=== PATIENT | female | born 1940 | race Caucasian/White ===

== ENCOUNTER 2018-05-21 22:21 | Inpatient (IN) | payer MEDICARE, SELFPAY ==
[2018-05-21 22:23] VITALS: BP 121/101; PULSE 150; RESP 17; TEMP 36.8; O2SAT 96; BMI 28.7
--- NOTE | 2018-05-21 22:44 | EKG12_ITS ---
Test Reason : A-FIB Blood Pressure : / mmHG Vent. Rate : 164 BPM Atrial Rate : 192 BPM P-R Int : 000 ms QRS Dur : 086 ms QT Int : 296 ms P-R-T Axes : 000 088 215 degrees QTc Int : 488 ms Atrial fibrillation with rapid ventricular response ST & T wave abnormality, consider inferior ischemia Abnormal ECG Confirmed by ANTHONY WARD, LAMONT ([id number]), subeditor BETTY JORDAN ([id number]) on 05/24/2018 9:06:59 AM Referred By: LOBO Confirmed By:LAMONT CRUZ MD
--- NOTE | 2018-05-21 22:50 | RAD_ITS ---
STUDY: X-RAY CHEST REASON FOR EXAM: Female, 77 years old. Open heart surgery on April 16, tachycardia, A. fib TECHNIQUE: PA and lateral views of the chest. COMPARISON: None. FINDINGS: orchid grower leads are seen. There is a right perihilar infiltrate. There is a small left-sided effusion. The heart size is borderline. Status post sternotomy changes are seen. An atrial appendage clip is noted. Normal mediastinum and elana. Normal visualized pulmonary arteries. Normal visualized aortic arch and descending thoracic aorta. Normal visualized thoracic spine. Normal visualized ribs, clavicles, and shoulders. There is no demonstrated abnormality of the visualized soft tissue structures of the upper abdomen. RAD/Chest PA and Lateral IMPRESSION: Small left-sided effusion. Borderline heart size. Status post sternotomy. An atrial appendage clip is seen. Right perihilar infiltrate. Electronically Signed: Corky Harper MD at 23:01 EST , Service support ,
[2018-05-21] MEDS: dilTIAZem 25 MG/5 ML Vial 20 MG IV BOLUS (22:56)
--- NOTE | 2018-05-21 23:00 | ED.RN ---
no old EKG on record
[2018-05-21 23:15] LABS: Absolute Lymphocyte Count 0.97 X10^3/ul (0.83-4.51); Basophil# 0.12 X10^3/uL; Eosinophil# 0.25 X10^3/uL; Eosinophils% 4.2 % (0-5); Hematocrit 32.3 % (37-47); Lymphocyte # 0.97 X10^3/ul (4.0); Lymphocyte % 16.2 % (19-41); Mean Corpuscular Hgb 27.9 pg (27.0-32.0); Mean Corpuscular Volume 90.2 fL (81-99); Mean Platelet Vol. 9.5 fl (6.2-12.0); Monocyte# 0.64 X10^3/uL; Monocyte% 10.7 % (0-10); Neutrophil # 4.01 X10^3/uL (2.7-7.7); Neutrophil % 66.7 % (47-70); Platelet Count 265 K/mm3 (150-450); RBC Distribution Width CV 14.7 % (11.6-14.6); RBC Distribution Width SD 47.4 fl (35.1-43.9); Red Blood Count 3.58 M/mm3 (4.2-5.4)
[2018-05-21 23:16] LABS: POSITIVE COUNT NO; POSITIVE DIFFERENTIAL NO; POSITIVE MORPHOLOGY NO
[2018-05-21 23:21] LABS: Anion Gap 12 (5-15); BUN 13 mg/dL (7-18); BUN/Creat Ratio 15.9 RATIO (10-20); Calcium,Total 8.5 mg/dL (8.5-10.1); Chloride 109 mmol/L (98-107); Creatinine, Serum 0.82 mg/dL (0.55-1.02); EST Glomerular Filtration Rate 72 mL/min (>60); Est Glom Filt Rate - Afr Amer 88 mL/min (>60); Estimated Creatinine Clearance 46.88 ml/min; Glucose 129 mg/dL (74-106); Potassium 3.8 mmol/L (3.5-5.1); Sodium Level 144 mmol/L (136-145)
--- NOTE | 2018-05-21 23:47 | ED.RN ---
Dr. Perez paged for cardiology
--- NOTE | 2018-05-21 23:57 | HP.PCM_ITS ---
Problem List (1) Atrial fibrillation with RVR Status: Acute (2) History of mitral valve replacement Status: Chronic (3) History of maze procedure Status: Chronic (4) Pneumonia Status: Acute Qualifiers: Laterality: right Lung location: middle lobe of lung History of Present Illness Date of Admission: 05/21/18 Chief Complaint: rapid heart rate The patient is a 77 year old female patient with a recent history for mitral valve replacement and maze procedure with atrial appendage ligation presents to the ER with a rapid heart rate. Despite recent increase in amiodarone to 200mg TID she has a rate of 160 at presentation. With IV Cardizem she has responded and rate is now 100. She denies chest pain. She is a little short of breath, chest x ray reveal a right hilar infiltrate. ER physician has requested admission for observation for rate control. Her merchant mill utility worker in [place] request staring po Cardizem in addition to her amiodarone. Initial Troponin is slightly elevate but recent heart cath was negative for CAD. Past Medical History Past Medical History (Chronic Problems): Chronic Problems History of mitral valve replacement (Chronic) History of maze procedure (Chronic) Allergies No Known Allergies Allergy (Verified 05/21/18 22:23) Home Medications: Ambulatory Orders Medication Instructions Recorded Acetaminophen 650 mg PO Q4H PRN 05/21/18 Albuterol IH (ProAir) [Proair Hfa 2 puff INHALATION Q6H PRN PRN 05/21/18 (SP)Vent Pts] Alendronate Sodium [Fosamax] 70 mg PO QWEEK 05/21/18 Amiodarone HCl 200 mg PO TID 05/21/18 Ascorbic Acid [Vitamin C] 500 mg PO BID 05/21/18 Aspirin [Aspirin, Baby] 81 mg PO DAILY@0800 05/21/18 Atorvastatin Calcium 10 mg PO DAILY 05/21/18 Biotin/Silicon Diox/l-Cysteine 1 each PO DAILY 05/21/18 [[place] Matrix 5000 ER Tablet] Ishaan/D3/Mag11/Zinc/Filler Mixer/Papito/Bor 1 each PO DAILY 05/21/18 [Caltrate 600+D Plus Tablet] Cholecalciferol (VIT D3) [Vitamin 1,000 unit PO DAILY 05/21/18 D] Cholestyramine (with Sugar) 4 gm PO DAILY 05/21/18 [Questran Packet] Cyanocobalamin (Vitamin B-12) 1,000 mcg SL DAILY 05/21/18 [Vitamin B-12] Ferrous Sulfate 325 mg PO BIDCM 05/21/18 Gabapentin [Neurontin] 200 mg PO QHS 05/21/18 Melatonin 3 mg PO QHS PRN PRN 05/21/18 Metoprolol Tartrate 25 mg PO Q8H 05/21/18 Multivitamin [Multivitamins] 1 each PO DAILY 05/21/18 Pramipexole Di-HCl [Pramipexole 0.25 mg PO QHS 05/21/18 Dihydrochloride] Warfarin [Coumadin (PBKC)] 0.5 mg PO MOWEFR 05/21/18 Surgical History: - - mitral valve Smoking Status: Never smoker - *Family History Maternal History Items: No pertinent history Review of Systems Constitutional: Reports: Fatigue. Denies: Chills, Fever, Weight Change HEENT: Denies: Head Aches, Sinus Congestion, Sinus Drainage Cardiovascular: Reports: Palpitations. Denies: Chest Pain Respiratory: Reports: Cough, Shortness of Breath. Denies: Shortness of breath at rest, Sputum production Gastrointestinal: Denies: Abdominal Pain, Nausea, Vomiting Genitourinary: Denies: Dysuria Musculoskeletal: Denies: Joint Pain, Joint Tenderness Skin: Denies: Rash, Wounds Neurological: Denies: Numbness, Tingling, Focal weakness Psychiatric: Denies: Anxiety, Depression, Homicidal Ideations, Suicidal Ideations Hematologic/ Lymphatic: Denies: Easy Bruising, Easy Bleeding VTE Information - Inpt Only VTE Present on Admission: No VTE Mechan Device Prophylaxis: None VTE Pharm Prophylaxis ordered?: Yes Patient Problems: Active and Suspected Problems Atrial fibrillation with RVR (Acute) Pneumonia (Acute) - Physical Exam General: Alert, Oriented x3, Cooperative HEENT: Atraumatic, Normocephalic Neck: Supple Lungs: Clear to auscultation, Normal air movement, No rhonchi, No wheeze, No rales Cardiovascular: Normal S1, Normal S2, Irregular Rate, Tachycardic Abdomen: Bowel Sounds Present, Soft Extremities: No edema, Capillary Refill Less than 3 Seconds Skin: No rashes Musculoskeletal: No Tenderness to Palpation of Joints or Extremities Neurological: Neuro grossly intact Psych/Mental Status: Normal Affect, Appropriate Vital Signs Temp Pulse Resp BP Pulse Ox 98.3 F 150 H 17 121/101 H 96 05/21/18 22:23 05/21/18 22:23 05/21/18 22:23 05/21/18 22:23 05/21/18 22:23 Oxygen Delivery Method Room Air Weight: 156 lb 15.506 oz Body Mass Index (BMI) 28.7 Laboratory Tests Past 24 Hrs 05/21/18 05/21/18 22:40 22:40 WBC 6.0 RBC 3.58 L Hgb 10.0 L Hct 32.3 L MCV 90.2 MCH 27.9 MCHC 31.0 L RDW 14.7 H RDW Differential 47.4 H Plt Count 265 MPV 9.5 Immature Gran % (Auto) 0.200 Neut % (Auto) 66.7 Lymph % (Auto) 16.2 L [place] % (Auto) 10.7 H Eos % (Auto) 4.2 Baso % (Auto) 2.0 H Absolute Neuts (auto) 4.0 Absolute Lymphs (auto) 0.97 Total Counted Not Reportable Sodium 144 Potassium 3.8 Chloride 109 H Carbon Dioxide 23.0 Anion Gap 12 BUN 13 Creatinine 0.82 Estim Creat Clear Calc 46.88 Est GFR (MDRD) Af Amer 88 Est GFR (MDRD) Non-Af 72 BUN/Creatinine Ratio 15.9 Glucose 129 H Calcium 8.5 Troponin I 0.091 H Assessment/Plan All Active Problems Atrial fibrillation with RVR (Acute) Pneumonia (Acute) Plan 1. Pneumonia-- IV Rocephin and Azithromycin, DuoNeb inh q 4hrs prn 2. Atrial fibrillation with RVR-- monitor for rate control, continue po Cardizem at DC, cycle cardiac enzymes, cbc,bmp in am- continue anticoagulation 3. TIRSH --use home CPAP 4. DVT prohylaxis -- cont antcoagulation DC home tomorrow on PO antibiotics and po Cardizem if rate controlled Code Visit OBSV E&M: 92318 Initial observation care L2
[2018-05-22] VITALS (16 sets, daily range): BP systolic 101–110; BP diastolic 52–70; PULSE 94–130; RESP 17–18; TEMP 36.8–37.4; O2SAT 95–99; BMI 27.0; BMI 27.1
--- NOTE | 2018-05-22 00:04 | ED.DCSUM_ITS ---
- ER Visit Summary Date of Service: 05/22/18 Chief Complaint: A. fib History of Present Illness: The patient is a 77 F who presents with atrial fibrillation. This is a relatively new diagnosis from March. On April 16 she had a mitral valve replacement, Maze procedure, atrial appendage ligation. Her sister is an RN and has been monitoring her heart rate at home. Over the last 9-10 days she has been having some tachycardia with heart rates of 110-120s occasionally as high as 130. Tonight she was as high as 140s and 150s. She spoke to the nurse practitioner for her surgeon who also contacted Dr. Perez her tying in machine operator who increased her amiodarone from 200 mg a day to 200 mg 3 times a day. Patient denies any chest pain or shortness of breath. She has had some mild rhinorrhea and nonproductive cough no fevers chest pain shortness of breath vomiting. Physical Examination: Heart rate 150 vitals otherwise unremarkable Moist mucous membranes Heart irregularly irregular and tachycardic without murmur Lungs are clear and I do not appreciate rales rhonchi wheezes Abdomen soft Extremities nontender without edema Alert Test Results: EKG shows atrial fibrillation at a rate of 164, no old to compare to. Labs notable for troponin of 0.09. Chest x-ray shows a small left-sided effusion atrial appendage clip and right perihilar infiltrate. Emergency Department Course and Treatment: Patient was given 20 mg of IV Cardizem and on reevaluation is rate controlled in the 80s and 90s. Her troponin is likely just rate related. She has no known coronary disease. Given focal infiltrate I do suspect this is pneumonia although she does not have fever or leukocytosis. She does have some cough. She was given IV Zosyn and vancomycin for healthcare associated pneumonia. I spoke to Dr. Perez, her tying in machine operator. He recommended starting low-dose Cardizem at 30 mg twice a day. I spoke to the hospitalist as given she also possibly has pneumonia and slight elevation of her troponin I felt that she she will at least have serial enzymes and be monitored. Treatment Plan: [] Disposition: Admit Impression: A. fib with RVR HCAP Indeterminate troponin This note was generated with [employer] dictation software. It may contain incorrect words, spelling, and punctuation that were not noted in review of the chart prior to signing ED Disposition - Plan for ED Patient: Chief Complaint: Palpitations Referrals: Town Doctor,Out of [Primary Care Provider] -
[2018-05-22 00:22] LABS: Prothrombin Time (Protime)PT. 22.6 SECONDS (11.7-14.9)
[2018-05-22] MEDS: dilTIAZem 30 MG Tablet PO ×3 (00:32→22:15)
[2018-05-22] MEDS: Vancomycin IV 1,000 MG/200 ML BAG 200 MG IV (00:34)
[2018-05-22 04:49] LABS: International Normalized Ratio 2.2; Prothrombin Time (Protime)PT. 24.4 SECONDS (11.7-14.9)
[2018-05-22 05:10] LABS: ALB/GLOB Ratio 0.8 RATIO (0.9-2.4); AST(SGOT) 7 U/L (15-37); Alanine Aminotransfer ALT/SGPT 17 U/L (13-56); Albumin, Serum 2.5 g/dL (3.2-5.0); Alkaline Phosphatase 99 U/L (45-117); Anion Gap 9 (5-15); BUN 11 mg/dL (7-18); BUN/Creat Ratio 14.4 RATIO (10-20); Calcium,Total 8.1 mg/dL (8.5-10.1); Chloride 110 mmol/L (98-107); Cholesterol 60 mg/dL (200); Creatinine, Serum 0.76 mg/dL (0.55-1.02); EST Glomerular Filtration Rate 78 mL/min (>60); Est Glom Filt Rate - Afr Amer 95 mL/min (>60); Estimated Creatinine Clearance 38.44 ml/min; Globulin 3.3 g/dL (2.2-4.2); Glucose 90 mg/dL (74-106); High Density Lipoprotein 28 mg/dL; Potassium 3.3 mmol/L (3.5-5.1); Protein, Total 5.8 g/dL (6.4-8.2); Sodium Level 143 mmol/L (136-145); Triglycerides 57 mg/dL; Very Low Density Lipoprotein 11 mg/dL (5-40)
[2018-05-22] MEDS: 0.9% NaCl Peripheral Flush Adult/Peds IV ×4 (06:17→21:20)
[2018-05-22] MEDS: Amiodarone 200 MG Tablet PO ×3 (06:17→22:15)
[2018-05-22] MEDS: Metoprolol Tartrate 25 MG Tablet PO ×3 (06:17→22:15)
[2018-05-22] MEDS: Aspirin 81 MG TAB.CHEW PO (09:09)
[2018-05-22] MEDS: Cyanocobalamin 500 MCG Tablet 1000 MCG PO (09:10)
[2018-05-22] MEDS: Ferrous Sulfate 325 MG Tablet PO ×2 (09:10→16:39)
[2018-05-22] MEDS: Multivitamins,Therapeutic Tablet 1 TABLET PO (09:10)
[2018-05-22] MEDS: Calcium Carb/Vitamin D 1 TABLET Tablet PO (09:10)
--- NOTE | 2018-05-22 10:45 | NURSING ---
Patient reports that IV site is painful with antibiotic infusing. Attempted to restart x1 without success. Patient is a difficult IV start. CHIEF PRIVACY OFFICER to attempt IV start. Per CHIEF PRIVACY OFFICER, attempted to start IV x2 without success. Another RN to attempt IV start. Second CHIEF PRIVACY OFFICER attempted IV start without success.
--- NOTE | 2018-05-22 11:15 | NURSING ---
supervisor testing in PCU. Attempted IV start. See IV round for documentation
[2018-05-22] MEDS: Ascorbic Acid 500 MG Tablet PO ×2 (11:36→21:20)
[2018-05-22 11:40] LABS: Magnesium 1.9 mg/dL (1.6-2.6)
--- NOTE | 2018-05-22 12:13 | CM.UR ---
Met face to face with patient. Introduced myself and explained my role. Verbally consented to assessment. DENIES any needs anticipated. Then mentioned that she needs new cpap mask because she switched insurance at beginning of year. States that the old company is not in-network with new insurance. Printed list of companies for her. States that she has been thinking about advance directives but haven't done anything as of yet. DECLINES any information or forms at this time. Instructed that case management will remain available should anything arise. verb understanding. Lelia Jang RN, CCM.
[2018-05-22] MEDS: Ceftriaxone 1 GM/50 ML BAG IV (12:41)
[2018-05-22] MEDS: Cholestyramine/Sucrose 4 GM/PACKET PO (12:45)
--- NOTE | 2018-05-22 18:06 | PCM.PN.HOSP ---
Patient Problems: Active and Suspected Problems Atrial fibrillation with RVR (Acute) Pneumonia (Acute) Subjective: Patient was seen and examined. Remains still in A. fib with RVR. Off Cardizem drip. BP remains relatively low. Denies chest pain, SOB, palpitations. Vitals/I&O's: Vital Signs Temp Pulse Resp BP Pulse Ox 98.2 F 106 H 17 108/60 95 05/22/18 13:59 05/22/18 15:09 05/22/18 13:59 05/22/18 13:59 05/22/18 13:59 Oxygen Flow Rate (L/min) 2 Oxygen Delivery Method Room Air Weight: 67.1 kg Body Mass Index (BMI) 27.0 Intake and Output for Last 24 Hours 05/20/18 05/21/18 05/22/18 23:59 23:59 23:59 Intake Total 1644 / 1644 Balance 1644 / 1644 General: Alert, Oriented x3, Cooperative, No apparent distress HEENT: Atraumatic, PERRLA, EOMI, Normocephalic Oral: Moist Mucosa Neck: Supple, No JVD, Negative Carotid Bruits Lungs: Clear to auscultation, Normal air movement Cardiovascular: Regular Rhythm, Normal S1, Normal S2, Irregular Rate, Murmur - 3/6 holosystolic murmur, - - midsternal scar, healing, scabbing, no erythema Abdomen: Bowel Sounds Present, Soft, Non Tender, Non-Distended, No Hepato-splenomegaly Extremities: No edema Skin: No rashes, No breakdown Musculoskeletal: No Tenderness to Palpation of Joints or Extremities Lymphatic: No Cervical, Supraclavicular, or Inguinal Adenopathy Neurological: Cranial nerves II-XII grossly intact, Neuro grossly intact Psych/Mental Status: Normal Affect, Appropriate Laboratory Results 05/21/18 22:40: WBC 6.0, RBC 3.58 L, Hgb 10.0 L, Hct 32.3 L, MCV 90.2, MCH 27.9, MCHC 31.0 L, RDW 14.7 H, RDW Differential 47.4 H, Plt Count 265, MPV 9.5, Immature Gran % (Auto) 0.200, Neut % (Auto) 66.7, Lymph % (Auto) 16.2 L, [place] % (Auto) 10.7 H, Eos % (Auto) 4.2, Baso % (Auto) 2.0 H, Absolute Neuts (auto) 4.0, Absolute Lymphs (auto) 0.97, Total Counted Not Reportable 05/21/18 22:40: Sodium 144, Potassium 3.8, Chloride 109 H, Carbon Dioxide 23.0, Anion Gap 12, BUN 13, Creatinine 0.82, Estim Creat Clear Calc 46.88, Est GFR (MDRD) Af Amer 88, Est GFR (MDRD) Non-Af 72, BUN/Creatinine Ratio 15.9, Glucose 129 H, Calcium 8.5, Troponin I 0.091 H 05/21/18 22:40: PT 22.6 H, INR 2.0 05/22/18 02:00: Troponin I 0.106 H 05/22/18 04:30: PT 24.4 H, INR 2.2 05/22/18 04:30: Sodium 143, Potassium 3.3 L, Chloride 110 H, Carbon Dioxide 24.0, Anion Gap 9, BUN 11, Creatinine 0.76, Estim Creat Clear Calc 38.44, Est GFR (MDRD) Af Amer 95, Est GFR (MDRD) Non-Af 78, BUN/Creatinine Ratio 14.4, Glucose 90, Calcium 8.1 L, Total Bilirubin 0.60, AST 7 L, ALT 17, Alkaline Phosphatase 99, Total Protein 5.8 L, Albumin 2.5 L, Globulin 3.3, Albumin/Globulin Ratio 0.8 L, Triglycerides 57, Cholesterol 60, LDL Cholesterol 21, VLDL Cholesterol 11, HDL Cholesterol 28 L 05/22/18 04:30: Troponin I 0.094 H 05/22/18 04:30: Magnesium 1.9 Current Medications Acetaminophen (Tylenol) 650 mg PO Q4H PRN PRN PRN Reason: PAIN Albuterol Sulfate (Ventolin Aerosols) 2.5 mg INHALATION Q4H PRN PRN Amiodarone HCl (Cordarone) 200 mg PO TID [facility] Last Admin: 05/22/18 14:09 Dose: 200 mg Ascorbic Acid (Vitamin C) 500 mg PO BID [facility] Last Admin: 05/22/18 11:36 Dose: 500 mg Aspirin (Aspirin, Baby) 81 mg PO DAILY@0800 [facility] Last Admin: 05/22/18 09:09 Dose: 81 mg Atorvastatin Calcium (Lipitor) 10 mg PO QHS [facility] Calcium/Vitamin D (Os-Ishaan 500mg + D) [facility] Last Admin: 05/22/18 09:10 Dose: 1 tablet Cholecalciferol (Vitamin D) 1,000 unit PO DAILY [facility] Last Admin: 05/22/18 09:10 Dose: 1,000 unit Cholestyramine Resin (Questran 4gm Packet) 4 gm PO DAILY [facility] Last Admin: 05/22/18 12:45 Dose: 4 gm Cyanocobalamin (Vitamin B12) 1,000 mcg PO DAILY [facility] Last Admin: 05/22/18 09:10 Dose: 1,000 mcg Diltiazem HCl (Cardizem) 30 mg PO BID [facility] Last Admin: 05/22/18 09:10 Dose: 30 mg Ferrous Sulfate (Ferrous Sulfate) [facility] Last Admin: 05/22/18 16:39 Dose: 325 mg Gabapentin (Neurontin) 200 mg PO QHS [facility] Vancomycin HCl (Vancomycin) 1,000 mg in 200 mls @ 200 mls/hr IV X1 [facility] Last Admin: 05/22/18 00:34 Dose: 200 mls/hr Azithromycin 500 mg/ Dextrose 255 mls @ 250 mls/hr IV Q24 [facility] Last Admin: 05/22/18 09:18 Dose: 250 mls/hr Ceftriaxone Sodium (Rocephin) 1 gm in 50 mls @ 100 mls/hr IV Q24 [facility] Last Admin: 05/22/18 12:41 Dose: 100 mls/hr Magnesium Hydroxide (Milk Of Magnesia) 30 ml PO DAILY PRN PRN Reason: Constipation Melatonin (Melatonin) 3 mg PO QHS PRN PRN Metoprolol Tartrate (Lopressor (Beta Bobby)) 25 mg PO Q8 [facility] Last Admin: 05/22/18 14:09 Dose: 25 mg Multivitamins (Multivitamin) 1 tablet PO DAILY@0800 [facility] Last Admin: 05/22/18 09:10 Dose: 1 tablet Nutritional Formula (Lactose Free) (Ensure Enlive) 120 ml PO 4X/DAY [facility] Last Admin: 05/22/18 16:39 Dose: 120 ml Pramipexole Dihydrochloride (Mirapex) 0.25 mg PO QHS [facility] Sodium Chloride () 5 - 15 ml IV UD PRN PRN Reason: SALINE FLUSH Last Admin: 05/22/18 09:17 Dose: 10 ml Warfarin Sodium (Coumadin (Pbkc)) 0.5 mg PO MoWeFr@1700 [facility] Medical Necessity - Tobacco Use Smoking Status: Never smoker Assessment/Plan All Active Problems Atrial fibrillation with RVR (Acute) Pneumonia (Acute) 77 year old female patient with a recent history for mitral valve replacement and maze procedure with atrial appendage ligation presents to the ER with a rapid heart rate. 1. A. fib with RVR, HR not well controlled, INR is therapeutic, recently started on cardizem, will continue on amiodarone, metoprolol, if HR is still uncontrolled, will consult cardiology 2. CAP without sepsis, POA, on ceftriaxone and azithromycin, will continue same 3. s/p recent mitral valve replacement as well as maze procedure and atrial appendage ligation 4. TRISH on CPAP 5. Hypertension, controlled, will continue to monitor. 6. DVT ppx - INR is therapeutic on warfarin Code Visit Inpatient E&M: 01799 Subs Hosp L2
--- NOTE | 2018-05-22 18:15 | PN_ITS ---
Patient Problems: Active and Suspected Problems Atrial fibrillation with RVR (Acute) Pneumonia (Acute) Subjective: Patient was seen and examined. Remains still in A. fib with RVR. Off Cardizem drip. BP remains relatively low. Denies chest pain, SOB, palpitations. Vitals/I&O's: Vital Signs Temp Pulse Resp BP Pulse Ox 98.2 F 106 H 17 108/60 95 05/22/18 13:59 05/22/18 15:09 05/22/18 13:59 05/22/18 13:59 05/22/18 13:59 Oxygen Flow Rate (L/min) 2 Oxygen Delivery Method Room Air Weight: 67.1 kg Body Mass Index (BMI) 27.0 Intake and Output for Last 24 Hours 05/20/18 05/21/18 05/22/18 23:59 23:59 23:59 Intake Total 1644 / 1644 Balance 1644 / 1644 General: Alert, Oriented x3, Cooperative, No apparent distress HEENT: Atraumatic, PERRLA, EOMI, Normocephalic Oral: Moist Mucosa Neck: Supple, No JVD, Negative Carotid Bruits Lungs: Clear to auscultation, Normal air movement Cardiovascular: Regular Rhythm, Normal S1, Normal S2, Irregular Rate, Murmur - 3/6 holosystolic murmur, - - midsternal scar, healing, scabbing, no erythema Abdomen: Bowel Sounds Present, Soft, Non Tender, Non-Distended, No Hepato- splenomegaly Extremities: No edema Skin: No rashes, No breakdown Musculoskeletal: No Tenderness to Palpation of Joints or Extremities Lymphatic: No Cervical, Supraclavicular, or Inguinal Adenopathy Neurological: Cranial nerves II-XII grossly intact, Neuro grossly intact Psych/Mental Status: Normal Affect, Appropriate Laboratory Results 05/21/18 22:40: WBC 6.0, RBC 3.58 L, Hgb 10.0 L, Hct 32.3 L, MCV 90.2, MCH 27.9, MCHC 31.0 L, RDW 14.7 H, RDW Differential 47.4 H, Plt Count 265, MPV 9.5, Immature Gran % (Auto) 0.200, Neut % (Auto) 66.7, Lymph % (Auto) 16.2 L, [place] % (Auto) 10.7 H, Eos % (Auto) 4.2, Baso % (Auto) 2.0 H, Absolute Neuts (auto) 4.0, Absolute Lymphs (auto) 0.97, Total Counted Not Reportable 05/21/18 22:40: Sodium 144, Potassium 3.8, Chloride 109 H, Carbon Dioxide 23.0, Anion Gap 12, BUN 13, Creatinine 0.82, Estim Creat Clear Calc 46.88, Est GFR (MDRD) Af Amer 88, Est GFR (MDRD) Non-Af 72, BUN/Creatinine Ratio 15.9, Glucose 129 H, Calcium 8.5, Troponin I 0.091 H 05/21/18 22:40: PT 22.6 H, INR 2.0 05/22/18 02:00: Troponin I 0.106 H 05/22/18 04:30: PT 24.4 H, INR 2.2 05/22/18 04:30: Sodium 143, Potassium 3.3 L, Chloride 110 H, Carbon Dioxide 24.0, Anion Gap 9, BUN 11, Creatinine 0.76, Estim Creat Clear Calc 38.44, Est GFR (MDRD) Af Amer 95, Est GFR (MDRD) Non-Af 78, BUN/Creatinine Ratio 14.4, Glucose 90, Calcium 8.1 L, Total Bilirubin 0.60, AST 7 L, ALT 17, Alkaline Phosphatase 99, Total Protein 5.8 L, Albumin 2.5 L, Globulin 3.3, Albumin/Globulin Ratio 0.8 L, Triglycerides 57, Cholesterol 60, LDL Cholesterol 21, VLDL Cholesterol 11, HDL Cholesterol 28 L 05/22/18 04:30: Troponin I 0.094 H 05/22/18 04:30: Magnesium 1.9 Current Medications Acetaminophen (Tylenol) 650 mg PO Q4H PRN PRN PRN Reason: PAIN Albuterol Sulfate (Ventolin Aerosols) 2.5 mg INHALATION Q4H PRN PRN Amiodarone HCl (Cordarone) 200 mg PO TID [facility] Last Admin: 05/22/18 14:09 Dose: 200 mg Ascorbic Acid (Vitamin C) 500 mg PO BID [facility] Last Admin: 05/22/18 11:36 Dose: 500 mg Aspirin (Aspirin, Baby) 81 mg PO DAILY@0800 [facility] Last Admin: 05/22/18 09:09 Dose: 81 mg Atorvastatin Calcium (Lipitor) 10 mg PO QHS [facility] Calcium/Vitamin D (Os-Ishaan 500mg + D) [facility] Last Admin: 05/22/18 09:10 Dose: 1 tablet Cholecalciferol (Vitamin D) 1,000 unit PO DAILY [facility] Last Admin: 05/22/18 09:10 Dose: 1,000 unit Cholestyramine Resin (Questran 4gm Packet) 4 gm PO DAILY [facility] Last Admin: 05/22/18 12:45 Dose: 4 gm Cyanocobalamin (Vitamin B12) 1,000 mcg PO DAILY [facility] Last Admin: 05/22/18 09:10 Dose: 1,000 mcg Diltiazem HCl (Cardizem) 30 mg PO BID [facility] Last Admin: 05/22/18 09:10 Dose: 30 mg Ferrous Sulfate (Ferrous Sulfate) [facility] Last Admin: 05/22/18 16:39 Dose: 325 mg Gabapentin (Neurontin) 200 mg PO QHS [facility] Vancomycin HCl (Vancomycin) 1,000 mg in 200 mls @ 200 mls/hr IV X1 [facility] Last Admin: 05/22/18 00:34 Dose: 200 mls/hr Azithromycin 500 mg/ Dextrose 255 mls @ 250 mls/hr IV Q24 [facility] Last Admin: 05/22/18 09:18 Dose: 250 mls/hr Ceftriaxone Sodium (Rocephin) 1 gm in 50 mls @ 100 mls/hr IV Q24 [facility] Last Admin: 05/22/18 12:41 Dose: 100 mls/hr Magnesium Hydroxide (Milk Of Magnesia) 30 ml PO DAILY PRN PRN Reason: Constipation Melatonin (Melatonin) 3 mg PO QHS PRN PRN Metoprolol Tartrate (Lopressor (Beta Bobby)) 25 mg PO Q8 [facility] Last Admin: 05/22/18 14:09 Dose: 25 mg Multivitamins (Multivitamin) 1 tablet PO DAILY@0800 [facility] Last Admin: 05/22/18 09:10 Dose: 1 tablet Nutritional Formula (Lactose Free) (Ensure Enlive) 120 ml PO 4X/DAY [facility] Last Admin: 05/22/18 16:39 Dose: 120 ml Pramipexole Dihydrochloride (Mirapex) 0.25 mg PO QHS [facility] Sodium Chloride () 5 - 15 ml IV UD PRN PRN Reason: SALINE FLUSH Last Admin: 05/22/18 09:17 Dose: 10 ml Warfarin Sodium (Coumadin (Pbkc)) 0.5 mg PO MoWeFr@1700 [facility] Medical Necessity - Tobacco Use Smoking Status: Never smoker Assessment/Plan All Active Problems Atrial fibrillation with RVR (Acute) Pneumonia (Acute) 77 year old female patient with a recent history for mitral valve replacement and maze procedure with atrial appendage ligation presents to the ER with a rapid heart rate. 1. A. fib with RVR, HR not well controlled, INR is therapeutic, recently started on cardizem, will continue on amiodarone, metoprolol, if HR is still uncontrolled, will consult cardiology 2. CAP without sepsis, POA, on ceftriaxone and azithromycin, will continue same 3. s/p recent mitral valve replacement as well as maze procedure and atrial appendage ligation 4. TRISH on CPAP 5. Hypertension, controlled, will continue to monitor. 6. DVT ppx - INR is therapeutic on warfarin Code Visit Inpatient E&M: 13169 Subs Hosp L2
[2018-05-22] MEDS: Atorvastatin Calcium 10 MG Tablet PO (21:20)
[2018-05-22] MEDS: Pramipexole Di-HCl 0.25 MG Tablet PO (21:20)
[2018-05-22] MEDS: Gabapentin 100 MG Capsule 200 MG PO (21:20)
[2018-05-22] MEDS: MELATONIN 3 MG TABLET PO (21:29)
[2018-05-23] VITALS (31 sets, daily range): BP systolic 86–109; BP diastolic 49–73; PULSE 72–132; RESP 15–26; TEMP 36.6–37.4; O2SAT 92–99
[2018-05-23] MEDS: Amiodarone 200 MG Tablet PO ×3 (06:47→21:14)
[2018-05-23] MEDS: Metoprolol Tartrate 25 MG Tablet PO (06:47)
[2018-05-23 08:52] LABS: Anion Gap 8 (5-15); BUN 9 mg/dL (7-18); Calcium,Total 8.3 mg/dL (8.5-10.1); Chloride 111 mmol/L (98-107); Creatinine, Serum 0.69 mg/dL (0.55-1.02); EST Glomerular Filtration Rate 88 mL/min (>60); Est Glom Filt Rate - Afr Amer 107 mL/min (>60); Estimated Creatinine Clearance 38.44 ml/min; Glucose 98 mg/dL (74-106); Potassium 3.9 mmol/L (3.5-5.1); Sodium Level 141 mmol/L (136-145)
[2018-05-23 08:59] LABS: Prothrombin Time (Protime)PT. 31.6 SECONDS (11.7-14.9)
[2018-05-23] MEDS: Aspirin 81 MG TAB.CHEW PO (09:21)
[2018-05-23] MEDS: Ferrous Sulfate 325 MG Tablet PO ×2 (09:22→17:48)
[2018-05-23] MEDS: Multivitamins,Therapeutic Tablet 1 TABLET PO (09:22)
[2018-05-23] MEDS: Ceftriaxone 1 GM/50 ML BAG IV (09:22)
[2018-05-23] MEDS: dilTIAZem 30 MG Tablet PO (09:22)
[2018-05-23] MEDS: Calcium Carb/Vitamin D 1 TABLET Tablet PO (09:22)
[2018-05-23] MEDS: Ascorbic Acid 500 MG Tablet PO ×2 (09:23→21:14)
[2018-05-23] MEDS: Cyanocobalamin 500 MCG Tablet 1000 MCG PO (09:23)
[2018-05-23] MEDS: 0.9% NaCl Peripheral Flush Adult/Peds IV ×2 (09:31→11:56)
--- NOTE | 2018-05-23 10:41 | PCM.CONS.C ---
Reason for Consult Date of Consultation: 05/23/18 Reason for Consultation: Shortness of breath and palpitations History of Present Illness: The patient is a 77 year old F who presented to the emergency room with shortness of breath as well as palpitations. She had been in his stable state of health until late last year where she underwent a cardiac catheterization which demonstrated no obstructive coronary disease, mitral valve replacement, Maze procedure for atrial fibrillation, left atrial appendage ligation. She had been monitored at home and over the last 9-10 days she has been having some tachycardia with elevated heart rates. They spoke to the nurse practitioner for the surgeon as well as a burner tender who suggested increasing her amiodarone as well as adding diltiazem to her regimen. She denies any fever or paroxysmal nocturnal dyspnea or pedal edema or leg swelling. She has not had any neck arm or jaw discomfort suggest angina. She was seen in the emergency room and was noted to be in atrial fibrillation with a rapid ventricular response rate she was already on Coumadin therapeutically anticoagulated and she was admitted and diltiazem added to her regimen. This morning however she still noted to be fairly tachycardic. Past Medical History Allergies/Adverse Reactions: Allergies No Known Allergies Allergy (Verified 05/21/18 22:23) Home Medications: Ambulatory Orders Medication Instructions Recorded Acetaminophen 650 mg PO Q4H PRN 05/21/18 Albuterol IH (ProAir) [Proair Hfa 2 puff INHALATION Q6H PRN PRN 05/21/18 (SP)Vent Pts] Alendronate Sodium [Fosamax] 70 mg PO QWEEK 05/21/18 Amiodarone HCl 200 mg PO TID 05/21/18 Ascorbic Acid [Vitamin C] 500 mg PO BID 05/21/18 Aspirin [Aspirin, Baby] 81 mg PO DAILY@0800 05/21/18 Atorvastatin Calcium 10 mg PO DAILY 05/21/18 Biotin/Silicon Diox/l-Cysteine 1 each PO DAILY 05/21/18 [Crestline Matrix 5000 ER Tablet] Ishaan/D3/Mag11/Zinc/Consolidator/Papito/Bor 1 each PO DAILY 05/21/18 [Caltrate 600+D Plus Tablet] Cholecalciferol (VIT D3) [Vitamin 1,000 unit PO DAILY 05/21/18 D] Cholestyramine (with Sugar) 4 gm PO DAILY 05/21/18 [Questran Packet] Cyanocobalamin (Vitamin B-12) 1,000 mcg SL DAILY 05/21/18 [Vitamin B-12] Ferrous Sulfate 325 mg PO BIDCM 05/21/18 Gabapentin [Neurontin] 200 mg PO QHS 05/21/18 Melatonin 3 mg PO QHS PRN PRN 05/21/18 Metoprolol Tartrate 25 mg PO Q8H 05/21/18 Multivitamin [Multivitamins] 1 each PO DAILY 05/21/18 Pramipexole Di-HCl [Pramipexole 0.25 mg PO QHS 05/21/18 Dihydrochloride] Warfarin [Coumadin ([facility])] 0.5 mg PO MOWEFR 05/21/18 Past Medical History (Chronic Problems): Chronic Problems History of mitral valve replacement (Chronic) History of maze procedure (Chronic) Surgical History: - - mitral valve replacement with left atrial appendage ligation and maze procedure - *Family History Maternal History Items: No pertinent history Smoking Status: Never smoker Alcohol: None Drugs: None Review of Systems - Review of Systems General: Reports: Fatigue. Denies: Fever, Night Sweats HEENT: Denies: Vision Change Cardiovascular: Reports: Shortness of Breath, Palpitations. Denies: Chest Discomfort, Orthopnea, PND, Peripheral Edema, Lightheadedness, Dizziness, Near Syncope, Syncope Respiratory: Denies: Cough, Sputum Production, Hemoptysis Gastrointestinal: Denies: Hematemesis, Hematochezia, Melena Genitourinary: Denies: Dysuria, Hematuria Muscoloskeletal: Denies: Myalgias Skin: Denies: Rash Neurological: Denies: Dizziness Psychiatric: Denies: Anxiety Endocrine: Denies: Unexplained Weight Loss Hematologic/ Lymphatic: Denies: Anemia Subjectve: Pleasant lady in no apparent distress Objective: Vital Signs Temp Pulse Resp BP Pulse Ox 98.1 F 114 H 16 107/51 L 97 05/23/18 09:08 05/23/18 09:08 05/23/18 09:08 05/23/18 09:08 05/23/18 09:08 Oxygen Flow Rate (L/min) 2 Oxygen Delivery Method Room Air Weight: 147 lb 14.883 oz Body Mass Index (BMI) 27.0 Intake and Output for Last 24 Hours 05/21/18 05/22/18 05/23/18 23:59 23:59 23:59 Intake Total 1866 Balance 1866 General: Awake, Alert, Oriented x 3 HEENT: PERRL, EOMI, Sclera Non Icteric Neck: Supple, Good ROM, No Lymph Node Enlargement Lungs: Clear to auscultation Cardiovascular: Irregular Rhythm, Normal S1, Normal S2, No Rubs, No Gallops, [place] Prosthetic S1 Vascular: No Carotid Bruits, Normal Femoral Pulses, Normal Radial Pulses, Normal Dorsalis Pedal Pulse, Normal Posterior Tibial Pulses Abdomen: Bowel Sounds Present, Soft, Non Tender, No HSM, No Organomegaly Extremities: No Cyanosis, No Clubbing, No edema Lymphatic: No Lymph Node Enlargement Neurological: No Focal Motor or Sensory Deficit Psych/Mental Status: Appropriate 05/22/18 04:30: Magnesium 1.9 05/23/18 08:20: Sodium 141, Potassium 3.9, Chloride 111 H, Carbon Dioxide 22.0, Anion Gap 8, BUN 9, Creatinine 0.69, Est GFR (MDRD) Af Amer 107, Est GFR (MDRD) Non-Af 88, BUN/Creatinine Ratio 13.0, Glucose 98, Calcium 8.3 L 05/23/18 08:20: PT 31.6 H, INR 3.0 Rhythm: EKG: Atrial fibrillation with a rapid ventricular response rate Assessment/Plan 1. Atrial fibrillation with a rapid ventricular response rate The rapid ventricular response rate appears to be fairly new onset. She is on amiodarone which will be continued Anticoagulation will also be continued She will remain on the beta-edson at 50 mg twice a day I would recommend long-acting diltiazem 120 mg twice a day Hopefully will be able to slow down her heart rate for her to be discharged and followed up as an outpatient with her primary burner tender. 2. Mitral valve replacement She appears to be fairly stable with respect to her mitral valve replacement. She will continue with antibiotic prophylaxis. 3. Mild shortness of breath I suspect the above is secondary to mild heart failure due to the atrial fibrillation. Would recommend low-dose Lasix x1 Thank you for allowing me to participate in the care of your patient. Please don't hesitate to call if any issues arise
--- NOTE | 2018-05-23 10:46 | CON.PCM_ITS ---
Reason for Consult Date of Consultation: 05/23/18 Reason for Consultation: Shortness of breath and palpitations History of Present Illness: The patient is a 77 year old F who presented to the emergency room with shortness of breath as well as palpitations. She had been in his stable state of health until late last year where she underwent a cardiac catheterization which demonstrated no obstructive coronary disease, mitral valve replacement, Maze procedure for atrial fibrillation, left atrial appendage ligation. She had been monitored at home and over the last 9-10 days she has been having some tachycardia with elevated heart rates. They spoke to the nurse practitioner for the surgeon as well as a bag bailer who suggested increasing her amiodarone as well as adding diltiazem to her regimen. She denies any fever or paroxysmal nocturnal dyspnea or pedal edema or leg swelling. She has not had any neck arm or jaw discomfort suggest angina. She was seen in the emergency room and was noted to be in atrial fibrillation with a rapid ventricular response rate she was already on Coumadin therapeutically anticoagulated and she was admitted and diltiazem added to her regimen. This morning however she still noted to be fairly tachycardic. Past Medical History Allergies/Adverse Reactions: Allergies No Known Allergies Allergy (Verified 05/21/18 22:23) Home Medications: Ambulatory Orders Medication Instructions Recorded Acetaminophen 650 mg PO Q4H PRN 05/21/18 Albuterol IH (ProAir) [Proair Hfa 2 puff INHALATION Q6H PRN PRN 05/21/18 (SP)Vent Pts] Alendronate Sodium [Fosamax] 70 mg PO QWEEK 05/21/18 Amiodarone HCl 200 mg PO TID 05/21/18 Ascorbic Acid [Vitamin C] 500 mg PO BID 05/21/18 Aspirin [Aspirin, Baby] 81 mg PO DAILY@0800 05/21/18 Atorvastatin Calcium 10 mg PO DAILY 05/21/18 Biotin/Silicon Diox/l-Cysteine 1 each PO DAILY 05/21/18 [Lynn Matrix 5000 ER Tablet] Ishaan/D3/Mag11/Zinc/Accounts Payable Administrator/Papito/Bor 1 each PO DAILY 05/21/18 [Caltrate 600+D Plus Tablet] Cholecalciferol (VIT D3) [Vitamin 1,000 unit PO DAILY 05/21/18 D] Cholestyramine (with Sugar) 4 gm PO DAILY 05/21/18 [Questran Packet] Cyanocobalamin (Vitamin B-12) 1,000 mcg SL DAILY 05/21/18 [Vitamin B-12] Ferrous Sulfate 325 mg PO BIDCM 05/21/18 Gabapentin [Neurontin] 200 mg PO QHS 05/21/18 Melatonin 3 mg PO QHS PRN PRN 05/21/18 Metoprolol Tartrate 25 mg PO Q8H 05/21/18 Multivitamin [Multivitamins] 1 each PO DAILY 05/21/18 Pramipexole Di-HCl [Pramipexole 0.25 mg PO QHS 05/21/18 Dihydrochloride] Warfarin [Coumadin ([facility])] 0.5 mg PO MOWEFR 05/21/18 Past Medical History (Chronic Problems): Chronic Problems History of mitral valve replacement (Chronic) History of maze procedure (Chronic) Surgical History: - - mitral valve replacement with left atrial appendage ligation and maze procedure - *Family History Maternal History Items: No pertinent history Smoking Status: Never smoker Alcohol: None Drugs: None Review of Systems - Review of Systems General: Reports: Fatigue. Denies: Fever, Night Sweats HEENT: Denies: Vision Change Cardiovascular: Reports: Shortness of Breath, Palpitations. Denies: Chest Discomfort, Orthopnea, PND, Peripheral Edema, Lightheadedness, Dizziness, Near Syncope, Syncope Respiratory: Denies: Cough, Sputum Production, Hemoptysis Gastrointestinal: Denies: Hematemesis, Hematochezia, Melena Genitourinary: Denies: Dysuria, Hematuria Muscoloskeletal: Denies: Myalgias Skin: Denies: Rash Neurological: Denies: Dizziness Psychiatric: Denies: Anxiety Endocrine: Denies: Unexplained Weight Loss Hematologic/ Lymphatic: Denies: Anemia Subjectve: Pleasant lady in no apparent distress Objective: Vital Signs Temp Pulse Resp BP Pulse Ox 98.1 F 114 H 16 107/51 L 97 05/23/18 09:08 05/23/18 09:08 05/23/18 09:08 05/23/18 09:08 05/23/18 09:08 Oxygen Flow Rate (L/min) 2 Oxygen Delivery Method Room Air Weight: 147 lb 14.883 oz Body Mass Index (BMI) 27.0 Intake and Output for Last 24 Hours 05/21/18 05/22/18 05/23/18 23:59 23:59 23:59 Intake Total 1866 Balance 1866 General: Awake, Alert, Oriented x 3 HEENT: PERRL, EOMI, Sclera Non Icteric Neck: Supple, Good ROM, No Lymph Node Enlargement Lungs: Clear to auscultation Cardiovascular: Irregular Rhythm, Normal S1, Normal S2, No Rubs, No Gallops, [place]itus Prosthetic S1 Vascular: No Carotid Bruits, Normal Femoral Pulses, Normal Radial Pulses, Normal Dorsalis Pedal Pulse, Normal Posterior Tibial Pulses Abdomen: Bowel Sounds Present, Soft, Non Tender, No HSM, No Organomegaly Extremities: No Cyanosis, No Clubbing, No edema Lymphatic: No Lymph Node Enlargement Neurological: No Focal Motor or Sensory Deficit Psych/Mental Status: Appropriate 05/22/18 04:30: Magnesium 1.9 05/23/18 08:20: Sodium 141, Potassium 3.9, Chloride 111 H, Carbon Dioxide 22.0, Anion Gap 8, BUN 9, Creatinine 0.69, Est GFR (MDRD) Af Amer 107, Est GFR (MDRD) Non-Af 88, BUN/Creatinine Ratio 13.0, Glucose 98, Calcium 8.3 L 05/23/18 08:20: PT 31.6 H, INR 3.0 Rhythm: EKG: Atrial fibrillation with a rapid ventricular response rate Assessment/Plan 1. Atrial fibrillation with a rapid ventricular response rate * The rapid ventricular response rate appears to be fairly new onset. She is on amiodarone which will be continued * Anticoagulation will also be continued * She will remain on the beta-edson at 50 mg twice a day * I would recommend long-acting diltiazem 120 mg twice a day * Hopefully will be able to slow down her heart rate for her to be discharged and followed up as an outpatient with her primary bag bailer. * 2. Mitral valve replacement * She appears to be fairly stable with respect to her mitral valve replacement. * She will continue with antibiotic prophylaxis. * 3. Mild shortness of breath * I suspect the above is secondary to mild heart failure due to the atrial fibrillation. * Would recommend low-dose Lasix x1 * * Thank you for allowing me to participate in the care of your patient. Please don't hesitate to call if any issues arise
--- NOTE | 2018-05-23 10:48 | PCM.PROGNOTE ---
<Carey Andrade - Last Filed: 05/23/18 11:03> Patient Problems: Active and Suspected Problems Atrial fibrillation with RVR (Acute) Pneumonia (Acute) Subjective: Patient seen and examined. Denies current complaints. Denies chest pain, palpitations. - Physical Exam General: Alert, Oriented x3, Cooperative HEENT: Atraumatic, PERRLA, EOMI, Normocephalic Neck: Supple, No JVD, Negative Carotid Bruits Lungs: Clear to auscultation, Normal air movement Cardiovascular: Murmur, Tachycardic, - - Atrial fibrillation Abdomen: Bowel Sounds Present, Soft, Non Tender, Non-Distended Extremities: No clubbing, No cyanosis, No edema, Capillary Refill Less than 3 Seconds Skin: No rashes, No breakdown, - - Midsternal scar with scabbing Musculoskeletal: No Tenderness to Palpation of Joints or Extremities Neurological: Cranial nerves II-XII grossly intact, Neuro grossly intact Psych/Mental Status: Normal Affect, Appropriate Vital Signs Temp Pulse Resp BP Pulse Ox 98.1 F 114 H 16 107/51 L 97 05/23/18 09:08 05/23/18 09:08 05/23/18 09:08 05/23/18 09:08 05/23/18 09:08 Oxygen Flow Rate (L/min) 2 Oxygen Delivery Method Room Air Weight: 147 lb 14.883 oz Body Mass Index (BMI) 27.0 Intake and Output for Last 24 Hours 05/21/18 05/22/18 05/23/18 23:59 23:59 23:59 Intake Total 1867 / 1867 Balance 1867 / 186 Laboratory Tests Past 24 Hrs 05/22/18 05/23/18 05/23/18 04:30 08:20 08:20 PT 31.6 H INR 3.0 Sodium 141 Potassium 3.9 Chloride 111 H Carbon Dioxide 22.0 Anion Gap 8 BUN 9 Creatinine 0.69 Estim Creat Clear Calc 38.44 Est GFR (MDRD) Af Amer 107 Est GFR (MDRD) Non-Af 88 BUN/Creatinine Ratio 13.0 Glucose 98 Calcium 8.3 L Magnesium 1.9 Medical Necessity - Tobacco Use Smoking Status: Never smoker Assessment/Plan All Active Problems Atrial fibrillation with RVR (Acute) Pneumonia (Acute) 1. Atrial fibrillation with RVR-heart rate remains poorly controlled. Cardiology consulted. Continue amiodarone, metoprolol, Cardizem with further adjustments per cardiology. Patient was on amiodarone and metoprolol prior to admission. Oral Cardizem is new. Continue Coumadin, INR therapeutic. Check TSH. Patient's primary desk interviewer is in [place], Dr. Perez. She recently re-located to [place]. 2. Community-acquired pneumonia-continue IV Rocephin and azithromycin. Send sputum for culture. Patient is fairly asymptomatic. Chest x-ray admission with small left-sided effusion. Avoid aerosols given tachycardia. 3. Recent mitral valve replacement/maze procedure/atrial appendage ligation 4. Indeterminate troponin- suspect demand ischemia 2/ #1. Patient denies chest pain. 5. TRISH on CPAP 6. Hypertension-stable, continue current regimen. DVT prophylaxis- coumadin This patient was seen by Carey Andrade NP-C under the supervision of Dr. Saucedo. <Romina Saucedo - Last Filed: 05/23/18 12:02> - Physical Exam Vital Signs Temp Pulse Resp BP Pulse Ox 98.1 F 110 H 16 107/51 L 97 05/23/18 09:08 05/23/18 11:04 05/23/18 09:08 05/23/18 09:08 05/23/18 09:08 Oxygen Flow Rate (L/min) 2 Oxygen Delivery Method Room Air Weight: 67.1 kg Body Mass Index (BMI) 27.0 Intake and Output for Last 24 Hours 05/21/18 05/22/18 05/23/18 23:59 23:59 23:59 Intake Total 1866 Balance 1866 Laboratory Tests Past 24 Hrs 05/23/18 05/23/18 05/23/18 08:20 08:20 08:20 PT 31.6 H INR 3.0 Sodium 141 Potassium 3.9 Chloride 111 H Carbon Dioxide 22.0 Anion Gap 8 BUN 9 Creatinine 0.69 Estim Creat Clear Calc 38.44 Est GFR (MDRD) Af Amer 107 Est GFR (MDRD) Non-Af 88 BUN/Creatinine Ratio 13.0 Glucose 98 Calcium 8.3 L TSH 0.63 Assessment/Plan This patient was seen in conjunction with Carey Andrade NP. I have independently interviewed and examined the patient and reviewed pertinent historical, laboratory, and other data. Please refer to her note for patient's presentation, findings, and recommendations. Patient was seen and examined. She denied any chest pain or dizziness or shortness of breath. No acute events overnight. Remains in atrial fibrillation, heart rate ranging between 105 -110 Vitals were reviewed -stable Labs reviewed-Hypokalemia is resolved, INR 3.0 Physical Exam: Gen: Comfortable, not pale, not jaundiced, alert oriented x3 CVS:HS I +II, regular, no murmurs RESP: CTA, midsternal incisional wound healing, scabbing seen GI: BS present and normal, soft, nontender, no ballotable organs EXT:Trace bilateral leg edema Meds reviewed ASSESSMENT: 1. A. fib with RVR, 2. recent maze procedure, status post recent atrial appendage ligation, status post recent mitral valve replacement 3. CAP 4. Hypokalemia, resolved 5. TRISH on CPap 6. Hypertension, relatively hypotensive Plan: Cardiology consult appreciated Continue antibiotics(day 3) Labs in am Code Visit Inpatient E&M: 73673 Subs Hosp L2
[2018-05-23 11:32] LABS: Thyroid Stim Hormone (TSH) 0.63 uIU/mL (0.358-3.74)
[2018-05-23] MEDS: Furosemide 40 MG/4 ML Vial IV (11:53)
[2018-05-23] MEDS: dilTIAZem CD 120 MG Capsule PO (11:53)
[2018-05-23] MEDS: dilTIAZem 25 MG/5 ML Vial 20 MG IV BOLUS ×2 (11:53→19:03)
[2018-05-23] MEDS: Cholestyramine/Sucrose 4 GM/PACKET PO (14:49)
--- NOTE | 2018-05-23 17:51 | NURSING ---
Prayer blanket provided to patient.
[2018-05-23] MEDS: Gabapentin 100 MG Capsule 200 MG PO (21:14)
[2018-05-23] MEDS: Atorvastatin Calcium 10 MG Tablet PO (21:14)
[2018-05-23] MEDS: Pramipexole Di-HCl 0.25 MG Tablet PO (21:14)
[2018-05-23] MEDS: MELATONIN 3 MG TABLET PO (21:15)
[2018-05-23] MEDS: Metoprolol Tartrate 50 MG Tablet PO (22:31)
[2018-05-24] VITALS (23 sets, daily range): BP systolic 93–105; BP diastolic 51–78; PULSE 62–84; RESP 15–22; TEMP 36.4–36.9; O2SAT 91–96
[2018-05-24] MEDS: Amiodarone 200 MG Tablet PO ×2 (06:07→14:30)
[2018-05-24 06:34] LABS: Prothrombin Time (Protime)PT. 31.4 SECONDS (11.7-14.9)
[2018-05-24 06:38] LABS: Anion Gap 8 (5-15); BUN 10 mg/dL (7-18); BUN/Creat Ratio 13.8 RATIO (10-20); Calcium,Total 7.9 mg/dL (8.5-10.1); Chloride 111 mmol/L (98-107); Creatinine, Serum 0.72 mg/dL (0.55-1.02); EST Glomerular Filtration Rate 83 mL/min (>60); Est Glom Filt Rate - Afr Amer 101 mL/min (>60); Estimated Creatinine Clearance 38.44 ml/min; Glucose 82 mg/dL (74-106); Potassium 3.6 mmol/L (3.5-5.1); Sodium Level 142 mmol/L (136-145)
--- NOTE | 2018-05-24 07:23 | PCM.PN.CARD ---
Subjectve: Patient seen and evaluated. He says that feels better this morning but is afraid to move around because she thinks her heart rate will go up Objective: Vital Signs Temp Pulse Resp BP Pulse Ox 98.4 F 76 17 98/54 L 93 05/24/18 07:00 05/24/18 07:00 05/24/18 07:00 05/24/18 07:00 05/24/18 07:00 Oxygen Flow Rate (L/min) 2 Oxygen Delivery Method Room Air Weight: 147 lb 14.883 oz Body Mass Index (BMI) 27.0 Intake and Output for Last 24 Hours 05/22/18 05/23/18 05/24/18 23:59 23:59 23:59 Intake Total 1866 918.4 / 918.4 32.6 / 32.6 Balance 1866 918.4 / 918.4 32.6 / 32.6 General: Awake, Alert, Oriented x 3 HEENT: PERRL, EOMI, Sclera Non Icteric Neck: Supple, Good ROM, No Lymph Node Enlargement Lungs: Clear to auscultation Cardiovascular: Irregular Rhythm, Normal S1, Normal S2, No Murmurs, No Rubs, No Gallops Vascular: No Carotid Bruits, Normal Femoral Pulses, Normal Radial Pulses, Normal Dorsalis Pedal Pulse, Normal Posterior Tibial Pulses Abdomen: Bowel Sounds Present, Soft, Non Tender, No HSM, No Organomegaly Extremities: No Cyanosis, No Clubbing, No edema Neurological: No Focal Motor or Sensory Deficit Psych/Mental Status: Appropriate 05/23/18 08:20: Sodium 141, Potassium 3.9, Chloride 111 H, Carbon Dioxide 22.0, Anion Gap 8, BUN 9, Creatinine 0.69, Est GFR (MDRD) Af Amer 107, Est GFR (MDRD) Non-Af 88, BUN/Creatinine Ratio 13.0, Glucose 98, Calcium 8.3 L 05/23/18 08:20: PT 31.6 H, INR 3.0 05/24/18 05:54: PT 31.4 H, INR 3.0 05/24/18 05:54: Sodium 142, Potassium 3.6, Chloride 111 H, Carbon Dioxide 23.0, Anion Gap 8, BUN 10, Creatinine 0.72, Est GFR (MDRD) Af Amer 101, Est GFR (MDRD) Non-Af 83, BUN/Creatinine Ratio 13.8, Glucose 82, Calcium 7.9 L Rhythm: EKG: ECHO: Stress Test: Cardiac Cath: PCI: CT Surgery: Holter monitor: EPS: PPM: CXR: Chest CT Scan: Medical Necessity - Tobacco Use Smoking Status: Never smoker Assessment/Plan 1. Atrial fibrillation with a rapid ventricular response rate The rapid ventricular response rate appears to be fairly new onset. She is on amiodarone which will be continued Anticoagulation will also be continued She will remain on the beta-edson increasing to 75 mg twice a day I would recommend long-acting diltiazem 120 mg twice a day Hopefully will be able to slow down her heart rate for her to be discharged and followed up as an outpatient with her primary pathology laboratory technologist. 2. Mitral valve replacement She appears to be fairly stable with respect to her mitral valve replacement. She will continue with antibiotic prophylaxis. 3. Mild shortness of breath I suspect the above is secondary to mild heart failure due to the atrial fibrillation. Would recommend low-dose Lasix x1 Will reevaluate in the afternoon. If patient is doing much better may be able to be discharged to follow-up with her primary pathology laboratory technologist and surgeon tomorrow Thank you for allowing me to participate in the care of your patient. Please don't hesitate to call if any issues arise
[2018-05-24] MEDS: Metoprolol Tartrate 50 MG Tablet 75 MG PO (08:14)
[2018-05-24] MEDS: Aspirin 81 MG TAB.CHEW PO (08:15)
[2018-05-24] MEDS: Ferrous Sulfate 325 MG Tablet PO (08:15)
[2018-05-24] MEDS: Calcium Carb/Vitamin D 1 TABLET Tablet PO (08:16)
[2018-05-24] MEDS: Multivitamins,Therapeutic Tablet 1 TABLET PO (08:16)
[2018-05-24] MEDS: dilTIAZem CD 120 MG Capsule PO (09:45)
[2018-05-24] MEDS: Ascorbic Acid 500 MG Tablet PO (09:46)
[2018-05-24] MEDS: Cyanocobalamin 500 MCG Tablet 1000 MCG PO (09:46)
[2018-05-24] MEDS: Cholestyramine/Sucrose 4 GM/PACKET PO (11:02)
[2018-05-24] MEDS: 0.9% NaCl Peripheral Flush Adult/Peds IV (11:03)
--- NOTE | 2018-05-24 11:15 | CASEMGMT ---
Addendum entered by Melly Alberto 05/31/18 09:22: Late entry below was actually from 05/24/18 Florian NARANJO CM Original Note: Addendum entered by Melly Alberto 05/31/18 09:20: Late entry [id number]-This MARCELLA LIZAMA received call from [facility] stating that pt was not currently with [facility] and they would need order transferred for cpap to be able to get a mask for pt. Pt is updated at this time and aware that she needs to transfer cpap order to [facility] at this time, voices understanding. Pt provided with contact information. Pt voice no further questions/concerns/needs at this time. Florian NARANJO CM Original Note: Per weekend MARCELLA LIZAMA, Maribel Jang, pt needs new mask for her cpap and order signed and faxed to [facility] at this time per green sheet. Florian NARANJO CM
--- NOTE | 2018-05-24 11:19 | PCM.DC ---
- Discharge Diagnoses Current Active Problems: Current Active and Chronic Problems Atrial fibrillation with RVR (Acute) History of mitral valve replacement (Chronic) History of maze procedure (Chronic) Pneumonia (Acute) You will use the following diet at home:: Cardiac Discharge Activity: Return to Normal Activity Call your doctor if you observe: Shortness of breath, Dizziness, Fainting spells, Increased palpitations (irregular heartbeat) Allergies/Adverse Reactions: Allergies No Known Allergies Allergy (Verified 05/21/18 22:23) Medications to take at Discharge Acetaminophen 650 mg PO Q4H PRN 05/21/18 Albuterol IH (ProAir) [Proair Hfa] 2 puff INHALATION Q6H PRN PRN 05/21/18 Alendronate Sodium [Fosamax] 70 mg PO QWEEK 05/21/18 Amiodarone HCl 200 mg PO TID 05/21/18 Ascorbic Acid [Vitamin C] 500 mg PO BID 05/21/18 Aspirin [Aspirin, Baby] 81 mg PO DAILY@0800 05/21/18 Atorvastatin Calcium 10 mg PO DAILY 05/21/18 Biotin/Silicon Diox/l-Cysteine [Paco Matrix 5000 ER Tablet] 1 each PO DAILY 05/21/18 Ishaan/D3/Mag11/Zinc/Senior Construction Manager/Papito/Bor [Caltrate 600+D Plus Tablet] 1 each PO DAILY 05/21/18 Cholecalciferol (VIT D3) [Vitamin D3] 1,000 unit PO DAILY 05/21/18 Cholestyramine (with Sugar) [Questran Packet] 4 gm PO DAILY 05/21/18 Cyanocobalamin (Vitamin B-12) [Vitamin B-12] 1,000 mcg SL DAILY 05/21/18 Ferrous Sulfate 325 mg PO BIDCM 05/21/18 Gabapentin [Neurontin] 200 mg PO QHS 05/21/18 Melatonin 3 mg PO QHS PRN PRN 05/21/18 Multivitamin [Multivitamins] 1 each PO DAILY 05/21/18 Pramipexole Di-HCl [Pramipexole Dihydrochloride] 0.25 mg PO QHS 05/21/18 Warfarin [Coumadin] 0.5 mg PO MOWEFR 05/21/18 Amox/Clavulanate Tablet [Augmentin Tablet] 875 mg PO Q12H #8 tablet 05/24/18 Diltiazem CD [Cardizem CD] 120 mg PO Q12 #60 capsule 05/24/18 Metoprolol Tartrate [Lopressor (beta edson)] 75 mg PO BID #120 tablet 05/24/18 The following prescriptions were given: Amox/Clavulanate Tablet [Augmentin Tablet] 875 mg PO Q12H #8 tablet Diltiazem CD [Cardizem CD] 120 mg PO Q12 #60 capsule Metoprolol Tartrate [Lopressor (beta edson)] 75 mg PO BID #120 tablet Primary Care Physician: [facility] Doctor,Out of [Primary Care Provider] - Please follow up with your Primary Care Physician in: 1 Week Test Results: Test results from this visit will be discussed in further detail at your follow-up appointment, if applicable. Please Follow Up With: Dr. Perez - Primary Diver Tender When: 1 Week Proposed Discharge Date: 05/24/18
--- NOTE | 2018-05-24 11:22 | DCINST_ITS ---
- Discharge Diagnoses Current Active Problems: Current Active and Chronic Problems Atrial fibrillation with RVR (Acute) History of mitral valve replacement (Chronic) History of maze procedure (Chronic) Pneumonia (Acute) You will use the following diet at home:: Cardiac Discharge Activity: Return to Normal Activity Call your doctor if you observe: Shortness of breath, Dizziness, Fainting spells, Increased palpitations (irregular heartbeat) Allergies/Adverse Reactions: Allergies No Known Allergies Allergy (Verified 05/21/18 22:23) Medications to take at Discharge Acetaminophen 650 mg PO Q4H PRN 05/21/18 Albuterol IH (ProAir) [Proair Hfa] 2 puff INHALATION Q6H PRN PRN 05/21/18 Alendronate Sodium [Fosamax] 70 mg PO QWEEK 05/21/18 Amiodarone HCl 200 mg PO TID 05/21/18 Ascorbic Acid [Vitamin C] 500 mg PO BID 05/21/18 Aspirin [Aspirin, Baby] 81 mg PO DAILY@0800 05/21/18 Atorvastatin Calcium 10 mg PO DAILY 05/21/18 Biotin/Silicon Diox/l-Cysteine [Paco Matrix 5000 ER Tablet] 1 each PO DAILY 05/21/18 Ishaan/D3/Mag11/Zinc/Research Greenhouse Supervisor/Papito/Bor [Caltrate 600+D Plus Tablet] 1 each PO DAILY 05/21/18 Cholecalciferol (VIT D3) [Vitamin D3] 1,000 unit PO DAILY 05/21/18 Cholestyramine (with Sugar) [Questran Packet] 4 gm PO DAILY 05/21/18 Cyanocobalamin (Vitamin B-12) [Vitamin B-12] 1,000 mcg SL DAILY 05/21/18 Ferrous Sulfate 325 mg PO BIDCM 05/21/18 Gabapentin [Neurontin] 200 mg PO QHS 05/21/18 Melatonin 3 mg PO QHS PRN PRN 05/21/18 Multivitamin [Multivitamins] 1 each PO DAILY 05/21/18 Pramipexole Di-HCl [Pramipexole Dihydrochloride] 0.25 mg PO QHS 05/21/18 Warfarin [Coumadin] 0.5 mg PO MOWEFR 05/21/18 Amox/Clavulanate Tablet [Augmentin Tablet] 875 mg PO Q12H #8 tablet 05/24/18 Diltiazem CD [Cardizem CD] 120 mg PO Q12 #60 capsule 05/24/18 Metoprolol Tartrate [Lopressor (beta edson)] 75 mg PO BID #120 tablet 05/24/18 The following prescriptions were given: Amox/Clavulanate Tablet [Augmentin Tablet] 875 mg PO Q12H #8 tablet Diltiazem CD [Cardizem CD] 120 mg PO Q12 #60 capsule Metoprolol Tartrate [Lopressor (beta edson)] 75 mg PO BID #120 tablet Primary Care Physician: [facility] Doctor,Out of [Primary Care Provider] - Please follow up with your Primary Care Physician in: 1 Week Test Results: Test results from this visit will be discussed in further detail at your follow- up appointment, if applicable. Please Follow Up With: Dr. Perez - Primary Lock Installer When: 1 Week Proposed Discharge Date: 05/24/18
--- NOTE | 2018-05-24 12:14 | PCM.DC.SUM ---
<Carey Andrade - Last Filed: 05/24/18 12:27> Discharge Date and Diagnosis Date of Admission: 05/21/18 Date of Discharge: 05/24/18 - Primary Discharge Diagnosis Active and Suspected Problems 1. Atrial fibrillation with RVR 2. Community-acquired pneumonia, without sepsis 3. Recent mitral valve replacement/maze procedure/atrial appendage ligation 4. Indeterminate troponin, suspected demand ischemia secondary to #1 5. TRISH on CPAP 6. Hypertension - Secondary Discharge Diagnosis Chronic Problems History of mitral valve replacement (Chronic) History of maze procedure (Chronic) Hospital Course and Treatment Imaging Results: Diagnostic Data Chest X-Ray 05/21/18 22:50 IMPRESSION: Small left-sided effusion. Borderline heart size. Status post sternotomy. An atrial appendage clip is seen. Right perihilar infiltrate. Electronically Signed: Corky Harper MD at 23:01 EST , Service support , Dr. Gibson- Cardiology Operations: None Procedures: None Summary of Care Provided: The patient is a 77 year old F admitted 05/21/2018 due to rapid heart rate. Noted to be atrial fibrillation with RVR. 1. Atrial fibrillation with RVR-Cardiology consulted. Continue Coumadin, INR therapeutic. Patient's primary risk consulting treasury director is in Dr. Ana Hair. She recently re-located to [place]. Patient was placed on IV Cardizem drip with improvement in heart rate. Per cardiology recommendations, patient will be discharged on previous amiodarone regimen of 200 mg p.o. 3 times daily. Home metoprolol regimen increased to 75 mg twice daily. Patient placed on long-acting Cardizem CD 120 mg p.o. twice daily. Heart rate well controlled. Patient will follow up with primary risk consulting treasury director in 1 week. Follow-up with primary care physician in 1 week as well. 2. Community-acquired pneumonia-received IV Rocephin and azithromycin X3 days. Patient is fairly asymptomatic. Chest x-ray admission with small left-sided effusion. Discharged on Augmentin 875 mg p.o. twice daily to complete 7 days of antibiotic therapy. 3. Recent mitral valve replacement/maze procedure/atrial appendage ligation 4. Indeterminate troponin- suspect demand ischemia 2/2 #1. Patient denies chest pain. 5. TRISH on CPAP 6. Hypertension-stable, continue current regimen. General: Alert, Oriented x3, Cooperative HEENT: Atraumatic, PERRLA, EOMI, Normocephalic Neck: Supple, No JVD, Negative Carotid Bruits Lungs: Clear to auscultation, Normal air movement Cardiovascular: Murmur, Atrial fibrillation- rate controlled Abdomen: Bowel Sounds Present, Soft, Non Tender, Non-Distended Extremities: No clubbing, No cyanosis, No edema, Capillary Refill Less than 3 Seconds Skin: No rashes, No breakdown, - - Midsternal scar with scabbing Musculoskeletal: No Tenderness to Palpation of Joints or Extremities Neurological: Cranial nerves II-XII grossly intact, Neuro grossly intact Psych/Mental Status: Normal Affect, Appropriate Patient seen and examined prior to discharge. Physical assessment as noted above. Patient is stable for discharge with follow up recommendations as noted above. This patient was seen by TAN Mcnally under the supervision of Dr. Saucedo. - Physical Exam Vital Signs Temp Pulse Resp BP Pulse Ox 98.1 F 62 18 96/56 L 96 05/24/18 11:00 05/24/18 11:03 05/24/18 11:00 05/24/18 11:00 05/24/18 11:00 Oxygen Flow Rate (L/min) 2 Oxygen Delivery Method Room Air Weight: 147 lb 14.883 oz Body Mass Index (BMI) 27.0 Intake and Output for Last 24 Hours 05/22/18 05/23/18 05/24/18 23:59 23:59 23:59 Intake Total 1866 918.4 / 918.4 32.6 / 32.6 Balance 1866 / 1866 918.4 / 918.4 32.6 / 32.6 Laboratory Tests Past 24 Hrs 05/24/18 05/24/18 05:54 05:54 PT 31.4 H INR 3.0 Sodium 142 Potassium 3.6 Chloride 111 H Carbon Dioxide 23.0 Anion Gap 8 BUN 10 Creatinine 0.72 Estim Creat Clear Calc 38.44 Est GFR (MDRD) Af Amer 101 Est GFR (MDRD) Non-Af 83 BUN/Creatinine Ratio 13.8 Glucose 82 Calcium 7.9 L Discharge Diet: Low fat/ Low Cholesterol Discharge Activity: Return to Normal Activity Call your doctor if you observe: Shortness of breath, Dizziness, Fainting spells, Increased palpitations (irregular heartbeat) Home Medications: Medications to take at Discharge Acetaminophen 650 mg PO Q4H PRN 05/21/18 Albuterol IH (ProAir) [Proair Hfa] 2 puff INHALATION Q6H PRN PRN 05/21/18 Alendronate Sodium [Fosamax] 70 mg PO QWEEK 05/21/18 Amiodarone HCl 200 mg PO TID 05/21/18 Ascorbic Acid [Vitamin C] 500 mg PO BID 05/21/18 Aspirin [Aspirin, Baby] 81 mg PO DAILY@0800 05/21/18 Atorvastatin Calcium 10 mg PO DAILY 05/21/18 Biotin/Silicon Diox/l-Cysteine [Paco Matrix 5000 ER Tablet] 1 each PO DAILY 05/21/18 Ishaan/D3/Mag11/Zinc/Code Clerk/Papito/Bor [Caltrate 600+D Plus Tablet] 1 each PO DAILY 05/21/18 Cholecalciferol (VIT D3) [Vitamin D3] 1,000 unit PO DAILY 05/21/18 Cholestyramine (with Sugar) [Questran Packet] 4 gm PO DAILY 05/21/18 Cyanocobalamin (Vitamin B-12) [Vitamin B-12] 1,000 mcg SL DAILY 05/21/18 Ferrous Sulfate 325 mg PO BIDCM 05/21/18 Gabapentin [Neurontin] 200 mg PO QHS 05/21/18 Melatonin 3 mg PO QHS PRN PRN 05/21/18 Multivitamin [Multivitamins] 1 each PO DAILY 05/21/18 Pramipexole Di-HCl [Pramipexole Dihydrochloride] 0.25 mg PO QHS 05/21/18 Warfarin [Coumadin] 0.5 mg PO MOWEFR 05/21/18 Amox/Clavulanate Tablet [Augmentin Tablet] 875 mg PO Q12H #8 tablet 05/24/18 Diltiazem CD [Cardizem CD] 120 mg PO Q12 #60 capsule 05/24/18 Metoprolol Tartrate [Lopressor (beta edson)] 75 mg PO BID #120 tablet 05/24/18 Following Prescrptions Were Given to Patient: Amox/Clavulanate Tablet [Augmentin Tablet] 875 mg PO Q12H #8 tablet Diltiazem CD [Cardizem CD] 120 mg PO Q12 #60 capsule Metoprolol Tartrate [Lopressor (beta edson)] 75 mg PO BID #120 tablet Primary Care Physician: Maximo Doctor,Out of [Primary Care Provider] - Please follow up with your Primary Care Physician in: 1 Week Please Follow Up With: Dr. Perez - Primary Ceramic Saw Tender When: 1 Week Disposition: Home Minutes spent on discharge:: 35 Patient Condition:: Stable Medical Necessity - Tobacco Use Smoking Status: Never smoker Meaningful Use Info Meaningful Use Diagnoses (Choose all that apply): None applicable <Paintsricardo,[place] - Last Filed: 05/24/18 14:38> Discharge Date and Diagnosis - Secondary Discharge Diagnosis Chronic Problems History of mitral valve replacement (Chronic) History of maze procedure (Chronic) Hospital Course and Treatment Summary of Care Provided: This patient was seen in conjunction with Carey Andrade NP. I have independently interviewed and examined the patient and reviewed pertinent historical, laboratory, and other data. Please refer to her note for patient's presentation, findings, and recommendations. 77 year old female patient with a recent history for mitral valve replacement and maze procedure with atrial appendage ligation admitted to the hospital with Devin. emi with RVR. Patient's HR initially improved with cardiuzem drip, she was transitioned to cardizem po. HR remained still uncontrolled. Cardiology was consulted, changes were made to her medications. She continued to be in RVR and was managed subsequently with cardizem drip. She was discharged on adjusted rate control medications. Subjective: Patient was seen and examined. Denies any fever or chills or SOB. Objective: General: Alert, Oriented x3, Cooperative, No apparent distress HEENT: Atraumatic, PERRLA, EOMI, Normocephalic Oral: Moist Mucosa Neck: Supple, No JVD, Negative Carotid Bruits Lungs: Clear to auscultation, Normal air movement Cardiovascular: Regular Rhythm, Normal S1, Normal S2, Irregular Rate, Murmur - 3/6 holosystolic murmur, - - midsternal scar, healing, scabbing, no erythema Abdomen: Bowel Sounds Present, Soft, Non Tender, Non-Distended, No Hepato-splenomegaly Extremities: No edema Skin: No rashes, No breakdown Musculoskeletal: No Tenderness to Palpation of Joints or Extremities Lymphatic: No Cervical, Supraclavicular, or Inguinal Adenopathy Neurological: Cranial nerves II-XII grossly intact, Neuro grossly intact Psych/Mental Status: Normal Affect, Appropriate - Physical Exam Vital Signs Temp Pulse Resp BP Pulse Ox 98.1 F 69 16 95/53 L 95 05/24/18 11:00 05/24/18 14:15 05/24/18 14:15 05/24/18 14:15 05/24/18 14:15 Oxygen Flow Rate (L/min) 2 Oxygen Delivery Method Room Air Weight: 67.1 kg Body Mass Index (BMI) 27.0 Intake and Output for Last 24 Hours 05/22/18 05/23/18 05/24/18 23:59 23:59 23:59 Intake Total 1866 918.4 / 918.4 355.6 / 355.6 Balance 1866 918.4 / 918.4 355.6 / 355.6 Laboratory Tests Past 24 Hrs 05/24/18 05/24/18 05:54 05:54 PT 31.4 H INR 3.0 Sodium 142 Potassium 3.6 Chloride 111 H Carbon Dioxide 23.0 Anion Gap 8 BUN 10 Creatinine 0.72 Estim Creat Clear Calc 38.44 Est GFR (MDRD) Af Amer 101 Est GFR (MDRD) Non-Af 83 BUN/Creatinine Ratio 13.8 Glucose 82 Calcium 7.9 L Medical Necessity - Tobacco Use Tobacco Use: Non-smoker Code Visit Inpatient E&M: 46484 Subs Hosp L2
--- NOTE | 2018-05-24 12:19 | DS.PCM_ITS ---
<Carey Andrade - Last Filed: 05/24/18 12:27> Discharge Date and Diagnosis Date of Admission: 05/21/18 Date of Discharge: 05/24/18 - Primary Discharge Diagnosis Active and Suspected Problems 1. Atrial fibrillation with RVR 2. Community-acquired pneumonia, without sepsis 3. Recent mitral valve replacement/maze procedure/atrial appendage ligation 4. Indeterminate troponin, suspected demand ischemia secondary to #1 5. TRISH on CPAP 6. Hypertension - Secondary Discharge Diagnosis Chronic Problems History of mitral valve replacement (Chronic) History of maze procedure (Chronic) Hospital Course and Treatment Imaging Results: Diagnostic Data Chest X-Ray 05/21/18 22:50 IMPRESSION: Small left-sided effusion. Borderline heart size. Status post sternotomy. An atrial appendage clip is seen. Right perihilar infiltrate. Electronically Signed: Corky Harper MD at 23:01 EST , Service support , Dr. Gibson- Cardiology Operations: None Procedures: None Summary of Care Provided: The patient is a 77 year old F admitted 05/21/2018 due to rapid heart rate. Noted to be atrial fibrillation with RVR. 1. Atrial fibrillation with RVR-Cardiology consulted. Continue Coumadin, INR therapeutic. Patient's primary hhas is in Dr. Ana Hair. She recently re-located to [place]. Patient was placed on IV Cardizem drip with improvement in heart rate. Per cardiology recommendations, patient will be discharged on previous amiodarone regimen of 200 mg p.o. 3 times daily. Home metoprolol regimen increased to 75 mg twice daily. Patient placed on long- acting Cardizem CD 120 mg p.o. twice daily. Heart rate well controlled. Patient will follow up with primary hhas in 1 week. Follow-up with primary care physician in 1 week as well. 2. Community-acquired pneumonia-received IV Rocephin and azithromycin X3 days. Patient is fairly asymptomatic. Chest x-ray admission with small left-sided effusion. Discharged on Augmentin 875 mg p.o. twice daily to complete 7 days of antibiotic therapy. 3. Recent mitral valve replacement/maze procedure/atrial appendage ligation 4. Indeterminate troponin- suspect demand ischemia 2/2 #1. Patient denies chest pain. 5. TRISH on CPAP 6. Hypertension-stable, continue current regimen. General: Alert, Oriented x3, Cooperative HEENT: Atraumatic, PERRLA, EOMI, Normocephalic Neck: Supple, No JVD, Negative Carotid Bruits Lungs: Clear to auscultation, Normal air movement Cardiovascular: Murmur, Atrial fibrillation- rate controlled Abdomen: Bowel Sounds Present, Soft, Non Tender, Non-Distended Extremities: No clubbing, No cyanosis, No edema, Capillary Refill Less than 3 Seconds Skin: No rashes, No breakdown, - - Midsternal scar with scabbing Musculoskeletal: No Tenderness to Palpation of Joints or Extremities Neurological: Cranial nerves II-XII grossly intact, Neuro grossly intact Psych/Mental Status: Normal Affect, Appropriate Patient seen and examined prior to discharge. Physical assessment as noted above. Patient is stable for discharge with follow up recommendations as noted above. This patient was seen by TAN Mcnally under the supervision of Dr. Saucedo. - Physical Exam Vital Signs Temp Pulse Resp BP Pulse Ox 98.1 F 62 18 96/56 L 96 05/24/18 11:00 05/24/18 11:03 05/24/18 11:00 05/24/18 11:00 05/24/18 11:00 Oxygen Flow Rate (L/min) 2 Oxygen Delivery Method Room Air Weight: 147 lb 14.883 oz Body Mass Index (BMI) 27.0 Intake and Output for Last 24 Hours 05/22/18 05/23/18 05/24/18 23:59 23:59 23:59 Intake Total 1866 918.4 / 918.4 32.6 / 32.6 Balance 1866 / 1866 918.4 / 918.4 32.6 / 32.6 Laboratory Tests Past 24 Hrs 05/24/18 05/24/18 05:54 05:54 PT 31.4 H INR 3.0 Sodium 142 Potassium 3.6 Chloride 111 H Carbon Dioxide 23.0 Anion Gap 8 BUN 10 Creatinine 0.72 Estim Creat Clear Calc 38.44 Est GFR (MDRD) Af Amer 101 Est GFR (MDRD) Non-Af 83 BUN/Creatinine Ratio 13.8 Glucose 82 Calcium 7.9 L Discharge Diet: Low fat/ Low Cholesterol Discharge Activity: Return to Normal Activity Call your doctor if you observe: Shortness of breath, Dizziness, Fainting spells, Increased palpitations (irregular heartbeat) Home Medications: Medications to take at Discharge Acetaminophen 650 mg PO Q4H PRN 05/21/18 Albuterol IH (ProAir) [Proair Hfa] 2 puff INHALATION Q6H PRN PRN 05/21/18 Alendronate Sodium [Fosamax] 70 mg PO QWEEK 05/21/18 Amiodarone HCl 200 mg PO TID 05/21/18 Ascorbic Acid [Vitamin C] 500 mg PO BID 05/21/18 Aspirin [Aspirin, Baby] 81 mg PO DAILY@0800 05/21/18 Atorvastatin Calcium 10 mg PO DAILY 05/21/18 Biotin/Silicon Diox/l-Cysteine [Rainelle Matrix 5000 ER Tablet] 1 each PO DAILY 05/21/18 Ishaan/D3/Mag11/Zinc/Veneer Trimmer/Papito/Bor [Caltrate 600+D Plus Tablet] 1 each PO DAILY 05/21/18 Cholecalciferol (VIT D3) [Vitamin D3] 1,000 unit PO DAILY 05/21/18 Cholestyramine (with Sugar) [Questran Packet] 4 gm PO DAILY 05/21/18 Cyanocobalamin (Vitamin B-12) [Vitamin B-12] 1,000 mcg SL DAILY 05/21/18 Ferrous Sulfate 325 mg PO BIDCM 05/21/18 Gabapentin [Neurontin] 200 mg PO QHS 05/21/18 Melatonin 3 mg PO QHS PRN PRN 05/21/18 Multivitamin [Multivitamins] 1 each PO DAILY 05/21/18 Pramipexole Di-HCl [Pramipexole Dihydrochloride] 0.25 mg PO QHS 05/21/18 Warfarin [Coumadin] 0.5 mg PO MOWEFR 05/21/18 Amox/Clavulanate Tablet [Augmentin Tablet] 875 mg PO Q12H #8 tablet 05/24/18 Diltiazem CD [Cardizem CD] 120 mg PO Q12 #60 capsule 05/24/18 Metoprolol Tartrate [Lopressor (beta edson)] 75 mg PO BID #120 tablet 05/24/18 Following Prescrptions Were Given to Patient: Amox/Clavulanate Tablet [Augmentin Tablet] 875 mg PO Q12H #8 tablet Diltiazem CD [Cardizem CD] 120 mg PO Q12 #60 capsule Metoprolol Tartrate [Lopressor (beta edson)] 75 mg PO BID #120 tablet Primary Care Physician: [facility] Doctor,Out of [Primary Care Provider] - Please follow up with your Primary Care Physician in: 1 Week Please Follow Up With: Dr. Perez - Primary Cut Off Machine Helper When: 1 Week Disposition: Home Minutes spent on discharge:: 35 Patient Condition:: Stable Medical Necessity - Tobacco Use Smoking Status: Never smoker Meaningful Use Info Meaningful Use Diagnoses (Choose all that apply): None applicable <Paintsricardo,[place] - Last Filed: 05/24/18 14:38> Discharge Date and Diagnosis - Secondary Discharge Diagnosis Chronic Problems History of mitral valve replacement (Chronic) History of maze procedure (Chronic) Hospital Course and Treatment Summary of Care Provided: This patient was seen in conjunction with Carey Andrade NP. I have independently interviewed and examined the patient and reviewed pertinent historical, laboratory, and other data. Please refer to her note for patient's presentation, findings, and recommendations. 77 year old female patient with a recent history for mitral valve replacement and maze procedure with atrial appendage ligation admitted to the hospital with Devin. emi with RVR. Patient's HR initially improved with cardiuzem drip, she was transitioned to cardizem po. HR remained still uncontrolled. Cardiology was consulted, changes were made to her medications. She continued to be in RVR and was managed subsequently with cardizem drip. She was discharged on adjusted rate control medications. Subjective: Patient was seen and examined. Denies any fever or chills or SOB. Objective: General: Alert, Oriented x3, Cooperative, No apparent distress HEENT: Atraumatic, PERRLA, EOMI, Normocephalic Oral: Moist Mucosa Neck: Supple, No JVD, Negative Carotid Bruits Lungs: Clear to auscultation, Normal air movement Cardiovascular: Regular Rhythm, Normal S1, Normal S2, Irregular Rate, Murmur - 3/6 holosystolic murmur, - - midsternal scar, healing, scabbing, no erythema Abdomen: Bowel Sounds Present, Soft, Non Tender, Non-Distended, No Hepato- splenomegaly Extremities: No edema Skin: No rashes, No breakdown Musculoskeletal: No Tenderness to Palpation of Joints or Extremities Lymphatic: No Cervical, Supraclavicular, or Inguinal Adenopathy Neurological: Cranial nerves II-XII grossly intact, Neuro grossly intact Psych/Mental Status: Normal Affect, Appropriate - Physical Exam Vital Signs Temp Pulse Resp BP Pulse Ox 98.1 F 69 16 95/53 L 95 05/24/18 11:00 05/24/18 14:15 05/24/18 14:15 05/24/18 14:15 05/24/18 14:15 Oxygen Flow Rate (L/min) 2 Oxygen Delivery Method Room Air Weight: 67.1 kg Body Mass Index (BMI) 27.0 Intake and Output for Last 24 Hours 05/22/18 05/23/18 05/24/18 23:59 23:59 23:59 Intake Total 1866 918.4 / 918.4 355.6 / 355.6 Balance 1866 918.4 / 918.4 355.6 / 355.6 Laboratory Tests Past 24 Hrs 05/24/18 05/24/18 05:54 05:54 PT 31.4 H INR 3.0 Sodium 142 Potassium 3.6 Chloride 111 H Carbon Dioxide 23.0 Anion Gap 8 BUN 10 Creatinine 0.72 Estim Creat Clear Calc 38.44 Est GFR (MDRD) Af Amer 101 Est GFR (MDRD) Non-Af 83 BUN/Creatinine Ratio 13.8 Glucose 82 Calcium 7.9 L Medical Necessity - Tobacco Use Tobacco Use: Non-smoker Code Visit Inpatient E&M: 74582 Subs Hosp L2
--- NOTE | 2018-05-24 14:28 | PHA.DC.COU ---
Pharmacy Services has performed discharge medication counseling for this patient. The patient was counseled on the following discharge medications and changes in medications for homegoing review. LOPRESSOR 50MMG PO DAILY DILTIAZEM: 120MG PO BID AUGMENTING 875/125: 1 TAB PO Q12H X8 DOSES The Reason for Use, instructions for use, and potential side effects were reviewed for all new medications. The patient's questions regarding all of their medications were answered. The patient demonstrated some understanding but would benefit from further education and reinforcement. The patient's sister was also in the room at the time of counseling who manages her medications. Per pt, her sister is a retired nurse/bundle helper who manages her medications. The sister understood all medications/ reasons for use. All questions answered. Home Medications Acetaminophen 650 mg PO Q4H PRN 05/21/18 Albuterol IH (ProAir) [Proair Hfa] 2 puff INHALATION Q6H PRN PRN 05/21/18 Alendronate Sodium [Fosamax] 70 mg PO QWEEK 05/21/18 Amiodarone HCl 200 mg PO TID 05/21/18 Ascorbic Acid [Vitamin C] 500 mg PO BID 05/21/18 Aspirin [Aspirin, Baby] 81 mg PO DAILY@0800 05/21/18 Atorvastatin Calcium 10 mg PO DAILY 05/21/18 Biotin/Silicon Diox/l-Cysteine [G[place]ard Matrix 5000 ER Tablet] 1 each PO DAILY 05/21/18 Ishaan/D3/Mag11/Zinc/Regulatory Internship/Papito/Bor [Caltrate 600+D Plus Tablet] 1 each PO DAILY 05/21/18 Cholecalciferol (VIT D3) [Vitamin D3] 1,000 unit PO DAILY 05/21/18 Cholestyramine (with Sugar) [Questran Packet] 4 gm PO DAILY 05/21/18 Cyanocobalamin (Vitamin B-12) [Vitamin B-12] 1,000 mcg SL DAILY 05/21/18 Ferrous Sulfate 325 mg PO BIDCM 05/21/18 Gabapentin [Neurontin] 200 mg PO QHS 05/21/18 Melatonin 3 mg PO QHS PRN PRN 05/21/18 Multivitamin [Multivitamins] 1 each PO DAILY 05/21/18 Pramipexole Di-HCl [Pramipexole Dihydrochloride] 0.25 mg PO QHS 05/21/18 Warfarin [Coumadin] 0.5 mg PO MOWEFR 05/21/18 Amox/Clavulanate Tablet [Augmentin Tablet] 875 mg PO Q12H #8 tablet 05/24/18 Diltiazem CD [Cardizem CD] 120 mg PO Q12 #60 capsule 05/24/18 Metoprolol Tartrate [Lopressor (beta edson)] 75 mg PO BID #120 tablet 05/24/18
--- NOTE | 2018-05-26 13:57 | CASEMGMT ---
Received call from Liss at [facility] visiting nurse service. Liss questioning if patient was observation status or inpatient for resumption of care. Notified Liss that patient has inpatient order from stay. Liss is requesting DC summary be faxed to her so the doctor can reconcile meds, faxed to [phone]. Carey Osullivan LPN Clinical Support
--- OUTSIDE RECORDS SUMMARY | 2018-07-26 08:48 | XMS RPT_ITS ---
:1940 Author Organization OHIP Support Name Relationship Address Phone NAINA HARRISON Unavailable [address] + [place] [address] R Unavailable Unavailable Unavailable QUINCY ISABEL Unavailable [address] + [place] [address] HARRISON, OLIVE Unavailable [address] + [place] [address] R Unavailable Unavailable Unavailable QUINCY ISABEL Unavailable [address] + [place] [address] HARRISON, OLIVE Unavailable [address] + [place] [address] R Unavailable Unavailable Unavailable QUINCY ISABEL Unavailable [address] + [place] [address] HARRISON, OLIVE Unavailable [address] + [place] [address] R Unavailable Unavailable Unavailable QUINCY ISABEL Unavailable [address] + [place] [address] HARRISON, OLIVE Unavailable [address] + [place] [address] R Unavailable Unavailable Unavailable QUINCY ISABEL Unavailable [address] + [place] [address] HARRISON, OLIVE Unavailable [address] + [place] [address] R Unavailable Unavailable Unavailable QUINCY ISABEL Unavailable [address] + [place] [address] HARRISON, OLIVE Unavailable [address] + [place] [address] R Unavailable Unavailable Unavailable QUINCY ISABEL Unavailable [address] + [place] [address] Quincy Isabel Unavailable Unavailable + Care Team Providers Name Role Phone Paintsil, Sandy Attending Unavailable Paintsil, Sandy Admitting Unavailable ANIYA MCLEAN Primary Care Unavailable Paige, Winkelman Consulting Unavailable Katerina, Polo Admitting Unavailable Polo Borges Attending Unavailable Borges, Polo Consulting Unavailable Paintsil, Sandy Admitting Unavailable Paintsil, Sandy Attending Unavailable ANIYA MCLEAN Primary Care Unavailable Paintsil, Sandy Consulting Unavailable Paintsil, Sandy Admitting Unavailable Carey Andrade NP-C Attending Unavailable NAIYA MCLEAN Primary Care Unavailable Paige, Real Consulting Unavailable Paintsil, Sandy Consulting Unavailable Paintsil, Sandy Admitting Unavailable Carey Andrade NP-C Attending Unavailable ANIYA MCLEAN Primary Care Unavailable Paige, Winkelman Consulting Unavailable Paintsil, Sandy Consulting Unavailable ANIYA MCLEAN Primary Care Unavailable Josh, Logan Admitting Unavailable Felipe Rodriguez Attending Unavailable Jase Mclain Unavailable Josh, Logan Admitting Unavailable Josh, Logan Attending Unavailable ANIYA MCLEAN Primary Care Unavailable Josh, Logan Consulting Unavailable DI SHEYLA, SAROJ SHABBIR Referring Unavailable REG SANTA Attending Unavailable JEAN-PIERRE PEREZ Attending Unavailable DI SHEYLA, SAROJ SHABBIR Referring Unavailable DI SHEYLA, SAROJ SHABBIR Referring Unavailable DI SHEYLA, SAROJ SHABBIR Referring Unavailable DI SHEYLA, SAROJ SHABBIR Referring Unavailable NIK IGNACIO ([facility]) Referring Unavailable DI SHEYLA, SAROJ SHABBIR Referring Unavailable KARLA KRISHNA ([facility]) Attending Unavailable JEAN-PIERRE PEREZ Referring Unavailable JEAN-PIERRE PEREZ Referring Unavailable JEAN-PIERRE PEREZ Referring Unavailable YUE BYRD Attending Unavailable RUPESH SETH Admitting Unavailable BENEDICTO MCFADDEN Attending Unavailable GUI DE LOS SANTOS Consulting Unavailable ROSALINE LAUREN ([facility]) Referring Unavailable ROSALINE LAUREN ([facility]) Attending Unavailable JEAN-PIERRE PEREZ Referring Unavailable ROSALINE LAUREN ([facility]) Referring Unavailable GUI DE LOS SANTOS Admitting Unavailable GUI DE LOS SANTOS Attending Unavailable GUI DE LOS SANTOS Referring Unavailable ADIEL VILLAGRAN MARIE Consulting Unavailable MARGEI KHAN ([facility]) Attending Unavailable DI SHEYLA, SAROJ SHABBIR Referring Unavailable MARGIE KHAN ([facility]) Referring Unavailable MARGIE KHAN ([facility]) Attending Unavailable SAROJ AVELAR Referring Unavailable JEAN-PIERRE PEREZ Attending Unavailable JEAN-PIERRE PEREZ Admitting Unavailable JEAN-PIERRE PEREZ Attending Unavailable PROVIDER, UNKNOWN Attending Unavailable DILAURO, LOREE Referring Unavailable DILAURO, LOREE Primary Care Unavailable Dilauro, Loree M. Referring Unavailable Dilauro, Loree M. Primary Care Unavailable Dilauro, Loree M. Referring Unavailable Dilauro, Loree M. Primary Care Unavailable CUTJEAN-PIERRE LE Attending Unavailable Dilauro, Loree M. Referring Unavailable Dilauro, Loree M. Primary Care Unavailable Dilauro, Loree M. Primary Care Unavailable REG SANTA Attending Unavailable Dilauro, Loree M. Referring Unavailable Dilauro, Loree M. Primary Care Unavailable Dilauro, Loree M. Referring Unavailable Dilauro, Loree M. Primary Care Unavailable Dilauro, Loree M. Referring Unavailable Dilauro, Loree M. Primary Care Unavailable Dilauro, Loree M. Referring Unavailable Dilauro, Loree M. Primary Care Unavailable IMCA Referring Unavailable Dilauro, Loree M. Primary Care Unavailable Dilauro, Loree M. Referring Unavailable Dilauro, Loree M. Primary Care Unavailable KARLA KRISHNA Attending Unavailable IMCA Referring Unavailable Dilauro, Loree M. Primary Care Unavailable JEAN-PIERRE PEREZ Referring Unavailable Dilauro, Loree M. Primary Care Unavailable JEAN-PIERRE PEREZ Admitting Unavailable CUTJEAN-PIERRE LE Attending Unavailable Dilauro, Loree M. Primary Care Unavailable CUTJEAN-PIERRE LE Referring Unavailable Dilauro, Loree M. Primary Care Unavailable CUTJEAN-PIERRE LE Referring Unavailable Dilauro, Loree M. Primary Care Unavailable CUTJEAN-PIERRE LE Referring Unavailable Dilauro, Loree M. Primary Care Unavailable SETHRUPESH Attending Unavailable Dilauro, Loree M. Primary Care Unavailable YUE BYRD Attending Unavailable SETH RUPESH X Admitting Unavailable Dilauro, Loree M. Primary Care Unavailable Adry BAIRES Consulting Unavailable BENEDICTO MCFADDEN Attending Unavailable GUI DE LOS SANTOS Consulting Unavailable CUTLER, DHRUV Referring Unavailable DilmartitaroKaylae M. Primary Care Unavailable TOM LAUREN Attending Unavailable JEAN-PIERRE PEREZ Referring Unavailable LisaroLoree M. Primary Care Unavailable GUI DE LOS SANTOS Admitting Unavailable GUI DE LOS SANTOS Attending Unavailable LisaroKaylae M. Primary Care Unavailable GUI DE LOS SANTOS Referring Unavailable LOREEOADIEL M Consulting Unavailable TOM LAUREN WEINA Referring Unavailable DilauroKaylae M. Primary Care Unavailable TOM LAUREN Referring Unavailable Dilauro, Loree M. Primary Care Unavailable MARGIE KHAN Attending Unavailable DilauroKaylae M. Referring Unavailable Dilauro, Loree M. Primary Care Unavailable IMCA Referring Unavailable LisaroKaylae M. Primary Care Unavailable MARGIE KHAN Attending Unavailable ElizabethauroKaylae M. Referring Unavailable Dilauro, Loree M. Primary Care Unavailable MARGIE KHAN Attending Unavailable LisaroKaylae M. Referring Unavailable ElizabethauroKaylae M. Primary Care Unavailable JEAN-PIERRE PEREZ Attending Unavailable IMCA Referring Unavailable ElizabethauroKaylae M. Primary Care Unavailable MARGIE KHAN Referring Unavailable Dilauro, Loree M. Primary Care Unavailable JEAN-PIERRE PEREZ Admitting Unavailable JEAN-PIERRE PEREZ Attending Unavailable Kayla Smalle M. Primary Care Unavailable PROBLEMS PROBLEMS DATE TYPE CONDITION / CODE ATTENDING STATUS SOURCE Active Persistent atrial MARGIE KHAN Active [facility] 8 fibrillation / ([facility]) Clinic Other I48.1(ICD-10) [place] Repository Active Personal history of MARGIE KHAN Active [place] 8 other diseases of ([facility]) Clinic Other the circulatory [place] system / Repository Z86.79(ICD-10) Active Paroxysmal atrial NA [place] [address] fibrillation / Clinic Other I48.0(ICD-10) [place] Repository Active Acute GUI DE LOS SANTOS [facility] 8 posthemorrhagic A Clinic Other anemia / D62(ICD-10) [place] Repository Active Other specified GUI DE LOS SANTOS [facility] 8 postprocedural A Clinic Other states / [place] Z98.890(ICD-10) Repository Active 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 / [place] Z95.3(ICD-10) Repository Active 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 / A Clinic Other I05.0(ICD-10) [place] Repository Active Other postprocedural LAHORRDevin GUI [facility] 8 complications and A Clinic Other disorders of [place] respiratory system, Repository not elsewhere classified / J95.89(ICD-10) Active Atelectasis / LAHORRAGUI [facility] 8 J98.11(ICD-10) A Clinic Other [place] Repository Admitting Unknown / GUI DE LOS SANTOS [place] [address] diagnosis UNK(Unknown) A [facility] System Repository Active Encounter for other [place] [address] preprocedural Clinic Other examination / [place] Z01.818(ICD-10) Repository Active Acute on chronic MCFADDEN BENEDICTO [facility] 8 diastolic Clinic Other (congestive) heart [place] failure / Repository I50.33(ICD-10) Active Essential (primary) MCFADDEN [facility] 8 hypertension / Clinic Other I10(ICD-10) [place] Repository Active Unspecified atrial YUE BYRD [facility] 8 fibrillation / U Clinic Other I48.91(ICD-10) [place] Repository Active Abnormal coagulation YUE BYRD [facility] 8 profile / U Clinic Other R79.1(ICD-10) [place] Repository Active 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, YUE BYRD [facility] 8 not elsewhere U Clinic Other classified / [place] J90(ICD-10) Repository Active Hypotension, YUE BYRD [facility] 8 unspecified / U Clinic Other I95.9(ICD-10) [place] Repository Active FPC (current) NA [facility] 8 use of Clinic Other 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s / [place] Z79.01(ICD-10) Repository Active Rheumatic mitral KARLA KRISHNA [facility] 8 insufficiency / ([employer]) Clinic Other I05.1(ICD-10) [place] Repository Active Palpitations / COLPOKARLA [place] [address] R00.2(ICD-10) ([employer]) Clinic Other [place] Repository Active Other chest pain / COLPO, KARLA [place] [address] R07.89(ICD-10) ([employer]) Clinic Other [place] Repository Active 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, bilateral legs / I70.213(ICD-10) Admitting Abnormal response to Unknown Active [place] [address] Diagnosis nerve stimulation, System unspecified / Repository R94.130(ICD-10) Active Polyneuropathy, NA [place] [address] unspecified / Clinic Other G62.9(ICD-10) [place] Repository Active Unknown / [place] [address] UNK(Unknown) Clinic Other [place] Repository Active Encounter for [place] [address] screening mammogram Clinic Other for malignant [place] neoplasm of breast / Repository Z12.31(ICD-10) Active Nonrheumatic mitral CUTJEAN-PIERRE LE [place] [address] (valve) Clinic Other insufficiency / [place] I34.0(ICD-10) Repository Active Diverticulitis of [facility], [place] [address] intestine, part CHRISTOPHER Clinic Other unspecified, without GUI [place] perforation or Repository abscess without bleeding / K57.92(ICD-10) PROCEDURES PROCEDURES No Procedure Records FoundRESULTS RESULTS PROTHROMBIN TIME W/INR Collected: 05/30/2018 Status: F Source: [place] 5:17 AM [facility] REPOSITORY TYPE CODE TESTS RESULT OUT OF RANGE REFERENCE UNITS LAB L300.4150 11.7-14.9 SECONDS High PROTIME 17.4 LAB L300.4200 Normal INR 1.4 Performed By: #### L300.3900 #### [facility] [place], [address] CBC W/DIFF, AUTOMATED Collected: 05/30/2018 Status: F Source: [place] 5:17 AM [facility] REPOSITORY TYPE CODE TESTS RESULT OUT OF RANGE REFERENCE UNITS LAB L100.1000 4.4-11.0 K/mm3 Normal WBC 4.7 LAB L100.1200 4.2-5.4 M/mm3 Low RBC 3.58 LAB L100.1300 12.0-15.0 g/dl Low HGB 9.7 LAB L100.1400 37-47 % Low HCT 31.4 LAB L100.1500 81-99 fL Normal MCV 87.7 LAB L100.1600 27.0-32.0 pg Normal MCH 27.1 LAB L100.1700 32-36 g/gl Low MCHC 30.9 LAB L100.1810 11.6-14.6 % Normal RDW CV 14.6 LAB L100.1820 35.1-43.9 fl High RDW SD 45.2 LAB L100.1900 150-450 K/mm3 Normal PLT 289 LAB L100.2000 6.2-12.0 fl Normal MPV 8.8 LAB L100.2100 47-70 % Normal NEUT% 61.0 LAB L100.2200 19-41 % Normal LY% 20.8 LAB L100.2300 0-10 % High MONO% 10.2 LAB L100.2400 0-5 % High EO% 5.9 LAB L100.2500 0-1 % High BASO% 1.9 LAB L100.2550 0.0-0.9 % Normal IM GRAN % 0.200 Result Comment: IG% - Immature Granulocytes (promyelocytes, myelocytes and metamyelocytes) > 1% indicates that a LEFT SHIFT is Present. LAB L100.2620 2.0-7.7 X10 3/uL Normal Absolute Neut 2.9 LAB L100.2720 0.83-4.51 X10 3/ul Normal Absolute Lymph 0.98 Performed By: #### L100.0100 #### [facility] [place], [address] BASIC METABOLIC Collected: 05/30/2018 Status: F Source: [place] PROFILE (BMP) 5:17 AM [facility] REPOSITORY TYPE CODE TESTS RESULT OUT OF RANGE REFERENCE UNITS LAB L501.0100 74-106 mg/dL Normal GLU 81 Result Comment: Please note revised GLUCOSE reference range effective 2017. LAB L501.1000 7-18 mg/dL Normal BUN 12 LAB L501.1100 0.55-1.02 mg/dL Normal CREAT,SERUM 0.78 Result Comment: The validity of the calculated GFR AND GFRAA in patients over 70 years has not been determined. Clinical correlation is essential. LAB L501.1110 >60 mL/min Normal EST GFR 77 Result Comment: Non- GFR Calc LAB L501.1115 >60 mL/min Normal EST GFR - AA 93 Result Comment: GFR Calc LAB L501.1255 ml/min Normal Estimated CRCL 36.68 LAB L501.1300 10-20 RATIO Normal BUN/CRE 15.5 LAB L501.2200 8.5-10 mg/dL Normal .1 CA 8.5 LAB L501.5300 136-14 mmol/L Normal 5 NA 144 LAB L501.5600 3.5-5. mmol/L Low 1 K 3.3 LAB L501.5900 98-107 mmol/L Normal CL 107 LAB L501.6100 21.0-3 mmol/L Normal 2.0 CO2 27.0 LAB L501.6200 5-15 Normal GAP 10 Performed By: #### L500.2500 #### [facility] [address] [place], [place], [address] TROPONIN-I Collected: 05/30/2018 Status: F Source: Super Vitamin D 3:10 AM [facility] REPOSITORY Order Comment: 'TROP' Serial specimen #1, #2 or #3: 2 TYPE CODE TESTS RESULT OUT OF RANGE REFERENCE UNITS LAB L501.4010 <0.045 ng/mL High 0.095 TROPONIN-I Result Comment: TROPONIN-I EXPECTED VALUES <0.045 Negative 0.045 - 0.590 Consistent with Cardiac Damage > OR = 0.600 Critical Value Not every elevated troponin is indicative of [place]. These values should be used with clinical judgement in examining the patient's clinical picture for diagnosis. To establish a diagnosis of [place] versus myocardial injury, there must be a demonstrated rise and/or fall in the troponin values, in addition to ischemic symptoms, EKG changes, new regional wall motion abnormality, and/or angiographical evidence. PLEASE NOTE: REFERENCE RANGES EDITED 17 Performed By: #### L501.4010 #### [facility] [address] [place], [address] TROPONIN-I Collected: 05/30/2018 Status: F Source: [place] 12:20 AM [facility] REPOSITORY Order Comment: 'TROP' Serial specimen #1, #2 or #3: 1 TYPE CODE TESTS RESULT OUT OF RANGE REFERENCE UNITS LAB L501.4010 <0.045 ng/mL High 0.094 TROPONIN-I Result Comment: TROPONIN-I EXPECTED VALUES <0.045 Negative 0.045 - 0.590 Consistent with Cardiac Damage > OR = 0.600 Critical Value Not every elevated troponin is indicative of [place]. These values should be used with clinical judgement in examining the patient's clinical picture for diagnosis. To establish a diagnosis of [place] versus myocardial injury, there must be a demonstrated rise and/or fall in the troponin values, in addition to ischemic symptoms, EKG changes, new regional wall motion abnormality, and/or angiographical evidence. PLEASE NOTE: REFERENCE RANGES EDITED 17 Performed By: #### L501.4010 #### [facility] [address] [place], [address] EMERGENCY DEPARTMENT Observed: 05/29/2018 Status: F Source: [place] SUMMARY 11:47 PM [facility] REPOSITORY [facility] Medical Records Department [address] [place] [address] Emergency Department Summary 05/29/182007 MR#: [id number] Acct: [id number] Name: GLORIA MATHEW Rep #: [id number] : 1940 77 From: Candido Mayes MD PCP: OUT OF TOWN DOCTOR Status: ADM IN - ER Visit Summary Date of Service: 05/29/18 Chief Complaint: [] Shortness of breath recent mitral valve replacement surgery, Maze procedure for A. fib, cardioversion at [facility] related to the above History of Present Illness: The patient is a 77 F [] recently found to have worsening A. fib mitral valve disease March, she underwent mitral valve replacement surgery at [facility] and a Maze procedure the Maze procedure did not cause termination of the A. fib, she recently had a cardioversion, 1 week he was admitted to [facility] related to pneumonia she been doing well at home complete a prescription of Augmentin for the last day or so she has had nonspecific chest sense of shortness of breath, her sister is a nurse and listen to the left side of her lung and noticed some crackles and diminished sounds to this area and she was brought to the hospital for evaluation, there is no fever no cough no abdominal pain, she is on Coumadin INR is been 4.5 she takes her Coumadin Thursday and Thursday no significant edema except at one time she thought her hands were swollen but that seems to have been improved This time resting comfortably in the bed no distress with no specific complaints her pulse ox is 99% on room air she speaking in full sentences Physical Examination: [] 120/66, pulse ox 94% room air, afebrile General, no distress resting comfortably she is in no distress speaking full sentences HEENT is generally unremarkable The neck is supple no adenopathy Cardiovascular, regular rate and rhythm Lungs, clear bilateral, there do appear to be crackles and slight diminished breath sounds at the left base Abdomen, soft nontender Extremities, no clubbing cyanosis or edema Neurologic, awake alert answering questions appropriately moving all 4 extremities Test Results: [] Emergency Department Course and Treatment: [] EKG shows appears to be a sinus rhythm or possibly even a junctional rhythm rate is about 60 her blood pressure is within normal range as above as are the rest of her vital signs chest x-ray shows a left pleural effusion were tried compared to old 1 screening labs Radiology left pleural effusion is more prominent than prior, the screening labs are generally unremarkable, the patient is indicating as is her family that again she is more short of breath, does not feel she can be managed as an outpatient given that she is followed all the outpatient regimen prescribed for her and she is not improving she is comfortable staying at [facility] does not wish to be transferred to [facility] I have asked the hospitalist see her for admission and further management Treatment Plan: [] Disposition: [] Admit stable Impression: [] Dyspnea related to left pleural effusion, recent mitral valve replacement, history of A. fib with recent cardioversion This note was generated with Loco2 dictation software. It may contain incorrect words, spelling, and punctuation that were not noted in review of the chart prior to signing ED Disposition - Plan for ED Patient: Chief Complaint: Shortness of Breath Referrals: [facility] Doctor,Out of [Primary Care Provider] - What to do if you have Problems For any increased pain, shortness of breath, bleeding, nausea or vomiting, chest pain, or any unexpected problems, contact your Primary Care Provider. Call [facility] ([phone]) or report to the closest Emergency Room. Call 911 if necessary. 05/29/18 2557 <Electronically signed by Candido Mayes MD> Date Candido Mayes MD Cosigner Signature (If Indicated): Date CC: OUT OF TOWN DOCTOR HISTORY AND PHYSICAL Observed: 05/29/2018 Status: F Source: [place] EXAM 11:11 PM [facility] REPOSITORY [facility] Medical Records Department [address] [place] [address] History and Physical 05/29/180 MR#: [id number] Acct: [id number] Name: QUINCYGLORIA Merly Rep #: [id number] : 1940 77 From: Logan Moreno MD PCP: OUT OF TOWN DOCTOR Status: ADM IN Location: [place] [id number] Problem List (1) Left moderate pleural effusion Status: Acute (2) Atrial fibrillation with RVR Status: Resolved (3) History of mitral valve replacement Status: Chronic (4) History of maze procedure Status: Chronic (5) Pneumonia Status: Chronic Qualifiers: Laterality: right Lung location: middle lobe of lung History of Present Illness Date of Admission: 05/29/18 Chief Complaint: Shortness of breath started today The patient is a 77 year old F with multiple comorbidities as mentioned below came to ED with shortness of breath that is started today. Patient was discharged on 05/24/2018 after management for A. fib with RVR, community-acquired pneumonia. She has recent mitral valve replacement, maze procedure and atrial appendage ligation done in [facility]. Patient's primary associate data scientist is Dr. Perez in [place]. After discharge she was cardioverted and currently patient is in sinus rhythm. She denies chest pain/pressure/tightness, palpitation or flutter waves, syncope. She has positive orthopnea and dyspnea on exertion and even at rest. In ED, heart rate 50-60, respiratory rate 24-29 pulse ox 94% on room air. EKG shows junctional rhythm at 62 bpm with QTC 570 ms. There is a small P waves present therefore sinus rhythm. [] Past Medical History Past Medical History (Chronic Problems): Chronic Problems History of mitral valve replacement (Chronic) History of maze procedure (Chronic) Pneumonia (Chronic) Allergies No Known Allergies Allergy (Verified 05/29/18 19:49) Home Medications: Ambulatory Orders Medication Instructions Recorded Acetaminophen 650 mg PO Q4H PRN 05/21/18 Albuterol IH (ProAir) [Proair Hfa] 2 puff INHALATION Q6H PRN PRN 05/21/18 Surgical History: - - mitral valve replacement with left atrial appendage ligation and maze procedure Smoking Status: Never smoker - *Family History Maternal History Items: No pertinent history Review of Systems Constitutional: Reports: Weakness. Denies: Chills, Fever HEENT: Denies: Head Aches, Sinus Congestion, Sinus Drainage Cardiovascular: Reports: Claudication, Edema. Denies: Chest Pain, Chest Pressure, Chest Tightness, Palpitations Respiratory: Reports: Shortness of breath at rest, Shortness of breath upon exertion. Denies: Cough, Pleuritic Pain, Sputum production Gastrointestinal: Denies: Abdominal Pain, Nausea, Vomiting Genitourinary: Denies: Dysuria Musculoskeletal: Denies: Joint Pain, Joint Tenderness Skin: Denies: Rash, Wounds Neurological: Denies: Numbness, Tingling, Focal weakness Psychiatric: Denies: Anxiety, Depression, Homicidal Ideations, Suicidal Ideations Hematologic/ Lymphatic: Denies: Easy Bruising, Easy Bleeding VTE Information - Inpt Only VTE Present on Admission: No VTE Mechan Device Prophylaxis: None VTE Pharm Prophylaxis ordered?: Yes Patient Problems: Active and Suspected Problems Left moderate pleural effusion (Acute) - Physical Exam General: Alert, Oriented x3, Cooperative HEENT: Atraumatic, PERRLA, EOMI, Normocephalic Oral: Dry Mucosa Neck: Supple, No JVD, Negative Carotid Bruits Lungs: Clear to auscultation, Diminished - Air entry diminished in posterior half of left lung, left moderate pleural effusion, Short of Breath, - - Stony dullness present below fifth intercostal costal space posterior scapular line on left side Cardiovascular: Regular rate, No murmurs Abdomen: Bowel Sounds Present, Soft, Non Tender Extremities: No edema, Capillary Refill Less than 3 Seconds Skin: No rashes, No breakdown Musculoskeletal: No Tenderness to Palpation of Joints or Extremities, Arthritic Changes Neurological: Cranial nerves II-XII grossly intact, Deep Tendon Reflexes 2+/4 and Symmetrical, Neuro grossly intact Psych/Mental Status: Normal Affect, Appropriate Vital Signs Temp Pulse Resp BP Pulse Ox 99.0 F 60 29 H 128/60 H 94 05/29/18 22:08 05/29/18 22:29 05/29/18 22:29 05/29/18 22:29 05/29/18 22:29 Oxygen Delivery Method Room Air Weight: 138 lb Body Mass Index (BMI) 25.2 Laboratory Tests Past 24 Hrs WBC 4.8 WBC RBC Hgb Hct MCV MCH MCHC RDW RDW Differential Plt Count MPV Immature Gran % (Auto) Neut % (Auto) Lymph % (Auto) Assessment/Plan All Active Problems Left moderate pleural effusion (Acute) Atrial fibrillation with RVR (Resolved) The patient is a 77 year old F with multiple comorbidities as mentioned below came to ED with shortness of breath that is started today. Patient was discharged on 05/24/2018 after management for A. fib with RVR, community-acquired pneumonia. She has recent mitral valve replacement, maze procedure and atrial appendage ligation done in [facility]. Patient's primary associate data scientist is Dr. Perez in [place]. After discharge she was cardioverted and currently patient is in sinus rhythm. She denies chest pain/pressure/tightness, palpitation or flutter waves, syncope. She has positive orthopnea and dyspnea on exertion and even at rest. In ED, heart rate 50-60, respiratory rate 24-29 pulse ox 94% on room air. EKG shows junctional rhythm at 62 bpm with QTC 570 ms. There is a small P waves present therefore sinus rhythm. 1. Left moderate pleural effusion possible postpneumonic/cardiac: Patient completed treatment of Augmentin at the time of discharge. No leukocytosis or fever. Lasix 40 mg IV now and then daily. Monitor intake and output. Pulmonary consult for left-sided thoracocentesis and further pleural fluid analysis. Supplement potassium as patient is on Lasix. 2. Paroxysmal A. fib status post maze procedure/atrial appendage ligation and recent post discharge cardioversion: Continue cardiac medication. QTC is prolonged, most probably from amiodarone; avoid QT prolonging medication. Since she is on amiodarone 200 mg 3 times daily we will decrease to once or twice daily to keep heart rate in 60s 70s. Currently in normal sinus rhythm. Keep electrolytes at optimal level. On Coumadin. INR is 1.3 3. Recent mitral valve replacement, patient has bioprosthetic valve. 4. Obstructive sleep apnea on CPAP 5. Hypertension: Blood pressure is controlled DVT prophylaxis: On Coumadin INR is subtherapeutic. Coumadin 5 mg 1 dose given. PT/INR tomorrow a.m. Laboratory Results 05/29/18 20:00: WBC 4.8, RBC 4.03 L, Hgb 10.8 L, Hct 35.7 L, MCV 88.6, MCH 26.8 L, MCHC 30.3 L, RDW 14.9 H, RDW Differential 48.3 H, Plt Count 296, MPV 8.6, Immature Gran % (Auto) 0.200, Neut % (Auto) 59.0, Lymph % (Auto) 22.7, Morrill % (Auto) 10.7 H, Eos % (Auto) 5.7 H, Baso % (Auto) 1.7 H, Absolute Neuts (auto) 2.8, Absolute Lymphs (auto) 1.08, Total Counted Not Reportable 05/29/18 20:00: Sodium 142, Potassium 3.7, Chloride 108 H, Carbon Dioxide 26.0, Anion Gap 8, BUN 13, Creatinine 0.93, Estim Creat Clear Calc 41.34, Est GFR (MDRD) Af Amer 75, Est GFR (MDRD) Non-Af 62, BUN/Creatinine Ratio 14.0, Glucose 105, Calcium 8.7, Troponin I 0.084 H 05/29/18 20:00: B-Natriuretic Peptide 793.6 H 05/29/18 20:00: PT 16.3 H, INR 1.3 Clinical Impression(s) from Imaging Studies Chest X-Ray 05/29/18 19:55 IMPRESSION: Increased left pleural effusion and left lower lobe atelectasis/infiltrate. Code Visit Inpatient E AND M: 98341 Init Hosp L3 05/29/18 2317 <Electronically signed by Logan Moreno MD> Date Logan Moreno MD Cosigner Signature: Date (if applicable) CC: OUT OF TOWN DOCTOR; Logan Moreno MD Signed CBC W/DIFF, AUTOMATED Collected: 05/29/2018 Status: F Source: [place] 8:00 PM [facility] REPOSITORY TYPE CODE TESTS RESULT OUT OF RANGE REFERENCE UNITS LAB L100.1000 4.4-11.0 K/mm3 Normal WBC 4.8 LAB L100.1200 4.2-5.4 M/mm3 Low RBC 4.03 LAB L100.1300 12.0-15.0 g/dl Low HGB 10.8 LAB L100.1400 37-47 % Low HCT 35.7 LAB L100.1500 81-99 fL Normal MCV 88.6 LAB L100.1600 27.0-32.0 pg Low MCH 26.8 LAB L100.1700 32-36 g/gl Low MCHC 30.3 LAB L100.1810 11.6-14.6 % High RDW CV 14.9 LAB L100.1820 35.1-43.9 fl High RDW SD 48.3 LAB L100.1900 150-450 K/mm3 Normal PLT 296 LAB L100.2000 6.2-12.0 fl Normal MPV 8.6 LAB L100.2100 47-70 % Normal NEUT% 59.0 LAB L100.2200 19-41 % Normal LY% 22.7 LAB L100.2300 0-10 % High MONO% 10.7 LAB L100.2400 0-5 % High EO% 5.7 LAB L100.2500 0-1 % High BASO% 1.7 LAB L100.2550 0.0-0.9 % Normal IM GRAN % 0.200 Result Comment: IG% - Immature Granulocytes (promyelocytes, myelocytes and metamyelocytes) > 1% indicates that a LEFT SHIFT is Present. LAB L100.2620 2.0-7.7 X10 3/uL Normal Absolute Neut 2.8 LAB L100.2720 0.83-4.51 X10 3/ul Normal Absolute Lymph 1.08 Performed By: #### L100.0100 #### [facility] [address] [place], [address] PROTHROMBIN TIME W/INR Collected: 05/29/2018 Status: F Source: [place] 8:00 PM [facility] REPOSITORY TYPE CODE TESTS RESULT OUT OF RANGE REFERENCE UNITS LAB L300.4150 11.7-14.9 SECONDS High PROTIME 16.3 LAB L300.4200 Normal INR 1.3 Performed By: #### L300.3900 #### [facility] [address] [place], [address] BASIC METABOLIC Collected: 05/29/2018 Status: F Source: [place] PROFILE (BMP) 8:00 PM [facility] REPOSITORY TYPE CODE TESTS RESULT OUT OF RANGE REFERENCE UNITS LAB L501.0100 74-106 mg/dL Normal GLU 105 Result Comment: Fasting Glucose result from 100 to 125 mg/dL suggests IMPAIRED HOMEOSTASIS per A.D.A. criteria. Please note revised GLUCOSE reference range effective 2017. LAB L501.1000 7-18 mg/dL Normal BUN 13 LAB L501.1100 0.55-1.02 mg/dL Normal CREAT,SERUM 0.93 Result Comment: The validity of the calculated GFR AND GFRAA in patients over 70 years has not been determined. Clinical correlation is essential. LAB L501.1110 >60 mL/min Normal EST GFR 62 Result Comment: Non- GFR Calc LAB L501.1115 >60 mL/min Normal EST GFR - AA 75 Result Comment: GFR Calc LAB L501.1255 ml/min Normal Estimated CRCL 41.34 LAB L501.1300 10-20 RATIO Normal BUN/CRE 14.0 LAB L501.2200 8.5-10 mg/dL Normal .1 CA 8.7 LAB L501.5300 136-14 mmol/L Normal 5 NA 142 LAB L501.5600 3.5-5. mmol/L Normal 1 K 3.7 LAB L501.5900 98-107 mmol/L High CL 108 LAB L501.6100 21.0-3 mmol/L Normal 2.0 CO2 26.0 LAB L501.6200 5-15 Normal GAP 8 Performed By: #### L500.2500, L501.4010 #### [facility] [address] [place], [address] TROPONIN-I Collected: 05/29/2018 Status: F Source: [place] 8:00 PM [facility] REPOSITORY TYPE CODE TESTS RESULT OUT OF RANGE REFERENCE UNITS LAB L501.4010 <0.045 ng/mL High 0.084 TROPONIN-I Result Comment: TROPONIN-I EXPECTED VALUES <0.045 Negative 0.045 - 0.590 Consistent with Cardiac Damage > OR = 0.600 Critical Value Not every elevated troponin is indicative of [place]. These values should be used with clinical judgement in examining the patient's clinical picture for diagnosis. To establish a diagnosis of [place] versus myocardial injury, there must be a demonstrated rise and/or fall in the troponin values, in addition to ischemic symptoms, EKG changes, new regional wall motion abnormality, and/or angiographical evidence. PLEASE NOTE: REFERENCE RANGES EDITED 17 Performed By: #### L500.2500, L501.4010 #### [facility] [address] [place], [address] BNP,B-TYPE NATRIURETIC Collected: 05/29/2018 Status: F Source: [place] PEPTIDE 8:00 PM [facility] REPOSITORY TYPE CODE TESTS RESULT OUT OF RANGE REFERENCE UNITS LAB L503.6620 0-100 pg/mL High B-TYPE 793.6 SHANEL PEP Performed By: #### L503.6620 #### [facility] [address] [place], [address] CHEST 1 VIEW Observed: 05/29/2018 Status: F Source: [place] (PORTABLE) 7:55 PM [facility] REPOSITORY [facility] Imaging Services [address] [place] [id number] Chest 1 View (Portable) MR#: [id number] Acct: [id number] Name: GLORIA MATHEW Rep #: [id number] : 1940 F 77 From: Memo Hurd MD PCP: OUT OF TOWN DOCTOR Status: REG ER Study: Chest 1 View (Portable) Date of Exam: 05/29/18 Exam# [id number] Ordering Dr: Candido Mayes MD STUDY: X-RAY CHEST REASON FOR EXAM: Female, 77 years old. Abnormal left chest auscultation exam, shortness of breath, cardioversion 2 days ago TECHNIQUE: AP COMPARISON: 05/21/2018 FINDINGS: Increased opacity of the left lung base compatible with enlarging pleural effusion and/or underlying infiltrate/atelectasis. No pneumothorax. There is mild cardiac enlargement. Sternotomy wires noted. A troponins clip present. Normal visualized pulmonary arteries. Normal visualized aortic arch and descending thoracic aorta. No acute bony process. There is no demonstrated abnormality of the visualized soft tissue structures of the upper abdomen. RAD/Chest 1 View (Portable) IMPRESSION: Increased left pleural effusion and left lower lobe atelectasis/infiltrate. Electronically Signed: Memo Hurd MD at 20:42 EST , Service support , CC: MD Lucía Mayes; OUT OF TOWN DOCTOR Lining Folder: Signed PROGRESS Observed: 05/27/2018 Status: COMPLETED Source: [place] 10:49 AM [facility] OTHER [place] REPOSITORY HNO ID: [id number] Author: Jean-Pierre Perez Service: Cardiovascular Medicine Author Type: Physician Type: Progress Notes Filed: 05/27/2018 12:37 PM Note Text: Result Noted. Patient is currently hospitalized and managed by the in-patient team. Jean-Pierre Perez MD ANES POST Observed: 05/27/2018 Status: COMPLETED Source: [place] 10:49 AM [facility] OTHER [place] REPOSITORY HNO ID: [id number] Author: Nomi Nolan Service: Anesthesiology Author Type: Physician Type: Anesthesia PostOp Filed: 05/27/2018 2:16 PM Note Text: POST ANESTHESIA EVALUATION NOTE SERVICE DATE: 05/27/2018 SERVICE TIME: 2:16 PM : 1940 Vitals: 05/27/18 0722 05/27/18 0915 05/27/18 0945 Temp: 37.3 ?C (99.1 ?F) 36.2 ?C (97.2 ?F) 36.2 ?C (97.2 ?F) 05/27/18 0930 05/27/18 0945 05/27/18 1000 05/27/18 1015 BP: 99/50 106/61 107/55 105/62 05/27/18 0938 05/27/18 0945 05/27/18 1000 05/27/18 1015 Pulse: 66 68 68 68 05/27/18 0938 05/27/18 0945 05/27/18 1000 05/27/18 1015 Resp: 05/27/18 0938 05/27/18 0945 05/27/18 1000 05/27/18 1015 SpO2: 97% 96% 99% 98% Validated Vital Signs: Yes POST ANES STATUS: No apparent anesthetic complications. The patient is appropriately hydrated with stable respiratory and cardiovascular status. Patient has safe and adequate airway control. The patient has appropriate pain relief and no significant post operative nausea or vomiting. The patient has achieved baseline mental status. Intra-Operative Events: No Significant Anesthesia Events Further assessment by Anesthesia Service: None Other Remarks: SIGNATURE: Nomi Nolan MD PATIENT NAME: Gloria Mathew DATE: May 27, 2018 TIME: 2:16 PM PAGER/CONTACT #: [phone] NURSING PROG Observed: 05/27/2018 Status: COMPLETED Source: [place] 10:00 AM [facility] OTHER CAMPUS REPOSITORY HNO ID: [id number] Author: Katie (Rn) MARCELLA Wyman Service: Nursing Author Type: Registered Nurse Type: Nursing Progress Note Filed: 05/27/2018 10:11 AM Note Text: Nursing Progress Note Patient Name: Gloria Mathew Patient Location: [facility] LAB/EP POOL 1000 - Patient returned from PACU via cart. Patient tolerating PO intake of drink and crackers. Family at bedside. This note was completed by: Katie Wyman RN NURSING PROG Observed: 05/27/2018 Status: COMPLETED Source: [place] 9:46 AM [facility] REPOSITORY HNO ID: [id number] Author: Lincoln (Rn) MARCELLA Lee Service: (none) Author Type: Registered Nurse Type: Nursing Progress Note Filed: 05/27/2018 9:46 AM Note Text: Dr Nolan in to eval pt, ok to transfer pt out of PACU by his standpoint ANES PREOP Observed: 05/27/2018 Status: COMPLETED Source: [place] 8:34 AM [facility] REPOSITORY HNO ID: [id number] Author: Nomi Nolan Service: Anesthesiology Author Type: Physician Type: Anesthesia PreOp Filed: 05/27/2018 8:37 AM Note Text: ANESTHESIOLOGY DAY OF SURGERY NOTE SERVICE DATE: 05/27/2018 SERVICE TIME: 8:34 AM : 1940 Procedure(s) (LRB): ECHOCARDIOGRAM TRANSESOPHOGEAL, REAL TIME W/IMAGE DOCUMENT (2D) (N/A) CARDIOVERSION EXTERNAL ELECTIVE (N/A) Surgeon(s): Jean-Pierre Perez Estimated body mass index is 27.03 kg/m? as calculated from the following: Height as of this encounter: 157.5 cm (5' 2). Weight as of this encounter: 67 kg (147 lb 12.8 oz). 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 Epic bioprosthesis - IBS (irritable bowel syndrome) - Mitral valve regurgitation - Mitral valve stenosis - Pulmonary HTN (HCC) - S/P left atrial appendage ligation 04/16/2018 exclusion of left atrial appendage with a 45 mm atrial clip. - Tricuspid regurgitation PAST SURGICAL HISTORY Procedure Laterality Date - ATRIAL APPENDAGE LIGATION 04/16/2018 exclusion of left atrial appendage with a 45 mm atrial clip. - BREAST BIOPSY - CHOLECYSTECTOMY HX 10/02/2011 - HYSTERECTOMY HX MARYELLEN/BLO - LEG SURGERY HX - MAZE PROCEDURE 04/16/2018 maze procedure with left and right atrial lesion sets (radiofrequency clamp and cryo) - PICC LINE INSERTION (PICC TEAM) (AK) 04/21/2018 - REPLACEMENT OF MITRAL VALVE 04/16/2018 29-mm [facility] [facility] Epic bioprosthesis FAMILY HISTORY Problem Relation Age of Onset - Breast Cancer Mother stage III - Coronary Artery Disease Mother mother, uncle - Cancer Paternal Grandfather - Colon Cancer Maternal Grandmother - Diabetes Other uncle - Stroke Maternal Grandfather Social History: Social History Substance Use Topics - Smoking status: Never Smoker - Smokeless tobacco: Never Used - Alcohol use No No current facility-administered medications on file prior to encounter. Current Outpatient Prescriptions on File Prior to Encounter: amiodarone (PACERONE) 200 mg tablet Take 200 mg three times daily. metoprolol tartrate, short acting, (LOPRESSOR) 25 mg tablet Take 1 tablet by mouth every 8 hours. furosemide (LASIX) 40 mg tablet Take 0.5 tablets by mouth once daily as needed. For weight gain or leg swelling. atorvastatin (LIPITOR) 10 mg tablet TAKE 1 TABLET BY MOUTH EVERY NIGHT AT BEDTIME ferrous sulfate 325 mg (65 mg iron) tablet Take 1 tablet by mouth twice daily with meals. melatonin 3 mg tablet Take 1 tablet by mouth at bedtime as needed (insomnia). ascorbic acid, vitamin C, (VITAMIN C) 500 mg tablet Take 1 tablet by mouth twice daily. pramipexole (MIRAPEX) 0.25 mg tablet Take 1 tablet by mouth daily at bedtime. cholestyramine (QUESTRAN) 4 gram packet Take 1 Packet by mouth once daily. aspirin, enteric coated (ASPIRIN, ENTERIC COATED) 81 mg EC tablet Take 1 tablet by mouth once daily. Cyanocobalamin (VITAMIN B-12) 1,000 mcg subl Dissolve 1 tablet under the tongue once daily. calcium carbonate (CALTRATE) 600 mg calcium (1,500 mg) tab Take 600 mg by mouth once daily. gabapentin (NEURONTIN) 100 mg capsule Take 200 mg by mouth daily at bedtime. Biotin-Silicon Hrgl-K-Khospurd 5,000 mcg-100 mg- 50 mg tab Take 1 tablet by mouth once daily. multivitamin tablet Take 1 tablet by mouth once daily. Cholecalciferol, Vitamin D3, 1,000 unit cap Take 1,000 Units by mouth once daily. warfarin (COUMADIN) 1 mg tablet Take 0.5mg (1/2 tablet) on Thursday and Thursday and no warfarin on other days. potassium chloride ER (K-DUR, KLOR-CON) 20 mEq tablet Take 1 tablet by mouth once daily. Take daily as needed when takes furosemide (water pill) acetaminophen (TYLENOL) 325 mg tablet Take 2 tablets by mouth every 4 hours as needed. PROAIR HFA 90 mcg/actuation inhaler Inhale 2 Puffs as instructed every 6 hours as needed for Wheezing/Shortness of Breath. alendronate (FOSAMAX) 70 mg tablet Take 1 tablet by mouth once each week. cyclobenzaprine (FLEXERIL) 10 mg tablet Take 0.5 tablets by mouth twice daily as needed for Pain. No current facility-administered medications for this encounter. Allergies: ALLERGIES No Known Allergies DOS EXAM: Adequate NPO status: Yes Anesthetic risks, benefits, alternatives, personnel and consent discussed: Yes Patient agrees to proceed: Yes Previous Anesthesia: No history of adverse event. Airway Assessment: MP 2; Neck ROM: Full ROM without neurologic symptoms; Airway Evaluation: No significant abnormalities Symptoms of Sleep Apnea: Hypertension and Age over 50 (77 year old) Dentition: Poor dentition Chipped, loose and/or missing Additional Physical Exam: Lungs: Patient health status unchanged since recent history and physical. See history and physical for exam findings. Cardiac: Patient health status unchanged since recent history and physical. See history and physical for exam findings. Additional Pertinent Findings: N/A Blood Products: Not anticipated for this procedure. Anesthetic Plan: MAC with Sedation and Standard ASA Monitors Pain Management Plan: Parenteral or Oral ASA Class: 3 Other Medical Problems: recent MVR with recurrent afib Chronic Beta Edson medication administered within 24 hours: Yes I have interviewed and examined the patient. I have reviewed the medical record and/or the pre-anesthesia evaluation, pertinent labs, and test results. Significant changes in the patient's condition since the History and Physical, not otherwise documented in primary service progress notes: No This contains updated information obtained within 48 hours of Surgery/Procedure. SIGNATURE: Nomi Nolan MD PATIENT NAME: Gloria Mathew DATE: May 27, 2018 TIME: 8:34 AM CSN: [id number] OPERATIVE NO Observed: 05/27/2018 Status: COMPLETED Source: [place] 8:07 AM [facility] REPOSITORY HNO ID: [id number] Author: Jean-Pierre Perez Service: Cardiovascular Medicine Author Type: Physician Type: Operative Report Filed: 05/27/2018 8:47 AM Note Text: MEERA DCCV Note-Indication: Afib After informed consent, with 70 mg IV Diprivan sedation provided by anesthesia service, and one spray topical oral hurricaine spray, patient underwent MEERA Full MEERA report in syngo Briefly: LA moderately to severely enlarged, LA Appendage s/p ligation, no clots seen in LA, mod to large amount LA contrast Normal Tissue MVR; LVEF 45% Patient then underwent DCCV with 200 Joules synch with evangelical NSR at 60 bpm. Tolerated procedure well. 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 She's had issues with rapid A. fib that occurred before and after surgery. She has a known rheumatic mitral valve and was being followed expectantly until she developed rapid A. fib that was refractory and some degree of heart failure due to the A. fib and the mitral valve disease. Her catheter did not show significant CAD and her MEERA showed severe mitral stenosis and mild to moderate mitral regurgitation with normal LV function. Dr. Arroyo performed mitral valve replacement with a tissue #29 valve along with Maze procedure and left atrial appendage ligation. She was treated with amiodarone postoperatively and was started on warfarin. Over the last 3-4 weeks her excellent advanced practice nurse, Margie Khan, has been trying to manage her A. fib and has been in touch with me. However even with more aggressive rate control and increase in amiodarone her rate remains high. She was in the [place] ER this weekend and I did add a little Cardizem and was increased by the [place] associate data scientist Dr. Gibson. She is now here for follow-up and says she simply is wiped out. She's had no actual syncope stroke or TIA. She's had no major bleeding on the Coumadin. Her sternotomy is healing well. She has mild edema. She's had no chest discomfort. She's had no GI bleeding. PAST MEDICAL HISTORY Diagnosis Date - Atrial fibrillation (HCC) - Breast mass, right - H/O maze procedure 04/16/2018 maze procedure with left and right atrial lesion sets (radiofrequency clamp and cryo) - H/O mitral valve replacement 04/16/2018 29-mm [facility] [facility] Epic bioprosthesis - IBS (irritable bowel syndrome) - Mitral valve regurgitation - Mitral valve stenosis - Pulmonary HTN (HCC) - S/P left atrial appendage ligation 04/16/2018 exclusion of left atrial appendage with a 45 mm atrial clip. - Tricuspid regurgitation PAST SURGICAL HISTORY Procedure Laterality Date - ATRIAL APPENDAGE LIGATION 04/16/2018 exclusion of left atrial appendage with a 45 mm atrial clip. - BREAST BIOPSY - CHOLECYSTECTOMY HX 10/02/2011 - HYSTERECTOMY HX M[place]ELLEN/BLO - LEG SURGERY HX - MAZE PROCEDURE 04/16/2018 maze procedure with left and right atrial lesion sets (radiofrequency clamp and cryo) - PICC LINE INSERTION (PICC TEAM) (AK) 04/21/2018 - REPLACEMENT OF MITRAL VALVE 04/16/2018 29-mm [facility] [facility] Epic bioprosthesis FAMILY HISTORY Problem Relation Age of Onset - Breast Cancer Mother stage III - Coronary Artery Disease Mother mother, uncle - Cancer Paternal Grandfather - Colon Cancer Maternal Grandmother - Diabetes Other uncle - Stroke Maternal Grandfather Social History Substance Use Topics - Smoking status: Never Smoker - Smokeless tobacco: Never Used - Alcohol use No ALLERGIES No Known Allergies Medications: Current Outpatient Prescriptions: amiodarone (PACERONE) 200 mg tablet Take 200 mg three times daily. Disp: 90 tablet Rfl: 3 warfarin (COUMADIN) 1 mg tablet Take 0.5mg (1/2 tablet) on Thursday, Thursday, and Thursday and no warfarin on other days. Disp: Rfl: metoprolol tartrate, short acting, (LOPRESSOR) 25 mg tablet Take 1 tablet by mouth every 8 hours. Disp: 30 tablet Rfl: 2 furosemide (LASIX) 40 mg tablet Take 0.5 tablets by mouth once daily as needed. For weight gain or leg swelling. (Patient not taking: Reported on 05/25/2018 ) Disp: Rfl: potassium chloride ER (K-DUR, KLOR-CON) 20 mEq tablet Take 1 tablet by mouth once daily. Take daily as needed when takes furosemide (water pill) (Patient not taking: Reported on 05/25/2018 ) Disp: 30 tablet Rfl: 3 atorvastatin (LIPITOR) 10 mg tablet TAKE 1 TABLET BY MOUTH EVERY NIGHT AT BEDTIME Disp: 90 tablet Rfl: 1 acetaminophen (TYLENOL) 325 mg tablet Take 2 tablets by mouth every 4 hours as needed. Disp: Rfl: ferrous sulfate 325 mg (65 mg iron) tablet Take 1 tablet by mouth twice daily with meals. Disp: 60 tablet Rfl: 1 melatonin 3 mg tablet Take 1 tablet by mouth at bedtime as needed (insomnia). Disp: Rfl: ascorbic acid, vitamin C, (VITAMIN C) 500 mg tablet Take 1 tablet by mouth twice daily. Disp: Rfl: pramipexole (MIRAPEX) 0.25 mg tablet Take 1 tablet by mouth daily at bedtime. Disp: 30 tablet Rfl: 1 PROAIR HFA 90 mcg/actuation inhaler Inhale 2 Puffs as instructed every 6 hours as needed for Wheezing/Shortness of Breath. Disp: 1 Inhaler Rfl: 0 cholestyramine (QUESTRAN) 4 gram packet Take 1 Packet by mouth once daily. Disp: 30 Packet Rfl: 0 alendronate (FOSAMAX) 70 mg tablet Take 1 tablet by mouth once each week. Disp: 4 tablet Rfl: 0 aspirin, enteric coated (ASPIRIN, ENTERIC COATED) 81 mg EC tablet Take 1 tablet by mouth once daily. Disp: 30 tablet Rfl: 1 cyclobenzaprine (FLEXERIL) 10 mg tablet Take 0.5 tablets by mouth twice daily as needed for Pain. Disp: 10 tablet Rfl: 0 Cyanocobalamin (VITAMIN B-12) 1,000 mcg subl Dissolve 1 tablet under the tongue once daily. Disp: Rfl: calcium carbonate (CALTRATE) 600 mg calcium (1,500 mg) tab Take 600 mg by mouth once daily. Disp: Rfl: gabapentin (NEURONTIN) 100 mg capsule Take 200 mg by mouth daily at bedtime. Disp: Rfl: Biotin-Silicon Cera-D-Srxdrfav 5,000 mcg-100 mg- 50 mg tab Take 1 tablet by mouth once daily. Disp: Rfl: multivitamin tablet Take 1 tablet by mouth once daily. Disp: Rfl: Cholecalciferol, Vitamin D3, 1,000 unit cap Take 1,000 Units by mouth once daily. Disp: Rfl: No current facility-administered medications for this visit. Review of Systems Constitutional: Positive for malaise/fatigue. Respiratory: Positive for shortness of breath. Negative for wheezing. Denies Chest Tightness Cardiovascular: Positive for palpitations and leg swelling. Gastrointestinal: Negative for abdominal pain, blood in stool and nausea. Genitourinary: Negative for hematuria. Skin: Negative for rash. Neurological: Positive for weakness. Negative for dizziness, speech change and loss of consciousness. Denies syncope Physical Examination: Vitals:104/66 p 115 149 LB Last 2 Encounter Wt Readings: Date: Wt: 05/25/2018 150 lb (68 kg) 04/30/2018 144 lb (65.3 kg) Physical Exam Constitutional: She is oriented to person, place, and time and well-developed, well-nourished, and in no distress. No distress. Appears in good health HENT: Head: Normocephalic. Eyes: Pupils equal, eyelids appear normal Neck: Normal range of motion.. No thyromegaly present. no carotid bruit heard, cannot assess for JVD well. Cardiovascular: Rapid and irregular, no S3, no definite murmur, apex nonpalpable, no RV lift Pulses: Carotid pulses are 2+ on the right side, and 2+ on the left side. Radial pulses are 2+ on the right side, and 2+ on the left side. Pulmonary/Chest: Healed sternotomy, diminished breath sounds, no accessory muscle use or wheeze Abdominal: Soft. No obvious hepatomegaly Musculoskeletal: 1+ bilateral ankle to calf edema, no calf tenderness Neurological: She is alert and oriented to person, place, and time. Normal mentation Skin: Skin is warm and dry. No rash noted. She is not diaphoretic. Psychiatric: Slightly depressed affect, normal speech Pertinent Labs: CBC: HGB (g/dL) Date Value 04/22/2018 7.9 Hematocrit (%) Date Value 04/22/2018 24.5 WBC (thou/cmm) Date Value 04/22/2018 6.51 Platelet Count (thou/cmm) Date Value 04/22/2018 195 BMP: Glucose (mg/dL) Date Value 04/22/2018 90 Potassium (mEq/L) Date Value 04/22/2018 4.2 Sodium (mEq/L) Date Value 04/22/2018 139 Chloride (mEq/L) Date Value 04/22/2018 108 CO2 (mEq/L) Date Value 04/22/2018 23 Creatinine (mg/dL) Date Value 04/22/2018 0.89 BUN (mg/dL) Date Value 04/22/2018 28 Anion Gap (no units) Date Value 04/22/2018 12 Calcium (mg/dL) Date Value 04/22/2018 7.8 INR: Recent Labs 05/25/18 1300 INR 4.11* TSH: TSH Date Value Ref Range Status 10/01/2017 1.000 0.358 - 3.740 uIU/mL Final Lipid Profile: Cholesterol, Total Date Value Ref Range Status 03/26/2018 94 0 - 199 mg/dL Final Comment: <200 Desirable 200-240 Borderline >240 High HDL Cholesterol Date Value Ref Range Status 03/26/2018 25 >40 mg/dL Final LDL Calculated Date Value Ref Range Status 03/26/2018 48 mg/dL Final Comment: No CAD and with fewer than 2 CAD risk factors <160 mg/dL No CAD but with 2 or more CAD risk factors <130 mg/dL Definite CAD or other atherosclerotic disease <100 mg/dL Triglyceride Date Value Ref Range Status 03/26/2018 103 0 - 149 mg/dL Final Comment: < 200 Desirable Result invalid if not a fasting specimen. Hemoglobin A1C: No results found for: HGBA1C Most Recent Cardiac Testing Assessment and Plan: 1. Rheumatic heart disease: She is now status post tissue #29 bioprosthesis about a month ago, along with bilateral maze procedure and left atrial appendage ligation. Her initial postoperative echo showed EF 60% and a normal tissue [facility]. Zenon mitral valve. She requires SBE prophylaxis. She did not have any significant CAD. Preoperatively she had severe mitral stenosis and mild to moderate mitral regurgitation along with moderate pulmonary hypertension. She had minimal aortic stenosis that did not require valve replacement. 2. A. fib: This is been very difficult: Preoperatively was hard to manage her heart rate and postoperatively she has had recurrence which is not that surprising despite he maze procedure. She has been placed on Cardizem and metoprolol and amiodarone for rate control and to try to get her back in sinus rhythm. She is on warfarin because of the mid rheumatic disease and she cannot use a NOAC. She clearly needs to be cardioverted and I will do this on with MEERA guidance since she has not been therapeutic on Coumadin for 3-4 weeks. She is already on amiodarone and is well loaded. I will have her stop the Cardizem after tonight's dose to avoid bradycardia after the cardioversion. If I am unable to restore maintain sinus rhythm, I will have her seen by the EP service because she may need pacer and AV node ablation to allow acceptable heart rate control. She and her family are in agreement with this plan. I did review risk benefits and alternatives and they wish to proceed on . I will keep you apprised of the results. 3. Anemia: Hemoglobin has been low after surgery but was up to 7.9 on April 22. 4. Lipids: She is on statin therapy. Please send any lab work Electronically signed by Jean-Pierre Perez MD on May 25, 2018, 2:38 PM CNOV Observed: 05/25/2018 Status: COMPLETED Source: [place] 2:30 PM [facility] OTHER CAMPUS REPOSITORY Office Visit (AGCARDPOB) QUINCYGLORIA J ([id number]) 1940 F Date Time Provider Department 05/25/18 2:30 PM JEAN-PIERRE PEREZARDCEZAR During your visit today, we recorded the following information about you: Pulse Respiration Blood pressure Weight 113/minute 18/minute 104/66 67.9 kg Height 1.575 m Jean-Pierre Perez MD 05/25/2018 3:12 PM Signed Chief Complaint Patient presents with: Cardiology Follow Up History of Present Illness: Gloria Mathew is a 77 year old female here for somewhat urgent follow-up after recent open heart surgery for rheumatic mitral valve disease. She's had issues with rapid A. fib that occurred before and after surgery. She has a known rheumatic mitral valve and was being followed expectantly until she developed rapid A. fib that was refractory and some degree of heart failure due to the A. fib and the mitral valve disease. Her catheter did not show significant CAD and her MEERA showed severe mitral stenosis and mild to moderate mitral regurgitation with normal LV function. Dr. Arroyo performed mitral valve replacement with a tissue #29 valve along with Maze procedure and left atrial appendage ligation. She was treated with amiodarone postoperatively and was started on warfarin. Over the last 3-4 weeks her excellent advanced practice nurse, Margie Kahn, has been trying to manage her A. fib and has been in touch with me. However even with more aggressive rate control and increase in amiodarone her rate remains high. She was in the [place] [facility] this weekend and I did add a little Cardizem and was increased by the [place] associate data scientist Dr. Gibson. She is now here for follow-up and says she simply is wiped out. She's had no actual syncope stroke or TIA. She's had no major bleeding on the Coumadin. Her sternotomy is healing well. She has mild edema. She's had no chest discomfort. She's had no GI bleeding. PAST MEDICAL HISTORY Diagnosis Date - Atrial fibrillation (HCC) - Breast mass, right - H/O maze procedure 04/16/2018 maze procedure with left and right atrial lesion sets (radiofrequency clamp and cryo) - H/O mitral valve replacement 04/16/2018 29-mm [facility]. Zenon Epic bioprosthesis - IBS (irritable bowel syndrome) - Mitral valve regurgitation - Mitral valve stenosis - Pulmonary HTN (HCC) - S/P left atrial appendage ligation 04/16/2018 exclusion of left atrial appendage with a 45 mm atrial clip. - Tricuspid regurgitation PAST SURGICAL HISTORY Procedure Laterality Date - ATRIAL APPENDAGE LIGATION 04/16/2018 exclusion of left atrial appendage with a 45 mm atrial clip. - BREAST BIOPSY - CHOLECYSTECTOMY HX 10/02/2011 - HYSTERECTOMY HX MARYELLEN/BLO - LEG SURGERY HX - MAZE PROCEDURE 04/16/2018 maze procedure with left and right atrial lesion sets (radiofrequency clamp and cryo) - PICC LINE INSERTION (PICC TEAM) ([place]) 04/21/2018 - REPLACEMENT OF MITRAL VALVE 04/16/2018 29-mm [facility] Zenon Epic bioprosthesis FAMILY HISTORY Problem Relation Age of Onset - Breast Cancer Mother stage III - Coronary Artery Disease Mother mother, uncle - Cancer Paternal Grandfather - Colon Cancer Maternal Grandmother - Diabetes Other uncle - Stroke Maternal Grandfather Social History Substance Use Topics - Smoking status: Never Smoker - Smokeless tobacco: Never Used - Alcohol use No ALLERGIES No Known Allergies Medications: Current Outpatient Prescriptions: amiodarone (PACERONE) 200 mg tablet Take 200 mg three times daily. Disp: 90 tablet Rfl: 3 warfarin (COUMADIN) 1 mg tablet Take 0.5mg (1/2 tablet) on Thursday, Thursday, and Thursday and no warfarin on other days. Disp: Rfl: metoprolol tartrate, short acting, (LOPRESSOR) 25 mg tablet Take 1 tablet by mouth every 8 hours. Disp: 30 tablet Rfl: 2 furosemide (LASIX) 40 mg tablet Take 0.5 tablets by mouth once daily as needed. For weight gain or leg swelling. (Patient not taking: Reported on 05/25/2018 ) Disp: Rfl: potassium chloride ER (K-DUR, KLOR-CON) 20 mEq tablet Take 1 tablet by mouth once daily. Take daily as needed when takes furosemide (water pill) (Patient not taking: Reported on 05/25/2018 ) Disp: 30 tablet Rfl: 3 atorvastatin (LIPITOR) 10 mg tablet TAKE 1 TABLET BY MOUTH EVERY NIGHT AT BEDTIME Disp: 90 tablet Rfl: 1 acetaminophen (TYLENOL) 325 mg tablet Take 2 tablets by mouth every 4 hours as needed. Disp: Rfl: ferrous sulfate 325 mg (65 mg iron) tablet Take 1 tablet by mouth twice daily with meals. Disp: 60 tablet Rfl: 1 melatonin 3 mg tablet Take 1 tablet by mouth at bedtime as needed (insomnia). Disp: Rfl: ascorbic acid, vitamin C, (VITAMIN C) 500 mg tablet Take 1 tablet by mouth twice daily. Disp: Rfl: pramipexole (MIRAPEX) 0.25 mg tablet Take 1 tablet by mouth daily at bedtime. Disp: 30 tablet Rfl: 1 PROAIR HFA 90 mcg/actuation inhaler Inhale 2 Puffs as instructed every 6 hours as needed for Wheezing/Shortness of Breath. Disp: 1 Inhaler Rfl: 0 cholestyramine (QUESTRAN) 4 gram packet Take 1 Packet by mouth once daily. Disp: 30 Packet Rfl: 0 alendronate (FOSAMAX) 70 mg tablet Take 1 tablet by mouth once each week. Disp: 4 tablet Rfl: 0 aspirin, enteric coated (ASPIRIN, ENTERIC COATED) 81 mg EC tablet Take 1 tablet by mouth once daily. Disp: 30 tablet Rfl: 1 cyclobenzaprine (FLEXERIL) 10 mg tablet Take 0.5 tablets by mouth twice daily as needed for Pain. Disp: 10 tablet Rfl: 0 Cyanocobalamin (VITAMIN B-12) 1,000 mcg subl Dissolve 1 tablet under the tongue once daily. Disp: Rfl: calcium carbonate (CALTRATE) 600 mg calcium (1,500 mg) tab Take 600 mg by mouth once daily. Disp: Rfl: gabapentin (NEURONTIN) 100 mg capsule Take 200 mg by mouth daily at bedtime. Disp: Rfl: Biotin-Silicon Tkui-W-Fundgqmj 5,000 mcg-100 mg- 50 mg tab Take 1 tablet by mouth once daily. Disp: Rfl: multivitamin tablet Take 1 tablet by mouth once daily. Disp: Rfl: Cholecalciferol, Vitamin D3, 1,000 unit cap Take 1,000 Units by mouth once daily. Disp: Rfl: No current facility-administered medications for this visit. Review of Systems Constitutional: Positive for malaise/fatigue. Respiratory: Positive for shortness of breath. Negative for wheezing. Denies Chest Tightness Cardiovascular: Positive for palpitations and leg swelling. Gastrointestinal: Negative for abdominal pain, blood in stool and nausea. Genitourinary: Negative for hematuria. Skin: Negative for rash. Neurological: Positive for weakness. Negative for dizziness, speech change and loss of consciousness. Denies syncope Physical Examination: Vitals:104/66 p 115 149 LB Last 2 Encounter Wt Readings: Date: Wt: 05/25/2018 150 lb (68 kg) 04/30/2018 144 lb (65.3 kg) Physical Exam Constitutional: She is oriented to person, place, and time and well-developed, well-nourished, and in no distress. No distress. Appears in good health HENT: Head: Normocephalic. Eyes: Pupils equal, eyelids appear normal Neck: Normal range of motion.. No thyromegaly present. no carotid bruit heard, cannot assess for JVD well. Cardiovascular: Rapid and irregular, no S3, no definite murmur, apex nonpalpable, no RV lift Pulses: Carotid pulses are 2+ on the right side, and 2+ on the left side. Radial pulses are 2+ on the right side, and 2+ on the left side. Pulmonary/Chest: Healed sternotomy, diminished breath sounds, no accessory muscle use or wheeze Abdominal: Soft. No obvious hepatomegaly Musculoskeletal: 1+ bilateral ankle to calf edema, no calf tenderness Neurological: She is alert and oriented to person, place, and time. Normal mentation Skin: Skin is warm and dry. No rash noted. She is not diaphoretic. Psychiatric: Slightly depressed affect, normal speech Pertinent Labs: CBC: HGB (g/dL) Date Value 04/22/2018 7.9 Hematocrit (%) Date Value 04/22/2018 24.5 WBC (thou/cmm) Date Value 04/22/2018 6.51 Platelet Count (thou/cmm) Date Value 04/22/2018 195 BMP: Glucose (mg/dL) Date Value 04/22/2018 90 Potassium (mEq/L) Date Value 04/22/2018 4.2 Sodium (mEq/L) Date Value 04/22/2018 139 Chloride (mEq/L) Date Value 04/22/2018 108 CO2 (mEq/L) Date Value 04/22/2018 23 Creatinine (mg/dL) Date Value 04/22/2018 0.89 BUN (mg/dL) Date Value 04/22/2018 28 Anion Gap (no units) Date Value 04/22/2018 12 Calcium (mg/dL) Date Value 04/22/2018 7.8 INR: Recent Labs 05/25/18 1300 INR 4.11* TSH: TSH Date Value Ref Range Status 10/01/2017 1.000 0.358 - 3.740 uIU/mL Final Lipid Profile: Cholesterol, Total Date Value Ref Range Status 03/26/2018 94 0 - 199 mg/dL Final Comment: <200 Desirable 200-240 Borderline >240 High HDL Cholesterol Date Value Ref Range Status 03/26/2018 25 >40 mg/dL Final LDL Calculated Date Value Ref Range Status 03/26/2018 48 mg/dL Final Comment: No CAD and with fewer than 2 CAD risk factors <160 mg/dL No CAD but with 2 or more CAD risk factors <130 mg/dL Definite CAD or other atherosclerotic disease <100 mg/dL Triglyceride Date Value Ref Range Status 03/26/2018 103 0 - 149 mg/dL Final Comment: < 200 Desirable Result invalid if not a fasting specimen. Hemoglobin A1C: No results found for: HGBA1C Most Recent Cardiac Testing Assessment and Plan: 1. Rheumatic heart disease: She is now status post tissue #29 bioprosthesis about a month ago, along with bilateral maze procedure and left atrial appendage ligation. Her initial postoperative echo showed EF 60% and a normal tissue [facility]. Zenon mitral valve. She requires SBE prophylaxis. She did not have any significant CAD. Preoperatively she had severe mitral stenosis and mild to moderate mitral regurgitation along with moderate pulmonary hypertension. She had minimal aortic stenosis that did not require valve replacement. 2. A. fib: This is been very difficult: Preoperatively was hard to manage her heart rate and postoperatively she has had recurrence which is not that surprising despite he maze procedure. She has been placed on Cardizem and metoprolol and amiodarone for rate control and to try to get her back in sinus rhythm. She is on warfarin because of the mid rheumatic disease and she cannot use a NOAC. She clearly needs to be cardioverted and I will do this on with MEERA guidance since she has not been therapeutic on Coumadin for 3-4 weeks. She is already on amiodarone and is well loaded. I will have her stop the Cardizem after tonight's dose to avoid bradycardia after the cardioversion. If I am unable to restore maintain sinus rhythm, I will have her seen by the EP service because she may need pacer and AV node ablation to allow acceptable heart rate control. She and her family are in agreement with this plan. I did review risk benefits and alternatives and they wish to proceed on . I will keep you apprised of the results. 3. Anemia: Hemoglobin has been low after surgery but was up to 7.9 on April 22. 4. Lipids: She is on statin therapy. Please send any lab work Electronically signed by Jean-Pierre Perez MD on May 25, 2018, 2:38 PM Carey Franco LPN 05/25/2018 2:47 PM Signed is here for a follow up S/P hospital. Patient c/o occasional palpitations. Jean-Pierre Perez MD 05/25/2018 3:04 PM Signed Stop Diltiazem(cardizem) after tonight's dose Referring Provider: SELF [200] Allergies As of Date: 05/25/2018 (No Known Allergies) Date Reviewed: 05/25/2018 Reviewed by: Carey Franco - Fully Assessed Reason for Visit: Cardiology Follow Up [1732] Primary Visit Diagnosis:Paroxysmal atrial fibrillation (HCC) [I48.0] Order(s):EKG WITH INTERPRETATION [97410MJS] Order #: [id number]: 1 CARDIOVERSION, ELECTIVE, ELECTRICAL [[id number]] Order #: [id number]: 1 ECHO TRANSESOPHAGEAL [[id number]] Order #: [id number]: 1 FUTURE Prescriptions as of 05/25/2018 Sig: AMIODARONE 200 MG TABLET Take 200 mg three times daily. WARFARIN 1 MG TABLET Take 0.5mg (1/2 tablet) on Mo* METOPROLOL TARTRATE 25 MG TAB* Take 1 tablet by mouth every * FUROSEMIDE 40 MG TABLET Take 0.5 tablets by mouth onc* ATORVASTATIN 10 MG TABLET TAKE 1 TABLET BY MOUTH EVERY * ACETAMINOPHEN 325 MG TABLET Take 2 tablets by mouth every* FERROUS SULFATE 325 MG (65 MG* Take 1 tablet by mouth twice * MELATONIN 3 MG TABLET Take 1 tablet by mouth at bed* ASCORBIC ACID (VITAMIN C) 500* Take 1 tablet by mouth twice * PRAMIPEXOLE 0.25 MG TABLET Take 1 tablet by mouth daily * PROAIR HFA 90 MCG/ACTUATION A* Inhale 2 Puffs as instructed * CHOLESTYRAMINE (WITH SUGAR) 4* Take 1 Packet by mouth once d* ALENDRONATE 70 MG TABLET Take 1 tablet by mouth once e* ASPIRIN 81 MG TABLET,DELAYED * Take 1 tablet by mouth once d* CYCLOBENZAPRINE 10 MG TABLET Take 0.5 tablets by mouth twi* CYANOCOBALAMIN (VIT B-12) 1,0* Dissolve 1 tablet under the t* CALCIUM CARBONATE 600 MG CALC* Take 600 mg by mouth once mirta* GABAPENTIN 100 MG CAPSULE Take 200 mg by mouth daily at* BIOTIN 5,000 MCG-SILICON DIOX* Take 1 tablet by mouth once d* MULTIVITAMIN TABLET Take 1 tablet by mouth once d* CHOLECALCIFEROL (VITAMIN D3) * Take 1,000 Units by mouth onc* POTASSIUM CHLORIDE ER 20 MEQ * Take 1 tablet by mouth once d* Medication notes this encounter METOPROLOL TARTRATE 25 MG TABLET >> Carey Franco LPN 05/25/2018 2:46 PM >> CAREY FRANCO May 25, 2018 2:46 PM Patient states taking 75 mg three times daily POTASSIUM CHLORIDE ER 20 MEQ TABLET,EXTENDED RELEASE(PART/CRYST) >> Carey Franco LPN 05/25/2018 2:46 PM >> CAREY FRANCO May 25, 2018 2:46 PM Patient states no longer taking Problem List As Of Date 05/25/2018 Noted Resolved Fibrocystic breast changes [N60.19] INVALID FOR*07/11/2015 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 Mitral regurgitation [I34.0] INVALID FOR*04/18/2018 More... S/P mitral valve replacement with bioprosthetic*INVALID FOR* S/P Maze operation for atrial fibrillation [Z98*INVALID FOR* Hypotension [I95.9] INVALID FOR* S/P left atrial appendage ligation [Z98.890] INVALID FOR* Stress hyperglycemia [R73.9] INVALID FOR* Anemia associated with acute blood loss [D62] INVALID FOR* Leukocytosis [D72.829] INVALID FOR* Malnutrition of mild degree (HCC) [E44.1] INVALID FOR* Other instructions from your clinician: Stop Diltiazem(cardizem) after tonight's dose Visit Notes: >> Carey Tee May 25, 2018 2:46 PM Status: Signed is here for a follow up S/P hospital. Patient c/o occasional palpitations. Follow-up and Disposition History Recorded Letter Text Encounter Status:Closed by JEAN-PIERRE PEREZ MD on 05/25/18 [place] Observed: 05/25/2018 Status: COMPLETED Source: [place] 1:30 PM [facility] OTHER [facility] REPOSITORY Office Visit (AGVASACC) QUINCYGLORIA Moreland ([id number]) 1940 F Date Time Provider Department 05/25/18 1:30 PM MARGIE KHAN During your visit today, we recorded the following information about you: Pulse Respiration Blood pressure Weight 96/minute 18/minute 122/70 68 kg Height 1.575 m Margie Khan APRN.DITTO MACHINE OPERATOR 05/25/2018 2:30 PM Signed HPI: Gloria Mathew is a 77 year old female that returns to the office today for 1 month post-discharge follow up for mitral valve regurgitation and atrial fibrillation s/p Mitral valve replacement with 29-mm [facility] Zenon Epic bioprosthesis, Bilateral MAZE procedure with exclusion of the left atrial appendage with # 45mm AtriCure Clip performed on 04/16/2018. Her post-operative course was complicated by anemia status post PRBC ?1 unit, amnio was initiated for atrial fibrillation prior prophylaxis taper. She was discharged on 04/23/2018. Since her last visit in this office, there were several phone calls regarding elevated heart rate and low BP. The metoprolol was increased and subsequently the amiodarone was increased. She reports that the elevated heart rate persisted and she was admitted to [facility] with Afib and RVR. There she saw Dr Gibson who increased her metoprolol to 75 mg BID and started her on Diltiazem 120 mg BID. She was also treated for pneumonia with Augmentin. Her BP is better today 120/70. She sees Dr Perez later today. Today, Gloria Mathew, reports She has ongoing weakness and fatigue with the atrial fibrillation. Her coumadin has been down to 1.7, she is managed by the coumadin clinic. Pain: Denies CV: (Dizzy, palpitations, BP, Edema) weakness and fatigue when in atrial fibrillation SOB/SENA: Denies Fever: Denies (even with concern for pna.) Diet: Improving Bowel: regular Activity: ongoing weakness prevents her from increasing activity C/O: ongoing weakness Cardiology F/U: Today Cardiac Rehab: Deferred Subjective: Current Outpatient Prescriptions: amiodarone (PACERONE) 200 mg tablet Take 200 mg three times daily. warfarin (COUMADIN) 1 mg tablet Take 0.5mg (1/2 tablet) on Thursday, Thursday, and Thursday and no warfarin on other days. metoprolol tartrate, short acting, (LOPRESSOR) 25 mg tablet Take 1 tablet by mouth every 8 hours. furosemide (LASIX) 40 mg tablet Take 0.5 tablets by mouth once daily as needed. For weight gain or leg swelling. potassium chloride ER (K-DUR, KLOR-CON) 20 mEq tablet Take 1 tablet by mouth once daily. Take daily as needed when takes furosemide (water pill) atorvastatin (LIPITOR) 10 mg tablet TAKE 1 TABLET BY MOUTH EVERY NIGHT AT BEDTIME acetaminophen (TYLENOL) 325 mg tablet Take 2 tablets by mouth every 4 hours as needed. ferrous sulfate 325 mg (65 mg iron) tablet Take 1 tablet by mouth twice daily with meals. melatonin 3 mg tablet Take 1 tablet by mouth at bedtime as needed (insomnia). ascorbic acid, vitamin C, (VITAMIN C) 500 mg tablet Take 1 tablet by mouth twice daily. pramipexole (MIRAPEX) 0.25 mg tablet Take 1 tablet by mouth daily at bedtime. PROAIR HFA 90 mcg/actuation inhaler Inhale 2 Puffs as instructed every 6 hours as needed for Wheezing/Shortness of Breath. cholestyramine (QUESTRAN) 4 gram packet Take 1 Packet by mouth once daily. alendronate (FOSAMAX) 70 mg tablet Take 1 tablet by mouth once each week. aspirin, enteric coated (ASPIRIN, ENTERIC COATED) 81 mg EC tablet Take 1 tablet by mouth once daily. cyclobenzaprine (FLEXERIL) 10 mg tablet Take 0.5 tablets by mouth twice daily as needed for Pain. Cyanocobalamin (VITAMIN B-12) 1,000 mcg subl Dissolve 1 tablet under the tongue once daily. calcium carbonate (CALTRATE) 600 mg calcium (1,500 mg) tab Take 600 mg by mouth once daily. gabapentin (NEURONTIN) 100 mg capsule Take 200 mg by mouth daily at bedtime. Biotin-Silicon Sgop-B-Sxhqoawc 5,000 mcg-100 mg- 50 mg tab Take 1 tablet by mouth once daily. multivitamin tablet Take 1 tablet by mouth once daily. Cholecalciferol, Vitamin D3, 1,000 unit cap Take 1,000 Units by mouth once daily. No current facility-administered medications for this visit. Patient has no known allergies. PAST MEDICAL HISTORY Diagnosis Date - Atrial fibrillation (HCC) - Breast mass, right - H/O maze procedure 04/16/2018 maze procedure with left and right atrial lesion sets (radiofrequency clamp and cryo) - H/O mitral valve replacement 04/16/2018 29-mm [facility] Zenon Epic bioprosthesis - IBS (irritable bowel syndrome) - Mitral valve regurgitation - Mitral valve stenosis - Pulmonary HTN (HCC) - S/P left atrial appendage ligation 04/16/2018 exclusion of left atrial appendage with a 45 mm atrial clip. - Tricuspid regurgitation PAST SURGICAL HISTORY Procedure Laterality Date - ATRIAL APPENDAGE LIGATION 04/16/2018 exclusion of left atrial appendage with a 45 mm atrial clip. - BREAST BIOPSY - CHOLECYSTECTOMY HX 10/02/2011 - HYSTERECTOMY HX MARYELLEN/BLO - LEG SURGERY HX - MAZE PROCEDURE 04/16/2018 maze procedure with left and right atrial lesion sets (radiofrequency clamp and cryo) - PICC LINE INSERTION (PICC TEAM) (AK) 04/21/2018 - REPLACEMENT OF MITRAL VALVE 04/16/2018 29-mm [facility] Zenon Epic bioprosthesis FAMILY HISTORY Problem Relation Age of Onset - Breast Cancer Mother stage III - Coronary Artery Disease Mother mother, uncle - Cancer Paternal Grandfather - Colon Cancer Maternal Grandmother - Diabetes Other uncle - Stroke Maternal Grandfather Social History Substance Use Topics - Smoking status: Never Smoker - Smokeless tobacco: Never Used - Alcohol use No Review of Systems Constitutional: Negative for chills, fever and malaise/fatigue. Weight loss: 140 lbs is good dry weight. HENT: Negative for sore throat. Respiratory: Negative for cough, sputum production, shortness of breath and wheezing. Cardiovascular: Positive for leg swelling (when on her feet for long periods of time). Negative for chest pain, palpitations, orthopnea, claudication and PND. Gastrointestinal: Negative for abdominal pain, blood in stool, constipation, diarrhea, melena, nausea and vomiting. Genitourinary: Negative for dysuria. Musculoskeletal: Negative for falls and joint pain. Skin: No new lesions Neurological: Negative for dizziness, tingling, sensory change, focal weakness, weakness and headaches. Endo/Heme/Allergies: Does not bruise/bleed easily. Psychiatric/Behavioral: Negative for depression. Objective: One month post- op Chest X-ray is done and reviewed today. Pending Physical Examination: Vitals:BP 122/70 Pulse 96 Resp 18 Ht 5' 2 (1.58m) Wt 150 lb (68.0kg) SpO2 98% BMI 27.43 kg/(m2). Last 2 Encounter Wt Readings: Date: Wt: 05/25/2018 150 (home weight has been stable at 139-140) 04/30/2018 144 lb (65.3 kg) 04/09/2018 142 lb (64.4 kg) Physical Exam Constitutional: She is oriented to person, place, and time and well-developed, well-nourished, and in no distress. HENT: Head: Normocephalic. Eyes: Pupils are equal, round, and reactive to light. Cardiovascular: Normal rate, S1 normal, S2 normal and intact distal pulses. No murmur heard. Irregularly irregular. Elevated rate 110-120 per auscultation Pulmonary/Chest: Effort normal and breath sounds normal. Abdominal: Soft. Normal appearance and bowel sounds are normal. Musculoskeletal: She exhibits edema (2-3+ pitting). Neurological: She is alert and oriented to person, place, and time. Gait normal. Skin: Skin is warm and intact. Midsternal incision clean dry, well approximated, no redness or drainage Sternum is stable Ct Sites healing Psychiatric: Mood and affect normal. Assessment and Plan: ASSESSMENT/PLAN: 1. S/P mitral valve replacement with bioprosthetic valve - ICD9: V42.2, ICD10: Z95.3 (primary diagnosis) -With full maze and LAAC -Use lasix daily as needed if weight is greater than 145 lbs, add potassium with lasix -Defer cardiac rehab until after next visit -Return 3-4 weeks with CXR 2. Persistent atrial fibrillation (HCC) - ICD9: 427.31, ICD10: I48.1 - Follow-up with Dr Perez with the following medication changes: Diltiazem, Increased metoprolol, increased amiodarone Margie Khan APRN.CNP In summary, Patient is doing fair overall after her MVR/MAZE/LAAC surgery, with no major complaints. Patient is released to drive, work. She should return in 3-*4 weeks with CXR. Thanks. Electronically signed by Margie Khan APRN.CNP on May 25, 2018, 12:45 PM Margie Khan APRN.CNP 05/25/2018 12:49 PM Signed - You may drive! - Please begin cardiac rehab. If they have not contacted you, please call them: [phone] ([facility]) or [phone] ([facility]) - Weight bearing restriction remains: No lifting more than 10 lbs. You may begin to gradually increase the amount of weight bearing. Cardiac rehab will help with this. - Please see your associate data scientist regularly. They will take over medication management. - Please feel free to call us if you have any post-operative concerns. Thank you for coming to see me today!! Margie Khan APRN.CNP Referring Provider: SAROJ AVELAR [[id number]] Allergies As of Date: 05/25/2018 (No Known Allergies) Date Reviewed: 05/25/2018 Reviewed by: Donald Jo LPN - Fully Assessed Reason for Visit: Valvular Heart Disease [169] Cmt: Gloria is post op 04/16/18 MVR Primary Visit Diagnosis:S/P mitral valve replacement with bioprosthetic valve [Z95.3] Other Visit Diagnosis:Persistent atrial fibrillation (HCC) [I48.1] Prescriptions as of 05/25/2018 Sig: AMIODARONE 200 MG TABLET Take 200 mg three times daily. WARFARIN 1 MG TABLET Take 0.5mg (1/2 tablet) on Mo* METOPROLOL TARTRATE 25 MG TAB* Take 1 tablet by mouth every * ATORVASTATIN 10 MG TABLET TAKE 1 TABLET BY MOUTH EVERY * ACETAMINOPHEN 325 MG TABLET Take 2 tablets by mouth every* FERROUS SULFATE 325 MG (65 MG* Take 1 tablet by mouth twice * MELATONIN 3 MG TABLET Take 1 tablet by mouth at bed* ASCORBIC ACID (VITAMIN C) 500* Take 1 tablet by mouth twice * PRAMIPEXOLE 0.25 MG TABLET Take 1 tablet by mouth daily * PROAIR HFA 90 MCG/ACTUATION A* Inhale 2 Puffs as instructed * CHOLESTYRAMINE (WITH SUGAR) 4* Take 1 Packet by mouth once d* ALENDRONATE 70 MG TABLET Take 1 tablet by mouth once e* ASPIRIN 81 MG TABLET,DELAYED * Take 1 tablet by mouth once d* CYCLOBENZAPRINE 10 MG TABLET Take 0.5 tablets by mouth twi* CYANOCOBALAMIN (VIT B-12) 1,0* Dissolve 1 tablet under the t* GABAPENTIN 100 MG CAPSULE Take 200 mg by mouth daily at* BIOTIN 5,000 MCG-SILICON DIOX* Take 1 tablet by mouth once d* MULTIVITAMIN TABLET Take 1 tablet by mouth once d* CHOLECALCIFEROL (VITAMIN D3) * Take 1,000 Units by mouth onc* FUROSEMIDE 40 MG TABLET Take 0.5 tablets by mouth onc* Patient not taking: Reported on 05/25/2018 POTASSIUM CHLORIDE ER 20 MEQ * Take 1 tablet by mouth once d* Patient not taking: Reported on 05/25/2018 CALCIUM CARBONATE 600 MG CALC* Take 600 mg by mouth once mirta* Problem List As Of Date 05/25/2018 Noted Resolved Fibrocystic breast changes [N60.19] INVALID FOR*07/11/2015 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 Mitral regurgitation [I34.0] INVALID FOR*04/18/2018 More... S/P mitral valve replacement with bioprosthetic*INVALID FOR* S/P Maze operation for atrial fibrillation [Z98*INVALID FOR* Hypotension [I95.9] INVALID FOR* S/P left atrial appendage ligation [Z98.890] INVALID FOR* Stress hyperglycemia [R73.9] INVALID FOR* Anemia associated with acute blood loss [D62] INVALID FOR* Leukocytosis [D72.829] INVALID FOR* Malnutrition of mild degree (HCC) [E44.1] INVALID FOR* Other instructions from your clinician: - You may drive! - Please begin cardiac rehab. If they have not contacted you, please call them: [phone] ([facility]) or [phone] ([facility]) - Weight bearing restriction remains: No lifting more than 10 lbs. You may begin to gradually increase the amount of weight bearing. Cardiac rehab will help with this. - Please see your associate data scientist regularly. They will take over medication management. - Please feel free to call us if you have any post-operative concerns. Thank you for coming to see me today!! Margie Khan APRN.TOM Disposition: Return in about 3 weeks (around 06/15/2018) for Post op. Follow-up and Disposition History Recorded Encounter Status:Closed by MARGIE KHAN CNP on 05/25/18 PROTIME Collected: 05/25/2018 Status: F Source: [facility] 1:00 HEALTH SYSTEM REPOSITORY TYPE CODE TESTS RESULT OUT OF REFERENCE UNITS RANGE LAB PTI(LOINC) 9.7-13.0 sec Prothrombin High Time 38.5 LAB INR(LOINC) 0.90-1.30 INR High 4.11 Result Comment: Note: Reference Range Change Vitamin K Antagonist (VKA) Therapeutic Range: INR 2 to 3 (Target INR of 2.5) Note: For patients treated with VKA drugs, such as warfarin, the [employer] 2012 Guideline recommends a therapeutic INR range of 2 to 3 (target INR of 2.5). This recommendation includes high-risk patients with antiphospholipid syndrome with previous arterial or venous thromboembolism, current-generation mechanical or bioprosthetic aortic heart valve replacement. VKA Therapeutic Range for some Mechanical Valve Replacement: INR 2.5 to 3.5 (Target INR of 3) Note: Patients with mechanical aortic valve replacement and additional risk factors for thromboembolic events (atrial fibrillation, previous thromboembolism, LV dysfunction, hypercoagulable conditions) or an older generation mechanical AVR (i.e., ball in-Cage) or any mechanical MVR should have a INR therapeutic range of 2.5 to 3.5 target INR of 3). Guyatt GH, et al. Chest 2012; 141:7S-47S [place] LAURA, et al. JACC 2017; 70: 252-289 Performed By: #### PT #### [facility] [address] [place], [place] [address] PROGRESS Observed: 05/25/2018 Status: COMPLETED Source: [place] 12:45 PM CLINIC OTHER CAMPUS REPOSITORY HNO ID: [id number] Author: Margie Khan Service: (none) Author Type: Nurse Practitioner Type: Progress Notes Filed: 05/25/2018 2:30 PM Note Text: HPI: Gloria Mathew is a 77 year old female that returns to the office today for 1 month post-discharge follow up for mitral valve regurgitation and atrial fibrillation s/p Mitral valve replacement with 29-mm St Zenon Epic bioprosthesis, Bilateral MAZE procedure with exclusion of the left atrial appendage with # 45mm AtriCure Clip performed on 04/16/2018. Her post-operative course was complicated by anemia status post PRBC ?1 unit, amnio was initiated for atrial fibrillation prior prophylaxis taper. She was discharged on 04/23/2018. Since her last visit in this office, there were several phone calls regarding elevated heart rate and low BP. The metoprolol was increased and subsequently the amiodarone was increased. She reports that the elevated heart rate persisted and she was admitted to [facility] with Afib and RVR. There she saw Dr Gibson who increased her metoprolol to 75 mg BID and started her on Diltiazem 120 mg BID. She was also treated for pneumonia with Augmentin. Her BP is better today 120/70. She sees Dr Perez later today. Today, Gloria Mathew, reports She has ongoing weakness and fatigue with the atrial fibrillation. Her coumadin has been down to 1.7, she is managed by the coumadin clinic. Pain: Denies CV: (Dizzy, palpitations, BP, Edema) weakness and fatigue when in atrial fibrillation SOB/SENA: Denies Fever: Denies (even with concern for pna.) Diet: Improving Bowel: regular Activity: ongoing weakness prevents her from increasing activity C/O: ongoing weakness Cardiology F/U: Today Cardiac Rehab: Deferred Subjective: Current Outpatient Prescriptions: amiodarone (PACERONE) 200 mg tablet Take 200 mg three times daily. warfarin (COUMADIN) 1 mg tablet Take 0.5mg (1/2 tablet) on Thursday, Thursday, and Thursday and no warfarin on other days. metoprolol tartrate, short acting, (LOPRESSOR) 25 mg tablet Take 1 tablet by mouth every 8 hours. furosemide (LASIX) 40 mg tablet Take 0.5 tablets by mouth once daily as needed. For weight gain or leg swelling. potassium chloride ER (K-DUR, KLOR-CON) 20 mEq tablet Take 1 tablet by mouth once daily. Take daily as needed when takes furosemide (water pill) atorvastatin (LIPITOR) 10 mg tablet TAKE 1 TABLET BY MOUTH EVERY NIGHT AT BEDTIME acetaminophen (TYLENOL) 325 mg tablet Take 2 tablets by mouth every 4 hours as needed. ferrous sulfate 325 mg (65 mg iron) tablet Take 1 tablet by mouth twice daily with meals. melatonin 3 mg tablet Take 1 tablet by mouth at bedtime as needed (insomnia). ascorbic acid, vitamin C, (VITAMIN C) 500 mg tablet Take 1 tablet by mouth twice daily. pramipexole (MIRAPEX) 0.25 mg tablet Take 1 tablet by mouth daily at bedtime. PROAIR HFA 90 mcg/actuation inhaler Inhale 2 Puffs as instructed every 6 hours as needed for Wheezing/Shortness of Breath. cholestyramine (QUESTRAN) 4 gram packet Take 1 Packet by mouth once daily. alendronate (FOSAMAX) 70 mg tablet Take 1 tablet by mouth once each week. aspirin, enteric coated (ASPIRIN, ENTERIC COATED) 81 mg EC tablet Take 1 tablet by mouth once daily. cyclobenzaprine (FLEXERIL) 10 mg tablet Take 0.5 tablets by mouth twice daily as needed for Pain. Cyanocobalamin (VITAMIN B-12) 1,000 mcg subl Dissolve 1 tablet under the tongue once daily. calcium carbonate (CALTRATE) 600 mg calcium (1,500 mg) tab Take 600 mg by mouth once daily. gabapentin (NEURONTIN) 100 mg capsule Take 200 mg by mouth daily at bedtime. Biotin-Silicon Beky-P-Kridvpbm 5,000 mcg-100 mg- 50 mg tab Take 1 tablet by mouth once daily. multivitamin tablet Take 1 tablet by mouth once daily. Cholecalciferol, Vitamin D3, 1,000 unit cap Take 1,000 Units by mouth once daily. No current facility-administered medications for this visit. Patient has no known allergies. PAST MEDICAL HISTORY Diagnosis Date - Atrial fibrillation (HCC) - Breast mass, right - H/O maze procedure 04/16/2018 maze procedure with left and right atrial lesion sets (radiofrequency clamp and cryo) - H/O mitral valve replacement 04/16/2018 29-mm [facility] Zenon Epic bioprosthesis - IBS (irritable bowel syndrome) - Mitral valve regurgitation - Mitral valve stenosis - Pulmonary HTN (HCC) - S/P left atrial appendage ligation 04/16/2018 exclusion of left atrial appendage with a 45 mm atrial clip. - Tricuspid regurgitation PAST SURGICAL HISTORY Procedure Laterality Date - ATRIAL APPENDAGE LIGATION 04/16/2018 exclusion of left atrial appendage with a 45 mm atrial clip. - BREAST BIOPSY - CHOLECYSTECTOMY HX 10/02/2011 - HYSTERECTOMY HX MARYELLEN/BLO - LEG SURGERY HX - MAZE PROCEDURE 04/16/2018 maze procedure with left and right atrial lesion sets (radiofrequency clamp and cryo) - PICC LINE INSERTION (PICC TEAM) (AK) 04/21/2018 - REPLACEMENT OF MITRAL VALVE 04/16/2018 29-mm [facility] Zenon Epic bioprosthesis FAMILY HISTORY Problem Relation Age of Onset - Breast Cancer Mother stage III - Coronary Artery Disease Mother mother, uncle - Cancer Paternal Grandfather - Colon Cancer Maternal Grandmother - Diabetes Other uncle - Stroke Maternal Grandfather Social History Substance Use Topics - Smoking status: Never Smoker - Smokeless tobacco: Never Used - Alcohol use No Review of Systems Constitutional: Negative for chills, fever and malaise/fatigue. Weight loss: 140 lbs is good dry weight. HENT: Negative for sore throat. Respiratory: Negative for cough, sputum production, shortness of breath and wheezing. Cardiovascular: Positive for leg swelling (when on her feet for long periods of time). Negative for chest pain, palpitations, orthopnea, claudication and PND. Gastrointestinal: Negative for abdominal pain, blood in stool, constipation, diarrhea, melena, nausea and vomiting. Genitourinary: Negative for dysuria. Musculoskeletal: Negative for falls and joint pain. Skin: No new lesions Neurological: Negative for dizziness, tingling, sensory change, focal weakness, weakness and headaches. Endo/Heme/Allergies: Does not bruise/bleed easily. Psychiatric/Behavioral: Negative for depression. Objective: One month post- op Chest X-ray is done and reviewed today. Pending Physical Examination: Vitals:BP 122/70 Pulse 96 Resp 18 Ht 5' 2 (1.58m) Wt 150 lb (68.0kg) SpO2 98% BMI 27.43 kg/(m2). Last 2 Encounter Wt Readings: Date: Wt: 05/25/2018 150 (home weight has been stable at 139-140) 04/30/2018 144 lb (65.3 kg) 04/09/2018 142 lb (64.4 kg) Physical Exam Constitutional: She is oriented to person, place, and time and well-developed, well-nourished, and in no distress. HENT: Head: Normocephalic. Eyes: Pupils are equal, round, and reactive to light. Cardiovascular: Normal rate, S1 normal, S2 normal and intact distal pulses. No murmur heard. Irregularly irregular. Elevated rate 110-120 per auscultation Pulmonary/Chest: Effort normal and breath sounds normal. Abdominal: Soft. Normal appearance and bowel sounds are normal. Musculoskeletal: She exhibits edema (2-3+ pitting). Neurological: She is alert and oriented to person, place, and time. Gait normal. Skin: Skin is warm and intact. Midsternal incision clean dry, well approximated, no redness or drainage Sternum is stable Ct Sites healing Psychiatric: Mood and affect normal. Assessment and Plan: ASSESSMENT/PLAN: 1. S/P mitral valve replacement with bioprosthetic valve - ICD9: V42.2, ICD10: Z95.3 (primary diagnosis) -With full maze and LAAC -Use lasix daily as needed if weight is greater than 145 lbs, add potassium with lasix -Defer cardiac rehab until after next visit -Return 3-4 weeks with CXR 2. Persistent atrial fibrillation (HCC) - ICD9: 427.31, ICD10: I48.1 - Follow-up with Dr Perez with the following medication changes: Diltiazem, Increased metoprolol, increased amiodarone Margie Khan APRN.TOM In summary, Patient is doing fair overall after her MVR/MAZE/LAAC surgery, with no major complaints. Patient is released to drive, work. She should return in 3-*4 weeks with CXR. Thanks. Electronically signed by Margie Khan APRN.CNP on May 25, 2018, 12:45 PM REBEKA Observed: 05/25/2018 Status: COMPLETED Source: [place] 12:00 AM CLINIC OTHER CAMPUS REPOSITORY Telephone (AGCARDPOB) QUINCYGLORIA Merly ([id number]) 1940 F Date Time Provider Department 05/25/18 JEAN-PIERRE PEREZ During your visit today, we recorded the following information about you: Jean-Pierre Perez MD 05/25/2018 3:05 PM Signed Juany-pt needs MEERA DCCV for 05/27; please call pt tomorrow to confirm. Thank you William Cyr 05/25/2018 3:45 PM Signed Abbey spoke with Vicky (EP LAB) and procedure date of 05/27/18 is okay. Orders send to EP lab. Aniya Lala 05/25/2018 4:23 PM Signed Per Wendy at [employer] no prior auth is required. (ref# [id number]) Aniya Lala Thermoplastic Technician Sanam Cyr 05/26/2018 1:00 PM Signed Spoke with patient's sister, Naina, she is aware and agreeable to procedure date. Naina verbalized understanding that the hospital will call between 2p -5p, today (05/26/18), she will need a starting gate driver and she is to medications, unless instructed otherwise. Sanam Cyr Allergies As of Date: 05/25/2018 (No Known Allergies) Date Reviewed: 05/25/2018 Reviewed by: Carey Franco - Fully Assessed Reason for Visit: Preparations For Procedures [899] Cmt: MEERA/DCCV Reason For Visit History Recorded Prescriptions as of 05/25/2018 Sig: WARFARIN 1 MG TABLET Take 0.5mg (1/2 tablet) on Mo* AMIODARONE 200 MG TABLET Take 200 mg three times daily. METOPROLOL TARTRATE 25 MG TAB* Take 1 tablet by mouth every * FUROSEMIDE 40 MG TABLET Take 0.5 tablets by mouth onc* POTASSIUM CHLORIDE ER 20 MEQ * Take 1 tablet by mouth once d* ATORVASTATIN 10 MG TABLET TAKE 1 TABLET BY MOUTH EVERY * ACETAMINOPHEN 325 MG TABLET Take 2 tablets by mouth every* FERROUS SULFATE 325 MG (65 MG* Take 1 tablet by mouth twice * MELATONIN 3 MG TABLET Take 1 tablet by mouth at bed* ASCORBIC ACID (VITAMIN C) 500* Take 1 tablet by mouth twice * PRAMIPEXOLE 0.25 MG TABLET Take 1 tablet by mouth daily * PROAIR HFA 90 MCG/ACTUATION A* Inhale 2 Puffs as instructed * CHOLESTYRAMINE (WITH SUGAR) 4* Take 1 Packet by mouth once d* ALENDRONATE 70 MG TABLET Take 1 tablet by mouth once e* ASPIRIN 81 MG TABLET,DELAYED * Take 1 tablet by mouth once d* CYCLOBENZAPRINE 10 MG TABLET Take 0.5 tablets by mouth twi* CYANOCOBALAMIN (VIT B-12) 1,0* Dissolve 1 tablet under the t* CALCIUM CARBONATE 600 MG CALC* Take 600 mg by mouth once mirta* GABAPENTIN 100 MG CAPSULE Take 200 mg by mouth daily at* BIOTIN 5,000 MCG-SILICON DIOX* Take 1 tablet by mouth once d* MULTIVITAMIN TABLET Take 1 tablet by mouth once d* CHOLECALCIFEROL (VITAMIN D3) * Take 1,000 Units by mouth onc* Problem List As Of Date 05/25/2018 Noted Resolved Fibrocystic breast changes [N60.19] INVALID FOR*07/11/2015 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 Mitral regurgitation [I34.0] INVALID FOR*04/18/2018 More... S/P mitral valve replacement with bioprosthetic*INVALID FOR* S/P Maze operation for atrial fibrillation [Z98*INVALID FOR* Hypotension [I95.9] INVALID FOR* S/P left atrial appendage ligation [Z98.890] INVALID FOR* Stress hyperglycemia [R73.9] INVALID FOR* Anemia associated with acute blood loss [D62] INVALID FOR* Leukocytosis [D72.829] INVALID FOR* Malnutrition of mild degree (HCC) [E44.1] INVALID FOR* Encounter Status:Closed by ANIYA LALA on 05/25/18 HOSP Observed: 05/25/2018 Status: COMPLETED Source: [place] 12:00 AM CLINIC OTHER CAMPUS REPOSITORY Patient:Gloria Mathew MRN: <[id number]> Height:5' 2(1.575 m) Weight:147 lb 12.8 oz (67.042 kg) Outpatient Medications as of 05/27/18: warfarin (COUMADIN) 1 mg tablet amiodarone (PACERONE) 200 mg tablet metoprolol tartrate, short acting, (LOPRESSOR) 25 mg tablet furosemide (LASIX) 40 mg tablet potassium chloride ER (K-DUR, KLOR-CON) 20 mEq tablet atorvastatin (LIPITOR) 10 mg tablet acetaminophen (TYLENOL) 325 mg tablet ferrous sulfate 325 mg (65 mg iron) tablet melatonin 3 mg tablet ascorbic acid, vitamin C, (VITAMIN C) 500 mg tablet pramipexole (MIRAPEX) 0.25 mg tablet PROAIR HFA 90 mcg/actuation inhaler cholestyramine (QUESTRAN) 4 gram packet alendronate (FOSAMAX) 70 mg tablet aspirin, enteric coated (ASPIRIN, ENTERIC COATED) 81 mg EC tablet cyclobenzaprine (FLEXERIL) 10 mg tablet Cyanocobalamin (VITAMIN B-12) 1,000 mcg subl calcium carbonate (CALTRATE) 600 mg calcium (1,500 mg) tab gabapentin (NEURONTIN) 100 mg capsule Biotin-Silicon Svzo-E-Oytvotvk 5,000 mcg-100 mg- 50 mg tab multivitamin tablet Cholecalciferol, Vitamin D3, 1,000 unit cap Admission/Clinic Administered Medications as of 05/27/18: Patient has no admission medications. 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] Mitral valve stenosis [I05.0] Mitral valve regurgitation [I34.0] Paroxysmal atrial fibrillation (HCC) [I48.0] intermediate accountant (current) use of 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s [Z79.01] intermediate accountant current use of 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 [Z79.01] [Z79.01] A-fib (HCC) [I48.91] S/P mitral valve replacement with bioprosthetic valve [Z95.3] S/P Maze operation for atrial fibrillation [Z98.890, Z86.79] Hypotension [I95.9] S/P left atrial appendage ligation [Z98.890] Stress hyperglycemia [R73.9] Anemia associated with acute blood loss [D62] Leukocytosis [D72.829] Malnutrition of mild degree (HCC) [E44.1] Allergies: No Known Allergies Date Verified:05/27/18 Lab Values No results within the last 30 days for the following basenames: K,HCT [place] HOSPITAL): Jean-Pierre Perez MD 05/25/2018 3:05 PM Signed Juany-pt needs MEERA DCCV for 05/27; please call pt tomorrow to confirm. Thank you William Cyr 05/25/2018 3:45 PM Signed Abbey spoke with Vicky (EP LAB) and procedure date of 05/27/18 is okay. Orders send to EP lab. Aniya Lala 05/25/2018 4:23 PM Signed Per Wendy at [employer] no prior auth is required. (ref# [id number]) Aniya Margarita Thermoplastic Technician Sanam Cyr 05/26/2018 1:00 PM Signed Spoke with patient's sister, Naina, she is aware and agreeable to procedure date. Naina verbalized understanding that the hospital will call between 2p -5p, today (05/26/18), she will need a starting gate driver and she is to medications, unless instructed otherwise. Sanam Cyr Progress Notes (INTM AG ACC): Mellisa Dutta, Reta 05/25/2018 3:30 PM Addendum Referred by: Dr. Perez Indication: New onset valvular AFib, Rheumatic mitral regurgitation, Rheumatic mitral stenosis INR goal: 2.0-3.0 Duration: Indefinite Bridging assessment and details: Low risk of therapy interruption. CHADS-VASC = 3 (age, female) Consult agreement signed by physician. Patient has been notified verbally and/or in writing of the terms of the pharmacist-physician consult agreement for the anticoagulation clinic. Date: 03/19/2018 PT INR Date Value Ref Range Status 05/18/2018 1.7 Final INR Date Value Ref Range Status 05/25/2018 4.11 (H) 0.90 - 1.30 Final Comment: Note: Reference Range Change Vitamin K Antagonist (VKA) Therapeutic Range: INR 2 to 3 (Target INR of 2.5) Note: For patients treated with VKA drugs, such as warfarin, the [employer] 2012 Guideline recommends a therapeutic INR range of 2 to 3 (target INR of 2.5). This recommendation includes high-risk patients with antiphospholipid syndrome with previous arterial or venous thromboembolism, current-generation mechanical or bioprosthetic aortic heart valve replacement. VKA Therapeutic Range for some Mechanical Valve Replacement: INR 2.5 to 3.5 (Target INR of 3) Note: Patients with mechanical aortic valve replacement and additional risk factors for thromboembolic events (atrial fibrillation, previous thromboembolism, LV dysfunction, hypercoagulable conditions) or an older generation mechanical AVR (i.e., ball in-Cage) or any mechanical MVR should have a INR therapeutic range of 2.5 to 3.5 target INR of 3). Nathanael GH, et al. Chest 2012; 141:7S-47S Marbella RA, et al. JAC 2017; 70: 252-289 Current warfarin dose: 0.5mg every Thursday, Thursday, and Thursday Description INCREASE 0.5mg on Thursday, Thursday, and Thursday and no warfarin on any other days. Recheck in 1 week. Patient is a recent start to warfarin and has been very sensitive to warfarin doses. INR on 04/30 was 2.5. She was started on above dose at that time. INR remained 2.5 on 05/05 and current dose was continued. INR was then 1.8 on 05/11. Patient had reported some specks of blood in emesis and a bruise on her leg. No change was made to warfarin dose. INR was low again at 1.7 on 05/18. Warfarin dose was increased at that time. INR is now elevated. Per 05/21 encounter, amiodarone dose was increased. This can account for elevation in INR. Will decrease warfarin dose at this time. Patient is currently staying with her sister and can be reached at [phone]. Discussed with patient's sister on the phone who read back instructions and verbalized understanding. Spoke with Dari at [facility] and ordered INR for 06/01/18. Mellisa Dutta, Reta Previous Version CONSULTATION Observed: 05/24/2018 Status: F Source: [place] 4:27 PM [facility] REPOSITORY [facility] Medical Records Department [address] [place] [address] Consultation 05/23/18 1041 MR#: [id number] Acct: [id number] Name: GLORIA MATHEW Rep #: [id number] : 1940 77 From: Real Gibson MD PCP: OUT OF TOWN DOCTOR Status: DIS IN Y Location: [facility] [id number] Reason for Consult Date of Consultation: 05/23/18 Reason for Consultation: Shortness of breath and palpitations History of Present Illness: The patient is a 77 year old F who presented to the emergency room with shortness of breath as well as palpitations. She had been in his stable state of health until late last year where she underwent a cardiac catheterization which demonstrated no obstructive coronary disease, mitral valve replacement, Maze procedure for atrial fibrillation, left atrial appendage ligation. She had been monitored at home and over the last 9-10 days she has been having some tachycardia with elevated heart rates. They spoke to the nurse practitioner for the surgeon as well as a associate data scientist who suggested increasing her amiodarone as well as adding diltiazem to her regimen. She denies any fever or paroxysmal nocturnal dyspnea or pedal edema or leg swelling. She has not had any neck arm or jaw discomfort suggest angina. She was seen in the emergency room and was noted to be in atrial fibrillation with a rapid ventricular response rate she was already on Coumadin therapeutically anticoagulated and she was admitted and diltiazem added to her regimen. This morning however she still noted to be fairly tachycardic. Past Medical History Allergies/Adverse Reactions: Allergies No Known Allergies Allergy (Verified 05/21/18 22:23) Home Medications: Ambulatory Orders Medication Instructions Recorded Acetaminophen 650 mg PO Q4H PRN 05/21/18 Albuterol IH (ProAir) [Proair Hfa 2 puff INHALATION Q6H PRN PRN 05/21/18 (SP)Vent Pts] Alendronate Sodium [Fosamax] 70 mg PO QWEEK 05/21/18 Past Medical History (Chronic Problems): Chronic Problems History of mitral valve replacement (Chronic) History of maze procedure (Chronic) Surgical History: - - mitral valve replacement with left atrial appendage ligation and maze procedure - *Family History Maternal History Items: No pertinent history Smoking Status: Never smoker Alcohol: None Drugs: None Review of Systems - Review of Systems General: Reports: Fatigue. Denies: Fever, Night Sweats HEENT: Denies: Vision Change Cardiovascular: Reports: Shortness of Breath, Palpitations. Denies: Chest Discomfort, Orthopnea, PND, Peripheral Edema, Lightheadedness, Dizziness, Near Syncope, Syncope Respiratory: Denies: Cough, Sputum Production, Hemoptysis Gastrointestinal: Denies: Hematemesis, Hematochezia, Melena Genitourinary: Denies: Dysuria, Hematuria Muscoloskeletal: Denies: Myalgias Skin: Denies: Rash Neurological: Denies: Dizziness Psychiatric: Denies: Anxiety Endocrine: Denies: Unexplained Weight Loss Hematologic/ Lymphatic: Denies: Anemia Subjectve: Pleasant lady in no apparent distress Objective: Vital Signs Temp Pulse Resp BP Pulse Ox 98.1 F 114 H 16 107/51 L 97 05/23/18 09:08 05/23/18 09:08 05/23/18 09:08 05/23/18 09:08 05/23/18 09:08 Oxygen Flow Rate (L/min) 2 Oxygen Delivery Method Room Air Weight: 147 lb 14.883 oz Body Mass Index (BMI) 27.0 Intake and Output for Last 24 Hours Intake Total 1866 Balance 1866 General: Awake, Alert, Oriented x 3 HEENT: PERRL, EOMI, Sclera Non Icteric Neck: Supple, Good ROM, No Lymph Node Enlargement Lungs: Clear to auscultation Cardiovascular: Irregular Rhythm, Normal S1, Normal S2, No Rubs, No Gallops, Dillon Prosthetic S1 Vascular: No Carotid Bruits, Normal Femoral Pulses, Normal Radial Pulses, Normal Dorsalis Pedal Pulse, Normal Posterior Tibial Pulses Abdomen: Bowel Sounds Present, Soft, Non Tender, No HSM, No Organomegaly Extremities: No Cyanosis, No Clubbing, No edema Lymphatic: No Lymph Node Enlargement Neurological: No Focal Motor or Sensory Deficit Psych/Mental Status: Appropriate 05/22/18 04:30: Magnesium 1.9 05/23/18 08:20: Sodium 141, Potassium 3.9, Chloride 111 H, Carbon Dioxide 22.0, Anion Gap 8, BUN 9, Creatinine 0.69, Est GFR (MDRD) Af Amer 107, Est GFR (MDRD) Non-Af 88, BUN/Creatinine Ratio 13.0, Glucose 98, Calcium 8.3 L 05/23/18 08:20: PT 31.6 H, INR 3.0 Rhythm: EKG: Atrial fibrillation with a rapid ventricular response rate Assessment/Plan 1. Atrial fibrillation with a rapid ventricular response rate * The rapid ventricular response rate appears to be fairly new onset. She is on amiodarone which will be continued * Anticoagulation will also be continued * She will remain on the beta-edson at 50 mg twice a day * I would recommend long-acting diltiazem 120 mg twice a day * Hopefully will be able to slow down her heart rate for her to be discharged and followed up as an outpatient with her primary associate data scientist. * 2. Mitral valve replacement * She appears to be fairly stable with respect to her mitral valve replacement. * She will continue with antibiotic prophylaxis. * 3. Mild shortness of breath * I suspect the above is secondary to mild heart failure due to the atrial fibrillation. * Would recommend low-dose Lasix x1 * * Thank you for allowing me to participate in the care of your patient. Please don't hesitate to call if any issues arise 05/24/18 9368 <Electronically signed by Real Gibson MD> Date Real Gibson MD Cosigner Signature (if applicable): Date CC: Real Gibson MD; OUT OF TOWN DOCTOR Signed DISCHARGE SUMMARY Observed: 05/24/2018 Status: F Source: [place] 2:39 PM [facility] REPOSITORY [facility] Medical Records Department [address] [place] [id number] Discharge Summary 05/24/18 1214 MR#: [id number] Acct: [id number] Name: GLORIA MATHEW Rep #: [id number] : 1940 77 From: Carey MADDOX PCP: OUT OF TOWN DOCTOR Status: ADM IN Y Location: [place] [address] ADDENDUM by Romina Saucedo MD on 05/24/18 at 1439 Code Visit Inpatient E AND M: [id number] Disch Hosp 05/24/18 1439 <Electronically signed by Romina Saucedo MD> Date Romina Saucedo MD cc: TAN Andrade; jean-pierre perez; Romina Saucedo MD; OUT OF TOWN DOCTOR * Signed <Carey Andrade - Last Filed: 05/24/18 12:27> Discharge Date and Diagnosis Date of Admission: 05/21/18 Date of Discharge: 05/24/18 - Primary Discharge Diagnosis Active and Suspected Problems 1. Atrial fibrillation with RVR 2. Community-acquired pneumonia, without sepsis 3. Recent mitral valve replacement/maze procedure/atrial appendage ligation 4. Indeterminate troponin, suspected demand ischemia secondary to #1 5. TRISH on CPAP 6. Hypertension - Secondary Discharge Diagnosis Chronic Problems History of mitral valve replacement (Chronic) History of maze procedure (Chronic) Hospital Course and Treatment Imaging Results: Diagnostic Data Chest X-Ray 05/21/18 22:50 IMPRESSION: Small left-sided effusion. Borderline heart size. Status post sternotomy. An atrial appendage clip is seen. Right perihilar infiltrate. Electronically Signed: Corky Harper MD at 23:01 EST , Service support , Dr. Gibson- Cardiology Operations: None Procedures: None Summary of Care Provided: The patient is a 77 year old F admitted 05/21/2018 due to rapid heart rate. Noted to be atrial fibrillation with RVR. 1. Atrial fibrillation with RVR-Cardiology consulted. Continue Coumadin, INR therapeutic. Patient's primary associate data scientist is in [place], Dr. Perez. She recently re-located to [place]. Patient was placed on IV Cardizem drip with improvement in heart rate. Per cardiology recommendations, patient will be discharged on previous amiodarone regimen of 200 mg p.o. 3 times daily. Home metoprolol regimen increased to 75 mg twice daily. Patient placed on long-acting Cardizem CD 120 mg p.o. twice daily. Heart rate well controlled. Patient will follow up with primary associate data scientist in 1 week. Follow-up with primary care physician in 1 week as well. 2. Community-acquired pneumonia-received IV Rocephin and azithromycin X3 days. Patient is fairly asymptomatic. Chest x-ray admission with small left- sided effusion. Discharged on Augmentin 875 mg p.o. twice daily to complete 7 days of antibiotic therapy. 3. Recent mitral valve replacement/maze procedure/atrial appendage ligation 4. Indeterminate troponin- suspect demand ischemia 2/2 #1. Patient denies chest pain. 5. TRISH on CPAP 6. Hypertension-stable, continue current regimen. General: Alert, Oriented x3, Cooperative HEENT: Atraumatic, PERRLA, EOMI, Normocephalic Neck: Supple, No JVD, Negative Carotid Bruits Lungs: Clear to auscultation, Normal air movement Cardiovascular: Murmur, Atrial fibrillation- rate controlled Abdomen: Bowel Sounds Present, Soft, Non Tender, Non-Distended Extremities: No clubbing, No cyanosis, No edema, Capillary Refill Less than 3 Seconds Skin: No rashes, No breakdown, - - Midsternal scar with scabbing Musculoskeletal: No Tenderness to Palpation of Joints or Extremities Neurological: Cranial nerves II-XII grossly intact, Neuro grossly intact Psych/Mental Status: Normal Affect, Appropriate Patient seen and examined prior to discharge. Physical assessment as noted above. Patient is stable for discharge with follow up recommendations as noted above. This patient was seen by TAN Mcnally under the supervision of Dr. Saucedo. - Physical Exam Vital Signs Temp Pulse Resp BP Pulse Ox 98.1 F 62 18 96/56 L 96 05/24/18 11:00 05/24/18 11:03 05/24/18 11:00 05/24/18 11:00 05/24/18 11:00 Oxygen Flow Rate (L/min) 2 Oxygen Delivery Method Room Air Weight: 147 lb 14.883 oz Body Mass Index (BMI) 27.0 Intake and Output for Last 24 Hours Intake Total 1866 918.4 / 918.4 32.6 / 32.6 Balance 1866 918.4 / 918.4 32.6 / 32.6 Laboratory Tests Past 24 Hrs PT 31.4 H INR 3.0 Sodium 142 Potassium 3.6 Chloride 111 H Carbon Dioxide 23.0 Anion Gap 8 Discharge Diet: Low fat/ Low Cholesterol Discharge Activity: Return to Normal Activity Call your doctor if you observe: Shortness of breath, Dizziness, Fainting spells, Increased palpitations (irregular heartbeat) Home Medications: Medications to take at Discharge Acetaminophen 650 mg PO Q4H PRN 05/21/18 Albuterol IH (ProAir) [Proair Hfa] 2 puff INHALATION Q6H PRN PRN 05/21/18 Alendronate Sodium [Fosamax] 70 mg PO QWEEK 05/21/18 Amiodarone HCl 200 mg PO TID 05/21/18 Ascorbic Acid [Vitamin C] 500 mg PO BID 05/21/18 Aspirin [Aspirin, Baby] 81 mg PO DAILY@0800 05/21/18 Atorvastatin Calcium 10 mg PO DAILY 05/21/18 Biotin/Silicon Diox/l-Cysteine [Cos Cob Matrix 5000 ER Tablet] 1 each PO DAILY 05/21/18 Ishaan/D3/Mag11/Zinc/Toy Stuffer/Papito/Bor [Caltrate 600+D Plus Tablet] 1 each PO DAILY 05/21/18 Cholecalciferol (VIT D3) [Vitamin D3] 1,000 unit PO DAILY 05/21/18 Cholestyramine (with Sugar) [Questran Packet] 4 gm PO DAILY 05/21/18 Cyanocobalamin (Vitamin B-12) [Vitamin B-12] 1,000 mcg SL DAILY 05/21/18 Ferrous Sulfate 325 mg PO BIDCM 05/21/18 Gabapentin [Neurontin] 200 mg PO QHS 05/21/18 Melatonin 3 mg PO QHS PRN PRN 05/21/18 Multivitamin [Multivitamins] 1 each PO DAILY 05/21/18 Pramipexole Di-HCl [Pramipexole Dihydrochloride] 0.25 mg PO QHS 05/21/18 Warfarin [Coumadin] 0.5 mg PO MOWEFR 05/21/18 Amox/Clavulanate Tablet [Augmentin Tablet] 875 mg PO Q12H #8 tablet 05/24/18 Diltiazem CD [Cardizem CD] 120 mg PO Q12 #60 capsule 05/24/18 Metoprolol Tartrate [Lopressor (beta edson)] 75 mg PO BID #120 tablet 05/24/18 Following Prescrptions Were Given to Patient: Amox/Clavulanate Tablet [Augmentin Tablet] 875 mg PO Q12H #8 tablet Diltiazem CD [Cardizem CD] 120 mg PO Q12 #60 capsule Metoprolol Tartrate [Lopressor (beta edson)] 75 mg PO BID #120 tablet Primary Care Physician: Maximo Bloom,Out of [Primary Care Provider] - Please follow up with your Primary Care Physician in: 1 Week Please Follow Up With: Dr. Perez - Primary Supervisor Gas Meter Repair When: 1 Week Disposition: Home Minutes spent on discharge:: 35 Patient Condition:: Stable Medical Necessity - Tobacco Use Smoking Status: Never smoker Meaningful Use Info Meaningful Use Diagnoses (Choose all that apply): None applicable <Romina Saucedo - Last Filed: 05/24/18 14:38> Discharge Date and Diagnosis - Secondary Discharge Diagnosis Chronic Problems History of mitral valve replacement (Chronic) History of maze procedure (Chronic) Hospital Course and Treatment Summary of Care Provided: This patient was seen in conjunction with Carey Andrade NP. I have independently interviewed and examined the patient and reviewed pertinent historical, laboratory, and other data. Please refer to her note for patient's presentation, findings, and recommendations. 77 year old female patient with a recent history for mitral valve replacement and maze procedure with atrial appendage ligation admitted to the hospital with A. fib with RVR. Patient's HR initially improved with cardiuzem drip, she was transitioned to cardizem po. HR remained still uncontrolled. Cardiology was consulted, changes were made to her medications. She continued to be in RVR and was managed subsequently with cardizem drip. She was discharged on adjusted rate control medications. Subjective: Patient was seen and examined. Denies any fever or chills or SOB. Objective: General: Alert, Oriented x3, Cooperative, No apparent distress HEENT: Atraumatic, PERRLA, EOMI, Normocephalic Oral: Moist Mucosa Neck: Supple, No JVD, Negative Carotid Bruits Lungs: Clear to auscultation, Normal air movement Cardiovascular: Regular Rhythm, Normal S1, Normal S2, Irregular Rate, Murmur - 3/6 holosystolic murmur, - - midsternal scar, healing, scabbing, no erythema Abdomen: Bowel Sounds Present, Soft, Non Tender, Non-Distended, No Hepato-splenomegaly Extremities: No edema Skin: No rashes, No breakdown Musculoskeletal: No Tenderness to Palpation of Joints or Extremities Lymphatic: No Cervical, Supraclavicular, or Inguinal Adenopathy Neurological: Cranial nerves II-XII grossly intact, Neuro grossly intact Psych/Mental Status: Normal Affect, Appropriate - Physical Exam Vital Signs Temp Pulse Resp BP Pulse Ox 98.1 F 69 16 95/53 L 95 05/24/18 11:00 05/24/18 14:15 05/24/18 14:15 05/24/18 14:15 05/24/18 14:15 Oxygen Flow Rate (L/min) 2 Oxygen Delivery Method Room Air Weight: 67.1 kg Body Mass Index (BMI) 27.0 Intake and Output for Last 24 Hours Intake Total 1866 918.4 / 918.4 355.6 / 355.6 Balance 1866 918.4 / 918.4 355.6 / 355.6 Laboratory Tests Past 24 Hrs PT 31.4 H INR 3.0 Sodium 142 Potassium 3.6 Chloride 111 H Carbon Dioxide 23.0 Anion Gap 8 Medical Necessity - Tobacco Use Tobacco Use: Non-smoker Code Visit Inpatient E AND M: [id number] Subs Hosp L2 05/24/18 1229 <Electronically signed by Carey GÓMEZC> Date Carey GÓMEZC 05/24/18 1438<Electronically signed by Romina Saucedo MD> Cosigner Signature (if applicable): Date Romina Saucedo MD CC: TAN Andrade; jean-pierre perez; Romina Saucedo MD; OUT OF TOWN DOCTOR Signed DISCHARGE INSTRUCTION Observed: 05/24/2018 Status: F Source: [place] 11:25 AM [facility] REPOSITORY [facility] Medical Records Department [address] [place] [address] Instructions for Home/Discharge Instructions 05/24/18 1119 MR#: [id number] Acct: [id number] Name: GLORIA MATHEW Rep #: [id number] : 1940 77 From: Carey MADDOX PCP: OUT OF TOWN DOCTOR Status: ADM IN - Discharge Diagnoses Current Active Problems: Current Active and Chronic Problems Atrial fibrillation with RVR (Acute) History of mitral valve replacement (Chronic) History of maze procedure (Chronic) Pneumonia (Acute) You will use the following diet at home:: Cardiac Discharge Activity: Return to Normal Activity Call your doctor if you observe: Shortness of breath, Dizziness, Fainting spells, Increased palpitations (irregular heartbeat) Allergies/Adverse Reactions: Allergies No Known Allergies Allergy (Verified 05/21/18 22:23) Medications to take at Discharge Acetaminophen 650 mg PO Q4H PRN 05/21/18 Albuterol IH (ProAir) [Proair Hfa] 2 puff INHALATION Q6H PRN PRN 05/21/18 Alendronate Sodium [Fosamax] 70 mg PO QWEEK 05/21/18 Amiodarone HCl 200 mg PO TID 05/21/18 Ascorbic Acid [Vitamin C] 500 mg PO BID 05/21/18 Aspirin [Aspirin, Baby] 81 mg PO DAILY@0800 05/21/18 Atorvastatin Calcium 10 mg PO DAILY 05/21/18 Biotin/Silicon Diox/l-Cysteine [Paco Matrix 5000 ER Tablet] 1 each PO DAILY 05/21/18 Ishaan/D3/Mag11/Zinc/Toy Stuffer/Papito/Bor [Caltrate 600+D Plus Tablet] 1 each PO DAILY 05/21/18 Cholecalciferol (VIT D3) [Vitamin D3] 1,000 unit PO DAILY 05/21/18 Cholestyramine (with Sugar) [Questran Packet] 4 gm PO DAILY 05/21/18 Cyanocobalamin (Vitamin B-12) [Vitamin B-12] 1,000 mcg SL DAILY 05/21/18 Ferrous Sulfate 325 mg PO BIDCM 05/21/18 Gabapentin [Neurontin] 200 mg PO QHS 05/21/18 Melatonin 3 mg PO QHS PRN PRN 05/21/18 Multivitamin [Multivitamins] 1 each PO DAILY 05/21/18 Pramipexole Di-HCl [Pramipexole Dihydrochloride] 0.25 mg PO QHS 05/21/18 Warfarin [Coumadin] 0.5 mg PO MOWEFR 05/21/18 Amox/Clavulanate Tablet [Augmentin Tablet] 875 mg PO Q12H #8 tablet 05/24/18 Diltiazem CD [Cardizem CD] 120 mg PO Q12 #60 capsule 05/24/18 Metoprolol Tartrate [Lopressor (beta edson)] 75 mg PO BID #120 tablet 05/24/18 The following prescriptions were given: Amox/Clavulanate Tablet [Augmentin Tablet] 875 mg PO Q12H #8 tablet Diltiazem CD [Cardizem CD] 120 mg PO Q12 #60 capsule Metoprolol Tartrate [Lopressor (beta edson)] 75 mg PO BID #120 tablet Primary Care Physician: [facility] Doctor,Out of [Primary Care Provider] - Please follow up with your Primary Care Physician in: 1 Week Test Results: Test results from this visit will be discussed in further detail at your follow-up appointment, if applicable. Please Follow Up With: Dr. Perez - Primary Supervisor Gas Meter Repair When: 1 Week Proposed Discharge Date: 05/24/18 05/24/18 1125 <Electronically signed by Carey MADDOX> Date Carey MADDOX CC: Real Gibson MD; OUT OF [facility] DOCTOR Signed 12 LEAD ELECTROCARDIOGRAM Observed: 05/24/2018 Status: F Source: [place] 9:07 AM [facility] REPOSITORY [facility] Cardiovascular Services [address] [place] [address] 12 Lead EKG 05/21/186 MR#: [id number] Acct: [id number] Name: GLORIA MATHEW Rep #: [id number] : 1940 77 From: Real Gibson MD Attending Dr: Romina Saucedo MD Status: ADM IN Ordering Dr: Juan Angel MD Date: 05/21/18 Location: [facility] Sex: F C Admitted: 05/22/18 Test Reason : A-FIB Blood Pressure : / mmHG Vent. Rate : 164 BPM Atrial Rate : 192 BPM P-R Int : 000 ms QRS Dur : 086 ms QT Int : 296 ms P-R-T Axes : 000 088 215 degrees QTc Int : 488 ms Atrial fibrillation with rapid ventricular response ST AND T wave abnormality, consider inferior ischemia Abnormal ECG Confirmed by PAIGE WARD, REAL ([id number]), editor continuity and script BETTY JORDAN ([id number]) on 05/24/2018 9:06:59 AM Referred By: LOBO Confirmed By:REAL GIBSON MD 05/24/18 0907 Date Real Gibson MD CC: Romina Saucedo MD; Juan Angel MD; OUT OF TOWN DOCTOR Signed BASIC METABOLIC Collected: 05/24/2018 Status: F Source: [place] PROFILE ([facility]) 5:54 AM [facility] REPOSITORY TYPE CODE TESTS RESULT OUT OF RANGE REFERENCE UNITS LAB L501.0100 74-106 mg/dL Normal GLU 82 Result Comment: Please note revised GLUCOSE reference range effective 2017. LAB L501.1000 7-18 mg/dL Normal BUN 10 LAB L501.1100 0.55-1.02 mg/dL Normal CREAT,SERUM 0.72 Result Comment: The validity of the calculated GFR AND GFRAA in patients over 70 years has not been determined. Clinical correlation is essential. LAB L501.1110 >60 mL/min Normal EST GFR 83 Result Comment: Non- GFR Calc LAB L501.1115 >60 mL/min Normal EST GFR - AA 101 Result Comment: GFR Calc LAB L501.1255 ml/min Normal Estimated CRCL 38.44 LAB L501.1300 10-20 RATIO Normal BUN/CRE 13.8 LAB L501.2200 8.5-10 mg/dL Low .1 CA 7.9 LAB L501.5300 136-14 mmol/L Normal 5 NA 142 LAB L501.5600 3.5-5. mmol/L Normal 1 K 3.6 LAB L501.5900 98-107 mmol/L High CL 111 LAB L501.6100 21.0-3 mmol/L Normal 2.0 CO2 23.0 LAB L501.6200 5-15 Normal GAP 8 Performed By: #### L500.2500 #### [facility] [address] [place], [address] PROTHROMBIN TIME W/INR Collected: 05/24/2018 Status: F Source: [place] 5:54 AM [facility] REPOSITORY TYPE CODE TESTS RESULT OUT OF RANGE REFERENCE UNITS LAB L300.4150 11.7-14.9 SECONDS High PROTIME 31.4 LAB L300.4200 Normal INR 3.0 Performed By: #### L300.3900 #### [facility] [address] [place], [address] BASIC METABOLIC Collected: 05/23/2018 Status: F Source: [place] PROFILE ([facility]) 8:20 AM [facility] REPOSITORY TYPE CODE TESTS RESULT OUT OF RANGE REFERENCE UNITS LAB L501.0100 74-106 mg/dL Normal GLU 98 Result Comment: Please note revised GLUCOSE reference range effective 2017. LAB L501.1000 7-18 mg/dL Normal BUN 9 LAB L501.1100 0.55-1.02 mg/dL Normal CREAT,SERUM 0.69 Result Comment: The validity of the calculated GFR AND GFRAA in patients over 70 years has not been determined. Clinical correlation is essential. LAB L501.1110 >60 mL/min Normal EST GFR 88 Result Comment: Non- GFR Calc LAB L501.1115 >60 mL/min Normal EST GFR - AA 107 Result Comment: GFR Calc LAB L501.1255 ml/min Normal Estimated CRCL 38.44 LAB L501.1300 10-20 RATIO Normal BUN/CRE 13.0 LAB L501.2200 8.5-10 mg/dL Low .1 CA 8.3 LAB L501.5300 136-14 mmol/L Normal 5 NA 141 LAB L501.5600 3.5-5. mmol/L Normal 1 K 3.9 LAB L501.5900 98-107 mmol/L High CL 111 LAB L501.6100 21.0-3 mmol/L Normal 2.0 CO2 22.0 LAB L501.6200 5-15 Normal GAP 8 Performed By: #### L500.2500 #### [facility] [address] [place], [address] PROTHROMBIN TIME W/INR Collected: 05/23/2018 Status: F Source: [place] 8:20 AM [facility] REPOSITORY TYPE CODE TESTS RESULT OUT OF RANGE REFERENCE UNITS LAB L300.4150 11.7-14.9 SECONDS High PROTIME 31.6 LAB L300.4200 Normal INR 3.0 Performed By: #### L300.3900 #### [facility] [facility] [place], [address] THYROID STIM HORMONE Collected: 05/23/2018 Status: F Source: [place] (TSH) 8:20 AM [facility] REPOSITORY Order Comment: Comments: add on to this morning labs TYPE CODE TESTS RESULT OUT OF RANGE REFERENCE UNITS LAB L501.9520 0.358-3.74 uIU/mL Normal TSH 0.63 Performed By: #### L501.9520 #### [facility] [address] [place], [address] PROTHROMBIN TIME W/INR Collected: 05/22/2018 Status: F Source: [place] 4:30 AM [facility] REPOSITORY TYPE CODE TESTS RESULT OUT OF RANGE REFERENCE UNITS LAB L300.4150 11.7-14.9 SECONDS High PROTIME 24.4 LAB L300.4200 Normal INR 2.2 Performed By: #### L300.3900 #### [facility] [address] [place], [address] COMPREHENSIVE METABOLIC Collected: 05/22/2018 Status: F Source: [place] PROFIL 4:30 AM [facility] REPOSITORY Order Comment: Comments: Fasting Lipid Profile TYPE CODE TESTS RESULT OUT OF RANGE REFERENCE UNITS LAB L501.0100 74-106 mg/dL Normal GLU 90 Result Comment: Please note revised GLUCOSE reference range effective 2017. LAB L501.1000 7-18 mg/dL Normal BUN 11 LAB L501.1100 0.55-1.02 mg/dL Normal CREAT,SERUM 0.76 Result Comment: The validity of the calculated GFR AND GFRAA in patients over 70 years has not been determined. Clinical correlation is essential. LAB L501.1110 >60 mL/min Normal EST GFR 78 Result Comment: Non- GFR Calc LAB L501.1115 >60 mL/min Normal EST GFR - AA 95 Result Comment: GFR Calc LAB L501.1255 ml/min Normal Estimated CRCL 38.44 LAB L501.1300 10-20 RATIO Normal BUN/CRE 14.4 LAB L501.1500 6.4-8. g/dL Low 2 T PROT 5.8 LAB L501.1800 3.2-5. g/dL Low 0 ALB 2.5 LAB L501.1950 2.2-4. g/dL Normal 2 GLOB 3.3 LAB L501.2000 0.9-2. RATIO Low 4 A/G 0.8 LAB L501.2200 8.5-10 mg/dL Low .1 CA 8.1 LAB L501.4100 15-37 U/L Low AST 7 LAB L501.4305 45-117 U/L Normal ALK P 99 LAB L501.4405 13-56 U/L Normal ALT 17 LAB L501.4600 0.20-1 mg/dL Normal .00 T BILI 0.60 LAB L501.5300 136-14 mmol/L Normal 5 NA 143 LAB L501.5600 3.5-5. mmol/L Low 1 K 3.3 LAB L501.5900 98-107 mmol/L High CL 110 LAB L501.6100 21.0-3 mmol/L Normal 2.0 CO2 24.0 LAB L501.6200 5-15 Normal GAP 9 Performed By: #### L500.4050, L500.4100 #### [facility] [address] [place], [address] LIPID PROFILE Collected: 05/22/2018 Status: F Source: [place] 4:30 AM [facility] REPOSITORY Order Comment: Comments: Fasting Lipid Profile TYPE CODE TESTS RESULT OUT OF RANGE REFERENCE UNITS LAB L501.4900 200 mg/dL Normal CHOL 60 Result Comment: <200 mg/dL Desirable 200-240 mg/dL Borderline >240 mg/dL High Risk LAB L501.5000 mg/dL Normal TRIG 57 Result Comment: The drugs N-Acetylcysteine and Metamizole may falsely depress this assay. Serum Triglycerides Reference Interval Normal <150 mg/dL Borderline high 150 - 199 mg/dL High 200 - 499 mg/dL Very High > or = 500 mg/dL LAB L501.6400 mg/dL Low HDL 28 Result Comment: The drugs N-Acetylcysteine and Metamizole may falsely depress this assay. Reference Range HDL <40 mg/dL Low HDL Cholesterol HDL >or= 60 mg/dL High HDL Cholesterol LAB L501.6500 0-130 mg/dL Normal LDL 21 LAB L501.6600 5-40 mg/dL Normal VLDL 11 Performed By: #### L500.4050, L500.4100 #### [facility] [address] [place], [address] TROPONIN-I Collected: 05/22/2018 Status: F Source: [place] 4:30 AM [facility] REPOSITORY Order Comment: 'TROP' Serial specimen #1, #2 or #3: 3 TYPE CODE TESTS RESULT OUT OF RANGE REFERENCE UNITS LAB L501.4010 <0.045 ng/mL High 0.094 TROPONIN-I Result Comment: TROPONIN-I EXPECTED VALUES <0.045 Negative 0.045 - 0.590 Consistent with Cardiac Damage > OR = 0.600 Critical Value Not every elevated troponin is indicative of [place]. These values should be used with clinical judgement in examining the patient's clinical picture for diagnosis. To establish a diagnosis of [place] versus myocardial injury, there must be a demonstrated rise and/or fall in the troponin values, in addition to ischemic symptoms, EKG changes, new regional wall motion abnormality, and/or angiographical evidence. PLEASE NOTE: REFERENCE RANGES EDITED 17 Performed By: #### L501.4010 #### [facility] [address] [place], [address] MAGNESIUM Collected: 05/22/2018 Status: F Source: [place] 4:30 AM [facility] REPOSITORY Order Comment: Comments: as add on test OKAY TO ADD TO AM DRAW PER ABBEY. TYPE CODE TESTS RESULT OUT OF RANGE REFERENCE UNITS LAB L501.5200 1.6-2.6 mg/dL Normal MG 1.9 Performed By: #### L501.5200 #### [facility] [address] [place], [address] TROPONIN-I Collected: 05/22/2018 Status: F Source: [place] 2:00 AM [facility] REPOSITORY Order Comment: 'TROP' Serial specimen #1, #2 or #3: 2 TYPE CODE TESTS RESULT OUT OF RANGE REFERENCE UNITS LAB L501.4010 <0.045 ng/mL High 0.106 TROPONIN-I Result Comment: TROPONIN-I EXPECTED VALUES <0.045 Negative 0.045 - 0.590 Consistent with Cardiac Damage > OR = 0.600 Critical Value Not every elevated troponin is indicative of [place]. These values should be used with clinical judgement in examining the patient's clinical picture for diagnosis. To establish a diagnosis of [place] versus myocardial injury, there must be a demonstrated rise and/or fall in the troponin values, in addition to ischemic symptoms, EKG changes, new regional wall motion abnormality, and/or angiographical evidence. PLEASE NOTE: REFERENCE RANGES EDITED 17 Performed By: #### L501.4010 #### [facility] [address] [place], [address] HISTORY AND PHYSICAL Observed: 05/22/2018 Status: F Source: [place] EXAM 12:27 AM [facility] REPOSITORY [facility] Medical Records Department [address] [place] [address] History and Physical 05/21/18 2357 MR#: [id number] Acct: [id number] Name: GLORIA MATHEW Merly Rep #: [id number] : 1940 77 From: Polo Borges MD PCP: OUT OF TOWN DOCTOR Status: ADM IN Location: [facility] [id number] Problem List (1) Atrial fibrillation with RVR Status: Acute (2) History of mitral valve replacement Status: Chronic (3) History of maze procedure Status: Chronic (4) Pneumonia Status: Acute Qualifiers: Laterality: right Lung location: middle lobe of lung History of Present Illness Date of Admission: 05/21/18 Chief Complaint: rapid heart rate The patient is a 77 year old female patient with a recent history for mitral valve replacement and maze procedure with atrial appendage ligation presents to the ER with a rapid heart rate. Despite recent increase in amiodarone to 200mg TID she has a rate of 160 at presentation. With IV Cardizem she has responded and rate is now 100. She denies chest pain. She is a little short of breath, chest x ray reveal a right hilar infiltrate. ER physician has requested admission for observation for rate control. Her associate data scientist in [place] request staring po Cardizem in addition to her amiodarone. Initial Troponin is slightly elevate but recent heart cath was negative for CAD. Past Medical History Past Medical History (Chronic Problems): Chronic Problems History of mitral valve replacement (Chronic) History of maze procedure (Chronic) Allergies No Known Allergies Allergy (Verified 05/21/18 22:23) Home Medications: Ambulatory Orders Medication Instructions Recorded Acetaminophen 650 mg PO Q4H PRN 05/21/18 Albuterol IH (ProAir) [Proair Hfa 2 puff INHALATION Q6H PRN PRN 05/21/18 (SP)Vent Pts] Alendronate Sodium [Fosamax] 70 mg PO QWEEK 05/21/18 Surgical History: - - mitral valve Smoking Status: Never smoker - *Family History Maternal History Items: No pertinent history Review of Systems Constitutional: Reports: Fatigue. Denies: Chills, Fever, Weight Change HEENT: Denies: Head Aches, Sinus Congestion, Sinus Drainage Cardiovascular: Reports: Palpitations. Denies: Chest Pain Respiratory: Reports: Cough, Shortness of Breath. Denies: Shortness of breath at rest, Sputum production Gastrointestinal: Denies: Abdominal Pain, Nausea, Vomiting Genitourinary: Denies: Dysuria Musculoskeletal: Denies: Joint Pain, Joint Tenderness Skin: Denies: Rash, Wounds Neurological: Denies: Numbness, Tingling, Focal weakness Psychiatric: Denies: Anxiety, Depression, Homicidal Ideations, Suicidal Ideations Hematologic/ Lymphatic: Denies: Easy Bruising, Easy Bleeding VTE Information - Inpt Only VTE Present on Admission: No VTE Mechan Device Prophylaxis: None VTE Pharm Prophylaxis ordered?: Yes Patient Problems: Active and Suspected Problems Atrial fibrillation with RVR (Acute) Pneumonia (Acute) - Physical Exam General: Alert, Oriented x3, Cooperative HEENT: Atraumatic, Normocephalic Neck: Supple Lungs: Clear to auscultation, Normal air movement, No rhonchi, No wheeze, No rales Cardiovascular: Normal S1, Normal S2, Irregular Rate, Tachycardic Abdomen: Bowel Sounds Present, Soft Extremities: No edema, Capillary Refill Less than 3 Seconds Skin: No rashes Musculoskeletal: No Tenderness to Palpation of Joints or Extremities Neurological: Neuro grossly intact Psych/Mental Status: Normal Affect, Appropriate Vital Signs Temp Pulse Resp BP Pulse Ox 98.3 F 150 H 17 121/101 H 96 05/21/18 22:23 05/21/18 22:23 05/21/18 22:23 05/21/18 22:23 05/21/18 22:23 Oxygen Delivery Method Room Air Weight: 156 lb 15.506 oz Body Mass Index (BMI) 28.7 Laboratory Tests Past 24 Hrs WBC 6.0 RBC 3.58 L Hgb 10.0 L Hct 32.3 L MCV 90.2 MCH 27.9 MCHC 31.0 L RDW 14.7 H RDW Differential 47.4 H Assessment/Plan All Active Problems Atrial fibrillation with RVR (Acute) Pneumonia (Acute) Plan 1. Pneumonia-- IV Rocephin and Azithromycin, DuoNeb inh q 4hrs prn 2. Atrial fibrillation with RVR-- monitor for rate control, continue po Cardizem at DC, cycle cardiac enzymes, cbc,bmp in am- continue anticoagulation 3. TRISH --use home CPAP 4. DVT prohylaxis -- cont antcoagulation DC home tomorrow on PO antibiotics and po Cardizem if rate controlled Code Visit OBSV E AND M: [id number] Initial observation care L2 05/22/18 0027 <Electronically signed by Polo Borges MD> Date Polo Borges MD Cosigner Signature: Date (if applicable) CC: OUT OF TOWN DOCTOR; Polo Borges MD Signed EMERGENCY DEPARTMENT Observed: 05/22/2018 Status: F Source: [place] SUMMARY 12:08 AM [facility] REPOSITORY [facility] Medical Records Department [address] [place] [address] Emergency Department Summary 05/22/18 0002 MR#: [id number] Acct: [id number] Name: GLORIA MATHEW Rep #: [id number] : 1940 77 From: Juan Angel MD PCP: OUT OF TOWN DOCTOR Status: REG ER - ER Visit Summary Date of Service: 05/22/18 Chief Complaint: A. fib History of Present Illness: The patient is a 77 F who presents with atrial fibrillation. This is a relatively new diagnosis from March. On April 16 she had a mitral valve replacement, Maze procedure, atrial appendage ligation. Her sister is an RN and has been monitoring her heart rate at home. Over the last 9-10 days she has been having some tachycardia with heart rates of 110-120s occasionally as high as 130. Tonight she was as high as 140s and 150s. She spoke to the nurse practitioner for her surgeon who also contacted Dr. Perez her associate data scientist who increased her amiodarone from 200 mg a day to 200 mg 3 times a day. Patient denies any chest pain or shortness of breath. She has had some mild rhinorrhea and nonproductive cough no fevers chest pain shortness of breath vomiting. Physical Examination: Heart rate 150 vitals otherwise unremarkable Moist mucous membranes Heart irregularly irregular and tachycardic without murmur Lungs are clear and I do not appreciate rales rhonchi wheezes Abdomen soft Extremities nontender without edema Alert Test Results: EKG shows atrial fibrillation at a rate of 164, no old to compare to. Labs notable for troponin of 0.09. Chest x-ray shows a small left- sided effusion atrial appendage clip and right perihilar infiltrate. Emergency Department Course and Treatment: Patient was given 20 mg of IV Cardizem and on reevaluation is rate controlled in the 80s and 90s. Her troponin is likely just rate related. She has no known coronary disease. Given focal infiltrate I do suspect this is pneumonia although she does not have fever or leukocytosis. She does have some cough. She was given IV Zosyn and vancomycin for healthcare associated pneumonia. I spoke to Dr. Perez, her associate data scientist. He recommended starting low-dose Cardizem at 30 mg twice a day. I spoke to the hospitalist as given she also possibly has pneumonia and slight elevation of her troponin I felt that she she will at least have serial enzymes and be monitored. Treatment Plan: [] Disposition: Admit Impression: A. fib with RVR HCAP Indeterminate troponin This note was generated with Loco2 dictation software. It may contain incorrect words, spelling, and punctuation that were not noted in review of the chart prior to signing ED Disposition - Plan for ED Patient: Chief Complaint: Palpitations Referrals: [facility] Doctor,Out of [Primary Care Provider] - What to do if you have Problems For any increased pain, shortness of breath, bleeding, nausea or vomiting, chest pain, or any unexpected problems, contact your Primary Care Provider. Call [facility] ([phone]) or report to the closest Emergency Room. Call 911 if necessary. 05/22/18 0008 <Electronically signed by Juan Angel MD> Date Juan Angel MD Cosigner Signature (If Indicated): Date CC: OUT OF TOWN DOCTOR CHEST PA AND LATERAL Observed: 05/21/2018 Status: F Source: [place] 10:45 PM [facility] REPOSITORY [facility] Imaging Services [address] [place] [address] Chest PA and Lateral MR#: [id number] Acct: [id number] Name: GLORIA MATHEW Rep #: [id number] : 1940 F 77 From: Corky Harper MD PCP: OUT OF TOWN DOCTOR Status: PRE ER Study: Chest PA and Lateral Date of Exam: 05/21/18 Exam# [id number] Ordering Dr: Juan Angel MD STUDY: X-RAY CHEST REASON FOR EXAM: Female, 77 years old. Open heart surgery on April 16, tachycardia, A. fib TECHNIQUE: PA and lateral views of the chest. COMPARISON: None. FINDINGS: monitoring specialist leads are seen. There is a right perihilar infiltrate. There is a small left-sided effusion. The heart size is borderline. Status post sternotomy changes are seen. An atrial appendage clip is noted. Normal mediastinum and elana. Normal visualized pulmonary arteries. Normal visualized aortic arch and descending thoracic aorta. Normal visualized thoracic spine. Normal visualized ribs, clavicles, and shoulders. There is no demonstrated abnormality of the visualized soft tissue structures of the upper abdomen. RAD/Chest PA and Lateral IMPRESSION: Small left-sided effusion. Borderline heart size. Status post sternotomy. An atrial appendage clip is seen. Right perihilar infiltrate. Electronically Signed: Corky Harper MD at 23:01 EST , Service support , CC: Juan Angel MD; OUT OF TOWN DOCTOR Lining Folder: Signed CBC W/DIFF, AUTOMATED Collected: 05/21/2018 Status: F Source: [place] 10:40 PM [facility] REPOSITORY TYPE CODE TESTS RESULT OUT OF RANGE REFERENCE UNITS LAB L100.1000 4.4-11.0 K/mm3 Normal WBC 6.0 LAB L100.1200 4.2-5.4 M/mm3 Low RBC 3.58 LAB L100.1300 12.0-15.0 g/dl Low HGB 10.0 LAB L100.1400 37-47 % Low HCT 32.3 LAB L100.1500 81-99 fL Normal MCV 90.2 LAB L100.1600 27.0-32.0 pg Normal MCH 27.9 LAB L100.1700 32-36 g/gl Low MCHC 31.0 LAB L100.1810 11.6-14.6 % High RDW CV 14.7 LAB L100.1820 35.1-43.9 fl High RDW SD 47.4 LAB L100.1900 150-450 K/mm3 Normal PLT 265 LAB L100.2000 6.2-12.0 fl Normal MPV 9.5 LAB L100.2100 47-70 % Normal NEUT% 66.7 LAB L100.2200 19-41 % Low LY% 16.2 LAB L100.2300 0-10 % High MONO% 10.7 LAB L100.2400 0-5 % Normal EO% 4.2 LAB L100.2500 0-1 % High BASO% 2.0 LAB L100.2550 0.0-0.9 % Normal IM GRAN % 0.200 Result Comment: IG% - Immature Granulocytes (promyelocytes, myelocytes and metamyelocytes) > 1% indicates that a LEFT SHIFT is Present. LAB L100.2620 2.0-7.7 X10 3/uL Normal Absolute Neut 4.0 LAB L100.2720 0.83-4.51 X10 3/ul Normal Absolute Lymph 0.97 Performed By: #### L100.0100 #### [facility] [address] [place], [address] BASIC METABOLIC Collected: 05/21/2018 Status: F Source: [place] PROFILE ([facility]) 10:40 PM [facility] REPOSITORY TYPE CODE TESTS RESULT OUT OF RANGE REFERENCE UNITS LAB L501.0100 74-106 mg/dL High GLU 129 Result Comment: Fasting Glucose result greater than or equal to 126 mg/dL suggests DIABETES MELLITUS per A.D.A. criteria. Please note revised GLUCOSE reference range effective 2017. LAB L501.1000 7-18 mg/dL Normal BUN 13 LAB L501.1100 0.55-1.02 mg/dL Normal CREAT,SERUM 0.82 Result Comment: The validity of the calculated GFR AND GFRAA in patients over 70 years has not been determined. Clinical correlation is essential. LAB L501.1110 >60 mL/min Normal EST GFR 72 Result Comment: Non- GFR Calc LAB L501.1115 >60 mL/min Normal EST GFR - AA 88 Result Comment: GFR Calc LAB L501.1255 ml/min Normal Estimated CRCL 46.88 LAB L501.1300 10-20 RATIO Normal BUN/CRE 15.9 LAB L501.2200 8.5-10 mg/dL Normal .1 CA 8.5 LAB L501.5300 136-14 mmol/L Normal 5 NA 144 LAB L501.5600 3.5-5. mmol/L Normal 1 K 3.8 LAB L501.5900 98-107 mmol/L High CL 109 LAB L501.6100 21.0-3 mmol/L Normal 2.0 CO2 23.0 LAB L501.6200 5-15 Normal GAP 12 Performed By: #### L500.2500, L501.4010 #### [facility] [address] [place], [place], [address] TROPONIN-I Collected: 05/21/2018 Status: F Source: [place] 10:40 PM [facility] REPOSITORY TYPE CODE TESTS RESULT OUT OF RANGE REFERENCE UNITS LAB L501.4010 <0.045 ng/mL High 0.091 TROPONIN-I Result Comment: TROPONIN-I EXPECTED VALUES <0.045 Negative 0.045 - 0.590 Consistent with Cardiac Damage > OR = 0.600 Critical Value Not every elevated troponin is indicative of [place]. These values should be used with clinical judgement in examining the patient's clinical picture for diagnosis. To establish a diagnosis of [place] versus myocardial injury, there must be a demonstrated rise and/or fall in the troponin values, in addition to ischemic symptoms, EKG changes, new regional wall motion abnormality, and/or angiographical evidence. PLEASE NOTE: REFERENCE RANGES EDITED 17 Performed By: #### L500.2500, L501.4010 #### [facility] [address] [place], [place], [address] PROTHROMBIN TIME W/INR Collected: 05/21/2018 Status: F Source: [place] 10:40 PM [facility] REPOSITORY TYPE CODE TESTS RESULT OUT OF RANGE REFERENCE UNITS LAB L300.4150 11.7-14.9 SECONDS High PROTIME 22.6 LAB L300.4200 Normal INR 2.0 Performed By: #### L300.3900 #### [facility] [place], [address] REBEKA Observed: 05/21/2018 Status: COMPLETED Source: [place] 12:00 AM [facility]INIC OTHER CAMPUS REPOSITORY Telephone ([facility]) QUINCYGLORIA Merly ([id number]) 1940 F Date Time Provider Department 05/21/18 JEAN-PIERRE PEREZ During your visit today, we recorded the following information about you: Jean-Pierre Perez MD 05/21/2018 11:49 AM Signed Pt having more afib after heart surgery Please have her come in next at 2:30pm for appt with me. I told CT surg to increase her amio to 20mg tid thx dac Margie Khan APRN.TOM 05/21/2018 12:06 PM Signed I called and spoke to Gloria Chew's sister, advising her to increase the amiodarone to 200 mg TID. A refill request was sent to her pharmacy in [place]. She is to com see me same day 05/25 at 1:30 pm. She also needs a PT/INR same day which can be done at the [facility] that day as well. She verbalized understanding. Margie Khan APRN.TOM Cyr 05/21/2018 12:50 PM Signed Attempted to call patient to confirm appt with Dr. Perez on 05/25/18 @ 2:30pm. Patient does not have a VM set up. Sanam Cyr 05/21/2018 2:44 PM Signed Spoke with Naina, abdulkadir's sister, she is aware and agreeable to appointment scheduled with Dr. Perez. Sanam Cyr Allergies As of Date: 05/21/2018 (No Known Allergies) Date Reviewed: 04/30/2018 Reviewed by: Nadia (Callie) Jaren - Fully Assessed Reason for Visit: Appointment [[id number]] Reason For Visit History Recorded Order(s):amiodarone (PACERONE) 200 mg tabletTake 200 mg three times daily.Disp: 90 tabletRfl: 3 Prescriptions as of 05/21/2018 Sig: AMIODARONE 200 MG TABLET Take 200 mg three times daily. WARFARIN 1 MG TABLET Take 0.5mg (1/2 tablet) on Mo* METOPROLOL TARTRATE 25 MG TAB* Take 1 tablet by mouth every * FUROSEMIDE 40 MG TABLET Take 0.5 tablets by mouth onc* POTASSIUM CHLORIDE ER 20 MEQ * Take 1 tablet by mouth once d* ATORVASTATIN 10 MG TABLET TAKE 1 TABLET BY MOUTH EVERY * ACETAMINOPHEN 325 MG TABLET Take 2 tablets by mouth every* FERROUS SULFATE 325 MG (65 MG* Take 1 tablet by mouth twice * MELATONIN 3 MG TABLET Take 1 tablet by mouth at bed* ASCORBIC ACID (VITAMIN C) 500* Take 1 tablet by mouth twice * PRAMIPEXOLE 0.25 MG TABLET Take 1 tablet by mouth daily * PROAIR HFA 90 MCG/ACTUATION A* Inhale 2 Puffs as instructed * CHOLESTYRAMINE (WITH SUGAR) 4* Take 1 Packet by mouth once d* ALENDRONATE 70 MG TABLET Take 1 tablet by mouth once e* ASPIRIN 81 MG TABLET,DELAYED * Take 1 tablet by mouth once d* CYCLOBENZAPRINE 10 MG TABLET Take 0.5 tablets by mouth twi* CYANOCOBALAMIN (VIT B-12) 1,0* Dissolve 1 tablet under the t* CALCIUM CARBONATE 600 MG CALC* Take 600 mg by mouth once mirta* GABAPENTIN 100 MG CAPSULE Take 200 mg by mouth daily at* BIOTIN 5,000 MCG-SILICON DIOX* Take 1 tablet by mouth once d* MULTIVITAMIN TABLET Take 1 tablet by mouth once d* CHOLECALCIFEROL (VITAMIN D3) * Take 1,000 Units by mouth onc* Problem List As Of Date 05/21/2018 Noted Resolved Fibrocystic breast changes [N60.19] INVALID FOR*07/11/2015 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 Mitral regurgitation [I34.0] INVALID FOR*04/18/2018 More... S/P mitral valve replacement with bioprosthetic*INVALID FOR* S/P Maze operation for atrial fibrillation [Z98*INVALID FOR* Hypotension [I95.9] INVALID FOR* S/P left atrial appendage ligation [Z98.890] INVALID FOR* Stress hyperglycemia [R73.9] INVALID FOR* Anemia associated with acute blood loss [D62] INVALID FOR* Leukocytosis [D72.829] INVALID FOR* Malnutrition of mild degree (HCC) [E44.1] INVALID FOR* Prescriptions ordered this encounter Disp Refills Start End AMIODARONE 200 MG TABLET 90 t* 3 05/21/2018 Sig: Take 200 mg three times daily. Medications Discontinued During This Encounter amiodarone (PACERONE) 200 mg tablet 97 t* 0 04/23/2018 05/21/2018 Sig: Take 200 mg twice daily through 04/26, then take 1 tablet daily through 07/25/2018 Disc: Reason for discontinue is not on file. Encounter Status:Closed by MARGIE KHAN CNP on 05/21/18 OBSOLETE Observed: 05/03/2018 Status: COMPLETED Source: [place] 12:00 AM [facility] REPOSITORY Refill (AGVASACC) GLORIA MATHEW ([id number]) 1940 F Date Time Provider Department 05/03/18 MARGIE KHAN During your visit today, we recorded the following information about you: Allergies As of Date: 05/03/2018 (No Known Allergies) Date Reviewed: 04/30/2018 Reviewed by: Nadia (Callie) Jaren - Fully Assessed Reason for Visit: Refill Request [94] Order(s):atorvastatin (LIPITOR) 10 mg tabletTAKE 1 TABLET BY MOUTH EVERY NIGHT AT BEDTIMEDisp: 90 tabletRfl: 1 Prescriptions as of 05/03/2018 Sig: ATORVASTATIN 10 MG TABLET TAKE 1 TABLET BY MOUTH EVERY * ACETAMINOPHEN 325 MG TABLET Take 2 tablets by mouth every* ALENDRONATE 70 MG TABLET Take 1 tablet by mouth once e* AMIODARONE 200 MG TABLET Take 200 mg twice daily throu* ASCORBIC ACID (VITAMIN C) 500* Take 1 tablet by mouth twice * ASPIRIN 81 MG TABLET,DELAYED * Take 1 tablet by mouth once d* BIOTIN 5,000 MCG-SILICON DIOX* Take 1 tablet by mouth once d* CALCIUM CARBONATE 600 MG CALC* Take 600 mg by mouth once mirta* CHOLECALCIFEROL (VITAMIN D3) * Take 1,000 Units by mouth onc* CHOLESTYRAMINE (WITH SUGAR) 4* Take 1 Packet by mouth once d* CYANOCOBALAMIN (VIT B-12) 1,0* Dissolve 1 tablet under the t* CYCLOBENZAPRINE 10 MG TABLET Take 0.5 tablets by mouth twi* FERROUS SULFATE 325 MG (65 MG* Take 1 tablet by mouth twice * FUROSEMIDE 40 MG TABLET Take 0.5 tablets by mouth onc* GABAPENTIN 100 MG CAPSULE Take 200 mg by mouth daily at* MELATONIN 3 MG TABLET Take 1 tablet by mouth at bed* METOPROLOL TARTRATE 25 MG TAB* Take 0.5 tablets by mouth misha* MULTIVITAMIN TABLET Take 1 tablet by mouth once d* POTASSIUM CHLORIDE ER 20 MEQ * Take 1 tablet by mouth once d* PRAMIPEXOLE 0.25 MG TABLET Take 1 tablet by mouth daily * PROAIR HFA 90 MCG/ACTUATION A* Inhale 2 Puffs as instructed * WARFARIN 1 MG TABLET Take 0.5mg (1/2 tablet) on Mo* Problem List As Of Date 05/03/2018 Noted Resolved Fibrocystic breast changes [N60.19] INVALID FOR*07/11/2015 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 Mitral regurgitation [I34.0] INVALID FOR*04/18/2018 More... S/P mitral valve replacement with bioprosthetic*INVALID FOR* S/P Maze operation for atrial fibrillation [Z98*INVALID FOR* Hypotension [I95.9] INVALID FOR* S/P left atrial appendage ligation [Z98.890] INVALID FOR* Stress hyperglycemia [R73.9] INVALID FOR* Anemia associated with acute blood loss [D62] INVALID FOR* Leukocytosis [D72.829] INVALID FOR* Malnutrition of mild degree (HCC) [E44.1] INVALID FOR* Prescriptions ordered this encounter Disp Refills Start End ATORVASTATIN 10 MG TABLET 90 t* 1 05/03/2018 Cmt: Patient requests 90 days supply Sig: TAKE 1 TABLET BY MOUTH EVERY NIGHT AT BEDTIME Medications Discontinued During This Encounter atorvastatin (LIPITOR) 10 mg tablet 30 t* 1 04/23/2018 05/03/2018 Route: ORAL Sig: Take 1 tablet by mouth daily at bedtime. Disc: Reason for discontinue is not on file. Encounter Status:Closed by ROSALINE LAUREN CNP on 05/03/18 PROGRESS Observed: 04/30/2018 Status: COMPLETED Source: [place] 3:12 PM CLINIC OTHER CAMPUS REPOSITORY [facility] ID: [id number] Author: Margie Khan Service: (none) Author Type: Nurse Practitioner Type: Progress Notes Filed: 04/30/2018 4:58 PM Note Text: HPI:Gloria Mathew is a 77 year old female that returns to the office today for 1 week post-discharge follow up for mitral valve regurgitation and atrial fibrillation s/p Mitral valve replacement with 29-mm [employer] Epic bioprosthesis, Bilateral MAZE procedure with excision of the left atrial appendage and exclusion of the left atrial appendage with # 45mm AtriCure Clip performed on 04/16/2018. Her post-operative course was complicated by anemia status post PRBC ?1 unit, amnio was initiated for atrial fibrillation prior prophylaxis taper. She was discharged on 04/23/2018. Today, Gloria Mathew, reports 20 pound weight loss, low blood pressure, elevated heart rate, and a single episode of dizziness following a shower. Pain Some, well controlled with tylenol CV (Dizzy, palpitations, BP, edema)single episode of dizziness following a shower heart rate was noted to be 100 and blood pressure was noted to be 90/50 SOB/SENA Denies Fever: Denies Diet poor Bowel Normal Activity gradually increasing C/O low blood pressure Subjective: Current Outpatient Prescriptions: acetaminophen (TYLENOL) 325 mg tablet Take 2 tablets by mouth every 4 hours as needed. alendronate (FOSAMAX) 70 mg tablet Take 1 tablet by mouth once each week. amiodarone (PACERONE) 200 mg tablet Take 200 mg twice daily through 04/26, then take 1 tablet daily through 07/25/2018 ascorbic acid, vitamin C, (VITAMIN C) 500 mg tablet Take 1 tablet by mouth twice daily. aspirin, enteric coated (ASPIRIN, ENTERIC COATED) 81 mg EC tablet Take 1 tablet by mouth once daily. atorvastatin (LIPITOR) 10 mg tablet Take 1 tablet by mouth daily at bedtime. Biotin-Silicon Evnp-R-Lurcisps 5,000 mcg-100 mg- 50 mg tab Take 1 tablet by mouth once daily. calcium carbonate (CALTRATE) 600 mg calcium (1,500 mg) tab Take 600 mg by mouth once daily. Cholecalciferol, Vitamin D3, 1,000 unit cap Take 1,000 Units by mouth once daily. cholestyramine (QUESTRAN) 4 gram packet Take 1 Packet by mouth once daily. Cyanocobalamin (VITAMIN B-12) 1,000 mcg subl Dissolve 1 tablet under the tongue once daily. cyclobenzaprine (FLEXERIL) 10 mg tablet Take 0.5 tablets by mouth twice daily as needed for Pain. ferrous sulfate 325 mg (65 mg iron) tablet Take 1 tablet by mouth twice daily with meals. furosemide (LASIX) 40 mg tablet Take 1 tablet by mouth once daily. gabapentin (NEURONTIN) 100 mg capsule Take 200 mg by mouth daily at bedtime. melatonin 3 mg tablet Take 1 tablet by mouth at bedtime as needed (insomnia). metoprolol tartrate, short acting, (LOPRESSOR) 25 mg tablet Take 0.5 tablets by mouth every 8 hours. multivitamin tablet Take 1 tablet by mouth once daily. potassium chloride ER (K-DUR, KLOR-CON) 20 mEq tablet Take 1 tablet by mouth once daily. Take daily with furosemide (water pill) pramipexole (MIRAPEX) 0.25 mg tablet Take 1 tablet by mouth daily at bedtime. PROAIR HFA 90 mcg/actuation inhaler Inhale 2 Puffs as instructed every 6 hours as needed for Wheezing/Shortness of Breath. warfarin (COUMADIN) 1 mg tablet Take 0.5mg (1/2 tablet) on Thursday and Thursday and no warfarin on other days. No current facility-administered medications for this visit. Patient has no known allergies. PAST MEDICAL HISTORY Diagnosis Date - Breast mass, right - H/O maze procedure 04/16/2018 maze procedure with left and right atrial lesion sets (radiofrequency clamp and cryo) - H/O mitral valve replacement 04/16/2018 29-mm [employer] Zenon Epic bioprosthesis - IBS (irritable bowel syndrome) - Mitral valve regurgitation - Mitral valve stenosis - Pulmonary HTN (HCC) - S/P left atrial appendage ligation 04/16/2018 exclusion of left atrial appendage with a 45 mm atrial clip. - Tricuspid regurgitation PAST SURGICAL HISTORY Procedure Laterality Date - ATRIAL APPENDAGE LIGATION 04/16/2018 exclusion of left atrial appendage with a 45 mm atrial clip. - BREAST BIOPSY - CHOLECYSTECTOMY HX 10/02/2011 - HYSTERECTOMY HX MARYELLEN/BLO - LEG SURGERY HX - MAZE PROCEDURE 04/16/2018 maze procedure with left and right atrial lesion sets (radiofrequency clamp and cryo) - PICC LINE INSERTION (PICC TEAM) (AK) 04/21/2018 - REPLACEMENT OF MITRAL VALVE 04/16/2018 29-mm [facility] Zenon Epic bioprosthesis FAMILY HISTORY Problem Relation Age of Onset - Breast Cancer Mother stage III - Coronary Artery Disease Mother mother, uncle - Cancer Paternal Grandfather - Colon Cancer Maternal Grandmother - Diabetes Other uncle - Stroke Maternal Grandfather Social History Substance Use Topics - Smoking status: Never Smoker - Smokeless tobacco: Never Used - Alcohol use No Review of Systems Constitutional: Positive for weight loss (Expected Post op loss 20 lbs.). Negative for chills, fever and malaise/fatigue. HENT: Negative for sore throat. Respiratory: Negative for cough, sputum production, shortness of breath and wheezing. Cardiovascular: Negative for chest pain, palpitations, orthopnea, claudication, leg swelling and PND. Gastrointestinal: Negative for abdominal pain, blood in stool, constipation, diarrhea, melena, nausea and vomiting. Genitourinary: Negative for dysuria. Musculoskeletal: Negative for falls and joint pain. Skin: No new lesions Neurological: Positive for dizziness. Negative for tingling, sensory change, focal weakness, weakness and headaches. Endo/Heme/Allergies: Does not bruise/bleed easily. Psychiatric/Behavioral: Negative for depression. The patient has insomnia. Objective: Physical Examination: Vitals:BP 90/56 Pulse 100[irregular[ Resp 20 Ht 5' 2 (1.58m) Wt 144 lb (65.3kg) SpO2 94% BMI 26.33 kg/(m2). BP w/Orthostatic Vitals Date and Time Orthostatic BP Orthostatic Pulse BP Pulse BP Position BP Site BP Cuff Size 04/30/18 1435 -- -- 90/56 100 -- Left Arm -- Peak Flow Date and Time PF Resp 04/30/18 1435 -- 20 Last 2 Encounter Wt Readings: Date: Wt: 04/30/2018 144 lb (65.3 kg) 04/09/2018 142 lb (64.4 kg) Physical Exam Constitutional: She is oriented to person, place, and time and well-developed, well-nourished, and in no distress. HENT: Head: Normocephalic. Eyes: Pupils are equal, round, and reactive to light. Cardiovascular: Normal rate, S1 normal, S2 normal and intact distal pulses. No murmur heard. irregularly irregular Pulmonary/Chest: Effort normal and breath sounds normal. Abdominal: Soft. Normal appearance and bowel sounds are normal. Musculoskeletal: She exhibits no edema. Neurological: She is alert and oriented to person, place, and time. Gait normal. Skin: Skin is warm and intact. Midsternal incision clean dry, well approximated, no redness or drainage Sternum is stable Ct Sites scabbed and healing Psychiatric: Mood and affect normal. Assessment and Plan: ASSESSMENT/PLAN: 1. S/P Maze operation for atrial fibrillation - ICD9: V45.89, ICD10: Z98.890, Z86.79 (primary diagnosis) - Irregularly irregular rhythm noted today, with HR documented in low 100 at home - XR CHEST 2V FRONTAL/LAT - Continue Amiodarone 200 mg daily - Continue Metoprolol 12.5 mg TID 2. S/P mitral valve replacement with bioprosthetic valve - ICD9: V42.2, ICD10: Z95.3 - FUROSEMIDE 20 MG TABLET - Continue to monitor HR and BP - May change to as needed if weight continues to decline and BP remains low - Call to follow-up in 1 week with HR and BP - XR CHEST 2V FRONTAL/LAT- For next visit - We Will discuss cardiac rehab in 3-4 weeks when you return and know where you will be Margie Khan APRN.CNP In summary, Gloria Mathew is doing Fair overall after her MVR/MAZE/LAAC surgery, with no major complaints. I spent 30 minutes in consultation with greater than 50% in [id number] communication. She should follow-up in this office in 4 weeks with Chest X-ray. Thanks. Electronically signed by Margie Khan APRN.CNP on April 30, 2018, 3:12 PM CNOV Observed: 04/30/2018 Status: COMPLETED Source: [place] 2:30 PM CLINIC OTHER CAMPUS REPOSITORY Office Visit (AGVASACC) GLORIA MATHEW ([id number]) 1940 F Date Time Provider Department 04/30/18 2:30 PM MARGIE KHAN During your visit today, we recorded the following information about you: Pulse Respiration Blood pressure Weight 100/minute 20/minute 90/56 65.3 kg Height 1.575 m Margie Khan APRN.CNP 04/30/2018 4:58 PM Signed HPI:Gloria Mathew is a 77 year old female that returns to the office today for 1 week post-discharge follow up for mitral valve regurgitation and atrial fibrillation s/p Mitral valve replacement with 29-mm [employer] Zenon Epic bioprosthesis, Bilateral MAZE procedure with excision of the left atrial appendage and exclusion of the left atrial appendage with # 45mm AtriCure Clip performed on 04/16/2018. Her post-operative course was complicated by anemia status post PRBC ?1 unit, amnio was initiated for atrial fibrillation prior prophylaxis taper. She was discharged on 04/23/2018. Today, Gloria Mathew, reports 20 pound weight loss, low blood pressure, elevated heart rate, and a single episode of dizziness following a shower. Pain Some, well controlled with tylenol CV (Dizzy, palpitations, BP, edema)single episode of dizziness following a shower heart rate was noted to be 100 and blood pressure was noted to be 90/50 SOB/SENA Denies Fever: Denies Diet poor Bowel Normal Activity gradually increasing C/O low blood pressure Subjective: Current Outpatient Prescriptions: acetaminophen (TYLENOL) 325 mg tablet Take 2 tablets by mouth every 4 hours as needed. alendronate (FOSAMAX) 70 mg tablet Take 1 tablet by mouth once each week. amiodarone (PACERONE) 200 mg tablet Take 200 mg twice daily through 04/26, then take 1 tablet daily through 07/25/2018 ascorbic acid, vitamin C, (VITAMIN C) 500 mg tablet Take 1 tablet by mouth twice daily. aspirin, enteric coated (ASPIRIN, ENTERIC COATED) 81 mg EC tablet Take 1 tablet by mouth once daily. atorvastatin (LIPITOR) 10 mg tablet Take 1 tablet by mouth daily at bedtime. Biotin-Silicon Gjva-J-Mcgodgdh 5,000 mcg-100 mg- 50 mg tab Take 1 tablet by mouth once daily. calcium carbonate (CALTRATE) 600 mg calcium (1,500 mg) tab Take 600 mg by mouth once daily. Cholecalciferol, Vitamin D3, 1,000 unit cap Take 1,000 Units by mouth once daily. cholestyramine (QUESTRAN) 4 gram packet Take 1 Packet by mouth once daily. Cyanocobalamin (VITAMIN B-12) 1,000 mcg subl Dissolve 1 tablet under the tongue once daily. cyclobenzaprine (FLEXERIL) 10 mg tablet Take 0.5 tablets by mouth twice daily as needed for Pain. ferrous sulfate 325 mg (65 mg iron) tablet Take 1 tablet by mouth twice daily with meals. furosemide (LASIX) 40 mg tablet Take 1 tablet by mouth once daily. gabapentin (NEURONTIN) 100 mg capsule Take 200 mg by mouth daily at bedtime. melatonin 3 mg tablet Take 1 tablet by mouth at bedtime as needed (insomnia). metoprolol tartrate, short acting, (LOPRESSOR) 25 mg tablet Take 0.5 tablets by mouth every 8 hours. multivitamin tablet Take 1 tablet by mouth once daily. potassium chloride ER (K-DUR, KLOR-CON) 20 mEq tablet Take 1 tablet by mouth once daily. Take daily with furosemide (water pill) pramipexole (MIRAPEX) 0.25 mg tablet Take 1 tablet by mouth daily at bedtime. PROAIR HFA 90 mcg/actuation inhaler Inhale 2 Puffs as instructed every 6 hours as needed for Wheezing/Shortness of Breath. warfarin (COUMADIN) 1 mg tablet Take 0.5mg (1/2 tablet) on Thursday and Thursday and no warfarin on other days. No current facility-administered medications for this visit. Patient has no known allergies. PAST MEDICAL HISTORY Diagnosis Date - Breast mass, right - H/O maze procedure 04/16/2018 maze procedure with left and right atrial lesion sets (radiofrequency clamp and cryo) - H/O mitral valve replacement 04/16/2018 29-mm [facility] Zen[employer] Epic bioprosthesis - IBS (irritable bowel syndrome) - Mitral valve regurgitation - Mitral valve stenosis - Pulmonary HTN (HCC) - S/P left atrial appendage ligation 04/16/2018 exclusion of left atrial appendage with a 45 mm atrial clip. - Tricuspid regurgitation PAST SURGICAL HISTORY Procedure Laterality Date - ATRIAL APPENDAGE LIGATION 04/16/2018 exclusion of left atrial appendage with a 45 mm atrial clip. - BREAST BIOPSY - CHOLECYSTECTOMY HX 10/02/2011 - HYSTERECTOMY HX MARYELLEN/BLO - LEG SURGERY HX - MAZE PROCEDURE 04/16/2018 maze procedure with left and right atrial lesion sets (radiofrequency clamp and cryo) - PICC LINE INSERTION (PICC TEAM) (AK) 04/21/2018 - REPLACEMENT OF MITRAL VALVE 04/16/2018 29-mm [facility] Zenon Epic bioprosthesis FAMILY HISTORY Problem Relation Age of Onset - Breast Cancer Mother stage III - Coronary Artery Disease Mother mother, uncle - Cancer Paternal Grandfather - Colon Cancer Maternal Grandmother - Diabetes Other uncle - Stroke Maternal Grandfather Social History Substance Use Topics - Smoking status: Never Smoker - Smokeless tobacco: Never Used - Alcohol use No Review of Systems Constitutional: Positive for weight loss (Expected Post op loss 20 lbs.). Negative for chills, fever and malaise/fatigue. HENT: Negative for sore throat. Respiratory: Negative for cough, sputum production, shortness of breath and wheezing. Cardiovascular: Negative for chest pain, palpitations, orthopnea, claudication, leg swelling and PND. Gastrointestinal: Negative for abdominal pain, blood in stool, constipation, diarrhea, melena, nausea and vomiting. Genitourinary: Negative for dysuria. Musculoskeletal: Negative for falls and joint pain. Skin: No new lesions Neurological: Positive for dizziness. Negative for tingling, sensory change, focal weakness, weakness and headaches. Endo/Heme/Allergies: Does not bruise/bleed easily. Psychiatric/Behavioral: Negative for depression. The patient has insomnia. Objective: Physical Examination: Vitals:BP 90/56 Pulse 100[irregular[ Resp 20 Ht 5' 2 (1.58m) Wt 144 lb (65.3kg) SpO2 94% BMI 26.33 kg/(m2). BP w/Orthostatic Vitals Date and Time Orthostatic BP Orthostatic Pulse BP Pulse BP Position BP Site BP Cuff Size 04/30/18 1435 -- -- 90/56 100 -- Left Arm -- Peak Flow Date and Time PF Resp 04/30/18 1435 -- 20 Last 2 Encounter Wt Readings: Date: Wt: 04/30/2018 144 lb (65.3 kg) 04/09/2018 142 lb (64.4 kg) Physical Exam Constitutional: She is oriented to person, place, and time and well-developed, well-nourished, and in no distress. HENT: Head: Normocephalic. Eyes: Pupils are equal, round, and reactive to light. Cardiovascular: Normal rate, S1 normal, S2 normal and intact distal pulses. No murmur heard. irregularly irregular Pulmonary/Chest: Effort normal and breath sounds normal. Abdominal: Soft. Normal appearance and bowel sounds are normal. Musculoskeletal: She exhibits no edema. Neurological: She is alert and oriented to person, place, and time. Gait normal. Skin: Skin is warm and intact. Midsternal incision clean dry, well approximated, no redness or drainage Sternum is stable Ct Sites scabbed and healing Psychiatric: Mood and affect normal. Assessment and Plan: ASSESSMENT/PLAN: 1. S/P Maze operation for atrial fibrillation - ICD9: V45.89, ICD10: Z98.890, Z86.79 (primary diagnosis) - Irregularly irregular rhythm noted today, with HR documented in low 100 at home - XR CHEST 2V FRONTAL/LAT - Continue Amiodarone 200 mg daily - Continue Metoprolol 12.5 mg TID 2. S/P mitral valve replacement with bioprosthetic valve - ICD9: V42.2, ICD10: Z95.3 - FUROSEMIDE 20 MG TABLET - Continue to monitor HR and BP - May change to as needed if weight continues to decline and BP remains low - Call to follow-up in 1 week with HR and BP - XR CHEST 2V FRONTAL/LAT- For next visit - We Will discuss cardiac rehab in 3-4 weeks when you return and know where you will be Margie Khan APRN.CNP In summary, Gloria Mathew is doing Fair overall after her MVR/MAZE/LAAC surgery, with no major complaints. I spent 30 minutes in consultation with greater than 50% in [id number] communication. She should follow-up in this office in 4 weeks with Chest X-ray. Thanks. Electronically signed by Margie Khan APRN.CNP on April 30, 2018, 3:12 PM Margie Khan APRN.CNP 04/30/2018 3:42 PM Signed -Please follow-up with your primary care physician and your associate data scientist in 3-4 weeks -Please return to cardiac surgery in 3-4 weeks with a chest x-ray done before the appointment -Restriction remain: No lifting more than 10 lbs and No driving. -Cardiac rehab has been consulted. You will be able to begin cardiac rehab after your next visit with us. [phone] ([facility]) or [phone] ([facility]) -Feel free to call us if you have questions or concerns -Cut lasix in half (20 mg) daily. Continue to monitor hear rate, BP, leg swelling, and weight. Continue potassium daily with lasix -Call me in 1 week 05/10/2017) with how you are doing Thank you for coming to see me today! Margie Khan APRN.CNP Referring Provider: SAROJ AVELAR [[id number]] Allergies As of Date: 04/30/2018 (No Known Allergies) Date Reviewed: 04/30/2018 Reviewed by: Nadia (Callie) Jaren - Fully Assessed Reason for Visit: Post Op [174] Cmt: 04/16/18 MVR, Maze procedure Primary Visit Diagnosis:S/P Maze operation for atrial fibrillation [Z98.890, Z86.79] Other Visit Diagnosis:S/P mitral valve replacement with bioprosthetic valve [Z95.3] Order(s):furosemide (LASIX) 40 mg tabletTake 0.5 tablets by mouth once daily.Disp: 30 tabletRfl: 1 XR CHEST 2V FRONTAL/LAT [[id number]] Order #: [id number] FUTURE Prescriptions as of 04/30/2018 Sig: ACETAMINOPHEN 325 MG TABLET Take 2 tablets by mouth every* ALENDRONATE 70 MG TABLET Take 1 tablet by mouth once e* AMIODARONE 200 MG TABLET Take 200 mg twice daily throu* ASCORBIC ACID (VITAMIN C) 500* Take 1 tablet by mouth twice * ASPIRIN 81 MG TABLET,DELAYED * Take 1 tablet by mouth once d* ATORVASTATIN 10 MG TABLET Take 1 tablet by mouth daily * BIOTIN 5,000 MCG-SILICON DIOX* Take 1 tablet by mouth once d* CALCIUM CARBONATE 600 MG CALC* Take 600 mg by mouth once mirta* CHOLECALCIFEROL (VITAMIN D3) * Take 1,000 Units by mouth onc* CHOLESTYRAMINE (WITH SUGAR) 4* Take 1 Packet by mouth once d* CYANOCOBALAMIN (VIT B-12) 1,0* Dissolve 1 tablet under the t* CYCLOBENZAPRINE 10 MG TABLET Take 0.5 tablets by mouth twi* FERROUS SULFATE 325 MG (65 MG* Take 1 tablet by mouth twice * FUROSEMIDE 40 MG TABLET Take 0.5 tablets by mouth onc* GABAPENTIN 100 MG CAPSULE Take 200 mg by mouth daily at* MELATONIN 3 MG TABLET Take 1 tablet by mouth at bed* METOPROLOL TARTRATE 25 MG TAB* Take 0.5 tablets by mouth misha* MULTIVITAMIN TABLET Take 1 tablet by mouth once d* POTASSIUM CHLORIDE ER 20 MEQ * Take 1 tablet by mouth once d* PRAMIPEXOLE 0.25 MG TABLET Take 1 tablet by mouth daily * PROAIR HFA 90 MCG/ACTUATION A* Inhale 2 Puffs as instructed * WARFARIN 1 MG TABLET Take 0.5mg (1/2 tablet) on Mo* Problem List As Of Date 04/30/2018 Noted Resolved Fibrocystic breast changes [N60.19] INVALID FOR*07/11/2015 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 Mitral regurgitation [I34.0] INVALID FOR*04/18/2018 More... S/P mitral valve replacement with bioprosthetic*INVALID FOR* S/P Maze operation for atrial fibrillation [Z98*INVALID FOR* Hypotension [I95.9] INVALID FOR* S/P left atrial appendage ligation [Z98.890] INVALID FOR* Stress hyperglycemia [R73.9] INVALID FOR* Anemia associated with acute blood loss [D62] INVALID FOR* Leukocytosis [D72.829] INVALID FOR* Malnutrition of mild degree (HCC) [E44.1] INVALID FOR* Other instructions from your clinician: -Please follow-up with your primary care physician and your associate data scientist in 3-4 weeks -Please return to cardiac surgery in 3-4 weeks with a chest x-ray done before the appointment -Restriction remain: No lifting more than 10 lbs and No driving. -Cardiac rehab has been consulted. You will be able to begin cardiac rehab after your next visit with us. [phone] ([facility]) or [phone] ([facility]) -Feel free to call us if you have questions or concerns -Cut lasix in half (20 mg) daily. Continue to monitor hear rate, BP, leg swelling, and weight. Continue potassium daily with lasix -Call me in 1 week 05/10/2017) with how you are doing Thank you for coming to see me today! Margie Khan APRN.DITTO MACHINE OPERATOR Prescriptions ordered this encounter Disp Refills Start End FUROSEMIDE 40 MG TABLET 30 t* 1 04/30/2018 Class: Med Update Route: ORAL Sig: Take 0.5 tablets by mouth once daily. Medications Discontinued During This Encounter furosemide (LASIX) 40 mg tablet 30 t* 1 04/23/2018 04/30/2018 Route: ORAL Sig: Take 1 tablet by mouth once daily. Disc: Reason for discontinue is not on file. Encounter Status:Closed by MARGIE KHAN CNP on 04/30/18 PROGRESS Observed: 04/30/2018 Status: COMPLETED Source: [place] 1:42 PM CLINIC OTHER CAMPUS REPOSITORY O ID: [id number] Author: Mellisa Dutta (Pharmacist) Service: (none) Author Type: Pharmacist Type: Progress Notes Filed: 04/30/2018 1:48 PM Note Text: Referred by: Dr. Perez Indication: New onset valvular AFib, Rheumatic mitral regurgitation, Rheumatic mitral stenosis INR goal: 2.0-3.0 Duration: Indefinite Bridging assessment and details: Low risk of therapy interruption. CHADS-VASC = 3 (age, female) Consult agreement signed by physician. Patient has been notified verbally and/or in writing of the terms of the pharmacist-physician consult agreement for the anticoagulation clinic. Date: 03/19/2018 PT INR Date Value Ref Range Status 04/28/2018 3.9 Final INR Date Value Ref Range Status 04/30/2018 2.5 (A) 0.81 - 1.21 Final Current warfarin dose: 0.5mg every other day (started 04/24/18) Anticoagulation Warfarin Dose Instructions as of 04/30/2018 Sun Thu New Dose 0 mg 0.5 mg 0 mg 0 mg 0 mg 0.5 mg 0 mg Description START 0.5mg on Thursday and Thursday and no warfarin on any other days. INR to be rechecked by home nurse on ThursdayMay 05. Patient is a recent start to warfarin and has been very sensitive to warfarin doses. Patient was then admitted to [facility] 04/16-04/23/18. ?On 04/16 she had?elective MVR with MAZE and LAAC. Post op ICU recovery complicated by anemia S/P PRBC x 1 unit. She was started on coumadin POD 1 per protocol. Amiodarone was continued (start end of March) as atrial fibrillation prophylaxis taper and plan to continue for 90 days. INR at discharge was 3.13 and she was sent home on 0.5mg every other days as she is very sensitive to warfarin and is on amiodarone. INR on 04/25 was elevated at 3.4. INR was then 3.9 on 04/28. She had received warfarin on 04/24 and 04/26. She was instructed to hold warfarin 04/28 and 04/29. INR is now 2.5. Appears that patient may only require 0.5mg 2-3 times per week. Will start above regimen and follow closely. Spoke with Lizet at [facility] and ordered INR for 05/05/18. Patient is currently staying with her sister and can be reached at [phone]. Mellisa Dutta PharmD CNOV Observed: 04/30/2018 Status: COMPLETED Source: [place] 1:30 PM CLINIC OTHER CAMPUS REPOSITORY Office Visit (AG[facility]) GLORIA MATHEW ([id number]) 1940 F Date Time Provider Department 04/30/18 1:30 PM COUMADIN CLINIC [facility] During your visit today, we recorded the following information about you: Pulse Blood pressure 117/minute 93/56 Mellisa Dutta PharmD 04/30/2018 1:48 PM Signed Referred by: Dr. Perez Indication: New onset valvular AFib, Rheumatic mitral regurgitation, Rheumatic mitral stenosis INR goal: 2.0-3.0 Duration: Indefinite Bridging assessment and details: Low risk of therapy interruption. CHADS-VASC = 3 (age, female) Consult agreement signed by physician. Patient has been notified verbally and/or in writing of the terms of the pharmacist-physician consult agreement for the anticoagulation clinic. Date: 03/19/2018 PT INR Date Value Ref Range Status 04/28/2018 3.9 Final INR Date Value Ref Range Status 04/30/2018 2.5 (A) 0.81 - 1.21 Final Current warfarin dose: 0.5mg every other day (started 04/24/18) Anticoagulation Warfarin Dose Instructions as of 04/30/2018Thu New Dose 0 mg 0.5 mg 0 mg 0 mg 0 mg 0.5 mg 0 mg Description START 0.5mg on Thursday and Thursday and no warfarin on any other days. INR to be rechecked by home nurse on ThursdayMay 05. Patient is a recent start to warfarin and has been very sensitive to warfarin doses. Patient was then admitted to [facility] 04/16-04/23/18. ?On 04/16 she had?elective MVR with MAZE and LAAC. Post op ICU recovery complicated by anemia S/P PRBC x 1 unit. She was started on coumadin POD 1 per protocol. Amiodarone was continued (start end of March) as atrial fibrillation prophylaxis taper and plan to continue for 90 days. INR at discharge was 3.13 and she was sent home on 0.5mg every other days as she is very sensitive to warfarin and is on amiodarone. INR on 04/25 was elevated at 3.4. INR was then 3.9 on 04/28. She had received warfarin on 04/24 and 04/26. She was instructed to hold warfarin 04/28 and 04/29. INR is now 2.5. Appears that patient may only require 0.5mg 2-3 times per week. Will start above regimen and follow closely. Spoke with Lizet at [facility] and ordered INR for 05/05/18. Patient is currently staying with her sister and can be reached at [phone]. Mellisa Dutta, TangelaD Referring Provider: SELF [200] Allergies As of Date: 04/30/2018 (No Known Allergies) Date Reviewed: 04/30/2018 Reviewed by: Aparna Segovia) CALLIE Vaughan - Fully Assessed Reason for Visit: Anticoagulation [8] Visit Diagnoses:FPC current use of 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 [Z79.01] Paroxysmal atrial fibrillation (HCC) [I48.0] Order(s):INR FINGERSTICK B/O [[id number]] Order #: [id number] warfarin (COUMADIN) 1 mg tabletTake 0.5mg (1/2 tablet) on Thursday and Thursday and no warfarin on other days.Disp: Rfl: Prescriptions as of 04/30/2018 Sig: ACETAMINOPHEN 325 MG TABLET Take 2 tablets by mouth every* ALENDRONATE 70 MG TABLET Take 1 tablet by mouth once e* AMIODARONE 200 MG TABLET Take 200 mg twice daily throu* ASCORBIC ACID (VITAMIN C) 500* Take 1 tablet by mouth twice * ASPIRIN 81 MG TABLET,DELAYED * Take 1 tablet by mouth once d* ATORVASTATIN 10 MG TABLET Take 1 tablet by mouth daily * BIOTIN 5,000 MCG-SILICON DIOX* Take 1 tablet by mouth once d* CALCIUM CARBONATE 600 MG CALC* Take 600 mg by mouth once mirta* CHOLECALCIFEROL (VITAMIN D3) * Take 1,000 Units by mouth onc* CHOLESTYRAMINE (WITH SUGAR) 4* Take 1 Packet by mouth once d* CYANOCOBALAMIN (VIT B-12) 1,0* Dissolve 1 tablet under the t* CYCLOBENZAPRINE 10 MG TABLET Take 0.5 tablets by mouth twi* FERROUS SULFATE 325 MG (65 MG* Take 1 tablet by mouth twice * FUROSEMIDE 40 MG TABLET Take 1 tablet by mouth once d* GABAPENTIN 100 MG CAPSULE Take 200 mg by mouth daily at* MELATONIN 3 MG TABLET Take 1 tablet by mouth at bed* METOPROLOL TARTRATE 25 MG TAB* Take 0.5 tablets by mouth misha* MULTIVITAMIN TABLET Take 1 tablet by mouth once d* POTASSIUM CHLORIDE ER 20 MEQ * Take 1 tablet by mouth once d* PRAMIPEXOLE 0.25 MG TABLET Take 1 tablet by mouth daily * PROAIR HFA 90 MCG/ACTUATION A* Inhale 2 Puffs as instructed * WARFARIN 1 MG TABLET Take 0.5mg (1/2 tablet) on Mo* Problem List As Of Date 04/30/2018 Noted Resolved Fibrocystic breast changes [N60.19] INVALID FOR*07/11/2015 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 Mitral regurgitation [I34.0] INVALID FOR*04/18/2018 More... S/P mitral valve replacement with bioprosthetic*INVALID FOR* S/P Maze operation for atrial fibrillation [Z98*INVALID FOR* Hypotension [I95.9] INVALID FOR* S/P left atrial appendage ligation [Z98.890] INVALID FOR* Stress hyperglycemia [R73.9] INVALID FOR* Anemia associated with acute blood loss [D62] INVALID FOR* Leukocytosis [D72.829] INVALID FOR* Malnutrition of mild degree (HCC) [E44.1] INVALID FOR* Prescriptions ordered this encounter Disp Refills Start End WARFARIN 1 MG TABLET 04/30/2018 Class: Med Update Sig: Take 0.5mg (1/2 tablet) on Thursday and Thursday and no warfarin on other days. Medications Discontinued During This Encounter warfarin (COUMADIN) 1 mg tablet 30 t* 3 04/24/2018 04/30/2018 Sig: Take 0.5mg (1/2 tablet) every other day. Next dose is 04/24/2018. Disc: Adjust Sig - Block E-Cancel Follow-up and Disposition History Recorded Encounter Status:Closed by SINDHU (PHARMACIST)MELLISA on 04/30/18 Chart Close Cosign Required by: Yusuf Cast[] PLAN OF CARE Observed: 04/23/2018 Status: COMPLETED Source: [place] 2:21 PM CLINIC OTHER CAMPUS REPOSITORY O ID: [id number] Author: Candis Rogers (Cutter Tender) Service: (none) Author Type: (none) Type: Plan of Care Filed: 04/23/2018 3:08 PM Note Text: PHARMACY BEDSIDE DELIVERY SERVICE Patient Name: Gloria Mathew The marked outpatient medications were Filled at: [place] and delivered to the patient's bedside to PATIENT, ,RN WAS IN THE ROOM. Medication List START taking these medications acetaminophen 325 mg tablet Commonly known as: TYLENOL Take 2 tablets by mouth every 4 hours as needed. ascorbic acid (vitamin C) 500 mg tablet Commonly known as: VITAMIN C Take 1 tablet by mouth twice daily. cyclobenzaprine 10 mg tablet Commonly known as: FLEXERIL Take 0.5 tablets by mouth twice daily as needed for Pain. ferrous sulfate 325 mg (65 mg iron) tablet Take 1 tablet by mouth twice daily with meals. melatonin 3 mg tablet Take 1 tablet by mouth at bedtime as needed (insomnia). potassium chloride ER 20 mEq tablet Commonly known as: K-DUR, KLOR-CON Take 1 tablet by mouth once daily. Take daily with furosemide (water pill) CHANGE how you take these medications alendronate 70 mg tablet Commonly known as: FOSAMAX Take 1 tablet by mouth once each week. What changed: when to take this amiodarone 200 mg tablet Commonly known as: PACERONE Take 200 mg twice daily through 04/26, then take 1 tablet daily through 07/25/2018 What changed: ? medication strength ? how much to take ? how to take this ? when to take this ? additional instructions metoprolol tartrate (short acting) 25 mg tablet Commonly known as: LOPRESSOR Take 0.5 tablets by mouth every 8 hours. What changed: how much to take PROAIR HFA 90 mcg/actuation inhaler Generic drug: albuterol HFA Inhale 2 Puffs as instructed every 6 hours as needed for Wheezing/Shortness of Breath. What changed: how to take this warfarin 1 mg tablet Commonly known as: COUMADIN Take 0.5mg (1/2 tablet) every other day. Next dose is 04/24/2018. Start taking on: 04/24/2018 What changed: additional instructions CONTINUE taking these medications aspirin, enteric coated 81 mg EC tablet Commonly known as: ASPIRIN, ENTERIC COATED Take 1 tablet by mouth once daily. atorvastatin 10 mg tablet Commonly known as: LIPITOR Take 1 tablet by mouth daily at bedtime. Biotin-Silicon Qgqq-R-Seozwkib 5,000 mcg -100 mg-50 mg Tab calcium carbonate 600 mg calcium (1,500 mg) Tab Commonly known as: CALTRATE Cholecalciferol (Vitamin D3) 1,000 unit Cap cholestyramine 4 gram packet Commonly known as: QUESTRAN Take 1 Packet by mouth once daily. furosemide 40 mg tablet Commonly known as: LASIX Take 1 tablet by mouth once daily. gabapentin 100 mg capsule Commonly known as: NEURONTIN multivitamin tablet pramipexole 0.25 mg tablet Commonly known as: MIRAPEX Take 1 tablet by mouth daily at bedtime. VITAMIN B-12 1,000 mcg Subl Generic drug: Cyanocobalamin You might also be taking other medications not listed above. If you have questions about any of your other medications, talk to the person who prescribed them or your Primary Care Provider. STOP taking these medications amoxicillin 500 mg capsule Commonly known as: POLYMOX, AMOXIL digoxin 125 mcg tablet Commonly known as: LANOXIN enoxaparin 60 mg/0.6 mL Syrg Commonly known as: LOVENOX Candis Rogers (Cutter Tender) PHONE:[email or web address] [phone] or [phone] April 23, 2018 3:06 PM PT ED Observed: 04/23/2018 Status: COMPLETED Source: [place] 12:19 PM CLINIC OTHER CAMPUS REPOSITORY HNO ID: [id number] Author: Julieta Jade (Pharmacist) Service: Pharmacy Author Type: Pharmacist Type: Patient Education Filed: 04/23/2018 12:21 PM Note Text: DISCHARGE MEDICATION REVIEW AND COUNSELING BY PHARMACY Patient Name: Gloria Mathew Account #: Data Unavailable Admission Date: 04/16/2018 Date of Contact: April 23, 2018 Time of Contact: 12:20 PM LEARNERS Persons Present: Patient and Family: sister Primary Learner: Patient and Family: sister Medication list was reviewed by a Pharmacist for drug interactions or drug related problems:Yes The patient was counseled on the medication(s) listed below and was given the opportunity to ask questions regarding indication, dosage, side effects and drug interactions READINESS TO LEARN COGNITIVE ABILITY:Alert and oriented MOTIVATION TO LEARN:Interested FAMILY SUPPORT:High - Very involved in pt care INSTRUCTION PROVIDED TO:Patient and family member PATIENT LEARNS BEST BY:Individual Instruction Written Instruction - Hand-outs Verbal Instruction FACTORS AFFECTING LEARNING:None PHYSICAL LIMITATIONS AFFECTING LEARNING:None LEARNING RESPONSE PATIENT / FAMILY RESPONSE:Verbalizes understanding of: Accurate knowledge of prescribed medication prior to discharge. The correct action to take if medication dose is missed. The side effects associated with the medication that warrant a call to the physician. JULIETA JADE, PHARMACIST April 23, 2018 12:20 PM Medication List START taking these medications acetaminophen 325 mg tablet Commonly known as: TYLENOL Take 2 tablets by mouth every 4 hours as needed. ascorbic acid (vitamin C) 500 mg tablet Commonly known as: VITAMIN C Take 1 tablet by mouth twice daily. cyclobenzaprine 10 mg tablet Commonly known as: FLEXERIL Take 0.5 tablets by mouth twice daily as needed for Pain. ferrous sulfate 325 mg (65 mg iron) tablet Take 1 tablet by mouth twice daily with meals. melatonin 3 mg tablet Take 1 tablet by mouth at bedtime as needed (insomnia). potassium chloride ER 20 mEq tablet Commonly known as: K-DUR, KLOR-CON Take 1 tablet by mouth once daily. Take daily with furosemide (water pill) CHANGE how you take these medications alendronate 70 mg tablet Commonly known as: FOSAMAX Take 1 tablet by mouth once each week. What changed: when to take this amiodarone 200 mg tablet Commonly known as: PACERONE Take 200 mg twice daily through 04/26, then take 1 tablet daily through 07/25/2018 What changed: ? medication strength ? how much to take ? how to take this ? when to take this ? additional instructions metoprolol tartrate (short acting) 25 mg tablet Commonly known as: LOPRESSOR Take 0.5 tablets by mouth every 8 hours. What changed: how much to take PROAIR HFA 90 mcg/actuation inhaler Generic drug: albuterol HFA Inhale 2 Puffs as instructed every 6 hours as needed for Wheezing/Shortness of Breath. What changed: how to take this warfarin 1 mg tablet Commonly known as: COUMADIN Take 0.5mg (1/2 tablet) every other day. Next dose is 04/24/2018. Start taking on: 04/24/2018 What changed: additional instructions CONTINUE taking these medications aspirin, enteric coated 81 mg EC tablet Commonly known as: ASPIRIN, ENTERIC COATED Take 1 tablet by mouth once daily. atorvastatin 10 mg tablet Commonly known as: LIPITOR Take 1 tablet by mouth daily at bedtime. Biotin-Silicon Stpp-C-Nrkbyuvj 5,000 mcg -100 mg-50 mg Tab calcium carbonate 600 mg calcium (1,500 mg) Tab Commonly known as: CALTRATE Cholecalciferol (Vitamin D3) 1,000 unit Cap cholestyramine 4 gram packet Commonly known as: QUESTRAN Take 1 Packet by mouth once daily. furosemide 40 mg tablet Commonly known as: LASIX Take 1 tablet by mouth once daily. gabapentin 100 mg capsule Commonly known as: NEURONTIN multivitamin tablet pramipexole 0.25 mg tablet Commonly known as: MIRAPEX Take 1 tablet by mouth daily at bedtime. VITAMIN B-12 1,000 mcg Subl Generic drug: Cyanocobalamin STOP taking these medications amoxicillin 500 mg capsule Commonly known as: POLYMOX, AMOXIL digoxin 125 mcg tablet Commonly known as: LANOXIN enoxaparin 60 mg/0.6 mL Syrg Commonly known as: LOVENOX Where to Get Your Medications These medications were sent to e- [facility] [place] [place] [address] - [address] [facility] - [phone] [id number] [address] [facility] [id number] ? alendronate 70 mg tablet ? amiodarone 200 mg tablet ? aspirin, enteric coated 81 mg EC tablet ? atorvastatin 10 mg tablet ? cholestyramine 4 gram packet ? cyclobenzaprine 10 mg tablet ? ferrous sulfate 325 mg (65 mg iron) tablet ? furosemide 40 mg tablet ? metoprolol tartrate (short acting) 25 mg tablet ? potassium chloride ER 20 mEq tablet ? pramipexole 0.25 mg tablet ? PROAIR HFA 90 mcg/actuation inhaler ? warfarin 1 mg tablet Information about where to get these medications is not yet available Ask your nurse or doctor about these medications ? acetaminophen 325 mg tablet ? ascorbic acid (vitamin C) 500 mg tablet ? melatonin 3 mg tablet GLUCOSE METER Collected: 04/23/2018 Status: F Source: [facility] 11:36 AM HEALTH SYSTEM REPOSITORY TYPE CODE TESTS RESULT OUT OF REFERENCE UNITS RANGE LAB GLUBL(LOINC 70-99 mg/dL ) High Glucose Meter 141 Result Comment: RN NOTIFIED Performed By: #### GLMET #### [address] [address] CNDS Observed: 04/23/2018 Status: COMPLETED Source: [place] 9:23 AM CLINIC OTHER CAMPUS REPOSITORY HNO ID: [id number] Author: Margie Khan Service: Cardiac Surgery Author Type: Nurse Practitioner Type: Discharge Summaries Filed: 04/23/2018 9:28 AM Note Text: DISCHARGE SUMMARY PATIENT NAME: Gloria Mathew Code Status: Not on file Highest Readmission Risk Score: 34 The 30 day readmissions risk score is derived from an internally validated risk model which evaluates patient level characteristics, utilization history, medication orders and lab results up until the day of discharge. Patients with a score of 40 or above are considered highest risk for readmission. Specific patient level drivers will be listed at the bottom of the summary. Admission Information Admission Information ADMIT DATE: 04/16/2018 DISCHARGE DATE: 04/23/2018 MY DOCTORS AND MEDICAL TEAM: My Main Hospital Doctor: Gui De Los Santos Primary Care Provider: Loree Small MD My Medical Team Members: Treatment Team: Attending Provider: Gui De Los Santos MY CONDITION AT DISCHARGE: Stable REASON I WAS IN THE HOSPITAL: Planned mitral valve replacement surgery SUMMARY OF WHAT HAPPENED WHILE I WAS IN THE HOSPITAL: HPI: This is a 77 year old female with PMH of moderately severe MR with moderate MS, rheumatic fever, Afib with RVR (new), TRISH (on Cpap) and IBS, who presented to ED with elevated INR (13), SOB and some chest discomfort/palpitation. Patient was?recently diagnosed with?A fib and was started on metoprolol and Coumadin by Dr. Perez's TUNNELLER on 03/16. Her HR was still high which her metoprolol dose was increased to 25 mg BID subsequently. Patient has been following Dr. Perez for her MR, MS with series of Echo studies and was scheduled to have L/R HC and MEERA done on 03/31 electively. She was advised to ED from coumadin clinic with elevated INR on Thursday. In ED, she was found to have HR of 140s- 150s, therefore, she received IV metoprolol and digoxin in addition to Vit K for the supra therapeutic INR. ?CXR found her to have bilateral pleural effusion with clinical symptom of SOB, so she was admitted for acute respiratory management with diuresis. During the interim, patient was found to have renal calculi on the left kidney, which subsequently resolved spontaneously without intervention. Consult to CTS is placed for Mitral valve evaluation. Patient denied chest pain, she does report some chest palpitation, mild shortness of breath with exertions and worsening of weakness, especially in her leg which was very debilitaing . Denied orthopnea or PND, no LH/DZ, syncope/presyncope or leg edema. ? Interval Events: 04/16/2018 Elective MVR with MAZE and LAAC. Post op ICU recovery complicated by anemia S/P PRBC x 1 unit. She was started on coumadin POD 1 per protocol. Amio as atrial fibrillation prophylaxis taper and continue 90 days as ordered. ? OTHER PROBLEMS/DIAGNOSIS: Symptomatic severe mitral stenosis -s/p MVR with a 29-mm St. Zenon bioprosthetic valve; POD#6 -EF 55% preop -Medical management with ASA 81 mg, Metoprolol 12.5 BID, -INR 3.36 - hold Coumadin today -Post op limited ECHO: EF 60%, Valve well seated without MR, P/M gradients valve 24 and 5 mmHg respectively ?? Paroxysmal atrial fibrillation -s/p maze?procedure AND?exclusion of OLGA with atrial clip; POD#6 -Remains in NSR -c/w?Amiodarone PO with taper schedule for 90 days see orders; hold Amio if HR <65 -Continue coumadin , see above -Keep K>4 and Mag >2 ? Therapeutic INR -INR 3.36 today -Pharmacy Warfarin Education -[facility] referral placed -Patient reports she had a supratherapeutic INR 13 during her last admission -Will require careful monitoring ? Anticipated acute pulmonary insufficiency s/p CTS -Room Air -IS and CANDDB, ambulation ? Volume overload -Weight +20 lbs 73/64 kg -Lasix 40mg BID - Watch BMP -K+ ? Hyperglycemia -HgbA1C 5.2 -c/w SSI -Not requiring coverage, will D/C in AM if not required today. ? Leukocytosis -Likely reactive -Trended down ? Anticipated acute blood loss anemia -Hgb 7.9 today s/p 1 unit PRBC -FeSO4?AND?ascorbic acid ? ? ? DIspo: Home with home health care likely 24-48 hour. She reports going to [place] to be near her sister for care the first 1-2 weeks. [facility] should follow her there. Will need PT/INR ordered for [facility] to perform on intake and [facility] referral at discharge. I will initiate prior to discharge. OPERATIONS PERFORMED WHILE IN THE HOSPITAL: MVR 29-mm St. Zenon Epic bioprosthesis; maze procedure with left and right atrial lesion sets (radiofrequency clamp and cryo); LAAC with a 45 mm atrial clip. IMPORTANT TEST/PROCEDURES: Echocardiogram ? CONCLUSIONS: - Technically difficult exam due to post op and suboptimal positioning. - Exam indication: Initial postoperative evaluation of prosthetic valve (baseline) - Left ventricular systolic function is normal. EF = 60 ? 5% (visual est.) Postoperative septal wall motion seen. - Post mitral valve replacement. ST. ZENON EPIC prosthetic mitral valve (size #29). ?There is no mitral valve regurgitation. The peak and mean gradients across the valve are 24 and 5 mmHg respectively, at a heart rate of 59 bpm. the valve appears ?to be well-seated without perivalvular regurgitation. - There is no pericardial effusion. - Exam was compared with the prior echocardiographic exam performed on 04/16/2018 TEST RESULTS NOT AVAILABLE AT THIS TIME: No pending results Discharge Disposition Discharge Disposition: Home With Home Care Activity When You Leave the Hospital Lifting is restricted to: Less than 10 pounds. May use stairs May walk with a cane May walk with a walker No driving until cleared by surgeon. No walking restrictions Shower and wash incisions daily. No tub bath. Diet Instructions Heart Healthy Fluid restriction 2 liters per day. For Pain When You Leave the Hospital You should use an [id number]-mlz-epfuqyn stool softener (Docusate sodium) and/or a fiber supplement (Metamucil, Fiber Con) every day while taking prescribed pain medication Wound/Surgical Site Care Wash your hands frequently, especially before touching your incision, after using restroom and before eating Your incision has skin glue. It will peel off on its own. It can get wet Call Your Doctor If Other: Shortness of breath, chest pain, weight gain, swelling of legs There is an unusual odor from the wound area There is severe pain at the operative site You have lightheadedness, fainting, or confusion You have redness, swelling, pus or drainage from the wound Your temperature is greater than 101F Follow Up Appointments Follow-Up Appointment With: Cardiology When: In 6 weeks Patient/Parents to call for appointment?: Yes Call [phone] to schedule. Follow-Up Appointment [address] [facility]. [address], [place], [place] [id number] Enter thru [facility] and take the silver elevator to the 3rd floor. The office is immediately on the right. When: In 1 week Patient/Parents to call for appointment?: Scheduled Margie Khan [phone] 1 [facility] [id number] PCP Requested Referral Additional Provider to Provider Information: Comadin managed by [facility] clinc. acieved supratherapeutic level at 13. Current dosing is 0.5mg QOD Transitions of Care Critical Issues: LAB MONITORING NEEDED: INR to be called to [facility] [phone] LABS AND PROCEDURES PENDING AT DISCHARGE: No pending results. FOLLOW-UP APPOINTMENTS ALREADY SCHEDULED WITH A [facility] PROVIDER: Future Appointments Date Time Provider Department Center 06/14/2018 11:00 AM RICHAR JONES AKCRLG [facility] 07/12/2018 2:00 PM Jean-Pierre Perez AGCARDHWW [facility] ALLERGIES No Known Allergies DISCHARGE MEDICATION: Current Discharge Medication List START taking these medications acetaminophen (TYLENOL) 650 mg Take 650 mg by mouth every 4 hours as needed. ascorbic acid (vitamin C) (VITAMIN C) 500 mg Take 500 mg by mouth twice daily. cyclobenzaprine (FLEXERIL) 5 mg Take 5 mg by mouth twice daily as needed for Pain. Qty: 10 tablet Refills: 0 ferrous sulfate 325 mg Take 325 mg by mouth twice daily with meals. Qty: 60 tablet Refills: 1 melatonin 3 mg Take 3 mg by mouth at bedtime as needed (insomnia). potassium chloride ER (K-DUR, KLOR-CON) 20 mEq Take 20 mEq by mouth once daily. Take daily with furosemide (water pill) Qty: 30 tablet Refills: 3 CONTINUE these medications which have CHANGED alendronate (FOSAMAX) 70 mg Take 70 mg by mouth once each week. Qty: 4 tablet Refills: 0 amiodarone (PACERONE) 200 mg tablet Take 200 mg twice daily through 04/26, then take 1 tablet daily through 07/25/2018 Qty: 97 tablet Refills: 0 aspirin, enteric coated (ASPIRIN, ENTERIC COATED) 81 mg Take 81 mg by mouth once daily. Qty: 30 tablet Refills: 1 atorvastatin (LIPITOR) 10 mg Take 10 mg by mouth daily at bedtime. Qty: 30 tablet Refills: 1 cholestyramine (QUESTRAN) 4 g Take 4 g by mouth once daily. Qty: 30 Packet Refills: 0 furosemide (LASIX) 40 mg Take 40 mg by mouth once daily. Qty: 30 tablet Refills: 1 metoprolol tartrate (short acting) (LOPRESSOR) 12.5 mg Take 12.5 mg by mouth every 8 hours. Qty: 30 tablet Refills: 2 pramipexole (MIRAPEX) 0.25 mg Take 0.25 mg by mouth daily at bedtime. Qty: 30 tablet Refills: 1 PROAIR HFA 2 Puffs Inhale 2 Puffs as instructed every 6 hours as needed for Wheezing/Shortness of Breath. Qty: 1 Inhaler Refills: 0 warfarin (COUMADIN) 1 mg tablet Take 0.5mg (1/2 tablet) every other day. Next dose is 04/24/2018. Qty: 30 tablet Refills: 3 CONTINUE these medications which have NOT CHANGED calcium carbonate (CALTRATE) 600 mg Take 600 mg by mouth once daily. Cyanocobalamin 1 tablet Dissolve 1 tablet under the tongue once daily. gabapentin (NEURONTIN) 200 mg Take 200 mg by mouth daily at bedtime. multivitamin 1 tablet Take 1 tablet by mouth once daily. Biotin-Silicon Rqes-R-Hxhqxutt 1 tablet Take 1 tablet by mouth once daily. Cholecalciferol (Vitamin D3) 1,000 Units Take 1,000 Units by mouth once daily. STOP taking these medications amoxicillin (POLYMOX, AMOXIL) 500 mg capsule Comments: Reason for Stopping: digoxin (LANOXIN) 0.125 mg Comments: Reason for Stopping: enoxaparin (LOVENOX) 60 mg Comments: Reason for Stopping: Discharge Physical Exam: VITAL SIGNS: BP (!) 102/40 Pulse 73 Temp 37 ?C (98.6 ?F) (Oral) Resp 18 Ht 157.5 cm (5' 2.01) Wt 71.8 kg (158 lb 3.2 oz) SpO2 98% BMI 28.93 kg/m? GENERAL: Alert, no distress, cooperative SKIN: Skin color, texture, turgor normal. No rashes or lesions. LUNGS: Lungs clear to auscultation, Good diaphragmatic excursion CARDIAC: Normal S1 and S2; no rubs, murmurs, or gallops ABDOMEN: Abdomen soft, non-tender, BS normal, No masses or organomegaly EXTREMITIES: Extremities normal, no deformities, clubbing or skin discoloration. Good capillary refill., No ulcers 2+ edema at thighs. Weight is +15 lbs. NEURO: Grossly normal cognition, motor function, and cranial nerves III-XII, Gait normal. Reflexes normal and symmetric. Sensation grossly intact PULSES: 2+ radial, 2+ dorsalis pedis WOUND: Clean, dry and intact, Well approximated incision, Non-reddened, Wound edges not approximated The patient's risk for 30-day readmission is determined using the following contributing factors: Pt variables contributing to increased readmission risk: 28 Most Recent BUN Result 28 Active Medication Orders 7.2 First Resulted Calcium During Admission 1 Previous ED Visit (6 mos.)? 1 Number of Previous ED Visits (6 mos.) 1 Insurance - Medicare 1 Discharge Disposition - Home 1 History of Anemia 1 Active Anticoagulant 1 Number of Hospitalizations (12 mos.) TIME OF CARE: Discharge Management: I personally spent greater than 30 minutes involved in the discharge management of this patient. SIGNATURE: Margie Khan APRN.CNP PAGER/CONTACT #: [phone] DATE: April 23, 2018 TIME: 9:23 AM CHEST 2 VIEWS Observed: 04/23/2018 Status: F Source: [facility] 7:55 AM HEALTH SYSTEM REPOSITORY Performed at [facility] APPROVED BY: Parish Ritchie MD EXAMINATION: CHEST RADIOGRAPH (2 VIEW FRONTAL & LATERAL) CLINICAL HISTORY: Recent mitral valve replacement. MQ: XC2_5 Comparison: Prior studies with the most recent performed 2 days ago. RESULT: Lines, tubes, and devices: Interval removal of a right IJ sheath and placement of a new right PICC line which terminates at the expected location of the cavoatrial junction. Lungs and pleura: Small bilateral pleural effusion, slightly larger on the left with adjacent compressive atelectasis. No obvious large pneumonia or pneumothorax. No congestion. Cardiomediastinal silhouette: Stable cardiac size. Other: There is an atrial clip. Intact sternotomy wires. No acute bony abnormality. IMPRESSION: Small bilateral pleural effusion with basilar atelectasis on the left. PROTIME Collected: 04/23/2018 Status: F Source: [facility] 6:59 AM HEALTH SYSTEM REPOSITORY TYPE CODE TESTS RESULT OUT OF REFERENCE UNITS RANGE LAB PTI(LOINC) 9.7-13.0 sec Prothrombin High Time 29.9 LAB INR(LOINC) 0.90-1.30 INR High 3.13 Result Comment: Note: Reference Range Change Vitamin K Antagonist (VKA) Therapeutic Range: INR 2 to 3 (Target INR of 2.5) Note: For patients treated with VKA drugs, such as warfarin, the [place] [employer] 2012 Guideline recommends a therapeutic INR range of 2 to 3 (target INR of 2.5). This recommendation includes high-risk patients with antiphospholipid syndrome with previous arterial or venous thromboembolism, current-generation mechanical or bioprosthetic aortic heart valve replacement. VKA Therapeutic Range for some Mechanical Valve Replacement: INR 2.5 to 3.5 (Target INR of 3) Note: Patients with mechanical aortic valve replacement and additional risk factors for thromboembolic events (atrial fibrillation, previous thromboembolism, LV dysfunction, hypercoagulable conditions) or an older generation mechanical AVR (i.e., ball in-Cage) or any mechanical MVR should have a INR therapeutic range of 2.5 to 3.5 target INR of 3). Nathanael PITTS, et al. Chest 2012; 141:7S-47S Marbella LAURA et al. [facility] 2017; 70: 252-289 Performed By: #### PT #### [facility] [address] [place] [id number] PROGRESS Observed: 04/22/2018 Status: COMPLETED Source: [place] 11:51 AM CLINIC OTHER CAMPUS REPOSITORY O ID: [id number] Author: Margie Khan Service: Cardiac Surgery Author Type: Nurse Practitioner Type: Progress Notes Filed: 04/22/2018 12:16 PM Note Text: CARDIOTHORACIC SURGERY POSTOP PROGRESS NOTE SERVICE DATE: 04/22/2018 SERVICE TIME: 11:51 AM Subjective S/P SURGERY: Procedure(s) (LRB): MVR 29-mm St. Zenon Epic bioprosthesis; maze procedure with left and right atrial lesion sets (radiofrequency clamp and cryo); LAAC with a 45 mm atrial clip. DATE OF SURGERY: 04/16/2018 POSTOP DAY #6 LOS: 6 HPI: This is a 77 year old female with PMH of moderately severe MR with moderate MS, rheumatic fever, Afib with RVR (new), TRISH (on Cpap) and IBS, who presented to ED with elevated INR (13), SOB and some chest discomfort/palpitation. Patient was?recently diagnosed with?A fib and was started on metoprolol and Coumadin by Dr. Perez's TUNNELLER on 03/16. Her HR was still high which her metoprolol dose was increased to 25 mg BID subsequently. Patient has been following Dr. Perez for her MR, MS with series of Echo studies and was scheduled to have L/R HC and MEERA done on 03/31 electively. She was advised to ED from coumadin clinic with elevated INR on Thursday. In ED, she was found to have HR of 140s- 150s, therefore, she received IV metoprolol and digoxin in addition to Vit K for the supra therapeutic INR. ?CXR found her to have bilateral pleural effusion with clinical symptom of SOB, so she was admitted for acute respiratory management with diuresis. During the interim, patient was found to have renal calculi on the left kidney, which subsequently resolved spontaneously without intervention. Consult to CTS is placed for Mitral valve evaluation. Patient denied chest pain, she does report some chest palpitation, mild shortness of breath with exertions and worsening of weakness, especially in her leg which was very debilitaing . Denied orthopnea or PND, no LH/DZ, syncope/presyncope or leg edema. Interval Events: 04/16/2018 Elective MVR with MAZE and LAAC. Post op ICU recovery complicated by anemia S/P PRBC x 1 unit. She was started on coumadin POD 1 per protocol. Amio as atrial fibrillation prophylaxis taper and continue 90 days as ordered. Objective Admission Weight: 64.4 kg (141 lb 15.6 oz) BP (!) 115/42 Pulse 74 Temp 36.6 ?C (97.9 ?F) (Oral) Resp 19 Ht 157.5 cm (5' 2.01) Wt 73.1 kg (161 lb 3.2 oz) SpO2 98% BMI 29.48 kg/m? Body surface area is 1.79 meters squared. Min/Max/Average Temperature AND Blood Pressure: Temp (24hrs), Av.8 ?C (98.3 ?F), Min:36.6 ?C (97.9 ?F), Max:37.1 ?C (98.8 ?F) Systolic (24hrs), Av , Min:100 , Max:159 Diastolic (24hrs), Av, Min:42, Max:114 Intake/Output Summary (Last 24 hours) at 04/22/18 1151 Last data filed at 04/21/18 1530 Gross per 24 hour Intake 0 ml Output 550 ml Net -550 ml TELEMETRY: normal sinus rhythm PHYSICAL EXAM: General Appearance: well developed and no distress Skin: Midsternal incision dry AND intact., warm, dry and ecchymosis noted MSI and CT Sites Lungs: clear and respiratory effort: normal Heart: S1, S2 normal, slight murmur noted Peripheral Vascular/Arteries: pulses intact Abdomen: soft, round, non-tender and bowel sounds present Neurologic/Psychiatric: oriented to time, place and person Extremities: normal exam of the extremities and edema: non-pitting Lines, Drains, and Airways Line Central Line Double Lumen 04/21/18 1400 Peripherally Inserted (PICC) Right Arm Through Introducer 5.0 Tanzanian less than 1 day DATA: Diagnostic tests reviewed for today's visit: Significant Lab Results: Below and added CBC and PT/INR Chest X-RAY: . ECHO: . Recent Labs 04/22/18 1117 04/22/18 0323 04/21/18 0545 04/20/18 0635 RBC 2.58* -- 1.95* -- WBC 6.51 -- 6.40 -- HB 7.9* -- 5.9* 6.3* HCT 24.5* -- 18.5* 19.2* PLT 195 -- 140* -- INR 3.36* -- 2.87* 4.17* NA -- 139 136 134* K -- 4.2 4.2 4.8 CHLOR -- 108* 107 107 CO2 -- 23 23 21 BUN -- 28* 38* 41* CREAT -- 0.89 1.03* 1.33* GLUC -- 90 93 98 CA -- 7.8* 8.1* 7.8* ANION -- 12 10 11 Assessment/Plan Symptomatic severe mitral stenosis -s/p MVR with a 29-mm St. Zenon bioprosthetic valve; POD#6 -EF 55% preop -Medical management with ASA 81 mg, Metoprolol 12.5 BID, -INR 3.36 - hold Coumadin today -Post op limited ECHO: EF 60%, Valve well seated without MR, P/M gradients valve 24 and 5 mmHg respectively ?? Paroxysmal atrial fibrillation -s/p maze procedure AND exclusion of OLGA with atrial clip; POD#6 -Remains in NSR -c/w?Amiodarone PO with taper schedule for 90 days see orders; hold Amio if HR <65 -Continue coumadin , see above -Keep K>4 and Mag >2 ? Therapeutic INR -INR 3.36 today -Pharmacy Warfarin Education -[facility] referral placed -Patient reports she had a supratherapeutic INR 13 during her last admission -Will require careful monitoring ? Anticipated acute pulmonary insufficiency s/p CTS -Room Air -IS and CANDDB, ambulation Volume overload -Weight +20 lbs 73/64 kg -Lasix 40mg BID - Watch BMP -K+ ? Hyperglycemia -HgbA1C 5.2 -c/w SSI -Not requiring coverage, will D/C in AM if not required today. ? Leukocytosis -Likely reactive -Trended down ? Anticipated acute blood loss anemia -Hgb 7.9 today s/p 1 unit PRBC -FeSO4 AND?ascorbic acid ? DIspo: Home with home health care likely 24-48 hour. She reports going to [place] to be near her sister for care the first 1-2 weeks. [facility] should follow her there. Will need PT/INR ordered for [facility] to perform on intake and [facility] referral at discharge. I will initiate prior to discharge. Tests/Labs Ordered: 1. Chest X-ray 2. CBC 3. PT/INR SIGNATURE: Margie Khan APRN.CNP PATIENT NAME: Gloria Mathew DATE: April 22, 2018 TIME: 11:51 AM PAGER/CONTACT #: [id number] ETX [id number] HEMOGRAM Collected: 04/22/2018 Status: F Source: [facility] 11:17 AM HEALTH SYSTEM REPOSITORY TYPE CODE TESTS RESULT OUT OF REFERENCE UNITS RANGE LAB WBC(LOINC) 3.98-10.04 thou/cmm WBC 6.51 LAB RBC(LOINC) 3.93-5.22 mil/cmm Low RBC 2.58 LAB HGB(LOINC) 11.2-15.7 g/dL Low Hgb 7.9 LAB HCT(LOINC) 34.1-44.9 % Low Hct 24.5 LAB MCV(LOINC) 79.4-94.8 fl MCV High 95.0 LAB MCH(LOINC) 25.6-32.2 pg MCH 30.6 LAB MCHC(LOINC 31.6-34.8 % ) MCHC 32.2 LAB RDW(LOINC) 11.7-14.4 % RDW High 15.4 LAB RDWSD(LOIN 36.4-46.3 fl C) RDW High SD 51.8 LAB PLT(LOINC) 182-369 thou/cmm Platelet 195 LAB MPV(LOINC) 9.4-12.3 fl MPV 9.6 LAB NRBCR(LOIN 0.0-0.2 % C) High Nucleated RBC % 2.2 LAB NRBCA(LOIN 0.00-0.01 thou/cmm C) High Nucleated RBC 0.14 Absolute Performed By: #### CBC1 #### [place] [id number] PROTIME Collected: 04/22/2018 Status: F Source: [facility] 11:17 AM HEALTH SYSTEM REPOSITORY TYPE CODE TESTS RESULT OUT OF REFERENCE UNITS RANGE LAB PTI(LOINC) 9.7-13.0 sec Prothrombin High Time 31.9 LAB INR(LOINC) 0.90-1.30 INR High 3.36 Result Comment: Note: Reference Range Change Vitamin K Antagonist (VKA) Therapeutic Range: INR 2 to 3 (Target INR of 2.5) Note: For patients treated with VKA drugs, such as warfarin, the [place] [employer] 2012 Guideline recommends a therapeutic INR range of 2 to 3 (target INR of 2.5). This recommendation includes high-risk patients with antiphospholipid syndrome with previous arterial or venous thromboembolism, current-generation mechanical or bioprosthetic aortic heart valve replacement. VKA Therapeutic Range for some Mechanical Valve Replacement: INR 2.5 to 3.5 (Target INR of 3) Note: Patients with mechanical aortic valve replacement and additional risk factors for thromboembolic events (atrial fibrillation, previous thromboembolism, LV dysfunction, hypercoagulable conditions) or an older generation mechanical AVR (i.e., ball in-Cage) or any mechanical MVR should have a INR therapeutic range of 2.5 to 3.5 target INR of 3). Nathanael GH, et al. Chest 2012; 141:7S-47S Marbella RA, et al. JACC 2017; 70: 252-289 Performed By: #### PT #### [place] [id number] PROGRESS Observed: 04/22/2018 Status: COMPLETED Source: [place] 11:01 AM CLINIC OTHER CAMPUS REPOSITORY HNO ID: [id number] Author: Della Mendieta Service: Pulmonary Disease Author Type: Nurse Practitioner Type: Progress Notes Filed: 04/22/2018 11:16 AM Note Text: Attestation signed by Ciro Tanner at 04/22/2018 11:22 AM [facility] STAFF PHYSICIAN NOTE OF PERSONAL INVOLVEMENT IN CARE I have reviewed the progress note obtained and documented by the nurse practitioner and I personally participated in the rg components. I have personally examined the patient, reviewed all pertinent labs and imaging, as well as discussed the case and management of the patient's care with the nurse practitioner . The following comments revise or confirm relevant rg components of the note. ? Patient feeling ok today ? ? ? PHYSICAL EXAM PERFORMED: BP (!) 115/42 Pulse 74 Temp 36.6 ?C (97.9 ?F) (Oral) Resp 19 Ht 157.5 cm (5' 2.01) Wt 73.1 kg (161 lb 3.2 oz) SpO2 98% BMI 29.48 kg/m? ? General: AAOx3, no distress Resp: clear breath sounds bilaterally, no wheezing, rhonchi, or crackles noted CV: RRR, no MGR noted Abd: soft, NT, ND, +BS, no guarding noted Ext: no pedal edema noted, warm to touch, no cyanosis, non- tender, appropriate cap ? ? Recent imaging reviewed independently Recent removal of support lines. ?Improving left basilar effusion and atelectasis ? IMPRESSION: Acute anticipated post op respiratory insufficiency Left lower lobe atelectasis Left pleual effusion likely post op S/p MVR/Maze procedure and LA appendage ligation pod 6 Afib Acute blood loss anemia post op ? PLAN: IS q 1hr while awake Encouraged mobilization Gentle diueresis Follow up CXR Follow up Hb/ht, transfuse to a goal >7 AC per CTS ? [facility] SIGNATURE: Ciro Tanner MD PATIENT NAME: Gloria Mathew DATE: April 22, 2018 TIME: 10:31 AM ? PULMONARY/CCM PROGRESS NOTE [facility]AG SERVICE DATE: April 22, 2018 SERVICE TIME: 11:01 AM Subjective Objective CURRENT MEDICATIONS Current Facility-Administered Medications: acetaminophen 650 mg tab(s) (TYLENOL) 650 mg ORAL q 6 H PRN Yue Ramachandran) Ruhlin 650 mg at 04/17/18 0040 albuterol 2.5 mg /3 mL (0.083 %) 2.5 mg (PROVENTIL) 2.5 mg INHALATION q 2 H PRN Yue Ramachandran) Ruhlin 2.5 mg at 04/18/18 1304 amiodarone 200 mg tab(s) (PACERONE) 200 mg ORAL BID Josefina Lamb) Hardy 200 mg at 04/22/18 0839 [START ON 04/27/2018] amiodarone 200 mg tab(s) (PACERONE) 200 mg ORAL DAILY Gui Devin De Los Santos ascorbic acid (vitamin C) 500 mg tab(s) (VITAMIN C) 500 mg ORAL DAILY Gui Mccallrra 500 mg at 04/22/18 0838 aspirin 162 mg chewable tab(s) 162 mg ORAL DAILY Yue Murillo (Pa)in 162 mg at 04/22/18 0839 atorvastatin 10 mg tab(s) (LIPITOR) 10 mg ORAL AT BEDTIME Josefina Lamb) Hardy 10 mg at 04/21/182105 bisacodyl 10 mg suppository (DULCOLAX) 10 mg RECTAL DAILY PRN Nova (Pa) Rumiguelinain dextrose 40 % 15 g 15 g ORAL PRN Josefina (Tmo) Hardy Or glucagon 1 mg injection (GLUCAGEN) 1 mg INTRAMUSCULAR PRN Josefina (Tom) Hardy Or dextrose 50% in water 25 mL syringe 12.5 g INTRAVENOUS PRN Josefina (Tom) Hardy ferrous sulfate 325 mg tab(s) 325 mg ORAL BID w MEALS Gui Beltran [place] 325 mg at 04/22/18 0839 gabapentin 200 mg cap(s) (NEURONTIN) 200 mg ORAL AT BEDTIME Josefina Lamb) Hardy 200 mg at 04/21/182105 insulin lispro pen (rapid acting) (HumaLOG KWIKPEN) SUBCUTANEOUS w MEALS AND HS Josefina Lamb) Hardy 1 Units at 12/19/18 2115 melatonin 3 mg tab(s) 3 mg ORAL HS PRN Yue Ramachandran) Rumiguelinain metoprolol tartrate (short acting) 12.5 mg tab(s) (LOPRESSOR) 12.5 mg ORAL q 12 H Josefina Santos Hardy 12.5 mg at 04/22/18 0839 morphine 2 mg injection 2 mg INTRAVENOUS q 4 H PRN Yue Ramachandran) Ruhlin NaCl 0.9% 10 mL 10 mL INTRAVENOUS q 12 H Josefina Lamb) Hardy 10 mL at 04/22/18 0839 NaCl 0.9% 2-10 mL 2-10 mL INTRAVENOUS q 12 H Yue Ramachandran) Ruhlin 10 mL at 04/22/18 0900 NaCl 0.9% 20 mL 20 mL INTRAVENOUS PRN Josefina Lamb) Hardy ondansetron (PF) 4 mg injection (ZOFRAN) 4 mg INTRAVENOUS q 6 H PRN Yue Ramachnadran) Rumiguelinain 4 mg at 04/18/18 0646 oxyCODONE-acetaminophen 5-325 mg 1-2 tablet (PERCOCET) 1-2 tablet ORAL q 4 H PRN Yue Ramachandran) Ruhlin 1 tablet at 04/22/[address] 40 mg tab(s) (PROTONIX) 40 mg ORAL DAILY (6 AM) Josefina Lamb) Hardy 40 mg at 04/22/18 0312 perflutren lipid microspheres 1.1 mg/mL 1.3 mL injection (DEFINITY) 1.3 mL INTRAVENOUS DIRECTED PRN Josefina Goodman pill splitter (patient-specific) 1 Each Miscell. (Med.Supl.;Non- Drugs) PRN Josefina Lamb) Hardy polyethylene glycol 3350 17 g packet (MIRALAX, GLYCOLAX) 17 g ORAL DAILY Yue Ramachandran) Ruhlin 17 g at 04/18/18 0855 pramipexole 0.25 mg tab(s) (MIRAPEX) 0.25 mg ORAL AT BEDTIME Josefina Goodman 0.25 mg at 04/21/18 211 senna-docusate 8.6-50 mg 1 tablet (SENNA-S) 1 tablet ORAL BID Yue Ramachandran) Rumiguelinain 1 tablet at 04/21/18 210 warfarin dose per INR - Call physician daily for dose ORAL DAILY - WARFARIN Josefina Lamb) Hardy Intake/Output Summary (Last 24 hours) at 04/22/18 1101 Last data filed at 04/21/18 1530 Gross per 24 hour Intake 0 ml Output 800 ml Net -800 ml NEW LABS/MICRO DATA/RADIOLOGY FILMS BMP: Glucose (mg/dL) Date Value 04/22/2018 90 Potassium (mEq/L) Date Value 04/22/2018 4.2 Sodium (mEq/L) Date Value 04/22/2018 139 Chloride (mEq/L) Date Value 04/22/2018 108 CO2 (mEq/L) Date Value 04/22/2018 23 Creatinine (mg/dL) Date Value 04/22/2018 0.89 BUN (mg/dL) Date Value 04/22/2018 28 Anion Gap (no units) Date Value 04/22/2018 12 Calcium (mg/dL) Date Value 04/22/2018 7.8 CBC: HGB (g/dL) Date Value 04/21/2018 5.9 04/20/2018 6.3 04/19/2018 6.6 Hematocrit (%) Date Value 04/21/2018 18.5 04/20/2018 19.2 04/19/2018 20.2 WBC (thou/cmm) Date Value 04/21/2018 6.40 04/19/2018 13.87 04/18/2018 16.29 CXR 04/16/18 Small left pleural effusion. ?Advancement of the esophagogastric tube tip by a few ?centimeters is recommended. CXR 04/17/18 Developing lower lung zone atelectasis after removal of ETT and NGT. CXR 04/18/18 Bibasilar atelectasis. ?Small left pleural effusion.. CXR 04/21/18 Recent removal of support lines. ?Improving left basilar effusion and atelectasis. ECHOCARDIOGRAM 04/19/18 CONCLUSIONS: - Technically difficult exam due to post op and suboptimal positioning. - Exam indication: Initial postoperative evaluation of prosthetic valve (baseline) - Left ventricular systolic function is normal. EF = 60 ? 5% (visual est.) Postoperative septal wall motion seen. - Post mitral valve replacement. ST. ZENON EPIC prosthetic mitral valve (size #29). ?There is no mitral valve regurgitation. The peak and mean gradients across the valve are 24 and 5 mmHg respectively, at a heart rate of 59 bpm. the valve appears ?to be well-seated without perivalvular regurgitation. - There is no pericardial effusion. - Exam was compared with the prior echocardiographic exam performed on 04/16/2018 04/21/18 2335 04/22/18 0313 04/22/18 0600 04/22/18 0833 BP: (!) 132/42 100/58 (!) 115/42 Pulse: 63 65 74 Resp: Temp: 36.9 ?C (98.4 ?F) 36.7 ?C (98.1 ?F) 36.6 ?C (97.9 ?F) TempSrc: Oral Oral Oral SpO2: 94% 97% 98% Weight: 73.1 kg (161 lb 3.2 oz) Height: PHYSICAL EXAM: VITALS: as above, reviewed. On room air GENERAL: AAOx3, pale, pleasant, resting in bed, NAD RESPIRATORY: CTA with minimal bibasilar crackles, even/unlabored respirations at rest. No accessory muscle use, no pursed lip breathing, no wheezing, no conversational dyspnea. On RA CARDIOVASCULAR: Normal S1S2, RRR. No edema. Midsternal incision healing, c/d/I. GI: Abdomen soft, nondistended, nontender, bowel sounds present x4 EXTREMITIES: No clubbing or cyanosis. MAEx4. RUE PICC c/d/i ASSESSMENT AND PLAN: 1) Anticipated Postoperative Respiratory Insufficiency - improved/resolved, stable on room air. Ok to keep sats >90%. Increase activity as tolerated. Continue with Albuterol PRN. Encourage IS Q1H. Diurese PRN. Check ambulatory pulse oximetry. 2) Severe Mitral Valve Stenosis - s/p MVR with 29-mm St. Zenon Bioprosthetic Valve- POD #6 - management per CTS. Continue with ASA. Continue with Warfarin with goal INR 2.5-3.5, INR today 2.87. Continue with pain control. 3) Paroxysmal Atrial Fibrillation - s/p MAZE and Ligation of LA Appendage, POD #6 - management per CTS. Remains in NSR. Continue with Amiodarone. Monitor electrolytes. Warfarin as above. 4) Anticipated Acute Blood Loss Anemia - s/p 1 unit PRBCs 04/21/ - repeat H/H this am. May need another transfusion if Hgb continues to drop. Defer management to primary team. Continue with Iron. 5) Full Code 6) No new pulmonary/critical care recommendations. Stable out of CVICU. Will sign off. Please call with questions or if patient's condition deteriorates. SIGNATURE: Della Mendieta APRN.TOM PATIENT NAME: Gloria Mathew DATE: April 22, 2018 TIME: 11:01 AM PAGER/CONTACT #: [phone] MDRD GFR Collected: 04/22/2018 Status: F Source: [facility] 3:23 AM HEALTH SYSTEM REPOSITORY TYPE CODE TESTS RESULT OUT OF RANGE REFERENCE UNITS LAB GFRFN(LOINC >60mL/min/1.73m ) 2 eGFR >60 Result Comment: If the patient is , multiply the result by 1.210. Performed By: #### GFR #### [facility] [address] [address] BASIC PANEL Collected: 04/22/2018 Status: F Source: [facility] 3:23 AM HEALTH SYSTEM REPOSITORY TYPE CODE TESTS RESULT OUT OF REFERENCE UNITS RANGE LAB NA(LOINC) 136-145 mEq/L Sodium Blood 139 LAB K(LOINC) 3.5-5.1 mEq/L Potassium Blood 4.2 LAB CL(LOINC) 98-107 mEq/L Chloride High Blood 108 LAB CO2(LOINC) 21-32 mEq/L CO2 Blood 23 LAB GLU(LOINC) 70-99 mg/dL Glucose Blood 90 LAB BUN(LOINC) 7-18 mg/dL BUN High Blood 28 LAB CREA(LOINC 0.51-0.95 mg/dL ) Creatinine Blood 0.89 LAB CA(LOINC) 8.5-10.1 mg/dL Low Calcium Blood 7.8 LAB ANGAP(LOIN 8-16 C) Anion Gap 12 Performed By: #### P8 #### [facility] [address] [address] ALLIED HEALTH Observed: 04/21/2018 Status: COMPLETED Source: [place] 6:06 PM [facility] OTHER [place] REPOSITORY HNO ID: [id number] Author: Collin Mendez (Ex Phys) Service: Cardiovascular Testing Author Type: Marketing Operations Coordinator Type: Allied Health Filed: 04/21/2018 6:08 PM Note Text: CARDIAC REHABILITATION PATIENT EDUCATION PROGRESS NOTE Name: Gloria Mathew Date of Service: 04/21/18 Time of Service: 6:06 PM ASSESSMENT: Risk Factors Identified: Age Family History RECOMMENDATIONS: Patient interested in Phase II Outpatient Cardiac Rehab: Yes. Facility Preferred: [place] DIAGNOSIS: Open Heart Surgery: VALVE Open Heart Surgery Teaching Points: -Basic Anatomy and Disease Process -Personal Modifiable Risk Factor Identification -Activity/Physical Exercise Recommendations -Angina/Heart Attack warning signs and symptoms -When patient should call provider -Emergency planning: Symptom recognition, Stop activity, Rest, Nitroglycerine use, Pulse check, Call 911 -Outpatient Cardiac Rehabilitation -Personal risk factors: Age and Family History READINESS TO LEARN: Cognitive Ability: Alert and Oriented Motivation to Learn: Eager Family Support: None - Unavailable/disinterested Instruction Provided To: Patient Patient Learns Best By: Individual Instruction, Written Instruction - Hand-outs and Verbal Instruction Factors Affecting Learning: None Physical Limitations Affecting Learning: None LEARNING RESPONSE: Method Of Instruction: Individual instruction Written instruction - handouts Verbal instruction Patient/Family Response: Verbalizes understanding of: cad risk factors, surgical binder, cardiac rehab Follow-up Plan: No further educational needs identified at this time. Instructional Aids Used: Anatomical Model/Drawing Cardiac Rehabilitation Brochure Signature: Tina Campoverde Pager: [phone] Date: April 21, 2018 Time: 6:06 PM PROCEDURE Observed: 04/21/2018 Status: COMPLETED Source: [place] 4:35 PM [facility] OTHER [place] REPOSITORY HNO ID: [id number] Author: Yue Byrd (Pa) Service: Cardiac Surgery Author Type: Physician Information Tech Type: Procedures Filed: 04/21/2018 4:39 PM Note Text: BEDSIDE PROCEDURE NOTE Removal of Epicardial Pacing Wires Date/Start Time: 04/21/2018 4:35 PM Performed by: YUE BYRD) Authorized by: YUE BYRD (DIANE) Pre-procedure Details: Personnel directly involved with the procedure wore the appropriate PPE. The area was prepped with chlorhexidine (Chloroprep) and allowed to dry. Medications: N/A Procedure Details: Atrial wires cut, and ventricular wires were removed with tips intact without resistance. New dry, sterile dressing applied over chest tube incisions. Assisting Clinician(s): Carolyn Goodman CNP Post-procedure Details: Patient tolerated the procedure well with no immediate complications Estimated Blood Loss: None Specimens Sent: None SIGNATURE: Yue Byrd PA-C PATIENT NAME: Gloria Mathew DATE: April 21, 2018 TIME: 4:35 PM PAGER/CONTACT #: [phone] CASE MANAGEM Observed: 04/21/2018 Status: COMPLETED Source: [place] 4:10 PM [facility] REPOSITORY HNO ID: [id number] Author: Fiona Adams RN Service: Care Management Author Type: Registered Nurse Type: Care Mgt Progress Note Filed: 04/21/2018 4:14 PM Note Text: CARE MANAGEMENT PROGRESS NOTE SERVICE DATE: 04/21/2018 SERVICE TIME: 4:11 PM LOS: 5 days Needs Prior to Discharge: Home Care Order S/p valve POD3. Plan is home with family and VNS. SIGNATURE: Fiona Adams RN PATIENT NAME: Gloria Mathew DATE: April 21, 2018 TIME: 4:11 PM PAGER/CONTACT #: [phone] NUTRITION Observed: 04/21/2018 Status: COMPLETED Source: [place] 2:54 PM [facility] REPOSITORY HNO ID: [id number] Author: Arlene Giron RD Service: Nutrition Therapy Author Type: Registered Dietitian Type: Nutrition Filed: 04/21/2018 3:32 PM Note Text: NUTRITION THERAPY INITIAL ASSESSMENT SERVICE DATE: 04/21/2018 SERVICE TIME: 2:55 PM RECOMMENDED MALNUTRITION DIAGNOSIS: MILD PROTEIN-CALORIE MALNUTRITION In the context of Acute Illness or Injury based on: Insufficient Energy Intake: Less than or equal to 50% for greater than or equal to 5 days NUTRITION CARE PLAN: Problem, Etiology and Signs/Symptoms: Increased nutrient needs kcal/protein related to increased metabolic demand from surgery as evidenced by surgery 04/16/18 Intervention: Continue on Heart Healthy Diet Added Ensure Enlive daily to provide 350 kcal and 20 gm protein Coordination of Care: Nursing Monitor and Evaluation: Goal: Meet >75% of estimated needs Monitor fluid/electrolyte balance Monitor labs, I/Os, vital signs, weight Discharge Nutrition Recommendations: Diet: Heart Healthy Supplements: Ensure enlive daily Chart reviewed for length of stay Per HPI: 77 yo female /p full maze and MVR on 04/16/18. PICC line placed on 04/21/18. Blood transfusion on 04/21/18 for acute post- op blood loss anemia. ACTIVE PROBLEM LIST Apocrine Metaplasia of Breast Mitral Valve Stenosis Mitral Valve Regurgitation Paroxysmal Atrial Fibrillation (Hcc) Retirement (Current) Use of Anticoagulants FPC current use of 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 [Z79.01] A-Fib (Hcc) S/P Mitral Valve Replacement With Bioprosthetic Valve S/P Maze Operation for Atrial Fibrillation Hypotension S/P Left Atrial Appendage Ligation Stress Hyperglycemia Anemia Associated With Acute Blood Loss Leukocytosis PAST MEDICAL HISTORY Diagnosis Date - Breast mass, right - IBS (irritable bowel syndrome) - Mitral valve regurgitation - Mitral valve stenosis - Pulmonary HTN (HCC) - Tricuspid regurgitation PAST SURGICAL HISTORY Procedure Laterality Date - BREAST BIOPSY - CHOLECYSTECTOMY HX 10/02/2011 - HYSTERECTOMY HX MARYELLEN/BLO - LEG SURGERY HX - PICC LINE INSERTION (PICC TEAM) (AK) 04/21/2018 Social History Marital status: Spouse name: Years of education: Number of children: Social History Main Topics Smoking status: Never Smoker Smokeless tobacco: Never Used Alcohol use: No Drug use: No Other Topics Concern Caffeine Concern No Special Diet No Comment:average Exercise No Comment:sedentary Nutritional Intake During Admission: <75% estimated energy needs over the past 5 day(s) with decreased po intake during admission Sleeping during RD visit first RD visit. RN reports fair po post-op and loose BM from IBS. Current Diet Order DIET HEART HEALTHY Order Specific Question: Heart Healthy Answer: 2 GM SODIUM (<200 MG CHOL / LOW SAT FAT) Lines and Drains: Central Line Double Lumen 04/21/18 1400 Peripherally Inserted (PICC) Right Arm Through Introducer 5.0 Tanzanian (Active) Central Line Quadruple Lumen 04/16/18 0838 Non-tunneled Right Neck (Active) Indwelling Urinary Catheter 04/19/18 0700 Straight Cath (Active) GI symptoms: diarrhea, chronic IBS Nutrition Abdominal Exam:, abdomen is soft and nondistended and bowel sounds are hyperactive ANTHROPOMETRICS Height: 157.5 cm (5' 2.01) Admission Weight: 64.4 kg (141 lb 15.6 oz) Current Weight: 74.2 kg (163 lb 9.3 oz) Body mass index is 29.91 kg/m?. overweight Weight has not changed significantly over the past 9 months Noted weight gain with surgery and generalized edema present Last Wt 04/20/18 : 74.2 kg (163 lb 9.3 oz) 04/16/18 : 67.7 kg (149 lb 4 oz, bed scale 04/09/18 : 64.4 kg (142 lb), office visit 04/02/18 : 64.9 kg (143 lb 1.3 oz) 04/01/18 : 63.6 kg (140 lb 3.4 oz), standing weight 03/30/18 : 64 kg (141 lb), standing 03/24/18 : 68 kg (150 lb), stated weight 03/16/18 : 68.2 kg (150 lb 6.4 oz), office visit 07/13/17 : 67.6 kg (149 lb), office visit - 9 months 07/05/17 : 68 kg (150 lb) 07/11/15 : 70.3 kg (155 lb) 07/06/15 : 70.3 kg (155 lb) [place] Body Weight: 50.1kg Dosing Weight: 74.2 kg Resting Metabolic Rate: 1195 Estimated kilocalorie needs: 3255-8450 kilocalories determined by 25-30 kcal/kg Estimated protein needs: 75-100 grams determined by 1.5-2.0 g/kg [place] weight Estimated fluid needs: 8631-9025 milliliters based on 1 mL per kcal NUTRITION FOCUSED PHYSICAL EXAM: Unable to perform exam due to patient/family declined, will re-attempt during reassessment. Temperature Max in 24 hours: Temp (24hrs), Av.6 ?C (97.8 ?F), Min:36.3 ?C (97.3 ?F), Max:36.7 ?C (98.1 ?F) BP 132/51 Pulse (!) 57 Temp 36.7 ?C (98.1 ?F) Resp 23 Ht 157.5 cm (5' 2.01) Wt 74.2 kg (163 lb 9.3 oz) SpO2 95% BMI 29.91 kg/m? Recent Labs 04/21/18 0545 GLUC 93 BUN 38* CREAT 1.03* NA 136 K 4.2 CHLOR 107 CO2 23 HB 5.9* HCT 18.5* WBC 6.40 Potential Signs of Inflammation: acute post-operative and chronic condition ALLERGIES No Known Allergies Current Facility-Administered Medications: acetaminophen 650 mg tab(s) (TYLENOL) 650 mg ORAL q 6 H PRN albuterol 2.5 mg /3 mL (0.083 %) 2.5 mg (PROVENTIL) 2.5 mg INHALATION q 2 H PRN amiodarone 200 mg tab(s) (PACERONE) 200 mg ORAL TID ascorbic acid (vitamin C) 500 mg tab(s) (VITAMIN C) 500 mg ORAL DAILY aspirin 162 mg chewable tab(s) 162 mg ORAL DAILY atorvastatin 10 mg tab(s) (LIPITOR) 10 mg ORAL AT BEDTIME bisacodyl 10 mg suppository (DULCOLAX) 10 mg RECTAL DAILY PRN dextrose 40 % 15 g 15 g ORAL PRN Or glucagon 1 mg injection (GLUCAGEN) 1 mg INTRAMUSCULAR PRN Or dextrose 50% in water 25 mL syringe 12.5 g INTRAVENOUS PRN ferrous sulfate 325 mg tab(s) 325 mg ORAL BID w MEALS furosemide 20 mg injection (LASIX) 20 mg INTRAVENOUS ONCE gabapentin 200 mg cap(s) (NEURONTIN) 200 mg ORAL AT BEDTIME insulin lispro pen (rapid acting) (HumaLOG KWIKPEN) SUBCUTANEOUS w MEALS AND HS lidocaine 10 mg/mL (1 %) 10-20 mg injection (XYLOCAINE) 1- 2 mL INTRADERMAL ONCE magnesium sulfate in water 2 g in sterile water 50 ml 2 g INTRAVENOUS PRN(NO DISPENSE) metoprolol tartrate (short acting) 12.5 mg tab(s) (LOPRESSOR) 12.5 mg ORAL q 12 H morphine 2-4 mg injection 2-4 mg INTRAVENOUS q 3 H PRN NaCl 0.9% 10 mL 10 mL INTRAVENOUS q 12 H NaCl 0.9% 20 mL 20 mL INTRAVENOUS PRN ondansetron (PF) 4 mg injection (ZOFRAN) 4 mg INTRAVENOUS q 6 H PRN oxyCODONE-acetaminophen 5-325 mg 1-2 tablet (PERCOCET) 1-2 tablet ORAL q [address] 40 mg tab(s) (PROTONIX) 40 mg ORAL DAILY (6 AM) perflutren lipid microspheres 1.1 mg/mL 1.3 mL injection (DEFINITY) 1.3 mL INTRAVENOUS DIRECTED PRN pill splitter (patient-specific) 1 Each Miscell. (Med.Supl.;Non- Drugs) PRN polyethylene glycol 3350 17 g packet (MIRALAX, GLYCOLAX) 17 g ORAL DAILY potassium chloride iv piggyback 20 mEq/100 mL 20 mEq INTRAVENOUS PRN pramipexole 0.25 mg tab(s) (MIRAPEX) 0.25 mg ORAL AT BEDTIME senna-docusate 8.6-50 mg 1 tablet (SENNA-S) 1 tablet ORAL BID warfarin 0.5 mg tab(s) (COUMADIN) 0.5 mg ORAL ONCE - WARFARIN warfarin dose per INR - Call physician daily for dose ORAL DAILY - WARFARIN Date 04/20/18 1500 - 04/21/18 0659 04/21/18 0700 - 04/22/18 0659 Shift 2952-2381 6465-2237 24 Hour Total 7700-6296 5124-3663 1799-0898 24 Hour Total I N T A K E PO 120 480 180 180 PO 120 480 180 180 Shift Total 120 480 180 180 O U T P U T Urine 390 187 4589 175 175 Void (ml) 360 834 6301 175 175 # of BMs Number of BMs 2 x 2 x 5 x 1 x 1 x Shift Total 763 754 9366 175 175 Weight (kg) 74.2 74.2 74.2 74.2 74.2 74.2 74.2 Surgical Incision 04/16/18 Chest - Midsternal (Active) Dressing Status None: Open to Air 04/21/2018 8:00 AM Incision Closures Topical Skin Adhesive 04/21/2018 8:00 AM Drainage Description None 04/21/2018 8:00 AM Drainage Amount None 04/21/2018 8:00 AM Edges Intact 04/21/2018 8:00 AM Hematoma No 04/21/2018 8:00 AM Number of days: 5 Vitamin and Mineral Labs in the past year: Recent Labs 10/01/17 1516 B12 404 TIBC 381 FE 72 JOHNIE 125.80 MNT Billing Type: Initial Assess/15 min 3 units SIGNATURE: Arlene Giron RD, JORDI PATIENT NAME: Gloria Mathew DATE: April 21, 2018 TIME: 3:27 PM PAGER: [phone] PROCEDURE Observed: 04/21/2018 Status: COMPLETED Source: [place] 2:39 PM CLINIC OTHER CAMPUS REPOSITORY HNO ID: [id number] Author: Yanet QuinterosRn) MARCELLA Sánchez Service: PICC Team Author Type: Registered Nurse Type: Procedures Filed: 04/21/2018 2:47 PM Note Text: PICC NURSE INSERTION NOTE DATE OF PROCEDURE: April 21, 2018 TIME OF PROCEDURE: 134 ORDERING PHYSICIAN: hardy INFORMED CONSENT: Obtained per hospital policy. NDICATION FOR LINE PLACEMENT: Incompatible drugs/need more lines available IV therapy over six days Poor veins/circulatory system CONDITION OF LINE PLACEMENT: Sterile PRIMARY PROCEDURALIST: Yanet Sánchez RN,CR,[facility] BOARDMARKER: Dhruv NARANJO PRE-PROCEDURE REVIEW ALLERGIES No Known Allergies Known History of Venous Thrombosis: No Known History of Permanent Pacemaker or Automated Implanted Cardiac Device: No Previous Breast Surgery of Lymph Node Dissection: No History of Renal Disease with Arterio-Venous Fistula in Place or Planned: No Ultrasound Assessment Complete: Yes PROCEDURE NARRATIVE SAFE PRACTICE Hand Hygiene per Hospital Policy: Yes Skin Preparation Unit Dose Applicator Used: Chloraprep (CHG + alcohol), allowed to dry. Procedure Surface Cleansed with Antimicrobial Wipes: Yes Barriers Used by Proceduralist and all Assisting Personnel: Yes UNIVERSAL PROTOCOL / SAFETY CHECKLIST Procedure to be performed: picc Sign in Communication: Completed Time Out: Team Confirms the Correct Patient, Correct Procedure, Correct Site and Site Marking, Correct Position (if applicable), Prep and Dry Time (if applicable). Time: 1345 Affirmation of Time Out: N/A Sign Out Discussion: Completed Yanet Sánchez RN CATHETER PLACEMENT Brand: bard Lot: [id number] Number of Lumens: 2 Type of PICC: Power Injectable PICC Lumen Size: 5 Tanzanian PLACEMENT TECHNIQUE Lidocaine: Yes. Strength: 1% Volume 0.5cc Modified Seldinger Technique Used to Place Line via the Right Basilic Ultrasound Guidance: Yes Number of Attempts at Insertion: 1 Ensured control of guidewire during all aspects of the procedure: Yes Accounted for entire guidewire upon removal: Yes Internal Length: 40 cm External Length: 1 cm Trim Length: 41 cm Mid-Arm Circumference Above Insertion Site: 28 centimeters Post Insertion Pain Level Related to Procedure: 0 Action Taken to Address Pain: None needed Verified Placement: Blood return, Ultrasound and Tip location system or device indicates the tip is located in the SVC/CAJ. Line was Flushed with 20 cc normal saline Line Secured with: Securement device,statlock Sterile Dressing Applied and Dated: Yes Sterile Caps on all Ports Prior to Leaving Procedure Area: Yes SPECIMENS: None COMPLICATIONS: None Patient Education Materials: Placed in chart All aspects of CDC bundle observed for PICC insertion. QUESTIONS or PROBLEMS: Call [phone] SIGNATURE: Yanet Sánchez RN PATIENT NAME: Gloria Mathew DATE: April 21, 2018 TIME: 2:40 PM PAGER/CONTACT PHONE: PT ED Observed: 04/21/2018 Status: COMPLETED Source: [place] 2:39 PM [facility] REPOSITORY HNO ID: [id number] Author: Gloria QuinterosRn) MARCELLA Henley Service: PICC Team Author Type: Registered Nurse Type: Patient Education Filed: 04/21/2018 2:42 PM Note Text: AMBULATORY PATIENT EDUCATION VASCULAR ACCESS TEAM TOPIC: Peripherally Inserted Central Catheter READINESS TO LEARN COGNITIVE ABILITY: Alert and oriented MOTIVATION TO LEARN: Eager FAMILY SUPPORT: Unable to assess - Family not present INSTRUCTION PROVIDED TO: Patient PATIENT LEARNS BEST BY: Individual Instruction FACTORS AFFECTING LEARNING:None PHYSICAL LIMITATIONS AFFECTING LEARNING: None LEARNING RESPONSE METHOD OF INSTRUCTION: Individual instruction PATIENT / FAMILY RESPONSE: Verbalizes understanding of pre-procedure instructions Verbalizes understanding of post-procedure instructions FOLLOW-UP PLAN: Follow-up with Primary Care SUPPLEMENTAL MATERIAL: PICC Line brochure and [facility] General catheter-Associated Bloodstream Infection fact sheet PROGRESS Observed: 04/21/2018 Status: COMPLETED Source: [place] 1:36 PM CLINIC OTHER CAMPUS REPOSITORY [facility] ID: [id number] Author: Yue Byrd (Pa) Service: Cardiac Surgery Author Type: Physician Information Tech Type: Progress Notes Filed: 04/21/2018 5:12 PM Note Text: CARDIOTHORACIC SURGERY POSTOP PROGRESS NOTE SERVICE DATE: 04/21/2018 SERVICE TIME: 4:43 PM Subjective S/P SURGERY: Procedure(s) (LRB): REPLACEMENT MITRAL VALVE W/ CARDIOPULMONARY BYPASS (N/A) FULL MAZE DONE W/ VALVE REPLACEMENT W/ CP-BYPASS (N/A) DATE OF SURGERY: 04/16/2018 POSTOP DAY #5 LOS: 5 INTERVAL EVENTS / PERTINENT ROS: Patient seen and examined. No acute events reported overnight. Objective Admission Weight: 64.4 kg (141 lb 15.6 oz) BP 132/51 Pulse (!) 57 Temp 36.7 ?C (98.1 ?F) Resp 23 Ht 157.5 cm (5' 2.01) Wt 74.2 kg (163 lb 9.3 oz) SpO2 95% BMI 29.91 kg/m? Body surface area is 1.8 meters squared. Min/Max/Average Temperature AND Blood Pressure: Temp (24hrs), Av.5 ?C (97.7 ?F), Min:36.3 ?C (97.3 ?F), Max:36.7 ?C (98.1 ?F) Systolic (24hrs), Av , Min:118 , Max:185 Diastolic (24hrs), Av, Min:25, Max:110 Intake/Output Summary (Last 24 hours) at 04/21/18 1348 Last data filed at 04/21/18 0830 Gross per 24 hour Intake 300 ml Output 1050 ml Net -750 ml TELEMETRY: NSR PHYSICAL EXAM: General Appearance: Pt in bed NAD Skin: Generalized pallor noted. Midsternal incision dry AND intact. and surgical incisions where removed chest tubes were with moderate snaguineous drainage. Head/Eyes: EOM's intact Neck: no JVD Lungs: clear and respiratory effort: normal Heart: regular rhythm and pacing wires present Peripheral Vascular/Arteries: radial 2+ Abdomen: soft, non-tender and bowel sounds present Neurologic/Psychiatric: NFD Extremities: no edema Lines, Drains, and Airways Line Central Line Quadruple Lumen 04/16/18 0838 Non-tunneled Right Neck 5 days Drain Indwelling Urinary Catheter 04/19/18 0700 Straight Cath 2 days DATA: Diagnostic tests reviewed for today's visit: CXR: Improving left basilar effusion and atelectasis. Recent Labs 04/21/18 0545 04/20/18 0635 04/19/18 1655 04/19/18 0350 RBC 1.95* -- -- 2.16* WBC 6.40 -- -- 13.87* HB 5.9* 6.3* -- 6.6* HCT 18.5* 19.2* -- 20.2* PLT 140* -- -- 111* INR 2.87* 4.17* -- 4.64* NA 136 134* 133* 134* K 4.2 4.8 4.7 4.7 CHLOR 107 107 108* 109* CO2 23 21 19* 18* BUN 38* 41* 37* 32* CREAT 1.03* 1.33* 1.40* 1.47* GLUC 93 98 122* 128* CA 8.1* 7.8* 7.5* 7.5* ANION 10 11 11 12 Assessment/Plan Symptomatic severe mitral stenosis -s/p MVR with a 29-mm St. Zenon bioprosthetic valve; POD#5 -EF 55% preop -Medical management with ASA 162 mg, Coumadin 0.5 mg INR 2.87 (error (MTR) -Limited ECHO completed on 12/ -EF 60% -Valve well seated without MR. Peak and mean gradients across valve 24 and 5 mmHg respectively -Atrial pacing wires cut with ventricular wires removed without resistance ?? Paroxysmal atrial fibrillation -s/p maze procedure AND exclusion of OLGA with atrial clip; POD#5 -Remains in NSR -c/w?Amiodarone PO with taper schedule; hold Amio if HR <65 -Continue coumadin , see above -Keep K>4 and Mag >2 ? Therapeutic INR -Coumadin today -Monitor daily INR -Monitor for bleeding ? Anticipated acute pulmonary insufficiency s/p CTS -Wean O2 -IS and CANDDB ? Hyperglycemia -c/w SSI ? Leukocytosis -Likely reactive -Trended down ? Anticipated acute blood loss anemia -Hgb 5.9 > transfused 1 unit PRBC -FeSO4 AND?ascorbic acid Transfer to 4200 Tests/Labs Ordered: 1. CBC 2. BMP Assessment and plan discussed with Dr. De Los Santos and CVICU team SIGNATURE: Yue Byrd PA-C PATIENT NAME: Gloria Mathew DATE: April 21, 2018 TIME: 1:48 PM PAGER/CONTACT #: [phone] ETX [id number] PROGRESS Observed: 04/21/2018 Status: COMPLETED Source: [place] 11:14 AM CLINIC OTHER CAMPUS REPOSITORY HNO ID: [id number] Author: Otto Guevara Service: Critical Care Author Type: Physician Type: Progress Notes Filed: 04/21/2018 11:16 AM Note Text: Notes and meds reviewed. Full ROS with the pt and RN. No overnight issues. Feels good. No pain or SOB at rest. ? On exam: 185/71, 70, 16, 36.3, 100% on RA Up in chair, NAD Appears pale Right IJ TLC A, O times 3, no FND S1S2 heard Decreased BS at the bases; minimal basilar crackles Soft, NT, BS present No pedal edema ? Data: Na 136, K 4.2, Cr 1.0 Hb 5.9, INR 2.87 ? CXR shows left basilar atelectasis and also some effusion. ? Impression: 1. Mostly resolved acute anticipated post-op respiratory insufficiency 2. Acute post-op blood loss anemia, needs transfusion 3. S/p MVR/ Maze procedure, and ligation of LA appendage - POD# 5 4. A.fib 5. Coagulopathy, improving ? Recs: - agree with blood transfusion - monitor H/H - IS Q1 - gentle diuresis as tolerated - increase activity - monitor INR closely - okay for floor ? D/w RN and pharm D ? Otto Guevara MD ? CHEST 1 VIEW Observed: 04/21/2018 Status: F Source: [facility] 9:44 AM HEALTH SYSTEM REPOSITORY Performed at [facility] APPROVED BY: Elijah Rodríguez MD EXAM TITLE: CHEST 1 VIEW DATE: 04/21/2018 09:21 INDICATION: Postoperative COMPARISON: 04/18/2018 FINDINGS: Since the previous exam, the [place]-Joe catheter has been removed. There is still a right internal jugular introducer sheath. No visible pneumothorax. Continued opacity at left base secondar y to a small pleural effusion and adjacent atelectasis. This has improved The thoracostomy tubes have been removed. There is no visible pneumothorax. Mild cardiomegaly. Mediastinal drain has been re moved. Sternotomy wires and left atrial appendage clip are stable. IMPRESSION: Recent removal of support lines. Improving left basilar effusion and atelectasis. PROTIME Collected: 04/21/2018 Status: F Source: [facility] 5:45 AM HEALTH SYSTEM REPOSITORY TYPE CODE TESTS RESULT OUT OF REFERENCE UNITS RANGE LAB PTI(LOINC) 9.7-13.0 sec Prothrombin High Time 27.6 LAB INR(LOINC) 0.90-1.30 INR High 2.87 Result Comment: Note: Reference Range Change Vitamin K Antagonist (VKA) Therapeutic Range: INR 2 to 3 (Target INR of 2.5) Note: For patients treated with VKA drugs, such as warfarin, the [employer] 2012 Guideline recommends a therapeutic INR range of 2 to 3 (target INR of 2.5). This recommendation includes high-risk patients with antiphospholipid syndrome with previous arterial or venous thromboembolism, current-generation mechanical or bioprosthetic aortic heart valve replacement. VKA Therapeutic Range for some Mechanical Valve Replacement: INR 2.5 to 3.5 (Target INR of 3) Note: Patients with mechanical aortic valve replacement and additional risk factors for thromboembolic events (atrial fibrillation, previous thromboembolism, LV dysfunction, hypercoagulable conditions) or an older generation mechanical AVR (i.e., ball in-Cage) or any mechanical MVR should have a INR therapeutic range of 2.5 to 3.5 target INR of 3). Nathanael GH, et al. Chest 2012; 141:7S-47S Marbella RA et al. [facility] 2017; 70: 252-289 Performed By: #### PT #### [facility] [address] [address] HEMOGRAM Collected: 04/21/2018 Status: F Source: [facility] 5:45 AM HEALTH SYSTEM REPOSITORY TYPE CODE TESTS RESULT OUT OF REFERENCE UNITS RANGE LAB WBC(LOINC) 3.98-10.04 thou/cmm WBC 6.40 LAB RBC(LOINC) 3.93-5.22 mil/cmm Low RBC 1.95 LAB HGB(LOINC) 11.2-15.7 g/dL Low Hgb alert 5.9 LAB HCT(LOINC) 34.1-44.9 % Low Hct alert 18.5 LAB MCV(LOINC) 79.4-94.8 fl MCV High 94.9 LAB MCH(LOINC) 25.6-32.2 pg MCH 30.3 LAB MCHC(LOINC 31.6-34.8 % ) MCHC 31.9 LAB RDW(LOINC) 11.7-14.4 % RDW High 15.3 LAB RDWSD(LOIN 36.4-46.3 fl C) RDW High SD 51.7 LAB PLT(LOINC) 182-369 thou/cmm Low Platelet 140 LAB MPV(LOINC) 9.4-12.3 fl MPV 9.7 LAB NRBCR(LOIN 0.0-0.2 % C) High Nucleated RBC % 1.9 LAB NRBCA(LOIN 0.00-0.01 thou/cmm C) High Nucleated RBC 0.12 Absolute Performed By: #### CBC1 #### [place] [address] BASIC PANEL Collected: 04/21/2018 Status: F Source: [facility] 5:45 AM HEALTH SYSTEM REPOSITORY TYPE CODE TESTS RESULT OUT OF REFERENCE UNITS RANGE LAB NA(LOINC) 136-145 mEq/L Sodium Blood 136 LAB K(LOINC) 3.5-5.1 mEq/L Potassium Blood 4.2 LAB CL(LOINC) 98-107 mEq/L Chloride Blood 107 LAB CO2(LOINC) 21-32 mEq/L CO2 Blood 23 LAB GLU(LOINC) 70-99 mg/dL Glucose Blood 93 LAB BUN(LOINC) 7-18 mg/dL BUN High Blood 38 LAB CREA(LOINC 0.51-0.95 mg/dL ) High Creatinine Blood 1.03 LAB CA(LOINC) 8.5-10.1 mg/dL Low Calcium Blood 8.1 LAB ANGAP(LOIN 8-16 C) Anion Gap 10 Performed By: #### P8 #### [place] [id number] PROGRESS Observed: 04/20/2018 Status: COMPLETED Source: [place] 3:02 PM CLINIC OTHER CAMPUS REPOSITORY HNO ID: [id number] Author: Otto Guevara Service: Critical Care Author Type: Physician Type: Progress Notes Filed: 04/20/2018 3:10 PM Note Text: Notes and meds reviewed. Full ROS with the pt and RN. No overnight issues. Feels good. No pain or SOB at rest. On exam: 153/ 48, 73, 22, 37, 98% on RA Up in chair, NAD Appears pale Right IJ TLC A, O times 3, no FND S1S2 heard Decreased BS at the bases; minimal basilar crackles Soft, NT, BS present No pedal edema Data: Na 134, K 4.8, Cr 1.3 Hb 6.3, INR 4.1 CXR shows left basilar atelectasis and also some effusion. Impression: 1. Mostly resolved acute anticipated post-op respiratory insufficiency 2. Acute post-op blood loss anemia 3. S/p MVR/ Maze procedure, and ligation of LA appendage - POD#4 4. A.fib 5. Coagulopathy Recs: - monitor H.H closely - may need blood transfusion, if ongoing drop in HCT - IS Q1 - gentle diuresis as tolerated - increase activity - monitor INR closely D/w sister at the bedside D/w RN and pharm D Otto Guevara MD THERAPY NT Observed: 04/20/2018 Status: COMPLETED Source: [place] 1:47 PM CLINIC OTHER CAMPUS REPOSITORY O ID: [id number] Author: Josefina QuinterosPtGary Mcgee Service: Physical Therapy Author Type: Physical Therapist Type: Therapy (PT/OT/Speech/Resp) Filed: 04/20/2018 1:50 PM Note Text: Physical Therapy Evaluation SERVICE DATE: 04/20/2018 SERVICE TIME: 1125 to 1140 ROOM: [id number] Recommended Discharge Disposition: Home Recommended Discharge Disposition Comments: Anticipate home with family assist at discharge Anticipated Discharge Needs: Physical Assist at Home;Supervision at Home Physical Assist at Home for: Cleaning;Laundry;Meals;Self Care;Shopping;Transportation Supervision at Home due to: Other: See Comment (recent hospitalization) PT Recommendations to Nursing: Ambulate with device;To bathroom;OOB for Meals;With assist of 1 person Device: Wheeled Walker PT 6 Clicks Score: 18 Precautions/Activity Restrictions: Sternal ASSESSMENT : Patient who was admitted for s/p MVR 04/16, presents with an evolving hospital course and the past medical history of Afib limiting current functional level, as well as the social factors complicating the discharge of lives alone; thus the patient required a moderate level complexity evaluation. This patient is below baseline functioning of independent without assistive device and will benefit from continued skilled therapy in the hospital for treatment of musculoskeletal, cardiovascular impairments which require gait training, transfer training, neuromuscluar re-education, family training, general strengthening, balance training, safety and endurance training. Currently the recommendation is home with family assist due to above listed functional deficits. Patient Disposition at Start of Session: OOB in Chair Patient Disposition at End of Session: OOB in Chair Tolerated Full Session Physical Therapy Problem List: Education Deficit;Safety Deficits;Decreased Strength;Functional Mobility Impairment;Balance Impaired Patient /Caregiver Goals: Go Home Goals for Plan of Care: Transfer supine to/from sit with: Independent Transfer sit to/from stand with: Independent Ambulate with: Independent Distance: 100 ft intervals Device: (least restrictive devic e) Goal: Demo good understanding of sternal precautions during functional mobility Rehab Potential: Good PLAN: Treatment Frequency (times per week): 5 (2-5) Current admission Treatment Interventions: Education;Strengthening;Functional Mobility Training;Balance Training Plan of Care developed with: Patient TREATMENT INTERVENTIONS: Therapy Diagnosis: Reduced mobility-other;Unsteadiness on feet;Abnormalities of gait and mobility-other Interventions Provided: Evaluation $ Evaluation-Low (98092) Billed Units: 1 unit Total Treatment Time (minutes): 15 FUNCTIONAL G CODE: PT 6 Clicks Score: 18 (04/20/18 1125) Mobility: Walking and Moving Around Current Status (G8978): CK (04/20/18 1125) Mobility: Walking and Moving Around Goal Status (G8979): CI (04/20/18 1125) Based on clinical assessment and the score on the 6 Clicks Functional Assessment Tool, the G code and corresponding severity modifiers are documented above. SUBJECTIVE: Current Hospital Course: Chart reviewed; Patient is a 77 year old female with Symptomatic severe mitral stenosis s/p MVR with a 29- mm St. 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 Sister present. Agreeable to PT. Home Environment Patient Lives With: Family will stay with sister Assistance Available: 24 Hour Entry To Home: Stairs;With Rail Number Of Stairs Into Home: 2 Number Of Stairs To Bed/Bath: 0 Tub/Shower Type: tub shower with hand held shower head and shower seat Laundry: sister to complete Equipment Owned: Grab Bars-Shower;Hand Held Shower;Wheeled Walker;Rollator;Shower Bench Prior Functional Level: Within Functional Limits Prior Functional Level Comments: independent, drives OBJECTIVE: CURRENT FUNCTIONAL STATUS: Current Functional Mobility Assist Level Additional Information Rolling Supine to Sit Sit to Supine Scooting Sit to Stand Contact Guard Assistance Stand to Sit Contact Guard Assistance Bed to Chair Toilet/Commode Gait Contact Guard Assistance Gait Device: (CVICU cart) Gait Distance (feet): 35 ft x 2 Stairs Curb Step Car Transfer General Gait Deviations: Adore decreased;Non-functional gait speed;Shuffling Gait -M: 7: Walk 25 feet or more Please see discipline specific clinical documentation flowsheet for complete details for this therapy evaluation/treatment. SIGNATURE: Josefina Mcgee PT PATIENT NAME: Gloria Mathew DATE: April 20, 2018 TIME: 1:47 PM THERAPY NT Observed: 04/20/2018 Status: COMPLETED Source: [place] 12:02 PM CLINIC OTHER CAMPUS REPOSITORY HNO ID: [id number] Author: Sita Hahn/Huber Ga OT Service: Occupational Therapy Author Type: Occupational Therapist Type: Therapy (PT/OT/Speech/Resp) Filed: 04/20/2018 12:04 PM Note Text: Occupational Therapy Evaluation SERVICE DATE: 04/20/2018 SERVICE TIME: 1130 to 1145 ROOM: [id number] Recommended Discharge Disposition: Home Recommended Discharge Disposition Comments: with family assist to ensure safety with ADLs/functional mobility Anticipated Discharge Needs: Physical Assist at Home;Supervision at Home Physical Assist at Home for: Cleaning;Laundry;Meals;Self Care;Shopping;Transportation Supervision at Home due to: Other: See Comment (recent hospitalization) OT Recommendations to Nursing: To Bathroom for ADL?s /and or Toileting;OOB for meals;With assist of 1 person Equipment: Other: See Comment (cardiac cart or w/w for balance) OT 6 Clicks Score: 19 Precautions/Activity Restrictions: Sternal ASSESSMENT: OT Evaluation Low Complexity: Occupational Profile - Brief review of patient's medical record completed (please see current hospital course of evaluation). Occupational Performance - Pt presents with deficits in grooming, UE bathing/dressing, LE bathing/dressing, functional transfers, functional mobility Complexity in Clinical Decision Making - The extent of clinical reasoning was low, number of treatment options limited, no need for modifications during the evaluation process: mitral valve stenosis Patient Disposition at Start of Session: Call Huang in Reach;OOB in Chair Patient Disposition at End of Session: OOB in Chair;Call Huang in Reach;Family Present Tolerated Full Session Occupational Therapy Problem List: Impaired Self Care;Decreased Activity Tolerance;Functional Mobility Impairment Patient /Caregiver Goals: Go Home Goals for Plan of Care: Grooming with: Supervision Upper Body Bathing with: Supervision Upper Body Dressing with: Independent Lower Body Bathing with: Modified Independent Lower Body Dressing with: Modified Independent Toilet Hygiene with: Independent Chair Transfer with: Supervision Toilet Transfer with: Supervision Tolerate (minutes of functional activity): 25 Functional Activity with: Supervision Demonstrate Competence With Education with: Independent PLAN: Treatment Frequency (times per week): 5 (1-4) Current admission Treatment Interventions: Education;Self Care / Home Management;Functional Mobility Training Plan of Care developed with: Patient TREATMENT INTERVENTIONS: Therapy Diagnosis: Reduced mobility-other;Decreased activities of daily living (ADL);Unsteadiness on feet Interventions Provided: Evaluation $ Evaluation-Low (06841) Billed Units: 1 unit Total Treatment Time (minutes): 15 FUNCTIONAL G CODE: OT 6 Clicks Score: 19 (04/20/18 1130) Self Care Current Status (G8987): CK (04/20/18 1130) Self Care Goal Status (G8988): CJ (04/20/18 1130) Based on clinical assessment and the score on the 6 Clicks Functional Assessment Tool, the G code and corresponding severity modifiers are documented above. SUBJECTIVE: Current Hospital Course: Chart reviewed; Symptomatic severe mitral stenosis s/p MVR with a 29-mm St. 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 No c/o pain. Patient's sister present and reports that pt will have the help she needs at home. Home Environment Patient Lives With: Family (sister) Assistance Available: 24 Hour Entry To Home: Stairs;With Rail Number Of Stairs Into Home: 2 Number Of Stairs To Bed/Bath: 0 Tub/Shower Type: tub shower with hand held shower head and shower seat Laundry: sister to complete Equipment Owned: Grab Bars-Shower;Hand Held Shower;Wheeled Walker;Rollator;Shower Bench Prior Functional Level: Within Functional Limits Prior Functional Level Comments: independent, drives OBJECTIVE: Cognition/Communication Deficits Responsiveness: Alert Follows Commands: 2-step Commands CURRENT FUNCTIONAL STATUS: Current Activities of Daily Living Assist Level Feeding Set Up Grooming Contact Guard Assistance Bathing Upper Body Contact Guard Assistance Bathing Lower Body Minimal Assistance Dressing Upper Body Contact Guard Assistance Dressing Lower Body Minimal Assistance Toileting Contact Guard Assistance Functional Mobility Assist Level Rolling Supine to Sit Sit to Supine Scooting Sit to Stand Contact Guard Assistance Stand to Sit Contact Guard Assistance Bed to Chair Toilet/Commode Contact Guard Assistance Functional Mobility Contact Guard Assistance Other: See Comment (cardiac cart) Hand Dominance: Right Range of Motion: WFL Strength: WFL (grossly intact; not formally tested 2/2 incision) Activity Tolerance: Standing Activity Standing Activity: Functional mobility in/out of patient room Standing Activity Tolerance (in minutes): 7 Please see discipline specific clinical documentation flowsheet for complete details for this therapy evaluation/treatment. SIGNATURE: SWAPNIL Mcnamara/Marquise PATIENT NAME: Gloria Mathew DATE: April 20, 2018 TIME: 12:03 PM PROGRESS Observed: 04/20/2018 Status: COMPLETED Source: [place] 10:44 AM CLINIC OTHER CAMPUS REPOSITORY HNO ID: [id number] Author: Josefina Goodman Service: Cardiovascular Medicine Author Type: Nurse Practitioner Type: Progress Notes Filed: 04/20/2018 4:09 PM Note Text: CARDIOTHORACIC SURGERY POSTOP PROGRESS NOTE SERVICE DATE: 04/20/2018 SERVICE TIME: 10:44 AM Subjective S/P SURGERY: Procedure(s) (LRB): REPLACEMENT MITRAL VALVE W/ CARDIOPULMONARY BYPASS (N/A) FULL MAZE DONE W/ VALVE REPLACEMENT W/ CP-BYPASS (N/A) DATE OF SURGERY: 04/16/2018 POSTOP DAY #4 LOS: 4 INTERVAL EVENTS / PERTINENT ROS: Pain controlled. Denies SOB. Urinating better today Objective Admission Weight: 64.4 kg (141 lb 15.6 oz) BP 177/58 Pulse 78 Temp 36.1 ?C (97 ?F) Resp 23 Ht 157.5 cm (5' 2.01) Wt 74.2 kg (163 lb 9.3 oz) SpO2 (!) 73% BMI 29.91 kg/m? Body surface area is 1.8 meters squared. Min/Max/Average Temperature AND Blood Pressure: Temp (24hrs), Av.5 ?C (97.7 ?F), Min:36.1 ?C (97 ?F), Max:36.9 ?C (98.4 ?F) Systolic (24hrs), Av , Min:98 , Max:177 Diastolic (24hrs), Av, Min:30, Max:84 Intake/Output Summary (Last 24 hours) at 04/20/18 1044 Last data filed at 04/20/18 0640 Gross per 24 hour Intake 480 ml Output 600 ml Net -120 ml Current Facility-Administered Medications: - acetaminophen 650 mg tab(s) (TYLENOL) - albuterol 2.5 mg /3 mL (0.083 %) 2.5 mg (PROVENTIL) - amiodarone 200 mg tab(s) (PACERONE) - [START ON 04/22/2018] amiodarone 200 mg tab(s) (PACERONE) - [START ON 04/27/2018] amiodarone 200 mg tab(s) (PACERONE) - ascorbic acid (vitamin C) 500 mg tab(s) (VITAMIN C) - aspirin 162 mg chewable tab(s) - atorvastatin 10 mg tab(s) (LIPITOR) - bisacodyl 10 mg suppository (DULCOLAX) - dextrose 40 % 15 g OR glucagon 1 mg injection (GLUCAGEN) OR dextrose 50% in water 25 mL syringe - ferrous sulfate 325 mg tab(s) - gabapentin 200 mg cap(s) (NEURONTIN) - insulin lispro pen (rapid acting) (HumaLOG KWIKPEN) - magnesium sulfate in water 2 g in sterile water 50 ml - morphine 2-4 mg injection - ondansetron (PF) 4 mg injection (ZOFRAN) - oxyCODONE-acetaminophen 5-325 mg 1-2 tablet (PERCOCET) - pantoprazole DR 40 mg tab(s) (PROTONIX) - ECHO LIMITED AND perflutren lipid microspheres 1.1 mg/mL 1.3 mL injection (DEFINITY) - polyethylene glycol 3350 17 g packet (MIRALAX, GLYCOLAX) - potassium chloride iv piggyback 20 mEq/100 mL - pramipexole 0.25 mg tab(s) (MIRAPEX) - senna-docusate 8.6-50 mg 1 tablet (SENNA-S) - warfarin dose per INR - Call physician daily for dose TELEMETRY: normal sinus rhythm PHYSICAL EXAM: General Appearance: well developed, no distress and up in chair Skin: Midsternal incision dry AND intact., warm and dry Lungs: clear and respiratory effort: normal Heart: regular rhythm, S1, S2 normal and pacing wires present Abdomen: soft, non-tender and bowel sounds present Extremities: edema: 1+, pitting at bilateral hands and LE, . Lines, Drains, and Airways Line Central Line Quadruple Lumen 04/16/18 0838 Non-tunneled Right Neck 4 days Drain Indwelling Urinary Catheter 04/19/18 0700 Straight Cath 1 day DATA: Diagnostic tests reviewed for today's visit: Recent Labs 04/20/18 0635 04/19/18 1655 04/19/18 0350 04/18/18 0410 RBC -- -- 2.16* 2.36* WBC -- -- 13.87* 16.29* HB 6.3* -- 6.6* 7.2* HCT 19.2* -- 20.2* 21.9* PLT -- -- 111* 103* INR 4.17* -- 4.64* 1.36* NA 134* 133* 134* 138 K 4.8 4.7 4.7 4.1 CHLOR 107 108* 109* 112* CO2 21 19* 18* 19* BUN 41* 37* 32* 19* CREAT 1.33* 1.40* 1.47* 0.92 GLUC 98 122* 128* 105* CA 7.8* 7.5* 7.5* 7.3* MG -- -- -- 2.4 ANION 11 11 12 11 Assessment/Plan Symptomatic severe mitral stenosis s/p MVR with a 29-mm St. Zenon bioprosthetic valve -POD#4 -Convert cordis to TLC for IV access once INR is less than 2. -EF 55% preop -c/w ASA; hold Coumadin due to elevated INR -post op ECHO shows well-seated MV without perivalvular regurgitation -Still has pacing wires ?? Paroxysmal atrial fibrillation s/p MAZE procedure AND exclusion of OLGA with atrial clip -POD#4 -Remains in NSR, heart rate 70's -c/w?Amiodarone PO with taper schedule; hold Amio if HR <65 -hold Coumadin; monitor INR daily -Keep K>4 and Mag >2 ? Supra-therapeutic INR -Hold Coumadin today -Monitor daily INR. -Monitor for bleeding Anticipated acute pulmonary insufficiency s/p CTS -Wean O2 -IS and CANDDB ? Hyperglycemia -stress-induced -Improving -c/w SSI ? Leukocytosis -likely reactive -trended down ? Anticipated acute blood loss anemia -Started Iron supplement AND ascorbic acid. -Per Dr. De Los Santos, no transfusion today. Pt remains hemodynamically stable. ? DVT ppx -SCDs Tests/Labs Ordered: 1. BMP 2. CBC SIGNATURE: Josefina Goodman APRN.DITTO MACHINE OPERATOR PATIENT NAME: Gloria Mathew DATE: April 20, 2018 TIME: 10:44 AM PAGER/CONTACT #: [id number] ETX [id number] PROTIME Collected: 04/20/2018 Status: F Source: [facility] 6:35 AM HEALTH SYSTEM REPOSITORY TYPE CODE TESTS RESULT OUT OF REFERENCE UNITS RANGE LAB PTI(LOINC) 9.7-13.0 sec Prothrombin High Time 39.0 LAB INR(LOINC) 0.90-1.30 INR High 4.17 Result Comment: Note: Reference Range Change Vitamin K Antagonist (VKA) Therapeutic Range: INR 2 to 3 (Target INR of 2.5) Note: For patients treated with VKA drugs, such as warfarin, the [employer] 2012 Guideline recommends a therapeutic INR range of 2 to 3 (target INR of 2.5). This recommendation includes high-risk patients with antiphospholipid syndrome with previous arterial or venous thromboembolism, current-generation mechanical or bioprosthetic aortic heart valve replacement. VKA Therapeutic Range for some Mechanical Valve Replacement: INR 2.5 to 3.5 (Target INR of 3) Note: Patients with mechanical aortic valve replacement and additional risk factors for thromboembolic events (atrial fibrillation, previous thromboembolism, LV dysfunction, hypercoagulable conditions) or an older generation mechanical AVR (i.e., ball in-Cage) or any mechanical MVR should have a INR therapeutic range of 2.5 to 3.5 target INR of 3). Nathanael GH, et al. Chest 2012; 141:7S-47S [place] RA, et al. [facility] 2017; 70: 252-289 Performed By: #### PT #### [place] [address] HGB Collected: 04/20/2018 Status: F Source: [facility] 6:35 AM HEALTH SYSTEM REPOSITORY TYPE CODE TESTS RESULT OUT OF RANGE REFERENCE UNITS LAB HGBI(LOINC) 11.2-15.7 g/dL Low alert Hgb 6.3 Result Comment: Repeated AND verified Performed By: #### HGBI #### [place] [address] HCT Collected: 04/20/2018 Status: F Source: [facility] 6:35 AM HEALTH SYSTEM REPOSITORY TYPE CODE TESTS RESULT OUT OF RANGE REFERENCE UNITS LAB HCTI(LOINC) 34.1-44.9 % Low alert Hct 19.2 Result Comment: Repeated AND verified Performed By: #### HCTI #### [place] [address] BASIC PANEL Collected: 04/20/2018 Status: F Source: [facility] 6:35 AM HEALTH SYSTEM REPOSITORY TYPE CODE TESTS RESULT OUT OF REFERENCE UNITS RANGE LAB NA(LOINC) 136-145 mEq/L Low Sodium Blood 134 LAB K(LOINC) 3.5-5.1 mEq/L Potassium Blood 4.8 LAB CL(LOINC) 98-107 mEq/L Chloride Blood 107 LAB CO2(LOINC) 21-32 mEq/L CO2 Blood 21 LAB GLU(LOINC) 70-99 mg/dL Glucose Blood 98 LAB BUN(LOINC) 7-18 mg/dL BUN High Blood 41 LAB CREA(LOINC 0.51-0.95 mg/dL ) High Creatinine Blood 1.33 LAB CA(LOINC) 8.5-10.1 mg/dL Low Calcium Blood 7.8 LAB ANGAP(LOIN 8-16 C) Anion Gap 11 Performed By: #### P8 #### [place] [address] BASIC PANEL Collected: 04/19/2018 Status: F Source: [facility] 4:55 PM HEALTH SYSTEM REPOSITORY TYPE CODE TESTS RESULT OUT OF REFERENCE UNITS RANGE LAB NA(LOINC) 136-145 mEq/L Low Sodium Blood 133 LAB K(LOINC) 3.5-5.1 mEq/L Potassium Blood 4.7 LAB CL(LOINC) 98-107 mEq/L Chloride High Blood 108 LAB CO2(LOINC) 21-32 mEq/L Low CO2 Blood 19 LAB GLU(LOINC) 70-99 mg/dL Glucose High Blood 122 LAB BUN(LOINC) 7-18 mg/dL BUN High Blood 37 LAB CREA(LOINC 0.51-0.95 mg/dL ) High Creatinine Blood 1.40 LAB CA(LOINC) 8.5-10.1 mg/dL Low Calcium Blood 7.5 LAB ANGAP(LOIN 8-16 C) Anion Gap 11 Performed By: #### P8 #### [place] [address] THERAPY NT Observed: 04/19/2018 Status: COMPLETED Source: [place] 3:20 PM CLINIC OTHER CAMPUS REPOSITORY HNO ID: [id number] Author: Sita Hahn/Huber Ga OT Service: Occupational Therapy Author Type: Occupational Therapist Type: Therapy (PT/OT/Speech/Resp) Filed: 04/19/2018 3:21 PM Note Text: OCCUPATIONAL THERAPY MISSED VISIT SERVICE DATE: 04/19/2018 SERVICE TIME: 1520 to 1520 ROOM: [place] [address] Attempted Evaluation. Patient not seen due to Other: See Comment (hgb 6.6). SIGNATURE: Sita Ga OTR/L PATIENT NAME: Gloria Mathew DATE: April 19, 2018 TIME: 3:20 PM PROGRESS Observed: 04/19/2018 Status: COMPLETED Source: [place] 2:11 PM CLINIC OTHER CAMPUS REPOSITORY HNO ID: [id number] Author: Josefina Goodman Service: Cardiovascular Medicine Author Type: Nurse Practitioner Type: Progress Notes Filed: 04/19/2018 5:02 PM Note Text: CARDIOTHORACIC SURGERY POSTOP PROGRESS NOTE SERVICE DATE: 04/19/2018 SERVICE TIME: 14:11PM Subjective S/P SURGERY: Procedure(s) (LRB): REPLACEMENT MITRAL VALVE W/ CARDIOPULMONARY BYPASS (N/A) FULL MAZE DONE W/ VALVE REPLACEMENT W/ CP-BYPASS (N/A) DATE OF SURGERY: 04/16/2018 POSTOP DAY #3 LOS: 3 INTERVAL EVENTS / PERTINENT ROS: Pain controlled. Denies SOB. Ambulated well today. UOP still low. Objective Admission Weight: 64.4 kg (141 lb 15.6 oz) BP (!) 98/38 Pulse 62 Temp 36.4 ?C (97.5 ?F) (Temporal Artery) Resp 19 Ht 157.5 cm (5' 2.01) Wt 68 kg (150 lb) SpO2 98% BMI 27.43 kg/m? Body surface area is 1.72 meters squared. Min/Max/Average Temperature AND Blood Pressure: Temp (24hrs), Av.5 ?C (97.7 ?F), Min:36 ?C (96.8 ?F), Max:36.9 ?C (98.4 ?F) Systolic (24hrs), Av , Min:85 , Max:103 Diastolic (24hrs), Av, Min:36, Max:45 Intake/Output Summary (Last 24 hours) at 04/19/18 1625 Last data filed at 04/19/18 1250 Gross per 24 hour Intake 795 ml Output 410 ml Net 385 ml Current Facility-Administered Medications: - acetaminophen 650 mg tab(s) (TYLENOL) - albuterol 2.5 mg /3 mL (0.083 %) 2.5 mg (PROVENTIL) - amiodarone 200 mg tab(s) (PACERONE) - [START ON 04/22/2018] amiodarone 200 mg tab(s) (PACERONE) - [START ON 04/27/2018] amiodarone 200 mg tab(s) (PACERONE) - ascorbic acid (vitamin C) 500 mg tab(s) (VITAMIN C) - aspirin 162 mg chewable tab(s) - atorvastatin 10 mg tab(s) (LIPITOR) - bisacodyl 10 mg suppository (DULCOLAX) - dextrose 40 % 15 g OR glucagon 1 mg injection (GLUCAGEN) OR dextrose 50% in water 25 mL syringe - ferrous sulfate 325 mg tab(s) - gabapentin 200 mg cap(s) (NEURONTIN) - insulin lispro pen (rapid acting) (HumaLOG KWIKPEN) - magnesium sulfate in water 2 g in sterile water 50 ml - morphine 2-4 mg injection - NaCl 0.9% iv infusion - NORepinephrine 16 mg in D5W 250 mL (LEVOPHED) - ondansetron (PF) 4 mg injection (ZOFRAN) - oxyCODONE-acetaminophen 5-325 mg 1-2 tablet (PERCOCET) - pantoprazole DR 40 mg tab(s) (PROTONIX) - ECHO LIMITED AND perflutren lipid microspheres 1.1 mg/mL 1.3 mL injection (DEFINITY) - polyethylene glycol 3350 17 g packet (MIRALAX, GLYCOLAX) - potassium chloride iv piggyback 20 mEq/100 mL - pramipexole 0.25 mg tab(s) (MIRAPEX) - senna-docusate 8.6-50 mg 1 tablet (SENNA-S) - warfarin dose per INR - Call physician daily for dose TELEMETRY: normal sinus rhythm PHYSICAL EXAM: General Appearance: well developed, no distress and drowy but easily awakens. Skin: Midsternal incision dry AND intact., SVG incisions dry AND intact. and warm Lungs: clear and respiratory effort: normal Heart: regular rhythm, S1, S2 normal and pacing wires present Abdomen: soft, non-tender and bowel sounds present Extremities: edema: 2+, bilateral hands Lines, Drains, and Airways Line Arterial Line 04/16/18 0806 Arterial Line Left Radial 3 days Central Line Quadruple Lumen 04/16/18 0838 Non-tunneled Right Neck 3 days Drain Indwelling Urinary Catheter 04/19/18 0700 Straight Cath less than 1 day DATA: Diagnostic tests reviewed for today's visit: Recent Labs 04/19/18 0350 04/18/18 0410 04/17/18 0315 RBC 2.16* 2.36* 2.98* WBC 13.87* 16.29* 17.54* HB 6.6* 7.2* 9.0* HCT 20.2* 21.9* 27.5* PLT 111* 103* 184 INR 4.64* 1.36* 1.17 NA 134* 138 147* K 4.7 4.1 3.9 CHLOR 109* 112* 120* CO2 18* 19* 16* BUN 32* 19* 15 CREAT 1.47* 0.92 0.96* GLUC 128* 105* 129* CA 7.5* 7.3* 6.5* MG -- 2.4 1.8 ANION 12 11 15 Assessment/Plan Symptomatic severe mitral stenosis s/p MVR with a 29-mm [employer] bioprosthetic valve -POD#3 -Convert cordis to TLC for IV access since she has poor peripheral access. -dc tory -EF 55% preop -c/w ASA; hold Coumadin due to elevated INR -Check post op ECHO -Still has pacing wires ? Anticipated hypotension/vasoplegia s/p CTS -Resolved; off Levo ? Paroxysmal atrial fibrillation s/p MAZE procedure AND exclusion of OLGA with atrial clip -POD#3 -Remains in NSR, heart rate 60's -c/w Amiodarone PO with taper schedule; hold Amio if HR <65 -hold Coumadin; monitor INR daily -Keep K>4 and Mag >2 ? Supra-therapeutic INR -Hold Coumadin today -dc Lovenox -Monitor daily INR. -Monitor for bleeding Anticipated acute pulmonary insufficiency s/p CTS -Wean O2 -IS and CANDDB ? Hyperglycemia -stress-induced -c/w SSI ? Leukocytosis -likely reactive -trended down ? Anticipated acute blood loss anemia -Started Iron supplement AND ascorbic acid. -Consider transfusion due to low UOP -No active bleeding noted currently ? DVT ppx -SCDs Tests/Labs Ordered: 1. Echocardiogram 2. BMP 3. CBC SIGNATURE: Josefina Goodman APRN.CNP PATIENT NAME: Gloria Mathew DATE: April 19, 2018 TIME: 4:25 PM PAGER/CONTACT #: [phone] [id number] CASE MGT INIT Observed: 04/19/2018 Status: COMPLETED Source: [facility] 2:04 PM CLINIC OTHER CAMPUS REPOSITORY HNO ID: [id number] Author: Maria Antonia (Rn) MARCELLA Flores Service: Care Management Author Type: Registered Nurse Type: Care Mgt Initial Assessment Filed: 04/19/2018 2:15 PM Note Text: CARE MANAGEMENT: ASSESSMENT AND DISCHARGE PLAN SERVICE DATE: 04/19/2018 SERVICE TIME: 2:04 PM PRIMARY CARE PHYSICIAN: Loree Small MD ADMISSION STATUS: Inpatient Needs Prior to Discharge: To Be Determined 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 Yes Is This a Planned Readmission? No: Recurrent symptoms of underlying disease Followed Up with Appointment Prior to Admission: Patient scheduled, but readmitted prior Where Did the Patient Come From? Home Intervention Taken to Avoid Future Readmission? Unknown Advance Directive: Current Advance Directive: None [facility] Attempted to Assist with AD Completion: Yes Action: Patient Unwilling Health Literacy: 1. How often do you need to have someone help you when you read instructions, pamphlets, or other written material from your doctor or pharmacy? Never - 1 2. How confident are you filling out medical forms by yourself? Extremely - 1 If Patient scores > 3 on either question, the following interventions were put into place: Patient did not score > 3 FUNCTIONAL AND COGNITIVE/BEHAVIORAL PRIOR TO ADMISSION: Baseline Mental Status: Alert AND Oriented, Person, Place , Time and Situation Functional Status: Independent Does Patient Currently Receive Any Community Services or Home Care? None Equipment Prior to Admission: Bi-level Positive Airway Pressure/Continuous Positive Airway Pressure Has the Patient Been in a Senior Living Facility in the Past 30 days? 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 No Caregiver Needed Patient's transition needs and plan for meeting these needs: TBD Does the patient have an acute stroke diagnosis, or has the patient had a stroke during this admission? No Medication Adherence: I am convinced of the importance of my prescription medication: Agree completely - 0 I worry that my prescription medication will do more harm than good to me Disagree mostly - 0 I feel financially burdened by my [id number]-eqoapa expenses for my prescription medication: Disagree mostly -0 Patient is categorized as low risk < 2 Are you interested in bedside delivery of your medications? Yes Food Concerns: In the Last Month, Have You had Trouble Getting Food? No trouble getting food During the Last Month, Have You Worried Whether Your Food Would Run Out Before You Had Enough Money to Buy More? No Is the Patient Psychosocially Complex? No ASSESSMENT AND PLAN: Medical Needs: 2 or more chronic diseases Psychosocial Needs: None FREEDOM OF CHOICE EXPLAINED: Financial Disclosure Provided POTENTIAL TRANSITION PLANS Home OT/PT Chart reviewed. +PCP, +Rx - would like to Rx filled here, DME: CPAP and denies any other. SIGNATURE: Maria Antonia Flores RN PATIENT NAME: Gloria Mathew DATE: April 19, 2018 TIME: 2:04 PM PAGER/CONTACT #: [phone] THERAPY NT Observed: 04/19/2018 Status: COMPLETED Source: [place] 12:53 PM CLINIC OTHER CAMPUS REPOSITORY HNO ID: [id number] Author: Christina QuinterosPtGary Maurer Service: Physical Therapy Author Type: Physical Therapist Type: Therapy (PT/OT/Speech/Resp) Filed: 04/19/2018 12:54 PM Note Text: PHYSICAL THERAPY MISSED VISIT SERVICE DATE: 04/19/2018 SERVICE TIME: 1253 to 1253 ROOM: [place] [id number] Attempted Evaluation. Patient not seen due to Illness (Patient with Hgb 6.6). Will continue to follow. SIGNATURE: Christina Maurer PT PATIENT NAME: Gloria Mathew DATE: April 19, 2018 TIME: 12:54 PM PROGRESS Observed: 04/19/2018 Status: COMPLETED Source: [place] 11:25 AM CLINIC OTHER CAMPUS REPOSITORY HNO ID: [id number] Author: Jaxon Marques Service: Pulmonary Disease Author Type: Physician Type: Progress Notes Filed: 04/19/2018 11:35 AM Note Text: PULMONARY/CRITICAL CARE PROGRESS NOTE SERVICE DATE: April 19, 2018 SERVICE TIME: 11:26 AM Admission Date: 04/16/2018 AGE: [age] year old LOS: 3 days BP (!) 87/37 Pulse 61 Temp 36.9 ?C (98.4 ?F) (Temporal Artery) Resp 19 Ht 157.5 cm (5' 2.01) Wt 68 kg (150 lb) SpO2 96% BMI 27.43 kg/m? EXAM: RRR Clear to auscultation without wheezing bilaterally anteriorly. Good bowel sounds, soft, nondistended. No pedal edema bilaterally. Poor turgor, but dry, intact skin. 24 hour Intake AND Output: Intake/Output Summary (Last 24 hours) at 04/19/18 1126 Last data filed at 04/19/18 0700 Gross per 24 hour Intake 795 ml Output 330 ml Net 465 ml INPATIENT MEDICATIONS: Current hospital medications: acetaminophen 650 mg tab(s) (TYLENOL) 650 mg ORAL q 6 H PRN albuterol 2.5 mg /3 mL (0.083 %) 2.5 mg (PROVENTIL) 2.5 mg INHALATION q 2 H PRN amiodarone 200 mg tab(s) (PACERONE) 200 mg ORAL TID [START ON 04/22/2018] amiodarone 200 mg tab(s) (PACERONE) 200 mg ORAL BID [START ON 04/27/2018] amiodarone 200 mg tab(s) (PACERONE) 200 mg ORAL DAILY ascorbic acid (vitamin C) 500 mg tab(s) (VITAMIN C) 500 mg ORAL DAILY aspirin 162 mg chewable tab(s) 162 mg ORAL DAILY atorvastatin 10 mg tab(s) (LIPITOR) 10 mg ORAL AT BEDTIME bisacodyl 10 mg suppository (DULCOLAX) 10 mg RECTAL DAILY PRN dextrose 40 % 15 g 15 g ORAL PRN dextrose 50% in water 25 mL syringe 12.5 g INTRAVENOUS PRN ferrous sulfate 325 mg tab(s) 325 mg ORAL BID w MEALS gabapentin 200 mg cap(s) (NEURONTIN) 200 mg ORAL AT BEDTIME glucagon 1 mg injection (GLUCAGEN) 1 mg INTRAMUSCULAR PRN insulin lispro pen (rapid acting) (HumaLOG KWIKPEN) SUBCUTANEOUS w MEALS AND HS magnesium sulfate in water 2 g in sterile water 50 ml 2 g INTRAVENOUS PRN(NO DISPENSE) morphine 2-4 mg injection 2-4 mg INTRAVENOUS q 3 H PRN NaCl 0.9% iv infusion 5-30 mL/hr INTRAVENOUS CONTINUOUS NORepinephrine 16 mg in D5W 250 mL (LEVOPHED) 0.6-30 mcg/min INTRAVENOUS CONTINUOUS ondansetron (PF) 4 mg injection (ZOFRAN) 4 mg INTRAVENOUS q 6 H PRN oxyCODONE-acetaminophen 5-325 mg 1-2 tablet (PERCOCET) 1-2 tablet ORAL q [address] 40 mg tab(s) (PROTONIX) 40 mg ORAL DAILY (6 AM) perflutren lipid microspheres 1.1 mg/mL 1.3 mL injection (DEFINITY) 1.3 mL INTRAVENOUS DIRECTED PRN polyethylene glycol 3350 17 g packet (MIRALAX, GLYCOLAX) 17 g ORAL DAILY potassium chloride iv piggyback 20 mEq/100 mL 20 mEq INTRAVENOUS PRN pramipexole 0.25 mg tab(s) (MIRAPEX) 0.25 mg ORAL AT BEDTIME senna-docusate 8.6-50 mg 1 tablet (SENNA-S) 1 tablet ORAL BID warfarin dose per INR - Call physician daily for dose ORAL DAILY - WARFARIN Assessment/Plan ASSESSMENT: S/P MVR, Maze procedure, and ligation of atrial appendage, POD # 3 Anticipated acute hypoxic post-operative respiratory insufficiency Post-operative atrial fibrillation---now resolved Multiple chronic medical problems PLAN: Doing well on room air. Hemodynamically stable off pressors. Out of bed/activity as able. PRN pain control. Incentive spirometry every hour while awake. Patient is steadily improving. SIGNATURE: Jaxon Marques MD [facility] DATE of SERVICE: April 19, 2018 TIME of SERVICE: 11:26 AM PROTIME Collected: 04/19/2018 Status: F Source: [facility] 3:50 AM HEALTH SYSTEM REPOSITORY TYPE CODE TESTS RESULT OUT OF REFERENCE UNITS RANGE LAB PTI(LOINC) 9.7-13.0 sec Prothrombin High Time 43.1 Result Comment: RESULT RECHECKED LAB INR(LOINC) 0.90-1.30 High alert 4.64 INR Result Comment: RESULT RECHECKED Note: Reference Range Change Vitamin K Antagonist (VKA) Therapeutic Range: INR 2 to 3 (Target INR of 2.5) Note: For patients treated with VKA drugs, such as warfarin, the [employer] 2012 Guideline recommends a therapeutic INR range of 2 to 3 (target INR of 2.5). This recommendation includes high-risk patients with antiphospholipid syndrome with previous arterial or venous thromboembolism, current-generation mechanical or bioprosthetic aortic heart valve replacement. VKA Therapeutic Range for some Mechanical Valve Replacement: INR 2.5 to 3.5 (Target INR of 3) Note: Patients with mechanical aortic valve replacement and additional risk factors for thromboembolic events (atrial fibrillation, previous thromboembolism, LV dysfunction, hypercoagulable conditions) or an older generation mechanical AVR (i.e., ball in-Cage) or any mechanical MVR should have a INR therapeutic range of 2.5 to 3.5 target INR of 3). Guyatt GH, et al. Chest 2012; 141:7S-47S Marbella RA, et al. JACC 2017; 70: 252-289 Performed By: #### PT #### [place] [id number] HEMOGRAM Collected: 04/19/2018 Status: F Source: [facility] 3:50 AM HEALTH SYSTEM REPOSITORY TYPE CODE TESTS RESULT OUT OF RANGE REFERENCE UNITS LAB WBC(LOINC) 3.98-10.04 thou/cmm High WBC 13.87 LAB RBC(LOINC) 3.93-5.22 mil/cmm Low RBC 2.16 LAB HGB(LOINC) 11.2-15.7 g/dL Low alert Hgb 6.6 Result Comment: Repeated AND verified LAB HCT(LOINC) 34.1-44.9 % Hct Low 20.2 LAB MCV(LOINC) 79.4-94.8 fl MCV 93.5 LAB MCH(LOINC) 25.6-32.2 pg MCH 30.6 LAB MCHC(LOINC) 31.6-34.8 % MCHC 32.7 LAB RDW(LOINC) 11.7-14.4 % RDW High 15.1 LAB RDWSD(LOINC) 36.4-46.3 fl RDW High SD 51.4 LAB PLT(LOINC) 182-369 thou/cmm Low Platelet 111 LAB MPV(LOINC) 9.4-12.3 fl MPV 10.7 LAB NRBCR(LOINC) 0.0-0.2 % High Nucleated RBC % 0.4 LAB NRBCA(LOINC) 0.00-0.01 thou/cmm High Nucleated RBC Absolute 0.05 Performed By: #### CBC1 #### [place] [address] BASIC PANEL Collected: 04/19/2018 Status: F Source: [facility] 3:50 AM HEALTH SYSTEM REPOSITORY TYPE CODE TESTS RESULT OUT OF REFERENCE UNITS RANGE LAB NA(LOINC) 136-145 mEq/L Low Sodium Blood 134 LAB K(LOINC) 3.5-5.1 mEq/L Potassium Blood 4.7 LAB CL(LOINC) 98-107 mEq/L Chloride High Blood 109 LAB CO2(LOINC) 21-32 mEq/L Low CO2 Blood 18 LAB GLU(LOINC) 70-99 mg/dL Glucose High Blood 128 LAB BUN(LOINC) 7-18 mg/dL BUN High Blood 32 LAB CREA(LOINC 0.51-0.95 mg/dL ) High Creatinine Blood 1.47 LAB CA(LOINC) 8.5-10.1 mg/dL Low Calcium Blood 7.5 LAB ANGAP(LOIN 8-16 C) Anion Gap 12 Performed By: #### P8 #### [address] [address] PROGRESS Observed: 04/18/2018 Status: COMPLETED Source: [place] 12:59 PM CLINIC OTHER CAMPUS REPOSITORY HNO ID: [id number] Author: Adiel Villagran Service: Critical Care Author Type: Physician Type: Progress Notes Filed: 04/18/2018 1:02 PM Note Text: CRITICAL CARE PROGRESS NOTE SERVICE DATE: April 18, 2018 SERVICE TIME: 12:59 PM Admission Date: 04/16/2018 AGE: [age] year old LOS: 2 days REASON FOR ICU ADMISSION: S/P MVR and Maze procedure 04/16/2018 Subjective Pt is a 77yo WF s/p MVR and Maze procedure. She has a PMH significant for Afib. She was on Metoprolol and coumadin for her afib. She is a life long nonsmoker. OVERNIGHT EVENTS: NA Objective PAST MEDICAL HISTORY Diagnosis Date - Breast mass, right - IBS (irritable bowel syndrome) - Mitral valve regurgitation - Mitral valve stenosis - Pulmonary HTN (HCC) - Tricuspid regurgitation PAST SURGICAL HISTORY Procedure Laterality Date - BREAST BIOPSY - CHOLECYSTECTOMY HX 10/02/2011 - HYSTERECTOMY HX MARYELLEN/BLO - LEG SURGERY HX Social History Marital status: Spouse name: Years of education: Number of children: Social History Main Topics Smoking status: Never Smoker Smokeless tobacco: Never Used Alcohol use: No Drug use: No Other Topics Concern Caffeine Concern No Special Diet No Comment:average Exercise No Comment:sedentary VITAL SIGNS: BP (!) 102/40 Pulse 73 Temp 37.5 ?C (99.5 ?F) (Core) Resp 19 Ht 157.5 cm (5' 2.01) Wt 73.2 kg (161 lb 6 oz) SpO2 98% BMI 29.51 kg/m? Temp (24hrs), Av.9 ?C (98.5 ?F), Min:36.4 ?C (97.5 ?F), Max:37.5 ?C (99.5 ?F) Currently requiring levophed 5 mcg/min to maintain MAP of 65 Pulse ox 98% on 1 Lpm nasal cannula. Vital signs reviewed. 24 hour Intake AND Output: Intake/Output Summary (Last 24 hours) at 04/18/18 1259 Last data filed at 04/18/18 1200 Gross per 24 hour Intake 3776 ml Output 768 ml Net 3008 ml PHYSICAL EXAM: IRON MINER: 77-year-old white female sitting up in a chair in no acute distress. Eyes: PER Neck: Unremarkable; No adenopathy or JVD Cardiovascular: Regular rhythm, sternal incision is C/D/I. Respiratory: Clear to auscultation Abdomen: Soft and Nontender Extremities: Edema- No. SCD applied. Skin: Abnormalities- No : [place] w/ clear yellow urine. VENTILATOR INFORMATION: off vent now. INDWELLING CATHETERS: Lines, Drains, and Airways Line Arterial Line 04/16/18 0806 Arterial Line Left Radial 2 days Central Line Quadruple Lumen 04/16/18 0838 Non-tunneled Right Neck 2 days Drain Chest Tube 04/16/18 1245 32 Fr 2 days Chest Tube 04/16/18 1245 32 Fr Tube #1 2 days Chest Tube 04/16/18 1245 32 Fr Tube #2 2 days INPATIENT MEDICATIONS: Current hospital medications: acetaminophen 650 mg tab(s) (TYLENOL) 650 mg ORAL q 6 H PRN albuterol 2.5 mg /3 mL (0.083 %) 2.5 mg (PROVENTIL) 2.5 mg INHALATION q 2 H PRN aminocaproic acid 10 g in NaCl 0.9% 250 mL (AMicAR) 1 g/hr INTRAVENOUS ONE TIME amiodarone 200 mg tab(s) (PACERONE) 200 mg ORAL TID [START ON 04/22/2018] amiodarone 200 mg tab(s) (PACERONE) 200 mg ORAL BID [START ON 04/27/2018] amiodarone 200 mg tab(s) (PACERONE) 200 mg ORAL DAILY aspirin 162 mg chewable tab(s) 162 mg ORAL DAILY atorvastatin 10 mg tab(s) (LIPITOR) 10 mg ORAL AT BEDTIME bisacodyl 10 mg suppository (DULCOLAX) 10 mg RECTAL DAILY PRN dextrose 40 % 15 g 15 g ORAL PRN dextrose 50% in water 25 mL syringe 12.5 g INTRAVENOUS PRN enoxaparin 40 mg injection (LOVENOX) 40 mg SUBCUTANEOUS DAILY gabapentin 200 mg cap(s) (NEURONTIN) 200 mg ORAL AT BEDTIME glucagon 1 mg injection (GLUCAGEN) 1 mg INTRAMUSCULAR PRN insulin lispro pen (rapid acting) (HumaLOG KWIKPEN) SUBCUTANEOUS w MEALS AND HS magnesium sulfate in water 2 g in sterile water 50 ml 2 g INTRAVENOUS PRN(NO DISPENSE) morphine 2-4 mg injection 2-4 mg INTRAVENOUS q 3 H PRN NaCl 0.9% iv infusion 5-30 mL/hr INTRAVENOUS CONTINUOUS NORepinephrine 16 mg in D5W 250 mL (LEVOPHED) 0.6-30 mcg/min INTRAVENOUS CONTINUOUS ondansetron (PF) 4 mg injection (ZOFRAN) 4 mg INTRAVENOUS q 6 H PRN oxyCODONE-acetaminophen 5-325 mg 1-2 tablet (PERCOCET) 1-2 tablet ORAL q [address] 40 mg tab(s) (PROTONIX) 40 mg ORAL DAILY (6 AM) perflutren lipid microspheres 1.1 mg/mL 1.3 mL injection (DEFINITY) 1.3 mL INTRAVENOUS DIRECTED PRN polyethylene glycol 3350 17 g packet (MIRALAX, GLYCOLAX) 17 g ORAL DAILY potassium chloride iv piggyback 20 mEq/100 mL 20 mEq INTRAVENOUS PRN pramipexole 0.25 mg tab(s) (MIRAPEX) 0.25 mg ORAL AT BEDTIME senna-docusate 8.6-50 mg 1 tablet (SENNA-S) 1 tablet ORAL BID warfarin 1 mg tab(s) (COUMADIN) 1 mg ORAL ONCE - WARFARIN warfarin dose per INR - Call physician daily for dose ORAL DAILY - WARFARIN NUTRITION: Enteral Feeds: No DATA: BLOOD GAS: Recent Labs 04/16/18 1350 04/16/18 1119 04/16/18 1051 04/16/18 1018 04/16/18 0953 04/16/18 0947 04/16/18 0921 04/16/18 0858 RESPHCO3 23.6 -- -- -- -- -- -- -- PH 7.346* 7.398 7.383 7.385 7.290* 7.328* 7.336* 7.357 PCO2 44.1 -- -- -- -- -- -- -- [id number] 99.2* -- -- -- -- -- -- -- CBC: Recent Labs 04/18/18 0410 04/17/18 0315 04/16/18 1350 04/16/18 1119 04/16/18 1051 04/16/18 1018 04/16/18 0953 04/16/18 0947 WBC 16.29* 17.54* 8.74 -- -- -- -- -- HB 7.2* 9.0* 10.4* -- -- -- -- -- HCT 21.9* 27.5* 30.1* 23* 24* 24* 24* 24* PLT 103* 184 126* -- -- -- -- -- MCV 92.8 92.3 89.3 -- -- -- -- -- COAG: Recent Labs 04/18/18 0410 04/17/18 0315 04/16/18 1350 04/16/18 0727 APTT -- -- 29.1 -- INR 1.36* 1.17 1.26 1.05 BMP: Recent Labs 04/18/18 0410 04/17/18 0315 04/16/18 1350 04/16/18 1119 04/16/18 1051 04/16/18 1018 04/16/18 0953 04/16/18 0947 GLUC 105* 129* 78 -- -- -- -- -- NA 138 147* 145 143 141 140 139 138 K 4.1 3.9 3.2* 3.4* 3.5 3.7 3.7 4.1 CHLOR 112* 120* 115* -- -- -- -- -- CO2 19* 16* 23 -- -- -- -- -- ANION 11 15 10 -- -- -- -- -- BUN 19* 15 15 -- -- -- -- -- CREAT 0.92 0.96* 0.88 -- -- -- -- -- CHEM: Recent Labs 04/18/18 0410 04/17/18 0315 04/16/18 1350 CA 7.3* 6.5* 7.2* MG 2.4 1.8 2.4 HEPATIC: No results for input(s): ALKPHOS, ALT, AST, TBILI, LIPASE in the last 168 hours. URINALYSIS: Recent Labs 04/16/18 1350 04/16/18 1119 04/16/18 1051 04/16/18 1018 04/16/18 0953 04/16/18 0947 04/16/18 0921 04/16/18 0858 PH 7.346* 7.398 7.383 7.385 7.290* 7.328* 7.336* 7.357 CARDIAC: No results for input(s): CKTEST, CKMB, CKMBP, TROPT, PBNP in the last 168 hours. MEERA 04/16/2018 LV fx is normal. RV fx is normal. RVSP est 25 mmHg Severe MS. CXR 04/16/2018 Small left pleural effusion. Anticoagulant AND Antiplatelet Medications Start Dose Route Frequency Ordered Stop 04/18/18 1700 warfarin 1 mg tab(s) (COUMADIN) 1 mg ORAL ONCE - WARFARIN 04/18/18 1210 04/19/18 0459 04/17/18 0900 aspirin 162 mg chewable tab(s) 162 mg ORAL DAILY 04/16/18 1346 -- 04/16/18 1500 enoxaparin 40 mg injection (LOVENOX) (Surgical High Risk ) 40 mg SUBCUTANEOUS DAILY 04/16/18 1346 -- 04/16/18 1400 pneumatic compression stockings ([place]) 04/16/18 1400 graduated compression stockings ([place]) 04/16/18 1400 activity - mobilize patient ([place]) VTE Prophylaxis: VTE prophylaxis appropriate Assessment/Plan IMPRESSION: # Acute anticipated post op respiratory Insufficiency # Acute anticipated post op vasoplegia -> still requiring pressor support but less than yesterday # S/P MVR, maze procedure, and ligation of atrial appendage 04/16/2018 # Afib # Hypokalemia Critical Care Documentation: The patient has the following organ/system impairment(s): S/P MVR and Maze procedure. PLAN: -WeanO2 - Wean pressors as able - Pain control - S/P MVR per CVTS - Afib -. Resume home meds of coumadin, metoprolol, digoxin and amiodarone per Dr De Los Santos. - Probably still needs time to correct vasoplegia. Patient/Family Updated: PROGNOSIS: Good Code status: Full Discussed plan w/ Registered Nurse,Pt. SIGNATURE: Adiel Villagran MD [facility] PAGER:[phone] DATE of SERVICE: April 18, 2018 TIME of SERVICE: 12:59 PM PROGRESS Observed: 04/18/2018 Status: COMPLETED Source: [place] 9:04 AM CLINIC OTHER CAMPUS REPOSITORY HNO ID: [id number] Author: Colby Simon Service: Cardiovascular Medicine Author Type: Physician Type: Progress Notes Filed: 04/18/2018 11:48 AM Note Text: CARDIOTHORACIC SURGERY POSTOP PROGRESS NOTE SERVICE DATE: 04/18/2018 SERVICE TIME: 9:04 AM Subjective S/P SURGERY: Procedure(s) (LRB): REPLACEMENT MITRAL VALVE W/ CARDIOPULMONARY BYPASS (N/A) MODIFIED MAZE DONE W/ VALVE REPLACEMENT (N/A) LIGATION OF ATRIAL APPENDAGE (N/A) DATE OF SURGERY: 04/16/2018 POSTOP DAY #2 LOS: 2 INTERVAL EVENTS / PERTINENT ROS: Pain controlled. Denies SOB. UOP low and on low dose Levo drip again. Objective Admission Weight: 64.4 kg (141 lb 15.6 oz) BP (!) 105/27 Pulse 77 Temp 37.5 ?C (99.5 ?F) (Core) Resp 24 Ht 157.5 cm (5' 2.01) Wt 73.2 kg (161 lb 6 oz) SpO2 96% BMI 29.51 kg/m? Body surface area is 1.79 meters squared. Min/Max/Average Temperature AND Blood Pressure: Temp (24hrs), Av.9 ?C (98.4 ?F), Min:36.4 ?C (97.5 ?F), Max:37.5 ?C (99.5 ?F) Systolic (24hrs), Av , Min:105 , Max:109 Diastolic (24hrs), Av, Min:27, Max:45 Intake/Output Summary (Last 24 hours) at 04/18/18 0904 Last data filed at 04/18/18 0900 Gross per 24 hour Intake 3376 ml Output 831 ml Net 2545 ml Current Facility-Administered Medications: - acetaminophen 650 mg tab(s) (TYLENOL) - albuterol 2.5 mg /3 mL (0.083 %) 2.5 mg (PROVENTIL) - aminocaproic acid 10 g in NaCl 0.9% 250 mL (AMicAR) - amiodarone 200 mg tab(s) (PACERONE) - [START ON 04/22/2018] amiodarone 200 mg tab(s) (PACERONE) - [START ON 04/27/2018] amiodarone 200 mg tab(s) (PACERONE) - aspirin 162 mg chewable tab(s) - bisacodyl 10 mg suppository (DULCOLAX) - dextrose 50% in water 25 mL syringe - enoxaparin 40 mg injection (LOVENOX) - EPINEPHrine 4 mg in D5W 250 mL - insulin regular human iv bolus 10 Units - insulin regular iv infusion 250 units in NaCl 0.9% 250 mL - AK CARD SURG NOMOGRAM - magnesium sulfate in water 2 g in sterile water 50 ml - morphine 2-4 mg injection - NaCl 0.9% iv infusion - NORepinephrine 16 mg in D5W 250 mL (LEVOPHED) - ondansetron (PF) 4 mg injection (ZOFRAN) - oxyCODONE-acetaminophen 5-325 mg 1-2 tablet (PERCOCET) - pantoprazole DR 40 mg tab(s) (PROTONIX) - polyethylene glycol 3350 17 g packet (MIRALAX, GLYCOLAX) - potassium chloride iv piggyback 20 mEq/100 mL - senna-docusate 8.6-50 mg 1 tablet (SENNA-S) - warfarin dose per INR - Call physician daily for dose TELEMETRY: normal sinus rhythm PHYSICAL EXAM: General Appearance: well developed, no distress and up in chair Skin: Midsternal incision dry AND intact. Lungs: decreased breath sounds, respiratory effort: normal and LLL diminished Heart: regular rhythm, S1, S2 normal and pacing wires present Abdomen: soft, non-tender and bowel sounds present Genitourinary: [place] intact, urine color is clear yellow Extremities: edema: 1+, bilateral hands Chest tubes intact to -20cm suction with serosanguinous output Lines, Drains, and Airways Line Arterial Line 04/16/18 0806 Arterial Line Left Radial 2 days Central Line Quadruple Lumen 04/16/18 0838 Non-tunneled Right Neck 2 days Peripheral 04/16/18 0730 Right Hand 18 Gauge 2 days Drain Indwelling Urinary Catheter 04/16/18 0815 Temperature Monitoring 16 Fr 2 days Chest Tube 04/16/18 1245 32 Fr 1 day Chest Tube 04/16/18 1245 32 Fr Tube #1 1 day Chest Tube 04/16/18 1245 32 Fr Tube #2 1 day DATA: Diagnostic tests reviewed for today's visit: Recent Labs 04/18/18 0410 04/17/18 0315 04/16/18 1350 RBC 2.36* 2.98* 3.37* WBC 16.29* 17.54* 8.74 HB 7.2* 9.0* 10.4* HCT 21.9* 27.5* 30.1* PLT 103* 184 126* INR 1.36* 1.17 1.26 APTT -- -- 29.1 NA 138 147* 145 K 4.1 3.9 3.2* CHLOR 112* 120* 115* CO2 19* 16* 23 BUN 19* 15 15 CREAT 0.92 0.96* 0.88 GLUC 105* 129* 78 CA 7.3* 6.5* 7.2* MG 2.4 1.8 2.4 ANION 11 15 10 Recent Labs 04/16/18 1350 04/16/18 1119 04/16/18 1051 04/16/18 1018 PH 7.346* 7.398 7.383 7.385 PCO2 44.1 -- -- -- PO2 231.5* 302.0* 299.0* 318.0* BE -2.1 -- -- -- HCO3 -- 22.4 22.8 23.1 Assessment/Plan Symptomatic severe mitral stenosis s/p MVR with a 29-mm St. Zenon bioprosthetic valve -POD#2 -dc [place]; keep central line AND tory for close hemodynamic monitoring while on pressors -[place] for accurate IANDOs AND low UOP; dc later today. -EF 55% preop -c/w ASA AND Coumadin. ? Anticipated hypotension/vasoplegia s/p CTS -On Levo; wean as able to keep SBP>100 -Appears hypervolemic today ? Paroxysmal atrial fibrillation s/p MAZE procedure AND exclusion of OLGA with atrial clip -POD#2 -c/w Amiodarone PO with taper schedule -c/w Coumadin; monitor INR daily -Keep K>4 and Mag >2 ? Anticipated acute pulmonary insufficiency s/p CTS -Wean O2 -IS and CANDDB ? Hyperglycemia -stress-induced -c/w Insulin drip while on pressors. Will change to SSI once off pressors and tolerating PO diet. ? Leukocytosis -likely reactive -monitor trends ? Anticipated acute blood loss anemia -No transfusion since Hgb >7 -Monitor -No active bleeding noted currently ? DVT ppx -Lovenox and SCDs -Will dc lovenox once INR is therapeutic Tests/Labs Ordered: 1. Chest X-ray 2. BMP 3. CBC SIGNATURE: Josefina Goodman APRN.TOM PATIENT NAME: Gloria Mathew DATE: April 18, 2018 TIME: 9:04 AM PAGER/CONTACT #: [phone] ETX [id number] For [facility] Patient seen with TUNNELLER this AM. Labs, data, cxr, and careplan reviewed. P-as ordered. CHEST 1 VIEW Observed: 04/18/2018 Status: F Source: [facility] 5:50 AM HEALTH SYSTEM REPOSITORY Performed at [facility] APPROVED BY: MALIA LUZ MD X-RAY CHEST (1 VIEW) History: Post-operative / post-procedure assessment, asymptomatic Comparison: none RESULT: 1. Lines, Tubes, and Devices: Bilateral chest tubes. [place]- Joe catheter. Left atrial appendage clip. 2. Lungs and Pleura: Bibasilar atelectasis. Small left pleural effusion. 3. Cardiomediastinal silhouette: Stable cardiomediastinal contours. Sternotomy wires. 4. Other: No acute osseous abnormality. IMPRESSION: Bibasilar atelectasis. Small left pleural effusion.. O2% MEASURED VENOUS Collected: 04/18/2018 Status: F Source: [facility] 4:10 AM HEALTH SYSTEM REPOSITORY TYPE CODE TESTS RESULT OUT OF REFERENCE UNITS RANGE LAB O2%MV(LOINC 70.0-80.0 % ) Low O2% Measured 58.7 Venous Performed By: #### O2%MV #### [place] [id number] BASIC PANEL Collected: 04/18/2018 Status: F Source: [facility] 4:10 AM HEALTH SYSTEM REPOSITORY TYPE CODE TESTS RESULT OUT OF REFERENCE UNITS RANGE LAB NA(LOINC) 136-145 mEq/L Sodium Blood 138 LAB K(LOINC) 3.5-5.1 mEq/L Potassium Blood 4.1 LAB CL(LOINC) 98-107 mEq/L Chloride High Blood 112 LAB CO2(LOINC) 21-32 mEq/L Low CO2 Blood 19 LAB GLU(LOINC) 70-99 mg/dL Glucose High Blood 105 LAB BUN(LOINC) 7-18 mg/dL BUN High Blood 19 LAB CREA(LOINC 0.51-0.95 mg/dL ) Creatinine Blood 0.92 LAB CA(LOINC) 8.5-10.1 mg/dL Low Calcium Blood 7.3 LAB ANGAP(LOIN 8-16 C) Anion Gap 11 Performed By: #### P8 #### [place] [id number] MAGNESIUM BLOOD Collected: 04/18/2018 Status: F Source: [facility] 4:10 AM HEALTH SYSTEM REPOSITORY TYPE CODE TESTS RESULT OUT OF REFERENCE UNITS RANGE LAB MAG(LOINC) 1.6-2.6 mg/dL Magnesium Blood 2.4 Performed By: #### MAG #### [facility] [address] [place] [id number] PROTIME Collected: 04/18/2018 Status: F Source: [facility] 4:10 AM HEALTH SYSTEM REPOSITORY TYPE CODE TESTS RESULT OUT OF REFERENCE UNITS RANGE LAB PTI(LOINC) 9.7-13.0 sec Prothrombin High Time 13.8 LAB INR(LOINC) 0.90-1.30 INR High 1.36 Result Comment: Note: Reference Range Change Vitamin K Antagonist (VKA) Therapeutic Range: INR 2 to 3 (Target INR of 2.5) Note: For patients treated with VKA drugs, such as warfarin, the [employer] 2012 Guideline recommends a therapeutic INR range of 2 to 3 (target INR of 2.5). This recommendation includes high-risk patients with antiphospholipid syndrome with previous arterial or venous thromboembolism, current-generation mechanical or bioprosthetic aortic heart valve replacement. VKA Therapeutic Range for some Mechanical Valve Replacement: INR 2.5 to 3.5 (Target INR of 3) Note: Patients with mechanical aortic valve replacement and additional risk factors for thromboembolic events (atrial fibrillation, previous thromboembolism, LV dysfunction, hypercoagulable conditions) or an older generation mechanical AVR (i.e., ball in-Cage) or any mechanical MVR should have a INR therapeutic range of 2.5 to 3.5 target INR of 3). Nathanael GH, et al. Chest 2012; 141:7S-47S Marbella RA et al. [facility] 2017; 70: 252-289 Performed By: #### PT #### [facility] [address] [place] [id number] HEMOGRAM Collected: 04/18/2018 Status: F Source: [facility] 4:10 AM HEALTH SYSTEM REPOSITORY TYPE CODE TESTS RESULT OUT OF REFERENCE UNITS RANGE LAB WBC(LOINC) 3.98-10.04 thou/cmm WBC High 16.29 LAB RBC(LOINC) 3.93-5.22 mil/cmm Low RBC 2.36 LAB HGB(LOINC) 11.2-15.7 g/dL Low Hgb 7.2 LAB HCT(LOINC) 34.1-44.9 % Low Hct 21.9 LAB MCV(LOINC) 79.4-94.8 fl MCV 92.8 LAB MCH(LOINC) 25.6-32.2 pg MCH 30.5 LAB MCHC(LOINC 31.6-34.8 % ) MCHC 32.9 LAB RDW(LOINC) 11.7-14.4 % RDW High 14.9 LAB RDWSD(LOIN 36.4-46.3 fl C) RDW High SD 50.1 LAB PLT(LOINC) 182-369 thou/cmm Low Platelet 103 LAB MPV(LOINC) 9.4-12.3 fl MPV 10.1 LAB NRBCR(LOIN 0.0-0.2 % C) Nucleated RBC % 0.1 LAB NRBCA(LOIN 0.00-0.01 thou/cmm C) High Nucleated RBC 0.02 Absolute Performed By: #### CBC1 #### [place] [id number] PROGRESS Observed: 04/17/2018 Status: COMPLETED Source: [place] 12:35 PM CLINIC OTHER CAMPUS REPOSITORY O ID: [id number] Author: Adiel Villagran Service: Critical Care Author Type: Physician Type: Progress Notes Filed: 04/17/2018 12:41 PM Note Text: CRITICAL CARE PROGRESS NOTE SERVICE DATE: April 17, 2018 SERVICE TIME: 12:35 PM Admission Date: 04/16/2018 AGE: [age] year old LOS: 1 days REASON FOR ICU ADMISSION: S/P MVR and Maze procedure 04/16/2018 Subjective Pt is a 77yo WF s/p MVR and Maze procedure. She has a PMH significant for Afib. She was on Metoprolol and coumadin for her afib. She is a life long nonsmoker. OVERNIGHT EVENTS: NA Objective PAST MEDICAL HISTORY Diagnosis Date - Breast mass, right - IBS (irritable bowel syndrome) - Mitral valve regurgitation - Mitral valve stenosis - Pulmonary HTN (HCC) - Tricuspid regurgitation PAST SURGICAL HISTORY Procedure Laterality Date - BREAST BIOPSY - CHOLECYSTECTOMY HX 10/02/2011 - HYSTERECTOMY HX MARYELLEN/BLO - LEG SURGERY HX Social History Marital status: Spouse name: Years of education: Number of children: Social History Main Topics Smoking status: Never Smoker Smokeless tobacco: Never Used Alcohol use: No Drug use: No Other Topics Concern Caffeine Concern No Special Diet No Comment:average Exercise No Comment:sedentary VITAL SIGNS: BP (!) 80/35 Pulse 93 Temp 36.7 ?C (98.1 ?F) Resp 19 Ht 157.5 cm (5' 2.01) Wt 70 kg (154 lb 5.2 oz) SpO2 100% BMI 28.22 kg/m? Temp (24hrs), Av.6 ?C (99.7 ?F), Min:36.3 ?C (97.3 ?F), Max:39 ?C (102.2 ?F) Currently requiring levophed 12 mcg/min to maintain MAP of 65 Pulse ox 100% on 4 Lpm nasal cannula. Vital signs reviewed. 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 Eyes: PER Neck: Unremarkable; No adenopathy or JVD Cardiovascular: Regular rhythm, sternal incision is C/D/I. Respiratory: Clear to auscultation Abdomen: Soft and Nontender Extremities: Edema- No. SCD applied. Skin: Abnormalities- No : [place] w/ clear yellow urine. VENTILATOR INFORMATION: off vent now. INDWELLING CATHETERS: Lines, Drains, and Airways Line Arterial Line 04/16/18 0806 Arterial Line Left Radial 1 day Central Line Quadruple Lumen 04/16/18 0838 Non-tunneled Right Neck 1 day Peripheral 04/16/18 0730 Right Hand 18 Gauge 1 day Drain Indwelling Urinary Catheter 04/16/18 0815 Temperature Monitoring 16 Fr 1 day Chest Tube 04/16/18 1245 32 Fr less than 1 day Chest Tube 04/16/18 1245 32 Fr Tube #1 less than 1 day Chest Tube 04/16/18 1245 32 Fr Tube #2 less than 1 day INPATIENT MEDICATIONS: Current hospital medications: acetaminophen 650 mg tab(s) (TYLENOL) 650 mg ORAL q 6 H PRN albumin (5%) 12.5 g infusion 12.5 g INTRAVENOUS ONCE albuterol 2.5 mg /3 mL (0.083 %) 2.5 mg (PROVENTIL) 2.5 mg INHALATION q 2 H PRN aminocaproic acid 10 g in NaCl 0.9% 250 mL (AMicAR) 1 g/hr INTRAVENOUS ONE TIME amiodarone 200 mg tab(s) (PACERONE) 200 mg ORAL TID [START ON 04/22/2018] amiodarone 200 mg tab(s) (PACERONE) 200 mg ORAL BID [START ON 04/27/2018] amiodarone 200 mg tab(s) (PACERONE) 200 mg ORAL DAILY aspirin 162 mg chewable tab(s) 162 mg ORAL DAILY [START ON 04/18/2018] bisacodyl 10 mg suppository (DULCOLAX) 10 mg RECTAL DAILY PRN ceFAZolin iv piggyback 2 g in D5W (iso-osmotic) 100 mL (ANCEF) 2 g INTRAVENOUS q 6 HR dextrose 50% in water 25 mL syringe 12.5 g INTRAVENOUS PRN enoxaparin 40 mg injection (LOVENOX) 40 mg SUBCUTANEOUS DAILY EPINEPHrine 4 mg in D5W 250 mL 0.5-10 mcg/min INTRAVENOUS CONTINUOUS insulin regular human iv bolus 10 Units 10 Units INTRAVENOUS PRN insulin regular iv infusion 250 units in NaCl 0.9% 250 mL - AK CARD SURG NOMOGRAM 0-12 Units/hr INTRAVENOUS CONTINUOUS magnesium sulfate in water 2 g in sterile water 50 ml 2 g INTRAVENOUS PRN(NO DISPENSE) morphine 2-4 mg injection 2-4 mg INTRAVENOUS q 3 H PRN NaCl 0.9% iv infusion 5-30 mL/hr INTRAVENOUS CONTINUOUS NORepinephrine 16 mg in D5W 250 mL (LEVOPHED) 0.6-30 mcg/min INTRAVENOUS CONTINUOUS ondansetron (PF) 4 mg injection (ZOFRAN) 4 mg INTRAVENOUS q 6 H PRN oxyCODONE-acetaminophen 5-325 mg 1-2 tablet (PERCOCET) 1-2 tablet ORAL q 4 H PRN [START ON 04/18/2018] pantoprazole DR 40 mg tab(s) (PROTONIX) 40 mg ORAL DAILY (6 AM) [START ON 04/18/2018] polyethylene glycol 3350 17 g packet (MIRALAX, GLYCOLAX) 17 g ORAL DAILY potassium chloride iv piggyback 20 mEq/100 mL 20 mEq INTRAVENOUS PRN [START ON 04/18/2018] senna-docusate 8.6-50 mg 1 tablet (SENNA- S) 1 tablet ORAL BID vancomycin iv piggyback 1 g in D5W 200 mL (VANCOCIN) 1 g INTRAVENOUS q 12 HR warfarin 5 mg tab(s) (COUMADIN) 5 mg ORAL ONCE - WARFARIN warfarin dose per INR - Call physician daily for dose ORAL DAILY - WARFARIN NUTRITION: Enteral Feeds: No DATA: BLOOD GAS: Recent Labs 04/16/18 1350 04/16/18 1119 04/16/18 1051 04/16/18 1018 04/16/18 0953 04/16/18 0947 04/16/18 0921 04/16/18 0858 RESPHCO3 23.6 -- -- -- -- -- -- -- PH 7.346* 7.398 7.383 7.385 7.290* 7.328* 7.336* 7.357 PCO2 44.1 -- -- -- -- -- -- -- [id number] 99.2* -- -- -- -- -- -- -- CBC: Recent Labs 04/17/1831404/16/18 1350 04/16/18 1119 04/16/18 1051 04/16/18 1018 04/16/18 0953 04/16/18 0947 04/16/18 0921 WBC 17.54* 8.74 -- -- -- -- -- -- HB 9.0* 10.4* -- -- -- -- -- -- HCT 27.5* 30.1* 23* 24* 24* 24* 24* 28* PLT 184 126* -- -- -- -- -- -- MCV 92.3 89.3 -- -- -- -- -- -- COAG: Recent Labs 04/17/18 0315 04/16/18 1350 04/16/18 0727 APTT -- 29.1 -- INR 1.17 1.26 1.05 BMP: Recent Labs 04/17/18 0315 04/16/18 1350 04/16/18 1119 04/16/18 1051 04/16/18 1018 04/16/18 0953 04/16/18 0947 04/16/18 0921 GLUC 129* 78 -- -- -- -- -- -- NA 147* 145 143 141 140 139 138 141 K 3.9 3.2* 3.4* 3.5 3.7 3.7 4.1 2.9* CHLOR 120* 115* -- -- -- -- -- -- CO2 16* 23 -- -- -- -- -- -- ANION 15 10 -- -- -- -- -- -- BUN 15 15 -- -- -- -- -- -- CREAT 0.96* 0.88 -- -- -- -- -- -- CHEM: Recent Labs 04/17/18 0315 04/16/18 1350 CA 6.5* 7.2* MG 1.8 2.4 HEPATIC: No results for input(s): ALKPHOS, ALT, AST, TBILI, LIPASE in the last 168 hours. URINALYSIS: Recent Labs 04/16/18 1350 04/16/18 1119 04/16/18 1051 04/16/18 1018 04/16/18 0953 04/16/18 0947 04/16/18 0921 04/16/18 0858 PH 7.346* 7.398 7.383 7.385 7.290* 7.328* 7.336* 7.357 CARDIAC: No results for input(s): CKTEST, CKMB, CKMBP, TROPT, PBNP in the last 168 hours. MEERA 04/16/2018 LV fx is normal. RV fx is normal. RVSP est 25 mmHg Severe MS. CXR 04/16/2018 Small left pleural effusion. Anticoagulant AND Antiplatelet Medications Start Dose Route Frequency Ordered Stop 04/17/18 1700 warfarin 5 mg tab(s) (COUMADIN) 5 mg ORAL ONCE - WARFARIN 04/17/18 1206 04/18/18 0459 04/17/18 0900 aspirin 162 mg chewable tab(s) 162 mg ORAL DAILY 04/16/18 1346 -- 04/16/18 1500 enoxaparin 40 mg injection (LOVENOX) (Surgical High Risk ) 40 mg SUBCUTANEOUS DAILY 04/16/18 1346 -- 04/16/18 1400 pneumatic compression stockings ([place]) 04/16/18 1400 graduated compression stockings ([place]) 04/16/18 1400 activity - mobilize patient ([place]) VTE Prophylaxis: VTE prophylaxis appropriate Assessment/Plan IMPRESSION: # Acute anticipated post op respiratory Insufficiency # Acute anticipated post op vasoplegia -> requiring pressor support # S/P MVR, maze procedure, and ligation of atrial appendage pOD 1 # Afib # Hypokalemia Critical Care Documentation: The patient has the following organ/system impairment(s): S/P MVR and Maze procedure. PLAN: -WeanO2 - Wean pressors as able - Pain control - S/P MVR per CVTS - Afib -. Resume home meds of coumadin, metoprolol, digoxin and amiodarone per Dr De Los Santos. - Replace K+ This patient has a high probability of sudden, clinically significant deterioration, which requires the highest level of physician preparedness to intervene urgently. I managed/supervised life or organ supporting interventions that required frequent physician assessment. I devoted my full attention to the direct care of this patient for the amount of time indicated below. Time I spent with family or surrogate(s) is included only if the patient was incapable of providing the necessary information or participating in medical decision making. Time devoted to teaching and to any procedures I billed separately is not included. Patient/Family Updated: PROGNOSIS: Good Code status: Full Discussed plan w/ Registered Nurse,Pt. SIGNATURE: Adiel Villagran MD [facility] PAGER:[phone] DATE of SERVICE: April 17, 2018 TIME of SERVICE: 12:35 PM PROGRESS Observed: 04/17/2018 Status: COMPLETED Source: [place] 11:51 AM CLINIC OTHER CAMPUS REPOSITORY O ID: [id number] Author: Colby Simon Service: Cardiovascular Medicine Author Type: Physician Type: Progress Notes Filed: 04/17/2018 3:52 PM Note Text: CARDIOTHORACIC SURGERY POSTOP PROGRESS NOTE SERVICE DATE: 04/17/2018 SERVICE TIME: 11:51 AM Subjective S/P SURGERY: Procedure(s) (LRB): REPLACEMENT MITRAL VALVE W/ CARDIOPULMONARY BYPASS (N/A) MODIFIED MAZE DONE W/ VALVE REPLACEMENT (N/A) LIGATION OF ATRIAL APPENDAGE (N/A) DATE OF SURGERY: 04/16/2018 POSTOP DAY #1 LOS: 1 INTERVAL EVENTS / PERTINENT ROS: Pain controlled. Denies SOB. On Levo. Epi AND Manuel weaned off. Objective Admission Weight: 64.4 kg (141 lb 15.6 oz) BP (!) 80/35 Pulse 92 Temp 37.9 ?C (100.2 ?F) Resp 28 Ht 157.5 cm (5' 2.01) Wt 70 kg (154 lb 5.2 oz) SpO2 98% BMI 28.22 kg/m? Body surface area is 1.75 meters squared. Min/Max/Average Temperature AND Blood Pressure: Temp (24hrs), Av.7 ?C (99.8 ?F), Min:36.3 ?C (97.3 ?F), Max:39 ?C (102.2 ?F) Systolic (24hrs), Av , Min:80 , Max:80 Diastolic (24hrs), Av, Min:35, Max:35 Intake/Output Summary (Last 24 hours) at 04/17/18 1151 Last data filed at 04/17/18 1000 Gross per 24 hour Intake 4657 ml Output 2242 ml Net 2415 ml Current Facility-Administered Medications: - acetaminophen 650 mg tab(s) (TYLENOL) - albumin (5%) 12.5 g infusion - albuterol 2.5 mg /3 mL (0.083 %) 2.5 mg (PROVENTIL) - aminocaproic acid 10 g in NaCl 0.9% 250 mL (AMicAR) - amiodarone 200 mg tab(s) (PACERONE) - [START ON 04/22/2018] amiodarone 200 mg tab(s) (PACERONE) - [START ON 04/27/2018] amiodarone 200 mg tab(s) (PACERONE) - aspirin 162 mg chewable tab(s) - [START ON 04/18/2018] bisacodyl 10 mg suppository (DULCOLAX) - ceFAZolin iv piggyback 2 g in D5W (iso-osmotic) 100 mL (ANCEF) - dexmedetomidine 400 mcg in NaCl 0.9% 100 mL (PRECEDEX) - dextrose 50% in water 25 mL syringe - enoxaparin 40 mg injection (LOVENOX) - EPINEPHrine 4 mg in D5W 250 mL - insulin regular human iv bolus 10 Units - insulin regular iv infusion 250 units in NaCl 0.9% 250 mL - AK CARD SURG NOMOGRAM - magnesium sulfate in water 2 g in sterile water 50 ml - midazolam (PF) 2 mg injection (VERSED) - morphine 2-4 mg injection - NaCl 0.9% iv infusion - NORepinephrine 16 mg in D5W 250 mL (LEVOPHED) - ondansetron (PF) 4 mg injection (ZOFRAN) - oxyCODONE-acetaminophen 5-325 mg 1-2 tablet (PERCOCET) - pantoprazole 40 mg injection (PROTONIX) - [START ON 04/18/2018] polyethylene glycol 3350 17 g packet (MIRALAX, GLYCOLAX) - potassium chloride iv piggyback 20 mEq/100 mL - [START ON 04/18/2018] senna-docusate 8.6-50 mg 1 tablet (SENNA-S) - vancomycin iv piggyback 1 g in D5W 200 mL (VANCOCIN) TELEMETRY: normal sinus rhythm PHYSICAL EXAM: General Appearance: well developed, no distress and up in chair Skin: Midsternal incision dry AND intact., warm and dry Lungs: clear and respiratory effort: normal Heart: regular rhythm, S1, S2 normal and pacing wires present Abdomen: soft, non-tender and bowel sounds present Genitourinary: [place] intact, urine color is clear yellow Extremities: edema: Trace Chest intact to -20 cm suction with serosanguinous output Lines, Drains, and Airways Line Arterial Line 04/16/18 0806 Arterial Line Left Radial 1 day Central Line Quadruple Lumen 04/16/18 0838 Non-tunneled Right Neck 1 day Peripheral 04/16/18 0730 Right Hand 18 Gauge 1 day Drain Indwelling Urinary Catheter 04/16/18 0815 Temperature Monitoring 16 Fr 1 day Chest Tube 04/16/18 1245 32 Fr less than 1 day Chest Tube 04/16/18 1245 32 Fr Tube #1 less than 1 day Chest Tube 04/16/18 1245 32 Fr Tube #2 less than 1 day DATA: Diagnostic tests reviewed for today's visit: Recent Labs 04/17/18 0315 04/16/18 1350 04/16/18 1119 04/16/18 0727 RBC 2.98* 3.37* -- -- -- WBC 17.54* 8.74 -- -- -- HB 9.0* 10.4* -- -- -- HCT 27.5* 30.1* 23* < > -- PLT 184 126* -- -- -- INR 1.17 1.26 -- -- 1.05 APTT -- 29.1 -- -- -- NA 147* 145 143 < > -- K 3.9 3.2* 3.4* < > -- CHLOR 120* 115* -- -- -- CO2 16* 23 -- -- -- BUN 15 15 -- -- -- CREAT 0.96* 0.88 -- -- -- GLUC 129* 78 -- -- -- CA 6.5* 7.2* -- -- -- MG 1.8 2.4 -- -- -- ANION 15 10 -- -- -- < > = values in this interval not displayed. Recent Labs 12//18 1350 12//18 1119 12//18 1051 12//18 1018 PH 7.346* 7.398 7.383 7.385 PCO2 44.1 -- -- -- PO2 231.5* 302.0* 299.0* 318.0* BE -2.1 -- -- -- HCO3 -- 22.4 22.8 23.1 Assessment/Plan Symptomatic severe mitral stenosis s/p MVR with a 29-mm St. Zenon bioprosthetic valve -POD#1 -Vanc/Ancef for surgical prophylaxis -[place], central line, tory for close hemodynamic monitoring while on pressors -[place] for accurate IANDOs; dc later today. -EF 55% preop -c/w ASA. Start Coumadin. Anticipated hypotension/vasoplegia s/p CTS -On Levo; wean as able to keep SBP>100 -Albumin bolus x2 today Paroxysmal atrial fibrillation s/p MAZE procedure AND exclusion of OLGA with atrial clip -POD#1 -Start Amiodarone PO today with taper schedule -Start Coumadin; monitor INR daily -Keep K>4 and Mag >2 Anticipated acute pulmonary insufficiency s/p CTS -Wean O2 -IS and CANDDB Hyperglycemia -stress-induced -c/w insulin drip. -If still requiring high doses of insulin on POD#2, will consult endo Leukocytosis -likely reactive -monitor Anticipated acute blood loss anemia -No transfusion since Hgb >7 -Monitor -No active bleeding noted currently DVT ppx -Lovenox and SCDs -Will dc lovenox once INR is therapeutic Tests/Labs Ordered: 1. Chest X-ray 2. BMP 3. CBC 4. INR SIGNATURE: Josefina Goodman APRN.CNP PATIENT NAME: Gloria Mathew DATE: April 17, 2018 TIME: 11:51 AM PAGER/CONTACT #: [phone] ETX [id number] [facility] Patient seen with TUNNELLER this AM. Labs, data, cxr, and careplan reviewed and d/w bedside nurse as well. P-as ordered. CHEST 1 VIEW Observed: 04/17/2018 Status: F Source: [facility] 5:32 AM HEALTH SYSTEM REPOSITORY Performed at [facility] APPROVED BY: Elijah Rodríguez MD EXAM TITLE: CHEST 1 VIEW DATE: 04/17/2018 05:29 INDICATION: Recent cardiothoracic surgery COMPARISON: 04/16/2018 FINDINGS: Since the previous exam, the ETT and NGT have been withdrawn. There are continued bilateral thoracostomy tubes, mediastinal drain, and [place]-Joe catheter. These appear unchanged. Increasing opacity at the lower lung zones suggests developing atelectasis. Heart is not enlarged and there are sternotomy wires. IMPRESSION: Developing lower lung zone atelectasis after removal of ETT and NGT. HEMOGRAM Collected: 04/17/2018 Status: F Source: [facility] 3:15 AM HEALTH SYSTEM REPOSITORY TYPE CODE TESTS RESULT OUT OF REFERENCE UNITS RANGE LAB WBC(LOINC) 3.98-10.04 thou/cmm WBC High 17.54 LAB RBC(LOINC) 3.93-5.22 mil/cmm Low RBC 2.98 LAB HGB(LOINC) 11.2-15.7 g/dL Low Hgb 9.0 LAB HCT(LOINC) 34.1-44.9 % Low Hct 27.5 LAB MCV(LOINC) 79.4-94.8 fl MCV 92.3 LAB MCH(LOINC) 25.6-32.2 pg MCH 30.2 LAB MCHC(LOINC 31.6-34.8 % ) MCHC 32.7 LAB RDW(LOINC) 11.7-14.4 % RDW 14.3 LAB RDWSD(LOIN 36.4-46.3 fl C) RDW High SD 47.6 LAB PLT(LOINC) 182-369 thou/cmm Platelet 184 LAB MPV(LOINC) 9.4-12.3 fl MPV 10.5 LAB NRBCR(LOIN 0.0-0.2 % C) Nucleated RBC % 0.2 LAB NRBCA(LOIN 0.00-0.01 thou/cmm C) High Nucleated RBC 0.03 Absolute Performed By: #### CBC1 #### [place] [id number] PROTIME Collected: 04/17/2018 Status: F Source: [facility] 3:15 AM HEALTH SYSTEM REPOSITORY TYPE CODE TESTS RESULT OUT OF REFERENCE UNITS RANGE LAB PTI(LOINC) 9.7-13.0 sec Prothrombin Time 12.0 LAB INR(LOINC) 0.90-1.30 INR 1.17 Result Comment: Note: Reference Range Change Vitamin K Antagonist (VKA) Therapeutic Range: INR 2 to 3 (Target INR of 2.5) Note: For patients treated with VKA drugs, such as warfarin, the [place] [employer] 2012 Guideline recommends a therapeutic INR range of 2 to 3 (target INR of 2.5). This recommendation includes high-risk patients with antiphospholipid syndrome with previous arterial or venous thromboembolism, current-generation mechanical or bioprosthetic aortic heart valve replacement. VKA Therapeutic Range for some Mechanical Valve Replacement: INR 2.5 to 3.5 (Target INR of 3) Note: Patients with mechanical aortic valve replacement and additional risk factors for thromboembolic events (atrial fibrillation, previous thromboembolism, LV dysfunction, hypercoagulable conditions) or an older generation mechanical AVR (i.e., ball in-Cage) or any mechanical MVR should have a INR therapeutic range of 2.5 to 3.5 target INR of 3). Nathanael GH, et al. Chest 2012; 141:7S-47S Marbella RA, et al. JACC 2017; 70: 252-289 Performed By: #### PT #### [facility] [address] [place] [id number] BASIC PANEL Collected: 04/17/2018 Status: F Source: [facility] 3:15 AM HEALTH SYSTEM REPOSITORY TYPE CODE TESTS RESULT OUT OF REFERENCE UNITS RANGE LAB NA(LOINC) 136-145 mEq/L Sodium High Blood 147 LAB K(LOINC) 3.5-5.1 mEq/L Potassium Blood 3.9 LAB CL(LOINC) 98-107 mEq/L Chloride High Blood 120 LAB CO2(LOINC) 21-32 mEq/L Low CO2 Blood 16 LAB GLU(LOINC) 70-99 mg/dL Glucose High Blood 129 LAB BUN(LOINC) 7-18 mg/dL BUN Blood 15 LAB CREA(LOINC 0.51-0.95 mg/dL ) High Creatinine Blood 0.96 LAB CA(LOINC) 8.5-10.1 mg/dL Low Calcium Blood 6.5 LAB ANGAP(LOIN 8-16 C) Anion Gap 15 Performed By: #### P8 #### [facility] [address] [place] [id number] MAGNESIUM BLOOD Collected: 04/17/2018 Status: F Source: [facility] 3:15 AM HEALTH SYSTEM REPOSITORY TYPE CODE TESTS RESULT OUT OF REFERENCE UNITS RANGE LAB MAG(LOINC) 1.6-2.6 mg/dL Magnesium Blood 1.8 Performed By: #### MAG #### [facility] [address] [place] [id number] ANES POST Observed: 04/16/2018 Status: COMPLETED Source: [place] 7:51 PM CLINIC OTHER CAMPUS REPOSITORY O ID: [id number] Author: Bharat Cantu Service: Anesthesiology Author Type: Physician Type: Anesthesia PostOp Filed: 04/16/2018 7:51 PM Note Text: POST ANESTHESIA EVALUATION NOTE SERVICE DATE: 04/16/2018 SERVICE TIME: 7:51 PM : 1940 Vitals: 04/16/18 1600 04/16/18 1700 04/16/18 1800 04/16/18 1900 Temp: 37 ?C (98.6 ?F) 37.5 ?C (99.5 ?F) (!) 38 ?C (100.4 ?F) (!) 38 ?C (100.4 ?F) 04/16/18 1600 04/16/18 1615 04/16/18 1700 04/16/18 1800 Arterial BP 1: 98/59 90/54 101/63 85/54 BP: 04/16/18 1615 04/16/18 1630 04/16/18 1700 04/16/18 1800 Pulse: 81 91 94 95 04/16/18 1615 04/16/18 1630 04/16/18 1700 04/16/18 1800 Resp: 16 24 19 19 04/16/18 1615 04/16/18 1630 04/16/18 1700 04/16/18 1800 SpO2: 100% 100% 99% 100% Validated Vital Signs: Yes POST ANES STATUS: PACU/ICU Patient Condition: Stable Neurological Status: Awake AND alert. Pulmonary Status: Breathing comfortably on supplemental oxygen. Airway Control: Returned to baseline unsupported. Cardiovascular Status: Stable Pain: Adequately controlled Postoperative Nausea/Vomiting: No significant post operative nausea or vomiting Postoperative Hydration Status: Adequate. Intra-Operative Events: No Significant Anesthesia Events Anesthetic Complications: None Recommendation: Further care per PACU/ICU/Floor team Other Remarks: SIGNATURE: Bharat Cantu DO PATIENT NAME: Gloria Mathew DATE: April 16, 2018 TIME: 7:51 PM PAGER/CONTACT #: [phone] BRIEF OP NOT Observed: 04/16/2018 Status: COMPLETED Source: [place] 6:16 PM CLINIC OTHER CAMPUS REPOSITORY O ID: [id number] Author: Gui De Los Santos Service: Cardiac Surgery Author Type: Physician Type: Brief Op Note Filed: 04/16/2018 6:22 PM Note Text: CARDIOTHORACIC BRIEF OP NOTE LOG ID: [id number] SURGERY/PROCEDURE DATE: 04/16/2018 INCISION/PROCEDURE START TIME: 9:07 AM INCISION CLOSE/PROCEDURE END TIME: 1:34 PM SURGEON(S) AND BOARDMARKER(S): Surgeon(s) and Role: * Gui De Los Santos - Primary Physician Information Tech: Oj Swartz (Pa) Hand Coremaker: Ashley Sandoval SA PROCEDURES AND ANESTHESIA: Procedure(s) and Anesthesia Type: * REPLACEMENT MITRAL VALVE W/ CARDIOPULMONARY BYPASS - General * MODIFIED MAZE DONE W/ VALVE REPLACEMENT - General * LIGATION OF ATRIAL APPENDAGE - General MVR ([address] [employer] Epic bio); maze procedure (left and right atrial lesion sets with radiofrequency and cryo); exclusion of left atrial appendage with 45 mm Atricure clip ANESTHESIA: General BRIEF FINDINGS: preop: moderate PA hypertension; severe MS; normal LV function; left atrial enlargement; no thrombus OLGA intra op: 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; fusion of anterolateral commisure; foreshortening of subvalvar apparatus; enlarged LA post op: normally functioning MV prosthesis with no perivalvular leak; normal LV and RV function;no outflow tract obstruction; improved PA pressures; completely excluded OLGA PREOPERATIVE DIAGNOSIS: atrial fibrillation and mitral stenosis POSTOPERATIVE DIAGNOSIS: atrial fibrillation and mitral stenosis ESTIMATED BLOOD LOSS: 250 ml SPECIMENS: resected portions of MV COMPLICATIONS: None SIGNATURE: Gui De Los Santos MD PATIENT NAME: Gloria Mathew DATE: April 16, 2018 TIME: 6:17 PM PAGER/CONTACT #: [phone] CASE MGT INIT Observed: 04/16/2018 Status: COMPLETED Source: [facility] 3:56 PM CLINIC OTHER CAMPUS REPOSITORY HNO ID: [id number] Author: Fiona (Rn) MARCELLA Adams Service: Care Management Author Type: Registered Nurse Type: Care Mgt Initial Assessment Filed: 04/16/2018 4:02 PM Note Text: CARE MANAGEMENT: ASSESSMENT AND DISCHARGE PLAN SERVICE DATE: 04/16/2018 SERVICE TIME: 3:58 PM PRIMARY CARE PHYSICIAN: Loree Small MD ADMISSION STATUS: Inpatient Needs Prior to Discharge: Home Care Order 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 No Advance Directive: Current Advance Directive: None Director [facility] Attempted to Assist with AD Completion: No Unable to Assist Due To:: Sedation Health Literacy: 1. How often do you need to have someone help you when you read instructions, pamphlets, or other written material from your doctor or pharmacy? Never - 1 2. How confident are you filling out medical forms by yourself? Extremely - 1 If Patient scores > 3 on either question, the following interventions were put into place: Patient did not score > 3 FUNCTIONAL AND COGNITIVE/BEHAVIORAL PRIOR TO ADMISSION: Baseline Mental Status: Alert AND Oriented, Person, Place , Time and Situation Functional Status: Independent Does Patient Currently Receive Any Community Services or Home Care? None Equipment Prior to Admission: Bi-level Positive Airway Pressure/Continuous Positive Airway Pressure Has the Patient Been in a Senior Living Facility in the Past 30 days? No SOCIAL: Living Arrangement: Home Lives With: Spouse Financial Resources: Retired Primary Contact: Extended Emergency Contact Information Primary Emergency Contact: Isabel Mathew [address]: [address] [place] [address] [facility] Mobile Relation: Spouse Secondary Emergency Contact: Naina Harrison Address: IF SPOUSE NOT AVAILABLE Mobile Relation: Sister Supportive: No Other Important Patient Contacts: None Caregiver Assessment: Caregiver is ready, willing and able to meet the patient's needs as recommended by the inter-professional team? Yes Patient's transition needs and plan for meeting these needs: home with and HHC Does the patient have an acute stroke diagnosis, or has the patient had a stroke during this admission? No Medication Adherence: I am convinced of the importance of my prescription medication: Agree completely - 0 I worry that my prescription medication will do more harm than good to me Disagree completely - 0 I feel financially burdened by my [id number] expenses for my prescription medication: Disagree completely - 0 Patient is categorized as low risk < 2 Are you interested in bedside delivery of your medications? No Food Concerns: In the Last Month, Have You had Trouble Getting Food? No trouble getting food During the Last Month, Have You Worried Whether Your Food Would Run Out Before You Had Enough Money to Buy More? No Is the Patient Psychosocially Complex? No ASSESSMENT AND PLAN: Medical Needs: 2 or more chronic diseases Psychosocial Needs: None FREEDOM OF CHOICE EXPLAINED: fresh post op valve surgery, need to discuss once off vent. POTENTIAL TRANSITION PLANS Home Home Care Pt know to this CM from last adm. Anticipate home with HHC at disch. Will need to discuss with pt once off vent. SIGNATURE: Fiona Adams RN PATIENT NAME: Gloria Mathew DATE: April 16, 2018 TIME: 3:56 PM PAGER/CONTACT #: [phone] PROGRESS Observed: 04/16/2018 Status: COMPLETED Source: [place] 3:27 PM CLINIC OTHER CAMPUS REPOSITORY HNO ID: [id number] Author: Adiel Villagran Service: Critical Care Author Type: Physician Type: Progress Notes Filed: 04/16/2018 3:47 PM Note Text: CRITICAL CARE PROGRESS NOTE SERVICE DATE: April 16, 2018 SERVICE TIME: 3:27 PM Admission Date: 04/16/2018 AGE: [age] year old LOS: 0 days REASON FOR ICU ADMISSION: S/P MVR and Maze procedure. Subjective Pt is a 77yo WF s/p MVR and Maze procedure. She has a PMH significant for Afib. She was on Metoprolol and coumadin for her afib. She is a life long nonsmoker. OVERNIGHT EVENTS: NA Objective PAST MEDICAL HISTORY Diagnosis Date - Breast mass, right - IBS (irritable bowel syndrome) - Mitral valve regurgitation - Mitral valve stenosis - Pulmonary HTN (HCC) - Tricuspid regurgitation PAST SURGICAL HISTORY Procedure Laterality Date - BREAST BIOPSY - CHOLECYSTECTOMY HX 10/02/2011 - HYSTERECTOMY HX MARYELLEN/BLO - LEG SURGERY HX Social History Marital status: Spouse name: Years of education: Number of children: Social History Main Topics Smoking status: Never Smoker Smokeless tobacco: Never Used Alcohol use: No Drug use: No Other Topics Concern Caffeine Concern No Special Diet No Comment:average Exercise No Comment:sedentary VITAL SIGNS: BP 105/55 Pulse 80 Temp 36.9 ?C (98.4 ?F) Resp 15 Ht 157.5 cm (5' 2.01) Wt 67.7 kg (149 lb 4 oz) SpO2 99% BMI 27.29 kg/m? Temp (24hrs), Av.6 ?C (97.8 ?F), Min:36.3 ?C (97.3 ?F), Max:36.9 ?C (98.4 ?F) 100% A-V paced at a rate of 81 bpm. Not on pressors. Vital signs reviewed. 24 hour Intake AND Output: Intake/Output Summary (Last 24 hours) at 04/16/18 1527 Last data filed at 04/16/18 1500 Gross per 24 hour Intake 100 ml Output 336 ml Net -236 ml PHYSICAL EXAM: IRON MINER: Intubated, not awake yet. Eyes: PER Neck: Unremarkable; No adenopathy or JVD Cardiovascular: Regular rhythm, sternal incision is C/D/I. Respiratory: Clear to auscultation Abdomen: Soft and Nontender Extremities: Edema- No. SCD applied. Skin: Abnormalities- No : [place] w/ clear yellow urine. VENTILATOR INFORMATION: WEANING DATA: Settings: Invasive Ventilator Mode: Pressure Support Ventilation;Synchronized Intermittent Mandatory Ventilation (04/16/18 1345) %FIO2: 50 Set Ventilator Respiratory Rate (BPM): 12 Tidal Volume Set (mL): 450 PEEP/CPAP (cm H2O): 5 Inspiratory Pressure Set (cm H2O): 10 Patient Data: Inspiratory:Expiratory Ratio: 1:4 Peak Inspiratory Pressure (cm H2O): 21 Weaning Data: INDWELLING CATHETERS: Lines, Drains, and Airways Line Arterial Line 04/16/18 0806 Arterial Line Left Radial less than 1 day Central Line Quadruple Lumen 04/16/18 0838 Non-tunneled Right Neck less than 1 day Peripheral 04/16/18 0730 Left Hand 18 Gauge less than 1 day Drain Chest Tube 04/16/18 1245 32 Fr less than 1 day Chest Tube 04/16/18 1245 32 Fr less than 1 day Chest Tube 04/16/18 1245 32 Fr less than 1 day Indwelling Urinary Catheter 04/16/18 0815 Temperature Monitoring 16 Fr less than 1 day Airway Airway Endotracheal Tube 04/16/18 less than 1 day INPATIENT MEDICATIONS: Current hospital medications: acetaminophen 650 mg tab(s) (TYLENOL) 650 mg ORAL q 6 H PRN albuterol 2.5 mg /3 mL (0.083 %) 2.5 mg (PROVENTIL) 2.5 mg INHALATION q 2 H PRN aminocaproic acid 10 g in NaCl 0.9% 250 mL (AMicAR) 1 g/hr INTRAVENOUS ONE TIME [START ON 04/17/2018] amiodarone 200 mg tab(s) (PACERONE) 200 mg ORAL TID [START ON 04/22/2018] amiodarone 200 mg tab(s) (PACERONE) 200 mg ORAL BID [START ON 04/27/2018] amiodarone 200 mg tab(s) (PACERONE) 200 mg ORAL DAILY [START ON 04/17/2018] aspirin 162 mg chewable tab(s) 162 mg ORAL DAILY [START ON 04/18/2018] bisacodyl 10 mg suppository (DULCOLAX) 10 mg RECTAL DAILY PRN ceFAZolin iv piggyback 2 g in D5W (iso-osmotic) 100 mL (ANCEF) 2 g INTRAVENOUS q 6 HR dexmedetomidine 400 mcg in NaCl 0.9% 100 mL (PRECEDEX) 0.2- 0.7 mcg/kg/hr INTRAVENOUS CONTINUOUS dextrose 50% in water 25 mL syringe 12.5 g INTRAVENOUS PRN enoxaparin 40 mg injection (LOVENOX) 40 mg SUBCUTANEOUS DAILY insulin regular human iv bolus 10 Units 10 Units INTRAVENOUS PRN insulin regular iv infusion 250 units in NaCl 0.9% 250 mL - AK CARD SURG NOMOGRAM 0-12 Units/hr INTRAVENOUS CONTINUOUS magnesium sulfate in water 2 g in sterile water 50 ml 2 g INTRAVENOUS PRN(NO DISPENSE) midazolam (PF) 2 mg injection (VERSED) 2 mg INTRAVENOUS q 6 H PRN morphine 2-4 mg injection 2-4 mg INTRAVENOUS q 1 H PRN NaCl 0.9% 250 mL iv bolus 250 mL INTRAVENOUS PRN NaCl 0.9% iv infusion 50 mL/hr INTRAVENOUS CONTINUOUS ondansetron (PF) 4 mg injection (ZOFRAN) 4 mg INTRAVENOUS q 6 H PRN oxyCODONE-acetaminophen 5-325 mg 1-2 tablet (PERCOCET) 1-2 tablet ORAL q 4 H PRN [START ON 04/17/2018] pantoprazole 40 mg injection (PROTONIX) 40 mg INTRAVENOUS DAILY (6 AM) [START ON 04/18/2018] polyethylene glycol 3350 17 g packet (MIRALAX, GLYCOLAX) 17 g ORAL DAILY potassium chloride iv piggyback 20 mEq/100 mL 20 mEq INTRAVENOUS PRN [START ON 04/18/2018] senna-docusate 8.6-50 mg 1 tablet (SENNA- S) 1 tablet ORAL BID vancomycin iv piggyback 1 g in D5W 200 mL (VANCOCIN) 1 g INTRAVENOUS q 12 HR NUTRITION: Enteral Feeds: No DATA: BLOOD GAS: Recent Labs 04/16/18 1350 04/16/18 1119 04/16/18 1051 04/16/18 1018 04/16/18 0953 04/16/18 0947 04/16/18 0921 04/16/18 0858 RESPHCO3 23.6 -- -- -- -- -- -- -- PH 7.346* 7.398 7.383 7.385 7.290* 7.328* 7.336* 7.357 PCO2 44.1 -- -- -- -- -- -- -- [id number] 99.2* -- -- -- -- -- -- -- CBC: Recent Labs 04/16/18 1350 04/16/18 1119 04/16/18 1051 04/16/18 1018 04/16/18 0953 04/16/18 0947 04/16/18 0904/16/18 0858 WBC 8.74 -- -- -- -- -- -- -- HB 10.4* -- -- -- -- -- -- -- HCT 30.1* 23* 24* 24* 24* 24* 28* 33* PLT 126* -- -- -- -- -- -- -- MCV 89.3 -- -- -- -- -- -- -- COAG: Recent Labs 04/16/18 1350 04/16/18 0727 APTT 29.1 -- INR 1.26 1.05 BMP: Recent Labs 04/16/18 1350 04/16/18 1119 04/16/18 1051 04/16/18 1018 04/16/18 0953 04/16/18 0947 04/16/18 0904/16/18 0858 GLUC 78 -- -- -- -- -- -- -- NA 145 143 141 140 139 138 141 142 K 3.2* 3.4* 3.5 3.7 3.7 4.1 2.9* 3.2* CHLOR 115* -- -- -- -- -- -- -- CO2 23 -- -- -- -- -- -- -- ANION 10 -- -- -- -- -- -- -- BUN 15 -- -- -- -- -- -- -- CREAT 0.88 -- -- -- -- -- -- -- CHEM: Recent Labs 04/16/18 1350 CA 7.2* MG 2.4 HEPATIC: No results for input(s): ALKPHOS, ALT, AST, TBILI, LIPASE in the last 168 hours. URINALYSIS: Recent Labs 04/16/18 1350 04/16/18 1119 04/16/18 1051 04/16/18 1018 04/16/18 0953 04/16/18 0947 04/16/18 0921 04/16/18 0858 PH 7.346* 7.398 7.383 7.385 7.290* 7.328* 7.336* 7.357 CARDIAC: No results for input(s): CKTEST, CKMB, CKMBP, TROPT, PBNP in the last 168 hours. MEERA 04/16/2018 LV fx is normal. RV fx is normal. RVSP est 25 mmHg Severe MS. CXR 04/16/2018 Small left pleural effusion. Anticoagulant AND Antiplatelet Medications Start Dose Route Frequency Ordered Stop 04/17/18 0900 aspirin 162 mg chewable tab(s) 162 mg ORAL DAILY 04/16/18 1346 -- 04/16/18 1500 enoxaparin 40 mg injection (LOVENOX) (Surgical High Risk ) 40 mg SUBCUTANEOUS DAILY 04/16/18 1346 -- 04/16/18 1400 pneumatic compression stockings ([place]) 04/16/18 1400 graduated compression stockings ([place]) 04/16/18 1400 activity - mobilize patient ([place]) VTE Prophylaxis: VTE prophylaxis appropriate Assessment/Plan IMPRESSION: # Acute anticipated post op respiratory Insufficiency # S/P MVR, maze procedure, and ligation of atrial appendage # Afib # Hypokalemia Critical Care Documentation: The patient has the following organ/system impairment(s): S/P MVR and Maze procedure. PLAN: -Wean vent. Anticipate we should be able to meet 4 hour extubation goal. - Pain control - S/P MVR per Dr De Los Santos. - Afib -> currently paced. Resume home meds of coumadin, metoprolol, digoxin and amiodarone per Dr De Los Santos. - Replace K+ This patient has a high probability of sudden, clinically significant deterioration, which requires the highest level of physician preparedness to intervene urgently. I managed/supervised life or organ supporting interventions that required frequent physician assessment. I devoted my full attention to the direct care of this patient for the amount of time indicated below. Time I spent with family or surrogate(s) is included only if the patient was incapable of providing the necessary information or participating in medical decision making. Time devoted to teaching and to any procedures I billed separately is not included. Patient/Family Updated: PROGNOSIS: Good Code status: Full Discussed with Respiratory therapist, Registered Nurse, Pharmacist and Residents while performing multidisciplinary rounds. Time spent providing critical care services:30 minutes. SIGNATURE: Adiel Villagran MD [facility] PAGER:[phone] DATE of SERVICE: April 16, 2018 TIME of SERVICE: 3:27 PM PROGRESS Observed: 04/16/2018 Status: COMPLETED Source: [place] 2:39 PM CLINIC OTHER CAMPUS REPOSITORY O ID: [id number] Author: Yue Byrd (Pa) Service: Cardiovascular Medicine Author Type: Physician Information Tech Type: Progress Notes Filed: 04/16/2018 2:41 PM Note Text: CARDIOTHORACICSURGERY PROGRESS NOTE SERVICE DATE: 04/16/2018 SERVICE TIME: 2:41 PM Pt immediately transferred to CVICU s/p full maze and MVR. Orders and goals discussed with Dr. De Los Santos. Medication drips include Precedex, insulin. Perioperative ABX with ancef and vancomycin. Pt amiodarone scheduled to start tomorrow. Coumadin to start tomorrow pending INR check. Labs and imaging pending. Will correct electrolytes per protocol. Formal progress note to follow tomorrow. SIGNATURE: Yue Byrd PA-C PATIENT NAME: Gloria Mathew DATE: April 16, 2018 TIME: 2:39 PM PAGER/CONTACT #: [phone] ETX#[id number] CHEST 1 VIEW Observed: 04/16/2018 Status: F Source: [email or web address] 2:00 PM HEALTH SYSTEM REPOSITORY Performed at [facility] APPROVED BY: Elijah Rodríguez MD EXAM TITLE: CHEST 1 VIEW DATE: 04/16/2018 13:54 INDICATION: Status post coronary bypass graft surgery COMPARISON: Presurgical exam from 04/09/2018 FINDINGS: Sternotomy has been performed and support lines have been inserted. The ETT tip is 4 cm above the rianna. The esophagogastric tube tip is at the gastric cardia and could be advanced a few ce ntimeters further into the stomach. There are bilateral thoracostomy tubes and mediastinal tube which appear to be in proper position. There is a right-sided Sussex-Joe catheter whose tip is at the rig ht ventricular outflow tract. There is a small left pleural effusion. No visible pneumothorax. Heart is not enlarged. There is a left atrial appendage clip. IMPRESSION: Small left pleural effusion. Advancement of the esophagogastric tube tip by a few centimeters is recommended. HEMOGRAM Collected: 04/16/2018 Status: F Source: [email or web address] 1:50 PM HEALTH SYSTEM REPOSITORY TYPE CODE TESTS RESULT OUT OF REFERENCE UNITS RANGE LAB WBC(LOINC) 3.98-10.04 thou/cmm WBC 8.74 LAB RBC(LOINC) 3.93-5.22 mil/cmm Low RBC 3.37 LAB HGB(LOINC) 11.2-15.7 g/dL Low Hgb 10.4 LAB HCT(LOINC) 34.1-44.9 % Low Hct 30.1 LAB MCV(LOINC) 79.4-94.8 fl MCV 89.3 LAB MCH(LOINC) 25.6-32.2 pg MCH 30.9 LAB MCHC(LOINC) 31.6-34.8 % MCHC 34.6 LAB RDW(LOINC) 11.7-14.4 % RDW 13.6 LAB RDWSD(LOINC 36.4-46.3 fl ) RDW SD 44.2 LAB PLT(LOINC) 182-369 thou/cmm Low Platelet 126 LAB MPV(LOINC) 9.4-12.3 fl Low MPV 9.2 Performed By: #### CBC1 #### [place] [address] BLOOD GAS ARTERIAL Collected: 04/16/2018 Status: F Source: [facility] REPOSITORY TYPE CODE TESTS RESULT OUT OF REFERENCE UNITS RANGE LAB TEMPA(LOIN C) Temperature 37.0 LAB PH(LOINC) 7.350-7.450 Low pH Arterial 7.346 LAB PCO2(LOINC 36.0-46.0 mm Hg ) PCO2 Arterial 44.1 LAB PO2(LOINC) 85.0-96.0 mm Hg PO2 High Arterial 231.5 LAB HCO3A(LOIN 22.0-26.0 mEq/L C) HCO3- 23.6 LAB O2%A(LOINC 95.0-98.0 % ) O2% Sat High Arterial 99.2 LAB BASEX(LOIN -2.5 to 2.5 mEq/L C) Base Excess -2.1 LAB FIO2(LOINC % ) FIO2 Value Not Given Performed By: #### ABG #### [place] [address] BASIC PANEL Collected: 04/16/2018 Status: F Source: [facility] 1:50 PM HEALTH SYSTEM REPOSITORY TYPE CODE TESTS RESULT OUT OF REFERENCE UNITS RANGE LAB NA(LOINC) 136-145 mEq/L Sodium Blood 145 LAB K(LOINC) 3.5-5.1 mEq/L Low Potassium Blood 3.2 LAB CL(LOINC) 98-107 mEq/L Chloride High Blood 115 LAB CO2(LOINC) 21-32 mEq/L CO2 Blood 23 LAB GLU(LOINC) 70-99 mg/dL Glucose Blood 78 LAB BUN(LOINC) 7-18 mg/dL BUN Blood 15 LAB CREA(LOINC 0.51-0.95 mg/dL ) Creatinine Blood 0.88 LAB CA(LOINC) 8.5-10.1 mg/dL Low Calcium Blood 7.2 LAB ANGAP(LOIN 8-16 C) Anion Gap 10 Performed By: #### P8 #### [facility] [address] [place] [address] MAGNESIUM BLOOD Collected: 04/16/2018 Status: F Source: [facility] 1:50 HEALTH SYSTEM REPOSITORY TYPE CODE TESTS RESULT OUT OF REFERENCE UNITS RANGE LAB MAG(LOINC) 1.6-2.6 mg/dL Magnesium Blood 2.4 Performed By: #### MAG #### [facility] [address] [place] [address] PROTIME Collected: 04/16/2018 Status: F Source: [facility] 1:50 HEALTH SYSTEM REPOSITORY TYPE CODE TESTS RESULT OUT OF REFERENCE UNITS RANGE LAB PTI(LOINC) 9.7-13.0 sec Prothrombin Time 12.9 LAB INR(LOINC) 0.90-1.30 INR 1.26 Result Comment: Note: Reference Range Change Vitamin K Antagonist (VKA) Therapeutic Range: INR 2 to 3 (Target INR of 2.5) Note: For patients treated with VKA drugs, such as warfarin, the [employer] 2012 Guideline recommends a therapeutic INR range of 2 to 3 (target INR of 2.5). This recommendation includes high-risk patients with antiphospholipid syndrome with previous arterial or venous thromboembolism, current-generation mechanical or bioprosthetic aortic heart valve replacement. VKA Therapeutic Range for some Mechanical Valve Replacement: INR 2.5 to 3.5 (Target INR of 3) Note: Patients with mechanical aortic valve replacement and additional risk factors for thromboembolic events (atrial fibrillation, previous thromboembolism, LV dysfunction, hypercoagulable conditions) or an older generation mechanical AVR (i.e., ball in-Cage) or any mechanical MVR should have a INR therapeutic range of 2.5 to 3.5 target INR of 3). Nathanael GH, et al. Chest 2012; 141:7S-47S Marbella RA et al. [facility] 2017; 70: 252-289 Performed By: #### PT #### [address] [address] ACTIVATED PTT Collected: 04/16/2018 Status: F Source: [facility] 1:50 PM HEALTH SYSTEM REPOSITORY TYPE CODE TESTS RESULT OUT OF REFERENCE UNITS RANGE LAB APTT(LOINC 23.0-32.4 sec ) Activated PTT 29.1 Result Comment: Note: New Reference Range Unfractionated Heparin Therapeutic Ranges: Standard Heparin Nomogram: 53 to 78 seconds (anti-Xa level of 0.3 to 0.7 U/mL) Low Dose/ACS Nomogram: 49 to 67 seconds (anti-Xa level of 0.2 to 0.5 U/mL) Stroke Treatment Nomogram: 49 to 67 seconds (anti-Xa level of 0.2 to 0.5 U/mL) Note: The APTT therapeutic range has been determined for the current lot of laboratory APTT reagent in use throughout the [facility]. Performed By: #### APTT #### [address] [address] EKG (AK,AV,EU,FV,HL,LUPILLO,MM,SP) Observed: Status: F Source: [place] 04/16/2018 1:41 PM CLINIC OTHER CAMPUS REPOSITORY NAME : GLORIA MATHEW PID : [id number] : 1940 Gender : Female Race : ORD : [id number] Procedure Date : Apr 16 2018 13:41 Edit Date : Apr 17 2018 13:37 Diagnosis:UNUSUAL P AXIS, POSSIBLE ECTOPIC ATRIAL BRADYCARDIA RIGHTWARD AXIS POSSIBLE ANTERIOR INFARCT , AGE UNDETERMINED ST & T WAVE ABNORMALITY, CONSIDER INFERIOR ISCHEMIA ABNORMAL ECG WHEN COMPARED WITH ECG OF 24-MAR-2018 14:33, SIGNIFICANT CHANGES HAVE OCCURRED Confirmed by MD Keri, Evangelist ([id number]) on 04/17/2018 1:36:58 PM Ventricular Rate : 56 BPM Atrial Rate : 56 BPM P-R Interval : 202 ms QRS Duration : 96 ms Q-T Interval : 450 ms QTC Calculation(Bezet) : 434 ms P Radnor : -63 degrees R Radnor : 102 degrees T Radnor : -41 degrees Test Reason : Post OP Location : 6 : [place] [address] Overread By : MD Saavedra Vinay Editted By : MD Saavedra Vinay Referred By : YUE BYRD Acquired by : Speedy Castaneda CG8 ARTERIAL PANEL Collected: 04/16/2018 Status: F Source: [facility] (I-STAT) 12:21 PM HEALTH SYSTEM REPOSITORY TYPE CODE TESTS RESULT OUT OF REFERENCE UNITS RANGE LAB PHISA(LOIN 7.350-7.450 C) pH (i-STAT) 7.425 LAB PC2IA(LOIN 35.0-45.0 mm Hg C) PCO2 (i-STAT) 42.0 LAB PO2IA(LOIN 80.0-105.0 mm Hg C) PO2 High (i-STAT) 445.0 LAB HC3IA(LOIN 22.0-26.0 mmol/L C) HCO3- High (i-STAT) 27.5 LAB BSXIA(LOIN -2.0 to 3.0 mmol/L C) Base Excess (i-STAT) 3.0 LAB SO2IA(LOIN 95.0-98.0 % C) O2% Sat. High (i-STAT) 100.0 LAB TC2IA(LOIN 23-27 mmol/L C) Total High CO2 (i-STAT) 29 LAB GLUIA(LOIN 70-99 mg/dL C) Glucose High (i-STAT) 110 LAB NAI2A(LOIN 138-146 mmol/L C) Sodium (i-STAT) 144 LAB KIS2A(LOIN 3.5-4.9 mmol/L C) Low Potassium 3.1 (i-STAT) LAB ICALA(LOIN 4.5-5.3 mg/dL C) Ionized Calcium (iSTAT) 4.8 LAB HCTIA(LOIN 38-51 %PCV C) Low alert Hematocrit 20 (i-STAT) LAB HGBIA(LOIN 12.0-17.0 g/dL C) Low alert Hemoglobin 6.8 (i-STAT) Performed By: #### CG8IA #### [place] [address] ACT ARTERIAL PANEL Collected: 04/16/2018 Status: F Source: [facility] (I-STAT) 12:20 PM HEALTH SYSTEM REPOSITORY TYPE CODE TESTS RESULT OUT OF REFERENCE UNITS RANGE LAB ACTAI(LOINC 74-137 sec ) Kaolin ACT ( 114 i-STAT) Performed By: #### ACTIA #### [facility] [address] [place] [address] CG8 VENOUS PANEL Collected: 04/16/2018 Status: F Source: [facility] (I-STAT) 9:53 AM HEALTH SYSTEM REPOSITORY TYPE CODE TESTS RESULT OUT OF REFERENCE UNITS RANGE LAB PHISV(LOIN 7.310-7.410 C) Low pH (i-STAT) 7.290 LAB PC2IV(LOIN 41.0-51.0 mm Hg C) PCO2 (i-STAT) 43.9 LAB PO2IV(LOIN 20.0-50.0 mm Hg C) PO2 (i-STAT) 47.0 LAB HC3IV(LOIN 23.0-28.0 mmol/L C) Low HCO3- (i-STAT) 21.1 LAB BSXIV(LOIN -2.0 to 3.0 mmol/L C) Base Excess (i-STAT) -5.0 LAB SO2IV(LOIN 35.0-85.0 % C) O2% Sat. (i-STAT) 78.0 LAB TC2IV(LOIN 24-29 mmol/L C) Low Total CO2 (i-STAT) 22 LAB GLUIV(LOIN 70-99 mg/dL C) Glucose High (i-STAT) 184 LAB NAI2V(LOIN 138-146 mmol/L C) Sodium (i-STAT) 139 LAB KIS2V(LOIN 3.5-4.9 mmol/L C) Potassium 3.7 (i-STAT) LAB ICALV(LOIN 4.5-5.3 mg/dL C) Low Ionized Calcium (iSTAT) 4.2 LAB HCTIV(LOIN 38-51 %PCV C) Low Hematocrit 24 (i-STAT) LAB HGBIV(LOIN 12.0-17.0 g/dL C) Low Hemoglobin 8.2 (i-STAT) Performed By: #### [id number] #### [facility] [address] [address] ANES PREOP Observed: 04/16/2018 Status: COMPLETED Source: [place] 9:05 AM CLINIC OTHER CAMPUS REPOSITORY [facility] ID: [id number] Author: Kirby Hester MD Service: Anesthesiology Author Type: Physician Type: Anesthesia PreOp Filed: 04/16/2018 9:06 AM Note Text: ANESTHESIOLOGY DAY OF SURGERY NOTE SERVICE DATE: 04/16/2018 SERVICE TIME: 9:05 AM : 1940 Procedure(s) (LRB): REPLACEMENT MITRAL VALVE W/ CARDIOPULMONARY BYPASS (N/A) MODIFIED MAZE DONE W/ VALVE REPLACEMENT (N/A) LIGATION OF ATRIAL APPENDAGE (N/A) Surgeon(s): Gui De Los Santos Estimated body mass index is 25.97 kg/m? as calculated from the following: Height as of 04/09/18: 157.5 cm (5' 2). Weight as of this encounter: 64.4 kg (141 lb 15.6 oz). 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) Use of Anticoagulants FPC current use of 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 [Z79.01] A-Fib (Hcc) Rheumatic Mitral Stenosis Mitral Regurgitation PAST MEDICAL HISTORY Diagnosis Date - Breast mass, right - IBS (irritable bowel syndrome) - Mitral valve regurgitation - Mitral valve stenosis - Pulmonary HTN (HCC) - Tricuspid regurgitation PAST SURGICAL HISTORY Procedure Laterality Date - BREAST BIOPSY - CHOLECYSTECTOMY HX 10/02/2011 - HYSTERECTOMY HX MARYELLEN/BLO - LEG SURGERY HX FAMILY HISTORY Problem Relation Age of Onset - Breast Cancer Mother stage III - Coronary Artery Disease Mother mother, uncle - Cancer Paternal Grandfather - Colon Cancer Maternal Grandmother - Diabetes Other uncle - Stroke Maternal Grandfather Social History: Social History Substance Use Topics - Smoking status: Never Smoker - Smokeless tobacco: Never Used - Alcohol use No No current facility-administered medications on file prior to encounter. Current Outpatient Prescriptions on File Prior to Encounter: amiodarone (PACERONE) 100 mg tablet Take 1 tablet by mouth once daily. atorvastatin (LIPITOR) 10 mg tablet Take 1 tablet by mouth daily at bedtime. calcium carbonate (CALTRATE) 600 mg calcium (1,500 mg) tab Take 600 mg by mouth once daily. cholestyramine (QUESTRAN) 4 gram packet Take 1 Packet by mouth once daily. Cyanocobalamin (VITAMIN B-12) 1,000 mcg subl Dissolve 1 tablet under the tongue once daily. digoxin (LANOXIN) 125 mcg tablet Take 1 tablet by mouth once daily. enoxaparin (LOVENOX) 60 mg/0.6 mL syrg Inject 0.6 mL subcutaneously q 12 HR. furosemide (LASIX) 40 mg tablet Take 1 tablet by mouth once daily. gabapentin (NEURONTIN) 100 mg capsule Take 200 mg by mouth daily at bedtime. metoprolol tartrate, short acting, (LOPRESSOR) 25 mg tablet Take 1 tablet by mouth every 8 hours. multivitamin tablet Take 1 tablet by mouth once daily. pramipexole (MIRAPEX) 0.25 mg tablet Take 0.25 mg by mouth daily at bedtime. PROAIR HFA 90 mcg/actuation inhaler 2 Puffs every 6 hours as needed for Wheezing/Shortness of Breath. alendronate (FOSAMAX) 70 mg tablet Take 70 mg by mouth every Thursday. amoxicillin (POLYMOX, AMOXIL) 500 mg capsule 4 pills one hour prior to dentist Biotin-Silicon Hgjz-J-Pmmpnvsy 5,000 mcg-100 mg- 50 mg tab Take 1 tablet by mouth once daily. Cholecalciferol, Vitamin D3, 1,000 unit cap Take 1,000 Units by mouth once daily. warfarin (COUMADIN) 1 mg tablet Take 0.5mg (1/2 tablet) daily. (Patient not taking: Reported on 04/09/2018 ) Current Facility-Administered Medications: enoxaparin 40 mg injection (LOVENOX) 40 mg SUBCUTANEOUS ONCE Gui De Los Santos NaCl 0.9% 2-10 mL 2-10 mL INTRAVENOUS ONCE Kirby Hester MD vancomycin iv piggyback 1 g in D5W 200 mL (VANCOCIN) 1 g INTRAVENOUS ONCE Gui De Los Santos Allergies: ALLERGIES No Known Allergies DOS EXAM: Adequate NPO status: Yes Anesthetic risks, benefits, alternatives, personnel and consent discussed: Yes Patient agrees to proceed: Yes Previous Anesthesia: No history of adverse event. Airway Assessment: MP 2; Neck ROM: Full ROM without neurologic symptoms; Airway Evaluation: No significant abnormalities Symptoms of Sleep Apnea: None Dentition: Teeth intact Additional Physical Exam: Lungs: Patient health status unchanged since recent history and physical. See history and physical for exam findings. Cardiac: Patient health status unchanged since recent history and physical. See history and physical for exam findings. Additional Pertinent Findings: N/A Blood Products: Not anticipated for this procedure. Anesthetic Plan: General, Standard ASA Monitors and tory sgc Pain Management Plan: Parenteral or Oral ASA Class: 4 Other Medical Problems: sever ms. pulm htn Chronic Beta Edson medication administered within 24 hours: Yes I have interviewed and examined the patient. I have reviewed the medical record and/or the pre-anesthesia evaluation, pertinent labs, and test results. Significant changes in the patient's condition since the History and Physical, not otherwise documented in primary service progress notes: No This contains updated information obtained within 48 hours of Surgery/Procedure. SIGNATURE: Kirby Hester MD PATIENT NAME: Gloria Mathew DATE: April 16, 2018 TIME: 9:05 AM CSN: [id number] RBC PRODUCTS Collected: 04/16/2018 Status: F Source: [facility] 7:41 AM HEALTH SYSTEM REPOSITORY TYPE CODE TESTS RESULT OUT OF REFERENCE UNITS RANGE LAB UNIT1(LOINC ) Xmatch Unit 1 see below Result Comment: Compatible LAB UNIT2(LOINC) Xmatch Unit 2 see below Result Comment: Compatible Performed By: #### RBCPS #### [place] [address] PROTIME Collected: 04/16/2018 Status: F Source: [facility] 7:27 AM HEALTH SYSTEM REPOSITORY TYPE CODE TESTS RESULT OUT OF REFERENCE UNITS RANGE LAB PTI(LOINC) 9.7-13.0 sec Prothrombin Time 10.9 LAB INR(LOINC) 0.90-1.30 INR 1.05 Result Comment: Note: Reference Range Change Vitamin K Antagonist (VKA) Therapeutic Range: INR 2 to 3 (Target INR of 2.5) Note: For patients treated with VKA drugs, such as warfarin, the [employer] 2012 Guideline recommends a therapeutic INR range of 2 to 3 (target INR of 2.5). This recommendation includes high-risk patients with antiphospholipid syndrome with previous arterial or venous thromboembolism, current-generation mechanical or bioprosthetic aortic heart valve replacement. VKA Therapeutic Range for some Mechanical Valve Replacement: INR 2.5 to 3.5 (Target INR of 3) Note: Patients with mechanical aortic valve replacement and additional risk factors for thromboembolic events (atrial fibrillation, previous thromboembolism, LV dysfunction, hypercoagulable conditions) or an older generation mechanical AVR (i.e., ball in-Cage) or any mechanical MVR should have a INR therapeutic range of 2.5 to 3.5 target INR of 3). Nathanael GH, et al. Chest 2012; 141:7S-47S Marbella RA, et al. [facility] 2017; 70: 252-289 Performed By: #### PT #### [place] [address] OPERATIVE NO Observed: 04/16/2018 Status: COMPLETED Source: [place] 12:00 AM CLINIC OTHER CAMPUS REPOSITORY O ID: [id number] Author: Gui De Los Santos Service: Cardiac Surgery Author Type: Physician Type: Operative Report Filed: 04/19/2018 7:30 AM Note Text: [facility] - Operative Report GLORIA MATHEW Mer[place] : 1940 AGE: 77. SEX: F PATIENT TYPE: I HOSP SVC: ORCA LOCATION: [id number] ATTENDING PHYSICIAN: GUI DE LOS SANTOS CSN NUMBER: [id number] DATE OF SURGERY/PROCEDURE: 04/16/2018 INCISION/PROCEDURE START TIME: 9:07 AM INCISION CLOSE/PROCEDURE END TIME: 1:34 PM PREOPERATIVE DIAGNOSIS: Symptomatic severe mitral stenosis; atrial fibrillation. POSTOPERATIVE DIAGNOSIS: Symptomatic severe mitral stenosis; atrial fibrillation. SURGEON: Gui De Los Santos MD BOARDMARKER: 1. Ms. Swartz. 2. Ms. Sandoval. SURGERY/PROCEDURE: Mitral valve replacement with a 29-mm [employer] Epic bioprosthesis; maze procedure with left and right atrial lesion sets (radiofrequency clamp and cryo); exclusion of left atrial appendage with a 45 mm atrial clip. ANESTHESIA: General anesthesia. Cross-clamp time and perfusion time are per the perfusion record. FINDINGS: Include the following: Preoperatively, mildly severe PA hypertension with PA pressures in the 60s; on MEERA, severe mitral stenosis with a heavily calcified valve; markedly enlarged left atrium; normal left ventricle function.; no thrombus in left atrial appendage. Intraoperatively, we found a rheumatic valve with severe calcification of the leaflets particularly the anterior leaflet and with portion of P2 and P3 with fusion of the anterolateral commissure significant for shortening of subvalvular apparatus; large left atrium. Postoperatively, normally functioning bioprosthesis in the mitral position with no perivalvular leak. No outflow tract obstruction; normal left ventricular and right ventricular function; improved PA pressures; and a complete release of the left atrial appendage. SPECIMENS: Included the excised mitral leaflets. COMPLICATIONS: No complications. ESTIMATED BLOOD LOSS: 250 mL. INDICATIONS: This is a 77-year-old woman with severe rheumatic mitral stenosis. She has had several episodes of diastolic heart failure. 2D echo and MEERA confirmed severe mitral stenosis with [id number]-rzawccgj MR. There were no other significant valvular lesions. LV function is normal. Left atrial appendage is markedly enlarged. PA pressures were elevated by echo and cath in the range of 60 mmHg. Catheterization revealed normal coronary arteries. We recommended mitral valve replacement. She also has had atrial fibrillation with rapid ventricular response. So, she has been anticoagulated for this so we recommended mitral replacement with full maze procedure and exclusion of left atrial appendage. The procedure, the intended benefits, potential complications, and staff indications were discussed with her at length. All questions were answered. She understood and she consented to proceed. DESCRIPTION OF PROCEDURE: A preoperative huddle was performed. She was brought to the operating room and placed on the operating table in supine position. Central venous, pulmonary arterial, and radial artery accesses were obtained. She was given general anesthesia and intubated. A MEERA probe was placed. A [place] catheter was placed. SCDs were placed. She was prepped and draped sterilely. She received perioperative IV antibiotics. Anticoagulation was discontinued for over a week. MEERA was performed, confirming the aforementioned findings. A time- out was then performed. A median sternotomy was made. The sternal firewood cutter was placed in the wound. A pericardial well was made. The ascending aorta was free of any palpable atherosclerotic disease. LV function appeared well preserved, but there was marked enlargement of right atrium, left atrium, and the overall volume overload of heart. She was heparinized and cannulated for cardiopulmonary bypass via the aorta, superior vena cava, and inferior vena cava. After an adequate ACT was achieved, cardiopulmonary bypass was initiated and ventilation was stopped. The aortic root was vented. The aortic cross-clamp was applied and the heart was arrested with 1500 mL of cold antegrade blood cardioplegia. Thereafter, boluses of cardioplegia administered every 15 to 30 minutes. Attention was first paid to perform pulmonary vein isolation. We started on the left side with AtriCure clamps and for each of these applications, we made 4-5 applications of the radiofrequency clamp. The left pulmonary veins were isolated 1st. The ligament of Shakir was divided with Bovie electrocautery. A small opening was made in the atrial appendage and through this the clamp was then passed across the juncture of pulmonary veins and left atrium into the left superior pulmonary vein. Again the lesion set was accomplished here. The defect in the appendage was closed with a 4-0 Prolene suture. The appendage was sized to a 45 mm clip, which was applied across the base. The right pulmonary vein isolation was performed in similar fashion after opening up the groove of Sondergaard with Bovie electrocautery. The cryo lesion was placed on the origin of the coronary sinus. The vena cavae were snared. The left ventricle was vented via the right superior pulmonary vein. We performed a procedure through a right atriotomy and transseptal approach. We 1st opened the right atrium. We performed a right atrial lesion set with lesions to the superior vena cava, inferior vena cava. We used our incision to go up over the right atrial appendage and then placed a cryo lesion to the anulus of the tricuspid valve. Having completed the lesions, the septum was opened and the mitral valve was exposed with excellent exposure and completed our roof, floor, and mitral lesions with cryoprobe and then examined the valve, as noted heavily calcified rheumatic stenosis with severe calcification and some ulceration in the calcifications as well. We excised the calcified leaflets. The anulus itself was not calcified and the P1 and P2 area was free of significant calcification with thickening and so this portion of the mitral valve was preserved along with subchordal apparatus. We irrigated to remove all debris, we sized to 29 mm pericardial prosthesis, which was sutured into place with 15, 2-0 Ethibond pledget sutures with pledgets on the atrial side. The valve seated well. Sutures were tied down and cut. We examined the struts with a dental mirror. There was no entrapment of any suture. The left ventricle was vented via the right superior pulmonary vein. The interatrial septum was closed with running 4-0 Prolene suture in double layer. The right atriotomy was closed with running 4-0 Prolene suture in double layer. A final hot plate plywood press offbearer was administered and the aortic cross-clamp was then removed. The heart regained spontaneous bradycardic, sinus rhythm. Right atrial and right ventricular pacing leads were placed and secured to the skin. AV pacing was initiated. Ventilation was resumed. The heart was allowed to fill and eject. When the echo revealed the absence of any intracavitary air, we removed our vents, weaned from bypass, decannulated, and reversed heparin with protamine. MEERA now confirmed a normally functioning bioprosthesis in the aortic position with no perivalvular leak and no outflow tract obstruction. LV function was normal. The left atrial appendage was completely excluded. Two mediastinal tubes and a right pleural tube were placed and secured to the skin. Hemostasis was assiduously obtained. The sternum was then closed with wires. Pectoral fascia, subcutaneous tissues, and skin were closed in layers with absorbable suture. Dry sterile dressings were applied. Sponge counts and needle counts were correct. A sign-out was performed. The patient was to return to CVICU in critical, but stable condition. Gui De Los Santos MD JAL:[id number] /[id number] SURGICAL TISSUE EXAM Observed: 04/16/2018 Status: F Source: [facility] 12:00 AM HEALTH SYSTEM REPOSITORY Test performed at [place] [address] NAME: GLORIA MATHEW REQUESTING: GUI DE LOS SANTOS MD FINAL DIAGNOSIS: MITRAL VALVE, EXCISION - VALVULAR TISSUE WITH NODULAR CALCIFIC DEPOSITS AND FIBROSIS. CLINICALLY, MITRAL STENOSIS. OPERATIVE PROCEDURE: Mitral valve replacement CLINICAL INFORMATION: Rheumatic mitral stenosis [105.0] GROSS DESCRIPTION: Mitral valve Received in formalin labeled mitral valve is a fibrotic mitral valve measuring 3.0 cm along the free edge and 1.0 cm from free edge to base. The specimen has a circumference of approximately 8.0 cm. The valve is fibrotic in consistency. Calcifications are present. The chordae appear short and thickened. A vegetation is not present. Pulp Grinder sections are submitted in formalin in one cassette after a period of light decalcification. ARH:candis ARAMBULA M.D., PATHOLOGIST (Electronic signature on file) Signed out: 04/22/2018 16:05 PRINTED: 04/22/2018 Page 1 of 1 Performed By: #### SURG #### [address] [address] TYPE AND SCREEN Collected: 04/13/2018 Status: F Source: [facility] 2:00 PM HEALTH SYSTEM REPOSITORY TYPE CODE TESTS RESULT OUT OF REFERENCE UNITS RANGE LAB ABO(LOINC) O ABO Group LAB COLOR DRUM WORKER(LOINC ) RH Type Negative LAB ABSCR(LOIN C) Antibody NEGATIVE Screen LAB BBCMT(LOIN C) Comment PAT specimen Performed By: #### T&S #### [address] [address] CNPN Observed: 04/12/2018 Status: COMPLETED Source: [place] 12:00 AM CLINIC OTHER CAMPUS REPOSITORY Telephone (AKPRAD) GLORIA MTAHEW ([id number]) 1940 F Date Time Provider Department 04/12/18 ROSALINE LAUREN (TOM) SHARON During your visit today, we recorded the following information about you: Rosaline Lauren APRN.CNP, APRN.CNP 04/12/2018 8:48 AM Signed Numerous phone calls made to Mrs. Mathew in attempt informing her the needs of type and cross done in preparation for surgery this Monday 04/16. Unable to leave as it is not set up. Patient was also reminded during her PAT on 04/09/2018 that she should have T ANDS done on her way out of office that day, and it is still not completed. Phoned to patient since Thursday. Will update OR staff/Aniya PA of this issue. Rosaline Lauren APRN.DITTO MACHINE OPERATOR Allergies As of Date: 04/12/2018 (No Known Allergies) Date Reviewed: 04/09/2018 Reviewed by: Nadia (Callie) Jaren - Fully Assessed Reason for Visit: Pug Machine Operator - Other [[id number]] Prescriptions as of 04/12/2018 Sig: AMIODARONE 100 MG TABLET Take 1 tablet by mouth once d* ATORVASTATIN 10 MG TABLET Take 1 tablet by mouth daily * METOPROLOL TARTRATE 25 MG TAB* Take 1 tablet by mouth every * DIGOXIN 125 MCG TABLET Take 1 tablet by mouth once d* ENOXAPARIN 60 MG/0.6 ML SUBCU* Inject 0.6 mL subcutaneously * FUROSEMIDE 40 MG TABLET Take 1 tablet by mouth once d* AMOXICILLIN 500 MG CAPSULE 4 pills one hour prior to den* CYANOCOBALAMIN (VIT B-12) 1,0* Dissolve 1 tablet under the t* WARFARIN 1 MG TABLET Take 0.5mg (1/2 tablet) daily. Patient not taking: Reported on 04/09/2018 CALCIUM CARBONATE 600 MG CALC* Take 600 mg by mouth once mirta* PRAMIPEXOLE 0.25 MG TABLET Take 0.25 mg by mouth daily a* PROAIR HFA 90 MCG/ACTUATION A* 2 Puffs every 6 hours as need* CHOLESTYRAMINE (WITH SUGAR) 4* Take 1 Packet by mouth once d* GABAPENTIN 100 MG CAPSULE Take 200 mg by mouth daily at* ALENDRONATE 70 MG TABLET Take 70 mg by mouth every Sat* BIOTIN 5,000 MCG-SILICON DIOX* Take 1 tablet by mouth once d* MULTIVITAMIN TABLET Take 1 tablet by mouth once d* CHOLECALCIFEROL (VITAMIN D3) * Take 1,000 Units by mouth onc* Problem List As Of Date 04/12/2018 Noted Resolved Fibrocystic breast changes [N60.19] INVALID FOR*07/11/2015 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 Mitral regurgitation [I34.0] INVALID FOR* More... Encounter Status:Closed by ROSALINE LAUREN CNP on 04/12/18 HISTORY PHYSICAL Observed: 04/09/2018 Status: COMPLETED Source: [place] 2:16 PM CLINIC OTHER CAMPUS REPOSITORY HNO ID: [id number] Author: Rosaline (Tom) JAQUI Lauren Service: (none) Author Type: Nurse Practitioner Type: HANDP Filed: 04/09/2018 4:55 PM Note Text: CARDIOTHORACIC SURGERY CONSULT / HANDP SERVICE DATE: 04/09/2018 SERVICE TIME: 2:17 PM Subjective PRIMARY SERVICE: Cardiothoracic Surgery CHIEF COMPLAINT: Patient is here for PAT, HAND P, MRSA SWAP and Pre-op teaching for surgery. HPI: This is a 77 year old female with PMH of moderately severe MR with moderate MS, rheumatic fever, Afib with RVR (new), TRISH (on Cpap) and IBS, who presented to ED with elevated INR (13), SOB and some chest discomfort/palpitation. Patient was recently diagnosed with A fib and was started on metoprolol and Coumadin by Dr. Perez's TUNNELLER on 03/16. Her HR was still high which her metoprolol dose was increased to 25 mg BID subsequently. Patient has been following Dr. Perez for her MR, MS with series of Echo studies and was scheduled to have L/R HC and MEERA done on 03/31 electively. She was advised to ED from coumadin clinic with elevated INR on Thursday. In ED, she was found to have HR of 140s- 150s, therefore, she received IV metoprolol and digoxin in addition to Vit K for the supra therapeutic INR. CXR found her to have bilateral pleural effusion with clinical symptom of SOB, so she was admitted for acute respiratory management with diuresis. During the interim, patient was found to have renal calculi on the left kidney, which subsequently resolved spontaneously without intervention. Consult to CTS is placed for Mitral valve evaluation. Patient denied chest pain, she does report some chest palpitation, mild shortness of breath with exertions and worsening of weakness, especially in her leg which was very debilitaing . Denied orthopnea or PND, no LH/DZ, syncope/presyncope or leg edema. ? Patient is seen today, she denied any SOB or chest palpitation PAST MEDICAL HISTORY Diagnosis Date - Breast mass, right - IBS (irritable bowel syndrome) - Mitral valve regurgitation - Mitral valve stenosis - Pulmonary HTN (HCC) - Tricuspid regurgitation PAST SURGICAL HISTORY Procedure Laterality Date - BREAST BIOPSY - CHOLECYSTECTOMY HX 10/02/2011 - HYSTERECTOMY HX MARYELLEN/BLO - LEG SURGERY HX FAMILY HISTORY Problem Relation Age of Onset - Breast Cancer Mother stage III - Coronary Artery Disease Mother mother, uncle - Cancer Paternal Grandfather - Colon Cancer Maternal Grandmother - Diabetes Other uncle - Stroke Maternal Grandfather Social History Substance Use Topics - Smoking status: Never Smoker - Smokeless tobacco: Never Used - Alcohol use No (Not in a hospital admission) amiodarone (PACERONE) 100 mg tablet Take 1 tablet by mouth once daily. atorvastatin (LIPITOR) 10 mg tablet Take 1 tablet by mouth daily at bedtime. metoprolol tartrate, short acting, (LOPRESSOR) 25 mg tablet Take 1 tablet by mouth every 8 hours. digoxin (LANOXIN) 125 mcg tablet Take 1 tablet by mouth once daily. enoxaparin (LOVENOX) 60 mg/0.6 mL syrg Inject 0.6 mL subcutaneously q 12 HR. furosemide (LASIX) 40 mg tablet Take 1 tablet by mouth once daily. amoxicillin (POLYMOX, AMOXIL) 500 mg capsule 4 pills one hour prior to dentist Cyanocobalamin (VITAMIN B-12) 1,000 mcg subl Dissolve 1 tablet under the tongue once daily. calcium carbonate (CALTRATE) 600 mg calcium (1,500 mg) tab Take 600 mg by mouth once daily. pramipexole (MIRAPEX) 0.25 mg tablet Take 0.25 mg by mouth daily at bedtime. PROAIR HFA 90 mcg/actuation inhaler 2 Puffs every 6 hours as needed for Wheezing/Shortness of Breath. cholestyramine (QUESTRAN) 4 gram packet Take 1 Packet by mouth once daily. gabapentin (NEURONTIN) 100 mg capsule Take 200 mg by mouth daily at bedtime. alendronate (FOSAMAX) 70 mg tablet Take 70 mg by mouth every Thursday. Biotin-Silicon Cxil-A-Ntjevzga 5,000 mcg-100 mg- 50 mg tab Take 1 tablet by mouth once daily. multivitamin tablet Take 1 tablet by mouth once daily. Cholecalciferol, Vitamin D3, 1,000 unit cap Take 1,000 Units by mouth once daily. warfarin (COUMADIN) 1 mg tablet Take 0.5mg (1/2 tablet) daily. ALLERGIES No Known Allergies REVIEW OF SYSTEMS: PAIN ASSESSMENT: Negative for pain, history of chronic pain, or current treatment for a chronic pain condition. GENERAL: No weight loss, malaise or fevers NECK: Negative for lumps, goiter, pain and significant neck swelling RESPIRATORY: Negative for cough, wheezing or shortness of breath. CARDIOVASCULAR: Negative for chest pain, leg swelling or palpitations. GI: Negative for abdominal discomfort, blood in stools or black stools or change in bowel habits : No history of dysuria, frequency or incontinence MUSCULOSKELETAL: Negative for joint pain or swelling, back pain or muscle pain. SKIN: Negative for lesions, rash, and itching. PSYCH: Negative for sleep disturbance, mood disorder and recent psychosocial stressors. HEMATOLOGY/LYMPHOLOGY Negative for prolonged bleeding, bruising easily or swollen nodes. ENDOCRINE: Negative for cold or heat intolerance, polyuria, polydipsia and goiter. NEURO: No history of headaches, syncope, paralysis, seizures or tremors See HPI Objective PHYSICAL EXAM: BP 102/62 (BP Site: Left Arm) Pulse 85 Resp 20 Ht 5' 2 (1.575 m) Wt 142 lb (64.4 kg) SpO2 96% BMI 25.97 kg/m? Body surface area is 1.68 meters squared. STS RISK CALCULATOR: 4.047% General Appearance: well developed and no distress Skin: warm and dry Neck: no JVD, no carotid bruits and thyroid not palpable Lungs: clear and respiratory effort: normal Heart: regular rhythm, S1, S2 normal and no murmur Peripheral Vascular/Arteries: pulses intact, dorsalis pedis +2 and radial +2 Abdomen: soft, non-tender and bowel sounds present Genitourinary: voiding without difficulty Musculoskeletal: no deformities Neurologic/Psychiatric: oriented to time, place and person and steady gait Extremities: normal exam of the extremities and no edema Lines, Drains, and Airways No matching active lines, drains, or airways @LDAASSESS(2::::8:)@ DATA: Diagnostic tests reviewed for today's visit: Significant Lab Results Cardiac Catheterization Chest CT Scan Chest X-RAY ECHO EKG Assessment/Plan ASSESSMENT/PLAN: 1. Persistent atrial fibrillation (HCC) - ICD9: 427.31, ICD10: I48.1 (primary diagnosis) -c/w current regimen: Lovenox(Temperary)/BB 2. 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 De Los Santos: MVR/MAZE/LAAC - HAND P updated, and is consistent with recent evaluation with Dr. De Los Santos -reviewed all pre-op labs, images and reports -MRSA swap done previously in hospital -pre-op teaching and consultation done -CHG solution given to patient along with instructions -contact offered for further concerns - to take BB and ASA on DOS while continue bridging Lovenox until the day before surgery. -MUPIROCIN Ointment was given from hospital will start 04/10 Rosaline Lauren APRN.CNP Tests/Labs Ordered: 1. None SIGNATURE: Rosaline Lauren APRN.CNP PATIENT NAME: Gloria Moreland Quincy DATE: April 09, 2018 TIME: 2:17 PM PAGER/CONTACT #:[phone] ETX [id number] CNOV Observed: 04/09/2018 Status: COMPLETED Source: [place] 1:00 PM CLINIC OTHER [place] REPOSITORY Office Visit (AGVASACC) GLORIA MATHEW ([id number]) 1940 F Date Time Provider Department 04/09/18 1:00 PM ROSALINE LAUREN (DITTO MACHINE OPERATOR) AGVASACC During your visit today, we recorded the following information about you: Pulse Respiration Blood pressure Weight 85/minute 20/minute 102/62 64.4 kg Height 1.575 m Nadia Eastman LPN 04/09/2018 1:07 PM Signed CARDIAC REHAB 5 METER WALK TEST SERVICE DATE: 04/09/2018 SERVICE TIME: 1306 ASSESSMENT: SIGNATURE: Nadia Eastman LPN PATIENT NAME: Gloria Jeffersyder DATE: April 09, 2018 TIME: 1:06 PM PAGER/CONTACT #: [phone] 1. 5.40 sec 2. 4.49 sec 3. 4.46 sec CALLIE Child APRN.CNP, APRN.CNP 04/09/2018 2:16 PM Addendum [facility] Pre-Admission Patient Instruction You are scheduled for surgery (Outpatient/Inpatient) located on the 2nd Floor on: 04/16/2018 Please report to the 2nd Floor Surgical Waiting Area at: 6 AM Do not stop at front entrance registration. Come in the Front Doors / Main Entrance 1. Do not eat or drink anything, including water and coffee, after 12 AM on the morning of your surgery. This is important because if you do, your surgery may have to be cancelled. Eat a light supper the evening before surgery or follow specific doctor's instructions. 2. Oral hygiene and a shower or bath is required the evening before or the morning of surgery. Use the Hibiclens body wash supplied to you today. 3. Do not chew gum the morning of surgery. 4. Notify your doctor if you develop a cold, sore throat, fever or other changes in your physical condition. 5. No alcohol 24 hours before or after surgery and refrain from smoking the morning of surgery and immediately following surgery. 6. Leave valuables such as rings, watches and money at home. Remove all make-up and nail icelandic before admission. We need to check your circulation. Remove jewelry from all piercings, tongue included, as no metal can go into surgery. 7. Wear loose, comfortable clothing that will accommodate bandages. 8. You will be asked to remove glasses and contacts prior to surgery. Please bring a case. 9. Your length of stay will be determined by your surgeon and the anesthesiologist. 10. Two family members (excluding children under age 13) may stay with you the day of surgery on site. On the morning of surgery, they will be instructed on how to download an willem to their smart phone to receive updates through your surgery. 11. Please bring a list of any medication you are taking including dose and the condition for which you are being treated. ? Please do a respiratory treatment prior to coming to the hospital on the day of your surgery. Medication Notes: ? Aspirin YES 81 mg ? Beta edson (names of the medications such as : Metoptolol YES ? Anticoagulant STOP COUMADIN, CONTINUE USING LOVENOX UNTIL 04/15 pm @8PM ? Mupirocin ointment: Please use a pea sized amount on a q- tip to apply inside your nose twice daily for five days prior to surgery. Start 04/10 AND STOP ON 04/14 Rosaline Lauren APRN.CNP April 09, 2018 Rosaline Lauren APRN.CNP, APRN.CNP 04/09/2018 4:55 PM Signed CARDIOTHORACIC SURGERY CONSULT / HANDP SERVICE DATE: 04/09/2018 SERVICE TIME: 2:17 PM Subjective PRIMARY SERVICE: Cardiothoracic Surgery CHIEF COMPLAINT: Patient is here for PAT, HAND P, MRSA SWAP and Pre-op teaching for surgery. HPI: This is a 77 year old female with PMH of moderately severe MR with moderate MS, rheumatic fever, Afib with RVR (new), TRISH (on Cpap) and IBS, who presented to ED with elevated INR (13), SOB and some chest discomfort/palpitation. Patient was recently diagnosed with A fib and was started on metoprolol and Coumadin by Dr. Perez's TUNNELLER on 03/16. Her HR was still high which her metoprolol dose was increased to 25 mg BID subsequently. Patient has been following Dr. Perez for her MR, MS with series of Echo studies and was scheduled to have L/R HC and MEERA done on 03/31 electively. She was advised to ED from coumadin clinic with elevated INR on Thursday. In ED, she was found to have HR of 140s-150s, therefore, she received IV metoprolol and digoxin in addition to Vit K for the supra therapeutic INR. CXR found her to have bilateral pleural effusion with clinical symptom of SOB, so she was admitted for acute respiratory management with diuresis. During the interim, patient was found to have renal calculi on the left kidney, which subsequently resolved spontaneously without intervention. Consult to CTS is placed for Mitral valve evaluation. Patient denied chest pain, she does report some chest palpitation, mild shortness of breath with exertions and worsening of weakness, especially in her leg which was very debilitaing . Denied orthopnea or PND, no LH/DZ, syncope/presyncope or leg edema. ? Patient is seen today, she denied any SOB or chest palpitation PAST MEDICAL HISTORY Diagnosis Date - Breast mass, right - IBS (irritable bowel syndrome) - Mitral valve regurgitation - Mitral valve stenosis - Pulmonary HTN (HCC) - Tricuspid regurgitation PAST SURGICAL HISTORY Procedure Laterality Date - BREAST BIOPSY - CHOLECYSTECTOMY HX 10/02/2011 - HYSTERECTOMY HX MARYELLEN/BLO - LEG SURGERY HX FAMILY HISTORY Problem Relation Age of Onset - Breast Cancer Mother stage III - Coronary Artery Disease Mother mother, uncle - Cancer Paternal Grandfather - Colon Cancer Maternal Grandmother - Diabetes Other uncle - Stroke Maternal Grandfather Social History Substance Use Topics - Smoking status: Never Smoker - Smokeless tobacco: Never Used - Alcohol use No (Not in a hospital admission) amiodarone (PACERONE) 100 mg tablet Take 1 tablet by mouth once daily. atorvastatin (LIPITOR) 10 mg tablet Take 1 tablet by mouth daily at bedtime. metoprolol tartrate, short acting, (LOPRESSOR) 25 mg tablet Take 1 tablet by mouth every 8 hours. digoxin (LANOXIN) 125 mcg tablet Take 1 tablet by mouth once daily. enoxaparin (LOVENOX) 60 mg/0.6 mL syrg Inject 0.6 mL subcutaneously q 12 HR. furosemide (LASIX) 40 mg tablet Take 1 tablet by mouth once daily. amoxicillin (POLYMOX, AMOXIL) 500 mg capsule 4 pills one hour prior to dentist Cyanocobalamin (VITAMIN B-12) 1,000 mcg subl Dissolve 1 tablet under the tongue once daily. calcium carbonate (CALTRATE) 600 mg calcium (1,500 mg) tab Take 600 mg by mouth once daily. pramipexole (MIRAPEX) 0.25 mg tablet Take 0.25 mg by mouth daily at bedtime. PROAIR HFA 90 mcg/actuation inhaler 2 Puffs every 6 hours as needed for Wheezing/Shortness of Breath. cholestyramine (QUESTRAN) 4 gram packet Take 1 Packet by mouth once daily. gabapentin (NEURONTIN) 100 mg capsule Take 200 mg by mouth daily at bedtime. alendronate (FOSAMAX) 70 mg tablet Take 70 mg by mouth every Thursday. Biotin-Silicon Jzqo-C-Npkxuyyd 5,000 mcg-100 mg- 50 mg tab Take 1 tablet by mouth once daily. multivitamin tablet Take 1 tablet by mouth once daily. Cholecalciferol, Vitamin D3, 1,000 unit cap Take 1,000 Units by mouth once daily. warfarin (COUMADIN) 1 mg tablet Take 0.5mg (1/2 tablet) daily. ALLERGIES No Known Allergies REVIEW OF SYSTEMS: PAIN ASSESSMENT: Negative for pain, history of chronic pain, or current treatment for a chronic pain condition. GENERAL: No weight loss, malaise or fevers NECK: Negative for lumps, goiter, pain and significant neck swelling RESPIRATORY: Negative for cough, wheezing or shortness of breath. CARDIOVASCULAR: Negative for chest pain, leg swelling or palpitations. GI: Negative for abdominal discomfort, blood in stools or black stools or change in bowel habits : No history of dysuria, frequency or incontinence MUSCULOSKELETAL: Negative for joint pain or swelling, back pain or muscle pain. SKIN: Negative for lesions, rash, and itching. PSYCH: Negative for sleep disturbance, mood disorder and recent psychosocial stressors. HEMATOLOGY/LYMPHOLOGY Negative for prolonged bleeding, bruising easily or swollen nodes. ENDOCRINE: Negative for cold or heat intolerance, polyuria, polydipsia and goiter. NEURO: No history of headaches, syncope, paralysis, seizures or tremors See HPI Objective PHYSICAL EXAM: BP 102/62 (BP Site: Left Arm) Pulse 85 Resp 20 Ht 5' 2 (1.575 m) Wt 142 lb (64.4 kg) SpO2 96% BMI 25.97 kg/m? Body surface area is 1.68 meters squared. STS RISK CALCULATOR: 4.047% General Appearance: well developed and no distress Skin: warm and dry Neck: no JVD, no carotid bruits and thyroid not palpable Lungs: clear and respiratory effort: normal Heart: regular rhythm, S1, S2 normal and no murmur Peripheral Vascular/Arteries: pulses intact, dorsalis pedis +2 and radial +2 Abdomen: soft, non-tender and bowel sounds present Genitourinary: voiding without difficulty Musculoskeletal: no deformities Neurologic/Psychiatric: oriented to time, place and person and steady gait Extremities: normal exam of the extremities and no edema Lines, Drains, and Airways No matching active lines, drains, or airways @LDAASSESS(2::::8:)@ DATA: Diagnostic tests reviewed for today's visit: Significant Lab Results Cardiac Catheterization Chest CT Scan Chest X-RAY ECHO EKG Assessment/Plan ASSESSMENT/PLAN: 1. Persistent atrial fibrillation (HCC) - ICD9: 427.31, ICD10: I48.1 (primary diagnosis) -c/w current regimen: Lovenox(Temperary)/BB 2. 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 De Los Santos: MVR/MAZE/LAAC - HAND P updated, and is consistent with recent evaluation with Dr. De Los Santos -reviewed all pre-op labs, images and reports -MRSA swap done previously in hospital -pre-op teaching and consultation done -CHG solution given to patient along with instructions -contact offered for further concerns - to take BB and ASA on DOS while continue bridging Lovenox until the day before surgery. -MUPIROCIN Ointment was given from hospital will start 04/10 Rosaline Lauren APRN.CNP Tests/Labs Ordered: 1. None SIGNATURE: Rosaline Lauren APRN.CNP PATIENT NAME: Gloria Mathew DATE: April 09, 2018 TIME: 2:17 PM PAGER/CONTACT #:[phone] ETX [id number] Referring Provider: JEAN-PIERRE PEREZ [[id number]] Allergies As of Date: 04/09/2018 (No Known Allergies) Date Reviewed: 04/09/2018 Reviewed by: Nadia (Callie) Jaren - Fully Assessed Reason for Visit: Pre-Op Teaching [134] Cmt: Pre op visit MVR, Maze and ligation of atrial appendage Primary Visit Diagnosis:Persistent atrial fibrillation (HCC) [I48.1] Other Visit Diagnosis:Rheumatic mitral stenosis [I05.0] Prescriptions as of 04/09/2018 Sig: AMIODARONE 100 MG TABLET Take 1 tablet by mouth once d* ATORVASTATIN 10 MG TABLET Take 1 tablet by mouth daily * METOPROLOL TARTRATE 25 MG TAB* Take 1 tablet by mouth every * DIGOXIN 125 MCG TABLET Take 1 tablet by mouth once d* ENOXAPARIN 60 MG/0.6 ML SUBCU* Inject 0.6 mL subcutaneously * FUROSEMIDE 40 MG TABLET Take 1 tablet by mouth once d* AMOXICILLIN 500 MG CAPSULE 4 pills one hour prior to den* CYANOCOBALAMIN (VIT B-12) 1,0* Dissolve 1 tablet under the t* CALCIUM CARBONATE 600 MG CALC* Take 600 mg by mouth once mirta* PRAMIPEXOLE 0.25 MG TABLET Take 0.25 mg by mouth daily a* PROAIR HFA 90 MCG/ACTUATION A* 2 Puffs every 6 hours as need* CHOLESTYRAMINE (WITH SUGAR) 4* Take 1 Packet by mouth once d* GABAPENTIN 100 MG CAPSULE Take 200 mg by mouth daily at* ALENDRONATE 70 MG TABLET Take 70 mg by mouth every Sat* BIOTIN 5,000 MCG-SILICON DIOX* Take 1 tablet by mouth once d* MULTIVITAMIN TABLET Take 1 tablet by mouth once d* CHOLECALCIFEROL (VITAMIN D3) * Take 1,000 Units by mouth onc* WARFARIN 1 MG TABLET Take 0.5mg (1/2 tablet) daily. 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 Mitral valve stenosis [I05.0] Mitral valve regurgitation [I34.0] Paroxysmal atrial fibrillation (HCC) [I48.0] INVALID FOR* intermediate accountant (current) use of 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s [Z79.*INVALID FOR* intermediate accountant current use of 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 [Z79.01]*INVALID FOR* A-fib (HCC) [I48.91] INVALID FOR* Rheumatic mitral stenosis [I05.0] INVALID FOR* More... Mitral regurgitation [I34.0] INVALID FOR* More... Other instructions from your clinician: [facility] Pre-Admission Patient Instruction You are scheduled for surgery (Outpatient/Inpatient) located on the 2nd Floor on: 04/16/2018 Please report to the 2nd Floor Surgical Waiting Area at: 6 AM Do not stop at front entrance registration. Come in the Front Doors / Main Entrance 1. Do not eat or drink anything, including water and coffee, after 12 AM on the morning of your surgery. This is important because if you do, your surgery may have to be cancelled. Eat a light supper the evening before surgery or follow specific doctor's instructions. 2. Oral hygiene and a shower or bath is required the evening before or the morning of surgery. Use the Hibiclens body wash supplied to you today. 3. Do not chew gum the morning of surgery. 4. Notify your doctor if you develop a cold, sore throat, fever or other changes in your physical condition. 5. No alcohol 24 hours before or after surgery and refrain from smoking the morning of surgery and immediately following surgery. 6. Leave valuables such as rings, watches and money at home. Remove all make-up and nail icelandic before admission. We need to check your circulation. Remove jewelry from all piercings, tongue included, as no metal can go into surgery. 7. Wear loose, comfortable clothing that will accommodate bandages. 8. You will be asked to remove glasses and contacts prior to surgery. Please bring a case. 9. Your length of stay will be determined by your surgeon and the anesthesiologist. 10. Two family members (excluding children under age 13) may stay with you the day of surgery on site. On the morning of surgery, they will be instructed on how to download an willem to their smart phone to receive updates through your surgery. 11. Please bring a list of any medication you are taking including dose and the condition for which you are being treated. ? Please do a respiratory treatment prior to coming to the hospital on the day of your surgery. Medication Notes: ? Aspirin YES 81 mg ? Beta edson (names of the medications such as : Metoptolol YES ? Anticoagulant STOP COUMADIN, CONTINUE USING LOVENOX UNTIL 04/15 pm @8PM ? Mupirocin ointment: Please use a pea sized amount on a q-tip to apply inside your nose twice daily for five days prior to surgery. Start 04/10 AND STOP ON 04/14 Rosaline Lauren APRN.CNP April 09, 2018 Visit Notes: >> Nadia Eastman ThuApr 09, 2018 1:04 PM Status: Signed CARDIAC REHAB 5 METER WALK TEST SERVICE DATE: 04/09/2018 SERVICE TIME: 1306 ASSESSMENT: SIGNATURE: Nadia Eastman LPN PATIENT NAME: Gloria Mathew DATE: April 09, 2018 TIME: 1:06 PM PAGER/CONTACT #: [phone] 1. 5.40 sec 2. 4.49 sec 3. 4.46 sec Nadia Eastman LPN Encounter Status:Closed by ROSALINE LAUREN CNP on 04/09/18 CHEST 2 VIEWS Observed: 04/09/2018 Status: F Source: [facility] 12:41 PM HEALTH SYSTEM REPOSITORY Performed at [facility] APPROVED BY: MAGGIE COWAN MD EXAMINATION: CHEST RADIOGRAPH (2 VIEW FRONTAL & LATERAL) CLINICAL HISTORY: Preop exam for heart valve replacement MQ: [id number] Comparison: 03/24/2018 RESULT: Lines, tubes, and devices: None. Lungs and pleura: The trachea is normal in position. The previous small pleural effusions, interstitial edema and bilateral airspace opacity have resolved. No vascular congestion or parenchymal consolidation is seen. Cardiomediastinal silhouette: The heart is enlarged.. IMPRESSION: Cardiomegaly. Resolution of pleural effusions and airspace opacity. CONSULT PROG Observed: 04/08/2018 Status: COMPLETED Source: [place] 3:53 PM CLINIC OTHER CAMPUS REPOSITORY HNO ID: [id number] Author: Rosaline (Tom) JAQUI Lauren Service: Cardiovascular Surgery Author Type: Nurse Practitioner Type: Consult Progress Note Filed: 04/14/2018 8:26 AM Note Text: [facility] Surgery Pre-Op Open Heart Check List Patient Info: Gloria Mathew 1940 77 year old Patient has no known allergies. HPI: This is a 77 year old female with PMH of moderately severe MR with moderate MS, rheumatic fever, Afib with RVR (new), TRISH (on Cpap) and IBS, who presented to ED with elevated INR (13), SOB and some chest discomfort/palpitation. Patient was recently diagnosed with A fib and was started on metoprolol and Coumadin by Dr. Perez's TUNNELLER on 03/16. Her HR was still high which her metoprolol dose was increased to 25 mg BID subsequently. Patient has been following Dr. Perez for her MR, MS with series of Echo studies and was scheduled to have L/R HC and MEERA done on 03/31 electively. She was advised to ED from coumadin clinic with elevated INR on Thursday. In ED, she was found to have HR of 140s- 150s, therefore, she received IV metoprolol and digoxin in addition to Vit K for the supra therapeutic INR. CXR found her to have bilateral pleural effusion with clinical symptom of SOB, so she was admitted for acute respiratory management with diuresis. During the interim, patient was found to have renal calculi on the left kidney, which subsequently resolved spontaneously without intervention. Consult to CTS is placed for Mitral valve evaluation. Patient denied chest pain, she does report some chest palpitation, mild shortness of breath with exertions and worsening of weakness, especially in her leg which was very debilitaing . Denied orthopnea or PND, no LH/DZ, syncope/presyncope or leg edema. Last set of vitals: There were no vitals taken for this visit. Wt: 143 lb 1.3 oz (64.9 kg) BMI: 26.17 kg/(m2) Procedure: MVR/MAZE/LAAC Diagnosis: Mitral stenosis Date of Procedure: 04/16/2018 STS Risk Score: 4.047% CARE TEAM: Cardiac Surgeon: Dr. De Los Santos Supervisor Gas Meter Repair: Dr. Perez PCP: [facility] [place] Other Providers: n/a Pre-Op Testing: LABS: No results found for: TROPT HGB (g/dL) Date Value 04/01/2018 12.8 Hematocrit (%) Date Value 04/01/2018 38.6 WBC (thou/cmm) Date Value 04/01/2018 7.18 Platelet Count (thou/cmm) Date Value 04/01/2018 313 Chemistry Glucose (mg/dL) Date Value 04/02/2018 85 Potassium (mEq/L) Date Value 04/02/2018 3.8 Sodium (mEq/L) Date Value 04/02/2018 140 Chloride (mEq/L) Date Value 04/02/2018 108 CO2 (mEq/L) Date Value 04/02/2018 23 Creatinine (mg/dL) Date Value 04/02/2018 1.04 BUN (mg/dL) Date Value 04/02/2018 19 Anion Gap (no units) Date Value 04/02/2018 13 Calcium (mg/dL) Date Value 04/02/2018 8.6 Protein, Total (g/dL) Date Value 04/02/2018 6.3 Albumin (g/dL) Date Value 04/02/2018 2.6 Bilirubin, Total (mg/dL) Date Value 04/02/2018 0.5 Alkaline Phosphatase (U/L) Date Value 04/02/2018 84 AST (U/L) Date Value 04/02/2018 14 ALT (U/L) Date Value 04/02/2018 24 Coag Results for GLORIA MATHEW ( ) as of 04/08/2018 15:58 Ref. Range 04/02/2018 03:30 Prothrombin Time Latest Ref Range: 9.7 - 13.0 sec 14.3 (H) INR Latest Ref Range: 0.90 - 1.30 1.41 (H) UA Results for GLORIA MATHEW ( ) as of 04/08/2018 15:58 Ref. Range 03/27/2018 14:40 Color Unknown YELLOW Specific [place], Ur Latest Ref Range: 1.005 - 1.030 1.010 pH, Urine Latest Ref Range: 5.0 - 8.0 5.0 Protein, Urine Latest Ref Range: Negative mg/dL NEGATIVE Glucose, Urine Latest Ref Range: Negative mg/dL NEGATIVE Ketones, Urine Latest Ref Range: Negative mg/dL NEGATIVE Bilirubin, Urine Latest Ref Range: Negative NEGATIVE Urobilinogen, Urine Latest Ref Range: 0.0 - 1.0 EU/dL 0.2 RBC, Urine Latest Ref Range: 0.0 - 5.0 /hpf 1.2 EP Cells Urine Latest Ref Range: 0.0 - 5.0 /hpf 0.5 Hemoglobin, Urine Latest Ref Range: Negative NEGATIVE Bacteria, Urine Latest Ref Range: None NONE Hyaline Cast Latest Ref Range: 0.0 - 1.0 /lpf 0.4 Leukocytes Esterase Latest Ref Range: Negative NEGATIVE Nitrite Reflex Latest Ref Range: Negative NEGATIVE Urine Appearance Unknown CLEAR WBC, REFLEX Latest Ref Range: 0.00 - 5.00 /hpf 0.90 Type AND Screen: Results for GLORIA MATHEW ( ) as of 04/14/2018 08:25 Ref. Range 04/13/2018 14:00 ABO Group Unknown O RH Type Unknown Negative Antibody Screen Unknown NEGATIVE Blood Bank Comment Unknown PAT specimen RBC Cross match: 2 units held MRSA Screen: Results for GLORIA MATHEW ( ) as of 04/08/2018 15:58 Ref. Range 03/24/2018 21:05 MRSA Screen Unknown No MRSA detected. treated HGA1C Lab Results Component Value Date HBA1C 5.2 03/25/2018 HBA1C 4.7 10/01/2017 PFT/ABG: FEVI: 60% DLCO: n/a ABG: n/a . IMAGING/PROCEDURES Chest X-RAY 03/24/2018: Findings as above most likely representing moderate pulmonary edema. ? Small bilateral pleural effusions with mild coexisting bibasilar atelectasis and/or infiltrate. ? Bilateral prominence, which is most likely related to probable avascular. ? However, follow-up chest CT is recommended to exclude the possibility of adenopathy. ? ECHO 06/04/2017: Final Impressions: Left Atrium The left atrium appears severely dilated in size. ALMA ROSA is 64.81 ml/m2. Mitral Valve The mitral leaflets are moderately thickened and calcified especially the anterior leaflet. No evidence of mitral valve prolapse. Moderate to moderately severe (2-3+) mitral regurgitation. There is moderate to severe mitral valve stenosis. Peak gradient is 30 mmHg. Mean gradient is 10 mmHg. Gradients were 27 and 14 mmHg respectively on previous echo in 2011. MVA estimated at 1.33cm2 by pressure half-time method. Rheumatic affection a possibility. Tricuspid Valve Mild to moderate (1-2+) tricuspid valve regurgitation. Moderate pulmonary hypertension. Right ventricular systolic pressure is estimated at 61 mmHg. Left Ventricle Normal left ventricular size and systolic function. No regional wall motion abnormalities. LVEF is 55-60% by visual estimation. E/E' is greater than 15, suggesting high left ventricular filling pressure ? EKG 03/24/2018: Diagnosis:ATRIAL FIBRILLATION WITH RAPID VENTRICULAR RESPONSE LOW VOLTAGE QRS NONSPECIFIC ST AND T WAVE ABNORMALITY ABNORMAL ECG WHEN COMPARED WITH ECG OF 28-AUG-2011 19:10, ATRIAL FIBRILLATION HAS REPLACED SINUS RHYTHM VENT. RATE HAS INCREASED BY ?65 BPM QUESTIONABLE CHANGE IN QRS AXIS NONSPECIFIC T WAVE ABNORMALITY NOW EVIDENT IN INFERIOR LEADS T WAVE INVERSION NOW EVIDENT IN ANTERIOR LEADS ? MEERA 03/31/2018: Per Dr. Perez's note: MEERA-indication MV disease ? Findings LVEF 60%; small LV Mildly thicked trileaflet AV; trace AR, mild ?BERTO 1.7 cmsq by planimetry ? MV severe calcification, rheumatic, thickened chords, diminished opening ; ?1-2+ MR; mean gradient 17 mmhg Mod-severe MS ? TV-normal morphology; mild TR ? IMP-needs tissue MVR ? Heart catheterization 03/31/2018: R and L heart cath: indication Mitral stenosis Done via R radial artery and R fem venous approach ? Findings Normal coronaries LVG not done (60% EF on MEERA today) Calcified MV noted ? RA 4 PA 50/25 PCWP 26 LVEDP 5 LV 100/5 Aorta 95/60 ? IMP:No CAD Severe Mitral stenosis with 20-25 mmhg gradient across MV Minimal aortic stenosis ? Needs tissue MVR and probable MAZE, LA appendage excision ? ? 5 Meter Walk Test 03/30/2018: ? ASSESSMENT: 5 Meter Walk Test 5 Meter Walk Test Completed: Yes Trial 1 # of Seconds: 5.77 Trial 1 Assistive Device: None Trial 2 # of Seconds: 5.91 Trial 2 Assistive Device: None Trial 3 # of Seconds: 5.31 Trial 3 Assistive Device: None OPTIONAL TESTINGS: Carotid U/S: n/a Lower EXT ELAINE: n/a Palmar Arch:n/a Vein Mapping: n/a Dental Clearance: done CT Chest 04/02/2018: IMPRESSION: 1. There is dilation of the main pulmonary artery with prominence of the right and ?left pulmonary arteries and their proximal segmental branches as may be seen with ?pulmonary arterial hypertension. ?This likely accounts for the fullness of the hilar shadows on recent radiography. ?No definite hilar adenopathy (although evaluation is somewhat limited without intravenous contrast). ? 2. There are multiple mildly enlarged right paratracheal mediastinal lymph nodes, felt likely to be reactive. ? 3. Moderate cardiac enlargement. ?Scattered areas of groundglass attenuation bilaterally which may represent interstitial pulmonary edema but may also be seen with other inflammatory or atypical infectious processes. ? 4. There are scattered small semisolid nodules in both upper lobes measuring up to ?8 mm which may be inflammatory or infectious. ?Primary or metastatic disease is felt less likely but not excluded. ? ? Incidental Finding: ?Follow-up for these incidentally detected lung nodules with chest CT exam is recommended in 3-6 months. If stable on follow-up imaging, a repeat chest CT exam in 12 months (15-18 months from the initial exam) is recommended. ? 5. ?Punctate calcification within the upper left kidney seen in the last image likely represents a renal calculus. ? Medications Notes: Blood thinners: Patient is on following blood thinners: Aspirin -Yes, dose 81 mg, stopped Yes, date:DOS Coumadin - Yes, stopped Yes, last taken 03/23. currently on Lovenox bridge started 04/02, end 04/15 8 PM Beta Edson: Last dose of beta edson taken: DOS Perioperative Transfusion risk STS Risk Factors: Advanced age Yes Preoperative anemia No Non-CABG surgery Yes Preoperative anticoagulation Yes, Coumadin, bridge with Lovenox Clotting abnormalities Yes Female gender Yes Small body habitus No Renal insufficiency No IDDM No Sepsis No Liver disease No Preioperative Wound Healing - Vest recommended No Risk Factors: Obesity No DM No Renal Dx No CLEARANCES NEEDED Pulmonary: No Hematology: No Nephrology No Vascular surgery No Other No Rosaline Lauren APRN.TOM STALEY Observed: 04/06/2018 Status: COMPLETED Source: [place] 12:00 AM CLINIC OTHER CAMPUS REPOSITORY Telephone ([employer]) GLORIA MATHEW ([id number]) 1940 F Date Time Provider Department 04/06/18 GUI DE [place] During your visit today, we recorded the following information about you: Henrik Danny Dean 04/06/2018 1:27 PM Addendum Phoned Ms Mathew with future appointments. She's schedule for preop HANDP, cardiac teaching, MRSA swab, AND medication review 04/09/18 1:00pm with Pam Lauren CNP. Advised patient to have CXR one hour prior to office visit. This is a walk-in appointment, check in at [facility]. MVR, MAZE, LAAC 04/16/18 arrival time 6:00am procedure time 7:30am at [facility]. NPO after midnight. [employer] rep Gavin Hair [phone] notified. Allergies As of Date: 04/06/2018 (No Known Allergies) Date Reviewed: 04/01/2018 Reviewed by: Jake (Rn) MARCELLA Ruff - Fully Assessed Reason for Visit: Schedule Surgery [1330] Order(s):SURGICAL REQUEST - ELECTIVE [[id number]] Order #: [id number]: 1 Prescriptions as of 04/06/2018 Sig: AMIODARONE 100 MG TABLET Take 1 tablet by mouth once d* ATORVASTATIN 10 MG TABLET Take 1 tablet by mouth daily * METOPROLOL TARTRATE 25 MG TAB* Take 1 tablet by mouth every * DIGOXIN 125 MCG TABLET Take 1 tablet by mouth once d* ENOXAPARIN 60 MG/0.6 ML SUBCU* Inject 0.6 mL subcutaneously * FUROSEMIDE 40 MG TABLET Take 1 tablet by mouth once d* AMOXICILLIN 500 MG CAPSULE 4 pills one hour prior to den* CYANOCOBALAMIN (VIT B-12) 1,0* Dissolve 1 tablet under the t* WARFARIN 1 MG TABLET Take 0.5mg (1/2 tablet) daily. CALCIUM CARBONATE 600 MG CALC* Take 600 mg by mouth once mirta* PRAMIPEXOLE 0.25 MG TABLET Take 0.25 mg by mouth daily a* PROAIR HFA 90 MCG/ACTUATION A* 2 Puffs every 6 hours as need* CHOLESTYRAMINE (WITH SUGAR) 4* Take 1 Packet by mouth once d* GABAPENTIN 100 MG CAPSULE Take 200 mg by mouth daily at* ALENDRONATE 70 MG TABLET Take 70 mg by mouth every Sat* BIOTIN 5,000 MCG-SILICON DIOX* Take 1 tablet by mouth once d* MULTIVITAMIN TABLET Take 1 tablet by mouth once d* CHOLECALCIFEROL (VITAMIN D3) * Take 1,000 Units by mouth onc* Problem List As Of Date 04/06/2018 Noted Resolved Fibrocystic breast changes [N60.19] INVALID FOR*07/11/2015 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 Mitral regurgitation [I34.0] INVALID FOR* More... Encounter Status:Closed by HENRIK DEAN on 04/06/18 HOSP Observed: 04/06/2018 Status: COMPLETED Source: [place] 12:00 AM CLINIC OTHER CAMPUS REPOSITORY Patient:Gloria Mathew MRN: <[id number]> Height:5' 2(1.575 m) Weight:142 lb (64.411 kg) Outpatient Medications as of 04/16/18: alendronate (FOSAMAX) 70 mg tablet amiodarone (PACERONE) 100 mg tablet amoxicillin (POLYMOX, AMOXIL) 500 mg capsule aspirin, enteric coated (ASPIRIN, ENTERIC COATED) 81 mg EC tablet atorvastatin (LIPITOR) 10 mg tablet Biotin-Silicon Vjgm-F-Nsegwkpa 5,000 mcg-100 mg- 50 mg tab calcium carbonate (CALTRATE) 600 mg calcium (1,500 mg) tab Cholecalciferol, Vitamin D3, 1,000 unit cap cholestyramine (QUESTRAN) 4 gram packet Cyanocobalamin (VITAMIN B-12) 1,000 mcg subl digoxin (LANOXIN) 125 mcg tablet enoxaparin (LOVENOX) 60 mg/0.6 mL syrg furosemide (LASIX) 40 mg tablet gabapentin (NEURONTIN) 100 mg capsule metoprolol tartrate, short acting, (LOPRESSOR) 25 mg tablet multivitamin tablet pramipexole (MIRAPEX) 0.25 mg tablet PROAIR HFA 90 mcg/actuation inhaler warfarin (COUMADIN) 1 mg tablet Admission/Clinic Administered Medications as of 04/16/18: enoxaparin 40 mg injection (LOVENOX) NaCl 0.9% 2-10 mL vancomycin iv piggyback 1 g in D5W 200 mL (VANCOCIN) 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] Mitral valve stenosis [I05.0] Mitral valve regurgitation [I34.0] Paroxysmal atrial fibrillation (HCC) [I48.0] 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 Mathew in attempt informing her the needs of type and cross done in preparation for surgery this Monday 04/16. Unable to leave as it is not set up. Patient was also reminded during her PAT on 04/09/2018 that she should have T ANDS done on her way out of office that day, and it is still not completed. Phoned to patient since Thursday. Will update OR staff/Aniya PA of this issue. Rosaline Lauren APRN.CNP Progress Notes (POST DISCHARGE CALL PROGRAM): Miriam YU 04/07/2018 10:18 AM Signed PATIENT INFORMATION Record ID: [id number] Patient Name: Gloria Mathew Hospital: [facility] [place]ita: [facility] Attending: Benedicto Mcfadden Center: Internal Medicine INSTRUCTIONS All Clear SN to remind patient of next upcoming appointment date, time, location All Clear All Clear All Clear SURVEY INFORMATION Medical/Nurse Information Tech: Miriam Harmon 1. Your discharge instructions are important in guiding you through the recovery process. Is there anything I could help you clarify on your discharge instructions? (Standard Question) No 2. Do you have your follow up appointment related to your hospital stay scheduled within the next 30 days? (Standard Question) Yes 3. Do you have all the necessary equipment and supplies at home? (Standard Question) Yes 4. Many patients have concerns about their medications once they are home. Do you have any questions about getting or taking your medications? (Standard Question) No 5. Do you have any new or different symptoms? (Standard Question) No PLAN OF CARE Observed: 04/02/2018 Status: COMPLETED Source: [place] 1:56 PM CLINIC OTHER CAMPUS REPOSITORY HNO ID: [id number] Author: Danni Sun (Pharmacist) Service: Pharmacy Author Type: Pharmacist Type: Plan of Care Filed: 04/02/2018 1:59 PM Note Text: DISCHARGE MEDICATION REVIEW AND COUNSELING BY PHARMACY Patient Name: Gloria Mathew Account #: Data Unavailable Admission Date: 03/24/2018 Date of Contact: April 02, 2018 Time of Contact: 1:57 PM LEARNERS Persons Present: Patient Primary Learner: Patient Medication list was reviewed by a Pharmacist for drug interactions or drug related problems:Yes The patient was counseled on the medication(s) listed below and was given the opportunity to ask questions regarding indication, dosage, side effects and drug interactions READINESS TO LEARN COGNITIVE ABILITY:Alert and oriented MOTIVATION TO LEARN:Eager Interested FAMILY SUPPORT:None - Unavailable/disinterested INSTRUCTION PROVIDED TO:Patient PATIENT LEARNS BEST BY:Individual Instruction Written Instruction - Hand-outs Verbal Instruction Demonstration Multiple Methods FACTORS AFFECTING LEARNING:None PHYSICAL LIMITATIONS AFFECTING LEARNING:None LEARNING RESPONSE PATIENT / FAMILY RESPONSE:Verbalizes understanding of: The signs and symptoms of a worsening condition that warrant a call to the physician. The correct actions to take to manage symptoms associated with his/her disease/illness. The physical restrictions and recommendations after discharge from the hospital. Accurate knowledge of prescribed medication prior to discharge. The correct action to take if medication dose is missed. The side effects associated with the medication that warrant a call to the physician. Reviewed in detail how to administer Lovenox injections We reviewed all new medications and planned out a dosing schedule for her when she gets home to help improve compliance Contacted [employer] earlier in day to have Rxs filled DANNI SUN PHARMACIST April 02, 2018 1:57 PM Medication List START taking these medications amiodarone 100 mg tablet Commonly known as: PACERONE Take 1 tablet by mouth once daily. amoxicillin 500 mg capsule Commonly known as: POLYMOX, AMOXIL 4 pills one hour prior to dentist atorvastatin 10 mg tablet Commonly known as: LIPITOR Take 1 tablet by mouth daily at bedtime. digoxin 125 mcg tablet Commonly known as: LANOXIN Take 1 tablet by mouth once daily. enoxaparin 60 mg/0.6 mL Syrg Commonly known as: LOVENOX Inject 0.6 mL subcutaneously q 12 HR. furosemide 40 mg tablet Commonly known as: LASIX Take 1 tablet by mouth once daily. CHANGE how you take these medications metoprolol tartrate (short acting) 25 mg tablet Commonly known as: LOPRESSOR Take 1 tablet by mouth every 8 hours. What changed: when to take this warfarin 1 mg tablet Commonly known as: COUMADIN Take 0.5mg (1/2 tablet) daily. What changed: Another medication with the same name was removed. Continue taking this medication, and follow the directions you see here. CONTINUE taking these medications alendronate 70 mg tablet Commonly known as: FOSAMAX Biotin-Silicon Fxou-T-Pgfavmaj 5,000 mcg -100 mg-50 mg Tab calcium carbonate 600 mg calcium (1,500 mg) Tab Commonly known as: CALTRATE Cholecalciferol (Vitamin D3) 1,000 unit Cap cholestyramine 4 gram packet Commonly known as: QUESTRAN gabapentin 100 mg capsule Commonly known as: NEURONTIN multivitamin tablet pramipexole 0.25 mg tablet Commonly known as: MIRAPEX PROAIR HFA 90 mcg/actuation inhaler Generic drug: albuterol HFA VITAMIN B-12 1,000 mcg Subl Generic drug: Cyanocobalamin STOP taking these medications simvastatin 10 mg tablet Commonly known as: ZOCOR Where to Get Your Medications Information about where to get these medications is not yet available Ask your nurse or doctor about these medications ? amiodarone 100 mg tablet ? amoxicillin 500 mg capsule ? atorvastatin 10 mg tablet ? digoxin 125 mcg tablet ? enoxaparin 60 mg/0.6 mL Syrg ? furosemide 40 mg tablet ? metoprolol tartrate (short acting) 25 mg tablet PLAN OF CARE Observed: 04/02/2018 Status: COMPLETED Source: [place] 12:25 PM [facility] REPOSITORY HNO ID: [id number] Author: Candis Rogers ([employer]) Service: (none) Author Type: (none) Type: Plan of Care Filed: 04/02/2018 12:26 PM Note Text: Pharmacy Discharge Medication Service: This patient has elected to receive their discharge prescriptions through the [facility] Bedside Prescription Delivery program. The prescriptions are currently being processed. A follow-up note will be entered once the prescriptions have been filled and delivered to the patient. Please contact me with any questions or updates to the patient's discharge medications. Candis Rogers ([employer]) DCT Contact Info: extension [phone] or [phone] Pt copay total is 83.24$ PLAN OF CARE Observed: 04/02/2018 Status: COMPLETED Source: [place] 12:11 PM [facility] REPOSITORY HNO ID: [id number] Author: Candis Rogers ([employer]) Service: (none) Author Type: (none) Type: Plan of Care Filed: 04/02/2018 12:25 PM Note Text: NURSE OUTREACH CASE MANAGER BEDSIDE DELIVERY SURVEY 1. Patient to use [facility] Bedside Delivery - YES 2. If fax, patient would like us to fax prescriptions to Pharmacy of choice a. Pharmacy: b. Location: c. Phone: 3. Insurance card on file - YES 4. Credit card for payment - YES Amoxil 500 mg Lovenox 60 mg/0.6 ml Pacerone 100 mg Lasix 40 mg Lanoxin 125 mcg Lopressor 25 mg Contact Candis at [id number] with questions prior to discharge copay total is 83.24$ CNDS Observed: 04/02/2018 Status: COMPLETED Source: [place] 11:19 AM [facility] REPOSITORY HNO ID: [id number] Author: Benedicto Mcfadden Service: Hospital Medicine Author Type: Physician Type: Discharge Summaries Filed: 04/02/2018 1:29 PM Note Text: DISCHARGE SUMMARY PATIENT NAME: Gloria Mathew Code Status: Not on file Highest Readmission Risk Score: 19 The 30 day readmissions risk score is derived from an internally validated risk model which evaluates patient level characteristics, utilization history, medication orders and lab results up until the day of discharge. Patients with a score of 40 or above are considered highest risk for readmission. Specific patient level drivers will be listed at the bottom of the summary. Admission Information Admission Information ADMIT DATE: 03/24/2018 DISCHARGE DATE: April 02, 2018 MY DOCTORS AND MEDICAL TEAM: My Main Hospital Doctor: Benedicto Mcfadden Primary Care Provider: Loree Small MD My Medical Team Members: Treatment Team: Attending Provider: Benedicto Mcfadden Consulting: Garo Baires Consulting: Gui De Los Santos Primary Service: Kvng Hopkins MY CONDITION AT DISCHARGE: Stable REASON I WAS IN THE HOSPITAL: Afib with RVR SUMMARY OF WHAT HAPPENED WHILE I WAS IN THE HOSPITAL: ? 1. Paroxysmal A fib with RvR: HR better controlled, on Amio, Metoprolol and Digoxin. Patient will be discharged on Levonox, coumadin to be started after valve replacement surgery. ? 2. Left flank pain with left hydronephrosis with perinephric fat stranding with left nephrolithiasis:?possible passed stone. UA negative for UTI. PVR low 112cc.Pain improved on tylenol.Evaluated by Urology- no further plan by urology. ? ? 3. Severe MS and MR: - Had LHC/ RHC Severe Mitral stenosis with 20-25 mmhg gradient across MV. No CAD.wedge 26. Normal coronaries. ? Patient will be discharged on 03/23 to have some dental work before having MVR/ AVR. ? 4. IBS:Stable, on Dicyclomine, plan: continue. ? 5. Remote hx of uterine cancer?s/p hsyterectomy and XRT 30 years or so ago OTHER PROBLEMS/DIAGNOSIS: Active Problems: A-fib (HCC) Resolved Problems: * No resolved hospital problems. * OPERATIONS PERFORMED WHILE IN THE HOSPITAL: None IMPORTANT TEST/PROCEDURES: No procedures performed TEST RESULTS NOT AVAILABLE AT THIS TIME: No pending results Discharge Disposition Discharge Disposition: Home Activity When You Leave the Hospital Resume pre-hospital activity Diet Instructions Resume your pre-hospital diet Follow Up Appointments Follow-Up Appointment With: Cardiology When: In 2 weeks Follow-Up Appointment With: Primary care When: In 1 week Additional Provider to Provider Information: Transitions of Care Critical Issues: Please stop taking coumadin while you are on Lovenox. You will likely be starting taking coumadin back after surgery. Inject Lovenox two times a day. Hold the dose on Thursday night since your dentist appointment is on Thursday morning. Don't take lovenox on Thursday if you are going to go back to dentist on Thursday. In general you should hold Lovenox 12 hours before the dental procedure. You will be hearing back from cardiac surgery regarding the surgery time. Continue to take lovenox twice a day ( every 12 hours ) till the surgery time, unless you hear something different by cardiac surgery. Sepsis not present FOLLOW-UP APPOINTMENTS ALREADY SCHEDULED WITH A [facility] PROVIDER: Future Appointments Date Time Provider Department Center 06/14/2018 11:00 AM [facility]AR JONES [facility] 07/12/2018 2:00 PM Jean-Pierre Perez [facility] ALL[facility] No Known Allergies DISCHARGE MEDICATION: Current Discharge Medication List START taking these medications amiodarone (PACERONE) 100 mg Take 100 mg by mouth once daily. Qty: 90 tablet Refills: 1 atorvastatin (LIPITOR) 10 mg Take 10 mg by mouth daily at bedtime. Qty: 60 tablet Refills: 1 digoxin (LANOXIN) 0.125 mg Take 0.125 mg by mouth once daily. Qty: 60 tablet Refills: 1 enoxaparin (LOVENOX) 60 mg Inject 60 mg subcutaneously q 12 HR. Qty: 28 Syringe Refills: 0 furosemide (LASIX) 40 mg Take 40 mg by mouth once daily. Qty: 60 tablet Refills: 1 amoxicillin (POLYMOX, AMOXIL) 500 mg capsule 4 pills one hour prior to dentist Qty: 12 capsule Refills: 3 CONTINUE these medications which have CHANGED metoprolol tartrate (short acting) (LOPRESSOR) 25 mg Take 25 mg by mouth every 8 hours. Qty: 60 tablet Refills: 1 CONTINUE these medications which have NOT CHANGED Cyanocobalamin 1 tablet Dissolve 1 tablet under the tongue once daily. warfarin (COUMADIN) 1 mg tablet Take 0.5mg (1/2 tablet) daily. Qty: 30 tablet Refills: 1 calcium carbonate (CALTRATE) 600 mg Take 600 mg by mouth once daily. pramipexole (MIRAPEX) 0.25 mg Take 0.25 mg by mouth daily at bedtime. PROAIR HFA 2 Puffs 2 Puffs every 6 hours as needed for Wheezing/Shortness of Breath. cholestyramine (QUESTRAN) 1 Packet Take 1 Packet by mouth once daily. gabapentin (NEURONTIN) 200 mg Take 200 mg by mouth daily at bedtime. alendronate (FOSAMAX) 70 mg Take 70 mg by mouth every Thursday. Biotin-Silicon Swyo-U-Zkgxjqkm 1 tablet Take 1 tablet by mouth once daily. multivitamin 1 tablet Take 1 tablet by mouth once daily. Cholecalciferol (Vitamin D3) 1,000 Units Take 1,000 Units by mouth once daily. STOP taking these medications simvastatin (ZOCOR) 10 mg Comments: Reason for Stopping: BP 92/54 Pulse 90 Temp 36.8 ?C (98.2 ?F) (Oral) Resp 20 Ht 157.5 cm (5' 2) Wt 64.9 kg (143 lb 1.3 oz) SpO2 97% BMI 26.17 kg/m? Constitutional - Vitals as above, NAD Respiratory - Clear to auscultate both sides. No crackles, wheezes or rales, No labored breathing noted CVS- RRR, no murmur/gallop/rub, pulse 2+ GI- NTND, bowel sounds normally heard The patient's risk for 30-day readmission is determined using the following contributing factors: Pt variables contributing to increased readmission risk: 19 Most Recent BUN Result 16 Active Medication Orders 8.2 First Resulted Calcium During Admission 1 Previous ED Visit (6 mos.)? 1 Number of Previous ED Visits (6 mos.) 1 Insurance - Medicare 1 Discharge Disposition - Home 1 Active Anticoagulant TIME OF CARE: Discharge Management: I personally spent greater than 30 minutes involved in the discharge management of this patient. SIGNATURE: Benedicto Mcfadden MD PAGER/CONTACT #: DATE: April 02, 2018 TIME: 11:19 AM PLAN OF CARE Observed: 04/02/2018 Status: COMPLETED Source: [place] 11:10 AM [facility] REPOSITORY HNO ID: [id number] Author: Rosaline Lauren APRN.CNP Service: Cardiovascular Surgery Author Type: Nurse Practitioner Type: Plan of Care Filed: 04/02/2018 11:14 AM Note Text: CARDIOTHORACIC SURGERY PLAN OF CARE SERVICE DATE: April 02, 2018 SERVICE TIME: 11:11 AM Visited patient today. Offered the cardiac surgery binder. I went over post-op recovery expectations (ICU and [id number]) with patient. As well as went over briefly with the content from the cardiac surgery book. Pre-op check list reviewed: will need dental clearance. Communicated with RN as well as Dr. Perez of the plan. MRSA result reviewed and treatment order reviewed. patient will have her dental visit on Thursday and will update me with the following plan so we could line her up with the relevant surgical plans, including PAT, Lovenox bridging. Questions and concerns are addressed. Patient has no questions at this point. Rosaline Lauren APRN.TOM CONSULT PROG Observed: 04/02/2018 Status: COMPLETED Source: [place] 9:55 AM [facility] REPOSITORY HNO ID: [id number] Author: Jean-Pierre Perez Service: Cardiovascular Medicine Author Type: Physician Type: Consult Progress Note Filed: 04/02/2018 10:19 AM Note Text: PROGRESS NOTE CARDIOLOGY SERVICE SERVICE DATE: 04/02/2018 SERVICE TIME: 9:56 AM Subjective INTERIM HISTORY: NO change sob, palps; no chest pain or syncope Objective PHYSICAL EXAM: Body mass index is 26.17 kg/m?. O2 Therapy: Continuous Positive Airway Pressure No Data Recorded Patient Vitals for the past 24 hrs: BP Temp Temp src Pulse Resp SpO2 Weight 04/02/18 0700 - - - - - - 64.9 kg (143 lb 1.3 oz) 04/02/18 0632 92/54 - - 90 - - - 04/02/18 0015 113/98 36.8 ?C (98.2 ?F) Oral 93 20 97 % - 04/01/18 2130 94/56 - - (!) 125 - - - 04/01/18 1142 107/58 - - - - - - 04/01/18 1120 103/64 36.8 ?C (98.2 ?F) Oral 107 18 97 % - Tele afib at 90-110 NAD Depressed affect Nl speech CHest no wheeze no rale COR irreg sys m Abd nontender no rebound R radial cath site clean Mild bruising bilat DP 1-2+ Tr edema Nl mentation Moves all extremities MEDICATIONS: Current hospital medications: amiodarone 100 mg tab(s) (PACERONE) 100 mg ORAL DAILY enoxaparin 60 mg injection (LOVENOX) 1 mg/kg/dose SUBCUTANEOUS q 12 HR benzocaine-menthol 1 Lozenge (CEPACOL) 1 Lozenge MUCOUS MEMBRANE (TOPICAL MOUTH AND THROAT) q 2 H PRN nitroglycerin sublingual 0.4 mg tab(s) (NITROQUICK) 0.4 mg SUBLINGUAL q 5 MIN PRN sodium chloride 0.65 % 2 [place] (AYR, OCEAN) 2 [place] EACH NOSTRIL PRN morphine 1 mg injection 1 mg INTRAVENOUS q 3 H PRN ondansetron (PF) 4 mg injection (ZOFRAN) 4 mg INTRAVENOUS q 6 H PRN dicyclomine 10 mg cap(s) (BENTYL) 10 mg ORAL TID PRN cholestyramine 4 g packet (QUESTRAN) 4 g ORAL DAILY acetaminophen 325-650 mg tab(s) (TYLENOL) 325-650 mg ORAL q 6 H PRN digoxin 0.125 mg tab(s) (LANOXIN) 0.125 mg ORAL DAILY furosemide 40 mg tab(s) (LASIX) 40 mg ORAL DAILY gabapentin 200 mg cap(s) (NEURONTIN) 200 mg ORAL AT BEDTIME pramipexole 0.25 mg tab(s) (MIRAPEX) 0.25 mg ORAL AT BEDTIME metoprolol tartrate (short acting) 25 mg tab(s) (LOPRESSOR) 25 mg ORAL q 8 H atorvastatin 10 mg tab(s) (LIPITOR) 10 mg ORAL AT BEDTIME DATA: Past 72 Hour Labs: Recent Labs 04/02/18 0330 04/01/18 0515 WBC -- 7.18 RBC -- 4.16 HB -- 12.8 HCT -- 38.6 MCV -- 92.8 MCH -- 30.8 MCHC -- 33.2 PLT -- 313 MPV -- 9.1* GLUC 85 77 BUN 19* 19* CREAT 1.04* 1.06* NA 140 140 K 3.8 3.8 CHLOR 108* 106 CO2 23 24 TPROT 6.3* 6.5 ALB 2.6* 2.7* CA 8.6 8.9 ALKPHOS 84 79 TBILI 0.5 0.7 AST 14 15 ALT 24 26 PTSEC 14.3* 16.6* INR 1.41* 1.66* Last Lab Drawn: Triglyceride 103 03/26/2018 HDL Cholesterol 25 03/26/2018 LDL Calculated 48 03/26/2018 Cholesterol, Total 94 03/26/2018 Assessment/Plan ? Paroxysmal afib -rates mostly controlled 90-110 on metoprolol 25 tid and dig 125 daily. Will not plan cardioversion in pt until after valve surgery; Possible MAZE procedure and LA appendage ligation with MV replacement; no clot on MEERA yesterday; started amiodarone 100mg daily to help with HR; Coumadin held as pt has dental appt for Thursday; home today off coumadin; she may have her surgery next Thursday- if so would not restart coumadin next week and per CT surg they will bridge with Lovenox next week after dentist Addendum-spoke with dr Mcfadden- will continue lovenox 1mg/kg over weekend prior to dentist Thursday, last dose Sun pm; she can then restart lovenox Thursday ? Severe MS and MR-??No CAD on cath; EF 60% MEERA confirms mod- severe MS, mild to mod -needs???tissue MVR very near future pt will need dental eval prior to any valve surgery-as above outpt appt Thursday ; suggest SBE proph with amoxil 2 gm one hour prior to appt given hx rheum fever(I sent Rx for amoxil to her pharmacy), current valve disease apprec assistance from CT surg STEPHANIE Orozco SIGNATURE: Jean-Pierre Perez MD PATIENT NAME: Gloria Mathew DATE: April 02, 2018 TIME: 9:56 AM PAGER/CONTACT #: [phone] CT CHEST W/O CONTRAST Observed: 04/02/2018 Status: F Source: [facility] 9:39 AM HEALTH SYSTEM REPOSITORY Performed at [facility] APPROVED BY: ANDRES PATHAK MD EXAMINATION: CHEST CT WITHOUT CONTRAST CLINICAL HISTORY: Assess mediastinum prior to cardiothoracic surgery. Assess hilar fullness described on recent chest radiography. Technique: Spiral CT acquisition of the chest from the thoracic inlet to the upper abdomen without contrast. MQ: [id number] Contrast: None CT Dose-Length Product: 264.47 mGy*cm CT Dose Reduction Employed: mAs or kVp was manually adjusted based on either the patient size or age. Comparison: Chest radiograph 03/24/2018. RESULT: Limitations: None. Lines, tubes, and devices: None. Lung parenchyma and pleura: Shallow depth of inspiration with low lung volumes noted. Scattered regions of groundglass attenuation is noted which may be secondary to interstitial edema. There are mult iple small semisolid nodules in both upper lobes measuring up to 8 mm. No pleural effusion or pneumothorax. Minor subsegmental atelectasis in the lingula, right middle lobe and dependent lung bases. Thoracic inlet, heart, and mediastinum: There is moderate cardiac enlargement. No significant pericardial effusion or thickening. There is calcification of the mitral valve. No thoracic aortic aneury sm. Main pulmonary artery is dilated as may be seen with pulmonary arterial hypertension (3.8 cm in caliber). Evaluation of the hilar regions is limited without IV contrast. There is prominence of th e right and left pulmonary arteries and their proximal branches. No definite hilar adenopathy. There are mildly enlarged right paratracheal mediastinal nodes, the largest measures 1.0 x 1.9 cm (2:66). Small calcified nodules measuring less than 1 cm noted in both thyroid lobes. Bones and soft tissues: No destructive bone lesion. Chest wall is unremarkable. 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 Upper abdomen: Gallbladder surgically absent. A punctate calcification is present in the upper pole the left kidney seen on the last image of the scan likely representing a calculus. IMPRESSION: 1. There is dilation of the main pulmonary artery with prominence of the right and left pulmonary arteries and their proximal segmental branches as may be seen with pulmonary arterial hypertension. Thi s likely accounts for the fullness of the hilar shadows on recent radiography. No definite hilar adenopathy (although evaluation is somewhat limited without intravenous contrast). 2. There are multiple mildly enlarged right paratracheal mediastinal lymph nodes, felt likely to be reactive. 3. Moderate cardiac enlargement. Scattered areas of groundglass attenuation bilaterally which may represent interstitial pulmonary edema but may also be seen with other inflammatory or atypical infectious processes. 4. There are scattered small semisolid nodules in both upper lobes measuring up to 8 mm which may be inflammatory or infectious. Primary or metastatic disease is felt less likely but not excluded. Incidental Finding: Follow-up for these incidentally detected lung nodules with chest CT exam is recommended in 3-6 months. If stable on follow-up imaging, a repeat chest CT exam in 12 months (15-18 mo nths from the initial exam) is recommended. 5. Punctate calcification within the upper left kidney seen in the last image likely represents a renal calculus. MDRD GFR Collected: 04/02/2018 Status: F Source: [facility] 3:30 AM [facility] REPOSITORY TYPE CODE TESTS RESULT OUT OF RANGE REFERENCE UNITS LAB GFRFN(LOINC >60mL/min/1.73m ) 2 eGFR 51.60 Result Comment: If the patient is , multiply the result by 1.210. Performed By: #### GFR #### [facility] [address] [place] [address] PROTIME Collected: 04/02/2018 Status: F Source: [facility] 3:30 AM [facility] REPOSITORY TYPE CODE TESTS RESULT OUT OF REFERENCE UNITS RANGE LAB PTI(LOINC) 9.7-13.0 sec Prothrombin High Time 14.3 LAB INR(LOINC) 0.90-1.30 INR High 1.41 Result Comment: Note: Reference Range Change Vitamin K Antagonist (VKA) Therapeutic Range: INR 2 to 3 (Target INR of 2.5) Note: For patients treated with VKA drugs, such as warfarin, the [employer] 2012 Guideline recommends a therapeutic INR range of 2 to 3 (target INR of 2.5). This recommendation includes high-risk patients with antiphospholipid syndrome with previous arterial or venous thromboembolism, current-generation mechanical or bioprosthetic aortic heart valve replacement. VKA Therapeutic Range for some Mechanical Valve Replacement: INR 2.5 to 3.5 (Target INR of 3) Note: Patients with mechanical aortic valve replacement and additional risk factors for thromboembolic events (atrial fibrillation, previous thromboembolism, LV dysfunction, hypercoagulable conditions) or an older generation mechanical AVR (i.e., ball in-Cage) or any mechanical MVR should have a INR therapeutic range of 2.5 to 3.5 target INR of 3). Nathanael GH, et al. Chest 2012; 141:7S-47S [place] LAURA et al. [facility] 2017; 70: 252-289 Performed By: #### PT #### [place] [address] COMPREHENSIVE PANEL Collected: 04/02/2018 Status: F Source: [facility] 3:30 AM HEALTH SYSTEM REPOSITORY TYPE CODE TESTS RESULT OUT OF REFERENCE UNITS RANGE LAB NA(LOINC) 136-145 mEq/L Sodium Blood 140 LAB K(LOINC) 3.5-5.1 mEq/L Potassium Blood 3.8 LAB CL(LOINC) 98-107 mEq/L Chloride High Blood 108 LAB CO2(LOINC) 21-32 mEq/L CO2 Blood 23 LAB GLU(LOINC) 70-99 mg/dL Glucose Blood 85 LAB BUN(LOINC) 7-18 mg/dL BUN Blood High 19 LAB CREA(LOINC 0.51-0.95 mg/dL ) Creatinine High Blood 1.04 LAB CA(LOINC) 8.5-10.1 mg/dL Calcium Blood 8.6 LAB ALB(LOINC) 3.4-5.0 g/dL Low Albumin Blood 2.6 LAB TP(LOINC) 6.4-8.2 g/dL Low Total Protein 6.3 LAB AST(LOINC) 9-37 U/L AST-SGOT Blood 14 LAB ALT(LOINC) 12-78 U/L ALT-SGPT Blood 24 LAB ALKP(LOINC 46-116 U/L ) Alk Phosphatase 84 LAB BILIT(LOIN 0.2-1.0 mg/dL C) Total Bilirubin 0.5 LAB ANGAP(LOIN 8-16 C) Anion Gap 13 Performed By: #### P14 #### [facility] [address] [place], [place] [address] CNPN Observed: 04/02/2018 Status: COMPLETED Source: [place] 12:00 AM CLINIC OTHER CAMPUS REPOSITORY Telephone ([facility]) GLORIA MATHEW ([id number]) 1940 F Date Time Provider Department 04/02/18 JEAN-PIERRE PEREZ During your visit today, we recorded the following information about you: Jean-Pierre Perez MD 04/02/2018 10:11 AM Signed Sent rx to pharmacy for amoxil prior to dentist.dac Allergies As of Date: 04/02/2018 (No Known Allergies) Date Reviewed: 04/01/2018 Reviewed by: Jake (Rn) MARCELLA Ruff - Fully Assessed Reason for Visit: abx [Other] Order(s):amoxicillin (POLYMOX, AMOXIL) 500 mg capsule4 pills one hour prior to dentistDisp: 12 capsuleRfl: 3 Prescriptions as of 04/02/2018 Sig: AMOXICILLIN 500 MG CAPSULE 4 pills one hour prior to den* CYANOCOBALAMIN (VIT B-12) 1,0* Dissolve 1 tablet under the t* WARFARIN 1 MG TABLET Take 0.5mg (1/2 tablet) daily. CALCIUM CARBONATE 600 MG CALC* Take 600 mg by mouth once mirta* METOPROLOL TARTRATE 25 MG TAB* Take 25 mg by mouth twice mirta* PRAMIPEXOLE 0.25 MG TABLET Take 0.25 mg by mouth daily a* WARFARIN 5 MG TABLET TAKE 1 TABLET BY MOUTH EVERY * Patient taking differently: Take 2.5mg (1/2 tablet) daily PROAIR HFA 90 MCG/ACTUATION A* 2 Puffs every 6 hours as need* CHOLESTYRAMINE (WITH SUGAR) 4* Take 1 Packet by mouth once d* GABAPENTIN 100 MG CAPSULE Take 200 mg by mouth daily at* SIMVASTATIN 10 MG TABLET Take 10 mg by mouth daily at * ALENDRONATE 70 MG TABLET Take 70 mg by mouth every Sat* BIOTIN 5,000 MCG-SILICON DIOX* Take 1 tablet by mouth once d* MULTIVITAMIN TABLET Take 1 tablet by mouth once d* CHOLECALCIFEROL (VITAMIN D3) * Take 1,000 Units by mouth onc* Problem List As Of Date 04/02/2018 Noted Resolved Fibrocystic breast changes [N60.19] INVALID FOR*07/11/2015 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 Mitral valve stenosis [I05.0] Mitral valve regurgitation [I34.0] Paroxysmal atrial fibrillation (HCC) [I48.0] INVALID FOR* intermediate accountant (current) use of 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s [Z79.*INVALID FOR* [facility] current use of 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 [Z79.01]*INVALID FOR* A-fib (HCC) [I48.91] INVALID FOR* Prescriptions ordered this encounter Disp Refills Start End AMOXICILLIN 500 MG CAPSULE 12 c* 3 04/02/2018 Si pills one hour prior to dentist Encounter Status:Closed by JEAN-PIERRE PEREZ MD on 04/02/18 PROGRESS Observed: 04/01/2018 Status: COMPLETED Source: [place] 1:31 PM CLINIC OTHER CAMPUS REPOSITORY [facility] ID: [id number] Author: Benedicto Mcfadden Service: Hospital Medicine Author Type: Physician Type: Progress Notes Filed: 04/01/2018 1:32 PM Note Text: INPATIENT PROGRESS NOTE SERVICE DATE: April 01, 2018 SERVICE TIME: 1:31 PM PRIMARY SERVICE: Hospitalist Subjective CHIEF COMPLAINT: Afib with RVR INTERVAL HPI: - Had LHC/ RHC today, Severe Mitral stenosis with 20-25 mmhg gradient across MV. No CAD.wedge 26 Current hospital medications: amiodarone 100 mg tab(s) (PACERONE) 100 mg ORAL DAILY enoxaparin 60 mg injection (LOVENOX) 1 mg/kg/dose SUBCUTANEOUS q 12 HR warfarin 1 mg tab(s) (COUMADIN) 1 mg ORAL ONCE - WARFARIN benzocaine-menthol 1 Lozenge (CEPACOL) 1 Lozenge MUCOUS MEMBRANE (TOPICAL MOUTH AND THROAT) q 2 H PRN nitroglycerin sublingual 0.4 mg tab(s) (NITROQUICK) 0.4 mg SUBLINGUAL q 5 MIN PRN sodium chloride 0.65 % 2 [place] (AYR, OCEAN) 2 [place] EACH NOSTRIL PRN morphine 1 mg injection 1 mg INTRAVENOUS q 3 H PRN ondansetron (PF) 4 mg injection (ZOFRAN) 4 mg INTRAVENOUS q 6 H PRN dicyclomine 10 mg cap(s) (BENTYL) 10 mg ORAL TID PRN cholestyramine 4 g packet (QUESTRAN) 4 g ORAL DAILY acetaminophen 325-650 mg tab(s) (TYLENOL) 325-650 mg ORAL q 6 H PRN digoxin 0.125 mg tab(s) (LANOXIN) 0.125 mg ORAL DAILY furosemide 40 mg tab(s) (LASIX) 40 mg ORAL DAILY gabapentin 200 mg cap(s) (NEURONTIN) 200 mg ORAL AT BEDTIME pramipexole 0.25 mg tab(s) (MIRAPEX) 0.25 mg ORAL AT BEDTIME metoprolol tartrate (short acting) 25 mg tab(s) (LOPRESSOR) 25 mg ORAL q 8 H atorvastatin 10 mg tab(s) (LIPITOR) 10 mg ORAL AT BEDTIME Objective PHYSICAL EXAM: BP 107/58 Pulse 107 Temp (Src) 98.2 (Oral) Resp 18 Ht 5' 2 (1.58m) Wt 140 lb 3.4 oz (63.6kg) SpO2 97% BMI 25.64 kg/(m2). Physical Exam Performed Constitutional - Vitals as above, NAD Respiratory - Clear to auscultate both sides. No crackles, wheezes or rales, No labored breathing noted CVS- RRR, no murmur/gallop/rub, pulse 2+ GI- NTND, bowel sounds normally heard DATA: Diagnostic tests reviewed for today's visit: Assessment/Plan ? 1. Paroxysmal A fib with RvR: HR better controlled with dig and metoprolol. Treatment with amiodarone- stopped. Rate controlled. Started on Lovenox and coumadin today. 2. Left flank pain with left hydronephrosis with perinephric fat stranding with left nephrolithiasis:?possible passed stone. UA negative for UTI. PVR low 112cc. Pain improved on tylenol. Evaluated by Urology- no further plan by urology. ? 3. Severe MS and MR: - Had LHC/ RHC today, Severe Mitral stenosis with 20-25 mmhg gradient across MV. No CAD.wedge 26. Patient will be discharged tomorrow to have some dental work before having MVR/ AVR. ? 4. IBS:Stable, on Dicyclomine, plan: continue. ? 5. Remote hx of uterine cancer?s/p hsyterectomy and XRT 30 years or so ago Medication and Non-Pharmacologic VTE Prophylaxis/Anticoagulants Anticoagulant AND Antiplatelet Medications Start Dose Route Frequency Ordered Stop 04/01/18 1700 warfarin 1 mg tab(s) (COUMADIN) 1 mg ORAL ONCE - WARFARIN 04/01/18 1302 04/02/18 0459 04/01/18 1400 enoxaparin 60 mg injection (LOVENOX) 1 mg/kg/dose SUBCUTANEOUS EVERY 12 HOURS 04/01/18 1302 -- 03/25/18 0815 activity - mobilize patient ([place], [place]) 03/24/18 2100 vte pharmacologic prophylaxis contraindicated ([place]) 03/24/18 2100 pneumatic compression stockings ([place], [place]) VTE Prophylaxis: VTE prophylaxis appropriate SIGNATURE: Benedicto Mcfadden MD PATIENT NAME: Gloria Mathew DATE: April 01, 2018 TIME: 3:19 PM PAGER: [phone] CONSULT PROG Observed: 04/01/2018 Status: COMPLETED Source: [place] 12:36 PM CLINIC OTHER CAMPUS REPOSITORY O ID: [id number] Author: Jean-Pierre Perez Service: Cardiovascular Medicine Author Type: Physician Type: Consult Progress Note Filed: 04/01/2018 1:00 PM Note Text: PROGRESS NOTE CARDIOLOGY SERVICE SERVICE DATE: 04/01/2018 SERVICE TIME: 12:36 PM Subjective INTERIM HISTORY: no change sob; no chest pain; no syncope; some palps noted; no nausea; no bleeding Objective PHYSICAL EXAM: Body mass index is 25.65 kg/m?. O2 Therapy: Room Air No Data Recorded Patient Vitals for the past 24 hrs: BP Temp Temp src Pulse Resp SpO2 Weight 04/01/18 1142 107/58 - - - - - - 04/01/18 1120 103/64 36.8 ?C (98.2 ?F) Oral 107 18 97 % - 04/01/18 0600 - - - - - - 63.6 kg (140 lb 3.4 oz) 04/01/18 0508 94/54 36.9 ?C (98.4 ?F) Oral 102 16 95 % - 03/31/18 2124 94/58 37.1 ?C (98.8 ?F) Oral 115 16 94 % - 03/31/18 1435 (!) 94/47 - - 110 16 95 % - 03/31/18 1350 101/76 - - (!) 129 16 95 % - 03/31/18 1312 102/68 - - 115 16 97 % - 03/31/18 1255 95/71 - - 102 16 98 % - Tele afib at 90-100 NAD CHest no wheeze COR irreg sys m Abd nontender no rebound R radial cath site clean R fem v cath site no hematoma Mild bruising bilat DP 1-2+ Tr edema Nl mentation Nl affect MEDICATIONS: Current hospital medications: benzocaine-menthol 1 Lozenge (CEPACOL) 1 Lozenge MUCOUS MEMBRANE (TOPICAL MOUTH AND THROAT) q 2 H PRN nitroglycerin sublingual 0.4 mg tab(s) (NITROQUICK) 0.4 mg SUBLINGUAL q 5 MIN PRN sodium chloride 0.65 % 2 [place] (AYR, OCEAN) 2 [place] EACH NOSTRIL PRN morphine 1 mg injection 1 mg INTRAVENOUS q 3 H PRN ondansetron (PF) 4 mg injection (ZOFRAN) 4 mg INTRAVENOUS q 6 H PRN dicyclomine 10 mg cap(s) (BENTYL) 10 mg ORAL TID PRN cholestyramine 4 g packet (QUESTRAN) 4 g ORAL DAILY acetaminophen 325-650 mg tab(s) (TYLENOL) 325-650 mg ORAL q 6 H PRN digoxin 0.125 mg tab(s) (LANOXIN) 0.125 mg ORAL DAILY furosemide 40 mg tab(s) (LASIX) 40 mg ORAL DAILY gabapentin 200 mg cap(s) (NEURONTIN) 200 mg ORAL AT BEDTIME pramipexole 0.25 mg tab(s) (MIRAPEX) 0.25 mg ORAL AT BEDTIME metoprolol tartrate (short acting) 25 mg tab(s) (LOPRESSOR) 25 mg ORAL q 8 H atorvastatin 10 mg tab(s) (LIPITOR) 10 mg ORAL AT BEDTIME DATA: Past 72 Hour Labs: Recent Labs 04/01/18 0515 WBC 7.18 RBC 4.16 HB 12.8 HCT 38.6 MCV 92.8 MCH 30.8 MCHC 33.2 PLT 313 MPV 9.1* GLUC 77 BUN 19* CREAT 1.06* NA 140 K 3.8 CHLOR 106 CO2 24 TPROT 6.5 ALB 2.7* CA 8.9 ALKPHOS 79 TBILI 0.7 AST 15 ALT 26 PTSEC 16.6* INR 1.66* Last Lab Drawn: Triglyceride 103 03/26/2018 HDL Cholesterol 25 03/26/2018 LDL Calculated 48 03/26/2018 Cholesterol, Total 94 03/26/2018 Assessment/Plan Paroxysmal afib -rates mostly controlled 90-110 on metoprolol 25 tid and dig 125 daily. S/p amio gtt. ?Asymptomatic with rates. Coumadin restarted; Give lovenox 1 mg/kg sq bid untildischarge; Will not plan cardioversion in pt until after valve surgery; Possible MAZE procedure and LA appendage ligation with MV replacement; no clot on MEERA yesterday; start amiodarone 100mg daily ? Severe MS and MR-??No CAD on cath; EF 60% MEERA confirms mod- severe MS, mild to mod -needs?Will plan MEERA and cath 03/31; reviewed rsik/benefit , alternative; will proceed; consent obtained Consult CT surg Dr De Los Santos; pt will need dental eval prior to any valve surgery-home tomorrow; dentist next wk; stop warfarin 3 days prior to dentist; suggest SBE proph with amoxil 2 gm one hour prior to appt given hx rheum fever, current valve disease SIGNATURE: Jean-Pierre Perez MD PATIENT NAME: Gloria Mathew DATE: April 01, 2018 TIME: 12:36 PM PAGER/CONTACT #: [phone] ALLIED HEALTH Observed: 04/01/2018 Status: COMPLETED Source: [place] 12:16 PM CLINIC OTHER CAMPUS REPOSITORY [facility] ID: [id number] Author: Reema Fong (Chaplain), Student Service: Spiritual Care Author Type: Pv Design Engineer Type: Allied Health Filed: 04/01/2018 12:17 PM Note Text: SPIRITUALCARE Spiritual Care Visit- Brief Note Name: Gloria Mathew Date: April 01, 2018 Notes: Patient had already had a visit from her orchid worker. Spiritual Care available. Pv Design Engineer Signature: Chaplain Imer To contact the Spiritual Care Department: Please call [phone] or Page the On-Call Pv Design Engineer at pager [phone] Thank you for the opportunity to be of service. This is an electronically created document. IF PRINTED, PLEASE DO NOT REMOVE FROM THE CHART OR MODIFY PRINTED COPY. HEMOGRAM Collected: 04/01/2018 Status: F Source: [facility] 5:15 AM HEALTH SYSTEM REPOSITORY TYPE CODE TESTS RESULT OUT OF REFERENCE UNITS RANGE LAB WBC(LOINC) 3.98-10.04 thou/cmm WBC 7.18 LAB RBC(LOINC) 3.93-5.22 mil/cmm RBC 4.16 LAB HGB(LOINC) 11.2-15.7 g/dL Hgb 12.8 LAB HCT(LOINC) 34.1-44.9 % Hct 38.6 LAB MCV(LOINC) 79.4-94.8 fl MCV 92.8 LAB MCH(LOINC) 25.6-32.2 pg MCH 30.8 LAB MCHC(LOINC) 31.6-34.8 % MCHC 33.2 LAB RDW(LOINC) 11.7-14.4 % RDW 13.5 LAB RDWSD(LOINC 36.4-46.3 fl ) RDW SD 45.6 LAB PLT(LOINC) 182-369 thou/cmm Platelet 313 LAB MPV(LOINC) 9.4-12.3 fl Low MPV 9.1 Performed By: #### CBC1 #### [facility] [address] [place] [address] PROTIME Collected: 04/01/2018 Status: F Source: [facility] 5:15 AM HEALTH SYSTEM REPOSITORY TYPE CODE TESTS RESULT OUT OF REFERENCE UNITS RANGE LAB PTI(LOINC) 9.7-13.0 sec Prothrombin High Time 16.6 LAB INR(LOINC) 0.90-1.30 INR High 1.66 Result Comment: Note: Reference Range Change Vitamin K Antagonist (VKA) Therapeutic Range: INR 2 to 3 (Target INR of 2.5) Note: For patients treated with VKA drugs, such as warfarin, the [place] [employer] 2012 Guideline recommends a therapeutic INR range of 2 to 3 (target INR of 2.5). This recommendation includes high-risk patients with antiphospholipid syndrome with previous arterial or venous thromboembolism, current-generation mechanical or bioprosthetic aortic heart valve replacement. VKA Therapeutic Range for some Mechanical Valve Replacement: INR 2.5 to 3.5 (Target INR of 3) Note: Patients with mechanical aortic valve replacement and additional risk factors for thromboembolic events (atrial fibrillation, previous thromboembolism, LV dysfunction, hypercoagulable conditions) or an older generation mechanical AVR (i.e., ball in-Cage) or any mechanical MVR should have a INR therapeutic range of 2.5 to 3.5 target INR of 3). Nathanael PITTS, et al. Chest 2012; 141:7S-47S [place] LAURA et al. JAC 2017; 70: 252-289 Performed By: #### PT #### [place] [address] COMPREHENSIVE PANEL Collected: 04/01/2018 Status: F Source: [facility] 5:15 AM HEALTH SYSTEM REPOSITORY TYPE CODE TESTS RESULT OUT OF REFERENCE UNITS RANGE LAB NA(LOINC) 136-145 mEq/L Sodium Blood 140 LAB K(LOINC) 3.5-5.1 mEq/L Potassium Blood 3.8 LAB CL(LOINC) 98-107 mEq/L Chloride Blood 106 LAB CO2(LOINC) 21-32 mEq/L CO2 Blood 24 LAB GLU(LOINC) 70-99 mg/dL Glucose Blood 77 LAB BUN(LOINC) 7-18 mg/dL BUN Blood High 19 LAB CREA(LOINC 0.51-0.95 mg/dL ) Creatinine High Blood 1.06 LAB CA(LOINC) 8.5-10.1 mg/dL Calcium Blood 8.9 LAB ALB(LOINC) 3.4-5.0 g/dL Low Albumin Blood 2.7 LAB TP(LOINC) 6.4-8.2 g/dL Total Protein 6.5 LAB AST(LOINC) 9-37 U/L AST-SGOT Blood 15 LAB ALT(LOINC) 12-78 U/L ALT-SGPT Blood 26 LAB ALKP(LOINC 46-116 U/L ) Alk Phosphatase 79 LAB BILIT(LOIN 0.2-1.0 mg/dL C) Total Bilirubin 0.7 LAB ANGAP(LOIN 8-16 C) Anion Gap 14 Performed By: #### P14 #### [facility] [address] [place] [address] PROGRESS Observed: 03/31/2018 Status: COMPLETED Source: [place] 3:19 PM CLINIC OTHER CAMPUS REPOSITORY O ID: [id number] Author: Benedicto Mcfadden Service: Hospital Medicine Author Type: Physician Type: Progress Notes Filed: 03/31/2018 3:29 PM Note Text: INPATIENT PROGRESS NOTE SERVICE DATE: 03/31/2018 SERVICE TIME: 3:19 PM PRIMARY SERVICE: Hospitalist Subjective CHIEF COMPLAINT: Afib with RVR INTERVAL HPI: - Had LHC/ RHC today, Severe Mitral stenosis with 20-25 mmhg gradient across MV. No CAD.wedge 26 Current hospital medications: NaCl 0.9% 2-10 mL 2-10 mL INTRAVENOUS ONCE benzocaine-menthol 1 Lozenge (CEPACOL) 1 Lozenge MUCOUS MEMBRANE (TOPICAL MOUTH AND THROAT) q 2 H PRN nitroglycerin sublingual 0.4 mg tab(s) (NITROQUICK) 0.4 mg SUBLINGUAL q 5 MIN PRN sodium chloride 0.65 % 2 [place] (AYR, OCEAN) 2 [place] EACH NOSTRIL PRN morphine 1 mg injection 1 mg INTRAVENOUS q 3 H PRN ondansetron (PF) 4 mg injection (ZOFRAN) 4 mg INTRAVENOUS q 6 H PRN dicyclomine 10 mg cap(s) (BENTYL) 10 mg ORAL TID PRN cholestyramine 4 g packet (QUESTRAN) 4 g ORAL DAILY acetaminophen 325-650 mg tab(s) (TYLENOL) 325-650 mg ORAL q 6 H PRN digoxin 0.125 mg tab(s) (LANOXIN) 0.125 mg ORAL DAILY furosemide 40 mg tab(s) (LASIX) 40 mg ORAL DAILY gabapentin 200 mg cap(s) (NEURONTIN) 200 mg ORAL AT BEDTIME pramipexole 0.25 mg tab(s) (MIRAPEX) 0.25 mg ORAL AT BEDTIME metoprolol tartrate (short acting) 25 mg tab(s) (LOPRESSOR) 25 mg ORAL q 8 H atorvastatin 10 mg tab(s) (LIPITOR) 10 mg ORAL AT BEDTIME Objective PHYSICAL EXAM: BP 101/76 Pulse 129 Temp (Src) 98.1 (Oral) Resp 16 Ht 5' 2 (1.58m) Wt 141 lb (64.0kg) SpO2 95% BMI 25.78 kg/(m2). Physical Exam Performed Constitutional - Vitals as above, NAD Respiratory - Clear to auscultate both sides. No crackles, wheezes or rales, No labored breathing noted CVS- RRR, no murmur/gallop/rub, pulse 2+ GI- NTND, bowel sounds normally heard DATA: Diagnostic tests reviewed for today's visit: Assessment/Plan ? 1. Paroxysmal A fib with RvR: HR better controlled with dig and metoprolol. Treatment with amiodarone- stopped. Rate controlled. Coumadin on hold, to be started on 04/01. No coumadin/ Heparin today per cardiology recommendations. 2. Left flank pain with left hydronephrosis with perinephric fat stranding with left nephrolithiasis:?possible passed stone. UA negative for UTI. PVR low 112cc. Pain improved on tylenol. Evaluated by Urology- no further plan by urology. ? 3. Severe MS and MR: - Had LHC/ RHC today, Severe Mitral stenosis with 20-25 mmhg gradient across MV. No CAD.wedge 26. Patient will be discharged tomorrow to have some dental work before having MVR/ AVR. ? 4. IBS:Stable, on Dicyclomine, plan: continue. ? 5. Remote hx of uterine cancer?s/p hsyterectomy and XRT 30 years or so ago Medication and Non-Pharmacologic VTE Prophylaxis/Anticoagulants 03/25/18 0815 activity - mobilize patient ([place]) 03/24/18 2100 vte pharmacologic prophylaxis contraindicated ([place]) 03/24/18 2100 pneumatic compression stockings ([place] VTE Prophylaxis: VTE prophylaxis appropriate SIGNATURE: Benedicto Mcfadden MD PATIENT NAME: Gloria Mathew DATE: March 31, 2018 TIME: 3:19 PM PAGER: [phone] CONSULT PROG Observed: 03/31/2018 Status: COMPLETED Source: [place] 2:36 PM [facility] OTHER CAMPUS REPOSITORY HNO ID: [id number] Author: Rosaline (Tom) JAQUI Lauren Service: Cardiovascular Surgery Author Type: Nurse Practitioner Type: Consult Progress Note Filed: 04/21/2018 5:56 PM Note Text: CTVS Surgery Pre-Op Open Heart Check List Patient Info: Gloria Mathew 1940 77 year old Patient has no known allergies. HPI: This is a 77 year old female with PMH of moderately severe MR with MS, rheumatic fever, Afib with RVR (new), TRISH (on Cpap) and IBS, who presented to ED with elevated INR, SOB and some chest discomfort/palpitation. Patient was recently diagnosed with A fib and was started on metoprolol and Coumadin by Dr. Perez's TUNNELLER on 03/16. Her HR was still high which her metoprolol dose was increased to 25 mg BID subsequently. Patient has been following Dr. Perez for her MR, MS with series of Echo studies and was scheduled to have L/R HC and MEERA done on 03/31 electively. She was advised to ED from coumadin clinic with elevated INR on Thursday. In ED, she was found to have HR of 140s- 150s, therefore, she received IV metoprolol and digoxin in addition to Vit K for the supra therapeutic INR. CXR found her to have bilateral pleural effusion with clinical symptom of SOB, so she was admitted for acute respiratory management with diuresis. During the interim, patient was found to have renal calculi on the left kidney, which subsequently resolved spontaneously without intervention. Consult to CTS is placed for Mitral valve evaluation. Patient denied chest pain, she does report some chest palpitation, mild shortness of breath with exertions. Denied orthopnea or PND, no LH/DZ, syncope/presyncope. Last set of vitals: BP 102/68 Pulse 115 Temp 36.7 ?C (98.1 ?F) (Oral) Resp 16 Ht 157.5 cm (5' 2) Wt 64 kg (141 lb) SpO2 97% BMI 25.79 kg/m? Wt: 68 kg (150 lb) BMI: 27.44 kg/(m2) Procedure: MVR with possible MAZE+LAAC Diagnosis: Mitral valve stenosis, Atrial fibrillation Date of Procedure: TBD STS Risk Score: 4. 047% CARE TEAM: Cardiac Surgeon: Dr. De Los Santos Supervisor Gas Meter Repair: Dr. Perez PCP: Dr. Avelar Other Providers: n/a Pre-Op Testing: LABS: No results found for: TROPT Recent Labs 03/31/18 0330 03/30/18 0503/29/18 0524 INR 1.83* 2.36* 2.82* HGB (g/dL) Date Value 03/28/2018 14.2 Hematocrit (%) Date Value 03/28/2018 42.2 WBC (thou/cmm) Date Value 03/28/2018 10.05 Platelet Count (thou/cmm) Date Value 03/28/2018 284 Chemistry Glucose (mg/dL) Date Value 03/28/2018 83 Potassium (mEq/L) Date Value 03/28/2018 3.5 Sodium (mEq/L) Date Value 03/28/2018 139 Chloride (mEq/L) Date Value 03/28/2018 103 CO2 (mEq/L) Date Value 03/28/2018 30 Creatinine (mg/dL) Date Value 03/28/2018 0.95 BUN (mg/dL) Date Value 03/28/2018 16 Anion Gap (no units) Date Value 03/28/2018 10 Calcium (mg/dL) Date Value 03/28/2018 8.6 Protein, Total (g/dL) Date Value 03/28/2018 6.6 Albumin (g/dL) Date Value 03/28/2018 3.2 Bilirubin, Total (mg/dL) Date Value 03/28/2018 2.0 Alkaline Phosphatase (U/L) Date Value 03/28/2018 85 AST (U/L) Date Value 03/28/2018 13 ALT (U/L) Date Value 03/28/2018 40 Coag Recent Labs 03/31/18 0330 03/30/18 0520 03/29/18 0524 INR 1.83* 2.36* 2.82* UA Results for GLORIA MATHEW ( ) as of 03/31/2018 14:48 Ref. Range 03/27/2018 14:40 Color Unknown YELLOW Specific [place], Ur Latest Ref Range: 1.005 - 1.030 1.010 pH, Urine Latest Ref Range: 5.0 - 8.0 5.0 Protein, Urine Latest Ref Range: Negative mg/dL NEGATIVE Glucose, Urine Latest Ref Range: Negative mg/dL NEGATIVE Ketones, Urine Latest Ref Range: Negative mg/dL NEGATIVE Bilirubin, Urine Latest Ref Range: Negative NEGATIVE Urobilinogen, Urine Latest Ref Range: 0.0 - 1.0 EU/dL 0.2 RBC, Urine Latest Ref Range: 0.0 - 5.0 /hpf 1.2 EP Cells Urine Latest Ref Range: 0.0 - 5.0 /hpf 0.5 Hemoglobin, Urine Latest Ref Range: Negative NEGATIVE Bacteria, Urine Latest Ref Range: None NONE Hyaline Cast Latest Ref Range: 0.0 - 1.0 /lpf 0.4 Leukocytes Esterase Latest Ref Range: Negative NEGATIVE Nitrite Reflex Latest Ref Range: Negative NEGATIVE Urine Appearance Unknown CLEAR WBC, REFLEX Latest Ref Range: 0.00 - 5.00 /hpf 0.90 Type AND Screen: done RBC Cross match: done MRSA Screen: Results for GLORIA MATHEW ( ) as of 03/31/2018 14:48 Ref. Range 03/24/2018 21:05 MRSA Screen Unknown No MRSA detected. HGA1C Lab Results Component Value Date HBA1C 5.2 03/25/2018 HBA1C 4.7 10/01/2017 PFT/ABG: FEVI: 60% DLCO: n/a ABG: n/a . IMAGING/PROCEDURES Chest X-RAY 03/24/2018: Findings as above most likely representing moderate pulmonary edema. ? Small bilateral pleural effusions with mild coexisting bibasilar atelectasis and/or infiltrate. ? Bilateral prominence, which is most likely related to probable avascular. ? However, follow-up chest CT is recommended to exclude the possibility of adenopathy. ? ECHO 06/04/2017: Final Impressions: Left Atrium The left atrium appears severely dilated in size. ALMA ROSA is 64.81 ml/m2. Mitral Valve The mitral leaflets are moderately thickened and calcified especially the anterior leaflet. No evidence of mitral valve prolapse. Moderate to moderately severe (2-3+) mitral regurgitation. There is moderate to severe mitral valve stenosis. Peak gradient is 30 mmHg. Mean gradient is 10 mmHg. Gradients were 27 and 14 mmHg respectively on previous echo in 2011. MVA estimated at 1.33cm2 by pressure half-time method. Rheumatic affection a possibility. Tricuspid Valve Mild to moderate (1-2+) tricuspid valve regurgitation. Moderate pulmonary hypertension. Right ventricular systolic pressure is estimated at 61 mmHg. Left Ventricle Normal left ventricular size and systolic function. No regional wall motion abnormalities. LVEF is 55-60% by visual estimation. E/E' is greater than 15, suggesting high left ventricular filling pressure ? EKG 03/24/2018: Diagnosis:ATRIAL FIBRILLATION WITH RAPID VENTRICULAR RESPONSE LOW VOLTAGE QRS NONSPECIFIC ST AND T WAVE ABNORMALITY ABNORMAL ECG WHEN COMPARED WITH ECG OF 28-AUG-2011 19:10, ATRIAL FIBRILLATION HAS REPLACED SINUS RHYTHM VENT. RATE HAS INCREASED BY ?65 BPM QUESTIONABLE CHANGE IN QRS AXIS NONSPECIFIC T WAVE ABNORMALITY NOW EVIDENT IN INFERIOR LEADS T WAVE INVERSION NOW EVIDENT IN ANTERIOR LEADS ? MEERA 03/31/2018: Per Dr. Perez's note: MEERA-indication MV disease ? Findings LVEF 60%; small LV Mildly thicked trileaflet AV; trace AR, mild ?BERTO 1.7 cmsq by planimetry ? MV severe calcification, rheumatic, thickened chords, diminished opening ; ?1-2+ MR; mean gradient 17 mmhg Mod-severe MS ? TV-normal morphology; mild TR ? IMP-needs tissue MVR ? Heart catheterization 03/31/2018: R and L heart cath: indication Mitral stenosis Done via R radial artery and R fem venous approach ? Findings Normal coronaries LVG not done (60% EF on MEERA today) Calcified MV noted ? RA 4 PA 50/25 PCWP 26 LVEDP 5 LV 100/5 Aorta 95/60 ? IMP:No CAD Severe Mitral stenosis with 20-25 mmhg gradient across MV Minimal aortic stenosis ? Needs tissue MVR and probable MAZE, LA appendage excision 5 Meter Walk Test: 5 Meter Walk Test Completed: Yes Trial 1 # of Seconds: 5.77 Trial 1 Assistive Device: None Trial 2 # of Seconds: 5.91 Trial 2 Assistive Device: None Trial 3 # of Seconds: 5.31 Trial 3 Assistive Device: None OPTIONAL TESTINGS: Carotid U/S: n/a Lower EXT ELAINE: n/a Palmar Arch: n/a Vein Mapping:n/a Dental Clearance: yes, patient will need dental work done prior surgery CT Chest 04/02: IMPRESSION: 1. There is dilation of the main pulmonary artery with prominence of the right and ?left pulmonary arteries and their proximal segmental branches as may be seen with ?pulmonary arterial hypertension. ?This likely accounts for the fullness of the hilar shadows on recent radiography. ?No definite hilar adenopathy (although evaluation is somewhat limited without intravenous contrast). ? 2. There are multiple mildly enlarged right paratracheal mediastinal lymph nodes, felt likely to be reactive. ? 3. Moderate cardiac enlargement. ?Scattered areas of groundglass attenuation bilaterally which may represent interstitial pulmonary edema but may also be seen with other inflammatory or atypical infectious processes. ? 4. There are scattered small semisolid nodules in both upper lobes measuring up to ?8 mm which may be inflammatory or infectious. ?Primary or metastatic disease is felt less likely but not excluded. ? ? Incidental Finding: ?Follow-up for these incidentally detected lung nodules with chest CT exam is recommended in 3-6 months. If stable on follow-up imaging, a repeat chest CT exam in 12 months (15-18 months from the initial exam) is recommended. ? 5. ?Punctate calcification within the upper left kidney seen in the last image likely represents a renal calculus. Medications Notes: . Blood thinners: Patient is on following blood thinners: Aspirin -Yes, dose 81 mg, stopped No, date:dos Coumadin -stopped Yes, and bridged with Lovenox Beta Edson: Last dose of beta edson taken: DOS Perioperative Transfusion risk STS Risk Factors: Advanced age Yes Preoperative anemia No Non-CABG surgery Yes Preoperative anticoagulation Yes, Coumadin Clotting abnormalities No Female gender Yes Small body habitus Yes Renal insufficiency No IDDM No Sepsis No Liver disease No Preioperative Wound Healing - Vest recommended No Risk Factors: Obesity No DM No Renal Dx No CLEARANCES NEEDED Pulmonary: No, Moderate stage of COPD as her FEV1 IS 60% predicted. Hematology: No Nephrology No Vascular surgery No Other No Rosaline Lauren APRN.CNP BRIEF OP NOT Observed: 03/31/2018 Status: COMPLETED Source: [place] 10:18 AM [facility] REPOSITORY HNO ID: [id number] Author: Jean-Pierre Perez Service: Cardiovascular Medicine Author Type: Physician Type: Brief Op Note Filed: 03/31/2018 10:21 AM Note Text: R and L heart cath:indication Mitral stenosis Done via R radial artery and R fem venous approach Findings Normal coronaries LVG not done (60% EF on MEERA today) Calcified MV noted RA 4 PA 50/25 PCWP 26 LVEDP 5 LV 100/5 Aorta 95/60 IMP:No CAD Severe Mitral stenosis with 20-25 mmhg gradient across MV Minimal aortic stenosis Needs tissue MVR and probable MAZE, LA appendage excision Restart coumadin tomorrow Jean-Pierre Perez MD Pager [phone] % O2HB (VENOUS) Collected: 03/31/2018 Status: F Source: [facility] 10:05 AM HEALTH SYSTEM REPOSITORY TYPE CODE TESTS RESULT OUT OF RANGE REFERENCE UNITS LAB O2HBV(LOINC 40.00-70.00 % ) High % O2HB 94.00 (venous) Performed By: #### O2HBV #### [place] [id number] NUTRITION Observed: 03/31/2018 Status: COMPLETED Source: [place] 9:30 AM [facility] REPOSITORY HNO ID: [id number] Author: Sherrell Amin RD Service: Nutrition Therapy Author Type: Registered Dietitian Type: Nutrition Filed: 03/31/2018 2:16 PM Note Text: NUTRITION THERAPY SCREENING NOTE SERVICE DATE: 03/31/2018 SERVICE TIME: 12:35 NUTRITION CARE PLAN Patient's weight is stable and nutritional intake is adequate. Patient is not at risk for malnutrition at this time. Intervention: 1. Encourage oral intake Discharge Nutrition Recommendations: Diet: Regular Reason for Visit: LOS. Here with afib with RVR. L flank pain with L hydronephrosis, possibly passed stone. Severe MS/MR, heart cath today. Per HPI: This is a 77 year old female with past medical history of mitral stenosis, severe MR, h/o rheumatic fever 60 years ago, atrial fibrillation presented to the ER with complains of palpitations. She was recently diagnosed with Afib on 03/13/18 and was started on metoprolol 12.5mg BID and coumadin 5 mg. Patient did not have control in her HR after which her metoprolol was increased to 25 bid on 03/19. She also follows up at coumadin clinic and her warfarin dose was decreased to 2.5 mg due to supra therapeutic INR. Today, on presentation to the ED she complained of palpitations and shortness of breath. She denies any chest pain/ pressure, dizziness, lightheadedness or episodes of syncope. She has had worsening shortness of breath on exertion since the past 2 weeks but denies orthopnea or PND at this time. Patient follows up with Dr. Perez and was scheduled for a left and right heart cath on 03/31, she was also scheduled for a mitral valve replacement surgery. She has not taken her coumadin dose today and was also told to hold her metoprolol due to low BP after which she came to the ER. ? ED course:?In the ED she was found to be in Afib w RVR in 160s, complaining of dyspnea and palpitations. She was given lopressor 2.5 mg twice after which it improved to 140s. She was also loaded with digoxin. Patient was also found to have a supra therapeutic INR of 13.7 and was reversed with vit K. She has no active bleeding or h/o bleeding. She was then transferred to CVICU for further evaluation. 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 Per patient, she normally has a good appetite. States she has been eating and drinking normally here. Was eating lunch while I was in room and had already eaten most of the meal. Nursing documenting mostly 50-100% meal intake in flowsheet. Anthropometrics: Height: 157.5 cm (5' 2) Admission Weight: 68 kg (150 lb) Current Weight: 64 kg (141 lb) Body mass index is 25.79 kg/m?. 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 Last Wt 03/30/18 : 64 kg (141 lb) - standing weight in hospital gown 03/24/18 : 68 kg (150 lb) 03/16/18 : 68.2 kg (150 lb 6.4 oz) - OP office visit (with shoes/clothes) 07/13/17 : 67.6 kg (149 lb) 07/05/17 : 68 kg (150 lb) MNT Billing Type: Initial Assess/15 min 2 units SIGNATURE: Sherrell Amin RD PATIENT NAME: Gloria Mathew DATE: March 31, 2018 TIME: 9:30 AM PAGER: [phone] BRIEF OP NOT Observed: 03/31/2018 Status: COMPLETED Source: [place] 8:34 AM CLINIC OTHER CAMPUS REPOSITORY HNO ID: [id number] Author: Jean-Pierre Perez Service: Cardiovascular Medicine Author Type: Physician Type: Brief Op Note Filed: 03/31/2018 8:36 AM Note Text: MEERA-indication MV disease Findings LVEF 60%; small LV Mildly thicked trileaflet AV; trace AR, mild BERTO 1.7 cmsq by planimetry MV severe calcification, rheumatic, thickened chords, diminished opening ; 1-2+ MR; mean gradient 17 mmhg Mod-severe MS TV-normal morphology; mild TR IMP-needs tissue MVR Jean-Pierre Perez MD Pager [phone] PROTIME Collected: 03/31/2018 Status: F Source: [facility] 3:30 AM HEALTH SYSTEM REPOSITORY TYPE CODE TESTS RESULT OUT OF REFERENCE UNITS RANGE LAB PTI(LOINC) 9.7-13.0 sec Prothrombin High Time 18.2 LAB INR(LOINC) 0.90-1.30 INR High 1.83 Result Comment: Note: Reference Range Change Vitamin K Antagonist (VKA) Therapeutic Range: INR 2 to 3 (Target INR of 2.5) Note: For patients treated with VKA drugs, such as warfarin, the [employer] 2012 Guideline recommends a therapeutic INR range of 2 to 3 (target INR of 2.5). This recommendation includes high-risk patients with antiphospholipid syndrome with previous arterial or venous thromboembolism, current-generation mechanical or bioprosthetic aortic heart valve replacement. VKA Therapeutic Range for some Mechanical Valve Replacement: INR 2.5 to 3.5 (Target INR of 3) Note: Patients with mechanical aortic valve replacement and additional risk factors for thromboembolic events (atrial fibrillation, previous thromboembolism, LV dysfunction, hypercoagulable conditions) or an older generation mechanical AVR (i.e., ball in-Cage) or any mechanical MVR should have a INR therapeutic range of 2.5 to 3.5 target INR of 3). Nathanael GH, et al. Chest 2012; 141:7S-47S Marbella RA et al. JAC 2017; 70: 252-289 Performed By: #### PT #### [place] [id number] PROGRESS Observed: 03/30/2018 Status: COMPLETED Source: [place] 4:51 PM CLINIC OTHER CAMPUS REPOSITORY O ID: [id number] Author: Oj Phan Service: Hospital Medicine Author Type: Physician Type: Progress Notes Filed: 03/30/2018 4:57 PM Note Text: DEPARTMENT OF HOSPITAL MEDICINE PROGRESS NOTE SERVICE DATE: 03/30/2018 SERVICE TIME: 4:52 PM Hospital Medicine/Primary Attending: Oj Phan MD NIGHT AND WEEKEND COVERAGE: After 7pm please page [phone] CHIEF COMPLAINT: atrial fib with rvr. Left flank pain. SUBJECTIVE: Left flank pain better. No chest pain or dyspnea. OBJECTIVE: PHYSICAL EXAM: BP 107/61 Pulse 123 Temp (Src) 98.4 (Oral) Resp 18 Ht 5' 2 (1.58m) Wt 141 lb (64.0kg) SpO2 94% BMI 25.78 kg/(m2). GENERAL: Alert, no distress, cooperative, SKIN: Skin color, texture, turgor normal. No rashes or lesions. OROPHARYNX: Lips, mucosa, and tongue normal. Teeth and gums normal. Oropharynx normal. LUNGS: Lungs clear to auscultation, Air entry good, Unlabored breathing. CARDIAC: Normal S1 and S2; no rubs, murmurs, or gallops ABDOMEN: Abdomen soft, non-tender, non-distended, BS normal EXTREMITIES: Normal, no deformities, edema, clubbing or skin discoloration. NEURO: Grossly normal cognition, motor function, and cranial nerves III-XII MEDICATIONS: Current hospital medications: sodium chloride 0.65 % 2 [place] (AYR, OCEAN) 2 [place] EACH NOSTRIL PRN morphine 1 mg injection 1 mg INTRAVENOUS q 3 H PRN ondansetron (PF) 4 mg injection (ZOFRAN) 4 mg INTRAVENOUS q 6 H PRN dicyclomine 10 mg cap(s) (BENTYL) 10 mg ORAL TID PRN cholestyramine 4 g packet (QUESTRAN) 4 g ORAL DAILY acetaminophen 325-650 mg tab(s) (TYLENOL) 325-650 mg ORAL q 6 H PRN digoxin 0.125 mg tab(s) (LANOXIN) 0.125 mg ORAL DAILY furosemide 40 mg tab(s) (LASIX) 40 mg ORAL DAILY gabapentin 200 mg cap(s) (NEURONTIN) 200 mg ORAL AT BEDTIME pramipexole 0.25 mg tab(s) (MIRAPEX) 0.25 mg ORAL AT BEDTIME metoprolol tartrate (short acting) 25 mg tab(s) (LOPRESSOR) 25 mg ORAL q 8 H atorvastatin 10 mg tab(s) (LIPITOR) 10 mg ORAL AT BEDTIME DATA: Diagnostic tests reviewed for today's visit: CBC, Coags, BMP, Mg, Phos Recent Labs 03/30/18 0520 03/29/18 0524 03/28/18 0605 WBC -- -- 10.05* HB -- -- 14.2 HCT -- -- 42.2 PLT -- -- 284 INR 2.36* 2.82* 2.82* NA -- -- 139 K -- -- 3.5 CHLOR -- -- 103 CO2 -- -- 30 BUN -- -- 16 CREAT -- -- 0.95 GLUC -- -- 83 CA -- -- 8.6 Liver Function, Amylase, AND Lipase Recent Labs 03/28/18 0605 TPROT 6.6 ALB 3.2* ALT 40 AST 13 ALKPHOS 85 TBILI 2.0* Cardiac Enzymes Heme: No results for input(s): RETICP, ABSRETIC, LD, JOHNIE, FE, TIBC, TRANSFERSAT in the last 24 hours. No results found for: UALBCR Assessment/Plan Patient Active Hospital Problem List: A-fib (HCC) (03/24/2018) ASSESSMENT: 1. Left flank pain with left hydronephrosis with perinephric fat stranding with left nephrolithiasis:?possible passed stone. UA negative for UTI. PVR low 112cc. Pain improved on tylenol. Evaluated by Urology- no further plan by urology. ? 2. Paroxysmal A fib with RvR: HR better controlled with dig and metoprolol. Treatment with amiodarone- stopped. Coumadin on hold and plan to start heparin gtt once INR<2 in anticipation of MEERA/ RHC (now scheduled for Thursday). inr was supratherapeutic on presentation, now trending down. Today 2.3 ? 3. Severe MS and MR: MEERA and R/L HC planned for tomorrow. Also evaluated by CTVS team for surgery ? 4. IBS: ? 5. Remote hx of uterine cancer?s/p hsyterectomy and XRT 30 years or so ago. ? PLAN: Monitor inr. Likely MEERA and R/L HC tomorrow VTE Prophylaxis: Patient is already anti-coagulated. Disposition: pending MEERA and heart cath and further plan for intervention Plan of care discussed with: Patient SIGNATURE: Oj Phan MD PATIENT NAME: Gloria Mathew DATE: March 30, 2018 TIME: 4:52 PM PAGER/CONTACT #: [phone] CASE MANAGEM Observed: 03/30/2018 Status: COMPLETED Source: [place] 3:06 PM CLINIC OTHER CAMPUS REPOSITORY O ID: [id number] Author: Roberto (Rn) MARCELLA Johnson Service: Care Management Author Type: Registered Nurse Type: Care Mgt Progress Note Filed: 03/30/2018 3:10 PM Note Text: CARE MANAGEMENT PROGRESS NOTE SERVICE DATE: 03/30/2018 SERVICE TIME: 1506 LOS: 6 days Epic reviewed, plan will be for MEERA and heart cath on 03/31, valve surgery at some point this admission, with dental eval prior to valve surgery. CM will continue to follow. SIGNATURE: Roberto Johnson RN PATIENT NAME: Gloria Mathew DATE: March 30, 2018 TIME: 3:06 PM PAGER/CONTACT #: [phone] CONSULT PROG Observed: 03/30/2018 Status: COMPLETED Source: [place] 9:50 AM CLINIC OTHER CAMPUS REPOSITORY O ID: [id number] Author: Jean-Pierre Perez Service: Cardiovascular Medicine Author Type: Physician Type: Consult Progress Note Filed: 03/30/2018 9:58 AM Note Text: PROGRESS NOTE CARDIOLOGY SERVICE SERVICE DATE: 03/30/2018 SERVICE TIME: 9:50 AM Subjective INTERIM HISTORY: No change palps and sob; no chest pain Objective PHYSICAL EXAM: Body mass index is 25.79 kg/m?. O2 Therapy: Continuous Positive Airway Pressure No Data Recorded Patient Vitals for the past 24 hrs: BP Temp Temp src Pulse Resp SpO2 Weight 03/30/18 0548 - - - - - - 64 kg (141 lb) 03/30/18 0505 97/67 37 ?C (98.6 ?F) Oral 115 16 100 % - 03/30/18 0015 100/60 36.8 ?C (98.2 ?F) Oral 120 16 96 % - 03/29/18 1945 119/88 37.2 ?C (99 ?F) Oral 106 18 96 % - 03/29/18 1600 91/60 36.7 ?C (98.1 ?F) Oral 94 18 94 % - 03/29/18 1137 118/73 36.8 ?C (98.2 ?F) Axillary 114 18 93 % - Tele afib at 110 NAD CHest no wheeze COR irreg sys m Abd nontender Mild bruising R radial pulse 2+ Tr edema Nl mentation MEDICATIONS: Current hospital medications: sodium chloride 0.65 % 2 [place] (AYR, OCEAN) 2 [place] EACH NOSTRIL PRN morphine 1 mg injection 1 mg INTRAVENOUS q 3 H PRN ondansetron (PF) 4 mg injection (ZOFRAN) 4 mg INTRAVENOUS q 6 H PRN dicyclomine 10 mg cap(s) (BENTYL) 10 mg ORAL TID PRN cholestyramine 4 g packet (QUESTRAN) 4 g ORAL DAILY acetaminophen 325-650 mg tab(s) (TYLENOL) 325-650 mg ORAL q 6 H PRN digoxin 0.125 mg tab(s) (LANOXIN) 0.125 mg ORAL DAILY furosemide 40 mg tab(s) (LASIX) 40 mg ORAL DAILY gabapentin 200 mg cap(s) (NEURONTIN) 200 mg ORAL AT BEDTIME pramipexole 0.25 mg tab(s) (MIRAPEX) 0.25 mg ORAL AT BEDTIME metoprolol tartrate (short acting) 25 mg tab(s) (LOPRESSOR) 25 mg ORAL q 8 H atorvastatin 10 mg tab(s) (LIPITOR) 10 mg ORAL AT BEDTIME DATA: Past 72 Hour Labs: Recent Labs 03/30/18 0503/28/18 0605 WBC -- -- 10.05* RBC -- -- 4.63 HB -- -- 14.2 HCT -- -- 42.2 MCV -- -- 91.1 MCH -- -- 30.7 MCHC -- -- 33.6 PLT -- -- 284 MPV -- -- 9.5 GLUC -- -- 83 BUN -- -- 16 CREAT -- -- 0.95 NA -- -- 139 K -- -- 3.5 CHLOR -- -- 103 CO2 -- -- 30 TPROT -- -- 6.6 ALB -- -- 3.2* CA -- -- 8.6 ALKPHOS -- -- 85 TBILI -- -- 2.0* AST -- -- 13 ALT -- -- 40 PTSEC 23.0* < > 27.2* INR 2.36* < > 2.82* < > = values in this interval not displayed. Last Lab Drawn: Triglyceride 103 03/26/2018 HDL Cholesterol 25 03/26/2018 LDL Calculated 48 03/26/2018 Cholesterol, Total 94 03/26/2018 Assessment/Plan Paroxysmal afib with rvr-rates mostly controlled 90-110 on metoprolol 25 tid and dig 125 daily. S/p amio gtt. ?Asymptomatic with rates. Holding coumadin for planned R/L heart cath for severe mitral disease. Will not plan cardioversion in pt until after valve surgery; ? Supratherapeutic INR-s/p vit k in ER. Trending down. 2.3 b today. Continue to hold coumadin-recheck INR am? Severe MS and MR-? Will plan MEERA and cath 03/31; reviewed rsik/benefit , alternative; will proceed; consent obtained Consult CT surg Dr De Los Santos; pt will need dental eval prior to any valve surgery ? ? SIGNATURE: Jean-Pierre Perez MD PATIENT NAME: Gloria Mathew DATE: March 30, 2018 TIME: 9:50 AM PAGER/CONTACT #: [phone] ALLIED HEALTH Observed: 03/30/2018 Status: COMPLETED Source: [place] 9:19 AM CLINIC OTHER CAMPUS REPOSITORY O ID: [id number] Author: Polo (Feller Operator) ONOFRE Lee Service: Cardiac Rehab Author Type: Registered Resp Therapist Type: Allied Health Filed: 03/30/2018 9:19 AM Note Text: CARDIAC REHAB 5 METER WALK TEST SERVICE DATE: 03/30/2018 SERVICE TIME: 0900 ASSESSMENT: 5 Meter Walk Test 5 Meter Walk Test Completed: Yes Trial 1 # of Seconds: 5.77 Trial 1 Assistive Device: None Trial 2 # of Seconds: 5.91 Trial 2 Assistive Device: None Trial 3 # of Seconds: 5.31 Trial 3 Assistive Device: None SIGNATURE: Polo Lee RRT PATIENT NAME: Gloria Mathew DATE: March 30, 2018 TIME: 9:19 AM PAGER/CONTACT #: [phone] PROTIME Collected: 03/30/2018 Status: F Source: [facility] 5:20 AM HEALTH SYSTEM REPOSITORY TYPE CODE TESTS RESULT OUT OF REFERENCE UNITS RANGE LAB PTI(LOINC) 9.7-13.0 sec Prothrombin High Time 23.0 LAB INR(LOINC) 0.90-1.30 INR High 2.36 Result Comment: Note: Reference Range Change Vitamin K Antagonist (VKA) Therapeutic Range: INR 2 to 3 (Target INR of 2.5) Note: For patients treated with VKA drugs, such as warfarin, the [employer] 2012 Guideline recommends a therapeutic INR range of 2 to 3 (target INR of 2.5). This recommendation includes high-risk patients with antiphospholipid syndrome with previous arterial or venous thromboembolism, current-generation mechanical or bioprosthetic aortic heart valve replacement. VKA Therapeutic Range for some Mechanical Valve Replacement: INR 2.5 to 3.5 (Target INR of 3) Note: Patients with mechanical aortic valve replacement and additional risk factors for thromboembolic events (atrial fibrillation, previous thromboembolism, LV dysfunction, hypercoagulable conditions) or an older generation mechanical AVR (i.e., ball in-Cage) or any mechanical MVR should have a INR therapeutic range of 2.5 to 3.5 target INR of 3). Nathanael GH, et al. Chest 2012; 141:7S-47S [place] LAURA et al. [facility] 2017; 70: 252-289 Performed By: #### PT #### [facility] [address] [id number] CONSULT Observed: 03/29/2018 Status: COMPLETED Source: [place] 12:16 PM CLINIC OTHER CAMPUS REPOSITORY HNO ID: [id number] Author: Gui De Los Santos Service: Cardiovascular Surgery Author Type: Physician Type: Consults Filed: 04/01/2018 8:29 PM Note Text: CARDIOTHORACIC SURGERY CONSULT / HANDP SERVICE DATE: 03/29/2018 SERVICE TIME: 12:17 PM Subjective PRIMARY SERVICE: Cardiothoracic Surgery CHIEF COMPLAINT: Chest palpitation, SOB, elevated INR HPI: This is a 77 year old female with PMH of moderately severe MR with moderate MS, rheumatic fever, Afib with RVR (new), TRISH (on Cpap) and IBS, who presented to ED with elevated INR (13), SOB and some chest discomfort/palpitation. Patient was recently diagnosed with A fib and was started on metoprolol and Coumadin by Dr. Perez's TUNNELLER on 03/16. Her HR was still high which her metoprolol dose was increased to 25 mg BID subsequently. Patient has been following Dr. Perez for her MR, MS with series of Echo studies and was scheduled to have L/R HC and MEERA done on 03/31 electively. She was advised to ED from coumadin clinic with elevated INR on Thursday. In ED, she was found to have HR of 140s- 150s, therefore, she received IV metoprolol and digoxin in addition to Vit K for the supra therapeutic INR. CXR found her to have bilateral pleural effusion with clinical symptom of SOB, so she was admitted for acute respiratory management with diuresis. During the interim, patient was found to have renal calculi on the left kidney, which subsequently resolved spontaneously without intervention. Consult to CTS is placed for Mitral valve evaluation. Patient denied chest pain, she does report some chest palpitation, mild shortness of breath with exertions and worsening of weakness, especially in her leg which was very debilitaing . Denied orthopnea or PND, no LH/DZ, syncope/presyncope or leg edema. Patient is seen today, she denied any SOB or chest palpitation. Patient is Able to Perform the Following Physical Activity: Do heavy work around the house, such as scrubbing floors, lifting or moving heavy furniture (8.00 METs) Patient has the following medical comorbidities which might affect the perioperative course: - Atrial fibrillation, rate not well controlled after started on BB initially, currently improved. and anticoagulated with Coumadin and had supratherepeutic INR, hence it is on hold now. - Patient with sleep apnea and uses CPAP. PAST MEDICAL HISTORY Diagnosis Date - Breast mass, right - IBS (irritable bowel syndrome) - Mitral valve regurgitation - Mitral valve stenosis - Pulmonary HTN (HCC) - Tricuspid regurgitation PAST SURGICAL HISTORY Procedure Laterality Date - BREAST BIOPSY - CHOLECYSTECTOMY HX 10/02/2011 - HYSTERECTOMY HX MARYELLEN/BLO - LEG SURGERY HX FAMILY HISTORY Problem Relation Age of Onset - Breast Cancer Mother stage III - Coronary Artery Disease Mother mother, uncle - Cancer Paternal Grandfather - Colon Cancer Maternal Grandmother - Diabetes Other uncle - Stroke Maternal Grandfather Social History Substance Use Topics - Smoking status: Never Smoker - Smokeless tobacco: Never Used - Alcohol use No Prescriptions Prior to Admission: Cyanocobalamin (VITAMIN B-12) 1,000 mcg subl Dissolve 1 tablet under the tongue once daily. Disp: Rfl: warfarin (COUMADIN) 1 mg tablet Take 0.5mg (1/2 tablet) daily. Disp: 30 tablet Rfl: 1 calcium carbonate (CALTRATE) 600 mg calcium (1,500 mg) tab Take 600 mg by mouth once daily. Disp: Rfl: metoprolol tartrate, short acting, (LOPRESSOR) 25 mg tablet Take 25 mg by mouth twice daily. Disp: Rfl: Taking pramipexole (MIRAPEX) 0.25 mg tablet Take 0.25 mg by mouth daily at bedtime. Disp: Rfl: warfarin (COUMADIN) 5 mg tablet TAKE 1 TABLET BY MOUTH EVERY DAY (Patient taking differently: Take 2.5mg (1/2 tablet) daily) Disp: 90 tablet Rfl: 3 PROAIR HFA 90 mcg/actuation inhaler 2 Puffs every 6 hours as needed for Wheezing/Shortness of Breath. Disp: Rfl: Taking cholestyramine (QUESTRAN) 4 gram packet Take 1 Packet by mouth once daily. Disp: Rfl: Taking gabapentin (NEURONTIN) 100 mg capsule Take 200 mg by mouth daily at bedtime. Disp: Rfl: Taking simvastatin (ZOCOR) 10 mg tablet Take 10 mg by mouth daily at bedtime. Disp: Rfl: Taking alendronate (FOSAMAX) 70 mg tablet Take 70 mg by mouth every Thursday. Disp: Rfl: Taking Biotin-Silicon Zjyr-W-Befspaof 5,000 mcg-100 mg- 50 mg tab Take 1 tablet by mouth once daily. Disp: Rfl: multivitamin tablet Take 1 tablet by mouth once daily. Disp: Rfl: Taking Cholecalciferol, Vitamin D3, 1,000 unit cap Take 1,000 Units by mouth once daily. Disp: Rfl: Taking Cyanocobalamin (VITAMIN B-12) 1,000 mcg subl Dissolve 1 tablet under the tongue once daily. warfarin (COUMADIN) 1 mg tablet Take 0.5mg (1/2 tablet) daily. calcium carbonate (CALTRATE) 600 mg calcium (1,500 mg) tab Take 600 mg by mouth once daily. metoprolol tartrate, short acting, (LOPRESSOR) 25 mg tablet Take 25 mg by mouth twice daily. pramipexole (MIRAPEX) 0.25 mg tablet Take 0.25 mg by mouth daily at bedtime. warfarin (COUMADIN) 5 mg tablet TAKE 1 TABLET BY MOUTH EVERY DAY PROAIR HFA 90 mcg/actuation inhaler 2 Puffs every 6 hours as needed for Wheezing/Shortness of Breath. cholestyramine (QUESTRAN) 4 gram packet Take 1 Packet by mouth once daily. gabapentin (NEURONTIN) 100 mg capsule Take 200 mg by mouth daily at bedtime. simvastatin (ZOCOR) 10 mg tablet Take 10 mg by mouth daily at bedtime. alendronate (FOSAMAX) 70 mg tablet Take 70 mg by mouth every Thursday. Biotin-Silicon Htjj-C-Ezogxpdy 5,000 mcg-100 mg- 50 mg tab Take 1 tablet by mouth once daily. multivitamin tablet Take 1 tablet by mouth once daily. Cholecalciferol, Vitamin D3, 1,000 unit cap Take 1,000 Units by mouth once daily. ALLERGIES No Known Allergies REVIEW OF SYSTEMS: PAIN ASSESSMENT: Negative for pain, history of chronic pain, or current treatment for a chronic pain condition. GENERAL: Positive for fatigue Within the last 2-3 weeks, See HPI. NECK: Negative for lumps, goiter, pain and significant neck swelling RESPIRATORY: Negative for cough, wheezing, Positive for shortness of breath on exertion lately CARDIOVASCULAR: Negative for chest pain leg swelling claudication orthopnea paroxysmal nocturnal dyspnea, Positive for palpitations . 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 SKIN: Negative for lesions, rash, and itching. PSYCH: Negative for sleep disturbance, mood disorder and recent psychosocial stressors. HEMATOLOGY/LYMPHOLOGY Negative for prolonged bleeding, bruising easily or swollen nodes. ENDOCRINE: Negative for cold or heat intolerance, polyuria, polydipsia and goiter. NEURO: No history of headaches, syncope, paralysis, seizures or tremors See HPI Objective PHYSICAL EXAM: BP 118/73 Pulse 114 Temp 36.8 ?C (98.2 ?F) (Axillary) Resp 18 Ht 157.5 cm (5' 2) Wt 64.7 kg (142 lb 10.2 oz) SpO2 93% BMI 26.09 kg/m? Body surface area is 1.68 meters squared. STS RISK CALCULATOR: 4.047% General Appearance: well developed and no distress Skin: warm and dry Neck: no JVD, no carotid bruits and thyroid not palpable Lungs: clear and respiratory effort: normal Heart: irregular rhythm, HR 114, no S3 and no S4 Peripheral Vascular/Arteries: pulses intact, dorsalis pedis +2 and radial +1 Abdomen: soft, non-tender and bowel sounds present Genitourinary: voiding without difficulty Musculoskeletal: no deformities Neurologic/Psychiatric: oriented to time, place and person and steady gait Extremities: normal exam of the extremities and no edema Lines, Drains, and Airways Line Peripheral 03/24/18 1454 Left Antecubital 20 Gauge 4 days @LDAASSESS(2::::8:)@ DATA: Diagnostic tests reviewed for today's visit: Significant Lab Results: Labs reviewed Chest X-RAY 03/24/2018: Findings as above most likely representing moderate pulmonary edema. ? Small bilateral pleural effusions with mild coexisting bibasilar atelectasis and/or infiltrate. ? Bilateral prominence, which is most likely related to probable avascular. ? However, follow-up chest CT is recommended to exclude the possibility of adenopathy. ECHO 06/04/2017: Final Impressions: Left Atrium The left atrium appears severely dilated in size. ALMA ROSA is 64.81 ml/m2. Mitral Valve The mitral leaflets are moderately thickened and calcified especially the anterior leaflet. No evidence of mitral valve prolapse. Moderate to moderately severe (2-3+) mitral regurgitation. There is moderate to severe mitral valve stenosis. Peak gradient is 30 mmHg. Mean gradient is 10 mmHg. Gradients were 27 and 14 mmHg respectively on previous echo in 2011. MVA estimated at 1.33cm2 by pressure half-time method. Rheumatic affection a possibility. Tricuspid Valve Mild to moderate (1-2+) tricuspid valve regurgitation. Moderate pulmonary hypertension. Right ventricular systolic pressure is estimated at 61 mmHg. Left Ventricle Normal left ventricular size and systolic function. No regional wall motion abnormalities. LVEF is 55-60% by visual estimation. E/E' is greater than 15, suggesting high left ventricular filling pressure EKG 03/24/2018: Diagnosis:ATRIAL FIBRILLATION WITH RAPID VENTRICULAR RESPONSE LOW VOLTAGE QRS NONSPECIFIC ST AND T WAVE ABNORMALITY ABNORMAL ECG WHEN COMPARED WITH ECG OF 28-AUG-2011 19:10, ATRIAL FIBRILLATION HAS REPLACED SINUS RHYTHM VENT. RATE HAS INCREASED BY ?65 BPM QUESTIONABLE CHANGE IN QRS AXIS NONSPECIFIC T WAVE ABNORMALITY NOW EVIDENT IN INFERIOR LEADS T WAVE INVERSION NOW EVIDENT IN ANTERIOR LEADS MEERA 03/31/2018: Per Dr. Perez's note: MEERA-indication MV disease ? Findings LVEF 60%; small LV Mildly thicked trileaflet AV; trace AR, mild BERTO 1.7 cmsq by planimetry ? MV severe calcification, rheumatic, thickened chords, diminished opening ; 1-2+ MR; mean gradient 17 mmhg Mod-severe MS ? TV-normal morphology; mild TR ? IMP-needs tissue MVR ? Heart catheterization 03/31/2018: R and L heart cath: indication Mitral stenosis Done via R radial artery and R fem venous approach ? Findings Normal coronaries LVG not done (60% EF on MEERA today) Calcified MV noted ? RA 4 PA 50/25 PCWP 26 LVEDP 5 LV 100/5 Aorta 95/60 ? IMP:No CAD Severe Mitral stenosis with 20-25 mmhg gradient across MV Minimal aortic stenosis ? Needs tissue MVR and probable MAZE, LA appendage excision ? Recent Labs 03/29/18 0524 03/28/18 0605 03/27/18 0330 03/26/18 1400 RBC -- 4.63 4.48 -- WBC -- 10.05* 11.60* -- HB -- 14.2 13.6 -- HCT -- 42.2 40.3 -- PLT -- 284 277 -- INR 2.82* 2.82* 3.03* -- NA -- 139 138 -- K -- 3.5 3.7 -- CHLOR -- 103 106 -- CO2 -- 30 23 -- BUN -- 16 19* -- CREAT -- 0.95 0.86 -- GLUC -- 83 107* -- CA -- 8.6 8.5 -- MG -- -- -- 1.6 TPROT -- 6.6 -- -- TBILI -- 2.0* -- -- ALKPHOS -- 85 -- -- ALT -- 40 -- -- AST -- 13 -- -- ANION -- 10 13 -- Recent Labs 03/27/18 1440 UPH 5.0 SPGR 1.010 UGLUC NEGATIVE UBILI NEGATIVE UKET NEGATIVE UPROT NEGATIVE Assessment/Plan Active Problems: A-fib (HCC) POA: Yes - currently HR improved. -c/w Digoxin, BB - coumadin on hold for therapeutic result, possible resume tomorrow per associate data scientist Mitral Regurgitation - MEERA, HC results reviewed briefly with Dr. Perez today: no CAD; Mod-severe MS -load reduction: diuresis daily - will discuss with Dr. De Los Santos regarding the case to formulate a plan -patient would need dental clearance prior MVR -pre-op work ups in progress Tests/Labs Ordered: 1. MRSA 2. Bedside spirometry 3. Dental clearance 4. 5 meter walk These findings will be communicated back to the requesting provider electronically. SIGNATURE: Rosaline Lauren APRN.CNP PATIENT NAME: Gloria Mathew DATE: March 29, 2018 TIME: 12:17 PM PAGER/CONTACT #:[phone] ETX [phone] Attending Note I have personally performed a face to face assessment of the patient and have reviewed the PA/HERB COUNSELOR note. My rg findings include: Assessment/Plan are 77 year old woman with symptomatic severe MS and mod MR with mod secondary PA hypertension, normal LV and normal Deyvi complicated by AF with RVR. I agree with the recommendation for MVR with bioprosthesis; concomitant full maze with exclusion of OLGA. Preop eval as above. Scheduled for OP dental eval. I request CT chest to evaluate bilateral hilar fullness. Surgery in near future. Will need to stop coumadin and bridge with lovenox. Gui De Los Santos MD Other additions or changes: None Signature: Gui De Los Santos MD Date: 04/01/2018 Time: 8:27 PM CONSULT PROG Observed: 03/29/2018 Status: COMPLETED Source: [place] 10:27 AM CLINIC OTHER CAMPUS REPOSITORY HNO ID: [id number] Author: Jean-Pierre Perez Service: Cardiovascular Medicine Author Type: Physician Type: Consult Progress Note Filed: 03/29/2018 10:49 AM Note Text: PROGRESS NOTE CARDIOLOGY SERVICE SERVICE DATE: 03/29/2018 SERVICE TIME: 10:34 AM Subjective INTERIM HISTORY: Less sob; no chest pain or nausea; no edema; no bleeding Objective PHYSICAL EXAM: Body mass index is 26.09 kg/m?. O2 Therapy: Room Air No Data Recorded Patient Vitals for the past 24 hrs: BP Temp Temp src Pulse Resp SpO2 Weight 03/29/18 0819 - - - - - - 64.7 kg (142 lb 10.2 oz) 03/29/18 0513 102/68 36.4 ?C (97.5 ?F) Oral 102 18 98 % - 03/29/18 0047 (!) 91/41 36.9 ?C (98.4 ?F) Oral (!) 125 18 98 % - 03/28/18 2132 99/51 37.1 ?C (98.8 ?F) Oral 119 20 98 % - 03/28/18 1719 97/56 - - - - - - 03/28/18 1603 84/51 37.2 ?C (99 ?F) Oral 72 16 95 % - 03/28/18 1348 - - - (!) 130 - - - 03/28/18 1100 104/88 36.7 ?C (98.1 ?F) Oral 108 18 94 % - Tele afib at 110-120 Pleasant, comfortable, not in acute distress. Awake, alert, oriented times 3. Moves all extremities. NECK: nl carotid upstroke LUNGS: Clear to auscultation bilaterally. ABDOMEN: Soft, nontender, EXTREMITIES: No edema. PULSES: Peripheral pulses present. CARDIAC:irreg at 120 1/6 syst m. MEDICATIONS: Current hospital medications: morphine 1 mg injection 1 mg INTRAVENOUS q 3 H PRN ondansetron (PF) 4 mg injection (ZOFRAN) 4 mg INTRAVENOUS q 6 H PRN dicyclomine 10 mg cap(s) (BENTYL) 10 mg ORAL TID PRN cholestyramine 4 g packet (QUESTRAN) 4 g ORAL DAILY acetaminophen 325-650 mg tab(s) (TYLENOL) 325-650 mg ORAL q 6 H PRN digoxin 0.125 mg tab(s) (LANOXIN) 0.125 mg ORAL DAILY furosemide 40 mg tab(s) (LASIX) 40 mg ORAL DAILY gabapentin 200 mg cap(s) (NEURONTIN) 200 mg ORAL AT BEDTIME pramipexole 0.25 mg tab(s) (MIRAPEX) 0.25 mg ORAL AT BEDTIME metoprolol tartrate (short acting) 25 mg tab(s) (LOPRESSOR) 25 mg ORAL q 8 H atorvastatin 10 mg tab(s) (LIPITOR) 10 mg ORAL AT BEDTIME DATA: Past 72 Hour Labs: Recent Labs 03/29/18 0524 03/28/18 0605 03/26/18 1400 WBC -- 10.05* < > -- RBC -- 4.63 < > -- HB -- 14.2 < > -- HCT -- 42.2 < > -- MCV -- 91.1 < > -- MCH -- 30.7 < > -- MCHC -- 33.6 < > -- PLT -- 284 < > -- MPV -- 9.5 < > -- GLUC -- 83 < > -- BUN -- 16 < > -- CREAT -- 0.95 < > -- NA -- 139 < > -- K -- 3.5 < > -- CHLOR -- 103 < > -- CO2 -- 30 < > -- TPROT -- 6.6 -- -- ALB -- 3.2* -- -- CA -- 8.6 < > -- ALKPHOS -- 85 -- -- TBILI -- 2.0* -- -- AST -- 13 -- -- ALT -- 40 -- -- PTSEC 27.2* 27.2* < > -- INR 2.82* 2.82* < > -- MG -- -- -- 1.6 < > = values in this interval not displayed. Last Lab Drawn: Triglyceride 103 03/26/2018 HDL Cholesterol 25 03/26/2018 LDL Calculated 48 03/26/2018 Cholesterol, Total 94 03/26/2018 Assessment/Plan Active Problems: Paroxysmal afib with rvr-rates mostly controlled 90-110 on metoprolol 25 tid and dig 125 daily. S/p amio gtt. Asymptomatic with rates. Holding coumadin for planned R/L heart cath for severe mitral disease. Once INR <2.0 should start hep gtt. Had been planning on outpt MEERA and R/L cath, but had supratherpeutic inr.Will not plan cardioversion in pt until after valve surgery; ? Supratherapeutic INR-s/p vit k in ER. Trending down. 2.8 b today. Continue to hold coumadin ? Severe MS and MR- see above. MEERA and r/l heart cath. MEERA on Thursday +/- cath depending on INR. Make NPO at [place] in case INR low enough. C/w PO lasix for now. ? Will plan MEERA and cath 03/31; reviewed rsik/benefit , alternative; will proceed; consent obtained Consult CT surg Dr De Los Santos; pt will need dental eval prior to any valve surgery SIGNATURE: Jean-Pierre Perez MD PATIENT NAME: Gloria Mathew DATE: March 29, 2018 TIME: 10:34 AM PAGER/CONTACT #: [phone] PROGRESS Observed: 03/29/2018 Status: COMPLETED Source: [place] 10:19 AM CLINIC OTHER CAMPUS REPOSITORY HNO ID: [id number] Author: Oj Phan Service: Hospital Medicine Author Type: Physician Type: Progress Notes Filed: 03/29/2018 10:25 AM Note Text: DEPARTMENT OF HOSPITAL MEDICINE PROGRESS NOTE SERVICE DATE: 03/29/2018 SERVICE TIME: 10:19 AM Hospital Medicine/Primary Attending: Oj Phan MD NIGHT AND WEEKEND COVERAGE: After 7pm please page [phone] CHIEF COMPLAINT: atrial fib with rvr. Left flank pain SUBJECTIVE: MEERA/ heart cath postponed to Thursday, INR still 2.8. No palpitation or dyspnea. Left flank pain decreasing- taking tylenol. No abdominal pain. OBJECTIVE: PHYSICAL EXAM: BP 102/68 Pulse 102 Temp (Src) 97.5 (Oral) Resp 18 Ht 5' 2 (1.58m) Wt 142 lb 10.2 oz (64.7kg) SpO2 98% BMI 26.08 kg/(m2). GENERAL: Alert, no distress, cooperative, SKIN: Skin color, texture, turgor normal. No rashes or lesions. OROPHARYNX: Lips, mucosa, and tongue normal. Teeth and gums normal. Oropharynx normal. LUNGS: Lungs clear to auscultation, Air entry good, Unlabored breathing. CARDIAC: Normal S1 and S2; no rubs, or gallops, systolic murmur at mitral area. ABDOMEN: Abdomen soft, non-tender, non-distended, BS normal EXTREMITIES: Normal, no deformities, edema, clubbing or skin discoloration. NEURO: Grossly normal cognition, motor function, and cranial nerves III-XII MEDICATIONS: Current hospital medications: morphine 1 mg injection 1 mg INTRAVENOUS q 3 H PRN ondansetron (PF) 4 mg injection (ZOFRAN) 4 mg INTRAVENOUS q 6 H PRN dicyclomine 10 mg cap(s) (BENTYL) 10 mg ORAL TID PRN cholestyramine 4 g packet (QUESTRAN) 4 g ORAL DAILY acetaminophen 325-650 mg tab(s) (TYLENOL) 325-650 mg ORAL q 6 H PRN digoxin 0.125 mg tab(s) (LANOXIN) 0.125 mg ORAL DAILY furosemide 40 mg tab(s) (LASIX) 40 mg ORAL DAILY gabapentin 200 mg cap(s) (NEURONTIN) 200 mg ORAL AT BEDTIME pramipexole 0.25 mg tab(s) (MIRAPEX) 0.25 mg ORAL AT BEDTIME metoprolol tartrate (short acting) 25 mg tab(s) (LOPRESSOR) 25 mg ORAL q 8 H atorvastatin 10 mg tab(s) (LIPITOR) 10 mg ORAL AT BEDTIME DATA: Diagnostic tests reviewed for today's visit: CBC, Coags, BMP, Mg, Phos Recent Labs 03/29/18 0524 03/28/18 0605 03/27/18 0330 03/26/18 1400 WBC -- 10.05* 11.60* -- HB -- 14.2 13.6 -- HCT -- 42.2 40.3 -- PLT -- 284 277 -- INR 2.82* 2.82* 3.03* -- NA -- 139 138 -- K -- 3.5 3.7 -- CHLOR -- 103 106 -- CO2 -- 30 23 -- BUN -- 16 19* -- CREAT -- 0.95 0.86 -- GLUC -- 83 107* -- CA -- 8.6 8.5 -- MG -- -- -- 1.6 Liver Function, Amylase, AND Lipase Recent Labs 03/28/18 0605 TPROT 6.6 ALB 3.2* ALT 40 AST 13 ALKPHOS 85 TBILI 2.0* Cardiac Enzymes Heme: No results for input(s): RETICP, ABSRETIC, LD, JOHNIE, FE, TIBC, TRANSFERSAT in the last 24 hours. No results found for: UALBCR Assessment/Plan Patient Active Hospital Problem List: A-fib ([facility]) (03/24/2018) ASSESSMENT: 1. Left flank pain with left hydronephrosis with perinephric fat stranding with left nephrolithiasis:?possible passed stone. UA negative for UTI. PVR low 112cc. Pain improved. Evaluated by Urology- no further plan by urology. 2. Paroxysmal A fib with RvR: HR better controlled with dig and metoprolol. Treatment with amiodarone- stopped. INR therapeutic still. Coumadin on hold and plan to start heparin gtt once INR<2 in anticipation of MEERA/ RHC (now scheduled for Thursday).? 3. Severe MS and MR: MEERA and R/L HC on Thursday. ? 4. IBS: ? 5. Remote hx of uterine cancer?s/p hsyterectomy and XRT 30 years or so ago. ? 6. Supratherapeutic INR on presentation: coumadin on hold. inr therapeutic now. ? PLAN: Continue above treatment. Follow INR. When <2, start heparin drip. MEERA and R/L HC on Thursday if INR reasonable. VTE Prophylaxis: Patient is already anti-coagulated. Disposition: pending MEERA and heart cath and further plan for intervention Plan of care discussed with: Patient SIGNATURE: Oj Phan MD PATIENT NAME: Gloria Mathew DATE: March 29, 2018 TIME: 10:19 AM PAGER/CONTACT #: [phone] CASE MANAGEM Observed: 03/29/2018 Status: COMPLETED Source: [place] 9:03 AM [facility] OTHER [place] REPOSITORY HNO ID: [id number] Author: Brittany (Rn) MARCELLA Dumont Service: Care Management Author Type: Registered Nurse Type: Care Mgt Progress Note Filed: 03/29/2018 9:05 AM Note Text: CARE MANAGEMENT PROGRESS NOTE SERVICE DATE: 03/29/2018 SERVICE TIME: 0900 LOS: 5 days Chart reviewed. Plan for MEERA and Paul cath today. No needs noted at this time. Plans to return home w/ spouse on DC once medically. CM to follow. SIGNATURE: Brittany Dumont RN PATIENT NAME: Gloria Mathew DATE: March 29, 2018 TIME: 9:03 AM PAGER/CONTACT #: [phone] Observed: 03/29/2018 Status: COMPLETED Source: [place] 6:53 AM [facility] REPOSITORY HNO ID: [id number] Author: Fredo Nugent Service: Urology Author Type: Physician Type: Progress Notes Filed: 03/29/2018 10:07 AM Note Text: UROLOGY PROGRESS NOTE PATIENT NAME: Gloria Mathew DATE OF : 1940 ADMISSION DATE: 03/24/2018 6:38 PM Subjective No acute events overnight. Patient denies any nausea, vomiting, fever, or chills. Endorses decreased L flank/CVA region pain PVR overnight 112cc. Objective VS: BP 102/68 Pulse 102 Temp 36.4 ?C (97.5 ?F) (Oral) Resp 18 Ht 157.5 cm (5' 2) Wt 63.5 kg (140 lb) SpO2 98% BMI 25.61 kg/m? I AND O - 24hr: Intake/Output Summary (Last 24 hours) at 03/29/18 0653 Last data filed at 03/29/18 0500 Gross per 24 hour Intake 226 ml Output 650 ml Net -424 ml Physical Exam: General: Neck: Resp: Abdomen: No acute distress Supple Normal effort Soft, non-tender, nondistended : Minimal TTP in L flank/CVA region Labs and Imaging Studies LABS: BMP: Glucose (mg/dL) Date Value 03/28/2018 83 Potassium (mEq/L) Date Value 03/28/2018 3.5 Sodium (mEq/L) Date Value 03/28/2018 139 Chloride (mEq/L) Date Value 03/28/2018 103 CO2 (mEq/L) Date Value 03/28/2018 30 Creatinine (mg/dL) Date Value 03/28/2018 0.95 BUN (mg/dL) Date Value 03/28/2018 16 Anion Gap (no units) Date Value 03/28/2018 10 Calcium (mg/dL) Date Value 03/28/2018 8.6 CBC: HGB (g/dL) Date Value 03/28/2018 14.2 Hematocrit (%) Date Value 03/28/2018 42.2 WBC (thou/cmm) Date Value 03/28/2018 10.05 Platelet Count (thou/cmm) Date Value 03/28/2018 284 Urinalysis: Specific [place], Ur Date Value Ref Range Status 03/27/2018 1.010 1.005 - 1.030 Final Glucose, Urine Date Value Ref Range Status 03/27/2018 NEGATIVE Negative mg/dL Final Bilirubin, Urine Date Value Ref Range Status 03/27/2018 NEGATIVE Negative Final Ketones, Urine Date Value Ref Range Status 03/27/2018 NEGATIVE Negative mg/dL Final Protein, Urine Date Value Ref Range Status 03/27/2018 NEGATIVE Negative mg/dL Final Urobilinogen, Urine Date Value Ref Range Status 03/27/2018 0.2 0.0 - 1.0 EU/dL Final Urine Culture: No results found for: URCUL RADIOLOGY: EXAMINATION: ?CT ABDOMEN AND PELVIS WITHOUT IV CONTRAST ? CLINICAL HISTORY: ?Left flank pain. ? TECHNIQUE: Non-IV contrast imaging of the abdomen and pelvis was performed using standard technique, scanning from just above the dome of the diaphragm to the symphysis pubis. ?Unenhanced imaging is limited for the evaluation of some intra-abdominal and pelvic pathology. MQ: ?CTAPWO_3 ? ? Contrast: None CT Dose-Length Product: ?483.32 mGy*cm CT Dose Reduction Employed: Automated exposure control (AEC) was used. ? ? COMPARISON: Contrast-enhanced CT abdomen/pelvis 09/24/2017 ? ? RESULT: ? Abdomen / Pelvis: ? Liver: Unremarkable unenhanced liver. ? ? ? Biliary: S/p cholecystectomy. ? Spleen: No splenomegaly. ? Pancreas: Unremarkable. ? Adrenals: No mass. ? Kidneys: Bilateral peripelvic and cortical cysts are again noted. ?There are approximately 4 tiny nonobstructing calculi in the left kidney. ?There is mild/moderate left hydronephrosis with perinephric and periureteral fat stranding and thickening of the anterior pararenal fascia. ? No obstructing ureteral calculus or mass. ?The appearance may be secondary to a recently passed stone and given the degree of stranding around the left kidney, the possibility of forniceal ?rupture is considered. ?No right-sided hydronephrosis or hydroureter. ? GI Tract: No bowel dilation. ?Normal appendix. ?Pancolonic diverticulosis without findings to suggest acute appendicitis. ? Lymph Nodes: No lymphadenopathy. ? Mesentery/peritoneum: No ascites. ? Retroperitoneum: No mass. ? Vasculature: Arterial atherosclerotic disease without aneurysm. ? Pelvis: No mass or ascites. ?Urinary bladder is unremarkable. ?Uterus is absent. ? Bones/Soft Tissues: No acute abnormality. ? Lower thorax: Small bilateral pleural effusions (right larger than left) with compressive atelectasis. ?There is multichamber cardiac enlargement. ? IMPRESSION: 1. ?Mild/moderate left hydronephrosis with perinephric and periureteral fat stranding. No obstructing ureteral calculus or mass. ?The appearance may be secondary to a recently passed stone and given the degree of stranding around the left kidney, the possibility of forniceal rupture is considered. ?There are at least 4 small nonobstructing left renal calculi. ? 2. Small bilateral pleural effusions (right larger than left) with compressive atelectasis. ? 3. ?Normal appendix. Pancolonic diverticulosis without acute diverticulitis. ? Assessment and Plan ASSESSMENT: 77 year old female with mild left hydro with perinephric stranding, left non-obstructing renal calculi. - AVSS overnight - pain improving - UA negative - Cr WNL PLAN: - PVR low - 112cc - cont medical management/pain control per primary team - urology will s/o at this time - patient likely passed stone - please page on-call resident if pain worsens/patient becomes febrile - will discuss with attending I saw and evaluated the patient. Discussed with the resident and agree with resident's findings and plan as documented in the resident's note. MD Brandt Mccarthy, DO Urology, PGY-1 [id number] PROTIME Collected: 03/29/2018 Status: F Source: [facility] 5:24 AM HEALTH SYSTEM REPOSITORY TYPE CODE TESTS RESULT OUT OF REFERENCE UNITS RANGE LAB PTI(LOINC) 9.7-13.0 sec Prothrombin High Time 27.2 LAB INR(LOINC) 0.90-1.30 INR High 2.82 Result Comment: Note: Reference Range Change Vitamin K Antagonist (VKA) Therapeutic Range: INR 2 to 3 (Target INR of 2.5) Note: For patients treated with VKA drugs, such as warfarin, the [employer] 2012 Guideline recommends a therapeutic INR range of 2 to 3 (target INR of 2.5). This recommendation includes high-risk patients with antiphospholipid syndrome with previous arterial or venous thromboembolism, current-generation mechanical or bioprosthetic aortic heart valve replacement. VKA Therapeutic Range for some Mechanical Valve Replacement: INR 2.5 to 3.5 (Target INR of 3) Note: Patients with mechanical aortic valve replacement and additional risk factors for thromboembolic events (atrial fibrillation, previous thromboembolism, LV dysfunction, hypercoagulable conditions) or an older generation mechanical AVR (i.e., ball in-Cage) or any mechanical MVR should have a INR therapeutic range of 2.5 to 3.5 target INR of 3). Nathanael PITTS, et al. Chest 2012; 141:7S-47S Marbella LAURA et al. [facility] 2017; 70: 252-289 Performed By: #### PT #### [facility] [address] [id number] NURSING PROG Observed: 03/28/2018 Status: COMPLETED Source: [place] 4:23 PM [facility] OTHER [place] REPOSITORY HNO ID: [id number] Author: Abbey (Rn) MARCELLA Sellers Service: (none) Author Type: Registered Nurse Type: Nursing Progress Note Filed: 03/28/2018 4:27 PM Note Text: RAC IV site with redness and hardness at the insertion site, IV removed pressure dressing applied, pt instructed to notify nurse with any pain at the site, pt verbalized understanding, call huang and bedside table within reach. Will continue to monitor PROGRESS Observed: 03/28/2018 Status: COMPLETED Source: [place] 10:47 AM CLINIC OTHER [place] REPOSITORY HNO ID: [id number] Author: Oj Phan Service: Hospital Medicine Author Type: Physician Type: Progress Notes Filed: 03/28/2018 11:00 AM Note Text: DEPARTMENT OF HOSPITAL MEDICINE PROGRESS NOTE SERVICE DATE: 03/28/2018 SERVICE TIME: 10:47 AM Hospital Medicine/Primary Attending: Oj Phan MD NIGHT AND WEEKEND COVERAGE: After 7pm please page [phone] CHIEF COMPLAINT: left flank pain. A fib with rvr SUBJECTIVE: Left flank pain better with tylenol. No anterior abdominal pain. No dysuria. No fever or chills. Had RVR and got metoprolol. OBJECTIVE: PHYSICAL EXAM: BP 103/59 Pulse 98 Temp (Src) 98.2 (Oral) Resp 20 Ht 5' 2 (1.58m) Wt 140 lb (63.5kg) SpO2 91% BMI 25.60 kg/(m2). GENERAL: Alert, no distress, cooperative, SKIN: Skin color, texture, turgor normal. No rashes or lesions. OROPHARYNX: Lips, mucosa, and tongue normal. Teeth and gums normal. Oropharynx normal. LUNGS: Lungs clear to auscultation, Air entry good, Unlabored breathing. CARDIAC: Normal S1 and S2; no rubs, murmurs, or gallops, irregular rhythm ABDOMEN: Abdomen soft, non-tender, non-distended, BS normal EXTREMITIES: Normal, no deformities, edema, clubbing or skin discoloration. NEURO: Grossly normal cognition, motor function, and cranial nerves III-XII MEDICATIONS: Current hospital medications: dicyclomine 10 mg cap(s) (BENTYL) 10 mg ORAL TID PRN cholestyramine 4 g packet (QUESTRAN) 4 g ORAL DAILY [START ON 03/29/2018] NaCl 0.9% iv infusion 50 mL/hr INTRAVENOUS CONTINUOUS acetaminophen 325-650 mg tab(s) (TYLENOL) 325-650 mg ORAL q 6 H PRN digoxin 0.125 mg tab(s) (LANOXIN) 0.125 mg ORAL DAILY furosemide 40 mg tab(s) (LASIX) 40 mg ORAL DAILY gabapentin 200 mg cap(s) (NEURONTIN) 200 mg ORAL AT BEDTIME pramipexole 0.25 mg tab(s) (MIRAPEX) 0.25 mg ORAL AT BEDTIME metoprolol tartrate (short acting) 25 mg tab(s) (LOPRESSOR) 25 mg ORAL q 8 H atorvastatin 10 mg tab(s) (LIPITOR) 10 mg ORAL AT BEDTIME DATA: Diagnostic tests reviewed for today's visit: CBC, Coags, BMP, Mg, Phos Recent Labs 03/28/18 0605 03/27/18 0330 03/26/18 1400 03/26/18 0845 03/26/18 0530 WBC 10.05* 11.60* -- -- 7.10 HB 14.2 13.6 -- -- 12.5 HCT 42.2 40.3 -- -- 36.5 PLT 284 277 -- -- 254 INR 2.82* 3.03* -- 2.99* -- NA 139 138 -- -- 140 K 3.5 3.7 -- -- 3.4* CHLOR 103 106 -- -- 105 CO2 30 23 -- -- 25 BUN 16 19* -- -- 24* CREAT 0.95 0.86 -- -- 1.08* GLUC 83 107* -- -- 90 CA 8.6 8.5 -- -- 8.2* MG -- -- 1.6 -- -- Liver Function, Amylase, AND Lipase Recent Labs 03/28/18 0605 TPROT 6.6 ALB 3.2* ALT 40 AST 13 ALKPHOS 85 TBILI 2.0* Cardiac Enzymes Heme: No results for input(s): RETICP, ABSRETIC, LD, JOHNIE, FE, TIBC, TRANSFERSAT in the last 24 hours. No results found for: UALBCR Assessment/Plan Patient Active Hospital Problem List: A-fib (HCC) (03/24/2018) ASSESSMENT: 1. Left flank pain with left hydronephrosis with perinephric fat stranding with left nephrolithiasis: possible passed stone. UA negative for UTI. Pain improved. Evaluated by Urology-may get ureteric stent placement tomorrow. 2. Paroxysmal A fib with RvR: HR better controlled with dig and metoprolol. Treatment with amiodarone- stopped. INR therapeutic no. Coumadin on hold. Plan to start heparin gtt once INR<2 in anticipation of MEERA/ RHC on Thursday. ? 3. Severe MS and MR: MEERA and R/L HC on Thursday. ? 4. IBS: ? 5. Remote hx of uterine cancer s/p hsyterectomy and XRT 30 years or so ago. 6. Supratherapeutic INR on presentation: coumadin on hold. inr therapeutic now. PLAN: Continue above treatment. Likely MEERA +-L/RHC tomorrow. Possible ureteric stent by urology tomorrow. VTE Prophylaxis: Patient is already anti-coagulated. Disposition: Home Plan of care discussed with: Patient SIGNATURE: Oj Phan MD PATIENT NAME: Gloria Mathew DATE: March 28, 2018 TIME: 10:47 AM PAGER/CONTACT #: [phone] CONSULT Observed: 03/28/2018 Status: COMPLETED Source: [place] 9:23 AM CLINIC OTHER CAMPUS REPOSITORY O ID: [id number] Author: Scooter Frederick Service: Urology Author Type: Physician Type: Consults Filed: 03/28/2018 10:57 AM Note Text: Urology Inpatient Consultation 03/24/2018 HISTORY OF PRESENT ILLNESS: The patient is a 77 year old female new to our service presented yesterday with palpitations and found to be in A fib with RVR, supratherapeutic INR 13.7, and respiratory failure. CT showed mild left sided hydro with perinephric stranding. Patient with left flank pain and urology consulted for recommendations. Patient denies history of nephrolithiasis or seeing a urologist in the past. States that she started having left flank pain after admission but it is much better now with tylenol. Denies fevers, chills, nausea, vomiting, dysuria, hematuria. PAST MEDICAL HISTORY: PAST MEDICAL HISTORY Diagnosis Date - Breast mass, right - IBS (irritable bowel syndrome) - Mitral valve regurgitation - Mitral valve stenosis - Pulmonary HTN (HCC) - Tricuspid regurgitation PAST SURGICAL HISTORY: PAST SURGICAL HISTORY Procedure Laterality Date - BREAST BIOPSY - CHOLECYSTECTOMY HX 10/02/2011 - HYSTERECTOMY HX MARYELLEN/BLO - LEG SURGERY HX ALLERGIES: ALLERGIES No Known Allergies HOME MEDICATIONS: Prescriptions Prior to Admission: Cyanocobalamin (VITAMIN B-12) 1,000 mcg subl Dissolve 1 tablet under the tongue once daily. Disp: Rfl: warfarin (COUMADIN) 1 mg tablet Take 0.5mg (1/2 tablet) daily. Disp: 30 tablet Rfl: 1 calcium carbonate (CALTRATE) 600 mg calcium (1,500 mg) tab Take 600 mg by mouth once daily. Disp: Rfl: metoprolol tartrate, short acting, (LOPRESSOR) 25 mg tablet Take 25 mg by mouth twice daily. Disp: Rfl: Taking pramipexole (MIRAPEX) 0.25 mg tablet Take 0.25 mg by mouth daily at bedtime. Disp: Rfl: warfarin (COUMADIN) 5 mg tablet TAKE 1 TABLET BY MOUTH EVERY DAY (Patient taking differently: Take 2.5mg (1/2 tablet) daily) Disp: 90 tablet Rfl: 3 PROAIR HFA 90 mcg/actuation inhaler 2 Puffs every 6 hours as needed for Wheezing/Shortness of Breath. Disp: Rfl: Taking cholestyramine (QUESTRAN) 4 gram packet Take 1 Packet by mouth once daily. Disp: Rfl: Taking gabapentin (NEURONTIN) 100 mg capsule Take 200 mg by mouth daily at bedtime. Disp: Rfl: Taking simvastatin (ZOCOR) 10 mg tablet Take 10 mg by mouth daily at bedtime. Disp: Rfl: Taking alendronate (FOSAMAX) 70 mg tablet Take 70 mg by mouth every Thursday. Disp: Rfl: Taking Biotin-Silicon Dpwg-K-Xrrrobbh 5,000 mcg-100 mg- 50 mg tab Take 1 tablet by mouth once daily. Disp: Rfl: multivitamin tablet Take 1 tablet by mouth once daily. Disp: Rfl: Taking Cholecalciferol, Vitamin D3, 1,000 unit cap Take 1,000 Units by mouth once daily. Disp: Rfl: Taking FAMILY HISTORY: Family History Problem Relation Age of Onset - Breast Cancer Mother stage III - Coronary Artery Disease Mother mother, uncle - Cancer Paternal Grandfather - Colon Cancer Maternal Grandmother - Diabetes Other uncle - Stroke Maternal Grandfather Social History: Tobacco Use: Never Alcohol Use: No ROS: Constitutional: negative for chills and fevers HEENT: no blurry vision or eye redness Respiratory: negative for hemoptysis and shortness of breath Cardiovascular: negative for dyspnea and syncope Gastrointestinal: negative for jaundice, nausea and vomiting Genitourinary:negative for dysuria and hematuria Hematologic/lymphatic: negative for bleeding Integumentary: no new bruises or lesions Musculoskeletal:negative for muscle weakness Neurological: negative for coordination problems and seizures All other systems negative PHYSICAL EXAM: VITALS: 03/27/18 2342 03/28/18 0542 03/28/18 0639 03/28/18 0749 BP: 98/50 98/83 103/59 Pulse: 112 108 98 Resp: 20 20 Temp: 36.5 ?C (97.7 ?F) 36.7 ?C (98.1 ?F) 36.8 ?C (98.2 ?F) TempSrc: Oral Oral Oral SpO2: 97% 95% 91% Weight: 63.5 kg (140 lb) Height: General: Alert, in no acute distress Head: Normocephalic, atraumatic Neck: supple, trachea is midline, no obvious masses Respiratory: normal effort, no audible wheezes Cardiovascular: irregular pulse and no cyanosis Musculoskeletal: moving all extremities, normal tone Skin: warm and dry Psych: normal mood and affect, oriented Abdomen: soft, non distended, non tender, no organomegaly, no hernias : No CVA tenderness DATA: LABS: BMP: . Glucose (mg/dL) Date Value 03/28/2018 83 Potassium (mEq/L) Date Value 03/28/2018 3.5 Sodium (mEq/L) Date Value 03/28/2018 139 Chloride (mEq/L) Date Value 03/28/2018 103 CO2 (mEq/L) Date Value 03/28/2018 30 Creatinine (mg/dL) Date Value 03/28/2018 0.95 BUN (mg/dL) Date Value 03/28/2018 16 Anion Gap (no units) Date Value 03/28/2018 10 Calcium (mg/dL) Date Value 03/28/2018 8.6 CBC: HGB (g/dL) Date Value 03/28/2018 14.2 Hematocrit (%) Date Value 03/28/2018 42.2 WBC (thou/cmm) Date Value 03/28/2018 10.05 Platelet Count (thou/cmm) Date Value 03/28/2018 284 Urinalysis: Specific [place], Ur Date Value Ref Range Status 03/27/2018 1.010 1.005 - 1.030 Final Glucose, Urine Date Value Ref Range Status 03/27/2018 NEGATIVE Negative mg/dL Final Bilirubin, Urine Date Value Ref Range Status 03/27/2018 NEGATIVE Negative Final Ketones, Urine Date Value Ref Range Status 03/27/2018 NEGATIVE Negative mg/dL Final Protein, Urine Date Value Ref Range Status 03/27/2018 NEGATIVE Negative mg/dL Final Urobilinogen, Urine Date Value Ref Range Status 03/27/2018 0.2 0.0 - 1.0 EU/dL Final Urine Culture: RADIOLOGY: CT A/P 03/27 IMPRESSION: 1. ?Mild/moderate left hydronephrosis with perinephric and periureteral fat stranding. No obstructing ureteral calculus or mass. ?The appearance may be secondary to a recently passed stone and given the degree of stranding around the left kidney, the possibility of forniceal rupture is considered. ?There are at least 4 small nonobstructing left renal calculi. ? 2. Small bilateral pleural effusions (right larger than left) with compressive atelectasis. ? 3. ?Normal appendix. Pancolonic diverticulosis without acute diverticulitis. IMPRESSION: 77 year old female with mild left hydro with perinephric stranding, left non-obstructing renal calculi - Slight leukocytosis at 10 - Cr wnl at 0.95 - UA negative PLAN: - No obvious obstruction on CT, UA (-), Cr wnl, findings could be from recently passed calculus vs intrarenal pelvis and old pyelonephritis - Will try conservative management for now - Pain/nausea control - Check PVR, bladder distended on CT - If patient has persistent pain or kidney function worsens may consider ureteral stent placement, will make NPO @ [facility] OR needed tomorrow - Outpatient follow up for renal calculi - Discussed with Dr. Frederick Thank you for allowing me to participate in the care of your patient Jake [facility] U[facility] PGY-2 [phone] Attending Note I evaluated the patient and personally participated in the rg components. I agree with the resident's findings and plan as documented and have discussed the case and management of the patient's care with the resident. Check PVR Asymptomatic at this time Signature: Scooter Frederick DO, MBA Date: 03/28/2018 Time: 10:56 AM HEMOGRAM/DIFF Collected: 03/28/2018 Status: F Source: [facility] 6:05 AM HEALTH SYSTEM REPOSITORY TYPE CODE TESTS RESULT OUT OF REFERENCE UNITS RANGE LAB WBC(LOINC) 3.98-10.04 thou/cmm WBC High 10.05 LAB RBC(LOINC) 3.93-5.22 mil/cmm RBC 4.63 LAB HGB(LOINC) 11.2-15.7 g/dL Hgb 14.2 LAB HCT(LOINC) 34.1-44.9 % Hct 42.2 LAB MCV(LOINC) 79.4-94.8 fl MCV 91.1 LAB MCH(LOINC) 25.6-32.2 pg MCH 30.7 LAB MCHC(LOINC 31.6-34.8 % ) MCHC 33.6 LAB RDW(LOINC) 11.7-14.4 % RDW 13.9 LAB RDWSD(LOIN 36.4-46.3 fl C) RDW SD 45.1 LAB PLT(LOINC) 182-369 thou/cmm Platelet 284 LAB MPV(LOINC) 9.4-12.3 fl MPV 9.5 LAB SEG(LOINC) % Seg Neutrophil 73.5 LAB IGRE(LOINC % ) Immature Grans 0.40 LAB LYMPH(LOIN % C) Lymphocyte 14.0 LAB MNO(LOINC) % Monocyte 9.6 LAB EOSIN(LOIN % C) Eosinophil 1.5 LAB BASO(LOINC % ) Basophil 1.0 LAB SEGN(LOINC 1.56-6.13 thou/cmm ) Abs. High Neut (ANC) 7.39 LAB IGAB(LOINC 0.00-0.05 thou/cmm ) Abs Immature Grans 0.04 LAB LYMN(LOINC 1.18-3.74 thou/cmm ) Abs. Lymph 1.41 LAB MONON(LOIN 0.27-0.70 thou/cmm C) Abs. High Morrill 0.96 LAB EOSN(LOINC 0.00-0.31 thou/cmm ) Abs. Eosin 0.15 LAB BASON(LOIN 0.01-0.08 thou/cmm C) Abs. High Baso 0.10 Performed By: #### CBCD1 #### [place] [id number] PROTIME Collected: 03/28/2018 Status: F Source: [facility] 6:05 AM HEALTH SYSTEM REPOSITORY TYPE CODE TESTS RESULT OUT OF REFERENCE UNITS RANGE LAB PTI(LOINC) 9.7-13.0 sec Prothrombin High Time 27.2 LAB INR(LOINC) 0.90-1.30 INR High 2.82 Result Comment: Note: Reference Range Change Vitamin K Antagonist (VKA) Therapeutic Range: INR 2 to 3 (Target INR of 2.5) Note: For patients treated with VKA drugs, such as warfarin, the [place] [employer] 2012 Guideline recommends a therapeutic INR range of 2 to 3 (target INR of 2.5). This recommendation includes high-risk patients with antiphospholipid syndrome with previous arterial or venous thromboembolism, current-generation mechanical or bioprosthetic aortic heart valve replacement. VKA Therapeutic Range for some Mechanical Valve Replacement: INR 2.5 to 3.5 (Target INR of 3) Note: Patients with mechanical aortic valve replacement and additional risk factors for thromboembolic events (atrial fibrillation, previous thromboembolism, LV dysfunction, hypercoagulable conditions) or an older generation mechanical AVR (i.e., ball in-Cage) or any mechanical MVR should have a INR therapeutic range of 2.5 to 3.5 target INR of 3). Rishabhtt GH, et al. Chest 2012; 141:7S-47S Marbella RA et al. [facility] 2017; 70: 252-289 Performed By: #### PT #### [place] [id number] COMPREHENSIVE PANEL Collected: 03/28/2018 Status: F Source: [facility] 6:05 HEALTH SYSTEM REPOSITORY TYPE CODE TESTS RESULT OUT OF REFERENCE UNITS RANGE LAB NA(LOINC) 136-145 mEq/L Sodium Blood 139 LAB K(LOINC) 3.5-5.1 mEq/L Potassium Blood 3.5 LAB CL(LOINC) 98-107 mEq/L Chloride Blood 103 LAB CO2(LOINC) 21-32 mEq/L CO2 Blood 30 LAB GLU(LOINC) 70-99 mg/dL Glucose Blood 83 LAB BUN(LOINC) 7-18 mg/dL BUN Blood 16 LAB CREA(LOINC 0.51-0.95 mg/dL ) Creatinine Blood 0.95 LAB CA(LOINC) 8.5-10.1 mg/dL Calcium Blood 8.6 LAB ALB(LOINC) 3.4-5.0 g/dL Low Albumin Blood 3.2 LAB TP(LOINC) 6.4-8.2 g/dL Total Protein 6.6 LAB AST(LOINC) 9-37 U/L AST-SGOT Blood 13 LAB ALT(LOINC) 12-78 U/L ALT-SGPT Blood 40 LAB ALKP(LOINC 46-116 U/L ) Alk Phosphatase 85 LAB BILIT(LOIN 0.2-1.0 mg/dL C) Total High Bilirubin 2.0 LAB ANGAP(LOIN 8-16 C) Anion Gap 10 Performed By: #### P14 #### [facility] [address] [id number] NURSING PROG Observed: 03/27/2018 Status: COMPLETED Source: [place] 4:15 PM CLINIC OTHER CAMPUS REPOSITORY HNO ID: [id number] Author: Diana (Rn) MARCELLA Shoemaker Service: Nursing Author Type: Registered Nurse Type: Nursing Progress Note Filed: 03/27/2018 5:06 PM Note Text: Nursing Progress Note Patient Name: Gloria Mathew Patient Location: [place] [address] [address]* Daily Note: 0900 Pt c/o headache and ABD pain, Dr. Phan placed orders for GI meds and Tylenol and an ABD CT scan. 1615 Pt. Afib RVR sustained HR 140s RN called Dr. Walton who placed order for 5mg IVP Lopressor. This note was completed by: Diana Shoemaker RN URINALYSIS, REFLEX Collected: 03/27/2018 Status: F Source: [facility] 2:40 PM HEALTH SYSTEM REPOSITORY TYPE CODE TESTS RESULT OUT OF REFERENCE UNITS RANGE LAB COLOR(LOIN C) Urine Color YELLOW LAB APPUR(LOIN C) Urine Appearance CLEAR LAB GLUUR(LOIN Negative mg/dL C) Glucose Urine NEGATIVE LAB KETON(LOIN Negative mg/dL C) Ketone Urine NEGATIVE LAB HGBUR(LOIN Negative C) Hemoglobin,Urine NEGATIVE LAB PROTU(LOIN Negative mg/dL C) Protein Urine NEGATIVE LAB NITR(LOINC Negative ) Nitrite reflex NEGATIVE LAB BILIU(LOIN Negative C) Bilirubin Urine NEGATIVE LAB SPG(LOINC) 1.005-1.030 Specific [place], Ur 1.010 LAB PHUR(LOINC 5.0-8.0 ) pH,Urine 5.0 LAB UROBI(LOIN 0.0-1.0 EU/dL C) Urobilinogen,Ur 0.2 LAB LEUKR(LOIN Negative C) Leukocyte NEGATIVE esterase LAB RBCU1(LOIN 0.0-5.0 /hpf C) RBC,Urine 1.2 LAB WBCR(LOINC 0.00-5.00 /hpf ) WBC, reflex 0.90 LAB EPIT1(LOIN 0.0-5.0 /hpf C) Ep Cells Urine 0.5 LAB BACT1(LOIN None C) Bacteria Urine NONE LAB HYCA1(LOIN 0.0-1.0 /lpf C) Hyaline Cast 0.4 LAB REFLX(LOIN C) Reflex Comment see below Result Comment: Reflex to culture is not indicated based on established laboratory criteria. Performed By: #### URIN #### [facility] [address] [address] [address] ABDOMEN AND PELVIS Observed: 03/27/2018 Status: F Source: [facility] W/O CONTRAST 2:40 PM HEALTH SYSTEM REPOSITORY Performed at [facility] APPROVED BY: ANDRES PATHAK MD EXAMINATION: CT ABDOMEN AND PELVIS WITHOUT IV CONTRAST CLINICAL HISTORY: Left flank pain. TECHNIQUE: Non-IV contrast imaging of the abdomen and pelvis was performed using standard technique, scanning from just above the dome of the diaphragm to the symphysis pubis. Unenhanced imaging is ortez ited for the evaluation of some intra-abdominal and pelvic pathology. MQ: [id number]_[id number] Contrast: None CT Dose-Length Product: 483.32 mGy*cm CT Dose Reduction Employed: Automated exposure control (AEC) was used. COMPARISON: Contrast-enhanced CT abdomen/pelvis 09/24/2017 RESULT: Abdomen / Pelvis: Liver: Unremarkable unenhanced liver. Biliary: S/p cholecystectomy. Spleen: No splenomegaly. Pancreas: Unremarkable. Adrenals: No mass. Kidneys: Bilateral peripelvic and cortical cysts are again noted. There are approximately 4 tiny nonobstructing calculi in the left kidney. There is mild/moderate left hydronephrosis with perinephric and periureteral fat stranding and thickening of the anterior pararenal fascia. No obstructing ureteral calculus or mass. The appearance may be secondary to a recently passed stone and given the degr ee of stranding around the left kidney, the possibility of forniceal rupture is considered. No right-sided hydronephrosis or hydroureter. GI Tract: No bowel dilation. Normal appendix. Pancolonic diverticulosis without findings to suggest acute appendicitis. Lymph Nodes: No lymphadenopathy. Mesentery/peritoneum: No ascites. Retroperitoneum: No mass. Vasculature: Arterial atherosclerotic disease without aneurysm. Pelvis: No mass or ascites. Urinary bladder is unremarkable. Uterus is absent. Bones/Soft Tissues: No acute abnormality. Lower thorax: Small bilateral pleural effusions (right larger than left) with compressive atelectasis. There is multichamber cardiac enlargement. IMPRESSION: 1. Mild/moderate left hydronephrosis with perinephric and periureteral fat stranding. No obstructing ureteral calculus or mass. The appearance may be secondary to a recently passed stone and given the degree of stranding around the left kidney, the possibility of forniceal rupture is considered. There are at least 4 small nonobstructing left renal calculi. 2. Small bilateral pleural effusions (right larger than left) with compressive atelectasis. 3. Normal appendix. Pancolonic diverticulosis without acute diverticulitis. PROGRESS Observed: 03/27/2018 Status: COMPLETED Source: [place] 12:30 PM CLINIC OTHER CAMPUS REPOSITORY HNO ID: [id number] Author: Oj Phan Service: Hospital Medicine Author Type: Physician Type: Progress Notes Filed: 03/27/2018 12:42 PM Note Text: DEPARTMENT OF HOSPITAL MEDICINE PROGRESS NOTE SERVICE DATE: 03/27/2018 SERVICE TIME: 12:30 PM Hospital Medicine/Primary Attending: Oj Phan MD NIGHT AND WEEKEND COVERAGE: After 7pm please page [phone] CHIEF COMPLAINT: a fib with rvr.. ICU transfer SUBJECTIVE: Reports pain in left flank>LUQ for the last day or two. Nausea. No change in BM. No dysuria or hematuria. No fever or chills. HR better. No dyspnea or chest pain. OBJECTIVE: PHYSICAL EXAM: BP 101/68 Pulse 109 Temp (Src) 98.4 (Temporal Artery) Resp 18 Ht 5' 2 (1.58m) Wt 142 lb 1.6 oz (64.5kg) SpO2 93% BMI 25.98 kg/(m2). GENERAL: Alert, no distress, cooperative, SKIN: Skin color, texture, turgor normal. No rashes or lesions. OROPHARYNX: Lips, mucosa, and tongue normal. Teeth and gums normal. Oropharynx normal. LUNGS: Lungs clear to auscultation, Air entry good, Unlabored breathing. CARDIAC: Normal S1 and S2; no rubs, or gallops, systolic murmur at mitral area ABDOMEN: Abdomen soft, mild tenderness over Left CVA, non- distended, BS normal EXTREMITIES: Normal, no deformities, edema, clubbing or skin discoloration. NEURO: Grossly normal cognition, motor function, and cranial nerves III-XII MEDICATIONS: Current hospital medications: dicyclomine 10 mg cap(s) (BENTYL) 10 mg ORAL TID PRN cholestyramine 4 g packet (QUESTRAN) 4 g ORAL DAILY [START ON 03/29/2018] NaCl 0.9% iv infusion 50 mL/hr INTRAVENOUS CONTINUOUS acetaminophen 325-650 mg tab(s) (TYLENOL) 325-650 mg ORAL q 6 H PRN digoxin 0.125 mg tab(s) (LANOXIN) 0.125 mg ORAL DAILY furosemide 40 mg tab(s) (LASIX) 40 mg ORAL DAILY gabapentin 200 mg cap(s) (NEURONTIN) 200 mg ORAL AT BEDTIME pramipexole 0.25 mg tab(s) (MIRAPEX) 0.25 mg ORAL AT BEDTIME metoprolol tartrate (short acting) 25 mg tab(s) (LOPRESSOR) 25 mg ORAL q 8 H atorvastatin 10 mg tab(s) (LIPITOR) 10 mg ORAL AT BEDTIME DATA: Diagnostic tests reviewed for today's visit: CBC, Coags, BMP, Mg, Phos Recent Labs 03/27/18 0330 03/26/18 1400 03/26/18 0845 03/26/18 0530 03/25/18 0535 03/24/18 1515 03/24/18 1440 WBC 11.60* -- -- 7.10 -- -- 6.5 HB 13.6 -- -- 12.5 -- -- 13.0 HCT 40.3 -- -- 36.5 -- -- 37.9 PLT 277 -- -- 254 -- -- 286 INR 3.03* -- 2.99* -- 3.95* -- >13.70* NA 138 -- -- 140 -- -- -- K 3.7 -- -- 3.4* -- -- -- CHLOR 106 -- -- 105 -- -- -- CO2 23 -- -- 25 -- -- -- BUN 19* -- -- 24* -- -- -- CREAT 0.86 -- -- 1.08* -- 1.0 -- GLUC 107* -- -- 90 -- -- -- CA 8.5 -- -- 8.2* -- 8.9 -- MG -- 1.6 -- -- -- -- -- Liver Function, Amylase, AND Lipase Cardiac Enzymes Heme: No results for input(s): RETICP, ABSRETIC, LD, JOHNIE, FE, TIBC, TRANSFERSAT in the last 24 hours. No results found for: UALBCR Assessment/Plan Patient Active Hospital Problem List: A-fib ([facility]) (03/24/2018) ASSESSMENT: 1. Left flank pain: d/d pyelonephritis/ urinary calculus/bowel related/ IBS related. S/p c scope in February,- some benign polyps otherwise negative per patient. 2. Paroxysmal A fib with RvR: HR better controlled with dig and metoprolol. Treatment with amiodarone- stopped. INR supratherapeutic. Coumadin on hold. Plan to start heparin gtt once INR<2 in anticipation of MEERA/ RHC on Thursday. 3. Severe MS and MR: MEERA and R/L HC on Thursday. 4. IBS: 5. Remote hx of uterine cancer s/p hsyterectomy and chemo/ rad 30 years or so ago. PLAN: UA and Cx. CT a/p Continue rate controlling meds. Monitor INR. Start heparin gtt once INR<2 Dicyclomine as needed for abdominal pain/ IBS (may worsen tachycardia). VTE Prophylaxis: Patient is already anti-coagulated. Disposition: to be determined. Likely home Plan of care discussed with: Patient SIGNATURE: Oj Phan MD PATIENT NAME: Gloria Mathew DATE: March 27, 2018 TIME: 12:30 PM PAGER/CONTACT #: [phone] PROGRESS Observed: 03/27/2018 Status: COMPLETED Source: [place] 9:45 AM CLINIC OTHER CAMPUS REPOSITORY HNO ID: [id number] Author: Tucker Mohan Service: Cardiovascular Disease Author Type: Nurse Practitioner Type: Progress Notes Filed: 03/27/2018 10:25 AM Note Text: PROGRESS NOTE CARDIOLOGY SERVICE SERVICE DATE: 03/27/2018 SERVICE TIME: 0945 AM Subjective INTERIM HISTORY: f/u for valvular afib, severe MS and MR. INR 3.03 today. Daily INR. Plan for MEERA on Thursday +/- R/L heart cath depending on INR. Could be Thursday as well. Will need hep gtt once INR <2.0. Objective PHYSICAL EXAM: Body mass index is 25.99 kg/m?. O2 Therapy: Room Air No Data Recorded Patient Vitals for the past 24 hrs: BP Temp Temp src Pulse Resp SpO2 Weight 03/27/18 0751 106/59 36.6 ?C (97.9 ?F) Temporal Art 102 18 93 % - 03/27/18 0626 - - - - - - 64.5 kg (142 lb 1.6 oz) 03/27/18 0531 118/62 - - 114 - 95 % - 03/27/18 0257 104/64 36.7 ?C (98.1 ?F) Oral 108 18 97 % - 03/26/18 2338 92/58 37.2 ?C (99 ?F) Oral 101 19 96 % - 03/26/18 2135 101/55 36.7 ?C (98.1 ?F) Oral 96 20 94 % - 03/26/18 2000 98/59 - - 101 26 96 % - 03/26/18 1900 99/73 36.8 ?C (98.2 ?F) Temporal Art 99 25 96 % - 03/26/18 1800 106/69 - - 95 21 96 % - 03/26/18 1700 110/60 - - 94 21 96 % - 03/26/18 1600 104/56 - - 108 21 95 % - 03/26/18 1500 90/55 36.6 ?C (97.9 ?F) - 113 24 95 % - 03/26/18 1400 97/62 - - 114 24 96 % - 03/26/18 1300 134/109 - - 117 26 95 % - 03/26/18 1200 114/67 - - 103 27 95 % - 03/26/18 1100 105/70 36.2 ?C (97.2 ?F) - 86 19 96 % - 03/26/18 1030 93/57 - - 87 19 92 % - Pleasant, comfortable, not in acute distress. Awake, alert, oriented times 3. Moves all extremities. SKIN: No rash or lumps. HEENT: Normocephalic, face symmetrical. NECK: Supple, no JVD, no carotid bruit, no thyromegaly. LUNGS: Clear to auscultation bilaterally. CARDIAC: irregular, S1 and S2, no S3 or S4, no additional heart sounds or murmurs. ABDOMEN: Soft, nontender, bowel sounds present. EXTREMITIES: No edema. PULSES: Peripheral pulses present. MEDICATIONS: Current hospital medications: dicyclomine 10 mg cap(s) (BENTYL) 10 mg ORAL TID PRN cholestyramine 4 g packet (QUESTRAN) 4 g ORAL DAILY digoxin 0.125 mg tab(s) (LANOXIN) 0.125 mg ORAL DAILY furosemide 40 mg tab(s) (LASIX) 40 mg ORAL DAILY gabapentin 200 mg cap(s) (NEURONTIN) 200 mg ORAL AT BEDTIME pramipexole 0.25 mg tab(s) (MIRAPEX) 0.25 mg ORAL AT BEDTIME metoprolol tartrate (short acting) 25 mg tab(s) (LOPRESSOR) 25 mg ORAL q 8 H atorvastatin 10 mg tab(s) (LIPITOR) 10 mg ORAL AT BEDTIME DATA: Diagnostic tests reviewed for today's visit: Most recent labs and imaging results. Past 72 Hour Labs: Recent Labs 03/27/18 0330 03/26/18 1400 03/24/18 1440 TROPI -- -- -- 0.00 WBC 11.60* -- < > 6.5 RBC 4.48 -- < > 4.15 HB 13.6 -- < > 13.0 HCT 40.3 -- < > 37.9 MCV 90.0 -- < > 91.3 MCH 30.4 -- < > 31.3 MCHC 33.7 -- < > 34.3 PLT 277 -- < > 286 MPV 9.5 -- < > 10.3 GLUC 107* -- < > -- BUN 19* -- < > -- CREAT 0.86 -- < > -- NA 138 -- < > -- K 3.7 -- < > -- CHLOR 106 -- < > -- CO2 23 -- < > -- CA 8.5 -- < > -- PTSEC 29.0* -- < > >120.0* INR 3.03* -- < > >13.70* MG -- 1.6 -- -- < > = values in this interval not displayed. Last Lab Drawn: Triglyceride 103 03/26/2018 HDL Cholesterol 25 03/26/2018 LDL Calculated 48 03/26/2018 Cholesterol, Total 94 03/26/2018 Assessment/Plan Please see previous note for more detail... Paroxysmal afib with rvr-rates mostly controlled 90-110 on metoprolol 25 tid and dig 125 daily. S/p amio gtt. Asymptomatic with rates. Holding coumadin for planned R/L heart cath for severe mitral disease. Once INR <2.0 should start hep gtt. Had been planning on outpt MEERA and R/L cath, but had supratherpeutic inr. WIll shoot for either Thursday or Thursday depending on INR. Supratherapeutic INR-s/p vit k in ER. Trending down. 3.03 today. Continue to hold coumadin Severe MS and MR- see above. MEERA and r/l heart cath. MEERA on Thursday +/- cath depending on INR. Make NPO at [facility] in case INR low enough. C/w PO lasix for now. TRISH-per primary Will follow. D/w Dr. Walton SIGNATURE: Tucker Mohan APRN.CNP PATIENT NAME: Gloria Mathew DATE: March 27, 2018 TIME: 10:17 AM PAGER/CONTACT #: [phone] HEMOGRAM Collected: 03/27/2018 Status: F Source: [facility] 3:30 AM HEALTH SYSTEM REPOSITORY TYPE CODE TESTS RESULT OUT OF REFERENCE UNITS RANGE LAB WBC(LOINC) 3.98-10.04 thou/cmm High WBC 11.60 LAB RBC(LOINC) 3.93-5.22 mil/cmm RBC 4.48 LAB HGB(LOINC) 11.2-15.7 g/dL Hgb 13.6 LAB HCT(LOINC) 34.1-44.9 % Hct 40.3 LAB MCV(LOINC) 79.4-94.8 fl MCV 90.0 LAB MCH(LOINC) 25.6-32.2 pg MCH 30.4 LAB MCHC(LOINC) 31.6-34.8 % MCHC 33.7 LAB RDW(LOINC) 11.7-14.4 % RDW 13.7 LAB RDWSD(LOINC 36.4-46.3 fl ) RDW SD 43.2 LAB PLT(LOINC) 182-369 thou/cmm Platelet 277 LAB MPV(LOINC) 9.4-12.3 fl MPV 9.5 Performed By: #### CBC1 #### [address] [address] PROTIME Collected: 03/27/2018 Status: F Source: [facility] 3:30 AM HEALTH SYSTEM REPOSITORY TYPE CODE TESTS RESULT OUT OF REFERENCE UNITS RANGE LAB PTI(LOINC) 9.7-13.0 sec Prothrombin High Time 29.0 LAB INR(LOINC) 0.90-1.30 INR High 3.03 Result Comment: Note: Reference Range Change Vitamin K Antagonist (VKA) Therapeutic Range: INR 2 to 3 (Target INR of 2.5) Note: For patients treated with VKA drugs, such as warfarin, the [place] [employer] 2012 Guideline recommends a therapeutic INR range of 2 to 3 (target INR of 2.5). This recommendation includes high-risk patients with antiphospholipid syndrome with previous arterial or venous thromboembolism, current-generation mechanical or bioprosthetic aortic heart valve replacement. VKA Therapeutic Range for some Mechanical Valve Replacement: INR 2.5 to 3.5 (Target INR of 3) Note: Patients with mechanical aortic valve replacement and additional risk factors for thromboembolic events (atrial fibrillation, previous thromboembolism, LV dysfunction, hypercoagulable conditions) or an older generation mechanical AVR (i.e., ball in-Cage) or any mechanical MVR should have a INR therapeutic range of 2.5 to 3.5 target INR of 3). Nathanael GH, et al. Chest 2012; 141:7S-47S Marbella RA, et al. JAC 2017; 70: 252-289 Performed By: #### PT #### [facility] [address] [place], [place] [address] BASIC PANEL Collected: 03/27/2018 Status: F Source: [facility] 3:30 AM HEALTH SYSTEM REPOSITORY TYPE CODE TESTS RESULT OUT OF REFERENCE UNITS RANGE LAB NA(LOINC) 136-145 mEq/L Sodium Blood 138 LAB K(LOINC) 3.5-5.1 mEq/L Potassium Blood 3.7 LAB CL(LOINC) 98-107 mEq/L Chloride Blood 106 LAB CO2(LOINC) 21-32 mEq/L CO2 Blood 23 LAB GLU(LOINC) 70-99 mg/dL Glucose High Blood 107 LAB BUN(LOINC) 7-18 mg/dL BUN High Blood 19 LAB CREA(LOINC 0.51-0.95 mg/dL ) Creatinine Blood 0.86 LAB CA(LOINC) 8.5-10.1 mg/dL Calcium Blood 8.5 LAB ANGAP(LOIN 8-16 C) Anion Gap 13 Performed By: #### P8 #### [place] [address] PLAN OF CARE Observed: 03/26/2018 Status: COMPLETED Source: [place] 2:13 PM CLINIC OTHER CAMPUS REPOSITORY HNO ID: [id number] Author: Melly Quinn (Architectural Design Professor) Service: Pharmacy Author Type: Pharmacist Type: Plan of Care Filed: 03/26/2018 2:21 PM Note Text: MEDICATION HISTORY AND MEDICATION RECONCILIATION Patient Name:.Gloria Mathew : 1940 Source of history:Patient: Reliability of source: Appears reliable, clearly identified: Medication name, Medication dose, Medication frequency and Timing of last dose and Pharmacy records: [email or web address] , [facility] [phone] Medication Nonadherence Identified: Patient unsure how to appropriately time her cholestyramine to avoid interaction with her other medications. The above information represents the best possible medication history: Yes Reconciliation completed? Yes Discussed with LIP, plans to add gabapentin 200 mg HS and pramipexole 0.25 mg HS and discontinue ropinirole 2 mg based on updated medication history Additional comments: Medications Removed from [facility] Med List: vitamin B12 (duplicate), ropinirole (no longer taking) Medications Modified on [facility] Med List: Alendronate: 1 tablet every Thursday, proair: 2 puffs Q6 PRN SOB Other: -Patient does not regularly take supplements including biotin, cholecalciferol, vitamin B12. -Patient has been using cholestyramine intermittently due to changes in her medications leaving her unsure when to best time the cholestyramine to avoid interactions with her other medications. Last dose ~1 week ago. -Patient was using warfarin 2.5 mg daily prior to admission, which resulted in supratherapeutic INR. Plan per [facility] to reduce warfarin to 0.5 mg daily following MVR. Allergies: ALLERGIES No Known Allergies Preferred Pharmacy: [facility] [phone] and [email or web address] Current [facility] Medications: Prior to Admission medications as of 03/26/18 1412 Medication Sig Last Dose Taking Cyanocobalamin (VITAMIN B-12) 1,000 mcg subl Dissolve 1 tablet under the tongue once daily. Yes warfarin (COUMADIN) 1 mg tablet Take 0.5mg (1/2 tablet) daily. calcium carbonate (CALTRATE) 600 mg calcium (1,500 mg) tab Take 600 mg by mouth once daily. metoprolol tartrate, short acting, (LOPRESSOR) 25 mg tablet Take 25 mg by mouth twice daily. pramipexole (MIRAPEX) 0.25 mg tablet Take 0.25 mg by mouth daily at bedtime. warfarin (COUMADIN) 5 mg tablet TAKE 1 TABLET BY MOUTH EVERY DAY Patient taking differently: Take 2.5mg (1/2 tablet) daily PROAIR HFA 90 mcg/actuation inhaler 2 Puffs every 6 hours as needed for Wheezing/Shortness of Breath. cholestyramine (QUESTRAN) 4 gram packet Take 1 Packet by mouth once daily. gabapentin (NEURONTIN) 100 mg capsule Take 200 mg by mouth daily at bedtime. simvastatin (ZOCOR) 10 mg tablet Take 10 mg by mouth daily at bedtime. alendronate (FOSAMAX) 70 mg tablet Take 70 mg by mouth every Thursday. Biotin-Silicon Sotf-F-Iywwbjbk 5,000 mcg-100 mg- 50 mg tab Take 1 tablet by mouth once daily. multivitamin tablet Take 1 tablet by mouth once daily. Cholecalciferol, Vitamin D3, 1,000 unit cap Take 1,000 Units by mouth once daily. MELLY QUINN, PROPERTY MANAGEMENT COORDINATOR March 26, 2018 2:13 PM MAGNESIUM BLOOD Collected: 03/26/2018 Status: F Source: [facility] 2:00 PM HEALTH SYSTEM REPOSITORY TYPE CODE TESTS RESULT OUT OF REFERENCE UNITS RANGE LAB MAG(LOINC) 1.6-2.6 mg/dL Magnesium Blood 1.6 Performed By: #### MAG #### [facility] [address] [address] CASE MGT INIT Observed: 03/26/2018 Status: COMPLETED Source: [facility] 12:01 PM CLINIC OTHER CAMPUS REPOSITORY HNO ID: [id number] Author: Fiona (Rn) MARCELLA Adams Service: Care Management Author Type: Registered Nurse Type: Care Mgt Initial Assessment Filed: 03/26/2018 12:06 PM Note Text: CARE MANAGEMENT: ASSESSMENT AND DISCHARGE PLAN SERVICE DATE: 03/26/2018 SERVICE TIME: 12:02 PM PRIMARY CARE PHYSICIAN: Loree Small MD ADMISSION STATUS: Inpatient Needs Prior to Discharge: To Be Determined 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 No Advance Directive: Current Advance Directive: None Director Of [facility] Attempted to Assist with AD Completion: Yes Action: Education Provided;Other: See Comment (information materials provided) Health Literacy: 1. How often do you need to have someone help you when you read instructions, pamphlets, or other written material from your doctor or pharmacy? Never - 1 2. How confident are you filling out medical forms by yourself? Extremely - 1 If Patient scores > 3 on either question, the following interventions were put into place: Patient did not score > 3 FUNCTIONAL AND COGNITIVE/BEHAVIORAL PRIOR TO ADMISSION: Baseline Mental Status: Alert AND Oriented, Person, Place , Time and Situation Functional Status: Independent Does Patient Currently Receive Any Community Services or Home Care? None Equipment Prior to Admission: Bi-level Positive Airway Pressure/Continuous Positive Airway Pressure Has the Patient Been in a Senior Living Facility in the Past 30 days? No SOCIAL: Living Arrangement: Home Lives With: Spouse Financial Resources: Retired Primary Contact: Extended Emergency Contact Information Primary Emergency Contact: Isabel Mathew Address: [address] [place] [id number] [facility] Relation: Spouse Supportive: Yes Other Important Patient Contacts: None Caregiver Assessment: Caregiver is ready, willing and able to meet the patient's needs as recommended by the inter-professional team? Yes Patient's transition needs and plan for meeting these needs: tbd Does the patient have an acute stroke diagnosis, or has the patient had a stroke during this admission? No Medication Adherence: I am convinced of the importance of my prescription medication: Agree completely - 0 I worry that my prescription medication will do more harm than good to me Disagree completely - 0 I feel financially burdened by my iyv-ee-qodjpj expenses for my prescription medication: Disagree mostly -0 Patient is categorized as low risk < 2 Are you interested in bedside delivery of your medications? No Food Concerns: In the Last Month, Have You had Trouble Getting Food? No trouble getting food During the Last Month, Have You Worried Whether Your Food Would Run Out Before You Had Enough Money to Buy More? No Is the Patient Psychosocially Complex? No ASSESSMENT AND PLAN: Medical Needs: 2 or more chronic diseases Psychosocial Needs: None FREEDOM OF CHOICE EXPLAINED: N/A POTENTIAL TRANSITION PLANS Home Met with pt at bedside and explain CM role. 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 Plan is to return home at disch. Previously scheduled for valve surgery 03/31. Will cont to follow for transitional care needs. SIGNATURE: Fiona Adams RN PATIENT NAME: Gloria Mathew DATE: March 26, 2018 TIME: 12:01 PM PAGER/CONTACT #: [phone] PROTIME Collected: 03/26/2018 Status: F Source: [facility] 8:45 AM HEALTH SYSTEM REPOSITORY TYPE CODE TESTS RESULT OUT OF REFERENCE UNITS RANGE LAB PTI(LOINC) 9.7-13.0 sec Prothrombin High Time 28.7 LAB INR(LOINC) 0.90-1.30 INR High 2.99 Result Comment: Note: Reference Range Change Vitamin K Antagonist (VKA) Therapeutic Range: INR 2 to 3 (Target INR of 2.5) Note: For patients treated with VKA drugs, such as warfarin, the [place] [employer] 2012 Guideline recommends a therapeutic INR range of 2 to 3 (target INR of 2.5). This recommendation includes high-risk patients with antiphospholipid syndrome with previous arterial or venous thromboembolism, current-generation mechanical or bioprosthetic aortic heart valve replacement. VKA Therapeutic Range for some Mechanical Valve Replacement: INR 2.5 to 3.5 (Target INR of 3) Note: Patients with mechanical aortic valve replacement and additional risk factors for thromboembolic events (atrial fibrillation, previous thromboembolism, LV dysfunction, hypercoagulable conditions) or an older generation mechanical AVR (i.e., ball in-Cage) or any mechanical MVR should have a INR therapeutic range of 2.5 to 3.5 target INR of 3). Nathanael PITTS, et al. Chest 2012; 141:7S-47S Marbella LAURA et al. [facility] 2017; 70: 252-289 Performed By: #### PT #### [facility] [address] [place], [place] [address] PROGRESS Observed: 03/26/2018 Status: COMPLETED Source: [place] 8:28 AM CLINIC OTHER CAMPUS REPOSITORY O ID: [id number] Author: Bruno Walton Service: Cardiovascular Disease Author Type: Physician Type: Progress Notes Filed: 03/26/2018 10:21 AM Note Text: CVICU PROGRESS NOTE SERVICE DATE: 03/26/2018 SERVICE TIME: 8:29 AM Admission Date: 03/24/2018 Subjective HPI: This is a 77 year old with past medical history of mitral stenosis, severe MR, h/o rheumatic fever 60 years ago, atrial fibrillation presented to the ER with complains of palpitations. She was recently diagnosed with Afib on 03/13/18 and was started on metoprolol 12.5mg BID and coumadin 5 mg. Patient did not have control in her HR after which her metoprolol was increased to 25 bid on 03/19. She also follows up at coumadin clinic and her warfarin dose was decreased to 2.5 mg due to supra therapeutic INR. Patient follows with Dr. Perez and was scheduled for a left and right heart cath on 03/31 and mitral valve replacement surgery. In the ED she was found to have Afib w RVR in 160s. She was given lopressor 2.5mg twice with some improvement and then loaded with digoxin. Patient also found to have INR of 13.7 and reversed with vit K. In CVICU she was started on an amiodarone drip. She was also given 1x lasix for acute hypoxic resp failure with evidence of pulmonary edema. Patient remains in Afib, rate controlled in the 80s. INR 2.99. Patient seen resting in bed comfortable, denied any problems overnight. State her breathing is improved from yesterday. Denied any chest pain or tightness, lightheadedness, headache, blurred vision, shortness of breath or cough. Objective VITAL SIGNS (last 24hrs min/max): Temp Av.7 ?C (98 ?F) Min: 36.6 ?C (97.9 ?F) Max: 36.7 ?C (98.1 ?F) Pulse Av.8 Min: 111 Max: 146 No Data Recorded Cuff BP Min: 95/78 Max: 133/83 Pain Score: 0/10 NET FLUID BALANCE Intake/Output Summary (Last 24 hours) at 03/26/18 0834 Last data filed at 03/26/18 0523 Gross per 24 hour Intake 1134.8 ml Output 2925 ml Net -1790.2 ml MEDICATIONS Current Facility-Administered Medications: metoprolol tartrate (short acting) 25 mg tab(s) (LOPRESSOR) 25 mg ORAL q 8 H rOPINIRole 2 mg tab(s) (REQUIP) 2 mg ORAL AT BEDTIME potassium chloride 80-120 mEq oral liquid 80-120 mEq ORAL/FEEDING TUBE PRN potassium chloride iv piggyback 20 mEq/100 mL 20 mEq INTRAVENOUS PRN magnesium sulfate in water 2 g in sterile water 50 ml 2 g INTRAVENOUS PRN sodium glycerophosphate 45 mmol in NaCl 0.9% 250 mL (GLYCOPHOS) 45 mmol INTRAVENOUS PRN calcium gluconate 4 g in NaCl 0.9% 250 mL 4 g INTRAVENOUS PRN perflutren lipid microspheres 1.1 mg/mL 1.3 mL injection (DEFINITY) 1.3 mL INTRAVENOUS DIRECTED PRN amiodarone 360 mg in D5W 200 mL (NEXTERONE) 0.5 mg/min INTRAVENOUS CONTINUOUS atorvastatin 10 mg tab(s) (LIPITOR) 10 mg ORAL AT BEDTIME INDWELLING CATHETERS: Lines, Drains, and Airways Line Peripheral 03/24/18 1454 Left Antecubital 20 Gauge 1 day Peripheral 03/24/18 1901 Assessment Short Right Antecubital 20 Gauge 1 day PHYSICAL EXAM: Physical exam performed HEENT: Oral Mucosa: Moist mucous membranes Feeding Tube: No Eyes: PERRLA Neck: No JVD; No adenopathy Cardiovascular: Irregular rhythm, systolic click and murmur best heard over lower left sternal boarder. Respiratory: CTAB, breathing unlabored, speaking full clear sentences. On RA No Data Recorded Abdomen: Soft, Nontender and Positive bowel sounds Extremities: Edema- No Peripheral Pulses- Present all extremities Capillary Refill- less than 3 seconds Skin: Abnormalities- No Breakdown- No Neurologic: Awake, oriented, Follows commands and Moving all extremities DATA: Diagnostic tests reviewed for today's visit: Most recent labs and imaging results. LABS: CBC, Coags, BMP, Mg, Phos Recent Labs 03/26/18 0530 03/25/18 0535 03/24/18 1515 03/24/18 1440 03/24/18 1115 WBC 7.10 -- -- 6.5 6.75 HB 12.5 -- -- 13.0 12.2 HCT 36.5 -- -- 37.9 38.0 PLT 254 -- -- 286 268 INR -- 3.95* -- >13.70* >8.00* NA 140 -- -- -- 142 K 3.4* -- -- -- 4.3 CHLOR 105 -- -- -- 111* CO2 25 -- -- -- 23 BUN 24* -- -- -- 28* CREAT 1.08* -- 1.0 -- 0.99* GLUC 90 -- -- -- 118* CA 8.2* -- 8.9 -- 8.5 INR: 2.99 Cardiac Enzymes CULTURES: N/A CXR FINDINGS: ? Small bilateral pleural effusions with mild coexisting bibasilar atelectasis and/or infiltrate. ? TTE(06/04/2017): Moderate to severe mitral stenosis 2-3+ MR Peak and mean gradients are 30 and 10 respectively. LVEF 55-6-% Assessment/Plan PROBLEMS: Paroxysmal Afib with RVR: - HR controlled in 80s - D/c amiodarone drip. - Metoprolol 25mg TID - Start Digoxin 125mcg daily - Was on coumadin for valvular Afib but currently on hold due to supra therapeutic INR. - Hgb stable - Start heparin gtt when INR <2 - MEERA, LHC and RHC on Thursday ? Acute hypoxic respiratory failure: Resolved - Secondary to severe MR: - Breathing improved, on RA - TTE - Was scheduled for LHC RHC MEERA for 03/31 ? Supra therapeutic INR: - INR 2.99 - S/P vit K in the ED. - Will check daily INRs. - Once therapeutic with place on heparin drip for Afib before undergoes surgery. ? Severe mitral stenosis and regurgitation (Rheumatic): - Previous TTE on 06/04/17 with findings as above. - MEERA on Thursday. - Lasix 40mg PO daily - Will need surgery for mitral valve replacement. Obstructive sleep apnea - Continue home CPAP Medication and Non-Pharmacologic VTE Prophylaxis/Anticoagulants 03/25/18 0815 activity - mobilize patient ([place]) 03/24/18 2100 vte pharmacologic prophylaxis contraindicated ([place]) 03/24/182099 pneumatic compression stockings ([place]) VTE Prophylaxis: Contraindicated supratherapeutic INR SIGNATURE: Reg Byrd DO PATIENT NAME: Gloria Mathew DATE: March 26, 2018 TIME: 8:28 AM PAGER/CONTACT #: [phone] I personally saw and examined the patient. I reviewed the resident's note. I agree with the resident's assessment and plan unless otherwise noted. Plan: Stop amiodarone gtt Start daily digoxin 125 mcg daily and continue metoprolol 25 TID. HR <110 is acceptable Monitor INR, and if < 2, will start hep gtt There was a plan for outpatient MEERA/LHC/RHC for next week in preparation for mitral valve surgery, will plan for Thursday Switch to PO lasix 40 mg daily Transfer to cardiac tele later today Bruno Walton MD, [facility] 10:20 AM HEMOGRAM Collected: 03/26/2018 Status: F Source: [facility] 5:30 AM HEALTH SYSTEM REPOSITORY TYPE CODE TESTS RESULT OUT OF REFERENCE UNITS RANGE LAB WBC(LOINC) 3.98-10.04 thou/cmm WBC 7.10 LAB RBC(LOINC) 3.93-5.22 mil/cmm RBC 4.04 LAB HGB(LOINC) 11.2-15.7 g/dL Hgb 12.5 LAB HCT(LOINC) 34.1-44.9 % Hct 36.5 LAB MCV(LOINC) 79.4-94.8 fl MCV 90.3 LAB MCH(LOINC) 25.6-32.2 pg MCH 30.9 LAB MCHC(LOINC) 31.6-34.8 % MCHC 34.2 LAB RDW(LOINC) 11.7-14.4 % RDW 13.3 LAB RDWSD(LOINC 36.4-46.3 fl ) RDW SD 42.9 LAB PLT(LOINC) 182-369 thou/cmm Platelet 254 LAB MPV(LOINC) 9.4-12.3 fl MPV 9.7 Performed By: #### CBC1 #### [facility] [address] [id number] BASIC PANEL Collected: 03/26/2018 Status: F Source: [facility] 5:30 AM HEALTH SYSTEM REPOSITORY TYPE CODE TESTS RESULT OUT OF REFERENCE UNITS RANGE LAB NA(LOINC) 136-145 mEq/L Sodium Blood 140 LAB K(LOINC) 3.5-5.1 mEq/L Low Potassium Blood 3.4 LAB CL(LOINC) 98-107 mEq/L Chloride Blood 105 LAB CO2(LOINC) 21-32 mEq/L CO2 Blood 25 LAB GLU(LOINC) 70-99 mg/dL Glucose Blood 90 LAB BUN(LOINC) 7-18 mg/dL BUN High Blood 24 LAB CREA(LOINC 0.51-0.95 mg/dL ) High Creatinine Blood 1.08 LAB CA(LOINC) 8.5-10.1 mg/dL Low Calcium Blood 8.2 LAB ANGAP(LOIN 8-16 C) Anion Gap 13 Performed By: #### P8 #### [facility] [address] [id number] LIPID PROFILE Collected: 03/26/2018 Status: F Source: [facility] 5:30 HEALTH SYSTEM REPOSITORY TYPE CODE TESTS RESULT OUT OF REFERENCE UNITS RANGE LAB CHOL(LOINC 0-199 mg/dL ) Cholesterol Blood 94 Result Comment: <200 Desirable 200-240 Borderline >240 High LAB TRIG(LOINC) 0-149 mg/dL Triglyceride Blood 103 Result Comment: < 200 Desirable Result invalid if not a fasting specimen. LAB HDL2(LOINC) >40 mg/dL HDL Cholesterol 25 LAB CHHDL(LOINC) 1.8-5.3 CHOL/HDL 3.8 LAB LDL(LOINC) mg/dL LDL (Calculated) 48 Result Comment: No CAD and with fewer than 2 CAD risk factors <160 mg/dL No CAD but with 2 or more CAD risk factors <130 mg/dL Definite CAD or other atherosclerotic disease <100 mg/dL LAB VLDL(LOINC) <50 Desired mg/dL VLDL Cholesterol 21 LAB LDHDL(LOINC) 0.6-3.6 LDL/HDL 1.9 Result Comment: LDL,VLDL,LDL/HDL, Invalid if Triglyceride >400 Performed By: #### LIPD2 #### [facility] [address] [place] [id number] HGB A1C Collected: 03/25/2018 Status: F Source: [facility] 10:35 AM HEALTH SYSTEM REPOSITORY TYPE CODE TESTS RESULT OUT OF RANGE REFERENCE UNITS LAB A1C5(LOINC) 4.2-6.3 % Hgb A1c 5.2 Result Comment: Method is National Glycohemoglobin Standardization Program (NGSP) compliant. LAB ESAVG(LOINC) mg/dl Est. Avg Glucose 103 Performed By: #### HA1C #### [facility] [address] [id number] PROGRESS Observed: 03/25/2018 Status: COMPLETED Source: [place] 8:42 AM CLINIC OTHER CAMPUS REPOSITORY HNO ID: [id number] Author: Bruno Walton Service: Cardiovascular Disease Author Type: Physician Type: Progress Notes Filed: 03/25/2018 10:52 AM Note Text: CVICU PROGRESS NOTE SERVICE DATE: 03/25/2018 SERVICE TIME: 8:42 AM Admission Date: 03/24/2018 Subjective HPI: This is a 77 year old with past medical history of mitral stenosis, severe MR, h/o rheumatic fever 60 years ago, atrial fibrillation presented to the ER with complains of palpitations. She was recently diagnosed with Afib on 03/13/18 and was started on metoprolol 12.5mg BID and coumadin 5 mg. Patient did not have control in her HR after which her metoprolol was increased to 25 bid on 03/19. She also follows up at coumadin clinic and her warfarin dose was decreased to 2.5 mg due to supra therapeutic INR. Patient follows with Dr. Perez and was scheduled for a left and right heart cath on 03/31 and mitral valve replacement surgery. In the ED she was found to have Afib w RVR in 160s. She was given lopressor 2.5mg twice with some improvement and then loaded with digoxin. Patient also found to have INR of 13.7 and reversed with vit K. In CVICU she was started on an amiodarone drip. She was also given 1x lasix for acute hypoxic resp failure with evidence of pulmonary edema. Today her INR has improved to 3.95, remains tachycardic in 120s. Currently denies any chest pain, pressure or tightness, no shortness of breath or cough, no headache, lightheadedness or blurred vision. Objective VITAL SIGNS (last 24hrs min/max): Temp Av.7 ?C (98 ?F) Min: 36.6 ?C (97.9 ?F) Max: 36.7 ?C (98.1 ?F) Pulse Av.8 Min: 111 Max: 146 No Data Recorded Cuff BP Min: 95/78 Max: 133/83 Pain Score: 0/10 NET FLUID BALANCE Intake/Output Summary (Last 24 hours) at 03/25/18 1009 Last data filed at 03/25/18 0800 Gross per 24 hour Intake 357.6 ml Output 1875 ml Net -1517.4 ml MEDICATIONS Current Facility-Administered Medications: furosemide 40 mg injection (LASIX) 40 mg INTRAVENOUS ONCE digoxin 250 mcg injection (LANOXIN) 250 mcg INTRAVENOUS q 6 H metoprolol tartrate (short acting) 25 mg tab(s) (LOPRESSOR) 25 mg ORAL q 8 H rOPINIRole 2 mg tab(s) (REQUIP) 2 mg ORAL AT BEDTIME potassium chloride 80-120 mEq oral liquid 80-120 mEq ORAL/FEEDING TUBE PRN potassium chloride iv piggyback 20 mEq/100 mL 20 mEq INTRAVENOUS PRN magnesium sulfate in water 2 g in sterile water 50 ml 2 g INTRAVENOUS PRN sodium glycerophosphate 45 mmol in NaCl 0.9% 250 mL (GLYCOPHOS) 45 mmol INTRAVENOUS PRN calcium gluconate 4 g in NaCl 0.9% 250 mL 4 g INTRAVENOUS PRN perflutren lipid microspheres 1.1 mg/mL 1.3 mL injection (DEFINITY) 1.3 mL INTRAVENOUS DIRECTED PRN amiodarone 360 mg in D5W 200 mL (NEXTERONE) 0.5 mg/min INTRAVENOUS CONTINUOUS atorvastatin 10 mg tab(s) (LIPITOR) 10 mg ORAL AT BEDTIME INDWELLING CATHETERS: Lines, Drains, and Airways Line Peripheral 03/24/18 1454 Left Antecubital 20 Gauge less than 1 day Peripheral 03/24/18 1901 Assessment Short Right Antecubital 20 Gauge less than 1 day PHYSICAL EXAM: Physical exam performed HEENT: Oral Mucosa: Moist mucous membranes Feeding Tube: No Eyes: PERRLA Neck: +JVD; No adenopathy Cardiovascular: Irregular rhythm, systolic click and murmur best heard over lower left sternal boarder. Respiratory: Bilateral crackles in lower lung zones, breathing unlabored, speaking full clear sentences. Wearing home CPAP overnight No Data Recorded Abdomen: Soft, Nontender and Positive bowel sounds Extremities: Edema- No Peripheral Pulses- Present all extremities Capillary Refill- less than 3 seconds Skin: Abnormalities- No Breakdown- No Neurologic: Awake, oriented, Follows commands and Moving all extremities DATA: Diagnostic tests reviewed for today's visit: Most recent labs and imaging results. LABS: CBC, Coags, BMP, Mg, Phos Recent Labs 03/25/18 0535 03/24/18 1515 03/24/18 1440 03/24/18 1115 WBC -- -- 6.5 6.75 HB -- -- 13.0 12.2 HCT -- -- 37.9 38.0 PLT -- -- 286 268 INR 3.95* -- >13.70* >8.00* NA -- -- -- 142 K -- -- -- 4.3 CHLOR -- -- -- 111* CO2 -- -- -- 23 BUN -- -- -- 28* CREAT -- 1.0 -- 0.99* GLUC -- -- -- 118* CA -- 8.9 -- 8.5 Cardiac Enzymes CULTURES: N/A CXR FINDINGS: ? Small bilateral pleural effusions with mild coexisting bibasilar atelectasis and/or infiltrate. ? TTE(06/04/2017): Moderate to severe mitral stenosis 2-3+ MR Peak and mean gradients are 30 and 10 respectively. LVEF 55-6-% Assessment/Plan PROBLEMS: Paroxysmal Afib with RVR: - HR uncontrolled currently in 120s. - C/w amiodarone drip. - Complete digoxin load - Metoprolol 25mg TID - Will need cath once HR controlled. - Was on coumadin for valvular Afib but currently on hold due to supra therapeutic INR. - TTE ? Acute hypoxic respiratory failure: - Secondary to severe MR: - CXR findings of pulmonary edema, on 3 L NC currently. - Will give another lasix 40mg IV - Will wean as tolerated. - Will repeat TTE. - Was scheduled for mitral valve replacement surgery on 03/31. ? Supra therapeutic INR: - INR 3.95 - S/P vit K in the ED. - Will check daily INRs. - Once therapeutic with place on heparin drip for Afib before undergoes surgery. ? Severe mitral stenosis and regurgitation: - Previous TTE on 06/04/17 with findings as above. - Repeat echo. - Will eventually need surgery for mitral valve replacement. Obstructive sleep apnea - Continue home CPAP Medication and Non-Pharmacologic VTE Prophylaxis/Anticoagulants 03/25/18 0815 activity - mobilize patient ([place]) 03/24/18 2100 vte pharmacologic prophylaxis contraindicated ([place]) 03/24/18 2100 pneumatic compression stockings ([place]) VTE Prophylaxis: Contraindicated supratherapeutic INR SIGNATURE: Reg Byrd DO PATIENT NAME: Gloira Mathew DATE: March 25, 2018 TIME: 8:42 AM PAGER/CONTACT #: [phone] I personally saw and examined the patient. I reviewed the resident's note. I agree with the resident's assessment and plan unless otherwise noted. Critical Care Documentation: The patient has the following organ/system impairment(s): *Atrial fibrillation with rapid ventricular response with probability of significant hemodynamic compromise, necessitating cardioversion and requirement for intravenous AV blocking agents. 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 Will continue amiodarone gtt for now, dig load, and increase metoprolol to 25 mg TID INR is still supra therapeutic- Monitor, Hb stable, will start hep gtt once < 2 Significant mitral valve disease. There was an outpatient plan for LHC and RHC and MEERA for next week. Will diurese for now and possibly do the cath and MEERA on Thursday Continue cardiac tele Reviewed ECG and cardiac studies This patient has a high probability of sudden, clinically significant deterioration, which requires the highest level of physician preparedness to intervene urgently. I managed/supervised life or organ supporting interventions that required frequent physician assessment. I devoted my full attention to the direct care of this patient for the amount of time indicated below. Time I spent with family or surrogate(s) is included only if the patient was incapable of providing the necessary information or participating in medical decision making. Time devoted to teaching is not included. ?? Time spent providing critical care services: 40 minutes excluding procedures Bruno Walton MD, [facility] 10:49 AM PROTIME Collected: 03/25/2018 Status: F Source: [facility] 5:35 AM HEALTH SYSTEM REPOSITORY TYPE CODE TESTS RESULT OUT OF REFERENCE UNITS RANGE LAB PTI(LOINC) 9.7-13.0 sec Prothrombin High Time 37.1 LAB INR(LOINC) 0.90-1.30 INR High 3.95 Result Comment: Note: Reference Range Change Vitamin K Antagonist (VKA) Therapeutic Range: INR 2 to 3 (Target INR of 2.5) Note: For patients treated with VKA drugs, such as warfarin, the [employer] 2012 Guideline recommends a therapeutic INR range of 2 to 3 (target INR of 2.5). This recommendation includes high-risk patients with antiphospholipid syndrome with previous arterial or venous thromboembolism, current-generation mechanical or bioprosthetic aortic heart valve replacement. VKA Therapeutic Range for some Mechanical Valve Replacement: INR 2.5 to 3.5 (Target INR of 3) Note: Patients with mechanical aortic valve replacement and additional risk factors for thromboembolic events (atrial fibrillation, previous thromboembolism, LV dysfunction, hypercoagulable conditions) or an older generation mechanical AVR (i.e., ball in-Cage) or any mechanical MVR should have a INR therapeutic range of 2.5 to 3.5 target INR of 3). Guyatt GH, et al. Chest 2012; 141:7S-47S [place] LAURA et al. [facility] 2017; 70: 252-289 Performed By: #### PT #### [place] [id number] Observed: 03/24/2018 Status: F Source: [facility] MRSA SCREEN 9:05 PM HEALTH SYSTEM REPOSITORY Test performed at [facility] No MRSA detected. Performed By: #### MRSA #### [place] [id number] HISTORY PHYSICAL Observed: 03/24/2018 Status: COMPLETED Source: [place] 9:00 PM CLINIC OTHER CAMPUS REPOSITORY HNO ID: [id number] Author: Bruno Walton Service: Cardiovascular Medicine Author Type: Physician Type: HANDP Filed: 03/25/2018 10:51 AM Note Text: HISTORY AND PHYSICAL EXAMINATION ? SERVICE DATE: 03/24/2018 SERVICE TIME: 7:34 PM ? PRIMARY CARE PHYSICIAN: Loree Small MD ? ? Subjective CHIEF COMPLAINT: Palpitations ? HPI: This is a 77 year old female with past medical history of mitral stenosis, severe MR, h/o rheumatic fever 60 years ago, atrial fibrillation presented to the ER with complains of palpitations. She was recently diagnosed with Afib on 03/13/18 and was started on metoprolol 12.5mg BID and coumadin 5 mg. Patient did not have control in her HR after which her metoprolol was increased to 25 bid on 03/19. She also follows up at coumadin clinic and her warfarin dose was decreased to 2.5 mg due to supra therapeutic INR. Today, on presentation to the ED she complained of palpitations and shortness of breath. She denies any chest pain/ pressure, dizziness, lightheadedness or episodes of syncope. She has had worsening shortness of breath on exertion since the past 2 weeks but denies orthopnea or PND at this time. Patient follows up with Dr. Perez and was scheduled for a left and right heart cath on 03/31, she was also scheduled for a mitral valve replacement surgery. She has not taken her coumadin dose today and was also told to hold her metoprolol due to low BP after which she came to the ER. ED course: In the ED she was found to be in Afib w RVR in 160s, complaining of dyspnea and palpitations. She was given lopressor 2.5 mg twice after which it improved to 140s. She was also loaded with digoxin. Patient was also found to have a supra therapeutic INR of 13.7 and was reversed with vit K. She has no active bleeding or h/o bleeding. She was then transferred to CVICU for further evaluation. ? FUNCTIONAL STATUS: Independent PAST MEDICAL HISTORY PAST MEDICAL HISTORY Diagnosis Date - Breast mass, right ? - IBS (irritable bowel syndrome) ? - Mitral valve regurgitation ? - Mitral valve stenosis ? - Pulmonary HTN (HCC) ? - Tricuspid regurgitation ? ? PAST SURGICAL HISTORY PAST SURGICAL HISTORY Procedure Laterality Date - BREAST BIOPSY ? ? - CHOLECYSTECTOMY HX ? 10/02/2011 - HYSTERECTOMY HX ? ? ? MAREYLLEN/BLO - LEG SURGERY HX ? ? ? FAMILY HISTORY FAMILY HISTORY Problem Relation Age of Onset - Breast Cancer Mother ? ? stage III - Coronary Artery Disease Mother ? ? mother, uncle - Cancer Paternal Grandfather ? - Colon Cancer Maternal Grandmother ? - Diabetes Other ? ? uncle - Stroke Maternal Grandfather ? ? SOCIAL HISTORY Social History Substance Use Topics - Smoking status: Never Smoker - Smokeless tobacco: Never Used - Alcohol use No ? Prescriptions Prior to Admission ? (Not in a hospital admission) ALLERGIES ALLERGIES No Known Allergies ? COMPLETE REVIEW OF SYSTEMS: GENERAL: No weight loss, malaise or fevers HEENT: Negative for frequent or significant headaches, No changes in hearing or vision, no nose bleeds or other nasal problems NECK: Negative for lumps, goiter, pain and significant neck swelling RESPIRATORY: Positive for dyspnea on exertion, no cough, chest pain, wheezing. CARDIOVASCULAR: Positive for palpitations and dyspnea on exertion. No orthopnea, PND, leg swelling, chest pain/preseure, dizziness or episodes of syncope. GI: No nausea, vomiting, or diarrhea : No history of dysuria, frequency or incontinence MUSCULOSKELETAL: Negative for joint pain or swelling, back pain or muscle pain SKIN: Negative for lesions, rash, and itching PSYCH: Negative for sleep disturbance, mood disorder and recent psychosocial stressors NEURO: No history of headaches, syncope, paralysis, seizures or tremors ? ? Objective PHYSICAL EXAM: Physical Exam Performed: GENERAL: Alert, no distress, cooperative SKIN: Skin color, texture, turgor normal. No rashes or lesions. HEAD/SINUSES: No significant findings EYES: PERRLA, EOMI LUNGS: Bilateral crackles present in upper and lower lung zones. There are no wheezes. No stridor, accessory muscle use or tripoding. CARDIAC: S1, S2 irregular, tachycardic, systolic murmur present in mitral area. No lower extremity edema but elevated JVD 10 cm ABDOMEN: Abdomen soft, non-tender, BS normal, No masses or organomegaly EXTREMITIES: Extremities normal, no deformities, edema, clubbing or skin discoloration. Good capillary refill., No ulcers NEURO: Gait normal. Reflexes normal and symmetric. Sensation grossly intact PULSES: 2+ radial, 2+ carotid ? There were no vitals taken for this visit. ? DATA: Diagnostic tests reviewed for today's visit: Most recent labs and imaging results. WBC (thou/cmm) Date Value 03/24/2018 6.5 ? RBC (mil/cmm) Date Value 03/24/2018 4.15 ? HGB (g/dL) Date Value 03/24/2018 13.0 ? Hematocrit (%) Date Value 03/24/2018 37.9 ? MCV (fl) Date Value 03/24/2018 91.3 ? MCH (pg) Date Value 03/24/2018 31.3 ? MCHC (%) Date Value 03/24/2018 34.3 ? Platelet Count (thou/cmm) Date Value 03/24/2018 286 ? MPV (fl) Date Value 03/24/2018 10.3 ? Glucose (mg/dL) Date Value 03/24/2018 118 (H) ? BUN (mg/dL) Date Value 03/24/2018 28 (H) ? Creatinine (mg/dL) Date Value 03/24/2018 0.99 (H) ? Creatinine, Whole Blood (iSTAT) (mg/dL) Date Value 03/24/2018 1.0 ? Sodium (mEq/L) Date Value 03/24/2018 142 ? Potassium (mEq/L) Date Value 03/24/2018 4.3 ? Chloride (mEq/L) Date Value 03/24/2018 111 (H) ? CO2 (mEq/L) Date Value 03/24/2018 23 ? Protein, Total (g/dL) Date Value 07/05/2017 7.0 ? Albumin (g/dL) Date Value 07/05/2017 3.6 ? Calcium (mg/dL) Date Value 03/24/2018 8.9 ? Alkaline Phosphatase (U/L) Date Value 07/05/2017 81 ? Bilirubin, Total (mg/dL) Date Value 07/05/2017 1.0 ? AST (U/L) Date Value 07/05/2017 15 ? ALT (U/L) Date Value 07/05/2017 27 ? FELIPA (no units) Date Value 10/01/2017 SEE BELOW ? Rheumatoid Factor (IU/mL) Date Value 10/01/2017 <10.0 ? ? URINALYSIS No results found for: PH, SPGR, UGLUC, UBILI, UKET, UHB, UPROT, UROBIL, UWBC, SSA ? TTE(06/04/2017): Moderate to severe mitral stenosis 2-3+ MR Peak and mean gradients are 30 and 10 respectively. LVEF 55-6-% ? ? Assessment/Plan ? Paroxysmal Afib with RVR: - HR uncontrolled currently in 140s. - S/P lopressor 2.5 mg X 2 and digoxin. - Will start on amiodarone drip. - Will need cath once HR controlled. - Was on coumadin for valvular Afib but currently on hold due to supra therapeutic INR. - TTE ? Acute hypoxic respiratory failure: - Secondary to severe MR: - CXR findings of pulmonary edema, on 2 L NC currently. - Will wean as tolerated. - IV Lasix 40 mg X 1 - Will repeat TTE. - Was scheduled for mitral valve replacement surgery on 03/31. ? Supra therapeutic INR: - INR 13.7 during this admission. - S/P vit K in the ED. - Will check daily INRs. - Once therapeutic with place on heparin drip for Afib before undergoes surgery. ? Severe mitral stenosis and regurgitation: - Previous TTE on 06/04/17 with findings as above. - Repeat echo. - Will eventually need surgery for mitral valve replacement. ? Medication and Non-Pharmacologic VTE Prophylaxis/Anticoagulants 03/24/181929 vte pharmacologic prophylaxis contraindicated ([place]) 03/24/181929 pneumatic compression stockings ([place]) VTE Prophylaxis: VTE prophylaxis appropriate ? SIGNATURE: SHARATH Morales PATIENT NAME: Gloria Mathew DATE: March 24, 2018 TIME: 7:34 PM ? ? ?8:40 PM Lab on 03/24/2018 ? Revision History ? Detailed Report I personally saw and examined the patient. I reviewed the resident's note. I agree with the resident's assessment and plan unless otherwise noted. Critical Care Documentation: The patient has the following organ/system impairment(s): *Atrial fibrillation with rapid ventricular response with probability of significant hemodynamic compromise, necessitating cardioversion and requirement for intravenous AV blocking agents. 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 Will continue amiodarone gtt for now, dig load, and increase metoprolol to 25 mg TID INR is still supra therapeutic- Monitor, Hb stable, will start hep gtt once < 2 Significant mitral valve disease. There was an outpatient plan for LHC and RHC and MEERA for next week. Will diurese for now and possibly do the cath and MEERA on Thursday Continue cardiac tele Reviewed ECG and cardiac studies This patient has a high probability of sudden, clinically significant deterioration, which requires the highest level of physician preparedness to intervene urgently. I managed/supervised life or organ supporting interventions that required frequent physician assessment. I devoted my full attention to the direct care of this patient for the amount of time indicated below. Time I spent with family or surrogate(s) is included only if the patient was incapable of providing the necessary information or participating in medical decision making. Time devoted to teaching is not included. ?? Time spent providing critical care services: 40 minutes excluding procedures Bruno Walton MD, [facility] 10:49 AM HISTORY PHYSICAL Observed: 03/24/2018 Status: COMPLETED Source: [place] 7:33 PM CLINIC OTHER CAMPUS REPOSITORY HNO ID: [id number] Author: Bridgette Garces Service: Cardiovascular Medicine Author Type: Resident Type: HANDP Filed: 03/24/2018 8:40 PM Note Text: HISTORY AND PHYSICAL EXAMINATION SERVICE DATE: 03/24/2018 SERVICE TIME: 7:34 PM PRIMARY CARE PHYSICIAN: Loree Small MD Subjective CHIEF COMPLAINT: Palpitations HPI: This is a 77 year old female with past medical history of mitral stenosis, severe MR, h/o rheumatic fever 60 years ago, atrial fibrillation presented to the ER with complains of palpitations. She was recently diagnosed with Afib on 03/13/18 and was started on metoprolol 12.5mg BID and coumadin 5 mg. Patient did not have control in her HR after which her metoprolol was increased to 25 bid on 03/19. She also follows up at coumadin clinic and her warfarin dose was decreased to 2.5 mg due to supra therapeutic INR. Today, on presentation to the ED she complained of palpitations and shortness of breath. She denies any chest pain/ pressure, dizziness, lightheadedness or episodes of syncope. She has had worsening shortness of breath on exertion since the past 2 weeks but denies orthopnea or PND at this time. Patient follows up with Dr. Perez and was scheduled for a left and right heart cath on 03/31, she was also scheduled for a mitral valve replacement surgery. She has not taken her coumadin dose today and was also told to hold her metoprolol due to low BP after which she came to the ER. ED course: In the ED she was found to be in Afib w RVR in 160s, complaining of dyspnea and palpitations. She was given lopressor 2.5 mg twice after which it improved to 140s. She was also loaded with digoxin. Patient was also found to have a supra therapeutic INR of 13.7 and was reversed with vit K. She has no active bleeding or h/o bleeding. She was then transferred to CVICU for further evaluation. FUNCTIONAL STATUS: Independent PAST MEDICAL HISTORY Diagnosis Date - Breast mass, right - IBS (irritable bowel syndrome) - Mitral valve regurgitation - Mitral valve stenosis - Pulmonary HTN (HCC) - Tricuspid regurgitation PAST SURGICAL HISTORY Procedure Laterality Date - BREAST BIOPSY - CHOLECYSTECTOMY HX 10/02/2011 - HYSTERECTOMY HX MARYELLEN/BLO - LEG SURGERY HX FAMILY HISTORY Problem Relation Age of Onset - Breast Cancer Mother stage III - Coronary Artery Disease Mother mother, uncle - Cancer Paternal Grandfather - Colon Cancer Maternal Grandmother - Diabetes Other uncle - Stroke Maternal Grandfather Social History Substance Use Topics - Smoking status: Never Smoker - Smokeless tobacco: Never Used - Alcohol use No (Not in a hospital admission) ALLERGIES No Known Allergies COMPLETE REVIEW OF SYSTEMS: GENERAL: No weight loss, malaise or fevers HEENT: Negative for frequent or significant headaches, No changes in hearing or vision, no nose bleeds or other nasal problems NECK: Negative for lumps, goiter, pain and significant neck swelling RESPIRATORY: Positive for dyspnea on exertion, no cough, chest pain, wheezing. CARDIOVASCULAR: Positive for palpitations and dyspnea on exertion. No orthopnea, PND, leg swelling, chest pain/preseure, dizziness or episodes of syncope. GI: No nausea, vomiting, or diarrhea : No history of dysuria, frequency or incontinence MUSCULOSKELETAL: Negative for joint pain or swelling, back pain or muscle pain SKIN: Negative for lesions, rash, and itching PSYCH: Negative for sleep disturbance, mood disorder and recent psychosocial stressors NEURO: No history of headaches, syncope, paralysis, seizures or tremors Objective PHYSICAL EXAM: Physical Exam Performed: GENERAL: Alert, no distress, cooperative SKIN: Skin color, texture, turgor normal. No rashes or lesions. HEAD/SINUSES: No significant findings EYES: PERRLA, EOMI LUNGS: Bilateral crackles present in upper and lower lung zones. There are no wheezes. No stridor, accessory muscle use or tripoding. CARDIAC: S1, S2 irregular, tachycardic, systolic murmur present in mitral area. No lower extremity edema or JVD. ABDOMEN: Abdomen soft, non-tender, BS normal, No masses or organomegaly EXTREMITIES: Extremities normal, no deformities, edema, clubbing or skin discoloration. Good capillary refill., No ulcers NEURO: Gait normal. Reflexes normal and symmetric. Sensation grossly intact PULSES: 2+ radial, 2+ carotid There were no vitals taken for this visit. DATA: Diagnostic tests reviewed for today's visit: Most recent labs and imaging results. WBC (thou/cmm) Date Value 03/24/2018 6.5 RBC (mil/cmm) Date Value 03/24/2018 4.15 HGB (g/dL) Date Value 03/24/2018 13.0 Hematocrit (%) Date Value 03/24/2018 37.9 MCV (fl) Date Value 03/24/2018 91.3 MCH (pg) Date Value 03/24/2018 31.3 MCHC (%) Date Value 03/24/2018 34.3 Platelet Count (thou/cmm) Date Value 03/24/2018 286 MPV (fl) Date Value 03/24/2018 10.3 Glucose (mg/dL) Date Value 03/24/2018 118 (H) BUN (mg/dL) Date Value 03/24/2018 28 (H) Creatinine (mg/dL) Date Value 03/24/2018 0.99 (H) Creatinine, Whole Blood (iSTAT) (mg/dL) Date Value 03/24/2018 1.0 Sodium (mEq/L) Date Value 03/24/2018 142 Potassium (mEq/L) Date Value 03/24/2018 4.3 Chloride (mEq/L) Date Value 03/24/2018 111 (H) CO2 (mEq/L) Date Value 03/24/2018 23 Protein, Total (g/dL) Date Value 07/05/2017 7.0 Albumin (g/dL) Date Value 07/05/2017 3.6 Calcium (mg/dL) Date Value 03/24/2018 8.9 Alkaline Phosphatase (U/L) Date Value 07/05/2017 81 Bilirubin, Total (mg/dL) Date Value 07/05/2017 1.0 AST (U/L) Date Value 07/05/2017 15 ALT (U/L) Date Value 07/05/2017 27 FELIPA (no units) Date Value 10/01/2017 SEE BELOW Rheumatoid Factor (IU/mL) Date Value 10/01/2017 <10.0 URINALYSIS No results found for: PH, SPGR, UGLUC, UBILI, UKET, UHB, UPROT, UROBIL, UWBC, SSA TTE(06/04/2017): Moderate to severe mitral stenosis 2-3+ MR Peak and mean gradients are 30 and 10 respectively. LVEF 55-6-% Assessment/Plan Paroxysmal Afib with RVR: - HR uncontrolled currently in 140s. - S/P lopressor 2.5 mg X 2 and digoxin. - Will start on amiodarone drip. - Will need cath once HR controlled. - Was on coumadin for valvular Afib but currently on hold due to supra therapeutic INR. - TTE Acute hypoxic respiratory failure: - Secondary to severe MR: - CXR findings of pulmonary edema, on 2 L NC currently. - Will wean as tolerated. - IV Lasix 40 mg X 1 - Will repeat TTE. - Was scheduled for mitral valve replacement surgery on 03/31. Supra therapeutic INR: - INR 13.7 during this admission. - S/P vit K in the ED. - Will check daily INRs. - Once therapeutic with place on heparin drip for Afib before undergoes surgery. Severe mitral stenosis and regurgitation: - Previous TTE on 06/04/17 with findings as above. - Repeat echo. - Will eventually need surgery for mitral valve replacement. Medication and Non-Pharmacologic VTE Prophylaxis/Anticoagulants 03/24/181929 vte pharmacologic prophylaxis contraindicated (de,oh) 03/24/181929 pneumatic compression stockings (de,ky) VTE Prophylaxis: VTE prophylaxis appropriate SIGNATURE: SHARATH Morales PATIENT NAME: Gloria Mathew DATE: March 24, 2018 TIME: 7:34 PM CHEST 2 VIEWS Observed: 03/24/2018 Status: F Source: [facility] 3:47 PM HEALTH SYSTEM REPOSITORY Performed at [facility] APPROVED BY: Adalid Thomas MD EXAMINATION: CHEST RADIOGRAPH (2 VIEW FRONTAL & LATERAL) CLINICAL HISTORY: Shortness of breath MQ: XC2_5 Comparison: 08/28/2011 RESULT: Lines, tubes, and devices: None. Lungs and pleura: There are small lateral pleural effusions. Coexisting mild bibasilar airspace disease. There is prominence and indistinctness of the pulmonary vasculature in conjunction with septal thickening. Cardiomediastinal silhouette: The heart size is normal. There is bihilar prominence Other: No acute bony abnormalities seen. IMPRESSION: Findings as above most likely representing moderate pulmonary edema. Small bilateral pleural effusions with mild coexisting bibasilar atelectasis and/or infiltrate. Bilateral prominence, which is most likely related to probable avascular. However, follow-up chest CT is recommended to exclude the possibility of adenopathy. ED PROV NOTE Observed: 03/24/2018 Status: COMPLETED Source: [place] 3:32 PM CLINIC OTHER CAMPUS REPOSITORY O ID: [id number] Author: DIANE Bains (Pa) Service: Emergency Medicine Author Type: Physician Information Tech Type: ED Provider Notes Filed: 03/24/2018 5:06 PM Note Text: Attestation signed by Yue Byrd MD at 03/25/2018 8:41 AM I independently evaluated this patient with the PA/TUNNELLER. I agree with the history, physical, disposition, and plan of treatment.patient presented with an elevated INR and was noted to have tachycardia on physical exam. Workup showed A. fib with RVR with some mild heart failure. Patient was given multiple doses of Lopressor in the emergency department but had difficult to control blood pressure as well as heart rate. Patient was ultimately admitted to the CCU. Signature: Yue Byrd MD Date: 03/25/2018 Time: 8:39 AM ED Provider Note Patient Name: Gloria Mathew SERVICE DATE: 03/24/18 History Patient presents with: Results, Lab Shortness of Breath Weakness Chest Pain Gloria Mathew is a 77 year old female who presents due to abnormal outpatient lab testing. The patient had an INR checked this morning. It was elevated. She was advised to present to the emergency department. She was recently started on Coumadin and metoprolol approximately 2 weeks ago by her associate data scientist for new onset atrial fibrillation. Blood pressure was running low over the past several days therefore she was told to hold her metoprolol this morning. She is feeling palpitations, like her heart is racing and short of breath. She has no symptoms of bleeding. She did not take Coumadin today. She denies any other review of systems. - Symptoms began 2 weeks prior to arrival. Onset was gradual. - Severity: severe - Timing: intermittent - Symptoms are exacerbated by exertion. - Symptoms are not exacerbated by allergies. - Symptoms are associated with palpitations and feeling as if her heart is racing. - Symptoms are not associated with abdominal distension, abdominal pain, chest pain, coughing, dizziness, fever, nausea, peripheral edema, vomiting, weight gain and wheezing. - Improved by nothing. - Not improved by rest. PAST MEDICAL HISTORY Diagnosis Date - Breast mass, right - IBS (irritable bowel syndrome) - Mitral valve regurgitation - Mitral valve stenosis - Pulmonary HTN (HCC) - Tricuspid regurgitation PAST SURGICAL HISTORY Procedure Laterality Date - BREAST BIOPSY - CHOLECYSTECTOMY HX 10/02/2011 - HYSTERECTOMY HX MARYELLEN/BLO - LEG SURGERY HX FAMILY HISTORY Problem Relation Age of Onset - Breast Cancer Mother stage III - Coronary Artery Disease Mother mother, uncle - Cancer Paternal Grandfather - Colon Cancer Maternal Grandmother - Diabetes Other uncle - Stroke Maternal Grandfather Social History Social History Main Topics - Smoking status: Never Smoker - Smokeless tobacco: Never Used - Alcohol use No - Drug use: No - Sexual activity: Not on file ALLERGIES No Known Allergies Review of Systems Constitutional: Positive for fatigue. Negative for chills, diaphoresis and fever. HENT: Negative for congestion and sore throat. Eyes: Negative for photophobia and visual disturbance. Respiratory: Positive for shortness of breath. Negative for cough, chest tightness and wheezing. Cardiovascular: Positive for palpitations. Negative for chest pain and leg swelling. Gastrointestinal: Negative for abdominal pain, diarrhea, nausea and vomiting. Genitourinary: Negative for dysuria and hematuria. Musculoskeletal: Negative for back pain and neck pain. Skin: Negative for color change and rash. Neurological: Negative for dizziness, syncope, weakness, light-headedness, numbness and headaches. All other systems reviewed and are negative. Physical Exam BP 117/73 Pulse 143 Resp 24 Ht 5' 2 (1.58m) Wt 150 lb (68.0kg) SpO2 98% BMI 27.43 kg/(m2). Physical Exam Constitutional: She is oriented to person, place, and time. She appears well-developed and well-nourished. Non-toxic appearance. No distress. HENT: Head: Normocephalic and atraumatic. Mouth/Throat: Mucous membranes are normal. Eyes: Pupils are equal, round, and reactive to light. Conjunctivae and EOM are normal. Neck: Normal range of motion and phonation normal. Neck supple. Cardiovascular: Normal heart sounds, intact distal pulses and normal pulses. An irregularly irregular rhythm present. Tachycardia present. No murmur heard. Pulmonary/Chest: Effort normal and breath sounds normal. No accessory muscle usage. No tachypnea. No respiratory distress. She has no decreased breath sounds. She has no wheezes. She has no rhonchi. She has no rales. She exhibits no tenderness and no bony tenderness. Abdominal: Soft. Normal appearance and bowel sounds are normal. She exhibits no distension. There is no tenderness. There is no rigidity, no rebound, no guarding, no CVA tenderness, no tenderness at McBurney's point and negative Powers's sign. Musculoskeletal: Normal range of motion. She exhibits no edema, tenderness or deformity. Neurological: She is alert and oriented to person, place, and time. Skin: Skin is warm, dry and intact. Capillary refill takes less than 2 seconds. No rash noted. She is not diaphoretic. No pallor. Nursing note and vitals reviewed. Diagnostic Testing ED Labs Ordered and Reviewed PROTHROMBIN TIME / PT (AK,AV,EU,FV,HL,LUPILLO,MM,SP) - Abnormal; Notable for the following: Result Value Ref Range Prothrombin Time >120.0 (*) 9.7 - 13.0 sec INR >13.70 (*) 0.90 - 1.30 All other components within normal limits ISTAT [place] CHEM 8 (AK,FV) - Abnormal; Notable for the following: TCO2, Whole Blood (iSTAT) 23 (*) 24 - 29 mmol/L Glucose, Whole Blood (iSTAT) 115 (*) 70 - 99 mg/dL BUN, Whole Blood (iSTAT) 29 (*) 8 - 26 mg/dL All other components within normal limits CBC + AUTO DIFF (AK,AV,EU,FV,HL,LUPILLO,MM,SP) TROPONIN I (AK) Procedures ED Course / Clinical Impression Clinical Impressions as of Mar 24 1705 Atrial fibrillation with rapid ventricular response (HCC) Elevated INR Bilateral pleural effusion Hypotension, unspecified hypotension type MDM / Disposition / Plan On arrival the patient EKG demonstrates atrial fibrillation with rapid ventricular response with heart rate approximately 155 bpm. Patient was given 2.5 mg of IV Lopressor due to a slightly low blood pressure of 99/62. Heart rate very mildly improved to 142, blood pressure was 102/70, patient was given another 2.5 mg of IV Lopressor. Laboratory workup was remarkable for an INR greater than 13.7. Patient was treated with oral vitamin K. Chest x-ray demonstrates bilateral pleural effusions with bibasilar atelectasis and/or infiltrate with moderate pulmonary edema. Dr. Seth munitions factory worker for the patient's associate data scientist Dr. Perez was contacted. Patient was given a dose of digoxin per his request. Dr. Seth who is also covering for the CCU recommended CCU admission and he will accept the patient. CCU resident also contacted. At this time the patient is hemodynamically stable with blood pressure 117/73 and a 98% pulse oximetry on 2L NC. Patient will be transferred by [facility]. Disposition The patient was transferred and case discussed with another provider. Case discussed with Dr. Seth and CCU resident. Transferred to [facility]. Condition at disposition is stable. Critical Care I spent a total of 39 minutes of critical care time in the evaluation and management of this patient. This was necessary to treat or prevent deterioration of the following condition(s): cardiovascular impairment, which the patient had and/or has high probability of suddenly developing. The patient received IV fluids and oxygen during the time that critical care was provided. Critical care time excludes separately billed procedures. Critical care time documentation entered by Piotr Batista PA-C. SIGNATURE: CHINO Bains PA (Pa) 03/24/18 1705 DIANE Bains (Pa) 03/24/18 1706 Yue Byrd MD 03/25/18 0841 C8 PANEL (I-STAT) Collected: 03/24/2018 Status: F Source: [facility] 3:15 PM HEALTH SYSTEM REPOSITORY TYPE CODE TESTS RESULT OUT OF REFERENCE UNITS RANGE LAB GNAIS(LOIN 138-146 mmol/L C) Sodium (i-STAT) 141 LAB GKIS(LOINC 3.5-4.9 mmol/L ) Potassium 3.8 (i-STAT) LAB GCLIS(LOIN 98-109 mmol/L C) Chloride (i-STAT) 106 LAB GTCOI(LOIN 24-29 mmol/L C) Low Total CO2 (i-STAT) 23 LAB GGLUI(LOIN 70-99 mg/dL C) Glucose High (i-STAT) 115 LAB GBUNI(LOIN 8-26 mg/dL C) BUN High (i-STAT) 29 LAB GCREI(LOIN 0.6-1.3 mg/dL C) Creatinine 1.0 (i-STAT) Performed By: #### GC8IS #### [place] [address] CALCIUM BLOOD Collected: 03/24/2018 Status: F Source: [facility] 3:15 PM HEALTH SYSTEM REPOSITORY TYPE CODE TESTS RESULT OUT OF REFERENCE UNITS RANGE LAB CA(LOINC) 8.5-10.1 mg/dL Calcium Blood 8.9 Performed By: #### CA #### [place] [address] HEMOGRAM/DIFF Collected: 03/24/2018 Status: F Source: [facility] 2:40 PM HEALTH SYSTEM REPOSITORY TYPE CODE TESTS RESULT OUT OF REFERENCE UNITS RANGE LAB GWBC(LOINC 4.4-9.7 thou/cmm ) WBC 6.5 LAB GRBC(LOINC 3.79-4.93 mil/cmm ) RBC 4.15 LAB GHGB(LOINC 11.7-14.7 g/dL ) Hgb 13.0 LAB GHCT(LOINC 34.7-43.3 % ) Hct 37.9 LAB GMCV(LOINC 82.1-97.4 fl ) MCV 91.3 LAB GMCH(LOINC 27.4-32.8 pg ) MCH 31.3 LAB GMCHC(LOIN 31.9-35.6 % C) MCHC 34.3 LAB GRDW(LOINC 11.8-14.5 % ) RDW 13.6 LAB GPLT(LOINC 150-370 thou/cmm ) Platelet 286 LAB GMPV(LOINC 8.8-12.1 fl ) MPV 10.3 LAB GSEGT(LOIN % C) Seg Neutrophil 73.3 LAB GLYMP(LOIN % C) Lymphocyte 17.5 LAB GMNO(LOINC % ) Monocyte 6.7 LAB GEOS(LOINC % ) Eosinophil 1.7 LAB GBASO(LOIN % C) Basophil 0.8 LAB GSEG2(LOIN 1.35-7.21 thou/cmm C) Abs. Neut (ANC) 4.73 LAB GLYMN(LOIN 0.68-2.93 thou/cmm C) Abs. Lymph 1.14 LAB GMONN(LOIN 0.19-0.80 thou/cmm C) Abs. Morrill 0.44 LAB GEOSN(LOIN 0.00-0.36 thou/cmm C) Abs. Eosin 0.11 LAB GBASN(LOIN 0.00-0.08 thou/cmm C) Abs. Baso 0.05 Performed By: #### GCBCD #### [facility] [address] [place] [id number] TROPONIN I Collected: 03/24/2018 Status: F Source: [facility] [address] SYSTEM REPOSITORY TYPE CODE TESTS RESULT OUT OF REFERENCE UNITS RANGE LAB GTRP(LOINC) <0.04 ng/mL Troponin I 0.00 Performed By: #### GTRP #### [place] [address] PROTIME Collected: 03/24/2018 Status: F Source: [facility] 2:40 PM HEALTH SYSTEM REPOSITORY TYPE CODE TESTS RESULT OUT OF REFERENCE UNITS RANGE LAB GPTI(LOINC 9.7-13.0 sec ) Prothrombin High Time >120.0 LAB GINR(LOINC 0.90-1.30 ) INR High alert >13.70 Result Comment: RESULT RECHECKED Note: Reference Range Change Vitamin K Antagonist (VKA) Therapeutic Range: INR 2 to 3 (Target INR of 2.5) Note: For patients treated with VKA drugs, such as warfarin, the [employer] 2012 Guideline recommends a therapeutic INR range of 2 to 3 (target INR of 2.5). This recommendation includes high-risk patients with antiphospholipid syndrome with previous arterial or venous thromboembolism, current-generation mechanical or bioprosthetic aortic heart valve replacement. VKA Therapeutic Range for some Mechanical Valve Replacement: INR 2.5 to 3.5 (Target INR of 3) Note: Patients with mechanical aortic valve replacement and additional risk factors for thromboembolic events (atrial fibrillation, previous thromboembolism, LV dysfunction, hypercoagulable conditions) or an older generation mechanical AVR (i.e., ball in-Cage) or any mechanical MVR should have a INR therapeutic range of 2.5 to 3.5 target INR of 3). Guyatt GH, et al. Chest 2012; 141:7S-47S Marbella RA, et al. JAC 2017; 70: 252-289 Performed By: #### GPT #### [place] [address] ED NOTE Observed: 03/24/2018 Status: COMPLETED Source: [place] 2:36 PM CLINIC OTHER CAMPUS REPOSITORY HNO ID: [id number] Author: Mamadou (Rn) MARCELLA Shaikh Service: Emergency Medicine Author Type: Registered Nurse Type: ED Notes Filed: 03/24/2018 2:37 PM Note Text: Pt sent in for abnormal INR. Reports weakness for past few days. Midsternal chest pressure with sob this afternoon. EKG (AK,AV,EU,FV,HL,LUPILLO,MM,SP) Observed: Status: F Source: [place] 03/24/2018 2:33 PM CLINIC OTHER CAMPUS REPOSITORY NAME : GLORIA MATHEW PID : [id number] : 1940 Gender : Female Race : ORD : [id number] Procedure Date : Mar 24 2018 14:33 Edit Date : Mar 24 2018 14:52 Diagnosis:ATRIAL FIBRILLATION WITH RAPID VENTRICULAR RESPONSE LOW VOLTAGE QRS NONSPECIFIC ST AND T WAVE ABNORMALITY ABNORMAL ECG WHEN COMPARED WITH ECG OF 28-AUG-2011 19:10, ATRIAL FIBRILLATION HAS REPLACED SINUS RHYTHM VENT. RATE HAS INCREASED BY 65 BPM QUESTIONABLE CHANGE IN QRS AXIS NONSPECIFIC T WAVE ABNORMALITY NOW EVIDENT IN INFERIOR LEADS T WAVE INVERSION NOW EVIDENT IN ANTERIOR LEADS Confirmed by MD Byrd Michael ([id number]) on 03/24/2018 2:52:35 PM Ventricular Rate : 155 BPM Atrial Rate : 340 BPM QRS Duration : 76 ms Q-T Interval : 278 ms QTC Calculation(Bezet) : 446 ms R Radnor : 87 degrees T Radnor : 157 degrees Test Reason : Palpitations Location : 153 : [facility]-ED ED Overread By : MD Byrd Michael Editted By : MD Byrd Michael Referred By : PIOTR BATISTA Acquired by : Larry Maynard HEMOGRAM Collected: 03/24/2018 Status: F Source: [facility] 11:15 AM HEALTH SYSTEM REPOSITORY TYPE CODE TESTS RESULT OUT OF REFERENCE UNITS RANGE LAB WBC(LOINC) 3.98-10.04 thou/cmm WBC 6.75 LAB RBC(LOINC) 3.93-5.22 mil/cmm RBC 4.04 LAB HGB(LOINC) 11.2-15.7 g/dL Hgb 12.2 LAB HCT(LOINC) 34.1-44.9 % Hct 38.0 LAB MCV(LOINC) 79.4-94.8 fl MCV 94.1 LAB MCH(LOINC) 25.6-32.2 pg MCH 30.2 LAB MCHC(LOINC 31.6-34.8 % ) MCHC 32.1 LAB RDW(LOINC) 11.7-14.4 % RDW 13.2 LAB RDWSD(LOIN 36.4-46.3 fl C) RDW SD 45.0 LAB PLT(LOINC) 182-369 thou/cmm Platelet 268 LAB MPV(LOINC) 9.4-12.3 fl MPV 9.9 LAB NRBCR(LOIN 0.0-0.2 % C) High Nucleated RBC % 0.3 LAB NRBCA(LOIN 0.00-0.01 thou/cmm C) High Nucleated RBC 0.02 Absolute Performed By: #### CBC1 #### [place] [address] BASIC PANEL Collected: 03/24/2018 Status: F Source: [facility] 11:15 AM HEALTH SYSTEM REPOSITORY TYPE CODE TESTS RESULT OUT OF REFERENCE UNITS RANGE LAB NA(LOINC) 136-145 mEq/L Sodium Blood 142 LAB K(LOINC) 3.5-5.1 mEq/L Potassium Blood 4.3 LAB CL(LOINC) 98-107 mEq/L Chloride High Blood 111 LAB CO2(LOINC) 21-32 mEq/L CO2 Blood 23 LAB GLU(LOINC) 70-99 mg/dL Glucose High Blood 118 LAB BUN(LOINC) 7-18 mg/dL BUN High Blood 28 LAB CREA(LOINC 0.51-0.95 mg/dL ) High Creatinine Blood 0.99 LAB CA(LOINC) 8.5-10.1 mg/dL Calcium Blood 8.5 LAB ANGAP(LOIN 8-16 C) Anion Gap 12 Performed By: #### P8 #### [place] [address] MDRD GFR Collected: 03/24/2018 Status: F Source: [facility] 11:[facility] REPOSITORY TYPE CODE TESTS RESULT OUT OF RANGE REFERENCE UNITS LAB GFRFN(LOINC >60mL/min/1.73m ) 2 eGFR 54.62 Result Comment: If the patient is , multiply the result by 1.210. Performed By: #### GFR #### [place] [id number] PROTIME Collected: 03/24/2018 Status: F Source: [facility] 11:15 HEALTH SYSTEM REPOSITORY TYPE CODE TESTS RESULT OUT OF REFERENCE UNITS RANGE LAB PTI(LOINC) 9.7-13.0 sec Prothrombin High Time >90.0 LAB INR(LOINC) 0.90-1.30 INR High alert >8.00 Result Comment: RESULT RECHECKED Note: Reference Range Change Vitamin K Antagonist (VKA) Therapeutic Range: INR 2 to 3 (Target INR of 2.5) Note: For patients treated with VKA drugs, such as warfarin, the [employer] 2012 Guideline recommends a therapeutic INR range of 2 to 3 (target INR of 2.5). This recommendation includes high-risk patients with antiphospholipid syndrome with previous arterial or venous thromboembolism, current-generation mechanical or bioprosthetic aortic heart valve replacement. VKA Therapeutic Range for some Mechanical Valve Replacement: INR 2.5 to 3.5 (Target INR of 3) Note: Patients with mechanical aortic valve replacement and additional risk factors for thromboembolic events (atrial fibrillation, previous thromboembolism, LV dysfunction, hypercoagulable conditions) or an older generation mechanical AVR (i.e., ball in-Cage) or any mechanical MVR should have a INR therapeutic range of 2.5 to 3.5 target INR of 3). Nathanael GH, et al. Chest 2012; 141:7S-47S Marbella RA, et al. [facility] 2017; 70: 252-289 Performed By: #### PT #### [place] [address] PROGRESS Observed: 03/24/2018 Status: COMPLETED Source: [place] 9:56 AM CLINIC OTHER CAMPUS REPOSITORY O ID: [id number] Author: Rachel Palomares (Pharmacist) Service: (none) Author Type: Pharmacist Type: Progress Notes Filed: 03/24/2018 1:43 PM Note Text: Referred by: Dr. Perez Indication: New onset valvular AFib, Rheumatic mitral regurgitation, Rheumatic mitral stenosis INR goal: 2.0-3.0 Duration: Indefinite Bridging assessment and details: Low risk of therapy interruption. CHADS-VASC = 3 (age, female) Consult agreement signed by physician. Patient has been notified verbally and/or in writing of the terms of the pharmacist-physician consult agreement for the anticoagulation clinic. Date: 03/19/2018 INR Date Value Ref Range Status 03/24/2018 >8.0 0.81 - 1.21 Final 03/19/2018 4.9 (A) 0.81 - 1.21 Final 03/24/18 1003 BP: 84/62 Pulse: 74 Current warfarin dose: 2.5mg daily (new start as of 03/16/18 - dose being titrated) - New dosing below based on new script for 1mg tablets Anticoagulation Warfarin Dose Instructions as of 03/24/2018Thu Sat New Dose 0.5 mg 0.5 mg 0.5 mg 0.5 mg 0.5 mg 0.5 mg 0.5 mg Description HOLD warfarin dose till after procedure on 03/31. Restart on 0.5mg daily when deemed safe by Dr. Perez. If you do not restart warfarin on 03/31, please call us at [phone] to reschedule. Received new referral from Dr. Perez. Patient started warfarin 5mg daily on 03/16 for valvular new onset A Fib with RVR. Goal 2.0-3.0 with indefinite duration. Echo on 07/13/17 showed EF 60%, moderate to severe pulmonary hypertension, 1-2+ recurrent regurgitation, aortic valve thickening and a probable rheumatic mitral valve with 3-4+ regurgitation and moderate stenosis. Patient seen on 03/19 for initial visit and INR was 4.9 after 3 doses of 5mg. Patient was instructed to hold dose for 2 days then take 2.5mg for 3 days. Today INR was >8.0 on POC machine. Therefore, sent her for lab confirmation. She denies s/sx bleeding. She was to begin a warfarin hold on 03/26 for MEERA/heart cath on 03/31; will begin hold today. Patient appears to be very sensitive to warfarin. Will request a 1mg prescription and restart at a dose of 0.5mg daily after 03/31 procedure. At last visit patient complained of LAMB and back pain. She used acetaminophen as instructed. She no longer has these complaints. Today she is hypotensive and complains of fatigue and weakness. Advised her to increase fluid intake. I sent a message to Dr. Perez to notify him of BP. Patient increased metoprolol tartrate dose from 12.5mg to 25mg BID last week as instructed by Dr. Perez because he heart rate was so high. This could contribute to lower BP today. Lab INR result came back at >8.00 (new lab analyzers do not read INR >8.0). I spoke to Dr. Walton over the phone regarding results. He recommended patient go to ED as INR is elevated and BP was low at today's OV. Called patient to give instructions to go to ED. She verbalized understanding and stated she was going the the [facility] ED. Medication list reviewed and reconciled. Rachel Palomares, PharmD CNOV Observed: 03/24/2018 Status: COMPLETED Source: [place] 9:45 AM CLINIC OTHER CAMPUS REPOSITORY Office Visit (AGINTMAC) GLORIA MATHEW ([id number]) 1940 F Date Time Provider Department 03/24/18 9:45 AM [facility] AGINTMAC During your visit today, we recorded the following information about you: Pulse Blood pressure 74/minute 84/62 RACHEL PALOMARES PHARMACIST 03/24/2018 1:43 PM Signed Referred by: Dr. Perez Indication: New onset valvular AFib, Rheumatic mitral regurgitation, Rheumatic mitral stenosis INR goal: 2.0-3.0 Duration: Indefinite Bridging assessment and details: Low risk of therapy interruption. CHADS-VASC = 3 (age, female) Consult agreement signed by physician. Patient has been notified verbally and/or in writing of the terms of the pharmacist-physician consult agreement for the anticoagulation clinic. Date: 03/19/2018 INR Date Value Ref Range Status 03/24/2018 >8.0 0.81 - 1.21 Final 03/19/2018 4.9 (A) 0.81 - 1.21 Final 03/24/18 1003 BP: 84/62 Pulse: 74 Current warfarin dose: 2.5mg daily (new start as of 03/16/18 - dose being titrated) - New dosing below based on new script for 1mg tablets Anticoagulation Warfarin Dose Instructions as of 03/24/2018 Sun Mon Thu Sat New Dose 0.5 mg 0.5 mg 0.5 mg 0.5 mg 0.5 mg 0.5 mg 0.5 mg Description HOLD warfarin dose till after procedure on 03/31. Restart on 0.5mg daily when deemed safe by Dr. Perez. If you do not restart warfarin on 03/31, please call us at [phone] to reschedule. Received new referral from Dr. Perez. Patient started warfarin 5mg daily on 03/16 for valvular new onset A Fib with RVR. Goal 2.0-3.0 with indefinite duration. Echo on 07/13/17 showed EF 60%, moderate to severe pulmonary hypertension, 1-2+ recurrent regurgitation, aortic valve thickening and a probable rheumatic mitral valve with 3-4+ regurgitation and moderate stenosis. Patient seen on 03/19 for initial visit and INR was 4.9 after 3 doses of 5mg. Patient was instructed to hold dose for 2 days then take 2.5mg for 3 days. Today INR was >8.0 on POC machine. Therefore, sent her for lab confirmation. She denies s/sx bleeding. She was to begin a warfarin hold on 03/26 for MEERA/heart cath on 03/31; will begin hold today. Patient appears to be very sensitive to warfarin. Will request a 1mg prescription and restart at a dose of 0.5mg daily after 03/31 procedure. At last visit patient complained of LAMB and back pain. She used acetaminophen as instructed. She no longer has these complaints. Today she is hypotensive and complains of fatigue and weakness. Advised her to increase fluid intake. I sent a message to Dr. Perez to notify him of BP. Patient increased metoprolol tartrate dose from 12.5mg to 25mg BID last week as instructed by Dr. Perez because he heart rate was so high. This could contribute to lower BP today. Lab INR result came back at >8.00 (new lab analyzers do not read INR >8.0). I spoke to Dr. Walton over the phone regarding results. He recommended patient go to ED as INR is elevated and BP was low at today's OV. Called patient to give instructions to go to ED. She verbalized understanding and stated she was going the the [facility] ED. Medication list reviewed and reconciled. Rachel Palomares, Reta Referring Provider: JEAN-PIERRE PEREZ [[id number]] Allergies As of Date: 03/24/2018 (No Known Allergies) Date Reviewed: 03/19/2018 Reviewed by: Ligia (Callie) CALLIE Bloom - Fully Assessed Reason for Visit: Anticoagulation [8] Visit Diagnoses:FPC current use of 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 [Z79.01] Paroxysmal atrial fibrillation (HCC) [I48.0] Order(s):INR FINGERSTICK B/O [5648257] Order #: [id number] PROTHROMBIN TIME/PT [SQPT] Order #: [id number] FUTURE Prescriptions as of 03/24/2018 Sig: CALCIUM CARBONATE 600 MG CALC* Take 600 mg by mouth once mirta* METOPROLOL TARTRATE 25 MG TAB* Take 25 mg by mouth twice mirta* PRAMIPEXOLE 0.25 MG TABLET Take 0.25 mg by mouth daily a* WARFARIN 5 MG TABLET TAKE 1 TABLET BY MOUTH EVERY * Patient taking differently: Take 2.5mg (1/2 tablet) daily ROPINIROLE 1 MG TABLET Take 2 mg by mouth daily at b* PROAIR HFA 90 MCG/ACTUATION A* CHOLESTYRAMINE (WITH SUGAR) 4* Take 1 Packet by mouth once d* GABAPENTIN 100 MG CAPSULE Take 200 mg by mouth once mirta* SIMVASTATIN 10 MG TABLET Take 10 mg by mouth daily at * ALENDRONATE 70 MG TABLET Take 70 mg by mouth once each* VITAMIN B COMPLEX TABLET Take 1 tablet by mouth once d* BIOTIN 5,000 MCG-SILICON DIOX* Take 1 tablet by mouth once d* MULTIVITAMIN TABLET Take 1 tablet by mouth once d* REQUIP ORAL Take 1 capsule by mouth once * VITAMIN B-12 ORAL Take 1 tablet by mouth. 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 Mitral valve stenosis [I05.0] Mitral valve regurgitation [I34.0] Paroxysmal atrial fibrillation (HCC) [I48.0] INVALID FOR* intermediate accountant (current) use of 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s [Z79.*INVALID FOR* intermediate accountant current use of 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 [Z79.01]*INVALID FOR* Follow-up and Disposition History Recorded Encounter Status:Closed by SAMMY (PHARMACIST)RACHEL on 03/24/18 Chart Close Cosign Required by: Yusuf Cast[] OBSOLETE Observed: 03/24/2018 Status: COMPLETED Source: [place] 12:00 AM CLINIC OTHER CAMPUS REPOSITORY Refill (AGINTMAC) GLORIA MATHEW ([id number]) 1940 F Date Time Provider Department 03/24/18 SAMMY (PHARMACIST), HEYDI During your visit today, we recorded the following information about you: RACHEL PALOMARES, PHARMACIST 03/24/2018 11:01 AM Signed Hello, I saw Mrs. Mathew in Coumadin clinic this morning. Her INR was >8.0 on the point of care machine, therefore, I sent her to the lab for INR level confirmation. She is scheduled for MEERA and heart cath on 03/31. She was instructed to hold warfarin until deemed safe to restart per your instructions after the procedure. The patient appears to be very sensitive to warfarin. She will likely require a very low dose. She will need a prescription for warfarin 1mg tablets. I have pended the order below. I will restart her on 0.5mg daily after the procedure on 03/31. Also, at today's visit, the patient had a BP of 84/62 and had symptoms of fatigue and weakness. I advised her to drink water to try to increase BP. She did start the increased dose of metoprolol tartrate (from 12.5 to 25mg BID) as instructed by your office. Her heart rate had improved and was 74 bpm today versus 150 at last visit on 03/19. Thank you, Rachel Palomares, PharmD Pending Prescriptions Disp Refills WARFARIN 1 MG TABLET 30 tablet 1 Sig: Take 0.5mg (1/2 tablet) daily. Allergies As of Date: 03/24/2018 (No Known Allergies) Date Reviewed: 03/19/2018 Reviewed by: Ligia Segovia) CALLIE Bloom - Fully Assessed Reason for Visit: Refill Request [94] Order(s):warfarin (COUMADIN) 1 mg tabletTake 0.5mg (1/2 tablet) daily.Disp: 30 tabletRfl: 1 Prescriptions as of 03/24/2018 Sig: WARFARIN 1 MG TABLET Take 0.5mg (1/2 tablet) daily. CALCIUM CARBONATE 600 MG CALC* Take 600 mg by mouth once mirta* METOPROLOL TARTRATE 25 MG TAB* Take 25 mg by mouth twice mirta* PRAMIPEXOLE 0.25 MG TABLET Take 0.25 mg by mouth daily a* WARFARIN 5 MG TABLET TAKE 1 TABLET BY MOUTH EVERY * Patient taking differently: Take 2.5mg (1/2 tablet) daily ROPINIROLE 1 MG TABLET Take 2 mg by mouth daily at b* PROAIR HFA 90 MCG/ACTUATION A* CHOLESTYRAMINE (WITH SUGAR) 4* Take 1 Packet by mouth once d* GABAPENTIN 100 MG CAPSULE Take 200 mg by mouth once mirta* SIMVASTATIN 10 MG TABLET Take 10 mg by mouth daily at * ALENDRONATE 70 MG TABLET Take 70 mg by mouth once each* VITAMIN B COMPLEX TABLET Take 1 tablet by mouth once d* BIOTIN 5,000 MCG-SILICON DIOX* Take 1 tablet by mouth once d* MULTIVITAMIN TABLET Take 1 tablet by mouth once d* REQUIP ORAL Take 1 capsule by mouth once * VITAMIN B-12 ORAL Take 1 tablet by mouth. 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 Mitral valve stenosis [I05.0] Mitral valve regurgitation [I34.0] Paroxysmal atrial fibrillation (HCC) [I48.0] INVALID FOR* intermediate accountant (current) use of 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s [Z79.*INVALID FOR* FPC current use of 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 [Z79.01]*INVALID FOR* Prescriptions ordered this encounter Disp Refills Start End WARFARIN 1 MG TABLET 30 t* 1 03/24/2018 Sig: Take 0.5mg (1/2 tablet) daily. Encounter Status:Closed by BRUNO WALTON on 03/24/18 HOSP Observed: 03/24/2018 Status: COMPLETED Source: [place] 12:00 AM CLINIC OTHER CAMPUS REPOSITORY Patient:Gloria Mathew MRN: <[id number]> Height:5' 2(1.575 m) Weight:141 lb (63.957 kg) Outpatient Medications as of 03/31/18: Cyanocobalamin (VITAMIN B-12) 1,000 mcg subl warfarin (COUMADIN) 1 mg tablet calcium carbonate (CALTRATE) 600 mg calcium (1,500 mg) tab metoprolol tartrate, short acting, (LOPRESSOR) 25 mg tablet pramipexole (MIRAPEX) 0.25 mg tablet warfarin (COUMADIN) 5 mg tablet PROAIR HFA 90 mcg/actuation inhaler cholestyramine (QUESTRAN) 4 gram packet gabapentin (NEURONTIN) 100 mg capsule simvastatin (ZOCOR) 10 mg tablet alendronate (FOSAMAX) 70 mg tablet Biotin-Silicon Oynk-B-Vadczukg 5,000 mcg-100 mg- 50 mg tab multivitamin tablet Cholecalciferol, Vitamin D3, 1,000 unit cap Admission/Clinic Administered Medications as of 03/31/18: heparin 1,000 Units in D5W 250 mL heparin 3,000 Units in NaCl 0.9% 500 mL irrigation heparin 1,000 Units in D5W 250 mL NaCl 0.9% 2-10 mL benzocaine-menthol 1 Lozenge (CEPACOL) sodium chloride 0.65 % 2 [place] (AYR, OCEAN) morphine 1 mg injection ondansetron (PF) 4 mg injection (ZOFRAN) dicyclomine 10 mg cap(s) (BENTYL) cholestyramine 4 g packet (QUESTRAN) acetaminophen 325-650 mg tab(s) (TYLENOL) digoxin 0.125 mg tab(s) (LANOXIN) furosemide 40 mg tab(s) (LASIX) gabapentin 200 mg cap(s) (NEURONTIN) pramipexole 0.25 mg tab(s) (MIRAPEX) metoprolol tartrate (short acting) 25 mg tab(s) (LOPRESSOR) atorvastatin 10 mg tab(s) (LIPITOR) 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 SERVICE DATE: 03/24/2018 SERVICE TIME: 7:34 PM ? PRIMARY CARE PHYSICIAN: Loree Small MD ? ? Subjective CHIEF COMPLAINT: Palpitations ? HPI: This is a 77 year old female with past medical history of mitral stenosis, severe MR, h/o rheumatic fever 60 years ago, atrial fibrillation presented to the ER with complains of palpitations. She was recently diagnosed with Afib on 03/13/18 and was started on metoprolol 12.5mg BID and coumadin 5 mg. Patient did not have control in her HR after which her metoprolol was increased to 25 bid on 03/19. She also follows up at coumadin clinic and her warfarin dose was decreased to 2.5 mg due to supra therapeutic INR. Today, on presentation to the ED she complained of palpitations and shortness of breath. She denies any chest pain/ pressure, dizziness, lightheadedness or episodes of syncope. She has had worsening shortness of breath on exertion since the past 2 weeks but denies orthopnea or PND at this time. Patient follows up with Dr. Perez and was scheduled for a left and right heart cath on 03/31, she was also scheduled for a mitral valve replacement surgery. She has not taken her coumadin dose today and was also told to hold her metoprolol due to low BP after which she came to the ER. ED course: In the ED she was found to be in Afib w RVR in 160s, complaining of dyspnea and palpitations. She was given lopressor 2.5 mg twice after which it improved to 140s. She was also loaded with digoxin. Patient was also found to have a supra therapeutic INR of 13.7 and was reversed with vit K. She has no active bleeding or h/o bleeding. She was then transferred to CVICU for further evaluation. ? FUNCTIONAL STATUS: Independent PAST MEDICAL HISTORY PAST MEDICAL HISTORY Diagnosis Date - Breast mass, right ? - IBS (irritable bowel syndrome) ? - Mitral valve regurgitation ? - Mitral valve stenosis ? - Pulmonary HTN (HCC) ? - Tricuspid regurgitation ? ? PAST SURGICAL HISTORY PAST SURGICAL HISTORY Procedure Laterality Date - BREAST BIOPSY ? ? - CHOLECYSTECTOMY HX ? 10/02/2011 - HYSTERECTOMY HX ? ? ? MARYELLEN/BLO - LEG SURGERY HX ? ? ? FAMILY HISTORY FAMILY HISTORY Problem Relation Age of Onset - Breast Cancer Mother ? ? stage III - Coronary Artery Disease Mother ? ? mother, uncle - Cancer Paternal Grandfather ? - Colon Cancer Maternal Grandmother ? - Diabetes Other ? ? uncle - Stroke Maternal Grandfather ? ? SOCIAL HISTORY Social History Substance Use Topics - Smoking status: Never Smoker - Smokeless tobacco: Never Used - Alcohol use No ? Prescriptions Prior to Admission ? (Not in a hospital admission) ALLERGIES ALLERGIES No Known Allergies ? COMPLETE REVIEW OF SYSTEMS: GENERAL: No weight loss, malaise or fevers HEENT: Negative for frequent or significant headaches, No changes in hearing or vision, no nose bleeds or other nasal problems NECK: Negative for lumps, goiter, pain and significant neck swelling RESPIRATORY: Positive for dyspnea on exertion, no cough, chest pain, wheezing. CARDIOVASCULAR: Positive for palpitations and dyspnea on exertion. No orthopnea, PND, leg swelling, chest pain/preseure, dizziness or episodes of syncope. GI: No nausea, vomiting, or diarrhea : No history of dysuria, frequency or incontinence MUSCULOSKELETAL: Negative for joint pain or swelling, back pain or muscle pain SKIN: Negative for lesions, rash, and itching PSYCH: Negative for sleep disturbance, mood disorder and recent psychosocial stressors NEURO: No history of headaches, syncope, paralysis, seizures or tremors ? ? Objective PHYSICAL EXAM: Physical Exam Performed: GENERAL: Alert, no distress, cooperative SKIN: Skin color, texture, turgor normal. No rashes or lesions. HEAD/SINUSES: No significant findings EYES: PERRLA, EOMI LUNGS: Bilateral crackles present in upper and lower lung zones. There are no wheezes. No stridor, accessory muscle use or tripoding. CARDIAC: S1, S2 irregular, tachycardic, systolic murmur present in mitral area. No lower extremity edema but elevated JVD 10 cm ABDOMEN: Abdomen soft, non-tender, BS normal, No masses or organomegaly EXTREMITIES: Extremities normal, no deformities, edema, clubbing or skin discoloration. Good capillary refill., No ulcers NEURO: Gait normal. Reflexes normal and symmetric. Sensation grossly intact PULSES: 2+ radial, 2+ carotid ? There were no vitals taken for this visit. ? DATA: Diagnostic tests reviewed for today's visit: Most recent labs and imaging results. WBC (thou/cmm) Date Value 03/24/2018 6.5 ? RBC (mil/cmm) Date Value 03/24/2018 4.15 ? HGB (g/dL) Date Value 03/24/2018 13.0 ? Hematocrit (%) Date Value 03/24/2018 37.9 ? MCV (fl) Date Value 03/24/2018 91.3 ? MCH (pg) Date Value 03/24/2018 31.3 ? MCHC (%) Date Value 03/24/2018 34.3 ? Platelet Count (thou/cmm) Date Value 03/24/2018 286 ? MPV (fl) Date Value 03/24/2018 10.3 ? Glucose (mg/dL) Date Value 03/24/2018 118 (H) ? BUN (mg/dL) Date Value 03/24/2018 28 (H) ? Creatinine (mg/dL) Date Value 03/24/2018 0.99 (H) ? Creatinine, Whole Blood (iSTAT) (mg/dL) Date Value 03/24/2018 1.0 ? Sodium (mEq/L) Date Value 03/24/2018 142 ? Potassium (mEq/L) Date Value 03/24/2018 4.3 ? Chloride (mEq/L) Date Value 03/24/2018 111 (H) ? CO2 (mEq/L) Date Value 03/24/2018 23 ? Protein, Total (g/dL) Date Value 07/05/2017 7.0 ? Albumin (g/dL) Date Value 07/05/2017 3.6 ? Calcium (mg/dL) Date Value 03/24/2018 8.9 ? Alkaline Phosphatase (U/L) Date Value 07/05/2017 81 ? Bilirubin, Total (mg/dL) Date Value 07/05/2017 1.0 ? AST (U/L) Date Value 07/05/2017 15 ? ALT (U/L) Date Value 07/05/2017 27 ? FELIPA (no units) Date Value 10/01/2017 SEE BELOW ? Rheumatoid Factor (IU/mL) Date Value 10/01/2017 <10.0 ? ? URINALYSIS No results found for: PH, SPGR, UGLUC, UBILI, UKET, UHB, UPROT, UROBIL, UWBC, SSA ? TTE(06/04/2017): Moderate to severe mitral stenosis 2-3+ MR Peak and mean gradients are 30 and 10 respectively. LVEF 55-6-% ? ? Assessment/Plan ? Paroxysmal Afib with RVR: - HR uncontrolled currently in 140s. - S/P lopressor 2.5 mg X 2 and digoxin. - Will start on amiodarone drip. - Will need cath once HR controlled. - Was on coumadin for valvular Afib but currently on hold due to supra therapeutic INR. - TTE ? Acute hypoxic respiratory failure: - Secondary to severe MR: - CXR findings of pulmonary edema, on 2 L NC currently. - Will wean as tolerated. - IV Lasix 40 mg X 1 - Will repeat TTE. - Was scheduled for mitral valve replacement surgery on 03/31. ? Supra therapeutic INR: - INR 13.7 during this admission. - S/P vit K in the ED. - Will check daily INRs. - Once therapeutic with place on heparin drip for Afib before undergoes surgery. ? Severe mitral stenosis and regurgitation: - Previous TTE on 06/04/17 with findings as above. - Repeat echo. - Will eventually need surgery for mitral valve replacement. ? Medication and Non-Pharmacologic VTE Prophylaxis/Anticoagulants 03/24/181929 vte pharmacologic prophylaxis contraindicated ([place]) 03/24/181929 pneumatic compression stockings ([place]) VTE Prophylaxis: VTE prophylaxis appropriate ? SIGNATURE: SHARATH Morales PATIENT NAME: Gloria Mathew DATE: March 24, 2018 TIME: 7:34 PM ? ? ?8:40 PM Lab on 03/24/2018 ? Revision History ? Detailed Report I personally saw and examined the patient. I reviewed the resident's note. I agree with the resident's assessment and plan unless otherwise noted. Critical Care Documentation: The patient has the following organ/system impairment(s): *Atrial fibrillation with rapid ventricular response with probability of significant hemodynamic compromise, necessitating cardioversion and requirement for intravenous AV blocking agents. 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 Will continue amiodarone gtt for now, dig load, and increase metoprolol to 25 mg TID INR is still supra therapeutic- Monitor, Hb stable, will start hep gtt once < 2 Significant mitral valve disease. There was an outpatient plan for LHC and RHC and MEERA for next week. Will diurese for now and possibly do the cath and MEERA on Thursday Continue cardiac tele Reviewed ECG and cardiac studies This patient has a high probability of sudden, clinically significant deterioration, which requires the highest level of physician preparedness to intervene urgently. I managed/supervised life or organ supporting interventions that required frequent physician assessment. I devoted my full attention to the direct care of this patient for the amount of time indicated below. Time I spent with family or surrogate(s) is included only if the patient was incapable of providing the necessary information or participating in medical decision making. Time devoted to teaching is not included. ?? Time spent providing critical care services: 40 minutes excluding procedures Bruno Walton MD, [facility] 10:49 AM Previous Version Bruno Walton MD, [facility] 03/25/2018 10:52 AM Signed CVICU PROGRESS NOTE SERVICE DATE: 03/25/2018 SERVICE TIME: 8:42 AM Admission Date: 03/24/2018 Subjective HPI: This is a 77 year old with past medical history of mitral stenosis, severe MR, h/o rheumatic fever 60 years ago, atrial fibrillation presented to the ER with complains of palpitations. She was recently diagnosed with Afib on 03/13/18 and was started on metoprolol 12.5mg BID and coumadin 5 mg. Patient did not have control in her HR after which her metoprolol was increased to 25 bid on 03/19. She also follows up at coumadin clinic and her warfarin dose was decreased to 2.5 mg due to supra therapeutic INR. Patient follows with Dr. Perez and was scheduled for a left and right heart cath on 03/31 and mitral valve replacement surgery. In the ED she was found to have Afib w RVR in 160s. She was given lopressor 2.5mg twice with some improvement and then loaded with digoxin. Patient also found to have INR of 13.7 and reversed with vit K. In CVICU she was started on an amiodarone drip. She was also given 1x lasix for acute hypoxic resp failure with evidence of pulmonary edema. Today her INR has improved to 3.95, remains tachycardic in 120s. Currently denies any chest pain, pressure or tightness, no shortness of breath or cough, no headache, lightheadedness or blurred vision. Objective VITAL SIGNS (last 24hrs min/max): Temp Av.7 ?C (98 ?F) Min: 36.6 ?C (97.9 ?F) Max: 36.7 ?C (98.1 ?F) Pulse Av.8 Min: 111 Max: 146 No Data Recorded Cuff BP Min: 95/78 Max: 133/83 Pain Score: 0/10 NET FLUID BALANCE Intake/Output Summary (Last 24 hours) at 03/25/18 1009 Last data filed at 03/25/18 0800 Gross per 24 hour Intake 357.6 ml Output 1875 ml Net -1517.4 ml MEDICATIONS Current Facility-Administered Medications: furosemide 40 mg injection (LASIX) 40 mg INTRAVENOUS ONCE digoxin 250 mcg injection (LANOXIN) 250 mcg INTRAVENOUS q 6 H metoprolol tartrate (short acting) 25 mg tab(s) (LOPRESSOR) 25 mg ORAL q 8 H rOPINIRole 2 mg tab(s) (REQUIP) 2 mg ORAL AT BEDTIME potassium chloride 80-120 mEq oral liquid 80-120 mEq ORAL/FEEDING TUBE PRN potassium chloride iv piggyback 20 mEq/100 mL 20 mEq INTRAVENOUS PRN magnesium sulfate in water 2 g in sterile water 50 ml 2 g INTRAVENOUS PRN sodium glycerophosphate 45 mmol in NaCl 0.9% 250 mL (GLYCOPHOS) 45 mmol INTRAVENOUS PRN calcium gluconate 4 g in NaCl 0.9% 250 mL 4 g INTRAVENOUS PRN perflutren lipid microspheres 1.1 mg/mL 1.3 mL injection (DEFINITY) 1.3 mL INTRAVENOUS DIRECTED PRN amiodarone 360 mg in D5W 200 mL (NEXTERONE) 0.5 mg/min INTRAVENOUS CONTINUOUS atorvastatin 10 mg tab(s) (LIPITOR) 10 mg ORAL AT BEDTIME INDWELLING CATHETERS: Lines, Drains, and Airways Line Peripheral 03/24/18 1454 Left Antecubital 20 Gauge less than 1 day Peripheral 03/24/18 1901 Assessment Short Right Antecubital 20 Gauge less than 1 day PHYSICAL EXAM: Physical exam performed HEENT: Oral Mucosa: Moist mucous membranes Feeding Tube: No Eyes: PERRLA Neck: +JVD; No adenopathy Cardiovascular: Irregular rhythm, systolic click and murmur best heard over lower left sternal boarder. Respiratory: Bilateral crackles in lower lung zones, breathing unlabored, speaking full clear sentences. Wearing home CPAP overnight No Data Recorded Abdomen: Soft, Nontender and Positive bowel sounds Extremities: Edema- No Peripheral Pulses- Present all extremities Capillary Refill- less than 3 seconds Skin: Abnormalities- No Breakdown- No Neurologic: Awake, oriented, Follows commands and Moving all extremities DATA: Diagnostic tests reviewed for today's visit: Most recent labs and imaging results. LABS: CBC, Coags, BMP, Mg, Phos Recent Labs 03/25/18 0535 03/24/18 1515 03/24/18 1440 03/24/18 1115 WBC -- -- 6.5 6.75 HB -- -- 13.0 12.2 HCT -- -- 37.9 38.0 PLT -- -- 286 268 INR 3.95* -- >13.70* >8.00* NA -- -- -- 142 K -- -- -- 4.3 CHLOR -- -- -- 111* CO2 -- -- -- 23 BUN -- -- -- 28* CREAT -- 1.0 -- 0.99* GLUC -- -- -- 118* CA -- 8.9 -- 8.5 Cardiac Enzymes CULTURES: N/A CXR FINDINGS: ? Small bilateral pleural effusions with mild coexisting bibasilar atelectasis and/or infiltrate. ? TTE(06/04/2017): Moderate to severe mitral stenosis 2-3+ MR Peak and mean gradients are 30 and 10 respectively. LVEF 55-6-% Assessment/Plan PROBLEMS: Paroxysmal Afib with RVR: - HR uncontrolled currently in 120s. - C/w amiodarone drip. - Complete digoxin load - Metoprolol 25mg TID - Will need cath once HR controlled. - Was on coumadin for valvular Afib but currently on hold due to supra therapeutic INR. - TTE ? Acute hypoxic respiratory failure: - Secondary to severe MR: - CXR findings of pulmonary edema, on 3 L NC currently. - Will give another lasix 40mg IV - Will wean as tolerated. - Will repeat TTE. - Was scheduled for mitral valve replacement surgery on 03/31. ? Supra therapeutic INR: - INR 3.95 - S/P vit K in the ED. - Will check daily INRs. - Once therapeutic with place on heparin drip for Afib before undergoes surgery. ? Severe mitral stenosis and regurgitation: - Previous TTE on 06/04/17 with findings as above. - Repeat echo. - Will eventually need surgery for mitral valve replacement. Obstructive sleep apnea - Continue home CPAP Medication and Non-Pharmacologic VTE Prophylaxis/Anticoagulants 03/25/18 0815 activity - [place]ize [place] ([place]) 03/24/18 2100 vte pharmacologic prophylaxis contraindicated ([place] 03/24/182099 pneumatic compression stockings ([place]) VTE Prophylaxis: Contraindicated supratherapeutic INR SIGNATURE: Reg Byrd DO PATIENT NAME: Gloria Mathew DATE: March 25, 2018 TIME: 8:42 AM PAGER/CONTACT #: [phone] I personally saw and examined the patient. I reviewed the resident's note. I agree with the resident's assessment and plan unless otherwise noted. Critical Care Documentation: The patient has the following organ/system impairment(s): *Atrial fibrillation with rapid ventricular response with probability of significant hemodynamic compromise, necessitating cardioversion and requirement for intravenous AV blocking agents. 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 Will continue amiodarone gtt for now, dig load, and increase metoprolol to 25 mg TID INR is still supra therapeutic- Monitor, Hb stable, will start hep gtt once < 2 Significant mitral valve disease. There was an outpatient plan for LHC and RHC and MEERA for next week. Will diurese for now and possibly do the cath and MEERA on Thursday Continue cardiac tele Reviewed ECG and cardiac studies This patient has a high probability of sudden, clinically significant deterioration, which requires the highest level of physician preparedness to intervene urgently. I managed/supervised life or organ supporting interventions that required frequent physician assessment. I devoted my full attention to the direct care of this patient for the amount of time indicated below. Time I spent with family or surrogate(s) is included only if the patient was incapable of providing the necessary information or participating in medical decision making. Time devoted to teaching is not included. ?? Time spent providing critical care services: 40 minutes excluding procedures Bruno Walton MD, [facility] 10:49 AM Previous Version Bruno Walton MD, [facility] 03/26/2018 10:21 AM Signed CVICU PROGRESS NOTE SERVICE DATE: 03/26/2018 SERVICE TIME: 8:29 AM Admission Date: 03/24/2018 Subjective HPI: This is a 77 year old with past medical history of mitral stenosis, severe MR, h/o rheumatic fever 60 years ago, atrial fibrillation presented to the ER with complains of palpitations. She was recently diagnosed with Afib on 03/13/18 and was started on metoprolol 12.5mg BID and coumadin 5 mg. Patient did not have control in her HR after which her metoprolol was increased to 25 bid on 03/19. She also follows up at coumadin clinic and her warfarin dose was decreased to 2.5 mg due to supra therapeutic INR. Patient follows with Dr. Perez and was scheduled for a left and right heart cath on 03/31 and mitral valve replacement surgery. In the ED she was found to have Afib w RVR in 160s. She was given lopressor 2.5mg twice with some improvement and then loaded with digoxin. Patient also found to have INR of 13.7 and reversed with vit K. In CVICU she was started on an amiodarone drip. She was also given 1x lasix for acute hypoxic resp failure with evidence of pulmonary edema. Patient remains in Afib, rate controlled in the 80s. INR 2.99. Patient seen resting in bed comfortable, denied any problems overnight. State her breathing is improved from yesterday. Denied any chest pain or tightness, lightheadedness, headache, blurred vision, shortness of breath or cough. Objective VITAL SIGNS (last 24hrs min/max): Temp Av.7 ?C (98 ?F) Min: 36.6 ?C (97.9 ?F) Max: 36.7 ?C (98.1 ?F) Pulse Av.8 Min: 111 Max: 146 No Data Recorded Cuff BP Min: 95/78 Max: 133/83 Pain Score: 0/10 NET FLUID BALANCE Intake/Output Summary (Last 24 hours) at 03/26/18 0834 Last data filed at 03/26/18 0523 Gross per 24 hour Intake 1134.8 ml Output 2925 ml Net -1790.2 ml MEDICATIONS Current Facility-Administered Medications: metoprolol tartrate (short acting) 25 mg tab(s) (LOPRESSOR) 25 mg ORAL q 8 H rOPINIRole 2 mg tab(s) (REQUIP) 2 mg ORAL AT BEDTIME potassium chloride 80-120 mEq oral liquid 80-120 mEq ORAL/FEEDING TUBE PRN potassium chloride iv piggyback 20 mEq/100 mL 20 mEq INTRAVENOUS PRN magnesium sulfate in water 2 g in sterile water 50 ml 2 g INTRAVENOUS PRN sodium glycerophosphate 45 mmol in NaCl 0.9% 250 mL (GLYCOPHOS) 45 mmol INTRAVENOUS PRN calcium gluconate 4 g in NaCl 0.9% 250 mL 4 g INTRAVENOUS PRN perflutren lipid microspheres 1.1 mg/mL 1.3 mL injection (DEFINITY) 1.3 mL INTRAVENOUS DIRECTED PRN amiodarone 360 mg in D5W 200 mL (NEXTERONE) 0.5 mg/min INTRAVENOUS CONTINUOUS atorvastatin 10 mg tab(s) (LIPITOR) 10 mg ORAL AT BEDTIME INDWELLING CATHETERS: Lines, Drains, and Airways Line Peripheral 03/24/18 1454 Left Antecubital 20 Gauge 1 day Peripheral 03/24/18 1901 Assessment Short Right Antecubital 20 Gauge 1 day PHYSICAL EXAM: Physical exam performed HEENT: Oral Mucosa: Moist mucous membranes Feeding Tube: No Eyes: PERRLA Neck: No JVD; No adenopathy Cardiovascular: Irregular rhythm, systolic click and murmur best heard over lower left sternal boarder. Respiratory: CTAB, breathing unlabored, speaking full clear sentences. On RA No Data Recorded Abdomen: Soft, Nontender and Positive bowel sounds Extremities: Edema- No Peripheral Pulses- Present all extremities Capillary Refill- less than 3 seconds Skin: Abnormalities- No Breakdown- No Neurologic: Awake, oriented, Follows commands and Moving all extremities DATA: Diagnostic tests reviewed for today's visit: Most recent labs and imaging results. LABS: CBC, Coags, BMP, Mg, Phos Recent Labs 03/26/18 0530 03/25/18 0535 03/24/18 1515 03/24/18 1440 03/24/18 1115 WBC 7.10 -- -- 6.5 6.75 HB 12.5 -- -- 13.0 12.2 HCT 36.5 -- -- 37.9 38.0 PLT 254 -- -- 286 268 INR -- 3.95* -- >13.70* >8.00* NA 140 -- -- -- 142 K 3.4* -- -- -- 4.3 CHLOR 105 -- -- -- 111* CO2 25 -- -- -- 23 BUN 24* -- -- -- 28* CREAT 1.08* -- 1.0 -- 0.99* GLUC 90 -- -- -- 118* CA 8.2* -- 8.9 -- 8.5 INR: 2.99 Cardiac Enzymes CULTURES: N/A CXR FINDINGS: ? Small bilateral pleural effusions with mild coexisting bibasilar atelectasis and/or infiltrate. ? TTE(06/04/2017): Moderate to severe mitral stenosis 2-3+ MR Peak and mean gradients are 30 and 10 respectively. LVEF 55-6-% Assessment/Plan PROBLEMS: Paroxysmal Afib with RVR: - HR controlled in 80s - D/c amiodarone drip. - Metoprolol 25mg TID - Start Digoxin 125mcg daily - Was on coumadin for valvular Afib but currently on hold due to supra therapeutic INR. - Hgb stable - Start heparin gtt when INR <2 - MEERA, LHC and RHC on Thursday ? Acute hypoxic respiratory failure: Resolved - Secondary to severe MR: - Breathing improved, on RA - TTE - Was scheduled for LHC RHC MEERA for 03/31 ? Supra therapeutic INR: - INR 2.99 - S/P vit K in the ED. - Will check daily INRs. - Once therapeutic with place on heparin drip for Afib before undergoes surgery. ? Severe mitral stenosis and regurgitation (Rheumatic): - Previous TTE on 06/04/17 with findings as above. - MEERA on Thursday. - Lasix 40mg PO daily - Will need surgery for mitral valve replacement. Obstructive sleep apnea - Continue home CPAP Medication and Non-Pharmacologic VTE Prophylaxis/Anticoagulants 03/25/18 0815 activity - [place]ize [place] ([place]) 03/24/18 2100 vte pharmacologic prophylaxis contraindicated ([place]) 03/24/18 2100 pneumatic compression stockings ([place]) VTE Prophylaxis: Contraindicated supratherapeutic INR SIGNATURE: Reg Byrd DO PATIENT NAME: Gloria Mathew DATE: March 26, 2018 TIME: 8:28 AM PAGER/CONTACT #: [phone] I personally saw and examined the patient. I reviewed the resident's note. I agree with the resident's assessment and plan unless otherwise noted. Plan: Stop amiodarone gtt Start daily digoxin 125 mcg daily and continue metoprolol 25 TID. HR <110 is acceptable Monitor INR, and if < 2, will start hep gtt There was a plan for outpatient MEERA/LHC/RHC for next week in preparation for mitral valve surgery, will plan for Thursday Switch to PO lasix 40 mg daily Transfer to cardiac tele later today Bruno Walton MD, [facility] 10:20 AM Previous Version Yue Byrd PA-C 03/26/2018 12:34 PM Signed ICU TRANSFER OF CARE NOTE SERVICE DATE: 03/26/2018 SERVICE TIME: 11:59 AM Pt is a 77 yo female with PMH of mitral stenosis/ regurgitation, rheumatic fever, and atrial fibrillation presented to anticoagulation clinic on 03/24/2018 and was found to have abnormal INR and tachycardia. INR was > 13.7 and pt rhythm was afib RVR > patient admitted to CVICU under Dr. Seth. Pt was treated with PO vitamin K, amiodarone gtt, metoprolol, digoxin. Mild pulmonary edema found on admission requiring supplemental O2 > treated with lasix. 03/26/2018 amiodarone gtt was DC and will be continued on BB/ digoxin for rate control. Pt is to undergo heart catheterization on 03/29/2018 alongside MEERA for further evaluation of valve Dz. Daily PO lasix added. Patient to be transferred to Telemetry Floor today under the care of Dr. Boston with IM service. Signout Given To: Yvonne Campbell CNP Rg Issues: Afib RVR Supratherapeutic INR Rheumatic mitral Dz (stenosis AND regurgitation) > Pending MEERA 03/29/2018 TRISH SIGNATURE: Yue Byrd PA-C PATIENT NAME: Gloria Mathew DATE: March 26, 2018 TIME: 11:59 AM PAGER/CONTACT #: [phone] Fiona Adams RN, RN 03/26/2018 12:06 PM Signed CARE MANAGEMENT: ASSESSMENT AND DISCHARGE PLAN SERVICE DATE: 03/26/2018 SERVICE TIME: 12:02 PM PRIMARY CARE PHYSICIAN: Loree Small MD ADMISSION STATUS: Inpatient Needs Prior to Discharge: To Be Determined MEDICAL: Patient/Pulp [employer]inder Stated Goals: To have reduction in symptoms To improve my functional status To return home to life as it was Health Insurance: [employer] PPO None Health Issues Impacting Discharge Plan: Chronic Afib, needs valve surgery Last Admission Date: none Is this Within the Past 30 days? No Advance Directive: Current Advance Directive: None Director Of [facility] Attempted to Assist with AD Completion: Yes Action: Education Provided;Other: See Comment (information materials provided) Health Literacy: 1. How often do you need to have someone help you when you read instructions, pamphlets, or other written material from your doctor or pharmacy? Never - 1 2. How confident are you filling out medical forms by yourself? Extremely - 1 If Patient scores > 3 on either question, the following interventions were put into place: Patient did not score > 3 FUNCTIONAL AND COGNITIVE/BEHAVIORAL PRIOR TO ADMISSION: Baseline Mental Status: Alert AND Oriented, Person, Place , Time and Situation Functional Status: Independent Does Patient Currently Receive Any Community Services or Home Care? None Equipment Prior to Admission: Bi-level Positive Airway Pressure/Continuous Positive Airway Pressure Has the Patient Been in a Senior Living Facility in the Past 30 days? No SOCIAL: Living Arrangement: Home Lives With: Spouse Financial Resources: Retired Primary Contact: Extended Emergency Contact Information Primary Emergency Contact: Isabel Mathew Address: [address] [place] [address] Relation: Spouse Supportive: Yes Other Important Patient Contacts: None Caregiver Assessment: Caregiver is ready, willing and able to meet the patient's needs as recommended by the inter-professional team? Yes Patient's transition needs and plan for meeting these needs: tbd Does the patient have an acute stroke diagnosis, or has the patient had a stroke during this admission? No Medication Adherence: I am convinced of the importance of my prescription medication: Agree completely - 0 I worry that my prescription medication will do more harm than good to me Disagree completely - 0 I feel financially burdened by my [id number] expenses for my prescription medication: Disagree mostly -0 Patient is categorized as low risk < 2 Are you interested in bedside delivery of your medications? No Food Concerns: In the Last Month, Have You had Trouble Getting Food? No trouble getting food During the Last Month, Have You Worried Whether Your Food Would Run Out Before You Had Enough Money to Buy More? No Is the Patient Psychosocially Complex? No ASSESSMENT AND PLAN: Medical Needs: 2 or more chronic diseases Psychosocial Needs: None FREEDOM OF CHOICE EXPLAINED: N/A POTENTIAL TRANSITION PLANS Home Met with pt at bedside and explain CM role. 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 Plan is to return home at disch. Previously scheduled for valve surgery 03/31. Will cont to follow for transitional care needs. SIGNATURE: Fiona Adams RN PATIENT NAME: Gloria Mathew DATE: March 26, 2018 TIME: 12:01 PM PAGER/CONTACT #: [phone] MELLY QUINN, PROPERTY MANAGEMENT COORDINATOR 03/26/2018 2:21 PM Signed MEDICATION HISTORY AND MEDICATION RECONCILIATION Patient Name:José Miguel Mathew : 1940 Source of history:Patient: Reliability of source: Appears reliable, clearly identified: Medication name, Medication dose, Medication frequency and Timing of last dose and Pharmacy records: [facility] [phone], [facility] [phone] Medication Nonadherence Identified: Patient unsure how to appropriately time her cholestyramine to avoid interaction with her other medications. The above information represents the best possible medication history: Yes Reconciliation completed? Yes Discussed with LIP, plans to add gabapentin 200 mg HS and pramipexole 0.25 mg HS and discontinue ropinirole 2 mg based on updated medication history Additional comments: Medications Removed from [facility] Med List: vitamin B12 (duplicate), ropinirole (no longer taking) Medications Modified on [facility] Med List: Alendronate: 1 tablet every Thursday, proair: 2 puffs Q6 PRN SOB Other: -Patient does not regularly take supplements including biotin, cholecalciferol, vitamin B12. -Patient has been using cholestyramine intermittently due to changes in her medications leaving her unsure when to best time the cholestyramine to avoid interactions with her other medications. Last dose ~1 week ago. -Patient was using warfarin 2.5 mg daily prior to admission, which resulted in supratherapeutic INR. Plan per [facility] to reduce warfarin to 0.5 mg daily following MVR. Allergies: ALLERGIES No Known Allergies Preferred Pharmacy: [facility] [phone] and [id number] Current [facility] Medications: Prior to Admission medications as of 03/26/18 1412 Medication Sig Last Dose Taking Cyanocobalamin (VITAMIN B-12) 1,000 mcg subl Dissolve 1 tablet under the tongue once daily. Yes warfarin (COUMADIN) 1 mg tablet Take 0.5mg (1/2 tablet) daily. calcium carbonate (CALTRATE) 600 mg calcium (1,500 mg) tab Take 600 mg by mouth once daily. metoprolol tartrate, short acting, (LOPRESSOR) 25 mg tablet Take 25 mg by mouth twice daily. pramipexole (MIRAPEX) 0.25 mg tablet Take 0.25 mg by mouth daily at bedtime. warfarin (COUMADIN) 5 mg tablet TAKE 1 TABLET BY MOUTH EVERY DAY Patient taking differently: Take 2.5mg (1/2 tablet) daily PROAIR HFA 90 mcg/actuation inhaler 2 Puffs every 6 hours as needed for Wheezing/Shortness of Breath. cholestyramine (QUESTRAN) 4 gram packet Take 1 Packet by mouth once daily. gabapentin (NEURONTIN) 100 mg capsule Take 200 mg by mouth daily at bedtime. simvastatin (ZOCOR) 10 mg tablet Take 10 mg by mouth daily at bedtime. alendronate (FOSAMAX) 70 mg tablet Take 70 mg by mouth every Thursday. Biotin-Silicon Eowj-C-Robkbuox 5,000 mcg-100 mg- 50 mg tab Take 1 tablet by mouth once daily. multivitamin tablet Take 1 tablet by mouth once daily. Cholecalciferol, Vitamin D3, 1,000 unit cap Take 1,000 Units by mouth once daily. MELLY QUINN, PROPERTY MANAGEMENT COORDINATOR March 26, 2018 2:13 PM Tucker Mohan APRN.TOM 03/27/2018 10:25 AM Addendum PROGRESS NOTE CARDIOLOGY SERVICE SERVICE DATE: 03/27/2018 SERVICE TIME: 0945 AM Subjective INTERIM HISTORY: f/u for valvular afib, severe MS and MR. INR 3.03 today. Daily INR. Plan for MEERA on Thursday +/- R/L heart cath depending on INR. Could be Thursday as well. Will need hep gtt once INR <2.0. Objective PHYSICAL EXAM: Body mass index is 25.99 kg/m?. O2 Therapy: Room Air No Data Recorded Patient Vitals for the past 24 hrs: BP Temp Temp src Pulse Resp SpO2 Weight 03/27/18 0751 106/59 36.6 ?C (97.9 ?F) Temporal Art 102 18 93 % - 03/27/18 0626 - - - - - - 64.5 kg (142 lb 1.6 oz) 03/27/18 0531 118/62 - - 114 - 95 % - 03/27/18 0257 104/64 36.7 ?C (98.1 ?F) Oral 108 18 97 % - 03/26/18 2338 92/58 37.2 ?C (99 ?F) Oral 101 19 96 % - 03/26/18 2135 101/55 36.7 ?C (98.1 ?F) Oral 96 20 94 % - 03/26/18 2000 98/59 - - 101 26 96 % - 03/26/18 1900 99/73 36.8 ?C (98.2 ?F) Temporal Art 99 25 96 % - 03/26/18 1800 106/69 - - 95 21 96 % - 03/26/18 1700 110/60 - - 94 21 96 % - 03/26/18 1600 104/56 - - 108 21 95 % - 03/26/18 1500 90/55 36.6 ?C (97.9 ?F) - 113 24 95 % - 03/26/18 1400 97/62 - - 114 24 96 % - 03/26/18 1300 134/109 - - 117 26 95 % - 03/26/18 1200 114/67 - - 103 27 95 % - 03/26/18 1100 105/70 36.2 ?C (97.2 ?F) - 86 19 96 % - 03/26/18 1030 93/57 - - 87 19 92 % - Pleasant, comfortable, not in acute distress. Awake, alert, oriented times 3. Moves all extremities. SKIN: No rash or lumps. HEENT: Normocephalic, face symmetrical. NECK: Supple, no JVD, no carotid bruit, no thyromegaly. LUNGS: Clear to auscultation bilaterally. CARDIAC: irregular, S1 and S2, no S3 or S4, no additional heart sounds or murmurs. ABDOMEN: Soft, nontender, bowel sounds present. EXTREMITIES: No edema. PULSES: Peripheral pulses present. MEDICATIONS: Current hospital medications: dicyclomine 10 mg cap(s) (BENTYL) 10 mg ORAL TID PRN cholestyramine 4 g packet (QUESTRAN) 4 g ORAL DAILY digoxin 0.125 mg tab(s) (LANOXIN) 0.125 mg ORAL DAILY furosemide 40 mg tab(s) (LASIX) 40 mg ORAL DAILY gabapentin 200 mg cap(s) (NEURONTIN) 200 mg ORAL AT BEDTIME pramipexole 0.25 mg tab(s) (MIRAPEX) 0.25 mg ORAL AT BEDTIME metoprolol tartrate (short acting) 25 mg tab(s) (LOPRESSOR) 25 mg ORAL q 8 H atorvastatin 10 mg tab(s) (LIPITOR) 10 mg ORAL AT BEDTIME DATA: Diagnostic tests reviewed for today's visit: Most recent labs and imaging results. Past 72 Hour Labs: Recent Labs 03/27/18 0330 03/26/18 1400 03/24/18 1440 TROPI -- -- -- 0.00 WBC 11.60* -- < > 6.5 RBC 4.48 -- < > 4.15 HB 13.6 -- < > 13.0 HCT 40.3 -- < > 37.9 MCV 90.0 -- < > 91.3 MCH 30.4 -- < > 31.3 MCHC 33.7 -- < > 34.3 PLT 277 -- < > 286 MPV 9.5 -- < > 10.3 GLUC 107* -- < > -- BUN 19* -- < > -- CREAT 0.86 -- < > -- NA 138 -- < > -- K 3.7 -- < > -- CHLOR 106 -- < > -- CO2 23 -- < > -- CA 8.5 -- < > -- PTSEC 29.0* -- < > >120.0* INR 3.03* -- < > >13.70* MG -- 1.6 -- -- < > = values in this interval not displayed. Last Lab Drawn: Triglyceride 103 03/26/2018 HDL Cholesterol 25 03/26/2018 LDL Calculated 48 03/26/2018 Cholesterol, Total 94 03/26/2018 Assessment/Plan Please see previous note for more detail... Paroxysmal afib with rvr-rates mostly controlled 90-110 on metoprolol 25 tid and dig 125 daily. S/p amio gtt. Asymptomatic with rates. Holding coumadin for planned R/L heart cath for severe mitral disease. Once INR <2.0 should start hep gtt. Had been planning on outpt MEERA and R/L cath, but had supratherpeutic inr. WIll shoot for either Thursday or Thursday depending on INR. Supratherapeutic INR-s/p vit k in ER. Trending down. 3.03 today. Continue to hold coumadin Severe MS and MR- see above. MEERA and r/l heart cath. MEERA on Thursday +/- cath depending on INR. Make NPO at [facility] in case INR low enough. C/w PO lasix for now. TRISH-per primary Will follow. D/w Dr. Walton SIGNATURE: Tucker Mohan APRN.DITTO MACHINE OPERATOR PATIENT NAME: Gloria Mathew DATE: March 27, 2018 TIME: 10:17 AM PAGER/CONTACT #: [phone] Previous Version Oj Phan MD 03/27/2018 12:42 PM Signed DEPARTMENT OF HOSPITAL MEDICINE PROGRESS NOTE SERVICE DATE: 03/27/2018 SERVICE TIME: 12:30 PM Hospital Medicine/Primary Attending: Oj Phan MD NIGHT AND WEEKEND COVERAGE: After 7pm please page [phone] CHIEF COMPLAINT: a fib with rvr.. ICU transfer SUBJECTIVE: Reports pain in left flank>LUQ for the last day or two. Nausea. No change in BM. No dysuria or hematuria. No fever or chills. HR better. No dyspnea or chest pain. OBJECTIVE: PHYSICAL EXAM: BP 101/68 Pulse 109 Temp (Src) 98.4 (Temporal Artery) Resp 18 Ht 5' 2 (1.58m) Wt 142 lb 1.6 oz (64.5kg) SpO2 93% BMI 25.98 kg/(m2). GENERAL: Alert, no distress, cooperative, SKIN: Skin color, texture, turgor normal. No rashes or lesions. OROPHARYNX: Lips, mucosa, and tongue normal. Teeth and gums normal. Oropharynx normal. LUNGS: Lungs clear to auscultation, Air entry good, Unlabored breathing. CARDIAC: Normal S1 and S2; no rubs, or gallops, systolic murmur at mitral area ABDOMEN: Abdomen soft, mild tenderness over Left CVA, non- distended, BS normal EXTREMITIES: Normal, no deformities, edema, clubbing or skin discoloration. NEURO: Grossly normal cognition, motor function, and cranial nerves III-XII MEDICATIONS: Current hospital medications: dicyclomine 10 mg cap(s) (BENTYL) 10 mg ORAL TID PRN cholestyramine 4 g packet (QUESTRAN) 4 g ORAL DAILY [START ON 03/29/2018] NaCl 0.9% iv infusion 50 mL/hr INTRAVENOUS CONTINUOUS acetaminophen 325-650 mg tab(s) (TYLENOL) 325-650 mg ORAL q 6 H PRN digoxin 0.125 mg tab(s) (LANOXIN) 0.125 mg ORAL DAILY furosemide 40 mg tab(s) (LASIX) 40 mg ORAL DAILY gabapentin 200 mg cap(s) (NEURONTIN) 200 mg ORAL AT BEDTIME pramipexole 0.25 mg tab(s) (MIRAPEX) 0.25 mg ORAL AT BEDTIME metoprolol tartrate (short acting) 25 mg tab(s) (LOPRESSOR) 25 mg ORAL q 8 H atorvastatin 10 mg tab(s) (LIPITOR) 10 mg ORAL AT BEDTIME DATA: Diagnostic tests reviewed for today's visit: CBC, Coags, BMP, Mg, Phos Recent Labs 03/27/18 0330 03/26/18 1400 03/26/18 0845 03/26/18 0530 03/25/18 0535 03/24/18 1515 03/24/18 1440 WBC 11.60* -- -- 7.10 -- -- 6.5 HB 13.6 -- -- 12.5 -- -- 13.0 HCT 40.3 -- -- 36.5 -- -- 37.9 PLT 277 -- -- 254 -- -- 286 INR 3.03* -- 2.99* -- 3.95* -- >13.70* NA 138 -- -- 140 -- -- -- K 3.7 -- -- 3.4* -- -- -- CHLOR 106 -- -- 105 -- -- -- CO2 23 -- -- 25 -- -- -- BUN 19* -- -- 24* -- -- -- CREAT 0.86 -- -- 1.08* -- 1.0 -- GLUC 107* -- -- 90 -- -- -- CA 8.5 -- -- 8.2* -- 8.9 -- MG -- 1.6 -- -- -- -- -- Liver Function, Amylase, AND Lipase Cardiac Enzymes Heme: No results for input(s): RETICP, ABSRETIC, LD, JOHNIE, FE, TIBC, TRANSFERSAT in the last 24 hours. No results found for: UALBCR Assessment/Plan Patient Active Hospital Problem List: A-fib (HCC) (03/24/2018) ASSESSMENT: 1. Left flank pain: d/d pyelonephritis/ urinary calculus/bowel related/ IBS related. S/p c scope in February,- some benign polyps otherwise negative per patient. 2. Paroxysmal A fib with RvR: HR better controlled with dig and metoprolol. Treatment with amiodarone- stopped. INR supratherapeutic. Coumadin on hold. Plan to start heparin gtt once INR<2 in anticipation of MEERA/ RHC on Thursday. 3. Severe MS and MR: MEERA and R/L HC on Thursday. 4. IBS: 5. Remote hx of uterine cancer s/p hsyterectomy and chemo/ rad 30 years or so ago. PLAN: UA and Cx. CT a/p Continue rate controlling meds. Monitor INR. Start heparin gtt once INR<2 Dicyclomine as needed for abdominal pain/ IBS (may worsen tachycardia). VTE Prophylaxis: Patient is already anti-coagulated. Disposition: to be determined. Likely home Plan of care discussed with: Patient SIGNATURE: Oj Phan MD PATIENT NAME: Gloria Mathew DATE: March 27, 2018 TIME: 12:30 PM PAGER/CONTACT #: [phone] Diana Shoemaker RN, RN 03/27/2018 5:06 PM Signed Nursing Progress Note Patient Name: Gloria Mathew Patient Location: [place] [id number]* Daily Note: 0900 Pt c/o headache and ABD pain, Dr. Phan placed orders for GI meds and Tylenol and an ABD CT scan. 1615 Pt. Afib RVR sustained HR 140s RN called Dr. Walton who placed order for 5mg IVP Lopressor. This note was completed by: MARCELLA Hunter DO, MBA 03/28/2018 10:57 AM Signed Urology Inpatient Consultation 03/24/2018 HISTORY OF PRESENT ILLNESS: The patient is a 77 year old female new to our service presented yesterday with palpitations and found to be in A fib with RVR, supratherapeutic INR 13.7, and respiratory failure. CT showed mild left sided hydro with perinephric stranding. Patient with left flank pain and urology consulted for recommendations. Patient denies history of nephrolithiasis or seeing a urologist in the past. States that she started having left flank pain after admission but it is much better now with tylenol. Denies fevers, chills, nausea, vomiting, dysuria, hematuria. PAST MEDICAL HISTORY: PAST MEDICAL HISTORY Diagnosis Date - Breast mass, right - IBS (irritable bowel syndrome) - Mitral valve regurgitation - Mitral valve stenosis - Pulmonary HTN (HCC) - Tricuspid regurgitation PAST SURGICAL HISTORY: PAST SURGICAL HISTORY Procedure Laterality Date - BREAST BIOPSY - CHOLECYSTECTOMY HX 10/02/2011 - HYSTERECTOMY HX MARYELLEN/BLO - LEG SURGERY HX ALLERGIES: ALLERGIES No Known Allergies HOME MEDICATIONS: Prescriptions Prior to Admission: Cyanocobalamin (VITAMIN B-12) 1,000 mcg subl Dissolve 1 tablet under the tongue once daily. Disp: Rfl: warfarin (COUMADIN) 1 mg tablet Take 0.5mg (1/2 tablet) daily. Disp: 30 tablet Rfl: 1 calcium carbonate (CALTRATE) 600 mg calcium (1,500 mg) tab Take 600 mg by mouth once daily. Disp: Rfl: metoprolol tartrate, short acting, (LOPRESSOR) 25 mg tablet Take 25 mg by mouth twice daily. Disp: Rfl: Taking pramipexole (MIRAPEX) 0.25 mg tablet Take 0.25 mg by mouth daily at bedtime. Disp: Rfl: warfarin (COUMADIN) 5 mg tablet TAKE 1 TABLET BY MOUTH EVERY DAY (Patient taking differently: Take 2.5mg (1/2 tablet) daily) Disp: 90 tablet Rfl: 3 PROAIR HFA 90 mcg/actuation inhaler 2 Puffs every 6 hours as needed for Wheezing/Shortness of Breath. Disp: Rfl: Taking cholestyramine (QUESTRAN) 4 gram packet Take 1 Packet by mouth once daily. Disp: Rfl: Taking gabapentin (NEURONTIN) 100 mg capsule Take 200 mg by mouth daily at bedtime. Disp: Rfl: Taking simvastatin (ZOCOR) 10 mg tablet Take 10 mg by mouth daily at bedtime. Disp: Rfl: Taking alendronate (FOSAMAX) 70 mg tablet Take 70 mg by mouth every Thursday. Disp: Rfl: Taking Biotin-Silicon Dagg-Q-Acoetmzh 5,000 mcg-100 mg- 50 mg tab Take 1 tablet by mouth once daily. Disp: Rfl: multivitamin tablet Take 1 tablet by mouth once daily. Disp: Rfl: Taking Cholecalciferol, Vitamin D3, 1,000 unit cap Take 1,000 Units by mouth once daily. Disp: Rfl: Taking FAMILY HISTORY: Family History Problem Relation Age of Onset - Breast Cancer Mother stage III - Coronary Artery Disease Mother mother, uncle - Cancer Paternal Grandfather - Colon Cancer Maternal Grandmother - Diabetes Other uncle - Stroke Maternal Grandfather Social History: Tobacco Use: Never Alcohol Use: No ROS: Constitutional: negative for chills and fevers HEENT: no blurry vision or eye redness Respiratory: negative for hemoptysis and shortness of breath Cardiovascular: negative for dyspnea and syncope Gastrointestinal: negative for jaundice, nausea and vomiting Genitourinary:negative for dysuria and hematuria Hematologic/lymphatic: negative for bleeding Integumentary: no new bruises or lesions Musculoskeletal:negative for muscle weakness Neurological: negative for coordination problems and seizures All other systems negative PHYSICAL EXAM: VITALS: 03/27/18 2342 03/28/18 0542 03/28/18 0639 03/28/18 0749 BP: 98/50 98/83 103/59 Pulse: 112 108 98 Resp: 20 20 Temp: 36.5 ?C (97.7 ?F) 36.7 ?C (98.1 ?F) 36.8 ?C (98.2 ?F) TempSrc: Oral Oral Oral SpO2: 97% 95% 91% Weight: 63.5 kg (140 lb) Height: General: Alert, in no acute distress Head: Normocephalic, atraumatic Neck: supple, trachea is midline, no obvious masses Respiratory: normal effort, no audible wheezes Cardiovascular: irregular pulse and no cyanosis Musculoskeletal: moving all extremities, normal tone Skin: warm and dry Psych: normal mood and affect, oriented Abdomen: soft, non distended, non tender, no organomegaly, no hernias : No CVA tenderness DATA: LABS: BMP: . Glucose (mg/dL) Date Value 03/28/2018 83 Potassium (mEq/L) Date Value 03/28/2018 3.5 Sodium (mEq/L) Date Value 03/28/2018 139 Chloride (mEq/L) Date Value 03/28/2018 103 CO2 (mEq/L) Date Value 03/28/2018 30 Creatinine (mg/dL) Date Value 03/28/2018 0.95 BUN (mg/dL) Date Value 03/28/2018 16 Anion Gap (no units) Date Value 03/28/2018 10 Calcium (mg/dL) Date Value 03/28/2018 8.6 CBC: HGB (g/dL) Date Value 03/28/2018 14.2 Hematocrit (%) Date Value 03/28/2018 42.2 WBC (thou/cmm) Date Value 03/28/2018 10.05 Platelet Count (thou/cmm) Date Value 03/28/2018 284 Urinalysis: Specific [place], Ur Date Value Ref Range Status 03/27/2018 1.010 1.005 - 1.030 Final Glucose, Urine Date Value Ref Range Status 03/27/2018 NEGATIVE Negative mg/dL Final Bilirubin, Urine Date Value Ref Range Status 03/27/2018 NEGATIVE Negative Final Ketones, Urine Date Value Ref Range Status 03/27/2018 NEGATIVE Negative mg/dL Final Protein, Urine Date Value Ref Range Status 03/27/2018 NEGATIVE Negative mg/dL Final Urobilinogen, Urine Date Value Ref Range Status 03/27/2018 0.2 0.0 - 1.0 EU/dL Final Urine Culture: RADIOLOGY: CT A/P 03/27 IMPRESSION: 1. ?Mild/moderate left hydronephrosis with perinephric and periureteral fat stranding. No obstructing ureteral calculus or mass. ?The appearance may be secondary to a recently passed stone and given the degree of stranding around the left kidney, the possibility of forniceal rupture is considered. ?There are at least 4 small nonobstructing left renal calculi. ? 2. Small bilateral pleural effusions (right larger than left) with compressive atelectasis. ? 3. ?Normal appendix. Pancolonic diverticulosis without acute diverticulitis. IMPRESSION: 77 year old female with mild left hydro with perinephric stranding, left non-obstructing renal calculi - Slight leukocytosis at 10 - Cr wnl at 0.95 - UA negative PLAN: - No obvious obstruction on CT, UA (-), Cr wnl, findings could be from recently passed calculus vs intrarenal pelvis and old pyelonephritis - Will try conservative management for now - Pain/nausea control - Check PVR, bladder distended on CT - If patient has persistent pain or kidney function worsens may consider ureteral stent placement, will make NPO @ [facility] incase OR needed tomorrow - Outpatient follow up for renal calculi - Discussed with Dr. Frederick Thank you for allowing me to participate in the care of your patient Jake [facility] PGY-2 [phone] Attending Note I evaluated the patient and personally participated in the rg components. I agree with the resident's findings and plan as documented and have discussed the case and management of the patient's care with the resident. Check PVR Asymptomatic at this time Signature: Scooter Frederick DO, MBA Date: 03/28/2018 Time: 10:56 AM Previous Version Oj Phan MD 03/28/2018 11:00 AM Signed DEPARTMENT OF HOSPITAL MEDICINE PROGRESS NOTE SERVICE DATE: 03/28/2018 SERVICE TIME: 10:47 AM Hospital Medicine/Primary Attending: Oj Phan MD NIGHT AND WEEKEND COVERAGE: After 7pm please page [phone] CHIEF COMPLAINT: left flank pain. A fib with rvr SUBJECTIVE: Left flank pain better with tylenol. No anterior abdominal pain. No dysuria. No fever or chills. Had RVR and got metoprolol. OBJECTIVE: PHYSICAL EXAM: BP 103/59 Pulse 98 Temp (Src) 98.2 (Oral) Resp 20 Ht 5' 2 (1.58m) Wt 140 lb (63.5kg) SpO2 91% BMI 25.60 kg/(m2). GENERAL: Alert, no distress, cooperative, SKIN: Skin color, texture, turgor normal. No rashes or lesions. OROPHARYNX: Lips, mucosa, and tongue normal. Teeth and gums normal. Oropharynx normal. LUNGS: Lungs clear to auscultation, Air entry good, Unlabored breathing. CARDIAC: Normal S1 and S2; no rubs, murmurs, or gallops, irregular rhythm ABDOMEN: Abdomen soft, non-tender, non-distended, BS normal EXTREMITIES: Normal, no deformities, edema, clubbing or skin discoloration. NEURO: Grossly normal cognition, motor function, and cranial nerves III-XII MEDICATIONS: Current hospital medications: dicyclomine 10 mg cap(s) (BENTYL) 10 mg ORAL TID PRN cholestyramine 4 g packet (QUESTRAN) 4 g ORAL DAILY [START ON 03/29/2018] NaCl 0.9% iv infusion 50 mL/hr INTRAVENOUS CONTINUOUS acetaminophen 325-650 mg tab(s) (TYLENOL) 325-650 mg ORAL q 6 H PRN digoxin 0.125 mg tab(s) (LANOXIN) 0.125 mg ORAL DAILY furosemide 40 mg tab(s) (LASIX) 40 mg ORAL DAILY gabapentin 200 mg cap(s) (NEURONTIN) 200 mg ORAL AT BEDTIME pramipexole 0.25 mg tab(s) (MIRAPEX) 0.25 mg ORAL AT BEDTIME metoprolol tartrate (short acting) 25 mg tab(s) (LOPRESSOR) 25 mg ORAL q 8 H atorvastatin 10 mg tab(s) (LIPITOR) 10 mg ORAL AT BEDTIME DATA: Diagnostic tests reviewed for today's visit: CBC, Coags, BMP, Mg, Phos Recent Labs 03/28/18 0605 03/27/18 0330 03/26/18 1400 03/26/18 0845 03/26/18 0530 WBC 10.05* 11.60* -- -- 7.10 HB 14.2 13.6 -- -- 12.5 HCT 42.2 40.3 -- -- 36.5 PLT 284 277 -- -- 254 INR 2.82* 3.03* -- 2.99* -- NA 139 138 -- -- 140 K 3.5 3.7 -- -- 3.4* CHLOR 103 106 -- -- 105 CO2 30 23 -- -- 25 BUN 16 19* -- -- 24* CREAT 0.95 0.86 -- -- 1.08* GLUC 83 107* -- -- 90 CA 8.6 8.5 -- -- 8.2* MG -- -- 1.6 -- -- Liver Function, Amylase, AND Lipase Recent Labs 03/28/18 0605 TPROT 6.6 ALB 3.2* ALT 40 AST 13 ALKPHOS 85 TBILI 2.0* Cardiac Enzymes Heme: No results for input(s): RETICP, ABSRETIC, LD, JOHNIE, FE, TIBC, TRANSFERSAT in the last 24 hours. No results found for: UALBCR Assessment/Plan Patient Active Hospital Problem List: A-fib ([facility]) (03/24/2018) ASSESSMENT: 1. Left flank pain with left hydronephrosis with perinephric fat stranding with left nephrolithiasis: possible passed stone. UA negative for UTI. Pain improved. Evaluated by Urology-may get ureteric stent placement tomorrow. 2. Paroxysmal A fib with RvR: HR better controlled with dig and metoprolol. Treatment with amiodarone- stopped. INR therapeutic no. Coumadin on hold. Plan to start heparin gtt once INR<2 in anticipation of MEERA/ RHC on Thursday. ? 3. Severe MS and MR: MEERA and R/L HC on Thursday. ? 4. IBS: ? 5. Remote hx of uterine cancer s/p hsyterectomy and XRT 30 years or so ago. 6. Supratherapeutic INR on presentation: coumadin on hold. inr therapeutic now. PLAN: Continue above treatment. Likely MEERA +-L/RHC tomorrow. Possible ureteric stent by urology tomorrow. VTE Prophylaxis: Patient is already anti-coagulated. Disposition: Home Plan of care discussed with: Patient SIGNATURE: Oj Phan MD PATIENT NAME: Gloria Mathew DATE: March 28, 2018 TIME: 10:47 AM PAGER/CONTACT #: [phone] Abbey Sellers, RN, RN 03/28/2018 4:27 PM Signed RAC IV site with redness and hardness at the insertion site, IV removed pressure dressing applied, pt instructed to notify nurse with any pain at the site, pt verbalized understanding, call huang and bedside table within reach. Will continue to monitor Fredo Nugent MD 03/29/2018 10:07 AM Signed UROLOGY PROGRESS NOTE PATIENT NAME: Gloria Mathew DATE OF : 1940 ADMISSION DATE: 03/24/2018 6:38 PM Subjective No acute events overnight. Patient denies any nausea, vomiting, fever, or chills. Endorses decreased L flank/CVA region pain PVR overnight 112cc. Objective VS: BP 102/68 Pulse 102 Temp 36.4 ?C (97.5 ?F) (Oral) Resp 18 Ht 157.5 cm (5' 2) Wt 63.5 kg (140 lb) SpO2 98% BMI 25.61 kg/m? I AND O - 24hr: Intake/Output Summary (Last 24 hours) at 03/29/18 0653 Last data filed at 03/29/18 0500 Gross per 24 hour Intake 226 ml Output 650 ml Net -424 ml Physical Exam: General: Neck: Resp: Abdomen: No acute distress Supple Normal effort Soft, non-tender, nondistended : Minimal TTP in L flank/CVA region Labs and Imaging Studies LABS: BMP: Glucose (mg/dL) Date Value 03/28/2018 83 Potassium (mEq/L) Date Value 03/28/2018 3.5 Sodium (mEq/L) Date Value 03/28/2018 139 Chloride (mEq/L) Date Value 03/28/2018 103 CO2 (mEq/L) Date Value 03/28/2018 30 Creatinine (mg/dL) Date Value 03/28/2018 0.95 BUN (mg/dL) Date Value 03/28/2018 16 Anion Gap (no units) Date Value 03/28/2018 10 Calcium (mg/dL) Date Value 03/28/2018 8.6 CBC: HGB (g/dL) Date Value 03/28/2018 14.2 Hematocrit (%) Date Value 03/28/2018 42.2 WBC (thou/cmm) Date Value 03/28/2018 10.05 Platelet Count (thou/cmm) Date Value 03/28/2018 284 Urinalysis: Specific [place], Ur Date Value Ref Range Status 03/27/2018 1.010 1.005 - 1.030 Final Glucose, Urine Date Value Ref Range Status 03/27/2018 NEGATIVE Negative mg/dL Final Bilirubin, Urine Date Value Ref Range Status 03/27/2018 NEGATIVE Negative Final Ketones, Urine Date Value Ref Range Status 03/27/2018 NEGATIVE Negative mg/dL Final Protein, Urine Date Value Ref Range Status 03/27/2018 NEGATIVE Negative mg/dL Final Urobilinogen, Urine Date Value Ref Range Status 03/27/2018 0.2 0.0 - 1.0 EU/dL Final Urine Culture: No results found for: URCUL RADIOLOGY: EXAMINATION: ?CT ABDOMEN AND PELVIS WITHOUT IV CONTRAST ? CLINICAL HISTORY: ?Left flank pain. ? TECHNIQUE: Non-IV contrast imaging of the abdomen and pelvis was performed using standard technique, scanning from just above the dome of the diaphragm to the symphysis pubis. ?Unenhanced imaging is limited for the evaluation of some intra-abdominal and pelvic pathology. MQ: ?CTAPWO_3 ? ? Contrast: None CT Dose-Length Product: ?483.32 mGy*cm CT Dose Reduction Employed: Automated exposure control (AEC) was used. ? ? COMPARISON: Contrast-enhanced CT abdomen/pelvis 09/24/2017 ? ? RESULT: ? Abdomen / Pelvis: ? Liver: Unremarkable unenhanced liver. ? ? ? Biliary: S/p cholecystectomy. ? Spleen: No splenomegaly. ? Pancreas: Unremarkable. ? Adrenals: No mass. ? Kidneys: Bilateral peripelvic and cortical cysts are again noted. ?There are approximately 4 tiny nonobstructing calculi in the left kidney. ?There is mild/moderate left hydronephrosis with perinephric and periureteral fat stranding and thickening of the anterior pararenal fascia. ? No obstructing ureteral calculus or mass. ?The appearance may be secondary to a recently passed stone and given the degree of stranding around the left kidney, the possibility of forniceal ?rupture is considered. ?No right-sided hydronephrosis or hydroureter. ? GI Tract: No bowel dilation. ?Normal appendix. ?Pancolonic diverticulosis without findings to suggest acute appendicitis. ? Lymph Nodes: No lymphadenopathy. ? Mesentery/peritoneum: No ascites. ? Retroperitoneum: No mass. ? Vasculature: Arterial atherosclerotic disease without aneurysm. ? Pelvis: No mass or ascites. ?Urinary bladder is unremarkable. ?Uterus is absent. ? Bones/Soft Tissues: No acute abnormality. ? Lower thorax: Small bilateral pleural effusions (right larger than left) with compressive atelectasis. ?There is multichamber cardiac enlargement. ? IMPRESSION: 1. ?Mild/moderate left hydronephrosis with perinephric and periureteral fat stranding. No obstructing ureteral calculus or mass. ?The appearance may be secondary to a recently passed stone and given the degree of stranding around the left kidney, the possibility of forniceal rupture is considered. ?There are at least 4 small nonobstructing left renal calculi. ? 2. Small bilateral pleural effusions (right larger than left) with compressive atelectasis. ? 3. ?Normal appendix. Pancolonic diverticulosis without acute diverticulitis. ? Assessment and Plan ASSESSMENT: 77 year old female with mild left hydro with perinephric stranding, left non-obstructing renal calculi. - AVSS overnight - pain improving - UA negative - Cr WNL PLAN: - PVR low - 112cc - cont medical management/pain control per primary team - urology will s/o at this time - patient likely passed stone - please page on-call resident if pain worsens/patient becomes febrile - will discuss with attending I saw and evaluated the patient. Discussed with the resident and agree with resident's findings and plan as documented in the resident's note. MD Brandt Mccarthy, DO Urology, PGY-1 [id number] Previous Version Brittany Dumont RN, RN 03/29/2018 9:05 AM Signed CARE MANAGEMENT PROGRESS NOTE SERVICE DATE: 03/29/2018 SERVICE TIME: 0900 LOS: 5 days Chart reviewed. Plan for MEERA and Paul cath today. No needs noted at this time. Plans to return home w/ spouse on DC once medically. CM to follow. SIGNATURE: Brittany Dumont RN PATIENT NAME: Gloria Mathew DATE: March 29, 2018 TIME: 9:03 AM PAGER/CONTACT #: Oj Phan MD 03/29/2018 10:25 AM Signed DEPARTMENT OF HOSPITAL MEDICINE PROGRESS NOTE SERVICE DATE: 03/29/2018 SERVICE TIME: 10:19 AM Hospital Medicine/Primary Attending: Oj Phan MD NIGHT AND WEEKEND COVERAGE: After 7pm please page [phone] CHIEF COMPLAINT: atrial fib with rvr. Left flank pain SUBJECTIVE: MEERA/ heart cath postponed to Thursday, INR still 2.8. No palpitation or dyspnea. Left flank pain decreasing- taking tylenol. No abdominal pain. OBJECTIVE: PHYSICAL EXAM: BP 102/68 Pulse 102 Temp (Src) 97.5 (Oral) Resp 18 Ht 5' 2 (1.58m) Wt 142 lb 10.2 oz (64.7kg) SpO2 98% BMI 26.08 kg/(m2). GENERAL: Alert, no distress, cooperative, SKIN: Skin color, texture, turgor normal. No rashes or lesions. OROPHARYNX: Lips, mucosa, and tongue normal. Teeth and gums normal. Oropharynx normal. LUNGS: Lungs clear to auscultation, Air entry good, Unlabored breathing. CARDIAC: Normal S1 and S2; no rubs, or gallops, systolic murmur at mitral area. ABDOMEN: Abdomen soft, non-tender, non-distended, BS normal EXTREMITIES: Normal, no deformities, edema, clubbing or skin discoloration. NEURO: Grossly normal cognition, motor function, and cranial nerves III-XII MEDICATIONS: Current hospital medications: morphine 1 mg injection 1 mg INTRAVENOUS q 3 H PRN ondansetron (PF) 4 mg injection (ZOFRAN) 4 mg INTRAVENOUS q 6 H PRN dicyclomine 10 mg cap(s) (BENTYL) 10 mg ORAL TID PRN cholestyramine 4 g packet (QUESTRAN) 4 g ORAL DAILY acetaminophen 325-650 mg tab(s) (TYLENOL) 325-650 mg ORAL q 6 H PRN digoxin 0.125 mg tab(s) (LANOXIN) 0.125 mg ORAL DAILY furosemide 40 mg tab(s) (LASIX) 40 mg ORAL DAILY gabapentin 200 mg cap(s) (NEURONTIN) 200 mg ORAL AT BEDTIME pramipexole 0.25 mg tab(s) (MIRAPEX) 0.25 mg ORAL AT BEDTIME metoprolol tartrate (short acting) 25 mg tab(s) (LOPRESSOR) 25 mg ORAL q 8 H atorvastatin 10 mg tab(s) (LIPITOR) 10 mg ORAL AT BEDTIME DATA: Diagnostic tests reviewed for today's visit: CBC, Coags, BMP, Mg, Phos Recent Labs 03/29/18 0524 03/28/18 0605 03/27/18 0330 03/26/18 1400 WBC -- 10.05* 11.60* -- HB -- 14.2 13.6 -- HCT -- 42.2 40.3 -- PLT -- 284 277 -- INR 2.82* 2.82* 3.03* -- NA -- 139 138 -- K -- 3.5 3.7 -- CHLOR -- 103 106 -- CO2 -- 30 23 -- BUN -- 16 19* -- CREAT -- 0.95 0.86 -- GLUC -- 83 107* -- CA -- 8.6 8.5 -- MG -- -- -- 1.6 Liver Function, Amylase, AND Lipase Recent Labs 03/28/18 0605 TPROT 6.6 ALB 3.2* ALT 40 AST 13 ALKPHOS 85 TBILI 2.0* Cardiac Enzymes Heme: No results for input(s): RETICP, ABSRETIC, LD, JOHNIE, FE, TIBC, TRANSFERSAT in the last 24 hours. No results found for: UALBCR Assessment/Plan Patient Active Hospital Problem List: A-fib ([facility]) (03/24/2018) ASSESSMENT: 1. Left flank pain with left hydronephrosis with perinephric fat stranding with left nephrolithiasis:?possible passed stone. UA negative for UTI. PVR low 112cc. Pain improved. Evaluated by Urology- no further plan by urology. 2. Paroxysmal A fib with RvR: HR better controlled with dig and metoprolol. Treatment with amiodarone- stopped. INR therapeutic still. Coumadin on hold and plan to start heparin gtt once INR<2 in anticipation of MEERA/ RHC (now scheduled for Thursday).? 3. Severe MS and MR: MEERA and R/L HC on Thursday. ? 4. IBS: ? 5. Remote hx of uterine cancer?s/p hsyterectomy and XRT 30 years or so ago. ? 6. Supratherapeutic INR on presentation: coumadin on hold. inr therapeutic now. ? PLAN: Continue above treatment. Follow INR. When <2, start heparin drip. MEERA and R/L HC on Thursday if INR reasonable. VTE Prophylaxis: Patient is already anti-coagulated. Disposition: pending MEERA and heart cath and further plan for intervention Plan of care discussed with: Patient SIGNATURE: Oj Phan MD PATIENT NAME: Gloria Mathew DATE: March 29, 2018 TIME: 10:19 AM PAGER/CONTACT #: [phone] Jean-Pierre Perez MD 03/29/2018 10:49 AM Signed PROGRESS NOTE CARDIOLOGY SERVICE SERVICE DATE: 03/29/2018 SERVICE TIME: 10:34 AM Subjective INTERIM HISTORY: Less sob; no chest pain or nausea; no edema; no bleeding Objective PHYSICAL EXAM: Body mass index is 26.09 kg/m?. O2 Therapy: Room Air No Data Recorded Patient Vitals for the past 24 hrs: BP Temp Temp src Pulse Resp SpO2 Weight 03/29/18 0819 - - - - - - 64.7 kg (142 lb 10.2 oz) 03/29/18 0513 102/68 36.4 ?C (97.5 ?F) Oral 102 18 98 % - 03/29/18 0047 (!) 91/41 36.9 ?C (98.4 ?F) Oral (!) 125 18 98 % - 03/28/18 2132 99/51 37.1 ?C (98.8 ?F) Oral 119 20 98 % - 03/28/18 1719 97/56 - - - - - - 03/28/18 1603 84/51 37.2 ?C (99 ?F) Oral 72 16 95 % - 03/28/18 1348 - - - (!) 130 - - - 03/28/18 1100 104/88 36.7 ?C (98.1 ?F) Oral 108 18 94 % - Tele afib at 110-120 Pleasant, comfortable, not in acute distress. Awake, alert, oriented times 3. Moves all extremities. NECK: nl carotid upstroke LUNGS: Clear to auscultation bilaterally. ABDOMEN: Soft, nontender, EXTREMITIES: No edema. PULSES: Peripheral pulses present. CARDIAC:irreg at 120 1/6 syst m. MEDICATIONS: Current hospital medications: morphine 1 mg injection 1 mg INTRAVENOUS q 3 H PRN ondansetron (PF) 4 mg injection (ZOFRAN) 4 mg INTRAVENOUS q 6 H PRN dicyclomine 10 mg cap(s) (BENTYL) 10 mg ORAL TID PRN cholestyramine 4 g packet (QUESTRAN) 4 g ORAL DAILY acetaminophen 325-650 mg tab(s) (TYLENOL) 325-650 mg ORAL q 6 H PRN digoxin 0.125 mg tab(s) (LANOXIN) 0.125 mg ORAL DAILY furosemide 40 mg tab(s) (LASIX) 40 mg ORAL DAILY gabapentin 200 mg cap(s) (NEURONTIN) 200 mg ORAL AT BEDTIME pramipexole 0.25 mg tab(s) (MIRAPEX) 0.25 mg ORAL AT BEDTIME metoprolol tartrate (short acting) 25 mg tab(s) (LOPRESSOR) 25 mg ORAL q 8 H atorvastatin 10 mg tab(s) (LIPITOR) 10 mg ORAL AT BEDTIME DATA: Past 72 Hour Labs: Recent Labs 03/29/18 0524 03/28/18 0605 03/26/18 1400 WBC -- 10.05* < > -- RBC -- 4.63 < > -- HB -- 14.2 < > -- HCT -- 42.2 < > -- MCV -- 91.1 < > -- MCH -- 30.7 < > -- MCHC -- 33.6 < > -- PLT -- 284 < > -- MPV -- 9.5 < > -- GLUC -- 83 < > -- BUN -- 16 < > -- CREAT -- 0.95 < > -- NA -- 139 < > -- K -- 3.5 < > -- CHLOR -- 103 < > -- CO2 -- 30 < > -- TPROT -- 6.6 -- -- ALB -- 3.2* -- -- CA -- 8.6 < > -- ALKPHOS -- 85 -- -- TBILI -- 2.0* -- -- AST -- 13 -- -- ALT -- 40 -- -- PTSEC 27.2* 27.2* < > -- INR 2.82* 2.82* < > -- MG -- -- -- 1.6 < > = values in this interval not displayed. Last Lab Drawn: Triglyceride 103 03/26/2018 HDL Cholesterol 25 03/26/2018 LDL Calculated 48 03/26/2018 Cholesterol, Total 94 03/26/2018 Assessment/Plan Active Problems: Paroxysmal afib with rvr-rates mostly controlled 90-110 on metoprolol 25 tid and dig 125 daily. S/p amio gtt. Asymptomatic with rates. Holding coumadin for planned R/L heart cath for severe mitral disease. Once INR <2.0 should start hep gtt. Had been planning on outpt MEERA and R/L cath, but had supratherpeutic inr.Will not plan cardioversion in pt until after valve surgery; ? Supratherapeutic INR-s/p vit k in ER. Trending down. 2.8 b today. Continue to hold coumadin ? Severe MS and MR- see above. MEERA and r/l heart cath. MEERA on Thursday +/- cath depending on INR. Make NPO at [place] in case INR low enough. C/w PO lasix for now. ? Will plan MEERA and cath 03/31; reviewed rsik/benefit , alternative; will proceed; consent obtained Consult CT surg Dr De Los Santos; pt will need dental eval prior to any valve surgery SIGNATURE: Jean-Pierre Perez MD PATIENT NAME: Gloria Mathew DATE: March 29, 2018 TIME: 10:34 AM PAGER/CONTACT #: [phone] Rosaline Lauren APRN.JAQUI SANTOS 03/29/2018 2:35 PM Signed CARDIOTHORACIC SURGERY CONSULT / HANDP SERVICE DATE: 03/29/2018 SERVICE TIME: 12:17 PM Subjective PRIMARY SERVICE: Cardiothoracic Surgery CHIEF COMPLAINT: Chest palpitation, SOB, elevated INR HPI: This is a 77 year old female with PMH of moderately severe MR with MS, rheumatic fever, Afib with RVR (new), TRISH (on Cpap) and IBS, who presented to ED with elevated INR, SOB and some chest discomfort/palpitation. Patient was recently diagnosed with A fib and was started on metoprolol and Coumadin by Dr. Perez's TUNNELLER on 03/16. Her HR was still high which her metoprolol dose was increased to 25 mg BID subsequently. Patient has been following Dr. Perez for her MR, MS with series of Echo studies and was scheduled to have L/R HC and MEERA done on 03/31 electively. She was advised to ED from coumadin clinic with elevated INR on Thursday. In ED, she was found to have HR of 140s-150s, therefore, she received IV metoprolol and digoxin in addition to Vit K for the supra therapeutic INR. CXR found her to have bilateral pleural effusion with clinical symptom of SOB, so she was admitted for acute respiratory management with diuresis. During the interim, patient was found to have renal calculi on the left kidney, which subsequently resolved spontaneously without intervention. Consult to CTS is placed for Mitral valve evaluation. Patient denied chest pain, she does report some chest palpitation, mild shortness of breath with exertions. Denied orthopnea or PND, no LH/DZ, syncope/presyncope. Patient is seen today, she denied any SOB or chest palpitation. Patient is Able to Perform the Following Physical Activity: Do heavy work around the house, such as scrubbing floors, lifting or moving heavy furniture (8.00 METs) Patient has the following medical comorbidities which might affect the perioperative course: - Atrial fibrillation, rate not well controlled after started on BB initially, currently improved. and anticoagulated with Coumadin and had supratherepeutic INR, hence it is on hold now. - Patient with sleep apnea and uses CPAP. - N/A, N.A, N/A PAST MEDICAL HISTORY Diagnosis Date - Breast mass, right - IBS (irritable bowel syndrome) - Mitral valve regurgitation - Mitral valve stenosis - Pulmonary HTN (HCC) - Tricuspid regurgitation PAST SURGICAL HISTORY Procedure Laterality Date - BREAST BIOPSY - CHOLECYSTECTOMY HX 10/02/2011 - HYSTERECTOMY HX MARYELLEN/BLO - LEG SURGERY HX FAMILY HISTORY Problem Relation Age of Onset - Breast Cancer Mother stage III - Coronary Artery Disease Mother mother, uncle - Cancer Paternal Grandfather - Colon Cancer Maternal Grandmother - Diabetes Other uncle - Stroke Maternal Grandfather Social History Substance Use Topics - Smoking status: Never Smoker - Smokeless tobacco: Never Used - Alcohol use No Prescriptions Prior to Admission: Cyanocobalamin (VITAMIN B-12) 1,000 mcg subl Dissolve 1 tablet under the tongue once daily. Disp: Rfl: warfarin (COUMADIN) 1 mg tablet Take 0.5mg (1/2 tablet) daily. Disp: 30 tablet Rfl: 1 calcium carbonate (CALTRATE) 600 mg calcium (1,500 mg) tab Take 600 mg by mouth once daily. Disp: Rfl: metoprolol tartrate, short acting, (LOPRESSOR) 25 mg tablet Take 25 mg by mouth twice daily. Disp: Rfl: Taking pramipexole (MIRAPEX) 0.25 mg tablet Take 0.25 mg by mouth daily at bedtime. Disp: Rfl: warfarin (COUMADIN) 5 mg tablet TAKE 1 TABLET BY MOUTH EVERY DAY (Patient taking differently: Take 2.5mg (1/2 tablet) daily) Disp: 90 tablet Rfl: 3 PROAIR HFA 90 mcg/actuation inhaler 2 Puffs every 6 hours as needed for Wheezing/Shortness of Breath. Disp: Rfl: Taking cholestyramine (QUESTRAN) 4 gram packet Take 1 Packet by mouth once daily. Disp: Rfl: Taking gabapentin (NEURONTIN) 100 mg capsule Take 200 mg by mouth daily at bedtime. Disp: Rfl: Taking simvastatin (ZOCOR) 10 mg tablet Take 10 mg by mouth daily at bedtime. Disp: Rfl: Taking alendronate (FOSAMAX) 70 mg tablet Take 70 mg by mouth every Thursday. Disp: Rfl: Taking Biotin-Silicon Fsyb-A-Offrxxei 5,000 mcg-100 mg- 50 mg tab Take 1 tablet by mouth once daily. Disp: Rfl: multivitamin tablet Take 1 tablet by mouth once daily. Disp: Rfl: Taking Cholecalciferol, Vitamin D3, 1,000 unit cap Take 1,000 Units by mouth once daily. Disp: Rfl: Taking Cyanocobalamin (VITAMIN B-12) 1,000 mcg subl Dissolve 1 tablet under the tongue once daily. warfarin (COUMADIN) 1 mg tablet Take 0.5mg (1/2 tablet) daily. calcium carbonate (CALTRATE) 600 mg calcium (1,500 mg) tab Take 600 mg by mouth once daily. metoprolol tartrate, short acting, (LOPRESSOR) 25 mg tablet Take 25 mg by mouth twice daily. pramipexole (MIRAPEX) 0.25 mg tablet Take 0.25 mg by mouth daily at bedtime. warfarin (COUMADIN) 5 mg tablet TAKE 1 TABLET BY MOUTH EVERY DAY PROAIR HFA 90 mcg/actuation inhaler 2 Puffs every 6 hours as needed for Wheezing/Shortness of Breath. cholestyramine (QUESTRAN) 4 gram packet Take 1 Packet by mouth once daily. gabapentin (NEURONTIN) 100 mg capsule Take 200 mg by mouth daily at bedtime. simvastatin (ZOCOR) 10 mg tablet Take 10 mg by mouth daily at bedtime. alendronate (FOSAMAX) 70 mg tablet Take 70 mg by mouth every Thursday. Biotin-Silicon Gufq-Q-Hcxkcuns 5,000 mcg-100 mg- 50 mg tab Take 1 tablet by mouth once daily. multivitamin tablet Take 1 tablet by mouth once daily. Cholecalciferol, Vitamin D3, 1,000 unit cap Take 1,000 Units by mouth once daily. ALLERGIES No Known Allergies REVIEW OF SYSTEMS: PAIN ASSESSMENT: Negative for pain, history of chronic pain, or current treatment for a chronic pain condition. GENERAL: Positive for fatigue Within the last 2-3 weeks, See HPI. NECK: Negative for lumps, goiter, pain and significant neck swelling RESPIRATORY: Negative for cough, wheezing, Positive for shortness of breath on exertion lately CARDIOVASCULAR: Negative for chest pain leg swelling claudication orthopnea paroxysmal nocturnal dyspnea, Positive for palpitations . 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 SKIN: Negative for lesions, rash, and itching. PSYCH: Negative for sleep disturbance, mood disorder and recent psychosocial stressors. HEMATOLOGY/LYMPHOLOGY Negative for prolonged bleeding, bruising easily or swollen nodes. ENDOCRINE: Negative for cold or heat intolerance, polyuria, polydipsia and goiter. NEURO: No history of headaches, syncope, paralysis, seizures or tremors See HPI Objective PHYSICAL EXAM: BP 118/73 Pulse 114 Temp 36.8 ?C (98.2 ?F) (Axillary) Resp 18 Ht 157.5 cm (5' 2) Wt 64.7 kg (142 lb 10.2 oz) SpO2 93% BMI 26.09 kg/m? Body surface area is 1.68 meters squared. STS RISK CALCULATOR: 4.047% (w/o HC) General Appearance: well developed and no distress Skin: warm and dry Neck: no JVD, no carotid bruits and thyroid not palpable Lungs: clear and respiratory effort: normal Heart: irregular rhythm, HR 114, no S3 and no S4 Peripheral Vascular/Arteries: pulses intact, dorsalis pedis +2 and radial +1 Abdomen: soft, non-tender and bowel sounds present Genitourinary: voiding without difficulty Musculoskeletal: no deformities Neurologic/Psychiatric: oriented to time, place and person and steady gait Extremities: normal exam of the extremities and no edema Lines, Drains, and Airways Line Peripheral 03/24/18 1454 Left Antecubital 20 Gauge 4 days @LDAASSESS(2::::8:)@ DATA: Diagnostic tests reviewed for today's visit: Significant Lab Results: Labs reviewed Chest X-RAY 03/24/2018: Findings as above most likely representing moderate pulmonary edema. ? Small bilateral pleural effusions with mild coexisting bibasilar atelectasis and/or infiltrate. ? Bilateral prominence, which is most likely related to probable avascular. ? However, follow-up chest CT is recommended to exclude the possibility of adenopathy. ECHO 06/04/2017: Final Impressions: Left Atrium The left atrium appears severely dilated in size. ALMA ROSA is 64.81 ml/m2. Mitral Valve The mitral leaflets are moderately thickened and calcified especially the anterior leaflet. No evidence of mitral valve prolapse. Moderate to moderately severe (2-3+) mitral regurgitation. There is moderate to severe mitral valve stenosis. Peak gradient is 30 mmHg. Mean gradient is 10 mmHg. Gradients were 27 and 14 mmHg respectively on previous echo in 2011. MVA estimated at 1.33cm2 by pressure half-time method. Rheumatic affection a possibility. Tricuspid Valve Mild to moderate (1-2+) tricuspid valve regurgitation. Moderate pulmonary hypertension. Right ventricular systolic pressure is estimated at 61 mmHg. Left Ventricle Normal left ventricular size and systolic function. No regional wall motion abnormalities. LVEF is 55-60% by visual estimation. E/E' is greater than 15, suggesting high left ventricular filling pressure EKG 03/24/2018: Diagnosis:ATRIAL FIBRILLATION WITH RAPID VENTRICULAR RESPONSE LOW VOLTAGE QRS NONSPECIFIC ST AND T WAVE ABNORMALITY ABNORMAL ECG WHEN COMPARED WITH ECG OF 28-AUG-2011 19:10, ATRIAL FIBRILLATION HAS REPLACED SINUS RHYTHM VENT. RATE HAS INCREASED BY ?65 BPM QUESTIONABLE CHANGE IN QRS AXIS NONSPECIFIC T WAVE ABNORMALITY NOW EVIDENT IN INFERIOR LEADS T WAVE INVERSION NOW EVIDENT IN ANTERIOR LEADS Recent Labs 03/29/18 0524 03/28/18 0605 03/27/18 0330 03/26/18 1400 RBC -- 4.63 4.48 -- WBC -- 10.05* 11.60* -- HB -- 14.2 13.6 -- HCT -- 42.2 40.3 -- PLT -- 284 277 -- INR 2.82* 2.82* 3.03* -- NA -- 139 138 -- K -- 3.5 3.7 -- CHLOR -- 103 106 -- CO2 -- 30 23 -- BUN -- 16 19* -- CREAT -- 0.95 0.86 -- GLUC -- 83 107* -- CA -- 8.6 8.5 -- MG -- -- -- 1.6 TPROT -- 6.6 -- -- TBILI -- 2.0* -- -- ALKPHOS -- 85 -- -- ALT -- 40 -- -- AST -- 13 -- -- ANION -- 10 13 -- Recent Labs 03/27/18 1440 UPH 5.0 SPGR 1.010 UGLUC NEGATIVE UBILI NEGATIVE UKET NEGATIVE UPROT NEGATIVE Assessment/Plan Active Problems: A-fib (HCC) POA: Yes - currently HR improved. -c/w Digoxin, BB Mitral Regurgitation - work up in progress: MEERA, L/R HC on Thursday -load reduction: diuresis daily - will discuss with Dr. De Los Santos regarding the case to formulate a plan -patient would need dental clearance prior MVR -pre-op work ups in progress Tests/Labs Ordered: 1. MRSA 2. Bedside spirometry 3. Dental clearance 4. 5 meter walk These findings will be communicated back to the requesting provider electronically. SIGNATURE: Rosaline Lauren APRN.CNP PATIENT NAME: Gloria Mathew DATE: March 29, 2018 TIME: 12:17 PM PAGER/CONTACT #:[phone] [phone] Polo Lee RRT, [employer] 03/30/2018 9:19 AM Signed CARDIAC REHAB 5 METER WALK TEST SERVICE DATE: 03/30/2018 SERVICE TIME: 0900 ASSESSMENT: 5 Meter Walk Test 5 Meter Walk Test Completed: Yes Trial 1 # of Seconds: 5.77 Trial 1 Assistive Device: None Trial 2 # of Seconds: 5.91 Trial 2 Assistive Device: None Trial 3 # of Seconds: 5.31 Trial 3 Assistive Device: None SIGNATURE: Polo Lee RRT PATIENT NAME: Gloria Mathew DATE: March 30, 2018 TIME: 9:19 AM PAGER/CONTACT #: [phone] Jean-Pierre Perez MD 03/30/2018 9:58 AM Signed PROGRESS NOTE CARDIOLOGY SERVICE SERVICE DATE: 03/30/2018 SERVICE TIME: 9:50 AM Subjective INTERIM HISTORY: No change palps and sob; no chest pain Objective PHYSICAL EXAM: Body mass index is 25.79 kg/m?. O2 Therapy: Continuous Positive Airway Pressure No Data Recorded Patient Vitals for the past 24 hrs: BP Temp Temp src Pulse Resp SpO2 Weight 03/30/18 0548 - - - - - - 64 kg (141 lb) 03/30/18 0505 97/67 37 ?C (98.6 ?F) Oral 115 16 100 % - 03/30/18 0015 100/60 36.8 ?C (98.2 ?F) Oral 120 16 96 % - 03/29/18 1945 119/88 37.2 ?C (99 ?F) Oral 106 18 96 % - 03/29/18 1600 91/60 36.7 ?C (98.1 ?F) Oral 94 18 94 % - 03/29/18 1137 118/73 36.8 ?C (98.2 ?F) Axillary 114 18 93 % - Tele afib at 110 NAD CHest no wheeze COR irreg sys m Abd nontender Mild bruising R radial pulse 2+ Tr edema Nl mentation MEDICATIONS: Current hospital medications: sodium chloride 0.65 % 2 [place] (AYR, OCEAN) 2 [place] EACH NOSTRIL PRN morphine 1 mg injection 1 mg INTRAVENOUS q 3 H PRN ondansetron (PF) 4 mg injection (ZOFRAN) 4 mg INTRAVENOUS q 6 H PRN dicyclomine 10 mg cap(s) (BENTYL) 10 mg ORAL TID PRN cholestyramine 4 g packet (QUESTRAN) 4 g ORAL DAILY acetaminophen 325-650 mg tab(s) (TYLENOL) 325-650 mg ORAL q 6 H PRN digoxin 0.125 mg tab(s) (LANOXIN) 0.125 mg ORAL DAILY furosemide 40 mg tab(s) (LASIX) 40 mg ORAL DAILY gabapentin 200 mg cap(s) (NEURONTIN) 200 mg ORAL AT BEDTIME pramipexole 0.25 mg tab(s) (MIRAPEX) 0.25 mg ORAL AT BEDTIME metoprolol tartrate (short acting) 25 mg tab(s) (LOPRESSOR) 25 mg ORAL q 8 H atorvastatin 10 mg tab(s) (LIPITOR) 10 mg ORAL AT BEDTIME DATA: Past 72 Hour Labs: Recent Labs 03/30/18 0520 03/28/18 0605 WBC -- -- 10.05* RBC -- -- 4.63 HB -- -- 14.2 HCT -- -- 42.2 MCV -- -- 91.1 MCH -- -- 30.7 MCHC -- -- 33.6 PLT -- -- 284 MPV -- -- 9.5 GLUC -- -- 83 BUN -- -- 16 CREAT -- -- 0.95 NA -- -- 139 K -- -- 3.5 CHLOR -- -- 103 CO2 -- -- 30 TPROT -- -- 6.6 ALB -- -- 3.2* CA -- -- 8.6 ALKPHOS -- -- 85 TBILI -- -- 2.0* AST -- -- 13 ALT -- -- 40 PTSEC 23.0* < > 27.2* INR 2.36* < > 2.82* < > = values in this interval not displayed. Last Lab Drawn: Triglyceride 103 03/26/2018 HDL Cholesterol 25 03/26/2018 LDL Calculated 48 03/26/2018 Cholesterol, Total 94 03/26/2018 Assessment/Plan Paroxysmal afib with rvr-rates mostly controlled 90-110 on metoprolol 25 tid and dig 125 daily. S/p amio gtt. ?Asymptomatic with rates. Holding coumadin for planned R/L heart cath for severe mitral disease. Will not plan cardioversion in pt until after valve surgery; ? Supratherapeutic INR-s/p vit k in ER. Trending down. 2.3 b today. Continue to hold coumadin-recheck INR am? Severe MS and MR-? Will plan MEERA and cath 03/31; reviewed rsik/benefit , alternative; will proceed; consent obtained Consult CT surg Dr De Los Santos; pt will need dental eval prior to any valve surgery ? ? SIGNATURE: Jean-Pierre Perez MD PATIENT NAME: Gloria Mathew DATE: March 30, 2018 TIME: 9:50 AM PAGER/CONTACT #: [phone] Roberto Johnson RN, RN 03/30/2018 3:10 PM Signed CARE MANAGEMENT PROGRESS NOTE SERVICE DATE: 03/30/2018 SERVICE TIME: 1506 LOS: 6 days Epic reviewed, plan will be for MEERA and heart cath on 03/31, valve surgery at some point this admission, with dental eval prior to valve surgery. CM will continue to follow. SIGNATURE: Roberto Johnson RN PATIENT NAME: Gloria Mathew DATE: March 30, 2018 TIME: 3:06 PM PAGER/CONTACT #: [phone] Oj Phan MD 03/30/2018 4:57 PM Signed DEPARTMENT OF HOSPITAL MEDICINE PROGRESS NOTE SERVICE DATE: 03/30/2018 SERVICE TIME: 4:52 PM Hospital Medicine/Primary Attending: Oj Phan MD NIGHT AND WEEKEND COVERAGE: After 7pm please page [phone] CHIEF COMPLAINT: atrial fib with rvr. Left flank pain. SUBJECTIVE: Left flank pain better. No chest pain or dyspnea. OBJECTIVE: PHYSICAL EXAM: BP 107/61 Pulse 123 Temp (Src) 98.4 (Oral) Resp 18 Ht 5' 2 (1.58m) Wt 141 lb (64.0kg) SpO2 94% BMI 25.78 kg/(m2). GENERAL: Alert, no distress, cooperative, SKIN: Skin color, texture, turgor normal. No rashes or lesions. OROPHARYNX: Lips, mucosa, and tongue normal. Teeth and gums normal. Oropharynx normal. LUNGS: Lungs clear to auscultation, Air entry good, Unlabored breathing. CARDIAC: Normal S1 and S2; no rubs, murmurs, or gallops ABDOMEN: Abdomen soft, non-tender, non-distended, BS normal EXTREMITIES: Normal, no deformities, edema, clubbing or skin discoloration. NEURO: Grossly normal cognition, motor function, and cranial nerves III-XII MEDICATIONS: Current hospital medications: sodium chloride 0.65 % 2 [place] (AYR, OCEAN) 2 [place] EACH NOSTRIL PRN morphine 1 mg injection 1 mg INTRAVENOUS q 3 H PRN ondansetron (PF) 4 mg injection (ZOFRAN) 4 mg INTRAVENOUS q 6 H PRN dicyclomine 10 mg cap(s) (BENTYL) 10 mg ORAL TID PRN cholestyramine 4 g packet (QUESTRAN) 4 g ORAL DAILY acetaminophen 325-650 mg tab(s) (TYLENOL) 325-650 mg ORAL q 6 H PRN digoxin 0.125 mg tab(s) (LANOXIN) 0.125 mg ORAL DAILY furosemide 40 mg tab(s) (LASIX) 40 mg ORAL DAILY gabapentin 200 mg cap(s) (NEURONTIN) 200 mg ORAL AT BEDTIME pramipexole 0.25 mg tab(s) (MIRAPEX) 0.25 mg ORAL AT BEDTIME metoprolol tartrate (short acting) 25 mg tab(s) (LOPRESSOR) 25 mg ORAL q 8 H atorvastatin 10 mg tab(s) (LIPITOR) 10 mg ORAL AT BEDTIME DATA: Diagnostic tests reviewed for today's visit: CBC, Coags, BMP, Mg, Phos Recent Labs 03/30/18 0520 03/29/18 0524 03/28/18 0605 WBC -- -- 10.05* HB -- -- 14.2 HCT -- -- 42.2 PLT -- -- 284 INR 2.36* 2.82* 2.82* NA -- -- 139 K -- -- 3.5 CHLOR -- -- 103 CO2 -- -- 30 BUN -- -- 16 CREAT -- -- 0.95 GLUC -- -- 83 CA -- -- 8.6 Liver Function, Amylase, AND Lipase Recent Labs 03/28/18 0605 TPROT 6.6 ALB 3.2* ALT 40 AST 13 ALKPHOS 85 TBILI 2.0* Cardiac Enzymes Heme: No results for input(s): RETICP, ABSRETIC, LD, JOHNIE, FE, TIBC, TRANSFERSAT in the last 24 hours. No results found for: UALBCR Assessment/Plan Patient Active Hospital Problem List: A-fib (HCC) (03/24/2018) ASSESSMENT: 1. Left flank pain with left hydronephrosis with perinephric fat stranding with left nephrolithiasis:?possible passed stone. UA negative for UTI. PVR low 112cc. Pain improved on tylenol. Evaluated by Urology- no further plan by urology. ? 2. Paroxysmal A fib with RvR: HR better controlled with dig and metoprolol. Treatment with amiodarone- stopped. Coumadin on hold and plan to start heparin gtt once INR<2 in anticipation of MEERA/ RHC (now scheduled for Thursday). inr was supratherapeutic on presentation, now trending down. Today 2.3 ? 3. Severe MS and MR: MEERA and R/L HC planned for tomorrow. Also evaluated by [facility] team for surgery ? 4. IBS: ? 5. Remote hx of uterine cancer?s/p hsyterectomy and XRT 30 years or so ago. ? PLAN: Monitor inr. Likely MEERA and R/L HC tomorrow VTE Prophylaxis: Patient is already anti-coagulated. Disposition: pending MEERA and heart cath and further plan for intervention Plan of care discussed with: Patient SIGNATURE: Oj Phan MD PATIENT NAME: Gloria Mathew DATE: March 30, 2018 TIME: 4:52 PM PAGER/CONTACT #: [phone] Jean-Pierre Perez MD 03/31/2018 8:36 AM Signed MEERA-indication MV disease Findings LVEF 60%; small LV Mildly thicked trileaflet AV; trace AR, mild BERTO 1.7 cmsq by planimetry MV severe calcification, rheumatic, thickened chords, diminished opening ; 1-2+ MR; mean gradient 17 mmhg Mod-severe MS TV-normal morphology; mild TR IMP-needs tissue MVR Jean-Pierre Perez MD Pager [phone] Progress Notes (INTM AG ACC): RACHEL PALOMARES, PHARMACIST 03/24/2018 11:01 AM Signed Alfredo, I saw Mrs. Mathew in Coumadin clinic this morning. Her INR was >8.0 on the point of care machine, therefore, I sent her to the lab for INR level confirmation. She is scheduled for MEERA and heart cath on 03/31. She was instructed to hold warfarin until deemed safe to restart per your instructions after the procedure. The patient appears to be very sensitive to warfarin. She will likely require a very low dose. She will need a prescription for warfarin 1mg tablets. I have pended the order below. I will restart her on 0.5mg daily after the procedure on 03/31. Also, at today's visit, the patient had a BP of 84/62 and had symptoms of fatigue and weakness. I advised her to drink water to try to increase BP. She did start the increased dose of metoprolol tartrate (from 12.5 to 25mg BID) as instructed by your office. Her heart rate had improved and was 74 bpm today versus 150 at last visit on 03/19. Thank you, Rachel Palomares, PharmD Pending Prescriptions Disp Refills WARFARIN 1 MG TABLET 30 tablet 1 Sig: Take 0.5mg (1/2 tablet) daily. PROGRESS Observed: 03/22/2018 Status: COMPLETED Source: [place] 11:59 AM CLINIC OTHER CAMPUS REPOSITORY HNO ID: [id number] Author: Adalid Lizarraga Service: (none) Author Type: Physician Type: Progress Notes Filed: 03/22/2018 11:59 AM Note Text: Documentation reviewed. Agree with plan. Adalid Lizarraga MD PROGRESS Observed: 03/19/2018 Status: COMPLETED Source: [place] 1:58 PM CLINIC OTHER CAMPUS REPOSITORY HNO ID: [id number] Author: Rachel Palomares (Pharmacist) Service: (none) Author Type: Pharmacist Type: Progress Notes Filed: 03/19/2018 4:40 PM Note Text: Referred by: Dr. Perez Indication: New onset valvular AFib, Rheumatic mitral regurgitation, Rheumatic mitral stenosis INR goal: 2.0-3.0 Duration: Indefinite Bridging assessment and details: Low risk of therapy interruption. CHADS-VASC = 3 (age, female) Consult agreement signed by physician. Patient has been notified verbally and/or in writing of the terms of the pharmacist-physician consult agreement for the anticoagulation clinic. Date: 03/19/2018 INR Date Value Ref Range Status 03/19/2018 4.9 (A) 0.81 - 1.21 Final 03/19/18 0917 BP: 103/54 Pulse: (!) 150 Resp: 30 Current warfarin dose: 2.5mg daily ( new start as of 03/16/18 - dose being titrated) Anticoagulation Warfarin Dose Instructions as of 03/19/2018 Sun Thu New Dose 2.5 mg 2.5 mg 2.5 mg 0 mg 0 mg Hold Hold Description HOLD warfarin dose today (03/19) and Thursday (03/20). Take 2.5mg (1/2 tablet) Thursday, Thursday, Thursday. Recheck Saturday 03/24. Received new referral from Dr. Perez. Patient started warfarin 5mg daily on 03/16 for valvular new onset A Fib with RVR. Goal 2.0-3.0 with indefinite duration. Echo on 07/13/17 showed EF 60%, moderate to severe pulmonary hypertension, 1-2+ recurrent regurgitation, aortic valve thickening and a probable rheumatic mitral valve with 3-4+ regurgitation and moderate stenosis. Today patient and her present to Coumadin clinic for initial visit. Patient has taken 5mg daily for 3 days and INR is 4.9 today. Patient complains of a dull headache today as well as lower back pain that started about 3-4 days ago. Patient denies UTI symptoms or stroke symptoms. Advised her to contact PCP if symptoms persist or go to ED if symptoms worsen. Educated her on the side effects of beta blockers as she recently started metoprolol and onset of LAMB coincides. As INR has increased very rapidly will have patient hold for 2 days then decrease to 2.5mg for 3 days. Of note, patient to be scheduled for MEERA, R and L heart cath on 03/31; will need to hold warfarin 5 days prior to procedure per Dr. Perez. Educate patient on this at next visit as well as what dose of warfarin to restart post-procedure. Counseled patient on indication for warfarin, risk of bleeding and bruising, importance of monitoring INR, diet interactions, medication interactions, risk of alcohol and importance of communication regarding upcoming procedures. Provided patient handout from [email or web address]. Patient's heart rate was 100-150 at visit. She recently started metoprolol tartrated 12.5mg BID. Sent message to Dr. Perez regarding findings as increase in metoprolol may be beneficial. Dr. Perez will cautiously increase dose, starting at 25mg BID today. Medication list reviewed and reconciled. Rachel Palomares PharmD CNOV Observed: 03/19/2018 Status: COMPLETED Source: [place] 9:00 AM CLINIC OTHER CAMPUS REPOSITORY Office Visit (AGINT[facility]) GLORIA MATHEW ([id number]) 1940 F Date Time Provider Department 03/19/18 9:00 AM [facility] During your visit today, we recorded the following information about you: Pulse Respiration Blood pressure 150/minute 30/minute 103/54 JUHI BINGHAM 03/19/2018 4:40 PM Signed Referred by: Dr. Perez Indication: New onset valvular AFib, Rheumatic mitral regurgitation, Rheumatic mitral stenosis INR goal: 2.0-3.0 Duration: Indefinite Bridging assessment and details: Low risk of therapy interruption. CHADS-VASC = 3 (age, female) Consult agreement signed by physician. Patient has been notified verbally and/or in writing of the terms of the pharmacist-physician consult agreement for the anticoagulation clinic. Date: 03/19/2018 INR Date Value Ref Range Status 03/19/2018 4.9 (A) 0.81 - 1.21 Final 03/19/18 0917 BP: 103/54 Pulse: (!) 150 Resp: 30 Current warfarin dose: 2.5mg daily ( new start as of 03/16/18 - dose being titrated) Anticoagulation Warfarin Dose Instructions as of 03/19/2018 Sun Thu Sat New Dose 2.5 mg 2.5 mg 2.5 mg 0 mg 0 mg Hold Hold Description HOLD warfarin dose today (03/19) and Thursday (03/20). Take 2.5mg (1/2 tablet) Thursday, Thursday, Thursday. Recheck Saturday 03/24. Received new referral from Dr. Perez. Patient started warfarin 5mg daily on 03/16 for valvular new onset A Fib with RVR. Goal 2.0-3.0 with indefinite duration. Echo on 07/13/17 showed EF 60%, moderate to severe pulmonary hypertension, 1-2+ recurrent regurgitation, aortic valve thickening and a probable rheumatic mitral valve with 3-4+ regurgitation and moderate stenosis. Today patient and her present to Coumadin clinic for initial visit. Patient has taken 5mg daily for 3 days and INR is 4.9 today. Patient complains of a dull headache today as well as lower back pain that started about 3-4 days ago. Patient denies UTI symptoms or stroke symptoms. Advised her to contact PCP if symptoms persist or go to ED if symptoms worsen. Educated her on the side effects of beta blockers as she recently started metoprolol and onset of LAMB coincides. As INR has increased very rapidly will have patient hold for 2 days then decrease to 2.5mg for 3 days. Of note, patient to be scheduled for MEERA, R and L heart cath on 03/31; will need to hold warfarin 5 days prior to procedure per Dr. Perez. Educate patient on this at next visit as well as what dose of warfarin to restart post-procedure. Counseled patient on indication for warfarin, risk of bleeding and bruising, importance of monitoring INR, diet interactions, medication interactions, risk of alcohol and importance of communication regarding upcoming procedures. Provided patient handout from [email or web address]. Patient's heart rate was 100-150 at visit. She recently started metoprolol tartrated 12.5mg BID. Sent message to Dr. Perez regarding findings as increase in metoprolol may be beneficial. Dr. Perez will cautiously increase dose, starting at 25mg BID today. Medication list reviewed and reconciled. Rachel Palomares, PharmD Referring Provider: JEAN-PIERRE PEREZ [[id number]] Allergies As of Date: 03/19/2018 (No Known Allergies) Date Reviewed: 03/19/2018 Reviewed by: Ligia (Callie) CALLIE Bloom - Fully Assessed Reason for Visit: Anticoagulation [8] Visit Diagnoses:FPC current use of 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 [Z79.01] Paroxysmal atrial fibrillation (HCC) [I48.0] Order(s):INR FINGERSTICK B/O [[id number]] Order #: [id number] Prescriptions as of 03/19/2018 Sig: CALCIUM CARBONATE 600 MG CALC* Take 600 mg by mouth once mirta* WARFARIN 5 MG TABLET TAKE 1 TABLET BY MOUTH EVERY * Patient taking differently: Take 2.5mg (1/2 tablet) daily X METOPROLOL TARTRATE 25 MG TAB* TAKE 1/2 TABLET BY MOUTH TWIC* PROAIR HFA 90 MCG/ACTUATION A* CHOLESTYRAMINE (WITH SUGAR) 4* Take 1 Packet by mouth once d* GABAPENTIN 100 MG CAPSULE Take 200 mg by mouth once mirta* ALENDRONATE 70 MG TABLET Take 70 mg by mouth once each* VITAMIN B COMPLEX TABLET Take 1 tablet by mouth once d* BIOTIN 5,000 MCG-SILICON DIOX* Take 1 tablet by mouth once d* MULTIVITAMIN TABLET Take 1 tablet by mouth once d* VITAMIN B-12 ORAL Take 1 tablet by mouth. 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 Disc: Changing Therapy/Dosage Form Follow-up and Disposition History Recorded Encounter Status:Closed by SAMMY (PHARMACIST)RACHEL on 03/19/18 Chart Close Cosign Required by: Adalid Lizarraga[] PROGRESS Observed: 03/16/2018 Status: COMPLETED Source: [place] 2:24 PM CLINIC OTHER CAMPUS REPOSITORY HNO ID: [id number] Author: Karla Lamb) Kristine Service: (none) Author Type: Nurse Practitioner Type: Progress Notes Filed: 03/16/2018 6:06 PM Note Text: Subjective HPI Gloria Mathew is today seen for follow-up per request for symptoms of chest pain and palpitations. Patient was evaluated by Dr. Perez in July for 3-4+ mitral regurgitation with moderate mitral stenosis she's felt to have rheumatic disease secondary to previous rheumatic fever. At that time she had mild exertional dyspnea, and obstructive sleep apnea there is treated with CPAP. She over the weekend was eating a [employer] and suddenly felt unwell on Thursday afternoon. She developed symptoms of palpitations and chest pressure. On physical exam she has tachycardic and irregular, EKG confirms the same she is in atrial fibrillation with rapid ventricular response, heart rates 134 to 150s. I did review with Dr. Perez given her valvular heart disease she was given 2 options has treated the more conservative approach. We've placed patient on metoprolol for rate control, and started her on warfarin for valvular atrial fibrillation. She is to have INR lab work drawn through the Coumadin clinic on 03/19/2018. He was plan to bring her in in a few weeks for right and left heart catheter and MEERA for workup for likely mitral valve surgery. Currently she has fatigue she is a little short of breath and has palpitations and chest pressure as above. She's had no dizziness, no lightheadedness, no near, or caesar syncope. Review of Systems Constitutional: Positive for malaise/fatigue. Negative for chills, diaphoresis, fever and weight loss. HENT: Negative for congestion, ear pain, hearing loss, nosebleeds, sore throat and tinnitus. Eyes: Negative for blurred vision, double vision, photophobia and redness. Respiratory: Positive for shortness of breath. Negative for cough, wheezing and stridor. Cardiovascular: Positive for palpitations. Negative for chest pain, orthopnea, claudication, leg swelling and PND. Chest pressure Gastrointestinal: Negative for abdominal pain, blood in stool, constipation, diarrhea, heartburn, melena, nausea and vomiting. Genitourinary: Negative for dysuria, flank pain, frequency, hematuria and urgency. Musculoskeletal: Negative for back pain, falls, joint pain, myalgias and neck pain. Skin: Negative for rash. Neurological: Negative for dizziness, tingling, tremors, sensory change, speech change, focal weakness, seizures, loss of consciousness, weakness and headaches. LAMB Endo/Heme/Allergies: Negative for environmental allergies and polydipsia. Does not bruise/bleed easily. Psychiatric/Behavioral: Negative for depression, hallucinations, memory loss, substance abuse and suicidal ideas. The patient is not nervous/anxious and does not have insomnia. Patient has no known allergies. Current Outpatient Prescriptions: PROAIR HFA 90 mcg/actuation inhaler Disp: Rfl: cholestyramine (QUESTRAN) 4 gram packet Disp: Rfl: gabapentin (NEURONTIN) 100 mg capsule Disp: Rfl: simvastatin (ZOCOR) 10 mg tablet Take 10 mg by mouth daily at bedtime. Disp: Rfl: alendronate (FOSAMAX) 70 mg tablet Take 70 mg by mouth once each week. Disp: Rfl: calcium, elemental, tab Take by mouth twice daily. Disp: Rfl: vitamin b complex tab Take 1 tablet by mouth once daily. Disp: Rfl: Biotin-Silicon Skvi-R-Osfbtlia 5,000 mcg-100 mg- 50 mg tab Take 1 tablet by mouth once daily. Disp: Rfl: multivitamin tablet Take 1 tablet by mouth once daily. Disp: Rfl: CYANOCOBALAMIN, VITAMIN B-12, (VITAMIN B-12 ORAL) Take 1 tablet by mouth. Disp: Rfl: Cholecalciferol, Vitamin D3, 1,000 unit cap Take 1,000 Units by mouth once daily. Disp: Rfl: metoprolol tartrate, short acting, (LOPRESSOR) 25 mg tablet TAKE 1/2 TABLET BY MOUTH TWICE DAILY Disp: 90 tablet Rfl: 3 warfarin (COUMADIN) 5 mg tablet TAKE 1 TABLET BY MOUTH EVERY DAY Disp: 90 tablet Rfl: 3 rOPINIRole (REQUIP) 1 mg tablet Take 2 mg by mouth daily at bedtime. Disp: Rfl: ROPINIROLE HCL (REQUIP ORAL) Take 1 capsule by mouth once daily. Disp: Rfl: No current facility-administered medications for this visit. Social History Marital status: Spouse name: Years of education: Number of children: Social History Main Topics Smoking status: Never Smoker Smokeless tobacco: Never Used Alcohol use: No Drug use: No Other Topics Concern Caffeine Concern No Special Diet No Comment:average Exercise No Comment:sedentary FAMILY HISTORY Problem Relation Age of Onset - Breast Cancer Mother stage III - Coronary Artery Disease Mother mother, uncle - Cancer Paternal Grandfather - Colon Cancer Maternal Grandmother - Diabetes Other uncle - Stroke Maternal Grandfather PAST MEDICAL HISTORY Diagnosis Date - Breast mass, right - IBS (irritable bowel syndrome) - Mitral valve regurgitation - Mitral valve stenosis - Pulmonary HTN (HCC) - Tricuspid regurgitation PAST SURGICAL HISTORY Procedure Laterality Date - BREAST BIOPSY - CHOLECYSTECTOMY HX 10/02/2011 - HYSTERECTOMY HX MARYELLEN/BLO - LEG SURGERY HX BP 106/74 Pulse 81 Resp 16 Ht 5' 2 (1.58m) Wt 150 lb 6.4 oz (68.2kg) SpO2 94% BMI 27.50 kg/(m2). Objective Physical Exam Constitutional: She is oriented to person, place, and time and well-developed, well-nourished, and in no distress. No distress. HENT: Head: Normocephalic and atraumatic. Mouth/Throat: Oropharynx is clear and moist. Eyes: Conjunctivae are normal. No scleral icterus. Neck: Normal range of motion. Neck supple. No JVD present. Carotid bruit is not present. Cardiovascular: S1 normal, S2 normal, intact distal pulses and normal pulses. An irregular rhythm present. Tachycardia present. Exam reveals no gallop, no S3, no distant heart sounds and no friction rub. No murmur heard. No systolic murmur is present No diastolic murmur is present Pulses: Radial pulses are 2+ on the right side, and 2+ on the left side. Dorsalis pedis pulses are 2+ on the right side, and 2+ on the left side. Pulmonary/Chest: Effort normal and breath sounds normal. No respiratory distress. She has no wheezes. She has no rales. She exhibits no tenderness. Abdominal: Bowel sounds are normal. She exhibits no distension. There is no tenderness. There is no guarding. Musculoskeletal: Normal range of motion. She exhibits deformity. She exhibits no edema or tenderness. Neurological: She is alert and oriented to person, place, and time. No cranial nerve deficit. Gait normal. Coordination normal. Skin: Skin is warm and dry. No rash noted. She is not diaphoretic. No erythema. No pallor. Psychiatric: Mood, memory, affect and judgment normal. Cardiac testing: Echocardiogram to 05/23/17: EF 55-60%, 3-4+ MR, moderate to severe mitral stenosis, 1-2+ TR, RVSP = 61 mmHg. Recommendations: 1. New onset paroxysmal atrial fibrillation with rapid ventricular response: I did review patient's EKG with Dr. Perez, plan will be to rate control and anticoagulate at this time, as likely this is driven by her worsening mitral valve disease. We'll place patient on 12.5 mg of Lopressor twice a day, we'll start warfarin 5 mg daily at at bedtime she is have follow-up appointment with the Coumadin clinic for management of her INR on 03/19/2018. Goal range for INR should be between 2 and 3. She is not a candidate for an NOAC therapy secondary to true valvular A. Fib. 2. 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 She'll have an outpatient right left heart catheter and MEERA by Dr. Perez in approximate 2 weeks time. Patient likely will need outpatient cardiac surgery for mitral valve repair based on these findings and currently appears to be stable.. 3. Mild exertional dyspnea: Patient continues to have dyspnea symptoms may be slightly worse than previous. Likely related to atrial fibrillation, and valvular heart disease. 4. Obstructive sleep apnea: She is compliant with CPAP. Follow-up: Patient will have treatment as above, she'll have outpatient workup for eventual mitral valve surgery. She will follow with Dr. Perez in the office in 2 months, she is instructed to call with other symptoms or complaints. Thank you FLACA Observed: 03/16/2018 Status: COMPLETED Source: [place] 2:00 PM CLINIC OTHER CAMPUS REPOSITORY Office Visit (AGCARDPOB) GLORIA MATHEW ([id number]) 1940 F Date Time Provider Department 03/16/18 2:00 PM KARLA KRISHNA (DITTO MACHINE OPERATOR) AGCARDPOB During your visit today, we recorded the following information about you: Pulse Respiration Blood pressure Weight 81/minute 16/minute 106/74 68.2 kg Height 1.575 m Bean Hong MA 03/16/2018 2:09 PM Signed Pt c/o some intermittent palpitations, and chest discomfort. No other cardiac complaints. KARLA Calderon. Karla Krishna APRN.CNP 03/16/2018 6:06 PM Signed Subjective HPI Gloria Mathew is today seen for follow-up per request for symptoms of chest pain and palpitations. Patient was evaluated by Dr. Perez in July for 3-4+ mitral regurgitation with moderate mitral stenosis she's felt to have rheumatic disease secondary to previous rheumatic fever. At that time she had mild exertional dyspnea, and obstructive sleep apnea there is treated with CPAP. She over the weekend was eating a [employer] and suddenly felt unwell on Thursday afternoon. She developed symptoms of palpitations and chest pressure. On physical exam she has tachycardic and irregular, EKG confirms the same she is in atrial fibrillation with rapid ventricular response, heart rates 134 to 150s. I did review with Dr. Perez given her valvular heart disease she was given 2 options has treated the more conservative approach. We've placed patient on metoprolol for rate control, and started her on warfarin for valvular atrial fibrillation. She is to have INR lab work drawn through the Coumadin clinic on 03/19/2018. He was plan to bring her in in a few weeks for right and left heart catheter and MEERA for workup for likely mitral valve surgery. Currently she has fatigue she is a little short of breath and has palpitations and chest pressure as above. She's had no dizziness, no lightheadedness, no near, or caesar syncope. Review of Systems Constitutional: Positive for malaise/fatigue. Negative for chills, diaphoresis, fever and weight loss. HENT: Negative for congestion, ear pain, hearing loss, nosebleeds, sore throat and tinnitus. Eyes: Negative for blurred vision, double vision, photophobia and redness. Respiratory: Positive for shortness of breath. Negative for cough, wheezing and stridor. Cardiovascular: Positive for palpitations. Negative for chest pain, orthopnea, claudication, leg swelling and PND. Chest pressure Gastrointestinal: Negative for abdominal pain, blood in stool, constipation, diarrhea, heartburn, melena, nausea and vomiting. Genitourinary: Negative for dysuria, flank pain, frequency, hematuria and urgency. Musculoskeletal: Negative for back pain, falls, joint pain, myalgias and neck pain. Skin: Negative for rash. Neurological: Negative for dizziness, tingling, tremors, sensory change, speech change, focal weakness, seizures, loss of consciousness, weakness and headaches. LAMB Endo/Heme/Allergies: Negative for environmental allergies and polydipsia. Does not bruise/bleed easily. Psychiatric/Behavioral: Negative for depression, hallucinations, memory loss, substance abuse and suicidal ideas. The patient is not nervous/anxious and does not have insomnia. Patient has no known allergies. Current Outpatient Prescriptions: PROAIR HFA 90 mcg/actuation inhaler Disp: Rfl: cholestyramine (QUESTRAN) 4 gram packet Disp: Rfl: gabapentin (NEURONTIN) 100 mg capsule Disp: Rfl: simvastatin (ZOCOR) 10 mg tablet Take 10 mg by mouth daily at bedtime. Disp: Rfl: alendronate (FOSAMAX) 70 mg tablet Take 70 mg by mouth once each week. Disp: Rfl: calcium, elemental, tab Take by mouth twice daily. Disp: Rfl: vitamin b complex tab Take 1 tablet by mouth once daily. Disp: Rfl: Biotin-Silicon Pfzn-N-Rtxjxwzm 5,000 mcg-100 mg- 50 mg tab Take 1 tablet by mouth once daily. Disp: Rfl: multivitamin tablet Take 1 tablet by mouth once daily. Disp: Rfl: CYANOCOBALAMIN, VITAMIN B-12, (VITAMIN B-12 ORAL) Take 1 tablet by mouth. Disp: Rfl: Cholecalciferol, Vitamin D3, 1,000 unit cap Take 1,000 Units by mouth once daily. Disp: Rfl: metoprolol tartrate, short acting, (LOPRESSOR) 25 mg tablet TAKE 1/2 TABLET BY MOUTH TWICE DAILY Disp: 90 tablet Rfl: 3 warfarin (COUMADIN) 5 mg tablet TAKE 1 TABLET BY MOUTH EVERY DAY Disp: 90 tablet Rfl: 3 rOPINIRole (REQUIP) 1 mg tablet Take 2 mg by mouth daily at bedtime. Disp: Rfl: ROPINIROLE HCL (REQUIP ORAL) Take 1 capsule by mouth once daily. Disp: Rfl: No current facility-administered medications for this visit. Social History Marital status: Spouse name: Years of education: Number of children: Social History Main Topics Smoking status: Never Smoker Smokeless tobacco: Never Used Alcohol use: No Drug use: No Other Topics Concern Caffeine Concern No Special Diet No Comment:average Exercise No Comment:sedentary FAMILY HISTORY Problem Relation Age of Onset - Breast Cancer Mother stage III - Coronary Artery Disease Mother mother, uncle - Cancer Paternal Grandfather - Colon Cancer Maternal Grandmother - Diabetes Other uncle - Stroke Maternal Grandfather PAST MEDICAL HISTORY Diagnosis Date - Breast mass, right - IBS (irritable bowel syndrome) - Mitral valve regurgitation - Mitral valve stenosis - Pulmonary HTN (HCC) - Tricuspid regurgitation PAST SURGICAL HISTORY Procedure Laterality Date - BREAST BIOPSY - CHOLECYSTECTOMY HX 10/02/2011 - HYSTERECTOMY HX MARYELLEN/BLO - LEG SURGERY HX BP 106/74 Pulse 81 Resp 16 Ht 5' 2 (1.58m) Wt 150 lb 6.4 oz (68.2kg) SpO2 94% BMI 27.50 kg/(m2). Objective Physical Exam Constitutional: She is oriented to person, place, and time and well-developed, well-nourished, and in no distress. No distress. HENT: Head: Normocephalic and atraumatic. Mouth/Throat: Oropharynx is clear and moist. Eyes: Conjunctivae are normal. No scleral icterus. Neck: Normal range of motion. Neck supple. No JVD present. Carotid bruit is not present. Cardiovascular: S1 normal, S2 normal, intact distal pulses and normal pulses. An irregular rhythm present. Tachycardia present. Exam reveals no gallop, no S3, no distant heart sounds and no friction rub. No murmur heard. No systolic murmur is present No diastolic murmur is present Pulses: Radial pulses are 2+ on the right side, and 2+ on the left side. Dorsalis pedis pulses are 2+ on the right side, and 2+ on the left side. Pulmonary/Chest: Effort normal and breath sounds normal. No respiratory distress. She has no wheezes. She has no rales. She exhibits no tenderness. Abdominal: Bowel sounds are normal. She exhibits no distension. There is no tenderness. There is no guarding. Musculoskeletal: Normal range of motion. She exhibits deformity. She exhibits no edema or tenderness. Neurological: She is alert and oriented to person, place, and time. No cranial nerve deficit. Gait normal. Coordination normal. Skin: Skin is warm and dry. No rash noted. She is not diaphoretic. No erythema. No pallor. Psychiatric: Mood, memory, affect and judgment normal. Cardiac testing: Echocardiogram to 05/23/17: EF 55-60%, 3-4+ MR, moderate to severe mitral stenosis, 1-2+ TR, RVSP = 61 mmHg. Recommendations: 1. New onset paroxysmal atrial fibrillation with rapid ventricular response: I did review patient's EKG with Dr. Perez, plan will be to rate control and anticoagulate at this time, as likely this is driven by her worsening mitral valve disease. We'll place patient on 12.5 mg of Lopressor twice a day, we'll start warfarin 5 mg daily at at bedtime she is have follow- up appointment with the Coumadin clinic for management of her INR on 03/19/2018. Goal range for INR should be between 2 and 3. She is not a candidate for an NOAC therapy secondary to true valvular A. Fib. 2. 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 She'll have an outpatient right left heart catheter and MEERA by Dr. Perez in approximate 2 weeks time. Patient likely will need outpatient cardiac surgery for mitral valve repair based on these findings and currently appears to be stable.. 3. Mild exertional dyspnea: Patient continues to have dyspnea symptoms may be slightly worse than previous. Likely related to atrial fibrillation, and valvular heart disease. 4. Obstructive sleep apnea: She is compliant with CPAP. Follow-up: Patient will have treatment as above, she'll have outpatient workup for eventual mitral valve surgery. She will follow with Dr. Perez in the office in 2 months, she is instructed to call with other symptoms or complaints. Thank you Karla Krishna APRN.DITTO MACHINE OPERATOR 03/16/2018 2:52 PM Signed Atrial Fibrillation What is atrial fibrillation? Atrial fibrillation (also called A-fib) is a fast or irregular heartbeat that starts in the upper chambers of the heart. The abnormal heartbeat affects the ability of the heart to pump blood to the rest of the body. What is the cause? An electrical signal in your heart starts each heartbeat, causing the heart muscle to squeeze (contract). Normally, this signal starts in the upper right chamber of the heart (the right atrium) at a place called the sinus node. The signal then follows normal pathways to the upper left atrium and to the lower chambers of the heart (the ventricles). When you have atrial fibrillation, electrical signals don?t start in the normal place in the right atrium and don?t travel normally. This can cause the upper chambers of the heart (atria) to beat very fast and not in a normal pattern. Common causes of heart rhythm problems are conditions that damage the heart, like coronary artery disease, heart attack, or heart failure. Problems with the heart valves are another common cause. The heart has 4 valves that open and close with each heartbeat to help blood flow in the right direction through the heart. Other causes of atrial fibrillation include: -Health problems, such as a stroke, lung disease, diabetes, overactive thyroid gland, or high blood pressure -Abuse of alcohol or drugs, such as cocaine Sometimes no cause can be found. What are the symptoms? Some people don?t have any symptoms. When atrial fibrillation does cause symptoms, the most common ones are: -Feeling like your heart is beating too fast or too hard or skipping beats or fluttering -Feeling tired or weak all the time Symptoms that are more serious include: -Chest pain -Trouble breathing -Lightheadedness or dizziness -Confusion How is it diagnosed? Your healthcare provider will ask about your symptoms and medical history and examine you. Tests may include: -An ECG (also called an EKG), which measures and records your heartbeat. You may have an ECG while you are resting or while you exercise on a treadmill. You may also be asked to wear a small portable ECG monitor for a few days or sometimes a couple weeks. -Blood tests -An echocardiogram, which uses sound waves (ultrasound) to show the structures of the heart, like the valves How is it treated? The goal of treatment is to help the heart keep a normal rhythm. Your treatment depends on the cause of the atrial fibrillation, how often you have symptoms, and the severity of your symptoms. If you have no symptoms, or your symptoms are fairly mild, you may not need treatment. For some people atrial fibrillation lasts just a short time and the heart goes back to a normal rhythm on its own. If you keep having spells of atrial fibrillation, treatment may help keep you from having so many spells. If a health problem like a leaky heart valve is causing the atrial fibrillation, treating the health problem may also treat the fast or irregular heartbeat. Other possible treatments are: -Medicine: Your provider may prescribe medicine to slow or restore a normal heart rate and rhythm. You may also need medicine to prevent blood clots because when the heart beats irregularly, some of the blood can stay in the upper chambers too long. This makes it easier for blood clots to form, increasing your risk of having a stroke or heart attack. -Electrical cardioversion: First, you will be given medicine called anesthesia to keep you from feeling pain during the procedure. Then your chest will be given an electrical shock. The electrical shock should make your heart start beating normally again. You may need medicine to keep your heart rhythm normal after this procedure. -Ablation: Ablation is a procedure that uses a small tube called a catheter to deliver energy to the inside of the heart. The energy (usually radio waves) scars small areas of heart tissue. The scars block abnormal electrical pathways and help you have a normal heart rhythm. With some types of ablation treatment, you will also need a pacemaker. A pacemaker is an electronic device put under the skin of your chest to help control the heartbeat. How can I take care of myself? -Take your medicines as prescribed. -Keep your appointments for follow-up blood tests. -Make sure your healthcare provider knows about changes in your diet or medical condition. Your provider also needs to know about all prescription and nonprescription medicines, herbs, or supplements that you are taking. Some medicines may interact with your heart medicine or increase your risk for atrial fibrillation. -If you want to drink alcohol, ask your provider how much is safe for you to drink. -Follow your healthcare provider's instructions. Ask your provider: ?How and when you will hear your test results ?How long it will take to recover ?What activities you should avoid and when you can return to your normal activities ?How to take care of yourself at home ?What symptoms or problems you should watch for and what to do if you have them -Make sure you know when you should come back for a checkup. How can I help prevent atrial fibrillation? The best prevention is to have a heart-healthy lifestyle. -Keep a healthy weight. -Eat a healthy diet that is low in sodium and saturated and trans fat. -Stay fit with the right kind of exercise for you. -Decrease stress. -Don?t smoke. -Limit your use of alcohol. If you have heart disease or high blood pressure, follow your healthcare provider's instructions for treatment. Developed by [employer]. Published by [employer]. Copyright ?2013 [employer] and/or one of its subsidiaries. All rights reserved. 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 VITAMIN B COMPLEX TABLET Take 1 tablet by mouth once d* BIOTIN 5,000 MCG-SILICON DIOX* Take 1 tablet by mouth once d* MULTIVITAMIN TABLET Take 1 tablet by mouth once d* VITAMIN B-12 ORAL Take 1 tablet by mouth. CHOLECALCIFEROL (VITAMIN D3) * Take 1,000 Units by mouth onc* X METOPROLOL TARTRATE 25 MG TAB* Take 0.5 tablets by mouth twi* X WARFARIN 5 MG TABLET Take 1 tablet by mouth once d* ROPINIROLE 1 MG TABLET Take 2 mg by mouth daily at b* REQUIP ORAL Take 1 capsule by mouth once * Medication notes this encounter BIOTIN 5,000 MCG-SILICON DIOXIDE 100 SF-H-GHERMATI 50 MG TABLET >> Bean Hong MA 03/16/2018 2:07 PM >> BEAN HONG MA ThuMar 16, 2018 2:07 PM Not taking ROPINIROLE 1 MG TABLET >> Bean Hong MA 03/16/2018 2:07 PM >> BEAN HONG MA giacomo Mar 16, 2018 2:07 PM Not taking CIPROFLOXACIN 500 MG TABLET >> Bean Hong MA 03/16/2018 2:07 PM >> BEAN HONG MA giacomo Mar 16, 2018 2:07 PM Not taking DICYCLOMINE 20 MG TABLET >> Bean Hong MA 03/16/2018 2:07 PM >> BEAN HONG MA giacomo Mar 16, 2018 2:07 PM Not taking METRONIDAZOLE 500 MG TABLET >> Bean Hong MA 03/16/2018 2:07 PM >> BEAN HONG MA Mar 16, 2018 2:07 PM Not taking ESCITALOPRAM 10 MG TABLET >> Bean Hong MA 03/16/2018 2:07 PM >> BEAN HONG MA Mar 16, 2018 2:07 PM Not taking REQUIP ORAL >> Bean Hong MA 03/16/2018 2:07 PM >> BEAN HONG MA Mar 16, 2018 2:07 PM Not taking Problem List As Of Date 03/16/2018 Noted Resolved Fibrocystic breast changes [N60.19] INVALID FOR*07/11/2015 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 Atrial fibrillation (also called A-fib) is a fast or irregular heartbeat that starts in the upper chambers of the heart. The abnormal heartbeat affects the ability of the heart to pump blood to the rest of the body. What is the cause? An electrical signal in your heart starts each heartbeat, causing the heart muscle to squeeze (contract). Normally, this signal starts in the upper right chamber of the heart (the right atrium) at a place called the sinus node. The signal then follows normal pathways to the upper left atrium and to the lower chambers of the heart (the ventricles). When you have atrial fibrillation, electrical signals don?t start in the normal place in the right atrium and don?t travel normally. This can cause the upper chambers of the heart (atria) to beat very fast and not in a normal pattern. Common causes of heart rhythm problems are conditions that damage the heart, like coronary artery disease, heart attack, or heart failure. Problems with the heart valves are another common cause. The heart has 4 valves that open and close with each heartbeat to help blood flow in the right direction through the heart. Other causes of atrial fibrillation include: -Health problems, such as a stroke, lung disease, diabetes, overactive thyroid gland, or high blood pressure -Abuse of alcohol or drugs, such as cocaine Sometimes no cause can be found. What are the symptoms? Some people don?t have any symptoms. When atrial fibrillation does cause symptoms, the most common ones are: -Feeling like your heart is beating too fast or too hard or skipping beats or fluttering -Feeling tired or weak all the time Symptoms that are more serious include: -Chest pain -Trouble breathing -Lightheadedness or dizziness -Confusion How is it diagnosed? Your healthcare provider will ask about your symptoms and medical history and examine you. Tests may include: -An ECG (also called an EKG), which measures and records your heartbeat. You may have an ECG while you are resting or while you exercise on a treadmill. You may also be asked to wear a small portable ECG monitor for a few days or sometimes a couple weeks. -Blood tests -An echocardiogram, which uses sound waves (ultrasound) to show the structures of the heart, like the valves How is it treated? The goal of treatment is to help the heart keep a normal rhythm. Your treatment depends on the cause of the atrial fibrillation, how often you have symptoms, and the severity of your symptoms. If you have no symptoms, or your symptoms are fairly mild, you may not need treatment. For some people atrial fibrillation lasts just a short time and the heart goes back to a normal rhythm on its own. If you keep having spells of atrial fibrillation, treatment may help keep you from having so many spells. If a health problem like a leaky heart valve is causing the atrial fibrillation, treating the health problem may also treat the fast or irregular heartbeat. Other possible treatments are: -Medicine: Your provider may prescribe medicine to slow or restore a normal heart rate and rhythm. You may also need medicine to prevent blood clots because when the heart beats irregularly, some of the blood can stay in the upper chambers too long. This makes it easier for blood clots to form, increasing your risk of having a stroke or heart attack. -Electrical cardioversion: First, you will be given medicine called anesthesia to keep you from feeling pain during the procedure. Then your chest will be given an electrical shock. The electrical shock should make your heart start beating normally again. You may need medicine to keep your heart rhythm normal after this procedure. -Ablation: Ablation is a procedure that uses a small tube called a catheter to deliver energy to the inside of the heart. The energy (usually radio waves) scars small areas of heart tissue. The scars block abnormal electrical pathways and help you have a normal heart rhythm. With some types of ablation treatment, you will also need a pacemaker. A pacemaker is an electronic device put under the skin of your chest to help control the heartbeat. How can I take care of myself? -Take your medicines as prescribed. -Keep your appointments for follow-up blood tests. -Make sure your healthcare provider knows about changes in your diet or medical condition. Your provider also needs to know about all prescription and nonprescription medicines, herbs, or supplements that you are taking. Some medicines may interact with your heart medicine or increase your risk for atrial fibrillation. -If you want to drink alcohol, ask your provider how much is safe for you to drink. -Follow your healthcare provider's instructions. Ask your provider: ?How and when you will hear your test results ?How long it will take to recover ?What activities you should avoid and when you can return to your normal activities ?How to take care of yourself at home ?What symptoms or problems you should watch for and what to do if you have them -Make sure you know when you should come back for a checkup. How can I help prevent atrial fibrillation? The best prevention is to have a heart-healthy lifestyle. -Keep a healthy weight. -Eat a healthy diet that is low in sodium and saturated and trans fat. -Stay fit with the right kind of exercise for you. -Decrease stress. -Don?t smoke. -Limit your use of alcohol. If you have heart disease or high blood pressure, follow your healthcare provider's instructions for treatment. Developed by [employer]. Published by [employer]. Copyright ?2013 [employer] and/or one of its subsidiaries. All rights reserved. Visit Notes: >> Bean Tee Mar 16, 2018 2:02 PM Status: Signed Pt c/o some intermittent palpitations, and chest discomfort. No other cardiac complaints. Bean Hong, KARLA. Prescriptions ordered this encounter Disp Refills Start End METOPROLOL TARTRATE 25 MG TABLET 30 t* 5 03/16/2018 03/16/2018 Route: ORAL Sig: Take 0.5 tablets by mouth twice daily. WARFARIN 5 MG TABLET 30 t* 5 03/16/2018 03/16/2018 Route: ORAL Sig: Take 1 tablet by mouth once daily. Medications Discontinued During This Encounter ciprofloxacin HCl (CIPRO) 500 mg tab* 07/06/2017 03/16/2018 Class: Historical Med Sig: Disc: Course of therapy completed metroNIDAZOLE (FLAGYL) 500 mg tablet 07/06/2017 03/16/2018 Class: Historical Med Sig: Disc: Course of therapy completed dicyclomine (BENTYL) 20 mg tablet 07/06/2017 03/16/2018 Class: Historical Med Sig: Disc: Course of therapy completed escitalopram oxalate (LEXAPRO) 10 mg* 06/04/2015 03/16/2018 Class: Historical Med Sig: Disc: Discontinued by another Health Care Provider Disposition: Return in about 3 months (around 06/16/2018) for Dr. Perez. Follow-up and Disposition History Recorded Letter Text Encounter Status:Closed by KARLA KRISHNA CNP on 03/16/18 OBSOLETE Observed: 03/16/2018 Status: COMPLETED Source: [place] 12:00 AM CLINIC OTHER [place] REPOSITORY Refill (AGCARDPOB) GLORIA MATHEW ([id number]) 1940 F Date Time Provider Department 03/16/18 KARLA KRISHNA) AGCARDPOB During your visit today, we recorded the following information about you: Carey Franco LPN 03/16/2018 3:07 PM Signed Pharmacy electronically requesting refills as follows: Pending Prescriptions Disp Refills METOPROLOL TARTRATE 25 MG TABLET 90 tablet 3 Sig: TAKE 1/2 TABLET BY MOUTH TWICE DAILY AKBAR: Yes WARFARIN 5 MG TABLET 90 tablet 3 Sig: TAKE 1 TABLET BY MOUTH EVERY DAY AKBAR: Yes Patient requesting a 90 day supply due to insurance coverage. Please review and advise. 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 [Z79.01] Order(s):metoprolol tartrate, short acting, (LOPRESSOR) 25 mg tabletTAKE 1/2 TABLET BY MOUTH TWICE DAILYDisp: 90 tabletRfl: 3 warfarin (COUMADIN) 5 mg tabletTAKE 1 TABLET BY MOUTH EVERY DAYDisp: 90 tabletRfl: 3 Prescriptions as of 03/16/2018 Sig: METOPROLOL TARTRATE 25 MG TAB* TAKE 1/2 TABLET BY MOUTH TWIC* WARFARIN 5 MG TABLET TAKE 1 TABLET BY MOUTH EVERY * ROPINIROLE 1 MG TABLET Take 2 mg by mouth daily at b* PROAIR HFA 90 MCG/ACTUATION A* CHOLESTYRAMINE (WITH SUGAR) 4* GABAPENTIN 100 MG CAPSULE SIMVASTATIN 10 MG TABLET Take 10 mg by mouth daily at * ALENDRONATE 70 MG TABLET Take 70 mg by mouth once each* CALCIUM 500 MG TABLET Take by mouth twice daily. VITAMIN B COMPLEX TABLET Take 1 tablet by mouth once d* BIOTIN 5,000 MCG-SILICON DIOX* Take 1 tablet by mouth once d* MULTIVITAMIN TABLET Take 1 tablet by mouth once d* REQUIP ORAL Take 1 capsule by mouth once * VITAMIN B-12 ORAL Take 1 tablet by mouth. 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 Mitral valve stenosis [I05.0] Mitral valve regurgitation [I34.0] Paroxysmal atrial fibrillation (HCC) [I48.0] INVALID FOR* FPC (current) use of 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s [Z79.*INVALID FOR* Prescriptions ordered this encounter Disp Refills Start End METOPROLOL TARTRATE 25 MG TABLET 90 t* 3 03/16/2018 Cmt: Patient requests 90 days supply Sig: TAKE 1/2 TABLET BY MOUTH TWICE DAILY WARFARIN 5 MG TABLET 90 t* 3 03/16/2018 Cmt: Patient requests 90 days supply Sig: TAKE 1 TABLET BY MOUTH EVERY DAY Medications Discontinued During This Encounter metoprolol tartrate, short acting, (* 30 t* 5 03/16/2018 03/16/2018 Route: ORAL Sig: Take 0.5 tablets by mouth twice daily. Disc: Reason for discontinue is not on file. warfarin (COUMADIN) 5 mg tablet 30 t* 5 03/16/2018 03/16/2018 Route: ORAL Sig: Take 1 tablet by mouth once daily. Disc: Reason for discontinue is not on file. Encounter Status:Closed by KARLA KRISHNA CNP on 03/16/18 ARTERIAL UP/LOW/REST/MANUEVER Observed: 10/29/2017 Status: F Source: [place] 9:04 AM [facility] REPOS[facility]ORY Performed at [facility] APPROVED BY: MARY NEWMAN MD EXAM TITLE: ANKLE-BRACHIAL INDEX DATE:10/29/2017 08:33 CLINICAL INDICATION/HISTORY: Patient is a 77-year-old female with history of intermittent claudication. TECHNIQUE: Patient underwent bilateral ankle brachial indices with segmental pressures and waveform analysis. FINDINGS: In the patient's left arm the brachial artery pressure is 112 mmHg. In the right lower extremity the thigh pressure is 123, calf pressure is 125, posterior tibial pressure is 145, and dorsalis pedis pr essure is 127 mmHg. Waveforms are triphasic throughout the right lower extremity. Right ELAINE is 1.29. Digit pressure is slightly decreased. In the left lower extremity the thigh pressure is 121, calf pressure is 132, posterior tibial pressure is 154, and dorsalis pedis pressure is 141 mmHg. Left ELAINE is 1.38. Waveform is sharply triphasic throughout the left lower extremity. Digit pressure is slightly decreased on the left. IMPRESSION: Normal ankle-brachial indices bilaterally. Triphasic waveforms throughout. Digit pressures are slightly decreased however within the normal limits range which may indicate some mild distal small vessel disease. RHEUMATOID FACTOR Collected: 10/01/2017 Status: F Source: [facility] 3:16 PM HEALTH SYSTEM REPOSITORY TYPE CODE TESTS RESULT OUT OF REFERENCE UNITS RANGE LAB RF1(LOINC) 0.0-15.0 IU/mL Rheumatoid < 10.0 Factor Performed By: #### RF1 #### [place] [address] FERRITIN Collected: 10/01/2017 Status: F Source: [facility] 3:16 PM HEALTH SYSTEM REPOSITORY TYPE CODE TESTS RESULT OUT OF REFERENCE UNITS RANGE LAB FERR(LOINC) 8.00-252.00 ng/mL Ferritin 125.80 Performed By: #### FERR #### [facility] [address] [place] [address] VITAMIN B12 Collected: 10/01/2017 Status: F Source: [facility] 3:16 PM [facility] SYSTEM REPOSITORY TYPE CODE TESTS RESULT OUT OF REFERENCE UNITS RANGE LAB B12(LOINC) 193-986 pg/mL Vitamin B12 404 Performed By: #### B12 #### [place] [address] TSH, 3RD GENERATION Collected: 10/01/2017 Status: F Source: [facility] 3:16 [facility] SYSTEM REPOSITORY TYPE CODE TESTS RESULT OUT OF REFERENCE UNITS RANGE LAB TSH3(LOINC 0.358-3.740 uIU/mL ) TSH, 3rd generation 1.000 Performed By: #### TSH3 #### [facility] [address] [place], [place] [address] HGB A1C Collected: 10/01/2017 Status: F Source: [facility] [address] SYSTEM REPOSITORY TYPE CODE TESTS RESULT OUT OF RANGE REFERENCE UNITS LAB A1C5(LOINC) 4.2-6.3 % Hgb A1c 4.7 Result Comment: Method is National Glycohemoglobin Standardization Program (NGSP) compliant. LAB ESAVG(LOINC) mg/dl Est. Avg Glucose 88 Performed By: #### HA1C #### [place] [address] IRON SERUM Collected: 10/01/2017 Status: F Source: [address] SYSTEM REPOSITORY TYPE CODE TESTS RESULT OUT OF RANGE REFERENCE UNITS LAB IRON(LOINC) 50-170 ug/dL Iron 72 Serum Performed By: #### IRON #### [place] [address] IRON BINDING CAP. Collected: 10/01/2017 Status: F Source: [address] SYSTEM REPOSITORY TYPE CODE TESTS RESULT OUT OF REFERENCE UNITS RANGE LAB IBC(LOINC) 250-450 ug/dL Iron Binding 381 Cap. Performed By: #### IBC #### [place] [address] FELIPA BY IFA SCREEN Collected: 10/01/2017 Status: F Source: [address] SYSTEM REPOSITORY TYPE CODE TESTS RESULT OUT OF REFERENCE UNITS RANGE LAB ANAX(LOINC) FELIPA by IFA SEE BELOW Screen Result Comment: FELIPA Negative NEGAT Normal range : negative at <1:80 serum dilution. Approximately 6% of patients with connective tissue diseases with low positive EIA values are negative by IFA. Recommend follow-up with specific antinuclear antibodies if clinically indicated. FELIPA Titer Negative NEGAT Normal range : negative at <1:80 serum dilution. FELIPA Pattern SEE BELOW Not applicable for negative result. Performing Laboratory: [facility] [address] [place] [address] Performed By: #### ANAX #### [facility] [address] [place] [id number] ANCA SCREEN Collected: 10/01/2017 Status: F Source: [facility] 3:16 PM [facility] SYSTEM REPOSITORY TYPE CODE TESTS RESULT OUT OF REFERENCE UNITS RANGE LAB ANCAX(LOINC ) ANCA Screen SEE BELOW Result Comment: C-ANCA Fluorescence Negative NEGAT P-ANCA Fluorescence Negative NEGAT Proteinase-3 Ab <0.2 <1.0 AI Myeloperoxidase Ab <0.2 <1.0 AI ANCA Interpretation SEE BELOW Equivocal staining seen on the screening ethanol slide but negative results on follow up confirmatory testing. Staff Review SEE BELOW Reviewed by Memo May MD ([id number]) Performing Laboratory: [place] [address] Performed By: #### ANCAX #### [place] [address] SJOGREN ANTIBODIES Collected: 10/01/2017 Status: F Source: [facility] 3:16 PM [facility] REPOSITORY TYPE CODE TESTS RESULT OUT OF REFERENCE UNITS RANGE LAB SJOX(LOINC ) Sjogren Antibodies SEE BELOW Result Comment: SSA Antibody <0.2 <1.0 AI Negative Negative: <1.0 AI Positive: >0.9 AI SSB Antibody <0.2 <1.0 AI Negative Negative: <1.0 AI Positive: >0.9 AI Performing Laboratory: [place] [id number] [place] [address] Performed By: #### SJOX #### [place] [address] PROTEIN ELECTROPHORESIS, Collected: 10/01/2017 Status: F Source: [place] [facility], WITH RAINER 3:16 PM [facility] REPOSITORY TYPE CODE TESTS RESULT OUT OF REFERENCE UNITS RANGE LAB SPEIX(LOINC ) Protein SEE BELOW Electrophoresi s, Serum, with RAINER Result Comment: Total Protein, SPE 6.7 6.0-8.4 g/dL Albumin 4.04 3.37-4.23 gm/dL Alpha 1 Globulin 0.18 0.18-0.31 gm/dL Alpha 2 Globulin 0.56 0.52-0.97 gm/dL Beta Globulin 0.96 0.84-1.36 gm/dL Gamma Globulin 0.95 0.70-1.44 gm/dL Interpretation SEE BELOW No definitive M protein is identified on protein electrophoresis. M Protein Location N/A M Donny Concentratn 0.00 0.00 gm/dL SPE Staff Review SEE BELOW Reviewed by Wilmar Dunbar MD. ([id number]) Comment SEE BELOW Monoclonal Protein analysis (immunofixation) is not indicated. Performing Laboratory: [facility] [address] [place] [address] Performed By: #### SPEIX #### [place] [address] PROTEIN ELECTROPHORESIS, Collected: 10/01/2017 Status: F Source: [place] [facility] 3:16 PM [facility] REPOSITORY TYPE CODE TESTS RESULT OUT OF REFERENCE UNITS RANGE LAB UPEIX(LOINC ) Protein SEE BELOW Electrophoresi s, Urine, with RAINER Result Comment: Protein Urine Random 18 0-20 mg/dL Albumin 18.1 % Alpha 1 Globulin 12.4 >0 % Alpha 2 Globulin 16.8 % Beta Globulin 22.4 % Gamma Globulin 30.4 % Interpretation SEE BELOW No definitive M protein is identified on protein electrophoresis. Staff Review SEE BELOW Reviewed by Carolyn Calvillo MD ([id number]) Comment SEE BELOW Monoclonal Protein analysis (immunofixation) is not indicated. Performing Laboratory: [facility] [address] [place] [address] Performed By: #### UPEIX #### [place] [address] CT ABDOMEN AND PELVIS Observed: 09/24/2017 Status: F Source: [facility] WITH CONTRAST 8:35 AM HEALTH SYSTEM REPOSITORY Performed at [facility] APPROVED BY: NILSA SCHUMACHER MD Addendum Begins * * * * * * * * ORIGINAL REPORT * * * * * * * * EXAMINATION: CT ABDOMEN AND PELVIS WITH IV CONTRAST CLINICAL HISTORY: Abdominal pain, bloating, constipation, and diarrhea. History of diverticulitis and uterine carcinoma. TECHNIQUE: CT of the abdomen and pelvis was performed using standard technique, scanning from just above the dome of the diaphragm to the symphysis pubis. MQ: CTAP_3 Contrast: IV: 140 ml of Omnipaque 300 Oral: 900 ml of EZ CAT BARIUM CT Radiation dose: Integrated Dose-length product (DLP) for this visit = 311.6 mGy*cm. CT Dose Reduction Employed: Yes COMPARISON: 07/05/2017. RESULT: Liver: No mass. The liver is of low-density, when compared to the spleen, suggesting fatty infiltration of the liver. More focal fatty change is seen within the liver, adjacent to the falciform ligament. Biliary: Patient is status post cholecystectomy. There is mild dilation, related to the cholecystectomy. Spleen: No mass. No splenomegaly. Pancreas: Stable cystic lesion within the uncinate process of the pancreas, measuring approximately 6 mm (series 2, image #48). Adrenals: No mass. Kidneys: There is no hydronephrosis or perinephric fluid collection. There are bilateral parapelvic as well as renal cortical cysts. Subcentimeter, low-attenuation lesions seen within the kidneys are too small to characterize, but statistically relate to subcentimeter cysts. Again seen is punctate nonobstructing left nephrolithiasis. GI tract: Stomach is somewhat distended. There are no dilated loops of bowel to suggest obstruction. There is extensive colonic diverticulosis, without convincing CT evidence for diverticulitis. Lymph nodes: There are prominent, less than 1 cm retroperitoneal lymph nodes, likely reactive. Mesentery/Peritoneum: No ascites or mass. Retroperitoneum: No mass. Vasculature: The celiac axis and SMA are patent. The portal vein and branches, splenic vein, SMV, and hepatic veins are patent. Atherosclerotic calcifications are present within the abdominal aorta, without lesion. Pelvis: The patient is status post hysterectomy. A few phleboliths are incidentally seen within the pelvis. There are prominent, less than 1 cm pelvic lymph nodes, likely reactive. There is no pelvic mass or pelvic ascites. Bones/Soft Tissues: There is no destructive bony lesion. Lower thorax: There is minimal dependent atelectasis. There is linear atelectasis seen within lingula and right middle lobe. IMPRESSION: No acute abdominal or pelvic process is identified. Extensive colonic diverticulosis, without convincing CT evidence for diverticulitis. Fatty infiltration of the liver. Stable cystic lesion within the uncinate process of the pancreas, measuring approximately 6 mm. Bilateral renal cortical and renal parapelvic cysts. Punctate nonobstructing left nephrolithiasis. * * * * * * * * ADDENDUM #1 * * * * * * * * Dose Reduction Employed: Automated exposure control (AEC) was used Addendum Ends EXAMINATION: CT ABDOMEN AND PELVIS WITH IV CONTRAST CLINICAL HISTORY: Abdominal pain, bloating, constipation, and diarrhea. History of diverticulitis and uterine carcinoma. TECHNIQUE: CT of the abdomen and pelvis was performed using standard technique, scanning from just above the dome of the diaphragm to the symphysis pubis. MQ: CTAP_3 Contrast: IV: 140 ml of Omnipaque 300 Oral: 900 ml of EZ CAT BARIUM CT Radiation dose: Integrated Dose-length product (DLP) for this visit = 311.6 mGy*cm. CT Dose Reduction Employed: Yes COMPARISON: 07/05/2017. RESULT: Liver: No mass. The liver is of low-density, when compared to the spleen, suggesting fatty infiltration of the liver. More focal fatty change is seen within the liver, adjacent to the falciform ligament. Biliary: Patient is status post cholecystectomy. There is mild dilation, related to the cholecystectomy. Spleen: No mass. No splenomegaly. Pancreas: Stable cystic lesion within the uncinate process of the pancreas, measuring approximately 6 mm (series 2, image #48). Adrenals: No mass. Kidneys: There is no hydronephrosis or perinephric fluid collection. There are bilateral parapelvic as well as renal cortical cysts. Subcentimeter, low-attenuation lesions seen within the kidneys are too small to characterize, but statistically relate to subcentimeter cysts. Again seen is punctate nonobstructing left nephrolithiasis. GI tract: Stomach is somewhat distended. There are no dilated loops of bowel to suggest obstruction. There is extensive colonic diverticulosis, without convincing CT evidence for diverticulitis. Lymph nodes: There are prominent, less than 1 cm retroperitoneal lymph nodes, likely reactive. Mesentery/Peritoneum: No ascites or mass. Retroperitoneum: No mass. Vasculature: The celiac axis and SMA are patent. The portal vein and branches, splenic vein, SMV, and hepatic veins are patent. Atherosclerotic calcifications are present within the abdominal aorta, without lesion. Pelvis: The patient is status post hysterectomy. A few phleboliths are incidentally seen within the pelvis. There are prominent, less than 1 cm pelvic lymph nodes, likely reactive. There is no pelvic mass or pelvic ascites. Bones/Soft Tissues: There is no destructive bony lesion. Lower thorax: There is minimal dependent atelectasis. There is linear atelectasis seen within lingula and right middle lobe. IMPRESSION: No acute abdominal or pelvic process is identified. Extensive colonic diverticulosis, without convincing CT evidence for diverticulitis. Fatty infiltration of the liver. Stable cystic lesion within the uncinate process of the pancreas, measuring approximately 6 mm. Bilateral renal cortical and renal parapelvic cysts. Punctate nonobstructing left nephrolithiasis. MAMMOGRAM SCREENING Observed: 08/12/2017 Status: F Source: [facility] WITH CAD IF PERFORMED 9:54 AM HEALTH SYSTEM REPOSITORY Performed at [facility] APPROVED BY: DONALD CANTU MD #[id number] - MAMMOGRAM SCREENING WITH CAD IF PERFORMED BILATERAL DIGITAL SCREENING MAMMOGRAM WITH CAD WITH MEDIOLATERAL OBLIQUE CRANIOCAUDAL: 08/12/2017 CLINICAL: Routine screening mammogram. Patient reports no breast problems. Comparison is made to exams dated: 08/11/2016 mammogram, 07/11/2015 mammogram, 12/27/2014 mammogram, 12/25/2014 mammogram - [facility], and 12/11/2014 mammogram - [facility]. There are scattered fibroglandular elements in both breasts. Current study was also evaluated with a Computer Aided Detection (CAD) system. There is a biopsy clip in the right breast. No significant masses, calcifications, or other findings are seen in either breast. There has been no significant interval change. IMPRESSION: NEGATIVE There is no mammographic evidence of malignancy. A 1 year screening mammogram is recommended. Based on a modified Nadia Model, this patient's calculated lifetime risk of developing breast cancer is 11.6%. The patient was notified of the results. Dr. Donald dykes/todd:08/12/2017 11:35:52 [employer]: Dianne Rossi(Alfred)(M), [email or web address] letter sent: Normal Birad 1 or 2 Mammogram BI-RADS: 1 Negative PROGRESS Observed: 07/13/2017 Status: COMPLETED Source: [place] 3:14 PM CLINIC OTHER CAMPUS REPOSITORY HNO ID: [id number] Author: Jean-Pierre Perez Service: (none) Author Type: Physician Type: Progress Notes Filed: 07/13/2017 3:44 PM Note Text: Chief Complaint Patient presents with: New Patient: Referred by Dr. Small History of Present Illness: Gloria Mathew is a 76 year old female referred in to assess mitral valve disease. 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 She reports a remote history of rheumatic fever as a child. She's here with her who is a patient with her sister who is a nurse. Patient really has little or no symptoms with minimal exertional dyspnea on rare occasions. She does get a little short of breath if she climbs a flight of stairs quickly. She's had no syncope stroke or TIA. She's had no GI bleeding. She reports she has occasional asthma although she is a nonsmoker. She has had no renal disease or liver disease. She has no hypertension or diabetes. She is treated for hyperlipidemia. She has no family history of early heart disease. There are for a number of relatives who have had rheumatic disease in her family. She says she had an echo done about 6 years ago which showed some degree of disease and then the more recent one which showed more severe disease. She really has not reported major change in her status. She's had nothing to suggest arrhythmia or any dizziness or near syncope. PAST MEDICAL HISTORY Diagnosis Date - Breast mass, right - IBS (irritable bowel syndrome) - Mitral valve regurgitation - Mitral valve stenosis - Pulmonary HTN - Tricuspid regurgitation PAST SURGICAL HISTORY Procedure Laterality Date - BREAST BIOPSY - CHOLECYSTECTOMY HX 10/02/2011 - HYSTERECTOMY HX MARYELLEN/BLO - LEG SURGERY HX FAMILY HISTORY Problem Relation Age of Onset - Breast Cancer Mother stage III - Coronary Artery Disease Mother mother, uncle - Cancer Paternal Grandfather - Colon Cancer Maternal Grandmother - Diabetes Other uncle - Stroke Maternal Grandfather Social History Substance Use Topics - Smoking status: Never Smoker - Smokeless tobacco: Never Used - Alcohol use No ALLERGIES No Known Allergies Medications: Current Outpatient Prescriptions: ciprofloxacin HCl (CIPRO) 500 mg tablet Disp: Rfl: dicyclomine (BENTYL) 20 mg tablet Disp: Rfl: metroNIDAZOLE (FLAGYL) 500 mg tablet Disp: Rfl: rOPINIRole (REQUIP) 1 mg tablet Take 2 mg by mouth daily at bedtime. Disp: Rfl: PROAIR HFA 90 mcg/actuation inhaler Disp: Rfl: cholestyramine (QUESTRAN) 4 gram packet Disp: Rfl: gabapentin (NEURONTIN) 100 mg capsule Disp: Rfl: simvastatin (ZOCOR) 10 mg tablet Take 10 mg by mouth daily at bedtime. Disp: Rfl: alendronate (FOSAMAX) 70 mg tablet Take 70 mg by mouth once each week. Disp: Rfl: calcium, elemental, tab Take by mouth twice daily. Disp: Rfl: vitamin b complex tab Take 1 tablet by mouth once daily. Disp: Rfl: multivitamin tablet Take 1 tablet by mouth once daily. Disp: Rfl: ROPINIROLE HCL (REQUIP ORAL) Take 1 capsule by mouth once daily. Disp: Rfl: CYANOCOBALAMIN, VITAMIN B-12, (VITAMIN B-12 ORAL) Take 1 tablet by mouth. Disp: Rfl: Cholecalciferol, Vitamin D3, 1,000 unit cap Take 1,000 Units by mouth once daily. Disp: Rfl: escitalopram oxalate (LEXAPRO) 10 mg tablet Disp: Rfl: Biotin-Silicon Qrvl-V-Bfhixuak 5,000 mcg-100 mg- 50 mg tab Take 1 tablet by mouth once daily. Disp: Rfl: No current facility-administered medications for this visit. Review of Systems Constitutional: Negative. Respiratory: Positive for shortness of breath. Negative for wheezing. Denies Chest Tightness Cardiovascular: Negative. Gastrointestinal: Negative for abdominal pain, blood in stool and nausea. Genitourinary: Negative for hematuria. Skin: Negative for rash. Neurological: Negative for dizziness, speech change and loss of consciousness. Denies syncope Physical Examination: Vitals:BP 120/70 Pulse 75 Resp 16 Ht 5' 2 (1.58m) Wt 149 lb (67.6kg) SpO2 97% BMI 27.25 kg/(m2). Extended Vitals not filed for this encounter. Last 2 Encounter Wt Readings: Date: Wt: 07/13/2017 149 lb (67.6 kg) 07/05/2017 150 lb (68 kg) Physical Exam Constitutional: She is oriented to person, place, and time and well-developed, well-nourished, and in no distress. No distress. Appears in good health HENT: Head: Normocephalic. Eyes: Pupils equal, eyelids appear normal Neck: Normal range of motion. JVD present. No thyromegaly present. 6 cm JVD with V waves evident Cardiovascular: Regular rhythm. PMI is not displaced. Exam reveals no gallop, no distant heart sounds and no friction rub. Murmur heard. Pulses: Carotid pulses are 2+ on the right side, and 2+ on the left side. Radial pulses are 2+ on the right side, and 2+ on the left side. Femoral pulses are 2+ on the right side, and 2+ on the left side. Dorsalis pedis pulses are 2+ on the right side, and 2+ on the left side. 1/6 systolic murmur heard left lower sternal border and apex, no definite rumble heard, possible opening snap, accentuated P2 noted; possible mild RV lift Pulmonary/Chest: Breath sounds normal. No stridor. No respiratory distress. She has no wheezes. She has no rales. Abdominal: Soft. She exhibits no mass. There is no hepatomegaly. There is no tenderness. There is no rebound and no guarding. Musculoskeletal: She exhibits no edema or deformity. Neurological: She is alert and oriented to person, place, and time. Coordination normal. Skin: Skin is warm and dry. No rash noted. She is not diaphoretic. Psychiatric: Mood and affect normal. Vitals reviewed. Pertinent Labs: CBC: HGB (g/dL) Date Value 07/05/2017 13.5 Hematocrit (%) Date Value 07/05/2017 40.0 WBC (thou/cmm) Date Value 07/05/2017 6.0 Platelet Count (thou/cmm) Date Value 07/05/2017 206 BMP: Glucose (mg/dL) Date Value 07/05/2017 120 Potassium (mEq/L) Date Value 07/05/2017 3.8 Sodium (mEq/L) Date Value 07/05/2017 142 Chloride (mEq/L) Date Value 07/05/2017 104 CO2 (mEq/L) Date Value 07/05/2017 32 Creatinine (mg/dL) Date Value 07/05/2017 0.77 BUN (mg/dL) Date Value 07/05/2017 13 Anion Gap (no units) Date Value 07/05/2017 10 Calcium (mg/dL) Date Value 07/05/2017 9.3 INR: TSH: No results found for: TSHREFL Lipid Profile: No results found for: CHOL, HDL, LDL, TG Hemoglobin A1C: No results found for: HGBA1C Most Recent Cardiac Testing Assessment and Plan: 1. Rheumatic valvular disease: She has remote rheumatic fever requires lifelong rheumatic fever prophylaxis. She has an EKG which has remarkable in that it is normal, but her echo was quite abnormal with EF of around 60%, 3-4+ mitral regurgitation with rheumatic valve, moderate mitral stenosis moderate to severe pulmonary hypertension and 1-2+ tricuspid regurgitation and just thickening of the aortic valve without stenosis or regurgitation. She has little or no symptoms and technically would probably qualify for mitral valve replacement because of her mild exertional dyspnea. However since the valve cannot be repaired since she is clinically doing quite well I am inclined to follow her expectantly but closely: She will call for any change in her status when she comes in with her for his appointment 2 months she will let me know how she's doing. I will see her in a year and do an echo in 11 months. If there is any change in her status her ejection fraction then I would proceed with MEERA and catheterization and referral for valve surgery. She would need a new mitral valve along with tricuspid valve repair as a possibility. I did review all this with the patient, her spouse and her sister who is a nurse. They are in agreement with this plan. I also suspect at least some of her asthma could easily be cardiac asthma with this is something to be followed closely. 2. Lipids: Please send any lab work. Electronically signed by Jean-Pierre Perez MD on July 13, 2017, 3:14 PM [place] Observed: 07/13/2017 Status: COMPLETED Source: [place] 3:00 PM CLINIC OTHER CAMPUS REPOSITORY Office Visit (AGCARDPOB) GLORIA MATHEW ([id number]) 1940 F Date Time Provider Department 07/13/17 3:00 PM JEAN-PIERRE PEREZ During your visit today, we recorded the following information about you: Pulse Respiration Blood pressure Weight 75/minute 16/minute 120/70 67.6 kg Height 1.575 m Mary Avendaño CMA 07/13/2017 2:55 PM Signed Patient denies any cardiac complaints today. HENRIK Shelton MD 07/13/2017 3:44 PM Signed Chief Complaint Patient presents with: New Patient: Referred by Dr. Small History of Present Illness: Gloria Mathew is a 76 year old female referred in to assess mitral valve disease. 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 She reports a remote history of rheumatic fever as a child. She's here with her who is a patient with her sister who is a nurse. Patient really has little or no symptoms with minimal exertional dyspnea on rare occasions. She does get a little short of breath if she climbs a flight of stairs quickly. She's had no syncope stroke or TIA. She's had no GI bleeding. She reports she has occasional asthma although she is a nonsmoker. She has had no renal disease or liver disease. She has no hypertension or diabetes. She is treated for hyperlipidemia. She has no family history of early heart disease. There are for a number of relatives who have had rheumatic disease in her family. She says she had an echo done about 6 years ago which showed some degree of disease and then the more recent one which showed more severe disease. She really has not reported major change in her status. She's had nothing to suggest arrhythmia or any dizziness or near syncope. PAST MEDICAL HISTORY Diagnosis Date - Breast mass, right - IBS (irritable bowel syndrome) - Mitral valve regurgitation - Mitral valve stenosis - Pulmonary HTN - Tricuspid regurgitation PAST SURGICAL HISTORY Procedure Laterality Date - BREAST BIOPSY - CHOLECYSTECTOMY HX 10/02/2011 - HYSTERECTOMY HX MARYELLEN/BLO - LEG SURGERY HX FAMILY HISTORY Problem Relation Age of Onset - Breast Cancer Mother stage III - Coronary Artery Disease Mother mother, uncle - Cancer Paternal Grandfather - Colon Cancer Maternal Grandmother - Diabetes Other uncle - Stroke Maternal Grandfather Social History Substance Use Topics - Smoking status: Never Smoker - Smokeless tobacco: Never Used - Alcohol use No ALLERGIES No Known Allergies Medications: Current Outpatient Prescriptions: ciprofloxacin HCl (CIPRO) 500 mg tablet Disp: Rfl: dicyclomine (BENTYL) 20 mg tablet Disp: Rfl: metroNIDAZOLE (FLAGYL) 500 mg tablet Disp: Rfl: rOPINIRole (REQUIP) 1 mg tablet Take 2 mg by mouth daily at bedtime. Disp: Rfl: PROAIR HFA 90 mcg/actuation inhaler Disp: Rfl: cholestyramine (QUESTRAN) 4 gram packet Disp: Rfl: gabapentin (NEURONTIN) 100 mg capsule Disp: Rfl: simvastatin (ZOCOR) 10 mg tablet Take 10 mg by mouth daily at bedtime. Disp: Rfl: alendronate (FOSAMAX) 70 mg tablet Take 70 mg by mouth once each week. Disp: Rfl: calcium, elemental, tab Take by mouth twice daily. Disp: Rfl: vitamin b complex tab Take 1 tablet by mouth once daily. Disp: Rfl: multivitamin tablet Take 1 tablet by mouth once daily. Disp: Rfl: ROPINIROLE HCL (REQUIP ORAL) Take 1 capsule by mouth once daily. Disp: Rfl: CYANOCOBALAMIN, VITAMIN B-12, (VITAMIN B-12 ORAL) Take 1 tablet by mouth. Disp: Rfl: Cholecalciferol, Vitamin D3, 1,000 unit cap Take 1,000 Units by mouth once daily. Disp: Rfl: escitalopram oxalate (LEXAPRO) 10 mg tablet Disp: Rfl: Biotin-Silicon Wyyb-H-Txahdllm 5,000 mcg-100 mg- 50 mg tab Take 1 tablet by mouth once daily. Disp: Rfl: No current facility-administered medications for this visit. Review of Systems Constitutional: Negative. Respiratory: Positive for shortness of breath. Negative for wheezing. Denies Chest Tightness Cardiovascular: Negative. Gastrointestinal: Negative for abdominal pain, blood in stool and nausea. Genitourinary: Negative for hematuria. Skin: Negative for rash. Neurological: Negative for dizziness, speech change and loss of consciousness. Denies syncope Physical Examination: Vitals:BP 120/70 Pulse 75 Resp 16 Ht 5' 2ANDquot; (1.58m) Wt 149 lb (67.6kg) SpO2 97% BMI 27.25 kg/(m2). Extended Vitals not filed for this encounter. Last 2 Encounter Wt Readings: Date: Wt: 07/13/2017 149 lb (67.6 kg) 07/05/2017 150 lb (68 kg) Physical Exam Constitutional: She is oriented to person, place, and time and well-developed, well-nourished, and in no distress. No distress. Appears in good health HENT: Head: Normocephalic. Eyes: Pupils equal, eyelids appear normal Neck: Normal range of motion. JVD present. No thyromegaly present. 6 cm JVD with V waves evident Cardiovascular: Regular rhythm. PMI is not displaced. Exam reveals no gallop, no distant heart sounds and no friction rub. Murmur heard. Pulses: Carotid pulses are 2+ on the right side, and 2+ on the left side. Radial pulses are 2+ on the right side, and 2+ on the left side. Femoral pulses are 2+ on the right side, and 2+ on the left side. Dorsalis pedis pulses are 2+ on the right side, and 2+ on the left side. 1/6 systolic murmur heard left lower sternal border and apex, no definite rumble heard, possible opening snap, accentuated P2 noted; possible mild RV lift Pulmonary/Chest: Breath sounds normal. No stridor. No respiratory distress. She has no wheezes. She has no rales. Abdominal: Soft. She exhibits no mass. There is no hepatomegaly. There is no tenderness. There is no rebound and no guarding. Musculoskeletal: She exhibits no edema or deformity. Neurological: She is alert and oriented to person, place, and time. Coordination normal. Skin: Skin is warm and dry. No rash noted. She is not diaphoretic. Psychiatric: Mood and affect normal. Vitals reviewed. Pertinent Labs: CBC: HGB (g/dL) Date Value 07/05/2017 13.5 Hematocrit (%) Date Value 07/05/2017 40.0 WBC (thou/cmm) Date Value 07/05/2017 6.0 Platelet Count (thou/cmm) Date Value 07/05/2017 206 BMP: Glucose (mg/dL) Date Value 07/05/2017 120 Potassium (mEq/L) Date Value 07/05/2017 3.8 Sodium (mEq/L) Date Value 07/05/2017 142 Chloride (mEq/L) Date Value 07/05/2017 104 CO2 (mEq/L) Date Value 07/05/2017 32 Creatinine (mg/dL) Date Value 07/05/2017 0.77 BUN (mg/dL) Date Value 07/05/2017 13 Anion Gap (no units) Date Value 07/05/2017 10 Calcium (mg/dL) Date Value 07/05/2017 9.3 INR: TSH: No results found for: TSHREFL Lipid Profile: No results found for: CHOL, HDL, LDL, TG Hemoglobin A1C: No results found for: HGBA1C Most Recent Cardiac Testing Assessment and Plan: 1. Rheumatic valvular disease: She has remote rheumatic fever requires lifelong rheumatic fever prophylaxis. She has an EKG which has remarkable in that it is normal, but her echo was quite abnormal with EF of around 60%, 3-4+ mitral regurgitation with rheumatic valve, moderate mitral stenosis moderate to severe pulmonary hypertension and 1-2+ tricuspid regurgitation and just thickening of the aortic valve without stenosis or regurgitation. She has little or no symptoms and technically would probably qualify for mitral valve replacement because of her mild exertional dyspnea. However since the valve cannot be repaired since she is clinically doing quite well I am inclined to follow her expectantly but closely: She will call for any change in her status when she comes in with her for his appointment 2 months she will let me know how she's doing. I will see her in a year and do an echo in 11 months. If there is any change in her status her ejection fraction then I would proceed with MEERA and catheterization and referral for valve surgery. She would need a new mitral valve along with tricuspid valve repair as a possibility. I did review all this with the patient, her spouse and her sister who is a nurse. They are in agreement with this plan. I also suspect at least some of her asthma could easily be cardiac asthma with this is something to be followed closely. 2. Lipids: Please send any lab work. Electronically signed by Jean-Pierre Perez MD on July 13, 2017, 3:14 PM Jean-Pierre Perez MD 07/13/2017 3:35 PM Signed Call us for any change in status Referring Provider: SAROJ AVELAR [[id number]] Allergies As of Date: 07/13/2017 (No Known Allergies) Date Reviewed: 07/13/2017 Reviewed by: Jean-Pierre Perez - Fully Assessed Reason for Visit: New Patient [172] Cmt: Referred by Dr. Small Primary Visit Diagnosis:Mitral valve stenosis, unspecified etiology [I05.0] Other Visit Diagnosis:Mitral valve insufficiency, unspecified etiology [I34.0] Order(s):EKG WITH INTERPRETATION [70180FAB] Order #: [id number]: 1 ECHO [[id number]] Order #: [id number]: 1 FUTURE Prescriptions as of 07/13/2017 Sig: CIPROFLOXACIN 500 MG TABLET DICYCLOMINE 20 MG TABLET METRONIDAZOLE 500 MG TABLET ROPINIROLE 1 MG TABLET Take 2 mg by mouth daily at b* PROAIR HFA 90 MCG/ACTUATION A* CHOLESTYRAMINE (WITH SUGAR) 4* GABAPENTIN 100 MG CAPSULE SIMVASTATIN 10 MG TABLET Take 10 mg by mouth daily at * ALENDRONATE 70 MG TABLET Take 70 mg by mouth once each* CALCIUM 500 MG TABLET Take by mouth twice daily. VITAMIN B COMPLEX TABLET Take 1 tablet by mouth once d* MULTIVITAMIN TABLET Take 1 tablet by mouth once d* REQUIP ORAL Take 1 capsule by mouth once * VITAMIN B-12 ORAL Take 1 tablet by mouth. 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 Mitral valve stenosis [I05.0] Mitral valve regurgitation [I34.0] Other instructions from your clinician: Call us for any change in status Visit Notes: >> Mary Coffey Jul 13, 2017 2:54 PM Status: Signed Patient denies any cardiac complaints today. Mary Avendaño MUD MILL TENDER Disposition: Return in about 1 year (around 07/13/2018). Follow-up and Disposition History Recorded Letter Text Encounter Status:Closed by JEAN-PIERRE PEREZ MD on 07/13/17 CT ABDOMEN AND PELVIS Observed: 07/05/2017 Status: F Source: [employer] WITHOUT CONTRAST 6:44 PM HEALTH SYSTEM REPOSITORY Performed at [facility] APPROVED BY: ANDRES PATHAK MD EXAMINATION: CT ABDOMEN AND PELVIS WITHOUT IV CONTRAST CLINICAL HISTORY: Abdominal pain TECHNIQUE: Non-IV contrast imaging of the abdomen and pelvis was performed using standard technique, scanning from just above the dome of the diaphragm to the symphysis pubis. Unenhanced imaging is ortez ited for the evaluation of some intra-abdominal and pelvic pathology. MQ: [id number]_3 Contrast: None CT Dose-Length Product: 427.69 mGy*cm CT Dose Reduction Employed: Automated exposure control (AEC) and/or iterative reconstruction was used. COMPARISON: Contrast-enhanced CT abdomen/pelvis 05/10/2013 RESULT: Abdomen / Pelvis: Liver: Unremarkable. Biliary: S/p cholecystectomy. Spleen: No splenomegaly. Pancreas: Unremarkable. Adrenals: No mass. Kidneys: A few punctate nonobstructing stones are present in the left kidney. Peripelvic cysts are redemonstrated in the left kidney. A 1.3 cm cyst at the lower pole the right kidney is noted. 1 cm h ypodensity extends ankle physically from the lateral margin of the lower portion of the right kidney, unchanged, likely a cyst. No hydronephrosis or ureteral dilation. GI Tract: Extensive colonic diverticulosis sparing the cecum and ascending colon. Mild paracolonic inflammation in the region of the splenic flexure suggests mild acute diverticulitis (2:37-44). No ab scess. Normal appendix noted. Multiple mildly distended small bowel loops are noted in the lower abdomen and pelvis. No transition point identified from dilated to decompressed bowel to suggest mechanical obstruction. Lymph Nodes: No lymphadenopathy. Mesentery/peritoneum: No ascites. Retroperitoneum: No mass. Vasculature: No abdominal aortic or iliac artery aneurysm. Pelvis: Uterus is surgically absent. Urinary bladder is unremarkable. No pelvic mass or fluid collection. Bones/Soft Tissues: Degenerative facet arthrosis is noted at L3-4 through L5-S1. Bones are of diffusely decreased density. Lower thorax: Unremarkable. IMPRESSION: 1. Extensive colonic diverticulosis. Mild inflammation in the paracolonic fat in the region of the splenic flexure suggests mild acute diverticulitis. No abscess. Normal appendix. 2. A few punctate nonobstructing calculi are present in the left kidney. Left-sided peripelvic cyst are unchanged. No hydronephrosis. Likely small benign cysts in the right kidney are unchanged. ED PROV NOTE Observed: 07/05/2017 Status: COMPLETED Source: [place] 5:46 PM CLINIC OTHER CAMPUS REPOSITORY O ID: [id number] Author: Hanna Royal ([place]) Service: Emergency Medicine Author Type: Physician Information Tech Type: ED Provider Notes Filed: 07/05/2017 9:33 PM Note Text: Attestation signed by Reg Santa MD at 07/05/2017 9:37 PM Attending Note I have personally performed a face to face assessment of the patient and have reviewed the PA/HERB COUNSELOR note. My rg findings include: Patient with left mid abdominal pain. Labs basically within normal limits. CT scan reveals mild diverticulitis but no evidence of perforation or abscess. She was medicated and feels much better. No evidence of an acute surgical abdomen on reexamination. We feel that a trial of oral antibiotics as an outpatient is safe and reasonable. This is her preference as well. She'll follow up closely with her doctor and return if she develops any fever, worse pain, or vomiting. Other additions or changes: None Signature: Reg Santa MD Date: 07/05/2017 Time: 9:36 PM ED Provider Note Patient Name: Gloria Mathew SERVICE DATE: 07/05/17 History Patient presents with: Abdominal Pain HPI Comments: Patient presents to the ED with upper abdominal pain that started an hour ago. She states the pain comes and goes. She rates the pain at its worst a 10 out of 10. She states the pain radiates to her back. She has experienced some nausea but no vomiting. Her abdominal surgical history includes a cholecystectomy hernia repair, and hysterectomy. She does have a history of IBS. She denies any changes in her bowels, urinary symptoms, blood in her bowel or urine, fever, chills. PAST MEDICAL HISTORY Diagnosis Date - Breast mass, right - IBS (irritable bowel syndrome) - Mitral valve regurgitation - Mitral valve stenosis - Pulmonary HTN - Tricuspid regurgitation PAST SURGICAL HISTORY Procedure Laterality Date - BREAST BIOPSY - CHOLECYSTECTOMY HX 10/02/2011 - HYSTERECTOMY HX MARYELLEN/BLO - LEG SURGERY HX FAMILY HISTORY Problem Relation Age of Onset - Breast Cancer Mother stage III - Coronary Artery Disease Mother mother, uncle - Cancer Paternal Grandfather - Colon Cancer Maternal Grandmother - Diabetes Other uncle - Stroke Maternal Grandfather Social History Social History Main Topics - Smoking status: Never Smoker - Smokeless tobacco: Never Used - Alcohol use No - Drug use: No - Sexual activity: Not Asked ALLERGIES No Known Allergies Review of Systems Constitutional: Negative for chills, fatigue and fever. HENT: Negative for congestion, ear pain, hearing loss, nosebleeds, rhinorrhea, sinus pain, sneezing, sore throat and tinnitus. Eyes: Negative for pain, itching and visual disturbance. Respiratory: Negative for cough, choking, chest tightness, shortness of breath and wheezing. Cardiovascular: Negative for chest pain and palpitations. Gastrointestinal: Positive for abdominal pain and nausea. Negative for blood in stool, constipation, diarrhea and vomiting. Endocrine: Negative for polydipsia and polyuria. Genitourinary: Negative for dysuria, flank pain, frequency, hematuria and urgency. Musculoskeletal: Negative for back pain, gait problem and myalgias. Skin: Negative for rash and wound. Allergic/Immunologic: Negative for immunocompromised state. Neurological: Negative for dizziness, weakness, numbness and headaches. Psychiatric/Behavioral: Negative for confusion, hallucinations and suicidal ideas. The patient is not nervous/anxious. Physical Exam BP 126/54 Pulse 74 Temp 97 Resp 15 Wt 150 lb (68.0kg) SpO2 99% Physical Exam Constitutional: She is oriented to person, place, and time. Vital signs are normal. She appears well-developed and well-nourished. No distress. HENT: Head: Normocephalic and atraumatic. Right Ear: External ear normal. Left Ear: External ear normal. Nose: Nose normal. Mouth/Throat: Uvula is midline, oropharynx is clear and moist and mucous membranes are normal. Eyes: Conjunctivae and EOM are normal. Pupils are equal, round, and reactive to light. Right eye exhibits no discharge. Left eye exhibits no discharge. No scleral icterus. Neck: Normal range of motion. Neck supple. No thyromegaly present. Cardiovascular: Normal rate, regular rhythm, normal heart sounds and intact distal pulses. Exam reveals no gallop and no friction rub. No murmur heard. Pulmonary/Chest: Effort normal and breath sounds normal. No respiratory distress. She has no wheezes. She has no rales. Abdominal: Soft. Normal appearance and bowel sounds are normal. She exhibits no distension and no mass. There is tenderness ( upper abdominal). There is no rebound and no guarding. Musculoskeletal: Normal range of motion. Neurological: She is alert and oriented to person, place, and time. Skin: Skin is warm, dry and intact. She is not diaphoretic. Psychiatric: She has a normal mood and affect. Judgment and thought content normal. Diagnostic Testing ED Labs Ordered and Reviewed COMPREHENSIVE METABOLIC PANEL (AK,AV,EU,FV,HL,LUPILLO,MM,SP) - Abnormal; Notable for the following: Result Value Ref Range CO2 32 (*) 22 - 30 mEq/L Glucose 120 (*) 70 - 99 mg/dL All other components within normal limits CBC + AUTO DIFF (AK,AV,EU,FV,HL,LUPILLO,MM,SP) LIPASE BLOOD (AK,AV,EU,FV,HL,LUPILLO,MM,SP) MDRD GFR Procedures Medical Decision Making / ED Course ED Course Patient presents to the ED with upper abdominal pain for one hour. Patient was given IV fluids, Zofran, and morphine. CBC, CMP, and lipase are all unremarkable. CT shows extensive colonic diverticulosis. There is mild inflammation of the pericolonic fat in the region of the splenic flexure which suggests mild acute diverticulitis. Patient was given a dose of ciprofloxacin and Flagyl in the ED. She is given prescriptions for both. She should follow up with her PCP if her symptoms persist or worsen. Patient provided discharge instructions. Patient agreeable to plan. Encounter Diagnosis ICD-10-CM 1. Diverticulitis K57.92 Plan The Patient was DISCHARGED: Counseled patient regarding lab results AND radiology results AND need for follow-up. Discharged home with verbal and written instructions. They were instructed to return as needed for persistent or worsening symptoms or any new concerns. Condition at time of disposition: stable SIGNATURE: CHINO Byrnes (Pa) 07/05/172132 Reg Santa MD 07/05/172136 HEMOGRAM/DIFF Collected: 07/05/2017 Status: F Source: [facility] 5:45 PM HEALTH SYSTEM REPOSITORY TYPE CODE TESTS RESULT OUT OF REFERENCE UNITS RANGE LAB GWBC(LOINC 4.4-9.7 thou/cmm ) WBC 6.0 LAB GRBC(LOINC 3.79-4.93 mil/cmm ) RBC 4.50 LAB GHGB(LOINC 11.7-14.7 g/dL ) Hgb 13.5 LAB GHCT(LOINC 34.7-43.3 % ) Hct 40.0 LAB GMCV(LOINC 82.1-97.4 fl ) MCV 88.9 LAB GMCH(LOINC 27.4-32.8 pg ) MCH 30.0 LAB GMCHC(LOIN 31.9-35.6 % C) MCHC 33.8 LAB GRDW(LOINC 11.8-14.5 % ) RDW 12.9 LAB GPLT(LOINC 150-370 thou/cmm ) Platelet 206 LAB GMPV(LOINC 8.8-12.1 fl ) MPV 9.0 LAB GSEGT(LOIN % C) Seg Neutrophil 75.1 LAB GLYMP(LOIN % C) Lymphocyte 14.9 LAB GMNO(LOINC % ) Monocyte 6.4 LAB GEOS(LOINC % ) Eosinophil 2.8 LAB GBASO(LOIN % C) Basophil 0.8 LAB GSEG2(LOIN 1.35-7.21 thou/cmm C) Abs. Neut 4.49 LAB GLYMN(LOIN 0.68-2.93 thou/cmm C) Abs. Lymph 0.89 LAB GMONN(LOIN 0.19-0.80 thou/cmm C) Abs. Morrill 0.38 LAB GEOSN(LOIN 0.00-0.36 thou/cmm C) Abs. Eosin 0.17 LAB GBASN(LOIN 0.00-0.08 thou/cmm C) Abs. Baso 0.05 Performed By: #### GCBCD #### [place] [address] COMPREHENSIVE PANEL Collected: 07/05/2017 Status: F Source: [facility] 5:45 PM HEALTH SYSTEM REPOSITORY TYPE CODE TESTS RESULT OUT OF REFERENCE UNITS RANGE LAB GNA(LOINC) 136-145 mEq/L Sodium Blood 142 LAB GK(LOINC) 3.5-5.1 mEq/L Potassium Blood 3.8 LAB GCL(LOINC) 98-107 mEq/L Chloride Blood 104 LAB GCO2(LOINC 22-30 mEq/L ) CO2 Blood High 32 LAB GGLU(LOINC 70-99 mg/dL ) Glucose High Blood 120 LAB GBUN(LOINC 7-17 mg/dL ) BUN Blood 13 LAB GCREA(LOIN 0.51-0.95 mg/dL C) Creatinine Blood 0.77 LAB GCA(LOINC) 8.5-10.1 mg/dL Calcium Blood 9.3 LAB GALB(LOINC 3.4-5.0 g/dL ) Albumin Blood 3.6 LAB GTP(LOINC) 6.4-8.2 g/dL Total Protein 7.0 LAB GRAST(LOIN 15-46 U/L C) AST-SGOT Blood 15 LAB GALT(LOINC 12-78 U/L ) ALT-SGPT Blood 27 LAB GALKP(LOIN 46-116 U/L C) Alk Phosphatase 81 LAB GBILT(LOIN 0.2-1.0 mg/dL C) Total Bilirubin 1.0 LAB GANGP(LOIN 8-16 C) Anion Gap 10 Performed By: #### GP14 #### [facility] [address] [place], [place] [address] LIPASE BLOOD Collected: 07/05/2017 Status: F Source: [facility] 5:45 PM HEALTH SYSTEM REPOSITORY TYPE CODE TESTS RESULT OUT OF REFERENCE UNITS RANGE LAB GLIP(LOINC) 73-393 U/L Lipase Blood 167 Performed By: #### GLIP #### [facility] [address] [place] [address] MDRD EGFR Collected: 07/05/2017 Status: F Source: [facility] 5:33 PM HEALTH SYSTEM REPOSITORY TYPE CODE TESTS RESULT OUT OF RANGE REFERENCE UNITS LAB GGFRF(LOINC >60mL/min/1.73m ) 2 eGFR >60 Result Comment: If the patient is , multiply the result by 1.210. Performed By: #### GGFR #### [facility] [address] [place] [address] ED NOTE Observed: 07/05/2017 Status: COMPLETED Source: [place] 5:11 PM CLINIC OTHER [place] REPOSITORY HNO ID: [id number] Author: Katie (Rn) MARCELLA Cooper Service: Emergency Medicine Author Type: Registered Nurse Type: ED Notes Filed: 07/05/2017 5:11 PM Note Text: Pt c/o mid abd pain radiating to back for 1 hour. Denies diarrhea. Pt states she has IBS. PROGRESS Observed: 06/15/2017 Status: COMPLETED Source: [place] 2:37 PM CLINIC OTHER [place] REPOSITORY HNO ID: [id number] Author: Jean-Pierre Perez Service: (none) Author Type: Physician Type: Progress Notes Filed: 06/15/2017 2:38 PM Note Text: Reviewed 06/21 Echo Likely rheumatic 3-4+ MR, mod MS PA 60 1-2+ TR AV mildy thickened EF 60 ALLERGIES ALLERGIES DATE TYPE / CODE NAME / CODE REACTION SEVERITY SOURCE 05/29/2018 Drug No Known Unknown [facility] Allergy/416 Allergies/O99170 [facility] 594568(SNOM 0388(RXNORM) Repository ED CT) NG/[id number] NO KNOWN [facility] 6(SNOMED ALLERGIES [facility]) Repository Drug NO KNOWN [facility] Class/84276 ALLERGIES Other [place] 1003(SNOMED Repository CT) ENCOUNTERS ENCOUNTERS ADMIT/DISCHARGE ACCOUNT NUMBER ADMITTING ENCOUNTER LOCATION SOURCE CLASS 05/29/2018/05/29/19 [id number] Josh, Inpatient [place] Encounter [facility] ding:PCURoom Repository : [id number]: 1 05/29/2018 [id number] Josh, Ambulatory BMSBuilding: Elena [place] BMS.[facility] Repository 05/27/2018/05/27/19 [id number] SKIP, Ambulatory [address] Other [place] Repository 05/27/2018/05/27/19 [id number] CUTLER, Inpatient [address] MEDICAL Repository ORLANDOBuildi ng:AKEPRoom: POOLBed: 05/27/2018 [id number] Ambulatory [facility] Repository ORLANDOBuildi ng:AGVASACC 05/25/2018/05/25/19 [id number] Ambulatory [address] Repository 05/25/2018/05/25/19 [id number] Ambulatory [address] MEDICAL Repository ORLANDOBuildi ng:AGCARDPOB 05/25/2018/05/25/19 [id number] Ambulatory [address] Repository 05/25/2018/05/25/19 [id number] Ambulatory [address] MEDICAL Repository CENTERBuildi ng:AGVASACC 05/25/2018 [id number] Ambulatory [facility] Repository 05/25/2018/05/25/19 [id number] Ambulatory [address] MEDICAL Repository ORLANDOBuildi ng:AKLB 05/22/2018/05/24/19 [id number] [place], Inpatient Elena [place] 19 [place] Encounter [facility] ding:PCURoom Repository : [id number]: 1 05/22/2018 [id number] Katerina, Ambulatory BMSBuilding: Elena Polo BMS.[facility] Repository 05/22/2018 [id number] [place], Ambulatory BMSBuilding: [place] BMS.[facility] Repository 05/22/2018 [id number] [place], Ambulatory BMSBuilding: Elena [place] BMS.[facility] Repository 05/22/2018 [id number] [place], Ambulatory BMSBuilding: Elena Vanegas BMS.[facility] Repository 04/30/2018/04/30/20 [id number] Ambulatory [address] Repository 04/30/2018/04/30/20 [id number] Ambulatory [place] [address] MEDICAL Repository CENTERBuildi ng:AGVASACC 04/30/2018/04/30/20 [id number] Ambulatory [address] Repository 04/30/2018/04/30/20 [id number] Ambulatory [place] [address] MEDICAL Repository CENTERBuildi ng:AGINTMACC 04/16/2018/04/23/20 [id number] LARR, Inpatient [address] Repository 04/16/2018/04/23/20 [id number] [facility] [place] [address] MEDICAL Repository ORLANDOBuildi nRoom: 4209Bed: 04/13/2018 [id number] Ambulatory [facility] Repository 04/13/2018/04/13/20 [id number] Ambulatory [place] [address] MEDICAL Repository CENTERBuildi ng:AKLBG 04/09/2018/04/09/20 [id number] Ambulatory [address] Repository 04/09/2018/04/09/20 [id number] Ambulatory [place] [address] MEDICAL Repository CENTERBuildi ng:AGVASACC 04/09/2018 [id number] Ambulatory [facility] Repository 04/09/2018/04/09/20 [id number] Ambulatory [place] [address] MEDICAL Repository CENTERBuildi ng:AKXRGN 04/06/2018 [id number] Ambulatory [place] [facility] MEDICAL Repository CENTERBuildi ng:AGINTMACC 04/02/2018 [id number] Ambulatory [place] [facility] MEDICAL Repository CENTERBuildi ng:AGINTMACC 03/31/2018 [id number] FRANCYLER, Ambulatory [place] [facility] MEDICAL Repository CENTERBuildi ng:AKCATH 03/24/2018/04/02/20 [id number] SETH, Inpatient Faria [facility] Other NANO [place] Repository 03/24/2018/04/02/20 [id number] SETH, Inpatient [place] [facility] [address] [facility] MEDICAL Repository ORLANDOBuildi nRoom: 4225Bed: 03/24/2018/03/24/20 [id number] Emergency [address] Other [place] Repository 03/24/2018/03/24/20 [id number] Emergency [place] [address] MEDICAL Repository CENTERBuildi ng:AKEDGRoom : EDBed: 03/24/2018 [id number] Ambulatory [facility] Other [place] Repository 03/24/2018/03/24/20 [id number] Ambulatory [place] [address] MEDICAL Repository ORLANDOBuildi ng:AKLB 03/24/2018/03/24/20 [id number] Ambulatory [address] Other [place] Repository 03/24/2018/03/24/20 [id number] Ambulatory [place] [address] MEDICAL Repository CENTERBuildi ng:AGINTMACC 03/19/2018/03/19/20 [id number] Ambulatory [address] Other [place] Repository 03/19/2018/03/19/20 [id number] Ambulatory [place] [address] MEDICAL Repository CENTERBuildi ng:AGINTMACC 03/16/2018/03/16/20 [id number] Ambulatory [address] Other [place] Repository 03/16/2018/03/16/20 [id number] Ambulatory [place] [address] MEDICAL Repository CENTERBuildi ng:AGCARDPOB 10/29/2017/10/30/19 [id number] Ambulatory [address] Other [place] Repository 10/29/2017/10/30/19 [id number] Ambulatory [place] [address] MEDICAL Repository CENTERBuildi ng:AKVASLB 10/28/2017 [id number] Ambulatory [facility] Repository 10/01/2017 [id number] Ambulatory [facility] Other [place] Repository 10/01/2017/10/02/19 [id number] Ambulatory [place] [address] MEDICAL Repository CENTERBuildi ng:AKLBG 09/24/2017 [id number] Ambulatory [facility] Repository 09/24/2017 [id number] Ambulatory [facility] MEDICAL Repository CENTERBuildi ng:AKCTG 09/24/2017 [id number] Ambulatory [facility] Repository 09/24/2017 [id number] Ambulatory [place] [facility] MEDICAL Repository CENTERBuildi ng:AKCTG 09/24/2017 [id number] Ambulatory [place] [facility] MEDICAL Repository CENTERBuildi ng:AKCTG 09/24/2017 [id number] Ambulatory [facility] MEDICAL Repository CENTERBuildi ng:AKCTG 08/12/2017/08/13/19 [id number] Ambulatory [address] Repository 08/12/2017/08/13/19 [id number] Ambulatory [place] [address] MEDICAL Repository CENTERBuildi ng:AKMAG 07/13/2017/07/14/19 [id number] Ambulatory [address] Repository 07/13/2017/07/14/19 [id number] Ambulatory [place] [address] MEDICAL Repository CENTERBuildi ng:AGCARDPOB 07/05/2017/07/06/19 [id number] Emergency [address] Repository 07/05/2017/07/06/19 [id number] Emergency [address] MEDICAL Repository ORLANDOBuildi ng:AKEDGRoom : EDBed: 06/04/2017 [id number] Ambulatory [facility] Repository 06/04/2017/06/04/19 [id number] Ambulatory [address] MEDICAL Repository CENTERBuildi ng:AKCRLG PAYERS PAYERS ENCOUNTER GUARANTOR PAYER SUBSCRIBER SOURCE 05/29/2018 GLORIA [id number] [facility] Insurance:NEFTALY LOPEZ: [facility]MA [facility]: [id number] [id number]: 330 [id number] Repository [phone] () Date:[id number]LE [place] [id number]: 05/29/2018 Secondary NOT GIVENUNK [place] Insurance:SELF PAY [facility] Number: Effective Repository Date:2018-05-29 05/29/2018 GLORIA J Primary GLORIA Merly LaurentCharlotte [id number] [facility] Insurance:AETNA SNYDERDOB: [facility] [place] [facility] Number: [id number] [address]Jdi: 330 [id number] Repository [phone] (HP) Date:8534-95-10BX [address] [address]WO: 05/29/2018 Secondary NOT GIVENUNK Elena Insurance:SELF PAY [facility] Number: Effective Repository Date:2018-05-29 05/27/2018 GLORIA J Primary GLORIA J [facility] SNYDERDOB: Insurance:AETNA SNYDERDOB: [facility] System MEDICARE HMOPolicy [id number] Repository KENIA PEDRORON, Number: [place] [address]Tkb: [id number] Date: (HP) 05/27/2018 GLORIA Moreland Primary Insurance:THP GLORIA Merly [facility] SNYDERDOB: SECURECHOICE MDCR SNYDERDOB: [facility] Number: [id number] Repository KENIA BETHEA, [id number] [place] [address]Jvg: Date: (HP) 05/25/2018 GLORIA J Primary GLORIA J [facility] SNYDERDOB: Insurance:AETNA SNYDERDOB: [facility] System MEDICARE HMOPolicy [id number] Repository KENIA PEDRORON, Number: [place] [address]Xzy: [id number] Date: (HP) 05/25/2018 GLORIA J Primary GLORIA J [facility] SNYDERDOB: Insurance:AETNA SNYDERDOB: [facility] System MEDICARE HMOPolicy [id number] Repository GONZALEZ RDKVN[address]ON, Number: [place] [address]Mxl: [id number] Date: (HP) 05/25/2018 GLORIA J Primary GLORIA J [facility] SNYDERDOB: Insurance:AETNA SNYDERDOB: [facility] System MEDICARE HMOPolicy [id number] Repository [address]KV[address], Number: [place] [address]Gxm: [id number] Date: (HP) 05/22/2018 GLORIA J Primary GLORIA J [place] [id number] [facility] Insurance:AETNA SNYDERDOB: [facility] [place] [facility] Number: [id number] Hospital [address]Dgg: [phone]) [id number] Repository [phone] (HP) Date:2918-95-27[address], [place] [address]PJ: 05/22/2018 Secondary NOT GIVENUNK [place] Insurance:SELF PAY [facility] Number: Effective Repository Date:2018-05-21 05/22/2018 GLORIA J Primary GLORIA J [place] [id number] [facility] Insurance:AETNA SNYDERDOB: [facility] [place] [facility] Number: [id number] Hospital [address]Ugh: [phone]) [id number] Repository [phone] (HP) Date:9784-30-06TW [address], [place] [address]QD: 05/22/2018 Secondary NOT GIVENUNK Elena Insurance:SELF PAY [facility] Number: Effective Repository Date:2018-05-21 05/22/2018 GLORIA J Primary GLORIA J [place] [id number] [facility] Insurance:AETNA SNYDERDOB: [place] [facility] Number: [id number] Hospital [address]Mql: [phone]) [id number] Repository [phone] (HP) Date:8731-44-99BV [address], [place] [address]VD: 05/22/2018 Secondary NOT GIVENUNK [place] Insurance:SELF PAY [facility] Number: Effective Repository Date:2018-05-22 05/22/2018 GLORIA Merly Primary GLORIA Merly LaurentElena [id number] [facility] Insurance:AETNA SNYDERDOB: [facility] [place] [facility] Number: [id number] Hospital [address]Nkd: (330) [id number] Repository [phone] (HP) Date:2009-99-48KV [address], [place] [address]XO: 05/22/2018 Secondary NOT GIVENUNK Elena Insurance:SELF PAY [facility] Number: Effective Repository Date:2018-05-22 05/22/2018 GLORIA Merly Primary GLORIA Merly [place] [id number] [facility] Insurance:AETNA SNYDERDOB: [facility] [place] [facility] Number: [id number] Hospital [address]Igo: ([phone]) [id number] Repository [phone] (HP) Date:2567-21-35NM [address], [place] [address]WQ: 05/22/2018 Secondary NOT GIVENUNK Elena Insurance:SELF PAY [facility] Number: Effective Repository Date:2018-05-22 04/30/2018 GLORIA Moreland Primary Insurance:THP GLORIA [facility] SNYDERDOB: SECURECHOICE MDCR SNYDERDOB: [facility] PPOPolicy Number: [id number] Repository GONZALEZ [place], [id number] [place] [address]Ece: Date: (HP) 04/30/2018 GLORIA Moreland Primary Insurance:THP GLORIA [facility] SNYDERDOB: SECURECHOICE MDCR SNYDERDOB: [facility] PPOPolicy Number: [id number] Repository GONZALEZ [place], [id number] [place] [address]Jba: Date: () 04/16/2018 GLORIA Moreland Primary Insurance:[facility] GLORIA [facility] SNYDERDOB: SECURECHOICE MDCR SNYDERDOB: [facility] PPOPolicy Number: [id number] Repository GONZALEZ [place], [id number] [place] [address]Nra: Date: () 04/13/2018 GLORIA J Primary Insurance:[facility] GLORIA [facility] SNYDERDOB: SECURECHOICE MDCR SNYDERDOB: [facility] PPOPolicy Number: [id number] Repository GONZALEZ [place], [id number] [place] [address]Bim: Date: () 04/09/2018 GLORIA J Primary Insurance:[facility] GLORIA [facility] SNYDERDOB: SECURECHOICE MDCR SNYDERDOB: [facility] System PPOPolicy Number: [id number] Repository GONZALEZ [place], [id number] [place] [address]Bpz: Date: () 04/09/2018 GLORIA J Primary Insurance:[facility] GLORIA [facility] SNYDERDOB: SECURECHOICE MDCR SNYDERDOB: [facility] PPOPolicy Number: [id number] Repository GONZALEZ [place], [id number] [place] [address]Kdg: Date: () 04/06/2018 GLORIA J Primary Insurance:[facility] GLORIA [facility] SNYDERDOB: SECURECHOICE MDCR SNYDERDOB: [facility] PPOPolicy Number: [id number] Repository GONZALEZ [place], [id number] [place] [address]Vtw: Date: () 04/02/2018 GLORIA J Primary Insurance:THP GLORIA [facility] SNYDERDOB: SECURECHOICE MDCR SNYDERDOB: [facility] PPOPolicy Number: [id number] Repository GONZALEZ [place], [id number] [place] [address]Yoc: Date: () 03/31/2018 GLORIA J Primary Insurance:THP GLORIA [facility] SNYDERDOB: SECURECHOICE MDCR SNYDERDOB: [facility] PPOPolicy Number: [id number] Repository GONZALEZ [place], [id number] [place] [address]Gzp: Date: () 03/24/2018 GLORIA J Primary Insurance:[facility] GLORIA [facility] SNYDERDOB: SECURECHOICE MDCR SNYDERDOB: [facility] System PPOPolicy Number: [id number] Repository GONZALEZ [place], [id number] [place] [address]Tzk: Date: () 03/24/2018 GLORIA J Primary Insurance:[facility] GLORIA [facility] SNYDERDOB: SECURECHOICE MDCR SNYDERDOB: [facility] System PPOPolicy Number: [id number] Repository GONZALEZ [place], [id number] [place] [address]Fvs: Date: () 03/24/2018 GLORIA J Primary Insurance:[facility] GLORIA [facility] SNYDERDOB: SECURECHOICE MDCR SNYDERDOB: [facility] System PPOPolicy Number: [id number] Repository GONZALEZ [place], [id number] [place] [address]Uub: Date: () 03/24/2018 GLORIA J Primary Insurance:THP GLORIA [facility] SNYDERDOB: SECURECHOICE MDCR SNYDERDOB: [facility] PPOPolicy Number: [id number] Repository GONZALEZ [place], [id number] [place] [address]Ero: Date: () 03/19/2018 GLORIA Moreland Primary Insurance:[facility] GLORIA Hair [facility] SNYDERDOB: SECURECHOICE MDCR SNYDERDOB: [facility] System PPOPolicy Number: [id number] Repository G[address]ALEZ [place], [id number] [place] [address]Dnl: Date: () 03/16/2018 GLORIA Moreland Primary Insurance:[facility] GLORIA [facility] SNYDERDOB: SECURECHOICE MDCR SNYDERDOB: [facility] System PPOPolicy Number: [id number] Repository G[address]ZALEZ [place], [id number] [place] [address]Nwg: Date: () 10/29/2017 GLORIA Moreland Primary Insurance:[facility] GLORIA [facility] SNYDERDOB: SECURECHOICE MDCR SNYDERDOB: [facility] System PPOPolicy Number: [id number] Repository GONZALEZ [place], [id number] [place] [address]Ylf: Date: () 10/28/2017 Gloria SnyderDOB: Primary Insurance:[facility]: [facility] [address] [id number] System [address], Number: Effective Repository [place] [address]Ptr: Date: () 10/01/2017 GLORIA Moreland Primary Insurance:[facility] GLORIA Hair [facility] SNYDERDOB: SECURECHOICE MDCR SNYDERDOB: [facility] System PPOPolicy Number: [id number] Repository GONZALEZ [place], [id number] [place] [address]Ftu: Date: () 09/24/2017 GLORIA J Primary Insurance:[facility] GLORIA J [facility] SNYDERDOB: SECURECHOICE MDCR SNYDERDOB: [facility] System PPOPolicy Number: [id number] Repository GONZALEZ [place], [id number] [place] [address]Bgj: Date: () 09/24/2017 GLORIA J Primary Insurance:THP GLORIA [facility] SNYDERDOB: SECURECHOICE MDCR SNYDERDOB: [facility] System PPOPolicy Number: [id number] Repository GONZALEZ [place], [id number] [place] [address]Xlo: Date: () 09/24/2017 GLORIA J Primary Insurance:[facility] GLORIA [facility] SNYDERDOB: SECURECHOICE MDCR SNYDERDOB: [facility] System PPOPolicy Number: [id number] Repository G[address]ZALEZ [place], [id number] [place] [address]Oiq: Date: () 09/24/2017 GLORIA J Primary Insurance:[facility] GLORIA Hair [facility] SNYDERDOB: SECURECHOICE MDCR SNYDERDOB: [facility] System PPOPolicy Number: [id number] Repository G[address]ZALEZ [place], [id number] [place] [address]Tci: Date: () 08/12/2017 GLORIA J Primary Insurance:THP GLORIA [facility] SNYDERDOB: SECURECHOICE MDCR SNYDERDOB: [facility] System PPOPolicy Number: [id number] Repository [address]ZALEZ [place], [id number] [place] [address]Bce: Date: () 07/13/2017 GLORIA J Primary Insurance:THP GLORIA [facility] SNYDERDOB: SECURECHOICE MDCR SNYDERDOB: [facility] System PPOPolicy Number: [id number] Repository KENIA BETHEA, [id number] [place] [address]Hyv: Date: () 07/05/2017 GLORIA Moreland Primary Insurance:[facility] GLORIA aHir [facility] SNERB: SECURECHOICE [facility]: [facility] System PPOPolicy Number: [id number] Krista BETHEA, [id number] [place] [address]Hsb: Date: () 06/04/2017 GLORIA Moreland Primary Insurance:[facility] GLORIA Hair [facility] SECURECHOICE [facility]: Health System PPOPolicy Number: [id number] BETHEA, [id number] [place] [address]Uyw: Date: ()
== END 2018-05-24 14:47 | disposition home or self-care (01) | DRG 308 ==
LOC: ED 05-22 00:03 → PCU 05-22 00:21
PROVIDERS: Family Medicine; Nurse Practitioner Family; Admitting Provider Internal Medicine; Emergency Provider Emergency Medicine; Visit Provider Internal Medicine
DX: I48.91 Unspecified atrial fibrillation (principal); J18.9 Pneumonia, unspecified organism; I24.8 Other forms of acute ischemic heart disease; E87.6 Hypokalemia; Z95.2 Presence of prosthetic heart valve; G47.33 Obstructive sleep apnea (adult) (pediatric); I10 Essential (primary) hypertension
CPT/HCPCS: 36415; 71046; 80048; 80053; 80061; 83735; 84443; 84484; 85025; 85610; 93005; 97802; 99284; J7030; A4216; J1940

== ENCOUNTER 2018-05-29 19:48 | Inpatient (IN) | payer MEDICARE, SELFPAY ==
[2018-05-22 01:07] VITALS: BMI 27.0
[2018-05-29] VITALS (7 sets, daily range): BP systolic 119–135; BP diastolic 48–74; PULSE 57–60; RESP 16–29; TEMP 36.1–37.2; O2SAT 93–97; BMI 25.2; BMI 26.7
--- NOTE | 2018-05-29 19:54 | EKG12_ITS ---
Test Reason : SOB Blood Pressure : / mmHG Vent. Rate : 062 BPM Atrial Rate : 063 BPM P-R Int : 000 ms QRS Dur : 094 ms QT Int : 562 ms P-R-T Axes : 000 084 037 degrees QTc Int : 570 ms Normal sinus rhythm Nonspecific ST and T wave abnormality Prolonged QT Abnormal ECG Confirmed by ANTHONY WARD, LAMONT ([id number]), senior editor SAMANTHA CANTU ([id number]) on 06/01/2018 2:09:42 PM Referred By: TRISTEN Confirmed By:LAMONT CRUZ MD
--- NOTE | 2018-05-29 19:55 | RAD_ITS ---
STUDY: X-RAY CHEST REASON FOR EXAM: Female, 77 years old. Abnormal left chest auscultation exam, shortness of breath, cardioversion 2 days ago TECHNIQUE: AP COMPARISON: 05/21/2018 FINDINGS: Increased opacity of the left lung base compatible with enlarging pleural effusion and/or underlying infiltrate/atelectasis. No pneumothorax. There is mild cardiac enlargement. Sternotomy wires noted. A troponins clip present. Normal visualized pulmonary arteries. Normal visualized aortic arch and descending thoracic aorta. No acute bony process. There is no demonstrated abnormality of the visualized soft tissue structures of the upper abdomen. RAD/Chest 1 View (Portable) IMPRESSION: Increased left pleural effusion and left lower lobe atelectasis/infiltrate. Electronically Signed: Memo Hurd MD at 20:42 EST , Service support ,
--- NOTE | 2018-05-29 20:10 | ED.DCSUM_ITS ---
- ER Visit Summary Date of Service: 05/29/18 Chief Complaint: [] Shortness of breath recent mitral valve replacement surgery, Maze procedure for A. fib, cardioversion at [facility] related to the above History of Present Illness: The patient is a 77 F [] recently found to have worsening A. fib mitral valve disease March, she underwent mitral valve replacement surgery at [facility] and a Maze procedure the Maze procedure did not cause termination of the A. fib, she recently had a cardioversion, 1 week he was admitted to [facility] related to pneumonia she been doing well at home complete a prescription of Augmentin for the last day or so she has had nonspecific chest sense of shortness of breath, her sister is a nurse and listen to the left side of her lung and noticed some crackles and diminished sounds to this area and she was brought to the hospital for evaluation, there is no fever no cough no abdominal pain, she is on Coumadin INR is been 4.5 she takes her Coumadin Thursday and Thursday no significant edema except at one time she thought her hands were swollen but that seems to have been improved This time resting comfortably in the bed no distress with no specific complaints her pulse ox is 99% on room air she speaking in full sentences Physical Examination: [] 120/66, pulse ox 94% room air, afebrile General, no distress resting comfortably she is in no distress speaking full sentences HEENT is generally unremarkable The neck is supple no adenopathy Cardiovascular, regular rate and rhythm Lungs, clear bilateral, there do appear to be crackles and slight diminished breath sounds at the left base Abdomen, soft nontender Extremities, no clubbing cyanosis or edema Neurologic, awake alert answering questions appropriately moving all 4 extremities Test Results: [] Emergency Department Course and Treatment: [] EKG shows appears to be a sinus rhythm or possibly even a junctional rhythm rate is about 60 her blood pressure is within normal range as above as are the rest of her vital signs chest x-ray shows a left pleural effusion were tried compared to old 1 screening labs Radiology left pleural effusion is more prominent than prior, the screening labs are generally unremarkable, the patient is indicating as is her family that again she is more short of breath, does not feel she can be managed as an outpatient given that she is followed all the outpatient regimen prescribed for her and she is not improving she is comfortable staying at [facility] does not wish to be transferred to [facility] I have asked the hospitalist see her for admission and further management Treatment Plan: [] Disposition: [] Admit stable Impression: [] Dyspnea related to left pleural effusion, recent mitral valve r eplacement, history of A. fib with recent cardioversion This note was generated with [employer] dictation software. It may contain incorrect words, spelling, and punctuation that were not noted in review of the chart prior to signing ED Disposition - Plan for ED Patient: Chief Complaint: Shortness of Breath Referrals: [facility] Doctor,Out of [Primary Care Provider] -
[2018-05-29 20:20] LABS: Absolute Lymphocyte Count 1.08 X10^3/ul (0.83-4.51); Absolute Neutrophil Count 2.8 X10^3/uL (2.0-7.7); Basophil# 0.08 X10^3/uL; Basophil% 1.7 % (0-1); Eosinophil# 0.27 X10^3/uL; Eosinophils% 5.7 % (0-5); Hematocrit 35.7 % (37-47); Hemoglobin 10.8 g/dl (12.0-15.0); Lymphocyte # 1.08 X10^3/ul (4.0); Lymphocyte % 22.7 % (19-41); Mean Corp Hgb Conc 30.3 g/gl (32-36); Mean Corpuscular Hgb 26.8 pg (27.0-32.0); Mean Corpuscular Volume 88.6 fL (81-99); Mean Platelet Vol. 8.6 fl (6.2-12.0); Monocyte# 0.51 X10^3/uL; Monocyte% 10.7 % (0-10); Platelet Count 296 K/mm3 (150-450); RBC Distribution Width CV 14.9 % (11.6-14.6); RBC Distribution Width SD 48.3 fl (35.1-43.9); Red Blood Count 4.03 M/mm3 (4.2-5.4); White Blood Count 4.8 K/mm3 (4.4-11.0)
[2018-05-29 20:21] LABS: POSITIVE COUNT NO; POSITIVE DIFFERENTIAL NO; POSITIVE MORPHOLOGY NO
[2018-05-29 20:26] LABS: International Normalized Ratio 1.3; Prothrombin Time (Protime)PT. 16.3 SECONDS (11.7-14.9)
[2018-05-29 20:38] LABS: Anion Gap 8 (5-15); BUN 13 mg/dL (7-18); Calcium,Total 8.7 mg/dL (8.5-10.1); Chloride 108 mmol/L (98-107); Creatinine, Serum 0.93 mg/dL (0.55-1.02); EST Glomerular Filtration Rate 62 mL/min (>60); Est Glom Filt Rate - Afr Amer 75 mL/min (>60); Estimated Creatinine Clearance 41.34 ml/min; Glucose 105 mg/dL (74-106); Potassium 3.7 mmol/L (3.5-5.1); Sodium Level 142 mmol/L (136-145)
[2018-05-29 21:19] LABS: BNP,B-Type NATRIURETIC PEPTIDE 793.6 pg/mL (0-100)
--- NOTE | 2018-05-29 22:30 | PCM.HP.STD ---
Problem List (1) Left moderate pleural effusion Status: Acute (2) Atrial fibrillation with RVR Status: Resolved (3) History of mitral valve replacement Status: Chronic (4) History of maze procedure Status: Chronic (5) Pneumonia Status: Chronic Qualifiers: Laterality: right Lung location: middle lobe of lung History of Present Illness Date of Admission: 05/29/18 Chief Complaint: Shortness of breath started today The patient is a 77 year old F with multiple comorbidities as mentioned below came to ED with shortness of breath that is started today. Patient was discharged on 05/24/2018 after management for A. fib with RVR, community-acquired pneumonia. She has recent mitral valve replacement, maze procedure and atrial appendage ligation done in [facility]. Patient's primary home care giver is Dr. Perez in [place]. After discharge she was cardioverted and currently patient is in sinus rhythm. She denies chest pain/pressure/tightness, palpitation or flutter waves, syncope. She has positive orthopnea and dyspnea on exertion and even at rest. In ED, heart rate 50-60, respiratory rate 24-29 pulse ox 94% on room air. EKG shows junctional rhythm at 62 bpm with QTC 570 ms. There is a small P waves present therefore sinus rhythm. [] Past Medical History Past Medical History (Chronic Problems): Chronic Problems History of mitral valve replacement (Chronic) History of maze procedure (Chronic) Pneumonia (Chronic) Allergies No Known Allergies Allergy (Verified 05/29/18 19:49) Home Medications: Ambulatory Orders Medication Instructions Recorded Acetaminophen 650 mg PO Q4H PRN 05/21/18 Albuterol IH (ProAir) [Proair Hfa] 2 puff INHALATION Q6H PRN PRN 05/21/18 Alendronate Sodium [Fosamax] 70 mg PO QWEEK 05/21/18 Amiodarone HCl 200 mg PO TID 05/21/18 Ascorbic Acid [Vitamin C] 500 mg PO BID 05/21/18 Aspirin [Aspirin, Baby] 81 mg PO DAILY@0800 05/21/18 Atorvastatin Calcium 10 mg PO DAILY 05/21/18 Biotin/Silicon Diox/l-Cysteine 1 each PO DAILY 05/21/18 [Paco Matrix 5000 ER Tablet] Ishaan/D3/Mag11/Zinc/Super[employer]/Papito/Bor 1 each PO DAILY 05/21/18 [Caltrate 600+D Plus Tablet] Cholecalciferol (VIT D3) [Vitamin 1,000 unit PO DAILY 05/21/18 D3] Cholestyramine (with Sugar) 4 gm PO DAILY 05/21/18 [Questran Packet] Cyanocobalamin (Vitamin B-12) 1,000 mcg SL DAILY 05/21/18 [Vitamin B-12] Ferrous Sulfate 325 mg PO BIDCM 05/21/18 Gabapentin [Neurontin] 200 mg PO QHS 05/21/18 Melatonin 3 mg PO QHS PRN PRN 05/21/18 Multivitamin [Multivitamins] 1 each PO DAILY 05/21/18 Pramipexole Di-HCl [Pramipexole 0.25 mg PO QHS 05/21/18 Dihydrochloride] Warfarin [Coumadin] 0.5 mg PO MOFR 05/21/18 Furosemide [Lasix] 20 mg PO DAILY PRN 05/29/18 Metoprolol Tartrate [Lopressor 25 mg PO TID 05/29/18 (beta edson)] Potassium Chloride 20 meq PO DAILY 05/29/18 Surgical History: - - mitral valve replacement with left atrial appendage ligation and maze procedure Smoking Status: Never smoker - *Family History Maternal History Items: No pertinent history Review of Systems Constitutional: Reports: Weakness. Denies: Chills, Fever HEENT: Denies: Head Aches, Sinus Congestion, Sinus Drainage Cardiovascular: Reports: Claudication, Edema. Denies: Chest Pain, Chest Pressure, Chest Tightness, Palpitations Respiratory: Reports: Shortness of breath at rest, Shortness of breath upon exertion. Denies: Cough, Pleuritic Pain, Sputum production Gastrointestinal: Denies: Abdominal Pain, Nausea, Vomiting Genitourinary: Denies: Dysuria Musculoskeletal: Denies: Joint Pain, Joint Tenderness Skin: Denies: Rash, Wounds Neurological: Denies: Numbness, Tingling, Focal weakness Psychiatric: Denies: Anxiety, Depression, Homicidal Ideations, Suicidal Ideations Hematologic/ Lymphatic: Denies: Easy Bruising, Easy Bleeding VTE Information - Inpt Only VTE Present on Admission: No VTE Mechan Device Prophylaxis: None VTE Pharm Prophylaxis ordered?: Yes Patient Problems: Active and Suspected Problems Left moderate pleural effusion (Acute) - Physical Exam General: Alert, Oriented x3, Cooperative HEENT: Atraumatic, PERRLA, EOMI, Normocephalic Oral: Dry Mucosa Neck: Supple, No JVD, Negative Carotid Bruits Lungs: Clear to auscultation, Diminished - Air entry diminished in posterior half of left lung, left moderate pleural effusion, Short of Breath, - - Stony dullness present below fifth intercostal costal space posterior scapular line on left side Cardiovascular: Regular rate, No murmurs Abdomen: Bowel Sounds Present, Soft, Non Tender Extremities: No edema, Capillary Refill Less than 3 Seconds Skin: No rashes, No breakdown Musculoskeletal: No Tenderness to Palpation of Joints or Extremities, Arthritic Changes Neurological: Cranial nerves II-XII grossly intact, Deep Tendon Reflexes 2+/4 and Symmetrical, Neuro grossly intact Psych/Mental Status: Normal Affect, Appropriate Vital Signs Temp Pulse Resp BP Pulse Ox 99.0 F 60 29 H 128/60 H 94 05/29/18 22:08 05/29/18 22:29 05/29/18 22:29 05/29/18 22:29 05/29/18 22:29 Oxygen Delivery Method Room Air Weight: 138 lb Body Mass Index (BMI) 25.2 Laboratory Tests Past 24 Hrs 05/29/18 05/29/18 05/29/18 20:00 20:00 20:00 WBC 4.8 RBC 4.03 L Hgb 10.8 L Hct 35.7 L MCV 88.6 MCH 26.8 L MCHC 30.3 L RDW 14.9 H RDW Differential 48.3 H Plt Count 296 MPV 8.6 Immature Gran % (Auto) 0.200 Neut % (Auto) 59.0 Lymph % (Auto) 22.7 [place] % (Auto) 10.7 H Eos % (Auto) 5.7 H Baso % (Auto) 1.7 H Absolute Neuts (auto) 2.8 Absolute Lymphs (auto) 1.08 Total Counted Not Reportable PT INR Sodium 142 Potassium 3.7 Chloride 108 H Carbon Dioxide 26.0 Anion Gap 8 BUN 13 Creatinine 0.93 Estim Creat Clear Calc 41.34 Est GFR (MDRD) Af Amer 75 Est GFR (MDRD) Non-Af 62 BUN/Creatinine Ratio 14.0 Glucose 105 Calcium 8.7 Troponin I 0.084 H B-Natriuretic Peptide 793.6 H 05/29/18 20:00 WBC RBC Hgb Hct MCV MCH MCHC RDW RDW Differential Plt Count MPV Immature Gran % (Auto) Neut % (Auto) Lymph % (Auto) [place] % (Auto) Eos % (Auto) Baso % (Auto) Absolute Neuts (auto) Absolute Lymphs (auto) Total Counted PT 16.3 H INR 1.3 Sodium Potassium Chloride Carbon Dioxide Anion Gap BUN Creatinine Estim Creat Clear Calc Est GFR (MDRD) Af Amer Est GFR (MDRD) Non-Af BUN/Creatinine Ratio Glucose Calcium Troponin I B-Natriuretic Peptide Assessment/Plan All Active Problems Left moderate pleural effusion (Acute) Atrial fibrillation with RVR (Resolved) The patient is a 77 year old F with multiple comorbidities as mentioned below came to ED with shortness of breath that is started today. Patient was discharged on 05/24/2018 after management for A. fib with RVR, community-acquired pneumonia. She has recent mitral valve replacement, maze procedure and atrial appendage ligation done in [facility]. Patient's primary home care giver is Dr. Peerz in [place]. After discharge she was cardioverted and currently patient is in sinus rhythm. She denies chest pain/pressure/tightness, palpitation or flutter waves, syncope. She has positive orthopnea and dyspnea on exertion and even at rest. In ED, heart rate 50-60, respiratory rate 24-29 pulse ox 94% on room air. EKG shows junctional rhythm at 62 bpm with QTC 570 ms. There is a small P waves present therefore sinus rhythm. 1. Left moderate pleural effusion possible postpneumonic/cardiac: Patient completed treatment of Augmentin at the time of discharge. No leukocytosis or fever. Lasix 40 mg IV now and then daily. Monitor intake and output. Pulmonary consult for left-sided thoracocentesis and further pleural fluid analysis. Supplement potassium as patient is on Lasix. 2. Paroxysmal A. fib status post maze procedure/atrial appendage ligation and recent post discharge cardioversion: Continue cardiac medication. QTC is prolonged, most probably from amiodarone; avoid QT prolonging medication. Since she is on amiodarone 200 mg 3 times daily we will decrease to once or twice daily to keep heart rate in 60s?70s. Currently in normal sinus rhythm. Keep electrolytes at optimal level. On Coumadin. INR is 1.3 3. Recent mitral valve replacement, patient has bioprosthetic valve. 4. Obstructive sleep apnea on CPAP 5. Hypertension: Blood pressure is controlled DVT prophylaxis: On Coumadin INR is subtherapeutic. Coumadin 5 mg 1 dose given. PT/INR tomorrow a.m. Laboratory Results 05/29/18 20:00: WBC 4.8, RBC 4.03 L, Hgb 10.8 L, Hct 35.7 L, MCV 88.6, MCH 26.8 L, MCHC 30.3 L, RDW 14.9 H, RDW Differential 48.3 H, Plt Count 296, MPV 8.6, Immature Gran % (Auto) 0.200, Neut % (Auto) 59.0, Lymph % (Auto) 22.7, [place] % (Auto) 10.7 H, Eos % (Auto) 5.7 H, Baso % (Auto) 1.7 H, Absolute Neuts (auto) 2.8, Absolute Lymphs (auto) 1.08, Total Counted Not Reportable 05/29/18 20:00: Sodium 142, Potassium 3.7, Chloride 108 H, Carbon Dioxide 26.0, Anion Gap 8, BUN 13, Creatinine 0.93, Estim Creat Clear Calc 41.34, Est GFR (MDRD) Af Amer 75, Est GFR (MDRD) Non-Af 62, BUN/Creatinine Ratio 14.0, Glucose 105, Calcium 8.7, Troponin I 0.084 H 05/29/18 20:00: B-Natriuretic Peptide 793.6 H 05/29/18 20:00: PT 16.3 H, INR 1.3 Clinical Impression(s) from Imaging Studies Chest X-Ray 05/29/18 19:55 IMPRESSION: Increased left pleural effusion and left lower lobe atelectasis/infiltrate. Code Visit Inpatient E&M: 83468 Init Hosp L3
--- NOTE | 2018-05-29 22:35 | HP.PCM_ITS ---
Problem List (1) Left moderate pleural effusion Status: Acute (2) Atrial fibrillation with RVR Status: Resolved (3) History of mitral valve replacement Status: Chronic (4) History of maze procedure Status: Chronic (5) Pneumonia Status: Chronic Qualifiers: Laterality: right Lung location: middle lobe of lung History of Present Illness Date of Admission: 05/29/18 Chief Complaint: Shortness of breath started today The patient is a 77 year old F with multiple comorbidities as mentioned below came to ED with shortness of breath that is started today. Patient was discharged on 05/24/2018 after management for A. fib with RVR, community-acquired pneumonia. She has recent mitral valve replacement, maze procedure and atrial appendage ligation done in [facility]. Patient's primary monitor technician is Dr. Perez in [place]. After discharge she was cardioverted and currently patient is in sinus rhythm. She denies chest pain/pressure/tightness, palpitation or flutter waves, syncope. She has positive orthopnea and dyspnea on exertion and even at rest. In ED, heart rate 50-60, respiratory rate 24-29 pulse ox 94% on room air. EKG shows junctional rhythm at 62 bpm with QTC 570 ms. There is a small P waves present therefore sinus rhythm. [] Past Medical History Past Medical History (Chronic Problems): Chronic Problems History of mitral valve replacement (Chronic) History of maze procedure (Chronic) Pneumonia (Chronic) Allergies No Known Allergies Allergy (Verified 05/29/18 19:49) Home Medications: Ambulatory Orders Medication Instructions Recorded Acetaminophen 650 mg PO Q4H PRN 05/21/18 Albuterol IH (ProAir) [Proair Hfa] 2 puff INHALATION Q6H PRN PRN 05/21/18 Alendronate Sodium [Fosamax] 70 mg PO QWEEK 05/21/18 Amiodarone HCl 200 mg PO TID 05/21/18 Ascorbic Acid [Vitamin C] 500 mg PO BID 05/21/18 Aspirin [Aspirin, Baby] 81 mg PO DAILY@0800 05/21/18 Atorvastatin Calcium 10 mg PO DAILY 05/21/18 Biotin/Silicon Diox/l-Cysteine 1 each PO DAILY 05/21/18 [Paco Matrix 5000 ER Tablet] Ishaan/D3/Mag11/Zinc/Handhole Machine Operator/Papito/Bor 1 each PO DAILY 05/21/18 [Caltrate 600+D Plus Tablet] Cholecalciferol (VIT D3) [Vitamin 1,000 unit PO DAILY 05/21/18 D3] Cholestyramine (with Sugar) 4 gm PO DAILY 05/21/18 [Questran Packet] Cyanocobalamin (Vitamin B-12) 1,000 mcg SL DAILY 05/21/18 [Vitamin B-12] Ferrous Sulfate 325 mg PO BIDCM 05/21/18 Gabapentin [Neurontin] 200 mg PO QHS 05/21/18 Melatonin 3 mg PO QHS PRN PRN 05/21/18 Multivitamin [Multivitamins] 1 each PO DAILY 05/21/18 Pramipexole Di-HCl [Pramipexole 0.25 mg PO QHS 05/21/18 Dihydrochloride] Warfarin [Coumadin] 0.5 mg PO MOFR 05/21/18 Furosemide [Lasix] 20 mg PO DAILY PRN 05/29/18 Metoprolol Tartrate [Lopressor 25 mg PO TID 05/29/18 (beta edson)] Potassium Chloride 20 meq PO DAILY 05/29/18 Surgical History: - - mitral valve replacement with left atrial appendage ligation and maze procedure Smoking Status: Never smoker - *Family History Maternal History Items: No pertinent history Review of Systems Constitutional: Reports: Weakness. Denies: Chills, Fever HEENT: Denies: Head Aches, Sinus Congestion, Sinus Drainage Cardiovascular: Reports: Claudication, Edema. Denies: Chest Pain, Chest Pressure, Chest Tightness, Palpitations Respiratory: Reports: Shortness of breath at rest, Shortness of breath upon exertion. Denies: Cough, Pleuritic Pain, Sputum production Gastrointestinal: Denies: Abdominal Pain, Nausea, Vomiting Genitourinary: Denies: Dysuria Musculoskeletal: Denies: Joint Pain, Joint Tenderness Skin: Denies: Rash, Wounds Neurological: Denies: Numbness, Tingling, Focal weakness Psychiatric: Denies: Anxiety, Depression, Homicidal Ideations, Suicidal Ideations Hematologic/ Lymphatic: Denies: Easy Bruising, Easy Bleeding VTE Information - Inpt Only VTE Present on Admission: No VTE Mechan Device Prophylaxis: None VTE Pharm Prophylaxis ordered?: Yes Patient Problems: Active and Suspected Problems Left moderate pleural effusion (Acute) - Physical Exam General: Alert, Oriented x3, Cooperative HEENT: Atraumatic, PERRLA, EOMI, Normocephalic Oral: Dry Mucosa Neck: Supple, No JVD, Negative Carotid Bruits Lungs: Clear to auscultation, Diminished - Air entry diminished in posterior half of left lung, left moderate pleural effusion, Short of Breath, - - Stony dullness present below fifth intercostal costal space posterior scapular line on left side Cardiovascular: Regular rate, No murmurs Abdomen: Bowel Sounds Present, Soft, Non Tender Extremities: No edema, Capillary Refill Less than 3 Seconds Skin: No rashes, No breakdown Musculoskeletal: No Tenderness to Palpation of Joints or Extremities, Arthritic Changes Neurological: Cranial nerves II-XII grossly intact, Deep Tendon Reflexes 2+/4 and Symmetrical, Neuro grossly intact Psych/Mental Status: Normal Affect, Appropriate Vital Signs Temp Pulse Resp BP Pulse Ox 99.0 F 60 29 H 128/60 H 94 05/29/18 22:08 05/29/18 22:29 05/29/18 22:29 05/29/18 22:29 05/29/18 22:29 Oxygen Delivery Method Room Air Weight: 138 lb Body Mass Index (BMI) 25.2 Laboratory Tests Past 24 Hrs 05/29/18 05/29/18 05/29/18 20:00 20:00 20:00 WBC 4.8 RBC 4.03 L Hgb 10.8 L Hct 35.7 L MCV 88.6 MCH 26.8 L MCHC 30.3 L RDW 14.9 H RDW Differential 48.3 H Plt Count 296 MPV 8.6 Immature Gran % (Auto) 0.200 Neut % (Auto) 59.0 Lymph % (Auto) 22.7 [place] % (Auto) 10.7 H Eos % (Auto) 5.7 H Baso % (Auto) 1.7 H Absolute Neuts (auto) 2.8 Absolute Lymphs (auto) 1.08 Total Counted Not Reportable PT INR Sodium 142 Potassium 3.7 Chloride 108 H Carbon Dioxide 26.0 Anion Gap 8 BUN 13 Creatinine 0.93 Estim Creat Clear Calc 41.34 Est GFR (MDRD) Af Amer 75 Est GFR (MDRD) Non-Af 62 BUN/Creatinine Ratio 14.0 Glucose 105 Calcium 8.7 Troponin I 0.084 H B-Natriuretic Peptide 793.6 H 05/29/18 20:00 WBC RBC Hgb Hct MCV MCH MCHC RDW RDW Differential Plt Count MPV Immature Gran % (Auto) Neut % (Auto) Lymph % (Auto) [place] % (Auto) Eos % (Auto) Baso % (Auto) Absolute Neuts (auto) Absolute Lymphs (auto) Total Counted PT 16.3 H INR 1.3 Sodium Potassium Chloride Carbon Dioxide Anion Gap BUN Creatinine Estim Creat Clear Calc Est GFR (MDRD) Af Amer Est GFR (MDRD) Non-Af BUN/Creatinine Ratio Glucose Calcium Troponin I B-Natriuretic Peptide Assessment/Plan All Active Problems Left moderate pleural effusion (Acute) Atrial fibrillation with RVR (Resolved) The patient is a 77 year old F with multiple comorbidities as mentioned below came to ED with shortness of breath that is started today. Patient was discharged on 05/24/2018 after management for A. fib with RVR, community-acquired pneumonia. She has recent mitral valve replacement, maze procedure and atrial appendage ligation done in [facility]. Patient's primary monitor technician is Dr. Perez in [place]. After discharge she was cardioverted and currently patient is in sinus rhythm. She denies chest pain/pressure/tightness, palpitation or flutter waves, syncope. She has positive orthopnea and dyspnea on exertion and even at rest. In ED, heart rate 50-60, respiratory rate 24-29 pulse ox 94% on room air. EKG shows junctional rhythm at 62 bpm with QTC 570 ms. There is a small P waves present therefore sinus rhythm. 1. Left moderate pleural effusion possible postpneumonic/cardiac: Patient completed treatment of Augmentin at the time of discharge. No leukocytosis or fever. Lasix 40 mg IV now and then daily. Monitor intake and output. Pulmonary consult for left-sided thoracocentesis and further pleural fluid analysis. Supplement potassium as patient is on Lasix. 2. Paroxysmal A. fib status post maze procedure/atrial appendage ligation and recent post discharge cardioversion: Continue cardiac medication. QTC is prolonged, most probably from amiodarone; avoid QT prolonging medication. Since she is on amiodarone 200 mg 3 times daily we will decrease to once or twice daily to keep heart rate in 60s?70s. Currently in normal sinus rhythm. Keep electrolytes at optimal level. On Coumadin. INR is 1.3 3. Recent mitral valve replacement, patient has bioprosthetic valve. 4. Obstructive sleep apnea on CPAP 5. Hypertension: Blood pressure is controlled DVT prophylaxis: On Coumadin INR is subtherapeutic. Coumadin 5 mg 1 dose given. PT/INR tomorrow a.m. Laboratory Results 05/29/18 20:00: WBC 4.8, RBC 4.03 L, Hgb 10.8 L, Hct 35.7 L, MCV 88.6, MCH 26.8 L, MCHC 30.3 L, RDW 14.9 H, RDW Differential 48.3 H, Plt Count 296, MPV 8.6, Immature Gran % (Auto) 0.200, Neut % (Auto) 59.0, Lymph % (Auto) 22.7, [place] % (Auto) 10.7 H, Eos % (Auto) 5.7 H, Baso % (Auto) 1.7 H, Absolute Neuts (auto) 2.8, Absolute Lymphs (auto) 1.08, Total Counted Not Reportable 05/29/18 20:00: Sodium 142, Potassium 3.7, Chloride 108 H, Carbon Dioxide 26.0, Anion Gap 8, BUN 13, Creatinine 0.93, Estim Creat Clear Calc 41.34, Est GFR (MDR D) Af Amer 75, Est GFR (MDRD) Non-Af 62, BUN/Creatinine Ratio 14.0, Glucose 105, Calcium 8.7, Troponin I 0.084 H 05/29/18 20:00: B-Natriuretic Peptide 793.6 H 05/29/18 20:00: PT 16.3 H, INR 1.3 Clinical Impression(s) from Imaging Studies Chest X-Ray 05/29/18 19:55 IMPRESSION: Increased left pleural effusion and left lower lobe atelectasis/infiltrate. Code Visit Inpatient E&M: 13166 Init Hosp L3
[2018-05-30] VITALS (15 sets, daily range): BP systolic 106–117; BP diastolic 42–48; PULSE 50–72; RESP 16–18; TEMP 36.6–36.9; O2SAT 95–98
[2018-05-30] MEDS: Furosemide 40 MG/4 ML Vial IV ×2 (00:28→10:50)
[2018-05-30] MEDS: 0.9% NaCl Peripheral Flush Adult/Peds IV (00:28)
[2018-05-30] MEDS: Amiodarone 200 MG Tablet PO ×2 (00:29→09:20)
[2018-05-30] MEDS: Atorvastatin Calcium 10 MG Tablet PO ×2 (00:55→21:11)
[2018-05-30] MEDS: MELATONIN 3 MG TABLET PO ×2 (00:55→21:13)
[2018-05-30] MEDS: Pramipexole Di-HCl 0.25 MG Tablet PO ×2 (00:56→21:12)
[2018-05-30] MEDS: Gabapentin 100 MG Capsule 200 MG PO ×2 (00:56→21:12)
[2018-05-30 05:57] LABS: Absolute Lymphocyte Count 0.98 X10^3/ul (0.83-4.51); Absolute Neutrophil Count 2.9 X10^3/uL (2.0-7.7); Basophil# 0.09 X10^3/uL; Basophil% 1.9 % (0-1); Eosinophil# 0.28 X10^3/uL; Eosinophils% 5.9 % (0-5); Hematocrit 31.4 % (37-47); Hemoglobin 9.7 g/dl (12.0-15.0); International Normalized Ratio 1.4; Lymphocyte # 0.98 X10^3/ul (4.0); Lymphocyte % 20.8 % (19-41); Mean Corp Hgb Conc 30.9 g/gl (32-36); Mean Corpuscular Hgb 27.1 pg (27.0-32.0); Mean Corpuscular Volume 87.7 fL (81-99); Mean Platelet Vol. 8.8 fl (6.2-12.0); Monocyte# 0.48 X10^3/uL; Monocyte% 10.2 % (0-10); Neutrophil # 2.87 X10^3/uL (2.7-7.7); Platelet Count 289 K/mm3 (150-450); Prothrombin Time (Protime)PT. 17.4 SECONDS (11.7-14.9); RBC Distribution Width CV 14.6 % (11.6-14.6); RBC Distribution Width SD 45.2 fl (35.1-43.9); Red Blood Count 3.58 M/mm3 (4.2-5.4); White Blood Count 4.7 K/mm3 (4.4-11.0)
[2018-05-30 06:06] LABS: POSITIVE COUNT NO; POSITIVE DIFFERENTIAL NO; POSITIVE MORPHOLOGY NO
[2018-05-30 06:10] LABS: Anion Gap 10 (5-15); BUN 12 mg/dL (7-18); BUN/Creat Ratio 15.5 RATIO (10-20); Calcium,Total 8.5 mg/dL (8.5-10.1); Chloride 107 mmol/L (98-107); Creatinine, Serum 0.78 mg/dL (0.55-1.02); EST Glomerular Filtration Rate 77 mL/min (>60); Est Glom Filt Rate - Afr Amer 93 mL/min (>60); Estimated Creatinine Clearance 36.68 ml/min; Glucose 81 mg/dL (74-106); Potassium 3.3 mmol/L (3.5-5.1); Sodium Level 144 mmol/L (136-145)
--- NOTE | 2018-05-30 07:26 | CON.PCM_ITS ---
Problem List (1) Left moderate pleural effusion Status: Acute (2) Atrial fibrillation with RVR Status: Resolved (3) History of mitral valve replacement Status: Chronic (4) History of maze procedure Status: Chronic Reason for Consult Date of Consultation: 05/30/18 Reason for Consultation: 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 History of Present Illness: The patient is a 77 year old F, with past medical history listed below, who presented to [facility] on 05/29/2018 secondary to shortness of breath. Patient was admitted last week and given the diagnosis of pneumonia. Patient was sent home with a prescription for Augmentin, but reported no significant improvement. Patient presented back to the ER with complaints of continued shortness of breath. Patient not reported any fever, cough or abdominal pain. Patient is on Coumadin at baseline secondary to a mitral valve replacement and Maze procedure for A. fib at [facility] in March. In the emergency room, patient was noted to be 94% on room air. EKG showed sinus rhythm and chest x-ray shows a moderate to large left pleural effusion. Patient was admitted to the floor for further management. Patient did receive Lasix overnight, but reports no subjective change in overall condition. Patient reports she has been compliant with her noninvasive therapy for TRISH. Patient states that she had a cardioversion on secondary to atrial fibrillation at [facility]. Patient denies any previous history of pleural effusion. Patient reports no history of smoking, alcohol or drugs. No environmental or travel exposures are reported. Patient denies any recent weight loss or rashes. Patient has not had any syncope or trauma reported. Review of systems otherwise negative x10 systems. Past Medical History Past Medical History (Chronic Problems): Chronic Problems History of mitral valve replacement (Chronic) History of maze procedure (Chronic) Pneumonia (Chronic) Allergies No Known Allergies Allergy (Verified 05/29/18 19:49) Home Medications: Ambulatory Orders Medication Instructions Recorded Acetaminophen 650 mg PO Q4H PRN 05/21/18 Albuterol IH (ProAir) [Proair Hfa] 2 puff INHALATION Q6H PRN PRN 05/21/18 Alendronate Sodium [Fosamax] 70 mg PO QWEEK 05/21/18 Amiodarone HCl 200 mg PO TID 05/21/18 Ascorbic Acid [Vitamin C] 500 mg PO BID 05/21/18 Aspirin [Aspirin, Baby] 81 mg PO DAILY@0800 05/21/18 Atorvastatin Calcium 10 mg PO DAILY 05/21/18 Biotin/Silicon Diox/l-Cysteine 1 each PO DAILY 05/21/18 [Paco Matrix 5000 ER Tablet] Ishaan/D3/Mag11/Zinc/Senior Software Tester/Papito/Bor 1 each PO DAILY 05/21/18 [Caltrate 600+D Plus Tablet] Cholecalciferol (VIT D3) [Vitamin 1,000 unit PO DAILY 05/21/18 D3] Cholestyramine (with Sugar) 4 gm PO DAILY 05/21/18 [Questran Packet] Cyanocobalamin (Vitamin B-12) 1,000 mcg SL DAILY 05/21/18 [Vitamin B-12] Ferrous Sulfate 325 mg PO BIDCM 05/21/18 Gabapentin [Neurontin] 200 mg PO QHS 05/21/18 Melatonin 3 mg PO QHS PRN PRN 05/21/18 Multivitamin [Multivitamins] 1 each PO DAILY 05/21/18 Pramipexole Di-HCl [Pramipexole 0.25 mg PO QHS 05/21/18 Dihydrochloride] Warfarin [Coumadin] 0.5 mg PO MOFR 05/21/18 Cyclobenzaprine [Flexeril] 5 mg PO BID PRN 05/29/18 Furosemide [Lasix] 20 mg PO DAILY PRN 05/29/18 Metoprolol Tartrate [Lopressor 25 mg PO TID 05/29/18 (beta edson)] Potassium Chloride 20 meq PO DAILY PRN 05/29/18 Surgical History: - - mitral valve replacement with left atrial appendage ligation and maze procedure Smoking Status: Never smoker - *Family History Maternal History Items: No pertinent history Review of Systems Comment: See HPI, otherwise negative x10 systems. Patient Problems: Active and Suspected Problems Left moderate pleural effusion (Acute) Objective: Chest x-ray was personally reviewed and shows continued left-sided pleural effusion. This is slightly worse compared to chest x-ray from 1 week ago. - Physical Exam General: Alert, Oriented x3, Cooperative, No apparent distress, Well developed, Well nourished, - - No conversational dyspnea. HEENT: Atraumatic, PERRLA, EOMI, Normocephalic, - - No scleral icterus or injec tion noted. Oral: Moist Mucosa, No Gingival or Mucosal Lesions/ Ulcerations, - - Fair dentition Neck: Supple, No JVD, No Nodes, Trachea Midline Lungs: No rhonchi, No wheeze, Diminished - Left base, Rales - Left, - - Symmetric expansion. Dullness to percussion of the left base. Cardiovascular: Regular rate, Regular Rhythm, Normal S1, Normal S2, No murmurs, No rub noted, No Gallop Abdomen: Bowel Sounds Present, Soft, Non Tender, Non-Distended Extremities: No clubbing, No cyanosis, No edema, Capillary Refill Less than 3 Seconds Skin: No rashes, No breakdown Musculoskeletal: No Tenderness to Palpation of Joints or Extremities Lymphatic: No Cervical, Supraclavicular, or Inguinal Adenopathy Neurological: Cranial nerves II-XII grossly intact, Neuro grossly intact, Motor Exam 5/5 strength throughout Psych/Mental Status: Alert and oriented to time, place, person, mood and affect Vital Signs Temp Pulse Resp BP Pulse Ox 36.9 C 55 L 18 117/45 L 98 05/30/18 05:57 05/30/18 06:17 05/30/18 05:57 05/30/18 05:57 05/30/18 05:57 Oxygen Delivery Method CPAP Weight: 65.9 kg Body Mass Index (BMI) 26.7 Intake and Output for Last 24 Hours 05/28/18 05/29/18 05/30/18 23:59 23:59 23:59 Intake Total 240 / 240 Balance 240 / 240 Laboratory Tests Past 24 Hrs 05/29/18 05/29/18 05/29/18 20:00 20:00 20:00 WBC 4.8 RBC 4.03 L Hgb 10.8 L Hct 35.7 L MCV 88.6 MCH 26.8 L MCHC 30.3 L RDW 14.9 H RDW Differential 48.3 H Plt Count 296 MPV 8.6 Immature Gran % (Auto) 0.200 Neut % (Auto) 59.0 Lymph % (Auto) 22.7 [place] % (Auto) 10.7 H Eos % (Auto) 5.7 H Baso % (Auto) 1.7 H Absolute Neuts (auto) 2.8 Absolute Lymphs (auto) 1.08 Total Counted Not Reportable PT INR Sodium 142 Potassium 3.7 Chloride 108 H Carbon Dioxide 26.0 Anion Gap 8 BUN 13 Creatinine 0.93 Estim Creat Clear Calc 41.34 Est GFR (MDRD) Af Amer 75 Est GFR (MDRD) Non-Af 62 BUN/Creatinine Ratio 14.0 Glucose 105 Calcium 8.7 Troponin I 0.084 H B-Natriuretic Peptide 793.6 H 05/29/18 05/30/18 05/30/18 20:00 00:20 03:10 WBC RBC Hgb Hct MCV MCH MCHC RDW RDW Differential Plt Count MPV Immature Gran % (Auto) Neut % (Auto) Lymph % (Auto) [place] % (Auto) Eos % (Auto) Baso % (Auto) Absolute Neuts (auto) Absolute Lymphs (auto) Total Counted PT 16.3 H INR 1.3 Sodium Potassium Chloride Carbon Dioxide Anion Gap BUN Creatinine Estim Creat Clear Calc Est GFR (MDRD) Af Amer Est GFR (MDRD) Non-Af BUN/Creatinine Ratio Glucose Calcium Troponin I 0.094 H 0.095 H B-Natriuretic Peptide 05/30/18 05/30/18 05/30/18 05:17 05:17 05:17 WBC 4.7 RBC 3.58 L Hgb 9.7 L Hct 31.4 L MCV 87.7 MCH 27.1 MCHC 30.9 L RDW 14.6 RDW Differential 45.2 H Plt Count 289 MPV 8.8 Immature Gran % (Auto) 0.200 Neut % (Auto) 61.0 Lymph % (Auto) 20.8 [place] % (Auto) 10.2 H Eos % (Auto) 5.9 H Baso % (Auto) 1.9 H Absolute Neuts (auto) 2.9 Absolute Lymphs (auto) 0.98 Total Counted Not Reportable PT 17.4 H INR 1.4 Sodium 144 Potassium 3.3 L Chloride 107 Carbon Dioxide 27.0 Anion Gap 10 BUN 12 Creatinine 0.78 Estim Creat Clear Calc 36.68 Est GFR (MDRD) Af Amer 93 Est GFR (MDRD) Non-Af 77 BUN/Creatinine Ratio 15.5 Glucose 81 Calcium 8.5 Troponin I B-Natriuretic Peptide Clinical Impression(s) from Imaging Studies Chest X-Ray 05/29/18 19:55 IMPRESSION: Increased left pleural effusion and left lower lobe atelectasis/infiltrate. Electronically Signed: Memo Hurd MD at 20:42 EST , Service support , Assessment/Plan All Active Problems Left moderate pleural effusion (Acute) Atrial fibrillation with RVR (Resolved) RECOMMENDATIONS: 1. Initiate heparin drip for anticoagulation 2. Continue diuresis with Lasix 3. Arrange for thoracentesis, diagnostic and therapeutic 4. Cardiac optimization IMPRESSIONS: 1. Moderate left pleural effusion Patient appeared to have pleural effusion on previous chest x-ray. Patient has not had any significant leukocytosis, fever or productive cough. Low clinical suspicion for acute infectious etiology. After review of the risks, benefits and alternatives, patient has agreed to a thoracentesis, both diagnostic and therapeutic. Further recommendations once testing is completed. 2. Paroxysmal A. fib status post Maze procedure, atrial ligation and cardioversion Patient appears to be in normal sinus rhythm at this time. High clinical suspicion for transudative effusion secondary to A. fib and recent Maze procedure. We will continue to monitor with telemetry. 3. Recent mitral valve replacement Patient's INR is currently subtherapeutic. Patient should be placed on a heparin drip for therapeutic anticoagulation. This can be stopped for thoracentesis. Patient will likely require bridging of Coumadin therapy given normal INR at this time. Patient is in normal sinus rhythm, but does have a bioprosthetic mitral valve that is relatively new. 4. TRISH/hypertension/hyperlipidemia/osteoporosis Complicates care, management, recovery and prognosis. Okay to continue with baseline medications. Code Visit Inpatient E&M: 16139 Init Hosp L3
[2018-05-30] MEDS: Famotidine 20 MG Tablet PO (09:20)
[2018-05-30] MEDS: Multivitamins,Therapeutic Tablet 1 TABLET PO (09:20)
[2018-05-30] MEDS: Cyanocobalamin 500 MCG Tablet 1000 MCG PO (09:20)
[2018-05-30] MEDS: Aspirin 81 MG TAB.CHEW PO (09:20)
[2018-05-30] MEDS: Ascorbic Acid 500 MG Tablet PO ×2 (09:20→21:13)
--- NOTE | 2018-05-30 09:40 | EKG12_ITS ---
Test Reason : ARRHYTMIA Blood Pressure : / mmHG Vent. Rate : 058 BPM Atrial Rate : 058 BPM P-R Int : 176 ms QRS Dur : 094 ms QT Int : 582 ms P-R-T Axes : -31 071 099 degrees QTc Int : 571 ms Unusual P axis, possible ectopic atrial bradycardia T wave abnormality, consider anterolateral ischemia Prolonged QT Abnormal ECG Confirmed by BRINA WARD, PITO ([id number]), news videotape editor SAMANTHA CANTU ([id number]) on 06/03/2018 8:33:15 AM Referred By: PHILLY Confirmed By:PITO GONSALVES MD
[2018-05-30] MEDS: Cholestyramine/Sucrose 4 GM/PACKET PO (10:20)
--- NOTE | 2018-05-30 11:52 | PN_ITS ---
<Joselito Montesinos - Last Filed: 05/30/18 11:46> Patient Problems: Active and Suspected Problems Left moderate pleural effusion (Acute) Subjective: Patient resting comfortably in bed no acute distress. She notes that her lower extremity edema has significantly improved overnight. She had no sensation of palpitations this morning. She has no dizziness or lightheadedness. She does have some shortness of breath still at rest. No cough. No fevers or chills. - Physical Exam General: Alert, Oriented x3, Cooperative HEENT: Atraumatic, PERRLA, EOMI, Normocephalic Neck: Supple, No JVD, Negative Carotid Bruits Lungs: Rales Cardiovascular: Irregular Rate, Murmur Abdomen: Bowel Sounds Present, Soft, Non Tender Extremities: No edema, Capillary Refill Less than 3 Seconds Skin: No rashes, No breakdown Musculoskeletal: No Tenderness to Palpation of Joints or Extremities Neurological: Cranial nerves II-XII grossly intact Psych/Mental Status: Normal Affect, Appropriate, Alert and oriented to time, place, person, mood and affect Vital Signs Temp Pulse Resp BP Pulse Ox 98.4 F 58 L 18 117/45 L 95 05/30/18 05:57 05/30/18 08:16 05/30/18 05:57 05/30/18 05:57 05/30/18 06:54 Oxygen Delivery Method Room Air Weight: 145 lb 4.554 oz Body Mass Index (BMI) 26.7 Intake and Output for Last 24 Hours 05/28/18 05/29/18 05/30/18 23:59 23:59 23:59 Intake Total 240 / 240 Balance 240 / 240 Laboratory Tests Past 24 Hrs 05/29/18 05/29/18 05/29/18 20:00 20:00 20:00 WBC 4.8 RBC 4.03 L Hgb 10.8 L Hct 35.7 L MCV 88.6 MCH 26.8 L MCHC 30.3 L RDW 14.9 H RDW Differential 48.3 H Plt Count 296 MPV 8.6 Immature Gran % (Auto) 0.200 Neut % (Auto) 59.0 Lymph % (Auto) 22.7 [place] % (Auto) 10.7 H Eos % (Auto) 5.7 H Baso % (Auto) 1.7 H Absolute Neuts (auto) 2.8 Absolute Lymphs (auto) 1.08 Total Counted Not Reportable PT INR Sodium 142 Potassium 3.7 Chloride 108 H Carbon Dioxide 26.0 Anion Gap 8 BUN 13 Creatinine 0.93 Estim Creat Clear Calc 41.34 Est GFR (MDRD) Af Amer 75 Est GFR (MDRD) Non-Af 62 BUN/Creatinine Ratio 14.0 Glucose 105 Calcium 8.7 Magnesium Troponin I 0.084 H B-Natriuretic Peptide 793.6 H 05/29/18 05/30/18 05/30/18 20:00 00:20 03:10 WBC RBC Hgb Hct MCV MCH MCHC RDW RDW Differential Plt Count MPV Immature Gran % (Auto) Neut % (Auto) Lymph % (Auto) [place] % (Auto) Eos % (Auto) Baso % (Auto) Absolute Neuts (auto) Absolute Lymphs (auto) Total Counted PT 16.3 H INR 1.3 Sodium Potassium Chloride Carbon Dioxide Anion Gap BUN Creatinine Estim Creat Clear Calc Est GFR (MDRD) Af Amer Est GFR (MDRD) Non-Af BUN/Creatinine Ratio Glucose Calcium Magnesium Troponin I 0.094 H 0.095 H B-Natriuretic Peptide 05/30/18 05/30/18 05/30/18 03:10 05:17 05:17 WBC 4.7 RBC 3.58 L Hgb 9.7 L Hct 31.4 L MCV 87.7 MCH 27.1 MCHC 30.9 L RDW 14.6 RDW Differential 45.2 H Plt Count 289 MPV 8.8 Immature Gran % (Auto) 0.200 Neut % (Auto) 61.0 Lymph % (Auto) 20.8 Jerome % (Auto) 10.2 H Eos % (Auto) 5.9 H Baso % (Auto) 1.9 H Absolute Neuts (auto) 2.9 Absolute Lymphs (auto) 0.98 Total Counted Not Reportable PT 17.4 H INR 1.4 Sodium Potassium Chloride Carbon Dioxide Anion Gap BUN Creatinine Estim Creat Clear Calc Est GFR (MDRD) Af Amer Est GFR (MDRD) Non-Af BUN/Creatinine Ratio Glucose Calcium Magnesium 2.0 Troponin I B-Natriuretic Peptide 05/30/18 05:17 WBC RBC Hgb Hct MCV MCH MCHC RDW RDW Differential Plt Count MPV Immature Gran % (Auto) Neut % (Auto) Lymph % (Auto) [place] % (Auto) Eos % (Auto) Baso % (Auto) Absolute Neuts (auto) Absolute Lymphs (auto) Total Counted PT INR Sodium 144 Potassium 3.3 L Chloride 107 Carbon Dioxide 27.0 Anion Gap 10 BUN 12 Creatinine 0.78 Estim Creat Clear Calc 36.68 Est GFR (MDRD) Af Amer 93 Est GFR (MDRD) Non-Af 77 BUN/Creatinine Ratio 15.5 Glucose 81 Calcium 8.5 Magnesium Troponin I B-Natriuretic Peptide Medical Necessity - Tobacco Use Smoking Status: Never smoker Assessment/Plan All Active Problems Left moderate pleural effusion (Acute) Atrial fibrillation with RVR (Resolved) 1. Left pleural effusion-suspect acute congestive heart failure, I do not have an echo on file. Thoracentesis tomorrow with fluid panel is ordered. Pulmonology following. Continue Lasix. Improvement in lower extremity edema. BNP elevated. Troponin is indeterminate 2. Recent Maze procedure for atrial fibrillation-there was a run of torsades on the monitor today, she was given magnesium and replace K, restarting amiodarone at home 3 times daily dose. QTC is prolonged. Warfarin is held for thoracentesis. Continue heparin drip. Currently she is in sinus rhythm. 3. History of mitral valve replacement 4. TRISH-CPAP 5. Hypertension-stable DVT ppx: heparin DC planning: PTOT This patient was seen by Joselito Montesinos PA-C under the supervision of Doctor Michael. <Felipe Rodriguez F - Last Filed: 05/30/18 13:06> - Physical Exam Vital Signs Temp Pulse Resp BP Pulse Ox 98.4 F 58 L 18 117/45 L 95 05/30/18 05:57 05/30/18 08:16 05/30/18 05:57 05/30/18 05:57 05/30/18 06:54 Oxygen Delivery Method Room Air Weight: 145 lb 4.554 oz Body Mass Index (BMI) 26.7 Intake and Output for Last 24 Hours 05/28/18 05/29/18 05/30/18 23:59 23:59 23:59 Intake Total 240 / 240 Balance 240 / 240 Laboratory Tests Past 24 Hrs 05/29/18 05/29/18 05/29/18 20:00 20:00 20:00 WBC 4.8 RBC 4.03 L Hgb 10.8 L Hct 35.7 L MCV 88.6 MCH 26.8 L MCHC 30.3 L RDW 14.9 H RDW Differential 48.3 H Plt Count 296 MPV 8.6 Immature Gran % (Auto) 0.200 Neut % (Auto) 59.0 Lymph % (Auto) 22.7 [place] % (Auto) 10.7 H Eos % (Auto) 5.7 H Baso % (Auto) 1.7 H Absolute Neuts (auto) 2.8 Absolute Lymphs (auto) 1.08 Total Counted Not Reportable PT INR APTT Sodium 142 Potassium 3.7 Chloride 108 H Carbon Dioxide 26.0 Anion Gap 8 BUN 13 Creatinine 0.93 Estim Creat Clear Calc 41.34 Est GFR (MDRD) Af Amer 75 Est GFR (MDRD) Non-Af 62 BUN/Creatinine Ratio 14.0 Glucose 105 Calcium 8.7 Magnesium Troponin I 0.084 H B-Natriuretic Peptide 793.6 H 05/29/18 05/30/18 05/30/18 20:00 00:20 03:10 WBC RBC Hgb Hct MCV MCH MCHC RDW RDW Differential Plt Count MPV Immature Gran % (Auto) Neut % (Auto) Lymph % (Auto) [place] % (Auto) Eos % (Auto) Baso % (Auto) Absolute Neuts (auto) Absolute Lymphs (auto) Total Counted PT 16.3 H INR 1.3 APTT Sodium Potassium Chloride Carbon Dioxide Anion Gap BUN Creatinine Estim Creat Clear Calc Est GFR (MDRD) Af Amer Est GFR (MDRD) Non-Af BUN/Creatinine Ratio Glucose Calcium Magnesium Troponin I 0.094 H 0.095 H B-Natriuretic Peptide 05/30/18 05/30/18 05/30/18 03:10 05:17 05:17 WBC 4.7 RBC 3.58 L Hgb 9.7 L Hct 31.4 L MCV 87.7 MCH 27.1 MCHC 30.9 L RDW 14.6 RDW Differential 45.2 H Plt Count 289 MPV 8.8 Immature Gran % (Auto) 0.200 Neut % (Auto) 61.0 Lymph % (Auto) 20.8 [place] % (Auto) 10.2 H Eos % (Auto) 5.9 H Baso % (Auto) 1.9 H Absolute Neuts (auto) 2.9 Absolute Lymphs (auto) 0.98 Total Counted Not Reportable PT 17.4 H INR 1.4 APTT Sodium Potassium Chloride Carbon Dioxide Anion Gap BUN Creatinine Estim Creat Clear Calc Est GFR (MDRD) Af Amer Est GFR (MDRD) Non-Af BUN/Creatinine Ratio Glucose Calcium Magnesium 2.0 Troponin I B-Natriuretic Peptide 05/30/18 05/30/18 05:17 12:23 WBC RBC Hgb Hct MCV MCH MCHC RDW RDW Differential Plt Count MPV Immature Gran % (Auto) Neut % (Auto) Lymph % (Auto) [place] % (Auto) Eos % (Auto) Baso % (Auto) Absolute Neuts (auto) Absolute Lymphs (auto) Total Counted PT INR APTT Pending Sodium 144 Potassium 3.3 L Chloride 107 Carbon Dioxide 27.0 Anion Gap 10 BUN 12 Creatinine 0.78 Estim Creat Clear Calc 36.68 Est GFR (MDRD) Af Amer 93 Est GFR (MDRD) Non-Af 77 BUN/Creatinine Ratio 15.5 Glucose 81 Calcium 8.5 Magnesium Troponin I B-Natriuretic Peptide Code Visit Addendum: Dr. Rodriguez I personally examined the patient and reviewed the chart. I agree with the above. 77-year-old female with past medical history of A. fib with RVR status post left atrial appendage clip, maze procedure as well as a cardioversion on . Presents with shortness of breath that started yesterday. She was found to have a fairly large left pleural effusion and was admitted for thoracentesis. Of note she has been having an abnormal rhythm on her telemetry, though she is asymptomatic. Her heart rate sticks between the 50s and 60s and she does have a QTC of 570 ms on her initial EKG. She is on amiodarone at home at 200 mg p.o. 3 times daily, will discontinue this given her acute QTC prolongation, her QTC on an EKG in May 21, 2018 was 488 ms. Earlier today she did have a run of V. tach possibly torsades for about 6 seconds she was given magnesium sulfate. She is on warfarin as an outpatient which was discontinued and she was transitioned to a heparin drip that can be turned off prior to her thoracentesis tomorrow. She also had an elevated troponin on admission however this appears to be baseline based on the troponins that she had had a little over a week ago which were within the same range. Inpatient E&M: 05603 Subs Hosp L2
[2018-05-30 12:57] LABS: Partial Thromboplast Time 31.2 Seconds (24.1-36.2)
[2018-05-30] MEDS: HEPARIN/D5w 25,000 UNITS 25,000 UNITS/250 ML IV.SOLN. 10 UNITS IV (13:33)
[2018-05-30] MEDS: Ferrous Sulfate 325 MG Tablet PO (17:29)
[2018-05-30 20:56] LABS: Partial Thromboplast Time 61.5 Seconds (24.1-36.2)
[2018-05-30] MEDS: Metoprolol Tartrate 25 MG Tablet PO (21:12)
[2018-05-31] VITALS (12 sets, daily range): BP systolic 98–122; BP diastolic 35–61; PULSE 56–72; RESP 16–18; TEMP 36.7–36.9; O2SAT 94–97
[2018-05-31 02:48] LABS: Partial Thromboplast Time 104.9 Seconds (24.1-36.2)
[2018-05-31] MEDS: 0.9% NaCl Peripheral Flush Adult/Peds IV ×2 (06:27→06:28)
[2018-05-31 06:37] LABS: International Normalized Ratio 1.9; Prothrombin Time (Protime)PT. 21.6 SECONDS (11.7-14.9)
[2018-05-31 06:59] LABS: ALB/GLOB Ratio 0.8 RATIO (0.9-2.4); Anion Gap 11 (5-15); BUN 14 mg/dL (7-18); BUN/Creat Ratio 16.9 RATIO (10-20); Calcium,Total 8.5 mg/dL (8.5-10.1); Chloride 106 mmol/L (98-107); Creatinine, Serum 0.83 mg/dL (0.55-1.02); EST Glomerular Filtration Rate 71 mL/min (>60); Est Glom Filt Rate - Afr Amer 86 mL/min (>60); Estimated Creatinine Clearance 44.19 ml/min; Globulin 3.5 g/dL (2.2-4.2); Glucose 74 mg/dL (74-106); LDH 178 U/L (84-246); Potassium 3.4 mmol/L (3.5-5.1); Protein, Total 6.2 g/dL (6.4-8.2); Sodium Level 143 mmol/L (136-145)
--- NOTE | 2018-05-31 07:05 | PCM.PROGNOTE ---
Subjective: The patient was seen and examined at the bedside this morning. Events from the last 24 hours have been reviewed. The patient is currently afebrile, hemodynamically stable and maintaining appropriate oxygen saturations on room air. The patient reports no significant shortness of breath. She seems anxious for potential discharge home later today. She is currently scheduled to undergo an ultrasound-guided thoracentesis. However, the exact timing for the procedure is not known. Objective: The patient's most recent lab work, culture data and imaging studies have all been personally reviewed. Plain film chest x-ray dated May 29 revealed a moderate left-sided pleural effusion. - Physical Exam General: Alert, Cooperative, No apparent distress HEENT: Atraumatic, PERRLA, Normocephalic Oral: No Gingival or Mucosal Lesions/ Ulcerations Neck: Supple, No Nodes, Trachea Midline Lungs: No rhonchi, No wheeze, Diminished, Rales Cardiovascular: Regular rate, Regular Rhythm, Normal S1, Normal S2, No murmurs Abdomen: Bowel Sounds Present, Soft, Non Tender Extremities: No clubbing, No cyanosis, No edema Skin: No breakdown Musculoskeletal: No Tenderness to Palpation of Joints or Extremities Lymphatic: No Cervical, Supraclavicular, or Inguinal Adenopathy Neurological: Cranial nerves II-XII grossly intact, Neuro grossly intact Psych/Mental Status: Alert and oriented to time, place, person, mood and affect Vital Signs Temp Pulse Resp BP Pulse Ox 36.8 C 57 L 18 106/47 L 94 05/31/18 06:22 05/31/18 06:25 05/31/18 06:22 05/31/18 06:22 05/31/18 06:22 Oxygen Delivery Method CPAP Weight: 145 lb 4.554 oz Body Mass Index (BMI) 26.7 Intake and Output for Last 24 Hours 05/29/18 05/30/18 05/31/18 23:59 23:59 23:59 Intake Total 705.5 / 705.5 Balance 705.5 / 705.5 Laboratory Tests Past 24 Hrs 05/30/18 05/30/18 05/30/18 03:10 12:23 20:30 PT INR APTT 31.2 61.5 H Sodium Potassium Chloride Carbon Dioxide Anion Gap BUN Creatinine Estim Creat Clear Calc Est GFR (MDRD) Af Amer Est GFR (MDRD) Non-Af BUN/Creatinine Ratio Glucose Calcium Magnesium 2.0 Lactate Dehydrogenase Total Protein Globulin Albumin/Globulin Ratio 05/31/18 05/31/18 05/31/18 02:30 05:55 05:55 PT 21.6 H INR 1.9 APTT 104.9 H* Sodium 143 Potassium 3.4 L Chloride 106 Carbon Dioxide 26.0 Anion Gap 11 BUN 14 Creatinine 0.83 Estim Creat Clear Calc 44.19 Est GFR (MDRD) Af Amer 86 Est GFR (MDRD) Non-Af 71 BUN/Creatinine Ratio 16.9 Glucose 74 Calcium 8.5 Magnesium Lactate Dehydrogenase 178 Total Protein 6.2 L Globulin 3.5 Albumin/Globulin Ratio 0.8 L Clinical Impression(s) from Imaging Studies Chest X-Ray 05/29/18 19:55 IMPRESSION: Increased left pleural effusion and left lower lobe atelectasis/infiltrate. Electronically Signed: Memo Hurd MD at 20:42 EST , Service support , Medical Necessity - Tobacco Use Smoking Status: Never smoker Assessment/Plan All Active Problems Left moderate pleural effusion (Acute) Atrial fibrillation with RVR (Resolved) RECOMMENDATIONS: 1. Await ultrasound-guided thoracentesis today. 2. Send pleural fluid studies for cell count, cultures, cytology, LDH and total protein. 3. Check serum LDH and total protein. 4. Continue heparin drip. IMPRESSIONS: 1. Moderate left pleural effusion Although the patient does have evidence of a pleural effusion on plain film chest x-ray, she has not demonstrated any systemic signs or symptoms concerning for infection. The patients underlying cardiac function is not known to me. She is currently scheduled to undergo a diagnostic/therapeutic thoracentesis at some point today. Agree with sending pleural fluid studies to establish whether the patient's pleural effusion is transudate versus exudate. 2. Paroxysmal A. fib status post Maze procedure, atrial ligation and cardioversion Continue current medical management. 3. Recent mitral valve replacement Continue heparin infusion with plans to hold prior to thoracentesis. Patient will likely require some form of bridging anticoagulation, given the fact that her INR was subtherapeutic on presentation to the hospital. 4. TRISH/hypertension/hyperlipidemia/osteoporosis Complicates care, management, recovery and prognosis. Okay to continue with baseline medications. This note was generated with [employer] dictation software. It may contain incorrect words, spelling, and punctuation that were not noted in checking the note before signing. Code Visit Inpatient E&M: 58829 Subs Hosp L2
[2018-05-31] MEDS: Aspirin 81 MG TAB.CHEW PO (08:36)
[2018-05-31] MEDS: Multivitamins,Therapeutic Tablet 1 TABLET PO (08:36)
[2018-05-31] MEDS: Cholestyramine/Sucrose 4 GM/PACKET PO (10:04)
[2018-05-31] MEDS: Ascorbic Acid 500 MG Tablet PO (10:04)
[2018-05-31] MEDS: Cyanocobalamin 500 MCG Tablet 1000 MCG PO (10:06)
--- NOTE | 2018-05-31 10:51 | CASEMGMT ---
RN DL assessment: Face to Face with patient for initial transition planning/care coordination assessment. RN CM introduced self and role at [facility], pt voices understanding and consents to assessment at this time. Pt is sitting up in bed in no distress at this time. Pt is A/Ox4 at this time and answers all questions appropriately at this time. Pt's sister is at bedside during most of assessment. Care providers, pharmacy, and demographics verified at this time. PCP: [facility] in [place] Specialists: Subhash, cardiology in [place] Preferred Pharmacy: [facility] Insurance: AeR Prescription Benefit: AeMCR Living Will/HPOA: Pt does not currently have LW/HPOA and declines information at this time. LNOK: Pacheco Braxton, ; Naina Harrison, sister Living Arrangements: Pt states is currently living with her in her fathers home locally as she recovers from recent heart surgery. Pt's sister lives across the street and assists with care. Pt states has been independent with ADL's. Transportation: Pt states sister or drive and states no transportation concerns at this time. DME/HHC: Pt states has the following DME: hand held shower, walker, shower chair, and cpap thru [employer]. This RN CM had previously spoken with pt regarding transferring cpap to a DME company that is in [facility] with her current insurance but pt asks that this RN CM re-iterate all that to her sister at this time. This RN CM went over all this with pt and her sister at this time and they voice no further questions/concerns at this time. Pt states that she originally got the cpap through her PCP. Pt states she is current with [facility] for RN as therapy was too taxing previously. [facility] is aware that pt was admitted and that pt now to be transferred to [facility] at this time, voice understanding and they state that they will follow pt there. Pt states no concerns with going home at time of discharge. Pt is retired. Pt states does not smoke or drink ETOH. Pt states no further concerns/needs at this time. Pt now to be transferred to [facility] for ectopy and thoracentesis. Plan: Transfer [facility] [place] MARCELLA LIZAMA
[2018-05-31] MEDS: Ferrous Sulfate 325 MG Tablet PO ×2 (12:10→16:25)
[2018-05-31] MEDS: Furosemide 40 MG/4 ML Vial IV (12:13)
[2018-05-31 12:17] LABS: Absolute Neutrophil Count 2.4 X10^3/uL (2.0-7.7); Basophil# 0.09 X10^3/uL; Basophil% 2.1 % (0-1); Eosinophil# 0.32 X10^3/uL; Eosinophils% 7.4 % (0-5); Hematocrit 34.1 % (37-47); Hemoglobin 10.3 g/dl (12.0-15.0); Lymphocyte % 25.3 % (19-41); Mean Corp Hgb Conc 30.2 g/gl (32-36); Mean Corpuscular Hgb 26.3 pg (27.0-32.0); Mean Platelet Vol. 9.3 fl (6.2-12.0); Monocyte# 0.39 X10^3/uL; Neutrophil # 2.43 X10^3/uL (2.7-7.7); POSITIVE COUNT NO; POSITIVE DIFFERENTIAL NO; POSITIVE MORPHOLOGY NO; Platelet Count 285 K/mm3 (150-450); RBC Distribution Width SD 47.3 fl (35.1-43.9); Red Blood Count 3.92 M/mm3 (4.2-5.4); White Blood Count 4.3 K/mm3 (4.4-11.0)
[2018-05-31 12:45] LABS: Prothrombin Time (Protime)PT. 23.1 SECONDS (11.7-14.9)
[2018-05-31 12:46] LABS: Partial Thromboplast Time 35.2 Seconds (24.1-36.2)
--- NOTE | 2018-05-31 13:14 | PCM.DC.SUM ---
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 Consults: Cardiology - [facility] Pulmonology Randy Operations: None Procedures: None Summary of Care Provided: Hospital course: The patient is a 77 year old F with a pmhx of Afib with Maze procedure done last March which at time a mitral valve prosthesis was also placed ([facility]), and also with a cardioversion that was performed last week at [facility] (Dr. Perez), also with a hx of recent pneumonia, TRISH, and HTN, who presented to the ER with c/o SOB and LE edema. She had a moderate sized left pleural effusion on CXR, and an elevated BNP. She was admitted and placed on IV lasix with a pulmonary medicine consult. We planned to perform a thoracentesis for diagnostic purposes, however while here she developed an episode of torsades de pointe. At presentation her amiodarone was cut back to daily for a prolonged QT interval. She was administered potassium and mag. Cardiology came to evaluate the patient and felt that she should be evaluated by an research associate quality control qc, and called Dr. Perez at [facility] - she was accepted under his care and will be transferred to there ICU. While here she diuresed well with lasix and had significant improvement in her SOB and LE edema. She was transferred in stable condition. This patient was seen by Joselito Montesinos PA-C under the supervision of Doctor Brian. [] Patient Problems: Active and Suspected Problems Left moderate pleural effusion (Acute) - Physical Exam General: Alert, Oriented x3, Cooperative HEENT: Atraumatic, PERRLA, EOMI, Normocephalic Neck: Supple, No JVD, Negative Carotid Bruits Lungs: Rales Cardiovascular: Regular rate, No murmurs Abdomen: Bowel Sounds Present, Soft, Non Tender Extremities: No edema, Capillary Refill Less than 3 Seconds Skin: No rashes, No breakdown Musculoskeletal: No Tenderness to Palpation of Joints or Extremities Neurological: Cranial nerves II-XII grossly intact Psych/Mental Status: Normal Affect, Appropriate Vital Signs Temp Pulse Resp BP Pulse Ox 98.4 F 63 16 122/61 H 96 05/31/18 12:30 05/31/18 12:30 05/31/18 12:30 05/31/18 12:30 05/31/18 12:30 Oxygen Delivery Method Room Air Weight: 145 lb 4.554 oz Body Mass Index (BMI) 26.7 Intake and Output for Last 24 Hours 05/29/18 05/30/18 05/31/18 23:59 23:59 23:59 Intake Total 705.5 / 705.5 240 / 240 Balance 705.5 / 705.5 240 / 240 Laboratory Tests Past 24 Hrs 05/30/18 05/31/18 05/31/18 20:30 02:30 05:55 WBC RBC Hgb Hct MCV MCH MCHC RDW RDW Differential Plt Count MPV Immature Gran % (Auto) Neut % (Auto) Lymph % (Auto) [place] % (Auto) Eos % (Auto) Baso % (Auto) Absolute Neuts (auto) Absolute Lymphs (auto) Total Counted PT 21.6 H INR 1.9 APTT 61.5 H 104.9 H* Sodium Potassium Chloride Carbon Dioxide Anion Gap BUN Creatinine Estim Creat Clear Calc Est GFR (MDRD) Af Amer Est GFR (MDRD) Non-Af BUN/Creatinine Ratio Glucose Calcium Lactate Dehydrogenase Total Protein Globulin Albumin/Globulin Ratio 05/31/18 05/31/18 05/31/18 05:55 05:55 12:15 WBC 4.3 L RBC 3.92 L Hgb 10.3 L Hct 34.1 L MCV 87.0 MCH 26.3 L MCHC 30.2 L RDW 15.0 H RDW Differential 47.3 H Plt Count 285 MPV 9.3 Immature Gran % (Auto) 0.200 Neut % (Auto) 56.0 Lymph % (Auto) 25.3 [place] % (Auto) 9.0 Eos % (Auto) 7.4 H Baso % (Auto) 2.1 H Absolute Neuts (auto) 2.4 Absolute Lymphs (auto) 1.10 Total Counted Not Reportable PT 23.1 H INR 2.0 APTT 35.2 Sodium 143 Potassium 3.4 L Chloride 106 Carbon Dioxide 26.0 Anion Gap 11 BUN 14 Creatinine 0.83 Estim Creat Clear Calc 44.19 Est GFR (MDRD) Af Amer 86 Est GFR (MDRD) Non-Af 71 BUN/Creatinine Ratio 16.9 Glucose 74 Calcium 8.5 Lactate Dehydrogenase 178 Total Protein 6.2 L Globulin 3.5 Albumin/Globulin Ratio 0.8 L Discharge Diet: - - As directed by receiving facility Discharge Activity: - - As directed by receiving facility Home Medications: Medications to take at Discharge Acetaminophen 650 mg PO Q4H PRN 05/21/18 Albuterol IH (ProAir) [Proair Hfa] 2 puff INHALATION Q6H PRN PRN 05/21/18 Alendronate Sodium [Fosamax] 70 mg PO QWEEK 05/21/18 Amiodarone HCl 200 mg PO TID 05/21/18 Ascorbic Acid [Vitamin C] 500 mg PO BID 05/21/18 Aspirin [Aspirin, Baby] 81 mg PO DAILY@0800 05/21/18 Atorvastatin Calcium 10 mg PO DAILY 05/21/18 Biotin/Silicon Diox/l-Cysteine [[place] Matrix 5000 ER Tablet] 1 each PO DAILY 05/21/18 [place]/D3/Mag11/Zinc/Group Burner Machine/Papito/Bor [Caltrate 600+D Plus Tablet] 1 each PO DAILY 05/21/18 Cholecalciferol (VIT D3) [Vitamin D3] 1,000 unit PO DAILY 05/21/18 Cholestyramine (with Sugar) [Questran Packet] 4 gm PO DAILY 05/21/18 Cyanocobalamin (Vitamin B-12) [Vitamin B-12] 1,000 mcg SL DAILY 05/21/18 Ferrous Sulfate 325 mg PO BIDCM 05/21/18 Gabapentin [Neurontin] 200 mg PO QHS 05/21/18 Melatonin 3 mg PO QHS PRN PRN 05/21/18 Multivitamin [Multivitamins] 1 each PO DAILY 05/21/18 Pramipexole Di-HCl [Pramipexole Dihydrochloride] 0.25 mg PO QHS 05/21/18 Warfarin [Coumadin] 0.5 mg PO MOFR 05/21/18 Cyclobenzaprine [Flexeril] 5 mg PO BID PRN 05/29/18 Furosemide [Lasix] 20 mg PO DAILY PRN 05/29/18 Metoprolol Tartrate [Lopressor (beta edson)] 25 mg PO TID 05/29/18 Potassium Chloride 20 meq PO DAILY PRN 05/29/18 Primary Care Physician: Maximo Doctor,Out of [Primary Care Provider] - Please follow up with your Primary Care Physician in: 1-2 weeks Please Follow Up With: Cardiology When: as previously directed Please Follow Up With: Jase Mclain MD - Pulmonary medicine When: 2 weeks Disposition: Acute care Hospital Minutes spent on discharge:: 35 Patient Condition:: Stable Medical Necessity - Tobacco Use Smoking Status: Never smoker Meaningful Use Info Meaningful Use Diagnoses (Choose all that apply): None applicable <Sebastian Torres - Last Filed: 05/31/18 14:51> Discharge Date and Diagnosis - Primary Discharge Diagnosis Active and Suspected Problems Left moderate pleural effusion (Acute) - Secondary Discharge Diagnosis Chronic Problems History of mitral valve replacement (Chronic) History of maze procedure (Chronic) Pneumonia (Chronic) Hospital Course and Treatment Imaging Results: 05/31/18 11:50 Thoracentesis W US [US] Routine Summary of Care Provided: This patient was seen in conjunction with Joselito Montesinos PA-C . I have independently interviewed and examined the patient and reviewed pertinent historical, laboratory, and other data. Please refer to Joselito Montesinos PA-C note for details of this patient's presentation, findings, and recommendations. I have reviewed Joselito Montesinos PA-C note and concur with documented findings. In brief, patient is a 87-year-old lady with history of paroxysmal A. fib status post maze procedure, history of mitral valve prosthesis who presented with progressive of breath chest x-ray demonstrated left-sided pleural effusion Assessment: 1. Acute left-sided pleural effusion 2. Paroxysmal atrial fibrillation status post maze procedure 3. Mitral valve prosthesis 4. Obstructive sleep apnea 5. Essential hypertension 6. 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 Hospital course as described above by Joselito Montesinos - Physical Exam Vital Signs Temp Pulse Resp BP Pulse Ox 98.4 F 63 16 122/61 H 96 05/31/18 12:30 05/31/18 12:30 05/31/18 12:30 05/31/18 12:30 05/31/18 12:30 Oxygen Delivery Method Room Air Weight: 65.9 kg Body Mass Index (BMI) 26.7 Intake and Output for Last 24 Hours 05/29/18 05/30/18 05/31/18 23:59 23:59 23:59 Intake Total 705.5 / 705.5 240 / 240 Balance 705.5 / 705.5 240 / 240 Laboratory Tests Past 24 Hrs 05/30/18 05/31/18 05/31/18 20:30 02:30 05:55 WBC RBC Hgb Hct MCV MCH MCHC RDW RDW Differential Plt Count MPV Immature Gran % (Auto) Neut % (Auto) Lymph % (Auto) [place] % (Auto) Eos % (Auto) Baso % (Auto) Absolute Neuts (auto) Absolute Lymphs (auto) Total Counted PT 21.6 H INR 1.9 APTT 61.5 H 104.9 H* Sodium Potassium Chloride Carbon Dioxide Anion Gap BUN Creatinine Estim Creat Clear Calc Est GFR (MDRD) Af Amer Est GFR (MDRD) Non-Af BUN/Creatinine Ratio Glucose Calcium Lactate Dehydrogenase Total Protein Globulin Albumin/Globulin Ratio 05/31/18 05/31/18 05/31/18 05:55 05:55 12:15 WBC 4.3 L RBC 3.92 L Hgb 10.3 L Hct 34.1 L MCV 87.0 MCH 26.3 L MCHC 30.2 L RDW 15.0 H RDW Differential 47.3 H Plt Count 285 MPV 9.3 Immature Gran % (Auto) 0.200 Neut % (Auto) 56.0 Lymph % (Auto) 25.3 [place] % (Auto) 9.0 Eos % (Auto) 7.4 H Baso % (Auto) 2.1 H Absolute Neuts (auto) 2.4 Absolute Lymphs (auto) 1.10 Total Counted Not Reportable PT 23.1 H INR 2.0 APTT 35.2 Sodium 143 Potassium 3.4 L Chloride 106 Carbon Dioxide 26.0 Anion Gap 11 BUN 14 Creatinine 0.83 Estim Creat Clear Calc 44.19 Est GFR (MDRD) Af Amer 86 Est GFR (MDRD) Non-Af 71 BUN/Creatinine Ratio 16.9 Glucose 74 Calcium 8.5 Lactate Dehydrogenase 178 Total Protein 6.2 L Globulin 3.5 Albumin/Globulin Ratio 0.8 L Code Visit Inpatient E&M: 47936 Disch Hosp
--- NOTE | 2018-05-31 13:19 | DS.PCM_ITS ---
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 Consults: Cardiology - [facility] Pulmonology Randy Operations: None Procedures: None Summary of Care Provided: Hospital course: The patient is a 77 year old F with a pmhx of Afib with Maze procedure done last March which at time a mitral valve prosthesis was also placed ([facility]), and also with a cardioversion that was performed last week at [facility] (Dr. Perez), also with a hx of recent pneumonia, TRISH, and HTN, who presented to the ER with c/o SOB and LE edema. She had a moderate sized left pleural effusion on CXR, and an elevated BNP. She was admitted and placed on IV lasix with a pulmonary medicine consult. We planned to perform a thoracentesis for diagnostic purposes, however while here she developed an episode of torsades de pointe. At presentation her amiodarone was cut back to daily for a prolonged QT interval. She was administered potassium and mag. Cardiology came to evaluate the patient and felt that she should be evaluated by an wallpaper remover steam, and called Dr. Perez at [facility] - she was accepted under his care and will be transferred to there ICU. While here she diuresed well with lasix and had significant improvement in her SOB and LE edema. She was transferred in stable condition. This patient was seen by Joselito Montesinos PA-C under the supervision of Doctor Brian. [] Patient Problems: Active and Suspected Problems Left moderate pleural effusion (Acute) - Physical Exam General: Alert, Oriented x3, Cooperative HEENT: Atraumatic, PERRLA, EOMI, Normocephalic Neck: Supple, No JVD, Negative Carotid Bruits Lungs: Rales Cardiovascular: Regular rate, No murmurs Abdomen: Bowel Sounds Present, Soft, Non Tender Extremities: No edema, Capillary Refill Less than 3 Seconds Skin: No rashes, No breakdown Musculoskeletal: No Tenderness to Palpation of Joints or Extremities Neurological: Cranial nerves II-XII grossly intact Psych/Mental Status: Normal Affect, Appropriate Vital Signs Temp Pulse Resp BP Pulse Ox 98.4 F 63 16 122/61 H 96 05/31/18 12:30 05/31/18 12:30 05/31/18 12:30 05/31/18 12:30 05/31/18 12:30 Oxygen Delivery Method Room Air Weight: 145 lb 4.554 oz Body Mass Index (BMI) 26.7 Intake and Output for Last 24 Hours 05/29/18 05/30/18 05/31/18 23:59 23:59 23:59 Intake Total 705.5 / 705.5 240 / 240 Balance 705.5 / 705.5 240 / 240 Laboratory Tests Past 24 Hrs 05/30/18 05/31/18 05/31/18 20:30 02:30 05:55 WBC RBC Hgb Hct MCV MCH MCHC RDW RDW Differential Plt Count MPV Immature Gran % (Auto) Neut % (Auto) Lymph % (Auto) [place] % (Auto) Eos % (Auto) Baso % (Auto) Absolute Neuts (auto) Absolute Lymphs (auto) Total Counted PT 21.6 H INR 1.9 APTT 61.5 H 104.9 H* Sodium Potassium Chloride Carbon Dioxide Anion Gap BUN Creatinine Estim Creat Clear Calc Est GFR (MDRD) Af Amer Est GFR (MDRD) Non-Af BUN/Creatinine Ratio Glucose Calcium Lactate Dehydrogenase Total Protein Globulin Albumin/Globulin Ratio 05/31/18 05/31/18 05/31/18 05:55 05:55 12:15 WBC 4.3 L RBC 3.92 L Hgb 10.3 L Hct 34.1 L MCV 87.0 MCH 26.3 L MCHC 30.2 L RDW 15.0 H RDW Differential 47.3 H Plt Count 285 MPV 9.3 Immature Gran % (Auto) 0.200 Neut % (Auto) 56.0 Lymph % (Auto) 25.3 [place] % (Auto) 9.0 Eos % (Auto) 7.4 H Baso % (Auto) 2.1 H Absolute Neuts (auto) 2.4 Absolute Lymphs (auto) 1.10 Total Counted Not Reportable PT 23.1 H INR 2.0 APTT 35.2 Sodium 143 Potassium 3.4 L Chloride 106 Carbon Dioxide 26.0 Anion Gap 11 BUN 14 Creatinine 0.83 Estim Creat Clear Calc 44.19 Est GFR (MDRD) Af Amer 86 Est GFR (MDRD) Non-Af 71 BUN/Creatinine Ratio 16.9 Glucose 74 Calcium 8.5 Lactate Dehydrogenase 178 Total Protein 6.2 L Globulin 3.5 Albumin/Globulin Ratio 0.8 L Discharge Diet: - - As directed by receiving facility Discharge Activity: - - As directed by receiving facility Home Medications: Medications to take at Discharge Acetaminophen 650 mg PO Q4H PRN 05/21/18 Albuterol IH (ProAir) [Proair Hfa] 2 puff INHALATION Q6H PRN PRN 05/21/18 Alendronate Sodium [Fosamax] 70 mg PO QWEEK 05/21/18 Amiodarone HCl 200 mg PO TID 05/21/18 Ascorbic Acid [Vitamin C] 500 mg PO BID 05/21/18 Aspirin [Aspirin, Baby] 81 mg PO DAILY@0800 05/21/18 Atorvastatin Calcium 10 mg PO DAILY 05/21/18 Biotin/Silicon Diox/l-Cysteine [[place] Matrix 5000 ER Tablet] 1 each PO DAILY 05/21/18 [place]/D3/Mag11/Zinc/Tire Mold Engraver/Papito/Bor [Caltrate 600+D Plus Tablet] 1 each PO DAILY 05/21/18 Cholecalciferol (VIT D3) [Vitamin D3] 1,000 unit PO DAILY 05/21/18 Cholestyramine (with Sugar) [Questran Packet] 4 gm PO DAILY 05/21/18 Cyanocobalamin (Vitamin B-12) [Vitamin B-12] 1,000 mcg SL DAILY 05/21/18 Ferrous Sulfate 325 mg PO BIDCM 05/21/18 Gabapentin [Neurontin] 200 mg PO QHS 05/21/18 Melatonin 3 mg PO QHS PRN PRN 05/21/18 Multivitamin [Multivitamins] 1 each PO DAILY 05/21/18 Pramipexole Di-HCl [Pramipexole Dihydrochloride] 0.25 mg PO QHS 05/21/18 Warfarin [Coumadin] 0.5 mg PO MOFR 05/21/18 Cyclobenzaprine [Flexeril] 5 mg PO BID PRN 05/29/18 Furosemide [Lasix] 20 mg PO DAILY PRN 05/29/18 Metoprolol Tartrate [Lopressor (beta edson)] 25 mg PO TID 05/29/18 Potassium Chloride 20 meq PO DAILY PRN 05/29/18 Primary Care Physician: Maximo Doctor,Out of [Primary Care Provider] - Please follow up with your Primary Care Physician in: 1-2 weeks Please Follow Up With: Cardiology When: as previously directed Please Follow Up With: Jase Mclain MD - Pulmonary medicine When: 2 weeks Disposition: Acute care Hospital Minutes spent on discharge:: 35 Patient Condition:: Stable Medical Necessity - Tobacco Use Smoking Status: Never smoker Meaningful Use Info Meaningful Use Diagnoses (Choose all that apply): None applicable <Sebastian Torres - Last Filed: 05/31/18 14:51> Discharge Date and Diagnosis - Primary Discharge Diagnosis Active and Suspected Problems Left moderate pleural effusion (Acute) - Secondary Discharge Diagnosis Chronic Problems History of mitral valve replacement (Chronic) History of maze procedure (Chronic) Pneumonia (Chronic) Hospital Course and Treatment Imaging Results: 05/31/18 11:50 Thoracentesis W US [US] Routine Summary of Care Provided: This patient was seen in conjunction with Joselito Montesinos PA-C . I have independently interviewed and examined the patient and reviewed pertinent historical, laboratory, and other data. Please refer to Joselito Montesinos PA-C note for details of this patient's presentation, findings, and recommendations. I have reviewed Joselito Montesinos PA-C note and concur with documented findings. In brief, patient is a 87-year-old lady with history of paroxysmal A. fib status post maze procedure, history of mitral valve prosthesis who presented with progressive of breath chest x-ray demonstrated left-sided pleural effusion Assessment: 1. Acute left-sided pleural effusion 2. Paroxysmal atrial fibrillation status post maze procedure 3. Mitral valve prosthesis 4. Obstructive sleep apnea 5. Essential hypertension 6. 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 Hospital course as described above by Joselito Montesinos - Physical Exam Vital Signs Temp Pulse Resp BP Pulse Ox 98.4 F 63 16 122/61 H 96 05/31/18 12:30 05/31/18 12:30 05/31/18 12:30 05/31/18 12:30 05/31/18 12:30 Oxygen Delivery Method Room Air Weight: 65.9 kg Body Mass Index (BMI) 26.7 Intake and Output for Last 24 Hours 05/29/18 05/30/18 05/31/18 23:59 23:59 23:59 Intake Total 705.5 / 705.5 240 / 240 Balance 705.5 / 705.5 240 / 240 Laboratory Tests Past 24 Hrs 05/30/18 05/31/18 05/31/18 20:30 02:30 05:55 WBC RBC Hgb Hct MCV MCH MCHC RDW RDW Differential Plt Count MPV Immature Gran % (Auto) Neut % (Auto) Lymph % (Auto) [place] % (Auto) Eos % (Auto) Baso % (Auto) Absolute Neuts (auto) Absolute Lymphs (auto) Total Counted PT 21.6 H INR 1.9 APTT 61.5 H 104.9 H* Sodium Potassium Chloride Carbon Dioxide Anion Gap BUN Creatinine Estim Creat Clear Calc Est GFR (MDRD) Af Amer Est GFR (MDRD) Non-Af BUN/Creatinine Ratio Glucose Calcium Lactate Dehydrogenase Total Protein Globulin Albumin/Globulin Ratio 05/31/18 05/31/18 05/31/18 05:55 05:55 12:15 WBC 4.3 L RBC 3.92 L Hgb 10.3 L Hct 34.1 L MCV 87.0 MCH 26.3 L MCHC 30.2 L RDW 15.0 H RDW Differential 47.3 H Plt Count 285 MPV 9.3 Immature Gran % (Auto) 0.200 Neut % (Auto) 56.0 Lymph % (Auto) 25.3 [place] % (Auto) 9.0 Eos % (Auto) 7.4 H Baso % (Auto) 2.1 H Absolute Neuts (auto) 2.4 Absolute Lymphs (auto) 1.10 Total Counted Not Reportable PT 23.1 H INR 2.0 APTT 35.2 Sodium 143 Potassium 3.4 L Chloride 106 Carbon Dioxide 26.0 Anion Gap 11 BUN 14 Creatinine 0.83 Estim Creat Clear Calc 44.19 Est GFR (MDRD) Af Amer 86 Est GFR (MDRD) Non-Af 71 BUN/Creatinine Ratio 16.9 Glucose 74 Calcium 8.5 Lactate Dehydrogenase 178 Total Protein 6.2 L Globulin 3.5 Albumin/Globulin Ratio 0.8 L Code Visit Inpatient E&M: [id number] Disch Hosp
--- NOTE | 2018-05-31 13:55 | PCM.CONS.C ---
Reason for Consult Date of Consultation: 05/31/18 Reason for Consultation: Shortness of breath and abnormal cardiac rhythm History of Present Illness: The patient is a 77 year old F who was recently seen in this hospital with a history of mitral valve replacement, Maze procedure for atrial fibrillation, left atrial appendage ligation, and no obstructive coronary disease. She had on that admission noted to be in atrial fibrillation with rapid ventricular response rate. She had her beta-edson increased as well as diltiazem added and continued her anticoagulation. She also was on amiodarone. She was transferred back to her primary food service in [place] who performed a MEERA guided cardioversion successfully. She had her diltiazem dose reduced, her beta-edson was continued and her amiodarone continued. She presented to the emergency room here with shortness of breath. She was noted to have a left pleural effusion. While on telemetry floor she was noted to be mildly hypokalemic and also developed torsade de pointes with a prolonged QT interval. Cardiology was called to see the patient today. She is doing well with no chest pain or shortness of breath or paroxysmal nocturnal dyspnea or pedal edema. [] Past Medical History Allergies/Adverse Reactions: Allergies No Known Allergies Allergy (Verified 05/29/18 19:49) Home Medications: Ambulatory Orders Medication Instructions Recorded Acetaminophen 650 mg PO Q4H PRN 05/21/18 Albuterol IH (ProAir) [Proair Hfa] 2 puff INHALATION Q6H PRN PRN 05/21/18 Alendronate Sodium [Fosamax] 70 mg PO QWEEK 05/21/18 Amiodarone HCl 200 mg PO TID 05/21/18 Ascorbic Acid [Vitamin C] 500 mg PO BID 05/21/18 Aspirin [Aspirin, Baby] 81 mg PO DAILY@0800 05/21/18 Atorvastatin Calcium 10 mg PO DAILY 05/21/18 Biotin/Silicon Diox/l-Cysteine 1 each PO DAILY 05/21/18 [[place] Matrix 5000 ER Tablet] Ishaan/D3/Mag11/Zinc/Redye Hand/Papito/Bor 1 each PO DAILY 05/21/18 [Caltrate 600+D Plus Tablet] Cholecalciferol (VIT D3) [Vitamin 1,000 unit PO DAILY 05/21/18 D3] Cholestyramine (with Sugar) 4 gm PO DAILY 05/21/18 [Questran Packet] Cyanocobalamin (Vitamin B-12) 1,000 mcg SL DAILY 05/21/18 [Vitamin B-12] Ferrous Sulfate 325 mg PO BIDCM 05/21/18 Gabapentin [Neurontin] 200 mg PO QHS 05/21/18 Melatonin 3 mg PO QHS PRN PRN 05/21/18 Multivitamin [Multivitamins] 1 each PO DAILY 05/21/18 Pramipexole Di-HCl [Pramipexole 0.25 mg PO QHS 05/21/18 Dihydrochloride] Warfarin [Coumadin] 0.5 mg PO MOFR 05/21/18 Cyclobenzaprine [Flexeril] 5 mg PO BID PRN 05/29/18 Furosemide [Lasix] 20 mg PO DAILY PRN 05/29/18 Metoprolol Tartrate [Lopressor 25 mg PO TID 05/29/18 (beta edson)] Potassium Chloride 20 meq PO DAILY PRN 05/29/18 Past Medical History (Chronic Problems): Chronic Problems History of mitral valve replacement (Chronic) History of maze procedure (Chronic) Pneumonia (Chronic) Surgical History: - - mitral valve replacement with left atrial appendage ligation and maze procedure - *Family History Maternal History Items: No pertinent history Smoking Status: Never smoker Alcohol: None Drugs: None Review of Systems - Review of Systems General: Reports: Fatigue. Denies: Fever, Night Sweats HEENT: Denies: Vision Change Cardiovascular: Reports: Shortness of Breath, Shortness of Breath at Rest. Denies: Chest Discomfort, Orthopnea, PND, Peripheral Edema, Palpitations, Lightheadedness, Dizziness, Near Syncope, Syncope Respiratory: Denies: Cough, Sputum Production, Hemoptysis Gastrointestinal: Denies: Hematemesis, Hematochezia, Melena Genitourinary: Denies: Dysuria, Hematuria Muscoloskeletal: Denies: Myalgias Skin: Denies: Rash Neurological: Denies: Dizziness Psychiatric: Denies: Anxiety Endocrine: Denies: Heat Intolerance Hematologic/ Lymphatic: Denies: Anemia Subjectve: Pleasant lady in no apparent distress Objective: Vital Signs Temp Pulse Resp BP Pulse Ox 98.4 F 63 16 122/61 H 96 05/31/18 12:30 05/31/18 12:30 05/31/18 12:30 05/31/18 12:30 05/31/18 12:30 Oxygen Delivery Method Room Air Weight: 145 lb 4.554 oz Body Mass Index (BMI) 26.7 Intake and Output for Last 24 Hours 05/29/18 05/30/18 05/31/18 23:59 23:59 23:59 Intake Total 705.5 / 705.5 240 / 240 Balance 705.5 / 705.5 240 / 240 General: Awake, Alert, Oriented x 3 HEENT: PERRL, EOMI, Sclera Non Icteric Neck: Supple, Good ROM, No Lymph Node Enlargement Lungs: Diminished Left Base Cardiovascular: Regular Rhythm, Normal S1, Normal S2, No Murmurs, No Rubs, No Gallops Vascular: No Carotid Bruits, Normal Femoral Pulses, Normal Radial Pulses, Normal Dorsalis Pedal Pulse, Normal Posterior Tibial Pulses Abdomen: Bowel Sounds Present, Soft, Non Tender, No HSM, No Organomegaly Extremities: No Cyanosis, No Clubbing, No edema Musculoskeletal: No Erythema Skin: No Rashes Neurological: No Focal Motor or Sensory Deficit 05/30/18 20:30: APTT 61.5 H 05/31/18 02:30: APTT 104.9 H* 05/31/18 05:55: PT 21.6 H, INR 1.9 05/31/18 05:55: Sodium 143, Potassium 3.4 L, Chloride 106, Carbon Dioxide 26.0, Anion Gap 11, BUN 14, Creatinine 0.83, Est GFR (MDRD) Af Amer 86, Est GFR (MDRD) Non-Af 71, BUN/Creatinine Ratio 16.9, Glucose 74, Calcium 8.5 05/31/18 05:55: WBC 4.3 L, RBC 3.92 L, Hgb 10.3 L, Hct 34.1 L, MCV 87.0, MCH 26.3 L, MCHC 30.2 L, RDW 15.0 H, RDW Differential 47.3 H, Plt Count 285, MPV 9.3, Immature Gran % (Auto) 0.200, Neut % (Auto) 56.0, Lymph % (Auto) 25.3, [place] % (Auto) 9.0, Eos % (Auto) 7.4 H, Baso % (Auto) 2.1 H, Absolute Neuts (auto) 2.4, Total Counted Not Reportable 05/31/18 12:15: PT 23.1 H, INR 2.0, APTT 35.2 Rhythm: EKG: Normal sinus rhythm with a QT interval of 570 ms and T wave inversions noted in V2 and V3 and a rate of 58 bpm Assessment/Plan 1. Torsade de pointes The patient presents with shortness of breath and during telemetry monitoring is noted to be in torsades de pointes. Her potassium was noted to be mildly reduced and she is on amiodarone. With her prolonged QT interval the above is likely an amiodarone effect. At this juncture it may be helpful to discuss this further with biometrician. Her potassium should be replaced to a minimum of 4.0 and magnesium replaced to a minimum of 2.0. I discussed this further with her primary food service in [place] and it was felt that the best decision would be to transfer her there for electrophysiology input. 2. History of atrial fibrillation Patient was recently converted to sinus rhythm which she is maintaining on the amiodarone and beta-edson. Will continue with anticoagulation. 3. Left pleural effusion Patient has left pleural effusion likely secondary to fluid overload. The above should likely be approached with a thoracentesis. I do not think that oral or intravenous diuresis would improve this. 4. Mitral valve replacement She is status post mitral valve replacement. Her last echocardiogram appeared to demonstrate stability of the above. No major changes would be made. Thank you for allowing me to participate in the care of your patient. Please don't hesitate to call if any issues arise
--- NOTE | 2018-05-31 14:03 | CON.PCM_ITS ---
Reason for Consult Date of Consultation: 05/31/18 Reason for Consultation: Shortness of breath and abnormal cardiac rhythm History of Present Illness: The patient is a 77 year old F who was recently seen in this hospital with a history of mitral valve replacement, Maze procedure for atrial fibrillation, left atrial appendage ligation, and no obstructive coronary disease. She had on that admission noted to be in atrial fibrillation with rapid ventricular response rate. She had her beta-edson increased as well as diltiazem added and continued her anticoagulation. She also was on amiodarone. 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 She had her diltiazem dose reduced, her beta- edson was continued and her amiodarone continued. She presented to the emergency room here with shortness of breath. She was noted to have a left pleural effusion. While on telemetry floor she was noted to be mildly hypokalemic and also developed torsade de pointes with a prolonged QT interval. Cardiology was called to see the patient today. She is doing well with no chest pain or shortness of breath or paroxysmal nocturnal dyspnea or pedal edema. [] Past Medical History Allergies/Adverse Reactions: Allergies No Known Allergies Allergy (Verified 05/29/18 19:49) Home Medications: Ambulatory Orders Medication Instructions Recorded Acetaminophen 650 mg PO Q4H PRN 05/21/18 Albuterol IH (ProAir) [Proair Hfa] 2 puff INHALATION Q6H PRN PRN 05/21/18 Alendronate Sodium [Fosamax] 70 mg PO QWEEK 05/21/18 Amiodarone HCl 200 mg PO TID 05/21/18 Ascorbic Acid [Vitamin C] 500 mg PO BID 05/21/18 Aspirin [Aspirin, Baby] 81 mg PO DAILY@0800 05/21/18 Atorvastatin Calcium 10 mg PO DAILY 05/21/18 Biotin/Silicon Diox/l-Cysteine 1 each PO DAILY 05/21/18 [[place] Matrix 5000 ER Tablet] [place]/D3/Mag11/Zinc/Small Craft Operator/Papito/Bor 1 each PO DAILY 05/21/18 [Caltrate 600+D Plus Tablet] Cholecalciferol (VIT D3) [Vitamin 1,000 unit PO DAILY 05/21/18 D3] Cholestyramine (with Sugar) 4 gm PO DAILY 05/21/18 [Questran Packet] Cyanocobalamin (Vitamin B-12) 1,000 mcg SL DAILY 05/21/18 [Vitamin B-12] Ferrous Sulfate 325 mg PO BIDCM 05/21/18 Gabapentin [Neurontin] 200 mg PO QHS 05/21/18 Melatonin 3 mg PO QHS PRN PRN 05/21/18 Multivitamin [Multivitamins] 1 each PO DAILY 05/21/18 Pramipexole Di-HCl [Pramipexole 0.25 mg PO QHS 05/21/18 Dihydrochloride] Warfarin [Coumadin] 0.5 mg PO MOFR 05/21/18 Cyclobenzaprine [Flexeril] 5 mg PO BID PRN 05/29/18 Furosemide [Lasix] 20 mg PO DAILY PRN 05/29/18 Metoprolol Tartrate [Lopressor 25 mg PO TID 05/29/18 (beta edson)] Potassium Chloride 20 meq PO DAILY PRN 05/29/18 Past Medical History (Chronic Problems): Chronic Problems History of mitral valve replacement (Chronic) History of maze procedure (Chronic) Pneumonia (Chronic) Surgical History: - - mitral valve replacement with left atrial appendage ligation and maze procedure - *Family History Maternal History Items: No pertinent history Smoking Status: Never smoker Alcohol: None Drugs: None Review of Systems - Review of Systems General: Reports: Fatigue. Denies: Fever, Night Sweats HEENT: Denies: Vision Change Cardiovascular: Reports: Shortness of Breath, Shortness of Breath at Rest. Denies: Chest Discomfort, Orthopnea, PND, Peripheral Edema, Palpitations, Lightheadedness, Dizziness, Near Syncope, Syncope Respiratory: Denies: Cough, Sputum Production, Hemoptysis Gastrointestinal: Denies: Hematemesis, Hematochezia, Melena Genitourinary: Denies: Dysuria, Hematuria Muscoloskeletal: Denies: Myalgias Skin: Denies: Rash Neurological: Denies: Dizziness Psychiatric: Denies: Anxiety Endocrine: Denies: Heat Intolerance Hematologic/ Lymphatic: Denies: Anemia Subjectve: Pleasant lady in no apparent distress Objective: Vital Signs Temp Pulse Resp BP Pulse Ox 98.4 F 63 16 122/61 H 96 05/31/18 12:30 05/31/18 12:30 05/31/18 12:30 05/31/18 12:30 05/31/18 12:30 Oxygen Delivery Method Room Air Weight: 145 lb 4.554 oz Body Mass Index (BMI) 26.7 Intake and Output for Last 24 Hours 05/29/18 05/30/18 05/31/18 23:59 23:59 23:59 Intake Total 705.5 / 705.5 240 / 240 Balance 705.5 / 705.5 240 / 240 General: Awake, Alert, Oriented x 3 HEENT: PERRL, EOMI, Sclera Non Icteric Neck: Supple, Good ROM, No Lymph Node Enlargement Lungs: Diminished Left Base Cardiovascular: Regular Rhythm, Normal S1, Normal S2, No Murmurs, No Rubs, No Gallops Vascular: No Carotid Bruits, Normal Femoral Pulses, Normal Radial Pulses, Normal Dorsalis Pedal Pulse, Normal Posterior Tibial Pulses Abdomen: Bowel Sounds Present, Soft, Non Tender, No HSM, No Organomegaly Extremities: No Cyanosis, No Clubbing, No edema Musculoskeletal: No Erythema Skin: No Rashes Neurological: No Focal Motor or Sensory Deficit 05/30/18 20:30: APTT 61.5 H 05/31/18 02:30: APTT 104.9 H* 05/31/18 05:55: PT 21.6 H, INR 1.9 05/31/18 05:55: Sodium 143, Potassium 3.4 L, Chloride 106, Carbon Dioxide 26.0, Anion Gap 11, BUN 14, Creatinine 0.83, Est GFR (MDRD) Af Amer 86, Est GFR (MDRD) Non-Af 71, BUN/Creatinine Ratio 16.9, Glucose 74, Calcium 8.5 05/31/18 05:55: WBC 4.3 L, RBC 3.92 L, Hgb 10.3 L, Hct 34.1 L, MCV 87.0, MCH 26.3 L, MCHC 30.2 L, RDW 15.0 H, RDW Differential 47.3 H, Plt Count 285, MPV 9.3, Immature Gran % (Auto) 0.200, Neut % (Auto) 56.0, Lymph % (Auto) 25.3, [place] % (Auto) 9.0, Eos % (Auto) 7.4 H, Baso % (Auto) 2.1 H, Absolute Neuts (auto) 2.4, Total Counted Not Reportable 05/31/18 12:15: PT 23.1 H, INR 2.0, APTT 35.2 Rhythm: EKG: Normal sinus rhythm with a QT interval of 570 ms and T wave inversions noted in V2 and V3 and a rate of 58 bpm Assessment/Plan 1. Torsade de pointes * The patient presents with shortness of breath and during telemetry monitoring is noted to be in torsades de pointes. Her potassium was noted to be mildly reduced and she is on amiodarone. With her prolonged QT interval the above is likely an amiodarone effect. At this juncture it may be helpful to discuss this further with practice architect. Her potassium should be replaced to a minimum of 4.0 and magnesium replaced to a minimum of 2.0. 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 * 2. History of atrial fibrillation * Patient was recently converted to sinus rhythm which she is maintaining on the amiodarone and beta-edson. * Will continue with anticoagulation. * 3. Left pleural effusion * Patient has left pleural effusion likely secondary to fluid overload. The above should likely be approached with a thoracentesis. I do not think that oral or intravenous diuresis would improve this. * 4. Mitral valve replacement * She is status post mitral valve replacement. Her last echocardiogram appeared to demonstrate stability of the above. No major changes would be made. * * Thank you for allowing me to participate in the care of your patient. Please don't hesitate to call if any issues arise
--- NOTE | 2018-05-31 15:24 | NURSING ---
Pt to be transferred to [facility], report called to Fatemeh NARANJO. Consent signed and on the chart. Awaiting transport.
[2018-05-31] MEDS: Metoprolol Tartrate 25 MG Tablet PO (16:25)
--- NOTE | 2018-05-31 17:15 | NURSING ---
Pt transferred to [facility] per squad. Pt on Heparin gtt at 7ml/hr in LAC.
== END 2018-05-31 16:48 | disposition short-term general hospital (02) | DRG 188 ==
LOC: ED 20:16 → PCU 22:08
PROVIDERS: Family Medicine; Internal Medicine Critical Care Medicine; Physician Assistant; Admitting Provider Internal Medicine; Emergency Provider Emergency Medicine; Visit Provider Internal Medicine
DX: J90 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, not elsewhere classified (principal); G47.33 Obstructive sleep apnea (adult) (pediatric); I48.91 Unspecified atrial fibrillation; E87.6 Hypokalemia; I10 Essential (primary) hypertension; I45.81 Long QT syndrome; M81.0 Age-related osteoporosis without current pathological fracture; E78.5 Hyperlipidemia, unspecified; Z79.01 Long term (current) use of 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s; Z95.3 Presence of xenogenic heart valve
CPT/HCPCS: 36415; 71045; 80048; 83615; 83735; 83880; 84156; 84484; 85025; 85610; 85730; 93005; 99285; A4216; J1940

== ENCOUNTER 2018-07-28 08:21 | Outpatient (RCR) | payer MEDICARE, SELFPAY ==
[2018-05-29 23:30] VITALS: BMI 26.7
[2018-07-08 07:13] LABS: Prothrombin Time Fingerstick 24.5 SEC (11.9-14.4)
[2018-07-15 08:22] LABS: Prothrombin Time Fingerstick 19.5 SEC (11.9-14.4)
[2018-07-26 08:25] LABS: Prothrombin Time Fingerstick 18.3 SEC (11.9-14.4)
== END 2018-07-28 09:21 | disposition home or self-care (01) ==
LOC: LAB 08:21
PROVIDERS: Referring Provider Internal Medicine Cardiovascular Disease; Visit Provider Internal Medicine Cardiovascular Disease
DX: I48.0 Paroxysmal atrial fibrillation (principal); Z79.01 Long term (current) use of 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s
CPT/HCPCS: 36416; 85610

== ENCOUNTER 2018-08-25 08:31 | Outpatient (RCR) | payer MEDICARE, SELFPAY ==
[2018-05-29 23:30] VITALS: BMI 26.7
[2018-08-04 08:40] LABS: Prothrombin Time Fingerstick 18.4 SEC (11.9-14.4)
[2018-08-11 07:51] LABS: Prothrombin Time Fingerstick 17.8 SEC (11.9-14.4)
[2018-08-18 10:26] LABS: Prothrombin Time Fingerstick 16.9 SEC (11.9-14.4)
[2018-08-25 08:46] LABS: Prothrombin Time Fingerstick 34.8 SEC (11.9-14.4)
== END 2018-08-31 16:00 | disposition home or self-care (01) ==
LOC: LAB 08:31
PROVIDERS: Referring Provider Internal Medicine Cardiovascular Disease; Visit Provider Internal Medicine Cardiovascular Disease
DX: I48.0 Paroxysmal atrial fibrillation (principal); Z79.01 Long term (current) use of 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s
CPT/HCPCS: 36416; 85610

== ENCOUNTER 2018-11-29 11:26 | Outpatient (RCR) | payer MEDICARE, SELFPAY ==
[2018-05-29 23:30] VITALS: BMI 26.7
[2018-11-12 09:51] LABS: Prothrombin Time Fingerstick 19.9 SEC (11.9-14.4)
[2018-11-19 08:46] LABS: Prothrombin Time Fingerstick 20.8 SEC (11.9-14.4)
[2018-11-25 15:16] LABS: Prothrombin Time Fingerstick 31.3 SEC (11.9-14.4)
[2018-11-29 11:35] LABS: Prothrombin Time Fingerstick 33.6 SEC (11.9-14.4)
== END 2018-12-01 16:23 | disposition home or self-care (01) ==
LOC: LAB 11:26
PROVIDERS: Referring Provider Internal Medicine Cardiovascular Disease; Visit Provider Internal Medicine Cardiovascular Disease
DX: I48.0 Paroxysmal atrial fibrillation (principal); Z79.01 Long term (current) use of 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s
CPT/HCPCS: 36416; 85610

== ENCOUNTER 2018-12-27 14:13 | Outpatient (RCR) | payer MEDICARE, SELFPAY ==
[2018-05-29 23:30] VITALS: BMI 26.7
[2018-12-06 12:52] LABS: Prothrombin Time (Protime)PT. 38.4 SECONDS (11.7-14.9)
[2018-12-06 13:07] LABS: International Normalized Ratio 3.9
[2018-12-06 15:09] LABS: Prothrombin Time Fingerstick 43.7 SEC (11.9-14.4)
[2018-12-14 09:07] LABS: Prothrombin Time Fingerstick 29.4 SEC (11.9-14.4)
[2018-12-28 11:16] LABS: Prothrombin Time Fingerstick 22.8 SEC (11.9-14.4)
== END 2018-12-27 15:13 | disposition home or self-care (01) ==
LOC: LAB 14:13
PROVIDERS: Referring Provider Internal Medicine Cardiovascular Disease; Visit Provider Internal Medicine Cardiovascular Disease
DX: I48.0 Paroxysmal atrial fibrillation (principal); Z79.01 Long term (current) use of 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s
CPT/HCPCS: 36415; 36416; 85610

== ENCOUNTER 2019-01-24 10:38 | Outpatient (RCR) | payer MEDICARE, SELFPAY ==
[2018-05-29 23:30] VITALS: BMI 26.7
[2019-01-10 10:01] LABS: Prothrombin Time Fingerstick 20.3 SEC (11.9-14.4)
[2019-01-24 11:00] LABS: Prothrombin Time Fingerstick 30.7 SEC (11.9-14.4)
== END 2019-01-24 12:00 | disposition home or self-care (01) ==
LOC: LAB 10:38
PROVIDERS: Referring Provider Internal Medicine Cardiovascular Disease; Visit Provider Internal Medicine Cardiovascular Disease
DX: I48.0 Paroxysmal atrial fibrillation (principal); Z79.01 Long term (current) use of 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s
CPT/HCPCS: 36416; 85610

== ENCOUNTER 2019-02-28 10:25 | Outpatient (RCR) | payer MEDICARE, SELFPAY ==
[2018-05-29 23:30] VITALS: BMI 26.7
[2019-02-14 13:21] LABS: Prothrombin Time Fingerstick 22.8 SEC (11.9-14.4)
[2019-02-28 11:13] LABS: Prothrombin Time Fingerstick 25.3 SEC (11.9-14.4)
== END 2019-02-28 18:00 | disposition home or self-care (01) ==
LOC: LAB 10:25
PROVIDERS: Referring Provider Internal Medicine Cardiovascular Disease; Visit Provider Internal Medicine Cardiovascular Disease
DX: I48.0 Paroxysmal atrial fibrillation (principal); Z79.01 Long term (current) use of 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s
CPT/HCPCS: 36416; 85610

== ENCOUNTER 2019-03-21 08:53 | Outpatient (RCR) | payer MEDICARE, SELFPAY ==
[2018-05-29 23:30] VITALS: BMI 26.7
[2019-03-22 07:36] LABS: Prothrombin Time Fingerstick 25.1 SEC (11.9-14.4)
== END 2019-03-21 18:00 | disposition home or self-care (01) ==
LOC: LAB 08:53
PROVIDERS: Referring Provider Internal Medicine Cardiovascular Disease; Visit Provider Internal Medicine Cardiovascular Disease
DX: I48.0 Paroxysmal atrial fibrillation (principal); Z79.01 Long term (current) use of 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s
CPT/HCPCS: 36416; 85610

== ENCOUNTER 2019-04-19 09:13 | Outpatient (RCR) | payer MEDICARE, SELFPAY ==
[2018-05-29 23:30] VITALS: BMI 26.7
[2019-04-19 12:11] LABS: Prothrombin Time Fingerstick 22.4 SEC (11.9-14.4)
== END 2019-04-19 18:00 | disposition home or self-care (01) ==
LOC: LAB 09:13
PROVIDERS: Referring Provider Internal Medicine Cardiovascular Disease; Visit Provider Internal Medicine Cardiovascular Disease
DX: I48.0 Paroxysmal atrial fibrillation (principal); Z79.01 Long term (current) use of 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s
CPT/HCPCS: 36416; 85610

== ENCOUNTER 2019-05-17 09:43 | Outpatient (RCR) | payer MEDICARE, SELFPAY ==
[2018-05-29 23:30] VITALS: BMI 26.7
[2019-05-10 17:00] LABS: Prothrombin Time Fingerstick 20.9 SEC (11.9-14.4)
[2019-05-17 09:56] LABS: Prothrombin Time Fingerstick 26.9 SEC (11.9-14.4)
== END 2019-05-17 18:00 | disposition home or self-care (01) ==
LOC: LAB 09:43
PROVIDERS: Referring Provider Internal Medicine Cardiovascular Disease; Visit Provider Internal Medicine Cardiovascular Disease
DX: I48.0 Paroxysmal atrial fibrillation (principal); Z79.01 Long term (current) use of 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s
CPT/HCPCS: 36416; 85610

== ENCOUNTER 2019-06-14 09:45 | Outpatient (RCR) | payer MEDICARE, SELFPAY ==
[2018-05-29 23:30] VITALS: BMI 26.7
[2019-06-14 10:01] LABS: Prothrombin Time Fingerstick 24.1 SEC (11.9-14.4)
== END 2019-06-14 18:00 | disposition home or self-care (01) ==
LOC: LAB 09:45
PROVIDERS: Referring Provider Internal Medicine Cardiovascular Disease; Visit Provider Internal Medicine Cardiovascular Disease
DX: I48.0 Paroxysmal atrial fibrillation (principal); Z79.01 Long term (current) use of 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s
CPT/HCPCS: 36416; 85610

== ENCOUNTER 2019-07-11 11:40 | Outpatient (RCR) | payer MEDICARE, SELFPAY ==
[2018-05-29 23:30] VITALS: BMI 26.7
[2019-07-11 11:51] LABS: Prothrombin Time Fingerstick 26.2 SEC (11.9-14.4)
== END 2019-07-11 18:00 | disposition home or self-care (01) ==
LOC: LAB 11:40
PROVIDERS: Referring Provider Internal Medicine Cardiovascular Disease; Visit Provider Internal Medicine Cardiovascular Disease
DX: I48.0 Paroxysmal atrial fibrillation (principal); Z79.01 Long term (current) use of 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s
CPT/HCPCS: 36416; 85610

== ENCOUNTER 2019-09-20 09:17 | Outpatient (RCR) | payer MEDICARE, SELFPAY ==
[2018-05-29 23:30] VITALS: BMI 26.7
[2019-09-06 09:26] LABS: Prothrombin Time Fingerstick 19.4 SEC (11.9-14.4)
[2019-09-20 09:26] LABS: Prothrombin Time Fingerstick 22.6 SEC (11.9-14.4)
== END 2019-09-20 18:00 | disposition home or self-care (01) ==
LOC: LAB 09:17
PROVIDERS: Referring Provider Internal Medicine Cardiovascular Disease; Visit Provider Internal Medicine Cardiovascular Disease
DX: I48.0 Paroxysmal atrial fibrillation (principal); Z79.01 Long term (current) use of 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s
CPT/HCPCS: 36416; 85610

== ENCOUNTER 2019-11-01 11:08 | Outpatient (RCR) | payer MEDICARE, SELFPAY ==
[2018-05-29 23:30] VITALS: BMI 26.7
[2019-10-04 13:15] LABS: Prothrombin Time Fingerstick 25.1 SEC (11.9-14.4)
[2019-10-18 10:11] LABS: Prothrombin Time Fingerstick 22.9 SEC (11.9-14.4)
[2019-11-01 11:16] LABS: Prothrombin Time Fingerstick 29.9 SEC (11.9-14.4)
== END 2019-11-01 18:00 | disposition home or self-care (01) ==
LOC: LAB 11:08
PROVIDERS: Referring Provider Internal Medicine Cardiovascular Disease; Visit Provider Internal Medicine Cardiovascular Disease
DX: I48.0 Paroxysmal atrial fibrillation (principal)
CPT/HCPCS: 36416; 85610

== ENCOUNTER 2019-11-22 09:49 | Outpatient (RCR) | payer MEDICARE, SELFPAY ==
[2018-05-29 23:30] VITALS: BMI 26.7
[2019-11-22 10:00] LABS: Prothrombin Time Fingerstick 25.1 SEC (11.9-14.4)
== END 2019-11-22 18:00 | disposition home or self-care (01) ==
LOC: LAB 09:49
PROVIDERS: Referring Provider Internal Medicine Cardiovascular Disease; Visit Provider Internal Medicine Cardiovascular Disease
DX: I48.0 Paroxysmal atrial fibrillation (principal)
CPT/HCPCS: 36416; 85610

== ENCOUNTER 2019-12-20 10:27 | Outpatient (RCR) | payer MEDICARE, SELFPAY ==
[2018-05-29 23:30] VITALS: BMI 26.7
[2019-12-20 10:36] LABS: Prothrombin Time Fingerstick 28.1 SEC (11.9-14.4)
== END 2020-01-02 18:00 | disposition home or self-care (01) ==
LOC: LAB 10:27
PROVIDERS: Referring Provider Internal Medicine Cardiovascular Disease; Visit Provider Internal Medicine Cardiovascular Disease
DX: I48.0 Paroxysmal atrial fibrillation (principal)
CPT/HCPCS: 36416; 85610

== ENCOUNTER 2020-01-17 09:56 | Outpatient (RCR) | payer MEDICARE, SELFPAY ==
[2018-05-29 23:30] VITALS: BMI 26.7
[2020-01-17 15:41] LABS: Prothrombin Time Fingerstick 29.3 SEC (11.9-14.4)
== END 2020-01-17 18:00 | disposition home or self-care (01) ==
LOC: LAB 09:56
PROVIDERS: Referring Provider Internal Medicine Cardiovascular Disease; Visit Provider Internal Medicine Cardiovascular Disease
DX: I48.0 Paroxysmal atrial fibrillation (principal)
CPT/HCPCS: 36416; 85610

== ENCOUNTER 2020-02-14 12:04 | Outpatient (RCR) | payer MEDICARE, SELFPAY ==
[2018-05-29 23:30] VITALS: BMI 26.7
[2020-02-14 12:16] LABS: Prothrombin Time Fingerstick 26.1 SEC (11.9-14.4)
== END 2020-02-14 18:00 | disposition home or self-care (01) ==
LOC: LAB 12:04
PROVIDERS: Referring Provider Internal Medicine Cardiovascular Disease; Visit Provider Internal Medicine Cardiovascular Disease
DX: I48.0 Paroxysmal atrial fibrillation (principal)
CPT/HCPCS: 36416; 85610

== ENCOUNTER 2020-03-13 10:47 | Outpatient (RCR) | payer MEDICARE, SELFPAY ==
[2018-05-29 23:30] VITALS: BMI 26.7
[2020-03-14 08:25] LABS: Prothrombin Time Fingerstick 23.2 SEC (11.9-14.4)
== END 2020-03-13 18:00 | disposition home or self-care (01) ==
LOC: LAB 10:47
PROVIDERS: Referring Provider Internal Medicine Cardiovascular Disease; Visit Provider Internal Medicine Cardiovascular Disease
DX: I48.0 Paroxysmal atrial fibrillation (principal)
CPT/HCPCS: 36416; 85610

== ENCOUNTER 2020-06-08 10:51 | Outpatient (RCR) | payer MEDICARE, SELFPAY ==
[2018-05-29 23:30] VITALS: BMI 26.7
[2020-06-08 11:05] LABS: Prothrombin Time Fingerstick 19.5 SEC (11.9-14.4)
== END 2020-06-08 18:00 | disposition home or self-care (01) ==
LOC: LAB 10:51
PROVIDERS: Referring Provider Internal Medicine Cardiovascular Disease; Visit Provider Internal Medicine Cardiovascular Disease
DX: I48.0 Paroxysmal atrial fibrillation (principal)
CPT/HCPCS: 36416; 85610

== ENCOUNTER 2020-07-30 10:35 | Outpatient (RCR) | payer MEDICARE, SELFPAY ==
[2018-05-29 23:30] VITALS: BMI 26.7
[2020-07-02 12:50] LABS: Prothrombin Time Fingerstick 20.3 SEC (11.9-14.4)
[2020-07-16 15:25] LABS: INR Fingerstick 1.8; Prothrombin Time Fingerstick 21.2 SEC (11.9-14.4)
[2020-07-30 10:46] LABS: INR Fingerstick 2.1; Prothrombin Time Fingerstick 24.3 SEC (11.9-14.4)
== END 2020-07-30 18:00 | disposition home or self-care (01) ==
LOC: LAB 10:35
PROVIDERS: Referring Provider Internal Medicine Cardiovascular Disease; Visit Provider Internal Medicine Cardiovascular Disease
DX: I48.0 Paroxysmal atrial fibrillation (principal)
CPT/HCPCS: 36416; 85610

== ENCOUNTER 2020-08-13 09:07 | Outpatient (RCR) | payer MEDICARE, SELFPAY ==
[2018-05-29 23:30] VITALS: BMI 26.7
[2020-08-13 09:16] LABS: INR Fingerstick 2.3; Prothrombin Time Fingerstick 26.4 SEC (11.9-14.4)
== END 2020-08-13 18:00 | disposition home or self-care (01) ==
LOC: LAB 09:07
PROVIDERS: Referring Provider Internal Medicine Cardiovascular Disease; Visit Provider Internal Medicine Cardiovascular Disease
DX: I48.0 Paroxysmal atrial fibrillation (principal)
CPT/HCPCS: 36416; 85610

== ENCOUNTER 2020-09-05 10:57 | Outpatient (RCR) | payer MEDICARE, SELFPAY ==
[2018-05-29 23:30] VITALS: BMI 26.7
[2020-09-05 11:11] LABS: INR Fingerstick 2.1
== END 2020-09-05 18:00 | disposition home or self-care (01) ==
LOC: LAB 10:57
PROVIDERS: Referring Provider Internal Medicine Cardiovascular Disease; Visit Provider Internal Medicine Cardiovascular Disease
DX: I48.0 Paroxysmal atrial fibrillation (principal)
CPT/HCPCS: 36416; 85610

== ENCOUNTER 2020-10-31 11:41 | Outpatient (RCR) | payer MEDICARE, SELFPAY ==
[2018-05-29 23:30] VITALS: BMI 26.7
[2020-10-03 10:30] LABS: INR Fingerstick 3.2; Prothrombin Time Fingerstick 34.8 SEC (11.9-14.4)
[2020-10-31 17:00] LABS: INR Fingerstick 2.6; Prothrombin Time Fingerstick 28.7 SEC (11.9-14.4)
== END 2020-10-31 18:00 | disposition home or self-care (01) ==
LOC: LAB 11:41
PROVIDERS: Referring Provider Internal Medicine Cardiovascular Disease; Visit Provider Internal Medicine Cardiovascular Disease
DX: I48.0 Paroxysmal atrial fibrillation (principal); Z95.3 Presence of xenogenic heart valve
CPT/HCPCS: 36416; 85610

== ENCOUNTER 2020-11-21 10:48 | Outpatient (RCR) | payer MEDICARE, SELFPAY ==
[2018-05-29 23:30] VITALS: BMI 26.7
[2020-11-21 10:56] LABS: INR Fingerstick 2.6
== END 2020-11-21 18:00 | disposition home or self-care (01) ==
LOC: LAB 10:48
PROVIDERS: Referring Provider Internal Medicine Cardiovascular Disease; Visit Provider Internal Medicine Cardiovascular Disease
DX: I48.0 Paroxysmal atrial fibrillation (principal); Z95.3 Presence of xenogenic heart valve
CPT/HCPCS: 36416; 85610

== ENCOUNTER 2020-12-19 13:36 | Outpatient (RCR) | payer MEDICARE, SELFPAY ==
[2018-05-29 23:30] VITALS: BMI 26.7
[2020-12-20 08:15] LABS: INR Fingerstick 2.8; Prothrombin Time Fingerstick 30.8 SEC (11.9-14.4)
== END 2020-12-19 18:00 | disposition home or self-care (01) ==
LOC: LAB 13:36
PROVIDERS: Referring Provider Internal Medicine Cardiovascular Disease; Visit Provider Internal Medicine Cardiovascular Disease
DX: I48.0 Paroxysmal atrial fibrillation (principal); Z95.3 Presence of xenogenic heart valve
CPT/HCPCS: 36416; 85610

== ENCOUNTER 2020-12-31 22:06 | Emergency (ER) | payer MEDICARE, SELFPAY ==
[2020-12-31 22:06] VITALS: BP 106/74; PULSE 154; RESP 16; TEMP 36.4; O2SAT 96; BMI 26.5
[2020-12-31 22:20] VITALS: BP 158/116; PULSE 169; RESP 19; O2SAT 94
--- NOTE | 2020-12-31 23:04 | EKG12_ITS ---
Test Reason : DYSRHYTHMIA Blood Pressure : / mmHG Vent. Rate : 156 BPM Atrial Rate : 119 BPM P-R Int : 000 ms QRS Dur : 086 ms QT Int : 260 ms P-R-T Axes : 000 073 055 degrees QTc Int : 419 ms Atrial fibrillation Nonspecific ST abnormality Abnormal ECG Confirmed by BRINA WARD, PITO ([id number]), research editor NIK ROPER ([id number]) on 01/02/2021 9:52:51 AM Referred By: SURAJ Confirmed By:PITO GONSALVES MD
--- NOTE | 2020-12-31 23:05 | EDS_ITS ---
HPI History of Present Illness Chief Complaint: Palpitations Informant: patient and family Narrative Narrative: 80-year-old female presents to the emergency department with an episode of atrial fibrillation. Patient states that she developed symptoms abruptly at approximately 2030 hrs. tonight. Patient states that she is status post mitral valve replacement due to rheumatic valve disease. She is maintained on Coumadin. She states that in 2019 she underwent cardiac ablation for atrial fibrillation has remained in sinus rhythm basically since that time. She sees Dr. Perez in [place] for this. She recently lost her and her father. She states tonight she felt herself developed heart palpitations. No syncope. No known cardiac artery disease. [facility] Medical History Atrial fibrillation Endometrial cancer Hernia Mitral and aortic valve disease Neuropathy Home Medications Caltrate 600-D Plus Minerals 1 ea PO DAILY 05/21/18 [History Last Taken 05/29/18] Paco Matrix 5000 1 ea PO DAILY 05/21/18 [History Last Taken 05/29/18] acetaminophen 650 mg PO Q4H PRN 05/21/18 [History Last Taken Unknown] albuterol sulfate [ProAir HFA] 2 puff INHALATION Q6H PRN PRN 05/21/18 [History Last Taken Unknown] alendronate [Fosamax] 70 mg PO QWEEK 05/21/18 [History Last Taken 05/15/18] cholecalciferol (vitamin D3) [Vitamin D3] 1,000 unit PO DAILY 05/21/18 [History Last Taken 05/29/18] cholestyramine (with sugar) [Questran] 4 g PO DAILY 05/21/18 [History Last Taken 05/29/18 14:30] cyanocobalamin (vitamin B-12) 1,000 mcg SUBLINGUAL DAILY 05/21/18 [History Last Taken 05/29/18 12:00] gabapentin [Neurontin] 600 mg PO QHS 05/21/18 [History Last Taken 05/28/18] pramipexole 0.25 mg PO QHS 05/21/18 [History Last Taken 05/28/18] warfarin [Jantoven] 0.5 mg PO DAILY 05/21/18 [History Last Taken 05/28/18] metoprolol tartrate 25 mg PO TID 05/29/18 [History Last Taken 05/29/18 13:30] citalopram 10 mg PO DAILY 12/31/20 [History Last Taken Unknown] gabapentin 300 mg PO BREAKFAST 12/31/20 [History Last Taken Unknown] Allergy/AdvReac Type Severity Reaction Status Date / Time No Known Allergies Allergy Verified 12/31/20 22:08 Surgical History History of cholecystectomy History of hysterectomy for cancer S/P ablation operation for arrhythmia Social History (Updated 12/31/20 @ 23:[address] Adalid Sawant DO) Smoking Status: Never smoker substance use type: does not use ROS ROS ED Constitutional Constitutional ED: Denies chills or weight loss Eyes Eyes: Denies change in vision or diplopia ENT ENT ED: Denies ear pain, rhinorrhea or sore throat Cardiovascular Cardiovascular: Reports palpitations and racing heartbeat; Denies chest pain or orthopnea Respiratory/Chest Respiratory/Chest: Denies cough, dyspnea or orthopnea Gastrointestinal Gastrointestinal: Denies abdominal pain, diarrhea, nausea or vomiting Genitourinary Genitourinary ED: Denies dysuria, hematuria or urinary frequency Musculoskeletal Musculoskeletal: Denies arthralgias or myalgias Integumentary Denies abscess or rash Neurologic Neurologic: Denies headache(s) or weakness Psychiatric Psychiatric: Denies anxiety, depression, suicidal ideation or suicidal thoughts Endocrine Endocrinology: Denies polydipsia, polyphagia or polyuria Allergic/Immunologic Allergic/Immunologic ED: Denies mouth swelling, tongue swelling or urticaria EXAM Physical Exam Const Vital Signs: 12/31/20 22:06 12/31/20 22:20 12/31/20 23:27 Temperature 97.6 F L Temperature Source Temporal Pulse Rate 154 H 169 H 155 H Respiratory Rate 16 19 H 19 H Blood Pressure 106/74 158/116 H 145/82 H Blood Pressure Mean 84 130 103 Pulse Ox 96 94 95 Oxygen Delivery Method Room Air Room Air Room Air Oxygen Flow Rate (L/min) 01/01/21 00:45 01/01/21 01:19 01/01/21 01:34 Temperature Temperature Source Pulse Rate 77 66 57 L Respiratory Rate 22 H 16 16 Blood Pressure 100/85 H 105/55 L 93/81 H Blood Pressure Mean 90 71 85 Pulse Ox 94 96 Oxygen Delivery Method Nasal Cannula Oxygen Flow Rate (L/min) 3 01/01/21 03:00 Temperature Temperature Source Pulse Rate 54 L Respiratory Rate 16 Blood Pressure 106/61 Blood Pressure Mean 76 Pulse Ox 96 Oxygen Delivery Method Room Air Oxygen Flow Rate (L/min) Positive well nourished and well developed General Appearance ED: well developed HEENT Reports normocephalic, head/scalp atraumatic and moist mucous membranes Eyes PERRL and EOMs intact bilaterally Neck no lymphadenopathy, supple and no JVD Resp normal respiratory effort and clear to auscultation bilaterally Cardio no murmurs Rate: tachycardic Rhythm: abnormal rhythm irregularly irregular GI normal to inspection, nondistended, normoactive bowel sounds and non-tender Palpation: soft Back/Spine no CVA tenderness and normal ROM Extremity normal to inspection General Extremety ED: Negative for edema General Extremity: Negative for edema Neuro oriented x3 and CN's II-XII intact bilaterally Sensorium / Orientation: alert Motor Exam: strength 5/5 throughout Psych mental status grossly normal Mood & Affect: Negative for depressed or tearful Skin no rashes or lesions noted and no wounds MDM MDM MDM Narrative Medical decision making narrative: Patient received 2 doses of metoprolol IV. Heart rate slowed into the 100-120 bpm range. She is therapeutic on her INR 2.7. My interpretation of the chest x-ray is decreased left pleural effusion. Otherwise no acute findings. I was reviewing the patient's labs with her when she acutely became more tachycardic around 200-220. Blood pressure decreased to 80 systolic patient became slightly diaphoretic and was weak. Patient provided informed emergent consent for cardioversion. Patient received 10 mg of etomidate. Once adequate sedation was achieved the patient underwent to defibrillations of 200 J synchronized. The first resulted in no change in rhythm. The second resulted in a bigeminy and patient returned to atrial fibrillation with RVR in the 120 range. The patient was allowed to recover from the sedation without any incident. She received a 150 mg bolus of amiodarone and placed on a drip. This resulted in conversion to a normal sinus rhythm. Patient was observed. The drip was discontinued and she was observed further. Patient has remained in a sinus rhythm. At this point she is fully anticoagulated. She is back into a sinus rhythm and is feeling back to her normal self. She will be discharged home to follow-up with cardiology Lab Data Attestation: I reviewed the patient's lab results. Labs: Laboratory Results - last 24 hr 12/31/20 12/31/20 12/31/20 22:26 22:26 22:26 WBC 5.7 RBC 4.71 Hgb 14.5 Hct 42.4 MCV 90.0 MCH 30.8 MCHC 34.2 RDW Std Deviation 40.5 RDW Coeff of Zulma 12.2 Plt Count 188 MPV 9.0 Immature Gran % (Auto) 0.500 Neut % (Auto) 67.8 Lymph % (Auto) 17.8 L [place] % (Auto) 11.1 H Eos % (Auto) 1.6 Baso % (Auto) 1.2 H Absolute Neuts (auto) 3.9 Absolute Lymphs (auto) 1.01 Nucleated RBC % 0 PT 27.5 H INR 2.7 Sodium 141 Potassium 3.4 L Chloride 109 H Carbon Dioxide 27.0 Anion Gap 5 BUN 21 H Creatinine 0.90 Estim Creat Clear Calc 40.74 Est GFR (MDRD) Af Amer 77 Est GFR (MDRD) Non-Af 64 BUN/Creatinine Ratio 23.2 H Glucose 144 H Calcium 8.9 Magnesium 1.9 Troponin I High Sens 79 H* Radiography Diagnostic Testing: Radiology Impression Chest X-Ray 12/31/20 23:05 IMPRESSION: There is a small LEFT pleural effusion and/or pleural thickening with adjacent atelectasis/infiltrate. These findings have decreased compared to prior study. There is no focal consolidation identified. Other findings as discussed above. Electronically Signed: Jasbir Cheema MD at 23:51 EDT Tel , Service support , EKG Initial EKG: Attestation: I personally reviewed and interpreted this EKG as follows: Comments: Atrial fibrillation and ventricular rate of [address] depression. Follow-up EKG: Attestation: I personally reviewed and interpreted this EKG as follows: Comments: Sinus rhythm with a ventricular rate of [address] depression. Discharge Plan Triage Chief Complaint: Palpitations ED Provider: Adalid Sawant Dx/Rx/DC Orders Clinical Impression: Atrial fibrillation with rapid ventricular response Instructions: ED AFIB Prescriptions: No Action acetaminophen 325 MG tablet 650 mg PO Q4H PRN (Reason: Pain) RF: 0 alendronate [Fosamax] 70 MG tablet 70 mg PO QWEEK RF: 0 pramipexole 0.25 MG tablet 0.25 mg PO QHS RF: 0 cyanocobalamin (vitamin B-12) 1,000 MCG tablet, sublingual 1,000 mcg sublingual DAILY RF: 0 gabapentin [Neurontin] 100 MG capsule 600 mg PO QHS RF: 0 warfarin [Jantoven] 1 MG tablet 0.5 mg PO DAILY RF: 0 albuterol sulfate [ProAir HFA] 1 PUFF inhaler 2 puff inhalation Q6H PRN PRN (Reason: Sob &/Or Wheezing) RF: 0 cholestyramine (with sugar) [Questran] 4 GM powder in packet 4 g PO DAILY RF: 0 cholecalciferol (vitamin D3) [Vitamin D3] 1,000 UNIT tablet 1,000 unit PO DAILY RF: 0 Caltrate 600-D Plus Minerals 1 EACH tablet 1 ea PO DAILY RF: 0 Pointblank Matrix 5000 1 EACH tablet extended release 1 ea PO DAILY RF: 0 metoprolol tartrate 50 MG tablet 25 mg PO TID RF: 0 gabapentin 300 mg capsule 300 mg PO BREAKFAST RF: 0 citalopram 10 mg tablet 10 mg PO DAILY RF: 0 Referrals: SAROJ VALLECILLO [Other] - As Needed Activity Restrictions/Additional Instructions: Please call Dr. Perez's office tomorrow. Inform them that you came to the emergency department with heart rates around 200. Inform them that you were therapeutic with your Coumadin at 2.7 and you underwent electrical cardioversion and amiodarone treatment. You converted back to a sinus rhythm. Please return if any concerns Disposition Disposition: Home, Self Care
--- NOTE | 2020-12-31 23:05 | RAD_ITS ---
STUDY: X-RAY CHEST REASON FOR EXAM: Female, 80 years old. chest pain TECHNIQUE: Single frontal view of the chest. COMPARISON: 05/29/2018 FINDINGS: EKG leads artifacts. Status post median sternotomy. Atrial appendage clip. There is no pneumothorax identified. There is a small LEFT pleural effusion with adjacent atelectasis/infiltrate. There is no focal consolidation identified. Normal size heart. Aortic calcifications. There are diffuse degenerative changes of the visualized thoracic spine. There is degenerative osteoarthritis of the bilateral shoulders. There is no demonstrated abnormality of the visualized soft tissue structures of the upper abdomen. RAD/Chest 1 View (Portable) IMPRESSION: There is a small LEFT pleural effusion and/or pleural thickening with adjacent atelectasis/infiltrate. These findings have decreased compared to prior study. There is no focal consolidation identified. Other findings as discussed above. Electronically Signed: Jasbir Cheema MD at 23:51 EDT Tel , Service support ,
[2020-12-31 23:27] VITALS: BP 145/82; PULSE 155; RESP 19; O2SAT 95
[2020-12-31] MEDS: Metoprolol Tartrate 5 MG/5 ML Vial IV ×2 (23:31→23:39)
[2020-12-31 23:35] LABS: Absolute Lymphocyte Count 1.01 X10^3/uL (0.83-4.51); Absolute Neutrophil Count 3.9 X10^3/uL (2.0-7.7); Basophil# 0.07 X10^3/uL; Basophil% 1.2 % (0-1); Eosinophil# 0.09 X10^3/uL; Eosinophils% 1.6 % (0-5); Hematocrit 42.4 % (37-47); Hemoglobin 14.5 g/dL (12.0-15.0); Lymphocyte # 1.01 X10^3/ul (0.83-4.51); Lymphocyte % 17.8 % (19-41); Mean Corp Hgb Conc 34.2 g/dL (32-36); Mean Corpuscular Hgb 30.8 pg (27.0-32.0); Monocyte# 0.63 X10^3/uL; Monocyte% 11.1 % (0-10); NRBC Flagged by Analyzer 0 % (0-5); Neutrophil # 3.85 X10^3/uL (2.7-7.7); Neutrophil % 67.8 % (47-70); Platelet Count 188 K/mm3 (150-450); RBC Distribution Width CV 12.2 % (11.6-14.6); RBC Distribution Width SD 40.5 fl (35.1-43.9); Red Blood Count 4.71 M/mm3 (4.2-5.4); White Blood Count 5.7 K/mm3 (4.4-11.0)
[2020-12-31 23:51] LABS: International Normalized Ratio 2.7; Prothrombin Time (Protime)PT. 27.5 SECONDS (11.7-14.9)
[2021-01-01 00:02] LABS: Anion Gap 5 (5-15); BUN 21 mg/dL (7-18); BUN/Creat Ratio 23.2 RATIO (10-20); Calcium,Total 8.9 mg/dL (8.5-10.1); Chloride 109 mmol/L (98-107); EST Glomerular Filtration Rate 64 mL/min (>60); Est Glom Filt Rate - Afr Amer 77 mL/min (>60); Estimated Creatinine Clearance 40.74 ml/min; Glucose 144 mg/dL (74-106); Magnesium 1.9 mg/dL (1.6-2.6); Potassium 3.4 mmol/L (3.5-5.1); Sodium Level 141 mmol/L (136-145); Troponin-I HS 79 pg/mL (3.0-54.0)
[2021-01-01] MEDS: Etomidate 20 MG/10 ML Vial 10 MG IV (00:38)
[2021-01-01 00:45] VITALS: BP 100/85; PULSE 77; RESP 22; O2SAT 94
[2021-01-01 01:19] VITALS: BP 105/55; PULSE 66; RESP 16
[2021-01-01 01:34] VITALS: BP 93/81; PULSE 57; RESP 16; O2SAT 96
[2021-01-01] MEDS: Amiodarone 360 MG in Dextrose 5% Viaflo Bag 192.8 ML 33.3 MG CONT INF (01:34)
--- NOTE | 2021-01-01 01:37 | EKG12_ITS ---
Test Reason : RHYTHM CONVERSION Blood Pressure : / mmHG Vent. Rate : 061 BPM Atrial Rate : 061 BPM P-R Int : 200 ms QRS Dur : 092 ms QT Int : 434 ms P-R-T Axes : -29 064 059 degrees QTc Int : 436 ms Normal sinus rhythm vs Ectopic Atrial Rhythm Confirmed by BRINA WARD, PITO ([id number]), manuscript editor NIK ROPER ([id number]) on 01/02/2021 9:53:20 AM Referred By: Confirmed By:PITO GONSALVES MD
[2021-01-01 03:00] VITALS: BP 106/61; PULSE 54; RESP 16; O2SAT 96
--- NOTE | 2021-01-01 03:20 | ED.RN ---
DR. PERALTA REQUESTED TO STOP THE CORDARONE FOR ONE HOUR DUE TO PT'S HEART RATE IS S.R. AT 54. OBSERVE AND REASSESS AFTER ONE HOUR.
[2021-01-01 04:25] VITALS: BP 109/52; PULSE 60; RESP 16; O2SAT 96
== END 2021-01-01 05:08 | disposition home or self-care (01) ==
PROVIDERS: Emergency Provider Emergency Medicine
DX: I48.20 Chronic atrial fibrillation, unspecified (principal); Z79.01 Long term (current) use of 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s; Z79.899 Other long term (current) drug therapy; Z95.2 Presence of prosthetic heart valve
CPT/HCPCS: 71045; 80048; 83735; 84484; 85025; 85610; 92960; 93005; 96365; 96366; 96375; 99284; J7030; A4216

== ENCOUNTER 2021-01-16 15:26 | Outpatient (RCR) | payer MEDICARE, SELFPAY ==
[2021-01-02 00:30] VITALS: BMI 26.7
[2021-01-16 16:45] LABS: International Normalized Ratio 3.1; Prothrombin Time (Protime)PT. 31.1 SECONDS (11.7-14.9)
== END 2021-01-16 18:00 | disposition home or self-care (01) ==
LOC: LAB 15:26
PROVIDERS: Referring Provider Internal Medicine Cardiovascular Disease; Visit Provider Internal Medicine Cardiovascular Disease
DX: I48.0 Paroxysmal atrial fibrillation (principal); Z95.3 Presence of xenogenic heart valve
CPT/HCPCS: 36415; 85610

== ENCOUNTER 2021-02-19 11:54 | Outpatient (RCR) | payer MEDICARE, SELFPAY ==
[2021-01-31 22:17] VITALS: BMI 26.7
[2021-02-19 12:30] LABS: INR Fingerstick 2.9; Prothrombin Time Fingerstick 31.8 SEC (11.9-14.4)
== END 2021-03-03 05:02 | disposition home or self-care (01) ==
LOC: LAB 11:54
PROVIDERS: Referring Provider Internal Medicine Cardiovascular Disease; Visit Provider Internal Medicine Cardiovascular Disease
DX: I48.0 Paroxysmal atrial fibrillation (principal); Z95.3 Presence of xenogenic heart valve
CPT/HCPCS: 36416; 85610

== ENCOUNTER 2021-02-23 06:45 | Emergency (ER) | payer MEDICARE, SELFPAY ==
[2021-02-23] VITALS (8 sets, daily range): BP systolic 108–123; BP diastolic 66–90; PULSE 72–132; RESP 14–22; TEMP 36.2; O2SAT 96–99; BMI 28.5
--- NOTE | 2021-02-23 06:59 | EX.ED.DYSGE1 ---
HPI History of Present Illness Chief Complaint: Palpitations Informant: patient Onset/Context/Timing Onset: Hours (1.5) Context: Sudden Onset (Woke her up from sleep) Timing: Continuous Quality: Skipping/irregular heartbeat Location: Chest Current Severity: Moderate Maximum Severity: Moderate Worsened by: Nothing Relieved by: nothing Associated Symptoms Associated Symptoms: Denies Narrative Narrative: Patient has history of A. fib, she woke up feeling like she was back in rapid A. fib. She had a mitral valvuloplasty and ablation in 2018, this is the second time she is felt herself go into rapid A. fib since then. She was cardioverted in the past. She states her expressive art therapist is Dr. Perez at [facility], states that he just had her do a 2-week event monitor and she turned it in but has not had the results yet, trying to see how much she has been in atrial fibrillation that she is unaware of. She denies any recent illness. She has been compliant with her medications although as she presents at 7 AM, she has not yet had them this morning which include metoprolol 25 mg 3 times daily. She is on no antidysrhythmic's. She is on warfarin, she does not have a metal valve. She denies having any chest pain, shortness of breath, lightheadedness, syncope. [facility] Medical History Atrial fibrillation Endometrial cancer Hernia Mitral and aortic valve disease Neuropathy Home Medications Caltrate 600-D Plus Minerals 1 ea PO DAILY 05/21/18 [History Last Taken 05/29/18] Paco Matrix 5000 1 ea PO DAILY 05/21/18 [History Last Taken 05/29/18] acetaminophen 650 mg PO Q4H PRN 05/21/18 [History Last Taken Unknown] alendronate [Fosamax] 70 mg PO QWEEK 05/21/18 [History Last Taken 05/15/18] cholecalciferol (vitamin D3) [Vitamin D3] 1,000 unit PO DAILY 05/21/18 [History Last Taken 05/29/18] cholestyramine (with sugar) [Questran] 4 g PO DAILY 05/21/18 [History Last Taken 05/29/18 14:30] cyanocobalamin (vitamin B-12) 1,000 mcg SUBLINGUAL DAILY 05/21/18 [History Last Taken 05/29/18 12:00] pramipexole 0.25 mg PO QHS 05/21/18 [History Last Taken 05/28/18] warfarin [Jantoven] 0.5 mg PO DAILY 05/21/18 [History Last Taken 05/28/18] citalopram 10 mg PO DAILY 12/31/20 [History Last Taken Unknown] gabapentin 600 mg PO BID 12/31/20 [History Last Taken Unknown] metoprolol tartrate 50 mg PO BID #1 tab 02/23/21 [Rx Last Taken Unknown] simvastatin 10 mg PO DAILY 02/23/21 [History Last Taken Unknown] Allergy/AdvReac Type Severity Reaction Status Date / Time No Known Allergies Allergy Verified 02/23/21 06:46 Surgical History History of cholecystectomy History of hysterectomy for cancer S/P ablation operation for arrhythmia Social History Smoking Status: Never smoker substance use type: does not use ROS ROS ED Constitutional Constitutional ED: Denies chills or fever(s) Eyes Eyes: Denies change in vision or diplopia ENT ENT ED: Denies rhinorrhea or sore throat Cardiovascular Cardiovascular: Reports palpitations; Denies chest pain Respiratory/Chest Respiratory/Chest: Denies cough or dyspnea Gastrointestinal Gastrointestinal: Denies abdominal pain, diarrhea, nausea or vomiting Genitourinary Genitourinary ED: Denies dysuria or hematuria Musculoskeletal Musculoskeletal: Denies back pain or neck pain Integumentary Denies abscess or rash Neurologic Neurologic: Denies headache(s), paresthesias or weakness Psychiatric Psychiatric: Denies anxiety or suicidal thoughts Hematologic/Lymphatic Hematologic/Lymphatic: Reports easy bleeding and easy bruising EXAM Physical Exam Const Vital Signs: 02/23/21 06:46 02/23/21 06:48 02/23/21 07:46 Temperature 97.1 F L Temperature Source Temporal Pulse Rate 132 H 94 Respiratory Rate 22 H 15 Respiratory Effort Normal Respiratory Pattern Normal Blood Pressure 117/87 H 115/80 Blood Pressure Mean 97 91 Pulse Ox 98 96 Oxygen Delivery Method Room Air Room Air 02/23/21 09:00 Temperature Temperature Source Pulse Rate 112 H Respiratory Rate 18 Respiratory Effort Respiratory Pattern Blood Pressure 108/66 Blood Pressure Mean 80 Pulse Ox 97 Oxygen Delivery Method Positive well nourished and well developed General Appearance ED: well developed and NAD HEENT Reports moist mucous membranes normocephalic and atraumatic Eyes PERRL and EOMs intact bilaterally Neck full ROM and supple Resp normal respiratory effort and clear to auscultation bilaterally Cardio no murmurs Rate: tachycardic Rhythm: abnormal rhythm regularly irregular GI non-tender and non-distended Auscultation: normoactive bowel sounds Palpation: soft Back/Spine no CVA tenderness General Back: other FROM Extremity normal to inspection and no calf tenderness General Extremety ED: Negative for edema, pulses abnormal or tenderness General Extremity: Negative for edema or pulses abnormal Neuro oriented x3, CN's II-XII intact bilaterally and no sensory deficits noted Sensorium / Orientation: awake and alert Motor Exam: strength 5/5 throughout Skin no rashes or lesions noted and no wounds MDM MDM MDM Narrative Medical decision making narrative: Given the history, it shows a rate control the patient for now. She was given Cardizem and metoprolol since she had not had her oral metoprolol this morning yet, this controlled her rate well into the 80s, her blood pressure remained stable and she felt much better asymptomatic. Her troponin came back slightly elevated. I discussed with the expressive art therapist on-call for Dr. Perez, at [facility]. He recommended rate controlling her and not cardioverting her in the emergency department, and maybe repeating her enzymes. We did that, and they are going down. She is still feeling well, her heart rate came up until around the 110 range with observation but she still feels well. She never had any angina or symptoms suspicious of this. Given this, the expressive art therapist recommends close outpatient follow-up with her expressive art therapist Dr. Perez. Patient is comfortable with this plan. Since she is mildly tachycardic here prior to discharge, I increased her afternoon dose of metoprolol and give it to her early, 50 mg here, she is on 25 mg 3 times daily, and we discussed reasons to return she is comfortable with that plan. Lab Data Attestation: I reviewed the patient's lab results. Labs: Laboratory Results - last 24 hr 02/23/21 02/23/21 02/23/21 07:05 07:05 07:05 WBC 5.3 RBC 4.56 Hgb 14.3 Hct 41.3 MCV 90.6 MCH 31.4 MCHC 34.6 RDW Std Deviation 42.5 RDW Coeff of Zulma 12.9 Plt Count 194 MPV 9.2 Immature Gran % (Auto) 0.400 Neut % (Auto) 52.7 Lymph % (Auto) 31.4 Banks % (Auto) 10.8 H Eos % (Auto) 3.0 Baso % (Auto) 1.7 H Absolute Neuts (auto) 2.8 Absolute Lymphs (auto) 1.65 Nucleated RBC % 0 PT 32.1 H INR 3.2 Sodium 142 Potassium 3.8 Chloride 111 H Carbon Dioxide 26.0 Anion Gap 5 BUN 19 H Creatinine 0.92 Estim Creat Clear Calc 39.86 Est GFR (MDRD) Af Amer 76 Est GFR (MDRD) Non-Af 63 BUN/Creatinine Ratio 20.7 H Glucose 101 Calcium 8.7 Troponin I High Sens 161 H* 02/23/21 09:05 WBC RBC Hgb Hct MCV MCH MCHC RDW Std Deviation RDW Coeff of Zulma Plt Count MPV Immature Gran % (Auto) Neut % (Auto) Lymph % (Auto) Banks % (Auto) Eos % (Auto) Baso % (Auto) Absolute Neuts (auto) Absolute Lymphs (auto) Nucleated RBC % PT INR Sodium Potassium Chloride Carbon Dioxide Anion Gap BUN Creatinine Estim Creat Clear Calc Est GFR (MDRD) Af Amer Est GFR (MDRD) Non-Af BUN/Creatinine Ratio Glucose Calcium Troponin I High Sens 155 H* EKG Initial EKG: Attestation: I personally reviewed and interpreted this EKG as follows: Interpretation: No Acute Injury Pattern and Atrial Fibrillation Discharge Plan Triage Chief Complaint: Palpitations ED Provider: Aelxander Sung Dx/Rx/DC Orders Clinical Impression: Atrial fibrillation with rapid ventricular response, Warfarin-induced coagulopathy Instructions: ED AFIB Prescriptions: Continued acetaminophen 325 MG tablet 650 mg PO Q4H PRN (Reason: Pain) RF: 0 alendronate [Fosamax] 70 MG tablet 70 mg PO QWEEK RF: 0 pramipexole 0.25 MG tablet 0.25 mg PO QHS RF: 0 cyanocobalamin (vitamin B-12) 1,000 MCG tablet, sublingual 1,000 mcg sublingual DAILY RF: 0 warfarin [Jantoven] 1 MG tablet 0.5 mg PO DAILY RF: 0 cholestyramine (with sugar) [Questran] 4 GM powder in packet 4 g PO DAILY RF: 0 cholecalciferol (vitamin D3) [Vitamin D3] 1,000 UNIT tablet 1,000 unit PO DAILY RF: 0 Caltrate 600-D Plus Minerals 1 EACH tablet 1 ea PO DAILY RF: 0 Paco Matrix 5000 1 EACH tablet extended release 1 ea PO DAILY RF: 0 gabapentin 300 mg capsule 600 mg PO BID RF: 0 citalopram 10 mg tablet 10 mg PO DAILY RF: 0 simvastatin 10 mg tablet 10 mg PO DAILY RF: 0 Changed metoprolol tartrate 50 MG tablet 50 mg PO BID Qty: 1 RF: 0 Referrals: Farida España [Other] Sebastian Perez MD [NON-STAFF] - As soon as possible (call thursday for appt) Disposition Disposition: Home, Self Care
[2021-02-23] MEDS: Metoprolol Tartrate 5 MG/5 ML Vial IV (07:06)
[2021-02-23] MEDS: dilTIAZem 25 MG/5 ML Vial 10 MG IV BOLUS ×2 (07:06→13:18)
[2021-02-23 07:14] LABS: Absolute Lymphocyte Count 1.65 X10^3/uL (0.83-4.51); Absolute Neutrophil Count 2.8 X10^3/uL (2.0-7.7); Basophil# 0.09 X10^3/uL; Basophil% 1.7 % (0-1); Eosinophil# 0.16 X10^3/uL; Hematocrit 41.3 % (37-47); Hemoglobin 14.3 g/dL (12.0-15.0); Lymphocyte # 1.65 X10^3/ul (0.83-4.51); Lymphocyte % 31.4 % (19-41); Mean Corp Hgb Conc 34.6 g/dL (32-36); Mean Corpuscular Hgb 31.4 pg (27.0-32.0); Mean Corpuscular Volume 90.6 fL (81-99); Mean Platelet Vol. 9.2 fl (6.2-12.0); Monocyte# 0.57 X10^3/uL; Monocyte% 10.8 % (0-10); NRBC Flagged by Analyzer 0 % (0-5); Neutrophil # 2.77 X10^3/uL (2.7-7.7); Neutrophil % 52.7 % (47-70); Platelet Count 194 K/mm3 (150-450); RBC Distribution Width CV 12.9 % (11.6-14.6); RBC Distribution Width SD 42.5 fl (35.1-43.9); Red Blood Count 4.56 M/mm3 (4.2-5.4); White Blood Count 5.3 K/mm3 (4.4-11.0)
[2021-02-23 07:23] LABS: International Normalized Ratio 3.2; Prothrombin Time (Protime)PT. 32.1 SECONDS (11.7-14.9)
[2021-02-23 07:37] LABS: Anion Gap 5 (5-15); BUN 19 mg/dL (7-18); BUN/Creat Ratio 20.7 RATIO (10-20); Calcium,Total 8.7 mg/dL (8.5-10.1); Chloride 111 mmol/L (98-107); Creatinine, Serum 0.92 mg/dL (0.55-1.02); EST Glomerular Filtration Rate 63 mL/min (>60); Est Glom Filt Rate - Afr Amer 76 mL/min (>60); Estimated Creatinine Clearance 39.86 ml/min; Glucose 101 mg/dL (74-106); Potassium 3.8 mmol/L (3.5-5.1); Sodium Level 142 mmol/L (136-145); Troponin-I HS 161 pg/mL (3.0-54.0)
--- NOTE | 2021-02-23 07:44 | EKG12_ITS ---
Test Reason : Blood Pressure : / mmHG Vent. Rate : 137 BPM Atrial Rate : 138 BPM P-R Int : 000 ms QRS Dur : 084 ms QT Int : 314 ms P-R-T Axes : 000 068 057 degrees QTc Int : [address] & T wave abnormality, consider anterior ischemia Abnormal ECG Confirmed by ANTHONY WARD, LAMONT ([id number]), editor department NIK ROPER ([id number]) on 02/26/2021 8:46:38 AM Referred By: RAGHAV Confirmed By:LAMONT CRUZ MD
[2021-02-23 09:30] LABS: Troponin-I HS 155 pg/mL (3.0-54.0)
[2021-02-23] MEDS: Metoprolol Tartrate 25 MG Tablet 50 MG PO (11:31)
== END 2021-02-23 14:09 | disposition home or self-care (01) ==
PROVIDERS: Emergency Provider Emergency Medicine
DX: I48.91 Unspecified atrial fibrillation (principal); R79.1 Abnormal coagulation profile; T45.515A Adverse effect of 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s, initial encounter; Y92.9 Unspecified place or not applicable; Z79.01 Long term (current) use of 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s; Z79.899 Other long term (current) drug therapy
CPT/HCPCS: 36415; 80048; 84484; 85025; 85610; 93005; 99284; A4216

== ENCOUNTER 2021-02-23 20:37 | Emergency (ER) | payer MEDICARE, SELFPAY ==
[2021-02-23] VITALS (8 sets, daily range): BP systolic 112–137; BP diastolic 62–91; PULSE 64–135; RESP 11–21; TEMP 36.7–36.8; O2SAT 96–98; BMI 26.5
--- NOTE | 2021-02-23 21:05 | EKG12_ITS ---
Test Reason : PALPS Blood Pressure : / mmHG Vent. Rate : 129 BPM Atrial Rate : 142 BPM P-R Int : 000 ms QRS Dur : 088 ms QT Int : 320 ms P-R-T Axes : 000 062 065 degrees QTc Int : 468 ms Atrial flutter with 2 to [address] and T wave abnormality Abnormal ECG Confirmed by ANTHONY WARD, LAMONT ([id number]), greeting card editor NIK ROPER ([id number]) on 02/26/2021 11:03:22 AM Referred By: SURAJ Confirmed By:LAMONT CRUZ MD
--- NOTE | 2021-02-23 21:17 | ED.VIS.CHEST ---
HPI History of Present Illness Chief Complaint: Palpitations Detail of Chief Complaint: Palpitations and fast heart rate Informant: patient Onset/Context/Timing Onset: Today (Noted this morning upon awakening and after discharge from emergency department) Activity at onset: sudden Timing: Intermittent Quality: Positive for - (Palpitations and fast heart rate) Location: Substernal Current Severity: Moderate Maximum Severity: Moderate Worsened By: - (Nothing) Relieved By: Nothing Associated Symptoms: Positive for Palpitations; Negative for Nausea, Vomiting, Diaphoresis, Dyspnea, Cough, Fever, Lightheadedness and Acid Reflux Narrative Narrative: Patient is an elderly woman with history of atrial fibrillation, 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 INR prior visit was 3.2. She denies black or maroon-colored stool. She denies orthostatic symptoms. Denies headache. Denies visual, ocular auditory symptoms. No trouble speech or swallowing. She denies chest pressure or tightness. Denies shortness of breath, dyspnea exertion, orthopnea or PND. She has no other complaints. Prior Similar Symptoms: Yes (Atrial fibrillation) Recent Illness/Hospitalization: Yes CVD Risk Factors: Positive for Hypertension and Hypercholesterolemia; Negative for Family History 1' </=55 and Smoking PE Risk Factors: Negative for Recent Travel/Surgery, Recent Immobilization, Prior DVT or PE, Cancer and OCP + Smoking + >/=35 TAD Risk Factors: Positive for Hypertension; Negative for Marfan's Syndrome and Family [facility] History Atrial fibrillation Endometrial cancer Hernia Mitral and aortic valve disease Neuropathy Home Medications Caltrate 600-D Plus Minerals 1 ea PO DAILY 05/21/18 [History Last Taken 05/29/18] Paco Matrix 5000 1 ea PO DAILY 05/21/18 [History Last Taken 05/29/18] acetaminophen 650 mg PO Q4H PRN 05/21/18 [History Last Taken Unknown] alendronate [Fosamax] 70 mg PO QWEEK 05/21/18 [History Last Taken 05/15/18] cholecalciferol (vitamin D3) [Vitamin D3] 1,000 unit PO DAILY 05/21/18 [History Last Taken 05/29/18] cholestyramine (with sugar) [Questran] 4 g PO DAILY 05/21/18 [History Last Taken 05/29/18 14:30] cyanocobalamin (vitamin B-12) 1,000 mcg SUBLINGUAL DAILY 05/21/18 [History Last Taken 05/29/18 12:00] pramipexole 0.25 mg PO QHS 05/21/18 [History Last Taken 05/28/18] warfarin [Jantoven] 0.5 mg PO DAILY 05/21/18 [History Last Taken 05/28/18] citalopram 10 mg PO DAILY 12/31/20 [History Last Taken Unknown] gabapentin 600 mg PO BID 12/31/20 [History Last Taken Unknown] metoprolol tartrate 50 mg PO BID #1 tab 02/23/21 [Rx Last Taken Unknown] simvastatin 10 mg PO DAILY 02/23/21 [History Last Taken Unknown] Allergy/AdvReac Type Severity Reaction Status Date / Time No Known Allergies Allergy Verified 02/23/21 06:46 Surgical History History of cholecystectomy History of hysterectomy for cancer S/P ablation operation for arrhythmia Social History (Updated 02/23/21 @ 21:[address] Moises Restrepo MD) household members: none Smoking Status: Never smoker alcohol intake: current alcohol intake frequency: other substance use type: does not use ROS ROS ED Constitutional Constitutional ED: Denies chills, fever(s), subjective, sweats or weight loss Eyes Eyes: Reports none ENT ENT ED: Denies ear pain, rhinorrhea or sore throat Cardiovascular Cardiovascular: Reports as per HPI; Denies orthopnea or paroxysmal nocturnal dyspnea Respiratory/Chest Respiratory/Chest: Denies cough, dyspnea, dyspnea on exertion, orthopnea or paroxysmal nocturnal dyspnea Gastrointestinal Gastrointestinal: Denies abdominal pain, diarrhea, nausea or vomiting Genitourinary Genitourinary ED: Denies dysuria, hematuria or urinary frequency Musculoskeletal Musculoskeletal: Denies arthralgias, back pain, myalgias or neck pain Integumentary Denies rash Neurologic Neurologic: Denies headache(s), paresthesias or weakness Psychiatric Psychiatric: Denies depression Endocrine Endocrinology: Denies polydipsia, polyphagia or polyuria Hematologic/Lymphatic Hematologic/Lymphatic: Denies easy bleeding or easy bruising EXAM Physical Exam Const Vital Signs: 02/23/21 20:38 02/23/21 21:33 02/23/21 21:38 Temperature 98.1 F Temperature Source Temporal Pulse Rate 132 H 121 H 121 H Pulse Rate [1 (Initial Baseline)] Respiratory Rate 18 11 L 16 Respiratory Rate [1 (Initial Baseline)] Blood Pressure 126/82 H 120/81 H 120/81 H Blood Pressure [1 (Initial Baseline)] Blood Pressure Mean 96 Pulse Ox 96 97 97 Oxygen Delivery Method Room Air Room Air Room Air Oxygen Delivery Method [1 (Initial Baseline)] Oxygen Flow Rate (L/min) Oxygen Flow Rate (L/min) [1 (Initial Baseline)] 02/23/21 21:40 02/23/21 21:45 02/23/21 21:50 Temperature Temperature Source Pulse Rate 69 72 Pulse Rate [1 (Initial Baseline)] 135 H Respiratory Rate 17 16 Respiratory Rate [1 (Initial Baseline)] 21 H Blood Pressure 137/63 H 113/62 Blood Pressure [1 (Initial Baseline)] 121/91 H Blood Pressure Mean Pulse Ox 97 97 Oxygen Delivery Method Nasal Cannula Nasal Cannula Oxygen Delivery Method [1 (Initial Baseline)] Nasal Cannula Oxygen Flow Rate (L/min) 2 2 Oxygen Flow Rate (L/min) [1 (Initial Baseline)] 2 Positive well nourished and well developed General Appearance ED: well developed and NAD; Negative for pallor HEENT Reports TM's clear and moist mucous membranes normocephalic and atraumatic Tympanic Membrane ED: Yes TM's clear Eyes PERRL and EOMs intact bilaterally General Eye ED: Negative for pale conjunctiva or scleral icterus Neck no lymphadenopathy, supple and no JVD Resp normal respiratory effort Effort and Inspection: respiratory distress Cardio no murmurs Rate: tachycardic Peripheral Pulses: pulses 2+ throughout GI normal to inspection, nondistended, normoactive bowel sounds, soft to palpation, non-tender and non-distended Back/Spine no CVA tenderness; Negative for no thoracic nor lumbar tenderness Cervical Spine: Negative for cervical spine tenderness Extremity normal to inspection General Extremety ED: Negative for edema, pulses abnormal or tenderness General Extremity: Negative for edema or pulses abnormal Neuro oriented x3, CN's II-XII intact bilaterally and no sensory deficits noted Sensorium / Orientation: awake and alert Motor Exam: strength 5/5 throughout Psych mental status grossly normal Skin no rashes or lesions noted and no wounds General Skin Exam: Negative for jaundice or pallor MDM MDM MDM Narrative Medical decision making narrative: Monitor reveals atrial fibrillation with a ventricular rate of 1 25-1 35. Plan is procedural sedation and cardioversion since she has not had any eat or drink since 1500 and INR was 3.2 earlier this morning. EKG Initial EKG: Attestation: I personally reviewed and interpreted this EKG as follows: Interpretation: Sinus Rhythm (Sinus rhythm with a ventricular rate of 63 and a first-degree AV block. Cures duration 88 ms. QT duration 418 ms. Calhoun is normal. There is minimal nonspecific changes noted.) and - (Atrial flutter with a ventricular rate of 129. Cures duration 88 ms. QT durations are 20 ms. Calhoun is normal. I disagree with the interpretation by the computer.) Procedures Other Procedures Procedure(s): 1 sedation using propofol 2 cardioversion Patient was explained risk benefits of deep sedation using propofol. She denies allergy to soy or egg products. She was informed of the risks involved. She given opportunity ask questions and none were asked. Patient states she has been cardioverted in the past. She had no questions regarding cardioversion. Timeout was called. Start time 2141 end time 2145. Patient received a total of 50 mg propofol. Once desired effect was achieved she was cardioverted using 150 J. At the time of the timeout she was in a flutter with 2-1 block and heart rate of 136. Post cardioversion sinus rhythm rate of 62. EKG was ordered. Discharge Plan Triage Chief Complaint: Palpitations ED Provider: Moises Restrepo Dx/Rx/DC Orders Clinical Impression: Atrial flutter Instructions: ED Atrial Flutter, ED Cardioversion, Electrical Prescriptions: No Action acetaminophen 325 MG tablet 650 mg PO Q4H PRN (Reason: Pain) RF: 0 alendronate [Fosamax] 70 MG tablet 70 mg PO QWEEK RF: 0 pramipexole 0.25 MG tablet 0.25 mg PO QHS RF: 0 cyanocobalamin (vitamin B-12) 1,000 MCG tablet, sublingual 1,000 mcg sublingual DAILY RF: 0 warfarin [Jantoven] 1 MG tablet 0.5 mg PO DAILY RF: 0 cholestyramine (with sugar) [Questran] 4 GM powder in packet 4 g PO DAILY RF: 0 cholecalciferol (vitamin D3) [Vitamin D3] 1,000 UNIT tablet 1,000 unit PO DAILY RF: 0 Caltrate 600-D Plus Minerals 1 EACH tablet 1 ea PO DAILY RF: 0 Lacrosse Matrix 5000 1 EACH tablet extended release 1 ea PO DAILY RF: 0 gabapentin 300 mg capsule 600 mg PO BID RF: 0 citalopram 10 mg tablet 10 mg PO DAILY RF: 0 simvastatin 10 mg tablet 10 mg PO DAILY RF: 0 metoprolol tartrate 50 MG tablet 50 mg PO BID Qty: 1 RF: 0 Primary Care Provider: Care Physician,No Primary Referrals: Sebastian Perez MD [NON-STAFF] - [facility] appointment Care Physician,No Primary [Primary Care Provider] - Disposition Disposition: Home, Self Care
--- NOTE | 2021-02-23 21:45 | EKG12_ITS ---
Test Reason : POST CV Blood Pressure : / mmHG Vent. Rate : 063 BPM Atrial Rate : 241 BPM P-R Int : 000 ms QRS Dur : 088 ms QT Int : 418 ms P-R-T Axes : 000 042 051 degrees QTc Int : 427 ms Normal sinus rhythm Nonspecific ST abnormality Abnormal ECG Confirmed by ANTHONY WARD, LAMONT ([id number]), industrial editor NIK ROPER ([id number]) on 02/26/2021 12:21:15 PM Referred By: TEJA Confirmed By:LAMONT CRUZ MD
[2021-02-23] MEDS: Propofol 200 MG/20 ML Vial IV BOLUS (21:52)
== END 2021-02-23 22:31 | disposition home or self-care (01) ==
PROVIDERS: Emergency Provider Emergency Medicine
DX: I48.91 Unspecified atrial fibrillation (principal); I48.92 Unspecified atrial flutter; R79.1 Abnormal coagulation profile; T45.515A Adverse effect of 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s, initial encounter; Y92.9 Unspecified place or not applicable; I10 Essential (primary) hypertension; E78.00 Pure hypercholesterolemia, unspecified; Z79.01 Long term (current) use of 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s; Z79.899 Other long term (current) drug therapy; Z85.42 Personal history of malignant neoplasm of other parts of uterus; Z95.2 Presence of prosthetic heart valve
CPT/HCPCS: 36415; 80048; 84484; 85025; 85610; 92960; 93005; 96374; 96375; 96376; 99284; 99285; J7030; A4216

== ENCOUNTER 2021-03-19 15:39 | Outpatient (RCR) | payer MEDICARE, SELFPAY ==
[2021-03-03 05:02] VITALS: BMI 26.7
[2021-03-19 15:50] LABS: INR Fingerstick 2.1; Prothrombin Time Fingerstick 23.9 SEC (11.9-14.4)
== END 2021-04-02 18:00 | disposition home or self-care (01) ==
LOC: LAB 15:39
PROVIDERS: Referring Provider Internal Medicine Cardiovascular Disease; Visit Provider Internal Medicine Cardiovascular Disease
DX: I48.0 Paroxysmal atrial fibrillation (principal); Z95.3 Presence of xenogenic heart valve
CPT/HCPCS: 36416; 85610

== ENCOUNTER 2021-03-30 09:49 | Emergency (ER) | payer MEDICARE, SELFPAY ==
[2021-03-30] VITALS (8 sets, daily range): BP systolic 99–138; BP diastolic 51–70; PULSE 56–117; RESP 12–27; TEMP 36.4; O2SAT 93–98; BMI 27.8
--- NOTE | 2021-03-30 10:14 | EKG12_ITS ---
Test Reason : PALPS Blood Pressure : / mmHG Vent. Rate : 113 BPM Atrial Rate : 111 BPM P-R Int : 000 ms QRS Dur : 086 ms QT Int : 344 ms P-R-T Axes : 000 068 056 degrees QTc Int : [address] & T wave abnormality, consider anterior ischemia Abnormal ECG Confirmed by ANTHONY WARD, LAMONT ([id number]), telegraph editor NIK ROPER ([id number]) on 04/02/2021 8:50:00 AM Referred By: KAREN/FABIAN Confirmed By:LAMONT CRUZ MD
--- NOTE | 2021-03-30 10:16 | EDS_ITS ---
HPI History of Present Illness Chief Complaint: Palpitations Informant: patient and family Narrative Narrative: 80-year-old female with longstanding history of paroxysmal A. fib follows with Dr. Perez in [place]. She tells me that last night around midnight she felt herself going to atrial fibrillation. She took a flecainide which did not relieve her A. fib so this morning she came to emergency. She is on Coumadin last time she had her INR checked was about 2 weeks ago. She notes at that time was 2.1. She was seen in December and had a cardioversion and was seen at the end of last month for cardioversion. Patient feels generalized fatigue with this. [facility] Medical History Atrial fibrillation Endometrial cancer Hernia Mitral and aortic valve disease Neuropathy Home Medications Caltrate 600-D Plus Minerals 1 ea PO DAILY 05/21/18 [History Last Taken 05/29/18] Paco Matrix 5000 1 ea PO DAILY 05/21/18 [History Last Taken 05/29/18] acetaminophen 650 mg PO Q4H PRN 05/21/18 [History Last Taken Unknown] alendronate [Fosamax] 70 mg PO QWEEK 05/21/18 [History Last Taken 05/15/18] cholecalciferol (vitamin D3) [Vitamin D3] 1,000 unit PO DAILY 05/21/18 [History Last Taken 05/29/18] cholestyramine (with sugar) [Questran] 4 g PO DAILY 05/21/18 [History Last Taken 05/29/18 14:30] cyanocobalamin (vitamin B-12) 1,000 mcg SUBLINGUAL DAILY 05/21/18 [History Last Taken 05/29/18 12:00] pramipexole 0.25 mg PO QHS 05/21/18 [History Last Taken 05/28/18] warfarin [Jantoven] 0.5 mg PO DAILY 05/21/18 [History Last Taken 05/28/18] citalopram 10 mg PO DAILY 12/31/20 [History Last Taken Unknown] gabapentin 600 mg PO BID 12/31/20 [History Last Taken Unknown] metoprolol tartrate 50 mg PO BID #1 tab 02/23/21 [Rx Last Taken Unknown] simvastatin 10 mg PO DAILY 02/23/21 [History Last Taken Unknown] flecainide 50 mg PO PRN PRN 03/30/21 [History Last Taken Unknown] Allergy/AdvReac Type Severity Reaction Status Date / Time sertraline [From Zoloft] AdvReac Other Verified 03/30/21 09:55 Surgical History History of cholecystectomy History of hysterectomy for cancer S/P ablation operation for arrhythmia Social History household members: none Smoking Status: Never smoker alcohol intake: current alcohol intake frequency: other substance use type: does not use ROS ROS ED Constitutional Constitutional ED: Denies chills, fever(s) or weight loss Eyes Eyes: Denies change in vision or diplopia ENT ENT ED: Denies ear pain, rhinorrhea or sore throat Cardiovascular Cardiovascular: Reports palpitations and racing heartbeat; Denies chest pain or orthopnea Respiratory/Chest Respiratory/Chest: Denies cough, dyspnea or orthopnea Gastrointestinal Gastrointestinal: Denies abdominal pain, diarrhea, nausea or vomiting Genitourinary Genitourinary ED: Denies dysuria, hematuria or urinary frequency Musculoskeletal Musculoskeletal: Denies arthralgias or myalgias Integumentary Denies abscess or rash Neurologic Neurologic: Denies headache(s) or weakness Psychiatric Psychiatric: Denies anxiety, depression, suicidal ideation or suicidal thoughts Endocrine Endocrinology: Denies polydipsia, polyphagia or polyuria Allergic/Immunologic Allergic/Immunologic ED: Denies mouth swelling, tongue swelling or urticaria EXAM Physical Exam Const Vital Signs: 03/30/21 09:51 03/30/21 10:30 03/30/21 11:29 Temperature 97.6 F L Temperature Source Temporal Pulse Rate 115 H 117 H Pulse Rate [1 (Initial Baseline)] Pulse Rate [2] Respiratory Rate 16 Respiratory Rate [1 (Initial Baseline)] Respiratory Rate [2] Respiratory Effort Normal Non-Labored Blood Pressure 102/59 L 99/65 Blood Pressure [1 (Initial Baseline)] Blood Pressure [2] Blood Pressure Mean 73 76 Pulse Ox 94 95 Oxygen Delivery Method Room Air Oxygen Delivery Method [1 (Initial Baseline)] Oxygen Delivery Method [2] Oxygen Delivery Method [3] Oxygen Flow Rate (L/min) Oxygen Flow Rate (L/min) [1 (Initial Baseline)] Oxygen Flow Rate (L/min) [2] 03/30/21 11:31 03/30/21 11:38 03/30/21 11:44 Temperature Temperature Source Pulse Rate 111 H 61 Pulse Rate [1 (Initial Baseline)] 114 H Pulse Rate [2] 64 Respiratory Rate 16 21 H Respiratory Rate [1 (Initial Baseline)] 27 H Respiratory Rate [2] 12 Respiratory Effort Blood Pressure 99/65 130/65 H Blood Pressure [1 (Initial Baseline)] 99/65 Blood Pressure [2] 138/70 H Blood Pressure Mean Pulse Ox 95 96 Oxygen Delivery Method Room Air Nasal Cannula Oxygen Delivery Method [1 (Initial Baseline)] Nasal Cannula Oxygen Delivery Method [2] Nasal Cannula Oxygen Delivery Method [3] Nasal Cannula Oxygen Flow Rate (L/min) 4 Oxygen Flow Rate (L/min) [1 (Initial Baseline)] 2 Oxygen Flow Rate (L/min) [2] 4 Positive well nourished and well developed General Appearance ED: well developed HEENT Reports normocephalic, head/scalp atraumatic and moist mucous membranes Eyes PERRL and EOMs intact bilaterally Neck no lymphadenopathy, supple and no JVD Resp normal respiratory effort and clear to auscultation bilaterally Cardio no murmurs Rate: tachycardic Rhythm: abnormal rhythm irregularly irregular GI normal to inspection, nondistended, normoactive bowel sounds and non-tender Palpation: soft Back/Spine no CVA tenderness and normal ROM Extremity normal to inspection Extremity Narrative: Normal capillary refill General Extremety ED: Negative for edema General Extremity: Negative for edema Neuro oriented x3 and CN's II-XII intact bilaterally Sensorium / Orientation: alert Motor Exam: strength 5/5 throughout Psych mental status grossly normal Mood & Affect: Negative for depressed or tearful Skin no rashes or lesions noted and no wounds MDM MDM MDM Narrative Medical decision making narrative: My interpretation of the chest x-ray is no acute disease. CBC is normal. BMP showed normal electrolytes. INR is supratherapeutic at 3.4. Troponin is 83 which I think is most likely type II due to demand ischemia. Patient provided informed consent for the use of etomidate for procedural sedation. Patient was placed on the monitor given supplemental oxygen. Timeout was performed. Medication was given at 1138. Once adequate sedation was achieved a 200 J synchronized shock was delivered resulted in return to a normal sinus rhythm. End of procedure is 1146. Patient was allowed to recover wit hout incident. She will be observed and if remains in a sinus rhythm will be discharged home Lab Data Attestation: I reviewed the patient's lab results. Labs: Laboratory Results - last 24 hr 03/30/21 03/30/21 03/30/21 10:20 10:20 10:20 WBC 5.5 RBC 4.53 Hgb 14.3 Hct 40.9 MCV 90.3 MCH 31.6 MCHC 35.0 RDW Std Deviation 43.1 RDW Coeff of Zulma 13.1 Plt Count 194 MPV 8.6 Immature Gran % (Auto) 0.400 Neut % (Auto) 61.5 Lymph % (Auto) 23.3 [place] % (Auto) 10.3 H Eos % (Auto) 2.9 Baso % (Auto) 1.6 H Absolute Neuts (auto) 3.4 Absolute Lymphs (auto) 1.29 Nucleated RBC % 0 PT 33.5 H INR 3.4 Sodium 141 Potassium 3.7 Chloride 112 H Carbon Dioxide 23.0 Anion Gap 6 BUN 18 Creatinine 1.00 Estim Creat Clear Calc 36.67 Est GFR (MDRD) Af Amer 69 Est GFR (MDRD) Non-Af 57 L BUN/Creatinine Ratio 18.1 Glucose 111 H Calcium 8.7 Troponin I High Sens 83 H Radiography Diagnostic Testing: Clinical Impression(s) from Imaging Studies Chest X-Ray 03/30/21 10:30 IMPRESSION: Status post CABG. No active pulmonary disease. Electronically Signed: Jose Kumar, at 11:04 EST Tel , Service support , EKG Initial EKG: Attestation: I personally reviewed and interpreted this EKG as follows: Comments: Atrial fibrillation with rapid ventricular response with a rate of 113. Discharge Plan Triage Chief Complaint: Palpitations ED Provider: Adalid Sawant Dx/Rx/DC Orders Clinical Impression: Paroxysmal atrial fibrillation with rapid ventricular response Instructions: ED AFIB Prescriptions: No Action acetaminophen 325 MG tablet 650 mg PO Q4H PRN (Reason: Pain) RF: 0 alendronate [Fosamax] 70 MG tablet 70 mg PO QWEEK RF: 0 pramipexole 0.25 MG tablet 0.25 mg PO QHS RF: 0 cyanocobalamin (vitamin B-12) 1,000 MCG tablet, sublingual 1,000 mcg sublingual DAILY RF: 0 warfarin [Jantoven] 1 MG tablet 0.5 mg PO DAILY RF: 0 cholestyramine (with sugar) [Questran] 4 GM powder in packet 4 g PO DAILY RF: 0 cholecalciferol (vitamin D3) [Vitamin D3] 1,000 UNIT tablet 1,000 unit PO DAILY RF: 0 Caltrate 600-D Plus Minerals 1 EACH tablet 1 ea PO DAILY RF: 0 Paco Matrix 5000 1 EACH tablet extended release 1 ea PO DAILY RF: 0 gabapentin 300 mg capsule 600 mg PO BID RF: 0 citalopram 10 mg tablet 10 mg PO DAILY RF: 0 simvastatin 10 mg tablet 10 mg PO DAILY RF: 0 metoprolol tartrate 50 MG tablet 50 mg PO BID Qty: 1 RF: 0 flecainide 50 mg tablet 50 mg PO PRN PRN (Reason: Cardiac Arrhythmia) RF: 0 Referrals: KEYLA VALLECILLO [Other] Activity Restrictions/Additional Instructions: Please call Dr. Perez's office on Thursday to arrange follow-up to discuss the reoccurrences of your A. fib. Disposition Disposition: Home, Self Care
[2021-03-30] MEDS: Aspirin 81 MG TAB.CHEW 324 MG PO (10:28)
--- NOTE | 2021-03-30 10:30 | RAD_ITS ---
STUDY: X-RAY CHEST REASON FOR EXAM: Female, 80 years old. Chest pain TECHNIQUE: Single AP portable view of the chest. COMPARISON: 12/31/2020. FINDINGS: The lungs are clear and expanded. There is no demonstrated pleural abnormality. Sternal cerclage wires and vascular clips are present from a prior sternotomy and coronary artery bypass graft procedure (CABG). Atrial appendage clip is again seen. Borderline cardiac silhouette. Normal mediastinum and elana. Normal visualized pulmonary arteries. There is atherosclerotic tortuosity of the aortic arch and descending thoracic aorta. Stable osseous structures. There is no demonstrated abnormality of the visualized soft tissue structures of the upper abdomen. RAD/Chest 1 View (Portable) IMPRESSION: Status post CABG. No active pulmonary disease. Electronically Signed: Jose Kumar, at 11:04 EST Tel , Service support ,
[2021-03-30 10:33] LABS: Absolute Lymphocyte Count 1.29 X10^3/uL (0.83-4.51); Absolute Neutrophil Count 3.4 X10^3/uL (2.0-7.7); Basophil# 0.09 X10^3/uL; Basophil% 1.6 % (0-1); Eosinophil# 0.16 X10^3/uL; Eosinophils% 2.9 % (0-5); Hematocrit 40.9 % (37-47); Hemoglobin 14.3 g/dL (12.0-15.0); Lymphocyte # 1.29 X10^3/ul (0.83-4.51); Lymphocyte % 23.3 % (19-41); Mean Corpuscular Hgb 31.6 pg (27.0-32.0); Mean Corpuscular Volume 90.3 fL (81-99); Mean Platelet Vol. 8.6 fl (6.2-12.0); Monocyte# 0.57 X10^3/uL; Monocyte% 10.3 % (0-10); NRBC Flagged by Analyzer 0 % (0-5); Neutrophil # 3.41 X10^3/uL (2.7-7.7); Neutrophil % 61.5 % (47-70); Platelet Count 194 K/mm3 (150-450); RBC Distribution Width CV 13.1 % (11.6-14.6); RBC Distribution Width SD 43.1 fl (35.1-43.9); Red Blood Count 4.53 M/mm3 (4.2-5.4); White Blood Count 5.5 K/mm3 (4.4-11.0)
[2021-03-30 10:38] LABS: International Normalized Ratio 3.4; Prothrombin Time (Protime)PT. 33.5 SECONDS (11.7-14.9)
[2021-03-30 11:06] LABS: Anion Gap 6 (5-15); BUN 18 mg/dL (7-18); BUN/Creat Ratio 18.1 RATIO (10-20); Calcium,Total 8.7 mg/dL (8.5-10.1); Chloride 112 mmol/L (98-107); EST Glomerular Filtration Rate 57 mL/min (>60); Est Glom Filt Rate - Afr Amer 69 mL/min (>60); Estimated Creatinine Clearance 36.67 ml/min; Glucose 111 mg/dL (74-106); Potassium 3.7 mmol/L (3.5-5.1); Sodium Level 141 mmol/L (136-145); Troponin-I HS 83 pg/mL (3.0-54.0)
[2021-03-30] MEDS: Etomidate 20 MG/10 ML Vial 10 MG IV (11:38)
--- NOTE | 2021-03-30 11:50 | EKG12_ITS ---
Test Reason : POST CARDIOVERSION Blood Pressure : / mmHG Vent. Rate : 054 BPM Atrial Rate : 054 BPM P-R Int : 192 ms QRS Dur : 088 ms QT Int : 444 ms P-R-T Axes : -44 051 055 degrees QTc Int : 421 ms Possible ectopic atrial bradycardia Nonspecific ST abnormality Abnormal ECG Confirmed by ANTHONY WARD, LAMONT ([id number]), editorial manager NIK ROPER ([id number]) on 04/02/2021 8:51:37 AM Referred By: FABIAN Confirmed By:LAMONT CRUZ MD
== END 2021-03-30 12:31 | disposition home or self-care (01) ==
PROVIDERS: Emergency Provider Emergency Medicine
DX: I48.0 Paroxysmal atrial fibrillation (principal); G62.9 Polyneuropathy, unspecified; Z79.01 Long term (current) use of 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s; Z79.899 Other long term (current) drug therapy; Z85.42 Personal history of malignant neoplasm of other parts of uterus; Z95.1 Presence of aortocoronary bypass graft
CPT/HCPCS: 71045; 80048; 84484; 85025; 85610; 92960; 93005; 99284; J7030; A4216

== ENCOUNTER 2021-04-19 14:18 | Outpatient (RCR) | payer MEDICARE, SELFPAY ==
[2021-04-03 03:44] VITALS: BMI 26.7
[2021-04-12 14:45] LABS: INR Fingerstick 4.7; Prothrombin Time Fingerstick 50.5 SEC (11.9-14.4)
[2021-04-12 15:10] LABS: International Normalized Ratio 4.5; Prothrombin Time (Protime)PT. 41.6 SECONDS (11.7-14.9)
[2021-04-19 14:30] LABS: INR Fingerstick 1.8; Prothrombin Time Fingerstick 20.4 SEC (11.9-14.4)
== END 2021-05-04 18:00 | disposition home or self-care (01) ==
LOC: LAB 14:18
PROVIDERS: Referring Provider Internal Medicine Cardiovascular Disease; Visit Provider Internal Medicine Cardiovascular Disease
DX: I48.0 Paroxysmal atrial fibrillation (principal); Z95.3 Presence of xenogenic heart valve
CPT/HCPCS: 36415; 36416; 85610

== ENCOUNTER 2021-05-05 18:46 | Emergency (ER) | payer MEDICARE, SELFPAY ==
[2021-05-05 18:47] VITALS: BP 135/70; PULSE 170; RESP 20; TEMP 36.6; O2SAT 99; BMI 28.3
--- NOTE | 2021-05-05 19:01 | EKG12_ITS ---
Test Reason : CP Blood Pressure : / mmHG Vent. Rate : 155 BPM Atrial Rate : 156 BPM P-R Int : 000 ms QRS Dur : 160 ms QT Int : 304 ms P-R-T Axes : 000 078 068 degrees QTc Int : 488 ms SUPRAVENTRICULAR TACHYCARDIA Non-specific intra-ventricular conduction block ABNORMAL ECG Confirmed by ANTHONY AWRD, LAMONT ([id number]), editor dictionary KOLBY STANFORD ([id number]) on 05/08/2021 11:11:21 AM Referred By: PL Confirmed By:LAMONT CRUZ MD
--- NOTE | 2021-05-05 19:10 | RAD_ITS ---
STUDY: X-RAY CHEST REASON FOR EXAM: Female, 80 years old. chest pain TECHNIQUE: AP COMPARISON: None. FINDINGS: EKG leads project over the chest. The lungs are clear and expanded. There is no demonstrated pleural abnormality. Normal size heart. Sternal wires and mediastinal surgical clips compatible with prior CABG. Atrial appendage clip Normal mediastinum and elana. Normal visualized pulmonary arteries. There is atherosclerotic tortuosity of the aortic arch and descending thoracic aorta. Normal visualized thoracic spine. Normal visualized ribs, clavicles, and shoulders. There is no demonstrated abnormality of the visualized soft tissue structures of the upper abdomen. RAD/Chest 1 View (Portable) IMPRESSION: Nonacute portable x-ray examination of the chest. Electronically Signed: Memo Hurd MD ([place]oks) at 19:33 EST , Service support ,
[2021-05-05 19:11] LABS: Absolute Lymphocyte Count 1.57 X10^3/uL (0.83-4.51); Basophil% 1.9 % (0-1); Eosinophil# 0.15 X10^3/uL; Eosinophils% 2.8 % (0-5); Hematocrit 39.8 % (37-47); Lymphocyte # 1.57 X10^3/ul (0.83-4.51); Lymphocyte % 29.5 % (19-41); Mean Corp Hgb Conc 35.2 g/dL (32-36); Mean Corpuscular Hgb 30.6 pg (27.0-32.0); Mean Corpuscular Volume 87.1 fL (81-99); Mean Platelet Vol. 8.7 fl (6.2-12.0); Monocyte# 0.48 X10^3/uL; NRBC Flagged by Analyzer 0 % (0-5); Neutrophil # 3.02 X10^3/uL (2.7-7.7); Neutrophil % 56.6 % (47-70); Platelet Count 194 K/mm3 (150-450); RBC Distribution Width CV 12.7 % (11.6-14.6); RBC Distribution Width SD 40.2 fl (35.1-43.9); Red Blood Count 4.57 M/mm3 (4.2-5.4); White Blood Count 5.3 K/mm3 (4.4-11.0)
[2021-05-05 19:26] LABS: International Normalized Ratio 2.9; Prothrombin Time (Protime)PT. 29.8 SECONDS (11.7-14.9)
[2021-05-05 19:34] LABS: Anion Gap 5 (5-15); BUN 16 mg/dL (7-18); Calcium,Total 8.9 mg/dL (8.5-10.1); Chloride 112 mmol/L (98-107); Creatinine, Serum 0.84 mg/dL (0.55-1.02); EST Glomerular Filtration Rate 70 mL/min (>60); Est Glom Filt Rate - Afr Amer 84 mL/min (>60); Estimated Creatinine Clearance 43.66 ml/min; Glucose 105 mg/dL (74-106); Potassium 3.9 mmol/L (3.5-5.1); Sodium Level 141 mmol/L (136-145); Troponin-I HS 76 pg/mL (3.0-54.0)
[2021-05-05 20:20] LABS: Magnesium 1.8 mg/dL (1.6-2.6)
[2021-05-05 20:47] VITALS: BP 104/76; PULSE 155; RESP 16; O2SAT 99
[2021-05-05 21:00] VITALS: BP 131/100; PULSE 160; RESP 19; O2SAT 96
[2021-05-05] MEDS: Flecainide 100 MG Tablet 200 MG PO (21:14)
[2021-05-05 21:15] VITALS: O2SAT 99
[2021-05-05 22:00] VITALS: PULSE 93; RESP 16; O2SAT 100
--- NOTE | 2021-05-05 22:24 | ED.VIS.CHEST ---
HPI History of Present Illness Chief Complaint: Chest Pain Narrative Narrative: 80-year-old female with history of atrial fibrillation presenting with palpitations. She states this started earlier in the day. She states that she takes metoprolol 50 mg p.o. twice daily and for breakthrough palpitations she is supposed to take flecainide 50 mg. She has taken 2 doses of this and it has not improved significantly. She does state it has improved some and she went from the 180s to the 150s. Patient does not have chest pressure and she does not feel short of breath. She is not had any fever or cough. She states prior to this she felt otherwise well. She states she has been cardioverted in the past in the ER but she does always seem to have breakthrough with A. fib. She is seen an interpersonal communications professor with [facility] and he has one that prescribes with the flecainide. He has talked about possibly putting a pacemaker in her if he continues to have this. [facility] Medical History Atrial fibrillation Endometrial cancer Hernia Mitral and aortic valve disease Neuropathy Home Medications Caltrate 600-D Plus Minerals 1 ea PO DAILY 05/21/18 [History Last Taken 05/29/18] Paco Matrix 5000 1 ea PO DAILY 05/21/18 [History Last Taken 05/29/18] acetaminophen 650 mg PO Q4H PRN 05/21/18 [History Last Taken Unknown] alendronate [Fosamax] 70 mg PO QWEEK 05/21/18 [History Last Taken 05/15/18] cholecalciferol (vitamin D3) [Vitamin D3] 1,000 unit PO DAILY 05/21/18 [History Last Taken 05/29/18] cholestyramine (with sugar) [Questran] 4 g PO DAILY 05/21/18 [History Last Taken 05/29/18 14:30] cyanocobalamin (vitamin B-12) 1,000 mcg SUBLINGUAL DAILY 05/21/18 [History Last Taken 05/29/18 12:00] pramipexole 0.25 mg PO QHS 05/21/18 [History Last Taken 05/28/18] warfarin [Jantoven] 0.5 mg PO DAILY 05/21/18 [History Last Taken 05/28/18] citalopram 10 mg PO DAILY 08/30/21 [History Last Taken Unknown] gabapentin 600 mg PO BID 12/31/20 [History Last Taken Unknown] metoprolol tartrate 50 mg PO BID #1 tab 02/23/21 [Rx Last Taken Unknown] simvastatin 10 mg PO DAILY 02/23/21 [History Last Taken Unknown] flecainide 50 mg PO PRN PRN 03/30/21 [History Last Taken Unknown] Allergy/AdvReac Type Severity Reaction Status Date / Time sertraline [From Zoloft] AdvReac Other Verified 05/05/21 18:50 Surgical History History of cholecystectomy History of hysterectomy for cancer S/P ablation operation for arrhythmia Social History household members: none Smoking Status: Never smoker alcohol intake: current alcohol intake frequency: other substance use type: does not use ROS ROS ED Constitutional Constitutional ED: Denies chills, fever(s) or sweats Eyes Eyes: Denies blurry vision or change in vision ENT ENT ED: Denies ear pain or sore throat Cardiovascular Cardiovascular: Reports palpitations and racing heartbeat; Denies chest pain Respiratory/Chest Respiratory/Chest: Denies cough, dyspnea or sputum Gastrointestinal Gastrointestinal: Denies abdominal pain, constipation, diarrhea, nausea or vomiting Genitourinary Genitourinary ED: Denies dysuria, hematuria or urinary frequency Musculoskeletal Musculoskeletal: Denies arthralgias, myalgias or neck pain Integumentary Denies abscess, Abrasions or rash Neurologic Neurologic: Denies headache(s), paresthesias or weakness Psychiatric Psychiatric: Denies anxiety, depression, suicidal ideation or suicidal thoughts Endocrine Endocrinology: Denies polydipsia or polyuria EXAM Physical Exam Const Vital Signs: 05/05/21 18:47 05/05/21 20:47 05/05/21 21:00 Temperature 97.8 F Temperature Source Temporal Pulse Rate 170 H 155 H 160 H Respiratory Rate 20 H 16 19 H Respiratory Effort Blood Pressure 135/70 H 104/76 131/100 H Blood Pressure Mean 91 85 110 Pulse Ox 99 99 96 Oxygen Delivery Method Room Air Room Air Room Air 05/05/21 21:15 05/05/21 21:18 05/05/21 22:00 Temperature Temperature Source Pulse Rate 93 Respiratory Rate 16 Respiratory Effort Normal Non-Labored Blood Pressure Blood Pressure Mean Pulse Ox 99 100 Oxygen Delivery Method Room Air Room Air Positive well nourished General Appearance ED: NAD; Negative for pallor HEENT Reports normocephalic, head/scalp atraumatic and moist mucous membranes Eyes PERRL and EOMs intact bilaterally Neck no lymphadenopathy and supple Chest Wall inspection of chest normal and palpation of chest normal Resp normal respiratory effort and clear to auscultation bilaterally Auscultation: Negative for rales, rhonchi or wheezes Cardio regular rhythm Rate: tachycardic GI normal to inspection, nondistended, normoactive bowel sounds and non-distended Auscultation: normoactive bowel sounds Palpation: soft Narrative: Deferred Extremity normal to inspection General Extremety ED: Yes edema and tenderness General Extremity: edema Neuro oriented x3 and CN's II-XII intact bilaterally Sensorium / Orientation: alert Motor Exam: strength 5/5 throughout Psych mental status grossly normal Attitude: No agitated Skin no rashes or lesions noted and no wounds General Skin Exam: Negative for jaundice or pallor MDM MDM MDM Narrative Medical decision making narrative: Presenting with palpitations. Her initial EKG interpreted by myself looks like atrial fibrillation with a ventricular rate of 155 bpm. I did review this with Dr. Segovia. She recommended giving 200 mg of flecainide and monitoring her while giving her some magnesium. I obtained lab work and this was performed. CBC and BMP are unremarkable. High-sensitivity troponin is 76 and this is actually lower than it was on her last visit. She does not appear to be having chest pain but more so is having palpitations. INR is therapeutic at 2.9. Patient's heart rate slightly came down to about 100. She feels improved. Patient still getting magnesium infusion. Patient was signed out incoming ED physician for monitoring and ultimately if this should be discharged home. Impression: 1. Atrial fibrillation with RVR resolved Lab Data Labs: Laboratory Results - last 24 hr 05/05/21 05/05/21 05/05/21 19:00 19:00 19:00 WBC 5.3 RBC 4.57 Hgb 14.0 Hct 39.8 MCV 87.1 MCH 30.6 MCHC 35.2 RDW Std Deviation 40.2 RDW Coeff of Zulma 12.7 Plt Count 194 MPV 8.7 Immature Gran % (Auto) 0.200 Neut % (Auto) 56.6 Lymph % (Auto) 29.5 [place] % (Auto) 9.0 Eos % (Auto) 2.8 Baso % (Auto) 1.9 H Absolute Neuts (auto) 3.0 Absolute Lymphs (auto) 1.57 Nucleated RBC % 0 PT 29.8 H INR 2.9 Sodium 141 Potassium 3.9 Chloride 112 H Carbon Dioxide 24.0 Anion Gap 5 BUN 16 Creatinine 0.84 Estim Creat Clear Calc 43.66 Est GFR (MDRD) Af Amer 84 Est GFR (MDRD) Non-Af 70 BUN/Creatinine Ratio 19.0 Glucose 105 Calcium 8.9 Magnesium Troponin I High Sens 76 H 05/05/21 19:00 WBC RBC Hgb Hct MCV MCH MCHC RDW Std Deviation RDW Coeff of Zulma Plt Count MPV Immature Gran % (Auto) Neut % (Auto) Lymph % (Auto) [place] % (Auto) Eos % (Auto) Baso % (Auto) Absolute Neuts (auto) Absolute Lymphs (auto) Nucleated RBC % PT INR Sodium Potassium Chloride Carbon Dioxide Anion Gap BUN Creatinine Estim Creat Clear Calc Est GFR (MDRD) Af Amer Est GFR (MDRD) Non-Af BUN/Creatinine Ratio Glucose Calcium Magnesium 1.8 Troponin I High Sens Radiography Diagnostic Testing: Clinical Impression(s) from Imaging Studies Chest X-Ray 05/05/21 19:10 IMPRESSION: Nonacute portable x-ray examination of the chest. Electronically Signed: Memo Hurd MD ([place]) at 19:33 EST , Service support , Discharge Plan Triage Chief Complaint: Chest Pain ED Provider: Wesley Madsen Dx/Rx/DC Orders Instructions: ED AFIB Prescriptions: No Action acetaminophen 325 MG tablet 650 mg PO Q4H PRN (Reason: Pain) RF: 0 alendronate [Fosamax] 70 MG tablet 70 mg PO QWEEK RF: 0 pramipexole 0.25 MG tablet 0.25 mg PO QHS RF: 0 cyanocobalamin (vitamin B-12) 1,000 MCG tablet, sublingual 1,000 mcg sublingual DAILY RF: 0 warfarin [Jantoven] 1 MG tablet 0.5 mg PO DAILY RF: 0 cholestyramine (with sugar) [Questran] 4 GM powder in packet 4 g PO DAILY RF: 0 cholecalciferol (vitamin D3) [Vitamin D3] 1,000 UNIT tablet 1,000 unit PO DAILY RF: 0 Caltrate 600-D Plus Minerals 1 EACH tablet 1 ea PO DAILY RF: 0 [place] Matrix 5000 1 EACH tablet extended release 1 ea PO DAILY RF: 0 gabapentin 300 mg capsule 600 mg PO BID RF: 0 citalopram 10 mg tablet 10 mg PO DAILY RF: 0 simvastatin 10 mg tablet 10 mg PO DAILY RF: 0 metoprolol tartrate 50 MG tablet 50 mg PO BID Qty: 1 RF: 0 flecainide 50 mg tablet 50 mg PO PRN PRN (Reason: Cardiac Arrhythmia) RF: 0 Referrals: KEYLA VALLECILLO [Other] Disposition Disposition: Home, Self Care
[2021-05-06] VITALS: PULSE 129; RESP 16; O2SAT 100
[2021-05-06 00:35] VITALS: BP 112/43; PULSE 58; RESP 15; O2SAT 100
[2021-05-06 01:00] VITALS: BP 112/52; PULSE 60; RESP 16; O2SAT 100
[2021-05-06 01:24] VITALS: BP 110/62; PULSE 60; RESP 15; O2SAT 100
== END 2021-05-06 01:25 | disposition home or self-care (01) ==
PROVIDERS: Emergency Provider Student in an Organized Health Care Education/Training Program; Visit Provider Student in an Organized Health Care Education/Training Program
DX: I48.91 Unspecified atrial fibrillation (principal); Z79.01 Long term (current) use of 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s; Z79.899 Other long term (current) drug therapy; Z85.42 Personal history of malignant neoplasm of other parts of uterus
CPT/HCPCS: 71045; 80048; 83735; 84484; 85025; 85610; 93005; A4216

== ENCOUNTER 2021-05-06 11:12 | Inpatient (IN) | payer MEDICARE, SELFPAY ==
[2021-05-06] VITALS (12 sets, daily range): BP systolic 99–119; BP diastolic 48–98; PULSE 52–170; RESP 12–20; TEMP 36.6–37; O2SAT 95–99; BMI 28.2; BMI 27.8
--- NOTE | 2021-05-06 11:52 | EKG12_ITS ---
Test Reason : PALPS Blood Pressure : / mmHG Vent. Rate : 161 BPM Atrial Rate : 161 BPM P-R Int : 174 ms QRS Dur : 088 ms QT Int : 310 ms P-R-T Axes : 060 086 113 degrees QTc Int : 507 ms SUPRVENTRICULAR TACHYCARDIA Marked ST abnormality, possible lateral subendocardial injury Abnormal ECG Confirmed by BRINA WARD, PITO ([id number]), marketing editor KOLBY STANFORD ([id number]) on 05/08/2021 9:45:28 AM Referred By: RAGHAV/KRIS Confirmed By:PITO GONSALVES MD
--- NOTE | 2021-05-06 11:52 | EX.ED.DYSGE1 ---
HPI History of Present Illness Chief Complaint: Palpitations Narrative Narrative: Patient feels like he in rapid A. fib again for about the past 1.5 hours although initially in the 160s here, now rate is in the 140-150s, and patient does not feel the rapid irregular heartbeat. Similar symptoms to usual, patient has been here multiple times recently, the last one was last night, she took flecainide 50 mg extra last night as instructed by her electrophysiology compliance reviewer, and was seen here in emergency department and slow down. This morning, rapid heartbeat again, but did not take an extra dose of flecainide this morning. Compliant with her medications. Chest soreness associated with these episodes as it is now. No lightheadedness or near syncope this morning or leg pain or swelling. On Coumadin with an INR of 2.9 yesterday. [facility] Medical History Atrial fibrillation Endometrial cancer Hernia Mitral and aortic valve disease Neuropathy Home Medications Caltrate 600-D Plus Minerals 1 ea PO DAILY 05/21/18 [History Last Taken 05/29/18] Paco Matrix 5000 1 ea PO DAILY 05/21/18 [History Last Taken 05/29/18] acetaminophen 650 mg PO Q4H PRN 05/21/18 [History Last Taken Unknown] alendronate [Fosamax] 70 mg PO QWEEK 05/21/18 [History Last Taken 05/15/18] cholecalciferol (vitamin D3) [Vitamin D3] 1,000 unit PO DAILY 05/21/18 [History Last Taken 05/29/18] cholestyramine (with sugar) [Questran] 4 g PO DAILY 05/21/18 [History Last Taken 05/29/18 14:30] cyanocobalamin (vitamin B-12) 1,000 mcg SUBLINGUAL DAILY 05/21/18 [History Last Taken 05/29/18 12:00] pramipexole 0.25 mg PO QHS 05/21/18 [History Last Taken 05/28/18] warfarin [Jantoven] 0.5 mg PO DAILY 05/21/18 [History Last Taken 05/28/18] citalopram 10 mg PO DAILY 12/31/20 [History Last Taken Unknown] gabapentin 600 mg PO BID 12/31/20 [History Last Taken Unknown] metoprolol tartrate 50 mg PO BID #1 tab 02/23/21 [Rx Last Taken Unknown] simvastatin 10 mg PO DAILY 02/23/21 [History Last Taken Unknown] flecainide 50 mg PO PRN PRN 03/30/21 [History Last Taken Unknown] Allergy/AdvReac Type Severity Reaction Status Date / Time sertraline [From Zoloft] AdvReac Other Verified 05/06/21 11:14 Surgical History History of cholecystectomy History of hysterectomy for cancer S/P ablation operation for arrhythmia Social History household members: none Smoking Status: Never smoker alcohol intake: current alcohol intake frequency: other substance use type: does not use ROS ROS ED Constitutional Constitutional ED: Denies chills or fever(s) Eyes Eyes: Denies change in vision or diplopia ENT ENT ED: Denies rhinorrhea or sore throat Cardiovascular Cardiovascular: Reports as per HPI, chest pain and palpitations Respiratory/Chest Respiratory/Chest: Denies cough or dyspnea Gastrointestinal Gastrointestinal: Denies abdominal pain, diarrhea, nausea or vomiting Genitourinary Genitourinary ED: Denies dysuria or hematuria Musculoskeletal Musculoskeletal: Denies back pain or neck pain Integumentary Denies abscess or rash Neurologic Neurologic: Denies headache(s), paresthesias or weakness Psychiatric Psychiatric: Denies anxiety or suicidal thoughts EXAM Physical Exam Const Vital Signs: 05/06/21 11:13 05/06/21 11:43 05/06/21 12:27 Temperature 98.1 F Temperature Source Temporal Pulse Rate 170 H 152 H 56 L Respiratory Rate 16 20 H 16 Blood Pressure 115/79 112/74 106/58 L Blood Pressure Mean 91 86 74 Pulse Ox 99 96 98 Oxygen Delivery Method Room Air Room Air 05/06/21 13:31 05/06/21 14:26 Temperature Temperature Source Pulse Rate 52 L 54 L Respiratory Rate 17 16 Blood Pressure 103/48 L 99/53 L Blood Pressure Mean 66 68 Pulse Ox 98 97 Oxygen Delivery Method Room Air Room Air Positive well nourished and well developed General Appearance ED: well developed and NAD HEENT Reports moist mucous membranes normocephalic and atraumatic Eyes PERRL and EOMs intact bilaterally Neck full ROM and supple Resp normal respiratory effort and clear to auscultation bilaterally Cardio no murmurs Rate: tachycardic Rhythm: abnormal rhythm irregularly irregular GI non-tender and non-distended Auscultation: normoactive bowel sounds Palpation: soft Back/Spine no CVA tenderness General Back: other FROM Extremity normal to inspection and no calf tenderness General Extremety ED: Negative for edema, pulses abnormal or tenderness General Extremity: Negative for edema or pulses abnormal Neuro oriented x3, CN's II-XII intact bilaterally and no sensory deficits noted Sensorium / Orientation: awake and alert Motor Exam: strength 5/5 throughout Skin no rashes or lesions noted and no wounds MDM MDM MDM Narrative Medical decision making narrative: Patient spontaneously converted to sinus rhythm in the 50s prior to being given Cardizem. Her symptoms resolved. Her troponin was barely nonspecifically elevated yesterday, today it is 2490. She is feeling better without chest discomfort now that her palpitations/A. fib has resolved. Repeat EKG shows some anterior T wave inversions but no ST segment elevations. Aspirin and heparin were held due to warfarin coagulopathy with an INR of 2.9 yesterday. Patient sees cardiology Dr. Perez at [facility], and her electrophysical television specialist is there as well, Dr. Luna. Dr. Perez reviewed some records and saw that she had a cardiac catheterization 3 years ago with normal coronaries, and is more concerned about her electrical issue, agreeing that she should be transferred to [facility] because of that reason. I discussed with [facility]. He do not have any beds right now, but I was able to get the patient accepted by Dr. Castro with internal medicine when a bed becomes available which they do not expect will be today at all. They are asking if we admit the patient locally until bed becomes available. Discussed with hospitalist. Lab Data Attestation: I reviewed the patient's lab results. Labs: Laboratory Results - last 24 hr 05/06/21 05/06/21 11:55 11:55 WBC 7.7 RBC 4.72 Hgb 14.5 Hct 42.4 MCV 89.8 MCH 30.7 MCHC 34.2 RDW Std Deviation 41.9 RDW Coeff of Zulma 12.9 Plt Count 210 MPV 8.8 Immature Gran % (Auto) 0.300 Neut % (Auto) 72.6 H Lymph % (Auto) 14.5 L [place] % (Auto) 9.4 Eos % (Auto) 2.0 Baso % (Auto) 1.2 H Absolute Neuts (auto) 5.6 Absolute Lymphs (auto) 1.11 Nucleated RBC % 0 Sodium 142 Potassium 3.8 Chloride 111 H Carbon Dioxide 24.0 Anion Gap 7 BUN 19 H Creatinine 0.88 Estim Creat Clear Calc 41.67 Est GFR (MDRD) Af Amer 79 Est GFR (MDRD) Non-Af 66 BUN/Creatinine Ratio 21.5 H Glucose 125 H Calcium 8.8 Magnesium 2.4 Troponin I High Sens 2490 H* EKG Initial EKG: Attestation: I personally reviewed and interpreted this EKG as follows: Interpretation: No Acute Injury Pattern and Atrial Fibrillation (160's) Follow-up EKG: Attestation: I personally reviewed and interpreted this EKG as follows: Interpretation: Sinus Rhythm (57), No Acute Injury Pattern and Inverted T-Waves (ant) Discharge Plan Dx/Rx/DC Orders Clinical Impression: Atrial fibrillation with rapid ventricular response, Chest pain, Acute non-ST elevation myocardial infarction (NSTEMI), Anticoagulated on warfarin Disposition Disposition: Acute Care Hospital [facility]
--- NOTE | 2021-05-06 12:25 | EKG12_ITS ---
Test Reason : REPEAT Blood Pressure : / mmHG Vent. Rate : 057 BPM Atrial Rate : 084 BPM P-R Int : 000 ms QRS Dur : 092 ms QT Int : 432 ms P-R-T Axes : 000 050 066 degrees QTc Int : 420 ms ECTOPIC ATRIAL RHYTHM Nonspecific ST abnormality Abnormal ECG Confirmed by BRINA WARD, PITO ([id number]), video editor KOLBY STANFORD ([id number]) on 05/08/2021 9:46:41 AM Referred By: RAGHAV Confirmed By:PITO GONSALVES MD
[2021-05-06 12:36] LABS: Absolute Lymphocyte Count 1.11 X10^3/uL (0.83-4.51); Absolute Neutrophil Count 5.6 X10^3/uL (2.0-7.7); Basophil# 0.09 X10^3/uL; Basophil% 1.2 % (0-1); Eosinophil# 0.15 X10^3/uL; Hematocrit 42.4 % (37-47); Hemoglobin 14.5 g/dL (12.0-15.0); Lymphocyte # 1.11 X10^3/ul (0.83-4.51); Lymphocyte % 14.5 % (19-41); Mean Corp Hgb Conc 34.2 g/dL (32-36); Mean Corpuscular Hgb 30.7 pg (27.0-32.0); Mean Corpuscular Volume 89.8 fL (81-99); Mean Platelet Vol. 8.8 fl (6.2-12.0); Monocyte# 0.72 X10^3/uL; Monocyte% 9.4 % (0-10); NRBC Flagged by Analyzer 0 % (0-5); Neutrophil # 5.57 X10^3/uL (2.7-7.7); Neutrophil % 72.6 % (47-70); Platelet Count 210 K/mm3 (150-450); RBC Distribution Width CV 12.9 % (11.6-14.6); RBC Distribution Width SD 41.9 fl (35.1-43.9); Red Blood Count 4.72 M/mm3 (4.2-5.4); White Blood Count 7.7 K/mm3 (4.4-11.0)
[2021-05-06 12:54] LABS: Anion Gap 7 (5-15); BUN 19 mg/dL (7-18); BUN/Creat Ratio 21.5 RATIO (10-20); Calcium,Total 8.8 mg/dL (8.5-10.1); Chloride 111 mmol/L (98-107); Creatinine, Serum 0.88 mg/dL (0.55-1.02); EST Glomerular Filtration Rate 66 mL/min (>60); Est Glom Filt Rate - Afr Amer 79 mL/min (>60); Estimated Creatinine Clearance 41.67 ml/min; Glucose 125 mg/dL (74-106); Magnesium 2.4 mg/dL (1.6-2.6); Potassium 3.8 mmol/L (3.5-5.1); Sodium Level 142 mmol/L (136-145); Troponin-I HS 2490 pg/mL (3.0-54.0)
--- NOTE | 2021-05-06 13:08 | NURSING ---
PAGED DR VALDIVIA [phone]
--- NOTE | 2021-05-06 13:29 | NURSING ---
CALLED [facility] NO BEDS. TRANSFER RN TALKING TO
--- NOTE | 2021-05-06 14:42 | NURSING ---
ACCEPTED AT [facility]. NO BEDS. NEED TO BE ADMITTED HERE UNTIL A BED COMES AVAILABLE
--- NOTE | 2021-05-06 15:05 | CASEMGMT ---
MARCELLA LIZAMA Assessment: [id number] with patient for initial transition planning/care coordination assessment. MARCELLA LIZAMA introduced self and role at [facility]. Patient alert and oriented, able to answer all questions appropriately. Patient's sisterNaina, at bedside. Care providers, pharmacy, and demographics verified. PCP: Dr. España Specialists: Ana- cardiology, Sailaja- Water Taxi Ferry Operator, Kenyetta- ENT, Dr. Marvin Magallon- neurology Preferred Pharmacy: [facility] Prescription Benefit: yes Living Will/HPOA: Patient denies having living will. HPOA is Naina thomas. Patient made aware this form is not on file at [facility] and may be brought in to be scanned into record. LNOK: Naina Thomas Living Arrangements: Patient lives alone in third story apartment with approximately 30-35 steps to enter the home with a railing. Denies difficulty navigating stairs. Patient states independent with ADLs prior to hospitalization. Social: never smoker, denies ETOH use Transportation: Self DME/HHC: Patient wears CPAP at night (no oxygen bled in), supplied by [facility] in [place], [place]. Denies other DME in home or need for equipment. Patient denies previous HHC or SNF stays. Plan: transfer to [facility] when bed available
--- NOTE | 2021-05-06 15:13 | CHAPLAIN ---
Type of Pastoral Visit _x__ Initial Visit ___ Follow-up Visit ___ On-call Visit ___ General Patient Visit ___ Spiritual Assessment ___ Family Conference ___ Bereavement ___ Rapid Response ___ Code Blue ___ Other (describe below) Pastoral Care Referral From _x__ Patient ___ Family ___ Nurse ___ Physician ___ Photographic Equipment Inspector ___ Ammonium Nitrate Neutralizer ___ Other (describe below) Sacrament/Intervention _x__ Active listening ___ Anointing ___ Islam ___ Bereavement ___ Communion ___ [place] exploration ___ _x__ Life review _x__ Prayer ___ Reconciliation ___ Sacrament of Sick _x__ Supportive presence ___ Wedding ___ Other (describe below) Pastoral Comments 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
--- NOTE | 2021-05-06 15:20 | NURSING ---
MISA HANNAH, AFIB W RVR
--- NOTE | 2021-05-06 15:41 | HP.PCM.HOS_ITS ---
HPI - General HPI Narrative GLORIA MATHEW, is a 80 F who presents with palpitations. Patient took flecainide last night and then came back into the emergency room. 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 Patient did convert to normal sinus rhythm. Patient had slightly elevate troponin but appear to be stable for her and patient was sent home. Patient again had palpitations this morning and presented to the emergency room. She did not take flecainide as she had exceeded her daily total. The emergency room physicians were to give her diltiazem and patient converted to normal sinus rhythm. Troponin was noted to be 2490. Emergency room physician spoke with [facility] and the patient was accepted. No readily available beds were available and the patient was brought in for further evaluation here to venture be transferred to [facility]. [facility] Medical History Atrial fibrillation Endometrial cancer Hernia Mitral and aortic valve disease Neuropathy Home Medications Caltrate 600-D Plus Minerals 1 ea PO DAILY 05/21/18 [History Last Taken 05/29/18] Paco Matrix 5000 1 ea PO DAILY 05/21/18 [History Last Taken 05/29/18] acetaminophen 650 mg PO Q4H PRN 05/21/18 [History Last Taken Unknown] alendronate [Fosamax] 70 mg PO QWEEK 05/21/18 [History Last Taken 05/15/18] cholecalciferol (vitamin D3) [Vitamin D3] 1,000 unit PO DAILY 05/21/18 [History Last Taken 05/29/18] cholestyramine (with sugar) [Questran] 4 g PO DAILY 05/21/18 [History Last Taken 05/29/18 14:30] cyanocobalamin (vitamin B-12) 1,000 mcg SUBLINGUAL DAILY 05/21/18 [History Last Taken 05/29/18 12:00] pramipexole 0.25 mg PO QHS 05/21/18 [History Last Taken 05/28/18] warfarin [Jantoven] 0.5 mg PO DAILY 05/21/18 [History Last Taken 05/28/18] citalopram 10 mg PO DAILY 12/31/20 [History Last Taken Unknown] gabapentin 600 mg PO BID 12/31/20 [History Last Taken Unknown] metoprolol tartrate 50 mg PO BID #1 tab 02/23/21 [Rx Last Taken Unknown] simvastatin 10 mg PO DAILY 02/23/21 [History Last Taken Unknown] flecainide 50 mg PO PRN PRN 03/30/21 [History Last Taken Unknown] Allergy/AdvReac Type Severity Reaction Status Date / Time sertraline [From Zoloft] AdvReac Other Verified 05/06/21 11:14 Family History (Updated 05/06/21 @ 15:[address] Jaciel Sesay DO) Other Heart disease Surgical History History of cholecystectomy History of hysterectomy for cancer S/P ablation operation for arrhythmia Social History household members: none Smoking Status: Never smoker alcohol intake: current alcohol intake frequency: other substance use type: does not use ROS ROS Narrative All review of systems were negative except as mentioned above in the history of present illness and the other review of systems. Vital Signs Vital Signs Vital Signs: 05/06/21 11:13 05/06/21 11:43 05/06/21 12:27 Temperature 36.7 C Temperature Source Temporal Pulse Rate 170 H 152 H 56 L Respiratory Rate 16 20 H 16 Blood Pressure 115/79 112/74 106/58 L Blood Pressure Mean 91 86 74 Pulse Ox 99 96 98 Oxygen Delivery Method Room Air Room Air 05/06/21 13:31 05/06/21 14:26 Temperature Temperature Source Pulse Rate 52 L 54 L Respiratory Rate 17 16 Blood Pressure 103/48 L 99/53 L Blood Pressure Mean 66 68 Pulse Ox 98 97 Oxygen Delivery Method Room Air Room Air Weight Weight: 70 kg Body Mass Index (BMI) 28.2 Physical Exam Const alert and no apparent distress General Appearance: cooperative HEENT normocephalic, head/scalp atraumatic and hearing grossly normal bilaterally Eyes PERRL and EOMs intact bilaterally Resp normal respiratory effort, no retractions, no use of accessory muscles and clear to auscultation bilaterally Cardio regular rate, regular rhythm, S1 normal heart sound and S2 normal heart sound GI normal to inspection, nondistended, normoactive bowel sounds, soft to palpation, non-tender and non-distended Extremity normal to inspection Skin no rashes or lesions noted Neuro Sensorium / Orientation: awake and alert Psych affect normal Results Lab / Micro Data Attestation: I reviewed the patient's lab results. Result Diagrams: 05/06/21 11:55 05/06/21 11:55 Labs: Laboratory Results - last 24 hr 05/06/21 11:55: Sodium 142, Potassium 3.8, Chloride 111 H, Carbon Dioxide 24.0, Anion Gap 7, BUN 19 H, Creatinine 0.88, Estim Creat Clear Calc 41.67, Est GFR (MDRD) Af Amer 79, Est GFR (MDRD) Non-Af 66, BUN/Creatinine Ratio 21.5 H, Glucose 125 H, Calcium 8.8, Magnesium 2.4, Troponin I High Sens 2490 H* 05/06/21 11:55: WBC 7.7, RBC 4.72, Hgb 14.5, Hct 42.4, MCV 89.8, MCH 30.7, MCHC 34.2, RDW Std Deviation 41.9, RDW Coeff of Zulma 12.9, Plt Count 210, MPV 8.8, Immature Gran % (Auto) 0.300, Neut % (Auto) 72.6 H, Lymph % (Auto) 14.5 L, [place] % (Auto) 9.4, Eos % (Auto) 2.0, Baso % (Auto) 1.2 H, Absolute Neuts (auto) 5.6, Absolute Lymphs (auto) 1.11, Nucleated RBC % 0 Micro: Microbiology 05/06/21 13:38 Nasal Secretion SARS-CoV-2 Antigen (Rapid) - Final EKG Initial EKG: Attestation: I personally reviewed and interpreted this EKG as follows: Prior EKG tracings: available for review EKG Rhythm Intrepretation: Atrial Fibrillation (w RVR) Assessment & Plan Assessment/Plan (1) Atrial fibrillation with RVR: (2) Acute non-ST elevation myocardial infarction (NSTEMI): PLAN: 1. afib w RVR Converted to normal sinus rhythm. Has been ongoing issue for the patient and patient has been accepted [facility]. Continue with metoprolol. Patient does take flecainide as needed. Will hold off on that for the time being. 2. Non-ST elevation myocardial infarction May be demand ischemia secondary to A. fib with RVR. We will continue to trend. Follow-up INR is that has not yet been drawn and initiate anticoagulation if that is subtherapeutic 3. VTE prophylaxis: Pending patient's INR. Should not be indicated patient is properly anticoagulated 4. Advanced care planning: Discussed with the patient. Patient is full CODE STATUS. Charges/Coding Visit Charges Inpatient E&M: 03962 Init Hosp L3
--- NOTE | 2021-05-06 17:03 | EKG12_ITS ---
Test Reason : AM Blood Pressure : / mmHG Vent. Rate : 047 BPM Atrial Rate : 047 BPM P-R Int : 192 ms QRS Dur : 088 ms QT Int : 470 ms P-R-T Axes : 000 062 067 degrees QTc Int : 415 ms Sinus bradycardia Otherwise normal ECG When compared with ECG of 06-MAY-2021 19:07, MANUAL COMPARISON REQUIRED, DATA IS UNCONFIRMED Confirmed by LENKA WARD, WILLIAN ([id number]), sports editor NIK ROPER ([id number]) on 05/16/2021 2:02:05 PM Referred By: RICCO Confirmed By:REINA OG MD
[2021-05-06 17:20] LABS: International Normalized Ratio 2.6; Prothrombin Time (Protime)PT. 27.4 SECONDS (11.7-14.9)
[2021-05-06] MEDS: Warfarin 0.5 MG Tablet PO (17:58)
[2021-05-06] MEDS: Cholestyramine/Sucrose 4 GM/PACKET PO (19:00)
[2021-05-06 19:14] LABS: Troponin-I HS 2201 pg/mL (3.0-54.0); Troponin-I HS 2251 pg/mL (3.0-54.0)
[2021-05-06] MEDS: Atorvastatin Calcium 10 MG Tablet 5 MG PO (20:26)
[2021-05-06] MEDS: Metoprolol Tartrate 50 MG Tablet PO (20:26)
[2021-05-06] MEDS: Gabapentin 600 MG Tablet PO (20:27)
[2021-05-06] MEDS: Pramipexole Di-HCl 0.25 MG Tablet PO (20:27)
--- NOTE | 2021-05-06 21:50 | CPS ---
own cpap set up with help of pt-water filled
--- NOTE | 2021-05-06 22:15 | PCS.PANDOC ---
PANDEMIC DOCUMENTATION INITIATED: Date: 12/17/2020 Time: 190
[2021-05-07] VITALS (9 sets, daily range): BP systolic 103–123; BP diastolic 49–71; PULSE 51–70; RESP 14–16; TEMP 36.6–36.9; O2SAT 96–98
[2021-05-07 06:47] LABS: International Normalized Ratio 2.3; Prothrombin Time (Protime)PT. 24.6 SECONDS (11.7-14.9)
[2021-05-07 07:04] LABS: ALB/GLOB Ratio 0.9 RATIO (0.9-2.4); AST(SGOT) 23 U/L (15-37); Alanine Aminotransfer ALT/SGPT 41 U/L (13-56); Albumin, Serum 3.1 g/dL (3.2-5.0); Alkaline Phosphatase 76 U/L (45-117); Anion Gap 7 (5-15); BUN 22 mg/dL (7-18); Calcium,Total 8.8 mg/dL (8.5-10.1); Chloride 108 mmol/L (98-107); Creatinine, Serum 0.88 mg/dL (0.55-1.02); EST Glomerular Filtration Rate 66 mL/min (>60); Est Glom Filt Rate - Afr Amer 80 mL/min (>60); Estimated Creatinine Clearance 41.67 ml/min; Globulin 3.6 g/dL (2.2-4.2); Glucose 86 mg/dL (74-106); Potassium 4.1 mmol/L (3.5-5.1); Protein, Total 6.7 g/dL (6.4-8.2); Sodium Level 138 mmol/L (136-145); Thyroid Stim Hormone (TSH) 0.76 uIU/mL (0.358-3.74)
[2021-05-07] MEDS: Gabapentin 600 MG Tablet PO ×2 (09:22→20:20)
[2021-05-07] MEDS: Metoprolol Tartrate 50 MG Tablet PO ×2 (09:22→20:19)
[2021-05-07] MEDS: Citalopram 10 MG Tablet PO (09:22)
--- NOTE | 2021-05-07 10:56 | CASEMGMT ---
According to the [facility] website, the following are in network tertiary facilities: [facility], [facility], [facility], [facility], [facility], [facility], and . Florian NARANJO CM
--- NOTE | 2021-05-07 11:19 | PN.HOSP_ITS ---
Subjective Subjective Follow-up on acute STEMI/A. fib with RVR: Patient was seen and examined. Denied any new complaints. Waiting on bed from [facility]. Objective Data Objective Data Vital Signs: Vital Signs Temp Pulse Resp BP Pulse Ox 98.4 F 64 16 103/49 L 97 05/07/21 09:16 05/07/21 09:22 05/07/21 09:16 05/07/21 09:16 05/07/21 09:16 Oxygen Delivery Method Room Air Weight: 69.1 kg Body Mass Index (BMI) 27.8 Intake & Output: Intake and Output for Last 24 Hours 05/05/21 05/06/21 05/07/21 23:59 23:59 23:59 Intake Total 300 / 300 Balance 300 / 300 Lab / Micro Data Result Diagrams: 05/06/21 11:55 05/07/21 04:52 Labs: Laboratory Results - last 24 hr 05/06/21 11:55: Sodium 142, Potassium 3.8, Chloride 111 H, Carbon Dioxide 24.0, Anion Gap 7, BUN 19 H, Creatinine 0.88, Estim Creat Clear Calc 41.67, Est GFR (MDRD) Af Amer 79, Est GFR (MDRD) Non-Af 66, BUN/Creatinine Ratio 21.5 H, Glucose 125 H, Calcium 8.8, Magnesium 2.4, Troponin I High Sens 2490 H* 05/06/21 11:55: WBC 7.7, RBC 4.72, Hgb 14.5, Hct 42.4, MCV 89.8, MCH 30.7, MCHC 34.2, RDW Std Deviation 41.9, RDW Coeff of Zulma 12.9, Plt Count 210, MPV 8.8, Immature Gran % (Auto) 0.300, Neut % (Auto) 72.6 H, Lymph % (Auto) 14.5 L, [place] % (Auto) 9.4, Eos % (Auto) 2.0, Baso % (Auto) 1.2 H, Absolute Neuts (auto) 5.6, Absolute Lymphs (auto) 1.11, Nucleated RBC % 0 05/06/21 11:55: PT 27.4 H, INR 2.6 05/06/21 17:30: Troponin I High Sens 2251 H* 05/06/21 17:30: Troponin I High Sens 2201 H* 05/07/21 04:52: PT 24.6 H, INR 2.3 05/07/21 04:52: Sodium 138, Potassium 4.1, Chloride 108 H, Carbon Dioxide 23.0, Anion Gap 7, BUN 22 H, Creatinine 0.88, Estim Creat Clear Calc 41.67, Est GFR (MDRD) Af Amer 80, Est GFR (MDRD) Non-Af 66, BUN/Creatinine Ratio 25.0 H, Glucose 86, Calcium 8.8, Total Bilirubin 1.30 H, AST 23, ALT 41, Alkaline Phosphatase 76, Total Protein 6.7, Albumin 3.1 L, Globulin 3.6, Albumin/Globulin Ratio 0.9, TSH 0.76 Micro: Microbiology 05/06/21 13:38 Nasal Secretion SARS-CoV-2 Antigen (Rapid) - Final Physical Exam Narrative Physical exam: General: Alert, Oriented x3, Cooperative, No apparent distress, Well developed HEENT: Atraumatic Oral: Moist Mucosa Neck: Supple Lungs: Clear to auscultation Cardiovascular: HS I+II, regular, 2/4 holosystolic murmur Abdomen: Bowel Sounds Present, Soft, Non Tender Extremities: No edema Assessment & Plan Assessment/Plan (1) Atrial fibrillation with RVR: (2) History of mitral valve replacement: (3) History of maze procedure: (4) Atrial fibrillation with rapid ventricular response: (5) Acute non-ST elevation myocardial infarction (NSTEMI): PLAN: 1. A. fib with RVR, remains in normal sinus rhythm continue metoprolol, INR is therapeutic at 2.3 repeat INR in a.m. 2. Acute non-STEMI, history of cardiac catheterization in 2018 that showed no significant CAD troponin elevated more than 2000 Patient's INR is 2.3 EF of 60% on 2D echo in 2019 She is asymptomatic of chest pain Will consult cardiology here pending bed availability in [facility] 3. 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
--- NOTE | 2021-05-07 13:50 | ECHOD_ITS ---
Reason For Study: ARRHYTHMIA Procedure This was a 2D Doppler, Color Flow transthoracic echocardiogram. The exam was of adequate technical quality. Exam performed portable in patient room. Left Ventricle Normal LV size. Mid cavitary false tendon noted. Left ventricular systolic function is normal. The estimated ejection fraction is 55 %. Transmitral diastolic flow velocities suggest moderate (stage 2) diastolic dysfunction (pseudonormal pattern). No regional wall motion abnormalities noted. Right Ventricle Normal RV size. Normal systolic function. Atria The left atrium is moderately enlarged. The right atrium is mildly enlarged. No doppler evidence for ASD. Mitral Valve Stable appearing bioprosthetic mitral valve apparatus. Tricuspid Valve Normal tricuspid valve. Moderate (2+) tricuspid valve insufficiency. Right ventricular systolic pressure estimated to be 33 mmHg. Aortic Valve Trisinus/trileaflet aortic valve. Normal aortic valve. Trivial aortic valve insufficiency. Pulmonic Valve The pulmonic valve is not well visualized. Trivial pulmonic valve insufficiency. Great Vessels Normal sized aortic root. Pericardium/Pleural No pericardial effusion. MMode/2D Measurements & Calculations LVIDd: 4.7 cm IVSd: 0.91 cm Ao root diam: 3.3 cm LVIDs: 3.2 cm LVPWd: 1.1 cm RVDd: 4.1 cm FS: 31.2 % LAV(MOD-bp): 91.6 ml LA A4 area: 24.5 cm2 LA dimension(2D): 4.5 cm LAV(MOD-bp) Indexed: 53.8 ml/m2 LAV(MOD-sp2): 89.4 ml LAV(MOD-sp4): 89.4 ml RA A4 area: 18.0 cm2 Time Measurements MV dec time: 0.38 sec Doppler Measurements & Calculations MV E max miles: 160.0 cm/sec MV V2 max: 218.1 cm/sec Ao V2 max: 171.6 cm/sec MV A max miles: 50.4 cm/sec MV max P.0 mmHg Ao max P.8 mmHg MV E/A: 3.2 MV V2 mean: 98.6 cm/sec Ao V2 mean: 122.7 cm/sec MV mean P.0 mmHg Ao mean P.5 mmHg MV V2 VTI: 61.4 cm Ao V2 VTI: 36.7 cm LV V1 max: 86.2 cm/sec PA V2 max: 71.1 cm/sec TR max miles: 263.2 cm/sec LV V1 max P.0 mmHg TR max P.6 mmHg LV V1 mean P.5 mmHg LV V1 mean: 59.2 cm/sec LV V1 VTI: 18.2 cm ECHO/Echo Complete Interpretation Summary Left ventricular systolic function is normal. The estimated ejection fraction is 55 %. Mid cavitary false tendon noted. The left atrium is moderately enlarged. The right atrium is mildly enlarged. Stable appearing bioprosthetic mitral valve apparatus. Moderate (2+) tricuspid valve insufficiency. Trivial aortic valve insufficiency. Trivial pulmonic valve insufficiency. Right ventricular systolic pressure estimated to be 33 mmHg. Transmitral diastolic flow velocities suggest diastolic dysfunction (pseudonorm al pattern). Ordering Physician: Aimee Contreras Referring Physician: OTD Performed By: Talisha Mcdonald, KAYLA, RVT
--- NOTE | 2021-05-07 14:37 | CHAPLAIN ---
Type of Pastoral Visit ___ Initial Visit _x__ Follow-up Visit ___ On-call Visit ___ General Patient Visit ___ Spiritual Assessment ___ Family Conference ___ Bereavement ___ Rapid Response ___ Code Blue ___ Other (describe below) Pastoral Care Referral From _x__ Patient ___ Family ___ Nurse ___ Physician ___ Telephone Claims Representative ___ Access Database Developer ___ Other (describe below) Sacrament/Intervention _x__ Active listening ___ Anointing ___ Judaism ___ Bereavement ___ Communion _x__ [place] exploration ___ _x__ Life review _x__ Prayer ___ Reconciliation ___ Sacrament of Sick _x__ Supportive presence ___ Wedding ___ Other (describe below) Pastoral Comments patient is waiting on availability to transfer to another hospital; pt expresses understanding of process; pt also speaks of her grief and living alone since spouse 1 year ago and father shortly thereafter; pt is spiritual and welcomes spiritual support and prayer
[2021-05-07] MEDS: Cholestyramine/Sucrose 4 GM/PACKET PO (16:11)
--- NOTE | 2021-05-07 18:58 | PCM.CONS.C ---
Assessment & Plan Assessment/Plan (1) Atrial fibrillation with RVR: PLAN: The patient has been evaluated in the past by electrophysiology as previously noted. She has had repetitive recurrence of her atrial fibrillation. It appears that she has been placed back on beta-edson therapy and on antiarrhythmic therapy with flecainide/Tambocor to use on a as needed basis. However based upon review of her previous electrophysiology records it appears that there was a recommendation that if she had such recurrences that she would need to be considered for AV node ablation and permanent pacemaker placement. Thus at the moment it appears reasonable to monitor her cardiac rate and rhythm and continue her beta-edson therapy-cautiously monitoring for any significant bradycardia dysrhythmias that would potentially bring out recurrent torsade de pointes as she has been noted to have in the past-and proceed with attempts to transfer the patient back to her electrophysiology team for further evaluation and care. (2) History of mitral valve replacement: PLAN: The patient has undergone mitral valve replacement as previously noted. Her mitral valve prosthesis appears to be stable at this time. She would need to continue [employer] antibiotic prophylaxis. (3) History of maze procedure: PLAN: It appears she has undergone a bilateral maze procedure. Despite this she still has recurrences of her atrial dysrhythmia. Thus it is very reasonable to have the patient be transferred back to her electrophysiology team for additional evaluation care as noted above. (4) S/P left atrial appendage ligation: PLAN: The patient underwent a left atrial appendage ligation procedure as previously noted. Hopefully this will help minimize the risk of any left atrial appendage thrombosis that would occur when if she were not in an anticoagulated state. (5) Acute non-ST elevation myocardial infarction (NSTEMI): PLAN: The patient does have abnormal cardiac enzymes. The etiology may be related to her atrial tachydysrhythmia and a type II event. She does not appear to present with classic acute coronary syndrome type symptoms or other objective findings. However, she may need further definitive evaluation such as diagnostic cardiac catheterization. Ideally would be reasonable to allow her INR to decrease prior to proceeding with such a procedure. Again if the patient is being transferred back to her primary cardiovascular team this can be performed at their center. If over time there does not appear to be a bed available for her at her tertiary care center then she may need to give consideration as to whether or not this procedure can be performed locally as part of her ongoing evaluation and care. Addt'l Comments The above was discussed and reviewed with patient. The patient's case was also been discussed and reviewed with the [facility] hospitalist team. This note was generated using a voice recognition system and there may be incorrect words, spelling or punctuation that were not noted when reviewing the office note prior to saving. HPI Consult Data Date of Consult: 05/07/21 HPI Narrative HPI Narrative: GLORIA MATHEW, is a 80 year old white female who presents for evaluation of recurrent atrial fibrillation superimposed upon a history of additional cardiac dysrhythmias with torsade de pointes and additional cardiovascular issues with respect to mitral valve disease/stenosis status post mitral valve replacement-bioprosthetic with findings of abnormal cardiac enzymes/troponin I levels. The patient has been previously evaluated at [facility] in cardiovascular consultation in 2019 by Real Gibson MD. At that point in time, based upon concerns of her underlying cardiac dysrhythmias she was subsequently referred to [facility] for further evaluation and care. There she has undergone noninvasive and invasive cardiovascular evaluation from both general cardiology and electrophysiology and subsequently required medical management and mitral valve replacement. She states she has followed with [facility] since that time. She states that she has noticed recurrence of her cardiac dysrhythmia with concerns of atrial fibrillation. She has been in and out of the emergency department recently/frequently because of recurrent events being treated medically with subsequent conversion to sinus rhythm. Status post repetitive emergency department evaluations he was socially recommended for further inpatient evaluation and care. According to the emergency [facility] evaluation [facility] was contacted and she was accepted in transfer by her cardiovascular team for further evaluation and care. However due to lack of patient bed availability at [facility] she has been remaining at [facility]. At the present time she appears to be feeling better as she has returned to sinus rhythm. She states the only time she develops any chest discomfort or difficulty breathing is when she is experiencing her tachydysrhythmia. Otherwise she has had no ongoing chest discomfort, orthopnea, PND, or peripheral pitting edema. She denies any loss of consciousness. She has undergone evaluation with cardiac enzymes which have been elevated. It appears there was concern that this may be secondary to her atrial dysrhythmia as she was not found to have underlying CAD prior to her open heart surgery procedure. Her ECG in sinus rhythm demonstrated nonspecific T wave abnormality. She has subsequently undergone a transthoracic echocardiogram with the findings as noted below. According to previous [facility] records available for review from 05-31-2018 it appears the patient underwent evaluation for atrial fibrillation, has a number 29 mm [employer] Epic mitral valve bioprosthesis and at the time of her surgery underwent a bilateral Maze procedure with exclusion of the left atrial appendage with a number 45 mm atrial cure clip (04-16-2018). In May 2018 she was transferred to [facility] from [facility] based upon concerns of torsades de pointes. There was concern that she had QTC prolongation secondary to amiodarone therapy and bradycardia.. She underwent electrophysiology consultation. 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 Her amiodarone therapy and beta-edson therapy was placed on hold. She was not recommended for additional antiarrhythmic therapy at that time. There was a comment that if the patient had recurrent atrial fibrillation with RVR that she would most likely need further EP evaluation for consideration for AV node ablation and permanent pacemaker placement. It appears that in the interim she had been placed back on beta-edson therapy and on flecainide/Tambocor at a low-dose to use as needed with respect to her atrial fibrillation. [facility] Medical History Atrial fibrillation Endometrial cancer Hernia Mitral and aortic valve disease Neuropathy Home Medications Caltrate 600-D Plus Minerals 1 ea PO DAILY 05/21/18 [History Last Taken 05/05/21] Paco Matrix 5000 1 ea PO DAILY 05/21/18 [History Last Taken 05/06/21] alendronate [Fosamax] 70 mg PO QWEEK 05/21/18 [History Last Taken 04/27/21] cholecalciferol (vitamin D3) [Vitamin D3] 1,000 unit PO DAILY 05/21/18 [History Last Taken 05/06/21] cholestyramine (with sugar) [Questran] 4 g PO DAILY 05/21/18 [History Last Taken 05/04/21] cyanocobalamin (vitamin B-12) 1,000 mcg SUBLINGUAL DAILY 05/21/18 [History Last Taken 05/06/21] warfarin [Jantoven] 1 mg PO DAILY 05/21/18 [History Last Taken 05/04/21] citalopram 10 mg PO DAILY 12/31/20 [History Last Taken 05/04/21] gabapentin 600 mg PO DAILY 12/31/20 [History Last Taken 05/05/21] metoprolol tartrate 50 mg PO BID #1 tab 02/23/21 [Rx Last Taken 05/06/21] simvastatin 10 mg PO DAILY 02/23/21 [History Last Taken 05/05/21] flecainide 50 mg PO PRN PRN 03/30/21 [History Last Taken 05/05/20] biotin 1,000 mcg PO DAILY 05/06/21 [History Last Taken 05/05/21] fexofenadine 180 mg PO DAILY 05/06/21 [History Last Taken 05/05/21] gabapentin 300 mg PO DAILY 05/06/21 [History Last Taken 05/06/21] ipratropium bromide 2 spray INTRANASAL BID 05/06/21 [History Last Taken 05/06/21] pramipexole 0.75 mg PO QHS 05/06/21 [History Last Taken 05/05/21] Allergy/AdvReac Type Severity Reaction Status Date / Time sertraline [From Zoloft] AdvReac Other Verified 05/06/21 11:14 Family History Other Heart disease Surgical History (Updated 05/07/21 @ 19:[address] Polo Falk MD) History of cholecystectomy History of hysterectomy for cancer S/P ablation operation for arrhythmia S/P left atrial appendage ligation Social History household members: none Smoking Status: Never smoker alcohol intake: current alcohol intake frequency: other substance use type: does not use ROS Constitutional Constitutional: Reports as per HPI Eyes Eyes: Reports as per HPI ENT HEENT: Reports as per HPI Cardiovascular Cardiovascular: Reports irregular heart rhythm and palpitations Respiratory/Chest Respiratory/Chest: Reports as per HPI Gastrointestinal Gastrointestinal: Reports as per HPI Genitourinary Genitourinary: Reports as per HPI Musculoskeletal Musculoskeletal: Reports as per HPI Integumentary Integumentary: Reports as per HPI Neurologic Neurologic: Reports as per HPI Physical Exam Const alert, oriented x3 and no apparent distress Orientation / Consciousness: awake HEENT normocephalic, head/scalp atraumatic and hearing grossly normal bilaterally Eyes PERRL, EOMs intact bilaterally and conjunctivae normal Neck full ROM, supple and no JVD Chest Chest: midline sternotomy incision Resp clear to auscultation bilaterally Cardio regular rate, regular rhythm, S1 normal heart sound and S2 normal heart sound Heart Sounds: murmur systolic II/ soft mid left sternal border GI normal to inspection, nondistended, normoactive bowel sounds Extremity no pedal edema Skin no rashes or lesions noted Neuro oriented x3, moves all extremities, no focal motor deficits and no sensory deficits noted Psych mental status grossly normal Risk Stratification Risk Stratification Applicable: Yes Age >/= 65: Yes >/= 3 CAD Risk Factors (HTN, HLD, DM, family hx of CAD, or current smoker): No Aspirin Use in the Past 7 Days: No Severe Angina (>/= episodes in 24 hours): No EKG ST Changes >/= 0.5mm: No Positive Cardiac Marker: Yes JEMAL Risk Stratification Score: 2 JEMAL % Risk: 8% Risk Objective Data Vital Signs: Vital Signs Temp Pulse Resp BP Pulse Ox 98.4 F 62 16 103/49 L 97 05/07/21 09:16 05/07/21 13:55 05/07/21 09:16 05/07/21 09:16 05/07/21 09:16 Oxygen Delivery Method Room Air Weight: 152 lb 5.431 oz Body Mass Index (BMI) 27.8 Intake & Output: Intake and Output for Last 24 Hours 05/05/21 05/06/21 05/07/21 23:59 23:59 23:59 Intake Total 300 / 300 Balance 300 / 300 Lab / Micro Data Result Diagrams: 05/06/21 11:55 05/07/21 04:52 Labs: Laboratory Results - last 24 hr 05/06/21 17:30: Troponin I High Sens 2251 H* 05/06/21 17:30: Troponin I High Sens 2201 H* 05/07/21 04:52: PT 24.6 H, INR 2.3 05/07/21 04:52: Sodium 138, Potassium 4.1, Chloride 108 H, Carbon Dioxide 23.0, Anion Gap 7, BUN 22 H, Creatinine 0.88, Estim Creat Clear Calc 41.67, Est GFR (MDRD) Af Amer 80, Est GFR (MDRD) Non-Af 66, BUN/Creatinine Ratio 25.0 H, Glucose 86, Calcium 8.8, Total Bilirubin 1.30 H, AST 23, ALT 41, Alkaline Phosphatase 76, Total Protein 6.7, Albumin 3.1 L, Globulin 3.6, Albumin/Globulin Ratio 0.9, TSH 0.76 Micro: Microbiology 05/06/21 13:38 Nasal Secretion SARS-CoV-2 Antigen (Rapid) - Final Cardiology Labs/Tests 05/07/21 04:52: PT 24.6 H, INR 2.3 05/07/21 04:52: Sodium 138, Potassium 4.1, Chloride 108 H, Carbon Dioxide 23.0, Anion Gap 7, BUN 22 H, Creatinine 0.88, Est GFR (MDRD) Af Amer 80, Est GFR (MDRD) Non-Af 66, BUN/Creatinine Ratio 25.0 H, Glucose 86, Calcium 8.8, Total Bilirubin 1.30 H Rhythm: As noted above EKG: As noted above ECHO: As noted below Radiography Diagnostic Testing: Radiology Impression Echocardiogram 05/07/21 13:50 Interpretation Summary Left ventricular systolic function is normal. The estimated ejection fraction is 55 %. Mid cavitary false tendon noted. The left atrium is moderately enlarged. The right atrium is mildly enlarged. Stable appearing bioprosthetic mitral valve apparatus. Moderate (2+) tricuspid valve insufficiency. Trivial aortic valve insufficiency. Trivial pulmonic valve insufficiency. Right ventricular systolic pressure estimated to be 33 mmHg. Transmitral diastolic flow velocities suggest diastolic dysfunction (pseudonormal pattern). Ordering Physician: Aimee Contreras Referring Physician: OTD Performed By: Talisha Mcdonald, KAYLA, RVT
[2021-05-07] MEDS: Pramipexole Di-HCl 0.25 MG Tablet PO (20:20)
[2021-05-07] MEDS: Atorvastatin Calcium 10 MG Tablet 5 MG PO (20:20)
[2021-05-08] VITALS (12 sets, daily range): BP systolic 96–124; BP diastolic 50–80; PULSE 53–65; RESP 12–16; TEMP 36.6–36.9; O2SAT 93–100
[2021-05-08 06:32] LABS: Absolute Lymphocyte Count 1.33 X10^3/uL (0.83-4.51); Absolute Neutrophil Count 4.2 X10^3/uL (2.0-7.7); Basophil# 0.08 X10^3/uL; Basophil% 1.2 % (0-1); Eosinophil# 0.18 X10^3/uL; Eosinophils% 2.8 % (0-5); Hematocrit 38.6 % (37-47); Hemoglobin 12.9 g/dL (12.0-15.0); Lymphocyte # 1.33 X10^3/ul (0.83-4.51); Lymphocyte % 20.4 % (19-41); Mean Corp Hgb Conc 33.4 g/dL (32-36); Mean Corpuscular Hgb 30.4 pg (27.0-32.0); Monocyte# 0.75 X10^3/uL; Monocyte% 11.5 % (0-10); NRBC Flagged by Analyzer 0 % (0-5); Neutrophil # 4.15 X10^3/uL (2.7-7.7); Neutrophil % 63.8 % (47-70); Platelet Count 164 K/mm3 (150-450); RBC Distribution Width CV 12.5 % (11.6-14.6); RBC Distribution Width SD 40.8 fl (35.1-43.9); Red Blood Count 4.24 M/mm3 (4.2-5.4); White Blood Count 6.5 K/mm3 (4.4-11.0)
[2021-05-08 06:39] LABS: Prothrombin Time (Protime)PT. 21.5 SECONDS (11.7-14.9)
[2021-05-08 06:53] LABS: ALB/GLOB Ratio 0.8 RATIO (0.9-2.4); AST(SGOT) 17 U/L (15-37); Alanine Aminotransfer ALT/SGPT 31 U/L (13-56); Alkaline Phosphatase 68 U/L (45-117); Anion Gap 7 (5-15); BUN 19 mg/dL (7-18); BUN/Creat Ratio 24.1 RATIO (10-20); Calcium,Total 8.5 mg/dL (8.5-10.1); Chloride 109 mmol/L (98-107); Creatinine, Serum 0.79 mg/dL (0.55-1.02); EST Glomerular Filtration Rate 75 mL/min (>60); Est Glom Filt Rate - Afr Amer 91 mL/min (>60); Estimated Creatinine Clearance 36.67 ml/min; Globulin 3.6 g/dL (2.2-4.2); Glucose 89 mg/dL (74-106); Potassium 4.2 mmol/L (3.5-5.1); Protein, Total 6.6 g/dL (6.4-8.2); Sodium Level 140 mmol/L (136-145)
--- NOTE | 2021-05-08 09:31 | PN.CARD_ITS ---
Subjective Subjective The patient is awake and alert. She denies any new acute cardiovascular symptoms. Objective Data Vital Signs: Vital Signs Temp Pulse Resp BP Pulse Ox 98.3 F 57 L 12 104/54 L 93 05/08/21 02:51 05/08/21 03:00 05/08/21 02:51 05/08/21 02:51 05/08/21 02:51 Oxygen Delivery Method Room Air Weight: 152 lb 5.431 oz Body Mass Index (BMI) 27.8 Intake & Output: Intake and Output for Last 24 Hours 05/06/21 05/07/21 05/08/21 23:59 23:59 23:59 Intake Total 300 / 300 240 / 240 Balance 300 / 300 240 / 240 Lab / Micro Data Result Diagrams: 05/08/21 05:21 05/08/21 05:21 Labs: Laboratory Results - last 24 hr 05/08/21 05:21: WBC 6.5, RBC 4.24, Hgb 12.9, Hct 38.6, MCV 91.0, MCH 30.4, MCHC 33.4, RDW Std Deviation 40.8, RDW Coeff of Zulma 12.5, Plt Count 164, MPV 9.0, Immature Gran % (Auto) 0.300, Neut % (Auto) 63.8, Lymph % (Auto) 20.4, Stewart % (Auto) 11.5 H, Eos % (Auto) 2.8, Baso % (Auto) 1.2 H, Absolute Neuts (auto) 4.2, Absolute Lymphs (auto) 1.33, Nucleated RBC % 0 05/08/21 05:21: PT 21.5 H, INR 2.0 05/08/21 05:21: Sodium 140, Potassium 4.2, Chloride 109 H, Carbon Dioxide 24.0, Anion Gap 7, BUN 19 H, Creatinine 0.79, Estim Creat Clear Calc 36.67, Est GFR (MDRD) Af Amer 91, Est GFR (MDRD) Non-Af 75, BUN/Creatinine Ratio 24.1 H, Glucose 89, Calcium 8.5, Total Bilirubin 1.20 H, AST 17, ALT 31, Alkaline Phosphatase 68, Total Protein 6.6, Albumin 3.0 L, Globulin 3.6, Albumin/Globulin Ratio 0.8 L Cardiology Labs/Tests 05/08/21 05:21: WBC 6.5, RBC 4.24, Hgb 12.9, Hct 38.6, MCV 91.0, MCH 30.4, MCHC 33.4, Plt Count 164, MPV 9.0, Immature Gran % (Auto) 0.300, Neut % (Auto) 63.8, Lymph % (Auto) 20.4, Stewart % (Auto) 11.5 H, Eos % (Auto) 2.8, Baso % (Auto) 1.2 H , Absolute Neuts (auto) 4.2, Nucleated RBC % 0 05/08/21 05:21: PT 21.5 H, INR 2.0 05/08/21 05:21: Sodium 140, Potassium 4.2, Chloride 109 H, Carbon Dioxide 24.0, Anion Gap 7, BUN 19 H, Creatinine 0.79, Est GFR (MDRD) Af Amer 91, Est GFR (MDRD) Non-Af 75, BUN/Creatinine Ratio 24.1 H, Glucose 89, Calcium 8.5, Total Bilirubin 1.20 H Rhythm: Sinus rhythm Radiography Diagnostic Testing: Radiology Impression Echocardiogram 05/07/21 13:50 Interpretation Summary Left ventricular systolic function is normal. The estimated ejection fraction is 55 %. Mid cavitary false tendon noted. The left atrium is moderately enlarged. The right atrium is mildly enlarged. Stable appearing bioprosthetic mitral valve apparatus. Moderate (2+) tricuspid valve insufficiency. Trivial aortic valve insufficiency. Trivial pulmonic valve insufficiency. Right ventricular systolic pressure estimated to be 33 mmHg. Transmitral diastolic flow velocities suggest diastolic dysfunction (pseudonormal pattern). Ordering Physician: Aimee Contreras Referring Physician: OTD Performed By: Talisha Mcdonald, KAYLA, RVT Physical Exam Const alert, oriented x3 and no apparent distress Orientation / Consciousness: awake HEENT normocephalic, head/scalp atraumatic and hearing grossly normal bilaterally Eyes PERRL, EOMs intact bilaterally and conjunctivae normal Neck full ROM, supple and no JVD Chest Chest: midline sternotomy incision Resp clear to auscultation bilaterally Cardio regular rate, regular rhythm, S1 normal heart sound and S2 normal heart sound Heart Sounds: murmur systolic II/ soft mid left sternal border GI normal to inspection, nondistended, normoactive bowel sounds Extremity no pedal edema Skin no rashes or lesions noted Neuro oriented x3, moves all extremities, no focal motor deficits and no sensory deficits noted Psych mental status grossly normal Assessment & Plan Assessment/Plan (1) Atrial fibrillation with RVR: PLAN: The patient has been evaluated in the past by electrophysiology as previously noted. She has had repetitive recurrence of her atrial fibrillation. It appears that she has been placed back on beta-edson therapy and on antiarrhythmic therapy with flecainide/Tambocor to use on a as needed basis. However based upon review of her previous electrophysiology records it appears that there was a recommendation that if she had such recurrences that she would need to be considered for AV node ablation and permanent pacemaker placement. Thus at the moment it appears reasonable to monitor her cardiac rate and rhythm and continue her beta-edson therapy-cautiously monitoring for any significant bradycardia dysrhythmias that would potentially bring out recurrent torsade de pointes as she has been noted to have in the past-and proceed with attempts to transfer the patient back to her electrophysiology team for further evaluation and care. (2) History of mitral valve replacement: PLAN: The patient has undergone mitral valve replacement as previously noted. Her mitral valve prosthesis appears to be stable at this time. She would need to continue [employer] antibiotic prophylaxis. (3) History of maze procedure: PLAN: It appears she has undergone a bilateral maze procedure. Despite this she still has recurrences of her atrial dysrhythmia. Thus it is very reasonable to have the patient be transferred back to her electrophysiology team for additional evaluation care as noted above. (4) S/P left atrial appendage ligation: PLAN: The patient underwent a left atrial appendage ligation procedure as previously noted. Hopefully this will help minimize the risk of any left atrial appendage thrombosis that would occur when if she were not in an anticoagulated state. (5) Acute non-ST elevation myocardial infarction (NSTEMI): PLAN: The patient does have abnormal cardiac enzymes. The etiology may be related to her atrial tachydysrhythmia and a type II event. She does not appear to present with classic acute coronary syndrome type symptoms or other objective findings. However, she may need further definitive evaluation such as diagnostic cardiac catheterization. The procedure and risk was discussed with her. She was agreeable to this approach. Ideally would be reasonable to allow her INR to decrease prior to proceeding with such a procedure. Thus, her INR will be followed. Once her INR is thought to be acceptable she will proceed with further evaluation with diagnostic cardiac catheterization barring a change in her clinical course, etc. Addt'l Comments This note was generated using a voice recognition system and there may be incorrect words, spelling or punctuation that were not noted when reviewing the office note prior to saving.
[2021-05-08] MEDS: Gabapentin 600 MG Tablet PO ×2 (09:37→21:25)
[2021-05-08] MEDS: Metoprolol Tartrate 50 MG Tablet PO ×2 (09:37→21:28)
[2021-05-08] MEDS: Aspirin 81 MG TAB.CHEW PO (09:37)
[2021-05-08] MEDS: Citalopram 10 MG Tablet PO (09:37)
[2021-05-08] MEDS: Cholestyramine/Sucrose 4 GM/PACKET PO (10:57)
--- NOTE | 2021-05-08 13:00 | PN.HOSP_ITS ---
Documented by User: TAN Alaniz 05/08/21 15:19 Subjective Subjective Patient seen and examined. Patient sitting in bed no distress noted eating breakfast. Patient vital signs stable. Patient denies palpitations or shortness of breath. Objective Data Objective Data Vital Signs: Vital Signs Temp Pulse Resp BP Pulse Ox 98.1 F 63 16 110/53 L 96 05/08/21 09:32 05/08/21 09:37 05/08/21 09:32 05/08/21 09:37 05/08/21 09:32 Oxygen Delivery Method Room Air Weight: 152 lb 5.431 oz Body Mass Index (BMI) 27.8 Intake & Output: Intake and Output for Last 24 Hours 05/06/21 05/07/21 05/08/21 23:59 23:59 23:59 Intake Total 300 / 300 240 / 240 600 / 600 Balance 300 / 300 240 / 240 600 / 600 Lab / Micro Data Result Diagrams: 05/08/21 05:21 05/08/21 05:21 Labs: Laboratory Results - last 24 hr 05/08/21 05:21: WBC 6.5, RBC 4.24, Hgb 12.9, Hct 38.6, MCV 91.0, MCH 30.4, MCHC 33.4, RDW Std Deviation 40.8, RDW Coeff of Zulma 12.5, Plt Count 164, MPV 9.0, Immature Gran % (Auto) 0.300, Neut % (Auto) 63.8, Lymph % (Auto) 20.4, [place] % (Auto) 11.5 H, Eos % (Auto) 2.8, Baso % (Auto) 1.2 H, Absolute Neuts (auto) 4.2, Absolute Lymphs (auto) 1.33, Nucleated RBC % 0 05/08/21 05:21: PT 21.5 H, INR 2.0 05/08/21 05:21: Sodium 140, Potassium 4.2, Chloride 109 H, Carbon Dioxide 24.0, Anion Gap 7, BUN 19 H, Creatinine 0.79, Estim Creat Clear Calc 36.67, Est GFR (MDRD) Af Amer 91, Est GFR (MDRD) Non-Af 75, BUN/Creatinine Ratio 24.1 H, Glucose 89, Calcium 8.5, Total Bilirubin 1.20 H, AST 17, ALT 31, Alkaline Phosphatase 68, Total Protein 6.6, Albumin 3.0 L, Globulin 3.6, Albumin/Globulin Ratio 0.8 L Micro: Microbiology 05/06/21 13:38 Nasal Secretion SARS-CoV-2 Antigen (Rapid) - Final Radiography Diagnostic Testing: Radiology Impression Echocardiogram 05/07/21 13:50 Interpretation Summary Left ventricular systolic function is normal. The estimated ejection fraction is 55 %. Mid cavitary false tendon noted. The left atrium is moderately enlarged. The right atrium is mildly enlarged. Stable appearing bioprosthetic mitral valve apparatus. Moderate (2+) tricuspid valve insufficiency. Trivial aortic valve insufficiency. Trivial pulmonic valve insufficiency. Right ventricular systolic pressure estimated to be 33 mmHg. Transmitral diastolic flow velocities suggest diastolic dysfunction (pseudonormal pattern). _ Ordering Physician: Aimee Contreras Referring Physician: OTD Performed By: Talisha Mcdonald RDCS, RVT Physical Exam Const alert and no apparent distress General Appearance: cooperative HEENT normocephalic, head/scalp atraumatic and hearing grossly normal bilaterally Eyes PERRL and EOMs intact bilaterally Resp normal respiratory effort, no retractions, no use of accessory muscles and clear to auscultation bilaterally Cardio regular rate, regular rhythm, S1 normal heart sound and S2 normal heart sound GI normal to inspection, nondistended, normoactive bowel sounds, soft to palpation, non-tender and non-distended Extremity normal to inspection Skin no rashes or lesions noted Neuro Sensorium / Orientation: awake and alert Psych affect normal Assessment & Plan Assessment/Plan (1) Atrial fibrillation with RVR: PLAN: 1. Atrial fibrillation with RVR -Patient has been rate controlled while inpatient however due to patient's exten sive history and continued A. fib following Maze procedure patient will need EP follow-up for pacemaker placement. Patient has been accepted to [facility] but is awaiting a bed to become available. -Per Dr. Falk's note patient will most likely go for cardiac catheterization once INR is safe to do so. -Daily PT/INR ordered DVT prophylaxis-chronically anticoagulated, therapeutic INR This patient was seen by TAN Alaniz under the supervision of Dr. Ruiz. Documented by User: Dr. Romina Ruiz MD 05/08/21 17:24 Objective Data Lab / Micro Data Result Diagrams: 05/08/21 05:21 05/08/21 05:21 Charges/Coding Addendum Addendum: This patient was seen in conjunction with Adalid Contreras NP. I have independently interviewed and examined the patient and reviewed pertinent historical, laboratory, and other data. I have reviewed her note and concur with her documentation Patient was seen and examined. No acute events overnight. She denied any chest pain or dizziness. Still waiting to hear from transfer line. Cardiology intends to go ahead with cardiac catheterization if patient does not get transferred tomorrow. Vitals: Temp Pulse Resp BP Pulse Ox 98.1 F 63 16 110/53 L 96 Physical Exam: Gen: Comfortable, not pale, not jaundiced CVS:HS I +II, regular, no murmurs RESP: Diminished at lung bases GI: BS present and normal, soft, nontender, no palpable organs EXT:No edema Labs: WBC count is 6.5, hemoglobin 12.9, platelet count 164, sodium 140, potassium 4.2, chloride 109, bicarbonate 24, BUN 19, creatinine 0.79 ASSESSMENT: 1. A. fib with RVR, remains in normal sinus rhythm Continue metoprolol, INR is therapeutic at 2.0 Continue to hold Coumadin Repeat INR in a.m. 2. Acute non-STEMI, history of cardiac catheterization in 2018 that showed no significant CAD Troponin elevated more than 2000 Patient's INR is 2.0. EF of 60% on 2D echo in 2019 Cardiology is following. 3. 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
[2021-05-08] MEDS: Pramipexole Di-HCl 0.25 MG Tablet PO (21:25)
[2021-05-08] MEDS: Atorvastatin Calcium 10 MG Tablet 5 MG PO (21:25)
[2021-05-09 03:00] VITALS: PULSE 49
--- NOTE | 2021-05-09 03:01 | EKG12_ITS ---
Test Reason : ADMISSION Blood Pressure : / mmHG Vent. Rate : 067 BPM Atrial Rate : 067 BPM P-R Int : 200 ms QRS Dur : 092 ms QT Int : 414 ms P-R-T Axes : -27 050 070 degrees QTc Int : 437 ms Normal sinus rhythm Nonspecific T wave abnormality Abnormal ECG When compared with ECG of 06-MAY-2021 12:15, MANUAL COMPARISON REQUIRED, DATA IS UNCONFIRMED Confirmed by LENKA WARD, WILLIAN ([id number]), film and video editor NIK ROPER ([id number]) on 05/16/2021 2:09:47 PM Referred By: RICCO Confirmed By:REINA OG MD
[2021-05-09 04:20] VITALS: BP 123/71; PULSE 51; RESP 20; TEMP 36.4; O2SAT 98
[2021-05-09] MEDS: Aspirin 81 MG TAB.CHEW PO (06:46)
[2021-05-09 06:52] VITALS: BP 121/59; PULSE 47
[2021-05-09 06:53] VITALS: BP 121/59; PULSE 47
[2021-05-09 07:33] LABS: Absolute Lymphocyte Count 1.06 X10^3/uL (0.83-4.51); Absolute Neutrophil Count 2.9 X10^3/uL (2.0-7.7); Basophil# 0.07 X10^3/uL; Basophil% 1.5 % (0-1); Eosinophil# 0.21 X10^3/uL; Eosinophils% 4.4 % (0-5); Hematocrit 36.2 % (37-47); Hemoglobin 12.5 g/dL (12.0-15.0); Lymphocyte # 1.06 X10^3/ul (0.83-4.51); Lymphocyte % 22.2 % (19-41); Mean Corp Hgb Conc 34.5 g/dL (32-36); Mean Corpuscular Hgb 30.9 pg (27.0-32.0); Mean Corpuscular Volume 89.6 fL (81-99); Mean Platelet Vol. 8.5 fl (6.2-12.0); Monocyte% 10.5 % (0-10); NRBC Flagged by Analyzer 0 % (0-5); Neutrophil # 2.93 X10^3/uL (2.7-7.7); Neutrophil % 61.2 % (47-70); Platelet Count 159 K/mm3 (150-450); RBC Distribution Width CV 12.4 % (11.6-14.6); RBC Distribution Width SD 40.2 fl (35.1-43.9); Red Blood Count 4.04 M/mm3 (4.2-5.4); White Blood Count 4.8 K/mm3 (4.4-11.0)
--- NOTE | 2021-05-09 07:34 | PCM.PN.CARD ---
Subjective Subjective The patient is a right and alert. She has no new complaints. Objective Data Vital Signs: Vital Signs Temp Pulse Resp BP Pulse Ox 97.5 F L 47 L 20 H 121/59 H 98 05/09/21 04:20 05/09/21 06:53 05/09/21 04:20 05/09/21 06:53 05/09/21 04:20 Oxygen Delivery Method CPAP Weight: 152 lb 5.431 oz Body Mass Index (BMI) 27.8 Intake & Output: Intake and Output for Last 24 Hours 05/07/21 05/08/21 05/09/21 23:59 23:59 23:59 Intake Total 240 / 240 1200 / 1200 Output Total Balance 240 / 240 1199 / 1199 Lab / Micro Data Result Diagrams: 05/08/21 05:21 05/08/21 05:21 Cardiology Labs/Tests Rhythm: Sinus rhythm/sinus bradycardia Physical Exam Const alert, oriented x3 and no apparent distress Orientation / Consciousness: awake HEENT normocephalic, head/scalp atraumatic and hearing grossly normal bilaterally Eyes PERRL, EOMs intact bilaterally and conjunctivae normal Neck full ROM, supple and no JVD Chest Chest: midline sternotomy incision Resp clear to auscultation bilaterally Cardio regular rate, regular rhythm, S1 normal heart sound and S2 normal heart sound Heart Sounds: murmur systolic II/ soft mid left sternal border GI normal to inspection, nondistended, normoactive bowel sounds Extremity no pedal edema Skin no rashes or lesions noted Neuro oriented x3, moves all extremities, no focal motor deficits and no sensory deficits noted Psych mental status grossly normal Assessment & Plan Assessment/Plan (1) Atrial fibrillation with RVR: PLAN: The patient has been evaluated in the past by electrophysiology as previously noted. She has had repetitive recurrence of her atrial fibrillation. It appears that she has been placed back on beta-edson therapy and on antiarrhythmic therapy with flecainide/Tambocor to use on a as needed basis. However based upon review of her previous electrophysiology records it appears that there was a recommendation that if she had such recurrences that she would need to be considered for AV node ablation and permanent pacemaker placement. She has been pending transfer back to her donor services coordinator at [facility]. In the interim she was proceeding with further evaluation and care of her other cardiovascular issues. (2) History of mitral valve replacement: PLAN: The patient has undergone mitral valve replacement as previously noted. Her mitral valve prosthesis appears to be stable at this time. She would need to continue [employer] antibiotic prophylaxis. (3) History of maze procedure: PLAN: It appears she has undergone a bilateral maze procedure. Despite this she still has recurrences of her atrial dysrhythmia. Thus it is very reasonable to have the patient be transferred back to her electrophysiology team for additional evaluation care as noted above. (4) S/P left atrial appendage ligation: PLAN: The patient underwent a left atrial appendage ligation procedure as previously noted. Hopefully this will help minimize the risk of any left atrial appendage thrombosis that would occur when if she were not in an anticoagulated state. (5) Acute non-ST elevation myocardial infarction (NSTEMI): PLAN: The patient does have abnormal cardiac enzymes. The etiology may be related to her atrial tachydysrhythmia and a type II event. She does not appear to present with classic acute coronary syndrome type symptoms or other objective findings. However, she may need further definitive evaluation such as diagnostic cardiac catheterization. The procedure and risk was discussed with her. She was agreeable to this approach. She is pending further evaluation with diagnostic cardiac catheterization. Addt'l Comments Overall, she will continue to be monitored, she will continue medical therapy as deemed appropriate, she will proceed with further diagnostic cardiac catheterization as previously discussed. If her cardiac catheterization is unremarkable with respect to concerns of the development/progression of CAD requiring further inpatient evaluation and care, then, with the patient's cardiac rate and rhythm appearing stable, perhaps she can be released home for continued outpatient cardiovascular follow-up with her donor services coordinator as opposed to remaining in the hospital indefinitely pending transfer for further EP consultation/evaluation, etc. The above was discussed with the patient and she was agreeable to this approach. This note was generated using a voice recognition system and there may be incorrect words, spelling or punctuation that were not noted when reviewing the office note prior to saving. Procedure Criteria Type of Procedure Procedure Type: Elective Elective Risks - COVID COVID Risk Discussion: The surgeon/proceduralist and patient have discussed in detail the risk of exposure to and/or potential harm posed by the COVID-19 virus with having a surgery/procedure at this time versus the risk of delaying the surgery/procedure. It is not possible to know either the risk of delaying the surgery or procedure or chance of getting an infection with perfect accuracy, but a joint decision was made between the patient and the surgeon/proceduralist to proceed at this time with the scheduled surgery/procedure as indicated on the consent form.
[2021-05-09 07:35] VITALS: PULSE 47
[2021-05-09 07:39] LABS: International Normalized Ratio 1.4; Prothrombin Time (Protime)PT. 16.7 SECONDS (11.7-14.9)
[2021-05-09 07:48] LABS: ALB/GLOB Ratio 0.7 RATIO (0.9-2.4); AST(SGOT) 23 U/L (15-37); Alanine Aminotransfer ALT/SGPT 32 U/L (13-56); Albumin, Serum 2.8 g/dL (3.2-5.0); Alkaline Phosphatase 69 U/L (45-117); Anion Gap 7 (5-15); BUN 19 mg/dL (7-18); BUN/Creat Ratio 26.6 RATIO (10-20); Calcium,Total 8.7 mg/dL (8.5-10.1); Chloride 110 mmol/L (98-107); Creatinine, Serum 0.71 mg/dL (0.55-1.02); EST Glomerular Filtration Rate 84 mL/min (>60); Est Glom Filt Rate - Afr Amer 102 mL/min (>60); Estimated Creatinine Clearance 36.67 ml/min; Globulin 4.2 g/dL (2.2-4.2); Glucose 77 mg/dL (74-106); Potassium 4.3 mmol/L (3.5-5.1); Sodium Level 138 mmol/L (136-145)
--- NOTE | 2021-05-09 09:01 | CL.D_ITS ---
Patient Name: GLORIA MATHEW Study Date: 05/09/2021 Performing: Polo Falk MD Ht: 61.81 inches 157 cm : 1940 Wt: 152.12 lbs 69 kg Age: 80 Gender: female BSA: 1.7 PROCEDURE(S) PERFORMED DC01-([id number])LHC/COR/LV CLINICAL PROFILE AND INDICATIONS Indications: Suspected CAD, Valvular Disease, Cardiac Arrythmia Heart Failure: None Stress/Imaging Stress/Image Study Performed: No Angina Classification Anginal Classification w/in 2 Weeks: CCS IV (associated with cardiac dysrh ythmia) CAD Presentations: Non-STEMI. CONCLUSIONS Elevated Left Ventricular End Diastolic Pressure Normal LV size, wall motion,and systolic function LVEF: by LV gram 55 % Normal coronary arteries Stabel appearing bioprosthetic mitral valve apparatus Stable appearing AtriCure Clip RECOMMENDATIONS Risk factor modification Medical therapy EP consultation for further evaluation / care of recurrent atrial dysrhythmia DESCRIPTION OF PROCEDURE The patient arrived to the procedure lab. The risks and benefits of the procedure as well as a full d escription of our services here and current unavailability of surgical backup were fully explained to the patient and/or their significant other prior to the catheterization. The Timeout was completed, verifying the correct patient and procedure. The patient's procedural site was prepped and draped in the usual fashion. Local anesthetic was given subcutaneously to right radial region with Lidocaine 2% . Using a modified Seldinger technique, arterial access was obtained via the right radial artery, a 6 Fr sheath was inserted. Left Coronary Artery selective angiography was performed in multiple views u sing a 5 Fr. 4.0 [place] catheter. Right Coronary Artery selective angiography was then performed in mu ltiple views using a 5 Fr. 4.0 [place] catheter. Left Ventriculography was performed in PHILLIPS projection using a 5 Fr. [place] catheter. LV to AO pullback pressures were then recorded.The arterial sheath was pulled and a TR Band was applied for hemostasis w/ 11ml air CORONARY ANGIOGRAPHY DOMINANCE: Right Dominant LEFT HEART ASSESSMENT Left Ventricular Ejection Fraction: by LV Gram 55 % Normal LV wall motion Elevated Left Ventricular End Diastolic Pressure LVEDP: 19 mmHg LEFT MAIN: Angiographically normal LEFT ANTERIOR DESCENDING ARTERY: Angiographically normal CIRCUMFLEX ARTERY: Angiographically normal RIGHT CORONARY ARTERY: Angiographically normal AORTIC ROOT: Angiographically normal COMPLICATIONS No Complications PROCEDURE MEDICATIONS Versed 1 mg IV Fentanyl 50 mcg IV Oxygen: 2 L/min via nasal cannula Heparin given IA 05/09/2021 08:21:18 SUMMARY OF HEMODYNAMIC DATA Time AIR REST ECG 08:05:19 Art 131/55 (82) 08:18:15 AO 107/50 (74) SA 08:27:02 LV 141/-3, 19 08:33:21 LV 142/-3, 19 08:33:28 LV 133/-1, 20 08:34:08 LV 129/-1, 18 08:34:15 LVp 136/-3, 19 08:34:21 AOp 133/58 (89) 08:34:26 Signed By Polo Falk MD On 05/09/2021 9:00:33 AM Polo Falk MD
--- NOTE | 2021-05-09 10:37 | PCM.DC ---
Discharge Instructions Diet Discharge Diet: No restrictions Activity Discharge Activity: Return to Normal Activity Weight Bearing Status: Weight bearing as tolerated Dressing / Incision Call your doctor if you observe: Fever of 101 or Higher, Numbness or Tingling, Shortness of breath, Dizziness, Chest pain, Increased palpitations (irregular heartbeat) and Calf discomfort Follow Up Care Please Follow Up With: Primary care provider When: Within the next two weeks. Test Results: Test results from this visit will be discussed in further detail at your follow-up appointment, if applicable. Discharge Plan Admission Admit Date/Time: 05/06/21 15:36 Primary Reason for Your Visit: Heart palpitations Attending Provider: Romina Ruiz Consulting Providers: Polo Falk Discharge Orders/Prescriptions Prescriptions: Continued alendronate [Fosamax] 70 MG tablet 70 mg PO QWEEK RF: 0 cyanocobalamin (vitamin B-12) 1,000 MCG tablet, sublingual 1,000 mcg sublingual DAILY RF: 0 warfarin [Jantoven] 1 MG tablet 1 mg PO DAILY RF: 0 cholestyramine (with sugar) [Questran] 4 GM powder in packet 4 g PO DAILY RF: 0 cholecalciferol (vitamin D3) [Vitamin D3] 1,000 UNIT tablet 1,000 unit PO DAILY RF: 0 Caltrate 600-D Plus Minerals 1 EACH tablet 1 ea PO DAILY RF: 0 Paco Matrix 5000 1 EACH tablet extended release 1 ea PO DAILY RF: 0 gabapentin 300 mg capsule 600 mg PO DAILY RF: 0 citalopram 10 mg tablet 10 mg PO DAILY RF: 0 simvastatin 10 mg tablet 10 mg PO DAILY RF: 0 metoprolol tartrate 50 MG tablet 50 mg PO BID Qty: 1 RF: 0 flecainide 50 mg tablet 50 mg PO PRN PRN (Reason: Cardiac Arrhythmia) RF: 0 fexofenadine 180 mg Tablet 180 mg PO DAILY RF: 0 pramipexole 0.5 mg tablet 0.75 mg PO QHS RF: 0 gabapentin 300 mg capsule 300 mg PO DAILY RF: 0 ipratropium bromide 42 mcg (0.06 %) spray,non-aerosol 2 spray INTRANASAL BID RF: 0 biotin 1,000 mcg Tablet,Chewable 1,000 mcg PO DAILY RF: 0 Referrals / Follow Up: KEYLA VALLECILLO [Other] - Within 2 Weeks Sebastian Perez MD [NON-STAFF] - Within 2 Weeks (Follow up with Dr. Perez to schedule any additional Cardiac care. ) Disposition Disposition (needs filled in before D/C Order can be placed): Home, Self Care
[2021-05-09 10:46] VITALS: BP 105/47; PULSE 59; RESP 16; TEMP 36.4; O2SAT 98
[2021-05-09] MEDS: Gabapentin 600 MG Tablet PO (10:54)
[2021-05-09] MEDS: Citalopram 10 MG Tablet PO (10:54)
[2021-05-09] MEDS: 0.9% Normal Saline 1,000 ML 75 ML IV (11:21)
[2021-05-09] MEDS: Cholestyramine/Sucrose 4 GM/PACKET PO (12:18)
--- NOTE | 2021-05-09 13:07 | PCM.DC.SUM ---
Documented by User: Speedy CONTRERAS 05/09/21 13:15 Providers Date of Admission: 05/06/21 Date of Discharge: 05/09/21 Primary Care Physician: KEYLA VALLECILLO Consultations 05/07/21 11:16 Consult: Cardiology Routine Consulting Provider: Polo Falk Reason for Consult: AFib EMERGENT Consult: No MD Notified: Yes Date Notified: 05/07/21 Time Notified: 12:00 Method of Notification: Text Reason For Visit: AFIB RVR Diagnosis Discharge Diagnosis (1) Atrial fibrillation with RVR: Status: Resolved Code(s): I48.91 - Unspecified atrial fibrillation (2) History of mitral valve replacement: Status: Chronic Code(s): Z95.2 - Presence of prosthetic heart valve (3) History of maze procedure: Status: Chronic Code(s): Z98.890 - Other specified postprocedural states (4) S/P left atrial appendage ligation: Status: Acute Code(s): Z98.890 - Other specified postprocedural states (5) Acute non-ST elevation myocardial infarction (NSTEMI): Status: Acute Code(s): I21.4 - Non-ST elevation (NSTEMI) myocardial infarction Medications at Discharge Home Medications Caltrate 600-D Plus Minerals 1 ea PO DAILY 05/21/18 [place] Matrix 5000 1 ea PO DAILY 05/21/18 alendronate [Fosamax] 70 mg PO QWEEK 05/21/18 cholecalciferol (vitamin D3) [Vitamin D3] 1,000 unit PO DAILY 05/21/18 cholestyramine (with sugar) [Questran] 4 g PO DAILY 05/21/18 cyanocobalamin (vitamin B-12) 1,000 mcg SUBLINGUAL DAILY 05/21/18 warfarin [Jantoven] 1 mg PO DAILY 05/21/18 citalopram 10 mg PO DAILY 12/31/20 gabapentin 600 mg PO DAILY 12/31/20 metoprolol tartrate 50 mg PO BID #1 tab 02/23/21 simvastatin 10 mg PO DAILY 02/23/21 flecainide 50 mg PO PRN PRN 03/30/21 biotin 1,000 mcg PO DAILY 05/06/21 fexofenadine 180 mg PO DAILY 05/06/21 gabapentin 300 mg PO DAILY 05/06/21 ipratropium bromide 2 spray INTRANASAL BID 05/06/21 pramipexole 0.75 mg PO QHS 05/06/21 Hospital Course Procedures 2-D Echocardiogram, Cardiac catheterization and Transthoracic echo Summary of Care Provided Minutes Spent on Discharge: 35 Hospital Course: Patient is a 80-year-old female who was admitted to the hospital on for evaluation and management of A. fib with RVR and possible NSTEMI. Given patient history, patient was initially supposed to be transferred from [facility] to [facility] for surgical intervention. However, after several days of no bed opening up in alternative plan was developed where patient was to undergo cardiac catheterization at [facility]. Cardiac catheterization demonstrated normal LV size, wall motion and systolic function, an estimated EF of 55%, normal coronary arteries with stable appearing bioprosthetic mitral valve apparatus and stable appearing AtriCure clip. Recommendations from Dr. Falk are that patient continue current home medication regimen and seek evaluation with her primary hydrometeorologist, Dr. Perez, at [facility] for appropriate follow-up care. Patient understands and is agreeable to all. Patient seen by Speedy Sampson PA-C, under the supervision of Dr. Ruiz. Time spent on patient care 25 minutes. Physical Exam Narrative Patient is a 80-year-old female comfortably resting in bed after cardiac catheterization, alert and orient x3. Patient denies development of any new symptoms overnight. Does not appear in acute distress. Const alert, oriented x3 and no apparent distress HEENT normocephalic, head/scalp atraumatic and hearing grossly normal bilaterally Eyes PERRL, EOMs intact bilaterally and conjunctivae normal Neck no lymphadenopathy, supple and no JVD Resp normal respiratory effort, no retractions and no use of accessory muscles Cardio regular rate, regular rhythm, no murmurs and no JVD GI normal to inspection, nondistended, normoactive bowel sounds, soft to palpation and non-tender Extremity normal to inspection, full ROM and no clubbing, cyanosis or edema Skin no rashes or lesions noted, no wounds and skin turgor normal Neuro CN's II-XII intact bilaterally Psych affect normal Weight / BMI Weight Weight: 152 lb 5.431 oz Body Mass Index (BMI) 27.8 ABG / Lab / Microbiology Data Result Diagrams: 05/09/21 07:20 05/09/21 05:54 Laboratory: Laboratory Results - last 24 hr 05/09/21 05:54: Sodium 138, Potassium 4.3, Chloride 110 H, Carbon Dioxide 21.0, Anion Gap 7, BUN 19 H, Creatinine 0.71, Estim Creat Clear Calc 36.67, Est GFR (MDRD) Af Amer 102, Est GFR (MDRD) Non-Af 84, BUN/Creatinine Ratio 26.6 H, Glucose 77, Calcium 8.7, Total Bilirubin 0.90, AST 23, ALT 32, Alkaline Phosphatase 69, Total Protein 7.0, Albumin 2.8 L, Globulin 4.2, Albumin/Globulin Ratio 0.7 L 05/09/21 07:20: WBC 4.8, RBC 4.04 L, Hgb 12.5, Hct 36.2 L, MCV 89.6, MCH 30.9, MCHC 34.5, RDW Std Deviation 40.2, RDW Coeff of [place] 12.4, Plt Count 159, MPV 8.5, Immature Gran % (Auto) 0.200, Neut % (Auto) 61.2, Lymph % (Auto) 22.2, [place] % (Auto) 10.5 H, Eos % (Auto) 4.4, Baso % (Auto) 1.5 H, Absolute Neuts (auto) 2.9, Absolute Lymphs (auto) 1.06, Nucleated RBC % 0 05/09/21 07:20: PT 16.7 H, INR 1.4 Microbiology: Microbiology 05/06/21 13:38 Nasal Secretion SARS-CoV-2 Antigen (Rapid) - Final D/C Instructions Discharge Diet: No restrictions Weight Bearing Status: Weight bearing as tolerated Call your doctor if you observe: Fever of 101 or Higher, Numbness or Tingling, Shortness of breath, Dizziness, Chest pain, Increased palpitations (irregular heartbeat) and Calf discomfort Please Follow Up With: Primary care provider When: Within the next two weeks. Meaningful Use Info Meaningful Use Diagnoses (Choose all that apply): None applicable Discharge Plan Admission Admit Date/Time: 05/06/21 15:36 Primary Reason for Your Visit: Heart palpitations Attending Provider: Romina Ruiz Consulting Providers: Polo Falk Discharge Orders/Prescriptions Prescriptions: Continued alendronate [Fosamax] 70 MG tablet 70 mg PO QWEEK RF: 0 cyanocobalamin (vitamin B-12) 1,000 MCG tablet, sublingual 1,000 mcg sublingual DAILY RF: 0 warfarin [Jantoven] 1 MG tablet 1 mg PO DAILY RF: 0 cholestyramine (with sugar) [Questran] 4 GM powder in packet 4 g PO DAILY RF: 0 cholecalciferol (vitamin D3) [Vitamin D3] 1,000 UNIT tablet 1,000 unit PO DAILY RF: 0 Caltrate 600-D Plus Minerals 1 EACH tablet 1 ea PO DAILY RF: 0 [place] Matrix 5000 1 EACH tablet extended release 1 ea PO DAILY RF: 0 gabapentin 300 mg capsule 600 mg PO DAILY RF: 0 citalopram 10 mg tablet 10 mg PO DAILY RF: 0 simvastatin 10 mg tablet 10 mg PO DAILY RF: 0 metoprolol tartrate 50 MG tablet 50 mg PO BID Qty: 1 RF: 0 flecainide 50 mg tablet 50 mg PO PRN PRN (Reason: Cardiac Arrhythmia) RF: 0 fexofenadine 180 mg Tablet 180 mg PO DAILY RF: 0 pramipexole 0.5 mg tablet 0.75 mg PO QHS RF: 0 gabapentin 300 mg capsule 300 mg PO DAILY RF: 0 ipratropium bromide 42 mcg (0.06 %) spray,non-aerosol 2 spray INTRANASAL BID RF: 0 biotin 1,000 mcg Tablet,Chewable 1,000 mcg PO DAILY RF: 0 Referrals / Follow Up: KEYLA VALLECILLO [Other] - Within 2 Weeks Sebastian Perez MD [NON-STAFF] - Within 2 Weeks (Follow up with Dr. Perez to schedule any additional Cardiac care. ) Disposition Disposition (needs filled in before D/C Order can be placed): Home, Self Care Documented by User: Dr. Romina Ruiz MD 05/11/21 08:39 Providers Date of Admission: 05/06/21 Reason For Visit: AFIB RVR Medications at Discharge Home Medications Caltrate 600-D Plus Minerals 1 ea PO DAILY 05/21/18 [place] Matrix 5000 1 ea PO DAILY 05/21/18 alendronate [Fosamax] 70 mg PO QWEEK 05/21/18 cholecalciferol (vitamin D3) [Vitamin D3] 1,000 unit PO DAILY 05/21/18 cholestyramine (with sugar) [Questran] 4 g PO DAILY 05/21/18 cyanocobalamin (vitamin B-12) 1,000 mcg SUBLINGUAL DAILY 05/21/18 warfarin [Jantoven] 1 mg PO DAILY 05/21/18 citalopram 10 mg PO DAILY 12/31/20 gabapentin 600 mg PO DAILY 12/31/20 metoprolol tartrate 50 mg PO BID #1 tab 02/23/21 simvastatin 10 mg PO DAILY 02/23/21 flecainide 50 mg PO PRN PRN 03/30/21 biotin 1,000 mcg PO DAILY 05/06/21 fexofenadine 180 mg PO DAILY 05/06/21 gabapentin 300 mg PO DAILY 05/06/21 ipratropium bromide 2 spray INTRANASAL BID 05/06/21 pramipexole 0.75 mg PO QHS 05/06/21 ABG / Lab / Microbiology Data Result Diagrams: 05/09/21 07:20 05/09/21 05:54 Discharge Plan Admission Admit Date/Time: 05/06/21 15:36 Primary Reason for Your Visit: Heart palpitations Attending Provider: Romina Ruiz Consulting Providers: Polo Falk Discharge Orders/Prescriptions Prescriptions: Continued alendronate [Fosamax] 70 MG tablet 70 mg PO QWEEK RF: 0 cyanocobalamin (vitamin B-12) 1,000 MCG tablet, sublingual 1,000 mcg sublingual DAILY RF: 0 warfarin [Jantoven] 1 MG tablet 1 mg PO DAILY RF: 0 cholestyramine (with sugar) [Questran] 4 GM powder in packet 4 g PO DAILY RF: 0 cholecalciferol (vitamin D3) [Vitamin D3] 1,000 UNIT tablet 1,000 unit PO DAILY RF: 0 Caltrate 600-D Plus Minerals 1 EACH tablet 1 ea PO DAILY RF: 0 [place] Matrix 5000 1 EACH tablet extended release 1 ea PO DAILY RF: 0 gabapentin 300 mg capsule 600 mg PO DAILY RF: 0 citalopram 10 mg tablet 10 mg PO DAILY RF: 0 simvastatin 10 mg tablet 10 mg PO DAILY RF: 0 metoprolol tartrate 50 MG tablet 50 mg PO BID Qty: 1 RF: 0 flecainide 50 mg tablet 50 mg PO PRN PRN (Reason: Cardiac Arrhythmia) RF: 0 fexofenadine 180 mg Tablet 180 mg PO DAILY RF: 0 pramipexole 0.5 mg tablet 0.75 mg PO QHS RF: 0 gabapentin 300 mg capsule 300 mg PO DAILY RF: 0 ipratropium bromide 42 mcg (0.06 %) spray,non-aerosol 2 spray INTRANASAL BID RF: 0 biotin 1,000 mcg Tablet,Chewable 1,000 mcg PO DAILY RF: 0 Referrals / Follow Up: KEYLA VALLECILLO [Other] - Within 2 Weeks Sebastian Perez MD [NON-STAFF] - Within 2 Weeks (Follow up with Dr. Perez to schedule any additional Cardiac care. ) Disposition Disposition (needs filled in before D/C Order can be placed): Home, Self Care Charges/Coding Addendum Addendum: This patient was seen in conjunction with DIANE Randolph. I have independently interviewed and examined the patient and reviewed pertinent historical, laboratory, and other data. Please refer to DIANE Randolph's note for his patient's presentation, findings, and recommendations. I have reviewed and his note and concur with his documentation 80-year-old female with past medical history of valvular heart disease, atrial fibrillation who comes in with Richar middleton with RVR and found to have elevated troponin. Patient gets most of her care in [facility]. In the ED, patient was accepted by [facility] but they had no beds. She received 200 mg of flecainide and converted to normal sinus rhythm. Patient was monitored in the hospital and in normal sinus rhythm. There were no beds available during her hospital stay for her to be transferred. Cardiology was consulted here and patient underwent cardiac catheterization. Her troponins were unremarkable. Patient will follow up with her hydrometeorologist. She will be resumed back on her Coumadin. On the day of discharge, patient was seen and examined. Denied any new complaints Physical exam: General: Alert, Oriented x3, Cooperative, No apparent distress, Well developed HEENT: Atraumatic Oral: Moist Mucosa Neck: Supple Lungs: Clear to auscultation Cardiovascular: HS I+II, regular, 2/4 holosystolic murmur Abdomen: Bowel Sounds Present, Soft, Non Tender Extremities: No edema Visit Charges Inpatient E&M: 46931 Disch Hosp
== END 2021-05-09 14:49 | disposition home or self-care (01) | DRG 282 ==
LOC: ED 15:48 → PCU 15:57
PROVIDERS: Internal Medicine Cardiovascular Disease; Emergency Provider Emergency Medicine; Visit Provider Internal Medicine
DX: I48.91 Unspecified atrial fibrillation (principal); I21.4 Non-ST elevation (NSTEMI) myocardial infarction; I47.2 Ventricular tachycardia; E78.5 Hyperlipidemia, unspecified; I25.2 Old myocardial infarction; Z95.3 Presence of xenogenic heart valve; Z79.83 Long term (current) use of bisphosphonates; Z95.2 Presence of prosthetic heart valve; Z79.01 Long term (current) use of 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s; Z85.44 Personal history of malignant neoplasm of other female genital organs
CPT/HCPCS: 36415; 71045; 80048; 80053; 83735; 84443; 84484; 85025; 85610; 87426; 93005; 93306; 93458; 96360; 96361; 99152; 99153; 99284; J7030; J7040; A4216; C1769; C1894; Q9967

== ENCOUNTER 2021-05-17 23:57 | Inpatient (IN) | payer MEDICARE, SELFPAY ==
[2021-05-17 23:59] VITALS: BP 68/29; PULSE 205; RESP 20; TEMP 37.1; O2SAT 97; BMI 26.2
[2021-05-18] VITALS (33 sets, daily range): BP systolic 65–133; BP diastolic 50–93; PULSE 79–211; RESP 13–20; TEMP 36.1–37; O2SAT 93–99; BMI 29.5
[2021-05-18] MEDS: Adenosine 6 MG/2 ML Syringe IV (00:09)
[2021-05-18] MEDS: Adenosine 6 MG/2 ML Syringe 12 MG IV ×2 (00:10→00:13)
--- NOTE | 2021-05-18 00:16 | RAD_ITS ---
EXAM: XR CHEST, 1 VIEW CLINICAL INDICATION: Palpitations TECHNIQUE: Frontal view of the chest. This report was created using [employer] report generation technology. COMPARISON: None. FINDINGS: LUNGS AND PLEURAL SPACES: No consolidation. No pleural effusion or pneumothorax. HEART: Cardiomegaly. MEDIASTINUM: Central airways and mediastinal contour are unremarkable. BONES/JOINTS: Intact sternotomy wires. Left atrial appendage clipping identified. SOFT TISSUES: Unremarkable. RAD/Chest 1 View (Portable) IMPRESSION: No acute disease. Electronically Signed: Igor Vega MD at 0:57 EST Tel , Service support ,
--- NOTE | 2021-05-18 00:16 | EKG12_ITS ---
Test Reason : DYSRHYTHMIA Blood Pressure : / mmHG Vent. Rate : 208 BPM Atrial Rate : 208 BPM P-R Int : 000 ms QRS Dur : 162 ms QT Int : 224 ms P-R-T Axes : 000 101 091 degrees QTc Int : 417 ms Wide QRS tachycardia : Consider Atrial Fibrillation with RVR Nonspecific ST and T wave abnormality Consider myocardial ischemia/subendocardial injury Abnormal ECG Confirmed by BRINA WARD, PITO ([id number]), online content editor NIK ROPER ([id number]) on 05/20/2021 11:16:56 AM Referred By: EMERALD Confirmed By:PITO GONSALVES MD
[2021-05-18] MEDS: 0.9% Normal Saline 1,000 ML 999 ML IV (00:21)
[2021-05-18 00:26] LABS: Absolute Lymphocyte Count 1.57 X10^3/uL (0.83-4.51); Absolute Neutrophil Count 3.1 X10^3/uL (2.0-7.7); Basophil% 1.8 % (0-1); Eosinophil# 0.13 X10^3/uL; Eosinophils% 2.4 % (0-5); Hematocrit 44.4 % (37-47); Hemoglobin 15.3 g/dL (12.0-15.0); Lymphocyte # 1.57 X10^3/ul (0.83-4.51); Mean Corp Hgb Conc 34.5 g/dL (32-36); Mean Corpuscular Hgb 30.7 pg (27.0-32.0); Mean Platelet Vol. 8.9 fl (6.2-12.0); Monocyte# 0.52 X10^3/uL; Monocyte% 9.6 % (0-10); NRBC Flagged by Analyzer 0 % (0-5); Neutrophil # 3.08 X10^3/uL (2.7-7.7); Platelet Count 223 K/mm3 (150-450); RBC Distribution Width CV 12.6 % (11.6-14.6); RBC Distribution Width SD 41.2 fl (35.1-43.9); Red Blood Count 4.99 M/mm3 (4.2-5.4); White Blood Count 5.4 K/mm3 (4.4-11.0)
[2021-05-18 00:36] LABS: International Normalized Ratio 2.3; Partial Thromboplast Time 39.7 Seconds (24.1-36.2); Prothrombin Time (Protime)PT. 24.7 SECONDS (11.7-14.9)
[2021-05-18] MEDS: fentaNYL 100 MCG/2 ML Ampul 50 MCG IV (00:40)
[2021-05-18] MEDS: Midazolam 2 MG/2 ML Syringe 2.5 MG IV (00:40)
[2021-05-18 00:56] LABS: Anion Gap 6 (5-15); BUN 24 mg/dL (7-18); BUN/Creat Ratio 26.3 RATIO (10-20); Calcium,Total 9.1 mg/dL (8.5-10.1); Chloride 109 mmol/L (98-107); Creatinine, Serum 0.91 mg/dL (0.55-1.02); EST Glomerular Filtration Rate 63 mL/min (>60); Est Glom Filt Rate - Afr Amer 76 mL/min (>60); Estimated Creatinine Clearance 49.55 ml/min; Glucose 118 mg/dL (74-106); Magnesium 2.3 mg/dL (1.6-2.6); Potassium 3.5 mmol/L (3.5-5.1); Sodium Level 143 mmol/L (136-145); Thyroid Stim Hormone (TSH) 0.99 uIU/mL (0.358-3.74); Troponin-I HS 120 pg/mL (3.0-54.0)
--- NOTE | 2021-05-18 02:17 | PCM.HP.STD ---
HPI - General General Date of Admission: 05/18/21 Date of Service: 05/18/21 Chief Complaint: Palpitations. HPI Narrative The patient is a 80 y/o F w/ PMHx: PAF s/p MAZE, Hx endometrial CA, RLS, Anxiety and Depression, Valvular Heart Disease, recently admitted 05/06/21-05/09/2021 following treatment and evaluation for PAF w/ RVR with concurrent NSTEMI who presents to the [facility] ED on 05/18/21 with history of onset significant palpitations over the last several hours prior to ED presentation with lightheadedness and dizziness in addition to mild generalized chest pressure sensation in the midsternal region rated at its worst 10 out of 10, currently improving with rate improvement with no nausea, emesis or diaphoresis or dyspnea. Work-up in the ED included initial presentation T98.7, heart rate 205, BP 68/29, respiratory rate 20, 97% on room air with respiratory decline eventually placed on a Ventimask with sedation with cardioversion attempts with most recent vital signs heart rate 111, BP 92/72, respiratory rate 16, 96% on a Ventimask with 6 L, CBC with WC 5.4, hemoglobin 15.3, platelet 223 without marked shift, coags with INR 2.3, BMP with chloride 109, BUN/creatinine 24/0.91, glucose 118, troponin 120, magnesium 2.3, TSH 0.99, chest x-ray with no acute cardiopulmonary findings. Patient was shocked with 50, 100, 200, maxed out at 360 with intermittent slowing 200-180-->70 bigeminy-trigeminy and then go right back into 180-200 rate, patient started on amiodarone with bolus and drip. [facility] Medical History (Updated 05/18/21 @ 02:[address] Igor Prince, DO) Acute non-ST elevation myocardial infarction (NSTEMI) Anticoagulated on warfarin Atrial fibrillation Atrial fibrillation with RVR Endometrial cancer Hernia Mitral and aortic valve disease Neuropathy Home Medications Caltrate 600-D Plus Minerals 1 ea PO DAILY 05/21/18 [History Last Taken 05/05/21] Paco Matrix 5000 1 ea PO DAILY 05/21/18 [History Last Taken 05/06/21] alendronate [Fosamax] 70 mg PO QWEEK 05/21/18 [History Last Taken 04/27/21] cholecalciferol (vitamin D3) [Vitamin D3] 1,000 unit PO DAILY 05/21/18 [History Last Taken 05/06/21] cholestyramine (with sugar) [Questran] 4 g PO DAILY 05/21/18 [History Last Taken 05/04/21] cyanocobalamin (vitamin B-12) 1,000 mcg SUBLINGUAL DAILY 05/21/18 [History Last Taken 05/06/21] warfarin [Jantoven] 1 mg PO DAILY 05/21/18 [History Last Taken 05/04/21] citalopram 10 mg PO DAILY 12/31/20 [History Last Taken 05/04/21] gabapentin 600 mg PO DAILY 12/31/20 [History Last Taken 05/05/21] simvastatin 10 mg PO DAILY 02/23/21 [History Last Taken 05/05/21] flecainide 50 mg PO PRN PRN 03/30/21 [History Last Taken 05/05/20] biotin 1,000 mcg PO DAILY 05/06/21 [History Last Taken 05/05/21] fexofenadine 180 mg PO DAILY 05/06/21 [History Last Taken 05/05/21] gabapentin 300 mg PO BID 05/06/21 [History Last Taken 05/06/21] ipratropium bromide 2 spray INTRANASAL BID 05/06/21 [History Last Taken 05/06/21] pramipexole 0.75 mg PO QHS 05/06/21 [History Last Taken 05/05/21] metoprolol tartrate 25 mg PO BID 05/18/21 [History Last Taken Unknown] Allergy/AdvReac Type Severity Reaction Status Date / Time sertraline [From Zoloft] AdvReac Other Verified 05/18/21 00:02 Family History (Updated 05/18/21 @ 03:[address] Misti Duvall MD) Mother Heart disease CAD (coronary artery disease) Hypertension Father Heart disease Bradycardia Bradycardia requiring pacemaker placement. Surgical History (Updated 05/12/21 @ 00:00 by Carol Oliva) History of cholecystectomy History of hysterectomy for cancer History of maze procedure History of mitral valve replacement S/P ablation operation for arrhythmia S/P left atrial appendage ligation Social History (Updated 05/18/21 @ 02:[address] Misti Duvall MD) household members: none Smoking Status: Never smoker alcohol intake: current alcohol intake frequency: holidays/special occasions only substance use type: does not use ROS ROS Narrative Admission Review of Systems: CONSTITUTIONAL: No weight loss, fever, chills, + weakness or fatigue. HEENT: + LH, dizziness. Eyes: No visual loss, blurred vision, double vision or yellow sclerae. Ears, Nose, Throat: No hearing loss, sneezing, congestion, runny nose or sore throat. SKIN: No rash or itching, lesions, wounds. CARDIOVASCULAR: + Chest pressure, palpitations, LH/dizziness, No edema, orthopnea, syncopal events. RESPIRATORY: No shortness of breath, cough or sputum, wheezing, hemoptysis. GASTROINTESTINAL: No anorexia, nausea, vomiting or diarrhea, abdominal pain, melena, BRBPR. GENITOURINARY: No dysuria, frequency, urgency or retention. NEUROLOGICAL: + LH/dizziness, No headache, syncope, paralysis, ataxia, numbness or tingling in the extremities, focal weakness, change in bowel or bladder control, seizure. MUSCULOSKELETAL: + muscle, back pain, joint pain or stiffness. HEMATOLOGIC: No anemia, bleeding or bruising. LYMPHATICS: No enlarged nodes. No history of splenectomy. PSYCHIATRIC: + history of depression or anxiety. ENDOCRINOLOGIC: No reports of sweating, cold or heat intolerance. No polyuria or polydipsia. ALLERGIES: No history of asthma, hives, eczema or rhinitis. Vital Signs Vital Signs Vital Signs: 05/17/21 23:59 05/18/21 00:02 05/18/21 00:04 Temperature 98.7 F Temperature Source Oral Pulse Rate 205 H Pulse Rate [1 (Initial Baseline)] Pulse Rate [4] Respiratory Rate 20 H Respiratory Rate [1 (Initial Baseline)] Respiratory Rate [4] Respiratory Effort Normal Non-Labored Blood Pressure 68/29 L 87/52 L Blood Pressure [1 (Initial Baseline)] Blood Pressure [4] Blood Pressure Mean 42 63 Blood Pressure Source Blood Pressure Position Blood Pressure Location Pulse Ox 97 Oxygen Delivery Method Room Air Oxygen Delivery Method [2] Oxygen Flow Rate (L/min) Oxygen Flow Rate (L/min) [2] 05/18/21 00:15 05/18/21 00:19 05/18/21 00:26 Temperature Temperature Source Pulse Rate 211 H 149 H 155 H Pulse Rate [1 (Initial Baseline)] Pulse Rate [4] Respiratory Rate 20 H Respiratory Rate [1 (Initial Baseline)] Respiratory Rate [4] Respiratory Effort Blood Pressure 79/54 L Blood Pressure [1 (Initial Baseline)] Blood Pressure [4] Blood Pressure Mean 62 Blood Pressure Source Blood Pressure Position Blood Pressure Location Pulse Ox 99 Oxygen Delivery Method Room Air Oxygen Delivery Method [2] Oxygen Flow Rate (L/min) Oxygen Flow Rate (L/min) [2] 05/18/21 00:39 05/18/21 00:40 05/18/21 01:00 Temperature Temperature Source Pulse Rate 143 H 170 H Pulse Rate [1 (Initial Baseline)] 143 H Pulse Rate [4] 125 H Respiratory Rate 19 H 19 H Respiratory Rate [1 (Initial Baseline)] 18 Respiratory Rate [4] 15 Respiratory Effort Blood Pressure 65/50 L 80/64 L Blood Pressure [1 (Initial Baseline)] 65/50 L Blood Pressure [4] 90/64 Blood Pressure Mean 69 Blood Pressure Source Blood Pressure Position Blood Pressure Location Pulse Ox 99 95 Oxygen Delivery Method Room Air Nasal Cannula Oxygen Delivery Method [2] Nasal Cannula Oxygen Flow Rate (L/min) 2 Oxygen Flow Rate (L/min) [2] 2 05/18/21 01:28 05/18/21 01:37 05/18/21 01:42 Temperature Temperature Source Pulse Rate 169 H 129 H 125 H Pulse Rate [1 (Initial Baseline)] Pulse Rate [4] Respiratory Rate 16 15 15 Respiratory Rate [1 (Initial Baseline)] Respiratory Rate [4] Respiratory Effort Blood Pressure 88/59 L 76/66 L 116/89 H Blood Pressure [1 (Initial Baseline)] Blood Pressure [4] Blood Pressure Mean 68 69 Blood Pressure Source Monitor Blood Pressure Position Semi-Fowlers Blood Pressure Location Right Arm Pulse Ox 96 95 95 Oxygen Delivery Method Nasal Cannula Venturi Mask Venturi Mask Oxygen Delivery Method [2] Oxygen Flow Rate (L/min) 4 6 6 Oxygen Flow Rate (L/min) [2] 05/18/21 01:47 05/18/21 02:00 05/18/21 02:12 Temperature Temperature Source Pulse Rate 130 H 111 H Pulse Rate [1 (Initial Baseline)] Pulse Rate [4] Respiratory Rate 16 16 Respiratory Rate [1 (Initial Baseline)] Respiratory Rate [4] Respiratory Effort Blood Pressure 91/58 L 92/72 Blood Pressure [1 (Initial Baseline)] Blood Pressure [4] Blood Pressure Mean 78 Blood Pressure Source Blood Pressure Position Blood Pressure Location Pulse Ox 97 96 94 Oxygen Delivery Method Room Air Venturi Mask Room Air Oxygen Delivery Method [2] Oxygen Flow Rate (L/min) 6 Oxygen Flow Rate (L/min) [2] Weight Weight: 167 lb 1.766 oz Body Mass Index (BMI) 26.2 Physical Exam Narrative Physical Examination: General: Awake, alert, oriented x 3 and cooperative, seated upright in the ED bed, fatigued, significantly improved she notes since improvement of her heart rate. Skin: Normal color, normal turgor, no icterus, no cyanosis. HEENT: AT/NC, EOMI, PERRLA, mildly dry MM, no carotid bruits or JVD noted. Lungs: CTA bilaterally, moderate effort, mild decrease BL bases, no rales, ronchi or wheezing. Heart: Irregular irregular, improving; no gallop, rub audible. Abdomen: Soft, overweight, NTTP, ND, normal BS, no HSM. Extremities: No cyanosis, clubbing, or edema. Neurological: Patient awake, alert, oriented as noted, cognitive function intact; pupils equally reactive to light and accommodation, cranial nerves II-XII grossly normal, moving all 4 extremities, no focal deficits, strength moderately globally decreased secondary to acute presentation, improved since initial presentation. Psychiatric: Affect appears fatigued, no acute evidence of depressive or anxiety feelings. Results Lab / Micro Data Result Diagrams: 05/18/21 00:20 05/18/21 00:20 Labs: Laboratory Results - last 24 hr 05/18/21 00:20: PT 24.7 H, INR 2.3, APTT 39.7 H 05/18/21 00:20: Sodium 143, Potassium 3.5, Chloride 109 H, Carbon Dioxide 28.0, Anion Gap 6, BUN 24 H, Creatinine 0.91, Estim Creat Clear Calc 49.55, Est GFR (MDRD) Af Amer 76, Est GFR (MDRD) Non-Af 63, BUN/Creatinine Ratio 26.3 H, Glucose 118 H, Calcium 9.1, Magnesium 2.3, Troponin I High Sens 120 H, TSH 0.99 05/18/21 00:20: WBC 5.4, RBC 4.99, Hgb 15.3 H, Hct 44.4, MCV 89.0, MCH 30.7, MCHC 34.5, RDW Std Deviation 41.2, RDW Coeff of Zulma 12.6, Plt Count 223, MPV 8.9, Immature Gran % (Auto) 0.200, Neut % (Auto) 57.0, Lymph % (Auto) 29.0, Dyer % (Auto) 9.6, Eos % (Auto) 2.4, Baso % (Auto) 1.8 H, Absolute Neuts (auto) 3.1, Absolute Lymphs (auto) 1.57, Nucleated RBC % 0 Radiology Impression Chest X-Ray 05/18/21 00:16 IMPRESSION: No acute disease. Electronically Signed: Igor Vega MD at 0:57 EST Tel , Service support , Assessment & Plan Assessment/Plan (1) Atrial fibrillation with rapid ventricular response: (2) Cardiogenic shock: PLAN: The patient is a 80 y/o F w/ PMHx: TRISH on CPAP q HS, PAF s/p MAZE, Hx endometrial CA, RLS, Anxiety and Depression, Valvular Heart Disease, recently admitted 05/06/21-05/09/2021 following treatment and evaluation for PAF w/ RVR with concurrent NSTEMI who presents to the [facility] ED on 05/18/21 with history of onset significant palpitations over the last several hours prior to ED presentation with lightheadedness and dizziness in addition to mild generalized chest pressure sensation in the midsternal region rated at its worst 10 out of 10. #1. Paroxsymal atrial fibrillation w/ RVR with associated cardiogenic shock: EKG in ED w/ atrial fibrillation w/ RVR, failed several attempts to cardiovert, hypotension improved following rate improvement, only received 1L NS. Will admit to PCU as SD, maintain on telemetry, obtain cardiac enzyme serial set, obtain ECHO, continue amiodarone drip, continue judicious hydration, hold on ECHO as recently performed as noted 05/07/21, continue coumadin with INR trending. Cardiology consulted, aware. #2. Acute transient hypoxia: Likely secondary to sedation with cardioversion attempts, currently transitioned now to room air, improved, will continue closely monitor as noted on stepdown status on the PCU. Chest x-ray with no acute cardiopulmonary findings or any evidence of any overload secondary to #1. #3. Valvular heart disease: Status post MVR, 05/07/2021 echocardiogram with LV systolic function normal, EF 55%, moderately enlarged LA, mildly enlarged RA, stable appearing bioprosthetic MV apparatus, moderate TVI, trivial OMEGA, trivial PVI, RVSP 33 mmHg, transmitral diastolic flow velocities suggestive of diastolic dysfunction. #4. History of endometrial cancer: Status post hysterectomy, considered in remission. #5. Anxiety and depression: We will continue patient home escitalopram regimen. #6. Restless leg syndrome: We will continue patient home Mirapex regimen. #7. Hyperlipidemia: Continue home statin regimen. #8. TRISH: We will continue CPAP nightly. #9. DVT prophylaxis: SCDs, continue Coumadin with INR trending. #10. CODE status: Patient [place] is her sister who is present and living will is no currently in place with recommendation to patient sister and herself to discuss these items with case management/social work to assist in setting up. Discussed CODE status at length including difference between FULL code, DNR-CCA and DNR-CC status. Following discussions about the differences in these status, requested Full Code status. Advanced Care Planning Face to Face Time: 16 minutes. Charges/Coding Visit Charges Inpatient E&M: 90582 Init Hosp L3 Procedures Hospitalists Procedures: 49064 Advncd Care Plan 30 Min
--- NOTE | 2021-05-18 02:37 | EX.ED.DYSGE1 ---
HPI History of Present Illness Chief Complaint: Palpitations Narrative Narrative: Patient is a 80-year-old female with a past medical history of atrial fibrillation. She is currently on Coumadin secondary to this. She states she is on metoprolol twice a day and has flecainide to take when she feels like her heart is racing. She states she was getting ready for bed this evening when her heart began to race. Secondary to this she took 100 mg of flecainide as directed. Despite doing this there is no improvement of her symptoms and therefore she called EMS to bring her in for evaluation. Otherwise the patient denies any new medications excessive stimulant use/illicit drug use or reasons for electrolyte disturbance such as nausea vomiting or diarrhea [facility] Medical History (Updated 05/18/21 @ 02:[address] Igor Prince, ) Acute non-ST elevation myocardial infarction (NSTEMI) Anticoagulated on warfarin Atrial fibrillation Atrial fibrillation with RVR Endometrial cancer Hernia Mitral and aortic valve disease Neuropathy Home Medications Caltrate 600-D Plus Minerals 1 ea PO DAILY 05/21/18 [History Last Taken 05/05/21] Paco Matrix 5000 1 ea PO DAILY 05/21/18 [History Last Taken 05/06/21] alendronate [Fosamax] 70 mg PO QWEEK 05/21/18 [History Last Taken 04/27/21] cholecalciferol (vitamin D3) [Vitamin D3] 1,000 unit PO DAILY 05/21/18 [History Last Taken 05/06/21] cholestyramine (with sugar) [Questran] 4 g PO DAILY 05/21/18 [History Last Taken 05/04/21] cyanocobalamin (vitamin B-12) 1,000 mcg SUBLINGUAL DAILY 05/21/18 [History Last Taken 05/06/21] warfarin [Jantoven] 1 mg PO DAILY 05/21/18 [History Last Taken 05/04/21] citalopram 10 mg PO DAILY 12/31/20 [History Last Taken 05/04/21] gabapentin 600 mg PO DAILY 12/31/20 [History Last Taken 05/05/21] simvastatin 10 mg PO DAILY 02/23/21 [History Last Taken 05/05/21] flecainide 50 mg PO PRN PRN 03/30/21 [History Last Taken 05/05/20] biotin 1,000 mcg PO DAILY 05/06/21 [History Last Taken 05/05/21] fexofenadine 180 mg PO DAILY 05/06/21 [History Last Taken 05/05/21] gabapentin 300 mg PO BID 05/06/21 [History Last Taken 05/06/21] ipratropium bromide 2 spray INTRANASAL BID 05/06/21 [History Last Taken 05/06/21] pramipexole 0.75 mg PO QHS 05/06/21 [History Last Taken 05/05/21] metoprolol tartrate 25 mg PO BID 05/18/21 [History Last Taken Unknown] Allergy/AdvReac Type Severity Reaction Status Date / Time sertraline [From Zoloft] AdvReac Other Verified 05/18/21 00:02 Family History (Updated 05/18/21 @ 03:[address] Misti Duvall MD) Mother Heart disease CAD (coronary artery disease) Hypertension Father Heart disease Bradycardia Bradycardia requiring pacemaker placement. Surgical History (Updated 05/12/21 @ 00:00 by Carol Oliva) History of cholecystectomy History of hysterectomy for cancer History of maze procedure History of mitral valve replacement S/P ablation operation for arrhythmia S/P left atrial appendage ligation Social History (Updated 05/18/21 @ 02:[address] Misti Duvall MD) household members: none Smoking Status: Never smoker alcohol intake: current alcohol intake frequency: holidays/special occasions only substance use type: does not use ROS ROS ED Constitutional Constitutional ED: Denies chills or fever(s) ENT ENT ED: Denies sore throat Cardiovascular Cardiovascular: Reports palpitations and racing heartbeat; Denies chest pain Respiratory/Chest Respiratory/Chest: Denies cough or dyspnea Gastrointestinal Gastrointestinal: Denies abdominal pain, diarrhea, nausea or vomiting Genitourinary Genitourinary ED: Denies dysuria Musculoskeletal Musculoskeletal: Denies myalgias Integumentary Denies rash Neurologic Neurologic: Denies headache(s) Hematologic/Lymphatic Hematologic/Lymphatic: Reports easy bleeding and easy bruising EXAM Physical Exam Const Vital Signs: 05/17/21 23:59 05/18/21 00:02 05/18/21 00:04 Temperature 98.7 F Temperature Source Oral Pulse Rate 205 H Pulse Rate [1 (Initial Baseline)] Pulse Rate [4] Respiratory Rate 20 H Respiratory Rate [1 (Initial Baseline)] Respiratory Rate [4] Respiratory Effort Normal Non-Labored Blood Pressure 68/29 L 87/52 L Blood Pressure [1 (Initial Baseline)] Blood Pressure [4] Blood Pressure Mean 42 63 Blood Pressure Source Blood Pressure Position Blood Pressure Location Pulse Ox 97 Oxygen Delivery Method Room Air Oxygen Delivery Method [2] Oxygen Flow Rate (L/min) Oxygen Flow Rate (L/min) [2] 05/18/21 00:15 05/18/21 00:19 05/18/21 00:26 Temperature Temperature Source Pulse Rate 211 H 149 H 155 H Pulse Rate [1 (Initial Baseline)] Pulse Rate [4] Respiratory Rate 20 H Respiratory Rate [1 (Initial Baseline)] Respiratory Rate [4] Respiratory Effort Blood Pressure 79/54 L Blood Pressure [1 (Initial Baseline)] Blood Pressure [4] Blood Pressure Mean 62 Blood Pressure Source Blood Pressure Position Blood Pressure Location Pulse Ox 99 Oxygen Delivery Method Room Air Oxygen Delivery Method [2] Oxygen Flow Rate (L/min) Oxygen Flow Rate (L/min) [2] 05/18/21 00:39 05/18/21 00:40 05/18/21 01:00 Temperature Temperature Source Pulse Rate 143 H 170 H Pulse Rate [1 (Initial Baseline)] 143 H Pulse Rate [4] 125 H Respiratory Rate 19 H 19 H Respiratory Rate [1 (Initial Baseline)] 18 Respiratory Rate [4] 15 Respiratory Effort Blood Pressure 65/50 L 80/64 L Blood Pressure [1 (Initial Baseline)] 65/50 L Blood Pressure [4] 90/64 Blood Pressure Mean 69 Blood Pressure Source Blood Pressure Position Blood Pressure Location Pulse Ox 99 95 Oxygen Delivery Method Room Air Nasal Cannula Oxygen Delivery Method [2] Nasal Cannula Oxygen Flow Rate (L/min) 2 Oxygen Flow Rate (L/min) [2] 2 05/18/21 01:28 05/18/21 01:37 05/18/21 01:42 Temperature Temperature Source Pulse Rate 169 H 129 H 125 H Pulse Rate [1 (Initial Baseline)] Pulse Rate [4] Respiratory Rate 16 15 15 Respiratory Rate [1 (Initial Baseline)] Respiratory Rate [4] Respiratory Effort Blood Pressure 88/59 L 76/66 L 116/89 H Blood Pressure [1 (Initial Baseline)] Blood Pressure [4] Blood Pressure Mean 68 69 Blood Pressure Source Monitor Blood Pressure Position Semi-Fowlers Blood Pressure Location Right Arm Pulse Ox 96 95 95 Oxygen Delivery Method Nasal Cannula Venturi Mask Venturi Mask Oxygen Delivery Method [2] Oxygen Flow Rate (L/min) 4 6 6 Oxygen Flow Rate (L/min) [2] 05/18/21 01:47 05/18/21 02:00 05/18/21 02:12 Temperature Temperature Source Pulse Rate 130 H 111 H Pulse Rate [1 (Initial Baseline)] Pulse Rate [4] Respiratory Rate 16 16 Respiratory Rate [1 (Initial Baseline)] Respiratory Rate [4] Respiratory Effort Blood Pressure 91/58 L 92/72 Blood Pressure [1 (Initial Baseline)] Blood Pressure [4] Blood Pressure Mean 78 Blood Pressure Source Blood Pressure Position Blood Pressure Location Pulse Ox 97 96 94 Oxygen Delivery Method Room Air Venturi Mask Room Air Oxygen Delivery Method [2] Oxygen Flow Rate (L/min) 6 Oxygen Flow Rate (L/min) [2] 05/18/21 02:36 Temperature 97.6 F L Temperature Source Temporal Pulse Rate 116 H Pulse Rate [1 (Initial Baseline)] Pulse Rate [4] Respiratory Rate 14 Respiratory Rate [1 (Initial Baseline)] Respiratory Rate [4] Respiratory Effort Blood Pressure 114/66 Blood Pressure [1 (Initial Baseline)] Blood Pressure [4] Blood Pressure Mean 82 Blood Pressure Source Blood Pressure Position Blood Pressure Location Pulse Ox 98 Oxygen Delivery Method Room Air Oxygen Delivery Method [2] Oxygen Flow Rate (L/min) Oxygen Flow Rate (L/min) [2] Positive well nourished and well developed General Appearance ED: well developed HEENT Reports moist mucous membranes Eyes PERRL and EOMs intact bilaterally General Eye ED: Negative for pale conjunctiva Neck supple and no JVD Chest Wall palpation of chest normal Resp normal respiratory effort and clear to auscultation bilaterally Cardio Rate: other Other Details: Tachycardic rate with regular rhythm radial pulses are plus 2 out of 4 bilaterally are equal and symmetric GI normal to inspection, nondistended, normoactive bowel sounds, non-tender, non-distended and no masses GI Narrative: No voluntary guarding or rigidity no pulsatile mass Auscultation: normoactive bowel sounds Palpation: soft Extremity normal to inspection Extremity Narrative: No asymmetric edema no pitting edema negative Homans' sign bilaterally Neuro oriented x3 and CN's II-XII intact bilaterally Sensorium / Orientation: alert Motor Exam: strength 5/5 throughout Psych mental status grossly normal Skin no rashes or lesions noted Skin Narrative: Skin is slightly pale in color MDM MDM MDM Narrative Medical decision making narrative: Patient presented to the ER extremely tachycardic at approximately 210 bpm. The rhythm seemed more regular but that could be related to the fast rate. There was concern she was in supraventricular tachycardia so she was given 6 then 12 and 12 mg of adenosine. Despite giving her 3 doses there was no improvement or resolution of her cardiac dysrhythmia. She was awake and alert protecting her airway so there is no need for intubation but her blood pressure was hypotensive secondary to the fast rate and inability of the heart to fill. Based on the hypotension I could not provide a rate controlling medication such as Lopressor or Cardizem. Secondary to this I discussed the case with cardiology on-call and they agree with performing a cardioversion at this time based on the patient's persistent tachycardia and hypotension. Patient was given 2.5 mg of Versed and 50 mg of fentanyl for sedation. Following this she underwent synchronized cardioversion at 50, 100, 200, then 360 J of energy. Cardioversion reduced the patient's rate but she remained in an abnormal heart rhythm with bouts of bigeminy and trigeminy and then would convert back into her tachycardic rate once again. As cardioversion did not resolve the dysrhythmia I discussed the case with cardiology once more. They recommend patient be started on amiodarone bolus and drip which was added and did help to gradually correct the rate and blood pressure. Work-up revealed no signs of electrolyte dysfunction and her troponin was elevated consistent with her rate. At this time as she is requiring persistent IV treatment for her tachycardia she cannot be discharged and therefore be admitted to the hospital for further treatment Lab Data Attestation: I reviewed the patient's lab results. Labs: Laboratory Results - last 24 hr 05/18/21 05/18/21 05/18/21 00:20 00:20 00:20 WBC 5.4 RBC 4.99 Hgb 15.3 H Hct 44.4 MCV 89.0 MCH 30.7 MCHC 34.5 RDW Std Deviation 41.2 RDW Coeff of Zulma 12.6 Plt Count 223 MPV 8.9 Immature Gran % (Auto) 0.200 Neut % (Auto) 57.0 Lymph % (Auto) 29.0 Williams % (Auto) 9.6 Eos % (Auto) 2.4 Baso % (Auto) 1.8 H Absolute Neuts (auto) 3.1 Absolute Lymphs (auto) 1.57 Nucleated RBC % 0 PT 24.7 H INR 2.3 APTT 39.7 H Sodium 143 Potassium 3.5 Chloride 109 H Carbon Dioxide 28.0 Anion Gap 6 BUN 24 H Creatinine 0.91 Estim Creat Clear Calc 49.55 Est GFR (MDRD) Af Amer 76 Est GFR (MDRD) Non-Af 63 BUN/Creatinine Ratio 26.3 H Glucose 118 H Calcium 9.1 Magnesium 2.3 Troponin I High Sens 120 H TSH 0.99 Radiography Diagnostic Testing: Clinical Impression(s) from Imaging Studies Chest X-Ray 05/18/21 00:16 IMPRESSION: No acute disease. Electronically Signed: Igor Vega MD at 0:57 EST Tel , Service support , Critical Care Time Critical Care Time: Yes Critical care time (excluding procedures): - (Please note critical care time of 43 minutes) Discharge Plan Dx/Rx/DC Orders Clinical Impression: Atrial fibrillation with rapid ventricular response, Cardiogenic shock Disposition Disposition: Acute Care [facility]
--- NOTE | 2021-05-18 04:19 | EKG12_ITS ---
Test Reason : CP ADMIT Blood Pressure : / mmHG Vent. Rate : 086 BPM Atrial Rate : 441 BPM P-R Int : 000 ms QRS Dur : 096 ms QT Int : 410 ms P-R-T Axes : 000 051 056 degrees QTc Int : 490 ms Atrial fibrillation Prolonged QT Abnormal ECG When compared with ECG of 18-MAY-2021 00:04, MANUAL COMPARISON REQUIRED, DATA IS UNCONFIRMED Confirmed by ANTHONY WARD, LAMONT ([id number]), supervising editor news reel [id number] [email or web address] [id number]) on 05/21/2021 9:27:09 AM Referred By: DR FRYE Confirmed By:LAMONT CRUZ MD
--- NOTE | 2021-05-18 04:25 | PCS.PANDOC ---
PANDEMIC DOCUMENTATION INITIATED: Date: 12/17/2020 Time: 190
[2021-05-18] MEDS: 0.9% Normal Saline 1,000 ML 100 ML IV ×2 (04:28→14:45)
[2021-05-18 05:11] LABS: ALB/GLOB Ratio 0.9 RATIO (0.9-2.4); AST(SGOT) 40 U/L (15-37); Alanine Aminotransfer ALT/SGPT 56 U/L (13-56); Albumin, Serum 3.2 g/dL (3.2-5.0); Alkaline Phosphatase 99 U/L (45-117); Anion Gap 8 (5-15); BUN 21 mg/dL (7-18); BUN/Creat Ratio 26.9 RATIO (10-20); Calcium,Total 7.9 mg/dL (8.5-10.1); Chloride 111 mmol/L (98-107); Creatinine, Serum 0.78 mg/dL (0.55-1.02); EST Glomerular Filtration Rate 76 mL/min (>60); Est Glom Filt Rate - Afr Amer 92 mL/min (>60); Estimated Creatinine Clearance 36.67 ml/min; Globulin 3.4 g/dL (2.2-4.2); Glucose 118 mg/dL (74-106); Potassium 3.7 mmol/L (3.5-5.1); Protein, Total 6.6 g/dL (6.4-8.2); Sodium Level 141 mmol/L (136-145); Troponin-I HS 2813 pg/mL (3.0-54.0)
[2021-05-18 06:38] LABS: Absolute Lymphocyte Count 1.09 X10^3/uL (0.83-4.51); Absolute Neutrophil Count 3.8 X10^3/uL (2.0-7.7); Basophil# 0.05 X10^3/uL; Basophil% 0.9 % (0-1); Eosinophil# 0.06 X10^3/uL; Eosinophils% 1.1 % (0-5); Hematocrit 35.9 % (37-47); Hemoglobin 11.9 g/dL (12.0-15.0); Lymphocyte # 1.09 X10^3/ul (0.83-4.51); Lymphocyte % 19.6 % (19-41); Mean Corp Hgb Conc 33.1 g/dL (32-36); Mean Corpuscular Hgb 30.6 pg (27.0-32.0); Mean Corpuscular Volume 92.3 fL (81-99); Mean Platelet Vol. 8.5 fl (6.2-12.0); Monocyte# 0.53 X10^3/uL; Monocyte% 9.5 % (0-10); NRBC Flagged by Analyzer 0 % (0-5); Neutrophil # 3.82 X10^3/uL (2.7-7.7); Neutrophil % 68.5 % (47-70); Platelet Count 138 K/mm3 (150-450); RBC Distribution Width SD 43.6 fl (35.1-43.9); Red Blood Count 3.89 M/mm3 (4.2-5.4); White Blood Count 5.6 K/mm3 (4.4-11.0)
[2021-05-18 07:04] LABS: Troponin-I HS 4476 pg/mL (3.0-54.0)
[2021-05-18] MEDS: Cholestyramine/Sucrose 4 GM/PACKET PO (09:17)
[2021-05-18] MEDS: Citalopram 10 MG Tablet PO (09:17)
[2021-05-18] MEDS: Gabapentin 300 MG Capsule PO ×2 (09:17→20:29)
--- NOTE | 2021-05-18 12:20 | CON.PCM.CA_ITS ---
Assessment & Plan Assessment/Plan (1) Atrial fibrillation with rapid ventricular response: PLAN: The patient returns with atrial fibrillation with RVR. At the present time she is in the PCU. She is being monitored. She has been treated medically with additional rate limiting/antiarrhythmic therapy. At the present time an attempt will be made to alter her back to her beta- edson therapy. Her IV amiodarone, based upon the aforementioned history, will be placed on hold. As previously noted during her recent hospitalization it appears from an electrophysiology standpoint the recommendation has been for consideration for an AV node ablation and permanent pacemaker placement. Thus, at the present time, it would be recommended an attempt be made to transfer the patient to [facility] for further cardiology/electrophysiology evaluation and care. (2) S/P Maze operation for atrial fibrillation: PLAN: The patient has undergone previous maze procedure. According to medical records obtained from [facility] dated 05-23-2018 it appeared the patient underwent a bilateral maze procedure on 04-16-2018 during her open heart surgery. Hopefully this will help minimize her risk of areas for atrial fibrillation generated thrombus, etc. (3) S/P left atrial appendage ligation: PLAN: The patient has also undergone evaluation and care with a left atrial appendage ligation procedure. According to medical records obtained from [facility] dated 05-31-2018 this was performed with a number 45 mm AtriaCure clip (performed on 04-16-2018) Again hopefully this will help minimize the potential for the patient to form interatrial thrombus during her atrial fibrillation. (4) S/P MVR (mitral valve replacement): PLAN: The patient also has undergone mitral valve replacement as noted. Again, based upon previous [facility] records dated 05-23-2018 it appears the patient underwent open heart surgery on 04-16-2018 and received a number 29 mm [place] [employer] epic mitral valve bioprosthesis. The patient will continue [employer] antibiotic prophylaxis. Addt'l Comments Overall, at the present time, the patient will continue to be monitored. Her medications will be adjusted as tolerated. Again, it would be recommended that an attempt to be made to transfer the patient to [facility] to the care of her electrophysiology team for further evaluation care of her recurrent atrial fibrillation with consideration for AV node ablation and p ermanent pacemaker placement. This note was generated using a voice recognition system and there may be incorrect words, spelling or punctuation that were not noted when reviewing the office note prior to saving. HPI Consult Data Date of Consult: 05/18/21 HPI Narrative HPI Narrative: GLORIA MATHEW, is a 80 year old white female who presents for cardiovascular evaluation based upon recurrent atrial fibrillation with RVR superimposed upon a history of MVR, status post maze procedure, status post left atrial appendage ligation pending upcoming [facility] electrophysiology evaluation (05-24-2021). The patient was recently evaluated at [facility] on 05-07-2021 for concerns of her recurrent atrial dysrhythmia/fibrillation with RVR and concerns of abnormal cardiac enzymes. Of note, she had been previously evaluated by Real Gibson MD, in 2018 for concerns of underlying cardiac dysrhythmias for which she was evaluated at [facility]. At that time there was concerns of underlying torsade de pointes. Based upon information obtained there were concerns that she had a QT interval prolongation secondary to amiodarone therapy and bradycardia. According to the EP consultation she had polymorphic ventricular tachycardia likely related to QT prolongation and bradycardia. Her amiodarone therapy and beta-edson therapy were placed on hold. She was not recommended for additional antiarrhythmic therapy at that time. As her [facility] course continued she underwent noninvasive and invasive cardiovascular evaluation by general cardiology and electrophysiology and subsequently required medical management and mitral valve replacement. Based upon review of outside medical records there were comments made if she had recurrent atrial fibrillation with RVR she would need to be evaluated by EP for consideration for AV node ablation and permanent pacemaker placement. In the interim she was placed back on a beta-edson and on as needed flecainide/Tambocor therapy. During her recent evaluation there were concerns of abnormal cardiac enzymes. She underwent diagnostic cardiac catheterization. The results are noted below. She was not found to have angiographically significant CAD and required no revascularization therapy. She was eventually released home to continue to follow with her [facility] electrophysiology team. At the time of her release she was noted to be in sinus rhythm. She was continuing medical therapy. She states late yesterday evening she noted the abrupt return home her atrial fibrillation which she does not tolerate well. She attempted her medical therapy with her as needed flecainide/Tambocor therapy. It was unsuccessful. She presented to the [facility] emergency department. There she was evaluated with IV adenosine and attempt to further define her cardiac rhythm. It appears compatible with her atrial fibrillation with RVR. She underwent synchronized biphasic DC cardioversion x4 times. She did not regain sinus rhythm at that time. She was subsequently placed on additional medical therapy which included IV amiodarone. She was transferred to the PCU for further evaluation and care. Today she remains in atrial fibrillation. Her ventricular rate has slowed. She states she feels better overall. She is not complaining of ongoing chest discomfort this time. She has not had a cute CHF or pulmonary edema. There is been no loss of consciousness. She has undergone additional cardiac enzyme profile. Similar to her previous evaluation, which occurred with her atrial fibrillation, her cardiac enzymes have been elevated. Her ECG demonstrated atrial fibrillation with RVR. [facility] Medical History (Updated 05/18/21 @ 04:33 by Abigail Dove) Acute non-ST elevation myocardial infarction (NSTEMI) Anticoagulated on warfarin Atrial fibrillation Atrial fibrillation with RVR Depression Endometrial cancer GERD (gastroesophageal reflux disease) Hernia Mitral and aortic valve disease Neuropathy Sleep apnea Home Medications Caltrate 600-D Plus Minerals 1 ea PO DAILY 05/21/18 [History Last Taken 05/05/21] alendronate [Fosamax] 70 mg PO QWEEK 05/21/18 [History Last Taken 04/27/21] cholecalciferol (vitamin D3) [Vitamin D3] 1,000 unit PO DAILY 05/21/18 [History Last Taken 05/06/21] cholestyramine (with sugar) [Questran] 4 g PO DAILY 05/21/18 [History Last Taken 05/04/21] cyanocobalamin (vitamin B-12) 1,000 mcg SUBLINGUAL DAILY 05/21/18 [History Last Taken 05/06/21] warfarin [Jantoven] 1 mg PO QHS 05/21/18 [History Last Taken 05/04/21] citalopram 10 mg PO QHS 12/31/20 [History Last Taken 05/04/21] simvastatin 10 mg PO QHS 02/23/21 [History Last Taken 05/05/21] flecainide 50 mg PO PRN PRN 03/30/21 [History Last Taken 05/05/20] biotin 1,000 mcg PO DAILY 05/06/21 [History Last Taken 05/05/21] gabapentin 300 mg PO BID 05/06/21 [History Last Taken 05/06/21] ipratropium bromide 2 spray INTRANASAL BID 05/06/21 [History Last Taken 05/06/21] pramipexole 0.75 mg PO QHS 05/06/21 [History Last Taken 05/05/21] metoprolol tartrate 25 mg PO BID 05/18/21 [History Last Taken Unknown] Allergy/AdvReac Type Severity Reaction Status Date / Time sertraline [From Zoloft] AdvReac Other Verified 05/18/21 00:02 Family History (Updated 05/18/21 @ 03:[address] Msiti Duvall MD) Mother Heart disease CAD (coronary artery disease) Hypertension Father Heart disease Bradycardia Bradycardia requiring pacemaker placement. Surgical History (Updated 05/18/21 @ 12:[address] Polo Falk MD) History of cholecystectomy History of hysterectomy for cancer History of maze procedure History of mitral valve replacement S/P ablation operation for arrhythmia S/P left atrial appendage ligation S/P left atrial appendage ligation S/P Maze operation for atrial fibrillation S/P MVR (mitral valve replacement) Social History (Updated 05/18/21 @ 02:[address] Misti Duvall MD) household members: none Smoking Status: Never smoker alcohol intake: current alcohol intake frequency: holidays/special occasions only substance use type: does not use ROS Constitutional Constitutional: Reports as per HPI Eyes Eyes: Reports as per HPI ENT HEENT: Reports as per HPI Cardiovascular Cardiovascular: Reports palpitations Respiratory/Chest Respiratory/Chest: Reports as per HPI Gastrointestinal Gastrointestinal: Reports as per HPI Genitourinary Genitourinary: Reports as per HPI Musculoskeletal Musculoskeletal: Reports as per HPI Integumentary Integumentary: Reports as per HPI Neurologic Neurologic: Reports as per HPI Physical Exam Const alert, oriented x3 and no apparent distress Orientation / Consciousness: awake HEENT normocephalic, head/scalp atraumatic and hearing grossly normal bilaterally Eyes PERRL, EOMs intact bilaterally and conjunctivae normal Neck supple and no JVD Chest Chest: midline sternotomy incision Resp clear to auscultation bilaterally Cardio Rhythm: abnormal rhythm irregularly irregular Heart Sounds: S1 normal, S2 normal and murmur systolic II/ soft mid left sternal border GI normal to inspection, nondistended, normoactive bowel sounds Extremity no pedal edema Skin no rashes or lesions noted Neuro oriented x3, moves all extremities, no focal motor deficits and no sensory deficits noted Psych mental status grossly normal Risk Stratification Risk Stratification Applicable: Yes Age >/= 65: Yes >/= 3 CAD Risk Factors (HTN, HLD, DM, family hx of CAD, or current smoker): No Aspirin Use in the Past 7 Days: No Severe Angina (>/= episodes in 24 hours): No EKG ST Changes >/= 0.5mm: Yes Positive Cardiac Marker: Yes JEMAL Risk Stratification Score: 3 JEMAL % Risk: 13% Risk Procedure Criteria Type of Procedure Procedure Type: Elective Elective Risks - COVID COVID Risk Discussion: The surgeon/proceduralist and patient have discussed in detail the risk of exposure to and/or potential harm posed by the COVID-19 virus with having a surgery/procedure at this time versus the risk of delaying the surgery/procedure. It is not possible to know either the risk of delaying the surgery or procedure or chance of getting an infection with perfect accuracy, but a joint decision was made between the patient and the surgeon/proceduralist to proceed at this time with the scheduled surgery/procedure as indicated on the consent form. Objective Data Vital Signs: Vital Signs Temp Pulse Resp BP Pulse Ox 98.2 F 91 19 H 113/93 H 97 05/18/21 09:00 05/18/21 10:00 05/18/21 10:00 05/18/21 10:00 05/18/21 10:00 Oxygen Flow Rate (L/min) [2] 2 Oxygen Flow Rate (L/min) 6 Oxygen Delivery Method [2] Nasal Cannula Oxygen Delivery Method Room Air Weight: 161 lb 2.526 oz Body Mass Index (BMI) 29.5 Intake & Output: Intake and Output for Last 24 Hours 05/16/21 05/17/21 05/18/21 23:59 23:59 23:59 Intake Total 2093. / 2093. Balance 2093. / Lab / Micro Data Result Diagrams: 05/18/21 06:23 05/18/21 04:37 Labs: Laboratory Results - last 24 hr 05/18/21 00:20: PT 24.7 H, INR 2.3, APTT 39.7 H 05/18/21 00:20: Sodium 143, Potassium 3.5, Chloride 109 H, Carbon Dioxide 28.0, Anion Gap 6, BUN 24 H, Creatinine 0.91, Estim Creat Clear Calc 49.55, Est GFR (MDRD) Af Amer 76, Est GFR (MDRD) Non-Af 63, BUN/Creatinine Ratio 26.3 H, Glucose 118 H, Calcium 9.1, Magnesium 2.3, Troponin I High Sens 120 H, TSH 0.99 05/18/21 00:20: WBC 5.4, RBC 4.99, Hgb 15.3 H, Hct 44.4, MCV 89.0, MCH 30.7, MCHC 34.5, RDW Std Deviation 41.2, RDW Coeff of Zulma 12.6, Plt Count 223, MPV 8.9, Immature Gran % (Auto) 0.200, Neut % (Auto) 57.0, Lymph % (Auto) 29.0, [place] % (Auto) 9.6, Eos % (Auto) 2.4, Baso % (Auto) 1.8 H, Absolute Neuts (auto) 3.1, Absolute Lymphs (auto) 1.57, Nucleated RBC % 0 05/18/21 04:37: Sodium 141, Potassium 3.7, Chloride 111 H, Carbon Dioxide 22.0, Anion Gap 8, BUN 21 H, Creatinine 0.78, Estim Creat Clear Calc 36.67, Est GFR (MDRD) Af Amer 92, Est GFR (MDRD) Non-Af 76, BUN/Creatinine Ratio 26.9 H, Glucose 118 H, Calcium 7.9 L, Total Bilirubin 0.40, AST 40 H, ALT 56, Alkaline Phosphatase 99, Troponin I High Sens 2813 H*, Total Protein 6.6, Albumin 3.2, Globulin 3.4, Albumin/Globulin Ratio 0.9 05/18/21 06:23: WBC 5.6, RBC 3.89 L, Hgb 11.9 L, Hct 35.9 L, MCV 92.3, MCH 30.6, MCHC 33.1, RDW Std Deviation 43.6, RDW Coeff of Zulma 13.0, Plt Count 138 L, MPV 8.5, Immature Gran % (Auto) 0.400, Neut % (Auto) 68.5, Lymph % (Auto) 19.6, [place] % (Auto) 9.5, Eos % (Auto) 1.1, Baso % (Auto) 0.9, Absolute Neuts (auto) 3.8, Absolute Lymphs (auto) 1.09, Nucleated RBC % 0 05/18/21 06:23: Troponin I High Sens 4476 H* Micro: Microbiology 05/18/21 02:38 Nasal Secretion SARS-CoV-2 Antigen (Rapid) - Final Cardiology Labs/Tests 05/18/21 00:20: PT 24.7 H, INR 2.3, APTT 39.7 H 05/18/21 00:20: Sodium 143, Potassium 3.5, Chloride 109 H, Carbon Dioxide 28.0, Anion Gap 6, BUN 24 H, Creatinine 0.91, Est GFR (MDRD) Af Amer 76, Est GFR (MDRD) Non-Af 63, BUN/Creatinine Ratio 26.3 H, Glucose 118 H, Calcium 9.1, Magnesium 2.3 05/18/21 00:20: WBC 5.4, RBC 4.99, Hgb 15.3 H, Hct 44.4, MCV 89.0, MCH 30.7, MCHC 34.5, Plt Count 223, MPV 8.9, Immature Gran % (Auto) 0.200, Neut % (Auto) 57.0, Lymph % (Auto) 29.0, [place] % (Auto) 9.6, Eos % (Auto) 2.4, Baso % (Auto) 1.8 H, Absolute Neuts (auto) 3.1, Nucleated RBC % 0 05/18/21 04:37: Sodium 141, Potassium 3.7, Chloride 111 H, Carbon Dioxide 22.0, Anion Gap 8, BUN 21 H, Creatinine 0.78, Est GFR (MDRD) Af Amer 92, Est GFR (MDRD) Non-Af 76, BUN/Creatinine Ratio 26.9 H, Glucose 118 H, Calcium 7.9 L, T otal Bilirubin 0.40 05/18/21 06:23: WBC 5.6, RBC 3.89 L, Hgb 11.9 L, Hct 35.9 L, MCV 92.3, MCH 30.6, MCHC 33.1, Plt Count 138 L, MPV 8.5, Immature Gran % (Auto) 0.400, Neut % (Auto) 68.5, Lymph % (Auto) 19.6, [place] % (Auto) 9.5, Eos % (Auto) 1.1, Baso % (Auto) 0.9, Absolute Neuts (auto) 3.8, Nucleated RBC % 0 Rhythm: Atrial fibrillation EKG: As noted above ECHO: 05-07-2021 Interpretation Summary Left ventricular systolic function is normal. The estimated ejection fraction is 55 %. Mid cavitary false tendon noted. The left atrium is moderately enlarged. The right atrium is mildly enlarged. Stable appearing bioprosthetic mitral valve apparatus. Moderate (2+) tricuspid valve insufficiency. Trivial aortic valve insufficiency. Trivial pulmonic valve insufficiency. Right ventricular systolic pressure estimated to be 33 mmHg. Transmitral diastolic flow velocities suggest diastolic dysfunction (pseudonormal pattern). Cardiac Cath: 05-09-2021 CONCLUSIONS Elevated Left Ventricular End Diastolic Pressure Normal LV size, wall motion,and systolic function LVEF: by LV gram 55 % Normal coronary arteries Stabel appearing bioprosthetic mitral valve apparatus Stable appearing AtriCure Clip RECOMMENDATIONS Risk factor modification Medical therapy EP consultation for further evaluation / care of recurrent atrial dysrhythmia DESCRIPTION OF PROCEDURE The patient arrived to the procedure lab. The risks and benefits of the procedure as well as a full description of our services here and current unavailability of surgical backup were fully explained to the patient and/or their significant other prior to the catheterization. The Timeout was completed, verifying the correct patient and procedure. The patient's procedural site was prepped and draped in the usual fashion. Local anesthetic was given subcutaneously to right radial region with Lidocaine 2%. Using a modified Seldinger technique, arterial access was obtained via the right radial artery, a 6Fr sheath was inserted. Left Coronary Artery selective angiography was performed in multiple views using a 5 Fr. 4.0 Mesilla catheter. Right Coronary Artery selective angiography was then performed in multiple views using a 5 Fr. 4.0 Mesilla catheter. Left Ventriculography was performed in PHILLIPS projection using a 5 Fr. Pigtail catheter. LV to AO pullback pressures were then recorded.The arterial sheath was pulled and a TR Band was applied for hemostasis w/ 11ml air CORONARY ANGIOGRAPHY DOMINANCE: Right Dominant LEFT HEART ASSESSMENT Left Ventricular Ejection Fraction: by LV Gram 55 % Normal LV wall motion Elevated Left Ventricular End Diastolic Pressure LVEDP: 19 mmHg LEFT MAIN: Angiographically normal LEFT ANTERIOR DESCENDING ARTERY: Angiographically normal CIRCUMFLEX ARTERY: Angiographically normal RIGHT CORONARY ARTERY: Angiographically normal AORTIC ROOT: Angiographically normal Radiography Diagnostic Testing: Radiology Impression Chest X-Ray 05/18/21 00:16 IMPRESSION: No acute disease. Electronically Signed: Igor Vega MD at 0:57 EST Tel , Service support ,
--- NOTE | 2021-05-18 13:01 | PN.HOSP_ITS ---
Subjective Subjective Patient seen and examined. She was admitted with a complaint of palpitations. Patient was recently in the hospital from May 06, 2019 due to generalized 2021 was treated for A. fib with RVR and non-STEMI. He started having palpitations again so came back to the ED where she was found to have a heart rate in the 200s. Patient several attempts at cardioversion in the ED and started on amiodarone drip. Patient has no active complaints today. She is on amiodarone drip. She is frustrated that she is back in the hospital for the same condition that she was here for just about a week and a half ago. She denies any nausea, vomiting or dizziness. Review of systems otherwise negative. Objective Data Objective Data Vital Signs: Vital Signs Temp Pulse Resp BP Pulse Ox 98.4 F 84 13 114/63 94 05/18/21 11:00 05/18/21 12:00 05/18/21 12:00 05/18/21 12:00 05/18/21 12:00 Oxygen Flow Rate (L/min) [2] 2 Oxygen Flow Rate (L/min) 6 Oxygen Delivery Method [2] Nasal Cannula Oxygen Delivery Method Room Air Weight: 161 lb 2.526 oz Body Mass Index (BMI) 29.5 Intake & Output: Intake and Output for Last 24 Hours 05/16/21 05/17/21 05/18/21 23:59 23:59 23:59 Intake Total 2128.17 / 2128.17 Balance 2128.17 / 2128.17 Lab / Micro Data Result Diagrams: 05/18/21 06:23 05/18/21 04:37 Labs: Laboratory Results - last 24 hr 05/18/21 00:20: PT 24.7 H, INR 2.3, APTT 39.7 H 05/18/21 00:20: Sodium 143, Potassium 3.5, Chloride 109 H, Carbon Dioxide 28.0, Anion Gap 6, BUN 24 H, Creatinine 0.91, Estim Creat Clear Calc 49.55, Est GFR (MDRD) Af Amer 76, Est GFR (MDRD) Non-Af 63, BUN/Creatinine Ratio 26.3 H, Gl ucose 118 H, Calcium 9.1, Magnesium 2.3, Troponin I High Sens 120 H, TSH 0.99 05/18/21 00:20: WBC 5.4, RBC 4.99, Hgb 15.3 H, Hct 44.4, MCV 89.0, MCH 30.7, MCHC 34.5, RDW Std Deviation 41.2, RDW Coeff of Zulma 12.6, Plt Count 223, MPV 8.9, Immature Gran % (Auto) 0.200, Neut % (Auto) 57.0, Lymph % (Auto) 29.0, [place] % (Auto) 9.6, Eos % (Auto) 2.4, Baso % (Auto) 1.8 H, Absolute Neuts (auto) 3.1, Absolute Lymphs (auto) 1.57, Nucleated RBC % 0 05/18/21 04:37: Sodium 141, Potassium 3.7, Chloride 111 H, Carbon Dioxide 22.0, Anion Gap 8, BUN 21 H, Creatinine 0.78, Estim Creat Clear Calc 36.67, Est GFR (MDRD) Af Amer 92, Est GFR (MDRD) Non-Af 76, BUN/Creatinine Ratio 26.9 H, Glucose 118 H, Calcium 7.9 L, Total Bilirubin 0.40, AST 40 H, ALT 56, Alkaline Phosphatase 99, Troponin I High Sens 2813 H*, Total Protein 6.6, Albumin 3.2, Globulin 3.4, Albumin/Globulin Ratio 0.9 05/18/21 06:23: WBC 5.6, RBC 3.89 L, Hgb 11.9 L, Hct 35.9 L, MCV 92.3, MCH 30.6, MCHC 33.1, RDW Std Deviation 43.6, RDW Coeff of Zulma 13.0, Plt Count 138 L, MPV 8.5, Immature Gran % (Auto) 0.400, Neut % (Auto) 68.5, Lymph % (Auto) 19.6, [place] % (Auto) 9.5, Eos % (Auto) 1.1, Baso % (Auto) 0.9, Absolute Neuts (auto) 3.8, Absolute Lymphs (auto) 1.09, Nucleated RBC % 0 05/18/21 06:23: Troponin I High Sens 4476 H* Micro: Microbiology 05/18/21 02:38 Nasal Secretion SARS-CoV-2 Antigen (Rapid) - Final Radiography Diagnostic Testing: Radiology Impression Chest X-Ray 05/18/21 00:16 IMPRESSION: No acute disease. Electronically Signed: Igor Vega MD at 0:57 EST Tel , Service support , Physical Exam Const alert, oriented x3 and no apparent distress Exam Limitations: no limitations HEENT head/scalp atraumatic and moist oral mucous membranes Head and Scalp: normocephalic Eyes PERRL, EOMs intact bilaterally and conjunctivae normal Neck no lymphadenopathy Resp normal respiratory effort, no retractions, no use of accessory muscles and clear to auscultation bilaterally Cardio Cardio Narrative: irregularly irregular rhythm, rate controlled. normal S1 and S2, no murmurs. GI normal to inspection, nondistended, normoactive bowel sounds, soft to palpation, non-tender and non-distended Extremity normal to inspection, full ROM and no clubbing, cyanosis or edema Peripheral Pulses: Yes pulses 2+ throughout Skin no rashes or lesions noted Neuro oriented x3, CN's II-XII intact bilaterally and moves all extremities Sensorium / Orientation: awake and alert Psych affect normal Assessment & Plan Assessment/Plan (1) S/P Maze operation for atrial fibrillation: (2) Atrial fibrillation with rapid ventricular response: PLAN: #Afib with RVR * had sevral failed attempts to cardiovert; was in shock as well bt hypotension resolved once HR improved * on amiodarone drip which has been discontinued by cardiology * cardiology on board; recommend transfer to [facility] for av karin ablation therapy and pacemaker placement. * on coumadin. INR is therapeutic * had a maze procedure with left atrial appendage ligation in 2017. 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 * 2D echo in May 2021 showed EF of 55%, with moderately enlarged LA, mildly enlarged right atrium and stable appearing bioprosthetic mitral valve apparatus #History of endometrial cancer: s/p hysterectomy. Stable #Anxiety and depression; on excitalopram #Restless leg syndrome: on mirapex #Hyperlipidemia: on statin #TRISH: on CPAP qhs. DVT prophylaxis: coumadin. INR is therapeutic. Disposition: transfer to [facility] for evaluation by EP. evaluation. Charges/Coding Visit Charges Inpatient E&M: 30348 Subs Hosp L3
[2021-05-18] MEDS: Metoprolol Tartrate 50 MG Tablet PO ×2 (13:16→20:29)
--- NOTE | 2021-05-18 19:37 | NURSING ---
This RN called report to [facility] Lucie RN. Scheduled pickup time 2029 tonight. Updated nightshift RN that report has been called.
[2021-05-18] MEDS: Pramipexole Di-HCl 0.25 MG Tablet 0.75 MG PO (20:28)
[2021-05-18] MEDS: Atorvastatin Calcium 10 MG Tablet 5 MG PO (20:29)
--- NOTE | 2021-05-20 08:00 | CASEMGMT ---
Readmission chart review: 05/06-05/09/21 Afib RVR, NSTEMI 05/18/21-current PAF w/ RVR, cardiogenic shock Pt presented to [facility] ED on 05/06/21 for palpitations and was in Afib RVR. Pt had been seen in ED the night prior but had converted and d/c'd home. Attempt was made to transfer pt to [facility](as her sports medicine coordinator and EP physician are there) from ED but they did not have beds available at the time and recommended that pt to be admitted as inpt at [facility] to await bed. Pt converted to SR in ED prior to admission on her own. Pt has hx of bilat maze procedure at [facility] and was told if recurrences of dysrhythmia then would need to be considered for AV node ablation and permanent pacemaker placement. Pt was admitted to PCU with cardiology c/s and testing ordered. Decision was made to cath pt here as no bed at [facility] still after several days and if cath ok, then d/c home to f/u with her cardio/EP. Recommendations were medical therapy, risk factor and EP c/s. Pt was discharged home. Pt returned to [facility] ED 9 days later via EMS for heart racing with HR 210. 3 doses adenosine were given without success and then 4 attempts at cardioversion(as pt was also hypotensive so other meds could not be given) which per note, slowed rate but she remained in an abnormal heart rhythm with bouts of bigeminy and trigeminy and then would convert back into her tachycardic rate once again. Cardiology recommended amio bolus and gtt and admission until possible transfer again. Pt was then transferred later that same day to [facility]. SStmaria esther NARANJO CM
== END 2021-05-18 21:14 | disposition short-term general hospital (02) | DRG 308 ==
LOC: ED 05-18 02:38 → PCU 05-18 03:09
PROVIDERS: Admitting Provider Family Medicine; Emergency Provider Emergency Medicine; Visit Provider Student in an Organized Health Care Education/Training Program
DX: I48.0 Paroxysmal atrial fibrillation (principal); R57.0 Cardiogenic shock; Z95.2 Presence of prosthetic heart valve; E78.5 Hyperlipidemia, unspecified; G25.81 Restless legs syndrome; G47.33 Obstructive sleep apnea (adult) (pediatric); F41.9 Anxiety disorder, unspecified; I25.2 Old myocardial infarction; G62.9 Polyneuropathy, unspecified; Z79.01 Long term (current) use of 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s; F32.A Depression, unspecified; Z79.83 Long term (current) use of bisphosphonates; R09.02 Hypoxemia; Z79.899 Other long term (current) drug therapy
CPT/HCPCS: 36415; 71045; 80048; 80053; 83735; 84443; 84484; 85025; 85610; 85730; 87426; 92960; 93005; 99152; 99153; 99285; J7030; A4216; J0153

== ENCOUNTER 2021-05-31 10:54 | Outpatient (RCR) | payer MEDICARE, SELFPAY ==
[2021-05-06 02:29] VITALS: BMI 26.7
[2021-05-24 11:35] LABS: INR Fingerstick 1.5; Prothrombin Time Fingerstick 18.3 SEC (11.9-14.4)
[2021-05-31 11:01] LABS: INR Fingerstick 2.4; Prothrombin Time Fingerstick 27.4 SEC (11.9-14.4)
== END 2021-06-03 18:00 | disposition home or self-care (01) ==
LOC: LAB 10:54
PROVIDERS: Referring Provider Internal Medicine Cardiovascular Disease; Visit Provider Internal Medicine Cardiovascular Disease
DX: I48.0 Paroxysmal atrial fibrillation (principal); Z95.3 Presence of xenogenic heart valve
CPT/HCPCS: 36416; 85610

== ENCOUNTER 2021-06-06 14:22 | Outpatient (CLI) | payer MEDICARE, SELFPAY ==
[2021-06-06 14:41] LABS: Absolute Lymphocyte Count 1.35 X10^3/uL (0.83-4.51); Absolute Neutrophil Count 4.7 X10^3/uL (2.0-7.7); Basophil# 0.12 X10^3/uL; Basophil% 1.7 % (0-1); Eosinophil# 0.21 X10^3/uL; Hematocrit 40.7 % (37-47); Hemoglobin 13.9 g/dL (12.0-15.0); Lymphocyte # 1.35 X10^3/ul (0.83-4.51); Lymphocyte % 19.1 % (19-41); Mean Corp Hgb Conc 34.2 g/dL (32-36); Mean Corpuscular Hgb 31.7 pg (27.0-32.0); Mean Corpuscular Volume 92.7 fL (81-99); Mean Platelet Vol. 8.6 fl (6.2-12.0); Monocyte% 9.9 % (0-10); NRBC Flagged by Analyzer 0 % (0-5); Neutrophil # 4.66 X10^3/uL (2.7-7.7); Neutrophil % 65.9 % (47-70); Platelet Count 236 K/mm3 (150-450); RBC Distribution Width CV 13.2 % (11.6-14.6); RBC Distribution Width SD 44.4 fl (35.1-43.9); Red Blood Count 4.39 M/mm3 (4.2-5.4); White Blood Count 7.1 K/mm3 (4.4-11.0)
== END 2021-06-06 23:59 | disposition short-term general hospital (02) ==
LOC: LAB 14:24
PROVIDERS: Referring Provider Nurse Practitioner Gerontology; Visit Provider Nurse Practitioner Gerontology
DX: I48.91 Unspecified atrial fibrillation (principal)
CPT/HCPCS: 36415; 85025

== ENCOUNTER 2021-07-01 12:58 | Outpatient (RCR) | payer MEDICARE, SELFPAY ==
[2021-06-04 02:18] VITALS: BMI 26.7
[2021-06-17 10:56] LABS: INR Fingerstick 2.5; Prothrombin Time Fingerstick 29.4 SEC (11.9-14.4)
[2021-07-01 13:06] LABS: INR Fingerstick 2.3; Prothrombin Time Fingerstick 26.9 SEC (11.9-14.4)
== END 2021-07-01 23:59 | disposition home or self-care (01) ==
LOC: LAB 12:58
PROVIDERS: Referring Provider Internal Medicine Cardiovascular Disease; Visit Provider Internal Medicine Cardiovascular Disease
DX: I48.0 Paroxysmal atrial fibrillation (principal); Z95.3 Presence of xenogenic heart valve
CPT/HCPCS: 36416; 85610

== ENCOUNTER 2021-07-29 15:51 | Outpatient (RCR) | payer MEDICARE, SELFPAY ==
[2021-07-02 10:26] VITALS: BMI 26.7
[2021-07-29 16:01] LABS: INR Fingerstick 2.9; Prothrombin Time Fingerstick 32.9 SEC (11.7-14.9)
== END 2021-08-01 18:00 | disposition home or self-care (01) ==
LOC: LAB 15:51
PROVIDERS: Referring Provider Internal Medicine Cardiovascular Disease; Visit Provider Internal Medicine Cardiovascular Disease
DX: I48.0 Paroxysmal atrial fibrillation (principal); Z95.3 Presence of xenogenic heart valve
CPT/HCPCS: 36416; 85610

== ENCOUNTER 2021-08-28 15:54 | Outpatient (RCR) | payer MEDICARE, SELFPAY ==
[2021-08-02 03:37] VITALS: BMI 26.7
[2021-08-28 16:45] LABS: INR Fingerstick 2.4; Prothrombin Time Fingerstick 28.2 SEC (11.7-14.9)
== END 2021-08-28 18:00 | disposition home or self-care (01) ==
LOC: LAB 15:54
PROVIDERS: Referring Provider Internal Medicine Cardiovascular Disease; Visit Provider Internal Medicine Cardiovascular Disease
DX: I48.0 Paroxysmal atrial fibrillation (principal); Z95.3 Presence of xenogenic heart valve
CPT/HCPCS: 36416; 85610

== ENCOUNTER 2021-09-25 09:13 | Outpatient (RCR) | payer MEDICARE, SELFPAY ==
[2021-09-01 04:45] VITALS: BMI 26.7
[2021-09-25 09:26] LABS: INR Fingerstick 3.4
== END 2021-09-25 18:00 | disposition home or self-care (01) ==
LOC: LAB 09:13
PROVIDERS: Referring Provider Internal Medicine Cardiovascular Disease; Visit Provider Internal Medicine Cardiovascular Disease
DX: I48.0 Paroxysmal atrial fibrillation (principal); Z95.3 Presence of xenogenic heart valve
CPT/HCPCS: 36416; 85610

== ENCOUNTER 2021-10-05 19:57 | Observation (INO) | payer MEDICARE, SELFPAY ==
[2021-10-05 19:58] VITALS: BP 116/54; PULSE 70; RESP 15; TEMP 36.9; O2SAT 97; BMI 28.3
--- NOTE | 2021-10-05 20:30 | EDS_ITS ---
HPI HPI - Fall History of Present Illness Chief Complaint: Fall Narrative Narrative: Patient was walking and missed a step she fell on her buttock injured her right foot and right buttock and hip region. No head injury no back pain no neck pain no loss of consciousness. She has no chest pain or any other injuries. Pain is moderate and worse when she tries to ambulate. [facility] Medical History Acute non-ST elevation myocardial infarction (NSTEMI) Anticoagulated on warfarin Atrial fibrillation Atrial fibrillation with RVR 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 Depression Endometrial cancer GERD (gastroesophageal reflux disease) Hernia Mitral and aortic valve disease Neuropathy Presence of permanent cardiac pacemaker (~05/20/21) Sleep apnea Home Medications Caltrate 600-D Plus Minerals 1 ea PO DAILY 05/21/18 [History Last Taken 05/05/21] alendronate [Fosamax] 70 mg PO QWEEK 05/21/18 [History Last Taken 04/27/21] cholecalciferol (vitamin D3) [Vitamin D3] 1,000 unit PO DAILY 05/21/18 [History Last Taken 05/06/21] cholestyramine (with sugar) [Questran] 4 g PO DAILY 05/21/18 [History Last Taken 05/04/21] cyanocobalamin (vitamin B-12) 1,000 mcg SUBLINGUAL DAILY 05/21/18 [History Last Taken 05/06/21] citalopram 10 mg PO QHS 12/31/20 [History Last Taken 05/04/21] simvastatin 10 mg PO QHS 02/23/21 [History Last Taken 05/05/21] biotin 1,000 mcg PO DAILY 05/06/21 [History Last Taken 05/05/21] ipratropium bromide 2 spray INTRANASAL BID 05/06/21 [History Last Taken 05/06/21] pramipexole 0.75 mg PO QHS 05/06/21 [History Last Taken 05/05/21] acetaminophen 325 mg tablet 650 mg PO ONCE PRN tab 05/27/21 [History Last Taken Unknown] ascorbic acid (vitamin C) 500 mg tablet 500 mg PO BID 05/27/21 [History Last Taken Unknown] gabapentin 300 mg capsule 600 mg PO BID cap 06/06/21 [History Last Taken Unknown] fexofenadine 180 mg tablet 180 mg PO DAILY 07/09/21 [History Last Taken Unknown] metoprolol tartrate 50 mg tablet 25 mg PO DAILY tab 07/09/21 [History Last Taken Unknown] warfarin 1 mg tablet 1 mg PO QHS #90 tab 08/21/21 [Rx Last Taken Unknown] Allergy/AdvReac Type Severity Reaction Status Date / Time sertraline [From Zoloft] AdvReac Other Verified 10/05/21 20:02 Family History Mother Heart disease CAD (coronary artery disease) Hypertension Father Heart disease Bradycardia Bradycardia requiring pacemaker placement. Surgical History History of cholecystectomy History of hysterectomy for cancer History of maze procedure History of mitral valve replacement Hx of atrioventricular node ablation S/P ablation operation for arrhythmia S/P left atrial appendage ligation S/P left atrial appendage ligation S/P Maze operation for atrial fibrillation S/P MVR (mitral valve replacement) Social History household members: none Smoking Status: Never smoker alcohol intake: current alcohol intake frequency: holidays/special occasions only substance use type: does not use ROS ROS ED ROS Narrative Social: Noncontributory Medications: Reviewed, of note she is on Coumadin Past medical history: Reviewed, significant for A. fib, history of pacemaker, mitral valve prolapse history of pneumonia Review of systems General: Patient has no head injury or loss of consciousness HEENT: No facial injury Neck: No neck pain Cardiovascular: Patient denies any chest pain or palpitations Chest wall: No chest wall contusions Respiratory: There is no shortness of breath GI: There is no nausea vomiting diarrhea or abdominal pain, no abdominal wall contusions Skin: No lacerations or abrasions Neurological: Patient has no memory loss, confusion, or any focal weakness Psychiatric: No recent behavioral changes Back: No back pain, no problems with ambulation Musculoskeletal: Right buttock pain and hip pain. Right foot pain All other systems are reviewed and normal EXAM Physical Exam Narrative Exam Narrative: Physical exam Vitals reviewed General: Does not appear in significant distress, no obvious injuries HEENT: No facial injury Head: No head injury Eyes: Extraocular movements intact Neck: No C-spine tenderness with full range of motion Heart: Regular rate normal pulses Chest wall: No chest wall pain Lungs clear lungs bilaterally with normal inspiration and expiration without tachypnea GI: Abdomen is soft and nontender there is no mass no guarding no abdominal wall contusion : Stable pelvis Musculoskeletal: There is tenderness over the right buttock, she seems to be favoring her hip however when I logroll or flex or extend she has minimal pain. Her pelvis is stable. She has proximal right fifth metatarsal tenderness. No ankle pain. No other extremity injury. Skin: No abrasions or laceration Neurological: Patient is alert and oriented with no focal deficits Const Vital Signs: 10/05/21 19:58 10/05/21 20:14 Temperature 98.4 F Temperature Source Temporal Pulse Rate 70 Respiratory Rate 15 Respiratory Effort Normal Respiratory Depth Normal Blood Pressure 116/54 L Blood Pressure Mean 74 Pulse Ox 97 Oxygen Delivery Method Room Air MDM MDM MDM Narrative Medical decision making narrative: Patient has an unremarkable work-up however I try to ambulate her if she is not able to ambulate. She lives by herself on the third floor and she has to ambulate up 3 flights of steps. She is unable to do this, therefore I will admit her. I did give her analgesia in the ED. Lab Data Labs: Laboratory Results - last 24 hr 10/05/21 10/05/21 10/05/21 20:30 20:30 20:30 WBC 5.6 RBC 3.99 L Hgb 12.4 Hct 36.1 L MCV 90.5 MCH 31.1 MCHC 34.3 RDW Std Deviation 42.7 RDW Coeff of Zulma 13.0 Plt Count 175 MPV 8.9 Immature Gran % (Auto) 0.200 Neut % (Auto) 64.5 Lymph % (Auto) 21.3 Jennings % (Auto) 10.1 H Eos % (Auto) 2.8 Baso % (Auto) 1.1 H Absolute Neuts (auto) 3.6 Absolute Lymphs (auto) 1.20 Nucleated RBC % 0 PT 31.5 H INR 3.1 Sodium 142 Potassium 3.3 L Chloride 111 H Carbon Dioxide 25.0 Anion Gap 6 BUN 22 H Creatinine 0.95 Estim Creat Clear Calc 38.60 Est GFR (MDRD) Af Amer 73 Est GFR (MDRD) Non-Af 61 BUN/Creatinine Ratio 23.2 H Glucose 121 H Calcium 8.5 Total Bilirubin 0.90 AST 17 ALT 28 Alkaline Phosphatase 73 Total Protein 6.3 L Albumin 3.3 Globulin 3.0 Albumin/Globulin Ratio 1.1 Radiography Diagnostic Testing: Clinical Impression(s) from Imaging Studies Chest X-Ray 10/05/21 20:47 IMPRESSION: No active disease. Electronically Signed: Usman Fuller MD at 21:46 EDT Reading Location ID and State: [id number] / [employer] , Service support , Foot X-Ray 10/05/21 20:47 IMPRESSION: No acute fracture or dislocation. Electronically Signed: Usman Fuller MD at 21:47 EDT Reading Location ID and State: [id number] / [employer] , Service support , Hip/Pelvis X-Ray 10/05/21 20:47 IMPRESSION: Normal x-ray examination of the pelvis and hip. Electronically Signed: Usman Fuller MD at 21:44 EDT Reading Location ID and State: [id number] / [employer] , Service support , Discharge Plan Triage Chief Complaint: Fall ED Provider: Polo Ruiz Dx/Rx/DC Orders Clinical Impression: Fall, Contusion of hip Prescriptions: No Action fexofenadine [Allergy Relief (fexofenadine)] 180 mg tablet 180 mg PO DAILY RF: 0 alendronate [Fosamax] 70 MG tablet 70 mg PO QWEEK RF: 0 cyanocobalamin (vitamin B-12) 1,000 MCG tablet, sublingual 1,000 mcg sublingual DAILY RF: 0 cholestyramine (with sugar) [Questran] 4 GM powder in packet 4 g PO DAILY RF: 0 cholecalciferol (vitamin D3) [Vitamin D3] 1,000 UNIT tablet 1,000 unit PO DAILY RF: 0 Caltrate 600-D Plus Minerals 1 EACH tablet 1 ea PO DAILY RF: 0 citalopram 10 mg tablet 10 mg PO QHS RF: 0 simvastatin 10 mg tablet 10 mg PO QHS RF: 0 pramipexole 0.5 mg tablet 0.75 mg PO QHS RF: 0 ipratropium bromide 42 mcg (0.06 %) spray,non-aerosol 2 spray INTRANASAL BID RF: 0 biotin 1,000 mcg Tablet,Chewable 1,000 mcg PO DAILY RF: 0 gabapentin 300 mg capsule 600 mg PO BID RF: 0 acetaminophen 325 mg tablet 650 mg PO ONCE PRNRF: 0 ascorbic acid (vitamin C) 500 mg tablet 500 mg PO BID RF: 0 metoprolol tartrate 50 mg tablet 25 mg PO DAILY RF: 0 warfarin [Jantoven] 1 mg tablet 1 mg PO QHS Qty: 90 RF: 3 Referrals: KALA HOBBS [Other] Disposition Disposition: Acute Care Hospital [facility]
[2021-10-05] MEDS: Ondansetron 4 MG/2 ML Vial IV (20:36)
[2021-10-05] MEDS: Morphine 2 MG/ML Syringe IV (20:36)
[2021-10-05 20:38] LABS: Absolute Neutrophil Count 3.6 X10^3/uL (2.0-7.7); Basophil# 0.06 X10^3/uL; Basophil% 1.1 % (0-1); Eosinophil# 0.16 X10^3/uL; Eosinophils% 2.8 % (0-5); Hematocrit 36.1 % (37-47); Hemoglobin 12.4 g/dL (12.0-15.0); Lymphocyte % 21.3 % (19-41); Mean Corp Hgb Conc 34.3 g/dL (32-36); Mean Corpuscular Hgb 31.1 pg (27.0-32.0); Mean Corpuscular Volume 90.5 fL (81-99); Mean Platelet Vol. 8.9 fl (6.2-12.0); Monocyte# 0.57 X10^3/uL; Monocyte% 10.1 % (0-10); NRBC Flagged by Analyzer 0 % (0-5); Neutrophil # 3.64 X10^3/uL (2.7-7.7); Neutrophil % 64.5 % (47-70); Platelet Count 175 K/mm3 (150-450); RBC Distribution Width SD 42.7 fl (35.1-43.9); Red Blood Count 3.99 M/mm3 (4.2-5.4); White Blood Count 5.6 K/mm3 (4.4-11.0)
--- NOTE | 2021-10-05 20:47 | RAD_ITS ---
STUDY: X-RAY - RIGHT FOOT CLINICAL: Female, 80 years old. trauma TECHNIQUE: 3 view(s) of the foot. COMPARISON: None. FINDINGS: Normal talus, calcaneus, and tarsal bones. Small plantar calcaneal enthesophyte. Normal visualized subtalar, talonavicular, calcaneocuboid, tarsal and tarsometatarsal articulations. Normal metatarsi. There is degenerative arthrosis of the metatarsophalangeal joint of the hallux with a hallux valgus deformity. Normal tibial and fibular sesamoid bones. Normal interphalangeal joint of the great toe. Normal phalanges of the great toe. Normal second through fifth metatarsophalangeal joints. Normal interphalangeal joints and phalanges of the lesser toes. The soft tissue structures are unremarkable. RAD/Foot min 3 Views IMPRESSION: No acute fracture or dislocation. Electronically Signed: Usman Fuller MD at 21:47 EDT ,
--- NOTE | 2021-10-05 20:47 | RAD_ITS ---
STUDY: X-RAY - PELVIS AND RIGHT HIP REASON FOR EXAM: Female, 80 years old. trauma TECHNIQUE: 3 views of the pelvis and hip. COMPARISON: None. FINDINGS: There is a non-specific bowel gas pattern. Normal visualized soft tissue structures. Normal bilateral iliac wings, sacroiliac joints and visualized sacrum. Normal bilateral superior and inferior pubic rami. Normal pubic symphysis. Normal bilateral ischial tuberosities. Normal visualized femoral head. Normal acetabulum. Normal hip joint. RAD/HIP, UNI W/ Pelvis 2-3 Views IMPRESSION: Normal x-ray examination of the pelvis and hip. Electronically Signed: Usman Fuller MD at 21:44 EDT ,
--- NOTE | 2021-10-05 20:47 | RAD_ITS ---
STUDY: X-RAY CHEST REASON FOR EXAM: Female, 80 years old. trauma TECHNIQUE: Single AP portable view of the chest. COMPARISON: 05/18/2021 FINDINGS: Interval placement of left subclavian pacemaker with no pneumothorax. Status post median sternotomy with a left atrial appendage closure device. The lungs are clear and expanded. There is no demonstrated pleural abnormality. There is moderate cardiac enlargement. Normal mediastinum and elana. Normal visualized pulmonary arteries. Normal visualized aortic arch and descending thoracic aorta. Normal visualized thoracic spine. Normal visualized ribs, clavicles, and shoulders. There is no demonstrated abnormality of the visualized soft tissue structures of the upper abdomen. RAD/Chest 1 View (Portable) IMPRESSION: No active disease. Electronically Signed: Usman Fuller MD at 21:46 EDT ,
[2021-10-05 20:51] LABS: International Normalized Ratio 3.1; Prothrombin Time (Protime)PT. 31.5 SECONDS (11.7-14.9)
[2021-10-05 20:56] LABS: ALB/GLOB Ratio 1.1 RATIO (0.9-2.4); AST(SGOT) 17 U/L (15-37); Alanine Aminotransfer ALT/SGPT 28 U/L (13-56); Albumin, Serum 3.3 g/dL (3.2-5.0); Alkaline Phosphatase 73 U/L (45-117); Anion Gap 6 (5-15); BUN 22 mg/dL (7-18); BUN/Creat Ratio 23.2 RATIO (10-20); Calcium,Total 8.5 mg/dL (8.5-10.1); Chloride 111 mmol/L (98-107); Creatinine, Serum 0.95 mg/dL (0.55-1.02); EST Glomerular Filtration Rate 61 mL/min (>60); Est Glom Filt Rate - Afr Amer 73 mL/min (>60); Glucose 121 mg/dL (74-106); Potassium 3.3 mmol/L (3.5-5.1); Protein, Total 6.3 g/dL (6.4-8.2); Sodium Level 142 mmol/L (136-145)
--- NOTE | 2021-10-05 22:15 | PCM.HP.STD ---
HPI - General General Date of Admission: 10/05/21 Date of Service: 10/05/21 Chief Complaint: Fall, right hip and ankle pain. HPI Narrative The patient is a 80 y/o F w/ PMHx: TRISH on CPAP, RLS, CAD, PAF s/p MAZE/ablation, Valvular Heart Disease s/p MVR, Hx complete HB s/p pacemaker placement, HTN, HLD, GERD, Hx endometrial CA s/p hysterectomy, Depression and Anxiety, GERD who presents to the [facility] ED on 10/05/21 with history of mechanical fall earlier in the day with ongoing persistent right ankle and right hip pain prompting eventual ED evaluation. Patient lives on a 3rd floor story with only stairs and is unable to safely care for herself. Attempts in the ED to have her up with ambulation failed, she was unable to even get out of bed. She notes the right ankle is very tender and with palpation reports pain 5-6 out of 10, right posterior buttock/hip pain primarily with load-bearing or with palpation, reporting pain similarly 5-6 out of 10 when this occurs. Work-up in the ED included T98.4, heart rate 70, BP 116/54, respiratory rate 15, 97% on room air, CBC with WC 5.6, 112.4, platelet 175 with no marked shift, coags with INR 3.1, CMP with potassium 3.3, chloride 111, BUN/creat 22/0.95, glucose 121 otherwise Paddock profile unremarkable, chest x-ray with no acute cardiopulmonary findings, plain film of the right foot and ankle with no acute fracture or dislocation, plain film of the right hip and pelvis with no acute osseous finding. In the ED patient ministered Zofran, morphine. [facility] Medical History Acute non-ST elevation myocardial infarction (NSTEMI) Anticoagulated on warfarin Atrial fibrillation Atrial fibrillation with RVR 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 Depression Endometrial cancer GERD (gastroesophageal reflux disease) Hernia Mitral and aortic valve disease Neuropathy Presence of permanent cardiac pacemaker (~05/20/21) Sleep apnea Home Medications Caltrate 600-D Plus Minerals 1 ea PO DAILY 05/21/18 [History Last Taken 05/05/21] alendronate [Fosamax] 70 mg PO QWEEK 05/21/18 [History Last Taken 04/27/21] cholecalciferol (vitamin D3) [Vitamin D3] 1,000 unit PO DAILY 05/21/18 [History Last Taken 05/06/21] cholestyramine (with sugar) [Questran] 4 g PO DAILY 05/21/18 [History Last Taken 05/04/21] cyanocobalamin (vitamin B-12) 1,000 mcg SUBLINGUAL DAILY 05/21/18 [History Last Taken 05/06/21] citalopram 10 mg PO QHS 12/31/20 [History Last Taken 05/04/21] simvastatin 10 mg PO QHS 02/23/21 [History Last Taken 05/05/21] biotin 1,000 mcg PO DAILY 05/06/21 [History Last Taken 05/05/21] ipratropium bromide 2 spray INTRANASAL BID 05/06/21 [History Last Taken 05/06/21] pramipexole 0.75 mg PO QHS 05/06/21 [History Last Taken 05/05/21] acetaminophen 325 mg tablet 650 mg PO ONCE PRN tab 05/27/21 [History Last Taken Unknown] ascorbic acid (vitamin C) 500 mg tablet 500 mg PO BID 05/27/21 [History Last Taken Unknown] gabapentin 300 mg capsule 600 mg PO BID cap 06/06/21 [History Last Taken Unknown] fexofenadine 180 mg tablet 180 mg PO DAILY 07/09/21 [History Last Taken Unknown] metoprolol tartrate 50 mg tablet 25 mg PO DAILY tab 07/09/21 [History Last Taken Unknown] warfarin 1 mg tablet 1 mg PO QHS #90 tab 08/21/21 [Rx Last Taken Unknown] Allergy/AdvReac Type Severity Reaction Status Date / Time sertraline [From Zoloft] AdvReac Other Verified 10/05/21 20:02 Family History Mother Heart disease CAD (coronary artery disease) Hypertension Father Heart disease Bradycardia Bradycardia requiring pacemaker placement. Surgical History History of cholecystectomy History of hysterectomy for cancer History of maze procedure History of mitral valve replacement Hx of atrioventricular node ablation S/P ablation operation for arrhythmia S/P left atrial appendage ligation S/P left atrial appendage ligation S/P Maze operation for atrial fibrillation S/P MVR (mitral valve replacement) Social History household members: none Smoking Status: Never smoker alcohol intake: current alcohol intake frequency: holidays/special occasions only substance use type: does not use ROS ROS Narrative Admission Review of Systems: CONSTITUTIONAL: No weight loss, fever, chills, + weakness or fatigue. HEENT: Eyes: No visual loss, blurred vision, double vision or yellow sclerae. Ears, Nose, Throat: No hearing loss, sneezing, congestion, runny nose or sore throat. SKIN: + Mild ecchymosis with edema to the right ankle, no ecchymosis found on the right hip or buttock currently. CARDIOVASCULAR: No chest pain, chest pressure or chest discomfort, palpitations, edema, orthopnea, syncopal events. RESPIRATORY: No shortness of breath, cough or sputum, wheezing, hemoptysis. GASTROINTESTINAL: No anorexia, nausea, vomiting or diarrhea, abdominal pain, melena, BRBPR. GENITOURINARY: No dysuria, frequency, urgency or retention. NEUROLOGICAL: + Debility with attempted ambulation secondary to right hip and ankle pain. No headache, dizziness, syncope, paralysis, ataxia, numbness or tingling in the extremities, focal weakness, change in bowel or bladder control, seizure. MUSCULOSKELETAL: + muscle, back pain, joint pain or stiffness. HEMATOLOGIC: No anemia, bleeding or bruising. LYMPHATICS: No enlarged nodes. No history of splenectomy. PSYCHIATRIC: + history of depression or anxiety. ENDOCRINOLOGIC: No reports of sweating, cold or heat intolerance. No polyuria or polydipsia. ALLERGIES: + rhinitis. Vital Signs Vital Signs Vital Signs: 10/05/21 19:58 10/05/21 20:14 Temperature 98.4 F Temperature Source Temporal Pulse Rate 70 Respiratory Rate 15 Respiratory Effort Normal Respiratory Depth Normal Blood Pressure 116/54 L Blood Pressure Mean 74 Pulse Ox 97 Oxygen Delivery Method Room Air Weight Weight: 155 lb Body Mass Index (BMI) 28.3 Physical Exam Narrative Physical Examination: General: Awake, alert, oriented x 3 and cooperative, seated upright in ED bed, fatigued, notes right ankle and right hip/buttock pain status post fall Skin: Normal color, normal turgor, no icterus, no cyanosis except for mild ecchymoses to the right ankle with swelling, no ecchymoses noted currently to the right hip or buttock region. HEENT: AT/NC, EOMI, PERRLA, mildly dry MM, no carotid bruits or JVD noted. Lungs: Mildly diminished, greater bases, poor effort, no rales, ronchi or wheezing. Heart: Currently regular rate and rhythm; no gallop, rub audible. Abdomen: Soft, overweight, NTTP, ND, mildly hyperactive BS, no HSM. Extremities: No cyanosis, no clubbing, right ankle with mild tenderness to palpation, edema, mildly ecchymotic change, right hip tender to palpation laterally and inferiorly posteriorly. Neurological: Patient awake, alert, oriented as noted, cognitive function intact; pupils equally reactive to light and accommodation, cranial nerves II-XII grossly normal, moving all 4 extremities however significantly limited right lower extremity given fall and pain, no focal deficits, strength moderately to severely globally decreased. Psychiatric: Affect appears fatigued otherwise normal, no acute evidence of depressive or anxiety feelings. Results Lab / Micro Data Result Diagrams: 10/05/21 20:30 10/05/21 20:30 Labs: Laboratory Results - last 24 hr 10/05/21 20:30: WBC 5.6, RBC 3.99 L, Hgb 12.4, Hct 36.1 L, MCV 90.5, MCH 31.1, MCHC 34.3, RDW Std Deviation 42.7, RDW Coeff of Zulma 13.0, Plt Count 175, MPV 8.9, Immature Gran % (Auto) 0.200, Neut % (Auto) 64.5, Lymph % (Auto) 21.3, [place] % (Auto) 10.1 H, Eos % (Auto) 2.8, Baso % (Auto) 1.1 H, Absolute Neuts (auto) 3.6, Absolute Lymphs (auto) 1.20, Nucleated RBC % 0 10/05/21 20:30: PT 31.5 H, INR 3.1 10/05/21 20:30: Sodium 142, Potassium 3.3 L, Chloride 111 H, Carbon Dioxide 25.0, Anion Gap 6, BUN 22 H, Creatinine 0.95, Estim Creat Clear Calc 38.60, Est GFR (MDRD) Af Amer 73, Est GFR (MDRD) Non-Af 61, BUN/Creatinine Ratio 23.2 H, Glucose 121 H, Calcium 8.5, Total Bilirubin 0.90, AST 17, ALT 28, Alkaline Phosphatase 73, Total Protein 6.3 L, Albumin 3.3, Globulin 3.0, Albumin/Globulin Ratio 1.1 Radiology Impression Chest X-Ray 10/05/21 20:47 IMPRESSION: No active disease. Electronically Signed: Usman Fuller MD at 21:46 EDT Reading Location ID and State: [employer] , Service support , Foot X-Ray 10/05/21 20:47 IMPRESSION: No acute fracture or dislocation. Electronically Signed: Usman Fuller MD at 21:47 EDT Reading Location ID and State: [employer] Tel , Service support , Hip/Pelvis X-Ray 10/05/21 20:47 IMPRESSION: Normal x-ray examination of the pelvis and hip. Electronically Signed: Usman Fuller MD at 21:44 EDT Reading Location ID and State: [employer] , Service support , Assessment & Plan Assessment/Plan (1) Fall: QUALIFIERS: Encounter type: initial encounter Qualified Code(s): W19.XXXA - Unspecified fall, initial encounter (2) Contusion of hip: QUALIFIERS: Encounter type: initial encounter Laterality: right Qualified Code(s): S70.01XA - Contusion of right hip, initial encounter (3) FTT (failure to thrive) in adult: PLAN: The patient is a 80 y/o F w/ PMHx: TRISH on CPAP q HS, RLS, CAD, PAF s/p MAZE/ablation, Valvular Heart Disease s/p MVR, Hx complete HB s/p pacemaker placement, HTN, HLD, GERD, Hx endometrial CA s/p hysterectomy, Depression and Anxiety, GERD who presents to the [facility] ED on 10/05/21 with history of mechanical fall earlier in the day with ongoing persistent right ankle and right hip pain prompting eventual ED evaluation. #1. Mechanical Fall with Debility, Pain without acute Injury, FTT Adult: Will admit to the medical surgical floor, maintain on fall precautions, continue positional changes, continue judicious use of pain regimen with lidocaine patches, PRN oral/IV breakthrough, tylenol regimen, if any concern may consider repeat imaging or CT of hip although ED evaluation with no obvious evidence or high suspicion for fracture, will have PT/OT/case management consultations for discharge planning as patient currently living on the third floor of the three-story building that only has steps to access and certainly at this point is unable to do so and likely will need placed. #2. Hypokalemia: Admission K+ 3.3, magnesium level requested, supplementation given, repeat level in AM. #3. PAF: Patient status post maze/ablation, will continue Coumadin with INR trending as well as metoprolol home regimen. #4. Valvular heart disease: Status post MVR, 05/07/2021 echocardiogram with normal LV systolic function, EF 55%, moderately enlarged LA, mildly enlarged RA, stable appearing bioprosthetic MV apparatus, moderate TVI, trivial OMEGA, trivial PVI, RVSP 33 mmHg, transmitral diastolic flow velocity suggestive of diastolic dysfunction. #5. CAD: We will continue patient home Coumadin with INR trending, metoprolol, statin therapy, not on ANNA inhibitor/ARB. #6. History of complete heart block: Onset 05/2021 with transition to [facility], status post pacemaker placement. #7. GERD: Not currently on regimen per current list, add if clarification noted otherwise. #8. RLS: We will continue patient on Requip regimen. #9. Anxiety and depression: We will continue patient home citalopram regimen. #10. Allergic rhinitis: We will continue patient home nasal ipratropium bromide as well as fexofenadine. #11. History of endometrial cancer: Status post hysterectomy, considered in remission. #12. TRISH: CPAP q HS. #13. DVT prophylaxis: SCDs, continue Coumadin with INR trending. #14. CODE status: Patient DORCAS is her sister who is present with no corresponding living will in place of note. Discussed CODE status at length including difference between FULL code, DNR-CCA and DNR-CC status. Following discussions about the differences in these status, requested Full Code status. Advanced Care Planning Face to Face Time: 16 minutes. Charges/Coding Visit Charges OBSV E&M: 35091 Initial observation care L2 Procedures Hospitalists Procedures: 34082 Advncd Care Plan 30 Min
[2021-10-05 22:35] LABS: Magnesium 1.8 mg/dL (1.6-2.6)
[2021-10-05 22:57] VITALS: BP 134/67; PULSE 77; RESP 18; TEMP 36.6; O2SAT 99
[2021-10-05 23:09] VITALS: BMI 28.8
[2021-10-05 23:24] VITALS: BP 121/47; PULSE 60; RESP 16; TEMP 36.6; O2SAT 94
[2021-10-06] VITALS (10 sets, daily range): BP systolic 107–123; BP diastolic 51–78; PULSE 60–71; RESP 14–18; TEMP 36.6–37.1; O2SAT 92–98
[2021-10-06] MEDS: 0.9% Normal Saline 1,000 ML 100 ML IV (00:04)
[2021-10-06] MEDS: traMADol 50 MG Tablet PO (00:04)
[2021-10-06] MEDS: 0.9% Saline Lock 10 ML Syringe IV (00:05)
[2021-10-06] MEDS: Ipratropium Bromide 0.06% NASAL SPRAY 2 SPRAY NASAL ×3 (00:06→21:15)
[2021-10-06] MEDS: Citalopram 10 MG Tablet PO ×2 (00:07→21:15)
[2021-10-06] MEDS: Atorvastatin Calcium 10 MG Tablet 5 MG PO ×2 (00:08→21:15)
[2021-10-06] MEDS: Pramipexole Di-HCl 0.25 MG Tablet 0.75 MG PO ×2 (00:08→21:15)
[2021-10-06] MEDS: Potassium Chloride Oral Tablet 20 MEQ 40 MEQ PO (00:11)
[2021-10-06] MEDS: Gabapentin 600 MG Tablet PO ×3 (00:12→21:15)
[2021-10-06 05:55] LABS: Absolute Neutrophil Count 3.8 X10^3/uL (2.0-7.7); Basophil# 0.06 X10^3/uL; Eosinophil# 0.21 X10^3/uL; Eosinophils% 3.6 % (0-5); Hemoglobin 11.7 g/dL (12.0-15.0); Lymphocyte % 20.4 % (19-41); Mean Corp Hgb Conc 33.4 g/dL (32-36); Mean Corpuscular Hgb 31.1 pg (27.0-32.0); Mean Corpuscular Volume 93.1 fL (81-99); Mean Platelet Vol. 8.8 fl (6.2-12.0); Monocyte% 10.2 % (0-10); NRBC Flagged by Analyzer 0 % (0-5); Neutrophil # 3.79 X10^3/uL (2.7-7.7); Neutrophil % 64.5 % (47-70); Platelet Count 150 K/mm3 (150-450); RBC Distribution Width CV 13.1 % (11.6-14.6); RBC Distribution Width SD 44.2 fl (35.1-43.9); Red Blood Count 3.76 M/mm3 (4.2-5.4); White Blood Count 5.9 K/mm3 (4.4-11.0)
[2021-10-06 06:11] LABS: International Normalized Ratio 3.3; Prothrombin Time (Protime)PT. 33.6 SECONDS (11.7-14.9)
[2021-10-06 06:55] LABS: ALB/GLOB Ratio 1.1 RATIO (0.9-2.4); AST(SGOT) 16 U/L (15-37); Alanine Aminotransfer ALT/SGPT 25 U/L (13-56); Albumin, Serum 2.9 g/dL (3.2-5.0); Alkaline Phosphatase 67 U/L (45-117); Anion Gap 4 (5-15); BUN 18 mg/dL (7-18); BUN/Creat Ratio 21.8 RATIO (10-20); Chloride 112 mmol/L (98-107); Creatinine, Serum 0.83 mg/dL (0.55-1.02); EST Glomerular Filtration Rate 71 mL/min (>60); Est Glom Filt Rate - Afr Amer 86 mL/min (>60); Estimated Creatinine Clearance 44.18 ml/min; Globulin 2.7 g/dL (2.2-4.2); Glucose 96 mg/dL (74-106); Potassium 3.9 mmol/L (3.5-5.1); Protein, Total 5.6 g/dL (6.4-8.2); Sodium Level 142 mmol/L (136-145)
--- NOTE | 2021-10-06 09:52 | PCM.PN.HOSP ---
Subjective Subjective Patient seen and examined. She had no active complaints. She was admitted with a complaint of debility due to mechanical fall. Imaging done showed no evidence of fracture or dislocation. Pain is currently well controlled and she has been able to ambulate with a walker. Review of systems is otherwise negative. Objective Data Objective Data Vital Signs: Vital Signs Temp Pulse Resp BP Pulse Ox 97.8 F 60 16 115/51 L 92 10/06/21 05:20 10/06/21 05:20 10/06/21 05:20 10/06/21 05:20 10/06/21 07:38 Oxygen Delivery Method Room Air Weight: 157 lb 3.033 oz Body Mass Index (BMI) 28.8 Lab / Micro Data Result Diagrams: 10/06/21 05:35 10/06/21 05:35 Labs: Laboratory Results - last 24 hr 10/05/21 20:30: WBC 5.6, RBC 3.99 L, Hgb 12.4, Hct 36.1 L, MCV 90.5, MCH 31.1, MCHC 34.3, RDW Std Deviation 42.7, RDW Coeff of Zulma 13.0, Plt Count 175, MPV 8.9, Immature Gran % (Auto) 0.200, Neut % (Auto) 64.5, Lymph % (Auto) 21.3, [place] % (Auto) 10.1 H, Eos % (Auto) 2.8, Baso % (Auto) 1.1 H, Absolute Neuts (auto) 3.6, Absolute Lymphs (auto) 1.20, Nucleated RBC % 0 10/05/21 20:30: PT 31.5 H, INR 3.1 10/05/21 20:30: Sodium 142, Potassium 3.3 L, Chloride 111 H, Carbon Dioxide 25.0, Anion Gap 6, BUN 22 H, Creatinine 0.95, Estim Creat Clear Calc 38.60, Est GFR (MDRD) Af Amer 73, Est GFR (MDRD) Non-Af 61, BUN/Creatinine Ratio 23.2 H, Glucose 121 H, Calcium 8.5, Total Bilirubin 0.90, AST 17, ALT 28, Alkaline Phosphatase 73, Total Protein 6.3 L, Albumin 3.3, Globulin 3.0, Albumin/Globulin Ratio 1.1 10/05/21 20:30: Magnesium 1.8 10/06/21 05:35: WBC 5.9, RBC 3.76 L, Hgb 11.7 L, Hct 35.0 L, MCV 93.1, MCH 31.1, MCHC 33.4, RDW Std Deviation 44.2 H, RDW Coeff of Zulma 13.1, Plt Count 150, MPV 8.8, Immature Gran % (Auto) 0.300, Neut % (Auto) 64.5, Lymph % (Auto) 20.4, [place] % (Auto) 10.2 H, Eos % (Auto) 3.6, Baso % (Auto) 1.0, Absolute Neuts (auto) 3.8, Absolute Lymphs (auto) 1.20, Nucleated RBC % 0 10/06/21 05:35: PT 33.6 H, INR 3.3 10/06/21 05:35: Sodium 142, Potassium 3.9, Chloride 112 H, Carbon Dioxide 26.0, Anion Gap 4 L, BUN 18, Creatinine 0.83, Estim Creat Clear Calc 44.18, Est GFR (MDRD) Af Amer 86, Est GFR (MDRD) Non-Af 71, BUN/Creatinine Ratio 21.8 H, Glucose 96, Calcium 8.0 L, Total Bilirubin 0.60, AST 16, ALT 25, Alkaline Phosphatase 67, Total Protein 5.6 L, Albumin 2.9 L, Globulin 2.7, Albumin/Globulin Ratio 1.1 Radiography Diagnostic Testing: Radiology Impression Chest X-Ray 10/05/21 20:47 IMPRESSION: No active disease. Electronically Signed: Usman Fuller MD at 21:46 EDT Reading Location ID and State: [id number] Tel , Service support , Foot X-Ray 10/05/21 20:47 IMPRESSION: No acute fracture or dislocation. Electronically Signed: Usman Fuller MD at 21:47 EDT Reading Location ID and State: [id number] , Service support , Hip/Pelvis X-Ray 10/05/21 20:47 IMPRESSION: Normal x-ray examination of the pelvis and hip. Electronically Signed: Usman Fuller MD at 21:44 EDT , Physical Exam Const alert, oriented x3 and no apparent distress Exam Limitations: no limitations HEENT head/scalp atraumatic and moist oral mucous membranes Head and Scalp: normocephalic Eyes PERRL and EOMs intact bilaterally Neck no lymphadenopathy and supple Resp normal respiratory effort, no retractions, no use of accessory muscles and clear to auscultation bilaterally Cardio regular rate, regular rhythm, S1 normal heart sound, S2 normal heart sound and no murmurs GI normal to inspection, nondistended, normoactive bowel sounds, soft to palpation, non-tender and non-distended Extremity normal to inspection and full ROM Peripheral Pulses: Yes pulses 2+ throughout Skin no rashes or lesions noted Neuro oriented x3, CN's II-XII intact bilaterally and moves all extremities Sensorium / Orientation: awake and alert Psych affect normal Assessment & Plan Assessment/Plan (1) Fall: QUALIFIERS: Encounter type: initial encounter Qualified Code(s): W19.XXXA - Unspecified fall, initial encounter (2) Contusion of hip: QUALIFIERS: Encounter type: initial encounter Laterality: right Qualified Code(s): S70.01XA - Contusion of right hip, initial encounter (3) FTT (failure to thrive) in adult: PLAN: #Debility due to mechanical fall PT/OT on board. Fall precautions imaging showed no evidence of right foot or ankle fracture, or acute dislocation of right foot and ankle, right hip or pelvis. #Hypokalemia: resolved #Paroxysmal afib s/p ablation. On coumadin. INR today is 3.3 #CAD; on statin and metoprolol #History of complete heart block: s/p pacemaker placement. stable #Restless leg syndrome: on requip #History of valvular heart disease s/p mitral valve replacement. on coumadin #History of endometrial cancer s/p hysterectomy. #Allergic rhinitis; on fexofenadine and ipratropium #TRISH: on CPAP qhs DVT prophylaxis: not indicated as patient is on coumadin. Disposition: will need placement. Lives on the third floor of a walkup building, with no elevator. She will not be able to climb with stairs in her current condition. Charges/Coding Visit Charges OBSV E&M: 42199 Subsequent observation care L2
[2021-10-06] MEDS: Acetaminophen 325 MG Tablet 650 MG PO (10:13)
[2021-10-06] MEDS: Ascorbic Acid 500 MG Tablet PO ×2 (10:13→15:35)
[2021-10-06] MEDS: Menthol/Lanolin/Calamine/Znox 113 GM Tube 1 APPLIC TOPICAL ×3 (10:14→21:17)
[2021-10-06] MEDS: Calcium Carb/Vitamin D 1 TABLET Tablet PO (10:14)
[2021-10-06] MEDS: Loratadine 10 MG Tablet PO (10:15)
[2021-10-06] MEDS: Cyanocobalamin 500 MCG Tablet 1000 MCG PO (10:15)
[2021-10-06] MEDS: Cholecalciferol (VIT D3) 25 MCG TABLET (1,000 UNITS) PO (10:15)
[2021-10-06] MEDS: Lidocaine 5% Patch 2 PATCH TOPICAL (10:16)
[2021-10-06] MEDS: Cholestyramine/Sucrose 4 GM/PACKET PO (15:34)
[2021-10-07] VITALS (8 sets, daily range): BP systolic 101–120; BP diastolic 41–56; PULSE 60–73; RESP 14–18; TEMP 36.4–36.6; O2SAT 94–98
[2021-10-07] MEDS: traMADol 50 MG Tablet PO ×2 (07:33→20:17)
[2021-10-07] MEDS: Calcium Carb/Vitamin D 1 TABLET Tablet PO (07:46)
[2021-10-07] MEDS: Ascorbic Acid 500 MG Tablet PO ×2 (07:46→17:08)
--- NOTE | 2021-10-07 10:30 | CASEMGMT ---
RN CM Face to Face with patient for initial transition planning/care coordination assessment. RN CM introduced self and role at [facility]. Patient sitting in chair, alert and oriented. Patient willing to participate in assessment and is able to answer all questions appropriately. Care providers, pharmacy, and demographics verified. Patient wishes to discharge to SNF for additional therapy. RN CM provided patient with list of SNF with quality measures. Patient to review list and RN CM to follow-up regarding preferences. Patient states she has no further needs or concerns at this time. CM to follow for discharge planning needs that may arise. PCP: Loree España Specialists: Deya relish blender; Harrison neurologist Preferred Pharmacy: [facility] Insurance: [employer] Prescription Benefit: yes Living Will/HPOA: yes, sister Naina Harrison LNOK: sisters, brother Living Arrangements: Patient lives alone in a third floor apartment with 35 steps and railing to enter. Patient states she was independent at home prior to current hospitalization. Transportation: self, sister DME/HHC: Patient states she has walker, cpap, and pulse ox at home. No previous HHC or SNF. Disposition Plan: SNF pending acceptance and precert Melly DE LOS SANTOS, RN, CM
--- NOTE | 2021-10-07 10:36 | CASEMGMT ---
MARCELLA LIZAMA in to discuss GARZA form with patient. RN DL explained GARZA form to patient, patient voiced understanding. Patient signed GARZA form and filed in chart. Patient provided with copy of signed GARZA form. Patient had no further questions or concerns at this time.
[2021-10-07] MEDS: Ipratropium Bromide 0.06% NASAL SPRAY 2 SPRAY NASAL ×2 (10:53→21:04)
[2021-10-07] MEDS: Menthol/Lanolin/Calamine/Znox 113 GM Tube 1 APPLIC TOPICAL ×4 (10:54→21:04)
[2021-10-07] MEDS: Loratadine 10 MG Tablet PO (10:55)
[2021-10-07] MEDS: Cyanocobalamin 500 MCG Tablet 1000 MCG PO (10:55)
[2021-10-07] MEDS: Lidocaine 5% Patch 2 PATCH TOPICAL (10:55)
[2021-10-07] MEDS: Cholecalciferol (VIT D3) 25 MCG TABLET (1,000 UNITS) PO (10:56)
[2021-10-07] MEDS: Gabapentin 600 MG Tablet PO ×2 (10:58→21:03)
--- NOTE | 2021-10-07 11:45 | CASEMGMT ---
RN CM in to follow-up with patient regarding SNF preferences. Patient reviewed SNF list and states her first choice is TCU, second W, and third SW. RN DL updated YULI Grant regarding preferences. Patient had no further questions or concerns at this time.
--- NOTE | 2021-10-07 11:50 | CASEMGMT ---
Social Work Note SW received referral for SNF. Pt's preferred provider is [facility]. SW placed a call to [facility] with TCU and provided referral. Plan: TCU pending acceptance and pre-cert Melly BLOOM, VAULT CUSTODIAN
--- NOTE | 2021-10-07 12:46 | PN.HOSP_ITS ---
Subjective Subjective Doing well, no issues overnight. Still having some right-sided hip pain. Objective Data Objective Data Vital Signs: Vital Signs Temp Pulse Resp BP Pulse Ox 97.8 F 60 16 107/56 L 94 10/07/21 07:35 10/07/21 07:35 10/07/21 07:35 10/07/21 07:35 10/07/21 10:00 Oxygen Delivery Method Room Air Weight: 157 lb 14.4 oz Body Mass Index (BMI) 28.8 Intake & Output: Intake and Output for Last 24 Hours 10/06/21 10/07/21 10/08/21 03:59 03:59 03:59 Intake Total 2206 Balance 2206 Lab / Micro Data Result Diagrams: 10/06/21 05:35 10/06/21 05:35 Physical Exam Const alert, oriented x3 and no apparent distress General Appearance: cooperative HEENT normocephalic and moist oral mucous membranes Eyes PERRL, EOMs intact bilaterally and conjunctivae normal Neck supple and no JVD Resp normal respiratory effort, no retractions, no use of accessory muscles and clear to auscultation bilaterally Auscultation: Negative for crackles, rales, rhonchi or wheezes Cardio regular rate, regular rhythm, S1 normal heart sound, S2 normal heart sound and no murmurs GI soft to palpation, non-tender and non-distended; Negative for hepatosplenomegaly Extremity no clubbing, cyanosis or edema Extremity Narrative: Tenderness to palpation on the right hip Skin no rashes or lesions noted Neuro no focal motor deficits and no sensory deficits noted Psych affect normal Appearance: appropriate Assessment & Plan Assessment/Plan (1) Fall: QUALIFIERS: Encounter type: initial encounter Qualified Code(s): W19.XXXA - Unspecified fall, initial encounter (2) Contusion of hip: QUALIFIERS: Encounter type: initial encounter Laterality: right Qualified Code(s): S70.01XA - Contusion of right hip, initial encounter (3) FTT (failure to thrive) in adult: PLAN: #Debility due to mechanical fall * PT/OT on board. * Fall precautions * imaging showed no evidence of right foot or ankle fracture, or acute dislocation of right foot and ankle, right hip or pelvis. * Plan will be for SNF discharge for rehab prior to discharge home #Paroxysmal afib/CAD/complete heart block status post pacemaker status post mitral valve repair * s/p ablation. On coumadin. * Will continue to monitor INR * Continue with statin and metoprolol #Restless leg syndrome: on requip #History of endometrial cancer * s/p hysterectomy. #Allergic rhinitis; on fexofenadine and ipratropium #TRISH: on CPAP qhs DVT: Coumadin Charges/Coding Visit Charges OBSV E&M: 73608 Subsequent observation care L2
--- NOTE | 2021-10-07 12:46 | CHAPLAIN ---
Type of Pastoral Visit _x__ Initial Visit ___ Follow-up Visit ___ On-call Visit ___ General Patient Visit ___ Spiritual Assessment ___ Family Conference ___ Bereavement ___ Rapid Response ___ Code Blue ___ Other (describe below) Pastoral Care Referral From _x__ Patient ___ Family ___ Nurse ___ Physician ___ Network Relations Consultant ___ Reading Teacher ___ Other (describe below) Sacrament/Intervention _x__ Active listening ___ Anointing ___ Islam ___ Bereavement ___ Communion _x__ [place] exploration ___ _x__ Life review _x__ Prayer ___ Reconciliation ___ Sacrament of Sick _x__ Supportive presence ___ Wedding ___ Other (describe below) Pastoral Comments patient had important/legal duties to perform this week and will now have to have them postponed so this produces anxiety; Pt has strong indy and utilitizes that for her support
--- NOTE | 2021-10-07 13:35 | CASEMGMT ---
Social Work Note SW received call from Maribel with TCU, Maribel states she is reviewing pt's referral. Plan: TCU pending acceptance and pre-cert Melly Grant ONLINE MERCHANDISER, MODEL ENGINE MECHANIC
[2021-10-07] MEDS: Cholestyramine/Sucrose 4 GM/PACKET PO (14:04)
--- NOTE | 2021-10-07 15:53 | CASEMGMT ---
Social Work Note SW received call from Maribel with TCU stating TCU is able to accept pt and pre-cert has been submitted. Plan: TCU pending pre-cert Melly Grant CAT SWAMPER, PATENT ENGINEER
[2021-10-07] MEDS: Pramipexole Di-HCl 0.25 MG Tablet 0.75 MG PO (21:03)
[2021-10-07] MEDS: Atorvastatin Calcium 10 MG Tablet 5 MG PO (21:03)
[2021-10-07] MEDS: Citalopram 10 MG Tablet PO (21:03)
[2021-10-08 02:04] VITALS: BP 120/48; PULSE 60; RESP 16; TEMP 36.7; O2SAT 96
[2021-10-08 03:15] VITALS: PULSE 59; RESP 17; O2SAT 95
[2021-10-08 06:34] LABS: Absolute Lymphocyte Count 0.89 X10^3/uL (0.83-4.51); Absolute Neutrophil Count 4.3 X10^3/uL (2.0-7.7); Basophil# 0.05 X10^3/uL; Basophil% 0.8 % (0-1); Eosinophil# 0.12 X10^3/uL; Hematocrit 33.5 % (37-47); Hemoglobin 10.9 g/dL (12.0-15.0); Lymphocyte # 0.89 X10^3/ul (0.83-4.51); Lymphocyte % 14.6 % (19-41); Mean Corp Hgb Conc 32.5 g/dL (32-36); Mean Corpuscular Hgb 30.8 pg (27.0-32.0); Mean Corpuscular Volume 94.6 fL (81-99); Mean Platelet Vol. 9.4 fl (6.2-12.0); Monocyte% 11.5 % (0-10); NRBC Flagged by Analyzer 0 % (0-5); Neutrophil # 4.32 X10^3/uL (2.7-7.7); Neutrophil % 70.8 % (47-70); Platelet Count 158 K/mm3 (150-450); RBC Distribution Width SD 44.9 fl (35.1-43.9); Red Blood Count 3.54 M/mm3 (4.2-5.4); White Blood Count 6.1 K/mm3 (4.4-11.0)
[2021-10-08 06:45] VITALS: O2SAT 91
[2021-10-08 06:49] LABS: International Normalized Ratio 2.4; Prothrombin Time (Protime)PT. 25.5 SECONDS (11.7-14.9)
[2021-10-08 06:57] LABS: Anion Gap 6 (5-15); BUN 21 mg/dL (7-18); BUN/Creat Ratio 20.2 RATIO (10-20); Calcium,Total 7.9 mg/dL (8.5-10.1); Chloride 108 mmol/L (98-107); Creatinine, Serum 1.04 mg/dL (0.55-1.02); EST Glomerular Filtration Rate 54 mL/min (>60); Est Glom Filt Rate - Afr Amer 66 mL/min (>60); Estimated Creatinine Clearance 35.26 ml/min; Glucose 111 mg/dL (74-106); Potassium 3.9 mmol/L (3.5-5.1); Sodium Level 138 mmol/L (136-145)
[2021-10-08 08:54] VITALS: BP 107/49; PULSE 61; RESP 16; TEMP 36.6; O2SAT 100
[2021-10-08] MEDS: Calcium Carb/Vitamin D 1 TABLET Tablet PO (09:03)
[2021-10-08] MEDS: Ascorbic Acid 500 MG Tablet PO ×2 (09:03→16:37)
[2021-10-08] MEDS: Ipratropium Bromide 0.06% NASAL SPRAY 2 SPRAY NASAL (09:03)
[2021-10-08] MEDS: Menthol/Lanolin/Calamine/Znox 113 GM Tube 1 APPLIC TOPICAL ×3 (09:04→16:36)
[2021-10-08] MEDS: Cyanocobalamin 500 MCG Tablet 1000 MCG PO (09:04)
[2021-10-08] MEDS: Loratadine 10 MG Tablet PO (09:04)
[2021-10-08] MEDS: Lidocaine 5% Patch 2 PATCH TOPICAL (09:04)
[2021-10-08] MEDS: Cholecalciferol (VIT D3) 25 MCG TABLET (1,000 UNITS) PO (09:05)
[2021-10-08] MEDS: Gabapentin 600 MG Tablet PO (09:15)
--- NOTE | 2021-10-08 09:46 | PN.HOSP_ITS ---
Subjective Subjective Doing well, pain is little bit improved. No issues overnight. Objective Data Objective Data Vital Signs: Vital Signs Temp Pulse Resp BP Pulse Ox 97.9 F 61 16 107/49 L 100 10/08/21 08:54 10/08/21 08:54 10/08/21 08:54 10/08/21 08:54 10/08/21 08:54 Oxygen Delivery Method Room Air Weight: 162 lb 14.746 oz Body Mass Index (BMI) 28.8 Intake & Output: Intake and Output for Last 24 Hours 10/07/21 10/08/21 10/09/21 03:59 03:59 03:59 Intake Total 2206 Balance 2206 Lab / Micro Data Result Diagrams: 10/08/21 05:29 10/08/21 05:29 Labs: Laboratory Results - last 24 hr 10/08/21 05:29: WBC 6.1, RBC 3.54 L, Hgb 10.9 L, Hct 33.5 L, MCV 94.6, MCH 30.8, MCHC 32.5, RDW Std Deviation 44.9 H, RDW Coeff of Zulma 13.0, Plt Count 158, MPV 9.4, Immature Gran % (Auto) 0.300, Neut % (Auto) 70.8 H, Lymph % (Auto) 14.6 L, [place] % (Auto) 11.5 H, Eos % (Auto) 2.0, Baso % (Auto) 0.8, Absolute Neuts (auto) 4.3, Absolute Lymphs (auto) 0.89, Nucleated RBC % 0 10/08/21 05:29: PT 25.5 H, INR 2.4 10/08/21 05:29: Sodium 138, Potassium 3.9, Chloride 108 H, Carbon Dioxide 24.0, Anion Gap 6, BUN 21 H, Creatinine 1.04 H, Estim Creat Clear Calc 35.26, Est GFR (MDRD) Af Amer 66, Est GFR (MDRD) Non-Af 54 L, BUN/Creatinine Ratio 20.2 H, Glucose 111 H, Calcium 7.9 L Physical Exam Const alert, oriented x3 and no apparent distress General Appearance: cooperative HEENT normocephalic and moist oral mucous membranes Eyes PERRL, EOMs intact bilaterally and conjunctivae normal Neck supple and no JVD Resp normal respiratory effort, no retractions, no use of accessory muscles and clear to auscultation bilaterally Auscultation: Negative for crackles, rales, rhonchi or wheezes Cardio regular rate, regular rhythm, S1 normal heart sound, S2 normal heart sound and no murmurs GI soft to palpation, non-tender and non-distended; Negative for hepatosplenomegaly Extremity no clubbing, cyanosis or edema Extremity Narrative: Tenderness to palpation on the right hip Skin no rashes or lesions noted Neuro no focal motor deficits and no sensory deficits noted Psych affect normal Appearance: appropriate Assessment & Plan Assessment/Plan (1) Fall: QUALIFIERS: Encounter type: initial encounter Qualified Code(s): W19.XXXA - Unspecified fall, initial encounter (2) Contusion of hip: QUALIFIERS: Encounter type: initial encounter Laterality: right Qualified Code(s): S70.01XA - Contusion of right hip, initial encounter (3) FTT (failure to thrive) in adult: PLAN: #Debility due to mechanical fall * PT/OT on board. * Fall precautions * imaging showed no evidence of right foot or ankle fracture, or acute dislocation of right foot and ankle, right hip or pelvis. * Plan will be for SNF discharge for rehab prior to discharge home #Paroxysmal afib/CAD/complete heart block status post pacemaker status post mitral valve repair * s/p ablation. On coumadin. * Will continue to monitor INR * Continue with statin and metoprolol #Restless leg syndrome: on requip #History of endometrial cancer * s/p hysterectomy. #Allergic rhinitis; on fexofenadine and ipratropium #TRISH: on CPAP qhs DVT: Coumadin Charges/Coding Visit Charges Inpatient E&M: 21313 Subs Hosp L2
[2021-10-08] MEDS: Cholestyramine/Sucrose 4 GM/PACKET PO (11:23)
--- NOTE | 2021-10-08 12:46 | CHAPLAIN ---
Type of Pastoral Visit ___ Initial Visit _x__ Follow-up Visit ___ On-call Visit ___ General Patient Visit ___ Spiritual Assessment ___ Family Conference ___ Bereavement ___ Rapid Response ___ Code Blue ___ Other (describe below) Pastoral Care Referral From _x__ Patient ___ Family ___ Nurse ___ Physician ___ Spinner Open End ___ Store Shopper ___ Other (describe below) Sacrament/Intervention _x__ Active listening ___ Anointing ___ Christian ___ Bereavement ___ Communion _x__ [place] exploration ___ _x__ Life review _x__ Prayer ___ Reconciliation ___ Sacrament of Sick _x__ Supportive presence ___ Wedding ___ Other (describe below) Pastoral Comments patient admits that she is feeling cloudy today just like it is outside; pt reviews her situation and that she is 'waiting' for the decision about ECF acceptance for therapy; pt gives review of last couple years and the difficulties of life and the of spouse from COVID; pt has strong indy and leans on that in times of desperation; pt welcomes presence and prayer support;
--- NOTE | 2021-10-08 13:29 | CASEMGMT ---
Social Work Note YULI received message from Yessi to call her back regarding pt. YULI placed a call to Yessi. Yessi states pt was denied TCU. Peer to peer number option 5. Peer to peer has to be completed by 3:00pm today. [employer] ID# [id number]. YULI spoke with Physician. Physician requests PT to work with pt today to determine if pt can complete steps or not. YULI spoke with PT. Pt has railings by her steps and with the railings pt is a min assist. Pt made it through 10 steps and it took 10 minutes to complete. Pt is able to do steps but they are not functional to navigate the steps. Pt has two steps to enter and has no railings by those steps and would not be able to do those. YULI updated physician. Peer to peer to be completed. Plan: Peer to peer Melly Grant BORDERER, GOVERNMENT AFFAIRS SPECIALIST
[2021-10-08 13:59] VITALS: BP 115/55; PULSE 88; RESP 16; TEMP 36.8; O2SAT 98
--- NOTE | 2021-10-08 14:00 | CASEMGMT ---
Social Work Note YULI placed a call to Peer to Peer and spoke with Ashley. YULI asked Ashley if this worker could provide pt's information and then transfer the phone call to the physician. Ashley states that this worker cannot do that, that the physician has to call themselves and provided pt's Name, , and [employer] ID#. SW updated physician. Plan: Peer to peer Melly Grant BEEF TAGGER, DRIER BELT CONVEYOR
--- NOTE | 2021-10-08 14:30 | CASEMGMT ---
Social Work Note SW updated that Peer to peer has been completed and determination will be made in 1-2 hours. SW placed a call to Yessi with TCU and updated her. SW updated that pt would like to speak to this worker. SW in to speak with pt. Pt requesting update. SW informed pt that her insurance denied her SNF but physician did complete Peer to Peer and this worker is waiting for determination from Peer to Peer. SW informed pt that this worker should hear determination today. Pt states understanding. Plan: TCU pending determination from Peer to Peer Melly Grant FOUNDRY METALLURGIST, INFECTIOUS DISEASE TECHNICIAN
--- NOTE | 2021-10-08 16:00 | CASEMGMT ---
Social Work Note YULI received call from Yessi with TCU stating pre-cert has been obtained and pt can discharge to TCU today. YULI updated physician. Pt to discharge to TCU today. YULI updated RN that can discharge to TCU today and will need a COVID test. YULI in to speak with pt. YULI updated pt that she has been approved for TCU and will discharge to TCU today. Pt states understanding. Plan: TCU today Melly Grant PENSIONS RETIREMENT PLAN SPECIALIST, APARTMENT LOCATOR
--- NOTE | 2021-10-08 16:11 | PCM.TXEXTCAR ---
Diet 10/05/21 23:09 Diet: Cardiac - Heart Healthy Food consistency:: Regular Liquid Consistency:: Regular/Thin Routine Orders/Code Status Routine Lab Work: CBC and BMP Code Status: Full Code Therapies Weight Bearing: Weight bearing as tolerated Extremity Affected:: Right Lower Physical Therapy: Eval and Treat Occupational Therapy: Eval and Treat Problem/Diagnosis (1) Fall: Status: Acute (2) Contusion of hip: Status: Acute (3) FTT (failure to thrive) in adult: Status: Acute Allergies/Procedures Done in Hospital Allergies sertraline [From Zoloft] Adverse Reaction (Verified 10/05/21 20:02) Other Procedures: None Type of Care/Length of Stay Estimated LOS: Convalescent Care Less Than 30 days Type of Care Needed: Skilled Rehab Potential: Good Prognosis: Good Additional Orders/Day of Discharge Day of Discharge: 10/08/21 Discharge Plan Admission Admit Date/Time: 10/05/21 22:15 Attending Provider: Felipe Rodriguez Consulting Providers: Misti Duvall ; Makenzie Blake Discharge Orders/Prescriptions Prescriptions: New tramadol 50 mg Tablet 50 - 100 mg PO Q6H PRN PRN (Reason: Pain Score 4-10) Qty: 0 RF: 0 lidocaine 5 % Adhesive Patch,Medicated 2 patch topical DAILY Qty: 0 RF: 0 Continued fexofenadine [Allergy Relief (fexofenadine)] 180 mg tablet 180 mg PO DAILY RF: 0 alendronate [Fosamax] 70 MG tablet 70 mg PO QWEEK RF: 0 cyanocobalamin (vitamin B-12) 1,000 MCG tablet, sublingual 1,000 mcg sublingual DAILY RF: 0 cholestyramine (with sugar) [Questran] 4 GM powder in packet 4 g PO DAILY RF: 0 cholecalciferol (vitamin D3) [Vitamin D3] 1,000 UNIT tablet 1,000 unit PO DAILY RF: 0 Caltrate 600-D Plus Minerals 1 EACH tablet 1 ea PO DAILY RF: 0 citalopram 10 mg tablet 10 mg PO QHS RF: 0 simvastatin 10 mg tablet 10 mg PO QHS RF: 0 pramipexole 0.5 mg tablet 0.75 mg PO QHS RF: 0 ipratropium bromide 42 mcg (0.06 %) spray,non-aerosol 2 spray INTRANASAL BID RF: 0 biotin 1,000 mcg Tablet,Chewable 1,000 mcg PO DAILY RF: 0 gabapentin 300 mg capsule 600 mg PO BID RF: 0 acetaminophen 325 mg tablet 650 mg PO PRN PRN (Reason: Pain) RF: 0 ascorbic acid (vitamin C) 500 mg tablet 500 mg PO BID RF: 0 warfarin [Jantoven] 1 mg tablet 1 mg PO QHS Qty: 90 RF: 3 Referrals / Follow Up: KALA HOBBS [Other] KALA HOBBS [Other] Disposition Disposition (needs filled in before D/C Order can be placed): Long Term Facility
--- NOTE | 2021-10-08 16:14 | DS.PCM_ITS ---
Providers Date of Admission: 10/05/21 Primary Care Physician: KALA HOBBS Reason For Visit: FALL / INTRACTABLE PAIN / FTT ADULT Diagnosis Discharge Diagnosis (1) Fall: Status: Acute Code(s): W19.XXXA - Unspecified fall, initial encounter Qualifiers: Encounter type: initial encounter Qualified Code(s): W19.XXXA - Unspecified fall, initial encounter (2) Contusion of hip: Status: Acute Code(s): S70.00XA - Contusion of unspecified hip, initial encounter Qualifiers: Encounter type: initial encounter Laterality: right Qualified Code(s): S70.01XA - Contusion of right hip, initial encounter (3) FTT (failure to thrive) in adult: Status: Acute Code(s): R62.7 - Adult failure to thrive Medications at Discharge Home Medications Caltrate 600-D Plus Minerals 1 ea PO DAILY 05/21/18 alendronate [Fosamax] 70 mg PO QWEEK 05/21/18 cholecalciferol (vitamin D3) [Vitamin D3] 1,000 unit PO DAILY 05/21/18 cholestyramine (with sugar) [Questran] 4 g PO DAILY 05/21/18 cyanocobalamin (vitamin B-12) 1,000 mcg SUBLINGUAL DAILY 05/21/18 citalopram 10 mg PO QHS 12/31/20 simvastatin 10 mg PO QHS 02/23/21 biotin 1,000 mcg PO DAILY 05/06/21 ipratropium bromide 2 spray INTRANASAL BID 05/06/21 pramipexole 0.75 mg PO QHS 05/06/21 acetaminophen 325 mg tablet 650 mg PO PRN PRN tab 05/27/21 ascorbic acid (vitamin C) 500 mg tablet 500 mg PO BID 05/27/21 gabapentin 300 mg capsule 600 mg PO BID cap 06/06/21 fexofenadine 180 mg tablet 180 mg PO DAILY 07/09/21 warfarin 1 mg tablet 1 mg PO QHS #90 tab 08/21/21 lidocaine 2 patch TOPICAL DAILY #0 ea 10/08/21 tramadol 50 - 100 mg PO Q6H PRN PRN #0 tab 10/08/21 Hospital Course Operations None Procedures None Summary of Care Provided Minutes Spent on Discharge: 42 Hospital Course: Per HPI: The patient is a 80 y/o F w/ PMHx: TRISH on CPAP, RLS, CAD, PAF s/p MAZE/ablation, Valvular Heart Disease s/p MVR, Hx complete HB s/p pacemaker placement, HTN, HLD, GERD, Hx endometrial CA s/p hysterectomy, Depression and Anxiety, GERD who presents to the [facility] ED on 10/05/21 with history of mechanical fall earlier in the day with ongoing persistent right ankle and right hip pain prompting eventual ED evaluation. Patient lives on a 3rd floor story with only stairs and is unable to safely care for herself. Attempts in the ED to have her up with ambulation failed, she was unable to even get out of bed. She notes the right ankle is very tender and with palpation reports pain 5-6 out of 10, right posterior buttock/hip pain primarily with load-bearing or with palpation, reporting pain similarly 5-6 out of 10 when this occurs. Work-up in the ED included T98.4, heart rate 70, BP 116/54, respiratory rate 15, 97% on room air, CBC with WC 5.6, 112.4, platelet 175 with no marked shift, coags with INR 3.1, CMP with potassium 3.3, chloride 111, BUN/creat 22/0.95, glucose 121 otherwise [place] profile unremarkable, chest x-ray with no acute cardiopulmonary findin gs, plain film of the right foot and ankle with no acute fracture or dislocation, plain film of the right hip and pelvis with no acute osseous finding. In the ED patient ministered Zofran, morphine. Hospital Course: #Debility due to mechanical fall PT/OT on board. Fall precautions imaging showed no evidence of right foot or ankle fracture, or acute dislocation of right foot and ankle, right hip or pelvis. Had to do a peer to peer today and and discussed with the insurance company that she has significant difficulty climbing stairs and she has 36 stairs to get to her apartment. They did approve transfer to SNF for rehab. We will plan for discharge today. I do recommend continued monitoring of her CBC as well as her BMP and her INR as she is on Coumadin for A. fib. Last INR was 2.4. I discussed with her the plan for discharge today and she expressed understanding of the risk benefits of going to SNF and would like to go today. #Paroxysmal afib/CAD/complete heart block status post pacemaker status post mitral valve repair s/p ablation. On coumadin. Will continue to monitor INR Continue with statin and metoprolol #Restless leg syndrome: on requip #History of endometrial cancer s/p hysterectomy. #Allergic rhinitis; on fexofenadine and ipratropium #TRISH: on CPAP qhs Weight / BMI Weight Weight: 162 lb 14.746 oz Body Mass Index (BMI) 28.8 ABG / Lab / Microbiology Data Result Diagrams: 10/08/21 05:29 10/08/21 05:29 Laboratory: Laboratory Results - last 24 hr 10/08/21 05:29: WBC 6.1, RBC 3.54 L, Hgb 10.9 L, Hct 33.5 L, MCV 94.6, MCH 30.8, MCHC 32.5, RDW Std Deviation 44.9 H, RDW Coeff of Zulma 13.0, Plt Count 158, MPV 9.4, Immature Gran % (Auto) 0.300, Neut % (Auto) 70.8 H, Lymph % (Auto) 14.6 L, [place] % (Auto) 11.5 H, Eos % (Auto) 2.0, Baso % (Auto) 0.8, Absolute Neuts (auto) 4.3, Absolute Lymphs (auto) 0.89, Nucleated RBC % 0 10/08/21 05:29: PT 25.5 H, INR 2.4 10/08/21 05:29: Sodium 138, Potassium 3.9, Chloride 108 H, Carbon Dioxide 24.0, Anion Gap 6, BUN 21 H, Creatinine 1.04 H, Estim Creat Clear Calc 35.26, Est GFR (MDRD) Af Amer 66, Est GFR (MDRD) Non-Af 54 L, BUN/Creatinine Ratio 20.2 H, Glucose 111 H, Calcium 7.9 L Meaningful Use Info Meaningful Use Diagnoses (Choose all that apply): None applicable Discharge Plan Admission Admit Date/Time: 10/05/21 22:15 Attending Provider: Felipe Rodriguez Consulting Providers: Misti Duvall ; Makenzie Blake Discharge Orders/Prescriptions Prescriptions: New tramadol 50 mg Tablet 50 - 100 mg PO Q6H PRN PRN (Reason: Pain Score 4-10) Qty: 0 RF: 0 lidocaine 5 % Adhesive Patch,Medicated 2 patch topical DAILY Qty: 0 RF: 0 Continued fexofenadine [Allergy Relief (fexofenadine)] 180 mg tablet 180 mg PO DAILY RF: 0 alendronate [Fosamax] 70 MG tablet 70 mg PO QWEEK RF: 0 cyanocobalamin (vitamin B-12) 1,000 MCG tablet, sublingual 1,000 mcg sublingual DAILY RF: 0 cholestyramine (with sugar) [Questran] 4 GM powder in packet 4 g PO DAILY RF: 0 cholecalciferol (vitamin D3) [Vitamin D3] 1,000 UNIT tablet 1,000 unit PO DAILY RF: 0 Caltrate 600-D Plus Minerals 1 EACH tablet 1 ea PO DAILY RF: 0 citalopram 10 mg tablet 10 mg PO QHS RF: 0 simvastatin 10 mg tablet 10 mg PO QHS RF: 0 pramipexole 0.5 mg tablet 0.75 mg PO QHS RF: 0 ipratropium bromide 42 mcg (0.06 %) spray,non-aerosol 2 spray INTRANASAL BID RF: 0 biotin 1,000 mcg Tablet,Chewable 1,000 mcg PO DAILY RF: 0 gabapentin 300 mg capsule 600 mg PO BID RF: 0 acetaminophen 325 mg tablet 650 mg PO PRN PRN (Reason: Pain) RF: 0 ascorbic acid (vitamin C) 500 mg tablet 500 mg PO BID RF: 0 warfarin [Jantoven] 1 mg tablet 1 mg PO QHS Qty: 90 RF: 3 Referrals / Follow Up: KALA HOBBS [Other] AKLA HOBBS [Other] Disposition Disposition (needs filled in before D/C Order can be placed): Care Home Facility Charges/Coding Visit Charges OBSV E&M: 23173 Observation care discharge
== END 2021-10-08 18:37 ==
LOC: ED 22:01 → MS3 22:28
PROVIDERS: Admitting Provider Family Medicine; Emergency Provider Emergency Medicine; Visit Provider Family Medicine
DX: S70.01XA Contusion of right hip, initial encounter (principal); I48.0 Paroxysmal atrial fibrillation; I44.2 Atrioventricular block, complete; G25.81 Restless legs syndrome; W10.9XXA Fall (on) (from) unspecified stairs and steps, initial encounter; R53.81 Other malaise; F32.A Depression, unspecified; Z95.0 Presence of cardiac pacemaker; Z79.83 Long term (current) use of bisphosphonates; R62.7 Adult failure to thrive; Z95.2 Presence of prosthetic heart valve; E78.5 Hyperlipidemia, unspecified; I25.10 Atherosclerotic heart disease of native coronary artery without angina pectoris; F41.9 Anxiety disorder, unspecified; I10 Essential (primary) hypertension; J30.9 Allergic rhinitis, unspecified; M25.571 Pain in right ankle and joints of right foot; G47.33 Obstructive sleep apnea (adult) (pediatric); Y93.9 Activity, unspecified; Y99.9 Unspecified external cause status; Y92.9 Unspecified place or not applicable; I25.2 Old myocardial infarction; Z79.899 Other long term (current) drug therapy; Z79.01 Long term (current) use of 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s; K21.9 Gastro-esophageal reflux disease without esophagitis; E87.6 Hypokalemia
CPT/HCPCS: 36415; 71045; 73502; 73630; 80048; 80053; 83735; 85025; 85610; 87811; 94003; 94660; 94762; 96361; 96374; 96375; 97162; 97165; 97530; 97535; 99218; 99251; 99283; J7030; A4216; G0378; G0463; J2405

== ENCOUNTER 2021-10-08 18:48 | Inpatient (IN) | payer MEDICARE, SELFPAY ==
[2021-10-08 18:53] VITALS: BP 126/57; PULSE 95; RESP 16; TEMP 36.3; O2SAT 98; BMI 29.6
[2021-10-08 20:00] VITALS: PULSE 94; RESP 18; O2SAT 98
[2021-10-08] MEDS: traMADol 50 MG Tablet PO (20:21)
[2021-10-08] MEDS: Pramipexole Di-HCl 0.25 MG Tablet 0.75 MG PO (20:43)
[2021-10-08] MEDS: Atorvastatin Calcium 10 MG Tablet 5 MG PO (20:44)
[2021-10-08] MEDS: Citalopram 10 MG Tablet PO (20:44)
--- NOTE | 2021-10-08 21:56 | HP.PCM_ITS ---
HPI - General General Date of Admission: 10/08/21 HPI Narrative 10/05/2021 GLORIA MATHEW, is a 80 Female who presents to [facility] Emergency Department with fall. Walking, missed a step, hurt right buttock, right hip, right foot. Moderate pain with ambulation, X-rays negative for fracture. Lives up 3 flights of stairs, unable to go home. 10/05/2021 Admit to Hospital. Pain control. PT/OT for debility. Replete potassium 3.3. 10/06/2021 Pain controlled, able to walk with walker. Continue PT/OT. 10/07/2021 Right hip pain. PT/OT for [facility]. 10/08/2021 Admit to TCU with debility, here for rehabilitation, strengthening, prior to discharge home alone. [facility] Medical History Acute non-ST elevation myocardial infarction (NSTEMI) Anticoagulated on warfarin Atrial fibrillation Atrial fibrillation with RVR 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 Depression Endometrial cancer GERD (gastroesophageal reflux disease) Hernia Mitral and aortic valve disease Neuropathy Presence of permanent cardiac pacemaker (~05/20/21) Sleep apnea Home Medications Caltrate 600-D Plus Minerals 1 ea PO DAILY 05/21/18 [History Last Taken 10/05/21 09:00] alendronate [Fosamax] 70 mg PO QWEEK 05/21/18 [History Last Taken 09/07/21 09:00] cholecalciferol (vitamin D3) [Vitamin D3] 1,000 unit PO DAILY 05/21/18 [History Last Taken 10/05/21 09:00] cholestyramine (with sugar) [Questran] 4 g PO DAILY 05/21/18 [History Last Taken 10/05/21 09:00] cyanocobalamin (vitamin B-12) 1,000 mcg SUBLINGUAL DAILY 05/21/18 [History Last Taken 10/05/21 09:00] citalopram 10 mg PO QHS 12/31/20 [History Last Taken 10/04/21 21:00] simvastatin 10 mg PO QHS 02/23/21 [History Last Taken 10/04/21 21:00] biotin 1,000 mcg PO DAILY 05/06/21 [History Last Taken 10/04/21 20:00] ipratropium bromide 2 spray INTRANASAL BID 05/06/21 [History Last Taken 10/05/21 09:00] pramipexole 0.75 mg PO QHS 05/06/21 [History Last Taken 10/04/21 21:00] acetaminophen 325 mg tablet 650 mg PO PRN PRN tab 05/27/21 [History Last Taken 10/05/21 19:00] ascorbic acid (vitamin C) 500 mg tablet 500 mg PO BID 05/27/21 [History Last Taken 10/05/21 09:00] gabapentin 300 mg capsule 600 mg PO BID cap 06/06/21 [History Last Taken 10/05/21 09:00] fexofenadine 180 mg tablet 180 mg PO DAILY 07/09/21 [History Last Taken 10/05/21 09:00] warfarin 1 mg tablet 1 mg PO QHS #90 tab 08/21/21 [Rx Last Taken 10/04/21 21:00] lidocaine 2 patch TOPICAL DAILY 10/08/21 [History Last Taken Unknown] tramadol 50 - 100 mg PO Q6H PRN PRN #0 tab 10/08/21 [Rx Last Taken Unknown] Allergy/AdvReac Type Severity Reaction Status Date / Time sertraline [From Zoloft] AdvReac Other Verified 10/05/21 20:02 Family History Mother Heart disease CAD (coronary artery disease) Hypertension Father Heart disease Bradycardia Bradycardia requiring pacemaker placement. Surgical History History of cholecystectomy History of hysterectomy for cancer History of maze procedure History of mitral valve replacement Hx of atrioventricular node ablation S/P ablation operation for arrhythmia S/P left atrial appendage ligation S/P left atrial appendage ligation S/P Maze operation for atrial fibrillation S/P MVR (mitral valve replacement) Social History household members: none Smoking Status: Never smoker alcohol intake: current alcohol intake frequency: holidays/special occasions only substance use type: does not use ROS Constitutional Constitutional: Denies chills, fever(s) or weight gain ENT HEENT: Denies headache(s), nasal congestion or nasal discharge Cardiovascular Cardiovascular: Denies chest pain or palpitations Respiratory/Chest Respiratory/Chest: Denies cough, excessive phlegm production or shortness of breath with exertion Gastrointestinal Gastrointestinal: Denies abdominal pain, nausea or vomiting Genitourinary Genitourinary: Denies dysuria Musculoskeletal Musculoskeletal: Denies joint pain or joint swelling Integumentary Integumentary: Denies rash or wounds Neurologic Neurologic: Denies focal weakness, numbness or tingling Psychiatric Psychiatric: Denies anxiety, auditory hallucinations, depression, homicidal ideation or suicidal ideation Vital Signs Vital Signs Vital Signs: 10/08/21 18:53 Temperature 97.3 F L Temperature Source Temporal Pulse Rate 95 Respiratory Rate 16 Blood Pressure 126/57 H Blood Pressure Mean 80 Blood Pressure Source Monitor Blood Pressure Position Sitting Blood Pressure Location Left Arm Pulse Ox 98 Oxygen Delivery Method Room Air Physical Exam Const alert General Appearance: cooperative HEENT normocephalic Eyes PERRL and EOMs intact bilaterally Neck supple, no JVD and no carotid bruits Resp normal respiratory effort, normal air movement and clear to auscultation bilaterally Cardio regular rate and regular rhythm GI normal to inspection, nondistended, normoactive bowel sounds, non-tender and non-distended Extremity normal capillary refill General Extremity: Negative for edema Skin no rashes or lesions noted General Skin Exam: no breakdown Psych affect normal Appearance: appropriate Results Lab / Micro Data Result Diagrams: 10/09/21 05:08 10/09/21 05:08 Assessment & Plan Assessment/Plan (1) Debility: (2) Contusion of hip: QUALIFIERS: Encounter type: initial encounter Laterality: right Qualified Code(s): S70.01XA - Contusion of right hip, initial encounter (3) Right foot pain: (4) Hypokalemia: (5) Osteoporosis: (6) Vitamin D deficiency: (7) Hyperlipidemia: (8) Vitamin B12 deficiency: (9) Depression: (10) Allergic rhinitis: (11) Restless leg syndrome: (12) Neuropathic pain: (13) Atrial fibrillation: PLAN: 80 year old female with below past medical history hospitalized after fall with right hip contusion, admitted to TCU with debility, here for rehabilitation, strengthening, prior to discharge home alone. * Debility - PT/OT. * Pain - Tylenol 1000mg q6h prn pain (1-3), Tramadol 50mg q6h pain (4-10), Lidoderm patch 2 patches td daily. * Bowel - Senna/colace 1 tablet bid, Dulcolax 10mg daily prn. * Adult immunization - Administer pneumonia vaccine, covid19 vaccine, flu vaccine. * DVT prophylaxis - Not nessary, on warfarin. * Osteoporosis - Alendronate 70mg qweek, Calcium D daily. * Vitamin C deficiency - Vitamin C 500mg bidcm. * Hyperlipidemia - Atorvastatin 5mg qhs, Questran 4gm daily. * Depression - Citalopram 10mg qhs, stable chronic watermaster use, GDR not recommended. * Vitamin B12 deficiency - B12 1000mcg daily. * Neuropathic pain - Gabapentin 600mg bid. * Allergic rhinitis - Atrovent 2 sprays nasal bid, Loratadine 10mg daily. * Restless Leg syndrome - Pramipexole 0.75mg qhs. * Vitamin D deficiency - D3 25mcg daily. * Atrial fibrillation - warfarin 1mg daily, follow INR.
[2021-10-08 22:35] VITALS: PULSE 97; RESP 17; O2SAT 96
[2021-10-09 01:17] VITALS: PULSE 89; RESP 18; O2SAT 95
[2021-10-09] MEDS: Ipratropium Bromide 0.06% NASAL SPRAY 2 SPRAY NASAL ×2 (05:10→22:39)
[2021-10-09] MEDS: Gabapentin 300 MG Capsule 600 MG PO ×2 (05:10→18:14)
[2021-10-09] MEDS: Menthol/Lanolin/Calamine/Znox 113 GM Tube 1 APPLIC TOPICAL ×2 (05:11→18:14)
[2021-10-09] MEDS: Lidocaine 5% Patch 2 PATCH TOPICAL (05:12)
[2021-10-09] MEDS: Senna/Docusate Sodium 1 Tablet PO (05:12)
[2021-10-09] MEDS: Loratadine 10 MG Tablet PO (05:12)
[2021-10-09] MEDS: Cholecalciferol (VIT D3) 25 MCG TABLET (1,000 UNITS) PO (05:13)
[2021-10-09] MEDS: Cyanocobalamin 500 MCG Tablet 1000 MCG PO (05:13)
[2021-10-09 05:30] VITALS: PULSE 71; RESP 15; O2SAT 95
[2021-10-09 05:58] LABS: Absolute Lymphocyte Count 1.04 X10^3/uL (0.83-4.51); Absolute Neutrophil Count 3.6 X10^3/uL (2.0-7.7); Basophil# 0.04 X10^3/uL; Basophil% 0.7 % (0-1); Eosinophil# 0.17 X10^3/uL; Eosinophils% 3.1 % (0-5); Hemoglobin 10.3 g/dL (12.0-15.0); Lymphocyte # 1.04 X10^3/ul (0.83-4.51); Lymphocyte % 18.7 % (19-41); Mean Corp Hgb Conc 33.2 g/dL (32-36); Mean Corpuscular Volume 93.4 fL (81-99); Mean Platelet Vol. 9.2 fl (6.2-12.0); Monocyte# 0.71 X10^3/uL; Monocyte% 12.8 % (0-10); NRBC Flagged by Analyzer 0 % (0-5); Neutrophil # 3.58 X10^3/uL (2.7-7.7); Neutrophil % 64.5 % (47-70); Platelet Count 158 K/mm3 (150-450); RBC Distribution Width CV 13.1 % (11.6-14.6); RBC Distribution Width SD 44.6 fl (35.1-43.9); Red Blood Count 3.32 M/mm3 (4.2-5.4); White Blood Count 5.6 K/mm3 (4.4-11.0)
[2021-10-09 06:49] LABS: Anion Gap 1 (5-15); BUN 17 mg/dL (7-18); BUN/Creat Ratio 21.6 RATIO (10-20); Calcium,Total 8.5 mg/dL (8.5-10.1); Chloride 109 mmol/L (98-107); Creatinine, Serum 0.79 mg/dL (0.55-1.02); EST Glomerular Filtration Rate 75 mL/min (>60); Est Glom Filt Rate - Afr Amer 91 mL/min (>60); Glucose 103 mg/dL (74-106); Sodium Level 138 mmol/L (136-145)
[2021-10-09] MEDS: Calcium Carb/Vitamin D 1 TABLET Tablet PO (08:36)
[2021-10-09] MEDS: Ascorbic Acid 500 MG Tablet PO ×2 (08:36→18:13)
[2021-10-09] MEDS: traMADol 50 MG Tablet PO (08:36)
[2021-10-09] MEDS: Tuberculin,Purif.prot.deriv. 50 TU/ML Vial 0.1 ML ID (11:07)
[2021-10-09] MEDS: Cholestyramine/Sucrose 4 GM/PACKET PO (11:07)
[2021-10-09] MEDS: Acetaminophen 500 MG Tablet 1000 MG PO (11:15)
--- NOTE | 2021-10-09 13:11 | CASEMGMT ---
Social Work Met with patient for initial assessment. Introduced self and role. Discussed code status and MOLST form. Pt confirms full code. MOLST communicated to , placed in chart. Explained [facility] insurance with NRD 10/10 and continued stay is not guaranteed with each review. Pt has 35 total steps to enter apartment, then on main floor. Discussed options - pt cannot get a ramp and states she cannot afford to move to another apartment or condo because the market is so high currently; if she applies for [employer] housing that takes time and will likely be more money per month also, per pt. Pt states her sister and ALESSIA has their own health issues and does not complete those steps either. Pt was independent prior with no AD. The goal is for pt to get pain controlled, improve mobility and return home. SW to continue to follow for DC planning. Debora Ramirez, DECK MOLDER AIX ADMINISTRATOR
--- NOTE | 2021-10-09 13:58 | PHA.CONS1_ITS ---
Progress Note - Pharmacy Subjective: TCU Admission. 80 YOF presented to the ER with a fall/right hip contusion. Resident has stairs at home and is unable to go home. Admitted to TCU with debility for rehabilitation and strengthening. Objective: Allergies sertraline [From Zoloft] Adverse Reaction (Verified 10/05/21 20:02) Other Current Medications Generic Name Dose Route Start Last Admin Trade Name Freq PRN Reason Stop Dose Admin Acetaminophen 1,000 mg 10/08/21 22:09 10/09/21 11:15 Acetaminophen 500 Mg Tablet PO 1,000 mg Q6H PRN PRN Administration Pain Score 1-3 Alendronate Sodium 70 mg 10/12/21 06:00 Alendronate Sodium 70 Mg Tablet PO Sa@0600 [facility] Ascorbic Acid 500 mg 10/09/21 08:00 10/09/21 08:36 Ascorbic Acid 500 Mg Tablet PO 500 mg BIDCM CARMEL Administration Atorvastatin Calcium 5 mg 10/08/21 22:00 10/08/21 20:44 Atorvastatin Calcium 10 Mg Tablet PO 5 mg QHS CARMEL Administration Bisacodyl 10 mg 10/08/21 22:08 Bisacodyl 5 Mg Tablet PO DAILY PRN Constipation Calamine/Phenol 1 applic 10/09/21 06:00 10/09/21 05:11 Menthol/Lanolin/Calamine/Znox 113 Gm Tube TOPICAL 1 applic BID CARMEL Administration Protocol Calcium/Vitamin D 1 tablet 10/09/21 08:00 10/09/21 08:36 Calcium Carb/Vitamin D 1 Tablet Tablet PO 1 tablet BREAKFAST CARMEL Administration Cholecalciferol 25 mcg 10/09/21 06:00 10/09/21 05:13 Cholecalciferol (Vit D3) 25 Mcg Tablet (1,000 Units) PO 25 mcg DAILY CARMEL Administration Cholestyramine Resin 4 gm 10/09/21 12:00 10/09/21 11:07 Cholestyramine/Sucrose 4 Gm/Packet PO 4 gm LUNCH CARMEL Administration Citalopram Hydrobromide 10 mg 10/08/21 22:00 10/08/21 20:44 Citalopram 10 Mg Tablet PO 10 mg QHS CARMEL Administration Cyanocobalamin 1,000 mcg 10/09/21 06:00 10/09/21 05:13 Cyanocobalamin 500 Mcg Tablet PO 1,000 mcg DAILY CARMEL Administration Gabapentin 600 mg 10/09/21 06:00 10/09/21 05:10 Gabapentin 300 Mg Capsule PO 600 mg BID CARMEL Administration Ipratropium [place] 2 spray 10/09/21 06:00 10/09/21 05:10 Ipratropium [place] 0.06% Nasal [place] NASAL 2 spray BID [facility] Administration Lidocaine 2 patch 10/09/21 06:00 10/09/21 05:12 Lidocaine 5% Patch TOPICAL 2 patch DAILY [facility] Administration Protocol Loratadine 10 mg 10/09/21 06:00 10/09/21 05:12 Loratadine 10 Mg Tablet PO 10 mg DAILY CARMEL Administration Pramipexole Dihydrochloride 0.75 mg 10/08/21 22:00 10/08/21 20:43 Pramipexole Di-Hcl 0.25 Mg Tablet PO 0.75 mg QHS [facility] Administration Senna/Docusate Sodium 1 tablet 10/08/21 22:15 10/09/21 05:12 Senna/Docusate Sodium 1 Tablet PO 1 tablet BID CARMEL Administration Tramadol HCl 50 mg 10/08/21 22:09 10/09/21 08:36 Tramadol 50 Mg Tablet PO 50 mg Q6H PRN PRN Administration Pain Score 4-10 Tuberculin PPD 0.1 ml 10/16/21 10:00 Tuberculin,Purif.Prot.Deriv. 50 Tu/Ml Vial ID 10/16/21 10:01 X1 ONE Warfarin Sodium 1 mg 10/09/21 17:00 Warfarin 1 Mg Tablet PO DINNER [facility] Problem List (Last Reviewed 10/08/21 @ 21:[address] Zeeshan Kahn MD) Atrial fibrillation (Acute) Neuropathic pain (Acute) Restless leg syndrome (Acute) Allergic rhinitis (Acute) Depression (Acute) Vitamin B12 deficiency (Acute) Hyperlipidemia (Acute) Vitamin D deficiency (Acute) Osteoporosis (Acute) Hypokalemia (Acute) Right foot pain (Acute) Debility (Acute) Contusion of hip (Acute) Vital Signs Temp Pulse Resp BP Pulse Ox 97.3 F L 71 15 126/57 H 95 10/08/21 18:53 10/09/21 05:30 10/09/21 05:30 10/08/21 18:53 10/09/21 05:30 Oxygen Delivery Method CPAP Weight: 73.482 kg Body Mass Index (BMI) 29.6 Sodium 138 mmol/L (136-145) 10/09/21 05:08 Potassium 4.0 mmol/L (3.5-5.1) 10/09/21 05:08 Chloride 109 mmol/L (98-107) H 10/09/21 05:08 Carbon Dioxide 28.0 mmol/L (21.0-32.0) 10/09/21 05:08 Anion Gap 1 (5-15) L 10/09/21 05:08 BUN 17 mg/dL (7-18) 10/09/21 05:08 Creatinine 0.79 mg/dL (0.55-1.02) 10/09/21 05:08 Est GFR (MDRD) Af Amer 91 mL/min (>60) 10/09/21 05:08 Est GFR (MDRD) Non-Af 75 mL/min (>60) 10/09/21 05:08 BUN/Creatinine Ratio 21.6 RATIO (10-20) H 10/09/21 05:08 Glucose 103 mg/dL (74-106) 10/09/21 05:08 Assessment/Plan: 1. Pain: acetaminophen 1000mg PO Q6H PRN pain 1-3, tramadol 50mg PO Q6H PRN pain 4-10 and lidocaine 5% patch 2 patches topically daily. Resident has received 1 dose of Tylenol and 2 doses of tramadol for pain scores of 5 and 8 in the hip. Please continue to monitor for increased pain, PRN usage, constipation, renal function and respiratory depression. 2. Bowel: senna/docusate 1T PO BID and bisacodyl 10mg PO daily PRN constipation. Please continue to monitor for constipation and PRN usage. No documented BM yet. 3. Allergic rhinitis: ipratropium 0.06% nasal spray 2 sprays nasal BID and loratadine 10mg PO daily. Please continue to monitor for S/S of allergies. 4. Atrial fibrillation: warfarin 1mg PO dinner. Please continue to monitor INR (last 2.4) and S/S of bleeding. 5. Restless leg syndrome: pramipexole 0.75mg PO QHS. Please continue to monitor for S/S of restless legs. Psychotropic Medications: 1. Depression: citalopram 10mg PO QHS. Please see physician note regrading GDR. Please continue to monitor for GI side effects. 2. Neuropathic pain: gabapentin 600mg PO BID. Please continue to monitor for confusion and renal function. Patient using for pain, GDR not appropriate. Medication Irregularities: *1. Osteoporosis/vitamin D deficiency: alendronate 70mg PO weekly, calcium/vitamin D 1T PO breakfast and cholecalciferol 25mcg PO daily. Resident does not have a vitamin D level in the chart. Please consider ordering a vitamin D level if clinically appropriate. Thanks. Please continue to monitor for jaw pain, BMD and calcium (last 8.5mg/dL). Please give alendronate on an empty stomach first thing in the morning with a full glass of water and remain upright for 60 minutes following administration. *2. Hyperlipidemia: atorvastatin 5mg PO QHS and Questran 4gm PO lunch. Please consider ordering a lipid panel (last 05/2018) if clinically appropriate. Thanks. Please continue to monitor for muscle pain and constipation. *3. Vitamin C/D deficiencies: ascorbic acid 500mg PO BIDCM and cyanocobalamin 1000mcg PO daily. Please consider ordering a vitamin B12 level. Resident does not have one in the chart. Thanks. Date of Note:: 10/09/21
[2021-10-09 14:00] VITALS: BP 111/54; PULSE 74; RESP 16; TEMP 36.4; O2SAT 95
[2021-10-09 19:50] VITALS: PULSE 88; RESP 16; O2SAT 96
[2021-10-09 22:30] VITALS: PULSE 76; RESP 22; O2SAT 96
[2021-10-09] MEDS: Atorvastatin Calcium 10 MG Tablet 5 MG PO (22:40)
[2021-10-09] MEDS: Pramipexole Di-HCl 0.25 MG Tablet 0.75 MG PO (22:40)
[2021-10-09] MEDS: Citalopram 10 MG Tablet PO (22:40)
[2021-10-10] MEDS: traMADol 50 MG Tablet PO ×2 (00:13→21:41)
[2021-10-10 03:10] VITALS: PULSE 80; RESP 13; O2SAT 95
[2021-10-10] MEDS: Lidocaine 5% Patch 2 PATCH TOPICAL (05:11)
[2021-10-10] MEDS: Cyanocobalamin 500 MCG Tablet 1000 MCG PO (05:12)
[2021-10-10] MEDS: Gabapentin 300 MG Capsule 600 MG PO ×2 (05:12→17:37)
[2021-10-10] MEDS: Menthol/Lanolin/Calamine/Znox 113 GM Tube 1 APPLIC TOPICAL ×2 (05:12→17:37)
[2021-10-10] MEDS: Loratadine 10 MG Tablet PO (05:12)
[2021-10-10] MEDS: Ipratropium Bromide 0.06% NASAL SPRAY 2 SPRAY NASAL ×2 (05:12→21:40)
[2021-10-10] MEDS: Cholecalciferol (VIT D3) 25 MCG TABLET (1,000 UNITS) PO (05:12)
[2021-10-10 06:52] VITALS: PULSE 79; RESP 16; O2SAT 94
[2021-10-10] MEDS: Ascorbic Acid 500 MG Tablet PO ×2 (08:14→17:36)
[2021-10-10] MEDS: Calcium Carb/Vitamin D 1 TABLET Tablet PO (08:14)
[2021-10-10] MEDS: Acetaminophen 500 MG Tablet 1000 MG PO (08:14)
[2021-10-10 08:37] LABS: International Normalized Ratio 2.1; Prothrombin Time (Protime)PT. 23.1 SECONDS (11.7-14.9)
[2021-10-10 10:00] VITALS: PULSE 78; RESP 16; O2SAT 99
[2021-10-10] MEDS: Cholestyramine/Sucrose 4 GM/PACKET PO (12:02)
[2021-10-10 14:00] VITALS: BP 121/64; PULSE 75; RESP 15; TEMP 36.2; O2SAT 97
--- NOTE | 2021-10-10 14:04 | NURSING ---
Family and patient notified of staff member testing positive.
--- NOTE | 2021-10-10 15:25 | CHAPLAIN ---
Type of Pastoral Visit ___ Initial Visit _x__ Follow-up Visit ___ On-call Visit ___ General Patient Visit ___ Spiritual Assessment ___ Family Conference ___ Bereavement ___ Rapid Response ___ Code Blue ___ Other (describe below) Pastoral Care Referral From _x__ Patient ___ Family ___ Nurse ___ Physician ___ Stock Plan Administrator ___ Meeting Planner ___ Other (describe below) Sacrament/Intervention _x__ Active listening ___ Anointing ___ Zoroastrian ___ Bereavement ___ Communion ___ [place] exploration ___ _x__ Life review ___ Prayer ___ Reconciliation ___ Sacrament of Sick _x__ Supportive presence ___ Wedding ___ Other (describe below) Pastoral Comments patient is talkative and explains many things she will miss out on during this week that she had planned; pt agrees this is best solution for her right now and hopes that a different living situation could be a result of this admission; pt however acknowledges a lack of funds to move and will rely on God to help supploy her need;
[2021-10-10] MEDS: Citalopram 10 MG Tablet PO (21:41)
[2021-10-10] MEDS: Atorvastatin Calcium 10 MG Tablet 5 MG PO (21:41)
[2021-10-10] MEDS: Pramipexole Di-HCl 0.25 MG Tablet 0.75 MG PO (21:41)
[2021-10-10 22:38] VITALS: PULSE 79; RESP 21; O2SAT 96
[2021-10-11 02:25] VITALS: PULSE 68; RESP 15; O2SAT 99
[2021-10-11] MEDS: Lidocaine 5% Patch 2 PATCH TOPICAL (05:26)
[2021-10-11] MEDS: Loratadine 10 MG Tablet PO (05:27)
[2021-10-11] MEDS: Ipratropium Bromide 0.06% NASAL SPRAY 2 SPRAY NASAL ×2 (05:27→20:53)
[2021-10-11] MEDS: Gabapentin 300 MG Capsule 600 MG PO ×2 (05:27→18:24)
[2021-10-11] MEDS: Cholecalciferol (VIT D3) 25 MCG TABLET (1,000 UNITS) PO (05:27)
[2021-10-11] MEDS: Cyanocobalamin 500 MCG Tablet 1000 MCG PO (05:27)
[2021-10-11 06:38] VITALS: O2SAT 96
[2021-10-11] MEDS: Calcium Carb/Vitamin D 1 TABLET Tablet PO (08:19)
[2021-10-11] MEDS: Menthol/Lanolin/Calamine/Znox 113 GM Tube 1 APPLIC TOPICAL ×2 (08:19→18:24)
[2021-10-11] MEDS: Ascorbic Acid 500 MG Tablet PO ×2 (08:19→18:23)
[2021-10-11] MEDS: traMADol 50 MG Tablet PO ×2 (11:05→21:01)
[2021-10-11] MEDS: Cholestyramine/Sucrose 4 GM/PACKET PO (11:46)
[2021-10-11 14:00] VITALS: BP 125/62; PULSE 85; RESP 16; TEMP 36.4; O2SAT 97
[2021-10-11] MEDS: Warfarin 0.5 MG Tablet 1.5 MG PO (18:23)
[2021-10-11] MEDS: Atorvastatin Calcium 10 MG Tablet 5 MG PO (20:53)
[2021-10-11] MEDS: Citalopram 10 MG Tablet PO (20:54)
[2021-10-11] MEDS: Pramipexole Di-HCl 0.25 MG Tablet 0.75 MG PO (20:54)
[2021-10-11 22:43] VITALS: PULSE 94; RESP 21; O2SAT 96
[2021-10-12 00:50] VITALS: PULSE 83; RESP 17; O2SAT 96
[2021-10-12] MEDS: Ipratropium Bromide 0.06% NASAL SPRAY 2 SPRAY NASAL ×2 (04:57→21:20)
[2021-10-12] MEDS: Menthol/Lanolin/Calamine/Znox 113 GM Tube 1 APPLIC TOPICAL ×2 (04:57→16:24)
[2021-10-12] MEDS: Loratadine 10 MG Tablet PO (04:57)
[2021-10-12] MEDS: Cyanocobalamin 500 MCG Tablet 1000 MCG PO (04:58)
[2021-10-12] MEDS: Senna/Docusate Sodium 1 Tablet PO (04:58)
[2021-10-12] MEDS: Cholecalciferol (VIT D3) 25 MCG TABLET (1,000 UNITS) PO (04:58)
[2021-10-12] MEDS: Alendronate Sodium 70 MG Tablet PO (04:58)
[2021-10-12] MEDS: Lidocaine 5% Patch 2 PATCH TOPICAL (04:58)
[2021-10-12] MEDS: Gabapentin 300 MG Capsule 600 MG PO ×2 (05:05→16:28)
[2021-10-12 05:18] VITALS: PULSE 68; RESP 18; O2SAT 97
[2021-10-12] MEDS: Calcium Carb/Vitamin D 1 TABLET Tablet PO (08:04)
[2021-10-12] MEDS: Ascorbic Acid 500 MG Tablet PO ×2 (08:04→16:21)
[2021-10-12] MEDS: Cholestyramine/Sucrose 4 GM/PACKET PO (12:38)
[2021-10-12 13:09] VITALS: RESP 18
[2021-10-12 16:18] VITALS: BP 127/76; PULSE 94; RESP 18; TEMP 36.1; O2SAT 95
[2021-10-12] MEDS: Warfarin 0.5 MG Tablet 1.5 MG PO (16:21)
[2021-10-12] MEDS: Acetaminophen 500 MG Tablet 1000 MG PO (16:28)
[2021-10-12] MEDS: traMADol 50 MG Tablet PO (21:19)
[2021-10-12] MEDS: Pramipexole Di-HCl 0.25 MG Tablet 0.75 MG PO (21:20)
[2021-10-12] MEDS: Citalopram 10 MG Tablet PO (21:20)
[2021-10-12] MEDS: Atorvastatin Calcium 10 MG Tablet 5 MG PO (21:20)
[2021-10-12 22:20] VITALS: PULSE 72; RESP 25; O2SAT 96
[2021-10-13 02:00] VITALS: PULSE 67; RESP 15; O2SAT 96
[2021-10-13] MEDS: Gabapentin 300 MG Capsule 600 MG PO ×2 (05:28→17:13)
[2021-10-13] MEDS: Ipratropium Bromide 0.06% NASAL SPRAY 2 SPRAY NASAL ×2 (05:29→21:32)
[2021-10-13] MEDS: Cyanocobalamin 500 MCG Tablet 1000 MCG PO (05:30)
[2021-10-13] MEDS: Loratadine 10 MG Tablet PO (05:30)
[2021-10-13] MEDS: Cholecalciferol (VIT D3) 25 MCG TABLET (1,000 UNITS) PO (05:30)
[2021-10-13] MEDS: Menthol/Lanolin/Calamine/Znox 113 GM Tube 1 APPLIC TOPICAL ×2 (05:30→17:11)
--- NOTE | 2021-10-13 05:38 | NURSING ---
Declines Lidoderm patch as ordered at this time, states will accept later this AM after my shower
[2021-10-13] MEDS: Ascorbic Acid 500 MG Tablet PO ×2 (08:20→17:14)
[2021-10-13] MEDS: Calcium Carb/Vitamin D 1 TABLET Tablet PO (08:20)
[2021-10-13] MEDS: Lidocaine 5% Patch 2 PATCH TOPICAL (09:21)
[2021-10-13] MEDS: Acetaminophen 500 MG Tablet 1000 MG PO ×2 (11:11→17:10)
[2021-10-13] MEDS: Cholestyramine/Sucrose 4 GM/PACKET PO (11:12)
[2021-10-13 13:35] VITALS: PULSE 73; RESP 20; O2SAT 99
[2021-10-13 14:58] VITALS: BP 99/46; TEMP 36.2
[2021-10-13] MEDS: Warfarin 0.5 MG Tablet 1.5 MG PO (17:14)
[2021-10-13 20:00] VITALS: PULSE 85; RESP 16; O2SAT 98
[2021-10-13] MEDS: traMADol 50 MG Tablet PO (21:32)
[2021-10-13] MEDS: Citalopram 10 MG Tablet PO (21:34)
[2021-10-13] MEDS: Pramipexole Di-HCl 0.25 MG Tablet 0.75 MG PO (21:34)
[2021-10-13] MEDS: Atorvastatin Calcium 10 MG Tablet 5 MG PO (21:34)
[2021-10-13 23:00] VITALS: PULSE 85; RESP 16; O2SAT 98
[2021-10-14] MEDS: Acetaminophen 500 MG Tablet 1000 MG PO ×3 (00:47→20:12)
[2021-10-14] MEDS: Cholecalciferol (VIT D3) 25 MCG TABLET (1,000 UNITS) PO (05:36)
[2021-10-14] MEDS: Gabapentin 300 MG Capsule 600 MG PO ×2 (05:36→17:35)
[2021-10-14] MEDS: Lidocaine 5% Patch 2 PATCH TOPICAL (05:36)
[2021-10-14] MEDS: Ipratropium Bromide 0.06% NASAL SPRAY 2 SPRAY NASAL ×2 (05:36→22:03)
[2021-10-14] MEDS: Cyanocobalamin 500 MCG Tablet 1000 MCG PO (05:37)
[2021-10-14] MEDS: Menthol/Lanolin/Calamine/Znox 113 GM Tube 1 APPLIC TOPICAL ×2 (05:37→17:32)
[2021-10-14] MEDS: Loratadine 10 MG Tablet PO (05:37)
[2021-10-14 05:53] LABS: International Normalized Ratio 2.4; Prothrombin Time (Protime)PT. 25.7 SECONDS (11.7-14.9)
[2021-10-14] MEDS: Calcium Carb/Vitamin D 1 TABLET Tablet PO (08:17)
[2021-10-14] MEDS: Ascorbic Acid 500 MG Tablet PO ×2 (08:17→17:32)
[2021-10-14] MEDS: Cephalexin 500 MG Capsule PO ×2 (09:13→17:32)
[2021-10-14] MEDS: Doxycycline 100 MG CAPSULE PO ×2 (09:13→17:32)
[2021-10-14 10:00] VITALS: PULSE 87; RESP 18
[2021-10-14] MEDS: Cholestyramine/Sucrose 4 GM/PACKET PO (11:38)
[2021-10-14 14:00] VITALS: BP 107/53; PULSE 73; RESP 12; TEMP 36.2; O2SAT 95
--- NOTE | 2021-10-14 15:36 | CASEMGMT ---
Social Work Brief interview for mental status (BIMS) and resident mood assessment (PHQ-9) completed on this day. Frank BLOOM, JAIDAS
[2021-10-14] MEDS: Warfarin 0.5 MG Tablet 1.5 MG PO (17:32)
[2021-10-14 21:50] VITALS: PULSE 88; RESP 18; O2SAT 96
[2021-10-14] MEDS: Pramipexole Di-HCl 0.25 MG Tablet 0.75 MG PO (22:03)
[2021-10-14] MEDS: traMADol 50 MG Tablet PO (22:04)
[2021-10-14] MEDS: Atorvastatin Calcium 10 MG Tablet 5 MG PO (22:04)
[2021-10-14] MEDS: Citalopram 10 MG Tablet PO (22:04)
--- NOTE | 2021-10-14 23:16 | NURSING ---
Pt requested to take CPAP and continuous pulse ox off. Educated patient on the importance of wearing CPAP. Respiratory notified.
[2021-10-15 01:13] VITALS: PULSE 78; RESP 16; O2SAT 95
[2021-10-15] MEDS: Ipratropium Bromide 0.06% NASAL SPRAY 2 SPRAY NASAL ×2 (05:28→22:18)
[2021-10-15] MEDS: Gabapentin 300 MG Capsule 600 MG PO ×2 (05:28→17:04)
[2021-10-15] MEDS: Cephalexin 500 MG Capsule PO ×2 (05:28→17:04)
[2021-10-15] MEDS: Loratadine 10 MG Tablet PO (05:29)
[2021-10-15] MEDS: Cyanocobalamin 500 MCG Tablet 1000 MCG PO (05:29)
[2021-10-15] MEDS: Cholecalciferol (VIT D3) 25 MCG TABLET (1,000 UNITS) PO (05:29)
[2021-10-15] MEDS: Doxycycline 100 MG CAPSULE PO ×2 (05:29→17:04)
[2021-10-15] MEDS: Menthol/Lanolin/Calamine/Znox 113 GM Tube 1 APPLIC TOPICAL ×2 (05:34→17:05)
[2021-10-15] MEDS: Ascorbic Acid 500 MG Tablet PO ×2 (08:47→17:04)
[2021-10-15] MEDS: Calcium Carb/Vitamin D 1 TABLET Tablet PO (08:48)
[2021-10-15] MEDS: Lidocaine 5% Patch 2 PATCH TOPICAL (09:52)
[2021-10-15] MEDS: Acetaminophen 500 MG Tablet 1000 MG PO ×2 (09:54→17:09)
--- NOTE | 2021-10-15 13:07 | NURSING ---
Energy And Conservation Technician Note: Interview and section F of MDS complete.
[2021-10-15] MEDS: Cholestyramine/Sucrose 4 GM/PACKET PO (13:28)
[2021-10-15] MEDS: COVID-19 VACC, MRNA(PFIZER)/PF 30 MCG/0.3 ML SYRINGE IM (13:29)
[2021-10-15 14:00] VITALS: BP 102/52; PULSE 69; RESP 16; TEMP 36.3; O2SAT 98
--- NOTE | 2021-10-15 15:59 | CHAPLAIN ---
Type of Pastoral Visit ___ Initial Visit _x__ Follow-up Visit ___ On-call Visit ___ General Patient Visit ___ Spiritual Assessment ___ Family Conference ___ Bereavement ___ Rapid Response ___ Code Blue ___ Other (describe below) Pastoral Care Referral From _x__ Patient ___ Family ___ Nurse ___ Physician ___ Central Sterile Tech ___ Friction Welding Machine Operator ___ Other (describe below) Sacrament/Intervention _x__ Active listening ___ Anointing ___ Yazidism ___ Bereavement ___ Communion _x__ [place] exploration ___ _x__ Life review _x__ Prayer ___ Reconciliation ___ Sacrament of Sick _x__ Supportive presence ___ Wedding ___ Other (describe below) Pastoral Comments patient welcomes visits and opportunity to talk about her experience and her longing to get home; pt care conference is tomorrow so she is placing hope that it will bring a good result; pt acknowledges her lack of family and her many steps at home are a hindrance of early discharge; pt speaks of her indy and how she can see how God works in the past and therefore has hope for the future too; prayer and presence are welcomed
[2021-10-15] MEDS: Warfarin 0.5 MG Tablet 1.5 MG PO (17:04)
[2021-10-15] MEDS: traMADol 50 MG Tablet PO (22:16)
[2021-10-15] MEDS: Citalopram 10 MG Tablet PO (22:16)
[2021-10-15] MEDS: Atorvastatin Calcium 10 MG Tablet 5 MG PO (22:16)
[2021-10-15] MEDS: Pramipexole Di-HCl 0.25 MG Tablet 0.75 MG PO (22:17)
[2021-10-15 23:00] VITALS: PULSE 80; RESP 17; O2SAT 96
[2021-10-16] MEDS: Acetaminophen 500 MG Tablet 1000 MG PO ×2 (05:22→17:30)
[2021-10-16] MEDS: Doxycycline 100 MG CAPSULE PO ×2 (05:22→17:26)
[2021-10-16] MEDS: Cyanocobalamin 500 MCG Tablet 1000 MCG PO (05:22)
[2021-10-16] MEDS: Cholecalciferol (VIT D3) 25 MCG TABLET (1,000 UNITS) PO (05:22)
[2021-10-16] MEDS: Menthol/Lanolin/Calamine/Znox 113 GM Tube 1 APPLIC TOPICAL ×2 (05:22→17:27)
[2021-10-16] MEDS: Ipratropium Bromide 0.06% NASAL SPRAY 2 SPRAY NASAL ×2 (05:22→21:29)
[2021-10-16] MEDS: Loratadine 10 MG Tablet PO (05:22)
[2021-10-16] MEDS: Cephalexin 500 MG Capsule PO ×2 (05:22→17:26)
--- NOTE | 2021-10-16 06:03 | NURSING ---
06:00 Medications were administered at 05:22 hours during downtime. Pharmacy notified [facility] was out of Gabapentin 300 mg capsules. Tech stated they would be up to fill it sometime this morning. Per patient request, not to wake her back up, she will take them once she is up.
[2021-10-16 06:24] LABS: Absolute Lymphocyte Count 0.78 X10^3/uL (0.83-4.51); Absolute Neutrophil Count 3.2 X10^3/uL (2.0-7.7); Basophil# 0.04 X10^3/uL; Basophil% 0.9 % (0-1); Eosinophil# 0.19 X10^3/uL; Hematocrit 29.7 % (37-47); Hemoglobin 9.9 g/dL (12.0-15.0); Lymphocyte # 0.78 X10^3/ul (0.83-4.51); Lymphocyte % 16.6 % (19-41); Mean Corp Hgb Conc 33.3 g/dL (32-36); Mean Corpuscular Hgb 31.2 pg (27.0-32.0); Mean Corpuscular Volume 93.7 fL (81-99); Mean Platelet Vol. 8.8 fl (6.2-12.0); Monocyte# 0.47 X10^3/uL; NRBC Flagged by Analyzer 0 % (0-5); Neutrophil % 68.1 % (47-70); Platelet Count 215 K/mm3 (150-450); RBC Distribution Width CV 13.6 % (11.6-14.6); RBC Distribution Width SD 45.9 fl (35.1-43.9); Red Blood Count 3.17 M/mm3 (4.2-5.4); White Blood Count 4.7 K/mm3 (4.4-11.0)
[2021-10-16 06:26] LABS: Anion Gap 4 (5-15); BUN 24 mg/dL (7-18); BUN/Creat Ratio 29.6 RATIO (10-20); Chloride 109 mmol/L (98-107); Creatinine, Serum 0.81 mg/dL (0.55-1.02); EST Glomerular Filtration Rate 72 mL/min (>60); Est Glom Filt Rate - Afr Amer 88 mL/min (>60); Estimated Creatinine Clearance 45.27 ml/min; Glucose 85 mg/dL (74-106); Potassium 4.5 mmol/L (3.5-5.1); Sodium Level 140 mmol/L (136-145)
[2021-10-16] MEDS: Calcium Carb/Vitamin D 1 TABLET Tablet PO (08:24)
[2021-10-16] MEDS: Gabapentin 300 MG Capsule 600 MG PO ×2 (08:24→17:36)
[2021-10-16] MEDS: Ascorbic Acid 500 MG Tablet PO ×2 (08:24→17:26)
--- NOTE | 2021-10-16 09:49 | CASEMGMT ---
Addendum entered by Debora Ramirez 10/16/21 10:14: Pt prefers [facility] and requesting [facility]. Referrals made for PT/OT and to [facility]. Plan: Goal DC 10/21, [facility] PT/OT, [facility] Original Note: Social Work IDT met with patient and sister for care plan meeting. Discussed patient's progress in PT/OT/SN. Explained [facility] insurance with [facility] 10/17 and continued stay is not guaranteed with each review. Explained and provided insurance care plan with [facility] 10/23. Pt is completing 28 steps currently and PT will continue to work on those. Offered to set DC date with pt. Sister and ALESSIA have family visiting for the holiday weekend and cannot assist with pt to DC home until Saturday 10/21. Recommending DC 10/21 home with [facility]. Pt agreeable. Provided patient with HHC list of providers that are consistent with the patient?s preferred geographic area and care needs and includes quality and resource use data. Pt to notify SW of preference. No DME needs. SW to continue to follow. Debora Ramirez, WOLF VICE PRESIDENT EDUCATION
[2021-10-16] MEDS: Lidocaine 5% Patch 2 PATCH TOPICAL (10:26)
[2021-10-16] MEDS: Tuberculin,Purif.prot.deriv. 50 TU/ML Vial 0.1 ML ID (10:30)
[2021-10-16 12:13] VITALS: BP 104/44; PULSE 70; RESP 20; TEMP 35.9; O2SAT 95
[2021-10-16 12:14] VITALS: BP 108/38
[2021-10-16] MEDS: Cholestyramine/Sucrose 4 GM/PACKET PO (12:19)
[2021-10-16] MEDS: Warfarin 0.5 MG Tablet 1.5 MG PO (17:26)
[2021-10-16 21:00] VITALS: O2SAT 94
[2021-10-16] MEDS: Atorvastatin Calcium 10 MG Tablet 5 MG PO (21:28)
[2021-10-16] MEDS: Citalopram 10 MG Tablet PO (21:28)
[2021-10-16] MEDS: Pramipexole Di-HCl 0.25 MG Tablet 0.75 MG PO (21:28)
--- NOTE | 2021-10-16 21:37 | PCM.DC.SUM ---
Providers Date of Admission: 10/08/21 Primary Care Physician: KALA HOBBS Reason For Visit: FALLS AND INTRACTABLE PAIN, FAILURE TO THRIVE Diagnosis Discharge Diagnosis (1) Debility: Status: Acute Code(s): R53.81 - Other malaise (2) Contusion of hip: Status: Acute Code(s): S70.00XA - Contusion of unspecified hip, initial encounter Qualifiers: Encounter type: initial encounter Laterality: right Qualified Code(s): S70.01XA - Contusion of right hip, initial encounter (3) Right foot pain: Status: Acute Code(s): M79.671 - Pain in right foot (4) Hypokalemia: Status: Acute Code(s): E87.6 - Hypokalemia (5) Osteoporosis: Status: Acute Code(s): M81.0 - Age-related osteoporosis without current pathological fracture (6) Vitamin D deficiency: Status: Acute Code(s): E55.9 - Vitamin D deficiency, unspecified (7) Hyperlipidemia: Status: Acute Code(s): E78.5 - Hyperlipidemia, unspecified (8) Vitamin B12 deficiency: Status: Acute Code(s): E53.8 - Deficiency of other specified B group vitamins (9) Depression: Status: Acute Code(s): F32.A - Depression, unspecified (10) Allergic rhinitis: Status: Acute Code(s): J30.9 - Allergic rhinitis, unspecified (11) Restless leg syndrome: Status: Acute Code(s): G25.81 - Restless legs syndrome (12) Neuropathic pain: Status: Acute Code(s): M79.2 - Neuralgia and neuritis, unspecified (13) Atrial fibrillation: Status: Acute Code(s): I48.91 - Unspecified atrial fibrillation Medications at Discharge Home Medications alendronate 70 mg tablet (Fosamax) 70 mg PO QWEEK BONE DENSITY 05/21/18 calcium 600 mg-D3 800 unit-mag11 50 wy-fevr-lncasv-stephanie-s.borat tablet (Caltrate 600-D Plus Minerals) 1 ea PO DAILY REPLACEMENT 05/21/18 cholecalciferol (vitamin D3) 25 mcg (1,000 unit) tablet (Vitamin D3) 1,000 unit PO DAILY REPLACEMENT 05/21/18 cholestyramine (with sugar) 4 gram powder for susp in a packet (Questran) 4 g PO DAILY IBS 05/21/18 cyanocobalamin (vitamin B-12) 1,000 mcg sublingual tablet 1,000 mcg sublingual DAILY replacement 05/21/18 citalopram 10 mg tablet 10 mg PO QHS depression 12/31/20 simvastatin 10 mg tablet 10 mg PO QHS cholesterol 02/23/21 biotin 1,000 mcg chewable tablet 1,000 mcg PO DAILY SUPPLEMENT 05/06/21 ipratropium bromide 42 mcg (0.06 %) nasal spray 2 spray intranasal BID NASAL 05/06/21 pramipexole 0.5 mg tablet 0.75 mg PO QHS RLS 05/06/21 ascorbic acid (vitamin C) 500 mg tablet 500 mg PO BID supplement 05/27/21 gabapentin 300 mg capsule 600 mg PO BID NERVE PAIN 06/06/21 fexofenadine 180 mg tablet (Allergy Relief (fexofenadine)) 180 mg PO DAILY allergy 07/09/21 warfarin 1 mg tablet (Jantoven) 1 mg PO QHS blood thinner #90 tabs 08/21/21 acetaminophen 500 mg tablet 1,000 mg PO Q6H PRN PRN Pain Score 1-3 #0 tabs 10/16/21 lidocaine 5 % topical patch 2 patch topical DAILY Pain 30 days #60 ea 10/16/21 tramadol 50 mg tablet 50 mg PO Q6H PRN PRN Pain Score 4-10 7 days #28 tabs 10/16/21 Hospital Course Operations None Procedures None Summary of Care Provided Minutes Spent on Discharge: 35 Hospital Course: 80 year old female with below past medical history hospitalized after fall with right hip contusion, admitted to TCU with debility, here for rehabilitation, strengthening, prior to discharge home alone. Discharge home alone 10/21/2021 with family assistance, [facility] PT/OT, Front Wheeled Walker. Physical Exam Const alert General Appearance: cooperative HEENT normocephalic Eyes PERRL and EOMs intact bilaterally Neck supple, no JVD and no carotid bruits Resp normal respiratory effort, normal air movement and clear to auscultation bilaterally Cardio regular rate and regular rhythm GI normal to inspection, nondistended, normoactive bowel sounds, non-tender and non-distended Extremity normal capillary refill General Extremity: Negative for edema Skin no rashes or lesions noted General Skin Exam: no breakdown Psych affect normal Appearance: appropriate Weight / BMI Weight Weight: 142.247 kg Body Mass Index (BMI) 29.6 ABG / Lab / Microbiology Data Result Diagrams: 10/16/21 05:12 10/16/21 05:30 Laboratory: Laboratory Results - last 24 hr 10/16/21 05:12: WBC 4.7, RBC 3.17 L, Hgb 9.9 L, Hct 29.7 L, MCV 93.7, MCH 31.2, MCHC 33.3, RDW Std Deviation 45.9 H, RDW Coeff of [place] 13.6, Plt Count 215, MPV 8.8, Immature Gran % (Auto) 0.400, Neut % (Auto) 68.1, Lymph % (Auto) 16.6 L, [place] % (Auto) 10.0, Eos % (Auto) 4.0, Baso % (Auto) 0.9, Absolute Neuts (auto) 3.2, Absolute Lymphs (auto) 0.78 L, Nucleated RBC % 0 10/16/21 05:30: Sodium 140, Potassium 4.5, Chloride 109 H, Carbon Dioxide 27.0, Anion Gap 4 L, BUN 24 H, Creatinine 0.81, Estim Creat Clear Calc 45.27, Est GFR (MDRD) Af Amer 88, Est GFR (MDRD) Non-Af 72, BUN/Creatinine Ratio 29.6 H, Glucose 85, Calcium 9.0 Microbiology: Microbiology 10/15/21 08:45 Nasal Secretion SARS-CoV-2 Antigen (Rapid) - Final D/C Instructions Discharge Diet: No restrictions Discharge Activity: Return to Normal Activity, May Shower and Use Walker Weight Bearing Status: Weight bearing as tolerated Call your doctor if you observe: Fever of 101 or Higher, Inability to urinate, Inability to have a bowel movement, Shortness of breath, Dizziness, Fainting spells, Swelling in the ankles, Chest pain and Uncontrolled pain Additional Instructions: scharge home alone 10/21/2021 with family assistance, [facility] PT/OT, Front Wheeled Walker. Meaningful Use Info Meaningful Use Diagnoses (Choose all that apply): None applicable Discharge Plan Admission Admit Date/Time: 10/08/21 18:48 Primary Reason for Your Visit: Debility. Attending Provider: Zeeshan Kahn Chi Primary Care Provider: KALA HOBBS Instructions Additional Instructions / Restrictions: Discharge home alone 10/21/2021 with family assistance, [facility] PT/OT, Front Wheeled Walker. Discharge Orders/Prescriptions Prescriptions: New acetaminophen 500 mg Tablet 1,000 mg PO Q6H PRN PRN (Reason: Pain Score 1-3) Qty: 0 0RF tramadol 50 mg Tablet 50 mg PO Q6H PRN PRN (Reason: Pain Score 4-10) 7 Days Qty: 28 0RF Continued fexofenadine [Allergy Relief (fexofenadine)] 180 mg tablet 180 mg PO DAILY alendronate [Fosamax] 70 MG tablet 70 mg PO QWEEK Rx Instructions: takes on a weekend day sat. or sun. cyanocobalamin (vitamin B-12) 1,000 MCG tablet, sublingual 1,000 mcg sublingual DAILY cholestyramine (with sugar) [Questran] 4 GM powder in packet 4 g PO DAILY Rx Instructions: taken by itself, x1 hour after other meds or 4 hours before. Around noon time normally cholecalciferol (vitamin D3) [Vitamin D3] 1,000 UNIT tablet 1,000 unit PO DAILY Caltrate 600-D Plus Minerals 1 EACH tablet 1 ea PO DAILY citalopram 10 mg tablet 10 mg PO QHS simvastatin 10 mg tablet 10 mg PO QHS pramipexole 0.5 mg tablet 0.75 mg PO QHS ipratropium bromide 42 mcg (0.06 %) spray,non-aerosol 2 spray INTRANASAL BID biotin 1,000 mcg Tablet,Chewable 1,000 mcg PO DAILY gabapentin 300 mg capsule 600 mg PO BID lidocaine 5 % adhesive patch,medicated 2 patch topical DAILY 30 Days Qty: 60 0RF Protocol: *Topical Application Instructions APPLICATION INSTRUCTIONS: right hip ascorbic acid (vitamin C) 500 mg tablet 500 mg PO BID warfarin [Jantoven] 1 mg tablet 1 mg PO QHS Qty: 90 3RF Discontinued tramadol 50 mg Tablet 50 - 100 mg PO Q6H PRN PRN (Reason: Pain Score 4-10) Qty: 0 0RF acetaminophen 325 mg tablet 650 mg PO PRN PRN (Reason: Pain) Referrals / Follow Up: KALA HOBBS [Other] Disposition Disposition (needs filled in before D/C Order can be placed): Home Health Service
[2021-10-16] MEDS: traMADol 50 MG Tablet PO (21:39)
[2021-10-16 23:20] VITALS: PULSE 81; RESP 14; O2SAT 97
[2021-10-17 03:01] VITALS: PULSE 81; RESP 12; O2SAT 96
[2021-10-17] MEDS: Lidocaine 5% Patch 2 PATCH TOPICAL (05:20)
[2021-10-17] MEDS: Cephalexin 500 MG Capsule PO ×2 (05:21→17:01)
[2021-10-17] MEDS: Cyanocobalamin 500 MCG Tablet 1000 MCG PO (05:21)
[2021-10-17] MEDS: Gabapentin 300 MG Capsule 600 MG PO ×2 (05:21→17:04)
[2021-10-17] MEDS: Cholecalciferol (VIT D3) 25 MCG TABLET (1,000 UNITS) PO (05:21)
[2021-10-17] MEDS: Loratadine 10 MG Tablet PO (05:21)
[2021-10-17] MEDS: Doxycycline 100 MG CAPSULE PO ×2 (05:21→17:01)
[2021-10-17] MEDS: Menthol/Lanolin/Calamine/Znox 113 GM Tube 1 APPLIC TOPICAL ×2 (05:29→17:01)
[2021-10-17] MEDS: Ipratropium Bromide 0.06% NASAL SPRAY 2 SPRAY NASAL ×2 (05:30→22:17)
[2021-10-17 06:14] LABS: International Normalized Ratio 2.7
[2021-10-17] MEDS: Ascorbic Acid 500 MG Tablet PO ×2 (07:50→17:01)
[2021-10-17] MEDS: Calcium Carb/Vitamin D 1 TABLET Tablet PO (07:50)
[2021-10-17] MEDS: Acetaminophen 500 MG Tablet 1000 MG PO ×2 (07:54→14:04)
[2021-10-17 09:43] VITALS: PULSE 69; RESP 18; O2SAT 98
[2021-10-17] MEDS: Cholestyramine/Sucrose 4 GM/PACKET PO (11:43)
[2021-10-17 14:00] VITALS: BP 119/50; PULSE 74; RESP 20; TEMP 36; O2SAT 94
--- NOTE | 2021-10-17 15:42 | CHAPLAIN ---
Type of Pastoral Visit ___ Initial Visit _x__ Follow-up Visit ___ On-call Visit ___ General Patient Visit ___ Spiritual Assessment ___ Family Conference ___ Bereavement ___ Rapid Response ___ Code Blue ___ Other (describe below) Pastoral Care Referral From _x__ Patient ___ Family ___ Nurse ___ Physician ___ Production Packager ___ Outsole Flexer ___ Other (describe below) Sacrament/Intervention _x__ Active listening ___ Anointing ___ Restoration ___ Bereavement ___ Communion ___ [place] exploration ___ ___ Life review ___ Prayer ___ Reconciliation ___ Sacrament of Sick ___ Supportive presence ___ Wedding ___ Other (describe below) Pastoral Comments patient was in hallway and then in activity center when interaction occurred; pt also goes to [employer] to play it for enjoyment of staff; pt tells this taxation inspector about updated plans for discharge; pt speaks of some felt improvement
--- NOTE | 2021-10-17 15:42 | NURSING ---
Left message for spouse to return call for update.
[2021-10-17] MEDS: Warfarin 0.5 MG Tablet 1.5 MG PO (17:01)
--- NOTE | 2021-10-17 17:06 | NURSING ---
pt notified of employee testing positive for covid, pt states she does not need for anyone to be notified other than herself.
[2021-10-17] MEDS: traMADol 50 MG Tablet PO (22:16)
[2021-10-17] MEDS: Atorvastatin Calcium 10 MG Tablet 5 MG PO (22:17)
[2021-10-17] MEDS: Pramipexole Di-HCl 0.25 MG Tablet 0.75 MG PO (22:17)
[2021-10-17] MEDS: Citalopram 10 MG Tablet PO (22:18)
[2021-10-17 22:23] VITALS: PULSE 71; RESP 22; O2SAT 97
[2021-10-18 02:06] VITALS: PULSE 66; RESP 15; O2SAT 97
[2021-10-18 05:30] VITALS: PULSE 74; RESP 21; O2SAT 96
[2021-10-18] MEDS: Gabapentin 300 MG Capsule 600 MG PO ×2 (05:49→17:44)
[2021-10-18] MEDS: Loratadine 10 MG Tablet PO (05:49)
[2021-10-18] MEDS: Ipratropium Bromide 0.06% NASAL SPRAY 2 SPRAY NASAL ×2 (05:49→21:33)
[2021-10-18] MEDS: Cholecalciferol (VIT D3) 25 MCG TABLET (1,000 UNITS) PO (05:49)
[2021-10-18] MEDS: Cyanocobalamin 500 MCG Tablet 1000 MCG PO (05:49)
[2021-10-18] MEDS: Cephalexin 500 MG Capsule PO ×2 (05:49→17:45)
[2021-10-18] MEDS: Doxycycline 100 MG CAPSULE PO ×2 (05:49→17:44)
[2021-10-18] MEDS: Menthol/Lanolin/Calamine/Znox 113 GM Tube 1 APPLIC TOPICAL ×2 (05:50→17:46)
--- NOTE | 2021-10-18 06:03 | NURSING ---
Declined Lidoderm at this time as ordered, states will accept after AM shower this morning with therapy
[2021-10-18] MEDS: Ascorbic Acid 500 MG Tablet PO ×2 (08:29→17:44)
[2021-10-18] MEDS: Calcium Carb/Vitamin D 1 TABLET Tablet PO (08:29)
[2021-10-18] MEDS: Lidocaine 5% Patch 2 PATCH TOPICAL (08:40)
[2021-10-18] MEDS: Cholestyramine/Sucrose 4 GM/PACKET PO (12:10)
[2021-10-18 13:41] VITALS: BP 122/61; PULSE 84; RESP 18; TEMP 36.4; O2SAT 97
[2021-10-18] MEDS: Warfarin 0.5 MG Tablet 1.5 MG PO (17:44)
[2021-10-18] MEDS: traMADol 50 MG Tablet PO (21:32)
[2021-10-18] MEDS: Pramipexole Di-HCl 0.25 MG Tablet 0.75 MG PO (21:34)
[2021-10-18] MEDS: Citalopram 10 MG Tablet PO (21:34)
[2021-10-18] MEDS: Atorvastatin Calcium 10 MG Tablet 5 MG PO (21:35)
[2021-10-18 22:25] VITALS: PULSE 72; RESP 22; O2SAT 96
[2021-10-19 02:16] VITALS: PULSE 64; RESP 14; O2SAT 96
[2021-10-19 05:52] VITALS: PULSE 67; RESP 13; O2SAT 97
[2021-10-19] MEDS: Ipratropium Bromide 0.06% NASAL SPRAY 2 SPRAY NASAL ×2 (06:36→22:03)
[2021-10-19] MEDS: Cephalexin 500 MG Capsule PO ×2 (06:36→17:11)
[2021-10-19] MEDS: Cholecalciferol (VIT D3) 25 MCG TABLET (1,000 UNITS) PO (06:36)
[2021-10-19] MEDS: Gabapentin 300 MG Capsule 600 MG PO ×2 (06:36→17:11)
[2021-10-19] MEDS: Cyanocobalamin 500 MCG Tablet 1000 MCG PO (06:36)
[2021-10-19] MEDS: Loratadine 10 MG Tablet PO (06:36)
[2021-10-19] MEDS: Doxycycline 100 MG CAPSULE PO ×2 (06:36→17:11)
[2021-10-19] MEDS: Alendronate Sodium 70 MG Tablet PO (06:36)
[2021-10-19] MEDS: Menthol/Lanolin/Calamine/Znox 113 GM Tube 1 APPLIC TOPICAL ×2 (06:37→17:11)
[2021-10-19] MEDS: Lidocaine 5% Patch 2 PATCH TOPICAL (07:58)
[2021-10-19] MEDS: Ascorbic Acid 500 MG Tablet PO ×2 (07:58→17:11)
[2021-10-19] MEDS: Calcium Carb/Vitamin D 1 TABLET Tablet PO (07:58)
[2021-10-19] MEDS: Cholestyramine/Sucrose 4 GM/PACKET PO (11:40)
[2021-10-19 14:00] VITALS: BP 114/58; PULSE 71; RESP 16; TEMP 36.6; O2SAT 96
[2021-10-19] MEDS: Acetaminophen 500 MG Tablet 1000 MG PO (14:26)
[2021-10-19] MEDS: Warfarin 0.5 MG Tablet 1.5 MG PO (17:10)
[2021-10-19] MEDS: traMADol 50 MG Tablet PO (22:02)
[2021-10-19] MEDS: Citalopram 10 MG Tablet PO (22:05)
[2021-10-19] MEDS: Pramipexole Di-HCl 0.25 MG Tablet 0.75 MG PO (22:05)
[2021-10-19] MEDS: Atorvastatin Calcium 10 MG Tablet 5 MG PO (22:06)
[2021-10-19 22:30] VITALS: PULSE 69; RESP 17; O2SAT 97
[2021-10-20] MEDS: Ipratropium Bromide 0.06% NASAL SPRAY 2 SPRAY NASAL ×2 (06:47→21:59)
[2021-10-20] MEDS: Gabapentin 300 MG Capsule 600 MG PO ×2 (06:48→17:29)
[2021-10-20] MEDS: Cholecalciferol (VIT D3) 25 MCG TABLET (1,000 UNITS) PO (06:48)
[2021-10-20] MEDS: Cyanocobalamin 500 MCG Tablet 1000 MCG PO (06:49)
[2021-10-20] MEDS: Loratadine 10 MG Tablet PO (06:49)
[2021-10-20] MEDS: Doxycycline 100 MG CAPSULE PO ×2 (06:49→17:28)
[2021-10-20] MEDS: Cephalexin 500 MG Capsule PO ×2 (06:49→17:27)
[2021-10-20] MEDS: Lidocaine 5% Patch 2 PATCH TOPICAL (06:50)
[2021-10-20] MEDS: Menthol/Lanolin/Calamine/Znox 113 GM Tube 1 APPLIC TOPICAL ×2 (06:55→17:34)
[2021-10-20] MEDS: Calcium Carb/Vitamin D 1 TABLET Tablet PO (07:57)
[2021-10-20] MEDS: Ascorbic Acid 500 MG Tablet PO ×2 (07:57→17:27)
[2021-10-20] MEDS: Cholestyramine/Sucrose 4 GM/PACKET PO (11:46)
[2021-10-20 14:00] VITALS: BP 116/58; PULSE 76; RESP 16; TEMP 36.6; O2SAT 98
[2021-10-20] MEDS: Acetaminophen 500 MG Tablet 1000 MG PO (17:25)
[2021-10-20] MEDS: Senna/Docusate Sodium 1 Tablet PO (17:27)
[2021-10-20] MEDS: Warfarin 0.5 MG Tablet 1.5 MG PO (17:28)
[2021-10-20] MEDS: Citalopram 10 MG Tablet PO (22:00)
[2021-10-20] MEDS: Atorvastatin Calcium 10 MG Tablet 5 MG PO (22:00)
[2021-10-20] MEDS: Pramipexole Di-HCl 0.25 MG Tablet 0.75 MG PO (22:00)
[2021-10-20] MEDS: traMADol 50 MG Tablet PO (22:04)
[2021-10-20 22:26] VITALS: PULSE 71; RESP 21; O2SAT 97
[2021-10-20 23:21] VITALS: PULSE 72; RESP 18; O2SAT 95
[2021-10-21 00:16] VITALS: PULSE 75; RESP 21; O2SAT 96
--- NOTE | 2021-10-21 00:20 | CPS ---
Pt.'s continuous pulse oximeter finger sensor was becoming lose and causing the machine to alarm. New pulse oximeter for pt.'s finger was put on and nurse notified.
[2021-10-21 05:29] VITALS: PULSE 62; RESP 14; O2SAT 95
[2021-10-21 06:00] LABS: International Normalized Ratio 3.1; Prothrombin Time (Protime)PT. 31.7 SECONDS (11.7-14.9)
[2021-10-21] MEDS: Lidocaine 5% Patch 2 PATCH TOPICAL (06:33)
[2021-10-21] MEDS: Cephalexin 500 MG Capsule PO (06:34)
[2021-10-21] MEDS: Ipratropium Bromide 0.06% NASAL SPRAY 2 SPRAY NASAL (06:34)
[2021-10-21] MEDS: Doxycycline 100 MG CAPSULE PO (06:34)
[2021-10-21] MEDS: Loratadine 10 MG Tablet PO (06:34)
[2021-10-21] MEDS: Cyanocobalamin 500 MCG Tablet 1000 MCG PO (06:35)
[2021-10-21] MEDS: Gabapentin 300 MG Capsule 600 MG PO (06:35)
[2021-10-21] MEDS: Menthol/Lanolin/Calamine/Znox 113 GM Tube 1 APPLIC TOPICAL (06:42)
[2021-10-21] MEDS: Calcium Carb/Vitamin D 1 TABLET Tablet PO (07:50)
[2021-10-21] MEDS: Cholecalciferol (VIT D3) 25 MCG TABLET (1,000 UNITS) PO (07:50)
[2021-10-21] MEDS: Ascorbic Acid 500 MG Tablet PO (07:50)
[2021-10-21] MEDS: Acetaminophen 500 MG Tablet 1000 MG PO ×2 (08:15→14:34)
[2021-10-21 10:00] VITALS: PULSE 84; RESP 18; O2SAT 94
[2021-10-21] MEDS: Cholestyramine/Sucrose 4 GM/PACKET PO (12:05)
--- NOTE | 2021-10-21 14:48 | MDS.RN ---
Information for the mds was obtained from review of the clinical record, interview of resident, staff, and direct observation of resident's care.
[2021-10-21 16:27] VITALS: BP 107/42; PULSE 74; RESP 18; TEMP 35.7; O2SAT 97
== END 2021-10-21 17:21 | disposition home health service (06) | DRG 74 ==
PROVIDERS: Admitting Provider Family Medicine Geriatric Medicine; Visit Provider Family Medicine Geriatric Medicine
DX: G62.9 Polyneuropathy, unspecified (principal); E53.8 Deficiency of other specified B group vitamins; I48.91 Unspecified atrial fibrillation; E55.9 Vitamin D deficiency, unspecified; G25.81 Restless legs syndrome; E78.5 Hyperlipidemia, unspecified; I25.2 Old myocardial infarction; K21.9 Gastro-esophageal reflux disease without esophagitis; W10.9XXD Fall (on) (from) unspecified stairs and steps, subsequent encounter; S70.01XD Contusion of right hip, subsequent encounter; Z79.83 Long term (current) use of bisphosphonates; F32.A Depression, unspecified; Z79.01 Long term (current) use of 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s; Z79.899 Other long term (current) drug therapy; Z95.0 Presence of cardiac pacemaker; M81.0 Age-related osteoporosis without current pathological fracture; Z74.09 Other reduced mobility; Z23 Encounter for immunization
CPT/HCPCS: 0004A; 36415; 80048; 85025; 85610; 87426; 91300; 94003; 94660; 94762; 97110; 97116; 97162; 97166; 97530; 97535; 97802

== ENCOUNTER → 2021-10-14 | Outpatient (CLI) | payer MEDICARE, SELFPAY ==
--- NOTE | 2021-10-14 09:49 | VDLE_ITS ---
Reason For Study: Swelling RIGHT GSV is normal. CFV is compressible, spontaneous, phasic, competent and demonstrates normal augmentation. FV is compressible, spontaneous, phasic, competent and demonstrates normal augmentation. POP V is compressible, spontaneous, phasic, competent and demonstrates normal augmentation. T/P Trunk is compressible. PTV is compressible. RT PerV is compressible. Procedure This is a venous duplex using B-mode, color flow and spectral Doppler. Exam performed portable in patient room. A preliminary report was called and/or faxed to TCU. VL/Venous Duplex US, Unilateral Interpretation Summary Deep veins of the right lower extremity are patent and compressible segmentally . There is no evidence of right lower extremity deep vein thrombosis. Valvular competence willem ears intact within the proximal deep venous system on the right . The right great saphenous vein a ppears patent and compressible segmentally. Ordering Physician: Zeeshan Kahn Chi Referring Physician: Zeeshan Kahn Chi Performed By: Senait Bacon, LINSEYCS, RVT
== END | disposition home or self-care (01) ==
PROVIDERS: Referring Provider Family Medicine Geriatric Medicine; Visit Provider Family Medicine Geriatric Medicine
DX: M79.89 Other specified soft tissue disorders (principal)
CPT/HCPCS: 93971

== ENCOUNTER 2021-10-23 09:15 | Outpatient (RCR) | payer MEDICARE, SELFPAY ==
[2021-10-01 21:20] VITALS: BMI 26.7
[2021-10-23 09:26] LABS: INR Fingerstick 2.9; Prothrombin Time Fingerstick 33.4 SEC (11.7-14.9)
== END 2021-10-23 23:59 | disposition home or self-care (01) ==
LOC: LAB 09:15
PROVIDERS: Referring Provider Internal Medicine Cardiovascular Disease; Visit Provider Internal Medicine Cardiovascular Disease
DX: I48.20 Chronic atrial fibrillation, unspecified (principal)
CPT/HCPCS: 36416; 85610

== ENCOUNTER 2021-11-20 14:05 | Outpatient (RCR) | payer MEDICARE, SELFPAY ==
[2021-11-01 07:42] VITALS: BMI 26.7
[2021-11-06 16:10] LABS: INR Fingerstick 2.7; Prothrombin Time Fingerstick 31.4 SEC (11.7-14.9)
[2021-11-20 14:16] LABS: INR Fingerstick 2.7; Prothrombin Time Fingerstick 30.9 SEC (11.7-14.9)
== END 2021-12-01 02:59 | disposition home or self-care (01) ==
LOC: LAB 14:05
PROVIDERS: Internal Medicine Cardiovascular Disease; Referring Provider Internal Medicine Cardiovascular Disease; Visit Provider Internal Medicine Cardiovascular Disease
DX: I48.91 Unspecified atrial fibrillation (principal); Z79.01 Long term (current) use of 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s
CPT/HCPCS: 36416; 85610

== ENCOUNTER → 2021-12-09 | Outpatient (CLI) | payer MEDICARE, SELFPAY ==
--- NOTE | 2021-12-09 08:55 | US_ITS ---
STUDY: ABDOMINAL ULTRASOUND - RIGHT UPPER QUADRANT REASON FOR VISIT: Female, 81 years old PANCREATIC CYST TECHNIQUE: Ultrasound evaluation of the right upper quadrant was performed with real-time and static mcdaniel-scale imaging. TECHNICAL QUALITY: Adequate. COMPARISON: None. FINDINGS: LIVER: Length 15.2 cm. Increased echogenicity. Main portal vein patent. GALLBLADDER: Surgically absent. EXTRAHEPATIC BILE DUCTS: Common bile duct 5 mm not dilated. PANCREAS: Unremarkable. No definite cyst identified. RIGHT KIDNEY: Multiple cysts, largest 2.2 x 1.7 x 2 cm. No hydronephrosis. ASCITES: None. US/Abdomen Limited IMPRESSION: No definite pancreatic cyst identified. Please correlate with other cross-sectional imaging CT and/or MRI which may be more sensitive for evaluation. Cholecystectomy. Probable infiltration liver. Right renal cysts. Electronically Signed: Ginette Rivera MD at 3:24 EDT ,
== END | disposition home or self-care (01) ==
DX: K86.2 Cyst of pancreas (principal)
CPT/HCPCS: 76705

== ENCOUNTER 2021-12-16 10:52 | Outpatient (RCR) | payer MEDICARE, SELFPAY ==
[2021-12-01 02:59] VITALS: BMI 26.7
[2021-12-16 11:10] LABS: INR Fingerstick 2.4; Prothrombin Time Fingerstick 27.5 SEC (11.7-14.9)
== END 2021-12-16 18:00 | disposition home or self-care (01) ==
LOC: LAB 10:52
PROVIDERS: Referring Provider Internal Medicine Cardiovascular Disease; Visit Provider Internal Medicine Cardiovascular Disease
DX: I48.91 Unspecified atrial fibrillation (principal); Z79.01 Long term (current) use of 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s
CPT/HCPCS: 36416; 85610

== ENCOUNTER 2022-01-28 14:50 | Outpatient (RCR) | payer MEDICARE, SELFPAY ==
[2022-01-02 00:19] VITALS: BMI 26.7
[2022-01-07 13:40] LABS: INR Fingerstick 2.1
[2022-01-28 15:01] LABS: INR Fingerstick 3.1; Prothrombin Time Fingerstick 35.7 SEC (11.7-14.9)
== END 2022-01-28 18:00 | disposition home or self-care (01) ==
LOC: LAB 14:50
PROVIDERS: Referring Provider Internal Medicine Cardiovascular Disease; Visit Provider Internal Medicine Cardiovascular Disease
DX: I48.91 Unspecified atrial fibrillation (principal); Z79.01 Long term (current) use of 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s
CPT/HCPCS: 36416; 85610

== ENCOUNTER → 2022-02-18 | Outpatient (CLI) | payer MEDICARE, SELFPAY ==
--- NOTE | 2022-02-18 07:51 | BI_ITS ---
MAMMOGRAPHY - BILATERAL SCREENING REASON FOR EXAM: Female, 81 years old. Routine annual screening examination. PERTINENT HISTORY: Mother with breast cancer. Remote left breast biopsy. TECHNIQUE: Digital bilateral breast adina (3D mammographic acquisition) in the CC and MLO projections. 2-D mediolateral oblique (MLO) and craniocaudad (CC) views of both breasts were obtained. CAD: Full Field Digital Mammography with Computer Added Detection was performed. COMPARISON: Comparison is made with prior outside examination dated 11/20/2020. FINDINGS: Breast Composition: There are scattered areas of fibroglandular density. There are no dominant masses or suspicious calcifications. Benign appearing axillary lymph nodes are seen. A battery pack from a pacemaker is seen in the left axillary region. No other significant abnormalities are identified. There has been no significant change since the prior study. BI/SCRN MAMM (CAD)W/ADINA BILAT IMPRESSION: Stable bilateral screening mammogram. Yearly follow-up mammogram recommended. (A) ASSESSMENT CATEGORY: BIRADS Category 2: Benign. A letter regarding these results will be sent to the patient by the facility within 30 days. Approximately 10% of breast cancers are not detected by mammography. A normal mammogram should not delay biopsy of a clinically suspicious abnormality. [id number] Electronically Signed: Franky Grimes MD at 9:03 EDT ,
== END | disposition home or self-care (01) ==
LOC: OPBI 07:48
DX: Z12.31 Encounter for screening mammogram for malignant neoplasm of breast (principal); Z80.3 Family history of malignant neoplasm of breast
CPT/HCPCS: 77063; 77067

== ENCOUNTER 2022-02-28 10:27 | Outpatient (RCR) | payer MEDICARE, SELFPAY ==
[2022-01-31 23:27] VITALS: BMI 26.7
[2022-02-12 15:26] LABS: INR Fingerstick 3.8; Prothrombin Time Fingerstick 42.2 SEC (11.7-14.9)
[2022-02-19 15:31] LABS: INR Fingerstick 3.4; Prothrombin Time Fingerstick 38.5 SEC (11.7-14.9)
[2022-02-28 10:40] LABS: INR Fingerstick 1.8
== END 2022-03-03 10:01 | disposition home or self-care (01) ==
LOC: LAB 10:27
PROVIDERS: Referring Provider Internal Medicine Cardiovascular Disease; Visit Provider Internal Medicine Cardiovascular Disease
DX: I48.91 Unspecified atrial fibrillation (principal); Z79.01 Long term (current) use of 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s
CPT/HCPCS: 36416; 85610

== ENCOUNTER 2022-04-02 15:42 | Outpatient (RCR) | payer MEDICARE, SELFPAY ==
[2022-03-04 10:01] VITALS: BMI 26.7
[2022-03-17 10:20] LABS: INR Fingerstick 2.5; Prothrombin Time Fingerstick 29.4 SEC (11.7-14.9)
[2022-03-25 15:31] LABS: INR Fingerstick 1.6; Prothrombin Time Fingerstick 19.4 SEC (11.7-14.9)
[2022-04-02 15:50] LABS: INR Fingerstick 1.6; Prothrombin Time Fingerstick 19.5 SEC (11.7-14.9)
== END 2022-04-02 18:00 | disposition home or self-care (01) ==
LOC: LAB 15:42
PROVIDERS: Referring Provider Internal Medicine Cardiovascular Disease; Visit Provider Internal Medicine Cardiovascular Disease
DX: I48.91 Unspecified atrial fibrillation (principal); Z79.01 Long term (current) use of 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s
CPT/HCPCS: 36416; 85610

== ENCOUNTER 2022-04-11 13:00 | Outpatient (RCR) | payer MEDICARE, SELFPAY ==
--- NOTE | 2022-02-14 09:11 | HP.PTEVAL_ITS ---
Patient's Visit Information GLORIA MATHEW is a 81 year old F referred to Physical Therapy by SAROJ VALLECILLO with a diagnosis of R radicular back/pain in buttocks. Date of Evaluation: 02/14/22 Physical Therapist: LISSETH Hagen - Visit Plan Frequency: 2x /Week Duration: 6 Weeks Plan: 2X/ week for 4-6 weeks for R IT band and piriformis foam rolling, stretching, MT, US, and then progress to core stability and hip strengthening with HEP. HEP: Seated figure 4 piriformis stretch and seated knee to opp shoulder piriformis stretch - Subjective First weekend in October she fell and injured her R hip and ankle and she did TCU rehab and home care and things were fine and then a few weeks ago her R hip started bothering her again and nothing seemed to provoke it but it started to hurt and got worse. She was away for a weekend retreat and did a lot of walking and was in a lot of pain. It still hurts sometimes more than others but hurts all the time. She points to R buttock and no pain above her waist. Sometimes it hurts on the side of her hip also. She likes to sit with decrease pressure on her R hip. She has not laid on her R side since October and she sleeps on L side or stomach. She has no N&T. Her pain feels like an ache or just hurt. Her R hip hurts the longer she walks. Her R hip not too bad going up and down the stairs but she walks down side ways. The deeper and wider stairs hurt more. She reports the longer she sits, the more she walks the worse it gets. They did an x-ray while in the hospital and was negative. - Pain R hip pain Pain Intensity (Out of 10): 2 Pain Intensity Range: 9 - Objective Gait: Walks with decrease stance time on the R LE.. some veering. Able to raise heels and toes but struggles to raise the right toes as high as the L. LE MMT: R hip flex 7.3#and L 9.1#. R knee ext 22.3 and 21.1. R knee flex 12.3 and 14.3. R hip abd 10.7# AND L 12.9#. Tight piriformis on the R and painful. She is slightly tight on the L. Tight R IT band. no tightness on the l IT band. - Balance/Special Test Scores Oswestry Low Back Score: 21 - Goals Goal 1:: I HEP Goal Time Frame: 6-8 Weeks Goal 2:: Decrease R buttock and leg pain to have 1/10 pain or less with sitting or walking Goal Time Frame: 6-8 Weeks Goal 3:: Restore normal piriformis and IT band length on the R with no pain Goal Time Frame: 6-8 Weeks Goal 4:: Be able to lay on her R side or sit on her R side without having to shift off that side Goal Time Frame: 6-8 Weeks - Rehabilitation Potential Rehabilitation Potential: Good - Anticipated Interventions Patient/Client Instruction: Educate patient on: Condition, Plan of Care For the Purpose of:: To decrease pain, To increase ROM, To improve nutrient delivery to tissue, To improve muscle performance and motor function, To improve ability to perform ADL's, To increase tolerance to activity/condition/position, To improve performance and independence with ADL's, To decrease level of supervision to perform tasks, To improve ability of physical actions for home/community/work/leisure, To improve gait and locomotor functions, To improve health of tissue, To decrease soft tissue restriction, To increase flex ibility/ROM, To improve safety with gait Therapeutic Exercise to Include: Strength training, Endurance training, Balance training, Postural training, Flexibilty training, Gait and locomotor training, Neuromotor development, Active ROM, Dynamic Lumbar Stabilization For the Purpose of:: To decrease pain, To increase ROM, To improve nutrient delivery to tissue, To increase oxygenation perfusion, To improve muscle performance and motor function, To improve ability to perform ADL's, To increase tolerance to activity/condition/position, To improve performance and independence with ADL's, To decrease level of supervision to perform tasks, To improve ability of physical actions for home/community/work/leisure, To improve gait and locomotor functions, To improve health of tissue, To decrease soft tissue restriction, To increase flexibility/ROM, To improve balance Functional Training to Include: Gait training For the Purpose of:: To improve gait and locomotor functions Manual Therapy Techniques to Include: Mobilization, Passive ROM, Soft tissue mobilization For the Purpose of:: To decrease pain, To increase ROM, To improve nutrient delivery to tissue, To improve muscle performance and motor function, To improve ability to perform ADL's Cryotherapy (ice pack, ice massage): Yes Thermo therapy (hot pack): Yes Ultrasound (thermal/non thermal): Yes For the Purpose of:: To decrease pain, To decrease swelling/inflammation, To increase ROM, To improve nutrient delivery to tissue, To improve muscle performance and motor function Thank you for the opportunity to evaluate your patient. For Medicare and Medicare HMO plans, please review the plan of care and approve it. It will need to be FAXED BACK to us at [phone] for Medicare purposes. For Medicare only, by signing this I certify the plan of care. Please let me know if there are questions or concerns regarding this plan of care. Physician Signature: Date:
--- NOTE | 2022-04-11 13:46 | HP.PTDCSUM ---
It has been my pleasure to treat GLORIA MATHEW referred by SAROJ VALLECILLO, with the diagnosis of R radicular back/pain in buttocks for a total of 12 visit(s). Discharge Date: 04/11/22 Please see the following information for a summary of their discharge status. Subjective: Pt feels great. Took very little Tylenol yesterday and today. R hip pain Pain Intensity (Out of 10): 0 L hip pain Pain Intensity (Out of 10): 1 % Improvement: 80 Objective/Function: Pt felt a little discomfort with piriformis stretching on the L. Goal 1:: I HEP Goal 2:: Decrease R and L buttock and leg pain to have 1/10 pain or less with sitting or walking Goal Progress: Progressing Goal 3:: Restore normal piriformis and IT band length on the R with no pain Goal 4:: Be able to lay on her R side or sit on her R side without having to shift off that side Goal Progress: Progressing Plan: Pt will continue with stretches at home until her MRI. DC PT Discharge Comments: DC PT If there are questions or concerns regarding this patient's physical therapy, please feel free to call me at [phone]. Thank you for the referral of this patient. Sincerely, Sheila Ahn, MPT Balance/Gait/Functional tests - Balance/Special Test Scores Oswestry Low Back Score: 18
== END 2022-04-11 15:08 | disposition home or self-care (01) ==
LOC: PT 13:00
DX: M54.9 Dorsalgia, unspecified (principal)
CPT/HCPCS: 97110; 97140; 97161; 97530

== ENCOUNTER 2022-04-22 14:58 | Outpatient (RCR) | payer MEDICARE, SELFPAY ==
[2022-04-03 00:47] VITALS: BMI 26.7
[2022-04-08 13:51] LABS: Prothrombin Time Fingerstick 23.3 SEC (11.7-14.9)
[2022-04-22 15:06] LABS: INR Fingerstick 1.8; Prothrombin Time Fingerstick 21.3 SEC (11.7-14.9)
== END 2022-04-22 18:00 | disposition home or self-care (01) ==
LOC: LAB 14:58
PROVIDERS: Referring Provider Internal Medicine Cardiovascular Disease; Visit Provider Internal Medicine Cardiovascular Disease
DX: I48.91 Unspecified atrial fibrillation (principal); Z79.01 Long term (current) use of 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s
CPT/HCPCS: 36416; 85610

== ENCOUNTER → 2022-04-24 | Outpatient (CLI) | payer MEDICARE, SELFPAY ==
--- NOTE | 2022-04-24 12:38 | MRI_ITS ---
STUDY: MRI OF THE LUMBAR SPINE WITHOUT CONTRAST REASON FOR EXAM: 81 years old Female LEFT HIP PAIN. TECHNIQUE: Multiplanar, multisequence magnetic resonance imaging of the lumbar spine was performed without contrast. COMPARISON: None. FINDINGS: The conus terminates normally at the L1-L2 vertebral level. There is no abnormal compression or signal intensity of the visualized distal spinal cord. The nerve roots of the cauda equina are normal in thickness, distribution, and signal intensity. No epidural hematoma or other extra-axial lumbar spinal canal fluid collection is seen. The lumbar alignment is normal. The lumbar vertebral bodies are normal in height without compression fractures. The bone marrow signal intensity is within normal limits. The lumbar intervertebral discs are normal in height and signal intensity. T12-L1: The disc is normal. The facet joints are normal. No central canal or neural foramina stenosis at this level. L1-L2: The disc is normal. The facet joints are normal. No central canal or neural foramina stenosis at this level. L2-L3: Disc space height is normal however there is desiccation of the disc and mild annular bulge.. The facet joints are normal. Normal central canal and bilateral lateral recesses. Mild bilateral neural foraminal encroachment. L3-L4: Grade 1 spondylolisthesis. Normal disc space height with desiccation of the disc and minor bulging disc osteophyte complex. Facet arthropathy and thickening of ligamenta flava. Normal central canal and bilateral lateral recesses. Moderate bilateral neural foraminal stenosis L4-L5: Normal disc space height with desiccation of the disc and minimal annular bulge. Facet arthropathy and thickening of ligamenta flava.. Normal central canal and bilateral lateral recesses. Moderate bilateral neural foraminal stenosis L5-S1: The disc is normal. The facet joints are normal. No central canal or neural foramina stenosis at this level. The visualized lumbar prevertebral and paraspinal soft tissues are unremarkable. There is no evidence of abdominal aortic aneurysm or pathologic retroperitoneal lymphadenopathy. Low signal intensity is seen on the T1-weighted imaging sequences within the sacral wings bilaterally as well as the S1 vertebral body which become increased signal intensity on T2 and STIR imaging sequences which may be consistent with changes of insufficiency fracture. Other etiologies including metastatic disease not excluded but less likely MRI/Spine Lumbar (Routine) IMPRESSION: Spinal stenosis at L2-3, L3-4 and L4-5 secondary to bulging annuli, facet arthropathy and thickening of ligamenta flava.. Nonspecific signal abnormalities within the S1 vertebral body and sacral wings most likely representing intramedullary bone marrow edema likely due to insufficiency fracture. Clinical correlation is recommended Electronically Signed: Lincoln Hill MD at 21:32 EST ,
--- NOTE | 2022-04-24 12:39 | MRI_ITS ---
EXAM: MR LEFT LOWER EXTREMITY WITHOUT INTRAVENOUS CONTRAST, HIP CLINICAL INDICATION: LEFT HIP PAIN TECHNIQUE: Multiplanar and multisequence MR images of the left hip without intravenous contrast. This report was created using X[employer] report generation technology. COMPARISON: October 05, 2021 FINDINGS: TENDONS: FLEXORS: Unremarkable. Intact. EXTENSORS/HAMSTRING: Unremarkable. Intact. ABDUCTORS: Unremarkable. Intact. ADDUCTORS: Unremarkable. Intact. ROTATORS: Unremarkable. Intact. MUSCLES: Muscles are normal. FLUID: Small to moderate left hip joint effusion with no significant synovitis or intra-articular ossific bodies. No trochanteric bursitis. LABRUM: No acetabular labral tearing within the limits of this examination. CARTILAGE: Unremarkable. Articular cartilage intact. BONES/JOINTS: Bilateral sacral insufficiency fractures. Suspected these are subacute. No femoral neck fracture. No avascular necrosis of the femoral head. No suspicious bone marrow signal alteration. OTHER SOFT TISSUES: Tendons are intact. BOWEL: Distal colonic diverticulosis but no acute diverticulitis. No colitis. No bowel obstruction. INTRAPERITONEAL SPACE: No free air or free fluid. OTHER FINDINGS: Neurovascular structures are normal. MRI/Lower Ext Joint Only (Routine) IMPRESSION: Bilateral sacral insufficiency fractures. Suspected these are subacute. Small to moderate left hip joint effusion with no significant synovitis or intra-articular ossific bodies. Electronically Signed: Igor Vega MD at 4:10 EST Reading Location ID and State: [address] [place] [address] Tel , Service support ,
[2022-04-24 13:05] VITALS: BP 115/59; PULSE 95; RESP 16; O2SAT 93
[2022-04-24 13:20] VITALS: BP 112/63; PULSE 95; RESP 16; O2SAT 92
[2022-04-24 13:35] VITALS: BP 107/63; PULSE 95; RESP 16; O2SAT 91
[2022-04-24 14:00] VITALS: BP 146/91; PULSE 95; RESP 14; O2SAT 94
--- NOTE | 2022-04-24 14:13 | NURSING ---
Pt tolerated MRI well with music. Pacer Rep present to return pacer mode to baseline.
== END | disposition home or self-care (01) ==
DX: M25.552 Pain in left hip (principal)
CPT/HCPCS: 72148; 73721

== ENCOUNTER → 2022-04-30 | Outpatient (CLI) | payer MEDICARE, SELFPAY ==
[2022-04-30 18:22] LABS: CRP < 2.90 mg/L (0.0-3.0)
[2022-05-02 18:07] LABS: Endomysial Antibody IgA Negative (Negative)
[2022-05-02 19:03] LABS: Immunoglobulin A 326 mg/dL (64-422); t-Transglutaminase IgA <2 U/mL (0-3)
== END | disposition home or self-care (01) ==
PROVIDERS: Referring Provider Internal Medicine Gastroenterology; Visit Provider Internal Medicine Gastroenterology
DX: R19.7 Diarrhea, unspecified (principal)
CPT/HCPCS: 36415; 82784; 83516; 86140; 86255

== ENCOUNTER → 2022-05-01 | Outpatient (CLI) | payer MEDICARE, SELFPAY ==
[2022-05-04 12:45] LABS: Calprotectin, Stool 63 ug/g (0-120)
== END | disposition home or self-care (01) ==
LOC: LABSPEC 09:43
PROVIDERS: Referring Provider Internal Medicine Gastroenterology; Visit Provider Internal Medicine Gastroenterology
DX: R19.7 Diarrhea, unspecified (principal)
CPT/HCPCS: 83993

== ENCOUNTER 2022-05-30 12:56 | Outpatient (RCR) | payer MEDICARE, SELFPAY ==
[2022-05-04 05:19] VITALS: BMI 26.7
[2022-05-06 14:56] LABS: INR Fingerstick 2.5; Prothrombin Time Fingerstick 28.6 SEC (11.7-14.9)
[2022-05-27 14:10] LABS: INR Fingerstick 2.4
[2022-05-30 13:35] LABS: INR Fingerstick 2.1; Prothrombin Time Fingerstick 24.9 SEC (11.7-14.9)
== END 2022-05-30 14:00 | disposition home or self-care (01) ==
LOC: LAB 12:56
PROVIDERS: Referring Provider Internal Medicine Cardiovascular Disease; Visit Provider Internal Medicine Cardiovascular Disease
DX: I48.91 Unspecified atrial fibrillation (principal); Z79.01 Long term (current) use of 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s
CPT/HCPCS: 36416; 85610

== ENCOUNTER 2022-06-27 09:11 | Outpatient (RCR) | payer MEDICARE, SELFPAY ==
[2022-06-04 08:28] VITALS: BMI 26.7
[2022-06-09 15:45] LABS: INR Fingerstick 2.2; Prothrombin Time Fingerstick 25.7 SEC (11.7-14.9)
[2022-06-27 09:15] LABS: INR Fingerstick 1.8; Prothrombin Time Fingerstick 21.6 SEC (11.7-14.9)
== END 2022-06-27 18:00 | disposition home or self-care (01) ==
LOC: LAB 09:11
PROVIDERS: Referring Provider Internal Medicine Cardiovascular Disease; Visit Provider Internal Medicine Cardiovascular Disease
DX: I48.91 Unspecified atrial fibrillation (principal); Z79.01 Long term (current) use of 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s
CPT/HCPCS: 36416; 85610

== ENCOUNTER 2022-08-01 13:35 | Outpatient (RCR) | payer MEDICARE, SELFPAY ==
[2022-07-01 22:46] VITALS: BMI 26.7
[2022-07-11 10:06] LABS: INR Fingerstick 2.2; Prothrombin Time Fingerstick 25.8 SEC (11.7-14.9)
[2022-08-01 13:45] LABS: INR Fingerstick 2.1
== END 2022-08-02 00:01 | disposition home or self-care (01) ==
LOC: LAB 13:35
PROVIDERS: Referring Provider Internal Medicine Cardiovascular Disease; Visit Provider Internal Medicine Cardiovascular Disease
DX: I48.91 Unspecified atrial fibrillation (principal); Z79.01 Long term (current) use of 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s
CPT/HCPCS: 36416; 85610

== ENCOUNTER 2022-08-29 15:02 | Outpatient (RCR) | payer MEDICARE, SELFPAY ==
[2022-08-02 00:01] VITALS: BMI 26.7
[2022-08-29 15:26] LABS: INR Fingerstick 1.8; Prothrombin Time Fingerstick 20.2 SEC (11.7-14.9)
== END 2022-08-31 02:14 | disposition home or self-care (01) ==
LOC: LAB 15:02
PROVIDERS: Referring Provider Internal Medicine Cardiovascular Disease; Visit Provider Internal Medicine Cardiovascular Disease
DX: I48.91 Unspecified atrial fibrillation (principal); Z79.01 Long term (current) use of 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s
CPT/HCPCS: 36416; 85610

== ENCOUNTER 2022-09-26 11:54 | Outpatient (RCR) | payer MEDICARE, SELFPAY ==
[2022-08-31 02:14] VITALS: BMI 26.7
[2022-09-26 12:03] LABS: INR Fingerstick 2.7; Prothrombin Time Fingerstick 29.4 SEC (11.7-14.9)
== END 2022-09-26 13:00 | disposition home or self-care (01) ==
LOC: LAB 11:54
PROVIDERS: Referring Provider Internal Medicine Cardiovascular Disease; Visit Provider Internal Medicine Cardiovascular Disease
DX: I48.91 Unspecified atrial fibrillation (principal); Z79.01 Long term (current) use of 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s
CPT/HCPCS: 36416; 85610

== ENCOUNTER 2022-10-27 09:50 | Outpatient (RCR) | payer MEDICARE, SELFPAY ==
[2022-10-02 08:21] VITALS: BMI 26.7
[2022-10-27 10:02] LABS: INR Fingerstick 2.3; Prothrombin Time Fingerstick 24.6 SEC (11.7-14.9)
== END 2022-10-27 18:00 | disposition home or self-care (01) ==
LOC: LAB 09:50
PROVIDERS: PCP Psychiatry & Neurology Psychiatry; Referring Provider Internal Medicine Cardiovascular Disease; Visit Provider Internal Medicine Cardiovascular Disease
DX: I48.91 Unspecified atrial fibrillation (principal); Z79.01 Long term (current) use of 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s
CPT/HCPCS: 36416; 85610

== ENCOUNTER 2022-11-27 08:56 | Outpatient (CLI) | payer MEDICARE, SELFPAY ==
--- NOTE | 2022-11-27 08:58 | ECHOD_ITS ---
Reason For Study: POST MITRAL VALVE REPLACEMENT Procedure This was a 2D Doppler, Color Flow transthoracic echocardiogram. Exam performed in department. Left Ventricle Normal LV size. Left ventricular systolic function is normal. The estimated ejection fraction is 55 %. Stage 3 diastolic dysfunction. No regional wall motion abnormalities noted. Right Ventricle Normal RV size. ICD or pacer leads identified within the right ventricle. Normal systolic function. Mitral Valve Stable appearing bioprosthetic mitral valve apparatus. Tricuspid Valve Normal tricuspid valve. Mild (1+) tricuspid valve insufficiency. Pulmonary artery systolic pressure is 28 mmHg. Aortic Valve Trisinus/trileaflet aortic valve. Mild (1+) eccentric aortic valve insufficiency. Pulmonic Valve Normal pulmonic valve. Great Vessels Normal aortic root. The pulmonary artery is normal size. Normal inferior vena cava. Pericardium/Pleural No pericardial effusion. MMode/2D Measurements & Calculations LVIDd: 4.3 cm IVSd: 1.2 cm LVOT diam: 2.0 cm LVIDs: 3.0 cm LVPWd: 1.0 cm LVOT area: 3.2 cm2 RVDd: 3.2 cm FS: 29.9 % Ao root diam: 3.2 cm LAV(MOD-sp2): 62.3 ml LVAd ap4: 29.2 cm2 LA dimension: 4.6 cm LVLd ap4: 7.6 cm EDV(MOD-sp4): 91.7 ml EDV(sp4-el): 95.2 ml LVAs ap4: 17.7 cm2 LVLs ap4: 6.6 cm ESV(MOD-sp4): 38.8 ml ESV(sp4-el): 40.2 ml EF(MOD-sp4): 57.7 % EF(sp4-el): 57.8 % SV(MOD-sp4): 52.9 ml SV(sp4-el): 55.0 ml Time Measurements MV dec time: 0.40 sec Doppler Measurements & Calculations MV E max carlos: 180.1 cm/sec Lat Peak E' Carlos: 7.1 cm/sec Med Peak E' Carlos: 6.2 cm/sec MV A max carlos: 65.8 cm/sec E/E' lat: 25.4 E/E' med: 29.1 MV E/A: 2.7 MV V2 max: 166.4 cm/sec MV P1/2t max carlos: 167.6 cm/sec Ao V2 max: 170.4 cm/sec MV max P.1 mmHg MV P1/2t: 133.2 msec Ao max P.6 mmHg MV V2 mean: 98.7 cm/sec MV dec slope: 368.4 cm/sec2 Ao V2 mean: 121.8 cm/sec MV mean P.4 mmHg MVA(P1/2t): 1.7 cm2 Ao mean P.5 mmHg MV V2 VTI: 51.6 cm Ao V2 VTI: 38.6 cm MVA(VTI): 1.7 cm2 AV (velocity ratio): 0.72 BERTO(I,D): 2.3 cm2 BERTO(V,D): 2.2 cm2 LV V1 max: 120.6 cm/sec SV(LVOT): 87.9 ml PA V2 max: 73.2 cm/sec LV V1 max P.8 mmHg LV V1 mean P.0 mmHg LV V1 mean: 80.9 cm/sec LV V1 VTI: 27.7 cm TR max carlos: 247.4 cm/sec TR max P.5 mmHg ECHO/Echo Complete Interpretation Summary Normal LV size. Left ventricular systolic function is normal. The estimated ejection fraction is 55 %. Stage 3 diastolic dysfunction. Pulmonary artery systolic pressure is 28 mmHg. Stable appearing bioprosthetic mitral valve apparatus. ICD or pacer leads identified within the right ventricle. Ordering Physician: SAROJ VALLECILLO Referring Physician: SAROJ VALLECILLO Performed By: Katerin Frazier RDCS
== END 2022-11-27 23:59 | disposition home or self-care (01) ==
DX: R07.89 Other chest pain (principal); I48.91 Unspecified atrial fibrillation; Z95.2 Presence of prosthetic heart valve; Z79.01 Long term (current) use of 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s
CPT/HCPCS: 36416; 85610; 93306

== ENCOUNTER 2022-11-27 10:01 | Outpatient (RCR) | payer MEDICARE, SELFPAY ==
[2022-10-31 22:45] VITALS: BMI 26.7
[2022-11-27 10:09] LABS: INR Fingerstick 3.1; Prothrombin Time Fingerstick 33.6 SEC (11.7-14.9)
== END 2022-12-01 18:00 | disposition home or self-care (01) ==
LOC: LAB 10:01
PROVIDERS: PCP Psychiatry & Neurology Psychiatry; Referring Provider Internal Medicine Cardiovascular Disease; Visit Provider Internal Medicine Cardiovascular Disease
DX: I48.91 Unspecified atrial fibrillation (principal); Z79.01 Long term (current) use of 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s
CPT/HCPCS: 36416; 85610

== ENCOUNTER 2022-12-22 16:01 | Outpatient (RCR) | payer MEDICARE, SELFPAY ==
[2022-12-02 01:06] VITALS: BMI 26.7
[2022-12-05 10:42] LABS: INR Fingerstick 2.5; Prothrombin Time Fingerstick 26.6 SEC (11.7-14.9)
[2022-12-22 16:10] LABS: INR Fingerstick 2.1; Prothrombin Time Fingerstick 23.1 SEC (11.7-14.9)
== END 2022-12-22 18:00 | disposition home or self-care (01) ==
LOC: LAB 16:01
PROVIDERS: PCP Psychiatry & Neurology Psychiatry; Referring Provider Internal Medicine Cardiovascular Disease; Visit Provider Internal Medicine Cardiovascular Disease
DX: I48.91 Unspecified atrial fibrillation (principal); Z79.01 Long term (current) use of 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s
CPT/HCPCS: 36416; 85610

== ENCOUNTER → 2022-12-22 | Outpatient (CLI) | payer MEDICARE, SELFPAY ==
--- NOTE | 2022-12-22 14:32 | BI_ITS ---
MAMMOGRAPHY - BILATERAL DIAGNOSTIC REASON FOR EXAM: Female, 82 years old. Bilateral breast pain since fall in September 2022 PERTINENT HISTORY: Mother with breast cancer. Remote history of right breast biopsy. TECHNIQUE: Digital bilateral breast robbie (3D mammographic acquisition) in the CC and MLO projections. 2-D mediolateral oblique (MLO) and craniocaudad (CC) views of both breasts were obtained. CAD: Full Field Digital Mammography with Computer Added Detection was performed. COMPARISON: Screening mammogram from 02/18/2022. FINDINGS: Breast Composition: There are scattered areas of fibroglandular density. There is an asymmetry in the right inner breast, middle depth, approximately 3.5 cm posterior to the nipple and seen only on cc views which appears slightly more conspicuous than on prior study. A spot compression view was obtained which demonstrated dispersion of normal fibroglandular tissue. There are no other suspicious masses or suspicious calcifications. Stable pacemaker device is partially visualized in the left axilla. Stable biopsy clip within the right breast. No other significant abnormalities are identified. BI/DIAG MAMM W/CAD, BILAT IMPRESSION: Negative diagnostic mammogram. Yearly followup mammogram recommended. (A) ASSESSMENT CATEGORY: BIRADS Category 1: Negative. A letter regarding these results will be sent to the patient by the facility within 30 days. Recommendation: Return to annual screening mammography. Approximately 10% of breast cancers are not detected by mammography. A normal mammogram should not delay biopsy of a clinically suspicious abnormality. Electronically Signed: William Nix DO at 8:52 EDT ,
== END | disposition home or self-care (01) ==
LOC: OPBI 14:29
PROVIDERS: PCP Psychiatry & Neurology Psychiatry
DX: N64.4 Mastodynia (principal)
CPT/HCPCS: 77062; 77066; G0279

== ENCOUNTER → 2023-01-22 | Outpatient (CLI) | payer MEDICARE, SELFPAY ==
--- NOTE | 2023-01-22 10:29 | BD_ITS ---
STUDY: DUAL ENERGY X-RAY ABSORPTIOMETRY / DXA REASON FOR EXAM: Female, 82 years old. [id number] TECHNIQUE: Bone Mineral Density (BMD) measurements of lumbar spine and bilateral hips were obtained. COMPARISON: None. FINDINGS: Lumbar Spine (L1-L4): g/cm2 (0.844) / T-score (-1.8) / Z-score (0.8) Findings are suggestive of osteopenia with a moderate fracture risk. Left Femur Total: g/cm2 (0.749) / T-score (-1.6) / Z-score (0.5) Left Femoral Neck: g/cm2 (0.550) / T-score (-2.7) / Z-score (-0.4) Right Femur Total: g/cm2 (0.753) / T-score (-1.5) / Z-score (0.5) Right Femoral Neck: g/cm2 (0.561) / T-score (-2.6) / Z-score (-0.3) BD/Dexa Bone Density Study IMPRESSION: The patient is considered osteoporotic as outlined below according to World Paul Organization (WHO) criteria with a high fracture risk. Reference Information: The T-score is the number of standard deviations above or below the standard which is normal for young adults at their peak bone mineral density. The World Health Organization (WHO) interprets the T-scores as follows: Above -1 Normal bone density Between -1 and -2.5 Osteopenia Equal to / or below -2.5 Osteoporosis As a practical clinical guideline, osteopenia may be graded as follows: Mild -1 through -1.5 Moderate -1.6 through -2.0 Severe -2.1 through -2.4 The Z-score is the number of standard deviations above or below age-matched controls. A Z-score of less than -1.5 would be considered abnormal. References: 1. NIH Osteoporosis and Related Bone Diseases www osteo.org 2. International Society for Clinical Densitometry www iscd.org 3. National Osteoporosis Foundation www nof.org Electronically Signed: Franky Grimes MD at 14:25 EDT ,
== END | disposition home or self-care (01) ==
LOC: OPBD 10:22
PROVIDERS: PCP Psychiatry & Neurology Psychiatry
DX: M81.0 Age-related osteoporosis without current pathological fracture (principal)
CPT/HCPCS: 77080

== ENCOUNTER 2023-01-29 14:40 | Outpatient (RCR) | payer MEDICARE, SELFPAY ==
[2023-01-01 23:25] VITALS: BMI 26.7
[2023-01-29 14:47] LABS: INR Fingerstick 2.3; Prothrombin Time Fingerstick 24.6 SEC (11.7-14.9)
== END 2023-01-29 18:00 | disposition home or self-care (01) ==
LOC: LAB 14:40
PROVIDERS: PCP Psychiatry & Neurology Psychiatry; Referring Provider Internal Medicine Cardiovascular Disease; Visit Provider Internal Medicine Cardiovascular Disease
DX: I48.91 Unspecified atrial fibrillation (principal); Z79.01 Long term (current) use of 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s
CPT/HCPCS: 36416; 85610

== ENCOUNTER 2023-03-02 12:35 | Outpatient (RCR) | payer MEDICARE, SELFPAY ==
[2023-02-01 04:17] VITALS: BMI 26.7
[2023-03-02 12:45] LABS: INR Fingerstick 1.5; Prothrombin Time Fingerstick 16.4 SEC (11.7-14.9)
[2023-03-02 12:45] LABS: INR Fingerstick 1.5; Prothrombin Time Fingerstick 17.1 SEC (11.7-14.9)
== END 2023-03-02 18:00 | disposition home or self-care (01) ==
LOC: LAB 12:35
PROVIDERS: PCP Psychiatry & Neurology Psychiatry; Referring Provider Internal Medicine Cardiovascular Disease; Visit Provider Internal Medicine Cardiovascular Disease
DX: I48.91 Unspecified atrial fibrillation (principal); Z79.01 Long term (current) use of 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s
CPT/HCPCS: 36416; 85610

== ENCOUNTER 2023-03-23 11:54 | Outpatient (RCR) | payer MEDICARE, SELFPAY ==
[2023-03-03 22:39] VITALS: BMI 26.7
[2023-03-09 12:53] LABS: Prothrombin Time Fingerstick 22.3 SEC (11.7-14.9)
[2023-03-23 13:04] LABS: INR Fingerstick 2.2; Prothrombin Time Fingerstick 24.1 SEC (11.7-14.9)
== END 2023-04-02 18:00 | disposition home or self-care (01) ==
LOC: LAB 11:54
PROVIDERS: PCP Psychiatry & Neurology Psychiatry; Referring Provider Internal Medicine Cardiovascular Disease; Visit Provider Internal Medicine Cardiovascular Disease
DX: I48.91 Unspecified atrial fibrillation (principal); Z79.01 Long term (current) use of 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s
CPT/HCPCS: 36416; 85610

== ENCOUNTER 2023-04-13 11:05 | Outpatient (RCR) | payer MEDICARE, SELFPAY ==
[2023-04-03 04:00] VITALS: BMI 26.7
[2023-04-06 08:31] LABS: INR Fingerstick 2.7; Prothrombin Time Fingerstick 28.8 SEC (11.7-14.9)
[2023-04-13 11:12] LABS: INR Fingerstick 2.1; Prothrombin Time Fingerstick 23.3 SEC (11.7-14.9)
== END 2023-05-03 18:00 | disposition home or self-care (01) ==
LOC: LAB 11:05
PROVIDERS: PCP Psychiatry & Neurology Psychiatry; Referring Provider Internal Medicine Cardiovascular Disease; Visit Provider Internal Medicine Cardiovascular Disease
DX: I48.91 Unspecified atrial fibrillation (principal); Z79.01 Long term (current) use of 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s
CPT/HCPCS: 36416; 85610

== ENCOUNTER 2023-06-02 12:44 | Outpatient (RCR) | payer MEDICARE, SELFPAY ==
[2023-05-03 23:17] VITALS: BMI 26.7
[2023-05-06 12:58] LABS: INR Fingerstick 2.8; Prothrombin Time Fingerstick 30.5 SEC (11.7-14.9)
[2023-06-02 12:56] LABS: INR Fingerstick 2.2; Prothrombin Time Fingerstick 22.5 SEC (11.7-14.9)
== END 2023-06-02 18:00 | disposition home or self-care (01) ==
LOC: LAB 12:44
PROVIDERS: PCP Psychiatry & Neurology Psychiatry; Referring Provider Internal Medicine Cardiovascular Disease; Visit Provider Internal Medicine Cardiovascular Disease
DX: I48.91 Unspecified atrial fibrillation (principal); Z79.01 Long term (current) use of 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s
CPT/HCPCS: 36416; 85610

== ENCOUNTER 2023-06-30 13:13 | Outpatient (RCR) | payer MEDICARE, SELFPAY ==
[2023-06-03 23:29] VITALS: BMI 26.7
[2023-06-30 13:24] LABS: INR Fingerstick 2.7; Prothrombin Time Fingerstick 27.3 SEC (11.7-14.9)
== END 2023-07-02 18:00 | disposition home or self-care (01) ==
LOC: LAB 13:13
PROVIDERS: PCP Psychiatry & Neurology Psychiatry; Referring Provider Internal Medicine Cardiovascular Disease; Visit Provider Internal Medicine Cardiovascular Disease
DX: I48.91 Unspecified atrial fibrillation (principal); Z79.01 Long term (current) use of 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s
CPT/HCPCS: 36416; 85610

== ENCOUNTER 2023-07-02 11:38 | Inpatient (IN) | payer MEDICARE, SELFPAY ==
[2023-07-02] VITALS (8 sets, daily range): BP systolic 85–137; BP diastolic 54–74; PULSE 60–83; RESP 16–18; TEMP 35.7–36.8; O2SAT 94–98; BMI 27.3; BMI 27.0
--- NOTE | 2023-07-02 11:58 | CT_ITS ---
STUDY: CT ABDOMEN AND PELVIS WITH CONTRAST REASON FOR EXAM: Female, 82 years old. Gi bleed, abdominal pain RADIATION DOSAGE (If Supplied By Facility): CTDIvol = ( 13.36 ) mGy, DLP = ( 487.83 ) mGycm TECHNIQUE: Transaxial images were obtained from the dome of the diaphragm to the symphysis pubis without oral contrast. IV 100mL [id number]-300 was administered. Sagittal and coronal images were reconstructed. Individualized dose optimization techniques were used for this CT. COMPARISON: None. FINDINGS: Mild degree of increased linear markings at the lung bases suggestive of scarring. A dual-chamber pacemaker is seen. Coronary calcification. There is decreased attenuation of the liver consistent with steatosis. There are surgical clips in the gallbladder fossa consistent with a prior cholecystectomy. Normal spleen. Normal pancreas. Normal bilateral adrenal glands. Right renal cysts are seen. The largest cyst measures 2 cm x 1.7 cm. This is in the lower pole. 3 mm nonobstructive calculus in the midpole calyx of the left kidney. There is a 1.2 cm cyst in the anterior lower pole of the left kidney. Normal visualized stomach. Normal small intestine. There is diverticulosis, with thickening of the colon wall, and pericolonic inflammation changes consistent with mild acute diverticulitis. The appendix is visualized and appears normal. There is scattered atherosclerotic calcification of the abdominal aorta, without a demonstrated aneurysm. Normal inferior vena cava. Normal retroperitoneum. Normal urinary bladder. There is absence of the uterus consistent with a prior hysterectomy. Normal abdominal wall. Normal osseous structures. CT/Abdomen/Pelvis W IV Cont ONLY IMPRESSION: Sigmoid diverticulosis and mild degree of sigmoid diverticulitis. Status post cholecystectomy. Fatty liver. Bilateral renal cysts more prominent on the right side. Nonobstructive calculus in the left kidney. Electronically Signed: Franky Grimes MD at 13:50 EST ,
--- NOTE | 2023-07-02 12:03 | ED.VIS.GI ---
HPI <Dr. Reyna Sanders DO - Last Filed: 07/02/23 22:15> HPI - GI History of Present Illness Chief Complaint: GI Bleed <DIANE Laws - Last Filed: 07/02/23 17:05> HPI - GI Narrative Narrative: Patient presenting today due to hematochezia that she had this morning. She reports that she had multiple bowel movements with bright red blood. Shorts that this happened once last week but then went away. She reports that over the past 5 days she has had a, GI bug. Reports that she has had intermittent abdominal cramping, nausea, and diarrhea. It seems to be getting better until today. She reports that a few days ago she did insert her finger in her rectum due to a feeling of irritation and is not sure if she may have cut herself or not. She denies any history of GI bleed. She does have history of diverticulosis. She denies fevers, chills, vomiting, and urinary symptoms. Previous abdominal surgeries include umbilical hernia repair, hysterectomy, and cholecystectomy. She does take warfarin due to history of A-fib. [facility] <Dr. Reyna Sanders DO - Last Filed: 07/02/23 22:15> [facility] Medical History (Updated 07/02/23 @ 16:38 by Amy Jordan) Acute non-ST elevation myocardial infarction (NSTEMI) Anticoagulated on warfarin Atrial fibrillation Atrial fibrillation with RVR 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 CPAP (continuous positive airway pressure) dependence Depression Endometrial cancer GERD (gastroesophageal reflux disease) GI bleed Hernia Mitral and aortic valve disease Neuropathy Non-smoker Osteopenia Pacemaker 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, left Presence of permanent cardiac pacemaker (~05/20/21) Sleep apnea Home Medications cholecalciferol (vitamin D3) 25 mcg (1,000 unit) tablet (Vitamin D3) 1,000 unit PO DAILY REPLACEMENT 05/21/18 [History Last Taken 10/05/21 09:00] cyanocobalamin (vitamin B-12) 1,000 mcg sublingual tablet 1,000 mcg sublingual DAILY replacement 05/21/18 [History Last Taken 10/05/21 09:00] citalopram 10 mg tablet 10 mg PO QHS depression 12/31/20 [History Last Taken 10/04/21 21:00] simvastatin 10 mg tablet 10 mg PO QHS cholesterol 02/23/21 [History Last Taken 10/04/21 21:00] biotin 1,000 mcg chewable tablet 1,000 mcg PO DAILY SUPPLEMENT 05/06/21 [History Last Taken 10/04/21 20:00] ipratropium bromide 42 mcg (0.06 %) nasal spray 2 spray intranasal BID NASAL 05/06/21 [History Last Taken 10/05/21 09:00] pramipexole 0.5 mg tablet 0.75 mg PO QHS RLS 05/06/21 [History Last Taken 10/04/21 21:00] fexofenadine 180 mg tablet (Allergy Relief (fexofenadine)) 180 mg PO DAILY allergy 07/09/21 [History Last Taken 10/05/21 09:00] acetaminophen 500 mg tablet 1,000 mg (2 x 500 mg) PO Q6H PRN PRN Pain Score 1-3 #0 tabs 10/16/21 [Rx Last Taken Unknown] warfarin 1 mg tablet See Rx Instructions .Route .COMPLEX #90 tabs 03/30/23 [Rx Last Taken Unknown] ascorbic acid (vitamin C) 500 mg tablet 500 mg PO DAILY supplement 04/06/23 [History Last Taken Unknown] calcium 600 mg-D3 800 unit-mag11 50 le-kxyo-pqgolc-stephanie-s.borat tablet (Caltrate 600-D Plus Minerals) 1 tab PO DAILY REPLACEMENT 04/06/23 [History Last Taken Unknown] gabapentin 300 mg capsule 300 mg PO DAILY 07/02/23 [History Last Taken Unknown] gabapentin 300 mg capsule 600 mg PO QHS 07/02/23 [History Last Taken Unknown] warfarin 1 mg tablet 2 mg PO MO 07/02/23 [History Last Taken Unknown] Allergy/AdvReac Type Severity Reaction Status Date / Time sertraline [From Zoloft] AdvReac Other Verified 07/02/23 11:39 Family History Mother Heart disease CAD (coronary artery disease) Hypertension Father Heart disease Bradycardia Bradycardia requiring pacemaker placement. Surgical History History of cholecystectomy History of hysterectomy for cancer History of maze procedure History of mitral valve replacement Hx of atrioventricular node ablation S/P ablation operation for arrhythmia S/P left atrial appendage ligation S/P left atrial appendage ligation S/P Maze operation for atrial fibrillation S/P MVR (mitral valve replacement) Social History household members: none Smoking Status: Never smoker alcohol intake: current alcohol intake frequency: holidays/special occasions only substance use type: does not use ROS <DIANE Laws - Last Filed: 07/02/23 17:05> ROS ED Constitutional Constitutional ED: Denies chills or fever(s) Cardiovascular Cardiovascular: Denies chest pain Respiratory/Chest Respiratory/Chest: Denies cough or dyspnea Gastrointestinal Gastrointestinal: Reports abdominal pain, diarrhea, hematochezia and nausea; Denies constipation or vomiting Genitourinary Genitourinary ED: Denies dysuria, hematuria or urinary urgency Musculoskeletal Musculoskeletal: Denies arthralgias or myalgias Integumentary Denies rash Neurologic Neurologic: Denies weakness EXAM <Dr. Reyna Sanders DO - Last Filed: 07/02/23 22:15> Physical Exam Const Vital Signs: 07/02/23 11:39 07/02/23 12:18 07/02/23 13:17 Temperature 96.3 F L Temperature Source Temporal Pulse Rate 83 62 60 Respiratory Rate 18 16 17 Blood Pressure 112/74 85/60 L 120/66 Blood Pressure Mean 86 68 84 Pulse Ox 96 97 98 Oxygen Delivery Method Nasal Cannula Room Air Room Air 07/02/23 14:18 Temperature 98.3 F Temperature Source Pulse Rate 63 Respiratory Rate 18 Blood Pressure 137/57 H Blood Pressure Mean 83 Pulse Ox 94 Oxygen Delivery Method <DIANE Lwas - Last Filed: 07/02/23 17:05> Physical Exam Const Vital Signs: 07/02/23 11:39 07/02/23 12:18 07/02/23 13:17 Temperature 96.3 F L Temperature Source Temporal Pulse Rate 83 62 60 Respiratory Rate 18 16 17 Blood Pressure 112/74 85/60 L 120/66 Blood Pressure Mean 86 68 84 Pulse Ox 96 97 98 Oxygen Delivery Method Nasal Cannula Room Air Room Air 07/02/23 14:18 Temperature 98.3 F Temperature Source Pulse Rate 63 Respiratory Rate 18 Blood Pressure 137/57 H Blood Pressure Mean 83 Pulse Ox 94 Oxygen Delivery Method Positive well nourished, well developed and no apparent distress General Appearance ED: well developed HEENT Reports normocephalic and head/scalp atraumatic Mouth ED: Yes moist mucous membranes normal Eyes PERRL and EOMs intact bilaterally Neck full ROM and supple Chest Wall inspection of chest normal Resp normal respiratory effort and clear to auscultation bilaterally Cardio regular rate and regular rhythm GI soft to palpation, non-distended and no masses GI Narrative: Minimal tenderness to the left lower quadrant without rigidity, guarding, or peritoneal signs. Negative McBurney's point tenderness. Rectal exam: This was performed with nurse in the room. No external hemorrhoids visualized, normal sphincter tone. Bright red blood visualized on ELVI. Back/Spine normal ROM and normal to inspection Extremity normal to inspection and full ROM Neuro oriented x3, CN's II-XII intact bilaterally, moves all extremities, no focal motor deficits and no sensory deficits noted Sensorium / Orientation: awake and alert Psych mental status grossly normal and thought process normal Skin no rashes or lesions noted and no wounds [facility] <Dr. Reyna Sanders, DO - Last Filed: 07/02/23 22:15> [facility] Narrative Medical decision making narrative: Patient is nontoxic-appearing and in no acute distress, she is presenting due to rectal bleeding that started today. She did have 1 episode last week that went away. She is mild cramping in her left lower quadrant. His colonoscopy was 2013 which showed diverticulosis. Labs will be obtained to rule out anemia, leukocytosis, electrolyte abnormality, BG, and hepatobiliary etiology. CT of the abdomen and pelvis will be obtained to rule out diverticulitis and other etiology. I have personally performed a face to face assessment of the patient and have reviewed the ELISE Note. I performed a substantive portion of the visit including all aspects of the following. My rg findings include: History is [patient presents to the emergency department with complaint of rectal bleeding that started this morning. Patient states that she has had 3 episodes of bright red blood per rectum and did pass a clot initially. She describes some just mild discomfort to the left lower abdomen. Patient states that last week she had what she thought was a stomach flu with some nausea and vomiting and diarrhea. That seem to be getting better day-to-day. Patient does have history of diverticulosis and her last colonoscopy was in 2013. She is currently on Coumadin for history of A-fib. She denies any fevers or chills or sweats. She denies vomiting blood.] Exam is [HEENT-PERRLA, EOMI. Cranial nerves II through XII grossly intact. TMs clear. Mucous membranes moist. No adenopathy. Cardiovascular-regular rate and rhythm without murmur or ectopy Lungs-clear to auscultation, chest wall stable without crepitus or subcu emphysema Abdomen-normoactive bowel sounds, soft, nontender, no rebound or rigidity, no peritoneal signs. Extremities-intact ?4, normal range of motion, normal pulses, atraumatic] Medical Decison Making [patient presents with bright red blood per rectum on Coumadin with history of diverticulosis. In the differential would be diverticulosis or diverticulitis versus ischemic colitis versus internal hemorrhoid or polyp or colon mass. IV line will be established basic labs will be obtained. Will obtain a CT scan of the abdomen pelvis with contrast to evaluate further. Will obtain an INR.] CBC with differential obtained showing a 5.1 with hemoglobin 13.4 and platelet count of 187. Chemistries unremarkable. LFTs unremarkable. INR was 2.7. Lactate was normal at 1.5. CT scan of the abdomen pelvis showed diverticulosis with some mild diverticulitis. Patient was started on ciprofloxacin and Flagyl IV. Will discuss with hospitalist to evaluate for admission for lower GI bleed and diverticulitis and suspected diverticular hemorrhage. Other additions or changes: [None] Lab Data Attestation: I reviewed the patient's lab results. Labs: Laboratory Results - last 24 hr 07/02/23 12:10 WBC 5.1 RBC 4.39 Hgb 13.4 Hct 39.4 MCV 89.7 MCH 30.5 MCHC 34.0 RDW Std Deviation 41.0 RDW Coeff of Zulma 12.4 Plt Count 187 MPV 8.6 Immature Gran % (Auto) 0.200 Neut % (Auto) 69.5 Lymph % (Auto) 18.2 L [place] % (Auto) 7.6 Eos % (Auto) 3.3 Baso % (Auto) 1.2 H Absolute Neuts (auto) 3.5 Absolute Lymphs (auto) 0.93 Nucleated RBC % 0 PT 28.3 H INR 2.7 Sodium 141 Potassium 3.8 Chloride 112 H Carbon Dioxide 27.0 Anion Gap 2 L BUN 12 Creatinine 0.92 Estim Creat Clear Calc 43.99 Est GFR (MDRD) Af Amer 75 Est GFR (MDRD) Non-Af 62 BUN/Creatinine Ratio 13.0 Glucose 92 Lactic Acid 1.5 Calcium 8.2 L Total Bilirubin 1.20 H AST 23 ALT 26 Alkaline Phosphatase 65 Total Protein 6.3 L Albumin 3.3 Globulin 3.0 Albumin/Globulin Ratio 1.1 Blood Type O NEGATIVE Antibody Screen NEGATIVE Radiography Diagnostic Testing: Clinical Impression(s) from Imaging Studies Abdomen/Pelvis CT 07/02/23 11:58 IMPRESSION: Sigmoid diverticulosis and mild degree of sigmoid diverticulitis. Status post cholecystectomy. Fatty liver. Bilateral renal cysts more prominent on the right side. Nonobstructive calculus in the left kidney. Electronically Signed: Franky Grimes MD at 13:50 EST , <DIANE Laws - Last Filed: 07/02/23 17:05> [facility] Narrative Medical decision making narrative: Patient is nontoxic-appearing and in no acute distress, she is presenting due to rectal bleeding that started today. She did have 1 episode last week that went away. She is mild cramping in her left lower quadrant. His colonoscopy was 2013 which showed diverticulosis. Labs will be obtained to rule out anemia, leukocytosis, electrolyte abnormality, BG, and hepatobiliary etiology. CT of the abdomen and pelvis will be obtained to rule out diverticulitis and other etiology. CT does show mild diverticulitis, she will be started on Cipro and Flagyl. Did discuss patient with hospitalist due to concerns for GI bleed and she will be admitted in stable condition. She is comfortable with plan. I have personally performed a face to face assessment of the patient and have reviewed the ELISE Note. I performed a substantive portion of the visit including all aspects of the following. My rg findings include: History is [patient presents to the emergency department with complaint of rectal bleeding that started this morning. Patient states that she has had 3 episodes of bright red blood per rectum and did pass a clot initially. She describes some just mild discomfort to the left lower abdomen. Patient states that last week she had what she thought was a stomach flu with some nausea and vomiting and diarrhea. That seem to be getting better day-to-day. Patient does have history of diverticulosis and her last colonoscopy was in 2013. She is currently on Coumadin for history of A-fib. She denies any fevers or chills or sweats. She denies vomiting blood.] Exam is [HEENT-PERRLA, EOMI. Cranial nerves II through XII grossly intact. TMs clear. Mucous membranes moist. No adenopathy. Cardiovascular-regular rate and rhythm without murmur or ectopy Lungs-clear to auscultation, chest wall stable without crepitus or subcu emphysema Abdomen-normoactive bowel sounds, soft, nontender, no rebound or rigidity, no peritoneal signs. Extremities-intact ?4, normal range of motion, normal pulses, atraumatic] Medical Decison Making [patient presents with bright red blood per rectum on Coumadin with history of diverticulosis. In the differential would be diverticulosis or diverticulitis versus ischemic colitis versus internal hemorrhoid or polyp or colon mass. IV line will be established basic labs will be obtained. Will obtain a CT scan of the abdomen pelvis with contrast to evaluate further. Will obtain an INR.] CBC with differential obtained showing a 5.1 with hemoglobin 13.4 and platelet count of 187. Chemistries unremarkable. LFTs unremarkable. INR was 2.7. Lactate was normal at 1.5. CT scan of the abdomen pelvis showed diverticulosis with some mild diverticulitis. Patient was started on ciprofloxacin and Flagyl IV. Will discuss with hospitalist to evaluate for admission for lower GI bleed and diverticulitis and suspected diverticular hemorrhage. Other additions or changes: [None] Lab Data Labs: Laboratory Results - last 24 hr 07/02/23 12:10 WBC 5.1 RBC 4.39 Hgb 13.4 Hct 39.4 MCV 89.7 MCH 30.5 MCHC 34.0 RDW Std Deviation 41.0 RDW Coeff of Zulma 12.4 Plt Count 187 MPV 8.6 Immature Gran % (Auto) 0.200 Neut % (Auto) 69.5 Lymph % (Auto) 18.2 L [place] % (Auto) 7.6 Eos % (Auto) 3.3 Baso % (Auto) 1.2 H Absolute Neuts (auto) 3.5 Absolute Lymphs (auto) 0.93 Nucleated RBC % 0 PT 28.3 H INR 2.7 Sodium 141 Potassium 3.8 Chloride 112 H Carbon Dioxide 27.0 Anion Gap 2 L BUN 12 Creatinine 0.92 Estim Creat Clear Calc 43.99 Est GFR (MDRD) Af Amer 75 Est GFR (MDRD) Non-Af 62 BUN/Creatinine Ratio 13.0 Glucose 92 Lactic Acid 1.5 Calcium 8.2 L Total Bilirubin 1.20 H AST 23 ALT 26 Alkaline Phosphatase 65 Total Protein 6.3 L Albumin 3.3 Globulin 3.0 Albumin/Globulin Ratio 1.1 Blood Type O NEGATIVE Antibody Screen NEGATIVE Radiography Diagnostic Testing: Clinical Impression(s) from Imaging Studies Abdomen/Pelvis CT 07/02/23 11:58 IMPRESSION: Sigmoid diverticulosis and mild degree of sigmoid diverticulitis. Status post cholecystectomy. Fatty liver. Bilateral renal cysts more prominent on the right side. Nonobstructive calculus in the left kidney. Electronically Signed: Franky Grimes MD at 13:50 EST Reading Location ID and State: [facility] / [place] , Service support , Discharge Plan Dx/Rx/DC Orders Clinical Impression: Transient hypotension, Acute diverticulitis, Acute lower gastrointestinal bleeding Disposition Disposition: Acute Care Hospital [facility] Discharge Date/Time: 07/02/23 16:18
[2023-07-02] MEDS: 0.9% Normal Saline (1000mL) 1,000 ML 1000 ML IV (12:18)
[2023-07-02 12:28] LABS: Absolute Lymphocyte Count 0.93 X10^3/uL (0.83-4.51); Absolute Neutrophil Count 3.5 X10^3/uL (2.0-7.7); Basophil# 0.06 X10^3/uL; Basophil% 1.2 % (0-1); Eosinophil# 0.17 X10^3/uL; Eosinophils% 3.3 % (0-5); Hematocrit 39.4 % (37-47); Hemoglobin 13.4 g/dL (12.0-15.0); Lymphocyte # 0.93 X10^3/ul (0.83-4.51); Lymphocyte % 18.2 % (19-41); Mean Corpuscular Hgb 30.5 pg (27.0-32.0); Mean Corpuscular Volume 89.7 fL (81-99); Mean Platelet Vol. 8.6 fl (6.2-12.0); Monocyte# 0.39 X10^3/uL; Monocyte% 7.6 % (0-10); NRBC Flagged by Analyzer 0 % (0-5); Neutrophil # 3.54 X10^3/uL (2.7-7.7); Neutrophil % 69.5 % (47-70); Platelet Count 187 K/mm3 (150-450); RBC Distribution Width CV 12.4 % (11.6-14.6); Red Blood Count 4.39 M/mm3 (4.2-5.4); White Blood Count 5.1 K/mm3 (4.4-11.0)
[2023-07-02 12:34] LABS: International Normalized Ratio 2.7; Prothrombin Time (Protime)PT. 28.3 SECONDS (11.7-14.9)
[2023-07-02 12:57] LABS: ALB/GLOB Ratio 1.1 RATIO (0.9-2.4); AST(SGOT) 23 U/L (15-37); Alanine Aminotransfer ALT/SGPT 26 U/L (13-56); Albumin, Serum 3.3 g/dL (3.2-5.0); Alkaline Phosphatase 65 U/L (45-117); Anion Gap 2 (5-15); BUN 12 mg/dL (7-18); Calcium,Total 8.2 mg/dL (8.5-10.1); Chloride 112 mmol/L (98-107); Creatinine, Serum 0.92 mg/dL (0.55-1.02); EST Glomerular Filtration Rate 62 mL/min (>60); Est Glom Filt Rate - Afr Amer 75 mL/min (>60); Estimated Creatinine Clearance 43.99 ml/min; Glucose 92 mg/dL (74-106); Potassium 3.8 mmol/L (3.5-5.1); Protein, Total 6.3 g/dL (6.4-8.2); Sodium Level 141 mmol/L (136-145)
[2023-07-02 12:58] LABS: Lactic Acid 1.5 mmol/L (0.4-1.9)
[2023-07-02] MEDS: 0.9% Normal Saline (1000mL) 1,000 ML 999 ML IV (13:15)
[2023-07-02] MEDS: metroNIDAZOLE 500 MG/100 ML BAG 100 MG IV (14:17)
--- NOTE | 2023-07-02 15:36 | CHAPLAIN ---
Type of Pastoral Visit _x__ Initial Visit ___ Follow-up Visit ___ On-call Visit ___ General Patient Visit ___ Spiritual Assessment ___ Family Conference ___ Bereavement ___ Rapid Response ___ Code Blue ___ Other (describe below) Pastoral Care Referral From _x__ Patient _x__ Family ___ Nurse ___ Physician ___ Art Gallery Director ___ Endocrinologist ___ Other (describe below) Sacrament/Intervention _x__ Active listening ___ Anointing ___ Congregational ___ Bereavement ___ Communion ___ [place] exploration ___ ___ Life review _x__ Prayer ___ Reconciliation ___ Sacrament of Sick _x__ Supportive presence ___ Wedding ___ Other (describe below) Pastoral Comments
[2023-07-02] MEDS: Ciprofloxacin 400 MG/200 ML BAG 200 MG IV (15:37)
[2023-07-02] MEDS: 0.9% Normal Saline (1000mL) 1,000 ML 125 ML IV (16:53)
[2023-07-02 18:00] LABS: Hemoglobin 12.5 g/dL (12.0-15.0)
--- NOTE | 2023-07-02 19:31 | PCM.HP.STD ---
HPI - General General Date of Admission: 07/02/23 Date of Service: 07/02/23 Chief Complaint: Rectal bleeding HPI Narrative GLORIA MATHEW, is a 82 F who presents to the emergency room at [facility] with complaints of rectal bleeding this morning, she also complained of rectal bleeding last week but it resolved. It was only on 1 day approximately a week ago. Patient is on Coumadin chronically for A-fib. Patient denies any melanotic stools, she denies any hematemesis. She complains of mild abdominal discomfort in the left lower quadrant. Workup in the emergency room showed a normal CBC, chemistry profile was unremarkable, patient's CT of the abdomen and pelvis showed sigmoid diverticulitis and diverticular disease in the sigmoid. Patient will be admitted to [facility], she will be given IV antibiotics, and labs will be monitored. Patient will need outpatient colonoscopy performed, I feel that the red rectal bleeding is due to diverticular bleeding. [facility] Medical History (Updated 07/02/23 @ 16:38 by Amy Jordan) Acute non-ST elevation myocardial infarction (NSTEMI) Anticoagulated on warfarin Atrial fibrillation Atrial fibrillation with RVR 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 CPAP (continuous positive airway pressure) dependence Depression Endometrial cancer GERD (gastroesophageal reflux disease) GI bleed Hernia Mitral and aortic valve disease Neuropathy Non-smoker Osteopenia Pacemaker 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, left Presence of permanent cardiac pacemaker (~05/20/21) Sleep apnea Home Medications cholecalciferol (vitamin D3) 25 mcg (1,000 unit) tablet (Vitamin D3) 1,000 unit PO DAILY REPLACEMENT 05/21/18 [History Last Taken 10/05/21 09:00] cyanocobalamin (vitamin B-12) 1,000 mcg sublingual tablet 1,000 mcg sublingual DAILY replacement 05/21/18 [History Last Taken 10/05/21 09:00] citalopram 10 mg tablet 10 mg PO QHS depression 12/31/20 [History Last Taken 10/04/21 21:00] simvastatin 10 mg tablet 10 mg PO QHS cholesterol 02/23/21 [History Last Taken 10/04/21 21:00] biotin 1,000 mcg chewable tablet 1,000 mcg PO DAILY SUPPLEMENT 05/06/21 [History Last Taken 10/04/21 20:00] ipratropium bromide 42 mcg (0.06 %) nasal spray 2 spray intranasal BID NASAL 05/06/21 [History Last Taken 10/05/21 09:00] pramipexole 0.5 mg tablet 0.75 mg PO QHS RLS 05/06/21 [History Last Taken 10/04/21 21:00] fexofenadine 180 mg tablet (Allergy Relief (fexofenadine)) 180 mg PO DAILY allergy 07/09/21 [History Last Taken 10/05/21 09:00] acetaminophen 500 mg tablet 1,000 mg (2 x 500 mg) PO Q6H PRN PRN Pain Score 1-3 #0 tabs 10/16/21 [Rx Last Taken Unknown] warfarin 1 mg tablet See Rx Instructions .Route .COMPLEX #90 tabs 03/30/23 [Rx Last Taken Unknown] ascorbic acid (vitamin C) 500 mg tablet 500 mg PO DAILY supplement 04/06/23 [History Last Taken Unknown] calcium 600 mg-D3 800 unit-mag11 50 yr-dpyu-lqdmmo-stephanie-s.borat tablet (Caltrate 600-D Plus Minerals) 1 tab PO DAILY REPLACEMENT 04/06/23 [History Last Taken Unknown] gabapentin 300 mg capsule 300 mg PO DAILY 07/02/23 [History Last Taken Unknown] gabapentin 300 mg capsule 600 mg PO QHS 07/02/23 [History Last Taken Unknown] warfarin 1 mg tablet 2 mg PO MO 07/02/23 [History Last Taken Unknown] Allergy/AdvReac Type Severity Reaction Status Date / Time sertraline [From Zoloft] AdvReac Other Verified 07/02/23 11:39 Family History Mother Heart disease CAD (coronary artery disease) Hypertension Father Heart disease Bradycardia Bradycardia requiring pacemaker placement. Surgical History History of cholecystectomy History of hysterectomy for cancer History of maze procedure History of mitral valve replacement Hx of atrioventricular node ablation S/P ablation operation for arrhythmia S/P left atrial appendage ligation S/P left atrial appendage ligation S/P Maze operation for atrial fibrillation S/P MVR (mitral valve replacement) Social History household members: none Smoking Status: Never smoker alcohol intake: current alcohol intake frequency: holidays/special occasions only substance use type: does not use ROS Constitutional Constitutional: Denies anorexia, change in weight, chills, fatigue, fever(s), malaise, night sweats or weakness Eyes Eyes: Denies blurry vision, change in vision, discharge from eye(s) or eye pain Cardiovascular Cardiovascular: Denies chest pain, claudication, dyspnea on exertion, edema or palpitations Respiratory/Chest Respiratory/Chest: Denies cough, hemoptysis, shortness of breath at rest or shortness of breath with exertion Gastrointestinal Gastrointestinal: Reports hematochezia; Denies abdominal pain, coffee ground emesis, constipation, diarrhea, hematemesis, melena, nausea or vomiting Genitourinary Genitourinary: Denies dysuria, hematuria, urinary frequency, urinary hesitancy, urinary incontinence or urinary urgency Musculoskeletal Musculoskeletal: Denies back pain, joint pain, joint stiffness, joint swelling, myalgias or neck pain Neurologic Neurologic: Denies abnormal gait, abnormal speech, dizziness, focal weakness, headache(s), loss of vision, numbness, other visual disturbances, paresthesias, syncope or tingling Psychiatric Psychiatric: Denies anxiety, cognitive impairment, depression, irritability, mood swings or suicidal ideation Endocrine Endocrinology: Denies change in body appearance, cold intolerance, excessive sweating, heat intolerance, polydipsia or polyuria Hematologic/Lymphatic Hematologic/Lymphatic: Denies none, anemia, easy bleeding, easy bruising or lymphadenopathy Allergic/Immunologic Allergic/Immunologic: Denies rhinitis, urticaria, eczemia or asthma Vital Signs Vital Signs Vital Signs: 07/02/23 11:39 07/02/23 12:18 07/02/23 13:17 Temperature 96.3 F L Temperature Source Temporal Pulse Rate 83 62 60 Respiratory Rate 18 16 17 Respiratory Effort Respiratory Depth Respiratory Pattern Blood Pressure 112/74 85/60 L 120/66 Blood Pressure Mean 86 68 84 Blood Pressure Source Blood Pressure Position Blood Pressure Location Pulse Ox 96 97 98 Oxygen Delivery Method Nasal Cannula Room Air Room Air 07/02/23 14:18 07/02/23 15:39 07/02/23 17:00 Temperature 98.3 F Temperature Source Pulse Rate 63 64 Respiratory Rate 18 18 Respiratory Effort Normal Non-Labored Respiratory Depth Normal Respiratory Pattern Normal Blood Pressure 137/57 H 116/63 Blood Pressure Mean 83 80 Blood Pressure Source Blood Pressure Position Blood Pressure Location Pulse Ox 94 98 Oxygen Delivery Method Room Air Room Air 07/02/23 17:14 Temperature 97.7 F L Temperature Source Oral Pulse Rate 63 Respiratory Rate 16 Respiratory Effort Respiratory Depth Respiratory Pattern Blood Pressure 110/55 L Blood Pressure Mean 73 Blood Pressure Source Monitor Blood Pressure Position Semi-Fowlers Blood Pressure Location Right Arm Pulse Ox 98 Oxygen Delivery Method Room Air Weight Weight: 67.1 kg Body Mass Index (BMI) 27.0 Physical Exam Const alert, oriented x3, no apparent distress, average body habitus and healthy appearing General Appearance: cooperative, well kempt and well developed Orientation / Consciousness: awake, oriented to person, oriented to place and oriented to time HEENT normocephalic, head/scalp atraumatic, hearing grossly normal bilaterally and moist oral mucous membranes Eyes PERRL, EOMs intact bilaterally and conjunctivae normal Neck supple, no JVD, thyroid normal and no carotid bruits General: trachea midline Resp normal respiratory effort, no retractions, no use of accessory muscles and clear to auscultation bilaterally Auscultation: Negative for rales, rhonchi or wheezes Cardio regular rate, regular rhythm, S1 normal heart sound, S2 normal heart sound, no murmurs, no rub and no gallops GI normal to inspection, nondistended, normoactive bowel sounds, soft to palpation and non-distended GI Narrative: Mild abdominal tenderness to palpation in the left lower quadrant, no rebound abdominal tenderness is noted Extremity normal to inspection and no clubbing, cyanosis or edema Skin no rashes or lesions noted General Skin Exam: no breakdown Neuro oriented x3, CN's II-XII intact bilaterally, no focal motor deficits and no sensory deficits noted Sensorium / Orientation: awake and alert Speech: speech normal Psych affect normal Results Lab / Micro Data 07/02/23 17:43 07/02/23 12:10 Labs: Laboratory Results - last 24 hr 07/02/23 12:10: WBC 5.1, RBC 4.39, Hgb 13.4, Hct 39.4, MCV 89.7, MCH 30.5, MCHC 34.0, RDW Std Deviation 41.0, RDW Coeff of Zulma 12.4, Plt Count 187, MPV 8.6, Immature Gran % (Auto) 0.200, Neut % (Auto) 69.5, Lymph % (Auto) 18.2 L, [place] % (Auto) 7.6, Eos % (Auto) 3.3, Baso % (Auto) 1.2 H, Absolute Neuts (auto) 3.5, Absolute Lymphs (auto) 0.93, Nucleated RBC % 0, PT 28.3 H, INR 2.7, Sodium 141, Potassium 3.8, Chloride 112 H, Carbon Dioxide 27.0, Anion Gap 2 L, BUN 12, Creatinine 0.92, Estim Creat Clear Calc 43.99, Est GFR (MDRD) Af Amer 75, Est GFR (MDRD) Non-Af 62, BUN/Creatinine Ratio 13.0, Glucose 92, Lactic Acid 1.5, Calcium 8.2 L, Total Bilirubin 1.20 H, AST 23, ALT 26, Alkaline Phosphatase 65, Total Protein 6.3 L, Albumin 3.3, Globulin 3.0, Albumin/Globulin Ratio 1.1, Blood Type O NEGATIVE, Antibody Screen NEGATIVE 07/02/23 17:43: Hgb 12.5, Hct 36.0 L Imaging Radiology Impression Abdomen/Pelvis CT 07/02/23 11:58 IMPRESSION: Sigmoid diverticulosis and mild degree of sigmoid diverticulitis. Status post cholecystectomy. Fatty liver. Bilateral renal cysts more prominent on the right side. Nonobstructive calculus in the left kidney. Electronically Signed: Franky Grimes MD at 13:50 EST , Assessment & Plan Assessment/Plan (1) Acute lower gastrointestinal bleeding: PLAN: Plan 1. Acute diverticulitis of the sigmoid colon-patient will be admitted to [facility] 3, labs will be monitored, she was placed on IV Unasyn, I have chosen not to have general surgery see the patient at this time 2. Hematochezia-I feel this is probably secondary to diverticular bleeding, patient will be admitted to [facility] 3, labs will be monitored, I have chosen not to have gastroenterology see the patient at this time, and outpatient colonoscopy will have to be performed #3 chronic atrial fibrillation with paced rhythm-patient will remain off Coumadin for now due to her hematochezia, INR will be repeated tomorrow #4 chronic depression-patient is on citalopram #5 hyperlipidemia-patient is on simvastatin Total clinical time spent by myself addressing the patient's medical issues, reviewing all of her data, and collaborating with patient's care team: 55-minutes Charges/Coding Visit Charges Inpatient E&M: 41340 Init Hosp L2
[2023-07-02] MEDS: Ampicillin/Sulbactam 3 GM in 0.9% Normal Saline (100mL MB+) 100 ML IV (23:53)
[2023-07-02] MEDS: 0.9% Saline Lock 10 ML Syringe IV (23:56)
[2023-07-02] MEDS: Citalopram 10 MG Tablet PO (23:57)
[2023-07-02] MEDS: Pramipexole Di-HCl 0.5 MG Tablet 0.75 MG PO (23:57)
[2023-07-02] MEDS: Gabapentin 600 MG Tablet PO (23:57)
[2023-07-02] MEDS: Atorvastatin Calcium 10 MG Tablet 5 MG PO (23:58)
[2023-07-02] MEDS: Heparin Injection (Vial) 5,000 UNIT/ML VIAL 5000 UNIT SC (23:59)
[2023-07-03] MEDS: Menthol/Lanolin/Calamine/Znox 113 GM Tube 1 APPLIC TOPICAL ×2 (03:17→10:27)
[2023-07-03 03:20] VITALS: BP 116/65; PULSE 75; RESP 18; TEMP 36.7; O2SAT 98
[2023-07-03 05:48] VITALS: BP 127/64; PULSE 74; RESP 18; TEMP 36.3; O2SAT 98
[2023-07-03] MEDS: Ampicillin/Sulbactam 3 GM in 0.9% Normal Saline (100mL MB+) 100 ML IV (05:52)
[2023-07-03 06:45] LABS: Absolute Lymphocyte Count 1.21 X10^3/uL (0.83-4.51); Absolute Neutrophil Count 3.1 X10^3/uL (2.0-7.7); Basophil# 0.07 X10^3/uL; Basophil% 1.4 % (0-1); Eosinophil# 0.22 X10^3/uL; Eosinophils% 4.3 % (0-5); Hematocrit 34.9 % (37-47); Hemoglobin 11.8 g/dL (12.0-15.0); Lymphocyte # 1.21 X10^3/ul (0.83-4.51); Lymphocyte % 23.8 % (19-41); Mean Corp Hgb Conc 33.8 g/dL (32-36); Mean Corpuscular Hgb 30.7 pg (27.0-32.0); Mean Corpuscular Volume 90.9 fL (81-99); Mean Platelet Vol. 8.9 fl (6.2-12.0); Monocyte# 0.42 X10^3/uL; Monocyte% 8.3 % (0-10); NRBC Flagged by Analyzer 0 % (0-5); Neutrophil # 3.14 X10^3/uL (2.7-7.7); Neutrophil % 61.8 % (47-70); Platelet Count 174 K/mm3 (150-450); RBC Distribution Width CV 12.8 % (11.6-14.6); RBC Distribution Width SD 42.4 fl (35.1-43.9); Red Blood Count 3.84 M/mm3 (4.2-5.4); White Blood Count 5.1 K/mm3 (4.4-11.0)
[2023-07-03 06:56] LABS: Prothrombin Time (Protime)PT. 31.2 SECONDS (11.7-14.9)
--- NOTE | 2023-07-03 07:38 | PN.HOSP_ITS ---
Reason for Visit Reason for Visit: Diagnoses Gastrointestinal hemorrhage, unspecified (07/02/23) Subjective Subjective Feeling well. Did have some suprapubic abdominal pain but that seems to be resolving. No further bleeding since she has been here. Objective Data Objective Data Vital Signs: Vital Signs Temp Pulse Resp BP Pulse Ox O2 Del Method 36.3 C L 74 18 127/64 H 98 Room Air 07/03/23 05:48 07/03/23 05:48 07/03/23 05:48 07/03/23 05:48 07/03/23 05:48 07/03/23 05:48 Oxygen Delivery Method Room Air Weight: 67.1 kg Body Mass Index (BMI) 27.0 Intake & Output: Intake and Output for Last 24 Hours 07/01/23 07/02/23 07/03/23 23:59 23:59 23:59 Intake Total 2314.58 / 3608.33 1405.75 / 1405.75 Output Total 100 / 100 Balance 2314.58 / 3608.33 1305.75 / 1305.75 Lab / Micro Data 07/03/23 06:08 07/02/23 12:10 Labs: Laboratory Results - last 24 hr 07/02/23 12:10: WBC 5.1, RBC 4.39, Hgb 13.4, Hct 39.4, MCV 89.7, MCH 30.5, MCHC 34.0, RDW Std Deviation 41.0, RDW Coeff of Zulma 12.4, Plt Count 187, MPV 8.6, Immature Gran % (Auto) 0.200, Neut % (Auto) 69.5, Lymph % (Auto) 18.2 L, [place] % (Auto) 7.6, Eos % (Auto) 3.3, Baso % (Auto) 1.2 H, Absolute Neuts (auto) 3.5, Absolute Lymphs (auto) 0.93, Nucleated RBC % 0, PT 28.3 H, INR 2.7, Sodium 141, Potassium 3.8, Chloride 112 H, Carbon Dioxide 27.0, Anion Gap 2 L, BUN 12, Creatinine 0.92, Estim Creat Clear Calc 43.99, Est GFR (MDRD) Af Amer 75, Est GFR (MDRD) Non-Af 62, BUN/Creatinine Ratio 13.0, Glucose 92, Lactic Acid 1.5, Calcium 8.2 L, Total Bilirubin 1.20 H, AST 23, ALT 26, Alkaline Phosphatase 65, Total Protein 6.3 L, Albumin 3.3, Globulin 3.0, Albumin/Globulin Ratio 1.1, Blood Type O NEGATIVE, Antibody Screen NEGATIVE 07/02/23 17:43: Hgb 12.5, Hct 36.0 L 07/03/23 06:08: WBC 5.1, RBC 3.84 L, Hgb 11.8 L, Hct 34.9 L, MCV 90.9, MCH 30.7, MCHC 33.8, RDW Std Deviation 42.4, RDW Coeff of Zulma 12.8, Plt Count 174, MPV 8.9, Immature Gran % (Auto) 0.400, Neut % (Auto) 61.8, Lymph % (Auto) 23.8, [place] % (Auto) 8.3, Eos % (Auto) 4.3, Baso % (Auto) 1.4 H, Absolute Neuts (auto) 3.1, Absolute Lymphs (auto) 1.21, Nucleated RBC % 0, PT 31.2 H, INR 3.0 Radiography Diagnostic Testing: Radiology Impression Abdomen/Pelvis CT 07/02/23 11:58 IMPRESSION: Sigmoid diverticulosis and mild degree of sigmoid diverticulitis. Status post cholecystectomy. Fatty liver. Bilateral renal cysts more prominent on the right side. Nonobstructive calculus in the left kidney. Electronically Signed: Franky Grimes MD at 13:50 EST , Physical Exam Const alert and no apparent distress HEENT head/scalp atraumatic Resp normal respiratory effort and no retractions Cardio regular rate, regular rhythm, S1 normal heart sound and S2 normal heart sound GI normal to inspection, nondistended, normoactive bowel sounds and soft to palpation Neuro Sensorium / Orientation: awake and alert Assessment & Plan Assessment/Plan (1) Acute lower gastrointestinal bleeding: PLAN: Plan Acute diverticulitis of the sigmoid colon * abx w amp/SB in the hospital. Will transition her to Augmentin pleated 7-day course of antibiotics. * Patient tolerated diet with transitional diet. GI bleed * Likely diverticular etiology exacerbated by warfarin * Resolved. Due to diverticulosis complicated by diverticulitis while being on warfarin. Will have patient hold the warfarin for 48 hours and then resume. Patient advised to return if she has recurrent bleeding. Chronic conditions: * chronic atrial fibrillation with paced rhythm-patient will remain off Coumadin for now due to her hematochezia * chronic depression-patient is on citalopram * hyperlipidemia-patient is on simvastatin VTE prophylaxis: not indicated
[2023-07-03 10:07] VITALS: BP 123/45; PULSE 62; RESP 16; TEMP 37.1; O2SAT 97
[2023-07-03] MEDS: 0.9% Normal Saline (1000mL) 1,000 ML 125 ML IV ×2 (10:26)
[2023-07-03] MEDS: Gabapentin 300 MG Capsule PO (10:32)
--- NOTE | 2023-07-03 13:27 | DS.PCM_ITS ---
Providers Date of Admission: 07/02/23 Primary Care Physician: Dr. Denise Small MD Reason For Visit: GI BLEED Diagnosis Discharge Diagnosis (1) Acute lower gastrointestinal bleeding: Status: Acute Code(s): K92.2 - Gastrointestinal hemorrhage, unspecified Plan Acute diverticulitis of the sigmoid colon * abx w amp/SB in the hospital. Will transition her to Augmentin pleated 7-day course of antibiotics. * Patient tolerated diet with transitional diet. GI bleed * Likely diverticular etiology exacerbated by warfarin * Resolved. Due to diverticulosis complicated by diverticulitis while being on warfarin. Will have patient hold the warfarin for 48 hours and then resume. Patient advised to return if she has recurrent bleeding. Chronic conditions: * chronic atrial fibrillation with paced rhythm-patient will remain off Coumadin for now due to her hematochezia * chronic depression-patient is on citalopram * hyperlipidemia-patient is on simvastatin VTE prophylaxis: not indicated Medications at Discharge Home Medications cholecalciferol (vitamin D3) 25 mcg (1,000 unit) tablet (Vitamin D3) 1,000 unit PO DAILY REPLACEMENT 05/21/18 cyanocobalamin (vitamin B-12) 1,000 mcg sublingual tablet 1,000 mcg sublingual DAILY replacement 05/21/18 citalopram 10 mg tablet 10 mg PO QHS depression 12/31/20 simvastatin 10 mg tablet 10 mg PO QHS cholesterol 02/23/21 biotin 1,000 mcg chewable tablet 1,000 mcg PO DAILY SUPPLEMENT 05/06/21 ipratropium bromide 42 mcg (0.06 %) nasal spray 2 spray intranasal BID NASAL 05/06/21 pramipexole 0.5 mg tablet 0.75 mg PO QHS RLS 05/06/21 fexofenadine 180 mg tablet (Allergy Relief (fexofenadine)) 180 mg PO DAILY allergy 07/09/21 acetaminophen 500 mg tablet 1,000 mg (2 x 500 mg) PO Q6H PRN PRN Pain Score 1-3 #0 tabs 10/16/21 warfarin 1 mg tablet See Rx Instructions .Route .COMPLEX #90 tabs 03/30/23 ascorbic acid (vitamin C) 500 mg tablet 500 mg PO DAILY supplement 04/06/23 calcium 600 mg-D3 800 unit-mag11 50 hl-yxap-rgxmhn-stephanie-s.borat tablet (Caltrate 600-D Plus Minerals) 1 tab PO DAILY REPLACEMENT 04/06/23 gabapentin 300 mg capsule 300 mg PO DAILY 07/02/23 gabapentin 300 mg capsule 600 mg PO QHS 07/02/23 warfarin 1 mg tablet 2 mg PO MO 07/02/23 amoxicillin 875 mg-potassium clavulanate 125 mg tablet 1 tab PO BID #14 tabs 07/03/23 Hospital Course Operations None Procedures None Summary of Care Provided Hospital Course: Patient presented with GI bleed. CAT scan showed diverticulitis. Patient was started on antibiotics. Bleeding is stopped. Likely due to the diverticulitis/diverticulosis while being on warfarin. INR though was therapeutic. Patient hold her warfarin for the next 48 hours. Patient will be discharged with antibiotics with Augmentin. Weight / BMI Weight Weight: 67.1 kg Body Mass Index (BMI) 27.0 ABG / Lab / Microbiology Data 07/03/23 06:08 07/02/23 12:10 Laboratory: Laboratory Results - last 24 hr 07/02/23 12:10: Blood Type O NEGATIVE, Antibody Screen NEGATIVE 07/02/23 17:43: Hgb 12.5, Hct 36.0 L 07/03/23 06:08: WBC 5.1, RBC 3.84 L, Hgb 11.8 L, Hct 34.9 L, MCV 90.9, MCH 30.7, MCHC 33.8, RDW Std Deviation 42.4, RDW Coeff of Zulma 12.8, Plt Count 174, MPV 8.9, Immature Gran % (Auto) 0.400, Neut % (Auto) 61.8, Lymph % (Auto) 23.8, [place] % (Auto) 8.3, Eos % (Auto) 4.3, Baso % (Auto) 1.4 H, Absolute Neuts (auto) 3.1, Absolute Lymphs (auto) 1.21, Nucleated RBC % 0, PT 31.2 H, INR 3.0 Radiography Diagnostic Testing: Radiology Impression Abdomen/Pelvis CT 07/02/23 11:58 IMPRESSION: Sigmoid diverticulosis and mild degree of sigmoid diverticulitis. Status post cholecystectomy. Fatty liver. Bilateral renal cysts more prominent on the right side. Nonobstructive calculus in the left kidney. Electronically Signed: Franky Grimes MD at 13:50 EST , D/C Instructions Discharge Diet: - ([place] diet. Advance as tolerated.) Meaningful Use Info Meaningful Use Diagnoses (Choose all that apply): None applicable Discharge Plan Admission Admit Date/Time: 07/02/23 15:14 Primary Reason for Your Visit: Diverticulitis. GI bleed. Attending Provider: Jaciel Sesay Primary Care Provider: Denise Small Consulting Providers: Piter Perdomo Instructions Additional Instructions / Restrictions: You have acute diverticulitis, which is an infection of the diverticulosis in your colon. Treatment is antibiotics. With this, you have blood complicated by being on Coumadin. Do recommend holding off on your Coumadin for the next 48 hours and then to resume that as normally. Do recommend that you follow-up your primary care doctor in the coming week to have your INR rechecked to make sure that it is in therapeutic range. Discharge Orders/Prescriptions Prescriptions: New amoxicillin-pot clavulanate 875-125 mg tablet 1 tab PO BID Qty: 14 0RF Continued fexofenadine [Allergy Relief (fexofenadine)] 180 mg tablet 180 mg PO DAILY cyanocobalamin (vitamin B-12) 1,000 MCG tablet, sublingual 1,000 mcg sublingual DAILY cholecalciferol (vitamin D3) [Vitamin D3] 1,000 UNIT tablet 1,000 unit PO DAILY Caltrate 600-D Plus Minerals 600 mg calcium- 800 unit-50 mg tablet 1 tab PO DAILY citalopram 10 mg tablet 10 mg PO QHS simvastatin 10 mg tablet 10 mg PO QHS pramipexole 0.5 mg tablet 0.75 mg PO QHS ipratropium bromide 42 mcg (0.06 %) spray,non-aerosol 2 spray INTRANASAL BID biotin 1,000 mcg Tablet,Chewable 1,000 mcg PO DAILY acetaminophen 500 mg Tablet 1,000 mg PO Q6H PRN PRN (Reason: Pain Score 1-3) Qty: 0 0RF gabapentin 300 mg capsule 600 mg PO QHS gabapentin 300 mg capsule 300 mg PO DAILY warfarin 1 mg tablet 2 mg PO MO ascorbic acid (vitamin C) 500 mg tablet 500 mg PO DAILY Held warfarin 1 mg tablet See Rx Instructions .ROUTE .COMPLEX Qty: 90 3RF Hold Instructions: Resume on 07/05/23. Protocol: Dose Management Condition: Thursday Dose/Route: 1 mg Instruction: 1 x 1 mg tablet Condition: Thursday Dose/Route: 2 mg Instruction: 2 x 1 mg tablets Condition: Thursday Dose/Route: 1 mg Instruction: 1 x 1 mg tablet Condition: Thursday Dose/Route: 1 mg Instruction: 1 x 1 mg tablet Condition: Dose/Route: 1 mg Instruction: 1 x 1 mg tablet Condition: Thursday Dose/Route: 1 mg Instruction: 1 x 1 mg tablet Condition: Thursday Dose/Route: 1 mg Instruction: 1 x 1 mg tablet Protocol Text: Adjustment Start Date: Thursday06/30/23 INR Value: 2.7 INR Date: 06/30/23 Recheck Date: 07/30/23 Dose Instruction: TAKE 1 TABLET AT BEDTIME FOR BLOOD THINNER Rx Instructions: TAKE 1 TABLET AT BEDTIME FOR BLOOD THINNER Referrals / Follow Up: Denise Small MD [Primary Care Provider] - Within 1 Week Disposition Disposition (needs filled in before D/C Order can be placed): Home, Self Care Charges/Coding Visit Charges Inpatient E&M: 31612 Disch Hosp >30min
--- NOTE | 2023-07-03 14:15 | CASEMGMT ---
RN?CM?BRICK BURNER HEAD?CM?to room to meet with patient for initial transition planning/care coordination?assessment.?RN?CM?introduced self and role at [facility].? Pt voices understanding and consents to?assessment?at this time.? Pt resting in bed in no distress at this time.? Pt is A/O at this time and answers all questions appropriately.?? Care providers, pharmacy, and demographics verified/updated at this time. PCP: Dr Loree Small Specialists: WHIra/cardiology; Dr Cantor, neurology; Dr Kumari, ENT Preferred Pharmacy: [facility] Insurance: [employer] Prescription Benefit: yes Living Will/HPOA: yes, sister Naina Harrison LNOK: 8 living siblings Living Arrangements: Patient lives alone in a ranch-style home w/11 steps to enter. Patient states she was independent at home prior to current hospitalization. Transportation: self, sister DME: Patient states she has a CPAP and pulse ox at home. SNF: Pt has been to [facility] TCU in the past and has had [facility] HHC. Denies need for HHC and no needs identified. Pt wishes to return home and states has no concerns with going home. Plan: Home [facility] [place] S[place]OS RN CM
--- NOTE | 2023-07-03 15:52 | CHAPLAIN ---
Type of Pastoral Visit ___ Initial Visit _x__ Follow-up Visit ___ On-call Visit ___ General Patient Visit ___ Spiritual Assessment ___ Family Conference ___ Bereavement ___ Rapid Response ___ Code Blue ___ Other (describe below) Pastoral Care Referral From _x__ Patient ___ Family ___ Nurse ___ Physician ___ Client Services Manager ___ Nitrate Operator ___ Other (describe below) Sacrament/Intervention _x__ Active listening ___ Anointing ___ Alevism ___ Bereavement ___ Communion ___ [place] exploration ___ _x__ Life review _x__ Prayer ___ Reconciliation ___ Sacrament of Sick _x__ Supportive presence ___ Wedding ___ Other (describe below) Pastoral Comments
== END 2023-07-03 15:41 | disposition home or self-care (01) | DRG 378 ==
LOC: ED 14:05 → MS3 14:47
PROVIDERS: Physician Assistant; Admitting Provider Internal Medicine; Emergency Provider Emergency Medicine
DX: K57.33 Diverticulitis of large intestine without perforation or abscess with bleeding (principal); I48.20 Chronic atrial fibrillation, unspecified; D68.32 Hemorrhagic disorder due to extrinsic circulating 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s; F32.A Depression, unspecified; E78.5 Hyperlipidemia, unspecified; T45.515A Adverse effect of 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s, initial encounter; R03.1 Nonspecific low blood-pressure reading; Z79.01 Long term (current) use of 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s; Z79.899 Other long term (current) drug therapy; Z95.0 Presence of cardiac pacemaker
CPT/HCPCS: 36415; 36416; 74177; 80053; 83605; 85014; 85018; 85025; 85610; 86850; 86900; 86901; 99284; J7030; Q9967; A4216; J0295; J0744

== ENCOUNTER → 2023-07-09 | Outpatient (CLI) | payer MEDICARE, SELFPAY ==
[2023-07-09 17:50] LABS: Absolute Lymphocyte Count 1.29 X10^3/uL (0.83-4.51); Absolute Neutrophil Count 4.5 X10^3/uL (2.0-7.7); Basophil# 0.09 X10^3/uL; Basophil% 1.4 % (0-1); Eosinophil# 0.18 X10^3/uL; Eosinophils% 2.7 % (0-5); Hematocrit 38.5 % (37-47); Hemoglobin 13.3 g/dL (12.0-15.0); Lymphocyte # 1.29 X10^3/ul (0.83-4.51); Lymphocyte % 19.5 % (19-41); Mean Corp Hgb Conc 34.5 g/dL (32-36); Mean Corpuscular Hgb 30.3 pg (27.0-32.0); Mean Corpuscular Volume 87.7 fL (81-99); Mean Platelet Vol. 9.1 fl (6.2-12.0); Monocyte# 0.52 X10^3/uL; Monocyte% 7.9 % (0-10); NRBC Flagged by Analyzer 0 % (0-5); Neutrophil # 4.51 X10^3/uL (2.7-7.7); Neutrophil % 68.2 % (47-70); Platelet Count 206 K/mm3 (150-450); Red Blood Count 4.39 M/mm3 (4.2-5.4); White Blood Count 6.6 K/mm3 (4.4-11.0)
--- OUTSIDE RECORDS SUMMARY | 2023-07-09 20:32 | XMS RPT_ITS | CCD ---
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 Name Role Phone PROVIDER, UNKNOWN Unavailable Unavailable KALA VALLECILLO Unavailable Unavailable KALA VALLECILLO Unavailable Unavailable Farida Avelar MD Primary Care Provider Sebastian Perez MD Unavailable KINA COYLE Attending Unavailable FARIDA VALLECILLO Referring Unavailable FARIDA VALLECILLO Primary Care Unavailable RUSS PLUMMER Attending Unavailable RUSS PLUMMER Admitting Unavailable FARIDA VALLECILLO MD Primary Care Unavailabl e Allergies Allergy Classification Reported Allergen(s) Allergy Type Date of Onset Reaction(s) Facility (5 sources) Sertraline Drug Allergy 10-14-2019 Other: See Comments [facility] Medications Completed/Discontinued Medications Medication Drug Class(es) Dates Sig (Normalized) Sig (Original) alendronic acid 70 mg oral tablet (5 sources) Bisphosphonate Start: 04-23-2018 take 1 tablet by mouth every week alendronate (FOSAMAX) 70 mg tablet Take 1 tablet by mouth once each week. 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; Translations: [Other postprocedural cardiac functional disturbances following cardiac surgery] Onset: 05-20-2021 05-21-2021 Chronic Conduction disorders (5 sources) Cardiac pacemaker in situ; Translations: [Presence of cardiac pacemaker] Onset: 05-20-2021 05-21-2021 Chronic Diseases of white blood cells (5 sources) Leukocytosis; Translations: [Elevated white blood cell count, unspecified] Onset: 04-18-2018 04-18-2018 Chronic Heart valve disorders (15 sources) Mitral valve stenosis; 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] Onset: 04-18-2018 07-13-2017 Chronic Immunizations and screening for infectious disease (1 source) Contact with or exposure to other viral diseases; Translations: [Close exposure to COVID-19 virus] Episodic Nutritional deficiencies (5 sources) Undernutrition; Translations: [Mild protein-calorie malnutrition] Onset: 04-21-2018 04-21-2018 Chronic Osteoporosis (2 sources) Age-related osteoporosis without current pathological fracture; Translations: [AGE-REL OSTEOPOR W/O CURR PATH FX] Onset: 04-07-2023 Chronic Other aftercare (13 sources) Long-term current use of 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; Translations: [terminal operator (current) use of 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s] Onset: 03-16-2018 04-18-2018 Episodic Other nervous system disorders (5 sources) Neuropathy; Translations: [Polyneuropathy, unspecified] Onset: 05-20-2021 05-20-2021 Chronic Residual codes; unclassified (5 sources) Obstructive sleep apnea syndrome; Translations: [Obstructive sleep apnea (adult) (pediatric)] Onset: 05-20-2021 05-20-2021 Chronic Unclassified (2 sources) New Patient; Translations: [New Patient] Onset: 06-10-2022 Past or Other Problems Problem Classification Problem Date Documented Date Episodic/Chronic Acute posthemorrhagic anemia (5 sources) Acute posthemorrhagic anemia; Translations: [Acute posthemorrhagic anemia] Onset: 04-18-2018 04-18-2018 Episodic Diabetes mellitus without complication (5 sources) Metabolic stress hyperglycemia; Translations: [Hyperglycemia, unspecified] Onset: 04-18-2018 04-18-2018 Episodic Nonmalignant breast conditions (5 sources) Apocrine metaplasia of breast; Translations: [Other benign mammary dysplasias of unspecified breast] Onset: 07-11-2015 07-11-2015 Episodic Other aftercare (5 sources) Anticoagulant effect; Translations: [FCI (current) use of 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s] Onset: 05-20-2021 05-20-2021 Episodic Other circulatory disease (5 sources) Low blood pressure; Translations: [Hypotension, unspecified] Onset: 04-18-2018 04-18-2018 Episodic Other lower respiratory disease (5 sources) Multiple nodules of lung; Translations: [Other nonspecific abnormal finding of lung field] Onset: 06-03-2018 06-03-2018 Episodic Residual codes; unclassified (5 sources) History of maze procedure for atrial fibrillation; Translations: [Other specified postprocedural states] Onset: 04-18-2018 04-18-2018 Episodic Residual codes; unclassified (5 sources) H/O cardiac surgery; Translations: [Other specified postprocedural states] Onset: 04-18-2018 04-18-2018 Episodic Unclassified (7 sources) Abnormal response to nerve stimulation, unspecified; Translations: [Prolonged QT interval] Onset: 10-28-2017 05-31-2018 Episodic Results Test Name Value Interpretation Reference Range Facil ity Vital Signs Date Time Vital Sign Value Performing Clinician Kvng kowalski 08-05-2021 10:07-0400 Body temperature 97.2 [degF] Marcelina Pathak APRN.CINDER MAN Work Phone: [facility] 08-05-2021 10:07-0400 Body weight 70.31 kg Marcelina Pathak APRN.[employer] Work Phone: [facility] 08-05-2021 10:07-0400 Diastolic blood pressure 68 mm[Hg] Marcelina Pathak APRN.[employer] Work Phone: [facility] 08-05-2021 10:07-0400 Heart rate 84 /min Marcelina Pathak APRN.[employer] Work Phone: [facility] 08-05-2021 10:07-0400 Respiratory rate 16 /min Marcelina Pathak APRN.[employer] Work Phone: [facility] 08-05-2021 10:07-0400 SaO2% (BldA) [Mass fraction] 99 % Marcelina Pathak APRN.[employer]IND[employer] MAN Work Phone: [facility] 08-05-2021 10:07-0400 Systolic blood pressure 110 mm[Hg] Marcelina Pathak APRN.[employer] Work Phone: [facility] Encounters Encounter Date Encounter Type Care Provider Facility Start: 04-06-2023 End: 04-07-2023 ambulatory RUSS PLUMMER [facility] Start: 06-10-2022 End: 06-10-2022 ambulatory KINA COYLE [facility] Start: 10-31-2021 Telephone encounter Aniya Thomson [facility] Work Phone: [facility] ([facility]) Procedures Date Procedure Procedure Detail Performing Clinician Start: 2021 PROTHROMBIN TIME/PT [facility] Provider Start: 09-25-2021 PROTHROMBIN TIME/PT [facility] Provider Start: 07-29-2021 PROTHROMBIN TIME/PT [facility] Provider Plan of Treatment Date Care Activity Detail Author Start: 05-21-2024 DIABETES SCREEN DIABETES SCREEN [facility] Start: 08-05-2021 End: 08-19-2021 Influenza virus A and B RNA and SARS-CoV-2 (COVID-19) N gene panel - Respiratory specimen by DWAYNE with probe detection [facility] Work Phone: Immunizations Immunization Date Immunization Notes Care Provider Fa cility 01-28-2021 influenza, high dose seasonal, preservative-free Marcelina Pathak APRN.[employer]INDER [employer] Work Phone: [facility] Work Phone: 07-11-2020 COVID-19 vaccine, ag e 12+ yr (PFIZER-BIONTECH - PURPLE TOP) Marcelina Pathak APRN.CINDER MAN Work Phone: [facility] 07-02-2020 COVID-19 vaccine, ag e 12+ yr (PFIZER-BIONTECH - PURPLE TOP) Marcelina Pathak APRN.CINDER MAN Work Phone: [facility] Work Phone: 06-20-2020 COVID-19 vaccine, ag e 12+ yr (PFIZER-BIONTECH - PURPLE TOP) Marcelina Pathak APRN.CINDER MAN Work Phone: [facility] 02-01-2020 influenza, injectabl e, quadrivalent, preservative free Marcelina Pathak APRN.[employer] MAN Work Phone: [facility] Work Phone: 03-28-2019 influenza, injectabl e, quadrivalent, preservative free Marcelina Lawson BOX 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 INSPECTOR.[employer] MAN Work Phone: [facility] Work Phone: 02-05-2018 influenza, high dose seasonal, preservative-free Marcelina Lawson BOX SEALING INSPECTOR.[employer] Work Phone: [facility] 02-01-2018 influenza, seasonal, injectable, preservative free Marcelina Lawson BOX SEALING INSPECTOR.[employer] MAN Work Phone: [facility] Work Phone: Payers Date Payer Category Payer Medicare [employer] MEDICARE [employer] GOLD PLUS [id number] 2019-Present [phone] [address] [address] [place] [address] O [id number] 1957 Medicare [id number] 1940 Unknown [id number] Unknown Social History Date Type Detail Facility Start: 07-06-2015 Tobacco smoking stat [facility] Never smoked tobacco [facility] Start: 07-06-2015 Tobacco use and exposure Smokeless tobacco non-user [facility] Start: 07-04-2021 End: 08-05-2021 Alcohol intake Current non-drinker of alcohol (finding) [facility] Start: 1940 Sex Assigned At Female C [facility] Start: 07-26-2021 End: 08-05-2021 Exposure to SARS-CoV-2 (event) Yes [facility] Work Phone: Medical Equipment Procedure Code Equipment Code Equipment Origin al Text Equipment Identifier Dates Valve Epic Flexf it 29mm 27mm Low Profile Porcine Pericardial 19mm Mitral - [id number] Start: 04-16-2018 Clinical Notes 04-06-2018 to 10-31-2021 Telephone Encounter - Aniya Thomson RP - 10/31/2021 10:51 AM EDTTelephone Encounter - Mellisa Nazarioos, [facility] - 10/29/2021 12:15 PM EDTTelephone Encounter - Sebastian Perez MD - 10/29/2021 11:47 AM EDT Note Date & Type Note Facility 10-31-2021 Miscellaneous Notes Referred by: Dr. Perez Indication: New onset [...] PT INR Date Value Ref Range Status 2021 2.9 Final Current warfarin dose: 1mg daily Description CONTINUE 1mg daily. Recheck INR on 11/06 with new oncology physician assistant in [place]. The patient's INR was elevated on 09/25. She had missed her multivitamin for several days that week. The vitamin contains vitamin K which would explain elevated INR. She planned to resume the same multivitamin and stated that it was already back in her pillbox. Since the cause of elevated INR was identified and INR had been stable, held warfarin x1 dose and then continued the same weekly dose. INR on 10/23 was therapeutic. Spoke with patient on 10/31 (results were faxed to Dr. Perez's office). She states that she fell on 10/05 and was in the hospital and then a pen[facility]ent[facility] facility. She was discharged home on 10/21 and has been taking warfarin 1mg daily. Since INR was therapeutic on 10/23, recommended that she continue this dose and have an INR check on 11/06 to ensure she is stable. She reports today that she has transferred care from Dr. Perez to a new oncology physician assistant in [place]. She has been to see the new oncology physician assistant once so is now established there. Instructed the patient to call the new oncology physician assistant office to see how they monitor warfarin. This Coumadin clinic can no longer manage, as the referring provider needs to be part of [facility]. The patient plans to call her oncology physician assistant office today for guidance and to set up next INR. Coumadin clinic will sign off at this time. Discussed with patient on the phone who read back instructions and verbalized understanding. Aniya Thomson RPh documented in this encounter [facility] 10-29-2021 Miscellaneous Notes [facility] coumadin clinic already manages this patient's INRs. She has her INRs checked at the [place] lab. I think they just need a new standing order for INRs. I have placed the order and faxed as requested. Mellisa Dutta RPh I signed the form and did approve VIt K but the form is for [facility], not [place] William C I found the form in [facility] will complete for you just need to know if you want him to have Vit K for INR over 9.0? Ary Ervin RN INR 2-3; I do not see any form in [facility] William C A standing order for the [place] coumadin clinic for the next year. Wasn't sure of the parameters for the INR levels? Ary Ervin RN What do I need to fill out? William C Received a call from [facility] clinic at [facility] requesting a new standing order for Coumadin clinic for the upcoming year. Requesting it be faxed to Karli at [phone]. Ary Ervin RN documented in this encounter [facility] 09-25-2021 Miscellaneous Notes Referred by: Dr. Perez Indication: New onset [...] PT INR Date Value Ref Range Status 09/25/2021 3.4 Final Current warfarin dose: 1mg daily Description HOLD warfarin today. Then CONTINUE 1mg daily. Recheck INR in 4 weeks. Patient was admitted 05/18-05/21 for afib RVR and underwent AV karin ablation and pacemaker insertion. INR was 2.6 on 05/19. She received 10mg oral vitamin K on 05/19 to reverse warfarin for procedure. Warfarin was restarted on 05/21. She received 2mg on 05/21 and INR was 1.1. INR on 05/24 was 1.5 which was an appropriate increase. Continued current dose. INR has been therapeutic since with last INR being therapeutic on 08/28 INR is now elevated. The patient missed her multivitamin for several days in the last week. The vitamin does contain vitamin K. This would explain elevated INR. The patient is going to resume the same multivitamin and states that it is already back in her pillbox. Since the cause of elevated INR is identified and INR has been stable, will hold warfarin today and then continue the same weekly dose as above. Discussed with patient on the phone who read back instructions and verbalized understanding. Aniya Thomson RPh Pt reports of 3.4 on 09/25/2021. documented in this encounter [facility] 08-05-2021 Influenza virus A and B RNA and SARS-CoV-2 (COVID-19) N gene panel DWAYNE+probe (Resp) COVID 19 RESULT: SARS-CoV-2 (Agent of COVID-19) Not Detected by RT-PCR or equivalent method. This test was developed and its performance characteristics determined by [facility]'s [facility]. This test has been authorized by FDA under an Emergency Use Authorization (EUA). This test has been validated in accordance with the FDA's Guidance Document Policy for Diagnostics Testing in Laboratories Certified to Perform High Complexity Testing under CLIA prior to Emergency use Authorization for Coronavirus Disease 2019 during the Public Health Emergency issued on July 02, 2019. Test performed by [facility], [facility], [address] [place] [address]. INFLUENZA A PCR: Negative for Influenza A by RT-PCR INFLUENZA B PCR: Negative for Influenza B by RT-PCR [facility] documented as of this encounter (statuses as of 08/05/2021) [facility]12-04-2018 History of Past illness Narrative* Problem Noted Date Resolved Date Rheumatic mitral stenosis 04/06/20182017 Overview: Added automatically from request for surgery [id number] Mitral regurgitation 04/06/2018 04/18/2018 Overview: Added automatically from request for surgery [id number] Fibrocystic breast changes 07/11/201507/10 documented as of this encounter (statuses as of 08/07/2021) [facility]12[facility] History of Past illness Narrative* Problem Noted Date Resolved Date Rheumatic mitral stenosis 04/06/20182017 Overview: Added automatically from request for surgery [id number] Mitral regurgitation 04/06/2018 04/18/2018 Overview: Added automatically from request for surgery [id number] Fibrocystic breast changes 07/11/201507/10 documented as of this encounter (statuses as of 09/25/2021) [facility] History of Past illness Narrative* Problem Noted Date Resolved Date Rheumatic mitral stenosis 04/06/20182017 Overview: Added automatically from request for surgery [id number] Mitral regurgitation 04/06/2018 04/18/2018 Overview: Added automatically from request for surgery [id number] Fibrocystic breast changes 07/11/201507/10 documented as of this encounter (statuses as of 10/29/2021) [facility] History of Past illness Narrative* Problem Noted Date Resolved Date Rheumatic mitral stenosis 04/06/20182017 Overview: Added automatically from request for surgery [id number] Mitral regurgitation 04/06/2018 04/18/2018 Overview: Added automatically from request for surgery [id number] Fibrocystic breast changes 07/11/201507/10 documented as of this encounter (statuses as of 10/31/2021) [facility] Diagnosis Close exposure to COVID-19 virus- Primary documented in this encounter [facility] Diagnosis FCI current use of 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 Long-term (current) use of 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s Paroxysmal atrial fibrillation (HCC) Atrial fibrillation documented in this encounter [facility] Diagnosis 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 Long-term (current) use of 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s Paroxysmal atrial fibrillation (HCC) Atrial fibrillation documented in this encounter [facility] Diagnosis Atrial fibrillation, chronic (HCC)- Primary Atrial fibrillation documented [facility] this encounter [facility] Diagnosis FCI current use of 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 Long-term (current) use of 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s Paroxysmal atrial fibrillation (HCC) Atrial fibrillation documented in this encounter [facility] Summary Purpose Family History No Family History Records FoundNo Family History Records FoundNo Family History Records FoundNo Family History Records FoundNo Family History Records FoundNo Family History Records Found Advance Directives No Advanced Directives Records FoundDocuments on File Type Date Recorded 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 Advance Directive(s) 05/23/2021 3:18 PM Advance Directive(s) 06/02/2018 4:21 PM Documents on File Type Date Recorded 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 [facility] [address] [place] [address] Referral ID Status Reason Start Date Expiration Date Visits Requested Visits Authorized [id number] Ref Not Required PCP Requested Referral 10/29/2021 01/27/2022 1 1 Additional Source Comments INFORMATION SOURCE (unrecogn ized section and content) DATE CREATED AUTHOR AUTHOR'S ORGANIZ ATION 09/16/2020 [facility] DATE CREATED AUTHOR AUTHOR'S ORGANIZ ATION 08/06/2021 [facility] DATE CREATED AUTHOR AUTHOR'S ORGANIZ ATION 11/01/2021 [facility] DATE CREATED AUTHOR AUTHOR'S ORGANIZ ATION 06/11/2022 [facility] DATE CREATED AUTHOR AUTHOR'S ORGANIZ ATION 05/07/2023 [facility] Source Comments (unrecognize d section and content) In the event this informatio n is protected by the Federal Confidentiality of Alcohol and Drug Abuse Patient Records regulations: The Federal rules restrict any use of the information to criminally investigate or prosecute any alcohol or drug abuse patient.[facility] the event this information is protected by the Federal Confidentiality of Alcohol and Drug Abuse Patient Records regulations: The Federal rules restrict any use of the information to criminally investigate or prosecute any alcohol or drug abuse patient.[facility] the event this information is protected by the Federal Confidentiality of Alcohol and Drug Abuse Patient Records regulations: The Federal rules restrict any use of the information to criminally investigate or prosecute any alcohol or drug abuse patient.[facility] the event this information is protected by the Federal Confidentiality of Alcohol and Drug Abuse Patient Records regulations: The Federal rules restrict any use of the information to criminally investigate or prosecute any alcohol or drug abuse patient.[facility] the event this information is protected by the Federal Confidentiality of Alcohol and Drug Abuse Patient Records regulations: The Federal rules restrict any use of the information to criminally investigate or prosecute any alcohol or drug abuse patient.[facility] Reason for Visit (unrecogniz ed section and content) Reason Comments Coumadin/INR Reason Comments Results inr Reason Comments Orders Care Teams (unrecognized sec tion and content) Stereoplotter Operator Relationship Specialty Start Date End Date Farida Avelar MD [address] [place] [address] PCP - General Internal Medicine 07/11/15 Sebastian Perez MD [address] [place] [address] [place] [id number] Cardiology 04/30/18 Stereoplotter Operator Relationship Specialty Start Date End Date Farida Avelar MD [address] [place] [address] PCP - General Internal Medicine 07/11/15 Sebastian Perez MD [address] [place] [address] [place] [id number] Cardiology 04/30/18 Stereoplotter Operator Relationship Specialty Start Date End Date Farida Avelar MD [address] [place] [address] PCP - General Internal Medicine 07/11/15 Sebastian Perez MD [address] [place] [address] [place] [phone] (Fax) Cardiology 04/30/18 Stereoplotter Operator Relationship Specialty Start Date End Date Farida Avelar MD [address] [place] [address] PCP - General Internal Medicine 07/11/15 Sebastian Perez MD [address] [place] [address] [place] [address] Cardiology 04/30/18 FOR RECORDS PERTAINING TO PATIENTS WHO ARE OR HAVE BEEN ENROLLED IN A CHEMICAL DEPENDENCY/SUBSTANCEABUSE PROGRAM, SOME INFORMATION MAY BE OMITTED. This clinical summary was aggregated from multiple sources. Caution should be exercised in using it in the provision of clinical care. This summary normalizes information from multiple sources, and as a consequence, information in this document may materially change the coding, format and clinical context of patient data. In addition, data may be omitted in some cases. CLINICAL DECISIONS SHOULD BE BASED ON THE PRIMARY CLINICAL RECORDS. [facility] [employer] [facility]. provides no warranty or guarantee of the accuracy or completeness of information in this document.
== END | disposition home or self-care (01) ==
LOC: MFPLAB 16:32
PROVIDERS: Visit Provider Family Medicine
DX: K92.2 Gastrointestinal hemorrhage, unspecified (principal)
CPT/HCPCS: 36415; 85025

== ENCOUNTER 2023-07-27 12:58 | Outpatient (RCR) | payer MEDICARE, SELFPAY ==
[2023-07-03 00:08] VITALS: BMI 26.7
[2023-07-13 11:53] LABS: INR Fingerstick 2.2
[2023-07-22 08:28] LABS: INR Fingerstick 1.8; Prothrombin Time Fingerstick 19.4 SEC (11.7-14.9)
[2023-07-27 13:05] LABS: INR Fingerstick 2.2; Prothrombin Time Fingerstick 22.8 SEC (11.7-14.9)
== END 2023-08-02 01:13 | disposition home or self-care (01) ==
LOC: LAB 12:58
PROVIDERS: PCP Psychiatry & Neurology Psychiatry; Referring Provider Internal Medicine Cardiovascular Disease; Visit Provider Internal Medicine Cardiovascular Disease
DX: I48.91 Unspecified atrial fibrillation (principal); Z79.01 Long term (current) use of 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s
CPT/HCPCS: 36416; 85610

== ENCOUNTER 2023-08-27 14:38 | Outpatient (RCR) | payer MEDICARE, SELFPAY ==
[2023-08-02 01:13] VITALS: BMI 26.7
[2023-08-20 13:51] LABS: INR Fingerstick 1.5; Prothrombin Time Fingerstick 16.3 SEC (11.7-14.9)
[2023-08-27 15:03] LABS: INR Fingerstick 2.2; Prothrombin Time Fingerstick 22.7 SEC (11.7-14.9)
== END 2023-09-01 23:48 | disposition home or self-care (01) ==
LOC: LAB 14:38
PROVIDERS: PCP Family Medicine; Referring Provider Internal Medicine Cardiovascular Disease; Visit Provider Internal Medicine Cardiovascular Disease
DX: I48.91 Unspecified atrial fibrillation (principal); Z79.01 Long term (current) use of 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s
CPT/HCPCS: 36416; 85610

== ENCOUNTER 2023-09-10 08:02 | Day surgery (SDC) | payer MEDICARE, SELFPAY ==
[2023-09-10 08:13] LABS: INR Fingerstick 1.6; Prothrombin Time Fingerstick 17.1 SEC (11.7-14.9)
[2023-09-10] MEDS: Lactated Ringers 1,000 ML 15 ML IV (08:50)
[2023-09-10 08:51] VITALS: BP 122/68; PULSE 66; RESP 16; TEMP 36.5; O2SAT 97; BMI 25.9
[2023-09-10 09:00] LABS: International Normalized Ratio 1.6; Prothrombin Time (Protime)PT. 19.1 SECONDS (11.7-14.9)
--- NOTE | 2023-09-10 09:16 | PCM.HP.BLA ---
History and Physical Date of Admission: 09/10/23 Date of Service: 08/05/23 MR#: [id number] Acct: [id number] Name: GLORIA MATHEW Rep #: [id number] : 1940 Provider: Dr. Avtar Desir MD Age/Sex: 82/F Location: [facility] Status: Signed with Addenda ADDENDUM by Dr. Avtar Desir MD on 08/05/23 at 1601 Intake Chief Complaint: blood in stool Allergies sertraline [From Zoloft] Adverse Reaction (Verified 08/05/23 09:23) Other Medications cholecalciferol (vitamin D3) 25 mcg (1,000 unit) tablet (Vitamin D3) 1,000 unit PO DAILY REPLACEMENT 05/21/18 [History Confirmed 08/05/23] cyanocobalamin (vitamin B-12) 1,000 mcg sublingual tablet 1,000 mcg sublingual DAILY replacement 05/21/18 [History Confirmed 08/05/23] citalopram 10 mg tablet 10 mg PO QHS depression 12/31/20 [History Confirmed 08/05/23] simvastatin 10 mg tablet 10 mg PO QHS cholesterol 02/23/21 [History Confirmed 08/05/23] biotin 1,000 mcg chewable tablet 1,000 mcg PO DAILY SUPPLEMENT 05/06/21 [History Confirmed 08/05/23] ipratropium bromide 42 mcg (0.06 %) nasal spray 2 spray intranasal BID NASAL 05/06/21 [History Confirmed 08/05/23] pramipexole 0.5 mg tablet 0.75 mg PO QHS RLS 05/06/21 [History Confirmed 08/05/23] fexofenadine 180 mg tablet (Allergy Relief (fexofenadine)) 180 mg PO DAILY allergy 07/09/21 [History Confirmed 08/05/23] acetaminophen 500 mg tablet 1,000 mg (2 x 500 mg) PO Q6H PRN PRN Pain Score 1-3 #0 tabs 10/16/21 [Rx Confirmed 08/05/23] warfarin 1 mg tablet See Rx Instructions .Route .COMPLEX #90 tabs 03/30/23 [Rx Confirmed 08/05/23] ascorbic acid (vitamin C) 500 mg tablet 500 mg PO DAILY supplement 04/06/23 [History Confirmed 08/05/23] calcium 600 mg-D3 800 unit-mag11 50 vo-crxp-cohuje-stephanie-s.borat tablet (Caltrate 600-D Plus Minerals) 1 tab PO DAILY REPLACEMENT 04/06/23 [History Confirmed 08/05/23] gabapentin 300 mg capsule 300 mg PO DAILY 07/02/23 [History Confirmed 08/05/23] gabapentin 300 mg capsule 600 mg PO QHS 07/02/23 [History Confirmed 08/05/23] Assessment and Plan Assessment and Plan (1) Acute diverticulitis: Status: Acute Comment: Patient 82-year-old female who follows up after a reported bout of acute diverticulitis at occasioned a brief inpatient stay the end of June. She has recovered after application of conservative measures and denies any persistent symptoms. Her abdominal exam, further, is benign. I did review patient's CT imaging from 07/02/2023 and her inflammation of the colon is mild at best. Still, I agree with proceeding with a diagnostic colonoscopy since it has been 10 years since her last investigative endoscopy which noted the presence of colonic polyps, mild colitis, and severe pancolonic diverticulosis. Patient's daughter, who accompanies her shares that there is significant longevity within her family tree and a number of family members that have lived into their late 90s/early 100s. Until this colonoscopy I have advised increasing fiber and water intake as a means of hopefully decreasing patient's diarrhea and constipation concerns. She will require a hold of her warfarin ahead of this procedure and we will seek approval from the heart group. (2) Bright red blood per rectum: Status: Acute Comment: Patient with recent complaints of hematochezia. Based on her history it is unclear to me whether this represents likely bleeding from diverticular disease or from hemorrhoids (as patient admits that she has had some itching in bleeding when scratching her anus) thus I have recommended proceeding for diagnostic colonoscopy as above, but suggested we consented her for possible endoscopic banding at the same time. After the procedure was described along with its risks she states that she is in agreement. As above, we will need to make sure patient's warfarin is held in anticipation of this possibility as well. Orders: Orders Colonoscopy 09/10/23 Plan Details Additional Comments: Following patient's clinical visit we obtained records from a interval colonoscopy in 2018 where random colon biopsies were performed and the final pathology for these biopsies showed colonic mucosa with no significant pathologic changes. Notably, the endoscopist did not find any evidence of polyps. Unfortunately, the pathology from the biopsies obtained during patient's 2014 exam are no longer available. 08/05/23 1601 <Electronically signed by Avtar Desir MD> Date Avtar Desir MD cc: Dr. Samantha Anglin MD ~* Signed Intake Vital Signs 07/02/2414:06 08/04/2408:22 Height 5 ft 2 in 5 ft 2 in Weight: 146 lb BMI 26.6 BP 122/78 H Blood Pressure Location Rt brachial Position Sitting Respiration 17 Pulse 67 Pulse Source Monitor Pulse Oximetry (%) 93 Oxygen Delivery Method room air Intake Visit Reasons: BLOOD IN STOOL Chief Complaint: blood in stool Is patient in pain?: No Allergies sertraline [From Zoloft] Adverse Reaction (Verified 08/05/23 09:23) Other Medications cholecalciferol (vitamin D3) 25 mcg (1,000 unit) tablet (Vitamin D3) 1,000 unit PO DAILY REPLACEMENT 05/21/18 [History Confirmed 08/05/23] cyanocobalamin (vitamin B-12) 1,000 mcg sublingual tablet 1,000 mcg sublingual DAILY replacement 05/21/18 [History Confirmed 08/05/23] citalopram 10 mg tablet 10 mg PO QHS depression 12/31/20 [History Confirmed 08/05/23] simvastatin 10 mg tablet 10 mg PO QHS cholesterol 02/23/21 [History Confirmed 08/05/23] biotin 1,000 mcg chewable tablet 1,000 mcg PO DAILY SUPPLEMENT 05/06/21 [History Confirmed 08/05/23] ipratropium bromide 42 mcg (0.06 %) nasal spray 2 spray intranasal BID NASAL 05/06/21 [History Confirmed 08/05/23] pramipexole 0.5 mg tablet 0.75 mg PO QHS RLS 05/06/21 [History Confirmed 08/05/23] fexofenadine 180 mg tablet (Allergy Relief (fexofenadine)) 180 mg PO DAILY allergy 07/09/21 [History Confirmed 08/05/23] acetaminophen 500 mg tablet 1,000 mg (2 x 500 mg) PO Q6H PRN PRN Pain Score 1-3 #0 tabs 10/16/21 [Rx Confirmed 08/05/23] warfarin 1 mg tablet See Rx Instructions .Route .COMPLEX #90 tabs 03/30/23 [Rx Confirmed 08/05/23] ascorbic acid (vitamin C) 500 mg tablet 500 mg PO DAILY supplement 04/06/23 [History Confirmed 08/05/23] calcium 600 mg-D3 800 unit-mag11 50 mr-ahcz-unhmdb-stephanie-s.borat tablet (Caltrate 600-D Plus Minerals) 1 tab PO DAILY REPLACEMENT 04/06/23 [History Confirmed 08/05/23] gabapentin 300 mg capsule 300 mg PO DAILY 07/02/23 [History Confirmed 08/05/23] gabapentin 300 mg capsule 600 mg PO QHS 07/02/23 [History Confirmed 08/05/23] PFSH Medical History Acute non-ST elevation myocardial infarction (NSTEMI) Allergic rhinitis Anticoagulated on warfarin Atrial fibrillation Atrial fibrillation Atrial fibrillation with RVR 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 CPAP (continuous positive airway pressure) dependence Depression Depression Endometrial cancer GERD (gastroesophageal reflux disease) GI bleed Hernia 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 Mitral and aortic valve disease Neuropathic pain Neuropathy Non-smoker Osteopenia Osteoporosis Pacemaker 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, left Presence of permanent cardiac pacemaker (~05/20/21) Restless leg syndrome Sleep apnea Vitamin B12 deficiency Vitamin D deficiency Surgical History History of cholecystectomy History of hysterectomy for cancer History of maze procedure History of mitral valve replacement Hx of atrioventricular node ablation S/P ablation operation for arrhythmia S/P left atrial appendage ligation S/P left atrial appendage ligation S/P Maze operation for atrial fibrillation S/P MVR (mitral valve replacement) Family History Mother Heart disease CAD (coronary artery disease) Hypertension Breast cancerFather Heart disease Bradycardia Bradycardia requiring pacemaker placement. Colon cancer Social History household members: none Smoking Status: Never smoker alcohol intake: current alcohol intake frequency: holidays/special occasions only substance use type: does not use HPI HPI HPI: Patient is a 82-year-old female who presents for need to schedule diagnostic colonoscopy secondary to recent admission for suspected diverticulitis and acute lower GI bleed. Specifically, patient follows up from an inpatient admission that included 07/02/2023. She is referred from Dr. Anglin. She notes that her symptoms of vomiting and bleeding remitted spontaneously through conservative measures. She shares she is uncertain about any abdominal pain complaints, but according to her PCP she did have some abdominal pain that resolved with outpatient Levaquin therapy for diverticulitis. She also shares she is unsure whether this was connected to a bout of what she terms food poisoning couple weeks prior to admission where she experienced uncontrollable diarrhea. She confirms that her bowel movements now are nonbloody and occur 1-3 times per day. She denies any straining. Total toilet time is less than 5 minutes. She is not using any fiber supplements but her diet is mild to moderately high in fiber including foods such as fruits and dry cereals. She also shares that she is making intentional effort at consuming more water. She denies constipation but has had some intermittent diarrhea. Patient has had prior colonoscopy. She brings a transcript of the results from 2013 where she underwent a polypectomy and biopsy, but is unable to recall results of procedures even further remotely. Patient has a family history of colon cancer in her father (who is diagnosed at the age of 90) and her aunt (who also was diagnosed late in life). The patient's weight is stable. The patient is prescribed 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s/blood thinners. Specifically she is prescribed warfarin for history of A-fib and mitral valve replacement. Mrs. Mathew also has a history of uterine cancer that was treated with radiation therapy in 1990. She shares that she has had some off target effects of the radiation with respect to her GI habits. Relevant prior abdominal surgical history includes: Laparoscopic cholecystectomy and umbilical hernia repair. Patient does not have a significant history of GERD/heartburn. ROS General General: No weight change, appetite, fatigue, colon cancer, breast cancer or weakness HEENT HEENT: No difficulty swallowing, eye injury, eye surgery, swollen glands or hoarseness Endo Endocrine: No thyroid disease, diabetes mellitus, thyroid cancer, Hair loss, heat intolerance or cold intolerance Skin Skin: No rash or changing moles Musc Musculoskeletal: Yes arthritis; No back problems, rheumatoid arthritis, gout or joint pain Cardio Cardiovascular: Yes pacemaker and heart disease; No murmur, atrial fibrillation, high blood pressure, heart attack, heart stent, palpitations, shortness of breat with exertion or chest pain Psych Psychiatric: No depression, anxiety or hearing voices Resp Respiratory: No shortness of breath, Yes sleep apnea, No cough, No COPD, No asthma, No emphysema and No wheezing Gastro Gastrointestinal: Yes abdominal pain, No nausea or vomiting, Yes diarrhea, No constipation, No blood in stool, No acid reflux, Yes hemorrhoids, No ulcers, No gallbladder problem and No black,tarry stools [place] Hematologic: Yes blood thinners, No blood disorders, No bleeding, No anemia and No blood clots Neuro Neurologic: No system reviewed and no additional complaints, except as documented, No as per HPI, No abnormal gait, No abnormal hearing, No abnormal movements, No abnormal speech, No behavioral changes, No burning sensations, No confusion, No convulsions, No disequilibrium, No dizziness, No localized weakness, No frequent falls, No headache(s), No lack of coordination, No loss of vision, No memory loss, Yes numbness, No other visual disturbances, No radicular pain, No restless legs, No sensory deficit, No syncope, Yes tingling, No tremor(s), No weakness and No other Exam Const General: cooperative and comfortable Orientation: alert, awake and oriented x3 Resp Effort & Inspection: normal respiratory effort GI Other: Nondistended, well-healed laparotomy incision from prior hysterectomy, well-healed port site incisions from prior cholecystectomy, no visible herniation, soft, nontender to palpation x 4 quadrants Assessment and Plan Assessment and Plan (1) Acute diverticulitis: Status: Acute Comment: Patient 82-year-old female who follows up after a reported bout of acute diverticulitis at occasioned a brief inpatient stay the end of June. She has recovered after application of conservative measures and denies any persistent symptoms. Her abdominal exam, further, is benign. I did review patient's CT imaging from 07/02/2023 and her inflammation of the colon is mild at best. Still, I agree with proceeding with a diagnostic colonoscopy since it has been 10 years since her last investigative endoscopy which noted the presence of colonic polyps, mild colitis, and severe pancolonic diverticulosis. Patient's daughter, who accompanies her shares that there is significant longevity within her family tree and a number of family members that have lived into their late 90s/early 100s. Until this colonoscopy I have advised increasing fiber and water intake as a means of hopefully decreasing patient's diarrhea and constipation concerns. She will require a hold of her warfarin ahead of this procedure and we will seek approval from the heart group. Plan: Plan will be to complete colonoscopy on first mutually agreeable date under local MAC. Pre-procedure prep discussed and paper instructions provided. Patient is also made aware that she will need to have a lifter driver with her the day of the procedure. (2) Bright red blood per rectum: Status: Acute Comment: Patient with recent complaints of hematochezia. Based on her history it is unclear to me whether this represents likely bleeding from diverticular disease or from hemorrhoids (as patient admits that she has had some itching in bleeding when scratching her anus) thus I have recommended proceeding for diagnostic colonoscopy as above, but suggested we consented her for possible endoscopic banding at the same time. After the procedure was described along with its risks she states that she is in agreement. As above, we will need to make sure patient's warfarin is held in anticipation of this possibility as well. Plan: Consent for possible hemorrhoid banding at the time of diagnostic colonoscopy I have examined the patient and the H&P has been reviewed. There are no clinical changes since date of exam. Patient confirms that she has not had any further abdominal discomfort or bleeding. She confirms that she completed her prep successfully and her output is now clear. She has held her Coumadin for today's procedure and her INR is 1.6 today. Given that this is mildly elevated I shared we would do judicious biopsying and only band her hemorrhoids if appearing clinically significant. I also suggested that she wait 48 hours before resuming her Coumadin if either of these 2 things are done to mitigate her risk for postprocedural bleeding. She expressed understanding and will now proceed to the endoscopy suite for planned procedure.
--- NOTE | 2023-09-10 09:30 | COLBX_PTH ---
PATIENT: GLORIA MATHEW LOC: EN U#:[id number] AGE/SX: 82/F ROOM: RE09/10/[address]: Dr. Avtar Desir MD : 1940 BED: DIS: 09/10/2023 SPEC #: [id number] RECD: 09/10/23 14:58 STATUS: ALLISON NAVARRO #: [id number] JANUARY: 09/10/23 09:[address]: Avtar Desir DEPT: SURGICAL PATHOLOGY RECD BY: Mingo Langley ENTERED: 09/11/23 07:12 SP TYPE: COLON BX OTHR DR: Samantha Anglin MD Tissues: Rectum, NOS Procedures: Surgery Specimen Level IV HEADER OPERATION: Colonoscopy, polypectomy PRE-OP DIAGNOSIS: Acute diverticulitis, bright red blood per rectum TISSUE SUBMITTED: Rectum polyp MICROSCOPIC DIAGNOSIS Rectal polyp, biopsy: Fragments of tubular adenoma. AM/mr 09/14/2023 MICROSCOPIC DESCRIPTION Slides are reviewed. GROSS DESCRIPTION Received in fixative is one container labeled with the patient's name and designated Rectal polyp. The specimen consists of multiple irregular fragments of mendoza-pink soft tissue that in aggregate measure 2.0 x 0.5 x 0.1 cm. The specimen is totally submitted in one cassette. TRISTEN/ 09/11/2023 TC:5 CPT:10496
[2023-09-10] MEDS: 0.9% Saline Lock 10 ML Syringe IV (10:10)
[2023-09-10 10:25] VITALS: BP 114/62; BP 122/68; PULSE 60; RESP 18; TEMP 36.2; O2SAT 98
--- NOTE | 2023-09-10 10:28 | OP.COLON_ITS ---
Patient Name: Laxmi Braxton Procedure Date: 09/10/2023 9:09 AM Date of : 1940 Age: 82 Procedure: Colonoscopy Indications: Rectal bleeding, Follow-up of diverticulitis Providers: Avtar Desir MD Referring MD: Samantha Anglin Md Medicines: See the Anesthesia note for documentation of the administered medications Patient Profile: Last Colonoscopy: 10 years ago. Complications: No immediate complications. Estimated blood loss: Minimal. Procedure: Pre-Anesthesia Assessment: - The heart rate, respiratory rate, oxygen saturations, blood pressure, adequacy of pulmonary ventilation, and response to care were monitored throughout the procedure. After I obtained informed consent, the scope was passed under direct vision. Throughout the procedure, the patient's blood pressure, pulse, and oxygen saturations were monitored continuously. The colonoscope was introduced through the anus and advanced to the cecum, identified by appendiceal orifice and ileocecal valve. The colonoscopy was somewhat difficult due to abnormal anatomy. Successful completion of the procedure was aided by using scope torsion. The patient tolerated the procedure fairly well. The quality of the bowel preparation was adequate to identify polyps. Scope In: 9:22:03 AM Scope Withdrawal Time 0 hours 43 minutes 51 seconds Scope Out: 10:18:18 AM Total Procedure Duration Time 0 hours 56 minutes 15 seconds Findings: The perianal and digital rectal examinations were normal. Many small and large-mouthed diverticula were found in the entire colon. There was no evidence of diverticular bleeding. No biopsies or other specimens were collected for this exam. A 10 mm polyp was found in the proximal rectum. The polyp was semi-sessile. The polyp was removed with a saline injection-lift technique using a hot snare. The polyp was removed with a piecemeal technique using a hot snare. The polyp was removed with a piecemeal technique using a cold snare. Resection and retrieval were complete. Estimated blood loss was minimal. Anal papilla(e) were hypertrophied. No biopsies or other specimens were collected for this exam. Impression: - Severe diverticulosis in the entire examined colon. There was no evidence of diverticular bleeding. No specimens collected. - One 10 mm polyp in the proximal rectum, removed piecemeal using a cold snare, removed using injection-lift and a hot snare and removed piecemeal using a hot snare. Resected and retrieved. - Anal papilla(e) were hypertrophied. No specimens collected. Recommendation: - Discharge patient to home (via wheelchair). - Resume previous diet today. - Resume Coumadin (warfarin) at prior dose in 2 days. Refer to managing physician for further adjustment of therapy. - Await pathology results. - Repeat colonoscopy date to be determined after pending pathology results are reviewed for surveillance based on pathology results. - Telephone my office for pathology results in 1 week. Procedure Code(s): --- Professional --- 79080, Colonoscopy, flexible; with removal of tumor(s), polyp(s), or other lesion(s) by snare technique 29573, Colonoscopy, flexible; with directed submucosal injection(s), any substance Diagnosis Code(s): --- Professional --- D12.8, Benign neoplasm of rectum K62.89, Other specified diseases of anus and rectum K62.5, Hemorrhage of anus and rectum K57.32, Diverticulitis of large intestine without perforation or abscess without bleeding K57.30, Diverticulosis of large intestine without perforation or abscess without bleeding CPT copyright 2021 [employer]. All rights reserved. The codes documented in this report are preliminary and upon assistant women's basketball coach review may be revised to meet current compliance requirements. Avtar Desir MD 09/10/2023 10:28:13 AM This report has been signed electronically. Number of Addenda: 0 Note Initiated On: 09/10/2023 9:09 AM
--- NOTE | 2023-09-10 10:29 | OP.CCLET_ITS ---
09/10/2023 Samantha Anglin Md Re : Colonoscopy procedure for Laxmi Braxton Dear Derrek This procedure was performed on September. My impressions and recommendations are as follows: Impressions : - Severe diverticulosis in the entire examined colon. There was no evidence of diverticular bleeding. No specimens collected. - One 10 mm polyp in the proximal rectum, removed piecemeal using a cold snare, removed using injection-lift and a hot snare and removed piecemeal using a hot snare. Resected and retrieved. - Anal papilla(e) were hypertrophied. No specimens collected. Recommendations : - Discharge patient to home (via wheelchair). - Resume previous diet today. - Resume Coumadin (warfarin) at prior dose in 2 days. Refer to managing physician for further adjustment of therapy. - Await pathology results. - Repeat colonoscopy date to be determined after pending pathology results are reviewed for surveillance based on pathology results. - Telephone my office for pathology results in 1 week. My findings are described in the full procedure note, which is enclosed. If I can be of further assistance, please feel free to contact me at Doctor phone number(s): , Work: . Sincerely, Avtar Desir MD 09/10/2023 10:28:13 AM This report has been signed electronically.
[2023-09-10 10:30] VITALS: BP 113/63; BP 122/68; PULSE 60; RESP 16; O2SAT 98
[2023-09-10 10:35] VITALS: BP 117/65; BP 122/68; PULSE 62; RESP 16; TEMP 36.1; O2SAT 98
[2023-09-10 10:54] VITALS: BP 122/68
== END 2023-09-10 11:23 | disposition home or self-care (01) ==
LOC: EN 08:04 → AC 08:05
PROVIDERS: PCP Family Medicine; Referring Provider Family Medicine; Visit Provider Surgery
PROC: 0DJD8ZZ Inspection of Lower Intestinal Tract, Via Natural or Artificial Opening Endoscopic (ICD-10-PCS; CPT 45378; principal; 2023-09-10 09:25)
DX: D12.8 Benign neoplasm of rectum (principal); I48.91 Unspecified atrial fibrillation; K62.5 Hemorrhage of anus and rectum; Z80.0 Family history of malignant neoplasm of digestive organs; E78.5 Hyperlipidemia, unspecified; Z79.01 Long term (current) use of 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s; Z95.0 Presence of cardiac pacemaker; K21.9 Gastro-esophageal reflux disease without esophagitis; Z90.49 Acquired absence of other specified parts of digestive tract; Z87.891 Personal history of nicotine dependence
CPT/HCPCS: 45385; 45381; 36416; 85610; 88305; J7120; A4216; J1610; J2405

== ENCOUNTER 2023-10-02 13:33 | Outpatient (RCR) | payer MEDICARE, SELFPAY ==
[2023-09-01 23:48] VITALS: BMI 26.7
[2023-09-22 10:34] LABS: INR Fingerstick 1.4; Prothrombin Time Fingerstick 15.4 SEC (11.7-14.9)
[2023-10-02 14:08] LABS: INR Fingerstick 3.1
== END 2023-10-02 18:00 | disposition home or self-care (01) ==
LOC: LAB 13:33
PROVIDERS: PCP Family Medicine; Referring Provider Internal Medicine Cardiovascular Disease; Visit Provider Internal Medicine Cardiovascular Disease
DX: Z79.01 Long term (current) use of 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s; I48.0 Paroxysmal atrial fibrillation
CPT/HCPCS: 36415; 36416; 85610

== ENCOUNTER 2023-10-16 09:41 | Outpatient (RCR) | payer MEDICARE, SELFPAY ==
[2023-10-05 09:43] VITALS: BMI 26.7
[2023-10-19 15:27] LABS: INR Fingerstick 1.9; Prothrombin Time Fingerstick 20.5 SEC (11.7-14.9)
== END 2023-10-16 18:00 | disposition home or self-care (01) ==
LOC: LAB 09:41
PROVIDERS: PCP Family Medicine; Referring Provider Internal Medicine Cardiovascular Disease; Visit Provider Internal Medicine Cardiovascular Disease
DX: I48.91 Unspecified atrial fibrillation (principal); Z79.01 Long term (current) use of 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s
CPT/HCPCS: 36416; 85610

== ENCOUNTER 2023-10-28 16:41 | Emergency (ER) | payer MEDICARE, SELFPAY ==
[2023-10-28 16:42] VITALS: BP 125/58; PULSE 63; RESP 18; TEMP 36.4; O2SAT 95
--- NOTE | 2023-10-28 17:21 | RAD_ITS ---
STUDY: X-RAY - PELVIS AND LEFT HIP REASON FOR EXAM: Female, 83 years old. injury TECHNIQUE: 3 views of the pelvis and hip. COMPARISON: October 05, 2021 FINDINGS: There is a non-specific bowel gas pattern. Normal visualized soft tissue structures. Normal bilateral iliac wings, sacroiliac joints and visualized sacrum. Normal bilateral superior and inferior pubic rami. Normal pubic symphysis. Normal bilateral ischial tuberosities. Normal visualized femoral head. Normal acetabulum. Normal hip joint. No significant change since prior exam RAD/HIP, UNI W/ Pelvis 2-3 Views IMPRESSION: No evidence for acute hip or pelvic fracture Electronically Signed: Lincoln Hill MD at 18:05 EDT ,
--- NOTE | 2023-10-28 17:22 | ED.VIS.LOWEX ---
HPI History of Present Illness Chief Complaint: Lower Extremity Injury Informant: patient Narrative Narrative: 83-year-old female presenting to the emergency room with left hip pain. Patient states that she was on a table when she stepped and fell striking her left hip against some furniture. She notes the cut on the lateral aspect of the hip and pain with movement. She was able to ambulate into the emergency department. She is on Coumadin. Patient denies any other injuries. She specifically denies injuring her head or neck. [facility] Medical History Loss of hearing Wears hearing aid Wears glasses Cancer High cholesterol Restless legs History of IBS Diverticulosis History of diverticulitis History of echocardiogram History of pacemaker Cardiology follow-up encounter Osteopenia GI bleed Non-smoker CPAP (continuous positive airway pressure) dependence Pacemaker 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, left prison current use of 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 Atrial fibrillation Neuropathic pain Restless leg syndrome Allergic rhinitis Depression Vitamin B12 deficiency Hyperlipidemia Vitamin D deficiency Osteoporosis 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 Presence of permanent cardiac pacemaker (~05/20/21) Depression GERD (gastroesophageal reflux disease) Sleep apnea Anticoagulated on warfarin Acute non-ST elevation myocardial infarction (NSTEMI) Hernia Endometrial cancer Neuropathy Mitral and aortic valve disease Atrial fibrillation Atrial fibrillation with RVR Home Medications ?Medication ?Instructions ?Recorded ?Last Taken ?Type cholecalciferol (vitamin D3) 25 1,000 unit PO DAILY REPLACEMENT 05/21/18 10/05/21 09:00 History mcg (1,000 unit) tablet (Vitamin D3) cyanocobalamin (vitamin B-12) 1,000 mcg sublingual DAILY 05/21/18 10/05/21 09:00 History 1,000 mcg sublingual tablet replacement citalopram 10 mg tablet 10 mg PO QHS depression 12/31/20 09/08/23 History simvastatin 10 mg tablet 10 mg PO QHS cholesterol 02/23/21 10/04/21 21:00 History biotin 1,000 mcg chewable tablet 1,000 mcg PO DAILY SUPPLEMENT 05/06/21 10/04/21 20:00 History ipratropium bromide 42 mcg (0.06 2 spray intranasal BID PRN NASAL 05/06/21 10/05/21 09:00 History %) nasal spray pramipexole 0.5 mg tablet 0.75 mg PO QHS RLS 05/06/21 09/09/23 History fexofenadine 180 mg tablet 180 mg PO DAILY PRN allergy 07/09/21 10/05/21 09:00 History (Allergy Relief (fexofenadine)) acetaminophen 500 mg tablet 1,000 mg (2 x 500 mg) PO Q6H PRN 10/16/21 Unknown Rx PRN Pain Score 1-3 #0 tabs warfarin 1 mg tablet See Rx Instructions .Route 03/30/23 09/04/23 Rx .COMPLEX #90 tabs ascorbic acid (vitamin C) 500 mg 500 mg PO DAILY supplement 04/06/23 Unknown History tablet calcium 600 mg-D3 800 unit-mag11 1 tab PO DAILY REPLACEMENT 04/06/23 Unknown History 50 bi-fclx-dxfzur-stephanie-s.borat tablet (Caltrate 600-D Plus Minerals) gabapentin 300 mg capsule 300 mg PO DAILY 07/02/23 Unknown History gabapentin 300 mg capsule 600 mg PO QHS 07/02/23 09/09/23 History lactase 3,000 unit tablet (Dairy 9,000 unit PO TID PRN lactose 09/09/23 Unknown History Relief) intolerance hydrocodone-acetaminophen 5-325mg 1 tab PO Q6H PRN PRN Pain 3 days 10/28/23 Unknown Rx 5mg-325mg #10 TABLETS Allergy/AdvReac Type Severity Reaction Status Date / Time sertraline (From Zoloft) AdvReac Other Verified 10/28/23 16:42 Family History Mother Heart disease CAD (coronary artery disease) Hypertension Breast cancer Father Heart disease Bradycardia Bradycardia requiring pacemaker placement. Colon cancer Surgical History History of cardiac catheterization History of hernia surgery History of ankle surgery Hx of atrioventricular node ablation S/P MVR (mitral valve replacement) S/P left atrial appendage ligation S/P Maze operation for atrial fibrillation S/P left atrial appendage ligation History of hysterectomy for cancer History of cholecystectomy S/P ablation operation for arrhythmia History of maze procedure History of mitral valve replacement Social History household members: none Smoking Status: Never smoker alcohol intake: current alcohol intake frequency: holidays/special occasions only substance use type: does not use ROS ROS ED Constitutional Constitutional ED: Denies chills, fever(s) or weight loss Eyes Eyes: Denies change in vision or diplopia ENT ENT ED: Denies ear pain, rhinorrhea or sore throat Cardiovascular Cardiovascular: Denies chest pain, orthopnea, palpitations or racing heartbeat Respiratory/Chest Respiratory/Chest: Denies cough, dyspnea or orthopnea Gastrointestinal Gastrointestinal: Denies abdominal pain, diarrhea, nausea or vomiting Genitourinary Genitourinary ED: Denies dysuria, hematuria or urinary frequency Musculoskeletal Musculoskeletal: Reports other Details: No pain with logroll. No obvious deformity. No pubic rami tenderness. ; Denies arthralgias or myalgias Integumentary Reports other Details: There is a 1.5 cm skin tear/skin avulsion of the lateral left hip with associated underlying subcutaneous hematoma. ; Denies abscess or rash Neurologic Neurologic: Denies headache(s) or weakness Psychiatric Psychiatric: Denies anxiety, depression, suicidal ideation or suicidal thoughts Endocrine Endocrinology: Denies polydipsia, polyphagia or polyuria Allergic/Immunologic Allergic/Immunologic ED: Denies mouth swelling, tongue swelling or urticaria EXAM Physical Exam Const Vital Signs: 10/28/23 16:42 10/28/23 18:30 Temperature 97.5 F L Temperature Source Temporal Pulse Rate 63 60 Respiratory Rate 18 Blood Pressure 125/58 H 140/67 H Blood Pressure Mean 80 87 Pulse Ox 95 99 MDM MDM MDM Narrative Medical decision making narrative: Differential diagnosis includes but not limited to femur fracture pelvic fracture hematoma contusion traumatic bursitis skin avulsion Patient's INR is supratherapeutic at 3.8. Should be advised to hold this tonight and tomorrow then resume scheduling. She can schedule a INR recheck later this week. My independent interpretation of the plain films of the left hip and pelvis is no acute fracture. The wound was cleansed and dressed. Patient received [place] for pain. I can write for a few [place] at home but would recommend mostly Tylenol for pain. Follow-up 10 to 14 days if not improved continue local wound care at home History & Record Review Discussion w/independent historian: Patient and Friend Lab Data Attestation: I reviewed the patient's lab results. Labs: Laboratory Results - last 24 hr 10/28/23 10/28/23 18:15 18:40 PT Cancelled 36.8 H INR Cancelled 3.8 Radiography Diagnostic Testing: Clinical Impression(s) from Imaging Studies Hip/Pelvis X-Ray 10/28/23 17:21 IMPRESSION: No evidence for acute hip or pelvic fracture Electronically Signed: Lincoln Hill MD at 18:05 EDT Reading Location ID and State: [address] [place] [address] Tel , Service support , Discharge Plan Triage Chief Complaint: Lower Extremity Injury ED Provider: Adalid Sawant Dx/Rx/DC Orders Clinical Impression: Contusion of hip, left, Fall, Avulsion of skin, Anticoagulated on Coumadin Instructions: ED Hip Contusion, ED Skin Tear (Skin Avulsion) Prescriptions: New hydrocodone-acetaminophen 5-325 mg tablet 1 tab PO Q6H PRN PRN (Reason: Pain) 3 Days Qty: 10 0RF No Action fexofenadine [Allergy Relief (fexofenadine)] 180 mg tablet 180 mg PO DAILY PRN (Reason: allergy) cyanocobalamin (vitamin B-12) 1,000 MCG tablet, sublingual 1,000 mcg sublingual DAILY cholecalciferol (vitamin D3) [Vitamin D3] 1,000 UNIT tablet 1,000 unit PO DAILY Caltrate 600-D Plus Minerals 600 mg calcium- 800 unit-50 mg tablet 1 tab PO DAILY citalopram 10 mg tablet 10 mg PO QHS simvastatin 10 mg tablet 10 mg PO QHS pramipexole 0.5 mg tablet 0.75 mg PO QHS ipratropium bromide 42 mcg (0.06 %) spray,non-aerosol 2 spray INTRANASAL BID PRN (Reason: NASAL) biotin 1,000 mcg Tablet,Chewable 1,000 mcg PO DAILY acetaminophen 500 mg Tablet 1,000 mg PO Q6H PRN PRN (Reason: Pain Score 1-3) Qty: 0 0RF gabapentin 300 mg capsule 600 mg PO QHS gabapentin 300 mg capsule 300 mg PO DAILY lactase [Dairy Relief] 3,000 unit tablet 9,000 unit PO TID PRN (Reason: lactose intolerance) warfarin 1 mg tablet See Rx Instructions .ROUTE .COMPLEX Qty: 90 3RF Protocol: Dose Management Condition: Thursday Dose/Route: 1 mg Instruction: 1 x 1 mg tablet Condition: Thursday Dose/Route: 2 mg Instruction: 2 x 1 mg tablets Condition: Thursday Dose/Route: 2 mg Instruction: 2 x 1 mg tablets Condition: Thursday Dose/Route: 2 mg Instruction: 2 x 1 mg tablets Condition: Dose/Route: 2 mg Instruction: 2 x 1 mg tablets Condition: Thursday Dose/Route: 1 mg Instruction: 1 x 1 mg tablet Condition: Thursday Dose/Route: 1 mg Instruction: 1 x 1 mg tablet Protocol Text: Adjustment Start Date: Thursday10/19/23 INR Value: 1.9 INR Date: 10/16/23 Recheck Date: 11/09/23 Dose Instruction: TAKE 1 TABLET AT BEDTIME FOR BLOOD THINNER Rx Instructions: TAKE 1 TABLET AT BEDTIME FOR BLOOD THINNER ascorbic acid (vitamin C) 500 mg tablet 500 mg PO DAILY Primary Care Provider: Samantha Anglin Referrals: Samantha Anglin MD [Primary Care Provider] - 10-14 Days if not better Activity Restrictions/Additional Instructions: Your INR today is 3.8. Please hold your Coumadin dose tonight as well as tomorrow night. Then resume your normal schedule Print Language: New Zealander Disposition Disposition: Home, Self Care
[2023-10-28] MEDS: HYDROcodone Bitartrate/Apap 5/325 Tablet PO (17:49)
[2023-10-28 18:30] VITALS: BP 140/67; PULSE 60; O2SAT 99
[2023-10-28 19:00] LABS: International Normalized Ratio 3.8; Prothrombin Time (Protime)PT. 36.8 SECONDS (11.7-14.9)
[2023-10-28 19:44] VITALS: BP 148/70; PULSE 60; RESP 18; TEMP 36.3; O2SAT 99
== END 2023-10-28 19:45 | disposition home or self-care (01) ==
PROVIDERS: Emergency Provider Emergency Medicine; PCP Family Medicine; Visit Provider Emergency Medicine
DX: S71.012A Laceration without foreign body, left hip, initial encounter (principal); W08.XXXA Fall from other furniture, initial encounter; E78.00 Pure hypercholesterolemia, unspecified; Z79.01 Long term (current) use of 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s
CPT/HCPCS: 36415; 73502; 85610; 99282

== ENCOUNTER → 2023-11-18 | Outpatient (CLI) | payer MEDICARE, SELFPAY ==
--- NOTE | 2023-11-18 09:47 | US_ITS ---
STUDY: SUPERFICIAL ULTRASOUND - LEFT LATERAL HIP REGION. REASON FOR EXAM: Female, 83 years old. L HIP SWELLING following a recent fall. TECHNIQUE: A superficial ultrasound was performed with real-time and static mcdaniel-scale imaging. COMPARISON: None. FINDINGS: The area of interest was examined with ultrasound. There is evidence of a large complex fluid collections in the area of abnormality. This measures 8 cm x 2.6 cm in total. The largest collection measures 5.3 cm x 4.2 cm x 2.1 cm. A second collection measures 2.3 cm x 3.1 cm x 1.9 cm. Internal echoes are seen. Findings suggestive of possible resolving hematomas. US/Ext Non Vasc Limited/Soft Tiss IMPRESSION: Complex cystic structures in the area of interest. With the patient''s history of prior trauma, these may represent resolving hematomas. Electronically Signed: Franky Grimes MD at 14:32 EDT ,
== END | disposition home or self-care (01) ==
LOC: US 09:44
PROVIDERS: PCP Family Medicine; Referring Provider Internal Medicine; Visit Provider Internal Medicine
DX: R22.42 Localized swelling, mass and lump, left lower limb (principal)
CPT/HCPCS: 76882

== ENCOUNTER → 2023-11-27 | Outpatient (CLI) | payer MEDICARE, SELFPAY ==
[2023-11-27 11:46] LABS: Absolute Lymphocyte Count 0.83 X10^3/uL (0.83-4.51); Absolute Neutrophil Count 2.8 X10^3/uL (2.0-7.7); Basophil# 0.06 X10^3/uL; Basophil% 1.4 % (0-1); Eosinophil# 0.12 X10^3/uL; Eosinophils% 2.8 % (0-5); Hematocrit 37.1 % (37-47); Hemoglobin 11.9 g/dL (12.0-15.0); Lymphocyte # 0.83 X10^3/ul (0.83-4.51); Lymphocyte % 19.3 % (19-41); Mean Corp Hgb Conc 32.1 g/dL (32-36); Mean Corpuscular Hgb 30.7 pg (27.0-32.0); Mean Corpuscular Volume 95.6 fL (81-99); Mean Platelet Vol. 8.7 fl (6.2-12.0); Monocyte# 0.43 X10^3/uL; NRBC Flagged by Analyzer 0 % (0-5); Neutrophil # 2.79 X10^3/uL (2.7-7.7); Neutrophil % 64.6 % (47-70); Platelet Count 199 K/mm3 (150-450); RBC Distribution Width CV 14.2 % (11.6-14.6); RBC Distribution Width SD 49.2 fl (35.1-43.9); Red Blood Count 3.88 M/mm3 (4.2-5.4); White Blood Count 4.3 K/mm3 (4.4-11.0)
== END | disposition home or self-care (01) ==
LOC: LAB 11:06
PROVIDERS: PCP Family Medicine; Referring Provider Family Medicine; Visit Provider Family Medicine
DX: D64.9 Anemia, unspecified (principal)
CPT/HCPCS: 36415; 85025

== ENCOUNTER 2023-12-02 14:03 | Outpatient (RCR) | payer MEDICARE, SELFPAY ==
[2023-11-12 09:14] VITALS: BP 133/49; PULSE 71; RESP 18; TEMP 36.7; BMI 26.5
--- NOTE | 2023-11-12 11:01 | PCM.WC.HP ---
History of Present Illness Date of Service: 11/12/23 Chief Complaint: Left hip area ulcer History of Wound: Ms. Braxton is an 83-year-old who was referred here by her primary care physician due to localized left hip area swelling and opening. Sustained swelling after a fall on the 27 of October. History of atrial fibrillation on Coumadin and at the time of fall, INR was 3.8. Developed an area of localized swelling and some discomfort which has largely remained the same in size but subsequently opened up. No drainage. Her sister is her primary caregiver and medical POA, she helps with the dressing changes. She had imaging after the fall which did not reveal any fracture however, has not had an ultrasound of the swelling. No known history of diabetes mellitus. Appetite is good. [facility] Medical History (Updated 11/12/23 @ 13:[address] 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 Atrial fibrillation Neuropathic pain Restless leg syndrome Allergic rhinitis Depression Vitamin B12 deficiency Hyperlipidemia Vitamin D deficiency Osteoporosis 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 Presence of permanent cardiac pacemaker (~05/20/21) Depression GERD (gastroesophageal reflux disease) Sleep apnea Anticoagulated on warfarin Acute non-ST elevation myocardial infarction (NSTEMI) Hernia Endometrial cancer Neuropathy Mitral and aortic valve disease Atrial fibrillation Atrial fibrillation with RVR Home Medications ?Medication ?Instructions ?Recorded ?Last Taken ?Type cholecalciferol (vitamin D3) 25 1,000 unit PO DAILY REPLACEMENT 05/21/18 10/05/21 09:00 History mcg (1,000 unit) tablet (Vitamin D3) cyanocobalamin (vitamin B-12) 1,000 mcg sublingual DAILY 05/21/18 10/05/21 09:00 History 1,000 mcg sublingual tablet replacement citalopram 10 mg tablet 10 mg PO QHS depression 12/31/20 09/08/23 History simvastatin 10 mg tablet 10 mg PO QHS cholesterol 02/23/21 10/04/21 21:00 History biotin 1,000 mcg chewable tablet 1,000 mcg PO DAILY SUPPLEMENT 05/06/21 10/04/21 20:00 History ipratropium bromide 42 mcg (0.06 2 spray intranasal BID PRN NASAL 05/06/21 10/05/21 09:00 History %) nasal spray pramipexole 0.5 mg tablet 0.75 mg PO QHS RLS 05/06/21 09/09/23 History fexofenadine 180 mg tablet 180 mg PO DAILY PRN allergy 07/09/21 10/05/21 09:00 History (Allergy Relief (fexofenadine)) acetaminophen 500 mg tablet 1,000 mg (2 x 500 mg) PO Q6H PRN 10/16/21 Unknown Rx PRN Pain Score 1-3 #0 tabs ascorbic acid (vitamin C) 500 mg 500 mg PO DAILY supplement 04/06/23 Unknown History tablet calcium 600 mg-D3 800 unit-mag11 1 tab PO DAILY REPLACEMENT 04/06/23 Unknown History 50 sm-nipp-ekeukg-stephanie-s.borat tablet (Caltrate 600-D Plus Minerals) gabapentin 300 mg capsule 300 mg PO Q12H 07/02/23 Unknown History gabapentin 300 mg capsule 600 mg PO QHS 07/02/23 09/09/23 History lactase 3,000 unit tablet (Dairy 9,000 unit PO TID PRN lactose 09/09/23 Unknown History Relief) intolerance hydrocodone-acetaminophen 5-325mg 1 tab PO Q6H PRN PRN Pain 3 days 10/28/23 Unknown Rx 5mg-325mg #10 TABLETS warfarin 1 mg tablet 1 mg PO .COMPLEX #120 TABLETS 11/06/23 Unknown Rx clindamycin HCl 300 mg capsule 300 mg PO TID 11/12/23 Unknown History ferrous sulfate PO 11/12/23 Unknown History folic acid .ROUTE 11/12/23 Unknown History Allergy/AdvReac Type Severity Reaction Status Date / Time sertraline (From Zoloft) AdvReac Other Verified 10/28/23 16:42 Family History Mother Heart disease CAD (coronary artery disease) Hypertension Breast cancer Father Heart disease Bradycardia Bradycardia requiring pacemaker placement. Colon cancer Surgical History History of cardiac catheterization History of hernia surgery History of ankle surgery Hx of atrioventricular node ablation S/P MVR (mitral valve replacement) S/P left atrial appendage ligation S/P Maze operation for atrial fibrillation S/P left atrial appendage ligation History of hysterectomy for cancer History of cholecystectomy S/P ablation operation for arrhythmia History of maze procedure History of mitral valve replacement Social History household members: none Smoking Status: Never smoker alcohol intake: current alcohol intake frequency: holidays/special occasions only substance use type: does not use ROS Constitutional Constitutional: Denies change in weight, daytime sleepiness, fatigue, fever(s), headache(s), increased appetite or lethargy Eyes Eyes: Denies acute decrease in peripheral vision, blindness, burning, change in eye color, change in vision or exophthalmos ENT HEENT: Denies dysphagia, ear discharge, epistaxis, foreign body in nose, halitosis, headache(s) or hoarseness Cardiovascular Cardiovascular: Denies abdominal bloating, bluish discoloration of hand/feet, claudication, cold extremities, cyanosis or dizziness Respiratory/Chest Respiratory/Chest: Denies change in phlegm color, chest congestion, chest tightness, excessive phlegm production, hemoptysis, inability to speak or nail bed cyanosis Gastrointestinal Gastrointestinal: Denies abdominal pain, bloating, chewing difficulty, coffee ground emesis or excessive flatus Genitourinary Genitourinary: Denies abdominal discomfort, dysuria or flank pain Musculoskeletal Musculoskeletal: Reports joint pain; Denies deformity, muscle cramps, muscle spasms, numbness, tingling or tremors Integumentary Integumentary: Denies change in pigmentation, changing lesions, furuncle, hirsutism or jaundice Neurologic Neurologic: Denies abnormal hearing, abnormal movements, behavior changes, confusion, convulsions or numbness Endocrine Endocrinology: Denies cold intolerance, deepening of the voice, excessive sweating, flushing, heat intolerance or palpitations Hematologic/Lymphatic Hematologic/Lymphatic: Reports easy bleeding and easy bruising Allergic/Immunologic Allergic/Immunologic: Denies itchy eyes, lip swelling, throat swelling, tongue swelling, eczemia or wheezing Vital Signs Vital Signs Vital Signs: 11/12/23 09:14 Temperature 98.0 F Temperature Source Temporal Pulse Rate 71 Respiratory Rate 18 Blood Pressure 133/49 H Blood Pressure Mean 77 Blood Pressure Source Monitor Blood Pressure Position Sitting Blood Pressure Location Left Arm Oxygen Delivery Method Room Air Weight Weight: 145 lb Body Mass Index (BMI) 26.5 Physical Exam Const alert, oriented x3 and no apparent distress General Appearance: cooperative and comfortable HEENT normocephalic, head/scalp atraumatic and hearing grossly normal bilaterally Eyes EOMs intact bilaterally Neck full ROM General: normal visual inspection Resp normal respiratory effort and normal air movement Effort and Inspection: able to speak in complete sentences Cardio Rhythm: abnormal rhythm Heart Sounds: S1 normal and S2 normal GI soft to palpation and non-tender Extremity General Extremity: edema and other findings Other Details: Localized swelling/induration. Distal tenderness Skin Wounds: wounds noted bed dusky red, margins well defined, no odor and open Neuro oriented x3, moves all extremities and no focal motor deficits Psych mental status grossly normal, thought process normal and cooperative Debridement Note Debridement Note Wound debrided: Left hip Type of Debridement: Excisional debridement Anesthesia Used: 4% Lidocaine Solution Depth: Down to and including healthy tissue and in the subcutaneous layer Percentage of wound debrided: 100 Instrument Used: 3mm curette Tissue Removed: Slough and devitalized tissue Severity: Fat Layer Exposed Amount of bleeding with debridement: Mild Bleeding Controlled with: Pressure Patient tolerated procedure: Patient tolerated procedure well Post-Debridement Measurements and Additional Note: Post-Debridement Measurements/Treatment - Nurse 1 - General Ulcer Assessment Start: 11/12/23 09:13 Freq: Status: Active Protocol: [email or web address] Activity Type Activity Date Activity User E-sign Co-sign Detail Recorded Client Recorded Date Recorded By Document 11/12/23 09:14 KW ; 11/12/23 09:28 KW 11/12/23 09:14 - Today's Visit Information Type of service Initial Visit Arrival Mode Ambulatory,Cane Accompanied by SISTER Patient Identification Verified (Name & Yes ) Height and Weight Height 5 ft 2 in Weight 145 lb Weight in Pounds 145.0 lbs Weight Measurement Method Stated by Patient Body Mass Index (BMI) 26.5 BMI Classification Overweight BSA - Fouzia 1.67 Vital Signs Temperature (97.8 F-99.1 F) 98.0 F Temperature Source Temporal Pulse Rate (60-100) 71 Pulse Location Monitor Respiratory Rate (12-18) 18 Respiratory rate source Observation Oxygen Delivery Method Room Air Blood Pressure (90/60-120/80) 133/49 H Blood Pressure Mean 77 Source Monitor Position Sitting Blood Pressure Location Left Arm Pain Scale: 0-10 Numeric Is Patient Pain Free? No LT HIP -Intensity 4 -Alleviating Factors/Interventions Medication - Nurse 1 - General Ulcer Measurement Start: 11/12/23 09:13 Freq: Status: Active Protocol: Activity Type Activity Date Activity User E-sign Co-sign Detail Recorded Client Recorded Date Recorded By Document 11/12/23 09:14 KW ; 11/12/23 09:28 11/12/23 09:14 Wound Center Nurse 1 #1 LT HIP -Current Size (cm) - Length 0.3 -Current Size (cm) - Width 1 -Current Size (cm) - Depth 0.2 -Total Square Cm 0.3 -Date of Last Picture (Recall this 11/12/23 field) -Exudate Amt Small -Exudate Type Serosanguineous -Wound Margin Distinct, Outline Attached -Granulation Amt Large (67-100%) -Granulation Quality Red -Texture (Emmy-wound Skin Appearance) Assessed -Moisture (Emmy-wound Skin Appearance) Assessed -Color (Emmy-wound Skin Appearance) Assessed, Ecchymosis -Temperature (Emmy-wound Skin No Abnormality Appearance) (Pt Warm) -Tenderness on Palpation (Emmy-wound No Skin Appearance) -Ulcer Cleansing Rinsed/ Irrigated with Saline -Foul Odor after Cleansing No -Anesthetic Used 5% Lidocaine Gel - Nurse 2 - General Ulcer CM Notes Start: 11/12/23 09:13 Freq: Status: Active Protocol: Activity Type Activity Date Activity User E-sign Co-sign Detail Recorded Client Recorded Date Recorded By Document 11/12/23 09:58 [facility] 11/12/23 10:05 11/12/23 09:58 Wound Center Nurse 2 -Time 09:59 -Correct Patient Yes -Correct Side, Site, Position Yes -Correct Procedure Yes -Procedure Performed Yes -Type of Procedure Debridement -Clinical Debridement Subcutaneous -Tissue Removed Subcutaneous -Post Debridement (cm) - Length 0.2 -Post Debridement (cm) - Width 0.9 -Post Debridement (cm) - Depth 0.1 -Total Square (Post) (cm) 0.18 -Area of Debridement (cm) - Length 0.2 -Area of Debridement (cm) - Width 0.9 -Total Square (Area) (cm) 0.18 -Tunneling No -Undermining/Tunneling No -Circular Undermining No -Wound/Ulcer Outcome Not Healed -Ulcer Cleansing Rinsed/ Irrigated with Saline -Foul Odor after Cleansing No -Bioengineered Tissue No -Bleeding Controlled with Pressure -Treatment Response Procedure Tolerated Well -Debridement - Subq, 1st 20sq cm Yes Pain Scale: 0-10 Numeric Is Patient Pain Free? 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 As above, she has had no imaging of this area of possible hematoma, ultrasound ordered will review. Depending on findings, may need surgical evaluation. INR checks have remained elevated at 3.8, scheduled for repeat on Thursday warm compresses discussed, patient and her sister voiced understanding. In the meantime, Aquacel extra daily, cover with gauze and tape. Dietary intake including protein intake discussed. Questions were answered and they were advised to let us know if they have any further questions or concerns. Follow-up in a week or sooner if needed. This note was generated with [employer] dictation software. It may contain incorrect words, spelling, and punctuation that were not noted in checking the note before signing.
--- NOTE | 2023-11-18 08:57 | WC ---
PHOTO LEFT HIP 11/12/23
--- NOTE | 2023-11-18 09:01 | WC ---
PHOTO 11/12/23 (I) LEFT HIP
[2023-11-19 09:34] VITALS: BP 115/44; PULSE 87; RESP 18; TEMP 35.9; BMI 26.5
--- NOTE | 2023-11-19 10:03 | PN.PCM_ITS ---
History of Present Illness Date of Service: 11/19/23 Chief Complaint: Left hip area ulcer History of Wound: Ms. Braxton is an 83-year-old who was referred here by her primary care physician due to localized left hip area swelling and opening. Sustained swelling after a fall on the 27 of October. History of atrial fibrillation on Coumadin and at the time of fall, INR was 3.8. Developed an area of localized swelling and some discomfort which has largely remained the same in size but subsequently opened up. No drainage. Her sister is her primary caregiver and medical POA, she helps with the dressing changes. She had imaging after the fall which did not reveal any fracture however, has not had an ultrasound of the swelling. No known history of diabetes mellitus. Appetite is good. Progress of Wound: No acute concerns at this time. Healed. Swelling also said to be improving. Has been doing warm compresses. Objective Data Objective Data Vital Signs: Vital Signs Temp Pulse Resp BP O2 Del Method 96.7 F L 87 18 115/44 L Room Air 11/19/23 09:34 11/19/23 09:34 11/19/23 09:34 11/19/23 09:34 11/12/23 09:14 Oxygen Delivery Method Room Air Weight: 145 lb Body Mass Index (BMI) 26.5 Charges/Coding Visit Charges Office Visits / Consults: 28601 OV L3 Est 20min Physical Exam Const alert, oriented x3 and no apparent distress General Appearance: cooperative and comfortable HEENT normocephalic, head/scalp atraumatic and hearing grossly normal bilaterally Eyes EOMs intact bilaterally Neck full ROM General: normal visual inspection Resp normal respiratory effort Effort and Inspection: able to speak in complete sentences Extremity General Extremity: edema Neuro oriented x3, moves all extremities and no focal motor deficits Psych mental status grossly normal, thought process normal and cooperative Debridement Note Debridement Note Post-Debridement Measurements and Additional Note: Post-Debridement Measurements/Treatment WC - Nurse 1 - General Ulcer Assessment Start: 11/12/23 09:13 Freq: Status: Active Protocol: EMMA Activity Type Activity Date Activity User E-sign Co-sign Detail Recorded Client Recorded Date Recorded By Document 11/12/23 09:14 KW ; 11/12/23 09:28 KW Document 11/19/23 09:34 DL [email or web address] 07/18/24 09:39 DL 11/12/23 11/19/23 09:14 09:34 WC - Today's Visit Information Type of service Initial Visit Follow-up Visit (Physician/[employer] ) Arrival Mode Ambulatory,Cane Ambulatory Transfer Assistance None Accompanied by SISTER Patient Identification Verified (Name & Yes Yes ) Patient Requires Transmission-Based No Precautions Height and Weight Height 5 ft 2 in Weight 145 lb Weight in Pounds 145.0 lbs Weight Measurement Method Stated by Patient Body Mass Index (BMI) 26.5 26.5 BMI Classification Overweight Overweight BSA - Fouzia 1.67 Vital Signs Temperature (97.8 F-99.1 F) 98.0 F 96.7 F L Temperature Source Temporal Temporal Pulse Rate (60-100) 71 87 Pulse Location Monitor Monitor Respiratory Rate (12-18) 18 18 Respiratory rate source Observation Observation Oxygen Delivery Method Room Air Blood Pressure (90/60-120/80) 133/49 H 115/44 L Blood Pressure Mean (mm Hg) 77 67 Source Monitor Monitor Position Sitting Blood Pressure Location Left Arm History Since Last Visit- (Skip if this is Patient's initial visit) Have you changed medications since your No last visit? Any new allergies or adverse reactions No Had a fall/change in ADL's that may No increase risk of falls Signs or symptoms of abuse and/or No neglect since last visit Have you been in the hospital since your No last visit? Has dressing in place as prescribed Yes Has compression in place as prescribed N/A Has offloadiing in place as prescribed Yes Experienced any changes in pain level or No management Pain Scale: 0-10 Numeric Is Patient Pain Free? No Yes LT HIP -Intensity 4 -Alleviating Factors/Interventions Medication WC - Nurse 1 - General Ulcer Measurement Start: 11/12/23 09:13 Freq: Status: Active Protocol: Activity Type Activity Date Activity User E-sign Co-sign Detail Recorded Client Recorded Date Recorded By Document 11/12/23 09:14 KW ; 11/12/23 09:28 KW Document 11/19/23 09:34 DL [email or web address] 11/19/23 09:39 DL 11/12/23 11/19/23 09:14 09:34 Wound Center Nurse 1 #1 LT HIP -Current Size (cm) - Length 0.3 0.1 -Current Size (cm) - Width 1 0.1 -Current Size (cm) - Depth 0.2 0.1 -Total Square Cm 0.3 0.01 -Date of Last Picture (Recall this 11/12/23 field) -Exudate Amt Small None Present -Exudate Type Serosanguineous -Wound Margin Distinct, Flat & Intact Outline Attached -Granulation Amt Large (67-100%) None Present (0 %) -Granulation Quality Red -Necrosis Amt Small (1-33%) -Necrotic Tissue Type Eschar -Structure Exposed N/A -Texture (Emmy-wound Skin Appearance) Assessed Localized Edema ,Scarring -Moisture (Emmy-wound Skin Appearance) Assessed No Abnormality -Color (Emmy-wound Skin Appearance) Assessed, Ecchymosis, Ecchymosis Erythema -Temperature (Emmy-wound Skin No Abnormality No Abnormality Appearance) (Pt Warm) (Pt Warm) -Tenderness on Palpation (Emmy-wound No No Skin Appearance) -Ulcer Cleansing Rinsed/ Rinsed/ Irrigated with Irrigated with Saline Saline -Foul Odor after Cleansing No No -Anesthetic Used 5% Lidocaine 5% Lidocaine Gel Gel - Nurse 2 - General Ulcer CM Notes Start: 11/12/23 09:13 Freq: Status: Active Protocol: Activity Type Activity Date Activity User E-sign Co-sign Detail Recorded Client Recorded Date Recorded By Document 11/12/23 09:58 [facility] 11/12/23 10:05 Document 11/19/23 10:01 [facility] 11/19/23 10:01 11/12/23 11/19/23 09:58 10:01 Wound Center Nurse 2 #1 LT HIP -Time 09:59 10:01 -Correct Patient Yes Yes -Correct Side, Site, Position Yes Yes -Correct Procedure Yes -Procedure Performed Yes -Type of Procedure Debridement -Clinical Debridement Subcutaneous -Tissue Removed Subcutaneous -Post Debridement (cm) - Length 0.2 -Post Debridement (cm) - Width 0.9 -Post Debridement (cm) - Depth 0.1 -Total Square (Post) (cm) 0.18 -Area of Debridement (cm) - Length 0.2 -Area of Debridement (cm) - Width 0.9 -Total Square (Area) (cm) 0.18 -Tunneling No -Undermining/Tunneling No -Circular Undermining No -Wound/Ulcer Outcome Not Healed Healed- Epithelialized -Ulcer Cleansing Rinsed/ Irrigated with Saline -Foul Odor after Cleansing No -Bioengineered Tissue No -Bleeding Controlled with Pressure -Treatment Response Procedure Tolerated Well -Debridement - Subq, 1st 20sq cm Yes Pain Scale: 0-10 Numeric Is Patient Pain Free? Yes Yes WC - Nurse 3 - General Ulcer D/C NN Start: 11/12/23 09:13 Freq: Status: Active Protocol: Activity Type Activity Date Activity User E-sign Co-sign Detail Recorded Client Recorded Date Recorded By Document 11/12/23 12:05 KW ; 11/12/23 12:05 KW 11/12/23 12:05 Wound Care Center Nurse 3 #1 LT HIP -Primary Dressing Applied Aquacel Extra, Mepilex Border -Aquacel Extra 1 -Mepilex Border 1 Pain Scale: 0-10 Numeric Is Patient Pain Free? 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 Healed. Ultrasound reviewed, resolving hematoma. Adaptic and gauze daily for 2 weeks and then stop. Continue warm compresses to area of hematoma. Continue other chronic management and follow-up with PCP. Discharge from the wound clinic. They were advised to call with any further questions or concerns. This note was generated with [employer] software. It may contain incorrect words, spelling, and punctuation that were not noted in checking the note before signing.
== END 2023-12-02 23:59 | disposition home or self-care (01) ==
LOC: WC 14:03
PROVIDERS: PCP Family Medicine; Referring Provider Family Medicine; Visit Provider Internal Medicine
DX: L97.822 Non-pressure chronic ulcer of other part of left lower leg with fat layer exposed (principal); I48.0 Paroxysmal atrial fibrillation; S70.02XS Contusion of left hip, sequela; W19.XXXS Unspecified fall, sequela; E78.00 Pure hypercholesterolemia, unspecified; I25.2 Old myocardial infarction; Z79.01 Long term (current) use of 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s; Z79.899 Other long term (current) drug therapy; Z95.0 Presence of cardiac pacemaker
CPT/HCPCS: 11042; 99213; G0463

== ENCOUNTER 2023-12-02 14:04 | Outpatient (RCR) | payer MEDICARE, SELFPAY ==
[2023-11-02 03:42] VITALS: BMI 26.7
[2023-11-06 11:32] LABS: International Normalized Ratio 3.8; Prothrombin Time (Protime)PT. 36.8 SECONDS (11.7-14.9)
[2023-11-06 11:56] LABS: Anion Gap 5 (5-15); BUN 18 mg/dL (7-18); BUN/Creat Ratio 22.2 RATIO (10-20); Calcium,Total 9.2 mg/dL (8.5-10.1); Chloride 108 mmol/L (98-107); Creatinine, Serum 0.81 mg/dL (0.55-1.02); EST Glomerular Filtration Rate 72 mL/min (>60); Est Glom Filt Rate - Afr Amer 87 mL/min (>60); Glucose 86 mg/dL (74-106); Potassium 3.8 mmol/L (3.5-5.1); Sodium Level 140 mmol/L (136-145)
[2023-11-06 14:14] LABS: Absolute Lymphocyte Count 0.84 X10^3/uL (0.83-4.51); Absolute Neutrophil Count 3.5 X10^3/uL (2.0-7.7); Basophil# 0.04 X10^3/uL; Basophil% 0.8 % (0-1); Eosinophil# 0.16 X10^3/uL; Eosinophils% 3.2 % (0-5); Hematocrit 25.1 % (37-47); Lymphocyte # 0.84 X10^3/ul (0.83-4.51); Lymphocyte % 16.8 % (19-41); Mean Corp Hgb Conc 31.9 g/dL (32-36); Mean Corpuscular Hgb 30.7 pg (27.0-32.0); Mean Corpuscular Volume 96.2 fL (81-99); Mean Platelet Vol. 9.6 fl (6.2-12.0); Monocyte# 0.43 X10^3/uL; Monocyte% 8.6 % (0-10); NRBC Flagged by Analyzer 0 % (0-5); Neutrophil % 70.2 % (47-70); Platelet Count 291 K/mm3 (150-450); RBC Distribution Width CV 14.1 % (11.6-14.6); RBC Distribution Width SD 47.6 fl (35.1-43.9); Red Blood Count 2.61 M/mm3 (4.2-5.4)
[2023-11-13 10:43] LABS: INR Fingerstick 3.8; Prothrombin Time Fingerstick 37.4 SEC (11.7-14.9)
[2023-11-18 10:48] LABS: INR Fingerstick 1.9; Prothrombin Time Fingerstick 20.2 SEC (11.7-14.9)
[2023-12-02 14:14] LABS: INR Fingerstick 2.1
== END 2023-12-02 18:00 | disposition home or self-care (01) ==
LOC: LAB 14:04
PROVIDERS: PCP Family Medicine; Referring Provider Internal Medicine Cardiovascular Disease; Visit Provider Internal Medicine Cardiovascular Disease
DX: I48.91 Unspecified atrial fibrillation (principal); Z79.01 Long term (current) use of 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s
CPT/HCPCS: 36415; 36416; 80048; 85025; 85610

== ENCOUNTER 2024-01-06 14:39 | Outpatient (RCR) | payer MEDICARE, SELFPAY ==
[2023-12-02 22:34] VITALS: BMI 26.7
[2024-01-06 14:48] LABS: INR Fingerstick 2.5; Prothrombin Time Fingerstick 25.6 SEC (11.7-14.9)
== END 2024-01-06 18:00 | disposition home or self-care (01) ==
LOC: LAB 14:39
PROVIDERS: PCP Family Medicine; Referring Provider Internal Medicine Cardiovascular Disease; Visit Provider Internal Medicine Cardiovascular Disease
DX: Z79.01 Long term (current) use of 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s; I48.0 Paroxysmal atrial fibrillation
CPT/HCPCS: 36416; 85610

== ENCOUNTER 2024-02-03 12:03 | Emergency (ER) | payer MEDICARE, SELFPAY ==
[2024-02-03 12:04] VITALS: BP 152/90; PULSE 69; RESP 19; TEMP 36.1; O2SAT 97
--- NOTE | 2024-02-03 12:22 | RAD_ITS ---
EXAM: XR LEFT KNEE COMPLETE, 4 OR MORE VIEWS CLINICAL INDICATION: trauma TECHNIQUE: Four or more views of the left knee. COMPARISON: No relevant prior studies available. FINDINGS: BONES/JOINTS: Unremarkable. No acute fracture. No subluxation. Normal alignment. Preservation of the joint space. No sclerotic or destructive changes observed. SOFT TISSUES: Unremarkable. No soft tissue swelling or gas. No radiopaque foreign body. RAD/Knee 4 or More Views IMPRESSION: Negative left knee x-rays. Electronically Signed: Jaylon Daniels MD at 13:27 EDT ,
--- NOTE | 2024-02-03 12:22 | CT_ITS ---
EXAM: CT HEAD WITHOUT INTRAVENOUS CONTRAST CLINICAL INDICATION: trauma TECHNIQUE: Multiple axial images were obtained of the head without intravenous contrast. This CT exam was performed using one or more of the following dose reduction techniques: automated exposure control, adjustment of the mA and/or kV according to patient size, and/or use of iterative reconstruction technique. COMPARISON: No relevant prior studies available. FINDINGS: BRAIN AND EXTRA-AXIAL SPACES: Unremarkable. No intra- or extra-axial hemorrhage. No evidence of acute infarct. No intracranial mass or mass effect. There is preservation of the mcdaniel/white matter interface. Posterior fossa structures are unremarkable. Ventricles are appropriate for age. No hydrocephalus. Basal cisterns are patent. BONES/JOINTS: Unremarkable. No discrete lytic or blastic abnormalities. SINUSES: Unremarkable as visualized. Clear. MASTOID AIR CELLS: Unremarkable. Clear. ORBITS: Visualized globes, extraocular muscles, optic nerves and retrobulbar fat appear unremarkable. CT/Brain/Head without Contrast IMPRESSION: Negative head/brain CT without intravenous contrast. Electronically Signed: Jaylon Daniels MD at 13:15 EDT ,
--- NOTE | 2024-02-03 12:22 | CT_ITS ---
EXAM: CT MAXILLOFACIAL WITHOUT INTRAVENOUS CONTRAST CLINICAL INDICATION: trauma TECHNIQUE: Helically acquired images were obtained of the face without intravenous contrast. This CT exam was performed using one or more of the following dose reduction techniques: automated exposure control, adjustment of the mA and/or kV according to patient size, and/or use of iterative reconstruction technique. COMPARISON: No relevant prior studies available. FINDINGS: BONES/JOINTS: Unremarkable. No displaced fracture. No discrete lytic or blastic abnormalities. SOFT TISSUES: Unremarkable. No focal subcutaneous swelling. No discrete fluid collections. ORBITS: Unremarkable. Both globes are unremarkable. Extraocular muscles are normal. Retrobulbar fat appears unremarkable. SINUSES: Unremarkable as visualized. Clear. MASTOID AIR CELLS: Unremarkable as visualized. Clear. DENTAL: No acute findings. No periodontal osseous erosion. CT/Sinus/Facial Bone IMPRESSION: Negative CT facial bones without intravenous contrast. Electronically Signed: Jaylon Daniels MD at 13:16 EDT ,
--- NOTE | 2024-02-03 12:22 | RAD_ITS ---
EXAM: XR RIGHT RIBS AND AP CHEST, 3 OR MORE VIEWS CLINICAL INDICATION: trauma TECHNIQUE: Frontal and oblique views of the right ribs and frontal view of the chest. COMPARISON: 10/05/2021 FINDINGS: LUNGS AND PLEURAL SPACES: Unremarkable. No consolidation or edema. No pneumothorax. No effusion. HEART: Atrial appendage clip is in place. MEDIASTINUM: Central airways and mediastinal contour are unremarkable. BONES/JOINTS: Unremarkable. No evidence of displaced rib fractures. TUBES, LINES AND DEVICES: Left-sided pacemaker in stable position. RAD/Ribs Uni Min 3V w/PA Chest IMPRESSION: No acute findings in the chest or right ribs. Electronically Signed: Jaylon Daniels MD at 13:28 EDT ,
--- NOTE | 2024-02-03 12:22 | CT_ITS ---
EXAM: CT CERVICAL SPINE WITHOUT INTRAVENOUS CONTRAST CLINICAL INDICATION: trauma TECHNIQUE: Helically acquired images were obtained of the cervical spine without intravenous contrast. 2D reformatted images were reviewed. This CT exam was performed using one or more of the following dose reduction techniques: automated exposure control, adjustment of the mA and/or kV according to patient size, and/or use of iterative reconstruction technique. COMPARISON: No relevant prior studies available. FINDINGS: VERTEBRAE: Unremarkable. No fracture. No traumatic subluxation. No discrete lytic or blastic abnormality. Normal alignment. Normal craniocervical junction and cervicothoracic junction. DISCS/SPINAL CANAL/NEURAL FORAMINA: Unremarkable. Disc heights are preserved. No critical stenosis. SOFT TISSUES: Unremarkable. No prevertebral soft tissue swelling. LYMPH NODES: Unremarkable. No cervical adenopathy. LUNG APICES: Unremarkable as visualized. Clear. CT/Spine Cervical without Contras IMPRESSION: No evidence of acute cervical spinal fracture or spondylolisthesis. Electronically Signed: Jaylon Daniels MD at 13:25 EDT ,
[2024-02-03] MEDS: Diphth,Pertuss(Acell),Tet Vac 0.5 ML Vial IM (12:33)
[2024-02-03] MEDS: Lidocaine/Epi/Tetracaine 50 ML 1 APPLIC TOPICAL (12:34)
[2024-02-03 14:03] VITALS: RESP 16
--- NOTE | 2024-02-03 14:05 | ED.VIS.FALL ---
HPI HPI - Fall History of Present Illness Chief Complaint: Fall Informant: patient Narrative Narrative: Brought in as rapid response seen from the parking lot. Patient coming in the hospital for routine blood checks when she had mechanical fall on the concrete. She is on warfarin for history of paroxysmal A-fib. She currently has a pacemaker. Injury to the face, no loss of conscious. Denies neck or back pain. Denies chest pains. Pain to right lower rib and her left knee. Tetanus unknown. Tetanus Immunization: Unknown PFSH [facility] Medical History Hematoma Skin ulcer of hip with fat layer exposed Loss of hearing Wears hearing aid Wears glasses Cancer High cholesterol Restless legs History of IBS Diverticulosis History of diverticulitis History of echocardiogram History of pacemaker Cardiology follow-up encounter Osteopenia GI bleed Non-smoker CPAP (continuous positive airway pressure) dependence Pacemaker 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, left long-term current use of 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 Atrial fibrillation Neuropathic pain Restless leg syndrome Allergic rhinitis Depression Vitamin B12 deficiency Hyperlipidemia Vitamin D deficiency Osteoporosis 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 Presence of permanent cardiac pacemaker (~05/20/21) Depression GERD (gastroesophageal reflux disease) Sleep apnea Anticoagulated on warfarin Acute non-ST elevation myocardial infarction (NSTEMI) Hernia Endometrial cancer Neuropathy Mitral and aortic valve disease Atrial fibrillation Atrial fibrillation with RVR Home Medications ?Medication ?Instructions ?Recorded ?Last Taken ?Type cholecalciferol (vitamin D3) 25 1,000 unit PO DAILY REPLACEMENT 05/21/18 10/05/21 09:00 History mcg (1,000 unit) tablet (Vitamin D3) cyanocobalamin (vitamin B-12) 1,000 mcg sublingual DAILY 05/21/18 10/05/21 09:00 History 1,000 mcg sublingual tablet replacement citalopram 10 mg tablet 10 mg PO QHS depression 12/31/20 09/08/23 History simvastatin 10 mg tablet 10 mg PO QHS cholesterol 02/23/21 10/04/21 21:00 History biotin 1,000 mcg chewable tablet 1,000 mcg PO DAILY SUPPLEMENT 05/06/21 10/04/21 20:00 History ipratropium bromide 42 mcg (0.06 2 spray intranasal BID PRN NASAL 05/06/21 10/05/21 09:00 History %) nasal spray pramipexole 0.5 mg tablet 0.75 mg PO QHS RLS 05/06/21 09/09/23 History fexofenadine 180 mg tablet 180 mg PO DAILY PRN allergy 07/09/21 10/05/21 09:00 History (Allergy Relief (fexofenadine)) acetaminophen 500 mg tablet 1,000 mg (2 x 500 mg) PO Q6H PRN 10/16/21 Unknown Rx PRN Pain Score 1-3 #0 tabs ascorbic acid (vitamin C) 500 mg 500 mg PO DAILY supplement 04/06/23 Unknown History tablet calcium 600 mg-D3 800 unit-mag11 1 tab PO DAILY REPLACEMENT 04/06/23 Unknown History 50 gm-iejx-suinrq-stephanie-s.borat tablet (Caltrate 600-D Plus Minerals) gabapentin 300 mg capsule 600 mg PO QHS 07/02/23 09/09/23 History lactase 3,000 unit tablet (Dairy 9,000 unit PO TID PRN lactose 09/09/23 Unknown History Relief) intolerance warfarin 1 mg tablet 1 mg PO .COMPLEX #120 TABLETS 11/06/23 Unknown Rx ferrous sulfate [Iron (ferrous 325 mg PO TID 11/26/23 Unknown History sulfate)] folic acid 50 mg PO DAILY 11/26/23 Unknown History gabapentin 300 mg capsule 300 mg PO DAILY 11/26/23 Unknown History multivitamin 1 tab PO DAILY 11/26/23 Unknown History Allergy/AdvReac Type Severity Reaction Status Date / Time sertraline (From Zoloft) AdvReac Other Verified 02/03/24 12:06 Family History Mother Heart disease CAD (coronary artery disease) Hypertension Breast cancer Father Heart disease Bradycardia Bradycardia requiring pacemaker placement. Colon cancer Surgical History History of cardiac catheterization History of hernia surgery History of ankle surgery Hx of atrioventricular node ablation S/P MVR (mitral valve replacement) S/P left atrial appendage ligation S/P Maze operation for atrial fibrillation S/P left atrial appendage ligation History of hysterectomy for cancer History of cholecystectomy S/P ablation operation for arrhythmia History of maze procedure History of mitral valve replacement Social History household members: none Smoking Status: Never smoker alcohol intake: current alcohol intake frequency: holidays/special occasions only substance use type: does not use ROS ROS ED Constitutional Constitutional ED: Denies chills, fever(s) or sweats Eyes Eyes: Denies change in vision ENT ENT ED: Denies dysphagia or sore throat Cardiovascular Cardiovascular: Denies chest pain, leg edema, palpitations or racing heartbeat Respiratory/Chest Respiratory/Chest: Denies cough, dyspnea or dyspnea on exertion Gastrointestinal Gastrointestinal: Denies abdominal pain, diarrhea, nausea or vomiting Genitourinary Genitourinary ED: Denies dysuria, hematuria or urinary frequency Musculoskeletal Musculoskeletal: Reports extremity pain; Denies back pain or neck pain Integumentary Reports wounds; Denies rash Neurologic Neurologic: Reports headache(s); Denies paresthesias or weakness EXAM Physical Exam Const Vital Signs: 02/03/24 12:04 02/03/24 14:03 Temperature 96.9 F L Temperature Source Oral Pulse Rate 69 Respiratory Rate 19 H 16 Blood Pressure 152/90 H Blood Pressure Mean 110 Pulse Ox 97 Oxygen Delivery Method Room Air Positive well nourished and well developed Constitutional Narrative: GCS 15. General Appearance ED: well developed and NAD HEENT Reports moist mucous membranes HEENT Narrative: Abrasions to her upper lip with no active bleeding. No septal hematoma no nasal bleed. There is a noted 2 cm midline lip laceration crosses vermilion inferiorly, has no active bleeding. There is ecchymosis to the lower lip. Ecchymosis to the lower chin. No dental loosening. No trismus. normocephalic Eyes EOMs intact bilaterally and conjunctivae normal General Eye ED: Yes normal appearance of both eyes Neck full ROM, no lymphadenopathy and supple Neck Narrative: No midline tenderness or step-offs. General: Negative for tenderness Chest Wall Chest Narrative: Mild tenderness right lower rib. No crepitus. No ecchymosis. Chest: tenderness Resp normal respiratory effort and normal air movement Resp Narrative: Symmetric breath sounds Effort and Inspection: symmetric chest movement; Negative for respiratory distress Cardio regular rate, regular rhythm and no murmurs Peripheral Pulses: pulses 2+ throughout GI normal to inspection, nondistended, normoactive bowel sounds and non-tender Palpation: Negative for guarding or rebound tenderness present Back/Spine no CVA tenderness and no thoracic nor lumbar tenderness Back/Spine Narrative: No midline thoracic or lumbar tenderness. Extremity normal to inspection Extremity Narrative: Upper extremities: Full range of motion without any tenderness. Negative logroll lower extremities. Left knee mild tenderness patellar no deformities. Soft compartments. Pulses intact distally. General Extremety ED: Yes tenderness; Negative for edema General Extremity: Negative for edema Neuro oriented x3, CN's II-XII intact bilaterally and no sensory deficits noted Sensorium / Orientation: awake and alert Skin Skin Narrative: See above MDM MDM MDM Narrative Medical decision making narrative: Interventions / MDM: Differential diagnosis: Facial contusion, abrasions, lip laceration, chest wall contusion Diagnosis considered but do not suspect: Intracranial hemorrhage, facial fracture, rib fractures however image studies are negative. My EKG interpretation: N/A Imaging independently reviewed and interpreted by myself: 4 view left knee: No fracture noted. Right rib series PA chest 4 views: No rib fractures no pneumothorax. CT scan head/face/cervical spine: No acute process also read by radiology. External documents reviewed: N/A Test considered but not ordered:N/A ED course: Mechanical fall on warfarin with head injury. Trauma scans head neck and face ordered. INR ordered to check. X-ray of right rib series PA chest ordered along with left knee x-ray. LET placed to her upper lip and plans for repair. Tetanus updated. Trauma scans head neck face was negative. X-rays were negative. Procedure note: Verbal consent. Normal sterile conditions. Good analgesic from left placement. Wound was cleansed. A total of 3, 6-0 nylon simple interrupted sutures placed to her upper lip. Initial stitch was to approximate the vermilion border. Good approximation achieved. Patient tolerated procedure well. 1400: Patient initially declined pain medications. Agreed with Tylenol. Awaiting INR. Patient was ambulated department with no difficulties. INR therapeutic 2.9. She has seen ENT Dr. Kumari in the past. She will follow-up with him for her facial injuries and suture removal. Re-evaluation: stable Disposition discussed with patient/family/significant other: Patient Case discussed with consulting clinician: N/A This note was generated with [employer] dictation software. It may contain incorrect words, spelling, and punctuation that were not noted in checking the note before signing. Lab Data Attestation: I reviewed the patient's lab results. Labs: Laboratory Results - last 24 hr 02/03/24 14:03 PT 29.8 H INR 2.9 Radiography Diagnostic Testing: Clinical Impression(s) from Imaging Studies Brain CT 02/03/24 12:22 IMPRESSION: Negative head/brain CT without intravenous contrast. Electronically Signed: Jaylon Daniels MD at 13:15 EDT Reading Location ID and State: [facility] / [place] Tel , Service support , Cervical Spine CT 02/03/24 12:22 IMPRESSION: No evidence of acute cervical spinal fracture or spondylolisthesis. Electronically Signed: Jaylon Daniels MD at 13:25 EDT Reading Location ID and State: [facility] / [place] Tel , Service support , Facial/Sinus 02/03/24 12:22 IMPRESSION: Negative CT facial bones without intravenous contrast. Electronically Signed: Jaylon Daniels MD at 13:16 EDT , Knee X-Ray 02/03/24 12:22 IMPRESSION: Negative left knee x-rays. Electronically Signed: Jaylon Daniels MD at 13:27 EDT Reading Location ID and State: [facility] / [place] Tel , Service support , Ribs w/Chest X-Ray 02/03/24 12:22 IMPRESSION: No acute findings in the chest or right ribs. Electronically Signed: Jaylon Daniels MD at 13:28 EDT , Discharge Plan Triage Chief Complaint: Fall ED Provider: Le,Cornel Dx/Rx/DC Orders Clinical Impression: CHI (closed head injury), Abrasion of face, Laceration of lip, Chest wall contusion, Contusion of left knee Instructions: ED Chest Wall Contusion, ED Head Injury (Adult), ED Laceration, Lip or Mouth Prescriptions: No Action fexofenadine [Allergy Relief (fexofenadine)] 180 mg tablet 180 mg PO DAILY PRN (Reason: allergy) multivitamin Tablet 1 tab PO DAILY cyanocobalamin (vitamin B-12) 1,000 MCG tablet, sublingual 1,000 mcg sublingual DAILY cholecalciferol (vitamin D3) [Vitamin D3] 1,000 UNIT tablet 1,000 unit PO DAILY Caltrate 600-D Plus Minerals 600 mg calcium- 800 unit-50 mg tablet 1 tab PO DAILY citalopram 10 mg tablet 10 mg PO QHS simvastatin 10 mg tablet 10 mg PO QHS pramipexole 0.5 mg tablet 0.75 mg PO QHS ipratropium bromide 42 mcg (0.06 %) spray,non-aerosol 2 spray INTRANASAL BID PRN (Reason: NASAL) biotin 1,000 mcg Tablet,Chewable 1,000 mcg PO DAILY acetaminophen 500 mg Tablet 1,000 mg PO Q6H PRN PRN (Reason: Pain Score 1-3) Qty: 0 0RF gabapentin 300 mg capsule 600 mg PO QHS gabapentin 300 mg capsule 300 mg PO DAILY lactase [Dairy Relief] 3,000 unit tablet 9,000 unit PO TID PRN (Reason: lactose intolerance) ferrous sulfate [Iron (ferrous sulfate)] 325 mg PO TID folic acid 50 mg PO DAILY ascorbic acid (vitamin C) 500 mg tablet 500 mg PO DAILY warfarin 1 mg tablet 1 mg PO .COMPLEX Qty: 120 3RF Protocol: Dose Management Condition: Thursday Dose/Route: 1 mg Instruction: 1 x 1 mg tablet Condition: Thursday Dose/Route: 1 mg Instruction: 1 x 1 mg tablet Condition: Thursday Dose/Route: 2 mg Instruction: 2 x 1 mg tablets Condition: Thursday Dose/Route: 2 mg Instruction: 2 x 1 mg tablets Condition: Dose/Route: 1 mg Instruction: 1 x 1 mg tablet Condition: Thursday Dose/Route: 1 mg Instruction: 1 x 1 mg tablet Condition: Thursday Dose/Route: 1 mg Instruction: 1 x 1 mg tablet Protocol Text: Adjustment Start Date: Thursday01/06/24 INR Value: 2.5 INR Date: 01/06/24 Recheck Date: 02/05/24 Rx Instructions: 1 mg orally Take two tabs (2mg) Thu- and one tab (1mg) Thu-Thu; or use as directed; Primary Care Provider: Samantha Anglin Referrals: Samantha Anglin MD [Primary Care Provider] - 1-2 Weeks Nomi Kumari MD [Med Staff - Active Staff] - 5-7 Days Activity Restrictions/Additional Instructions: CT head face and neck negative. Right chest with rib series negative. Left knee negative. Your INR is 2.9 today. Use Tylenol as needed. Wound care as discussed. Follow-up with Dr. Kumari in 5 to 7 days evaluation of your lip laceration and for suture removal. Print Language: Irish Disposition Disposition: Home, Self Care Discharge Date/Time: 02/03/24 15:18
[2024-02-03] MEDS: Acetaminophen 500 MG Tablet 1000 MG PO (14:20)
[2024-02-03 14:39] LABS: International Normalized Ratio 2.9; Prothrombin Time (Protime)PT. 29.8 SECONDS (11.7-14.9)
== END 2024-02-03 15:18 | disposition home or self-care (01) ==
PROVIDERS: Emergency Provider Emergency Medicine; PCP Family Medicine; Visit Provider Emergency Medicine
DX: S01.511A Laceration without foreign body of lip, initial encounter (principal); I48.0 Paroxysmal atrial fibrillation; S80.02XA Contusion of left knee, initial encounter; S20.211A Contusion of right front wall of thorax, initial encounter; W19.XXXA Unspecified fall, initial encounter; Y92.481 Parking lot as the place of occurrence of the external cause; E78.00 Pure hypercholesterolemia, unspecified; G25.81 Restless legs syndrome; Z23 Encounter for immunization; Z79.01 Long term (current) use of 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s; Z79.899 Other long term (current) drug therapy; Z95.0 Presence of cardiac pacemaker; I25.2 Old myocardial infarction
CPT/HCPCS: 12011; 36415; 70450; 70486; 71101; 72125; 73564; 85610; 90715; 99283

== ENCOUNTER 2024-03-01 11:52 | Outpatient (RCR) | payer MEDICARE, SELFPAY ==
[2024-02-02 04:33] VITALS: BMI 26.7
[2024-03-02 11:24] LABS: INR Fingerstick 2.9; Prothrombin Time Fingerstick 30.5 SEC (11.7-14.9)
[2024-03-03 12:07] LABS: INR Fingerstick 2.9; Prothrombin Time Fingerstick 30.5 SEC (11.7-14.9)
== END 2024-03-01 18:00 | disposition home or self-care (01) ==
LOC: LAB 11:52
PROVIDERS: PCP Family Medicine; Referring Provider Internal Medicine Cardiovascular Disease; Visit Provider Internal Medicine Cardiovascular Disease
DX: Z79.01 Long term (current) use of 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s; I48.0 Paroxysmal atrial fibrillation
CPT/HCPCS: 36416; 85610

== ENCOUNTER → 2024-03-21 | Outpatient (CLI) | payer MEDICARE, SELFPAY | END | disposition home or self-care (01) | PROVIDERS: PCP Family Medicine; Referring Provider Family Medicine; Visit Provider Family Medicine | DX: Z12.31 Encounter for screening mammogram for malignant neoplasm of breast (principal) | CPT/HCPCS: 77063; 77067 ==

== ENCOUNTER 2024-03-30 14:37 | Outpatient (RCR) | payer MEDICARE, SELFPAY ==
[2024-03-03 20:57] VITALS: BMI 26.7
== END 2024-04-02 18:00 | disposition home or self-care (01) ==
LOC: LAB 14:37
PROVIDERS: PCP Family Medicine; Referring Provider Internal Medicine Cardiovascular Disease; Visit Provider Internal Medicine Cardiovascular Disease
DX: I48.91 Unspecified atrial fibrillation (principal); Z79.01 Long term (current) use of 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s

== ENCOUNTER 2024-04-07 13:00 | Outpatient (RCR) | payer MEDICARE, SELFPAY | END 2024-04-07 14:51 | disposition home or self-care (01) | LOC: PT 13:00 | PROVIDERS: PCP Family Medicine; Referring Provider Family Medicine; Visit Provider Family Medicine | DX: R29.6 Repeated falls (principal); Z91.81 History of falling | CPT/HCPCS: 97110; 97161; 97530 ==

== ENCOUNTER 2024-04-28 09:24 | Outpatient (RCR) | payer MEDICARE, SELFPAY ==
[2024-04-03 01:14] VITALS: BMI 26.7
[2024-04-28 09:36] LABS: INR Fingerstick 3.3; Prothrombin Time Fingerstick 33.7 SEC (11.7-14.9)
== END 2024-04-28 18:00 | disposition home or self-care (01) ==
LOC: LAB 09:24
PROVIDERS: PCP Family Medicine; Referring Provider Internal Medicine Cardiovascular Disease; Visit Provider Internal Medicine Cardiovascular Disease
DX: Z79.01 Long term (current) use of 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s; I48.0 Paroxysmal atrial fibrillation
CPT/HCPCS: 36416; 85610

== ENCOUNTER → 2024-05-03 | Outpatient (CLI) | payer MEDICARE, SELFPAY ==
[2024-05-03 12:36] LABS: Absolute Lymphocyte Count 1.01 X10^3/uL (0.83-4.51); Absolute Neutrophil Count 4.5 X10^3/uL (2.0-7.7); Basophil# 0.08 X10^3/uL; Basophil% 1.3 % (0-1); Eosinophil# 0.17 X10^3/uL; Eosinophils% 2.7 % (0-5); Hemoglobin 13.5 g/dL (12.0-15.0); Lymphocyte # 1.01 X10^3/ul (0.83-4.51); Lymphocyte % 16.3 % (19-41); Mean Corp Hgb Conc 32.9 g/dL (32-36); Mean Corpuscular Hgb 29.5 pg (27.0-32.0); Mean Corpuscular Volume 89.5 fL (81-99); Mean Platelet Vol. 8.5 fl (6.2-12.0); Monocyte# 0.44 X10^3/uL; Monocyte% 7.1 % (0-10); NRBC Flagged by Analyzer 0 % (0-5); Neutrophil # 4.49 X10^3/uL (2.7-7.7); Neutrophil % 72.3 % (47-70); Platelet Count 246 K/mm3 (150-450); RBC Distribution Width CV 13.1 % (11.6-14.6); RBC Distribution Width SD 42.5 fl (35.1-43.9); Red Blood Count 4.58 M/mm3 (4.2-5.4); White Blood Count 6.2 K/mm3 (4.4-11.0)
== END | disposition home or self-care (01) ==
PROVIDERS: PCP Family Medicine; Referring Provider Family Medicine; Visit Provider Family Medicine
DX: D64.9 Anemia, unspecified (principal)
CPT/HCPCS: 36415; 85025

== ENCOUNTER → 2024-05-17 | Outpatient (CLI) | payer MEDICARE, SELFPAY ==
[2024-05-17 12:02] LABS: Anion Gap 2 (5-15); BUN 22 mg/dL (7-18); Calcium,Total 9.2 mg/dL (8.5-10.1); Chloride 107 mmol/L (98-107); Creatinine, Serum 1.05 mg/dL (0.55-1.02); EST Glomerular Filtration Rate 53 mL/min (>60); Est Glom Filt Rate - Afr Amer 65 mL/min (>60); Glucose 108 mg/dL (74-106); Potassium 3.9 mmol/L (3.5-5.1); Sodium Level 141 mmol/L (136-145)
[2024-05-17 12:07] LABS: Vitamin D,25 Hydroxy 64.1 ng/mL
== END | disposition home or self-care (01) ==
PROVIDERS: PCP Family Medicine; Referring Provider Internal Medicine Rheumatology; Visit Provider Internal Medicine Rheumatology
DX: M81.0 Age-related osteoporosis without current pathological fracture (principal)
CPT/HCPCS: 36415; 80048; 82306

== ENCOUNTER 2024-06-02 10:01 | Outpatient (RCR) | payer MEDICARE, SELFPAY ==
[2024-05-04 04:45] VITALS: BMI 26.7
[2024-05-20 15:23] LABS: INR Fingerstick 3.6; Prothrombin Time Fingerstick 35.4 SEC (11.7-14.9)
[2024-06-02 10:17] LABS: INR Fingerstick 2.2; Prothrombin Time Fingerstick 22.7 SEC (11.7-14.9)
== END 2024-06-02 18:00 | disposition home or self-care (01) ==
LOC: LAB 10:01
PROVIDERS: PCP Family Medicine; Referring Provider Internal Medicine Cardiovascular Disease; Visit Provider Internal Medicine Cardiovascular Disease
DX: I48.91 Unspecified atrial fibrillation (principal); Z79.01 Long term (current) use of 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s
CPT/HCPCS: 36416; 85610

== ENCOUNTER 2024-06-17 13:45 | Outpatient (RCR) | payer MEDICARE, SELFPAY ==
[2024-06-04 04:37] VITALS: BMI 26.7
[2024-06-20 07:54] LABS: INR Fingerstick 2.6; Prothrombin Time Fingerstick 26.2 SEC (11.7-14.9)
== END 2024-07-01 18:00 | disposition home or self-care (01) ==
LOC: LAB 13:45
PROVIDERS: PCP Family Medicine; Referring Provider Internal Medicine Cardiovascular Disease; Visit Provider Internal Medicine Cardiovascular Disease
DX: I48.91 Unspecified atrial fibrillation (principal); Z79.01 Long term (current) use of 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s
CPT/HCPCS: 36416; 85610

== ENCOUNTER → 2024-06-17 | Outpatient (CLI) | payer MEDICARE, SELFPAY ==
--- NOTE | 2024-06-17 12:53 | ECHOCS_ITS ---
Reason For Study Reason For Study: Re-Evaluate EF and Valve Procedure This was a 2D Doppler, Color Flow transthoracic echocardiogram. Contrast injection was performed. Exam performed in department. Left Ventricle Normal LV size. Left ventricular systolic function is normal. Stage 3 diastolic dysfunction. The left ventricular ejection fraction is 55 %. No regional wall motion abnormalities noted. Right Ventricle Normal RV size. ICD or pacer leads identified within the right ventricle. Normal systolic function. Atria The left atrium is moderately enlarged. Normal right atrium. Mitral Valve Bioprosthetic mitral valve. Tricuspid Valve Normal tricuspid valve. Mild (1+) tricuspid valve insufficiency. Pulmonary artery systolic pressure is 27 mmHg. Aortic Valve Trisinus/trileaflet aortic valve. Mild (1+) eccentric aortic valve insufficiency. Pulmonic Valve Normal pulmonic valve. Great Vessels Normal aortic root. The pulmonary artery is normal size. Inferior vena cava collapse with respiration. Pericardium/Pleural No pericardial effusion. Medication 22 gauge I.V. with prn adaptor inserted into left arm. Diluted definity 1.5ml given slow IV push to enhance endocardial definition. MMode/2D Measurements & Calculations LVIDd: 4.3 cm IVSd: 1.2 cm Ao root diam: 3.3 cm LVIDs: 3.2 cm LVPWd: 1.1 cm RVDd: 4.6 cm FS: 26.2 % LAV(MOD-bp): 104.6 ml LVAd ap4: 29.5 cm2 SV(MOD-sp4): 48.9 ml LAV(MOD-bp) Indexed: 63.8 ml/m2 LVLd ap4: 7.4 cm SI(MOD-sp4): 29.9 ml/m2 LAV(MOD-sp2): 110.2 ml EDV(MOD-sp4): 98.6 ml LAV(MOD-sp4): 99.4 ml EDV(sp4-el): 100.0 ml LVAs ap4: 20.0 cm2 LVLs ap4: 6.9 cm ESV(MOD-sp4): 49.6 ml ESV(sp4-el): 49.6 ml EF(MOD-sp4): 49.6 % EF(sp4-el): 50.4 % SV(sp4-el): 50.3 ml LA A4 area: 27.7 cm2 LA dimension(2D): 5.5 cm RA A4 area: 19.1 cm2 TAPSE: 1.4 cm Time Measurements MV dec time: 0.41 sec Doppler Measurements & Calculations MV E max carlos: 135.3 cm/sec Lat Peak E' Carlos: 8.3 cm/sec Med Peak E' Carlos: 8.8 cm/sec MV A max carlos: 31.3 cm/sec E/E' lat: 16.2 E/E' med: 15.4 MV E/A: 4.3 MV V2 max: 165.3 cm/sec MV P1/2t max carlos: 166.9 cm/sec Ao V2 max: 163.8 cm/sec MV max P.9 mmHg MV P1/2t: 115.5 msec Ao max P.7 mmHg MV V2 mean: 83.6 cm/sec MV dec slope: 423.4 cm/sec2 Ao V2 mean: 106.0 cm/sec MV mean P.6 mmHg MVA(P1/2t): 1.9 cm2 Ao mean P.3 mmHg MV V2 VTI: 46.5 cm Ao V2 VTI: 31.5 cm AV (velocity ratio): 0.55 AI max carlos: 315.1 cm/sec LV V1 max: 90.1 cm/sec PA V2 max: 71.2 cm/sec AI max P.7 mmHg LV V1 max P.3 mmHg AI dec slope: 145.9 cm/sec2 LV V1 mean P.8 mmHg AI P1/2t: 632.5 msec LV V1 mean: 63.8 cm/sec LV V1 VTI: 17.3 cm TR max carlos: 242.2 cm/sec TR max P.5 mmHg ECHO/Echo Complete W/ Contrast Interpretation Summary Normal LV size. Left ventricular systolic function is normal. Bioprosthetic mitral valve. Stage 3 diastolic dysfunction. The left atrium is moderately enlarged. The left ventricular ejection fraction is 55 %. Contrast injection was performed. Ordering Physician: Speedy Bacon Referring Physician: Speedy Bacon Performed By: Nikita Pro RCS
== END | disposition home or self-care (01) ==
LOC: CVS 12:53
PROVIDERS: PCP Family Medicine; Referring Provider Nurse Practitioner Family; Visit Provider Nurse Practitioner Family
DX: Z95.2 Presence of prosthetic heart valve (principal)
CPT/HCPCS: 93306; Q9957; A4216; C8929

== ENCOUNTER 2024-07-29 13:19 | Outpatient (RCR) | payer MEDICARE, SELFPAY ==
[2024-07-02 07:29] VITALS: BMI 26.7
[2024-07-14 12:27] LABS: Absolute Lymphocyte Count 0.98 X10^3/uL (0.83-4.51); Absolute Neutrophil Count 4.4 X10^3/uL (2.0-7.7); Basophil# 0.07 X10^3/uL; Basophil% 1.1 % (0-1); Eosinophil# 0.28 X10^3/uL; Eosinophils% 4.5 % (0-5); Hematocrit 35.8 % (37-47); Hemoglobin 11.9 g/dL (12.0-15.0); Lymphocyte # 0.98 X10^3/ul (0.83-4.51); Lymphocyte % 15.7 % (19-41); Mean Corp Hgb Conc 33.2 g/dL (32-36); Mean Corpuscular Hgb 29.5 pg (27.0-32.0); Mean Corpuscular Volume 88.6 fL (81-99); Mean Platelet Vol. 9.2 fl (6.2-12.0); NRBC Flagged by Analyzer 0 % (0-5); Neutrophil # 4.41 X10^3/uL (2.7-7.7); Neutrophil % 70.4 % (47-70); Platelet Count 226 K/mm3 (150-450); RBC Distribution Width CV 13.7 % (11.6-14.6); RBC Distribution Width SD 44.8 fl (35.1-43.9); Red Blood Count 4.04 M/mm3 (4.2-5.4); White Blood Count 6.3 K/mm3 (4.4-11.0)
[2024-07-14 12:48] LABS: International Normalized Ratio 3.1; Prothrombin Time (Protime)PT. 32.4 SECONDS (11.7-14.9)
[2024-07-21 13:08] LABS: Prothrombin Time Fingerstick 40.1 SEC (11.7-14.9)
[2024-07-21 13:46] LABS: International Normalized Ratio 3.9; Prothrombin Time (Protime)PT. 38.7 SECONDS (11.7-14.9)
[2024-07-29 13:31] LABS: INR Fingerstick 2.1
== END 2024-07-29 18:00 | disposition home or self-care (01) ==
LOC: LAB 13:19
PROVIDERS: PCP Family Medicine; Referring Provider Internal Medicine Cardiovascular Disease; Visit Provider Internal Medicine Cardiovascular Disease
DX: I48.0 Paroxysmal atrial fibrillation (principal); Z79.01 Long term (current) use of 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s
CPT/HCPCS: 36415; 36416; 85025; 85610

== ENCOUNTER 2024-08-25 15:33 | Outpatient (RCR) | payer MEDICARE, SELFPAY ==
[2024-08-01 22:43] VITALS: BMI 26.7
[2024-08-15 12:05] LABS: INR Fingerstick 2.2
[2024-08-25 18:07] LABS: Ferritin 96 ng/mL (22-378)
[2024-08-25 18:30] LABS: Prothrombin Time (Protime)PT. 23.1 SECONDS (11.7-14.9)
== END 2024-08-31 18:00 | disposition home or self-care (01) ==
LOC: LAB 15:33
PROVIDERS: PCP Family Medicine; Referring Provider Internal Medicine Cardiovascular Disease; Visit Provider Internal Medicine Cardiovascular Disease
DX: I48.0 Paroxysmal atrial fibrillation (principal); Z79.01 Long term (current) use of 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s; D64.9 Anemia, unspecified
CPT/HCPCS: 36415; 36416; 82728; 85610

== ENCOUNTER 2024-09-14 06:18 | Day surgery (SDC) | payer MEDICARE, SELFPAY ==
--- NOTE | 2024-09-12 16:49 | PAT.ANESEVAL ---
Pre-Assessment Diagnosis/Proposed Procedure Planned Operative Procedure(s): EGD, COLONOSCOPY Anesthesia History Anesthesia History - insurance consultant: Anesthesia History - insurance consultant Hx Hospitalization No 09/12/24 09:27 Any Problems With Anesthesia No 09/12/24 09:27 Cholinesterase deficiency No 09/12/24 09:27 You/Your Family Experience No 09/12/24 09:27 fever (hyperthermia) with Relationship Recent Exposure to Contagious No 09/10/23 08:51 Disease Does patient have nerve No 09/12/24 09:27 stimulator Patient instructed to have device shut off --Does patient have Pacemaker or ICD? When Was Last Pacemaker Check QUESTION #4 FULL TEXT: You/Your Family Experience fever (hyperthermia) with Anesthesia Last Oral Intake Last Oral intake: Last Oral Intake NPO since Meds taken in AM with sips of water? Meds patient instructed to take am of surgery PONV PONV - insurance consultant: PONV - insurance consultant Female Yes 09/12/24 09:27 HX of Motion Sickness No 09/12/24 09:27 HX of N/V After Surgery No 09/12/24 09:27 Non-Smoker Yes 09/12/24 09:27 Duration of Surgery greater No 09/12/24 09:27 than 60 minutes Number of Risk Factors 2 09/12/24 09:27 PONV Score Moderate Risk 09/12/24 09:27 Height & Weight Height & Weight: Anesthesia: Height & Weight Height 5 ft 2 in 08/01/24 08:09 Respiratory Assessment Respiratory Assessment - insurance consultant: Respiratory Tract Infection Hx - insurance consultant Hx Respiratory Tract Infection No 09/12/24 09:27 STOP Sleep Apnea STOP Sleep Apnea - insurance consultant: STOP Sleep Apnea - insurance consultant Hx Hypertension No 09/12/24 09:27 Hx Sleep Apnea Yes 09/12/24 09:27 CPAP Yes 09/12/24 09:27 BIPAP No 09/12/24 09:27 Do you snore loudly (louder than talking or can be heard Do you often feel tired/ fatigued/ sleepy during daytime? Has anyone observed you stop breathing during sleep? STOP Results Positive 09/12/24 09:27 QUESTION #5 FULL TEXT : Do you snore loudly (louder than talking or can be heard through closed doors)? Tobacco Use History Tobacco Use History - insurance consultant: Tobacco Use History - insurance consultant Tobacco Use Smoking Status Never smoker 09/12/24 09:27 Hx Tobacco Use No 09/12/24 09:27 Years Smoking Packs Smoked per Day Smoking Cessation Date was within the last 15 years Hx Smoking Cessation Date Hx Smoking Cessation Counseling Hematologic Medial History Hematologic Hx - insurance consultant: Hematologic Medical Hx - ethyl blender Hx of Blood Transfusion Yes 09/12/24 09:27 Hx of Transfusion in last 3 No 09/12/24 09:27 Months Date of Last Transfusion (if within last 3 months) Ever experience any problems No 09/12/24 09:27 with transfusion(s)? Specify any problems Hx of Preganancy in last 3 No 09/12/24 09:27 Months Nurse Filling Out Transfusion ARMAAN 09/12/24 09:27 & Questions: Date: 09/12/24 09/12/24 09:27 Time: 09:09/12/24 09:27 Patient unable to answer at this time (ie. confused, unrespo /Reproduction History /Reproductive History - insurance consultant: /Reproductive Hx- insurance consultant Hx Now No 09/12/24 09:27 Gestational Age (in weeks): EDC: Hx Hx Para Hx Section SAB No 09/12/24 09:27 [facility] Medical History (Updated 09/12/24 @ 09:41 by Patito Haines) Hematoma Skin ulcer of hip with fat layer exposed Loss of hearing Wears hearing aid Wears glasses Cancer High cholesterol Restless legs History of IBS Diverticulosis History of diverticulitis History of echocardiogram History of pacemaker Cardiology follow-up encounter Osteopenia GI bleed Non-smoker CPAP (continuous positive airway pressure) dependence Pacemaker 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, left USP current use of 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 Atrial fibrillation Neuropathic pain Restless leg syndrome Allergic rhinitis Depression Vitamin B12 deficiency Hyperlipidemia Vitamin D deficiency Osteoporosis 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 Presence of permanent cardiac pacemaker (~05/20/21) Depression GERD (gastroesophageal reflux disease) Sleep apnea Anticoagulated on warfarin Acute non-ST elevation myocardial infarction (NSTEMI) Hernia Endometrial cancer Neuropathy Mitral and aortic valve disease Atrial fibrillation Atrial fibrillation with RVR Home Medications ?Medication ?Instructions ?Recorded ?Last Taken ?Type cholecalciferol (vitamin D3) 25 1,000 unit PO DAILY REPLACEMENT 05/21/18 10/05/21 09:00 History mcg (1,000 unit) tablet (Vitamin D3) cyanocobalamin (vitamin B-12) 1,000 mcg sublingual DAILY 05/21/18 10/05/21 09:00 History 1,000 mcg sublingual tablet replacement citalopram 10 mg tablet 10 mg PO QHS depression 12/31/20 09/08/23 History biotin 1,000 mcg chewable tablet 1,000 mcg PO DAILY SUPPLEMENT 05/06/21 10/04/21 20:00 History ipratropium bromide 42 mcg (0.06 2 spray intranasal BID PRN NASAL 05/06/21 10/05/21 09:00 History %) nasal spray pramipexole 0.5 mg tablet 0.75 mg PO QHS RLS 05/06/21 09/09/23 History fexofenadine 180 mg tablet 180 mg PO DAILY PRN allergy 07/09/21 10/05/21 09:00 History (Allergy Relief (fexofenadine)) ascorbic acid (vitamin C) 500 mg 500 mg PO DAILY supplement 04/06/23 Unknown History tablet calcium 600 mg-D3 800 unit-mag11 1 tab PO DAILY REPLACEMENT 04/06/23 Unknown History 50 bg-wsvj-eilhcw-stephanie-s.borat tablet (Caltrate 600-D Plus Minerals) gabapentin 300 mg capsule 600 mg PO QHS 07/02/23 09/09/23 History lactase 3,000 unit tablet (Dairy 9,000 unit PO TID PRN lactose 09/09/23 Unknown History Relief) intolerance gabapentin 300 mg capsule 300 mg PO DAILY 11/26/23 Unknown History multivitamin 1 tab PO DAILY 11/26/23 Unknown History simvastatin 10 mg tablet 10 mg PO QHS cholesterol #90 tabs 06/02/24 Unknown Rx warfarin 1 mg tablet 1 mg PO .COMPLEX 09/12/24 Unknown History Allergy/AdvReac Type Severity Reaction Status Date / Time sertraline (From Zoloft) AdvReac Other Verified 09/12/24 09:18 Family History Mother Heart disease CAD (coronary artery disease) Hypertension Breast cancer Father Heart disease Bradycardia Bradycardia requiring pacemaker placement. Colon cancer Surgical History (Updated 09/12/24 @ 09:41 by Patito Haines) History of hysterectomy History of colonoscopy History of cardiac catheterization History of hernia surgery History of ankle surgery Hx of atrioventricular node ablation S/P MVR (mitral valve replacement) S/P left atrial appendage ligation S/P Maze operation for atrial fibrillation S/P left atrial appendage ligation History of hysterectomy for cancer History of cholecystectomy S/P ablation operation for arrhythmia History of maze procedure History of mitral valve replacement Social History household members: none Smoking Status: Never smoker alcohol intake: current alcohol intake frequency: holidays/special occasions only substance use type: does not use Audit: Pertinent Findings Pertinent Findings EKG Perinent findings: 07/25/2024 patient report?persistent atrial tachycardia/atrial fibrillation. 0 ventricular episode. 05/18/2021 atrial fibrillation. Prolonged QT. Echo (EF%) pertinent findings: 06/17/2024. EF is 55%. PASP is 27 mmHg. No aortic stenosis is noted. Heart catheterization pertinent findings: 05/09/2021. EF of 55%. Normal coronary arteries. Stable appearing bioprosthetic mitral valve apparatus. Stable appearing AtriCure clip. Recommendations medical therapy. Consult pertinent findings: 06/02/2024. Arleen [employer]. 1. Atrial fibrillation?chronic-continue warfarin for CVA protection. Latest device check shows no high ventricular rates. Continue with no rate limiting medications. 2. History of AV karin ablation-noted to be in complete heart block after procedure and required a pacemaker. 3. Pacemaker-functioning appropriately. 4. Status post mitral valve replacement?acute-repeat echo to ensure valve is stable. (See above) Recommendation Anesthesia Recommendation Anesthesia recommendation: OPTIMIZED for anesthesia
[2024-09-14] VITALS (8 sets, daily range): BP systolic 138–163; BP diastolic 61–73; PULSE 60–75; RESP 14–17; TEMP 36.2–36.4; O2SAT 96–99; BMI 24.4
[2024-09-14] MEDS: Lactated Ringers 1,000 ML 30 ML IV (06:58)
--- NOTE | 2024-09-14 07:20 | PCM.PRE.AN2 ---
Assessment & Plan Anesthesia* Anesthesia Assessment Anesthesia Assessment: Discussed sedation and/or anesthesia options, risks, benefits, and alternatives with patient/parents/legal guardian/POA. Questions invited. The patient/parents/legal guardian/POA seems to understand and agrees to proceed with anesthesia plan. Reviewed the physical assessment, medical history, allergy history and patient home medications list prior to surgery/procedure/anesthetic and documented any changes. Performed airway and anesthesia risk assessments. Anesthesia Focused Assessment* Temperature: 97.6 F Pulse Rate: 62 Blood Pressure: 138/61 Respiratory Rate: 17 Pulse Ox: 97 Focused Labs Anesthesia Preop lab: CBC WBC 6.3 K/mm3 (4.4-11.0) 07/14/24 11:32 07/14/24 RBC 4.04 M/mm3 (4.2-5.4) L 07/14/24 11:32 07/14/24 Hgb 11.9 g/dL (12.0-15.0) L 07/14/24 11:32 07/14/24 Hct 35.8 % (37-47) L 07/14/24 11:32 07/14/24 Plt Count 226 K/mm3 (150-450) 07/14/24 11:32 07/14/24 CHEMISTRY Potassium 3.9 mmol/L (3.5-5.1) 05/17/24 11:10 05/17/24 Sodium 141 mmol/L (136-145) 05/17/24 11:10 05/17/24 Magnesium 1.8 mg/dL (1.6-2.6) 10/05/21 20:30 10/05/21 BUN 22 mg/dL (7-18) H 05/17/24 11:10 05/17/24 Creatinine 1.05 mg/dL (0.55-1.02) H 05/17/24 11:10 05/17/24 Glucose 108 mg/dL (74-106) H 05/17/24 11:10 05/17/24 TSH 0.99 uIU/mL (0.358-3.74) 05/18/21 00:20 05/18/21 COAG PT 23.1 SECONDS (11.7-14.9) H 08/25/24 15:42 08/25/24 Pre-Assessment Diagnosis/Proposed Procedure Planned Operative Procedure(s): EGD, COLONOSCOPY Anesthesia History Anesthesia History - meat cutter: Anesthesia History - meat cutter Hx Hospitalization No 09/12/24 09:27 Any Problems With Anesthesia No 09/12/24 09:27 Cholinesterase deficiency No 09/12/24 09:27 You/Your Family Experience No 09/12/24 09:27 fever (hyperthermia) with Relationship Recent Exposure to Contagious No 09/14/24 06:47 Disease Does patient have nerve No 09/12/24 09:27 stimulator Patient instructed to have device shut off --Does patient have Pacemaker Yes 09/14/24 06:47 or ICD? When Was Last Pacemaker Check QUESTION #4 FULL TEXT: You/Your Family Experience fever (hyperthermia) with Anesthesia Last Oral Intake Last Oral intake: Last Oral Intake NPO since 22:00 09/14/24 06:47 Meds taken in AM with sips of No 09/14/24 06:47 water? Meds patient instructed to take am of surgery PONV PONV - meat cutter: PONV - meat cutter Female Yes 09/12/24 09:27 HX of Motion Sickness No 09/12/24 09:27 HX of N/V After Surgery No 09/12/24 09:27 Non-Smoker Yes 09/12/24 09:27 Duration of Surgery greater No 09/12/24 09:27 than 60 minutes Number of Risk Factors 2 09/12/24 09:27 PONV Score Moderate Risk 09/12/24 09:27 Height & Weight Height & Weight: Anesthesia: Height & Weight Height 5 ft 2 in 09/14/24 06:47 Weight: 60.6 kg 09/14/24 06:47 Body Mass Index (BMI) 24.4 09/14/24 06:47 Respiratory Assessment Respiratory Assessment - meat cutter: Respiratory Tract Infection Hx - meat cutter Hx Respiratory Tract Infection No 09/12/24 09:27 STOP Sleep Apnea STOP Sleep Apnea - meat cutter: STOP Sleep Apnea - meat cutter Hx Hypertension No 09/12/24 09:27 Hx Sleep Apnea Yes 09/12/24 09:27 CPAP Yes 09/12/24 09:27 BIPAP No 09/12/24 09:27 Do you snore loudly (louder than talking or can be heard Do you often feel tired/ fatigued/ sleepy during daytime? Has anyone observed you stop breathing during sleep? STOP Results Positive 09/12/24 09:27 QUESTION #5 FULL TEXT : Do you snore loudly (louder than talking or can be heard through closed doors)? 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 Specify any problems Hx of Preganancy in last 3 No 09/12/24 09:27 Months Nurse Filling Out Transfusion ARMAAN 09/12/24 09:27 & Questions: Date: 09/12/24 09/12/24 09:27 Time: 09:09/12/24 09:27 Patient unable to answer at this time (ie. confused, unrespo /Reproduction History /Reproductive History - meat cutter: /Reproductive Hx- meat cutter Hx Now No 09/12/24 09:27 Gestational Age (in weeks): EDC: Hx Hx Para Hx Section SAB No 09/12/24 09:27 Active Medications Active Medications: Current Medications Generic Name Dose Route Start Last Admin Trade Name Freq PRN Reason Stop Dose Admin Lactated Ringer's 1,000 mls @ 30 mls/hr 09/14/24 06:30 09/14/24 06:58 IV 30 mls/hr .[id number] CARMEL Administration PFSH Medical History (Updated 09/12/24 @ 09:41 by Patito Haines) Hematoma Skin ulcer of hip with fat layer exposed Loss of hearing Wears hearing aid Wears glasses Cancer High cholesterol Restless legs History of IBS Diverticulosis History of diverticulitis History of echocardiogram History of pacemaker Cardiology follow-up encounter Osteopenia GI bleed Non-smoker CPAP (continuous positive airway pressure) dependence Pacemaker 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, left shelter current use of 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 Atrial fibrillation Neuropathic pain Restless leg syndrome Allergic rhinitis Depression Vitamin B12 deficiency Hyperlipidemia Vitamin D deficiency Osteoporosis 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 Presence of permanent cardiac pacemaker (~05/20/21) Depression GERD (gastroesophageal reflux disease) Sleep apnea Anticoagulated on warfarin Acute non-ST elevation myocardial infarction (NSTEMI) Hernia Endometrial cancer Neuropathy Mitral and aortic valve disease Atrial fibrillation Atrial fibrillation with RVR Home Medications ?Medication ?Instructions ?Recorded ?Last Taken ?Type cholecalciferol (vitamin D3) 25 1,000 unit PO DAILY REPLACEMENT 05/21/18 10/05/21 09:00 History mcg (1,000 unit) tablet (Vitamin D3) cyanocobalamin (vitamin B-12) 1,000 mcg sublingual DAILY 05/21/18 09/13/24 History 1,000 mcg sublingual tablet replacement citalopram 10 mg tablet 10 mg PO QHS depression 12/31/20 09/13/24 History biotin 1,000 mcg chewable tablet 1,000 mcg PO DAILY SUPPLEMENT 05/06/21 09/13/24 History ipratropium bromide 42 mcg (0.06 2 spray intranasal BID PRN NASAL 05/06/21 09/13/24 History %) nasal spray pramipexole 0.5 mg tablet 0.75 mg PO QHS RLS 05/06/21 09/13/24 History fexofenadine 180 mg tablet 180 mg PO DAILY PRN allergy 07/09/21 10/05/21 09:00 History (Allergy Relief (fexofenadine)) ascorbic acid (vitamin C) 500 mg 500 mg PO DAILY supplement 04/06/23 09/13/24 History tablet calcium 600 mg-D3 800 unit-mag11 1 tab PO DAILY REPLACEMENT 04/06/23 09/13/24 History 50 el-icsq-psfizp-stephanie-s.borat tablet (Caltrate 600-D Plus Minerals) gabapentin 300 mg capsule 600 mg PO QHS 07/02/23 09/13/24 History lactase 3,000 unit tablet (Dairy 9,000 unit PO TID PRN lactose 09/09/23 09/13/24 History Relief) intolerance gabapentin 300 mg capsule 300 mg PO DAILY 11/26/23 09/13/24 History multivitamin 1 tab PO DAILY 11/26/23 09/13/24 History simvastatin 10 mg tablet 10 mg PO QHS cholesterol #90 tabs 06/02/24 09/13/24 Rx warfarin 1 mg tablet 1 mg PO .COMPLEX 09/12/24 09/09/24 History Allergy/AdvReac Type Severity Reaction Status Date / Time sertraline (From Zoloft) AdvReac Other Verified 09/12/24 09:18 Family History Mother Heart disease CAD (coronary artery disease) Hypertension Breast cancer Father Heart disease Bradycardia Bradycardia requiring pacemaker placement. Colon cancer Surgical History (Updated 09/12/24 @ 09:41 by Patito Haines) History of hysterectomy History of colonoscopy History of cardiac catheterization History of hernia surgery History of ankle surgery Hx of atrioventricular node ablation S/P MVR (mitral valve replacement) S/P left atrial appendage ligation S/P Maze operation for atrial fibrillation S/P left atrial appendage ligation History of hysterectomy for cancer History of cholecystectomy S/P ablation operation for arrhythmia History of maze procedure History of mitral valve replacement Social History household members: none Smoking Status: Never smoker alcohol intake: current alcohol intake frequency: holidays/special occasions only substance use type: does not use Review of Systems (Anesthesia) ROS Narrative System reviewed and no additional complaints, except as documented.
--- NOTE | 2024-09-14 07:30 | COLBX_PTH ---
PATIENT: GLORIA MATHEW LOC: EN U#:[id number] AGE/SX: 83/F ROOM: RE09/14/[address]: Dr. Avtar Desir MD : [id number] BED: DIS: 09/14/2024 SPEC #: [id number] RECD: 09/14/24 14:12 STATUS: ALLISON NAVARRO #: [id number] JANUARY: 09/14/24 07:[address]: Avtar Desir DEPT: SURGICAL PATHOLOGY RECD BY: Kel Polanco ENTERED: 09/14/24 14:38 SP TYPE: COLON BX OTHR DR: Samantha Anglin MD Tissues: A - Duodenum, NOS B - COLON BIOPSY C - Ascending colon D - Sigmoid colon biopsy Procedures: Surgery Specimen Level IV HEADER OPERATION: Colonoscopy with polyp biopsy and bipolar probe to site, EGD PRE-OP DIAGNOSIS: Bright red blood per rectum, history of adenomatous polyp of colon, history of melena TISSUE SUBMITTED: A- Duodenal bulb mucosa biopsy, B- Fundal polyps - multiple, C- Ascending colon polyp biopsy, D- Sigmoid polyp biopsy MICROSCOPIC DIAGNOSIS A. Small bowel, duodenal bulb, biopsy: * Gastric-type mucosa consistent with gastric metaplasia/heterotopia. * Scant small intestinal mucosa noted. B. Stomach, fundal polyps, biopsy: * Fundic gland polyp, multiple fragments. C. Ascending colon, polyp, biopsy: * Tubular adenoma. D. Sigmoid colon, polyp, biopsy: * Hyperplastic polyp. MICROSCOPIC DESCRIPTION Slides are reviewed. GROSS DESCRIPTION A. Received in formalin in a container labeled with the patient's name, date of , and duodenal bulb mucosa biopsy is a 0.4 x 0.3 x 0.2 cm fragment of mendoza-pink mucosal tissue. Submitted in toto in A1. B. Received in formalin in a container labeled with the patient's name, date of , and fundal polyps multiple are multiple mendoza-pink fragments of mucosal tissue measuring 1.7 x 1.0 x 0.3 cm in aggregate. Submitted in toto in B1. C. Received in formalin in a container labeled with the patient's name, date of , and ascending colon polyp biopsy are 2 mendoza-pink fragments of mucosal tissue measuring 0.2 x 0.1 x 0.1 cm and 0.5 x 0.2 x 0.2 cm. Submitted in toto in C1. D. Received in formalin in a container labeled with the patient's name, date of , and sigmoid polyp biopsy are 3 small mendoza-pink fragments of mucosal tissue each measuring 0.2 x 0.2 x 0.2 cm. Submitted in toto in D1. SMB 09-14-2024 CPT:60242b5
--- NOTE | 2024-09-14 07:31 | PRE.ANES_ITS ---
ASA Classification* ASA Classification ASA Classification: 3 Assessment & Plan Anesthesia* Anesthesia Assessment Anesthesia Assessment: Discussed sedation and/or anesthesia options, risks, benefits, and alternatives with patient/parents/legal guardian/POA. Questions invited. The patient/parents/legal guardian/POA seems to understand and agrees to proceed with anesthesia plan. Reviewed the physical assessment, medical history, allergy history and patient home medications list prior to surgery/procedure/anesthetic and documented any changes. Performed airway and anesthesia risk assessments. Anesthesia Type Anesthesia Type: MAC History Source History Obtained from:: Patient and Chart Anesthesia Focused Assessment* Temperature: 97.6 F Pulse Rate: 62 Blood Pressure: 138/61 Respiratory Rate: 17 Pulse Ox: 97 Oxygen Delivery Method: Room Air Airway Assessment Mouth opens: >3 cm Mallampati Score: II Teeth Condition: Intact Focused Labs Anesthesia Preop lab: CBC WBC 6.3 K/mm3 (4.4-11.0) 07/14/24 11:07/14/24 RBC 4.04 M/mm3 (4.2-5.4) L 07/14/24 11:32 07/14/24 Hgb 11.9 g/dL (12.0-15.0) L 07/14/24 11:32 5 Hct 35.8 % (37-47) L 07/14/24 11:32 07/14/24 Plt Count 226 K/mm3 (150-450) 07/14/24 11:32 07/14/24 CHEMISTRY Potassium 3.9 mmol/L (3.5-5.1) 05/17/24 11:10 05/17/24 Sodium 141 mmol/L (136-145) 05/17/24 11:10 05/17/24 Magnesium 1.8 mg/dL (1.6-2.6) 10/05/21 20:30 10/05/21 BUN 22 mg/dL (7-18) H 05/17/24 11:10 05/17/24 Creatinine 1.05 mg/dL (0.55-1.02) H 05/17/24 11:10 Glucose 108 mg/dL (74-106) H 05/17/24 11:10 05/17/24 TSH 0.99 uIU/mL (0.358-3.74) 05/18/21 00:20 COAG PT 23.1 SECONDS (11.7-14.9) H 08/25/24 15:42 08/03 08/26 Pre-Assessment Diagnosis/Proposed Procedure Planned Operative Procedure(s): EGD, COLONOSCOPY Anesthesia History 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 When Was Last Pacemaker Check QUESTION #4 FULL TEXT: You/Your Family Experience fever (hyperthermia) with Anesthesia Any additional information?: No Last Oral Intake Last Oral intake: Last Oral Intake NPO since 22:00 09/14/24 06:47 Meds taken in AM with sips of No 09/14/24 06:47 water? Meds patient instructed to take am of surgery Any additional information?: No PONV PONV - plumbing assembler installer: PONV - plumbing assembler installer Female Yes 09/12/24 09:27 HX of Motion Sickness No 09/12/24 09:27 HX of N/V After Surgery No 09/12/24 09:27 Non-Smoker Yes 09/12/24 09:27 Duration of Surgery greater No 09/12/24 09:27 than 60 minutes Number of Risk Factors 2 09/12/24 09:27 PONV Score Moderate Risk 09/12/24 09:27 Any additional information?: No Height & Weight Height & Weight: Anesthesia: Height & Weight Height 5 ft 2 in 09/14/24 06:47 Weight: 60.6 kg 09/14/24 06:47 Body Mass Index (BMI) 24.4 09/14/24 06:47 Respiratory Assessment Respiratory Assessment - plumbing assembler installer: Respiratory Tract Infection Hx - plumbing assembler installer Hx Respiratory Tract Infection No 09/12/24 09:27 Any additional information?: No STOP Sleep Apnea STOP Sleep Apnea - plumbing assembler installer: STOP Sleep Apnea - plumbing assembler installer Hx Hypertension No 09/12/24 09:27 Hx Sleep Apnea Yes 09/12/24 09:27 CPAP Yes 09/12/24 09:27 BIPAP No 09/12/24 09:27 Do you snore loudly (louder than talking or can be heard Do you often feel tired/ fatigued/ sleepy during daytime? Has anyone observed you stop breathing during sleep? STOP Results Positive 09/12/24 09:27 QUESTION #5 FULL TEXT : Do you snore loudly (louder than talking or can be heard through closed doors)? 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 Specify any problems Hx of Preganancy in last 3 No 09/12/24 09:27 Months Nurse Filling Out Transfusion MGRIFFITH 09/12/24 09:27 & Questions: Date: 09/12/24 09/12/24 09:27 Time: :09/12/24 09:27 Patient unable to answer at this time (ie. confused, unrespo Any additional information?: No /Reproduction History /Reproductive History - plumbing assembler installer: /Reproductive Hx- plumbing assembler installer Hx Now No 09/12/24 09:27 Gestational Age (in weeks): EDC: Hx Hx Para Hx Section SAB No 09/12/24 09:27 Any additional information?: No Active Medications Active Medications: Current Medications Generic Name Dose Route Start Last Admin Trade Name Freq PRN Reason Stop Dose Admin Lactated Ringer's 1,000 mls @ 30 mls/hr 09/14/24 06:30 09/14/24 06:58 IV 30 mls/hr .[id number] CARMEL Administration PFSH Medical History Hematoma Skin ulcer of hip with fat layer exposed Loss of hearing Wears hearing aid Wears glasses Cancer High cholesterol Restless legs History of IBS Diverticulosis History of diverticulitis History of echocardiogram History of pacemaker Cardiology follow-up encounter Osteopenia GI bleed Non-smoker CPAP (continuous positive airway pressure) dependence Pacemaker 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, left detention current use of 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 Atrial fibrillation Neuropathic pain Restless leg syndrome Allergic rhinitis Depression Vitamin B12 deficiency Hyperlipidemia Vitamin D deficiency Osteoporosis 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 Presence of permanent cardiac pacemaker (~05/20/21) Depression GERD (gastroesophageal reflux disease) Sleep apnea Anticoagulated on warfarin Acute non-ST elevation myocardial infarction (NSTEMI) Hernia Endometrial cancer Neuropathy Mitral and aortic valve disease Atrial fibrillation Atrial fibrillation with RVR Home Medications ?Medication ?Instructions ?Recorded ?Last Taken ?Type cholecalciferol (vitamin D3) 25 1,000 unit PO DAILY RE PLACEMENT 05/21/18 10/05/21 09:00 History mcg (1,000 unit) tablet (Vitamin D3) cyanocobalamin (vitamin B-12) 1,000 mcg sublingual MAUREEN LY 05/21/18 09/13/24 History 1,000 mcg sublingual tablet replacement citalopram 10 mg tablet 10 mg PO QHS depression 12/04 009/13/24 History biotin 1,000 mcg chewable tablet 1,000 mcg PO DAILY ALVAREZ PPLEMENT 05/06/21 09/13/24 History ipratropium bromide 42 mcg (0.06 2 spray intranasal BI D PRN NASAL 05/06/21 09/13/24 History %) nasal spray pramipexole 0.5 mg tablet 0.75 mg PO QHS RLS 05/06/21 09/13/24 History fexofenadine 180 mg tablet 180 mg PO DAILY PRN allergy 07/09/21 10/05/21 09:00 History (Allergy Relief (fexofenadine)) ascorbic acid (vitamin C) 500 mg 500 mg PO DAILY suppl ement 04/06/23 09/13/24 History tablet calcium 600 mg-D3 800 unit-mag11 1 tab PO DAILY REPLAC EMENT 04/06/23 09/13/24 History 50 kq-psvj-cseylw-stephanie-s.borat tablet (Caltrate 600-D Plus Minerals) gabapentin 300 mg capsule 600 mg PO QHS 07/02/2309/13 History lactase 3,000 unit tablet (Dairy 9,000 unit PO TID PRN lactose 09/09/23 09/13/24 History Relief) intolerance gabapentin 300 mg capsule 300 mg PO DAILY 11/26/23 History multivitamin 1 tab PO DAILY 11/26/2309/01 History simvastatin 10 mg tablet 10 mg PO QHS cholesterol #90 tabs 06/02/24 09/13/24 Rx warfarin 1 mg tablet 1 mg PO .COMPLEX 09/12/24 History Allergy/AdvReac Type Severity Reaction Status Date / Time sertraline (From Zoloft) AdvReac Other Verified 09/12/24 09:18 Family History Mother Heart disease CAD (coronary artery disease) Hypertension Breast cancer Father Heart disease Bradycardia Bradycardia requiring pacemaker placement. Colon cancer Surgical History History of hysterectomy History of colonoscopy History of cardiac catheterization History of hernia surgery History of ankle surgery Hx of atrioventricular node ablation S/P MVR (mitral valve replacement) S/P left atrial appendage ligation S/P Maze operation for atrial fibrillation S/P left atrial appendage ligation History of hysterectomy for cancer History of cholecystectomy S/P ablation operation for arrhythmia History of maze procedure History of mitral valve replacement Social History household members: none Smoking Status: Never smoker alcohol intake: current alcohol intake frequency: holidays/special occasions only substance use type: does not use Review of Systems (Anesthesia) ROS Narrative System reviewed and no additional complaints, except as documented.
--- NOTE | 2024-09-14 07:46 | HP.PCM_ITS ---
History and Physical Date of Admission: 09/14/24 MR#: [id number] Acct: [id number] Name: GLORIA MATHEW Rep #: [id number] : 1940 Provider: Dr. Avtar Desir MD Age/Sex: 83/F Location: [facility] Status: Signed Intake Vital Signs 06/02/2509:24 08/02/2507:09 Height 5 ft 2 in 5 ft 2 in Weight: 140 lb 6 oz BMI 25.7 BP 138/73 H Blood Pressure Location Rt brachial Position Sitting Respiration 18 Pulse 69 Pulse Source Monitor Temp 97.4 F L Temp Source Temporal Pulse Oximetry (%) 98 Oxygen Delivery Method room air Intake Visit Reasons: RECALL LETTER/RECTAL BLEEDING Chief Complaint: recall letter/ rectal bleeding Accompanied by: Sister Is patient in pain?: No Allergies sertraline (From Zoloft) Adverse Reaction (Verified 08/01/24 08:10) Other Medications ?Medication ?Instructions ?Recorded ?Confirmed ?Type cholecalciferol (vitamin D3) 25 1,000 unit PO DAILY REPLACEMENT 05/21/18 08/01/24 History mcg (1,000 unit) tablet (Vitamin D3) cyanocobalamin (vitamin B-12) 1,000 mcg sublingual DAILY 05/21/1807/04 Hi story 1,000 mcg sublingual tablet replacement citalopram 10 mg tablet 10 mg PO QHS depression 12/31/20 5 History biotin 1,000 mcg chewable tablet 1,000 mcg PO DAILY SUPPLEMENT 05/06/21 0 08/01/24 History ipratropium bromide 42 mcg (0.06 2 spray intranasal BID PRN NASAL 2 08/01/24 History %) nasal spray pramipexole 0.5 mg tablet 0.75 mg PO QHS RLS 05/06/21 08/01/24 His tory fexofenadine 180 mg tablet 180 mg PO DAILY PRN allergy 07/09/21 History (Allergy Relief (fexofenadine)) acetaminophen 500 mg tablet 1,000 mg (2 x 500 mg) PO Q6H PRN 2 08/01/24 Rx PRN Pain Score 1-3 #0 tabs ascorbic acid (vitamin C) 500 mg 500 mg PO DAILY supplement 04/06/2307/04 History tablet calcium 600 mg-D3 800 unit-mag11 1 tab PO DAILY REPLACEMENT 04/06/2307/[address]-xbnr-mixpjc-stephanie-s.borat tablet (Caltrate 600-D Plus Minerals) gabapentin 300 mg capsule 600 mg PO QHS 07/02/23 08/01/24 History lactase 3,000 unit tablet (Dairy 9,000 unit PO TID PRN lactose 09/09/23 0 08/01/24 History Relief) intolerance ferrous sulfate [Iron (ferrous 325 mg PO TID 11/26/23 08/01/24 History sulfate)] folic acid 50 mg PO DAILY 11/26/23 08/01/24 History gabapentin 300 mg capsule 300 mg PO DAILY 11/26/23 08/01/24 Histor y multivitamin 1 tab PO DAILY 11/26/23 08/01/24 History simvastatin 10 mg tablet 10 mg PO QHS cholesterol #90 tabs 08/01/24 Rx warfarin 1 mg tablet 1 mg PO .COMPLEX #120 TABLETS 06/02/24 0 08/01/24 Rx Have you fallen in the past year?: No PFSH Medical History Hematoma Skin ulcer of hip with fat layer exposed Loss of hearing Wears hearing aid Wears glasses Cancer High cholesterol Restless legs History of IBS Diverticulosis History of diverticulitis History of echocardiogram History of pacemaker Cardiology follow-up encounter Osteopenia GI bleed Non-smoker CPAP (continuous positive airway pressure) dependence Pacemaker 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, left 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 of 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 Atrial fibrillation Neuropathic pain Restless leg syndrome Allergic rhinitis Depression Vitamin B12 deficiency Hyperlipidemia Vitamin D deficiency Osteoporosis 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 Presence of permanent cardiac pacemaker (~05/20/21) Depression GERD (gastroesophageal reflux disease) Sleep apnea Anticoagulated on warfarin Acute non-ST elevation myocardial infarction (NSTEMI) Hernia Endometrial cancer Neuropathy Mitral and aortic valve disease Atrial fibrillation Atrial fibrillation with RVR Surgical History S/P MVR (mitral valve replacement) History of cardiac catheterization History of hernia surgery History of ankle surgery Hx of atrioventricular node ablation S/P left atrial appendage ligation S/P Maze operation for atrial fibrillation S/P left atrial appendage ligation History of hysterectomy for cancer History of cholecystectomy S/P ablation operation for arrhythmia History of maze procedure History of mitral valve replacement Family History Mother Heart disease CAD (coronary artery disease) Hypertension Breast cancerFather Heart disease Bradycardia Bradycardia requiring pacemaker placement. Colon cancer Social History household members: none Smoking Status: Never smoker alcohol intake: current alcohol intake frequency: holidays/special occasions only substance use type: does not use HPI HPI HPI: Patient 83-year-old female who presents on recall notice for repeat colonoscopy after last colonoscopy 09/11/2023 with me showed rectal tubular adenoma. She presents today with her sister. She reports that she had another episode of bright red blood per rectum last month which she recalls began on 06/16/2024. She does note that this was bright red in character and shows me several pictures of the clots that were expelled. She insists that her bowel movements during this time were soft every time and of the diarrhea type. Associated with this manifestation of bleeding she notes some generalized lower abdominal cramping. During this experience she saw her primary care provider who ordered lab testing and found some anemia. She also reports that her provider recommended she consider an upper scope in conjunction with a repeat colonoscopy after reviewing one of her pictures that seem to show possible melanic change. Patient now shares that her bowel movements have returned to her normal which she reports is 3-4 stools in the morning consisting of soupy consistency with little clumps. Her sister questions whether or not Ms. 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 For her part Ms. Mathew denies any persistent lightheadedness, weakness, tiredness, or dizziness. She denies any general major health updates. Specifically she denies any onset of reflux or epigastric discomfort. Below is recapitulated from patient's prior visit for ease of review: Patient is a 82-year-old female who presents for need to schedule diagnostic colonoscopy secondary to recent admission for suspected diverticulitis and acute lower GI bleed. Specifically, patient follows up from an inpatient admission that included 07/02/2023. She is referred from Dr. Anglin. She notes that her symptoms of vomiting and bleeding remitted spontaneously through conservative measures. She shares she is uncertain about any abdominal pain complaints, but according to her PCP she did have some abdominal pain that resolved with outpatient Levaquin therapy for diverticulitis. She also shares she is unsure whether this was connected to a bout of what she terms food poisoning couple weeks prior to admission where she experienced uncontrollable diarrhea. She confirms that her bowel movements now are nonbloody and occur 1-3 times per day. She denies any straining. Total toilet time is less than 5 minutes. She is not using any fiber supplements but her diet is mild to moderately high in fiber including foods such as fruits and dry cereals. She also shares that she is making intentional effort at consuming more water. She denies constipation but has had some intermittent diarrhea. Patient has had prior colonoscopy. She brings a transcript of the results from 2013 where she underwent a polypectomy and biopsy, but is unable to recall results of procedures even further remotely. Patient has a family history of colon cancer in her father (who is diagnosed at the age of 90) and her aunt (who also was diagnosed late in life). The patient's weight is stable. The patient is prescribed 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s/blood thinners. Specifically she is prescribed warfarin for history of A-fib and mitral valve replacement. Mrs. Mathew also has a history of uterine cancer that was treated with radiation therapy in 1990. She shares that she has had some off target effects of the radiation with respect to her GI habits. Relevant prior abdominal surgical history includes: Laparoscopic cholecystectomy and umbilical hernia repair. Patient does not have a significant history of GERD/heartburn. ROS General General: No weight change, appetite, fatigue, colon cancer, breast cancer or weakness HEENT HEENT: No difficulty swallowing, eye injury, eye surgery, swollen glands or hoarseness Endo Endocrine: No thyroid disease, diabetes mellitus, thyroid cancer, Hair loss, heat intolerance or cold intolerance Skin Skin: No rash or changing moles Musc Musculoskeletal: Yes arthritis; No back problems, rheumatoid arthritis, gout or joint pain Cardio Cardiovascular: Yes pacemaker and heart disease; No murmur, atrial fibrillation, high blood pressure, heart attack, heart stent, palpitations, shortness of breath with exertion or chest pain Psych Psychiatric: No depression, anxiety or hearing voices Resp Respiratory: No shortness of breath, Yes sleep apnea, No cough, No COPD, No asthma, No emphysema and No wheezing Gastro Gastrointestinal: Yes abdominal pain, No nausea or vomiting, Yes diarrhea, No constipation, No blood in stool, No acid reflux, Yes hemorrhoids, No ulcers, No gallbladder problem and No black,tarry stools [place] Hematologic: Yes blood thinners, No blood disorders, No bleeding, No anemia and No blood clots Neuro Neurologic: No system reviewed and no additional complaints, except as documented, No as per HPI, No abnormal gait, No abnormal hearing, No abnormal movements, No abnormal speech, No behavioral changes, No burning sensations, No confusion, No convulsions, No disequilibrium, No dizziness, No localized weakness, No frequent falls, No headache(s), No lack of coordination, No loss of vision, No memory loss, Yes numbness, No other visual disturbances, No radicular pain, No restless legs, No sensory deficit, No syncope, Yes tingling, No tremor(s), No weakness and No other Exam Const General: cooperative, comfortable and no acute distress Other: Slight pallor to complexion Resp Effort & Inspection: normal respiratory effort GI Other: Well-healed midline laparotomy scar, no visible herniation, nondistended, soft, nontender to palpation x 4 quadrants Assessment and Plan Assessment and Plan (1) Bright red blood per rectum: Status: Acute Comment: Patient with recent complaints of hematochezia. Based on her history it is unclear to me whether this represents likely bleeding from diverticular disease or from hemorrhoids (as patient admits that she has had some itching in bleeding when scratching her anus) thus I have recommended proceeding for diagnostic colonoscopy as above, but suggested we consented her for possible endoscopic banding at the same time. After the procedure was described along with its risks she states that she is in agreement. As above, we will need to make sure patient's warfarin is held in anticipation of this possibility as well. Update 08/01/2024: Once again patient had an experience of hematochezia that was self-limited in June of this year. The pictures patient shows are clearly those of hematochezia with bright red clots depicted. Based on this, my own encounter with patient's severe diverticulosis at her colonoscopy last year, and her descriptions of generalized lower abdominal quadrant cramping I am most suspicious for recurrent diverticular bleed. However, patient relates that her PCP is interested in EGD as 1 picture he was shown appeared to demonstrate melena. Plan: Colonoscopy with standard prep to evaluate for source of bleeding, patient warned that many times if due to a diverticular source no etiology is found at the time of endoscopy. (2) History of adenomatous polyp of colon: Status: Acute Comment: Patient with history of rectosigmoid polyp that was 2 cm in size and pathologically reported as a tubular adenoma. Interested in revisiting this area that was previously tattooed to ensure completeness of resection. Plan: Colonoscopy with standard prep to reevaluate side of rectal sigmoid polyp removal last scope September 2023. Patient will require a hold of warfarin prior to procedure. Will see clearance through cardiology. (3) History of melena: Status: Acute Comment: Per history patient had some darker stools with recent bleeding episode. This was not demonstrated in the pictures provided to me, but given the significant drop in patient's hemoglobin and the concerns from another provider I am happy to oblige the request for EGD. Notably, patient does deny any history of reflux or heartburn. Plan: EGD in conjunction with colonoscopy as above. Once again we will need to hold warfarin for probable H. pylori biopsy and any others that are indicated. I have examined the patient and the H&P has been reviewed. There are no clinical changes since date of exam. Patient reports no further issues with anemia and denies any symptoms. Confirms she completed prep for today's procedure. She also confirms she held her Coumadin appropriately but we are still awaiting a formal INR check for proceeding. Her abdominal exam is benign. I discussed adding possible hemorrhoid banding to her consent and she states that she would like anything done as indicated provides this additional consent. Provided her INR is reasonable we will plan to proceed to endoscopy suite.
[2024-09-14 08:13] LABS: International Normalized Ratio 1.5; Prothrombin Time (Protime)PT. 18.2 SECONDS (11.7-14.9)
--- NOTE | 2024-09-14 10:01 | PCM.POST.ANE ---
Anesthesia: Postop Eval I Current Vital Signs Temperature: 97.1 F Pulse Rate: 60 Blood Pressure: 143/67 Respiratory Rate: 16 Pulse Ox: 99 Assessment Airway patent: Yes Spontaneous unlabored respirations: Yes nausea: No Vomiting: No Anesthesia Complication: No Fluid Hydration Crystalloid volume administer (ml): 800 Total IV fluid infused: 800 Progress Note Anesthesia document: Postop Eval 1 completed: Yes
--- NOTE | 2024-09-14 10:02 | OP.EGD_ITS ---
Patient Name: Laxmi Braxton Procedure Date: 09/14/2024 7:48 AM Date of : 1940 Age: 83 Procedure: Upper GI endoscopy Indications: Iron deficiency anemia, Suspected esophageal reflux Providers: Avtar Desir MD Referring MD: Samantha Anglin Md Medicines: See the Anesthesia note for documentation of the administered medications Patient Profile: Refer to note in patient chart for documentation of history and physical. Complications: No immediate complications. Estimated blood loss: Minimal. Procedure: Pre-Anesthesia Assessment: - The heart rate, respiratory rate, oxygen saturations, blood pressure, adequacy of pulmonary ventilation, and response to care were monitored throughout the procedure. After obtaining informed consent, the endoscope was passed under direct vision. Throughout the procedure, the patient's blood pressure, pulse, and oxygen saturations were monitored continuously. The Endoscope was introduced through the mouth, and advanced to the second part of duodenum. The upper GI endoscopy was somewhat difficult due to excessive bleeding. Successful completion of the procedure was aided by controlling the bleeding. The patient tolerated the procedure fairly well. Scope In: 8:22:34 AM Scope Out: 8:59:49 AM Total Procedure Duration Time 0 hours 37 minutes 15 seconds Findings: A few 2 to 4 mm semi-sessile polyps with no bleeding were found in the duodenal bulb. Biopsies were taken with a cold forceps for histology. Estimated blood loss: 3 mL requiring treatment with placement of hemostatic clip(s). Localized erythematous mucosa without bleeding was found in the gastric antrum. No biopsies or other specimens were collected for this exam. Multiple 2 to 5 mm pedunculated and sessile polyps with no bleeding and no stigmata of recent bleeding were found in the gastric fundus. The polyp was removed with a hot snare. Resection and retrieval were complete using a suction (via the working channel). [Clip Device]. The Z-line was irregular and was found 41 cm from the incisors. No biopsies or other specimens were collected for this exam. A medium-sized hiatal hernia was present. No biopsies or other specimens were collected for this exam. The cardia and gastric fundus were normal on retroflexion. Impression: - A few duodenal polyps. Biopsied. - Erythematous mucosa in the antrum. No specimens collected. - Multiple gastric polyps. Resected and retrieved. - Z-line irregular, 41 cm from the incisors. No specimens collected. - Medium-sized hiatal hernia. No specimens collected. Recommendation: - Discharge patient to home (via wheelchair). - Full liquid diet for 2 days. - Resume in 2 days at prior dose in 2 days. Refer to managing physician for further adjustment of therapy. - Await pathology results. - Telephone my office for pathology results in 1 week. Procedure Code(s): --- Professional --- 38078, Esophagogastroduodenoscopy, flexible, transoral; with removal of tumor(s), polyp(s), or other lesion(s) by snare technique 17482, 59, Esophagogastroduodenoscopy, flexible, transoral; with biopsy, single or multiple Diagnosis Code(s): --- Professional --- K31.7, Polyp of stomach and duodenum K31.89, Other diseases of stomach and duodenum K22.89, Other specified disease of esophagus K44.9, Diaphragmatic hernia without obstruction or gangrene D50.9, Iron deficiency anemia, unspecified CPT copyright 2021 [employer]. All rights reserved. The codes documented in this report are preliminary and upon administrative resident review may be revised to meet current compliance requirements. Avtar Desir MD 09/14/2024 10:01:12 AM This report has been signed electronically. Number of Addenda: 0 Note Initiated On: 09/14/2024 7:48 AM
--- NOTE | 2024-09-14 10:02 | OP.CCLET_ITS ---
09/14/2024 Samantha Anglin Md Re : Upper GI endoscopy procedure for Laxmi Braxton Dear Derrek This procedure was performed on Saturday, September 14, 2024. My impressions and recommendations are as follows: Impressions : - A few duodenal polyps. Biopsied. - Erythematous mucosa in the antrum. No specimens collected. - Multiple gastric polyps. Resected and retrieved. - Z-line irregular, 41 cm from the incisors. No specimens collected. - Medium-sized hiatal hernia. No specimens collected. Recommendations : - Discharge patient to home (via wheelchair). - Full liquid diet for 2 days. - Resume in 2 days at prior dose in 2 days. Refer to managing physician for further adjustment of therapy. - Await pathology results. - Telephone my office for pathology results in 1 week. My findings are described in the full procedure note, which is enclosed. If I can be of further assistance, please feel free to contact me at Doctor phone number(s): , Work: . Sincerely, Avtar Desir MD 09/14/2024 10:01:12 AM This report has been signed electronically.
--- NOTE | 2024-09-14 10:08 | OP.COLON_ITS ---
Patient Name: Laxmi Braxton Procedure Date: 09/14/2024 9:02 AM Date of : 1940 Age: 83 Procedure: Colonoscopy Indications: Hematochezia, Melena, Iron deficiency anemia Providers: Avtar Desir MD Referring MD: Samantha Anglin Md Medicines: See the Anesthesia note for documentation of the administered medications Patient Profile: Refer to note in patient chart for documentation of history and physical. Last Colonoscopy: 1 year ago. Complications: No immediate complications. Estimated blood loss: Minimal. Procedure: Pre-Anesthesia Assessment: - The heart rate, respiratory rate, oxygen saturations, blood pressure, adequacy of pulmonary ventilation, and response to care were monitored throughout the procedure. After I obtained informed consent, the scope was passed under direct vision. Throughout the procedure, the patient's blood pressure, pulse, and oxygen saturations were monitored continuously. The was introduced through the anus and advanced to the cecum, identified by the appendiceal orifice, IC valve and transillumination. The colonoscopy was technically difficult and complex due to multiple diverticula in the colon. Successful completion of the procedure was aided by withdrawing and reinserting the scope. The patient tolerated the procedure fairly well. The quality of the bowel preparation was adequate to identify polyps greater than 5 mm in size. Scope In: 9:03:41 AM Scope Withdrawal Time 0 hours 32 minutes 55 seconds Scope Out: 9:49:56 AM Total Procedure Duration Time 0 hours 46 minutes 15 seconds Findings: The perianal and digital rectal examinations were normal. A 3 mm polyp was found in the ascending colon. The polyp was semi-sessile. Biopsies were taken with a cold forceps for histology. Estimated blood loss: 3 mL requiring treatment with electrocautery. Many small and large-mouthed diverticula were found in the entire colon. There was no evidence of diverticular bleeding. No biopsies or other specimens were collected for this exam. A 3 mm, non-bleeding polyp was found in the sigmoid colon. The polyp was semi-sessile. Biopsies were taken with a cold forceps for histology. Estimated blood loss was minimal. Anal papilla(e) were hypertrophied. No biopsies or other specimens were collected for this exam. Impression: - One 3 mm polyp in the ascending colon. Biopsied. - Severe diverticulosis in the entire examined colon. There was no evidence of diverticular bleeding. No specimens collected. - One 3 mm, non-bleeding polyp in the sigmoid colon. Biopsied. - Anal papilla(e) were hypertrophied. No specimens collected. Recommendation: - Discharge patient to home (via wheelchair). - Full liquid diet today. - Resume Coumadin (warfarin) at prior dose in 2 days. Refer to managing physician for further adjustment of therapy. - Await pathology results. - Telephone my office for pathology results in 1 week. - Repeat colonoscopy is recommended. The colonoscopy date will be determined after pathology results from today's exam become available for review. Procedure Code(s): --- Professional --- 28421, Colonoscopy, flexible; with biopsy, single or multiple Diagnosis Code(s): --- Professional --- D12.2, Benign neoplasm of ascending colon D12.5, Benign neoplasm of sigmoid colon K62.89, Other specified diseases of anus and rectum K92.1, Melena (includes Hematochezia) D50.9, Iron deficiency anemia, unspecified K57.30, Diverticulosis of large intestine without perforation or abscess without bleeding CPT copyright 2021 [employer]. All rights reserved. The codes documented in this report are preliminary and upon millwright helper review may be revised to meet current compliance requirements. Avtar Desir MD 09/14/2024 10:08:16 AM This report has been signed electronically. Number of Addenda: 0 Note Initiated On: 09/14/2024 9:02 AM
--- NOTE | 2024-09-14 10:08 | OP.CCLET_ITS ---
09/14/2024 Samantha Anglin Md Re : Colonoscopy procedure for Laxmi Braxton Dear Derrek This procedure was performed on Saturday, September 14, 2024. My impressions and recommendations are as follows: Impressions : - One 3 mm polyp in the ascending colon. Biopsied. - Severe diverticulosis in the entire examined colon. There was no evidence of diverticular bleeding. No specimens collected. - One 3 mm, non-bleeding polyp in the sigmoid colon. Biopsied. - Anal papilla(e) were hypertrophied. No specimens collected. Recommendations : - Discharge patient to home (via wheelchair). - Full liquid diet today. - Resume Coumadin (warfarin) at prior dose in 2 days. Refer to managing physician for further adjustment of therapy. - Await pathology results. - Telephone my office for pathology results in 1 week. - Repeat colonoscopy is recommended. The colonoscopy date will be determined after pathology results from today's exam become available for review. My findings are described in the full procedure note, which is enclosed. If I can be of further assistance, please feel free to contact me at Doctor phone number(s): , Work: . Sincerely, Avtar Desir MD 09/14/2024 10:08:16 AM This report has been signed electronically.
--- NOTE | 2024-09-14 11:42 | POSTOPAN2_ITS ---
Anesthesia Postop Eval I Sum Postop Eval Completion status Anesthesia document: Postop Eval 1 completed: Yes Anesthesia Postop Eval I Summary Anesthesia Postop Eval I Summary: Anesthesia Postop Eval I: Assessment Summary Airway patent Yes 09/14/24 10:01 CLASSIFICATIONS OFFICER [email or web address] Spontaneous unlabored Yes 09/14/24 10:01 CLASSIFICATIONS OFFICER [email or web address] respirations Mental status nausea No 09/14/24 10:01 CLASSIFICATIONS OFFICER [email or web address] Vomiting No 09/14/24 10:01 CLASSIFICATIONS OFFICER [email or web address] Anesthesia Postop Eval I: Fluid Summary Crystalloid volume administer 800 09/14/24 10:01 CLASSIFICATIONS OFFICER [email or web address] (ml) Colloids volume administered ( ml) Blood Product volume administered (ml) Total IV fluid infused 800 09/14/24 10:01 CLASSIFICATIONS OFFICER [email or web address] Anesthesia Postop Eval I: Summary Notes Anesthesia Complication No 09/14/24 10:01 CLASSIFICATIONS OFFICER [email or web address] Anesthesia Complication Comment: Post-operative progress note Anesthesia: Postop Eval II Evaluation Mental status: Awake Pain Level: 0 nausea: No Vomiting: No
--- NOTE | 2024-09-14 11:42 | PCM.POSTANE2 ---
Anesthesia Postop Eval I Sum Postop Eval Completion status Anesthesia document: Postop Eval 1 completed: Yes Anesthesia Postop Eval I Summary Anesthesia Postop Eval I Summary: Anesthesia Postop Eval I: Assessment Summary Airway patent Yes 09/14/24 10:01 FIRE PREVENTION [email or web address] Spontaneous unlabored Yes 09/14/24 10:01 FIRE PREVENTION INSPECTOR.[email or web address] respirations Mental status nausea No 09/14/24 10:01 FIRE PREVENTION INSPECTOR.TNES Vomiting No 09/14/24 10:01 FIRE PREVENTION [email or web address].[email or web address] Anesthesia Postop Eval I: Fluid Summary Crystalloid volume administer 800 09/14/24 10:01 FIRE PREVENTION INSPECTOR.[email or web address] (ml) Colloids volume administered ( ml) Blood Product volume administered (ml) Total IV fluid infused 800 09/14/24 10:01 FIRE PREVENTION [email or web address].[email or web address] Anesthesia Postop Eval I: Summary Notes Anesthesia Complication No 09/14/24 10:01 FIRE PREVENTION [email or web address] Anesthesia Complication Comment: Post-operative progress note Anesthesia: Postop Eval II Evaluation Mental status: Awake Pain Level: 0 nausea: No Vomiting: No
[2024-09-14 14:40] LABS: INR Fingerstick 1.6; Prothrombin Time Fingerstick 17.9 SEC (11.7-14.9)
== END 2024-09-14 11:25 | disposition home or self-care (01) ==
LOC: EN 06:18 → AC 06:19
PROVIDERS: Anesthesiology; PCP Family Medicine; Referring Provider Family Medicine; Visit Provider Surgery
PROC: 0DJD8ZZ Inspection of Lower Intestinal Tract, Via Natural or Artificial Opening Endoscopic (ICD-10-PCS; CPT 45378; principal; 2024-09-14 07:25)
DX: K31.7 Polyp of stomach and duodenum (principal); K92.1 Melena; D12.2 Benign neoplasm of ascending colon; D50.9 Iron deficiency anemia, unspecified; K31.89 Other diseases of stomach and duodenum; R10.84 Generalized abdominal pain; K22.89 Other specified disease of esophagus; R19.7 Diarrhea, unspecified; K57.30 Diverticulosis of large intestine without perforation or abscess without bleeding; K44.9 Diaphragmatic hernia without obstruction or gangrene; D12.5 Benign neoplasm of sigmoid colon; E78.00 Pure hypercholesterolemia, unspecified; I25.2 Old myocardial infarction; Z79.01 Long term (current) use of 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s; Z79.899 Other long term (current) drug therapy; Z95.0 Presence of cardiac pacemaker; Z86.0101 Personal history of adenomatous and serrated colon polyps; Z80.0 Family history of malignant neoplasm of digestive organs
CPT/HCPCS: 45380; 43251; 43239; 36416; 85610; 88305; C1889

== ENCOUNTER 2024-10-07 12:13 | Outpatient (RCR) | payer MEDICARE, SELFPAY ==
[2024-08-31 22:02] VITALS: BMI 26.7
[2024-10-07 13:03] LABS: International Normalized Ratio 1.8; Prothrombin Time (Protime)PT. 21.2 SECONDS (11.7-14.9)
== END 2024-10-07 18:00 | disposition home or self-care (01) ==
LOC: LAB 12:13
PROVIDERS: PCP Family Medicine; Referring Provider Internal Medicine Cardiovascular Disease; Visit Provider Internal Medicine Cardiovascular Disease
DX: Z79.01 Long term (current) use of 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s
CPT/HCPCS: 36415; 85610

== ENCOUNTER 2024-12-01 11:53 | Outpatient (RCR) | payer MEDICARE, SELFPAY ==
[2024-11-02 17:43] LABS: Prothrombin Time (Protime)PT. 19.1 SECONDS (11.7-14.9)
[2024-11-09 12:49] LABS: INR Fingerstick 2.0
[2024-12-01 12:03] LABS: INR Fingerstick 3.0
== END 2024-12-01 21:30 | disposition home or self-care (01) ==
LOC: LAB 11:53
PROVIDERS: PCP Family Medicine; Referring Provider Internal Medicine Cardiovascular Disease; Visit Provider Internal Medicine Cardiovascular Disease
DX: Z79.01 Long term (current) use of 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s
CPT/HCPCS: 36415; 36416; 85610

== ENCOUNTER 2024-12-23 14:20 | Outpatient (RCR) | payer MEDICARE, SELFPAY ==
[2024-12-23 14:40] LABS: INR Fingerstick 2.9
== END 2024-12-23 18:00 | disposition home or self-care (01) ==
LOC: LAB 14:20
PROVIDERS: PCP Family Medicine; Referring Provider Internal Medicine Cardiovascular Disease; Visit Provider Internal Medicine Cardiovascular Disease
DX: Z79.01 Long term (current) use of 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s
CPT/HCPCS: 36416; 85610

== ENCOUNTER 2025-01-18 10:18 | Outpatient (RCR) | payer MEDICARE, SELFPAY ==
[2025-01-18 10:28] LABS: INR Fingerstick 3.0
== END 2025-01-31 18:00 | disposition home or self-care (01) ==
LOC: LAB 10:18
PROVIDERS: PCP Family Medicine; Referring Provider Internal Medicine Cardiovascular Disease; Visit Provider Internal Medicine Cardiovascular Disease
DX: Z79.01 Long term (current) use of 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s
CPT/HCPCS: 36416; 85610

== ENCOUNTER 2025-02-15 10:33 | Outpatient (RCR) | payer MEDICARE, SELFPAY ==
[2025-02-15 10:41] LABS: INR Fingerstick 2.2
== END 2025-02-15 18:00 | disposition home or self-care (01) ==
LOC: LAB 10:33
PROVIDERS: PCP Family Medicine; Referring Provider Internal Medicine Cardiovascular Disease; Visit Provider Internal Medicine Cardiovascular Disease
DX: Z79.01 Long term (current) use of 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s
CPT/HCPCS: 36416; 85610

== ENCOUNTER 2025-03-20 14:22 | Outpatient (RCR) | payer MEDICARE, SELFPAY ==
[2025-03-20 14:33] LABS: INR Fingerstick 3.4
== END 2025-04-02 18:00 | disposition home or self-care (01) ==
LOC: LAB 14:22
PROVIDERS: PCP Family Medicine; Referring Provider Internal Medicine Cardiovascular Disease; Visit Provider Internal Medicine Cardiovascular Disease
DX: Z79.01 Long term (current) use of 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s (principal)
CPT/HCPCS: 36416; 85610

== ENCOUNTER 2025-03-26 13:04 | Emergency (ER) | payer MEDICARE, SELFPAY ==
[2025-03-26 13:05] VITALS: PULSE 75; RESP 18; TEMP 35.9; O2SAT 98; BMI 25.7
--- NOTE | 2025-03-26 13:40 | EDS_ITS ---
HPI History of Present Illness Chief Complaint: Abn Labs Narrative Narrative: Chief complaint and HPI: 84-year-old female with past medical history of pacemaker, atrial fibrillation, valve replacement on warfarin presents for evaluation of INR check. Patient states that she follows with [facility]. States that she is scheduled to have a dental extraction on Thursday by her dentist. States she was told that she needs her INR checked 48 hours prior to the surgery. She states outpatient lab was closed and therefore she presents to the emergency department. She denies any complaints at this time. Review of systems: See HPI Medications: As listed on the chart Allergies: As listed on the chart PFSH: Per chart Vital signs: As listed on the chart. Reviewed. Physical exam: Gen: NAD ENT: Moist mucous membranes CV: RRR Resp: Lungs CTA BL, no w/r/c Musc: Moves all extremity Psych: Cooperative, appropriate mood and affect PFSH PFSH Medical History Hematoma Skin ulcer of hip with fat layer exposed Loss of hearing Wears hearing aid Wears glasses Cancer High cholesterol Restless legs History of IBS Diverticulosis History of diverticulitis History of echocardiogram History of pacemaker Cardiology follow-up encounter Osteopenia GI bleed Non-smoker CPAP (continuous positive airway pressure) dependence Pacemaker 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, left jail current use of 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 Atrial fibrillation Neuropathic pain Restless leg syndrome Allergic rhinitis Depression Vitamin B12 deficiency Hyperlipidemia Vitamin D deficiency Osteoporosis 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 Presence of permanent cardiac pacemaker (~05/20/21) Depression GERD (gastroesophageal reflux disease) Sleep apnea Anticoagulated on warfarin Acute non-ST elevation myocardial infarction (NSTEMI) Hernia Endometrial cancer Neuropathy Mitral and aortic valve disease Atrial fibrillation Atrial fibrillation with RVR Home Medications ?Medication ?Instructions ?Recorded ?Last Taken ?Type cholecalciferol (vitamin D3) 25 1,000 unit PO DAILY RE PLACEMENT 05/21/18 10/05/21 09:00 History mcg (1,000 unit) tablet (Vitamin D3) cyanocobalamin (vitamin B-12) 1,000 mcg sublingual MAUREEN LY 05/21/18 09/13/24 History 1,000 mcg sublingual tablet replacement citalopram 10 mg tablet 10 mg PO QHS depression 08/3 0/09/13/24 History biotin 1,000 mcg chewable tablet 1,000 mcg PO DAILY ALVAREZ PPLEMENT 05/06/21 09/13/24 History ipratropium bromide 42 mcg (0.06 2 spray intranasal BI D PRN NASAL 05/06/21 09/13/24 History %) nasal spray pramipexole 0.5 mg tablet 0.75 mg PO QHS RLS 05/06/21 09/13/24 History fexofenadine 180 mg tablet 180 mg PO DAILY PRN allergy 07/09/21 10/05/21 09:00 History (Allergy Relief (fexofenadine)) ascorbic acid (vitamin C) 500 mg 500 mg PO DAILY suppl ement 04/06/23 09/13/24 History tablet calcium 600 mg-D3 800 unit-mag11 1 tab PO DAILY REPLAC EMENT 04/06/23 09/13/24 History 50 qy-unma-otalbm-stephanie-s.borat tablet (Caltrate 600-D Plus Minerals) gabapentin 300 mg capsule 600 mg PO QHS 07/02/2309/13 History lactase 3,000 unit tablet (Dairy 9,000 unit PO TID PRN lactose 09/09/23 09/13/24 History Relief) intolerance gabapentin 300 mg capsule 300 mg PO DAILY 11/26/23 History multivitamin 1 tab PO DAILY 11/26/2309/01 History simvastatin 10 mg tablet 10 mg PO QHS cholesterol #90 tabs 06/02/24 09/13/24 Rx warfarin 1 mg tablet 1 mg PO .COMPLEX #135 TABLET S 03/16/25 Unknown Rx Allergy/AdvReac Type Severity Reaction Status Date / Time sertraline (From Zoloft) AdvReac Other Verified 03/26/25 13:05 Family History Mother Heart disease CAD (coronary artery disease) Hypertension Breast cancer Father Heart disease Bradycardia Bradycardia requiring pacemaker placement. Colon cancer Surgical History History of hysterectomy History of colonoscopy History of cardiac catheterization History of hernia surgery History of ankle surgery Hx of atrioventricular node ablation S/P MVR (mitral valve replacement) S/P left atrial appendage ligation S/P Maze operation for atrial fibrillation S/P left atrial appendage ligation History of hysterectomy for cancer History of cholecystectomy S/P ablation operation for arrhythmia History of maze procedure History of mitral valve replacement Social History household members: none Smoking Status: Never smoker alcohol intake: current alcohol intake frequency: holidays/special occasions only substance use type: does not use EXAM Physical Exam Const Vital Signs: 03/26/25 13:05 03/26/25 14:17 Temperature 96.6 F L Temperature Source Temporal Pulse Rate 75 Respiratory Rate 18 Respiratory Effort Normal Respiratory Pattern Normal Pulse Ox 98 Oxygen Delivery Method Room Air MDM MDM MDM Narrative Medical decision making narrative: 84-year-old female with past medical history of pacemaker, atrial fibrillation, valve replacement on warfarin presents for evaluation of INR check. Patient states that she follows with [facility]. States that she is scheduled to have a dental extraction on Thursday by her dentist. States she was told that she needs her INR checked 48 hours prior to the surgery. She states outpatient lab was closed and therefore she presents to the emergency department. She denies any complaints at this time. Will obtain INR for patient. INR 2.4. Patient to follow-up with her dentist. She confirmed understanding of plan. Patient able to discharge home. Impression: 1. INR check Lab Data Labs: Laboratory Results - last 24 hr 03/26/25 13:57 PT 26.5 H INR 2.4 Discharge Plan Triage Chief Complaint: Abn Labs ED Provider: Nikita Williamson Dx/Rx/DC Orders Prescriptions: No Action fexofenadine [Allergy Relief (fexofenadine)] 180 mg tablet 180 mg PO DAILY PRN (Reason: allergy) multivitamin Tablet 1 tab PO DAILY simvastatin 10 mg tablet 10 mg PO QHS Qty: 90 3RF cyanocobalamin (vitamin B-12) 1,000 MCG tablet, sublingual 1,000 mcg sublingual DAILY cholecalciferol (vitamin D3) [Vitamin D3] 1,000 UNIT tablet 1,000 unit PO DAILY Caltrate 600-D Plus Minerals 600 mg calcium- 800 unit-50 mg tablet 1 tab PO DAILY citalopram 10 mg tablet 10 mg PO QHS pramipexole 0.5 mg tablet 0.75 mg PO QHS ipratropium bromide 42 mcg (0.06 %) spray,non-aerosol 2 spray INTRANASAL BID PRN (Reason: NASAL) biotin 1,000 mcg Tablet,Chewable 1,000 mcg PO DAILY gabapentin 300 mg capsule 600 mg PO QHS gabapentin 300 mg capsule 300 mg PO DAILY lactase [Dairy Relief] 3,000 unit tablet 9,000 unit PO TID PRN (Reason: lactose intolerance) ascorbic acid (vitamin C) 500 mg tablet 500 mg PO DAILY warfarin 1 mg tablet 1 mg PO .COMPLEX Qty: 135 3RF Protocol: Dose Management Condition: Thursday Dose/Route: 1 mg Instruction: 1 x 1 mg tablet Condition: Thursday Dose/Route: 1 mg Instruction: 1 x 1 mg tablet Condition: Thursday Dose/Route: 1 mg Instruction: 1 x 1 mg tablet Condition: Thursday Dose/Route: 1 mg Instruction: 1 x 1 mg tablet Condition: Dose/Route: 1 mg Instruction: 1 x 1 mg tablet Condition: Thursday Dose/Route: 1 mg Instruction: 1 x 1 mg tablet Condition: Thursday Dose/Route: 1 mg Instruction: 1 x 1 mg tablet Protocol Text: Adjustment Start Date: Thursday03/20/25 INR Value: 3.4 INR Date: 03/20/25 Recheck Date: 04/03/25 Patient Comments: 09/09/24 LAST DOSE FOR COLONOSCOPY ON 09/14/24 Rx Instructions: daily except 2mg on Fridays; OR as directed. Please give extra tablets for dose changes. Primary Care Provider: Samantha Anglin Referrals: Samantha Anglin MD [Primary Care Provider, Family Practice] Print Language: Tuvaluan
--- OUTSIDE RECORDS SUMMARY | 2025-03-26 14:13 | XMS RPT_ITS | CCD ---
Author Organization [facility] Care Team Providers Care Processor Inspector Name Role Phone PROVIDER, UNKNOWN Unavailable Unavailable LOREE VALLECILLO Unavailable Unavailable LOREE VALLECILLO Unavailable Unavailable KEYLA VALLECILLO Primary Care Provider Unavaila Dr. Alexander Ocasio Emergency Provider Dr. Jaciel Sesay Attending Provider KEYLA VALLECILLO Primary Care Provider Dr. Jaciel Sesay Admit Provider Dr. Romina Ruiz Attending Provider Dr. Romina Ruiz Other Provider Dr. Polo Falk Other Provider Dr. Polo Falk Attending Provider Dr. Berta Lau Attending Provider Dr. Jaciel Sesay Referring Provider Speedy Castorena Attending Provider Unavailable Dr. Igor Prince Emergency Provider SAROJ VALLECILLO Primary Care Provider Dr. Misti Duvall Admit Provider Dr. Makenzie Blake Other Provider Karla Hong Attending Provider Unavailable SAROJ VALLECILLO Primary Care Provider Unavailab steve Cunha MEDICINE ASSISTANT, RICOC Brittany Attending Provider SAROJ VALLECILLO Referring Provider Unavailable Saroj Avelar MD Primary Care Provider Ana WARD, Jean-Pierre Beltran Unavailable Alphonse MEDICINE ASSISTANT, MEDICINE ASSISTANT-C Brittany Attending Provider Dr. Polo Ruiz Emergency Provider LOREE HOBBS Primary Care Provider Unavailab Dr. Misti Louis Admit Provider Dr. Misti Duvall Other Provider Dr. Makenzie Blake Attending Provider Koryaakov, Dr. Makenzie Lewis Other Provider Dr. Felipe Rodriguez Attending Provider Dr. Felipe Rodriguez Other Provider Karla Hong Attending Provider Unavailable Care Physician, No Primary Primary Care Provider Unavailable Care Physician, No Primary Referring Provider Un available Dr. Polo Falk Attending Provider Dr. Polo Falk Referring Provider [phone] Alphonse MEDICINE ASSISTANT, MEDICINE ASSISTANT-C Brittany Attending Provider Care Physician, No Primary Primary Care Provider Unavailable Care Physician, No Primary Referring Provider Un available Karla Hong Attending Provider Unavailable Alphonse MEDICINE ASSISTANT, MEDICINE ASSISTANT-C Brittany Attending Provider Care Physician, No Primary Primary Care Provider Unavailable Care Physician, No Primary Referring Provider Un available Dr. Polo Falk Attending Provider Care Physician, No Primary Primary Care Provider Unavailable Care Physician, No Primary Referring Provider Un available Arleen MEDICINE ASSISTANT, MEDICINE ASSISTANT-C Speedy Núñez Attending Provider Karla Hong Attending Provider Unavailable Saroj Vallecillo Primary Care Provider Unavailab Dr. Polo Peace Attending Provider [phone] CAMERON COYLE Attending Unavailable SAROJ VALLECILLO Referring Unavailable SAROJ VALLECILLO Primary Care Unavailable Care Physician, No Primary Referring Provider Un available Roof MEDICINE ASSISTANT, MEDICINE ASSISTANT-C Speedy Núñez Attending Provider Dr. Polo Falk Attending Provider [phone] Karla Hong Attending Provider Unavailable Saroj Vallecillo Primary Care Provider Unavailab Saroj Armijo Primary Care Provider Unavailab Dr. Polo Peace Attending Provider Roof MEDICINE ASSISTANT, MEDICINE ASSISTANT-Mela Núñez Attending Provider SAROJ VALLECILLO Primary Care Provider Unavailab le SAROJ VALLECILLO Referring Provider Unavailable Karla Hong Attending Provider Unavailable Dr. Real Gibson Attending Provider [phone] Real Gibson Attending Provider [phone] Denise Vallecillo Primary Care Provider Dr. Real Gibson Attending Provider [phone] Roof MEDICINE ASSISTANT, JENAE-Mela Núñez Attending Provider Dr. Denise Vallecillo Referring Provider RUSS PLUMMER Attending Unavailable RUSS PLUMMER Admitting Unavailable SAROJ VALLECILLO MD [facility] Care Unavailabl e Dr. Denise Vallecillo Primary Care Provider Dr. Real Gibson Attending Provider [phone] Reyna Sanders Emergency Provider Dr. Piter Perdomo Admit Provider Dr. Piter Perdomo Attending Provider Dr. Piter Perdomo Other Provider Dr. Jaciel Sesay Attending Provider Dr. Jaciel Sesay Other Provider Dr. Denise Vallecillo Primary Care Provider Dr. Real Gibson Attending Provider [phone] Roof MEDICINE ASSISTANT, JENAE-Mela Núñez Attending Provider Dr. Denise Vallecillo Referring Provider Dr. Reyna Sanders Emergency Provider Dr. Piter Perdomo Admit Provider Dr. Piter Perdomo Attending Provider Dr. Piter Perdomo Other Provider Dr. Jaciel Sesay Attending Provider Dr. Jaciel Sesay Other Provider Dr. Denise Vallecillo Primary Care Provider Dr. Denise Vallecillo Primary Care Provider MD Samantha Anglin Primary Care Provider Dr. Real Gibson Attending Provider Dr. Avtar Desir Attending Provider MD Samantha Anglin Referring Provider Dr. Avtar Desir Other Provider RANDI ESCOBAR Attending Unavailable Ruth Ann WARD, Saroj Hill Primary Care Provider Derrek WARD, Samantha Primary Care Provider Samantha Anglin MD Attending Provider Samantha Anglin MD Referring Provider Dr. Real Gibson MD Attending Provider LOREE VALLECILLO Family Provider Dr. Real Gibson MD Referring Provider SHELLY CABRERA MD Other Provider SHELLY CABRERA MD Attending Provider SHELLY CABRERA MD Referring Provider Roof MEDICINE ASSISTANT-C, Speedy Núñez Attending Provider Roof MEDICINE ASSISTANT-C, Speedy Núñez Referring Provider Dr. Avtar Desir MD Attending Provider Derrek WARD, Samantha Primary Care Provider LOREE VALLECILLO Family Provider Dr. Real Gibson MD Attending Provider Dr. Real Gibson MD Referring Provider DEBORAH WARD, SHELLY Other Provider Derrek WARD, Samantha Referring Provider Dr. Pacheco Rodriguez MD, V Other Provider Dr. Avtar Desir MD Other Provider Derrek WARD, Ivanon Primary Care Provider Dr. Real Gibson MD Attending Provider LOREE VALLECILLO Family Provider Dr. Real Gibson MD Referring Provider DEBORAH WARD, SHELLY Other Provider Derrek WARD, Samantha Referring Provider LOREE VALLECILLO Family Provider Dr. Real Gibson MD Attending Provider Dr. Real Gibson MD Referring Provider Derrek WARD, Ivan Primary Care Provider DEBORAH WARD, SHELLY Other Provider Derrek WARD, Samantha Referring Provider Dr. Avtar Desir MD Attending Provider Karla Hong Attending Provider Unavailable Derrek WARD, [facility] Primary Care Provider OLREE VALLECILLO Family Provider Dr. Real Gibson MD Attending Provider Dr. Real Gibson MD Referring Provider SHELLY CABRERA MD Other Provider Dr. Pacheco Rodriguez MD, V Other Provider LOREE VALLECILLO Primary Care Physician Dr. Real Gibson MD Attending Physician Derrek WARD, Samantha Primary Care Physician SHELLY CABRERA MD Nurse Practitioner Dr. Pacheco Rodriguez MD, V Nurse Practitioner Derrek WARD, Samantha Referring Provider [phone] Derrek, Chalon Primary Care Unavailable DEBORAH, SHELLY Attending Unavailable Derrek, Chalon Primary Care Unavailable DEBORAH, SHELLY Attending Unavailable DEBORAH, SHELLY Referring Unavailable Derrek, Chalon Primary Care Unavailable Paige, [place] Attending Unavailable Derrek, Chalon Primary Care Unavailable Derrek, Chalon Attending Unavailable Derrek, Chalon Referring Unavailable DEBORAHSHELLY Consulting Unavailable Derrek, Chalon Primary Care Unavailable DEBORAH, SHELLY Consulting Unavailable Paige, Real Attending Unavailable Paige, [place] Referring Unavailable DEBORAHSHELLY VALADEZ Consulting Unavailable Paige, Real Referring Unavailable Paige, [place] Attending Unavailable Derrek, Chalon Primary Care Unavailable Sibilia Pacheco V Consulting Unavailable Derrek, Chalon Referring Unavailable Derrek, Chalon Primary Care Unavailable Avtar Desir Attending Unavailable Derrek, Chalon Primary Care Unavailable Derrek, Chalon Referring Unavailable Roof MEDICINE ASSISTANT, Speedy Núñez Attending Unavailable Derrek, Chalon Referring Unavailable Derrek, Chalon Primary Care Unavailable Avtar Desir Attending Unavailable Paige, [place] Attending Unavailable Derrek, Chalon Primary Care Unavailable Derrek, Chalon Primary Care Unavailable Paige, Real Attending Unavailable Derrek, Chalon Primary Care Unavailable SHELLY CABRERA Consulting Unavailable Paige, [place] Referring Unavailable Paige, Real Attending Unavailable Sibilia Pacheco Ellie Consulting Unavailable SHELLY CABRERA Consulting Unavailable Derrek, Chalon Primary Care Unavailable Paige, Real Referring Unavailable Paige, Real Attending Unavailable Sibilia Pacheco V Consulting Unavailable Derrek, Chalon Primary Care Unavailable SHELLY CABRERA Consulting Unavailable Paige, Real Attending Unavailable Paige, [place] Referring Unavailable Derrek, Chalon Primary Care Unavailable Roof MEDICINE ASSISTANT, Speedy H Attending Unavailable Roof MEDICINE ASSISTANT, Speedy H Referring Unavailable Derrek, Chalon Primary Care Unavailable Derrek, Chalon Referring Unavailable Paige, [place] Attending Unavailable Derrek, Chalon Primary Care Unavailable Derrek, Chalon Referring Unavailable Paige, [place] Attending Unavailable Derrek, Chalon Primary Care Unavailable SHELLY CABRERA Consulting Unavailable Paige, Real Referring Unavailable Paige, Real Attending Unavailable Sibilia, Pacheco V Consulting Unavailable Derrek, Chalon Primary Care Unavailable SHELLY CABRERA Consulting Unavailable Paige, [place] Referring Unavailable Paige, Real Attending Unavailable Derrek, Chalon Referring Unavailable Bortz, Avtar Consulting Unavailable Bortz, Avtar Attending Unavailable Derrek, Chalon Primary Care Unavailable Derrek, Chalon Primary Care Unavailable SHELLY CABRERA Consulting Unavailable Paige, [place] Attending Unavailable Paige, Real Referring Unavailable Derrek, Chalon Primary Care Unavailable Paige, [place] Attending Unavailable Derrek, Chalon Primary Care Unavailable Bortz, Avtar Attending Unavailable Derrek, Chalon Primary Care Unavailable Paige, [place] Attending Unavailable Derrek, Chalon Primary Care Unavailable Paige, [place] Attending Unavailable Derrek, Chalon Primary Care Unavailable SHELLY CABRERA Consulting Unavailable Paige, [place] Referring Unavailable Paige, Real Attending Unavailable Sibilia, Pacheco V Consulting Unavailable Derrek, Chalon Primary Care Unavailable SHELLY CABRERA Consulting Unavailable Paige, Real Referring Unavailable Paige, Real Attending Unavailable Sibilia, Pacheco V Consulting Unavailable Dererk, Chalon Primary Care Unavailable Derrek, Chalon Attending Unavailable Derrek, Chalon Referring Unavailable Derrek, Chalon Primary Care Unavailable SHELLY CABRERA Consulting Unavailable Paige, [place] Referring Unavailable Paige, [place] Attending Unavailable Derrek, Chalon Primary Care Unavailable SHELLY CABRERA Consulting Unavailable Paige, [place] Attending Unavailable Paige, [place] Referring Unavailable Sibilia, Pacheco V Consulting Unavailable Derrek, Chalon Primary Care Unavailable Derrek, Chalon Attending Unavailable Derrek, Chalon Referring Unavailable Derrek, Chalon Primary Care Unavailable Derrek, Chalon Attending Unavailable Derrek, Chalon Referring Unavailable Derrek, Chalon Primary Care Unavailable Sibilia, Pahceco V Attending Unavailable Allergies Allergy Classification Reported Allergen(s) Allergy Type Date of Onset Reaction(s) Facility (20 sources) Sertraline Drug Allergy 0 Other: See Comments [facility] (1 source) Sertraline Drug Allergy 5 [facility] Repository Medications Current Medications Medication Drug Class(es) Dates Sig (Normalized) Sig (Original) amoxicillin 500 mg oral tablet (20 sources) Penicillin-class Antibacterial Start: 03-17-2022 amoxicillin (Amoxil) 500 MG tablet Take 500 mg by mouth. 0 03/17/2022 Active Start: 03-17-2022 End: 07-02-2023 Amoxicillin 500 mg tablet Di scontinued 500 mg PO .COMPLEX 4 3 March 17, 2022 1:00am July 02, 2023 12:56pm 500 mg orally 4 tabs by mouth 30-60 minutes prior to dental procedure; ascorbic acid 500 mg oral tablet (20 sources) Vitamin C Start: 04-06-2023 take 1 tablet by amanda th once daily Start: 04-23-2018 End: 04-06-2023 take 1 tablet by mouth twice daily Ascorbic Acid (Vitamin C) 500 mg tablet Discontinued 500 mg PO TWICE A DAY May 27, 2021 1:00am April 06, 2023 10:21am supplement Comment on above: Take 1 tablet by amanda th twice daily. biotin 1 mg chewable tablet (20 sources) Start: 2 take 1 tablet by mouth once daily calcium carbonate 1500 mg oral tablet (6 sources) take 1 tablet by mouth in the morning calcium carbonate 1500 (600 Ca) MG tablet Take 600 mg by mouth in the morning. 0 Active Comment on above: Take 600 mg by mouth once daily. calcium carbonate 600 mg / cholecalciferol 0.01 mg oral tablet (20 sources) Vitamin D Start: 9 End: 3 cholecalciferol 0.025 mg oral tablet (20 sources) Vitamin D Start: 9 take 1 tablet by mouth once daily take 1 capsule by mouth in the m orning cholecalciferol (Vitamin D-3) 25 MCG (1000 UT) capsule Take 1,000 Units by mouth in the morning. 0 Active take 1 capsule by mouth once mirta ly Cholecalciferol, Vitamin D3, 1,000 unit cap Take 1,000 Units by mouth once daily. 0 Active Comment on above: Take 1,000 Units by mouth once daily. citalopram 10 mg oral tablet (20 sources) Serotonin Reuptake Inhibitor Start: 09-16-2020 take 1 tablet by mouth at bedtime Comment on above: Take 10 mg by mouth once daily. fexofenadine hydrochloride 180 mg oral tablet (20 sources) Histamine-1 Receptor Antagonist Start: 05-06-2021 take 1 tablet by mouth once daily as needed Comment on above: Take 180 mg by mouth daily at bedtime. gabapentin 300 mg oral capsule (20 sources) Anti-epileptic Agent Start: 11-26-2023 take 1 capsule by mouth once daily Start: 07-02-2023 End: 11-26-2023 take 1 capsule by mouth every twelve hours Gabapentin 300 mg capsule Discontinued 300 mg PO Q12H July 02, 2023 1:00am November 26, 2023 10:00am Start: 07-02-2023 take 300 mg by mouth once alberto y Gabapentin Active 300 MG PO DAILY July 02, 2023 1:00am Start: 06-06-2021 End: 07-02-2023 take 2 capsules by mouth at bedtime Start: 06-06-2021 End: 07-02-2023 take 600 mg by mouth at bedtime Gabapentin Active 600 MG PO AT BEDTIME July 02, 2023 1:00am Start: 05-06-2021 End: 06-06-2021 take 1 capsule by mouth twice daily Gabapentin 300 mg capsule Discontinued 300 mg PO TWICE A DAY May 06, 2021 1:00am June 06, 2021 2:53pm NERVE PAIN take 1 capsule by mo [facility] in the morning gabapentin (Neurontin) 300 MG capsule Take 300 mg by mouth in the morning and 300 mg in the evening. 0 Active Comment on above: Take 300 mg by mouth twice daily. Can up titrate to max daily dose of 1,200 mg ipratropium bromide 0.042 mg/actuat metered dose nasal spray (20 sources) Anticholinergic Start: 05-06-2021 Start: 05-06-2021 Ipratropium Br omide Active 2 SPRAY INTRANASAL TWICE A DAY May 06, 2021 1:00am Start: 01-11-2021 take 2 spray(s) nasa l route twice daily ipratropium (Atrovent) 0.06 % nasal spray SPRAY 2 SPRAYS INTO EACH NOSTRIL TWICE A DAY 0 01/11/2021 Active Start: 01-11-2021 take 2 spray(s) nasa l route twice daily ipratropium bromide (ATROVENT) 42 mcg (0.06 %) nasal spray SPRAY 2 SPRAYS INTO EACH NOSTRIL TWICE A DAY 0 01/11/2021 Active Comment on above: SPRAY 2 SPRAYS INTO EACH NOSTRIL TWICE A DAY lactase 3000 unt chewable tablet (12 sources) Start: 2023 take 1 tablet by mouth three times daily as needed methylPREDNISolone (1 source) Corticosteroid Start: 2021 methylPREDNISolone (Medrol Dospak) 4 MG tablets TAKE 6 TABLETS ON DAY 1 DIRECTED ON PACKAGE AND DECREASE BY 1 TAB EACH DAY FOR A TOTAL OF 6 DAYS 0 03/12/2022 Active metoprolol tartrate 50 mg oral tablet (20 sources) beta-Adrenergic Edson Start: 2021 take 25 mg by mouth once daily Metoprolol Tartrate Active 25 MG PO DAILY July 09, 2021 12:12pm Start: 05-27-2021 End: 07-09-2021 take 1 tablet by mouth twice daily Metoprolol Tartrate 50 mg tablet Discontinued 50 mg PO TWICE A DAY May 27, 2021 1:07pm July 09, 2021 12:14pm bp Start: 05-18-2021 End: 05-27-2021 Metoprolol Tartrate 50 MG ta blet Discontinued 25 mg PO TWICE A DAY May 18, 2021 1:05am May 27, 2021 1:08pm bp Start: 05-18-2021 End: 05-27-2021 take 25 mg by mouth twice daily Metoprolol Tartrate Di scontinued 25 MG PO TWICE A DAY May 18, 2021 1:05am May 27, 2021 1:08pm Start: 02-23-2021 End: 05-18-2021 take 1 tablet by mouth twice daily Metoprolol Tartrate 50 MG tablet Discontinued 50 mg PO TWICE A DAY 1 0 February 23, 2021 10:14am May 18, 2021 1:05am bp Start: 05-29-2018 End: 02-23-2021 Metoprolol Tartrate 50 MG ta blet Discontinued 25 mg PO THREE TIMES A DAY May 29, 2018 9:21pm February 23, 2021 10:14am bp Start: 05-29-2018 End: 02-23-2021 take 25 mg by mouth three times daily Metoprolol Tartrate Discontinued 25 MG PO THREE TIMES A DAY May 29, 2018 9:21pm February 23, 2021 10:14am Start: 05-24-2018 End: 05-29-2018 Metoprolol Tartrate 50 MG ta blet Discontinued 75 mg PO TWICE A DAY 120 0 May 24, 2018 1:00am May 29, 2018 9:21pm Start: 05-24-2018 End: 05-29-2018 take 75 mg by mouth twice daily Metoprolol Tartrate Di scontinued 75 MG PO TWICE A DAY 120 May 24, 2018 1:00am May 29, 2018 9:21pm Start: 05-21-2018 End: 05-24-2018 take 1 tablet by mouth every eight hours Metoprolol Tartrate 25 MG tablet Discontinued 25 mg PO Q8H May 21, 2018 1:00am May 24, 2018 12:10pm rate control Multiple Vitamin (multivitamin) tablet (1 source) take 1 tablet by mouth once daily Multiple Vitamin (multivitamin) tablet Take 1 tablet by mouth daily. 0 Active Multivitamin tablet (11 sources) Start: 11-26-2023 Start: 11-26-2023 Multivitamin t ablet Active 1 {tbl} PO DAILY November 26, 2023 12:00am pramipexole dihydrochloride 0.5 mg oral tablet (20 sources) Nonergot Dopamine Agonist Start: 06-04-2022 pramipexole (Mirapex ) 0.5 MG tablet Start: 05-06-2021 take 0.75 mg by mouth at bedti me Start: 05-06-2021 take 0.75 mg by mouth at bedti me Pramipexole Active 0.75 MG PO AT BEDTIME May 06, 2021 1:00am Start: 04-23-2018 take 1 tablet by amanda th once daily at bedtime pramipexole (MIRAPEX) 0.25 mg tablet Take 1 tablet by mouth daily at bedtime. 30 tablet 1 04/23/2018 Active Comment on above: Take 1 tablet by amanda th daily at bedtime. Specialty Vitamins Products (Paco Matrix 5000) tablet (1 source) take 1 tablet by mouth in the morning Specialty Vitamins Products (Avawam Matrix 5000) tablet Take 1 tablet by mouth in the morning. 0 Active sulfamethoxazole 800 mg / trimethoprim 160 mg oral tablet (1 source) Dihydrofolate Reductase Inhibitor Antibacterial, Sulfonamide Antimicrobial Start: 06-13-19 take 1 tablet by mouth twice daily sulfamethoxazole- trimethoprim (Bactrim DS) 800-160 MG tablet Take 1 tablet by mouth 2 times daily. 0 06/13/2021 Active traMADol hydrochloride 50 mg oral tablet (20 sources) Opioid Agonist Start: 11-01-20 22 take 1 tablet by mouth three times daily as needed for pain traMADol (Ultram) 50 MG tablet TAKE 1 TABLET BY MOUTH 3 TIMES A DAY NEEDED FOR PAIN FOR 30 DAYS 0 03/04/2022 Active Start: 10-08-2021 End: 04-18-2022 take 1 tablet by mouth every six hours as needed for pain Tramadol 50 mg Tablet Discontinued 50 mg PO EVERY 6 HOURS NEEDED as needed for Pain Score 4-10 28 7 0 October 16, 2021 12:00am April 18, 2022 10:29am vitamin b12 1 mg sublingual tablet (20 sources) Vitamin B12 Start: 05-21-2018 take 1 tablet under the tongue once daily Comment on above: Dissolve 1 tablet un aleisha the tongue once daily. Completed/Discontinued Medications Medication Drug Class(es) Dates Sig (Normalized) Sig (Original) acetaminophen 500 mg oral tablet (20 sources) Start: 10-16-2021 End: 09-12-2024 take 2 tablets by mouth every six hours as needed for pain Acetaminophen 500 mg Tablet Discontinued 1000 mg PO EVERY 6 HOURS NEEDED as needed for Pain Score 1-3 0 0 October 16, 2021 12:00am September 12, 2024 9:19am Start: 10-16-2021 take 1000 mg by mout h every six hours as needed Acetaminophen Active 1000 MG PO EVERY 6 HOURS NEEDED 0 October 16, 2021 12:00am Start: 05-27-2021 take 650 mg by mouth once Acet aminophen Active 650 MG PO ONCE May 27, 2021 1:06pm Start: 05-27-2021 End: 10-16-2021 Acetaminophen 325 mg tablet Discontinued 650 mg PO NEEDED as needed for Pain May 27, 2021 1:00am October 16, 2021 9:40pm Start: 05-27-2021 End: 10-16-2021 Acetaminophen Discontinued 6 50 MG PO NEEDED May 27, 2021 1:00am October 16, 2021 9:40pm acetaminophen 325 mg / HYDROcodone bitartrate 5 mg oral tablet (11 sources) Opioid Agonist Start: 10-28-2023 End: 11-26-2023 Hydrocodone-Acetaminophen 5-325 mg tablet Discontinued 1 {tbl} PO EVERY 6 HOURS NEEDED as needed for Pain 10 3 0 October 28, 2023 November 26, 2023 10:00am Contusion of left hip Contusion of left hip, initial encounter alendronic acid 70 mg oral tablet (20 sources) Bisphosphonate Start: 04-23-2018 End: 10-02-2022 take 1 tablet by mouth every week Alendronate (Fosamax) 70 MG tablet Discontinued 70 mg PO EVERY WEEK May 21, 2018 1:00am October 02, 2022 2:33pm BONE DENSITY takes on a weekend day sat. or sun. Comment on above: Take 1 tablet by amanda once each week. amoxicillin 875 mg / clavulanate 125 mg oral tablet (16 sources) Penicillin-class Antibacterial Start: 07-03-2023 End: 08-05-2023 Amoxicillin-Pot Clavulanate 875-125 mg tablet Discontinued 1 {tbl} PO TWICE A DAY 14 July 03, 2023 1:00am August 05, 2023 9:24am Start: 07-03-2023 End: 08-05-2023 take 1 tablet by mouth twice daily Amoxicillin-Pot Clavulanate Discontinued 1 TABLET PO TWICE A DAY July 03, 2023 1:00am August 05, 2023 9:24am Biotin-Silicon Fjew-R-Yjsnzpad 5,000 mcg-100 mg- 50 mg tab (5 sources) take 1 tablet by mouth once daily Biotin-Silicon Eruq-V-Ubjgvmwg 5,000 mcg-100 mg- 50 mg tab Take 1 tablet by mouth once daily. 0 Active Comment on above: Take 1 tablet by [facility] once daily. cholestyramine resin 4000 mg powder for oral suspension (20 sources) Bile Acid Sequestrant Start: 018 End: take 4 g by mouth once daily Cholestyramine (With Sugar) (Questran) 4 GM powder in packet Discontinued 4 g PO DAILY May 21, 2018 1:00am October 02, 2022 2:33pm IBS taken by itself, x1 hour after other meds or 4 hours before. Around noon time normally Comment on above: Take 1 Packet by amanda once daily. clindamycin 300 mg oral capsule (11 sources) Lincosamide Antibacterial Start: 024 End: take 1 capsule by mouth three times daily Clindamycin Hcl 300 mg capsule Discontinued 300 mg PO THREE TIMES A DAY November 12, 2023 12:00am November 26, 2023 10:00am ferrous sulfate 325 mg oral tablet (20 sources) Start: 024 End: take 325 mg by mouth three times daily ferrous sulfate (Iron (ferrous sulfate)) Discontinued 325 mg PO THREE TIMES A DAY November 26, 2023 9:56am September 12, 2024 9:20am Start: 11-12-2023 End: 11-26-2023 ferrous sulfate Discontinued PO November 12, 2023 12:00am November 26, 2023 10:00am flecainide acetate 50 mg oral tablet (20 sources) Antiarrhythmic Start: 03-30-2021 End: 05-27-2021 Flecainide 50 mg tablet Discontinued 50 mg PO NEEDED as needed for Cardiac Arrhythmia March 30, 2021 1:00am May 27, 2021 1:08pm Folic Acid (20 sources) Start: 11-26-2023 End: 09-12-2024 take 50 mg by mouth once daily folic acid Discontinued 50 mg PO DAILY November 26, 2023 9:56am September 12, 2024 9:20am Start: 11-26-2023 take 50 mg by mouth once daily folic acid Active 50 mg PO DAILY November 26, 2023 9:56am Start: 11-12-2023 End: 11-26-2023 folic acid Discontinued .Rou te November 12, 2023 12:00am November 26, 2023 10:00am lidocaine 0.05 mg/mg medicated patch (20 sources) Antiarrhythmic, Amide Local Anesthetic Start: 10-08-2021 End: 12-16-2021 Lidocaine 5 % adhesive patch,medicated Discontinued 2 NMA TOPICAL DAILY 60 30 0 October 16, 2021 9:42pm December 16, 2021 11:23am Pain Please contact the information source for Protocol details. pantoprazole 40 mg delayed release oral tablet (18 sources) Proton Pump Inhibitor Start: 09-28-2024 End: 12-01-2024 take 1 tablet by mouth once daily Pantoprazole 40 mg tablet,delayed release (DR/EC) Discontinued 40 mg PO DAILY 30 0 September 29, 2024 11:58am December 01, 2024 11:22am Intestinal metaplasia of stomach Gastric intestinal metaplasia, unspecified simvastatin 10 mg oral tablet (20 sources) HMG-CoA Reductase Inhibitor Start: 05-01-2018 End: 06-02-2024 take 1 tablet by mouth at bedtime Simvastatin 10 mg tablet Discontinued 10 mg PO AT BEDTIME February 23, 2021 12:00am June 02, 2024 11:44am cholesterol Comment on above: Take 10 mg by mouth daily at bedtime. warfarin sodium 1 mg oral tablet (20 sources) Vitamin K Antagonist Start: 07-02-2023 End: 08-05-2023 take 2 tablets by mouth once Warfarin 1 mg tablet Discontinued 2 mg PO MO July 02, 2023 1:00am August 05, 2023 9:25am Please contact the information source for Protocol details. Start: 07-02-2023 End: 08-05-2023 take 2 mg by mouth once Warfarin Discontinued 2 MG P O MO July 02, 2023 1:00am August 05, 2023 9:25am Start: 08-21-2021 End: 04-18-2022 take 0.5 mg by mouth at bedtime Warfarin (Jantoven) 1 mg tablet Discontinued 1 mg PO AT BEDTIME Protocol: Adjustment Start Date: Thursday04/08/22INR Value: 2.0INR Date: 04/08/22Recheck Date: 04/22/22 Condition: Thursday Dose/Route: 0.5 mg Instructions: 0.5 x 1 mg tablets Condition: Thursday Dose/Route: 0.5 mg Instructions: 0.5 x 1 mg tablets Condition: Thursday Dose/Route: 1 mg Instructions: 1 x 1 mg tablet Condition: Thursday Dose/Route: 1 mg Instructions: 1 x 1 mg tablet Condition: Dose/Route: 1 mg Instructions: 1 x 1 mg tablet Condition: Thursday Dose/Route: 1 mg Instructions: 1 x 1 mg tablet Condition: Thursday Dose/Route: 1 mg Instructions: 1 x 1 mg tablet 90 3 August 21, 2021 4:37pm April 18, 2022 11:07am blood thinner Please contact the information source for Protocol details. Start: 05-21-2018 End: 09-12-2024 Warfarin 1 mg tablet Discont inued 1 mg PO .COMPLEX Protocol: Adjustment Start Date: Thursday05/20/24INR Value: 3.6INR Date: 05/20/24Recheck Date: 05/27/24 Condition: Thursday Dose/Route: 1 mg Instructions: 1 x 1 mg tablet Condition: Thursday Dose/Route: 1 mg Instructions: 1 x 1 mg tablet Condition: Thursday Dose/Route: 1 mg Instructions: 1 x 1 mg tablet Condition: Thursday Dose/Route: 1 mg Instructions: 1 x 1 mg tablet Condition: Dose/Route: 1 mg Instructions: 1 x 1 mg tablet Condition: Thursday Dose/Route: 1 mg Instructions: 1 x 1 mg tablet Condition: Thursday Dose/Route: 1 mg Instructions: 1 x 1 mg tablet 120 3 November 06, 2023 8:47am June 02, 2024 11:44am 1 mg orally Take two tabs (2mg) Thu- and one tab (1mg) Thu-Thu; or use as directed; Please contact the information source for Protocol details. Comment on above: Take 1 tablet by amanda th daily as directed. Problems Active Problems Problem Classification Problem Date Documented Da te Episodic/Chronic Acute myocardial infarction (1 source) Acute non-ST segment elevation myocardial infarction; Translations: [Non-ST elevation (NSTEMI) myocardial infarction] Onset: 3 06-09-2022 Chronic Cardiac dysrhythmias (20 sources) Atrial fibrillation; Translations: [Unspecified atrial fibrillation] Onset: 8 Chronic Chronic ulcer of skin (11 sources) Ulcer of lower extremity; Translations: [Non-pressure chronic ulcer of unspecified thigh with fat layer exposed] 11-12-2023 Chronic Coagulation and hemorrhagic disorders (20 sources) Blood coagulation disorder; Translations: [Hemorrhagic disorder due to extrinsic circulating 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s] Onset: 3 03-03-2021 Chronic Complications of surgical procedures or medical care (6 sources) 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; Translations: [Other postprocedural cardiac functional disturbances following cardiac surgery] Onset: 2 05-21-2021 Chronic Conduction disorders (20 sources) EKG: complete atrioventricular block; Translations: [Atrioventricular block, complete] Onset: 2 Chronic Comment on above: CHB induced by AV ju nctional ablation on 05/20/2021 Medjenelle Osman [id number] @ [facility] 05/20/21 Diseases of white blood cells (6 sources) Leukocytosis; Translations: [Elevated white blood cell count, unspecified] Onset: 8 04-18-2018 Chronic Disorders of lipid metabolism (20 sources) Hyperlipidemia; Translations: [Hyperlipidemia, unspecified] Onset: 3 Chronic Diverticulosis and diverticulitis (20 sources) Diverticulitis of intestine; Translations: [Diverticulitis of intestine, part unspecified, without perforation or abscess without bleeding] Onset: 5 07-02-2023 Chronic Comment on above: Patient 82-year-old female who follows up after a reported bout of acute diverticulitis at occasioned a brief inpatient stay the end of June. She has recovered after application of conservative measures and denies any persistent symptoms. Her abdominal exam, further, is benign. I did review patient's CT imaging from 07/02/2023 and her inflammation of the colon is mild at best. Still, I agree with proceeding with a diagnostic colonoscopy since it has been 10 years since her last investigative endoscopy which noted the presence of colonic polyps, mild colitis, and severe pancolonic diverticulosis. Patient's daughter, who accompanies her shares that there is significant longevity within her family tree and a number of family members that have lived into their late 90s/early 100s. Until this colonoscopy I have advised increasing fiber and water intake as a means of hopefully decreasing patient's diarrhea and constipation concerns. She will require a hold of her warfarin ahead of this procedure and we will seek approval from the heart group. Fluid and electrolyte disorders (20 sources) Hypokalemia; Translations: [Hypokalemia] Onset: 3 Episodic Heart valve disorders (20 sources) History of mitral valve replacement; Translations: [Presence of prosthetic heart valve] Onset: 8 Chronic Comment on above: 04-16-2018 and awais serranod a number 29 mm [place] epic mitral valve bioprosthesis. Malaise and fatigue (20 sources) Fatigue; Translations: [Other fatigue] Onset: 3 Episodic Mood disorders (20 sources) Depressive disorder; Translations: [Depression] Onset: 3 Chronic Nonspecific chest pain (20 sources) Chest pain; Translations: [Chest pain, unspecified] Onset: 3 Episodic Nutritional deficiencies (20 sources) Undernutrition; Translations: [Mild protein-calorie malnutrition] Onset: 8 04-21-2018 Chronic Nutritional deficiencies (20 sources) Cobalamin deficiency; Translations: [Deficiency of other specified B group vitamins] Onset: 3 Episodic Open wounds of head; neck; and trunk (11 sources) Laceration of lip ; Translations: [Laceration without foreign body of lip, initial encounter] 02-11-2024 Episodic Osteoporosis (20 sources) Osteoporosis; Translations: [Age-related osteoporosis without current pathological fracture] Onset: 3 Chronic Other aftercare (20 sources) Long-term current use of 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; 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 Interested in revisiting this area that was previously tattooed to ensure completeness of resection. Other circulatory disease (18 sources) Transient hypotension; Translations: [Hypotension, unspecified] 07-02-2023 Episodic Other circulatory disease (7 sources) Hypotension, unspecified; Translations: [Nonspecific low blood pressure reading] 07-02-2023 Episodic Other connective tissue disease (20 sources) Foot pain; Translations: [Pain in right foot] Onset: 3 10-22-2021 Episodic Other connective tissue disease (20 sources) Neuropathic pain; Translations: [Neuralgia and neuritis, unspecified] Onset: 3 10-08-2021 Episodic Other connective tissue disease (7 sources) Neuralgia and neuritis, unspecified; Translations: [Neuralgia, neuritis, and radiculitis, unspecified] Episodic Other connective tissue disease (7 sources) Pain in right foot; Translations: [Pain in limb] Episodic Other connective tissue disease (2 sources) Pain in right foot; Translations: [Pain in right foot] 10-22-2021 Episodic Other disorders of stomach and duodenum (9 sources) Intestinal metaplasia of gastric mucosa; Translations: [Intestinal metaplasia of stomach] 09-28-2024 Episodic Other gastrointestinal disorders (15 sources) History of melena; Translations: [Personal history of other diseases of the digestive system] 08-01-2024 Episodic Comment on above: Per history patient had some darker stools with recent bleeding episode. This was not demonstrated in the pictures provided to me, but given the significant drop in patient's hemoglobin and the concerns from another provider I am happy to oblige the request for EGD. Notably, patient does deny any history of reflux or heartburn. Other hereditary and degenerative nervous system conditions (20 sources) Restless legs; Translations: [Restless legs syndrome] Onset: 3 10-08-2021 Chronic Other hereditary and degenerative nervous system conditions (7 sources) Restless legs syndrome; Translations: [Restless legs syndrome (RLS)] Chronic Other injuries and conditions due to external causes (11 sources) Hematoma; Translations: [Other injury of unspecified body region, initial encounter] 11-12-2023 Episodic Other injuries and conditions due to external causes (11 sources) Closed injury of head; Translations: [Unspecified injury of head, initial encounter] 02-11-2024 Episodic Other injuries and conditions due to external causes (11 sources) Avulsion of skin; Translations: [Other injury of unspecified body region, initial encounter] 11-05-2023 Episodic Other nervous system disorders (6 sources) Neuropathy; Translations: [Polyneuropathy, unspecified] Onset: 2 05-20-2021 Chronic Other nutritional; endocrine; and metabolic disorders (20 sources) Adult failure to thrive syndrome; Translations: [Adult failure to thrive] Onset: 2 10-05-2021 Episodic Other nutritional; endocrine; and metabolic disorders (7 sources) Adult failure to thrive; Translations: [Adult failure to thrive] Episodic Other upper respiratory disease (20 sources) Allergic rhinitis; Translations: [Allergic rhinitis, unspecified] Onset: 3 10-08-2021 Chronic Other upper respiratory disease (7 sources) Allergic rhinitis, unspecified; Translations: [Allergic rhinitis, cause unspecified] Chronic Pneumonia (except that caused by tuberculosis or sexually transmitted disease) (20 sources) Pneumonia; Translations: [Pneumonia, unspecified organism] Onset: 3 05-31-2018 Episodic Residual codes; unclassified (6 sources) Obstructive sleep apnea syndrome; Translations: [Obstructive sleep apnea (adult) (pediatric)] Onset: 9 05-20-2021 Chronic Residual codes; unclassified (20 sources) H/O cardiac surgery; Translations: [Other specified postprocedural states] Onset: 8 04-18-2018 Episodic Residual codes; unclassified (20 sources) History of ablation of atrioventricular node; Translations: [Other specified postprocedural states] 04-21-2022 Episodic Residual codes; unclassified (20 sources) History of maze procedure for atrial fibrillation; Translations: [Other specified postprocedural states] Onset: 8 04-18-2018 Episodic Residual codes; unclassified (20 sources) Other specified postprocedural states; Translations: [Other postprocedural status] Episodic Shock (20 sources) Cardiogenic shock; Translations: [Cardiogenic shock] Onset: 3 Episodic Superficial injury; contusion (20 sources) Contusion of hip; Translations: [Contusion of unspecified hip, initial encounter] Onset: 2 Episodic Unclassified (10 sources) Abnormal response to nerve stimulation, unspecified; Translations: [Prolonged QT interval] Onset: 8 05-31-2018 Episodic Unclassified (9 sources) Left moderate pleural effusion Unclassified (2 sources) New Patient; Translations: [New Patient] Onset: 3 Past or Other Problems Problem Classification Problem Date Documented Da te Episodic/Chronic Acute posthemorrhagic anemia (6 sources) Acute posthemorrhagic anemia; Translations: [Acute posthemorrhagic anemia] Onset: 8 04-18-2018 Episodic Anal and rectal conditions (1 source) Other specified diseases of anus and rectum; Translations: [Other specified diseases of anus and rectum] Onset: 5 Episodic Deficiency and other anemia (1 source) Iron deficiency anemia, unspecified; Translations: [Iron deficiency anemia, unspecified] Onset: 5 Episodic Deficiency and other anemia (2 sources) Anemia, unspecified; Translations: [Anemia, unspecified] Onset: 5 Episodic Diabetes mellitus without complication (6 sources) Metabolic stress hyperglycemia; Translations: [Hyperglycemia, unspecified] Onset: 8 04-18-2018 Episodic E Codes: Fall (20 sources) Fall; Translations: [Unspecified fall, initial encounter] Onset: 2 Episodic Gastrointestinal hemorrhage (20 sources) Acute lower gastrointestinal hemorrhage; Translations: [Gastrointestinal hemorrhage, unspecified] Onset: 5 07-02-2023 Episodic Comment on above: Patient with recent complaints of hematochezia. Based on her history it is unclear to me whether this represents likely bleeding from diverticular disease or from hemorrhoids (as patient admits that she has had some itching in bleeding when scratching her anus) thus I have recommended proceeding for diagnostic colonoscopy as above, but suggested we consented her for possible endoscopic banding at the same time. After the procedure was described along with its risks she states that she is in agreement. As above, we will need to make sure patient's warfarin is held in anticipation of this possibility as well.Update 08/01/2024: Once again patient had an experience of hematochezia that was self-limited in June of this year. The pictures patient shows are clearly those of hematochezia with bright red clots depicted. Based on this, my own encounter with patient's severe diverticulosis at her colonoscopy last year, and her descriptions of generalized lower abdominal quadrant cramping I am most suspicious for recurrent diverticular bleed. However, patient relates that her PCP is interested in EGD as 1 picture he was shown appeared to demonstrate melena. 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; Translations: [senior living (current) use of 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s] Onset: 5 Episodic Other and unspecified benign neoplasm (1 source) Benign neoplasm of ascending colon; Translations: [Benign neoplasm of ascending colon] Onset: 5 Episodic Other and unspecified benign neoplasm (1 source) Benign neoplasm of sigmoid colon; Translations: [Benign neoplasm of sigmoid colon] Onset: 5 Episodic Other circulatory disease (6 sources) Low blood pressure; Translations: [Hypotension, unspecified] Onset: 8 04-18-2018 Episodic Other lower respiratory disease (6 sources) Multiple nodules of lung; Translations: [Other nonspecific abnormal finding of lung field] Onset: 9 06-03-2018 Episodic Spondylosis; intervertebral disc disorders; other back problems (1 source) Spinal stenosis of lumbar region; Translations: [Spinal stenosis, lumbar region with neurogenic claudication] Episodic Results Test Name Value Interpretation Reference Range Facility Protime w/INR Fingerstickon 02-15-2025 INR Coag (PPP) [Relative time] 2.2 {INR} Normal [facility] Comment on above: Result Comment: Crit ical Value > 4.0 Performed By: #### L 500.2500, L506.1000 #### [facility] [address] [place], [place], [id number] Protime [place] 24.3 SEC High 11.7-14.9 [facility] Comment on above: Performed By: #### L 500.2500, L506.1000 #### [facility] [address] [place], [place], [id number] International normalized rat io (INR) measurement by fingerstickOrdered By: Real Gibson on 01-18-2025 INR Coag (BldC) [Relative time] 3.0 [facility] Comment on above: Critical Value > 4.0 Protime w/INR Fingerstickon 01-18-2025 INR Coag (PPP) [Relative time] 3.0 {INR} Normal [facility] Comment on above: Result Comment: Crit ical Value > 4.0 Performed By: #### L 9200.0000 #### [facility] [address] [place], [place], [id number] Protime [place] 31.2 SEC High 11.7-14.9 [facility] Comment on above: Performed By: #### L 9200.0000 #### [facility] [address] [place], [address] Whole blood prothrombin time Ordered By: Real Gibson on 01-18-2025 PT Coag (Bld) [Time] 31.2 s High 11.7-14.9 [facility] International normalized rat io (INR) measurement by fingerstickOrdered By: Real Gibson on 12-23-2024 INR Coag (BldC) [Relative time] 2.9 [facility] Comment on above: Critical Value > 4.0 Protime w/INR Fingerstickon 12-23-2024 INR Coag (PPP) [Relative time] 2.9 {INR} Normal [facility] Comment on above: Result Comment: Crit ical Value > 4.0 Performed By: #### L 9200.0000 #### [facility] [address] [place], [address] Protime [place] 29.9 SEC High 11.7-14.9 [facility] Comment on above: Performed By: #### L 9200.0000 #### [facility] [address] [place], [address] Whole blood prothrombin time Ordered By: Real Gibson on 12-23-2024 PT Coag (Bld) [Time] 29.9 s High 11.7-14.9 [facility] Cardiology Visit Reporton Cardiology Visit Report [facility] [address] [place] [address] OFFICE VISIT Date of Service: 12/01/24 MR#: [id number] Acct: [id number] Name: GLORIA MATHEW Rep #: [id number] : 1940 Provider: Dr. Real Gibson MD Age/Sex: 84/F Location: [facility] Status: Signed HPI HPI History of Present Illness Details: GLORIA MATHEW, is a 84 year old white female who presents for cardiovascular follow up visit. The patient was evaluated at [facility] on 05-07-2021 for concerns of her recurrent atrial dysrhythmia/fibrillat ion with RVR and concerns of abnormal cardiac enzymes. She underwent diagnostic cardiac catheterization at that time. She was not found to have angiographically significant CAD and required no revascularization therapy. Again, she presented to [facility] on 05/18/2021 for evaluation based upon recurrent atrial fibrillation with RVR superimposed upon a history of MVR, status post maze procedure, status post left atrial appendage ligation. She attempted her as needed flecainide/Tambocor therapy at home, and it was unsuccessful. She then presented to the emergency room. Her cardiac rhythm was compatible with atrial fibrillation with RVR. She underwent synchronized biphasic DC cardioversion x4 times. She did not regain sinus rhythm at that time. She was subsequently placed on additional medical therapy which included IV amiodarone. She was then transferred to [facility] for an electrophysiology evaluation on 05-24-2021. She underwent an atrioventricular node ablation which induced complete heart block. Patient underwent a cardiac pacemaker. She had her pacemaker interrogated today She denies chest, arm, jaw, or neck discomfort. She denies palpitations. She denies bilateral lower extremity edema. She denies claudication. She denies shortness of breath with activity, shortness of breath at rest, orthopnea, or PND. She denies chronic cough. She denies significant, sudden weight gain. She denies lightheadedness, dizziness, near-syncope, or syncope. She denies blood in urine, blood in stool, or epistaxis. He denies fever with chills. She denies myalgia. She denies fatigue. Her exercise level has remained stable. Intake Vital Signs 11/26/23 09:53 09/14/24 06:47 12/01/24 11:18 12/01/24 11:25 Height 5 ft 2 in 5 ft 2 in 5 ft 2 in Weight: 133 lb BP 130/75 H Blood Pressure Location Lt brachial Position Sitting Respiration 16 Pulse 65 Pulse Source Monitor Intake Visit Reasons: 1 y fu / JAH @ 10:30 Ela Teacher Required: No Accompanied by: Sister Is patient in pain?: No Allergies sertraline (From Zoloft) Adverse Reaction (Verified 12/01/24 11:19) Other Medications ???Medication ???Instructions ???Recorded ???Confirmed ???Type cholecalciferol (vitamin D3) 25 1,000 unit PO DAILY REPLACEMENT 12/01/24 History mcg (1,000 unit) tablet (Vitamin D3) cyanocobalamin (vitamin B-12) 1,000 mcg sublingual DAILY 9 12/01/24 History 1,000 mcg sublingual tablet replacement citalopram 10 mg tablet 10 mg PO QHS depression 12/31/20 0 12/01/24 History biotin 1,000 mcg chewable tablet 1,000 mcg PO DAILY SUPPLEMENT 07/2312/01/24 History ipratropium bromide 42 mcg (0.06 2 spray intranasal BID PRN NASAL 0 05/06/21 12/01/24 History %) nasal spray pramipexole 0.5 mg tablet 0.75 mg PO QHS RLS 05/06/21 History fexofenadine 180 mg tablet 180 mg PO DAILY PRN allergy 12/01/24 History (Allergy Relief (fexofenadine)) ascorbic acid (vitamin C) 500 mg 500 mg PO DAILY supplement 3 12/01/24 History tablet calcium 600 mg-D3 800 unit-mag11 1 tab PO DAILY REPLACEMENT 3 12/01/24 History 50 co-wxgw-bvyqbw-stephanie-s .borat tablet (Caltrate 600-D Plus Minerals) gabapentin 300 mg capsule 600 mg PO QHS 07/02/23 12/01/24 Hi story lactase 3,000 unit tablet (Dairy 9,000 unit PO TID PRN lactose 12/2512/01/24 History Relief) intolerance gabapentin 300 mg capsule 300 mg PO DAILY 11/26/23 12/01/24 History multivitamin 1 tab PO DAILY 11/26/23 12/01/24 H istory simvastatin 10 mg tablet 10 mg PO QHS cholesterol #90 tabs 06/02/24 12/01/24 Rx warfarin 1 mg tablet 1 mg PO .COMPLEX 09/12/24 12/01/24 History Ejection fraction %: 55 Have you fallen in the past year?: Yes (5- gets tripped up) [facility] Medical History Hematoma Skin ulcer of hip with fat layer exposed Loss of hearing Wears hearing aid Wears glasses Cancer High cholesterol Restless legs History of IBS Diverticulosis History of diverticulitis History of echocardiogram History of pacemaker Cardiology follow-up encounter Osteopenia GI bleed Non-smoker CPAP (puneet (more content not included)... Normal [facility] International normalized rat io (INR) measurement by fingerstickOrdered By: Real Gibson on 12-01-2024 INR Coag (BldC) [Relative time] 3.0 [facility] Comment on above: Critical Value > 4.0 Pacemaker Checkon 12-01-2024 Pacemaker Check [facility] [address] [place] [address]. [address] [place] [address] Pacemaker Check Date of Service: 12/01/241715 MR#: [id number] Acct: [id number] Name: GLORIA MATHEW Rep #: [id number] : 1940 From: Karla Hong Age/Sex: 84/F [place] [facility] [place]: Signed Billing Codes PM Device Codes: 66534 PM Dev Prog Eval, Dual Assessment and Plan Assessment and Plan (1) Presence of permanent cardiac pacemaker: Status: Chronic Comment: [employer] Evelin XT DR [id number] (2) Atrial fibrillation: Status: Chronic Qualifiers: Atrial fibrillation type: paroxysmal Qualified Code(s): I48.0 - Paroxysmal atrial fibrillation 12/01/241716 Date Karla Flores Signature: Date (if applicable) CC: Normal [facility] Protime w/INR Fingerstickon 12-01-2024 INR Coag (PPP) [Relative time] 3.0 {INR} Normal [facility] Comment on above: Result Comment: Crit ical Value > 4.0 Performed By: #### L 300.3900 #### [facility] [address] [place], [address] Protime [place] 31.6 SEC High 11.7-14.9 [facility] Comment on above: Performed By: #### L 300.3900 #### [facility] [address] [place], [address] Whole blood prothrombin time Ordered By: Real Gibson on 12-01-2024 PT Coag (Bld) [Time] 31.6 s High 11.7-14.9 [facility] normalized rat io (INR) measurement by fingerstickOrdered By: Real Gibson on 11-09-2024 INR Coag (BldC) [Relative time] 2.0 [facility] Comment on above: Critical Value > 4.0 Prothrombin Time w/INRon INR Normal [facility] Comment on above: Order Comment: Comme nts: STANDING ORDER Result Comment: PT I S A FINGERSTICK Performed By: #### L 500.2500, L506.1000 #### [facility] [address] [place], [address] PROTIME Normal 11.7-14.9 [facility] Comment on above: Order Comment: Comme nts: STANDING ORDER Result Comment: PT I S A FINGERSTICK Performed By: #### L 500.2500, L506.1000 #### [facility] [address] [place], [address] Protime w/INR Fingerstickon 11-09-2024 INR Coag (PPP) [Relative time] 2.0 {INR} Normal [facility] Comment on above: Result Comment: Crit ical Value > 4.0 Performed By: #### L 9200.0000 #### [facility] [address] [place], [place], [phone] Protime Coagsen 21.8 SEC High 11.7-14.9 [facility] Comment on above: Performed By: #### L 9200.0000 #### [facility] [address] [place], [place], [phone] Whole blood prothrombin time Ordered By: [place] Gibson on 11-09-2024 PT Coag (Bld) [Time] 21.8 s High 11.7-14.9 [facility] Prothrombin Time w/INRon INR Coag (PPP) [Relative time] 1.6 {INR} Normal [facility] Comment on above: Performed By: #### L 300.3900 #### [facility] [address] [place], [address] PT Coag (PPP) [Time] 19.1 s High 11.7-14.9 [facility] Comment on above: Performed By: #### L 300.3900 #### [facility] [address] [place], [address] Prothrombin timeOrdered By: Real Gibson on 11-02-2024 PT Coag (PPP) [Time] 19.1 s High 11.7-14.9 [facility] International normalized rat io (INR) calculationOrdered By: Real Gibson on 10-07-2024 INR Coag (Bld) [Relative time] 1.8 {INR} [facility] Prothrombin Time w/INRon INR Coag (PPP) [Relative time] 1.8 {INR} Normal [facility] Comment on above: Performed By: #### L 300.3900 #### [facility] [address] [place], [address] PT Coag (PPP) [Time] 21.2 s High 11.7-14.[address] [facility] Comment on above: Performed By: #### L 300.3900 #### [facility] [address] [place], [address] Prothrombin timeOrdered By: Real Gibson on 10-07-2024 PT Coag (PPP) [Time] 21.2 s High 11.7-14.9 [facility] Colonoscopy Reporton 025 Colonoscopy Report [facility] Medical Records Department [address] [place] [address] Colonoscopy Report MR#: [id number] Acct: [id number] Name: GLORIA MATHEW Rep #: [id number] : 1940 83 From: Avtar Desir MD PCP: Dr. Samantha Anglin MD Status:[facility] Patient Name: Gloria Mathew Procedure Date: 09/14/2024 9:02 AM Date of : 1940 Age: 83 Procedure: Colonoscopy Indications: Hematochezia, Melena, Iron deficiency anemia Providers: Avtar Desir MD Referring MD: Samantha Anglin Md Medicines: See the Anesthesia note for documentation of the administered medications Patient Profile: Refer to note in patient chart for documentation of history and physical. Last Colonoscopy: 1 year ago. Complications: No immediate complications. Estimated blood loss: Minimal. Procedure: Pre-Anesthesia Assessment: - The heart rate, respiratory rate, oxygen saturations, blood pressure, adequacy of pulmonary ventilation, and response to care were monitored throughout the procedure. After I obtained informed consent, the scope was passed under direct vision. Throughout the procedure, the patient's blood pressure, pulse, and oxygen saturations were monitored continuously. The was introduced through the anus and advanced to the cecum, identified by the appendiceal orifice, IC valve and transillumination. The colonoscopy was technically difficult and complex due to multiple diverticula in the colon. Successful completion of the procedure was aided by withdrawing and reinserting the scope. The patient tolerated the procedure fairly well. The quality of the bowel preparation was adequate to identify polyps greater than 5 mm in size. Scope In: 9:03:41 AM Scope Withdrawal Time 0 hours 32 minutes 55 seconds Scope Out: 9:49:56 AM Total Procedure Duration Time 0 hours 46 minutes 15 seconds Findings: The perianal and digital rectal examinations were normal. A 3 mm polyp was found in the ascending colon. The polyp was semi-sessile. Biopsies were taken with a cold forceps for histology. Estimated blood loss: 3 mL requiring treatment with electrocautery. Many small and large-mouthed diverticula were found in the entire colon. There was no evidence of diverticular bleeding. No biopsies or other specimens were collected for this exam. A 3 mm, non-bleeding polyp was found in the sigmoid colon. The polyp was semi-sessile. Biopsies were taken with a cold forceps for histology. Estimated blood loss was minimal. Anal papilla(e) were hypertrophied. No biopsies or other specimens were collected for this exam. Impression: - One 3 mm polyp in the ascending colon. Biopsied. - Severe diverticulosis in the entire examined colon. There was no evidence of diverticular bleeding. No specimens collected. - One 3 mm, non-bleeding polyp in the sigmoid colon. Biopsied. - Anal papilla(e) were hypertrophied. No specimens collected. Recommendation: - Discharge patient to home (via wheelchair). - Full liquid diet today. - Resume Coumadin (warfarin) at prior dose in 2 days. Refer to managing physician for further adjustment of therapy. - Await pathology results. - Telephone my office for pathology results in 1 week. - Repeat colonoscopy is recommended. The colonoscopy date will be determined after pathology results from today's exam become available for review. Procedure Code(s): --- Professional --- 33913, Colonoscopy, flexible; with biopsy, single or multiple Diagnosis Code(s): --- Professional --- D12.2, Benign neoplasm of ascending colon D12.5, Benign neoplasm of sigmoid colon K62.89, Other specified diseases of anus and rectum K92.1, Melena (includes Hematochezia) D50.9, Iron deficiency anemia, unspecified K57.30, Diverticulosis of large intestine without perforation or abscess without bleeding CPT copyright 2021 [employer]. All rights reserved. The codes documented in this report are preliminary and upon senior staff psychologist review may be revised to meet current compliance requirements. Avtar Desir MD 09/14/2024 10:08:16 AM This report has been signed electronically. Number of Addenda: 0 Note Initiated On: 09/14/2024 9:02 AM 09/14/24 1008 Date Avtar Desir MD Cosigner Signature: Date (if indicated) CC: Dr. Samantha Anglin MD; Dr. Avtar Desir MD Date Dictated: 09/14/24 0902 Date Transcribed: 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: LORRIE Signed Normal [facility] EGD Reporton 09-14-2024 EGD Report [facility] Medical Records Department [address] [place] [address] EGD Report MR#: [id number] Acct: [id number] Name: GLORIA MATHEW Rep #: [id number] : 1940 83 From: Avtar Desir MD PCP: Dr. Samantha Anglin MD Status:[facility] Patient Name: Gloria Mathew Procedure Date: 09/14/2024 7:48 AM Date of : 1940 Age: 83 Procedure: Upper GI endoscopy Indications: Iron deficiency anemia, Suspected esophageal reflux Providers: Avtar Desir MD Referring MD: Samantha Anglin Md Medicines: See the Anesthesia note for documentation of the administered medications Patient Profile: Refer to note in patient chart for documentation of history and physical. Complications: No immediate complications. Estimated blood loss: Minimal. Procedure: Pre-Anesthesia Assessment: - The heart rate, respiratory rate, oxygen saturations, blood pressure, adequacy of pulmonary ventilation, and response to care were monitored throughout the procedure. After obtaining informed consent, the endoscope was passed under direct vision. Throughout the procedure, the patient's blood pressure, pulse, and oxygen saturations were monitored continuously. The Endoscope was introduced through the mouth, and advanced to the second part of duodenum. The upper GI endoscopy was somewhat difficult due to excessive bleeding. Successful completion of the procedure was aided by controlling the bleeding. The patient tolerated the procedure fairly well. Scope In: 8:22:34 AM Scope Out: 8:59:49 AM Total Procedure Duration Time 0 hours 37 minutes 15 seconds Findings: A few 2 to 4 mm semi-sessile polyps with no bleeding were found in the duodenal bulb. Biopsies were taken with a cold forceps for histology. Estimated blood loss: 3 mL requiring treatment with placement of hemostatic clip(s). Localized erythematous mucosa without bleeding was found in the gastric antrum. No biopsies or other specimens were collected for this exam. Multiple 2 to 5 mm pedunculated and sessile polyps with no bleeding and no stigmata of recent bleeding were found in the gastric fundus. The polyp was removed with a hot snare. Resection and retrieval were complete using a suction (via the working channel). [Clip Device]. The Z-line was irregular and was found 41 cm from the incisors. No biopsies or other specimens were collected for this exam. A medium-sized hiatal hernia was present. No biopsies or other specimens were collected for this exam. The cardia and gastric fundus were normal on retroflexion. Impression: - A few duodenal polyps. Biopsied. - Erythematous mucosa in the antrum. No specimens collected. - Multiple gastric polyps. Resected and retrieved. - Z-line irregular, 41 cm from the incisors. No specimens collected. - Medium-sized hiatal hernia. No specimens collected. Recommendation: - Discharge patient to home (via wheelchair). - Full liquid diet for 2 days. - Resume in 2 days at prior dose in 2 days. Refer to managing physician for further adjustment of therapy. - Await pathology results. - Telephone my office for pathology results in 1 week. Procedure Code(s): --- Professional --- 24010, Esophagogastroduodeno scopy, flexible, transoral; with removal of tumor(s), polyp(s), or other lesion(s) by snare technique 36537, 59, Esophagogastroduodeno scopy, flexible, transoral; with biopsy, single or multiple Diagnosis Code(s): --- Professional --- K31.7, Polyp of stomach and duodenum K31.89, Other diseases of stomach and duodenum K22.89, Other specified disease of esophagus K44.9, Diaphragmatic hernia without obstruction or gangrene D50.9, Iron deficiency anemia, unspecified CPT copyright 2022 [employer]. All rights reserved. The codes documented in this report are preliminary and upon senior staff psychologist review may be revised to meet current compliance requirements. Avtar Desir MD 09/14/2024 10:01:12 AM This report has been signed electronically. Number of Addenda: 0 Note Initiated On: 09/14/2024 7:48 AM 09/14/24 1001 Date Avtar Desir MD Cosigner Signature: Date (if indicated) CC: Dr. Samantha Anglin MD; Dr. Avtar Desir MD Date Dictated: 09/14/24 0748 Date Transcribed: 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: LORRIE Signed Normal [facility] International normalized rat io (INR) calculationOrdered By: Salomón Kay on 09-14-2024 INR Coag (Bld) [Relative time] 1.5 {INR} [facility] MR/POSTOP.ANEon 09-14-2024 MR/POSTOP.[facility] Medical Records Department [address] [place] [address] Anesthesia Postop Eval I 09/14/24 1001 MR#: [id number] Acct: [id number] Name: GLORIA MATHEW Rep #: [id number] : 1940 83 From: Bud Mckee CRNA PCP: Dr. Samantha Anglin MD Status:REG SDC Y Race: C Location: [facility]04-03 Anesthesia: Postop Eval I Current Vital Signs Temperature: 97.1 F Pulse Rate: 60 Blood Pressure: 143/67 Respiratory Rate: 16 Pulse Ox: 99 Assessment Airway patent: Yes Spontaneous unlabored respirations: Yes nausea: No Vomiting: No Anesthesia Complication: No Fluid Hydration Crystalloid volume administer (ml): 800 Total IV fluid infused: 800 Progress Note Anesthesia document: Postop Eval 1 completed: Yes 09/14/24 1002 Date Bud Mckee [facility] Jenigner Signature: Date CC: Signed Normal [facility] MR/[id number] 09-14-2024 MR/POSTOPAN2 [facility] Medical Records Department [address] [place] [address] Anesthesia Postop Eval II 09/14/24 1142 MR#: [id number] Acct: [id number] Name: GLORIA MATHEW Rep #: [id number] : 1940 83 From: Harry Albright MD PCP: Dr. Samantha Anglin MD Status:[facility] Y Race: C Location: EN Anesthesia Postop Eval I Sum Postop Eval Completion status Anesthesia document: Postop Eval 1 completed: Yes Anesthesia Postop Eval I Summary Anesthesia Postop Eval I Summary: Anesthesia Postop Eval I: Assessment Summary Airway patent Yes 09/14/24 10:01 [facility]TNES Spontaneous unlabored Yes 09/14/24 10:01 [facility]TNES respirations Mental status nausea No 09/14/24 10:01 [facility] Vomiting No 09/14/24 10:01 [facility]TNES Anesthesia Postop Eval I: Fluid Summary Crystalloid volume administer 800 09/14/24 10:01 [facility]TNES (ml) Colloids volume administered ( ml) Blood Product volume administered (ml) Total IV fluid infused 800 09/14/24 10:01 [facility]TNES Anesthesia Postop Eval I: Summary Notes Anesthesia Complication No 09/14/24 10:01 [facility]TNES Anesthesia Complication Comment: Post-operative progress note Anesthesia: Postop Eval II Evaluation Mental status: Awake Pain Level: 0 nausea: No Vomiting: No 09/14/24 1142 Date Harry Flores Signature: Date CC: Signed Normal [facility] Prothrombin Time w/INRon INR Coag (PPP) [Relative time] 1.5 {INR} Normal [facility] Comment on above: Performed By: #### L 300.3900 #### [facility] [address] [place], [place], [address] PT Coag (PPP) [Time] 18.2 s High 11.7-14.9 [facility] Comment on above: Performed By: #### L 300.3900 #### [facility] [address] [place], [address] Prothrombin timeOrdered By: Salomón Kay on 09-14-2024 PT Coag (PPP) [Time] 18.2 s High 11.7-14.9 [facility] Protime w/INR Fingerstickon 09-14-2024 INR Coag (PPP) [Relative time] 1.6 {INR} Normal [facility] Comment on above: Result Comment: Crit ical Value > 4.0 Performed By: #### L 9200.0000 #### [facility] [address] [place], [place], [address] Protime Coagsen 17.9 SEC High 11.7-14.9 [facility] Comment on above: Performed By: #### L 9200.0000 #### [facility] [address] [place], [place], [address] Surgery Specimen Level Christin 09-14-2024 Surgery Specimen Level IV -------- Patient Age/Sex Location Account Attending Physician -------- GLORIA MATHEW 83/F EN [id number] Dr. Avtar Desir MD -------- Specimen: [id number] Received: 09/14/24 Status: ALLISON Dupont Num: [id number] Spec Type: COLON BX Subm Dr: Dr. Avtar Desir MD HEADER OPERATION: Colonoscopy with polyp biopsy and bipolar probe to site, EGD PRE-OP DIAGNOSIS: Bright red blood per rectum, history of adenomatous polyp of colon, history of melena TISSUE SUBMITTED: A- Duodenal bulb mucosa biopsy, B- Fundal polyps - multiple, C- Ascending colon polyp biopsy, D- Sigmoid polyp biopsy -------- MICROSCOPIC DIAGNOSIS A. Small bowel, duodenal bulb, biopsy: * Gastric-type mucosa consistent with gastric metaplasia/heterotopi a. * Scant small intestinal mucosa noted. B. Stomach, fundal polyps, biopsy: * Fundic gland polyp, multiple fragments. C. Ascending colon, polyp, biopsy: * Tubular adenoma. D. Sigmoid colon, polyp, biopsy: * Hyperplastic polyp. MICROSCOPIC DESCRIPTION Slides are reviewed. GROSS DESCRIPTION A. Received in formalin in a container labeled with the patient's name, date of , and duodenal bulb mucosa biopsy is a 0.4 x 0.3 x 0.2 cm fragment of mendoza-pink mucosal tissue. Submitted in toto in A1. B. Received in formalin in a container labeled with the patient's name, date of , and fundal polyps multiple are multiple mendoza-pink fragments of mucosal tissue measuring 1.7 x 1.0 x 0.3 cm in aggregate. Submitted in toto in B1. C. Received in formalin in a container labeled with the patient's name, date of , and ascending colon polyp biopsy are 2 mendoza-pink fragments of mucosal tissue measuring 0.2 x 0.1 x 0.1 cm and 0.5 x 0.2 x 0.2 cm. Submitted in toto in C1. D. Received in formalin in a container labeled with the patient's name, date of , and sigmoid polyp biopsy are 3 small mendoza-pink fragments of mucosal tissue each measuring 0.2 x 0.2 x 0.2 cm. Submitted in toto in D1. [facility] 09-14-2024 -------- Patient Age/Sex Location Account Attending Physician -------- GLORIA MATHEW 83/F EN [id number] Dr. Avtar Desir MD -------- [facility]:[id number] -------- Patient Age/Sex Location Account Attending Physician -------- GLORIA MATHEW EN [id number] Dr. Avtar Desir MD -------- Signed (signature on file) Dr. Ciera Del Angel MD 09/20/24 1612 -------- Normal [facility] Comment on above: Performed By: #### L 300.3900 #### [facility] [address] [facility] [place], [address] Whole blood prothrombin time Ordered By: Avtar Desir on 09-14-2024 PT Coag (Bld) [Time] 17.9 s High 11.7-14.9 [facility] MR/PAT.Ellen 09-12-2024 MR/PAT.HUMBERTO [facility] Medical Records Department [address] [place] [address] PAT - Anesthesia 09/12/24 1649 MR#: [id number] Acct: [id number] Name: GLORIA MATHEW Rep #: [id number] : 1940 83 From: Salomón Kay MD PCP: Dr. Samantha Anglin MD Status:PRE [facility] Y Race: C Location: EN Pre-Assessment Diagnosis/Proposed Procedure Planned Operative Procedure(s): EGD, COLONOSCOPY Anesthesia History Anesthesia History - lump room supervisor: Anesthesia History - lump room supervisor Hx Hospitalization No 09/12/24 09:27 Any Problems With Anesthesia No 09/12/24 09:27 Cholinesterase deficiency No 09/12/24 09:27 You/Your Family Experience No 09/12/24 09:27 fever (hyperthermia) with Relationship Recent Exposure to Contagious No 09/10/23 08:51 Disease Does patient have nerve No 09/12/24 09:27 stimulator Patient instructed to have device shut off --Does patient have Pacemaker or ICD? When Was Last Pacemaker Check QUESTION #4 FULL TEXT: You/Your Family Experience fever (hyperthermia) with Anesthesia Last Oral Intake Last Oral intake: Last Oral Intake NPO since Meds taken in AM with sips of water? Meds patient instructed to take am of surgery PONV PONV - lump room supervisor: PONV - lump room supervisor Female Yes 09/12/24 09:27 HX of Motion Sickness No 09/12/24 09:27 HX of N/V After Surgery No 09/12/24 09:27 Non-Smoker Yes 09/12/24 09:27 Duration of Surgery greater No 09/12/24 09:27 than 60 minutes Number of Risk Factors 2 09/12/24 09:27 PONV Score Moderate Risk 09/12/24 09:27 Height Weight Height Weight: Anesthesia: Height Weight Height 5 ft 2 in 08/01/24 08:09 Respiratory Assessment Respiratory Assessment - lump room supervisor: Respiratory Tract Infection Hx - lump room supervisor Hx Respiratory Tract Infection No 09/12/24 09:27 STOP Sleep Apnea STOP Sleep Apnea - lump room supervisor: STOP Sleep Apnea - lump room supervisor Hx Hypertension No 09/12/24 09:27 Hx Sleep Apnea Yes 09/12/24 09:27 CPAP Yes 09/12/24 09:27 BIPAP No 09/12/24 09:27 Do you snore loudly (louder than talking or can be heard Do you often feel tired/ fatigued/ sleepy during daytime? Has anyone observed you stop breathing during sleep? STOP Results Positive 09/12/24 09:27 QUESTION #5 FULL TEXT : Do you snore loudly (louder than talking or can be heard through closed doors)? Tobacco Use History Tobacco Use History - lump room supervisor: Tobacco Use History - lump room supervisor Tobacco Use Smoking Status Never smoker 09/12/24 09:27 Hx Tobacco Use No 09/12/24 09:27 Years Smoking Packs Smoked per Day Smoking Cessation Date was within the last 15 years Hx Smoking Cessation Date Hx Smoking Cessation Counseling Hematologic Medial History Hematologic Hx - lump room supervisor: Hematologic Medical Hx - ward maid Hx of Blood Transfusion Yes 09/12/24 09:27 Hx of Transfusion in last 3 No 09/12/24 09:27 Months Date of Last Transfusion (if within last 3 months) Ever experience any problems No 09/12/24 09:27 with transfusion(s)? Specify any problems Hx of Preganancy in last 3 No 09/12/24 09:27 Months Nurse Filling Out Transfusion MGRIFFITH 09/12/24 09:27 Questions: Date: 09/12/24 09/12/24 09:27 Time: 09:09/12/24 09:27 Patient unable to answer at this time (ie. confused, unrespo /Reproductio n History /Reproductiv e History - lump room supervisor: /Reproductiv e Hx- lump room supervisor Hx Now No 09/12/24 09:27 Gestational Age (in weeks): EDC: Hx Hx Para Hx Section SAB No 09/12/24 09:27 [facility] Medical History (Updated 09/12/24 @ 09:41 by Patito Haines) Hematoma Skin ulcer of hip with fat layer exposed Loss of hearing Wears hearing aid Wears glasses Cancer High cholesterol Restless legs History of IBS Diverticulosis History of diverticulitis History of echocardiogram History of pacemaker Cardiology follow-up encounter Osteopenia GI bleed Non-smoker CPAP (continuous positive airway pressure) dependence Pacemaker 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 Normal [facility] Ferritinon 08-25-2024 Ferritin [Mass/Vol] 96 ng/mL Normal 22-378 [facility] Comment on above: Performed By: #### L 567.6550, L300.3900 #### [facility] [address] [place], [place], [id number] International normalized rat io (INR) calculationOrdered By: Real Gibson on 08-25-2024 INR Coag (Bld) [Relative time] 2.0 {INR} [facility] Prothrombin Time w/INRon INR Coag (PPP) [Relative time] 2.0 {INR} Normal [facility] Comment on above: Performed By: #### L 745.6546, L300.3900 #### [facility] [address] [place], [place], [id number] PT Coag (PPP) [Time] 23.1 s High 11.7-14.9 [facility] Comment on above: Performed By: #### L [id number], L300.3900 #### [facility] [address] [place], [place], [address] Prothrombin timeOrdered By: Real Paige on 08-25-2024 PT Coag (PPP) [Time] 23.1 s High 11.7-14.9 [facility] Serum or plasma ferritin marianne surement (mass/volume)Ordered By: [place] Paige on 08-25-2024 Ferritin [Mass/Vol] 96 ng/mL 22-378 [facility] Protime w/INR Fingerstickon 08-15-2024 INR Coag (PPP) [Relative time] 2.2 {INR} Normal [facility] Comment on above: Result Comment: Crit ical Value > 4.0 Performed By: #### L 9200.0000 ####[facility] [address] [place], [place], [address] Protime Coagsen 24.0 SEC High 11.7-14.9 [facility] Comment on above: Performed By: #### L 9200.0000 ####[facility] [address] [place], [place], [address] Whole blood prothrombin time Ordered By: Real Paige on 08-15-2024 PT Coag (Bld) [Time] 24.0 s High 11.7-14.9 [facility] Surgery Visit Reporton 08-01 Surgery Visit Report [facility] [address] [place], [place] [address] OFFICE VISIT Date of Service: 08/01/24 MR#: [id number] Acct: [id number] Name: GLORIA MATHEW Rep #: [id number] : 1940 Provider: Dr. Avtar painting MD Age/Sex: 83/F Location: [facility] Status: Signed Intake Vital Signs 06/02/24 10:24 08/01/24 08:09 Height 5 ft 2 in 5 ft 2 in Weight: 140 lb 6 oz BMI 25.7 BP 138/73 H Blood Pressure Location Rt brachial Position Sitting Respiration 18 Pulse 69 Pulse Source Monitor Temp 97.4 F L Temp Source Temporal Pulse Oximetry (%) 98 Oxygen Delivery Method room air Intake Visit Reasons: RECALL LETTER/RECTAL BLEEDING Chief Complaint: recall letter/ rectal bleeding Accompanied by: Sister Is patient in pain?: No Allergies sertraline (From Zoloft) Adverse Reaction (Verified 08/01/24 08:10) Other Medications ???Medication ???Instructions ???Recorded ???Confirmed ???Type cholecalciferol (vitamin D3) 25 1,000 unit PO DAILY REPLACEMENT 08/01/24 History mcg (1,000 unit) tablet (Vitamin D3) cyanocobalamin (vitamin B-12) 1,000 mcg sublingual DAILY 9 08/01/24 History 1,000 mcg sublingual tablet replacement citalopram 10 mg tablet 10 mg PO QHS depression 12/31/20 0 08/01/24 History biotin 1,000 mcg chewable tablet 1,000 mcg PO DAILY SUPPLEMENT 07/2308/01/24 History ipratropium bromide 42 mcg (0.06 2 spray intranasal BID PRN NASAL 0 05/06/21 08/01/24 History %) nasal spray pramipexole 0.5 mg tablet 0.75 mg PO QHS RLS 05/06/21 History fexofenadine 180 mg tablet 180 mg PO DAILY PRN allergy 08/01/24 History (Allergy Relief (fexofenadine)) acetaminophen 500 mg tablet 1,000 mg (2 x 500 mg) PO Q6H PRN 0 10/16/21 08/01/24 Rx PRN Pain Score 1-3 #0 tabs ascorbic acid (vitamin C) 500 mg 500 mg PO DAILY supplement 3 08/01/24 History tablet calcium 600 mg-D3 800 unit-mag11 1 tab PO DAILY REPLACEMENT 3 08/01/24 History 50 ax-lcep-mpljvf-stephanie-s .borat tablet (Caltrate 600-D Plus Minerals) gabapentin 300 mg capsule 600 mg PO QHS 07/02/23 08/01/24 Hi story lactase 3,000 unit tablet (Dairy 9,000 unit PO TID PRN lactose 05/0 12/2508/01/24 History Relief) intolerance ferrous sulfate [Iron (ferrous 325 mg PO TID 11/26/23 08/01/24 Hi story sulfate)] folic acid 50 mg PO DAILY 11/26/23 08/01/24 H istory gabapentin 300 mg capsule 300 mg PO DAILY 11/26/23 08/01/24 History multivitamin 1 tab PO DAILY 11/26/23 08/01/24 H istory simvastatin 10 mg tablet 10 mg PO QHS cholesterol #90 tabs 06/02/24 08/01/24 Rx warfarin 1 mg tablet 1 mg PO .COMPLEX #120 TABLETS 05/0608/01/24 Rx Have you fallen in the past year?: No PFSH Medical History Hematoma Skin ulcer of hip with fat layer exposed Loss of hearing Wears hearing aid Wears glasses Cancer High cholesterol Restless legs History of IBS Diverticulosis History of diverticulitis History of echocardiogram History of pacemaker Cardiology follow-up encounter Osteopenia GI bleed Non-smoker CPAP (continuous positive airway pressure) dependence Pacemaker 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, 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 Atrial fibrillation Neuropathic pain Restless leg syndrome Allergic rhinitis Depression Vitamin B12 deficiency Hyperlipidemia Vitamin D deficiency Osteoporosis 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 Presence of permanent cardiac pacemaker ( 05/20/21) Depression GERD (gastroesophageal reflux disease) Sleep apnea Anticoagulated on warfarin Acute non-ST elevation myocardial infarction (NSTEMI) Hernia Endometrial cancer Neuropathy Mitral and aortic valve disease Atrial fibrillation Atrial fibrillation with RVR Surgical History S/P MVR (mitral valve replacement) History of cardiac catheterization History of hernia surgery History of ankle surgery Hx of atrioventricular node ablation S/P left atrial appendage ligation S/P Maze operation for atrial fibrillation S/P left atrial appendage ligation History of hysterectomy for cancer History of cholecystectomy S/P ablation operation for arrhythmia History of maze procedure History of mitral valve replacement Family History Mother Heart disease CAD (coronary artery disease) Hypertension Breast cancer Father Heart disease Bradycardia Bradycardia requiring pacemaker placement. Colon cancer Social History household members: none Smoking Status: Never smoker alcohol (more content not included)... Normal [facility] INR Coag (BldC) [Relative ti me]Ordered By: Real Paige on 07-29-2024 INR Coag (Bld) [Relative time] 2.1 {INR} [facility] Comment on above: Critical Value > 4.0 International normalized rat io (INR) measurement by fingerstickOrdered By: [place] Paige on 07-29-2024 INR Coag (BldC) [Relative time] 2.1 [facility] Comment on above: Critical Value > 4.0 PT Coag (Bld) [Time]Ordered By: Real Paige on 07-29-2024 Bedside Prothrombin Time 23.0 SEC High 11.7-14.9 [facility] Protime w/INR Fingerstickon 07-29-2024 INR Coag (PPP) [Relative time] 2.1 {INR} Normal [facility] Comment on above: Result Comment: Crit ical Value > 4.0 Performed By: #### L 500.2500, L506.1000 #### [facility] [address] [place], [address] Protime Coagsen 23.0 SEC High 11.7-14.9 [facility] Comment on above: Performed By: #### L 500.2500, L506.1000 #### [facility] [address] [place], [address] Whole blood prothrombin time Ordered By: Real Paige on 07-29-2024 PT Coag (Bld) [Time] 23.0 s High 11.7-14.9 [facility] Prothrombin Time w/INRon INR Coag (PPP) [Relative time] 3.9 {INR} Normal [facility] Comment on above: Order Comment: MICK Simon STICK WAS 4.0 Performed By: #### L 500.2500, L506.1000 #### [facility] [address] [place], [address] PT Coag (PPP) [Time] 38.7 s High 11.7-14.9 [facility] Comment on above: Order Comment: BOONEE R STICK WAS 4.0 Performed By: #### L 500.2500, L506.1000 #### [facility] [address] [place], [address] Prothrombin timeOrdered By: [place] Paige on 07-21-2024 PT Coag (PPP) [Time] 38.7 s High 11.7-14.9 [facility] Protime w/INR Fingerstickon 07-21-2024 INR Coag (PPP) [Relative time] 4.0 {INR} Invalid Interpretation Code [facility] Comment on above: Result Comment: Crit ical Value > 4.0 Performed By: #### L 500.2500, L506.1000 #### [facility] [address] [place], [address] Protime Coagsen 40.1 SEC High 11.7-14.9 [facility] Comment on above: Performed By: #### L 500.2500, L506.1000 #### [facility] [address] [place], [address] Absolute lymphocyte countOrd ered By: [place] Paige on 07-14-2024 Lymphocytes Auto (Unsp spec) [#/Vol] 0.98 10*3/uL 0.83-4.51 [facility] Absolute neutrophil countOrd ered By: [place] Paige on 07-14-2024 Neutrophils (Bld) [#/Vol] 4.4 10*3/uL 2.0-7.7 [facility] Automated lymphocyte count a s percentage of total leukocytesOrdered By: Real Paige on 07-14-2024 Lymphocytes/100 WBC Auto (Unsp spec) 15.7 % Low 19-41 [facility] Basophil percentageOrdered B y: Real Apige on 07-14-2024 Basophils/100 WBC (Bld) 1.1 % High 0-[address] [facility] CBC W/Diff, Automatedon 07-02 Absolute Lymph 0.98 X10 3/uL Normal 0.83-4.51 [facility] Comment on above: Performed By: #### L 100.0100, L300.3900 ####[facility] [address] [place], [address] Absolute Neut 4.4 X10 3/uL Normal 2.0-7.7 [facility] Comment on above: Performed By: #### L 100.0100, L300.3900 ####[facility] [address] [place], [address] Basophils/100 WBC (Bld) 1.1 % High 0-[address] [facility] Comment on above: Performed By: #### L 100.0100, L300.3900 ####[facility] [address] [place], [address] Eosinophils/100 WBC (Bld) 4.5 % Normal 0-5 [facility] Comment on above: Performed By: #### L 100.0100, L300.3900 ####[facility] [address] [place], [address] Erythrocyte distribution width (RBC) [Ratio] 13.7 % Normal 11.6-14.6 [facility] Comment on above: Performed By: #### L 100.0100, L300.3900 ####[facility] [address] [place], [address] Hematocrit (Bld) [Volume fraction] 35.8 % Low 37-47 [facility] Comment on above: Performed By: #### L 100.0100, L300.3900 ####[facility] [address] [place], [address] Hemoglobin (Bld) [Mass/Vol] 11.9 g/dL Low 12.0-15.0 [facility] Comment on above: Performed By: #### L 100.0100, L300.3900 ####[facility] [address] [place], [address] IG% 0.300 Normal 0.0-0.9 [facility] Comment on above: Result Comment: IG% - Immature Granulocytes (promyelocytes, myelocytes and metamyelocytes) > 1% indicates that a LEFT SHIFT is Present. Performed By: #### L 100.0100, L300.3900 ####[facility] [address] [place], [address] Lymphocytes/100 WBC (Bld) 15.7 % Low 19-41 [facility] Comment on above: Performed By: #### L 100.0100, L300.3900 ####[facility] [address] [place], [address] MCH (RBC) [Entitic mass] 29.5 pg Normal 27.0-32.0 [facility] Comment on above: Performed By: #### L 100.0100, L300.3900 ####[facility] [address] [place], [address] MCHC (RBC) [Mass/Vol] 33.2 g/dL Normal 32-[address] [facility] Comment on above: Performed By: #### L 100.0100, L300.3900 ####[facility] [address] [place], [address] MCV (RBC) [Entitic vol] 88.6 fL Normal 81-[address] [facility] Comment on above: Performed By: #### L 100.0100, L300.3900 ####[facility] [address] [place], [address] Monocytes/100 WBC (Bld) 8.0 % Normal 0-[address] [facility] Comment on above: Performed By: #### L 100.0100, L300.3900 ####[facility] [address] [place], [address] Neutrophils/100 WBC (Bld) 70.4 % High 47-70 [facility] Comment on above: Performed By: #### L 100.0100, L300.3900 ####[facility] [address] [place], [address] Nucleated RBC (Bld) [#/Vol] 0 10*3/uL Normal 0-5 [facility] Comment on above: Performed By: #### L 100.0100, L300.3900 ####[facility] [address] [place], [address] Platelet mean volume (Bld) [Entitic vol] 9.2 fL Normal 6.2-12.0 [facility] Comment on above: Performed By: #### L 100.0100, L300.3900 ####[facility] [address] [place], [address] Platelets (Bld) [#/Vol] 226 10*3/uL Normal 150-450 [facility] Comment on above: Performed By: #### L 100.0100, L300.3900 ####[facility] [address] [place], [address] RBC (Bld) [#/Vol] 4.04 10*6/uL Low 4.2-5.4 [facility] Comment on above: Performed By: #### L 100.0100, L300.3900 ####[facility] [address] [place], [address] RDW SD 44.8 fl High 35.1-43.9 [facility] Comment on above: Performed By: #### L 100.0100, L300.3900 ####[facility] [address] [place], [address] WBC (Bld) [#/Vol] 6.3 10*3/uL Normal 4.4-11.0 [facility] Comment on above: Performed By: #### L 100.0100, L300.3900 ####[facility] [address] [place], [place], [address] Eosinophil percentageOrdered By: Real Paige on 07-14-2024 Eosinophils/100 WBC (Bld) 4.5 % 0-5 [facility] Erythrocyte distribution wid th ratioOrdered By: [facility]-2024 Erythrocyte distribution width (RBC) [Ratio] 13.7 % 11.6-14.6 [facility] Erythrocyte distribution wid th standard deviationOrdered By: [facility] on 07-14-2024 Erythrocyte distribution width (RBC) [Entitic vol] 44.8 fL High 35.1-43.9 [facility] Erythrocyte distribution width (RBC) [Ratio] 44.8 fl High 35.1-43.9 [facility] Hematocrit Auto (Bld) [Volum e fraction]Ordered By: [place] Paige on 07-14-2024 Hematocrit (Bld) [Volume fraction] 35.8 % Low 37-47 [facility] Hemoglobin measurementOrdere d By: Real Paige on 07-14-2024 Hemoglobin (Bld) [Mass/Vol] 11.9 g/dL Low 12.0-15.0 [facility] Immature granulocytes/100 WB C Auto (Bld)Ordered By: Real Paige on 07-14-2024 Immature granulocytes/100 WBC (Bld) 0.300 % 0.0-0.9 [facility] Comment on above: IG% - Immature Granu locytes (promyelocytes, myelocytes and metamyelocytes) > 1% indicates that a LEFT SHIFT is Present. Lymphocytes Auto (Unsp spec) [#/Vol]Ordered By: Real Paige on 07-14-2024 Lymphocytes (Bld) [#/Vol] 0.98 10*3/uL 0.83-4.51 [facility] Lymphocytes/100 WBC Auto (Un sp spec)Ordered By: [place] Paige on 07-14-2024 Lymphocytes/100 WBC (Bld) 15.7 % Low 19-41 [facility] MCV (mean corpuscular volume ) determinationOrdered By: Real Paige on 07-14-2024 MCV (RBC) [Entitic vol] 88.6 fL 81-[address] [facility] Mean corpuscular hemoglobin (MCH) determinationOrdered By: Real Paige on 07-14-2024 MCH (RBC) [Entitic mass] 29.5 pg 27.0-32.0 [facility] Mean corpuscular hemoglobin concentration (MCHC) determinationOrdered By: Real Paige on 07-14-2024 MCHC (RBC) [Mass/Vol] 33.2 g/dL 32-[address] [facility] Mean platelet volume determi nationOrdered By: [place] Paige on 07-14-2024 Platelet mean volume (Bld) [Entitic vol] 9.2 fL 6.2-12.0 [facility] Monocyte percentageOrdered B y: [place] Paige on 07-14-2024 Monocytes/100 WBC (Bld) 8.0 % 0-[address] [facility] Neutrophil percentageOrdered By: [place] Paige on 07-14-2024 Neutrophils/100 WBC (Bld) 70.4 % High 47-70 [facility] Nucleated red blood cell per centageOrdered By: Real Paige on 07-14-2024 Nucleated RBC/100 WBC (Bld) [Ratio] 0 % 0-5 [facility] Platelet countOrdered By: Cy ril Paige on 07-14-2024 Platelets (Bld) [#/Vol] 226 10*3/uL 150-450 [facility] Prothrombin Time w/INRon INR Coag (PPP) [Relative time] 3.1 {INR} Normal [facility] Comment on above: Performed By: #### L 100.0100, L300.3900 ####[facility] [address] [place], [address] PT Coag (PPP) [Time] 32.4 s High 11.7-14.9 [facility] Comment on above: Performed By: #### L 100.0100, L300.3900 ####[facility] [address] [place], [address] RBC Auto (Bld) [#/Vol]Ordere d By: Real Gibson on 07-14-2024 RBC (Bld) [#/Vol] 4.04 10*6/uL Low 4.2-5.4 [facility] White blood cell (WBC) count Ordered By: Real Gibson on 07-14-2024 WBC (Bld) [#/Vol] 6.3 10*3/uL 4.4-11.0 [facility] Protime w/INR Fingerstickon 06-20-2024 INR Coag (PPP) [Relative time] 2.6 {INR} Normal [facility] Comment on above: Result Comment: Crit ical Value > 4.0 Performed By: #### L 9200.0000 ####[facility] [address] [place], [place], [address] Protime Coagsen 26.2 SEC High 11.7-14.9 [facility] Comment on above: Performed By: #### L 9200.0000 ####[facility] [address] [place], [address] Echo Complete W/ Contraston 06-17-2024 Echo Complete W/ Contrast [facility] [address] [place] [address] Echo Complete W/ Contrast 06/17/24 1257 MR#: [id number] Acct: [id number] Name: GLORIA MATHEW Rep #: [id number] : 1940 83 From: Real Gibson MD Attending Dr: Speedy Bacon NP-C Status: REG CLI Ordering Dr: Speedy Bacon NP MEDICINE ASSISTANT-C Date: 06/17/24 Location: [facility] Sex: F C Admitted: Reason For Study Reason For Study: Re-Evaluate EF and Valve Procedure This was a 2D Doppler, Color Flow transthoracic echocardiogram. Contrast injection was performed. Exam performed in department. Left Ventricle Normal LV size. Left ventricular systolic function is normal. Stage 3 diastolic dysfunction. The left ventricular ejection fraction is 55 %. No regional wall motion abnormalities noted. Right Ventricle Normal RV size. ICD or pacer leads identified within the right ventricle. Normal systolic function. Atria The left atrium is moderately enlarged. Normal right atrium. Mitral Valve Bioprosthetic mitral valve. Tricuspid Valve Normal tricuspid valve. Mild (1+) tricuspid valve insufficiency. Pulmonary artery systolic pressure is 27 mmHg. Aortic Valve Trisinus/trileaflet aortic valve. Mild (1+) eccentric aortic valve insufficiency. Pulmonic Valve Normal pulmonic valve. Great Vessels Normal aortic root. The pulmonary artery is normal size. Inferior vena cava collapse with respiration. Pericardium/Pleural No pericardial effusion. Medication 22 gauge I.V. with prn adaptor inserted into left arm. Diluted definity 1.5ml given slow IV push to enhance endocardial definition. MMode/2D Measurements Calculations LVIDd: 4.3 cm IVSd: 1.2 cm Ao root diam: 3.3 cm LVIDs: 3.2 cm LVPWd: 1.1 cm RVDd: 4.6 cm FS: 26.2 % LAV(MOD-bp): 104.6 ml LVAd ap4: 29.5 cm2 SV(MOD-sp4): 48.9 ml LAV(MOD-bp) Indexed: 63.8 ml/m2 LVLd ap4: 7.4 cm SI(MOD-sp4): 29.9 ml/m2 LAV(MOD-sp2): 110.2 ml EDV(MOD-sp4): 98.6 ml LAV(MOD-sp4): 99.4 ml EDV(sp4-el): 100.0 ml LVAs ap4: 20.0 cm2 LVLs ap4: 6.9 cm ESV(MOD-sp4): 49.6 ml ESV(sp4-el): 49.6 ml EF(MOD-sp4): 49.6 % EF(sp4-el): 50.4 % SV(sp4-el): 50.3 ml LA A4 area: 27.7 cm2 LA dimension(2D): 5.5 cm RA A4 area: 19.1 cm2 TAPSE: 1.4 cm Time Measurements MV dec time: 0.41 sec Doppler Measurements Calculations MV E max miles: 135.3 cm/sec Lat Peak E' Miles: 8.3 cm/sec Med Peak E' Miles: 8.8 cm/sec MV A max miles: 31.3 cm/sec E/E' lat: 16.2 E/E' med: 15.4 MV E/A: 4.3 MV V2 max: 165.3 cm/sec MV P1/2t max miles: 166.9 cm/sec Ao V2 max: 163.8 cm/sec MV max P.9 mmHg MV P1/2t: 115.5 msec Ao max P.7 mmHg MV V2 mean: 83.6 cm/sec MV dec slope: 423.4 cm/sec2 Ao V2 mean: 106.0 cm/sec MV mean P.6 mmHg MVA(P1/2t): 1.9 cm2 Ao mean P.3 mmHg MV V2 VTI: 46.5 cm Ao V2 VTI: 31.5 cm AV (velocity ratio): 0.55 AI max miles: 315.1 cm/sec LV V1 max: 90.1 cm/sec PA V2 max: 71.2 cm/sec AI max P.7 mmHg LV V1 max P.3 mmHg AI dec slope: 145.9 cm/sec2 LV V1 mean P.8 mmHg AI P1/2t: 632.5 msec LV V1 mean: 63.8 cm/sec LV V1 VTI: 17.3 cm TR max miles: 242.2 cm/sec TR max P.5 mmHg ECHO/Echo Complete W/ Contrast Interpretation Summary Normal LV size. Left ventricular systolic function is normal. Bioprosthetic mitral valve. Stage 3 diastolic dysfunction. The left atrium is moderately enlarged. The left ventricular ejection fraction is 55 %. Contrast injection was performed. Ordering Physician: Speedy Bacon Referring Physician: Speedy Bacon Performed By: Nikita Pro RCS 06/17/241657 Date Real Gibson MD CC: TAN Bacon; Dr. 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: Signed Normal [facility] INR Coag (BldC) [Relative ti me]Ordered By: Real Gibson on 06-17-2024 INR Coag (Bld) [Relative time] 2.6 {INR} [facility] Comment on above: Critical Value > 4.0 International normalized rat io (INR) measurement by fingerstickOrdered By: Real Gibson on 06-17-2024 INR Coag (BldC) [Relative time] 2.6 [facility] Comment on above: Critical Value > 4.0 PT Coag (Bld) [Time]Ordered By: Real Gibson on 06-17-2024 Bedside Prothrombin Time 26.2 SEC High 11.7-14.9 [facility] Whole blood prothrombin time Ordered By: Real Gibson on 06-17-2024 PT Coag (Bld) [Time] 26.2 s High 11.7-14.9 [facility] Cardiology Visit Reporton Cardiology Visit Report [facility] [address] [place], [place] [address] OFFICE VISIT Date of Service: 06/02/24 MR#: [id number] Acct: [id number] Name: GLORIA MATHEW Rep #: [id number] : 1940 Provider: TAN bundy Age/Sex: 83/F Location: [facility] Status: Signed HPI HPI History of Present Illness Details: GLORIA MATHEW, is a 83 year old white female who presents for cardiovascular follow up visit. The patient was evaluated at [facility] on 05-07-2021 for concerns of her recurrent atrial dysrhythmia/fibrillat ion with RVR and concerns of abnormal cardiac enzymes. She underwent diagnostic cardiac catheterization at that time. She was not found to have angiographically significant CAD and required no revascularization therapy. Again, she presented to [facility] on 05/18/2021 for evaluation based upon recurrent atrial fibrillation with RVR superimposed upon a history of MVR, status post maze procedure, status post left atrial appendage ligation. She attempted her as needed flecainide/Tambocor therapy at home, and it was unsuccessful. She then presented to the emergency room. Her cardiac rhythm was compatible with atrial fibrillation with RVR. She underwent synchronized biphasic DC cardioversion x4 times. She did not regain sinus rhythm at that time. She was subsequently placed on additional medical therapy which included IV amiodarone. She was then transferred to [facility] for an electrophysiology evaluation on 05-24-2021. She underwent an atrioventricular node ablation which induced complete heart block. Patient underwent a cardiac pacemaker. She denies chest, arm, jaw, or neck discomfort. She denies palpitations. She denies bilateral lower extremity edema. She denies claudication. She denies shortness of breath with activity, shortness of breath at rest, orthopnea, or PND. She denies chronic cough. She denies significant, sudden weight gain. She denies lightheadedness, dizziness, near-syncope, or syncope. She denies blood in urine, blood in stool, or epistaxis. He denies fever with chills. She denies myalgia. She denies fatigue. Her exercise level has remained stable. Intake Vital Signs 11/26/23 09:53 02/03/24 12:04 06/02/24 10:24 Height 5 ft 2 in 5 ft 2 in 5 ft 2 in Weight: 139 lb BMI 25.4 BP 131/82 H Blood Pressure Location Lt brachial Position Sitting Respiration 18 Pulse 80 Pulse Source Monitor Pulse Oximetry (%) 96 Intake Visit Reasons: 6 M FU Ela Teacher Required: No Is patient in pain?: No Allergies sertraline (From Zoloft) Adverse Reaction (Verified 06/02/24 10:24) Other Medications ???Medication ???Instructions ???Recorded ???Confirmed ???Type cholecalciferol (vitamin D3) 25 1,000 unit PO DAILY REPLACEMENT 06/02/24 History mcg (1,000 unit) tablet (Vitamin D3) cyanocobalamin (vitamin B-12) 1,000 mcg sublingual DAILY 9 06/02/24 History 1,000 mcg sublingual tablet replacement citalopram 10 mg tablet 10 mg PO QHS depression 12/31/20 0 06/02/24 History biotin 1,000 mcg chewable tablet 1,000 mcg PO DAILY SUPPLEMENT 07/2306/02/24 History ipratropium bromide 42 mcg (0.06 2 spray intranasal BID PRN NASAL 0 05/06/21 06/02/24 History %) nasal spray pramipexole 0.5 mg tablet 0.75 mg PO QHS RLS 05/06/21 History fexofenadine 180 mg tablet 180 mg PO DAILY PRN allergy 06/02/24 History (Allergy Relief (fexofenadine)) acetaminophen 500 mg tablet 1,000 mg (2 x 500 mg) PO Q6H PRN 0 10/16/21 06/02/24 Rx PRN Pain Score 1-3 #0 tabs ascorbic acid (vitamin C) 500 mg 500 mg PO DAILY supplement 3 06/02/24 History tablet calcium 600 mg-D3 800 unit-mag11 1 tab PO DAILY REPLACEMENT 3 06/02/24 History 50 eh-ngdx-mseagh-stephanie-s .borat tablet (Caltrate 600-D Plus Minerals) gabapentin 300 mg capsule 600 mg PO QHS 07/02/23 06/02/24 Hi story lactase 3,000 unit tablet (Dairy 9,000 unit PO TID PRN lactose 05/0 12/2506/02/24 History Relief) intolerance ferrous sulfate [Iron (ferrous 325 mg PO TID 11/26/23 06/02/24 Hi story sulfate)] folic acid 50 mg PO DAILY 11/26/23 06/02/24 H istory gabapentin 300 mg capsule 300 mg PO DAILY 11/26/23 06/02/24 History multivitamin 1 tab PO DAILY 11/26/23 06/02/24 H istory simvastatin 10 mg tablet 10 mg PO QHS cholesterol #90 tabs 06/02/24 06/02/24 Rx warfarin 1 mg tablet 1 mg PO .COMPLEX #120 TABLETS 05/0606/02/24 Rx Have you fallen in the past year?: Yes [facility] Medical History (Updated 02/11/24 @ 00:02 by Background Daemon) Hematoma Skin ulcer of hip with fat layer exposed Loss of hearing Wears hearing aid Wears glasses Cancer High cholesterol Restless legs History of IBS Diverti (more content not included)... Normal [facility] INR Coag (BldC) [Relative ti me]Ordered By: Real Gibson on 06-02-2024 INR Coag (Bld) [Relative time] 2.2 {INR} [facility] Comment on above: Critical Value > 4.0 International normalized rat io (INR) measurement by fingerstickOrdered By: Real Gibson on 06-02-2024 INR Coag (BldC) [Relative time] 2.2 [facility] Comment on above: Critical Value > 4.0 PT Coag (Bld) [Time]Ordered By: Real Gibson on 06-02-2024 Bedside Prothrombin Time 22.7 SEC High 11.7-14.9 [facility] Protime w/INR Fingerstickon 06-02-2024 INR Coag (PPP) [Relative time] 2.2 {INR} Normal [facility] Comment on above: Result Comment: Crit ical Value > 4.0 Performed By: #### L 500.2500, L506.1000 #### [facility] [address] [place], [place], [id number] Protime Coagsen 22.7 SEC High 11.7-14.9 [facility] Comment on above: Performed By: #### L 500.2500, L506.1000 #### [facility] [address] [place], [address] Whole blood prothrombin time Ordered By: Real Gibson on 06-02-2024 PT Coag (Bld) [Time] 22.7 s High 11.7-14.9 [facility] Protime w/INR Fingerstickon 05-20-2024 INR Coag (PPP) [Relative time] 3.6 {INR} Normal [facility] Comment on above: Result Comment: Crit ical Value > 4.0 Performed By: #### L 500.2500, L506.1000 #### [facility] [address] [place], [address] Protime Coagsen 35.4 SEC High 11.7-14.9 [facility] Comment on above: Performed By: #### L 500.2500, L506.1000 #### [facility] [address] [place], [address] [id number] DOrdered By: Alfred CABRERA on 05-17-2024 Vitamin D 25-Hydroxy 64.1 ng/mL [facility] Comment on above: Vitamin D 25(OH) Sta tus Range Deficiency <20 ng/mL (50nmol/L) Insufficiency 20 - 30 ng/mL (50 - 75 nmol/L) Sufficiency 30 - 100 ng/mL (75 - 250 nmol/L) Toxicity >100 ng/mL (>250 nmol/L) Basic Metabolic Profile (BMP )on 05-17-2024 BUN/CRE 21.0 RATIO High 10-20 [facility] Comment on above: Performed By: #### L 500.2500, L506.1000 #### [facility] [address] [place], [address] CA,Total 9.2 mg/dL Normal 8.5-10.1 [facility] Comment on above: Performed By: #### L 500.2500, L506.1000 #### [facility] [address] [place], [address] Chloride [Moles/Vol] 107 mmol/L Normal 98-107 [facility] Comment on above: Performed By: #### L 500.2500, L506.1000 #### [facility] [address] [place], [address] CO2 [Moles/Vol] 32.0 mmol/L Normal 21.0-32.0 [facility] Comment on above: Performed By: #### L 500.2500, L506.1000 #### [facility] [address] [place], [address] Creatinine [Mass/Vol] 1.05 mg/dL High 0.55-1.[address] [facility] Comment on above: Result Comment: The validity of the calculated GFR GFRAA in patients over 70 years has not been determined. Clinical correlation is essential. Performed By: #### L 500.2500, L506.1000 #### [facility] [address] [place], [address] EST GFR - AA 65 mL/min Normal >60 [facility] Comment on above: Result Comment: Afri can Eritrean GFR Calc Performed By: #### L 500.2500, L506.1000 #### [facility] [address] [place], [address] GAP 2 Low 5-15 [facility] Comment on above: Performed By: #### L 500.2500, L506.1000 #### [facility] [address] [place], [address] GFR/1.73 sq M.predicted among non-blacks MDRD (S/P/Bld) [Vol rate/Area] 53 mL/min/{1.73_m2} Low >60 [facility] Comment on above: Result Comment: Non- GFR Calc Performed By: #### L 500.2500, L506.1000 #### [facility] [address] [place], [address] Glucose [Mass/Vol] 108 mg/dL High 74-106 [facility] Comment on above: Result Comment: Fast ing Glucose result from 100 to 125 mg/dL suggests IMPAIRED HOMEOSTASIS per A.D.A. criteria. Performed By: #### L 500.2500, L506.1000 #### [facility] [address] [place], [address] Potassium [Moles/Vol] 3.9 mmol/L Normal 3.5-5.[address] [facility] Comment on above: Performed By: #### L 500.2500, L506.1000 #### [facility] [address] [place], [address] Sodium [Moles/Vol] 141 mmol/L Normal 136-145 [facility] Comment on above: Performed By: #### L 500.2500, L506.1000 #### [facility] [address] [place], [address] Urea nitrogen [Mass/Vol] 22 mg/dL High 7-18 [facility] Comment on above: Performed By: #### L 500.2500, L506.1000 #### [facility] [address] [place], [address] Blood urea nitrogen (BUN)/cr eatinine ratioOrdered By: SHELLY CABRERA on 05-17-2024 Urea nitrogen/Creatinine [Mass ratio] 21.0 mg/mg High 10-20 [facility] Carbon dioxide measurementOr dered By: SHELLY CABRERA on 05-17-2024 CO2 [Moles/Vol] 32.0 mmol/L 21.0-32.0 [facility] Chloride measurementOrdered By: SHELLY CABRERA on 05-17-2024 Chloride [Moles/Vol] 107 mmol/L 98-107 [facility] Estimated glomerular filtrat ion rate (GFR) AmericanOrdered By: SHELLY CABRERA on 05-17-2024 Estimated GFR (MDRD) Amer 65 mL/min >60 [facility] Comment on above: GFR Calc Glomerular filtration rate ( GFR) estimationOrdered By: SHELLY CABRERA on 05-17-2024 Estimated GFR (MDRD) Non-Af Amer 53 mL/min Low >60 [facility] Comment on above: Non- GFR Calc GFR/1.73 sq M.predicted among non-blacks MDRD (S/P/Bld) [Vol rate/Area] 53 mL/min/{1.73_m2} Low >60 [facility] Comment on above: Non- GFR Calc Glucose measurementOrdered B y: SHELLY CABRERA on 05-17-2024 Glucose [Mass/Vol] 108 mg/dL High 74-106 [facility] Comment on above: Fasting Glucose resu lt from 100 to 125 mg/dL suggests IMPAIRED HOMEOSTASIS per A.D.A. criteria. Potassium measurementOrdered By: SHELLY CABRERA on 05-17-2024 Potassium [Moles/Vol] 3.9 mmol/L 3.5-5.[address] [facility] Serum anion gap measurementO rdered By: SHELLY CABRERA on 05-17-2024 Anion gap [Moles/Vol] 2 mmol/L Low 5-[address] [facility] Serum or plasma calcium lashawn urement (mass/volume)Ordered By: SHELLY CABRERA on 05-17-2024 Calcium [Mass/Vol] 9.2 mg/dL 8.5-10.1 [facility] Serum or plasma creatinine m easurement (mass/volume)Ordered By: SHELLY CABRERA on 05-17-2024 Creatinine [Mass/Vol] 1.05 mg/dL High 0.55-1.[address] [facility] Comment on above: The validity of the calculated GFR & GFRAA in patients over 70 years has not been determined. Clinical correlation is essential. Serum or plasma urea nitroge n measurement (mass/volume)Ordered By: SHELLY CABRERA on 05-17-2024 Urea nitrogen [Mass/Vol] 22 mg/dL High 7-18 [facility] Sodium levelOrdered By: JULIÁN CABRERA on 05-17-2024 Sodium [Moles/Vol] 141 mmol/L 136-145 [facility] Vitamin D,25 Hydroxyon 05-17 Vitamin D 25-OH 64.1 ng/mL Normal [facility] Comment on above: Result Comment: Amita min D 25(OH) Status Range Deficiency <20 ng/mL (50nmol/L) Insufficiency 20 - 30 ng/mL (50 - 75 nmol/L) Sufficiency 30 - 100 ng/mL (75 - 250 nmol/L) Toxicity >100 ng/mL (>250 nmol/L) Performed By: #### L 500.2500, L506.1000 #### [facility] [address] [place], [address] Absolute neutrophil countOrd ered By: Samantha Anglin on 05-03-2024 Neutrophils (Bld) [#/Vol] 4.5 10*3/uL 2.0-7.7 [facility] Basophil percentageOrdered B y: Samantha Anglin on 05-03-2024 Basophils/100 WBC (Bld) 1.3 % High 0-[address] [facility] CBC W/Diff, Automatedon 04-05 Absolute Lymph 1.01 X10 3/uL Normal 0.83-4.51 [facility] Comment on above: Order Comment: Order Date: 04/18/24Order Info: 183- - CBCD Performed By: #### L 500.2500, L506.1000 #### [facility] [address] [place], [address] Absolute Neut 4.5 X10 3/uL Normal 2.0-7.7 [facility] Comment on above: Order Comment: Order Date: 04/18/24Order Info: 183- - CBCD Performed By: #### L 500.2500, L506.1000 #### [facility] [address] [place], [address] Basophils/100 WBC (Bld) 1.3 % High 0-[address] [facility] Comment on above: Order Comment: Order Date: 04/18/24Order Info: 0184-1 - CBCD Performed By: #### L 500.2500, L506.1000 #### [facility] [address] [place], [address] Eosinophils/100 WBC (Bld) 2.7 % Normal 0-5 [facility] Comment on above: Order Comment: Order Date: 04/18/24Order Info: 0184-1 - CBCD Performed By: #### L 500.2500, L506.1000 #### [facility] [address] [place], [address] Erythrocyte distribution width (RBC) [Ratio] 13.1 % Normal 11.6-14.6 [facility] Comment on above: Order Comment: Order Date: 04/18/24Order Info: 183- - CBCD Performed By: #### L 500.2500, L506.1000 #### [facility] [address] [place], [address] Hematocrit (Bld) [Volume fraction] 41.0 % Normal 37-47 [facility] Comment on above: Order Comment: Order Date: 04/18/24Order Info: 183- - CBCD Performed By: #### L 500.2500, L506.1000 #### [facility] [address] [place], [address] Hemoglobin (Bld) [Mass/Vol] 13.5 g/dL Normal 12.0-15.0 [facility] Comment on above: Order Comment: Order Date: 04/18/24Order Info: 183- - CBCD Performed By: #### L 500.2500, L506.1000 #### [facility] [address] [place], [address] IG% 0.300 Normal 0.0-0.9 [facility] Comment on above: Order Comment: Order Date: 04/18/24Order Info: 183- - CBCD Result Comment: IG% - Immature Granulocytes (promyelocytes, myelocytes and metamyelocytes) > 1% indicates that a LEFT SHIFT is Present. Performed By: #### L 500.2500, L506.1000 #### [facility] [address] [place], [address] Lymphocytes/100 WBC (Bld) 16.3 % Low 19-41 [facility] Comment on above: Order Comment: Order Date: 04/18/24Order Info: 018-1 - CBCD Performed By: #### L 500.2500, L506.1000 #### [facility] [address] [place], [address] MCH (RBC) [Entitic mass] 29.5 pg Normal 27.0-32.0 [facility] Comment on above: Order Comment: Order Date: 04/18/24Order Info: 4-1 - CBCD Performed By: #### L 500.2500, L506.1000 #### [facility] [address] [place], [address] MCHC (RBC) [Mass/Vol] 32.9 g/dL Normal 32-[address] [facility] Comment on above: Order Comment: Order Date: 04/18/24Order Info: 183- - CBCD Performed By: #### L 500.2500, L506.1000 #### [facility] [address] [place], [address] MCV (RBC) [Entitic vol] 89.5 fL Normal 81-99 [facility] Comment on above: Order Comment: Order Date: 04/18/24Order Info: 183- - CBCD Performed By: #### L 500.2500, L506.1000 #### [facility] [address] [place], [address] Monocytes/100 WBC (Bld) 7.1 % Normal 0-10 [facility] Comment on above: Order Comment: Order Date: 04/18/24Order Info: 4-1 - CBCD Performed By: #### L 500.2500, L506.1000 #### [facility] [address] [place], [address] Neutrophils/100 WBC (Bld) 72.3 % High 47-70 [facility] Comment on above: Order Comment: Order Date: 04/18/24Order Info: 0184-1 - CBCD Performed By: #### L 500.2500, L506.1000 #### [facility] [address] [place], [address] Nucleated RBC (Bld) [#/Vol] 0 10*3/uL Normal 0-5 [facility] Comment on above: Order Comment: Order Date: 04/18/24Order Info: 0184-1 - CBCD Performed By: #### L 500.2500, L506.1000 #### [facility] [address] [place], [address] Platelet mean volume (Bld) [Entitic vol] 8.5 fL Normal 6.2-12.0 [facility] Comment on above: Order Comment: Order Date: 04/18/24Order Info: 018- - CBCD Performed By: #### L 500.2500, L506.1000 #### [facility] [address] [place], [address] Platelets (Bld) [#/Vol] 246 10*3/uL Normal 150-450 [facility] Comment on above: Order Comment: Order Date: 04/18/24Order Info: 018- - CBCD Performed By: #### L 500.2500, L506.1000 #### [facility] [address] [place], [address] RBC (Bld) [#/Vol] 4.58 10*6/uL Normal 4.2-5.4 [facility] Comment on above: Order Comment: Order Date: 04/18/24Order Info: 018- - CBCD Performed By: #### L 500.2500, L506.1000 #### [facility] [address] [place], [address] RDW SD 42.5 fl Normal 35.1-43.9 [facility] Comment on above: Order Comment: Order Date: 04/18/24Order Info: 018-1 - CBCD Performed By: #### L 500.2500, L506.1000 #### [facility] [address] [place], [address] WBC (Bld) [#/Vol] 6.2 10*3/uL Normal 4.4-11.0 [facility] Comment on above: Order Comment: Order Date: 04/18/24Order Info: 0184-1 - CBCD Performed By: #### L 500.2500, L506.1000 #### [facility] [address] [place], [address] Eosinophil percentageOrdered By: [facility] on 05-03-2024 Eosinophils/100 WBC (Bld) 2.7 % 0-5 [facility] Erythrocyte distribution wid th ratioOrdered By: [facility] Derrek on 05-03-2024 Erythrocyte distribution width (RBC) [Ratio] 13.1 % 11.6-14.6 [facility] Erythrocyte distribution wid th standard deviationOrdered By: [facility] on 05-03-2024 Erythrocyte distribution width (RBC) [Entitic vol] 42.5 fL 35.1-43.9 [facility] Hematocrit Auto (Bld) [Volum e fraction]Ordered By: [facility] on 05-03-2024 Hematocrit (Bld) [Volume fraction] 41.0 % 37-47 [facility] Hemoglobin measurementOrdere d By: [facility] on 05-03-2024 Hemoglobin (Bld) [Mass/Vol] 13.5 g/dL 12.0-15.0 [facility] Immature granulocytes/100 WB C Auto (Bld)Ordered By: [facility] on 05-03-2024 Immature granulocytes/100 WBC (Bld) 0.300 % 0.0-0.9 [facility] Comment on above: IG% - Immature Granu locytes (promyelocytes, myelocytes and metamyelocytes) > 1% indicates that a LEFT SHIFT is Present. Lymphocytes Auto (Unsp spec) [#/Vol]Ordered By: [facility] on 05-03-2024 Lymphocytes (Bld) [#/Vol] 1.01 10*3/uL 0.83-4.51 [facility] Lymphocytes/100 WBC Auto (Un sp spec)Ordered By: Samantha Anglin on 05-03-2024 Lymphocytes/100 WBC (Bld) 16.3 % Low 19-41 [facility] MCV (mean corpuscular volume ) determinationOrdered By: Samantha Anglin on 05-03-2024 MCV (RBC) [Entitic vol] 89.5 fL 81-[address] [facility] Mean corpuscular hemoglobin (MCH) determinationOrdered By: Samantha Derrek on 05-03-2024 MCH (RBC) [Entitic mass] 29.5 pg 27.0-32.0 [facility] Mean corpuscular hemoglobin concentration (MCHC) determinationOrdered By: Ivananjelica Derrek on 05-03-2024 MCHC (RBC) [Mass/Vol] 32.9 g/dL 32-[address] [facility] Mean platelet volume determi nationOrdered By: Samantha Anglin on 05-03-2024 Platelet mean volume (Bld) [Entitic vol] 8.5 fL 6.2-12.0 [facility] Monocyte percentageOrdered B y: Ivananjelica Derrek on 05-03-2024 Monocytes/100 WBC (Bld) 7.1 % 0-[address] [facility] Neutrophil percentageOrdered By: Samantha Anglin on 05-03-2024 Neutrophils/100 WBC (Bld) 72.3 % High 47-70 [facility] Nucleated red blood cell per centageOrdered By: Samantha Anglin on 05-03-2024 Nucleated RBC/100 WBC (Bld) [Ratio] 0 % 0-5 [facility] Platelet countOrdered By: Anna Anglin on 05-03-2024 Platelets (Bld) [#/Vol] 246 10*3/uL 150-450 [facility] RBC Auto (Bld) [#/Vol]Ordere d By: Samantha Anglin on 05-03-2024 RBC (Bld) [#/Vol] 4.58 10*6/uL 4.2-5.4 [facility] White blood cell (WBC) count Ordered By: Samantha Anglin on 05-03-2024 WBC (Bld) [#/Vol] 6.2 10*3/uL 4.4-11.0 [facility] INR Coag (BldC) [Relative ti me]Ordered By: Real Gibson on 04-28-2024 INR Coag (Bld) [Relative time] 3.3 {INR} [facility] Comment on above: Critical Value > 4.0 PT Coag (Bld) [Time]Ordered By: Real Gibson on 04-28-2024 Bedside Prothrombin Time 33.7 SEC High 11.7-14.9 [facility] Protime w/INR Fingerstickon 04-28-2024 INR Coag (PPP) [Relative time] 3.3 {INR} Normal [facility] Comment on above: Result Comment: Crit ical Value > 4.0 Performed By: #### L 500.2500, L506.1000 #### [facility] [address] [place], [address] Protime Coagsen 33.7 SEC High 11.7-14.9 [facility] Comment on above: Performed By: #### L 500.2500, L506.1000 #### [facility] [address] [place], [address] PT D/C Summary (1)on 024 PT D/C Summary (1) [facility] Physical Therapy [facility] [address] [place] [address]. [address] [place] [address] / REHABILITATION SERVICES DISCHARGE SUMMARY MR#: [id number] Acct: [id number] Name: GLORIA MATHEW Rep #: [id number] : 1940 83 From: Jaciel Gracia DPT, OCS, CSCS Referring Dr.: Dr. Samantha Anglin MD Status: REG R [facility] 03/04/18 SELF PAY INSURANCE Discharge Summary D/C summary: It has been my pleasure to treat GLORIA MATHEW referred by Samantha Anglin MD, with the diagnosis of Accidental fall for a total of 12 visit(s). Discharge Date: 04/07/24 Please see the following information for a summary of their discharge status. Subjective Subjective: Ready to be done. Improvement in balance notable, no falls. Trying to do ex regular at home. 90% better and will see Dr. Anglin in a week or two. Activity is normal at home and very busy. Overall Improvement % Improvement: 90 Objective Objective/Function: pt is improving w/ her balance ex and foam balance ex have improved and noted no LOB today in the clinic. Goals Goal 1:: FGA to reduce fall risk Goal Progress: Goal Met Goal 2:: I appropriate HEP strength balance vest and somatosensory to reduce fall risk Goal Progress: Goal Met Plan Plan: d/c to HEP D/C Information d/c sentence: If there are questions or concerns regarding this patient's physical therapy, please feel free to call me at [phone]. Thank you for the referral of this patient. Sincerely, Jaciel Garcia, DPT, OCS, CSCS Balance/Gait/Function al tests Balance/Special Test Scores Functional Gait Assessment Score: 30 % Disability: 0 CATSIB Score (Max score 120 seconds): 100 Lower Extremity Functional Score: 56 Improvement % Improvement: 90 04/07/24 1339 CC: Dr. Samantha Anglin MD EBG Signed Normal [facility] Protime w/INR Fingerstickon 03-30-2024 INR Coag (PPP) [Relative time] 3.0 {INR} Normal [facility] Comment on above: Result Comment: Crit ical Value > 4.0 Performed By: #### L 500.2500, L506.1000 #### [facility] [address] [place], [place], [id number] Protime Coagsen 31.0 SEC High 11.7-14.9 [facility] Comment on above: Performed By: #### L 500.2500, L506.1000 #### [facility] [address] [place] [address], [id number] SCRN MAMM (CAD)W/ADINA BILATo n 03-21-2024 SCRN MAMM (CAD)W/ADINA BILAT [facility] Imaging Services [address] [place], [place] [address] SCRN MAMM (CAD)W/ADINA BILAT MR#: [id number] Acct: [id number] Name: GLORIA MATHEW Rep #: [id number] : 1940 F 83 From: Franky morrissey MD PCP: Dr. Samantha Anglin MD Status: REG [facility] Study: SCRN MAMM (CAD)W/ADINA BILAT Date of Exam: 03/04 12/25 Exam# [id number] Ordering Dr: Samantha Anglin MD [id number] MAMMOGRAPHY - BILATERAL SCREENING REASON FOR EXAM: Female, 83 years old. Routine annual screening examination. PERTINENT HISTORY: Mother with breast cancer. History of prior right breast biopsy. TECHNIQUE: Digital bilateral breast adina (3D mammographic acquisition) in the CC and MLO projections. 2-D mediolateral oblique (MLO) and craniocaudad (CC) views of both breasts were obtained. CAD: Full Field Digital Mammography with Computer Added Detection was performed. COMPARISON: Comparison is made with prior study February 18, 2022 and December 22, 2022. FINDINGS: Breast Composition: There are scattered areas of fibroglandular density. There are no dominant masses or suspicious calcifications. Stable bilateral fat containing axillary lymph nodes. No other significant abnormalities are identified. There has been no significant change since the prior study. BI/SCRN MAMM (CAD)W/ADINA BILAT IMPRESSION: Stable bilateral screening mammogram. Yearly follow-up mammogram recommended. (A) ASSESSMENT CATEGORY: BIRADS Category 2: Benign. A letter regarding these results will be sent to the patient by the facility within 30 days. Approximately 10% of breast cancers are not detected by mammography. A normal mammogram should not delay biopsy of a clinically suspicious abnormality. [id number] Electronically Signed: Franky Grimes MD at 10:16 EST , CC: Dr. Samantha Anglin MD 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: Signed Normal [facility] - CoagulationOrde red By: Avtar Desir on 09-10-2023 INR Coag (Bld) [Relative time] 1.6 {INR} [facility] PT Coag (PPP) [Time] 19.1 s 11.7-14.9 [facility] Whole blood prothrombin time Ordered By: Avtar Desir on 09-10-2023 PT Coag (Bld) [Time] 17.1 s 11.7-14.9 [facility] Capillary blood internationa l normalized ratio (INR)Ordered By: Real Gibson on 08-27-2023 INR Coag (BldC) [Relative time] 2.2 [facility] Comment on above: Critical Value > 4.0 Whole blood prothrombin time Ordered By: Real Gibson on 08-27-2023 PT Coag (Bld) [Time] 22.7 s 11.7-14.9 [facility] Capillary blood internationa l normalized ratio (INR)Ordered By: Real Gibson on 07-27-2023 INR Coag (BldC) [Relative time] 2.2 [facility] Comment on above: Critical Value > 4.0 Whole blood prothrombin time Ordered By: Real Gibson on 07-27-2023 PT Coag (Bld) [Time] 22.8 s 11.7-14.9 [facility] Capillary blood internationa l normalized ratio (INR)Ordered By: Real Gibson on 07-13-2023 INR Coag (BldC) [Relative time] 2.2 [facility] Comment on above: Critical Value > 4.0 Whole blood prothrombin time Ordered By: Real Gibson on 07-13-2023 PT Coag (Bld) [Time] 23.0 s 11.7-14.9 [facility] Absolute lymphocyte countOrd ered By: Samantha Anglin on 07-09-2023 Lymphocytes Auto (Unsp spec) [#/Vol] 1.29 10*3/uL 0.83-4.51 [facility] Automated lymphocyte count a s percentage of total leukocytesOrdered By: Samantha Anglin on 07-09-2023 Lymphocytes/100 WBC Auto (Unsp spec) 19.5 % 19-41 [facility] Basophil percentageOrdered B y: Samantha Anglin on 07-09-2023 Basophils/100 WBC (Bld) 1.4 % 0-[address] [facility] Eosinophils/100 WBC (Bld) 2.7 % 0-5 [facility] Hemoglobin (Bld) [Mass/Vol] 13.3 g/dL 12.0-15.0 [facility] Monocytes/100 WBC (Bld) 7.9 % 0-[address] [facility] Neutrophils (Bld) [#/Vol] 4.5 10*3/uL 2.0-7.7 [facility] Neutrophils/100 WBC (Bld) 68.2 % 47-70 [facility] WBC (Bld) [#/Vol] 6.6 10*3/uL 4.4-11.0 [facility] Determination of erythrocyte mean corpuscular volume (MCV)Ordered By: Samantha Anglin on 07-09-2023 MCV (RBC) [Entitic vol] 87.7 fL 81-[address] [facility] Erythrocyte distribution wid th ratioOrdered By: Samantha Anglin on 07-09-2023 Erythrocyte distribution width (RBC) [Ratio] 13.0 % 11.6-14.6 [facility] Erythrocyte distribution wid th standard deviationOrdered By: [facility] on 07-09-2023 Erythrocyte distribution width (RBC) [Entitic vol] 41.0 fL 35.1-43.9 [facility] Hematocrit Auto (Bld) [Volum e fraction]Ordered By: Samantha Anglin on 07-09-2023 Hematocrit (Bld) [Volume fraction] 38.5 % 37-47 [facility] Immature granulocytes/100 WB C Auto (Bld)Ordered By: Samantha Anglin on 07-09-2023 Immature granulocytes/100 WBC (Bld) 0.300 % 0.0-0.9 [facility] Comment on above: IG% - Immature Granu locytes (promyelocytes, myelocytes and metamyelocytes) > 1% indicates that a LEFT SHIFT is Present. Laboratory - Hematology and Cell countsOrdered By: Samantha Anglin on 07-09-2023 MCH (RBC) [Entitic mass] 30.3 pg 27.0-32.0 [facility] MCHC (RBC) [Mass/Vol] 34.5 g/dL 32-[address] [facility] Nucleated RBC/100 WBC (Bld) [Ratio] 0 % 0-5 [facility] Platelet mean volume (Bld) [Entitic vol] 9.1 fL 6.2-12.0 [facility] Platelets (Bld) [#/Vol] 206 10*3/uL 150-450 [facility] RBC Auto (Bld) [#/Vol]Ordere d By: Samantha Anglin on 07-09-2023 RBC (Bld) [#/Vol] 4.39 10*6/uL 4.2-5.4 [facility] Absolute lymphocyte countOrd ered By: Piter Perdomo on 07-03-2023 Lymphocytes Auto (Unsp spec) [#/Vol] 1.21 10*3/uL 0.83-4.51 [facility] Automated lymphocyte count a s percentage of total leukocytesOrdered By: Piter Perdomo on 07-03-2023 Lymphocytes/100 WBC Auto (Unsp spec) 23.8 % 19-41 [facility] Basophil percentageOrdered B y: Piter Perdomo on 07-03-2023 Basophils/100 WBC (Bld) 1.4 % 0-[address] [facility] Eosinophils/100 WBC (Bld) 4.3 % 0-5 [facility] Hemoglobin (Bld) [Mass/Vol] 11.8 g/dL 12.0-15.0 [facility] Monocytes/100 WBC (Bld) 8.3 % 0-10 [facility] Neutrophils (Bld) [#/Vol] 3.1 10*3/uL 2.0-7.7 [facility] Neutrophils/100 WBC (Bld) 61.8 % 47-70 [facility] WBC (Bld) [#/Vol] 5.1 10*3/uL 4.4-11.0 [facility] Determination of erythrocyte mean corpuscular volume (MCV)Ordered By: Piter Perdomo on 07-03-2023 MCV (RBC) [Entitic vol] 90.9 fL 81-[address] [facility] Erythrocyte distribution wid th ratioOrdered By: Piter Perdomo on 07-03-2023 Erythrocyte distribution width (RBC) [Ratio] 12.8 % 11.6-14.6 [facility] Erythrocyte distribution wid th standard deviationOrdered By: Piter Perdomo on 07-03-2023 Erythrocyte distribution width (RBC) [Entitic vol] 42.4 fL 35.1-43.9 [facility] Hematocrit Auto (Bld) [Volum e fraction]Ordered By: Piter Perdomo on 07-03-2023 Hematocrit (Bld) [Volume fraction] 34.9 % 37-47 [facility] Immature granulocytes/100 WB C Auto (Bld)Ordered By: Piter Perdomo on 07-03-2023 Immature granulocytes/100 WBC (Bld) 0.400 % 0.0-0.9 [facility] Comment on above: IG% - Immature Granu locytes (promyelocytes, myelocytes and metamyelocytes) > 1% indicates that a LEFT SHIFT is Present. Laboratory - CoagulationOrde red By: Piter Perdomo on 07-03-2023 INR Coag (Bld) [Relative time] 3.0 {INR} [facility] PT Coag (PPP) [Time] 31.2 s 11.7-14.9 [facility] Laboratory - Hematology and Cell countsOrdered By: Piter Perdomo on 07-03-2023 MCH (RBC) [Entitic mass] 30.7 pg 27.0-32.0 [facility] MCHC (RBC) [Mass/Vol] 33.8 g/dL 32-[address] [facility] Nucleated RBC/100 WBC (Bld) [Ratio] 0 % 0-5 [facility] Platelet mean volume (Bld) [Entitic vol] 8.9 fL 6.2-12.0 [facility] Platelets (Bld) [#/Vol] 174 10*3/uL 150-450 [facility] RBC Auto (Bld) [#/Vol]Ordere d By: Piter Perdomo on 07-03-2023 RBC (Bld) [#/Vol] 3.84 10*6/uL 4.2-5.4 [facility] Absolute lymphocyte countOrd ered By: Cherelle Tuttle on 07-02-2023 Lymphocytes Auto (Unsp spec) [#/Vol] 0.93 10*3/uL 0.83-4.51 [facility] Automated lymphocyte count a s percentage of total leukocytesOrdered By: Cherelle Tuttle on 07-02-2023 Lymphocytes/100 WBC Auto (Unsp spec) 18.2 % 19-41 [facility] Basophil percentageOrdered B y: Piter Perdomo on 07-02-2023 Hemoglobin (Bld) [Mass/Vol] 12.5 g/dL 12.0-15.0 [facility] Basophil percentageOrdered B y: Cherelle Tuttle on 07-02-2023 Basophils/100 WBC (Bld) 1.2 % 0-[address] [facility] Bilirubin [Mass/Vol] 1.20 mg/dL 0.20-1.00 [facility] Comment on above: For patients on eltr ombopag therapy, use of Dimension [place] TBIL is not recommended. Chloride [Moles/Vol] 112 mmol/L 98-107 [facility] Eosinophils/100 WBC (Bld) 3.3 % 0-5 [facility] Glucose [Mass/Vol] 92 mg/dL 74-106 [facility] Hemoglobin (Bld) [Mass/Vol] 13.4 g/dL 12.0-15.0 [facility] Lactate [Moles/Vol] 1.5 mmol/L 0.4-2.0 [facility] Monocytes/100 WBC (Bld) 7.6 % 0-[address] [facility] Neutrophils (Bld) [#/Vol] 3.5 10*3/uL 2.0-7.7 [facility] Neutrophils/100 WBC (Bld) 69.5 % 47-70 [facility] Potassium [Moles/Vol] 3.8 mmol/L 3.5-5.[address] [facility] Comment on above: Slight Hemolysis, Re sult may be falsely increased. Protein [Mass/Vol] 6.3 g/dL 6.4-8.2 [facility] Sodium [Moles/Vol] 141 mmol/L 136-145 [facility] WBC (Bld) [#/Vol] 5.1 10*3/uL 4.4-11.0 [facility] Determination of erythrocyte mean corpuscular volume (MCV)Ordered By: Cherelle Tuttle on 07-02-2023 MCV (RBC) [Entitic vol] 89.7 fL 81-[address] [facility] Erythrocyte distribution wid th ratioOrdered By: Cherelle Tuttle on 07-02-2023 Erythrocyte distribution width (RBC) [Ratio] 12.4 % 11.6-14.6 [facility] Erythrocyte distribution wid th standard deviationOrdered By: Cherelle Tuttle on 07-02-2023 Erythrocyte distribution width (RBC) [Entitic vol] 41.0 fL 35.1-43.9 [facility] Hematocrit Auto (Bld) [Volum e fraction]Ordered By: Piter Perdomo on 07-02-2023 Hematocrit (Bld) [Volume fraction] 36.0 % 37-47 [facility] Hematocrit Auto (Bld) [Volum e fraction]Ordered By: Cherelle Tuttle on 07-02-2023 Hematocrit (Bld) [Volume fraction] 39.4 % 37-47 [facility] Immature granulocytes/100 WB C Auto (Bld)Ordered By: Cherelle Tuttle on 07-02-2023 Immature granulocytes/100 WBC (Bld) 0.200 % 0.0-0.9 [facility] Comment on above: IG% - Immature Granu locytes (promyelocytes, myelocytes and metamyelocytes) > 1% indicates that a LEFT SHIFT is Present. Laboratory - Chemistry and C hemistry - challengeOrdered By: Cherelle Tuttle on 07-02-2023 Albumin/Globulin [Mass ratio] 1.1 {ratio} 0.9-2.4 [facility] ALP [Catalytic activity/Vol] 65 U/L 45-117 [facility] ALT [Catalytic activity/Vol] 26 U/L 13-56 [facility] CO2 [Moles/Vol] 27.0 mmol/L 21.0-32.0 [facility] Globulin (S) [Mass/Vol] 3.0 g/dL 2.2-4.[address] [facility] Urea nitrogen/Creatinine [Mass ratio] 13.0 mg/mg 10-20 [facility] Laboratory - CoagulationOrde red By: Cherelle Tuttle on 07-02-2023 INR Coag (Bld) [Relative time] 2.7 {INR} [facility] PT Coag (PPP) [Time] 28.3 s 11.7-14.9 [facility] Laboratory - Hematology and Cell countsOrdered By: Cherelle Tuttle on 07-02-2023 MCH (RBC) [Entitic mass] 30.5 pg 27.0-32.0 [facility] MCHC (RBC) [Mass/Vol] 34.0 g/dL 32-[address] [facility] Nucleated RBC/100 WBC (Bld) [Ratio] 0 % 0-5 [facility] Platelet mean volume (Bld) [Entitic vol] 8.6 fL 6.2-12.0 [facility] Platelets (Bld) [#/Vol] 187 10*3/uL 150-450 [facility] No Panel InformationOrdered By: Cherelle Tuttle on 07-02-2023 Estimated Creatinine Clearance Calc 43.99 ml/min [facility] Estimated GFR (MDRD) Amer 75 mL/min >60 [facility] Comment on above: GFR Calc Estimated GFR (MDRD) Non-Af Amer 62 mL/min >60 [facility] Comment on above: Non- GFR Calc RBC Auto (Bld) [#/Vol]Ordere d By: Cherelle Tuttle on 07-02-2023 RBC (Bld) [#/Vol] 4.39 10*6/uL 4.2-5.4 [facility] Serum or plasma calcium lashawn urement (mass/volume)Ordered By: Cherelle Tuttle on 07-02-2023 Calcium [Mass/Vol] 8.2 mg/dL 8.5-10.1 [facility] Serum or plasma creatinine m easurement (mass/volume)Ordered By: Cherelle Tuttle on 07-02-2023 Creatinine [Mass/Vol] 0.92 mg/dL 0.55-1.[address] [facility] Comment on above: The validity of the calculated GFR & GFRAA in patients over 70 years has not been determined. Clinical correlation is essential. Serum or plasma urea nitroge n measurement (mass/volume)Ordered By: Cherelle Tuttle on 07-02-2023 Urea nitrogen [Mass/Vol] 12 mg/dL 7-18 [facility] Thin prep Papanicolaou smear with manual screeningOrdered By: Cherelle Tuttle on 07-02-2023 Thin prep Papanicolaou smear with manual screening 3.3 g/dL 3.2-5.0 [facility] Thin prep Papanicolaou smear with manual screening 23 U/L 15-37 [facility] Comment on above: Slight Hemolysis, Re sult may be falsely increased. Thin prep Papanicolaou smear with manual screening 2 5-15 [facility] Capillary blood internationa l normalized ratio (INR)Ordered By: Real Gibson on 06-30-2023 INR Coag (BldC) [Relative time] 2.7 [facility] Comment on above: Critical Value > 4.0 Whole blood prothrombin time Ordered By: Real Gibson on 06-30-2023 PT Coag (Bld) [Time] 27.3 s 11.7-14.9 [facility] Capillary blood internationa l normalized ratio (INR)Ordered By: Real Gibson on 06-02-2023 INR Coag (BldC) [Relative time] 2.2 [facility] Comment on above: Critical Value > 4.0 Whole blood prothrombin time Ordered By: Real Gibson on 06-02-2023 PT Coag (Bld) [Time] 22.5 s 11.7-14.9 [facility] Laboratory - CoagulationOrde red By: Real Gibson on 04-13-2023 INR Coag (Bld) [Relative time] 2.1 {INR} [facility] Comment on above: Critical Value > 4.0 Whole blood prothrombin time Ordered By: Real Gibson on 04-13-2023 PT Coag (Bld) [Time] 23.3 s 11.7-14.9 [facility] Basic Metabolic Panelon 12 Anion gap [Moles/Vol] 8 mmol/L Normal 8-15 [facility] Comment on above: Performed By: #### B MP #### [facility] [address] [place] [address] Calcium [Mass/Vol] 10.0 mg/dL Normal 8.6-10.6 [facility] Comment on above: Performed By: #### B MP #### [facility] [address] [place] [address] Chloride [Moles/Vol] 105 mmol/L Normal 98-107 [facility] Comment on above: Performed By: #### B MP #### [facility] [address] [place] [address] CO2 [Moles/Vol] 26 mmol/L Normal 22-29 [facility] Comment on above: Performed By: #### B MP #### [facility] [address] [place] [address] Creatinine [Mass/Vol] 0.9 mg/dL Normal 0.5-1.2 [facility] Comment on above: Performed By: #### B MP #### [facility] [address] [place] [address] eGFR -Amer >=60 Normal >=60 [facility] Comment on above: Performed By: #### B MP #### [facility] [address] [place] [address] GFR/1.73 sq M.predicted among non-blacks MDRD (S/P/Bld) [Vol rate/Area] mL/min/{1.73_m2} Normal >=60 [facility] Comment on above: Performed By: #### B MP #### [facility] [address] [place] [address] Glucose [Mass/Vol] 80 mg/dL Normal 74-109 [facility] Comment on above: Performed By: #### B MP #### [facility] [address] [place] [address] Potassium [Moles/Vol] 4.2 mmol/L Normal 3.4-5.1 [facility] Comment on above: Performed By: #### B MP #### [facility] [address] [place] [address] Sodium [Moles/Vol] 139 mmol/L Normal 136-145 [facility] Comment on above: Performed By: #### B MP #### [facility] [address] [place] [address] Urea nitrogen [Mass/Vol] 18 mg/dL Normal 10-24 [facility] Comment on above: Performed By: #### B MP #### [facility] [address] [place], [place] [id number] Vitamin D 25-Hydroxyon 04-06 Biotin Interference Samples should not b e taken from patients receiving therapy with high biotin doses (i.e. >5mg/day) until at least 8 hours following the last biotin administration. Normal [facility] Comment on above: Performed By: #### V ITD #### [facility] [address] [place] [address] Vitamin D 36.8 ng/mL Normal >=30.0 [facility] Comment on above: Performed By: #### V ITD #### [facility] [address] [place] [address] Laboratory - CoagulationOrde red By: Real Gibson on 03-23-2023 INR Coag (Bld) [Relative time] 2.2 {INR} [facility] Comment on above: Critical Value > 4.0 Whole blood prothrombin time Ordered By: [place] Paige on 03-23-2023 PT Coag (Bld) [Time] 24.1 s 11.7-14.9 [facility] Laboratory - CoagulationOrde red By: Real Paige on 03-02-2023 INR Coag (Bld) [Relative time] 1.5 {INR} [facility] Comment on above: Critical Value > 4.0 Whole blood prothrombin time Ordered By: Real Paige on 03-02-2023 PT Coag (Bld) [Time] 17.1 s 11.7-14.9 [facility] Laboratory - CoagulationOrde red By: [place] Paige on 01-29-2023 INR Coag (Bld) [Relative time] 2.3 {INR} [facility] Comment on above: Critical Value > 4.0 Whole blood prothrombin time Ordered By: Real Paige on 01-29-2023 PT Coag (Bld) [Time] 24.6 s 11.7-14.9 [facility] Laboratory - CoagulationOrde red By: Real Gibson on 12-22-2022 INR Coag (Bld) [Relative time] 2.1 {INR} [facility] Comment on above: Critical Value > 4.0 Whole blood prothrombin time Ordered By: Real Gibson on 12-22-2022 PT Coag (Bld) [Time] 23.1 s 11.7-14.9 [facility] Laboratory - CoagulationOrde red By: Real Gibson on 11-27-2022 INR Coag (Bld) [Relative time] 3.1 {INR} [facility] Comment on above: Critical Value > 4.0 Whole blood prothrombin time Ordered By: Real Gibson on 11-27-2022 PT Coag (Bld) [Time] 33.6 s 11.7-14.9 [facility] Laboratory - CoagulationOrde red By: Real Gibson on 10-27-2022 INR Coag (Bld) [Relative time] 2.3 {INR} [facility] Comment on above: Critical Value > 4.0 Whole blood prothrombin time Ordered By: Real Gibson on 10-27-2022 PT Coag (Bld) [Time] 24.6 s 11.7-14.9 [facility] Laboratory - CoagulationOrde red By: Dr. Falk on 09-26-2022 INR Coag (Bld) [Relative time] 2.7 {INR} [facility] Comment on above: Critical Value > 4.0 Whole blood prothrombin time Ordered By: Dr. Falk on 09-26-2022 PT Coag (Bld) [Time] 29.4 s 11.7-14.9 [facility] Laboratory - CoagulationOrde red By: Dr. Falk on 08-29-2022 INR Coag (Bld) [Relative time] 1.8 {INR} [facility] Comment on above: Critical Value > 4.0 Whole blood prothrombin time Ordered By: Dr. Falk on 08-29-2022 PT Coag (Bld) [Time] 20.2 s 11.7-14.9 [facility] Laboratory - CoagulationOrde red By: Dr. Falk on 08-01-2022 INR Coag (Bld) [Relative time] 2.1 {INR} [facility] Comment on above: Critical Value > 4.0 Whole blood prothrombin time Ordered By: Dr. Falk on 08-01-2022 PT Coag (Bld) [Time] 23.0 s 11.7-14.9 [facility] Laboratory - CoagulationOrde red By: Dr. Falk on 07-11-2022 INR Coag (Bld) [Relative time] 2.2 {INR} [facility] Comment on above: Critical Value > 4.0 Whole blood prothrombin time Ordered By: Dr. Falk on 07-11-2022 PT Coag (Bld) [Time] 25.8 s 11.7-14.9 [facility] Laboratory - CoagulationOrde red By: Dr. Falk on 06-27-2022 INR Coag (Bld) [Relative time] 1.8 {INR} [facility] Comment on above: Critical Value > 4.0 Whole blood prothrombin time Ordered By: Dr. Falk on 06-27-2022 PT Coag (Bld) [Time] 21.6 s 11.7-14.9 [facility] Office Visiton 06-10-2022 Follow-up visit [id number] Carlo Mathew lisa 1940 F Date Provider Department Center 06/10/2022 [id number] COYLE MG NROSURG None No family history on file Level of Service:88848 [place] OFFICE/OUTPATIENT NEW MODERATE MDM 45-59 MINUTES Reason for Visit and Comments: New Patient [542] - Possible spinal fracture Normal [facility] Progress Noteon 06-10-2022 Progress Note NEUROSURGERY CONSULT NOTE Patient Name: Gloria Mathew Patient : 1940 PCP: Saroj Vallecillo MD History of Present Ilness: 81 y.o. presents with low back pain. States the back pain is worse with weightbearing and weightbearing activities. She was having difficulty ambulating. She went through a stint using a walker and cane. She has been weaned off these. She is ambulating well at this time. She did physical therapy, which helped her symptoms. States her back pain is minimal at this time. She is having some right hip pain after she fell. She has been seeing her PCP for this. She had an MRI done over a month ago and was told she has stenosis and to see a surgeon. Chief Complaint Patient presents with New Patient Possible spinal fracture Past Medical History: No past medical history on file. Past Surgical History: No past surgical history on file. Home Medications: Prior to Admission medications Medication Sig Start Date End Date Taking? Authorizing Provider alendronate (Fosamax) 70 MG tablet 04/30/22 Yes Historical Provider, amoxicillin (Amoxil) 500 MG tablet Take 500 mg by mouth. 03/17/22 Yes Historical Provider, Biotin 1000 MCG chewable tablet Chew 1,000 mcg. 05/06/21 Yes Historical Provider, calcium carbonate 1500 (600 Ca) MG tablet Take 600 mg by mouth in the morning. Yes Historical Provider, cholecalciferol (Vitamin D-3) 25 MCG (1000 UT) capsule Take 1,000 Units by mouth in the morning. Yes Historical Provider, cholestyramine (Questran) 4 g packet 03/22/22 Yes Historical Provider, citalopram (CeleXA) 10 MG tablet 06/04/22 Yes Historical Provider, Cyanocobalamin [address] 1 tablet under the tongue in the morning. Yes Historical Provider, fexofenadine (Brigitte) 180 MG tablet Take 180 mg by mouth. 05/06/21 Yes Historical Provider, gabapentin (Neurontin) 300 MG capsule Take 300 mg by mouth in the morning and 300 mg in the evening. Yes Historical Provider, ipratropium (Atrovent) 0.06 % nasal spray SPRAY 2 SPRAYS INTO EACH NOSTRIL TWICE A DAY 01/11/21 Yes Historical Provider, Multiple Vitamin (multivitamin) tablet Take 1 tablet by mouth daily. Yes Historical Provider, pramipexole (Mirapex) 0.5 MG tablet 06/04/22 Yes Historical Provider, simvastatin (Zocor) 10 MG tablet 04/16/22 Yes Historical Provider, warfarin (Coumadin) 1 MG tablet 06/04/22 Yes Historical Provider, methylPREDNISolone (Medrol Dospak) 4 MG tablets TAKE 6 TABLETS ON DAY 1 DIRECTED ON PACKAGE AND DECREASE BY 1 TAB EACH DAY FOR A TOTAL OF 6 DAYS 03/12/22 Historical Provider, Specialty Vitamins Products (Avawam Matrix 5000) tablet Take 1 tablet by mouth in the morning. Historical Provider, sulfamethoxazole-trim ethoprim (Bactrim DS) 800-160 MG tablet Take 1 tablet by mouth 2 times daily. 06/13/21 Historical Provider, traMADol (Ultram) 50 MG tablet TAKE 1 TABLET BY MOUTH 3 TIMES A DAY NEEDED FOR PAIN FOR 30 DAYS 03/04/22 Historical Provider, Allergies: Sertraline Social History: TOBACCO: reports that she has never smoked. She has never used smokeless tobacco. ETOH: reports no history of alcohol use. RECREATIONAL DRUG USE: Social History Substance and Sexual Activity Drug Use Never Family History: No family history on file. Review of Systems Constitutional: Negative for chills and fever. HENT: Negative for congestion, rhinorrhea and sore throat. Eyes: Negative for photophobia and visual disturbance. Respiratory: Negative for cough and shortness of breath. Cardiovascular: Negative for chest pain and palpitations. Gastrointestinal: Negative for abdominal pain, nausea and vomiting. Genitourinary: Negative for decreased urine volume and difficulty urinating. Musculoskeletal: Negative for back pain, gait problem and neck pain. Skin: Negative for rash and wound. Neurological: Negative for dizziness, seizures, speech difficulty, weakness, numbness and headaches. Psychiatric/Behaviora l: Negative for behavioral problems and confusion. Physical Examination: Vitals: 06/10/22 1305 BP: 122/72 Pulse: 79 Physical Exam Vitals reviewed. Constitutional: Appearance: Normal appearance. HENT: Head: Normocephalic and atraumatic. Nose: Nose normal. Mouth/Throat: Pharynx: Oropharynx is clear. Eyes: Extraocular Movements: Extraocular movements intact. Conjunctiva/sclera: Conjunctivae normal. Cardiovascular: Rate and Rhythm: Normal rate and regular rhythm. Pulses: Normal pulses. Pulmonary: Effort: Pulmonary effort is normal. No respiratory distress. Abdominal: General: There is no distension. Palpations: Abdomen is soft. Tenderness: There is no abdominal tenderness. Musculoskeletal: General: No tenderness. Normal range of motion. Cervical back: Normal range of motion and neck supple. No rigidity. Skin: General: Skin is warm and dry. Neurological: General: No focal (more content not included)... Normal [facility] Laboratory - CoagulationOrde red By: Dr. Falk on 05-30-2022 INR Coag (Bld) [Relative time] 2.1 {INR} [facility] Comment on above: Critical Value > 4.0 Whole blood prothrombin time Ordered By: Dr. Falk on 05-30-2022 PT Coag (Bld) [Time] 24.9 s 11.7-14.9 [facility] Laboratory - Coagulationon 0 05-06-2022 INR Coag (Bld) [Relative time] 2.5 {INR} [facility] Work Phone: Comment on above: Critical Value > 4.0 Whole blood prothrombin time on 05-06-2022 PT Coag (Bld) [Time] 28.6 s 11.7-14.9 [facility] Work Phone: No Panel InformationOrdered By: Dr. Mello on 05-01-2022 Stool Calprotectin 63 ug/g 0-120 [facility] Comment on above: Concentration Interp retation Follow-Up<16 - 50 ug/g Normal None>50 -120 ug/g Borderline Re-evaluate in 4-6 weeks >120 ug/g Abnormal Repeat as clinically indicatedPerformed at: - [facility] [address] [id number] Director: Tarsha Lawton MD, Phone: [phone] No Panel InformationOrdered By: Dr. Mello on 04-30-2022 Endomysial IgA Antibody Negative Negative [facility] Serum IgA measurement (units /volume)Ordered By: Dr. Mello on 04-30-2022 IgA Qn (S) 326 mg/dL 64-422 [facility] Comment on above: Performed at: [facility] [address] [id number] Director: John Ibanez PhD, Phone: [phone] Serum or plasma C reactive p rotein measurement (mass/volume)Ordered By: Dr. Mello on 04-30-2022 CRP [Mass/Vol] mg/L 0.0-3.0 [facility] Comment on above: C-Reactive Protein ( CRP) provides useful information for thediagnosis, therapy and monitoring of inflammatory processesand associated diseases. For the evaluation of Relative Riskfor Cardiovascular Disease, a High Sensitivity CRP (HSCRP)should be ordered. Serum tissue transglutaminas e IgA antibody assay (units/volume)Ordered By: Dr. Mello on 04-30-2022 tTG IgA Qn (S) <2 U/mL 0-3 [facility] Comment on above: Negative 0 - 3 Weak Positive 4 - 10 Positive >10 Tissue Transglutaminase (tTG) has been identified as the endomysial antigen. Studies have demonstr- ated that endomysial IgA antibodies have over 99% specificity for gluten sensitive enteropathy. Laboratory - CoagulationOrde red By: Dr. Falk on 04-22-2022 INR Coag (Bld) [Relative time] 1.8 {INR} [facility] Comment on above: Critical Value > 4.0 Whole blood prothrombin time Ordered By: Dr. Falk on 04-22-2022 PT Coag (Bld) [Time] 21.3 s 11.7-14.9 [facility] Laboratory - Coagulationon 1 06-09-2021 INR Coag (Bld) [Relative time] 2.0 {INR} [facility] Work Phone: Comment on above: Critical Value > 4.0 Whole blood prothrombin time on 04-08-2022 PT Coag (Bld) [Time] 23.3 s 11.7-14.9 [facility] Work Phone: Laboratory - CoagulationOrde red By: Dr. Falk on 04-02-2022 INR Coag (Bld) [Relative time] 1.6 {INR} [facility] Comment on above: Critical Value > 4.0 Whole blood prothrombin time Ordered By: Dr. Falk on 04-02-2022 PT Coag (Bld) [Time] 19.5 s 11.7-14.9 [facility] Laboratory - CoagulationOrde red By: Dr. Falk on 02-28-2022 INR Coag (Bld) [Relative time] 1.8 {INR} [facility] Comment on above: Critical Value > 4.0 Whole blood prothrombin time Ordered By: Dr. Falk on 02-28-2022 PT Coag (Bld) [Time] 21.0 s 11.7-14.9 [facility] Laboratory - Coagulationon 1 INR Coag (Bld) [Relative time] 3.4 {INR} [facility] Work Phone: Comment on above: Critical Value > 4.0 Whole blood prothrombin time on 02-19-2022 PT Coag (Bld) [Time] 38.5 s 11.7-14.9 [facility] Work Phone: [phone] Laboratory - Coagulationon 1 INR Coag (Bld) [Relative time] 3.8 {INR} [facility] Work Phone: [phone] Comment on above: Critical Value > 4.0 Whole blood prothrombin time on 02-12-2022 PT Coag (Bld) [Time] 42.2 s 11.7-14.9 [facility] Work Phone: Laboratory - Coagulationon 0 01-28-2022 INR Coag (Bld) [Relative time] 3.1 {INR} [facility] Work Phone: [phone] Comment on above: Critical Value > 4.0 Whole blood prothrombin time on 01-28-2022 PT Coag (Bld) [Time] 35.7 s 11.7-14.9 [facility] Work Phone: [phone] Laboratory - Coagulationon 0 12-16-2021 INR Coag (Bld) [Relative time] 2.4 {INR} [facility] Work Phone: [phone] Comment on above: Critical Value > 4.0 Whole blood prothrombin time on 12-16-2021 PT Coag (Bld) [Time] 27.5 s 11.7-14.9 [facility] Work Phone: Laboratory - Coagulationon 0 11-20-2021 INR Coag (Bld) [Relative time] 2.7 {INR} [facility] Work Phone: [phone] Comment on above: Critical Value > 4.0 Whole blood prothrombin time on 11-20-2021 PT Coag (Bld) [Time] 30.9 s 11.7-14.9 [facility] Work Phone: Jose 10-31-2021 CNPN Telephone (AGKRISTINAMAC) GLORIA MATHEW ([id number]) 1940 F T Date Time Provider Department 10/31/21 ANIYA SHANKAR During your visit today, we recorded the following information about you: Aniya Shankar [facility] 10/31/2021 11:08 AM Signed Referred by: Dr. Perez Indication: New [...] daily. Recheck INR on 11/06 with new straw hat brim raiser operator in [place]. The patient's INR was elevated on 09/25. [...] was in the hospital and then a custodial facility. She was discharged home on 10/21 and has been taking warfarin 1mg daily. Since INR was therapeutic on 10/23, recommended that she continue this dose and have an INR check on 11/06 to ensure she is stable. She reports today that she has transferred care from Dr. Perez to a new straw hat brim raiser operator in [place]. She has been to see the new straw hat brim raiser operator once so is now established there. Instructed the patient to call the new straw hat brim raiser operator office to see how they monitor warfarin. This Coumadin clinic can no longer manage, as the referring provider needs to be part of [facility]. The patient plans to call her straw hat brim raiser operator office today for guidance and to set up next INR. Coumadin clinic will sign off at this time. Discussed with patient on the phone who read back instructions and verbalized understanding. Aniya Shankar [facility] Renny Morris LPN 11/01/2021 10:53 AM Signed Pt called into coumadin clinic, stated she is calling to confirm she has set up anticoagmanagement with new cardio and will no longer be working with [facility] Renny Morris LPN Allergies As of Date: 10/31/2021 Noted Allergy Reaction ZOLOFT (SERTRALINE) 10/14/2019 14 - Other: See Comments Comments: palpitations Date Reviewed: 08/05/2021 Reviewed by: Randi Lee - Fully Assessed Reason for Visit: Coumadin/INR [1207] Visit Diagnoses:senior living current use of 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 [Z79.01] Paroxysmal atrial fibrillation (HCC) [I48.0] Order(s):PROTHROMBIN TIME/PT [SQPT] Order #: [id number] Prescriptions as of 11/01/2021 - gabapentin (NEURONTIN) 300 mg capsule Take 300 mg by mouth twice daily. Can up titrate to max daily dose of 1,200 mg - fexofenadine (BRIGITTE) 180 mg tablet Take 180 mg by mouth daily at bedtime. - ipratropium bromide (ATROVENT) 42 mcg (0.06 %) nasal spray SPRAY 2 SPRAYS INTO EACH NOSTRIL TWICE A DAY - citalopram hydrobromide (CELEXA) 10 mg tablet Take 10 mg by mouth once daily. - warfarin (COUMADIN) 1 mg tablet Take 1 tablet by mouth daily as directed. - simvastatin (ZOCOR) 10 mg tablet Take 10 mg by mouth daily at bedtime. - ascorbic acid, vitamin C, (VITAMIN C) 500 mg tablet Take 1 tablet by mouth twice daily. - pramipexole (MIRAPEX) 0.25 mg tablet Take 1 tablet by mouth daily at bedtime. - cholestyramine (QUESTRAN) 4 gram packet Take 1 Packet by mouth once daily. - alendronate (FOSAMAX) 70 mg tablet Take 1 tablet by mouth once each week. - Cyanocobalamin (VITAMIN B-12) 1,000 mcg subl Dissolve 1 tablet under the tongue once daily. - calcium carbonate (CALTRATE) 600 mg calcium (1,500 mg) tab Take 600 mg by mouth once daily. - Biotin-Silicon Zzih-T-Vymqidaf 5,000 mcg-100 mg- 50 mg tab Take 1 tablet by mouth once daily. - Cholecalciferol, Vitamin D3, 1,000 unit cap Take 1,000 Units by mouth once daily. 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 Normal [facility] Jose 2021 HANNAHN Telephone (AGCARDPOB ) GLORIA MATHEW ([id number]) 1940 F CHT Date Time Provider Department 10/23/21 JEAN-PIERRE PEREZ During your visit today, we recorded the following information about you: Donald Cunningham RN 2021 9:33 AM Signed Received a call from Coumdan clinic at [facility] requesting a new standing order for Coumadin clinic for the upcoming year. Requesting it be faxed to Karli at [phone]. MARCELLA Sarmiento MD 10/24/2021 7:37 PM Signed What do I need to fill out? William Cunningham RN 10/28/2021 9:42 AM Signed A standing order for the [place] coumadin clinic for the next year. Wasn't sure of the parameters for the INR levels? MARCELLA Sarmiento MD 10/28/2021 11:39 AM Signed INR 2-3; I do not see any form in [facility] William Cunningham RN 10/29/2021 11:39 AM Signed I found the form in [facility] will complete for you just need to know if you want him to have Vit K for INR over 9.0? MARCELLA Sarmiento MD 10/29/2021 11:48 AM Signed I signed the form and did approve VIt K but the form is for [facility], not [place] William Dutta RPh 10/29/2021 12:20 PM Signed [facility] coumadin clinic already manages this patient's INRs. She has her INRs checked at the [place] lab. I think they just need a new standing order for INRs. I have placed the order and faxed as requested. Mellisa Dutta RPh Allergies As of Date: 2021 Noted Allergy Reaction ZOLOFT (SERTRALINE) 10/14/2019 14 - Other: See Comments Comments: palpitations Date Reviewed: 08/05/2021 Reviewed by: Randi Lee - Fully Assessed Reason for Visit: Orders [681] Primary Visit Diagnosis:Atrial fibrillation, chronic (HCC) [I48.20] Order(s):CONSULT TO [facility] ANTICOAGULATION CLINIC [[id number]] Order #: [id number]: [id number] PROTHROMBIN TIME/PT [SQPT] Order #: [id number] STANDING Prescriptions as of 10/29/2021 - gabapentin (NEURONTIN) 300 mg capsule Take 300 mg by mouth twice daily. Can up titrate to max daily dose of 1,200 mg - fexofenadine (BRIGITTE) 180 mg tablet Take 180 mg by mouth daily at bedtime. - ipratropium bromide (ATROVENT) 42 mcg (0.06 %) nasal spray SPRAY 2 SPRAYS INTO EACH NOSTRIL TWICE A DAY - citalopram hydrobromide (CELEXA) 10 mg tablet Take 10 mg by mouth once daily. - warfarin (COUMADIN) 1 mg tablet Take 1 tablet by mouth daily as directed. - simvastatin (ZOCOR) 10 mg tablet Take 10 mg by mouth daily at bedtime. - ascorbic acid, vitamin C, (VITAMIN C) 500 mg tablet Take 1 tablet by mouth twice daily. - pramipexole (MIRAPEX) 0.25 mg tablet Take 1 tablet by mouth daily at bedtime. - cholestyramine (QUESTRAN) 4 gram packet Take 1 Packet by mouth once daily. - alendronate (FOSAMAX) 70 mg tablet Take 1 tablet by mouth once each week. - Cyanocobalamin (VITAMIN B-12) 1,000 mcg subl Dissolve 1 tablet under the tongue once daily. - calcium carbonate (CALTRATE) 600 mg calcium (1,500 mg) tab Take 600 mg by mouth once daily. - Biotin-Silicon Nnih-V-Fivwifyw 5,000 mcg-100 mg- 50 mg tab Take 1 tablet by mouth once daily. - Cholecalciferol, Vitamin D3, 1,000 unit cap Take 1,000 Units by mouth once daily. 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] 04/06/2018 04/18/2018 Mitral regurgitation [I34.0] 04/06/2018 04/18/2018 S/P mitral valve replacement with bioprosthetic* 018 S/P Maze operation for atrial fibrillation [Z98*04/18/2018 Hypotension [I95.9] 04/18/2018 S/P left atrial appendage ligation [Z98.890] 04/18/2018 Stress hyperglycemia [R73.9] 04/18/2018 Anemia associated with acute blood loss [D62] 04/18/2018 Leukocytosis [D72.829] 04/18/2018 Malnutrition of mild degree (HCC) [E44.1] 04/21/2018 Prolonged Q-T interval on ECG [R94.31] 05/31/2018 Lung nodules [R91.8] 06/03/2018 Paroxysmal ventricular tachycardia (HCC) [I47.2]06/24/2018 Atrial fibrillation with rapid ventricular resp*05/19/2021 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*05/20/2021 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] 05/20/2021 Obstructive sleep apnea syndrome [G47.33] 05/20/2021 Neuropathy [G62.9] 05/20/2021 Anticoagulated on warfarin [Z79.01] 05/20/2021 Encounter Status:Closed by MELLISA DUTTA on 10/29/21 Normal [facility] Laboratory - Coagulationon 0 2021 INR Coag (Bld) [Relative time] 2.9 {INR} [facility] Comment on above: Critical Value > 4.0 Whole blood prothrombin time on 2021 PT Coag (Bld) [Time] 33.4 s 11.7-14.9 [facility] Work Phone: INR in Blood by Coagulation assayon 10-21-2021 INR Coag (Bld) [Relative time] 3.1 {INR} [facility] Work Phone: Laboratory - Coagulationon 0 10-21-2021 PT Coag (PPP) [Time] 31.7 s 11.7-14.9 [facility] Work Phone: Absolute lymphocyte counton 10-16-2021 Lymphocytes Auto (Unsp spec) [#/Vol] 0.78 10*3/uL 0.83-4.51 [facility] Work Phone: Basophil percentageon 2021 Chloride [Moles/Vol] 109 mmol/L 98-107 [facility] Work Phone: Glucose [Mass/Vol] 85 mg/dL 74-106 [facility] Work Phone: Potassium [Moles/Vol] 4.5 mmol/L 3.5-5.[address] [facility] Work Phone: Sodium [Moles/Vol] 140 mmol/L 136-145 [facility] Work Phone: Basophils/100 WBC (Bld) 0.9 % 0-[address] [facility] Work Phone: Eosinophils/100 WBC (Bld) 4.0 % 0-5 [facility] Work Phone: Neutrophils (Bld) [#/Vol] 3.2 10*3/uL 2.0-7.7 [facility] Work Phone: Neutrophils/100 WBC (Bld) 68.1 % 47-70 [facility] Work Phone: WBC (Bld) [#/Vol] 4.7 10*3/uL 4.4-11.0 [facility] Work Phone: Blood erythrocytes count (nu mber/volume)on 10-16-2021 RBC (Bld) [#/Vol] 3.17 10*6/uL 4.2-5.4 [facility] Work Phone: Blood hemoglobin measurement (mass/volume)on 10-16-2021 Hemoglobin (Bld) [Mass/Vol] 9.9 g/dL 12.0-15.0 [facility] Work Phone: Blood lymphocytes/100 leukoc yteson 10-16-2021 Lymphocytes/100 WBC (Bld) 16.6 % 19-41 [facility] Work Phone: Blood monocytes/100 leukocyt eson 10-16-2021 Monocytes/100 WBC (Bld) 10.0 % 0-[address] [facility] Work Phone: Blood platelet mean volumeon 10-16-2021 Platelet mean volume (Bld) [Entitic vol] 8.8 fL 6.2-12.0 [facility] Work Phone: Determination of erythrocyte mean corpuscular volume (MCV)on 10-16-2021 MCV (RBC) [Entitic vol] 93.7 fL 81-[address] [facility] Work Phone: [phone] Hematocrit Auto (Bld) [Volum e fraction]on 10-16-2021 Hematocrit (Bld) [Volume fraction] 29.7 % 37-47 [facility] Work Phone: Laboratory - Chemistry and C hemistry - challengeon 10-16-2021 CO2 [Moles/Vol] 27.0 mmol/L 21.0-32.0 [facility] Work Phone: Urea nitrogen/Creatinine [Mass ratio] 29.6 mg/mg 10-20 [facility] Work Phone: [phone] Laboratory - Hematology and Cell countson 10-16-2021 Erythrocyte distribution width (RBC) [Entitic vol] 45.9 fL 35.1-43.9 [facility] Work Phone: [phone] Erythrocyte distribution width (RBC) [Ratio] 13.6 % 11.6-14.6 [facility] Work Phone: [phone] Immature granulocytes/100 WBC (Bld) 0.400 % 0.0-0.9 [facility] Work Phone: Comment on above: IG% - Immature Granu locytes (promyelocytes, myelocytes and metamyelocytes) > 1% indicates that a LEFT SHIFT is Present. MCH (RBC) [Entitic mass] 31.2 pg 27.0-32.0 [facility] Work Phone: Nucleated RBC/100 WBC (Bld) [Ratio] 0 % 0-5 [facility] Work Phone: [phone] MCHC Auto (RBC) [Mass/Vol]on 10-16-2021 MCHC (RBC) [Mass/Vol] 33.3 g/dL 32-[address] [facility] Work Phone: No Panel Informationon 10-16 Estimated Creatinine Clearance Calc 45.27 ml/min [facility] Work Phone: [phone] Estimated GFR (MDRD) Amer 88 mL/min >60 [facility] Work Phone: Comment on above: GFR Calc Estimated GFR (MDRD) Non-Af Amer 72 mL/min >60 [facility] Work Phone: Comment on above: Non- GFR Calc Platelets bldon 10-16-2021 Platelets (Bld) [#/Vol] 215 10*3/uL 150-450 [facility] Work Phone: Serum or plasma calcium lashawn urement (mass/volume)on 10-16-2021 Calcium [Mass/Vol] 9.0 mg/dL 8.5-10.1 [facility] Work Phone: Serum or plasma creatinine m easurement (mass/volume)on 10-16-2021 Creatinine [Mass/Vol] 0.81 mg/dL 0.55-1.[address] [facility] Work Phone: Comment on above: The validity of the calculated GFR & GFRAA in patients over 70 years has not been determined. Clinical correlation is essential. Serum or plasma urea nitroge n measurement (mass/volume)on 10-16-2021 Urea nitrogen [Mass/Vol] 24 mg/dL 7-18 [facility] Work Phone: Thin prep Papanicolaou smear with manual screeningon 10-16-2021 Thin prep Papanicolaou smear with manual screening 4 5-15 [facility] Work Phone: INR in Blood by Coagulation assayon 10-14-2021 INR Coag (Bld) [Relative time] 2.4 {INR} [facility] Work Phone: Laboratory - Coagulationon 0 10-14-2021 PT Coag (PPP) [Time] 25.7 s 11.7-14.9 [facility] Work Phone: Absolute lymphocyte counton 10-09-2021 Lymphocytes Auto (Unsp spec) [#/Vol] 1.04 10*3/uL 0.83-4.51 [facility] Work Phone: Basophil percentageon 2021 Basophils/100 WBC (Bld) 0.7 % 0-[address] [facility] Work Phone: Chloride [Moles/Vol] 109 mmol/L 98-107 [facility] Work Phone: Eosinophils/100 WBC (Bld) 3.1 % 0-5 [facility] Work Phone: Glucose [Mass/Vol] 103 mg/dL 74-106 [facility] Work Phone: Comment on above: Fasting Glucose resu lt from 100 to 125 mg/dL suggests IMPAIRED HOMEOSTASIS per A.D.A. criteria. Neutrophils (Bld) [#/Vol] 3.6 10*3/uL 2.0-7.7 [facility] Work Phone: Neutrophils/100 WBC (Bld) 64.5 % 47-70 [facility] Work Phone: Potassium [Moles/Vol] 4.0 mmol/L 3.5-5.[address] [facility] Work Phone: Sodium [Moles/Vol] 138 mmol/L 136-145 [facility] Work Phone: WBC (Bld) [#/Vol] 5.6 10*3/uL 4.4-11.0 [facility] Work Phone: Blood erythrocytes count (nu mber/volume)on 10-09-2021 RBC (Bld) [#/Vol] 3.32 10*6/uL 4.2-5.4 [facility] Work Phone: Blood hemoglobin measurement (mass/volume)on 10-09-2021 Hemoglobin (Bld) [Mass/Vol] 10.3 g/dL 12.0-15.0 [facility] Work Phone: Blood lymphocytes/100 leukoc yteson 10-09-2021 Lymphocytes/100 WBC (Bld) 18.7 % 19-41 [facility] Work Phone: Blood monocytes/100 leukocyt eson 10-09-2021 Monocytes/100 WBC (Bld) 12.8 % 0-[address] [facility] Work Phone: Blood platelet mean volumeon 10-09-2021 Platelet mean volume (Bld) [Entitic vol] 9.2 fL 6.2-12.0 [facility] Work Phone: Determination of erythrocyte mean corpuscular volume (MCV)on 10-09-2021 MCV (RBC) [Entitic vol] 93.4 fL 81-[address] [facility] Work Phone: Hematocrit Auto (Bld) [Volum e fraction]on 10-09-2021 Hematocrit (Bld) [Volume fraction] 31.0 % 37-47 [facility] Work Phone: Laboratory - Chemistry and C hemistry - challengeon 10-09-2021 CO2 [Moles/Vol] 28.0 mmol/L 21.0-32.0 [facility] Work Phone: Urea nitrogen/Creatinine [Mass ratio] 21.6 mg/mg 10-20 [facility] Work Phone: [phone] Laboratory - Hematology and Cell countson 10-09-2021 Erythrocyte distribution width (RBC) [Entitic vol] 44.6 fL 35.1-43.9 [facility] Work Phone: [phone] Erythrocyte distribution width (RBC) [Ratio] 13.1 % 11.6-14.6 [facility] Work Phone: Immature granulocytes/100 WBC (Bld) 0.200 % 0.0-0.9 [facility] Work Phone: Comment on above: IG% - Immature Granu locytes (promyelocytes, myelocytes and metamyelocytes) > 1% indicates that a LEFT SHIFT is Present. MCH (RBC) [Entitic mass] 31.0 pg 27.0-32.0 [facility] Work Phone: Nucleated RBC/100 WBC (Bld) [Ratio] 0 % 0-5 [facility] Work Phone: [phone] MCHC Auto (RBC) [Mass/Vol]on 10-09-2021 MCHC (RBC) [Mass/Vol] 33.2 g/dL 32-[address] [facility] Work Phone: No Panel Informationon 10-09 Estimated GFR (MDRD) Amer 91 mL/min >60 [facility] Work Phone: Comment on above: GFR Calc Estimated GFR (MDRD) Non-Af Amer 75 mL/min >60 [facility] Work Phone: Comment on above: Non- GFR Calc Platelets bldon 10-09-2021 Platelets (Bld) [#/Vol] 158 10*3/uL 150-450 [facility] Work Phone: [phone] Serum or plasma calcium lashawn urement (mass/volume)on 10-09-2021 Calcium [Mass/Vol] 8.5 mg/dL 8.5-10.1 [facility] Work Phone: [phone] Serum or plasma creatinine m easurement (mass/volume)on 10-09-2021 Creatinine [Mass/Vol] 0.79 mg/dL 0.55-1.[address] [facility] Work Phone: Comment on above: The validity of the calculated GFR & GFRAA in patients over 70 years has not been determined. Clinical correlation is essential. Serum or plasma urea nitroge n measurement (mass/volume)on 10-09-2021 Urea nitrogen [Mass/Vol] 17 mg/dL 7-18 [facility] Work Phone: Thin prep Papanicolaou smear with manual screeningon 10-09-2021 Thin prep Papanicolaou smear with manual screening 1 5-15 [facility] Work [phone] Absolute lymphocyte counton 10-08-2021 Lymphocytes Auto (Unsp spec) [#/Vol] 0.89 10*3/uL 0.83-4.51 [facility] Work Phone: Basophil percentageon 2021 Basophils/100 WBC (Bld) 0.8 % 0-[address] [facility] Work Phone: Chloride [Moles/Vol] 108 mmol/L 98-107 [facility] Work Phone: Eosinophils/100 WBC (Bld) 2.0 % 0-5 [facility] Work Phone: Glucose [Mass/Vol] 111 mg/dL 74-106 [facility] Work Phone: Comment on above: Fasting Glucose resu lt from 100 to 125 mg/dL suggests IMPAIRED HOMEOSTASIS per A.D.A. criteria. Neutrophils (Bld) [#/Vol] 4.3 10*3/uL 2.0-7.7 [facility] Work Phone: Neutrophils/100 WBC (Bld) 70.8 % 47-70 [facility] Work Phone: Potassium [Moles/Vol] 3.9 mmol/L 3.5-5.[address] [facility] Work Phone: Sodium [Moles/Vol] 138 mmol/L 136-145 [facility] Work Phone: WBC (Bld) [#/Vol] 6.1 10*3/uL 4.4-11.0 [facility] Work Phone: Blood erythrocytes count (nu mber/volume)on 10-08-2021 RBC (Bld) [#/Vol] 3.54 10*6/uL 4.2-5.4 [facility] Work Phone: Blood hemoglobin measurement (mass/volume)on 10-08-2021 Hemoglobin (Bld) [Mass/Vol] 10.9 g/dL 12.0-15.0 [facility] Work Phone: Blood lymphocytes/100 leukoc yteson 10-08-2021 Lymphocytes/100 WBC (Bld) 14.6 % 19-41 [facility] Work Phone: Blood monocytes/100 leukocyt eson 10-08-2021 Monocytes/100 WBC (Bld) 11.5 % 0-[address] [facility] Work Phone: Blood platelet mean volumeon 10-08-2021 Platelet mean volume (Bld) [Entitic vol] 9.4 fL 6.2-12.0 [facility] Work Phone: Determination of erythrocyte mean corpuscular volume (MCV)on 10-08-2021 MCV (RBC) [Entitic vol] 94.6 fL 81-[address] [facility] Work Phone: Hematocrit Auto (Bld) [Volum e fraction]on 10-08-2021 Hematocrit (Bld) [Volume fraction] 33.5 % 37-47 [facility] Work Phone: INR in Blood by Coagulation assayon 10-08-2021 INR Coag (Bld) [Relative time] 2.4 {INR} [facility] Work Phone: Laboratory - Chemistry and C hemistry - challengeon 10-08-2021 CO2 [Moles/Vol] 24.0 mmol/L 21.0-32.0 [facility] Work Phone: Urea nitrogen/Creatinine [Mass ratio] 20.2 mg/mg 10-20 [facility] Work Phone: Laboratory - Coagulationon 0 10-08-2021 PT Coag (PPP) [Time] 25.5 s 11.7-14.9 [facility] Work Phone: Laboratory - Hematology and Cell countson 10-08-2021 Erythrocyte distribution width (RBC) [Entitic vol] 44.9 fL 35.1-43.9 [facility] Work Phone: [phone] Erythrocyte distribution width (RBC) [Ratio] 13.0 % 11.6-14.6 [facility] Work Phone: [phone] Immature granulocytes/100 WBC (Bld) 0.300 % 0.0-0.9 [facility] Work Phone: [phone] Comment on above: IG% - Immature Granu locytes (promyelocytes, myelocytes and metamyelocytes) > 1% indicates that a LEFT SHIFT is Present. MCH (RBC) [Entitic mass] 30.8 pg 27.0-32.0 [facility] Work Phone: [phone] Nucleated RBC/100 WBC (Bld) [Ratio] 0 % 0-5 [facility] Work Phone: [phone] MCHC Auto (RBC) [Mass/Vol]on 10-08-2021 MCHC (RBC) [Mass/Vol] 32.5 g/dL 32-[address] [facility] Work Phone: No Panel Informationon 10-08 Estimated Creatinine Clearance Calc 35.26 ml/min [facility] Work Phone: [phone] Estimated GFR (MDRD) Amer 66 mL/min >60 [facility] Work Phone: [phone] Comment on above: GFR Calc Estimated GFR (MDRD) Non-Af Amer 54 mL/min >60 [facility] Work Phone: [phone] Comment on above: Non- GFR Calc Platelets bldon 10-08-2021 Platelets (Bld) [#/Vol] 158 10*3/uL 150-450 [facility] Work Phone: [phone] Serum or plasma calcium lashawn urement (mass/volume)on 10-08-2021 Calcium [Mass/Vol] 7.9 mg/dL 8.5-10.1 [facility] Work Phone: [phone] Serum or plasma creatinine m easurement (mass/volume)on 10-08-2021 Creatinine [Mass/Vol] 1.04 mg/dL 0.55-1.[address] [facility] Work Phone: Comment on above: The validity of the calculated GFR & GFRAA in patients over 70 years has not been determined. Clinical correlation is essential. Serum or plasma urea nitroge n measurement (mass/volume)on 10-08-2021 Urea nitrogen [Mass/Vol] 21 mg/dL 7-18 [facility] Work Phone: Thin prep Papanicolaou smear with manual screeningon 10-08-2021 Thin prep Papanicolaou smear with manual screening 6 5-15 [facility] Work Phone: Basophil percentageon 2021 Bilirubin [Mass/Vol] 0.60 mg/dL 0.20-1.00 [facility] Work Phone: Comment on above: For patients on eltr ombopag therapy, use of Dimension [place] TBIL is not recommended. Protein [Mass/Vol] 5.6 g/dL 6.4-8.2 [facility] Work Phone: Laboratory - Chemistry and C hemistry - challengeon 10-06-2021 ALP [Catalytic activity/Vol] 67 U/L 45-117 [facility] Work Phone: [phone] ALT [Catalytic activity/Vol] 25 U/L 13-56 [facility] Work Phone: [phone] Globulin (S) [Mass/Vol] 2.7 g/dL 2.2-4.[address] [facility] Work Phone: [phone] Serum or plasma albumin lashawn urement (mass/volume)on 10-06-2021 Albumin [Mass/Vol] 2.9 g/dL 3.2-5.0 [facility] Work Phone: [phone] Serum or plasma albumin/glob ulin mass ratioon 10-06-2021 Albumin/Globulin [Mass ratio] 1.1 {ratio} 0.9-2.4 [facility] Work Phone: Thin prep Papanicolaou smear with manual screeningon 10-06-2021 Thin prep Papanicolaou smear with manual screening 16 U/L 15-37 [facility] Work Phone: Absolute lymphocyte counton 10-05-2021 Lymphocytes Auto (Unsp spec) [#/Vol] 1.20 10*3/uL 0.83-4.51 [facility] Work Phone: Basophil percentageon 2021 Basophils/100 WBC (Bld) 1.1 % 0-[address] [facility] Work Phone: Bilirubin [Mass/Vol] 0.90 mg/dL 0.20-1.00 [facility] Work Phone: Comment on above: For patients on eltr ombopag therapy, use of Dimension [place] TBIL is not recommended. Chloride [Moles/Vol] 111 mmol/L 98-107 [facility] Work Phone: Eosinophils/100 WBC (Bld) 2.8 % 0-5 [facility] Work Phone: Glucose [Mass/Vol] 121 mg/dL 74-106 [facility] Work Phone: Comment on above: Fasting Glucose resu lt from 100 to 125 mg/dL suggests IMPAIRED HOMEOSTASIS per A.D.A. criteria. Neutrophils (Bld) [#/Vol] 3.6 10*3/uL 2.0-7.7 [facility] Work Phone: Neutrophils/100 WBC (Bld) 64.5 % 47-70 [facility] Work Phone: Potassium [Moles/Vol] 3.3 mmol/L 3.5-5.[address] [facility] Work Phone: Protein [Mass/Vol] 6.3 g/dL 6.4-8.2 [facility] Work Phone: Sodium [Moles/Vol] 142 mmol/L 136-145 [facility] Work Phone: WBC (Bld) [#/Vol] 5.6 10*3/uL 4.4-11.0 [facility] Work Phone: Blood erythrocytes count (nu mber/volume)on 10-05-2021 RBC (Bld) [#/Vol] 3.99 10*6/uL 4.2-5.4 [facility] Work Phone: Blood hemoglobin measurement (mass/volume)on 10-05-2021 Hemoglobin (Bld) [Mass/Vol] 12.4 g/dL 12.0-15.0 [facility] Work Phone: [phone] Blood lymphocytes/100 leukoc yteson 10-05-2021 Lymphocytes/100 WBC (Bld) 21.3 % 19-41 [facility] Work Phone: [phone] Blood monocytes/100 leukocyt eson 10-05-2021 Monocytes/100 WBC (Bld) 10.1 % 0-[address] [facility] Work Phone: Blood platelet mean volumeon 10-05-2021 Platelet mean volume (Bld) [Entitic vol] 8.9 fL 6.2-12.0 [facility] Work Phone: Determination of erythrocyte mean corpuscular volume (MCV)on 10-05-2021 MCV (RBC) [Entitic vol] 90.5 fL 81-[address] [facility] Work Phone: Hematocrit Auto (Bld) [Volum e fraction]on 10-05-2021 Hematocrit (Bld) [Volume fraction] 36.1 % 37-47 [facility] Work Phone: INR in Blood by Coagulation assayon 10-05-2021 INR Coag (Bld) [Relative time] 3.1 {INR} [facility] Work Phone: Laboratory - Chemistry and C hemistry - challengeon 10-05-2021 ALP [Catalytic activity/Vol] 73 U/L 45-117 [facility] Work Phone: ALT [Catalytic activity/Vol] 28 U/L 13-56 [facility] Work Phone: CO2 [Moles/Vol] 25.0 mmol/L 21.0-32.0 [facility] Work Phone: Globulin (S) [Mass/Vol] 3.0 g/dL 2.2-4.[address] [facility] Work Phone: [phone] Magnesium [Mass/Vol] 1.8 mg/dL 1.6-2.6 [facility] Work Phone: [phone] Urea nitrogen/Creatinine [Mass ratio] 23.2 mg/mg 10-20 [facility] Work Phone: [phone] Laboratory - Coagulationon 0 10-05-2021 PT Coag (PPP) [Time] 31.5 s 11.7-14.9 [facility] Work Phone: [phone] Laboratory - Hematology and Cell countson 10-05-2021 Erythrocyte distribution width (RBC) [Entitic vol] 42.7 fL 35.1-43.9 [facility] Work Phone: [phone] Erythrocyte distribution width (RBC) [Ratio] 13.0 % 11.6-14.6 [facility] Work Phone: [phone] Immature granulocytes/100 WBC (Bld) 0.200 % 0.0-0.9 [facility] Work Phone: [phone] Comment on above: IG% - Immature Granu locytes (promyelocytes, myelocytes and metamyelocytes) > 1% indicates that a LEFT SHIFT is Present. MCH (RBC) [Entitic mass] 31.1 pg 27.0-32.0 [facility] Work Phone: [phone] Nucleated RBC/100 WBC (Bld) [Ratio] 0 % 0-5 [facility] Work Phone: [phone] MCHC Auto (RBC) [Mass/Vol]on 10-05-2021 MCHC (RBC) [Mass/Vol] 34.3 g/dL 32-[address] [facility] Work Phone: [phone] Panel Informationon 10-05 Estimated Creatinine Clearance Calc 38.60 ml/min [facility] Work Phone: [phone] Estimated GFR (MDRD) Amer 73 mL/min >60 [facility] Work Phone: [phone] Comment on above: GFR Calc Estimated GFR (MDRD) Non-Af Amer 61 mL/min >60 [facility] Work Phone: Comment on above: Non- GFR Calc Platelets bldon 10-05-2021 Platelets (Bld) [#/Vol] 175 10*3/uL 150-450 [facility] Work Phone: Serum or plasma albumin lashawn urement (mass/volume)on 10-05-2021 Albumin [Mass/Vol] 3.3 g/dL 3.2-5.0 [facility] Work Phone: Serum or plasma albumin/glob ulin mass ratioon 10-05-2021 Albumin/Globulin [Mass ratio] 1.1 {ratio} 0.9-2.4 [facility] Work Phone: Serum or plasma calcium lashawn urement (mass/volume)on 10-05-2021 Calcium [Mass/Vol] 8.5 mg/dL 8.5-10.1 [facility] Work Phone: Serum or plasma creatinine m easurement (mass/volume)on 10-05-2021 Creatinine [Mass/Vol] 0.95 mg/dL 0.55-1.[address] [facility] Work Phone: Comment on above: The validity of the calculated GFR & GFRAA in patients over 70 years has not been determined. Clinical correlation is essential. Serum or plasma urea nitroge n measurement (mass/volume)on 10-05-2021 Urea nitrogen [Mass/Vol] 22 mg/dL 7-18 [facility] Work Phone: Thin prep Papanicolaou smear with manual screeningon 10-05-2021 Thin prep Papanicolaou smear with manual screening 17 U/L 15-37 [facility] Work Phone: Thin prep Papanicolaou smear with manual screening 6 5-15 [facility] Work Phone: CNPNon 09-25-2021 CNPN Telephone ([facility]) QUINCYGLORIA ([id number]) 1940 F CHT Date Time Provider Department 09/25/21 [facility] During your visit today, we recorded the following information about you: Cassie Adams 09/25/2021 4:05 PM Signed Pt reports of 3.4 on 09/25/2021. Aniya Shankar RPh 09/25/2021 4:17 PM Signed Referred by: Dr. Perez Indication: [...] read back instructions and verbalized understanding. 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 Can up titrate to max daily dose of 1,200 mg - fexofenadine (BRIGITTE) 180 mg tablet Take 180 mg by mouth daily at bedtime. - ipratropium bromide (ATROVENT) 42 mcg (0.06 %) nasal spray SPRAY 2 SPRAYS INTO EACH NOSTRIL TWICE A DAY - citalopram hydrobromide (CELEXA) 10 mg tablet Take 10 mg by mouth once daily. - warfarin (COUMADIN) 1 mg tablet Take 1 tablet by mouth daily as directed. - simvastatin (ZOCOR) 10 mg tablet Take 10 mg by mouth daily at bedtime. - ascorbic acid, vitamin C, (VITAMIN C) 500 mg tablet Take 1 tablet by mouth twice daily. - pramipexole (MIRAPEX) 0.25 mg tablet Take 1 tablet by mouth daily at bedtime. - cholestyramine (QUESTRAN) 4 gram packet Take 1 Packet by mouth once daily. - alendronate (FOSAMAX) 70 mg tablet Take 1 tablet by mouth once each week. - Cyanocobalamin (VITAMIN B-12) 1,000 mcg subl Dissolve 1 tablet under the tongue once daily. - calcium carbonate (CALTRATE) 600 mg calcium (1,500 mg) tab Take 600 mg by mouth once daily. - Biotin-Silicon Fppr-F-Qofeolrn 5,000 mcg-100 mg- 50 mg tab Take 1 tablet by mouth once daily. - Cholecalciferol, Vitamin D3, 1,000 unit cap Take 1,000 Units by mouth once daily. 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] 04/06/2018 04/18/2018 Mitral regurgitation [I34.0] 04/06/2018 04/18/2018 S/P mitral valve replacement with bioprosthetic* 018 S/P Maze operation for atrial fibrillation [Z98*04/18/2018 Hypotension [I95.9] 04/18/2018 S/P left atrial appendage ligation [Z98.890] 04/18/2018 Stress hyperglycemia [R73.9] 04/18/2018 Anemia associated with acute blood loss [D62] 04/18/2018 Leukocytosis [D72.829] 04/18/2018 Malnutrition of mild degree (HCC) [E44.1] 04/21/2018 Prolonged Q-T interval on ECG [R94.31] 05/31/2018 Lung nodules [R91.8] 06/03/2018 Paroxysmal ventricular tachycardia (HCC) [I47.2]06/24/2018 Atrial fibrillation with rapid ventricular resp*05/19/2021 Complete atrioventricular block due (more content not included)... Normal [facility] Laboratory - Coagulationon 0 09-25-2021 INR Coag (Bld) [Relative time] 3.4 {INR} [facility] Comment on above: Critical Value > 4.0 Whole blood prothrombin time on 09-25-2021 PT Coag (Bld) [Time] 38.0 s 11.7-14.9 [facility] Work Phone: CNPElizabeth 08-29-2021 CNPN Telephone ([employer] GLORIA MATHEW ([id number]) 1940 F CHT Date Time Provider Department 08/29/21 [facility] your visit today, we recorded the following information about you: Mellisa Dutta RPh 08/29/2021 9:08 AM Signed Referred by: Dr. Perez Indication: New [...] PT INR Date Value Ref Range Status 08/28/2021 2.4 Final Current warfarin dose: 1mg daily Description CONTINUE 1mg daily. Recheck INR in 4 [...] current dose. INR has been therapeutic since including today. Discussed with patient on the phone who read back instructions and verbalized understanding. 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 Can up titrate to max daily dose of 1,200 mg - fexofenadine (BRIGITTE) 180 mg tablet Take 180 mg by mouth daily at bedtime. - ipratropium bromide (ATROVENT) 42 mcg (0.06 %) nasal spray SPRAY 2 SPRAYS INTO EACH NOSTRIL TWICE A DAY - citalopram hydrobromide (CELEXA) 10 mg tablet Take 10 mg by mouth once daily. - warfarin (COUMADIN) 1 mg tablet Take 1 tablet by mouth daily as directed. - simvastatin (ZOCOR) 10 mg tablet Take 10 mg by mouth daily at bedtime. - ascorbic acid, vitamin C, (VITAMIN C) 500 mg tablet Take 1 tablet by mouth twice daily. - pramipexole (MIRAPEX) 0.25 mg tablet Take 1 tablet by mouth daily at bedtime. - cholestyramine (QUESTRAN) 4 gram packet Take 1 Packet by mouth once daily. - alendronate (FOSAMAX) 70 mg tablet Take 1 tablet by mouth once each week. - Cyanocobalamin (VITAMIN B-12) 1,000 mcg subl Dissolve 1 tablet under the tongue once daily. - calcium carbonate (CALTRATE) 600 mg calcium (1,500 mg) tab Take 600 mg by mouth once daily. - Biotin-Silicon Tvem-Z-Vrrxrodv 5,000 mcg-100 mg- 50 mg tab Take 1 tablet by mouth once daily. - Cholecalciferol, Vitamin D3, 1,000 unit cap Take 1,000 Units by mouth once daily. 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] 04/06/2018 04/18/2018 Mitral regurgitation [I34.0] 04/06/2018 04/18/2018 S/P mitral valve replacement with bioprosthetic* 018 S/P Maze operation for atrial fibrillation [Z98*04/18/2018 Hypotension [I95.9] 04/18/2018 S/P left atrial appendage ligation [Z98.890] 04/18/2018 Stress hyperglycemia [R73.9] 04/18/2018 Anemia associated with acute blood loss [D62] 04/18/2018 Leukocytosis [D72.829] 04/18/2018 Malnutrition of mild degree (HCC) [E44.1] 04/21/2018 Prolonged Q-T interval on ECG [R94.31] 05/31/2018 Lung nodules [R91.8] 06/03/2018 Paroxysmal ventricular tachycardia (HCC) [I47.2]06/24/2018 Atrial fibrillation with rapid ventricular resp*05/19/2021 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*05/20/2021 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] 05/20/2021 Obstructive sleep apnea syndrome [G47.33] 05/20/2021 Neuropathy [G62.9] 05/20/2021 Anticoagulated on warfarin [Z79.01] 05/20/2021 Encounter Status:Closed by MELLISA DUTTA on 08/29/21 Normal [facility] Laboratory - Coagulationon 0 08-28-2021 INR Coag (Bld) [Relative time] 2.4 {INR} [facility] Work Phone: Comment on above: Critical Value > 4.0 Whole blood prothrombin time on 08-28-2021 PT Coag (Bld) [Time] 28.2 s 11.7-14.9 [facility] Work Phone: CNOVon 08-05-2021 CNOV Office Visit ([facility] ) GLORIA MATHEW ([id number]) [address] [facility] Date Time Provider Department 08/05/21 10:15 AM LUCÍA BARRAZA [facility] During your visit today, we recorded the following information about you: Temperature Pulse Respiration Blood pressure 97.2 degrees 84/minute 16/minute 110/68 Weight 70.3 kg Lucía Barraza APRN.[facility] 08/05/2021 10:27 AM Signed Subjective Patient came in with complaints of being exposed to covid Five days ago. Patient does not have any symptoms at this time. Had covid in April of 2020 and is vaccinated. The history is provided by the patient. No hot stick worker was used. Review of Systems Constitutional: Negative. Skin: Negative. Objective Physical Exam Constitutional: Appearance: Normal appearance. Cardiovascular: Rate and Rhythm: Normal rate and regular rhythm. Heart sounds: Normal heart sounds. Pulmonary: Effort: Pulmonary effort is normal. Breath sounds: Normal breath sounds. Neurological: Mental Status: She is alert. 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 Epic bioprosthesis - IBS (irritable bowel syndrome) - Lung nodules 06/03/2018 - Mitral valve regurgitation - Mitral valve stenosis - 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m insufficient to support life - Presence of cardiac pacemaker Medtronic dual-chamber pacemaker implanted 05/20/2021; indication: complete heart block from AV node catheter ablation; system will be MRI conditional after 6 weeks post implant - Prolonged QT interval - Pulmonary HTN (HCC) - S/P left atrial appendage ligation 04/16/2018 exclusion of left atrial appendage with a 45 mm atrial clip. - Torsades de pointes (HCC) - Tricuspid regurgitation - Ventricular tachycardia (HCC) PAST SURGICAL HISTORY Procedure Laterality Date - ATRIAL APPENDAGE LIGATION 04/16/2018 exclusion of left atrial appendage with a 45 mm atrial clip. - BASIC PACEMAKER DUAL CHAMBER Left 05/20/2021 Medtronic dual-chamber pacemaker; indication: complete heart block from AV node catheter ablation; system will be MRI conditional after 6 weeks post implant; CCAG Dr. Lechuga - BREAST BIOPSY - CARDIOVERSION 05/27/2018 - CARDIOVERSION 01/01/2021 - CHEST X-RAY 12/31/2020 - CHOLECYSTECTOMY HX 10/02/2011 - ECHO TRANSESOPHAGEAL 05/27/2018 - EKG 01/01/2021 - HYSTERECTOMY HX MARYELLEN/BLO - ICAR CATHETER ABLATION ATRIOVENTR NODE FUNCTION 05/20/2021 AV node radiofrequency catheter ablation; indication: drug refractory atrial fibrillation; CCAG Dr. Lechuga - LEG SURGERY HX - MAZE PROCEDURE 04/16/2018 maze procedure with left and right atrial lesion sets (radiofrequency clamp and cryo) - PICC LINE INSERTION (PICC TEAM) (AK) 04/21/2018 - REPLACEMENT OF MITRAL VALVE 04/16/[address] 29-mm [employer] Epic bioprosthesis ALLERGIES Zoloft [Sertraline] MEDICATIONS gabapentin (NEURONTIN) 300 mg capsule Take 300 mg by mouth twice daily. Can up titrate to max daily dose of 1,200 mg fexofenadine (BRIGITTE) 180 mg tablet Take 180 mg by mouth daily at bedtime. ipratropium bromide (ATROVENT) 42 mcg (0.06 %) nasal spray SPRAY 2 SPRAYS INTO EACH NOSTRIL TWICE A DAY citalopram hydrobromide (CELEXA) 10 mg tablet Take 10 mg by mouth once daily. warfarin (COUMADIN) 1 mg tablet Take 1 tablet by mouth daily as directed. simvastatin (ZOCOR) 10 mg tablet Take 10 mg by mouth daily at bedtime. ascorbic acid, vitamin C, (VITAMIN C) 500 mg tablet Take 1 tablet by mouth twice daily. pramipexole (MIRAPEX) 0.25 mg tablet Take 1 tablet by mouth daily at bedtime. cholestyramine (QUESTRAN) 4 gram packet Take 1 Packet by mouth once daily. calcium carbonate (CALTRATE) 600 mg calcium (1,500 mg) tab Take 600 mg by mouth once daily. Biotin-Silicon Ewri-Q-Kptjpjmk 5,000 mcg-100 mg- 50 mg tab Take 1 tablet by mouth once daily. Cholecalciferol, Vitamin D3, 1,000 unit cap Take 1,000 Units by mouth once daily. alendronate (FOSAMAX) 70 mg tablet Take 1 tablet by mouth once each week. Cyanocobalamin (VITAMIN B-12) 1,000 mcg subl Dissolve 1 tablet under the tongue once daily. FAMILY HISTORY Problem Relation Age of Onset - Breast Cancer Mother stage III - Coronary Artery Disease Mother mother, uncle - Cancer Paternal Grandfather - Colon Cancer Maternal Grandmother - Diabetes Other uncle - Stroke Maternal Grandfather Social History Tobacco Use - Smoking status: Never Smoker - Smokeless tobacco: Never Used Vaping Use - Vaping Use: Never used Substance Use Topics - Alcohol use: No - (more content not included)... Normal [facility] 07-30-2021 CNPN Telephone ([facility]) GLORIA MATHEW ([id number]) 1940 F T Date Time Provider Department 07/30/21 [facility] During your visit today, we recorded the following information about you: Mellisa Dutta RPh 07/30/2021 9:52 AM Signed Referred by: Dr. Perez Indication: New [...] PT INR Date Value Ref Range Status 07/29/2021 2.9 Final Current warfarin dose: 1mg daily Description CONTINUE 1mg daily. Recheck INR in 4 [...] current dose. INR has been therapeutic since including today. Left detailed message for patient. Mellisa Dutta [facility] Allergies As of Date: 07/30/2021 Noted Allergy Reaction ZOLOFT (SERTRALINE) 10/14/2019 14 - Other: See Comments Comments: palpitations Date Reviewed: 07/04/2021 Reviewed by: Jean-Pierre Perez MD - Fully Assessed Reason for Visit: Coumadin/INR [1207] Visit Diagnoses:senior living current use of 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 [Z79.01] Paroxysmal atrial fibrillation (HCC) [I48.0] Order(s):PROTHROMBIN TIME/PT [SQPT] Order #: [id number] Prescriptions as of 08/07/2021 - gabapentin (NEURONTIN) 300 mg capsule Take 300 mg by mouth twice daily. Can up titrate to max daily dose of 1,200 mg - fexofenadine (BRIGITTE) 180 mg tablet Take 180 mg by mouth daily at bedtime. - ipratropium bromide (ATROVENT) 42 mcg (0.06 %) nasal spray SPRAY 2 SPRAYS INTO EACH NOSTRIL TWICE A DAY - citalopram hydrobromide (CELEXA) 10 mg tablet Take 10 mg by mouth once daily. - warfarin (COUMADIN) 1 mg tablet Take 1 tablet by mouth daily as directed. - simvastatin (ZOCOR) 10 mg tablet Take 10 mg by mouth daily at bedtime. - ascorbic acid, vitamin C, (VITAMIN C) 500 mg tablet Take 1 tablet by mouth twice daily. - pramipexole (MIRAPEX) 0.25 mg tablet Take 1 tablet by mouth daily at bedtime. - cholestyramine (QUESTRAN) 4 gram packet Take 1 Packet by mouth once daily. - alendronate (FOSAMAX) 70 mg tablet Take 1 tablet by mouth once each week. - Cyanocobalamin (VITAMIN B-12) 1,000 mcg subl Dissolve 1 tablet under the tongue once daily. - calcium carbonate (CALTRATE) 600 mg calcium (1,500 mg) tab Take 600 mg by mouth once daily. - Biotin-Silicon Gonh-J-Sigxcamv 5,000 mcg-100 mg- 50 mg tab Take 1 tablet by mouth once daily. - Cholecalciferol, Vitamin D3, 1,000 unit cap Take 1,000 Units by mouth once daily. 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] 04/06/2018 04/18/2018 Mitral regurgitation [I34.0] 04/06/2018 04/18/2018 S/P mitral valve replacement with bioprosthetic* 018 S/P Maze operation for atrial fibrillation [Z98*04/18/2018 Hypotension [I95.9] 04/18/2018 S/P left atrial appendage ligation [Z98.890] 04/18/2018 Stress hyperglycemia [R73.9] 04/18/2018 Anemia associated with acute blood loss [D62] 04/18/2018 Leukocytosis [D72.829] 04/18/2018 Malnutrition of mild degree (HCC) [E44.1] 04/21/2018 Prolonged Q-T interval on ECG [R94.31] 05/31/2018 Lung nodules [R91.8] 06/03/2018 Paroxysmal ventricular tachycardia (HCC) [I47.2]06/24/2018 Atrial fibrillation with rapid ventricular resp*05/19/2021 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*05/20/2021 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] 05/20/2021 Obstructive sleep apnea syndrome [G47.33] 05/20/2021 Neuropathy [G62.9] 05/20/2021 Anticoagulated on warfarin [Z79.01] 05/20/2021 Encounter Status:Closed by RENNY MORRIS on 4/6/22 Normal [facility] Laboratory - Coagulationon 0 07-29-2021 INR Coag (Bld) [Relative time] 2.9 {INR} [facility] Work Phone: Comment on above: Critical Value > 4.0 PT panel Coag (PPP)on 2021 INR Coag (Bld) [Relative time] 2.9 {INR} [facility] Whole blood prothrombin time on 07-29-2021 PT Coag (Bld) [Time] 32.9 s 11.7-14.9 [facility] Work Phone: CNPNon 07-17-2021 CNPN Telephone (AGINTMAC) GLORIA MATHEW ([id number]) 1940 F T Date Time Provider Department 07/17/21 MELLISA DUTTA During your visit today, we recorded the following information about you: Mellisa Dutta RPh 07/17/2021 9:51 AM Signed Patient was due to have INR drawn in lab on 07/01. We have not received results. Please remind patient to check INR. Mellisa Dutta [facility] Renny Morris LPN 07/17/2021 10:53 AM Signed Called and spoke with pt, she stated she did have lab INR done on 07/01 and forgot to call, INR-2.3 CALLIE Sauer RPh 07/17/2021 11:03 AM Signed Noted. She can have next INR drawn on 07/29. Funmi Flood LPN 07/17/2021 11:05 AM Signed Called pt and orders given to mark on 07/29, pt voiced understanding and compliance Renny Morris LPN Allergies As of Date: 07/17/2021 Noted Allergy Reaction ZOLOFT (SERTRALINE) 10/14/2019 14 - Other: See Comments Comments: palpitations Date Reviewed: 07/04/2021 Reviewed by: Jean-Pierre Perez MD - Fully Assessed Reason for Visit: Coumadin/INR [1207] Prescriptions as of 07/17/2021 - gabapentin (NEURONTIN) 300 mg capsule Take 300 mg by mouth twice daily. Can up titrate to max daily dose of 1,200 mg - fexofenadine (BRIGITTE) 180 mg tablet Take 180 mg by mouth daily at bedtime. - ipratropium bromide (ATROVENT) 42 mcg (0.06 %) nasal spray SPRAY 2 SPRAYS INTO EACH NOSTRIL TWICE A DAY - citalopram hydrobromide (CELEXA) 10 mg tablet Take 10 mg by mouth once daily. - warfarin (COUMADIN) 1 mg tablet Take 1 tablet by mouth daily as directed. - simvastatin (ZOCOR) 10 mg tablet Take 10 mg by mouth daily at bedtime. - ascorbic acid, vitamin C, (VITAMIN C) 500 mg tablet Take 1 tablet by mouth twice daily. - pramipexole (MIRAPEX) 0.25 mg tablet Take 1 tablet by mouth daily at bedtime. - cholestyramine (QUESTRAN) 4 gram packet Take 1 Packet by mouth once daily. - alendronate (FOSAMAX) 70 mg tablet Take 1 tablet by mouth once each week. - Cyanocobalamin (VITAMIN B-12) 1,000 mcg subl Dissolve 1 tablet under the tongue once daily. - calcium carbonate (CALTRATE) 600 mg calcium (1,500 mg) tab Take 600 mg by mouth once daily. - Biotin-Silicon Cbse-Q-Zsebgjgw 5,000 mcg-100 mg- 50 mg tab Take 1 tablet by mouth once daily. - Cholecalciferol, Vitamin D3, 1,000 unit cap Take 1,000 Units by mouth once daily. 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] 04/06/2018 04/18/2018 Mitral regurgitation [I34.0] 04/06/2018 04/18/2018 S/P mitral valve replacement with bioprosthetic* 018 S/P Maze operation for atrial fibrillation [Z98*04/18/2018 Hypotension [I95.9] 04/18/2018 S/P left atrial appendage ligation [Z98.890] 04/18/2018 Stress hyperglycemia [R73.9] 04/18/2018 Anemia associated with acute blood loss [D62] 04/18/2018 Leukocytosis [D72.829] 04/18/2018 Malnutrition of mild degree (HCC) [E44.1] 04/21/2018 Prolonged Q-T interval on ECG [R94.31] 05/31/2018 Lung nodules [R91.8] 06/03/2018 Paroxysmal ventricular tachycardia (HCC) [I47.2]06/24/2018 Atrial fibrillation with rapid ventricular resp*05/19/2021 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*05/20/2021 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] 05/20/2021 Obstructive sleep apnea syndrome [G47.33] 05/20/2021 Neuropathy [G62.9] 05/20/2021 Anticoagulated on warfarin [Z79.01] 05/20/2021 Encounter Status:Closed by MELLISA DUTTA on 07/17/21 [facility] CNOVanjelica 07-04-2021 CNOV Office Visit (AGCARDHWW) GLORIA MATHEW ([id number]) 1940 F T Date Time Provider Department 07/04/21 8:00 AM JEAN-PIERRE PEREZ AGCARDHWW During your visit today, we recorded the following information about you: Pulse Respiration Blood pressure Weight 84/minute 18/minute 110/70 71.7 kg Height 1.575 m Jean-Pierre Perez MD 07/04/2021 8:27 AM Signed Chief Complaint No chief complaint on file. History of Present Illness: Gloria Mathew is a 80 year old female here for follow-up of valve disease and A. fib. She has had recurrent A. fib over the last year and we did refer her to the EP service. She had a cardioversion done down in [place]. She ended up having AV node ablation and permanent dual-chamber pacer placed in May. She is now living down in [place]. She says she has not felt quite as well since the pacemaker procedure as she has a little bit more shortness of breath than she did. She has had no syncope near syncope palpitations stroke or TIA. She has had no upper or lower GI bleeding she has had no bruising she has had no chest pain she has had no edema she has no claudication she has little bit of chronic fatigue. She also says however that she has not been as active and she think that is playing a role and she would like to try to get back into exercise and she is planning on doing cardiac rehab. 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 Epic bioprosthesis - IBS (irritable bowel syndrome) - Lung nodules 06/03/2018 - Mitral valve regurgitation - Mitral valve stenosis - 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m insufficient to support life - Presence of cardiac pacemaker Medtronic dual-chamber pacemaker implanted 05/20/2021; indication: complete heart block from AV node catheter ablation; system will be MRI conditional after 6 weeks post implant - Prolonged QT interval - Pulmonary HTN (HCC) - S/P left atrial appendage ligation 04/16/2018 exclusion of left atrial appendage with a 45 mm atrial clip. - Torsades de pointes (HCC) - Tricuspid regurgitation - Ventricular tachycardia (HCC) PAST SURGICAL HISTORY Procedure Laterality Date - ATRIAL APPENDAGE LIGATION 04/16/2018 exclusion of left atrial appendage with a 45 mm atrial clip. - BASIC PACEMAKER DUAL CHAMBER Left 05/20/2021 Medtronic dual-chamber pacemaker; indication: complete heart block from AV node catheter ablation; system will be MRI conditional after 6 weeks post implant; [facility] Dr. Lechuga - BREAST BIOPSY - CARDIOVERSION 05/27/2018 - CARDIOVERSION 01/01/2021 - CHEST X-RAY 12/31/2020 - CHOLECYSTECTOMY HX 10/02/2011 - ECHO TRANSESOPHAGEAL 05/27/2018 - EKG 01/01/2021 - HYSTERECTOMY HX MARYELLEN/BLO - ICAR CATHETER ABLATION ATRIOVENTR NODE FUNCTION 05/20/2021 AV node radiofrequency catheter ablation; indication: drug refractory atrial fibrillation; [facility] Dr. Lechuga - LEG SURGERY HX - MAZE PROCEDURE [...] uncle - Stroke Maternal Grandfather Social History Tobacco Use - Smoking status: Never Smoker - Smokeless tobacco: Never Used Vaping Use - Vaping Use: Never used Substance Use Topics - Alcohol use: No - Drug use: No ALLERGIES Allergen Reactions - Zoloft [Sertraline] Other: See Comments palpitations Medications: Current Outpatient Medications Medication Sig Dispense Refill - metoprolol tartrate, short acting, (LOPRESSOR) 50 mg tablet Take 1 tablet by mouth every 12 hours. 60 tablet 0 - gabapentin (NEURONTIN) 300 mg capsule Take 300 mg by mouth twice daily. Can up titrate to max daily dose of 1,200 mg - fexofenadine (BRIGITTE) 180 mg tablet Take 180 mg by mouth daily at bedtime. - ipratropium bromide (ATROVENT) 42 mcg (0.06 %) nasal spray SPRAY 2 SPRAYS INTO EACH NOSTRIL TWICE A DAY - citalopram hydrobromide (CELEXA) 10 mg tablet - warfarin (COUMADIN) 1 mg tablet Take 1 tablet by mouth daily as directed. 100 tablet 1 - simvastatin (ZOCOR) 10 mg tablet Take 10 mg by mouth daily at bedtime. - ascorbic acid, vitamin C, (VITAMIN C) 500 mg tablet Take 1 tablet by mouth twice daily. - pramipexo (more content not included)... Normal [facility] Laboratory - Coagulationon 0 07-01-2021 INR Coag (Bld) [Relative time] 2.3 {INR} [facility] Work Phone: Comment on above: Critical Value > 4.0 Whole blood prothrombin time on 07-01-2021 PT Coag (Bld) [Time] 26.9 s 11.9-14.4 [facility] Work Phone: CNPElizabeth 06-17-2021 CNPN Telephone (AGINTVelomedix) GLORIA MATHEW ([id number]) [address] [facility] Date Time Provider Department 06/17/21 [facility] During your visit today, we recorded the following information about you: Ligia Bloom LPN 06/17/2021 2:31 PM Signed Pt LVM with her in home test result. INR 2.5. CALLIE Abad [facility] 06/17/2021 2:42 PM Signed Referred by: Dr. Perez Indication: [...] PT INR Date Value Ref Range Status 06/17/2021 2.5 Final Current warfarin dose: 1mg daily Description CONTINUE 1mg daily. Recheck INR in 2 weeks. Patient has been very sensitive to warfarin dose adjustments. She has been on 1mg daily since 10/22/20 and INR has been mostly stable. Patient was admitted 05/18-05/21 for afib RVR and underwent AV karin ablation and pacemaker insertion. INR was 2.6 on 05/19. She received 10mg oral vitamin K on 05/19 to reverse warfarin for procedure. Warfarin was restarted on 05/21. She received 2mg on 05/21 and INR was 1.1. INR on 05/24 was 1.5 which was an appropriate increase. Continued current dose. INR on 05/31 was therapeutic. INR remains stable today. Patient was started on a 7 day course of bactrim on 06/13. INR remains stable on day 5 of Bactrim. Will continue current dose. Discussed with patient on the phone who read back instructions and verbalized understanding. Mellisa Dutta riya Allergies As of Date: 06/17/2021 Noted Allergy Reaction ZOLOFT (SERTRALINE) 10/14/2019 14 - Other: See Comments Comments: palpitations Date Reviewed: 05/21/2021 Reviewed by: Priya Schmitz RN - Fully Assessed Reason for Visit: Coumadin/INR [1207] Cmt: result 2.5 Visit Diagnoses:senior living current use of 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 [Z79.01] Paroxysmal atrial fibrillation (HCC) [I48.0] Order(s):PROTHROMBIN TIME/PT [SQPT] Order #: [id number] Prescriptions as of 06/17/2021 - acetaminophen (TYLENOL) 325 mg tablet Take 2 tablets by mouth every 6 hours as needed for pain. - metoprolol tartrate, short acting, (LOPRESSOR) 50 mg tablet Take 1 tablet by mouth every 12 hours. - gabapentin (NEURONTIN) 300 mg capsule Take 300 mg by mouth twice daily. Can up titrate to max daily dose of 1,200 mg - fexofenadine (BRIGITTE) 180 mg tablet Take 180 mg by mouth daily at bedtime. - ipratropium bromide (ATROVENT) 42 mcg (0.06 %) nasal spray SPRAY 2 SPRAYS INTO EACH NOSTRIL TWICE A DAY - citalopram hydrobromide (CELEXA) 10 mg tablet - warfarin (COUMADIN) 1 mg tablet Take 1 tablet by mouth daily as directed. - simvastatin (ZOCOR) 10 mg tablet Take 10 mg by mouth daily at bedtime. - ascorbic acid, vitamin C, (VITAMIN C) 500 mg tablet Take 1 tablet by mouth twice daily. - pramipexole (MIRAPEX) 0.25 mg tablet Take 1 tablet by mouth daily at bedtime. - cholestyramine (QUESTRAN) 4 gram packet Take 1 Packet by mouth once daily. - alendronate (FOSAMAX) 70 mg tablet Take 1 tablet by mouth once each week. - Cyanocobalamin (VITAMIN B-12) 1,000 mcg subl Dissolve 1 tablet under the tongue once daily. - calcium carbonate (CALTRATE) 600 mg calcium (1,500 mg) tab Take 600 mg by mouth once daily. - Biotin-Silicon Rrmf-V-Vxwqwxju 5,000 mcg-100 mg- 50 mg tab Take 1 tablet by mouth once daily. - Cholecalciferol, Vitamin D3, 1,000 unit cap Take 1,000 Units by mouth once daily. 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] 04/06/2018 04/18/2018 Mitral regurgitation [I34.0] 04/06/2018 04/18/2018 S/P mitral valve replacement with bioprosthetic* 018 S/P Maze operation for atrial fibrillation [Z98*04/18/2018 Hypotension [I95.9] 04/18/2018 S/P left atrial appendage ligation [Z98.890] 04/18/2018 Stress hyperglycemia [R73.9] 04/18/2018 Anemia associated with acute blood loss [D62] 04/18/2018 Leukocytosis [D72.829] 04/18/2018 Malnutrition of mild degree (HCC) [E44.1] 04/21/2018 Prolonged Q-T interval on ECG [R94.31] 05/31/2018 Lung nodules [R91.8] 06/03/2018 Paroxysmal ventricular tachycardia (HCC) [I47.2]06/24/2018 Atrial fibrillation with rapid ventricular resp*05/19/19 (more content not included)... Normal [facility] Absolute lymphocyte counton 06-06-2021 Lymphocytes Auto (Unsp spec) [#/Vol] 1.35 10*3/uL 0.83-4.51 [facility] Work Phone: Basophil percentageon 2021 Basophils/100 WBC (Bld) 1.7 % 0-[address] [facility] Work Phone: Eosinophils/100 WBC (Bld) 3.0 % 0-5 [facility] Work Phone: Neutrophils (Bld) [#/Vol] 4.7 10*3/uL 2.0-7.7 [facility] Work Phone: Neutrophils/100 WBC (Bld) 65.9 % 47-70 [facility] Work Phone: WBC (Bld) [#/Vol] 7.1 10*3/uL 4.4-11.0 [facility] Work Phone: Blood erythrocytes count (nu mber/volume)on 06-06-2021 RBC (Bld) [#/Vol] 4.39 10*6/uL 4.2-5.4 [facility] Work Phone: Blood hemoglobin measurement (mass/volume)on 06-06-2021 Hemoglobin (Bld) [Mass/Vol] 13.9 g/dL 12.0-15.0 [facility] Work Phone: Blood lymphocytes/100 leukoc yteson 06-06-2021 Lymphocytes/100 WBC (Bld) 19.1 % 19-41 [facility] Work Phone: Blood monocytes/100 leukocyt eson 06-06-2021 Monocytes/100 WBC (Bld) 9.9 % 0-[address] [facility] Work Phone: Blood platelet mean volumeon 06-06-2021 Platelet mean volume (Bld) [Entitic vol] 8.6 fL 6.2-12.0 [facility] Work Phone: Determination of erythrocyte mean corpuscular volume (MCV)on 06-06-2021 MCV (RBC) [Entitic vol] 92.7 fL 81-[address] [facility] Work Phone: [phone] Hematocrit Auto (Bld) [Volum e fraction]on 06-06-2021 Hematocrit (Bld) [Volume fraction] 40.7 % 37-47 [facility] Work Phone: Laboratory - Hematology and Cell countson 06-06-2021 Erythrocyte distribution width (RBC) [Entitic vol] 44.4 fL 35.1-43.9 [facility] Work Phone: [phone] Erythrocyte distribution width (RBC) [Ratio] 13.2 % 11.6-14.6 [facility] Work Phone: Immature granulocytes/100 WBC (Bld) 0.400 % 0.0-0.9 [facility] Work Phone: Comment on above: IG% - Immature Granu locytes (promyelocytes, myelocytes and metamyelocytes) > 1% indicates that a LEFT SHIFT is Present. MCH (RBC) [Entitic mass] 31.7 pg 27.0-32.0 [facility] Work Phone: Nucleated RBC/100 WBC (Bld) [Ratio] 0 % 0-5 [facility] Work Phone: [phone] MCHC Auto (RBC) [Mass/Vol]on 06-06-2021 MCHC (RBC) [Mass/Vol] 34.2 g/dL 32-36 [facility] Work Phone: Platelets bldon 06-06-2021 Platelets (Bld) [#/Vol] 236 10*3/uL 150-173 [facility] Work Phone: Jose 05-31-2021 CNPN Telephone (AAKASHVelomedix) GLORIA MATHEW ([id number]) 1940 F CHT Date Time Provider Department 05/31/21 [facility] During your visit today, we recorded the following information about you: Ligia Bloom LPN 05/31/2021 1:20 PM Signed Pt LVM with her in home test result. INR 2.4 CALLIE Abad [facility] 06/03/2021 3:38 PM Signed Referred by: Dr. Perez Indication: [...] PT INR Date Value Ref Range Status 05/31/2021 2.4 Final Current warfarin dose: 1mg daily Description CONTINUE 1mg daily. Recheck INR in 1 week. Patient has been very sensitive to warfarin dose adjustments. She has been on 1mg daily since 10/22/20 and INR has been mostly stable. INR was elevated on 04/12. The patient had noticed a large bruise on right forearm, had some blood when blowing her nose, and thought she saw a small amount of blood after urinating. This prompted her to go for INR. She had been out of her multivitamin that contains 30 mcg of vitamin K which was thought to be the cause. She planned to resume the same vitamin, so held warfarin x2 doses. She also took a lower dose of 0.5mg on 04/14. She then resumed warfarin at 1mg daily. INR on 04/19 was slightly low at 1.8. Low INR likely due to taking the lower dose of 0.5mg on 04/14. Continued usual warfarin dose. INR on 05/06 was therapeutic at 2.9. She was then admitted to [facility] 05/06-05/09. She held warfarin in preparation for a heart cath on 05/09. Warfarin 1mg daily resumed on 05/09. She was then admitted 05/18-05/21 for afib RVR and underwent AV karin ablation and pacemaker insertion. INR was 2.6 on 05/19. She received 10mg oral vitamin K on 05/19 to reverse warfarin for procedure. Warfarin was restarted on 05/21. She received 2mg on 05/21 and INR was 1.1. INR on 05/24 was 1.5 which was an appropriate increase. Continued current dose. INR on 05/31 was therapeutic. Will continue current dose. Left detailed message. 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 - metoprolol tartrate, short acting, (LOPRESSOR) 50 mg tablet Take 1 tablet by mouth every 12 hours. - gabapentin (NEURONTIN) 300 mg capsule Take 300 mg by mouth twice daily. Can up titrate to max daily dose of 1,200 mg - fexofenadine (BRIGITTE) 180 mg tablet Take 180 mg by mouth daily at bedtime. - ipratropium bromide (ATROVENT) 42 mcg (0.06 %) nasal spray SPRAY 2 SPRAYS INTO EACH NOSTRIL TWICE A DAY - citalopram hydrobromide (CELEXA) 10 mg tablet - warfarin (COUMADIN) 1 mg tablet Take 1 tablet by mouth daily as directed. - simvastatin (ZOCOR) 10 mg tablet Take 10 mg by mouth daily at bedtime. - ascorbic acid, vitamin C, (VITAMIN C) 500 mg tablet Take 1 tablet by mouth twice daily. - pramipexole (MIRAPEX) 0.25 mg tablet Take 1 tablet by mouth daily at bedtime. - cholestyramine (QUESTRAN) 4 gram packet Take 1 Packet by mouth once daily. - alendronate (FOSAMAX) 70 mg tablet Take 1 tablet by mouth once each week. - Cyanocobalamin (VITAMIN B-12) 1,000 mcg subl Dissolve 1 tablet under the tongue once daily. - calcium carbonate (CALTRATE) 600 mg calcium (1,500 mg) tab Take 600 mg by mouth once daily. - Biotin-Silicon Wglw-W-Rhbpqrvz 5,000 mcg-100 mg- 50 mg tab Take 1 tablet by mouth once daily. - Cholecalciferol, Vitamin D3, 1,000 unit cap Take 1,000 Units by mouth once daily. 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 Normal [facility] - Coagulationon 0 05-31-2021 INR Coag (Bld) [Relative time] 2.4 {INR} [facility] Work Phone: Comment on above: Critical Value > 4.0 Whole blood prothrombin time on 05-31-2021 PT Coag (Bld) [Time] 27.4 s 11.9-14.4 [facility] Work Phone: Jose 05-28-2021 CNPN Telephone (PODCCP) GLORIA MATHEW ([id number]) 1940 F CHT Date Time Provider Department 05/28/21 LUISA LYON During your visit today, we recorded the following information about you: Luisa Lyon RN 05/28/2021 11:20 AM Signed PATIENT INFORMATION Record ID: [id number] Patient Name: Gloria [facility]: [facility] [place] [place] Attending: Adalid Duvall Center: General Radiology INSTRUCTIONS All Clear SN to remind patient of next upcoming appointment date, time, location All Clear All Clear All Clear SURVEY INFORMATION Medical/Nurse Studio Producer: Luisa Lyon 1. Your discharge instructions are important in [...] new or different symptoms? (Standard Question) No Allergies As of Date: 05/28/2021 Noted Allergy Reaction ZOLOFT (SERTRALINE) 10/14/2019 14 - Other: See Comments Comments: palpitations Date Reviewed: 05/21/2021 Reviewed by: Priya Schmitz RN - Fully Assessed Reason for Visit: Follow Up Phone Call [[phone]] Cmt: All Clear. Prescriptions as of 05/28/2021 - acetaminophen (TYLENOL) 325 mg tablet Take 2 tablets by mouth every 6 hours as needed for pain. - metoprolol tartrate, short acting, (LOPRESSOR) 50 mg tablet Take 1 tablet by mouth every 12 hours. - gabapentin (NEURONTIN) 300 mg capsule Take 300 mg by mouth twice daily. Can up titrate to max daily dose of 1,200 mg - fexofenadine (BRIGITTE) 180 mg tablet Take 180 mg by mouth daily at bedtime. - ipratropium bromide (ATROVENT) 42 mcg (0.06 %) nasal spray SPRAY 2 SPRAYS INTO EACH NOSTRIL TWICE A DAY - citalopram hydrobromide (CELEXA) 10 mg tablet - warfarin (COUMADIN) 1 mg tablet Take 1 tablet by mouth daily as directed. - simvastatin (ZOCOR) 10 mg tablet Take 10 mg by mouth daily at bedtime. - ascorbic acid, vitamin C, (VITAMIN C) 500 mg tablet Take 1 tablet by mouth twice daily. - pramipexole (MIRAPEX) 0.25 mg tablet Take 1 tablet by mouth daily at bedtime. - cholestyramine (QUESTRAN) 4 gram packet Take 1 Packet by mouth once daily. - alendronate (FOSAMAX) 70 mg tablet Take 1 tablet by mouth once each week. - Cyanocobalamin (VITAMIN B-12) 1,000 mcg subl Dissolve 1 tablet under the tongue once daily. - calcium carbonate (CALTRATE) 600 mg calcium (1,500 mg) tab Take 600 mg by mouth once daily. - Biotin-Silicon Lrkw-Y-Qoawiwfr 5,000 mcg-100 mg- 50 mg tab Take 1 tablet by mouth once daily. - Cholecalciferol, Vitamin D3, 1,000 unit cap Take 1,000 Units by mouth once daily. 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] 04/06/2018 04/18/2018 Mitral regurgitation [I34.0] 04/06/2018 04/18/2018 S/P mitral valve replacement with bioprosthetic* 018 S/P Maze operation for atrial fibrillation [Z98*04/18/2018 Hypotension [I95.9] 04/18/2018 S/P left atrial appendage ligation [Z98.890] 04/18/2018 Stress hyperglycemia [R73.9] 04/18/2018 Anemia associated with acute blood loss [D62] 04/18/2018 Leukocytosis [D72.829] 04/18/2018 Malnutrition of mild degree (HCC) [E44.1] 04/21/2018 Prolonged Q-T interval on ECG [R94.31] 05/31/2018 Lung nodules [R91.8] 06/03/2018 Paroxysmal ventricular tachycardia (HCC) [I47.2]06/24/2018 Atrial fibrillation with rapid ventricular resp*05/19/2021 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*05/20/2021 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 Pt was in hospital earlier this week for pacer implant. Ligia Bloom LPN Mellisa Dutta, [facility] 05/24/2021 2:31 PM Signed Referred by: Dr. Perez Indication: [...] PT INR Date Value Ref Range Status 05/24/2021 1.4 Final Current warfarin dose: 1mg daily Description CONTINUE 1mg daily. Recheck INR in 1 week. Patient has been very sensitive to warfarin dose adjustments. She has been on 1mg daily since 10/22/20 and INR has been mostly stable. INR was elevated on 04/12. The patient had noticed a large bruise on right forearm, had some blood when blowing her nose, and thought she saw a small amount of blood after urinating. This prompted her to go for INR. She had been out of her multivitamin that contains 30 mcg of vitamin K which was thought to be the cause. She planned to resume the same vitamin, so held warfarin x2 doses. She also took a lower dose of 0.5mg on 04/14. She then resumed warfarin at 1mg daily. INR on 04/19 was slightly low at 1.8. Low INR likely due to taking the lower dose of 0.5mg on 04/14. Continued usual warfarin dose. INR on 05/06 was therapeutic at 2.9. She was then admitted to [facility] 05/06-05/09. She held warfarin in preparation for a heart cath on 05/09. Warfarin 1mg daily resumed on 05/09. She was then admitted 05/18-05/21 for afib RVR and underwent AV karin ablation and pacemaker insertion. INR was 2.6 on 05/19. She received 10mg oral vitamin K on 05/19 to reverse warfarin for procedure. Warfarin was restarted on 05/21. She received 2mg on 05/21 and INR was 1.1. INR today is 1.5 which is an appropriate increase. Will continue usual dose of 1mg daily and recheck in 1 week. Discussed with patient on the phone who read back instructions and verbalized understanding. 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 - metoprolol tartrate, short acting, (LOPRESSOR) 50 mg tablet Take 1 tablet by mouth every 12 hours. - gabapentin (NEURONTIN) 300 mg capsule Take 300 mg by mouth twice daily. Can up titrate to max daily dose of 1,200 mg - fexofenadine (BRIGITTE) 180 mg tablet Take 180 mg by mouth daily at bedtime. - ipratropium bromide (ATROVENT) 42 mcg (0.06 %) nasal spray SPRAY 2 SPRAYS INTO EACH NOSTRIL TWICE A DAY - citalopram hydrobromide (CELEXA) 10 mg tablet - warfarin (COUMADIN) 1 mg tablet Take 1 tablet by mouth daily as directed. - simvastatin (ZOCOR) 10 mg tablet Take 10 mg by mouth daily at bedtime. - ascorbic acid, vitamin C, (VITAMIN C) 500 mg tablet Take 1 tablet by mouth twice daily. - pramipexole (MIRAPEX) 0.25 mg tablet Take 1 tablet by mouth daily at bedtime. - cholestyramine (QUESTRAN) 4 gram packet Take 1 Packet by mouth once daily. - alendronate (FOSAMAX) 70 mg tablet Take 1 tablet by mouth once each week. - Cyanocobalamin (VITAMIN B-12) 1,000 mcg subl Dissolve 1 tablet under the tongue once daily. - calcium carbonate (CALTRATE) 600 mg calcium (1,500 mg) tab Take 600 mg by mouth once daily. - Biotin-Silicon Nsft-W-Mnlajncf 5,000 mcg-100 mg- 50 mg tab Take 1 tablet by mouth once daily. - Cholecalciferol, Vitamin D3, 1,000 unit cap Take 1,000 Units by mouth once daily. 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 [facility] ALLIED HEALTHon 05-21-2021 ALLIED HEALTH HNO ID: [id number] Author: Randi Gomez RT(R) Service: Radiology Author Type: Technologist Type: Allied Health Filed: 05/21/2021 7:38 AM Note Text: Radiology Service Progress Note PATIENT NAME: Gloria Mathew DATE OF SERVICE: May 21, 2021 TIME: 7:38 AM PATIENT IDENTITY VERIFICATION COMPLETED USING TWO (2) IDENTIFIERS: Name and Date of confirmed by patient verbally and Name and Date of confirmed by identification band. FALL SCREENING: Has the patient had 2 falls in the last year or 1 fall with injury or currently using an Ambulatory Assistive Device (Walker, Cane, Wheelchair, Crutches, etc.)? Inpatient: Screened on floor PATIENT GENDER DATA: Female. status: : No status: NO. PATIENT RELEVANT IMPLANT DATA REVIEWED: Not Applicable RADIOLOGY DEPARTMENT: General X-ray: Exam(s) Completed: Chest X-Ray PERIPHERAL IV DATA: Not applicable SIGNED BY: RT Dyan(R) May 21, 2021 7:38 AM [facility] ANES POSTPROC EVALon 022 ANES POSTPROC EVAL HNO ID: [id number] Author: Todd Rodriguez MD Service: Anesthesiology Author Type: Physician Type: Anesthesia Postprocedure Evaluation Filed: 05/21/2021 10:20 AM Note Text: POST ANESTHESIA EVALUATION NOTE : 1940 Procedure Summary Date: 05/20/21 Room / Location: [place] EP 01 / EP LAB Anesthesia Start: 1428 Anesthesia Stop: 175 Procedures: (AVN ABLATION) CATH ABLATION AV NODE FUNCTION AV CONDUCTION CREATE COMP HEART BLOCK W/WO TEMP PACEMAKER PLCMT (Bilateral ) (NEW IMPLANT DUAL CHAMBER PPM) INSERTION OF A NEW PERMANENT PACEMAKER W/ INSERTION OF NEW TRANSVENOUS ELECTRODE(S) ATRIAL AND VENTRICULAR (Left ) Diagnosis: Longstanding persistent atrial fibrillation (HCC) Surgeons: Pacheco Lechuga MD Responsible Provider: Todd Rodriguez MD Anesthesia Type: MAC ASA Status: 3 Anesthesia Type: MAC Last Vitals Vitals Value Taken Time BP 139/76 05/20/212108 Temp 36.7 ?C (98.1 ?F) 05/20/212108 Pulse 83 05/20/21 210 Resp 18 05/20/21 210 SpO2 97 % 05/20/21 1809 Post Anesthesia Patient Status Patient Evaluation: PACU. PACU/ICU Patient Condition: stable. Anticipated Disposition: inpatient floor planned admission. Neurological Status: aware and responsive. Pulmonary Status: breathing comfortably on supplemental oxygen Airway Control: returned to baseline unsupported. Cardiovascular Status: stable. Pain Management: clinically adequate Postoperative Hydration: acceptable. Intraoperative Events: no significant anesthesia events Post Operative Nausea/Vomiting Status: no significant post operative nausea or vomiting Anesthetic Observations: Recommendation: continue current plan of care and further care per PACU/ICU/floor team. Anesthesia Observations No Documentation SIGNATURE: Todd Rodriguez MD PATIENT NAME: Gloria Mathew DATE: May 21, 2021 TIME: 10:19 AM CSN: [id number] Normal [facility] CBC panel Auto (Bld)on 05-21 Erythrocyte distribution width (RBC) [Ratio] 12.8 % Normal 11.5-15.0 [facility] Comment on above: Order Comment: Speci men Type: BLOOD SPECIMEN Performed By: #### 5 8410-2 ####[facility]ORY[facility]IA [id number] [address] Hematocrit (Bld) [Volume fraction] 36.4 % Normal 36.0-46.0 [facility] Comment on above: Order Comment: Speci men Type: BLOOD SPECIMEN Performed By: #### 5 8410-2 ####[facility]ORYCLIA [id number] [address] Hemoglobin (Bld) [Mass/Vol] 12.3 g/dL Normal 11.5-15.5 [facility] Comment on above: Order Comment: Speci men Type: BLOOD SPECIMEN Performed By: #### 5 8410-2 ####[facility]ORYCLIA [id number] [address] MCH (RBC) [Entitic mass] 30.8 pg Normal 26.0-34.0 [facility] Comment on above: Order Comment: Speci men Type: BLOOD SPECIMEN Performed By: #### 5 8410-2 ####[facility]ORYCL[facility] [id number] [address] MCHC (RBC) [Mass/Vol] 33.8 g/dL Normal 30.5-36.0 [facility] Comment on above: Order Comment: Speci men Type: BLOOD SPECIMEN Performed By: #### 5 8410-2 ####[facility]ORYCLIA [id number] [address] MCV (RBC) [Entitic vol] 91.2 fL Normal 80.0-100.[address] [place] Comment on above: Order Comment: Speci men Type: BLOOD SPECIMEN Performed By: #### 5 8410-2 ####[facility]ORYCLIA [id number] [address] Nucleated RBC (Bld) [#/Vol] 10*3/uL Normal <0.01 [facility] Comment on above: Order Comment: Speci men Type: BLOOD SPECIMEN Performed By: #### 5 8410-2 ####[facility]ORYCLIA [id number] [place] [address] [facility] Platelet mean volume (Bld) [Entitic vol] 9.0 fL Normal 9.0-12.7 [facility] Comment on above: Order Comment: Speci men Type: BLOOD SPECIMEN Performed By: #### 5 8410-2 ####[facility]ORYCLIA [id number] [place] [id number] [facility] Platelets (Bld) [#/Vol] 160 10*3/uL Normal 150-400 [facility] Comment on above: Order Comment: Speci men Type: BLOOD SPECIMEN Performed By: #### 5 8410-2 ####[facility]ORYCLIA [id number] [place] [id number] [facility] RBC (Bld) [#/Vol] 3.99 10*6/uL Normal 3.90-5.20 [facility] Comment on above: Order Comment: Speci men Type: BLOOD SPECIMEN Performed By: #### 5 8410-2 ####[facility]ORYCLIA [id number] [place] [id number] [facility] WBC (Bld) [#/Vol] 6.63 10*3/uL Normal 3.70-11.00 [facility] Comment on above: Order Comment: Speci men Type: BLOOD SPECIMEN Performed By: #### 5 8410-2 ####[facility]ORYCLIA [id number] [place] [id number] [facility] CNDSon 05-21-2021 CNDS HNO ID: [id number] Author: Adalid Duvall DO Service: Hospital Medicine Author Type: Physician Type: Discharge Summary Filed: 05/21/2021 2:01 PM Note Text: DISCHARGE SUMMARY PATIENT NAME: Gloria Mathew Code Status: Not on file Highest Readmission Risk Score: 14 The 30 day readmissions risk score is [...] summary. Admission Information Admission Information ADMIT DATE: 05/18/2021 DISCHARGE DATE: 05/21/2021 MY DOCTORS AND MEDICAL TEAM: My Main [facility] Doctor: Adalid Duvall DO Primary Care Provider: Loree Vallecillo MD My Medical Team Members: Treatment Team: Attending Provider: Adalid Duvall DO Consulting: Desmond Acosta MD Primary Service: Faustino Hopkins MY CONDITION AT DISCHARGE: Fair REASON I WAS IN THE HOSPITAL: AV node ablation, pacemaker SUMMARY OF WHAT HAPPENED WHILE I WAS IN THE HOSPITAL: 80-year-old female with a past medical history of A. fib on coumadin who was admitted for A. fib with RVR. Patient follows with EP as an outpatient. She presented to outside facility with A. fib with RVR. She was transferred to our facility for EP evaluation. Coumadin was held, EP performed AV node ablation with pacemaker implanted. She and her sister (who is a nurse) were given instructions and education. Coumadin was restarted. She'll be discharged home with instruction to follow-up with her PCP,coumdin clinic and cardiology as an outpatient. 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 No baths or showers for one week You may shower. Avoid letting stream hit left upper chest pacer site directly. After one week you may keep your back turned to the stream, lather up shoulders, and let warm soapy water run over pacer site. Do not remove steri strips from left upper chest. These will fall off on their own over time. Do not submerge bilateral groin sites under water. Lather above groin sites and let warm soapy mix run over groin sites. No driving for: one week Okay to drive 1 week after procedure. No exercise for: six weeks, no lifting over head No lifting left arm above shoulder for 6 weeks. Diet Instructions Resume your pre-hospital diet For Pain When You Leave the Hospital Apply a covered cold pack to the area every two hours for two days Use acetaminophen (Tylenol) as recommended on the bottle Wound/Surgical Site Care Any bruising and bumps should disappear within 3-4 days Avoid lotions or powders Check your wound every day If the bruising expands or the bump enlarges please call your doctor Some bruising, soreness or a small bump under the skin at the inserion site is normal Call Your Doctor If There is an unusual odor from the wound area There is severe pain at the operative site You have lightheadedness, fainting, or confusion You have persistent or heavy bleeding You have redness, swelling, pus or drainage from the wound You have swollen glands or cold and clammy skin Your temperature is greater than 101F Follow Up Appointments Follow-Up Appointment When: In 2 weeks Patient/Parents to call for appointment?: Yes Desmond Acosta MD [phone] [address] [facility] [address] [facility] [address] PCP Requested Referral Follow-Up Appointment Follow up with PCP and coumadin clinic to ensure INR is 2-3 When: In 1 week Patient/Parents to call for appointment?: Yes Saroj Avelar MD [phone] [address] [facility] [address] PCP Requested Referral Follow-Up Appointment With: Coumadin clinic. Call tomorrow 05/22 When: Tomorrow Patient/Parents to call for appointment?: Yes Additional Provider to Provider Information: 80-year-old female with a past medical history of A. fib on coumadin who was admitted for A. fib with RVR. Patient follows with EP as an outpatient. She presented to outside facility with A. fib with RVR. She was transferred to our facility for EP evaluation. Coumadin was held, EP performed AV node ablation with pac (more content not included)... Normal [facility] Jose 05-21-2021 REBEKA Telephone (AGCARDPOB ) QUINCYGLORIA Merly ([id number]) 1940 F T Date Time Provider Department 05/21/21 MERRITT ROUSE During your visit today, we recorded the following information about you: Vicky Ruiz RN 05/22/2021 9:43 AM Signed Merritt Rouse APRN.MOLD DUMPER You 17 hours ago (4:16 PM) DL Pt will need scheduled for 1 week wound check. Underwent PPM and ablate with Dr. Lechuga on 05/20. Thanks, Merritt Routing comment Vicky Ruiz RN 05/28/2021 10:39 AM Signed I spoke to the patient. She states that the incision looks good with steri strips on and without redness, drainage or swelling.Patient denies discomfort or elevated temperatures. Patient will be following in [place] and has appointment with [facility] next week. Vicky Ruiz RN Allergies As of Date: 05/21/2021 Noted Allergy Reaction ZOLOFT (SERTRALINE) 10/14/2019 14 - Other: See Comments Comments: palpitations Date Reviewed: 05/21/2021 Reviewed by: Priya Schmitz RN - Fully Assessed Reason for Visit: Follow Up [171] Prescriptions as of 05/28/2021 - acetaminophen (TYLENOL) 325 mg tablet Take 2 tablets by mouth every 6 hours as needed for pain. - metoprolol tartrate, short acting, (LOPRESSOR) 50 mg tablet Take 1 tablet by mouth every 12 hours. - gabapentin (NEURONTIN) 300 mg capsule Take 300 mg by mouth twice daily. Can up titrate to max daily dose of 1,200 mg - fexofenadine (BRIGITTE) 180 mg tablet Take 180 mg by mouth daily at bedtime. - ipratropium bromide (ATROVENT) 42 mcg (0.06 %) nasal spray SPRAY 2 SPRAYS INTO EACH NOSTRIL TWICE A DAY - citalopram hydrobromide (CELEXA) 10 mg tablet - warfarin (COUMADIN) 1 mg tablet Take 1 tablet by mouth daily as directed. - simvastatin (ZOCOR) 10 mg tablet Take 10 mg by mouth daily at bedtime. - ascorbic acid, vitamin C, (VITAMIN C) 500 mg tablet Take 1 tablet by mouth twice daily. - pramipexole (MIRAPEX) 0.25 mg tablet Take 1 tablet by mouth daily at bedtime. - cholestyramine (QUESTRAN) 4 gram packet Take 1 Packet by mouth once daily. - alendronate (FOSAMAX) 70 mg tablet Take 1 tablet by mouth once each week. - Cyanocobalamin (VITAMIN B-12) 1,000 mcg subl Dissolve 1 tablet under the tongue once daily. - calcium carbonate (CALTRATE) 600 mg calcium (1,500 mg) tab Take 600 mg by mouth once daily. - Biotin-Silicon Mady-N-Yvnxtnck 5,000 mcg-100 mg- 50 mg tab Take 1 tablet by mouth once daily. - Cholecalciferol, Vitamin D3, 1,000 unit cap Take 1,000 Units by mouth once daily. 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] 04/06/2018 04/18/2018 Mitral regurgitation [I34.0] 04/06/2018 04/18/2018 S/P mitral valve replacement with bioprosthetic* 018 S/P Maze operation for atrial fibrillation [Z98*04/18/2018 Hypotension [I95.9] 04/18/2018 S/P left atrial appendage ligation [Z98.890] 04/18/2018 Stress hyperglycemia [R73.9] 04/18/2018 Anemia associated with acute blood loss [D62] 04/18/2018 Leukocytosis [D72.829] 04/18/2018 Malnutrition of mild degree (HCC) [E44.1] 04/21/2018 Prolonged Q-T interval on ECG [R94.31] 05/31/2018 Lung nodules [R91.8] 06/03/2018 Paroxysmal ventricular tachycardia (HCC) [I47.2]06/24/2018 Atrial fibrillation with rapid ventricular resp*05/19/2021 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*05/20/2021 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] 05/20/2021 Obstructive sleep apnea syndrome [G47.33] 05/20/2021 Neuropathy [G62.9] 05/20/2021 Anticoagulated on warfarin [Z79.01] 05/20/2021 Encounter Status:Closed by VICKY RUZI on 05/28/21 [facility] CONSULT PROGon 05-21-2021 CONSULT PROG HNO ID: [id number] Author: Kourtney Tineo RPh Service: Pharmacy Author Type: Pharmacist Type: Consult Progress Note Filed: 05/21/2021 2:03 PM Note Text: PHARMACY ANTICOAGULATION CONSULT PATIENT NAME: Gloria Mathew DATE of SERVICE: 05/21/2021 TIME of SERVICE: 1:51 PM Indication for Anticoagulation: A fib Goal INR: 2.0 to 3.0 Expected Duration of Therapy: Indefinite Assessment: New Start: No Home Dose: warfarin 1 mg daily - Pt gets her INR at [facility], but she does follow Other Anticoagulants: None Dosing Considerations/Precau tions: High fall risk; Hx of albuminuria (resolved) Drug Interactions: no pertinent DDI. Noted guest experience captain: citalopram (can increase bleed risk, but home medication w/ no recent changes; so currently risk is low) Evidence of side effects?: No Plan: Patient is currently subtherapeutic. Based on the dosing algorithm approved by the hospital Pharmacy and Therapeutics Committee, the following order will be initiated: . Date INR Warfarin Dose 05/21/2020 1.1 2 mg - Received 2 doses of Vitamin K 5 mg on 05/19 d/t procedure - INR decreases has stabilized 2.3> 1.3 and now at 1.1 (-0.1 drop) - Noted our outpatient [facility] notation that pt with INR sensitivity and has generally been therapeutic in her warfarin 1 mg daily regimen - Per pt- appetite is ok - Will double just today's dose before pt leaves d/t Vitamin K given and INR of 1.1. Will give 2 mg x 1 - Pt will be discharged today 05/21 and can resume home dose. Recommend to have INR check if possible no later than this upcoming Wednesday 05/24 Patient?s INR, condition, and signs/symptoms of bleeding will be monitored daily. Recommended post discharge dosing: Warfarin 1 mg daily. Recommend to have INR check if possible no later than this upcoming Wednesday 05/24 Thank you for allowing me to participate in the care for this patient. Current Laboratory Values Recent Labs 05/21/21 0420 05/20/21 0455 05/19/21 0353 05/06/21 1050 INR 1.1 1.3 2.6* 2.9 Recent Labs 05/21/21 04205/19/21 0354 HB 12.3 12.2 HCT 36.4 36.8 PLT 160 150 CrCl cannot be calculated (Unknown ideal weight.). Current Medications Current Facility-Administered Medications Medication Dose Route Frequency - simvastatin 10 mg tab(s) (ZOCOR) 10 mg ORAL AT BEDTIME - metoprolol tartrate (short acting) 50 mg tab(s) (LOPRESSOR) 50 mg ORAL q 12 H - sodium chloride 0.9 % (flush) 3-5 mL (BD POSIFLUSH) 3-5 mL INTRAVENOUS q 12 H - NaCl 0.9% iv flush bag 20 mL INTRAVENOUS PRN - citalopram hydrobromide 10 mg tablet (CeleXA) 10 mg ORAL DAILY - cholestyramine 4 g packet (QUESTRAN) 1 Packet ORAL DAILY - gabapentin 300 mg cap(s) (NEURONTIN) 300 mg ORAL DAILY - gabapentin 600 mg cap(s) (NEURONTIN) 600 mg ORAL AT BEDTIME - pramipexole (MIRAPEX) tab(s) 0.75 mg 0.75 mg ORAL AT BEDTIME - ondansetron orally disintegrating 4 mg tab(s) (ZOFRAN ODT) 4 mg ORAL q 6 H PRN Or - ondansetron (PF) 4 mg injection (ZOFRAN) 4 mg INTRAVENOUS q 6 H PRN - metoclopramide HCl 5 mg (REGLAN) 5 mg ORAL q 6 H PRN Or - metoclopramide HCl 10 mg injection (REGLAN) 10 mg INTRAVENOUS q 6 H PRN - acetaminophen 650 mg tab(s) (TYLENOL) 650 mg ORAL q 6 H PRN - morphine 1 mg injection 1 mg INTRAVENOUS q 2 H PRN - oxyCODONE-acetaminoph en 5-325 mg 1 tablet (PERCOCET) 1 tablet ORAL q 6 H PRN - WARFARIN DOSING PER PHARMACY 1 Each OTHER DAILY - WARFARIN - warfarin 2 mg tab(s) (COUMADIN) 2 mg ORAL ONCE - WARFARIN Has patient received education: No Signature: Kourtney Tineo [facility] Pager/Extension: Ext # [phone] Normal [facility] Comprehensive metabolic 2000 panelon 05-21-2021 Albumin [Mass/Vol] 3.3 g/dL Low 3.9-4.9 [facility] Comment on above: Order Comment: Speci men Type: BLOOD SPECIMEN Performed By: #### 2 432-8, #### [facility] CLIA [id number] [address] ALP [Catalytic activity/Vol] 71 U/L Normal 34-123 [facility] Comment on above: Order Comment: Speci men Type: BLOOD SPECIMEN Performed By: #### 2 [id number]-, #### [facility] CLIA [id number] [address] ALT With P-5'-P [Catalytic activity/Vol] 20 U/L Normal 7-38 [facility] Comment on above: Order Comment: Speci men Type: BLOOD SPECIMEN Performed By: #### 2 8, #### [facility] CLIA [id number] [address] Anion gap [Moles/Vol] 9 mmol/L Normal 9-18 [facility] Comment on above: Order Comment: Speci men Type: BLOOD SPECIMEN Performed By: #### 2 4328, #### [facility] CLIA [id number] [address] AST With P-5'-P [Catalytic activity/Vol] 20 U/L Normal 13-35 [facility] Comment on above: Order Comment: Speci men Type: BLOOD SPECIMEN Performed By: #### 2 4322-12, #### [facility] CLIA [id number] [address] Bilirubin [Mass/Vol] 1.0 mg/dL Normal 0.2-1.3 [facility] Comment on above: Order Comment: Speci men Type: BLOOD SPECIMEN Performed By: #### 2 4322-12, #### [facility] CLIA [id number] [address] Calcium [Mass/Vol] 8.8 mg/dL Normal 8.5-10.2 [facility] Comment on above: Order Comment: Speci men Type: BLOOD SPECIMEN Performed By: #### 2 4322-12, #### [facility] CLIA [id number] [address] STATES [place] [facility] Chloride [Moles/Vol] 108 mmol/L High 97-105 [facility] Comment on above: Order Comment: Speci men Type: BLOOD SPECIMEN Performed By: #### 2 4322-12, #### [facility] CLIA [id number] [address] [place] [facility] CO2 [Moles/Vol] 24 mmol/L Normal 22-30 [facility] Comment on above: Order Comment: Speci men Type: BLOOD SPECIMEN Performed By: #### 2 4322-12, #### [facility] CLIA [id number] [address] [place] Creatinine [Mass/Vol] 0.96 mg/dL Normal 0.58-0.96 [facility] Comment on above: Order Comment: Speci men Type: BLOOD SPECIMEN Performed By: #### 2 4322-12, #### [facility] CLIA [id number] [address] [place] GFR/1.73 sq M.predicted MDRD (S/P/Bld) [Vol rate/Area] mL/min/{1.73_m2} Normal [facility] Comment on above: Order Comment: Speci men Type: BLOOD SPECIMEN Result Comment: 56 eGFR (Estimated GFR) Units of measure: mL/min/1.73 meters squared eGFR is derived from the reexpressed MDRD Study equation using the following parameters: serum creatinine, age, gender and race. The creatinine assay has been calibrated to be traceable to IDMS. An eGFR <60 mL/min/1.73m2 for >3 months is consistent with chronic kidney disease. Refer to KDOQI guidelines for clinical interpretation. In patients with unstable renal function, e.g. those with acute kidney injury, the eGFR may not accurately reflect actual GFR. Performed By: #### 2 43207-09, #### [facility] CLIA [id number] 1 [place] [address] [place] Glucose [Mass/Vol] 88 mg/dL Normal 74-99 [facility] Comment on above: Order Comment: Speci men Type: BLOOD SPECIMEN Result Comment: The [place] [employer] (ADA) provides guidance for cutoff values for fasting glucose and random glucose. The ADA defines fasting as no caloric intake for at least 8 hours. Fasting plasma glucose results between 100 to 125 mg/dL indicate increased risk for diabetes (prediabetes). Fasting plasma glucose results greater than or equal to 126 mg/dL meet the criteria for diagnosis of diabetes. In the absence of unequivocal hyperglycemia, results should be confirmed by repeat testing. In a patient with classic symptoms of hyperglycemia or hyperglycemic crisis, random plasma glucose results greater than or equal to 200 mg/dL meet the criteria for diagnosis of diabetes. Reference: Standards of Medical Care in Diabetes 2016, [place] [employer]. Diabetes Care. 2016.39(Suppl 1). Performed By: #### 2 4323-, #### [facility] CLIA [id number] 1 [place] [address] [place] Potassium [Moles/Vol] 4.1 mmol/L Normal 3.7-5.1 [facility] Comment on above: Order Comment: Speci men Type: BLOOD SPECIMEN Performed By: #### 2 4322-12, #### [facility] CLIA [id number] [address] Protein [Mass/Vol] 5.4 g/dL Low 6.3-8.0 [facility] Comment on above: Order Comment: Speci men Type: BLOOD SPECIMEN Performed By: #### 2 4328, #### [facility] CLIA [id number] [address] Sodium [Moles/Vol] 141 mmol/L Normal 136-144 [facility] Comment on above: Order Comment: Speci men Type: BLOOD SPECIMEN Performed By: #### 2 43207-09, #### [facility] CLIA [id number] [address] Urea nitrogen [Mass/Vol] 15 mg/dL Normal 7-21 [facility] Comment on above: Order Comment: Speci men Type: BLOOD SPECIMEN Performed By: #### 2 4322-12, #### [facility] CLIA [id number] [address] Magnesium SerPl-mCncon 05-21 Magnesium [Mass/Vol] 1.7 mg/dL Normal 1.7-2.3 [facility] Comment on above: Order Comment: Speci men Type: BLOOD SPECIMEN Performed By: #### 2 4328, #### [facility] CLIA [id number] [address] NURSING PROGon 05-21-2021 NURSING PROG HNO ID: [id number] Author: Priya Schmitz RN Service: Nursing Author Type: Registered Nurse Type: Nursing Progress Note Filed: 05/21/2021 5:04 PM Note Text: Summary: discharge DC'd #20g angiocath from [facility] intact, site care done. LC and right groin dressings dry/intact, sites soft without drainage or s/s infection present. Reviewed discharge instructions with patient and sister, deny questions or concerns at this time. Reviewed today's INR with patient, encouraged calling coumadin clinic as soon as home for further instructions; verbalizes understanding. Discharged in by nurse with all personal belongings and discharge instructions. Normal [facility] PT panel Coag (PPP)on 2021 INR Coag (PPP) [Relative time] 1.1 {INR} Normal 0.9-1.3 [facility] Comment on above: Order Comment: Speci men Type: BLOOD SPECIMEN Result Comment: Amita min K Antagonist (VKA) Therapeutic Range: INR 2 to 3 (Target INR of 2.5) Note: For patients treated with VKA drugs, such as warfarin, the [place] [employer] 2012 Guideline recommends a therapeutic INR range of 2 to 3 (target INR of 2.5). This recommendation includes high-risk patients with antiphospholipid syndrome with previous arterial or venous thromboembolism, current-generation mechanical or bioprosthetic aortic heart valve replacement. Note: Patients with mechanical aortic valve replacement and additional risk factors for thromboembolic events (atrial fibrillation, previous thromboembolism, LV dysfunction, hypercoagulable conditions) or an older generation mechanical AVR (i.e., ball in-Cage) or any mechanical MVR should have a INR therapeutic range of 2.5 to 3.5 (target INR of 3). Nathanael PITTS, et al. Chest 2012, 141:7S-47S [place] LAURA et al. JAC 2017, 70: 252-289 Performed By: #### 3 4528-0 #### [facility] CLIA [id number] [address] PT Coag (PPP) [Time] 12.1 s Normal 9.7-13.0 [facility] Comment on above: Order Comment: Speci men Type: BLOOD SPECIMEN Performed By: #### 3 4528-0 #### [facility] CLIA [id number] [address] XR CHEST 2V FRONTAL/LATon XR CHEST 2V FRONTAL/LAT * * *Final Repor t* * * DATE OF EXAM: May 21 2021 7:37AM AKX [id number] - XR CHEST 2V FRONTAL/LAT / PROCEDURE REASON: Pneumothorax * * * * Physician Interpretation * * * * EXAMINATION: CHEST RADIOGRAPH (2 VIEW FRONTAL and LATERAL) CLINICAL HISTORY: Pneumothorax, Post-operative / post-procedure assessment, asymptomatic MQ: [id number] EXAM DATE/TIME: 05/21/2021 7:37 AM COMPARISON: 05/05/2021 outside chest x-ray. RESULT: Lines, tubes, and devices: Left-sided cardiac pacing device overlying left chest with one lead in the region of the right atrium and one lead in the region of the right ventricle. The patient has left atrial appendage clip. Intact median sternotomy wires. Overlying rn cardiac leads. Lungs and pleura: No pneumothorax. Trace bilateral pleural effusions. Lungs are otherwise clear. Cardiomediastinal silhouette: Widening of the superior mediastinum appears to be due to tortuous brachiocephalic vessels and is stable since 2019 chest x-ray. Bones and soft tissues: Unremarkable. IMPRESSION: Status post left-sided cardiac pacing device. Leads in expected position. No pneumothorax. 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 Transcribe Date/Time: May 21 2021 7:57A Dictated by : TRINITY AMADOR MD This examination was interpreted and the report reviewed and electronically signed by: TRINITY AMADOR MD on May 21 2021 7:59AM EST [id number] Normal [facility] ANES PRE-OPon 05-20-2021 ANES PRE-OP HNO ID: [id number] Author: Jaciel Hines MD Service: Anesthesiology Author Type: Physician Type: Anesthesia Preprocedure Evaluation Filed: 05/20/2021 2:08 PM Note Text: ANESTHESIOLOGY DAY OF SURGERY NOTE : 1940 Procedure Information Date/Time: 05/20/21 1300 Procedures: (AVN ABLATION) CATH ABLATION AV NODE FUNCTION AV CONDUCTION CREATE COMP HEART BLOCK W/WO TEMP PACEMAKER PLCMT (Bilateral ) -if INR is low enough mdt COVID POS 12/2 (NEW IMPLANT DUAL CHAMBER PPM) INSERTION OF A NEW PERMANENT PACEMAKER W/ INSERTION OF NEW TRANSVENOUS ELECTRODE(S) ATRIAL AND VENTRICULAR (Left ) [facility]: [facility] Surgeons: Pacheco Lechuga MD Estimated body mass index is 26.52 kg/m? as calculated from the following: Height as of this encounter: 157.5 cm (5' 2). Weight as of 03/06/21: 65.8 kg (145 lb). Most recent hematocrit and potassium results: Hematocrit (I-STAT) 36.8 05/19/2021 Potassium (I-STAT) 4.0 05/20/2021 Relevant Problems CARDIO (+) A-fib (HCC) (+) Atrial fibrillation with rapid ventricular response (HCC) (+) Mitral valve regurgitation (+) Paroxysmal atrial fibrillation (HCC) (+) Paroxysmal ventricular tachycardia (HCC) I - PHYSICAL EVALUATION AIRWAY Patient intubated: No. Tracheostomy tube not present Mallampati: II. Neck ROM: full ROM without neurological symptoms. Mouth opening: adequate. DENTAL Dental findings: teeth intact and poor dentition. Additional exam findings: no II - ANESTHESIA PLAN ASA Score: 3 Anesthetic Plan: MAC NPO Status: adequate Monitoring plan: standard ASA. Postoperative analgesic plan: parenteral or oral opioids. Anesthetic Risks, Benefits, Alternatives, Personnel Discussed. Consent obtained from: patient.Patient / Surrogate agrees to blood products: blood products not planned Potential Anesthesia issues that may suggest increased risk of complications or contraindication to planned procedure: none. No vitals data found for the desired time range. Facility-Administered Medications as of 05/20/2021 Medication Dose Route Frequency - [MAR Hold due to Transfer] gabapentin 300 mg cap(s) (NEURONTIN) 300 mg ORAL DAILY - [MAR Hold due to Transfer] gabapentin 600 mg cap(s) (NEURONTIN) 600 mg ORAL AT BEDTIME - [MAR Hold due to Transfer] pramipexole (MIRAPEX) tab(s) 0.75 mg 0.75 mg ORAL AT BEDTIME - [JUL Hold due to Transfer] simvastatin 10 mg tab(s) (ZOCOR) 10 mg ORAL AT BEDTIME - [JUL Hold due to Transfer] metoprolol tartrate (short acting) 50 mg tab(s) (LOPRESSOR) 50 mg ORAL q 12 H - [JUL Hold due to Transfer] sodium chloride 0.9 % (flush) 3-5 mL (BD POSIFLUSH) 3-5 mL INTRAVENOUS q 12 H - [JUL Hold due to Transfer] NaCl 0.9% iv flush bag 20 mL INTRAVENOUS PRN - [COMPLETED] phytonadione (vitamin K1) 5 mg tab(s) (MEPHYTON) 5 mg ORAL ONCE - [JUL Hold due to Transfer] citalopram hydrobromide 10 mg tablet (CeleXA) 10 mg ORAL DAILY - [JUL Hold due to Transfer] cholestyramine 4 g packet (QUESTRAN) 1 Packet ORAL DAILY - [COMPLETED] phytonadione (vitamin K1) 5 mg tab(s) (MEPHYTON) 5 mg ORAL ONCE Outpatient Medications as of 05/20/2021 Medication Sig - metoprolol tartrate, short acting, (LOPRESSOR) 50 mg tablet Take 50 mg by mouth twice daily. - gabapentin (NEURONTIN) 300 mg capsule Take 300 mg by mouth twice daily. Can up titrate to max daily dose of 1,200 mg - pramipexole (MIRAPEX) 0.5 mg tablet Take 0.75 mg by mouth daily at bedtime. Takes 1.5 tab = 0.75 mg at bedtime - fexofenadine (BRIGITTE) 180 mg tablet Take 180 mg by mouth daily at bedtime. - flecainide (TAMBOCOR) 50 mg tablet Take 1 tablet by mouth as needed for up to 16 doses. If you experience an episode of palpitations that is persistent for more than 5 to 10 minutes take 1 to 2 tablets of the 50 mg strength. If you have any additional symptoms seek medical attention. If the episode last for an hour you can take a third tablet. Do not take more than 3 tablets in 24 hours - ipratropium bromide (ATROVENT) 42 mcg (0.06 %) nasal spray SPRAY 2 SPRAYS INTO EACH NOSTRIL TWICE A DAY - citalopram hydrobromide (CELEXA) 10 mg tablet - warfarin (COUMADIN) 1 mg tablet Take 1 tablet by mouth daily as directed. - simvastatin (ZOCOR) 10 mg tablet Take 10 mg by mouth daily at bedtime. - ascorbic acid, vitamin C, (VITAMIN C) 500 mg tablet Take 1 tablet by mouth twice daily. - pramipexole (MIRAPEX) 0.25 mg tablet Take 1 tablet by mouth daily at bedtime. - cholestyramine (QUESTRAN) 4 gram packet Take 1 Packet by mouth once daily. - alendronate (FOSAMAX) 70 mg tablet Take 1 tablet by mouth once each week. - Cyanocobalamin (VITAMIN B-12) 1,000 mcg subl Dissolve 1 tablet under the tongue once daily. - calcium carbonate (CALTRATE) 600 mg calcium (1,500 mg) tab Take 600 mg by mouth once daily. - Biotin-Silicon Pbol-B-Vlcgquvm 5,000 mcg-100 mg- 50 mg tab Take 1 tablet by mouth once daily. - Cholecalciferol, Vitamin D3, 1,000 unit ca (more content not included)... Normal [facility] Comprehensive metabolic 2000 panelon 05-20-2021 Albumin [Mass/Vol] 3.5 g/dL Low 3.9-4.9 [facility] Comment on above: Order Comment: Speci men Type: BLOOD SPECIMEN Performed By: #### 2 4322-12, #### [facility] CLIA [id number] [address] ALP [Catalytic activity/Vol] 74 U/L Normal 34-123 [facility] Comment on above: Order Comment: Speci men Type: BLOOD SPECIMEN Performed By: #### 2 4322-12, #### [facility] CLIA [id number] [address] ALT With P-5'-P [Catalytic activity/Vol] 22 U/L Normal 7-38 [facility] Comment on above: Order Comment: Speci men Type: BLOOD SPECIMEN Performed By: #### 2 4322-12, #### [facility] CLIA [id number] [address] Anion gap [Moles/Vol] 8 mmol/L Low 9-18 [facility] Comment on above: Order Comment: Speci men Type: BLOOD SPECIMEN Performed By: #### 2 8, #### [facility] CLIA [id number] [address] AST With P-5'-P [Catalytic activity/Vol] 17 U/L Normal 13-35 [facility] Comment on above: Order Comment: Speci men Type: BLOOD SPECIMEN Performed By: #### 2 8, #### [facility] CLIA [id number] [address] Bilirubin [Mass/Vol] 0.6 mg/dL Normal 0.2-1.3 [facility] Comment on above: Order Comment: Speci men Type: BLOOD SPECIMEN Performed By: #### 2 4322-12, #### [facility] CLIA [id number] [address] STATES [place] [facility] Calcium [Mass/Vol] 8.8 mg/dL Normal 8.5-10.2 [facility] Comment on above: Order Comment: Speci men Type: BLOOD SPECIMEN Performed By: #### 2 4322-12, #### [facility] CLIA [id number] [address] [place] [facility] Chloride [Moles/Vol] 110 mmol/L High 97-105 [facility] Comment on above: Order Comment: Speci men Type: BLOOD SPECIMEN Performed By: #### 2 4322-12, #### [facility] CLIA [id number] [address] [place] CO2 [Moles/Vol] 23 mmol/L Normal 22-30 [facility] Comment on above: Order Comment: Speci men Type: BLOOD SPECIMEN Performed By: #### 2 4322-12, #### [facility] CLIA [id number] [address] [place] Creatinine [Mass/Vol] 0.88 mg/dL Normal 0.58-0.96 [facility] Comment on above: Order Comment: Speci men Type: BLOOD SPECIMEN Performed By: #### 2 4323-8, 06112-5 #### [facility] CLIA [id number] 1 [place] [address] [place] GFR/1.73 sq M.predicted MDRD (S/P/Bld) [Vol rate/Area] mL/min/{1.73_m2} Normal [facility] Comment on above: Order Comment: Speci men Type: BLOOD SPECIMEN Result Comment: >60 eGFR (Estimated GFR) Units of measure: mL/min/1.73 meters squared eGFR is derived from the reexpressed MDRD Study equation using the following parameters: serum creatinine, age, gender and race. The creatinine assay has been calibrated to be traceable to IDMS. An eGFR <60 mL/min/1.73m2 for >3 months is consistent with chronic kidney disease. Refer to KDOQI guidelines for clinical interpretation. In patients with unstable renal function, e.g. those with acute kidney injury, the eGFR may not accurately reflect actual GFR. Performed By: #### 2 4323-8, 65435-8 #### [facility] CLIA [id number] 1 [place] [id number] [place] Glucose [Mass/Vol] 86 mg/dL Normal 74-99 [facility] Comment on above: Order Comment: Speci men Type: BLOOD SPECIMEN Result Comment: The [place] [employer] (ADA) provides guidance for cutoff values for fasting glucose and random glucose. The ADA defines fasting as no caloric intake for at least 8 hours. Fasting plasma glucose results between 100 to 125 mg/dL indicate increased risk for diabetes (prediabetes). Fasting plasma glucose results greater than or equal to 126 mg/dL meet the criteria for diagnosis of diabetes. In the absence of unequivocal hyperglycemia, results should be confirmed by repeat testing. In a patient with classic symptoms of hyperglycemia or hyperglycemic crisis, random plasma glucose results greater than or equal to 200 mg/dL meet the criteria for diagnosis of diabetes. Reference: Standards of Medical Care in Diabetes 2016, [place] [employer]. Diabetes Care. 2016.39(Suppl 1). Performed By: #### 2 4323-8, #### [facility] CLIA [id number] [address] STATES [facility] Potassium [Moles/Vol] 4.0 mmol/L Normal 3.7-5.1 [facility] Comment on above: Order Comment: Speci men Type: BLOOD SPECIMEN Performed By: #### 2 8, #### [facility] CLIA [id number] [address] Protein [Mass/Vol] 5.6 g/dL Low 6.3-8.0 [facility] Comment on above: Order Comment: Speci men Type: BLOOD SPECIMEN Performed By: #### 2 8, #### [facility] CLIA [id number] [address] Sodium [Moles/Vol] 141 mmol/L Normal 136-144 [facility] Comment on above: Order Comment: Speci men Type: BLOOD SPECIMEN Performed By: #### 2 4322-12, #### [facility] CLIA [id number] [address] Urea nitrogen [Mass/Vol] 14 mg/dL Normal 7-21 [facility] Comment on above: Order Comment: Speci men Type: BLOOD SPECIMEN Performed By: #### 2 8, #### [facility] CLIA [id number] [address] Magnesium SerPl-mCncon 05-20 Magnesium [Mass/Vol] 1.8 mg/dL Normal 1.7-2.3 [facility] Comment on above: Order Comment: Speci men Type: BLOOD SPECIMEN Performed By: #### 2 4328, 00664-0 #### [facility] CLIA [id number] [address] PT panel Coag (PPP)on 2021 INR Coag (PPP) [Relative time] 1.3 {INR} Normal 0.9-1.3 [facility] Comment on above: Order Comment: Speci men Type: BLOOD SPECIMEN Result Comment: Amita min K Antagonist (VKA) Therapeutic Range: INR 2 to 3 (Target INR of 2.5) Note: For patients treated with VKA drugs, such as warfarin, the [place] [employer] 2012 Guideline recommends a therapeutic INR range of 2 to 3 (target INR of 2.5). This recommendation includes high-risk patients with antiphospholipid syndrome with previous arterial or venous thromboembolism, current-generation mechanical or bioprosthetic aortic heart valve replacement. Note: Patients with mechanical aortic valve replacement and additional risk factors for thromboembolic events (atrial fibrillation, previous thromboembolism, LV dysfunction, hypercoagulable conditions) or an older generation mechanical AVR (i.e., ball in-Cage) or any mechanical MVR should have a INR therapeutic range of 2.5 to 3.5 (target INR of 3). Nathanael GH, et al. Chest 2012, 141:7S-47S [place] RA, et al. [facility] 2017, 70: 252-289 Performed By: #### 3 4528-0 #### [facility] CLIA [id number] [address] [place] PT Coag (PPP) [Time] 14.6 s High 9.7-13.0 [facility] Comment on above: Order Comment: Speci men Type: BLOOD SPECIMEN Performed By: #### 3 4528-0 #### [facility] CLIA [id number] 1 [place] [address] [place] Basic metabolic 2000 panelon 05-19-2021 Anion gap [Moles/Vol] 8 mmol/L Low 9-18 [facility] Comment on above: Order Comment: Speci men Type: BLOOD SPECIMEN Performed By: #### 2 4321-2, 86794-6 #### [facility] CLIA [id number] [address] [place] Calcium [Mass/Vol] 8.4 mg/dL Low 8.5-10.2 [facility] Comment on above: Order Comment: Speci men Type: BLOOD SPECIMEN Performed By: #### 2 2, #### [facility] CLIA [id number] [address] Chloride [Moles/Vol] 110 mmol/L High 97-105 [facility] Comment on above: Order Comment: Speci men Type: BLOOD SPECIMEN Performed By: #### 2 4320-06, #### [facility] CLIA [id number] [address] CO2 [Moles/Vol] 22 mmol/L Normal 22-30 [facility] Comment on above: Order Comment: Speci men Type: BLOOD SPECIMEN Performed By: #### 2 4320-06, #### [facility] CLIA [id number] [address] Creatinine [Mass/Vol] 0.84 mg/dL Normal 0.58-0.96 [facility] Comment on above: Order Comment: Speci men Type: BLOOD SPECIMEN Performed By: #### 2 4320-06, #### [facility] CLIA [id number] [address] GFR/1.73 sq M.predicted MDRD (S/P/Bld) [Vol rate/Area] mL/min/{1.73_m2} Normal [facility] Comment on above: Order Comment: Speci men Type: BLOOD SPECIMEN Result Comment: >60 eGFR (Estimated GFR) Units of measure: mL/min/1.73 meters squared eGFR is derived from the reexpressed MDRD Study equation using the following parameters: serum creatinine, age, gender and race. The creatinine assay has been calibrated to be traceable to IDMS. An eGFR <60 mL/min/1.73m2 for >3 months is consistent with chronic kidney disease. Refer to KDOQI guidelines for clinical interpretation. In patients with unstable renal function, e.g. those with acute kidney injury, the eGFR may not accurately reflect actual GFR. Performed By: #### 2 #### [facility] CLIA [id number] 1 [place] [address] [place] Glucose [Mass/Vol] 83 mg/dL Normal 74-99 [facility] Comment on above: Order Comment: Speci men Type: BLOOD SPECIMEN Result Comment: The [place] [employer] (ADA) provides guidance for cutoff values for fasting glucose and random glucose. The ADA defines fasting as no caloric intake for at least 8 hours. Fasting plasma glucose results between 100 to 125 mg/dL indicate increased risk for diabetes (prediabetes). Fasting plasma glucose results greater than or equal to 126 mg/dL meet the criteria for diagnosis of diabetes. In the absence of unequivocal hyperglycemia, results should be confirmed by repeat testing. In a patient with classic symptoms of hyperglycemia or hyperglycemic crisis, random plasma glucose results greater than or equal to 200 mg/dL meet the criteria for diagnosis of diabetes. Reference: Standards of Medical Care in Diabetes 2016, [place] [employer]. Diabetes Care. 2016.39(Suppl 1). Performed By: #### 2 #### [facility] CLIA [id number] [address] [place] Potassium [Moles/Vol] 3.9 mmol/L Normal 3.7-5.1 [facility] Comment on above: Order Comment: Speci men Type: BLOOD SPECIMEN Performed By: #### 2 #### [facility] CLIA [id number] [address] [place] Sodium [Moles/Vol] 140 mmol/L Normal 136-144 [facility] [facility] Comment on above: Order Comment: Speci men Type: BLOOD SPECIMEN Performed By: #### 2 #### [facility] CLIA [id number] [address] [place] Urea nitrogen [Mass/Vol] 16 mg/dL Normal 7-21 [facility] Comment on above: Order Comment: Speci men Type: BLOOD SPECIMEN Performed By: #### 2 #### [facility] CLIA [id number] [address] CBC panel Auto (Bld)on 05-19 Erythrocyte distribution width (RBC) [Ratio] 12.9 % Normal 11.5-15.0 [facility] Comment on above: Order Comment: Speci men Type: BLOOD SPECIMEN Performed By: #### 5 8410-2 #### [facility] CLIA [id number] [address] Hematocrit (Bld) [Volume fraction] 36.8 % Normal 36.0-46.0 [facility] Comment on above: Order Comment: Speci men Type: BLOOD SPECIMEN Performed By: #### 5 8410-2 #### [facility] CLIA [id number] [address] Hemoglobin (Bld) [Mass/Vol] 12.2 g/dL Normal 11.5-15.5 [facility] Comment on above: Order Comment: Speci men Type: BLOOD SPECIMEN Performed By: #### 5 8410-2 #### [facility] CLIA [id number] [address] MCH (RBC) [Entitic mass] 30.4 pg Normal 26.0-34.0 [facility] Comment on above: Order Comment: Speci men Type: BLOOD SPECIMEN Performed By: #### 5 8410-2 #### [facility] CLIA [id number] [address] MCHC (RBC) [Mass/Vol] 33.2 g/dL Normal 30.5-36.0 [facility] Comment on above: Order Comment: Speci men Type: BLOOD SPECIMEN Performed By: #### 5 8410-2 #### [facility] CLIA [id number] [address] MCV (RBC) [Entitic vol] 91.8 fL Normal 80.0-100.[address] [place] Comment on above: Order Comment: Speci men Type: BLOOD SPECIMEN Performed By: #### 5 8410-2 #### [facility] CLIA [id number] [address] Nucleated RBC (Bld) [#/Vol] 10*3/uL Normal <0.01 [facility] Comment on above: Order Comment: Speci men Type: BLOOD SPECIMEN Performed By: #### 5 8410-2 #### [facility] CLIA [id number] [address] Platelet mean volume (Bld) [Entitic vol] 8.6 fL Low 9.0-12.7 [facility] Comment on above: Order Comment: Speci men Type: BLOOD SPECIMEN Performed By: #### 5 8410-2 #### [facility] CLIA [id number] [address] Platelets (Bld) [#/Vol] 150 10*3/uL Normal 150-400 [facility] Comment on above: Order Comment: Speci men Type: BLOOD SPECIMEN Performed By: #### 5 8410-2 #### [facility] CLIA [id number] [address] RBC (Bld) [#/Vol] 4.01 10*6/uL Normal 3.90-5.20 [facility] Comment on above: Order Comment: Speci men Type: BLOOD SPECIMEN Performed By: #### 5 8410-2 #### [facility] CLIA [id number] [address] WBC (Bld) [#/Vol] 5.46 10*3/uL Normal 3.70-11.00 [facility] Comment on above: Order Comment: Speci men Type: BLOOD SPECIMEN Performed By: #### 5 8410-2 #### [facility] CLIA [id number] [address] CONSULTon 05-19-2021 CONSULT HNO ID: [id number] Author: Luisito Murphy MD Service: Electrophysiology Author Type: Physician Type: Consults Filed: 05/19/2021 11:42 AM Note Text: CONSULT NOTE SERVICE DATE: 05/19/2021 SERVICE TIME: 11:33 AM Physician Consult Consult performed by: Luisito Murphy MD Consult ordered by: Dewayne Cifuentes II, MD Reason for consult: Atrial fibrillation. PRIMARY CARE PHYSICIAN: Loree Vallecillo MD Subjective HPI 80-year-old female known to Dr. Acosta with history of mitral valve replacement and atrial fibrillation with difficult to control ventricular rate resulting in multiple hospital admissions. Several antiarrhythmics, including amiodarone, were either not effective or not tolerated. She was admitted with [facility] with yet another episode of atrial fibrillation with RVR and transferred to [facility] for consideration of pacemaker implantation and AV node ablation. She is anticoagulated with warfarin. Ms. Mathew reports feeling tired and having irregular heartbeat, but less so today than yesterday. Her ECG shows what is likely sinus rhythm at 94 bpm, although atypical atrial flutter with 2: 1 conduction cannot be entirely excluded. Overnight telemetry is suggestive of the same. INR 2.6 today. Echocardiogram in September 2020 showed preserved LV systolic function. Apparently the patient had another echo at [place] very recently. FUNCTIONAL STATUS: Independent PAST MEDICAL HISTORY Diagnosis Date - Atrial fibrillation (HCC) - Atrial fibrillation with RVR (HCC) - Breast mass, right - H/O maze procedure 04/16/2018 maze procedure with left and right atrial lesion sets (radiofrequency clamp and cryo) - H/O mitral valve replacement 04/16/[address] 29-mm [facility] Epic bioprosthesis - IBS (irritable bowel syndrome) - Lung nodules 06/03/2018 - Mitral valve regurgitation - Mitral valve stenosis - Prolonged QT interval - Pulmonary HTN (HCC) - S/P left atrial appendage ligation 04/16/2018 exclusion of left atrial appendage with a 45 mm atrial clip. - Torsades de pointes (HCC) - Tricuspid regurgitation - Ventricular tachycardia (HCC) PAST SURGICAL HISTORY Procedure Laterality Date - ATRIAL APPENDAGE LIGATION 04/16/2018 exclusion of left atrial appendage with a 45 mm atrial clip. - BREAST BIOPSY - CARDIOVERSION 05/27/2018 - CARDIOVERSION 01/01/2021 - CHEST X-RAY 12/31/2020 - CHOLECYSTECTOMY HX 10/02/2011 - ECHO TRANSESOPHAGEAL 05/27/2018 - EKG 01/01/2021 - HYSTERECTOMY HX MARYELLEN/BLO - LEG SURGERY [...] uncle - Stroke Maternal Grandfather Social History Tobacco Use - Smoking status: Never Smoker - Smokeless tobacco: Never Used Vaping Use - Vaping Use: Never used Substance Use Topics - Alcohol use: No - Drug use: No flecainide (TAMBOCOR) 50 mg tablet, Take 1 tablet by mouth as needed for up to 16 doses. If you experience an episode of palpitations that is persistent for more than 5 to 10 minutes take 1 to 2 tablets of the 50 mg strength. If you have any additional symptoms seek medical attention. If the episode last for an hour you can take a third tablet. Do not take more than 3 tablets in 24 hours, Disp: 16 tablet, Rfl: 1, 05/17/2021 at Unknown time ipratropium bromide (ATROVENT) 42 mcg (0.06 %) nasal spray, SPRAY 2 SPRAYS INTO EACH NOSTRIL TWICE A DAY, Disp: , Rfl: , 05/17/2021 at Unknown time citalopram hydrobromide (CELEXA) 10 mg tablet, , Disp: , Rfl: , 05/18/2021 at Unknown time warfarin (COUMADIN) 1 mg tablet, Take 1 tablet by mouth daily as directed., Disp: 100 tablet, Rfl: 1, 05/18/2021 at Unknown time simvastatin (ZOCOR) 10 mg tablet, Take 10 mg by mouth daily at bedtime., Disp: , Rfl: , 05/18/2021 at Unknown time metoprolol tartrate, short acting, (LOPRESSOR) 25 mg tablet, Take 1 tablet by mouth every 12 hours., Disp: , Rfl: , 05/18/2021 at 2000 ascorbic acid, vitamin C, (VITAMIN C) 500 mg tablet, Take 1 tablet by mouth twice daily., Disp: , Rfl: , 05/17/2021 at Unknown time pramipexole (MIRAPEX) 0.25 mg tablet, Take 1 tablet by mouth daily at bedtime., Disp: 30 tablet, Rfl: 1, 05/18/2021 at 2000 cholestyramine (QUESTRAN) 4 gram packet, Take 1 Packet by mouth once daily., Disp: 30 Packet, Rfl: 0, 05/18/2021 at Unknown time Cyanocobalamin (VITAMIN B-12) 1,000 mcg subl, Dissolve 1 tablet under the tongue once daily., Disp: , Rfl: , 05/17/2021 at Unknown time calcium carbonate (CALTRATE) 600 mg calcium (1,500 mg) tab, Take 600 mg by amanda (more content not included)... Normal [facility] HISTORY PHYSICALon HISTORY PHYSICAL HNO ID: [id number] Author: Dewayne Cifuentes II, MD Service: Hospital Medicine Author Type: Physician Type: HANDP Filed: 05/19/2021 2:07 AM Note Text: DEPARTMENT OF HOSPITAL MEDICINE HISTORY AND PHYSICAL EXAM SERVICE DATE: 05/18/2021 SERVICE TIME: 11:39 PM Primary Care Physician: Loree Vallecillo MD NIGHT AND WEEKEND COVERAGE: From 7am - 7pm, please call Sound attending After 7pm, please call cross cover pager #[phone] Subjective CHIEF COMPLAINT: Rapid heartrate and lightheadedness HPI: This is a 80 year old female mated from the [place] for refractory A. fib with RVR. Patient states that she was admitted to [place] on Thursday due to rapid heart rate and dizziness. The patient has an extensive history with this problem starting around December 2019. She has been admitted multiple times and has been managed conservatively with metoprolo. Since the first of the year she has been seen multiple times at [place] due to recurrent bouts of A. fib with RVR. During the previous admission it was to her she had a heart cath and an echo, and she was told both were unchanged. She was discharged and instructed to take flecainide when her heart races. When this failed on Thursday she decided to go back to [place]. Upon presentation to [place] on Thursday she was found to be hypotensive/cardiogen ic shock with a heart rate above 200s. Adenosine 6, 12, 12 was attempted without effect. Several attempts at electrical cardioversion were also made, without success. The patient was placed on an amio drip with gradual improvement of tachycardia. Decision was made the following day to transfer the patient to [facility] for AV karin ablation and pacer placement. Upon arrival here, patient denied having any chest pain, awareness of palpitations, shortness of breath, cough, lightheadedness or any other active complaints. REVIEW OF SYSTEM: All ROS are negative except those noted in HPI All pertinent labs and imaging reviewed. Pertinent medical records reviewed. ASSESSMENT AND PLAN: 1) A.Fib/RVR - Other CV: Hx V.Tach/Torsades, s/p Maze procedure * continue metoprolol, warfarin, simvastatin - currently HR 90's - tele - EP consult for AV karin ablation and pacer VTE Prophylaxis: Patient is already anti-coagulated. Plan of care discussed with: Patient Code status: FULL Automated System Data and Physical Exam Below ##################### ##################### ############ ##################### ##################### ############ ##################### ##################### ############ PAST MEDICAL HISTORY Diagnosis Date - Atrial fibrillation (HCC) - Atrial fibrillation with RVR (HCC) - Breast mass, right - H/O maze procedure 04/16/2018 maze procedure with left and right atrial lesion sets (radiofrequency clamp and cryo) - H/O mitral valve replacement 04/16/[address] 29-mm [facility] Epic bioprosthesis - IBS (irritable bowel syndrome) - Lung nodules 06/03/2018 - Mitral valve regurgitation - Mitral valve stenosis - Prolonged QT interval - Pulmonary HTN (HCC) - S/P left atrial appendage ligation 04/16/2018 exclusion of left atrial appendage with a 45 mm atrial clip. - Torsades de pointes (HCC) - Tricuspid regurgitation - Ventricular tachycardia (HCC) PAST SURGICAL HISTORY Procedure Laterality Date - ATRIAL APPENDAGE LIGATION 04/16/2018 exclusion of left atrial appendage with a 45 mm atrial clip. - BREAST BIOPSY - CARDIOVERSION 05/27/2018 - CARDIOVERSION 01/01/2021 - CHEST X-RAY 12/31/2020 - CHOLECYSTECTOMY HX 10/02/2011 - ECHO TRANSESOPHAGEAL 05/27/2018 - EKG 01/01/2021 - HYSTERECTOMY HX MARYELLEN/BLO - LEG SURGERY HX - MAZE PROCEDURE 04/16/2018 maze procedure with left and right atrial lesion sets (radiofrequency clamp and cryo) - PICC LINE INSERTION (PICC TEAM) ([place]) 04/21/2018 - REPLACEMENT OF MITRAL VALVE 04/16/2018 29-mm [facility] [facility] Epic bioprosthesis FAMILY HISTORY Problem Relation Age of Onset - Breast Cancer Mother stage III - Coronary Artery Disease Mother mother, uncle - Cancer Paternal Grandfather - Colon Cancer Maternal Grandmother - Diabetes Other uncle - Stroke Maternal Grandfather Social History Tobacco Use - Smoking status: Never Smoker - Smokeless tobacco: Never Used Vaping Use - Vaping Use: Never used Substance Use Topics - Alcohol use: No - Drug use: No HOME MEDICATIONS: Prior to Admission Medications Prescriptions Last Dose Informant Patient Reported? Taking? Biotin-Silicon Rbmr-S-Wrgqwioa 5,000 mcg-100 mg- 50 mg tab 05/17/2021 at Unknown time Yes Yes Sig: Take 1 tablet by mouth once daily. Cholecalciferol, Vitamin D3, 1,000 unit cap 05/17/2021 at Unknown time Yes Yes Sig: Take 1,000 Units by mouth once daily. Cyanocobalamin (VITAMIN B-12) 1,000 mcg subl 05/17/2021 at Unknown time Yes Yes Sig: Dissolve 1 tablet under the tongue once daily. alendronate (FOSAMAX) 70 mg tablet 05/12/2021 No No Sig: Take 1 (more content not included)... Normal [facility] Magnesium SerPl-mCncon 05-19 Magnesium [Mass/Vol] 1.8 mg/dL Normal 1.7-2.3 [facility] Comment on above: Order Comment: Speci men Type: BLOOD SPECIMEN Performed By: #### 2 4321-2, 80740-2 ####[facility] [id number] [place] [address] [place] PT panel Coag (PPP)on 2021 INR Coag (PPP) [Relative time] 2.6 {INR} High 0.9-1.3 [facility] Comment on above: Order Comment: Speci men Type: BLOOD SPECIMEN Result Comment: Amita min K Antagonist (VKA) Therapeutic Range: INR 2 to 3 (Target INR of 2.5) Note: For patients treated with VKA drugs, such as warfarin, the [place] [employer] 2012 Guideline recommends a therapeutic INR range of 2 to 3 (target INR of 2.5). This recommendation includes high-risk patients with antiphospholipid syndrome with previous arterial or venous thromboembolism, current-generation mechanical or bioprosthetic aortic heart valve replacement. Note: Patients with mechanical aortic valve replacement and additional risk factors for thromboembolic events (atrial fibrillation, previous thromboembolism, LV dysfunction, hypercoagulable conditions) or an older generation mechanical AVR (i.e., ball in-Cage) or any mechanical MVR should have a INR therapeutic range of 2.5 to 3.5 (target INR of 3). Juanyatt GH, et al. Chest 2012, 141:7S-47S Marbella RA, et al. [facility] 2017, 70: 252-289 Performed By: #### 3 4528-0 ####[facility] [id number] [place] [address] [place] PT Coag (PPP) [Time] 27.7 s High 9.7-13.0 [facility] Comment on above: Order Comment: Speci men Type: BLOOD SPECIMEN Performed By: #### 3 4528-0 ####[facility] [id number] [place] [id number] [place] Absolute lymphocyte counton 05-18-2021 Lymphocytes Auto (Unsp spec) [#/Vol] 1.09 10*3/uL 0.83-4.51 [facility] Work Phone: Basophil percentageon 2021 Basophils/100 WBC (Bld) 0.9 % 0-[address] [facility] Work Phone: Eosinophils/100 WBC (Bld) 1.1 % 0-5 [facility] Work Phone: Neutrophils (Bld) [#/Vol] 3.8 10*3/uL 2.0-7.7 [facility] Work Phone: Neutrophils/100 WBC (Bld) 68.5 % 47-70 [facility] Work Phone: WBC (Bld) [#/Vol] 5.6 10*3/uL 4.4-11.0 [facility] Work Phone: Bilirubin [Mass/Vol] 0.40 mg/dL 0.20-1.00 [facility] Work Phone: Comment on above: For patients on eltr ombopag therapy, use of Dimension [place] TBIL is not recommended. Chloride [Moles/Vol] 111 mmol/L 98-107 [facility] Work Phone: Glucose [Mass/Vol] 118 mg/dL 74-106 [facility] Work Phone: Comment on above: Fasting Glucose resu lt from 100 to 125 mg/dL suggests IMPAIRED HOMEOSTASIS per A.D.A. criteria. Potassium [Moles/Vol] 3.7 mmol/L 3.5-5.[address] [facility] Work Phone: [phone] Protein [Mass/Vol] 6.6 g/dL 6.4-8.2 [facility] Work Phone: Sodium [Moles/Vol] 141 mmol/L 136-145 [facility] Work Phone: Blood erythrocytes count (nu mber/volume)on 05-18-2021 RBC (Bld) [#/Vol] 3.89 10*6/uL 4.2-5.4 [facility] Work Phone: [phone] Blood hemoglobin measurement (mass/volume)on 05-18-2021 Hemoglobin (Bld) [Mass/Vol] 11.9 g/dL 12.0-15.0 [facility] Work Phone: Blood lymphocytes/100 leukoc yteson 05-18-2021 Lymphocytes/100 WBC (Bld) 19.6 % 19-41 [facility] Work Phone: Blood monocytes/100 leukocyt eson 05-18-2021 Monocytes/100 WBC (Bld) 9.5 % 0-[address] [facility] Work Phone: Blood platelet mean volumeon 05-18-2021 Platelet mean volume (Bld) [Entitic vol] 8.5 fL 6.2-12.0 [facility] Work Phone: Determination of erythrocyte mean corpuscular volume (MCV)on 05-18-2021 MCV (RBC) [Entitic vol] 92.3 fL 81-[address] [facility] Work Phone: Hematocrit Auto (Bld) [Volum e fraction]on 05-18-2021 Hematocrit (Bld) [Volume fraction] 35.9 % 37-47 [facility] Work Phone: INR in Blood by Coagulation assayon 05-18-2021 INR Coag (Bld) [Relative time] 2.3 {INR} [facility] Work Phone: Laboratory - Chemistry and C hemistry - challengeon 05-18-2021 ALP [Catalytic activity/Vol] 99 U/L 45-117 [facility] Work Phone: ALT [Catalytic activity/Vol] 56 U/L 13-56 [facility] Work Phone: CO2 [Moles/Vol] 22.0 mmol/L 21.0-32.0 [facility] Work Phone: Globulin (S) [Mass/Vol] 3.4 g/dL 2.2-4.[address] [facility] Work Phone: Urea nitrogen/Creatinine [Mass ratio] 26.9 mg/mg 10-20 [facility] Work Phone: Magnesium [Mass/Vol] 2.3 mg/dL 1.6-2.6 [facility] Work Phone: Laboratory - Coagulationon 0 05-18-2021 aPTT Coag (Bld) [Time] 39.7 s 24.1-36.2 [facility] Work Phone: PT Coag (PPP) [Time] 24.7 s 11.7-14.9 [facility] Work Phone: Laboratory - Hematology and Cell countson 05-18-2021 Erythrocyte distribution width (RBC) [Entitic vol] 43.6 fL 35.1-43.9 [facility] Work Phone: Erythrocyte distribution width (RBC) [Ratio] 13.0 % 11.6-14.6 [facility] Work Phone: [phone] Immature granulocytes/100 WBC (Bld) 0.400 % 0.0-0.9 [facility] Work Phone: Comment on above: IG% - Immature Granu locytes (promyelocytes, myelocytes and metamyelocytes) > 1% indicates that a LEFT SHIFT is Present. MCH (RBC) [Entitic mass] 30.6 pg 27.0-32.0 [facility] Work Phone: Nucleated RBC/100 WBC (Bld) [Ratio] 0 % 0-5 [facility] Work Phone: MCHC Auto (RBC) [Mass/Vol]on 05-18-2021 MCHC (RBC) [Mass/Vol] 33.1 g/dL 32-[address] [facility] Work Phone: No Panel Informationon 05-18 Troponin I High Sensitivity 4476 pg/mL 3.0-54.0 [facility] Work Phone: Comment on above: Critical Result(s) C alled at: 07:10:01 05/18/2021 by: Sherrell Webb. Results read back by same. Please Note: New Test Units and Gender Specific Reference Ranges. For more information see Policy Stat Procedure [place] High Sensitivity Troponin (TNIH) and attachments. Estimated Creatinine Clearance Calc 36.67 ml/min [facility] Work Phone: Estimated GFR (MDRD) Amer 92 mL/min >60 [facility] Work Phone: Comment on above: GFR Calc Estimated GFR (MDRD) Non-Af Amer 76 mL/min >60 [facility] Work Phone: Comment on above: Non- GFR Calc SARS-CoV-2 Antigen (Rapid) [facility] Work Phone: [phone] Thyroid Stimulating Hormone (TSH) 0.99 uIU/mL 0.358-3.74 [facility] Work Phone: [phone] Platelets bldon 05-18-2021 Platelets (Bld) [#/Vol] 138 10*3/uL 150-450 [facility] Work Phone: [phone] Serum or plasma albumin lashawn urement (mass/volume)on 05-18-2021 Albumin [Mass/Vol] 3.2 g/dL 3.2-5.0 [facility] Work Phone: Serum or plasma albumin/glob ulin mass ratioon 05-18-2021 Albumin/Globulin [Mass ratio] 0.9 {ratio} 0.9-2.4 [facility] Work Phone: [phone] Serum or plasma calcium lashawn urement (mass/volume)on 05-18-2021 Calcium [Mass/Vol] 7.9 mg/dL 8.5-10.1 [facility] Work Phone: [phone] Serum or plasma creatinine m easurement (mass/volume)on 05-18-2021 Creatinine [Mass/Vol] 0.78 mg/dL 0.55-1.[address] [facility] Work Phone: Comment on above: The validity of the calculated GFR & GFRAA in patients over 70 years has not been determined. Clinical correlation is essential. Serum or plasma urea nitroge n measurement (mass/volume)on 05-18-2021 Urea nitrogen [Mass/Vol] 21 mg/dL 7-18 [facility] Work Phone: [phone] Thin prep Papanicolaou smear with manual screeningon 05-18-2021 Thin prep Papanicolaou smear with manual screening 40 U/L 15-37 [facility] Work Phone: Thin prep Papanicolaou smear with manual screening 8 5-15 [facility] Work Phone: Absolute lymphocyte counton 05-09-2021 Lymphocytes Auto (Unsp spec) [#/Vol] 1.06 10*3/uL 0.83-4.51 [facility] Work Phone: Basophil percentageon 2021 Basophils/100 WBC (Bld) 1.5 % 0-[address] [facility] Work Phone: Eosinophils/100 WBC (Bld) 4.4 % 0-5 [facility] Work Phone: Neutrophils (Bld) [#/Vol] 2.9 10*3/uL 2.0-7.7 [facility] Work Phone: Neutrophils/100 WBC (Bld) 61.2 % 47-70 [facility] Work Phone: WBC (Bld) [#/Vol] 4.8 10*3/uL 4.4-11.0 [facility] Work Phone: Bilirubin [Mass/Vol] 0.90 mg/dL 0.20-1.00 [facility] Work Phone: Comment on above: For patients on eltr ombopag therapy, use of Dimension [place] TBIL is not recommended. Chloride [Moles/Vol] 110 mmol/L 98-107 [facility] Work Phone: Glucose [Mass/Vol] 77 mg/dL 74-106 [facility] Work Phone: Comment on above: Please note revised GLUCOSE reference range effective 2017. Potassium [Moles/Vol] 4.3 mmol/L 3.5-5.[address] [facility] Work Phone: Protein [Mass/Vol] 7.0 g/dL 6.4-8.2 [facility] Work Phone: Sodium [Moles/Vol] 138 mmol/L 136-145 [facility] Work Phone: Blood erythrocytes count (nu mber/volume)on 05-09-2021 RBC (Bld) [#/Vol] 4.04 10*6/uL 4.2-5.4 [facility] Work Phone: Blood hemoglobin measurement (mass/volume)on 05-09-2021 Hemoglobin (Bld) [Mass/Vol] 12.5 g/dL 12.0-15.0 [facility] Work Phone: Blood lymphocytes/100 leukoc yteson 05-09-2021 Lymphocytes/100 WBC (Bld) 22.2 % 19-41 [facility] Work Phone: Blood monocytes/100 leukocyt eson 05-09-2021 Monocytes/100 WBC (Bld) 10.5 % 0-[address] [facility] Work Phone: Blood platelet mean volumeon 05-09-2021 Platelet mean volume (Bld) [Entitic vol] 8.5 fL 6.2-12.0 [facility] Work Phone: Determination of erythrocyte mean corpuscular volume (MCV)on 05-09-2021 MCV (RBC) [Entitic vol] 89.6 fL 81-[address] [facility] Work Phone: Hematocrit Auto (Bld) [Volum e fraction]on 05-09-2021 Hematocrit (Bld) [Volume fraction] 36.2 % 37-47 [facility] Work Phone: INR in Blood by Coagulation assayon 05-09-2021 INR Coag (Bld) [Relative time] 1.4 {INR} [facility] Work Phone: Laboratory - Chemistry and C hemistry - challengeon 05-09-2021 ALP [Catalytic activity/Vol] 69 U/L 45-117 [facility] Work Phone: ALT [Catalytic activity/Vol] 32 U/L 13-56 [facility] Work Phone: [phone] CO2 [Moles/Vol] 21.0 mmol/L 21.0-32.0 [facility] Work Phone: [phone] Globulin (S) [Mass/Vol] 4.2 g/dL 2.2-4.[address] [facility] Work Phone: [phone] Urea nitrogen/Creatinine [Mass ratio] 26.6 mg/mg 10-20 [facility] Work Phone: [phone] Laboratory - Coagulationon 0 05-09-2021 PT Coag (PPP) [Time] 16.7 s 11.7-14.9 [facility] Work Phone: [phone] Laboratory - Hematology and Cell countson 05-09-2021 Erythrocyte distribution width (RBC) [Entitic vol] 40.2 fL 35.1-43.9 [facility] Work Phone: [phone] Erythrocyte distribution width (RBC) [Ratio] 12.4 % 11.6-14.6 [facility] Work Phone: [phone] Immature granulocytes/100 WBC (Bld) 0.200 % 0.0-0.9 [facility] Work Phone: [phone] Comment on above: IG% - Immature Granu locytes (promyelocytes, myelocytes and metamyelocytes) > 1% indicates that a LEFT SHIFT is Present. MCH (RBC) [Entitic mass] 30.9 pg 27.0-32.0 [facility] Work Phone: [phone] Nucleated RBC/100 WBC (Bld) [Ratio] 0 % 0-5 [facility] Work Phone: [phone] MCHC Auto (RBC) [Mass/Vol]on 05-09-2021 MCHC (RBC) [Mass/Vol] 34.5 g/dL 32-36 [facility] Work Phone: [phone] Panel Informationon 05-09 Estimated Creatinine Clearance Calc 36.67 ml/min [facility] Work Phone: [phone] Estimated GFR (MDRD) Amer 102 mL/min >60 [facility] Work Phone: [phone] Comment on above: GFR Calc Estimated GFR (MDRD) Non-Af Amer 84 mL/min >60 [facility] Work Phone: Comment on above: Non- GFR Calc Platelets bldon 05-09-2021 Platelets (Bld) [#/Vol] 159 10*3/uL 150-450 [facility] Work Phone: [phone] Serum or plasma albumin lashawn urement (mass/volume)on 05-09-2021 Albumin [Mass/Vol] 2.8 g/dL 3.2-5.0 [facility] Work Phone: [phone] Serum or plasma albumin/glob ulin mass ratioon 05-09-2021 Albumin/Globulin [Mass ratio] 0.7 {ratio} 0.9-2.4 [facility] Work Phone: [phone] Serum or plasma calcium lashawn urement (mass/volume)on 05-09-2021 Calcium [Mass/Vol] 8.7 mg/dL 8.5-10.1 [facility] Work Phone: [phone] Serum or plasma creatinine m easurement (mass/volume)on 05-09-2021 Creatinine [Mass/Vol] 0.71 mg/dL 0.55-1.[address] [facility] Work Phone: Comment on above: The validity of the calculated GFR & GFRAA in patients over 70 years has not been determined. Clinical correlation is essential. Serum or plasma urea nitroge n measurement (mass/volume)on 05-09-2021 Urea nitrogen [Mass/Vol] 19 mg/dL 7-18 [facility] Work Phone: [phone] Thin prep Papanicolaou smear with manual screeningon 05-09-2021 Thin prep Papanicolaou smear with manual screening 23 U/L 15-37 [facility] Work Phone: [phone] Thin prep Papanicolaou smear with manual screening 7 5-15 [facility] Work Phone: [phone] Panel Informationon 05-07 Thyroid Stimulating Hormone (TSH) 0.76 uIU/mL 0.358-3.74 [facility] Work Phone: Jose 05-06-2021 CNPN Telephone (AGCARDPOB ) QUINCYGLORIA Merly ([id number]) 1940 F CHT Date Time Provider Department 05/06/21 JEAN-PIERRE PEREZ AGCARDPOKirill During your visit today, we recorded the following information about you: Jean-Pierre Perez MD 05/06/2021 1:20 PM Signed Mellisa/Mart/Albert-receive d a call on mutual patient from [place] ER today that patient was back in the ER again for rapid A. fib which then converted back to sinus rhythm. This is about a third visit for the last week or 2. Her troponin went up to 2000 but she really does not have any known coronary disease and EKG did not show any new changes. They are going to try to get her admitted to [facility] to cardiac telemetry and transfer up here and then they would consult EP service because we really have to do something different with her rhythm. 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 She might even need something like an AV node ablation. The flecainide is simply not effective any longer. If there are no beds here and they end up sending her home, I would asked that she be seen or have further management arranged as soon as possible. There is no EP down in [place] so it really requires EP to manage appear in [place]. Thanks your help on this complex lady. William Murphy MD 05/06/2021 1:36 PM Signed Certainly, if she gets admitted and transferred we will take care of her here, and if not, I will see her in the office very soon. Will keep you posted. Luisito. Allergies As of Date: 05/06/2021 Noted Allergy Reaction ZOLOFT (SERTRALINE) 10/14/2019 14 - Other: See Comments Comments: palpitations Date Reviewed: 03/06/2021 Reviewed by: Desmond Acosta MD - Fully Assessed Reason for Visit: Patient Update [1234] Prescriptions as of 05/08/2021 - flecainide (TAMBOCOR) 50 mg tablet Take 1 tablet by mouth as needed for up to 16 doses. If you experience an episode of palpitations that is persistent for more than 5 to 10 minutes take 1 to 2 tablets of the 50 mg strength. If you have any additional symptoms seek medical attention. If the episode last for an hour you can take a third tablet. Do not take more than 3 tablets in 24 hours - ipratropium bromide (ATROVENT) 42 mcg (0.06 %) nasal spray SPRAY 2 SPRAYS INTO EACH NOSTRIL TWICE A DAY - citalopram hydrobromide (CELEXA) 10 mg tablet - warfarin (COUMADIN) 1 mg tablet Take 1 tablet by mouth daily as directed. - amoxicillin (POLYMOX, AMOXIL) 500 mg capsule 4 capsules by mouth one hour before the dentist - simvastatin (ZOCOR) 10 mg tablet Take 10 mg by mouth daily at bedtime. - metoprolol tartrate, short acting, (LOPRESSOR) 25 mg tablet Take 1 tablet by mouth every 12 hours. - ascorbic acid, vitamin C, (VITAMIN C) 500 mg tablet Take 1 tablet by mouth twice daily. - pramipexole (MIRAPEX) 0.25 mg tablet Take 1 tablet by mouth daily at bedtime. - cholestyramine (QUESTRAN) 4 gram packet Take 1 Packet by mouth once daily. - alendronate (FOSAMAX) 70 mg tablet Take 1 tablet by mouth once each week. - Cyanocobalamin (VITAMIN B-12) 1,000 mcg subl Dissolve 1 tablet under the tongue once daily. - calcium carbonate (CALTRATE) 600 mg calcium (1,500 mg) tab Take 600 mg by mouth once daily. - gabapentin (NEURONTIN) 100 mg capsule Take 200 mg by mouth daily at bedtime. - Biotin-Silicon Bnyh-E-Dimqavca 5,000 mcg-100 mg- 50 mg tab Take 1 tablet by mouth once daily. - Cholecalciferol, Vitamin D3, 1,000 unit cap Take 1,000 Units by mouth once daily. 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] 04/06/2018 04/18/2018 Mitral regurgitation [I34.0] 04/06/2018 04/18/2018 S/P mitral valve replacement with bioprosthetic* 018 S/P Maze operation for atrial fibrillation [Z98*04/18/2018 Hypotension [I95.9] 04/18/2018 S/P left atrial appendage ligation [Z98.890] 04/18/2018 Stress hyperglycemia [R73.9] 04/18/2018 Anemia associated with acute blood loss [D62] 04/18/2018 Leukocytosis [D72.829] 04/18/2018 Malnutrition of mild degree (HCC) [E44.1] 04/21/2018 Prolonged Q-T interval on ECG [R94.31] 05/31/2018 Lung nodules [R91.8] 06/03/2018 Paroxysmal ventricular tachycardia (HCC) [I47.2]06/24/2018 Encounter Status:Closed by JEAN-PIERRE PEREZ on 05/08/21 [facility] CNPN Telephone ([employer] GLORIA MATHEW ([id number]) 1940 F CHT Date Time Provider Department 05/06/21 [facility] During your visit today, we recorded the following information about you: Aniya Shankar RP 05/06/2021 1:16 PM Signed Received an INR of 2.9 from [facility]. Called and spoke with patient. She is currently in the ED for atrial fibrillation. Patient agrees to contact the clinic when she is discharged for follow up. Aniya Shankar [facility] Aniya Shankar [facility] 05/10/2021 10:51 AM Signed Patient remained at [place] through 05/09. Plan was to be transferred to [facility], however, there was no bed available. While at [place], she held warfarin in preparation for a heart cath on 05/09 and will follow up outpatient with Dr. Perez and Dr. Childs. She states she is feeling better today and she denies changes to medication. She will resume warfarin 1mg daily today. Instructed her to go to the lab for INR check in 2 weeks and to contact the clinic should she have any medication changes or procedures scheduled before then. Discussed with patient on the phone who read back instructions and verbalized understanding. Aniya Shankar [facility] Allergies As of Date: 05/06/2021 Noted Allergy Reaction ZOLOFT (SERTRALINE) 10/14/2019 14 - Other: See Comments Comments: palpitations Date Reviewed: 03/06/2021 Reviewed by: Desmond Acosta MD - Fully Assessed Reason for Visit: Coumadin/INR [1207] Visit Diagnoses:senior living current use of 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 [Z79.01] Paroxysmal atrial fibrillation (HCC) [I48.0] Order(s):PROTHROMBIN TIME/PT [SQPT] Order #: [id number] Prescriptions as of 05/10/2021 - flecainide (TAMBOCOR) 50 mg tablet Take 1 tablet by mouth as needed for up to 16 doses. If you experience an episode of palpitations that is persistent for more than 5 to 10 minutes take 1 to 2 tablets of the 50 mg strength. If you have any additional symptoms seek medical attention. If the episode last for an hour you can take a third tablet. Do not take more than 3 tablets in 24 hours - ipratropium bromide (ATROVENT) 42 mcg (0.06 %) nasal spray SPRAY 2 SPRAYS INTO EACH NOSTRIL TWICE A DAY - citalopram hydrobromide (CELEXA) 10 mg tablet - warfarin (COUMADIN) 1 mg tablet Take 1 tablet by mouth daily as directed. - amoxicillin (POLYMOX, AMOXIL) 500 mg capsule 4 capsules by mouth one hour before the dentist - simvastatin (ZOCOR) 10 mg tablet Take 10 mg by mouth daily at bedtime. - metoprolol tartrate, short acting, (LOPRESSOR) 25 mg tablet Take 1 tablet by mouth every 12 hours. - ascorbic acid, vitamin C, (VITAMIN C) 500 mg tablet Take 1 tablet by mouth twice daily. - pramipexole (MIRAPEX) 0.25 mg tablet Take 1 tablet by mouth daily at bedtime. - cholestyramine (QUESTRAN) 4 gram packet Take 1 Packet by mouth once daily. - alendronate (FOSAMAX) 70 mg tablet Take 1 tablet by mouth once each week. - Cyanocobalamin (VITAMIN B-12) 1,000 mcg subl Dissolve 1 tablet under the tongue once daily. - calcium carbonate (CALTRATE) 600 mg calcium (1,500 mg) tab Take 600 mg by mouth once daily. - gabapentin (NEURONTIN) 100 mg capsule Take 200 mg by mouth daily at bedtime. - Biotin-Silicon Iadz-W-Mluuujof 5,000 mcg-100 mg- 50 mg tab Take 1 tablet by mouth once daily. - Cholecalciferol, Vitamin D3, 1,000 unit cap Take 1,000 Units by mouth once daily. 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] 04/06/2018 04/18/2018 Mitral regurgitation [I34.0] 04/06/2018 04/18/2018 S/P mitral valve replacement with bioprosthetic* 018 S/P Maze operation for atrial fibrillation [Z98*04/18/2018 Hypotension [I95.9] 04/18/2018 S/P left atrial appendage ligation [Z98.890] 04/18/2018 Stress hyperglycemia [R73.9] 04/18/2018 Anemia associated with acute blood loss [D62] 04/18/2018 Leukocytosis [D72.829] 04/18/2018 Malnutrition of mild degree (HCC) [E44.1] 04/21/2018 Prolonged Q-T interval on ECG [R94.31] 05/31/2018 Lung nodules [R91.8] 06/03/2018 Paroxysmal ventricular tachycardia (HCC) [I47.2]06/24/2018 Encounter Status:Closed by ANIYA SHANKAR on 05/10/21 [facility] CNPN Telephone (AGCARDPOB ) GLORIA MATHEW ([id number]) 1940 F CHT Date Time Provider Department 05/06/21 DESMOND ACOSTA During your visit today, we recorded the following information about you: Mariah Hou RN 05/06/2021 9:42 AM Signed Pt calls to update out office that she experienced afib last night (HR 188 bpm). Pt took tambocor 100mg at home but did not convert. She went to [facility] ER. She received an additional tambocor 200mg. She did eventually convert and was sent home. Pt reports she feels well this morning with a HR of 60 bpm. Mariah Hou RN Allergies As of Date: 05/06/2021 Noted Allergy Reaction ZOLOFT (SERTRALINE) 10/14/2019 14 - Other: See Comments Comments: palpitations Date Reviewed: 03/06/2021 Reviewed by: Desmond Acosta MD - Fully Assessed Reason for Visit: Patient Update [1234] Prescriptions as of 06/18/2021 - acetaminophen (TYLENOL) 325 mg tablet Take 2 tablets by mouth every 6 hours as needed for pain. - metoprolol tartrate, short acting, (LOPRESSOR) 50 mg tablet Take 1 tablet by mouth every 12 hours. - gabapentin (NEURONTIN) 300 mg capsule Take 300 mg by mouth twice daily. Can up titrate to max daily dose of 1,200 mg - fexofenadine (BRIGITTE) 180 mg tablet Take 180 mg by mouth daily at bedtime. - ipratropium bromide (ATROVENT) 42 mcg (0.06 %) nasal spray SPRAY 2 SPRAYS INTO EACH NOSTRIL TWICE A DAY - citalopram hydrobromide (CELEXA) 10 mg tablet - warfarin (COUMADIN) 1 mg tablet Take 1 tablet by mouth daily as directed. - simvastatin (ZOCOR) 10 mg tablet Take 10 mg by mouth daily at bedtime. - ascorbic acid, vitamin C, (VITAMIN C) 500 mg tablet Take 1 tablet by mouth twice daily. - pramipexole (MIRAPEX) 0.25 mg tablet Take 1 tablet by mouth daily at bedtime. - cholestyramine (QUESTRAN) 4 gram packet Take 1 Packet by mouth once daily. - alendronate (FOSAMAX) 70 mg tablet Take 1 tablet by mouth once each week. - Cyanocobalamin (VITAMIN B-12) 1,000 mcg subl Dissolve 1 tablet under the tongue once daily. - calcium carbonate (CALTRATE) 600 mg calcium (1,500 mg) tab Take 600 mg by mouth once daily. - Biotin-Silicon Xxjl-R-Mtafptzj 5,000 mcg-100 mg- 50 mg tab Take 1 tablet by mouth once daily. - Cholecalciferol, Vitamin D3, 1,000 unit cap Take 1,000 Units by mouth once daily. 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] 04/06/2018 04/18/2018 Mitral regurgitation [I34.0] 04/06/2018 04/18/2018 S/P mitral valve replacement with bioprosthetic* 018 S/P Maze operation for atrial fibrillation [Z98*04/18/2018 Hypotension [I95.9] 04/18/2018 S/P left atrial appendage ligation [Z98.890] 04/18/2018 Stress hyperglycemia [R73.9] 04/18/2018 Anemia associated with acute blood loss [D62] 04/18/2018 Leukocytosis [D72.829] 04/18/2018 Malnutrition of mild degree (HCC) [E44.1] 04/21/2018 Prolonged Q-T interval on ECG [R94.31] 05/31/2018 Lung nodules [R91.8] 06/03/2018 Paroxysmal ventricular tachycardia (HCC) [I47.2]06/24/2018 Encounter Status:Closed by MARIAH HOU on 06/18/21 Normal [facility] Laboratory - Chemistry and C hemistry - challengeon 05-06-2021 Magnesium [Mass/Vol] 2.4 mg/dL 1.6-2.6 [facility] Work Phone: No Panel Informationon 05-06 Troponin I High Sensitivity 2201 pg/mL 3.0-54.0 [facility] Work Phone: Comment on above: Critical Result(s) C alled at: 19:20:40 05/06/2021 by: Stephanie Clements. Results read back by same. Please Note: New Test Units and Gender Specific Reference Ranges. For more information see Policy Stat Procedure [place] High Sensitivity Troponin (TNIH) and attachments. SARS-CoV-2 Antigen (Rapid) [facility] Work Phone: Absolute lymphocyte counton 05-05-2021 Lymphocytes Auto (Unsp spec) [#/Vol] 1.57 10*3/uL 0.83-4.51 [facility] Work Phone: Basophil percentageon 2021 Basophils/100 WBC (Bld) 1.9 % 0-[address] [facility] Work Phone: Chloride [Moles/Vol] 112 mmol/L 98-107 [facility] Work Phone: Eosinophils/100 WBC (Bld) 2.8 % 0-5 [facility] Work Phone: Glucose [Mass/Vol] 105 mg/dL 74-106 [facility] Work Phone: Comment on above: Fasting Glucose resu lt from 100 to 125 mg/dL suggests IMPAIRED HOMEOSTASIS per A.D.A. criteria.Please note revised GLUCOSE reference range effective 2017. Neutrophils (Bld) [#/Vol] 3.0 10*3/uL 2.0-7.7 [facility] Work Phone: Neutrophils/100 WBC (Bld) 56.6 % 47-70 [facility] Work Phone: Potassium [Moles/Vol] 3.9 mmol/L 3.5-5.[address] [facility] Work Phone: Sodium [Moles/Vol] 141 mmol/L 136-145 [facility] Work Phone: WBC (Bld) [#/Vol] 5.3 10*3/uL 4.4-11.0 [facility] Work Phone: [phone] Blood erythrocytes count (nu mber/volume)on 05-05-2021 RBC (Bld) [#/Vol] 4.57 10*6/uL 4.2-5.4 [facility] Work Phone: Blood hemoglobin measurement (mass/volume)on 05-05-2021 Hemoglobin (Bld) [Mass/Vol] 14.0 g/dL 12.0-15.0 [facility] Work Phone: Blood lymphocytes/100 leukoc yteson 05-05-2021 Lymphocytes/100 WBC (Bld) 29.5 % 19-41 [facility] Work Phone: Blood monocytes/100 leukocyt eson 05-05-2021 Monocytes/100 WBC (Bld) 9.0 % 0-[address] [facility] Work Phone: Blood platelet mean volumeon 05-05-2021 Platelet mean volume (Bld) [Entitic vol] 8.7 fL 6.2-12.0 [facility] Work Phone: Determination of erythrocyte mean corpuscular volume (MCV)on 05-05-2021 MCV (RBC) [Entitic vol] 87.1 fL 81-[address] [facility] Work Phone: Hematocrit Auto (Bld) [Volum e fraction]on 05-05-2021 Hematocrit (Bld) [Volume fraction] 39.8 % 37-47 [facility] Work Phone: INR in Blood by Coagulation assayon 05-05-2021 INR Coag (Bld) [Relative time] 2.9 {INR} [facility] Work Phone: Laboratory - Chemistry and C hemistry - challengeon 05-05-2021 CO2 [Moles/Vol] 24.0 mmol/L 21.0-32.0 [facility] Work Phone: Magnesium [Mass/Vol] 1.8 mg/dL 1.6-2.6 [facility] Work Phone: Urea nitrogen/Creatinine [Mass ratio] 19.0 mg/mg 10-20 [facility] Work Phone: Laboratory - Coagulationon 0 05-05-2021 PT Coag (PPP) [Time] 29.8 s 11.7-14.9 [facility] Work Phone: Laboratory - Hematology and Cell countson 05-05-2021 Erythrocyte distribution width (RBC) [Entitic vol] 40.2 fL 35.1-43.9 [facility] Work Phone: Erythrocyte distribution width (RBC) [Ratio] 12.7 % 11.6-14.6 [facility] Work Phone: Immature granulocytes/100 WBC (Bld) 0.200 % 0.0-0.9 [facility] Work Phone: Comment on above: IG% - Immature Granu locytes (promyelocytes, myelocytes and metamyelocytes) > 1% indicates that a LEFT SHIFT is Present. MCH (RBC) [Entitic mass] 30.6 pg 27.0-32.0 [facility] Work Phone: Nucleated RBC/100 WBC (Bld) [Ratio] 0 % 0-5 [facility] Work Phone: [phone] MCHC Auto (RBC) [Mass/Vol]on 05-05-2021 MCHC (RBC) [Mass/Vol] 35.2 g/dL 32-[address] [facility] Work Phone: No Panel Informationon 05-05 Estimated Creatinine Clearance Calc 43.66 ml/min [facility] Work Phone: Estimated GFR (MDRD) Amer 84 mL/min >60 [facility] Work Phone: Comment on above: GFR Calc Estimated GFR (MDRD) Non-Af Amer 70 mL/min >60 [facility] Work Phone: Comment on above: Non- GFR Calc Troponin I High Sensitivity 76 pg/mL 3.0-54.0 [facility] Work Phone: Comment on above: Please Note: New [place] t Units and Gender Specific Reference Ranges. For more information see Policy Stat Procedure [place] High Sensitivity Troponin (TNIH) and attachments. Platelets bldon 05-05-2021 Platelets (Bld) [#/Vol] 194 10*3/uL 150-450 [facility] Work Phone: [phone] Serum or plasma calcium lashawn urement (mass/volume)on 05-05-2021 Calcium [Mass/Vol] 8.9 mg/dL 8.5-10.1 [facility] Work Phone: [phone] Serum or plasma creatinine m easurement (mass/volume)on 05-05-2021 Creatinine [Mass/Vol] 0.84 mg/dL 0.55-1.[address] [facility] Work Phone: [phone] Comment on above: The validity of the calculated GFR & GFRAA in patients over 70 years has not been determined. Clinical correlation is essential. Serum or plasma urea nitroge n measurement (mass/volume)on 05-05-2021 Urea nitrogen [Mass/Vol] 16 mg/dL 7-18 [facility] Work Phone: Thin prep Papanicolaou smear with manual screeningon 05-05-2021 Thin prep Papanicolaou smear with manual screening 5 5-15 [facility] Work Phone: CNPNon 04-19-2021 [facility] GLORIA MATHEW ([id number]) 1940 F T Date Time Provider Department 04/19/21 [facility] During your visit today, we recorded the following information about you: Ligia Bloom LPN 04/19/2021 3:36 PM Signed Pt LVM with her in home test result. INR 1.8. CALLIE Abad [facility] 04/19/2021 3:59 PM Signed Referred by: Dr. Perez Indication: [...] PT INR Date Value Ref Range Status 04/19/2021 1.8 Final Current warfarin dose: 1mg daily Description CONTINUE 1mg daily. Recheck INR in 2 weeks. Patient has been very sensitive to warfarin dose adjustments. She has been on 1mg daily since 10/22/20 and INR has been mostly stable. Last INR was therapeutic on 03/20. INR was elevated on 04/12. The patient had noticed a large bruise on right forearm, had some blood when blowing her nose, and thought she saw a small amount of blood after urinating. This prompted her to go for INR. She had been out of her multivitamin that contains 30 mcg of vitamin K which was thought to be the cause. She planned to resume the same vitamin, so held warfarin x2 doses. She also took a lower dose of 0.5mg on 04/14. She then resumed warfarin at 1mg daily. INR is now slightly low at 1.8. Low INR likely due to taking the lower dose of 0.5mg on 04/14. Confirmed that she had resumed her vitamin. Since INR had been stable and cause of elevated INR was identified, will continue 1mg daily and reassess again in 2 weeks. Discussed with patient on the phone who read back instructions and verbalized understanding. 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 If you experience an episode of palpitations that is persistent for more than 5 to 10 minutes take 1 to 2 tablets of the 50 mg strength. If you have any additional symptoms seek medical attention. If the episode last for an hour you can take a third tablet. Do not take more than 3 tablets in 24 hours - ipratropium bromide (ATROVENT) 42 mcg (0.06 %) nasal spray SPRAY 2 SPRAYS INTO EACH NOSTRIL TWICE A DAY - citalopram hydrobromide (CELEXA) 10 mg tablet - warfarin (COUMADIN) 1 mg tablet Take 1 tablet by mouth daily as directed. - amoxicillin (POLYMOX, AMOXIL) 500 mg capsule 4 capsules by mouth one hour before the dentist - simvastatin (ZOCOR) 10 mg tablet Take 10 mg by mouth daily at bedtime. - metoprolol tartrate, short acting, (LOPRESSOR) 25 mg tablet Take 1 tablet by mouth every 12 hours. - ascorbic acid, vitamin C, (VITAMIN C) 500 mg tablet Take 1 tablet by mouth twice daily. - pramipexole (MIRAPEX) 0.25 mg tablet Take 1 tablet by mouth daily at bedtime. - cholestyramine (QUESTRAN) 4 gram packet Take 1 Packet by mouth once daily. - alendronate (FOSAMAX) 70 mg tablet Take 1 tablet by mouth once each week. - Cyanocobalamin (VITAMIN B-12) 1,000 mcg subl Dissolve 1 tablet under the tongue once daily. - calcium carbonate (CALTRATE) 600 mg calcium (1,500 mg) tab Take 600 mg by mouth once daily. - gabapentin (NEURONTIN) 100 mg capsule Take 200 mg by mouth daily at bedtime. - Biotin-Silicon Kvda-R-Zxjpsppo 5,000 mcg-100 mg- 50 mg tab Take 1 tablet by mouth once daily. - Cholecalciferol, Vitamin D3, 1,000 unit cap Take 1,000 Units by mouth once daily. 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 Normal [facility] - Coagulationon 1 06-20-2020 INR Coag (Bld) [Relative time] 1.8 {INR} [facility] Work Phone: Comment on above: Critical Value > 4.0 Whole blood prothrombin time on 04-19-2021 PT Coag (Bld) [Time] 20.4 s 11.9-14.4 [facility] Work Phone: Jose 04-12-2021 CNPN Telephone (AG[employer]) GLORIA MATHEW ([id number]) 1940 F CHT Date Time Provider Department 04/12/21 [facility] During your visit today, we recorded the following information about you: Do Anaya, MARINE ARCHITECT 04/12/2021 3:38 PM [facility] called with critical results for this patient. Her INR ws 4.7. They had the lab do a confirmation as well. Do Anaya MARINE ARCHITECT 04/12/21 3:38 PM Mellisa Dutta [facility] 04/12/2021 3:48 PM Addendum Referred by: Dr. Perez Indication: [...] PT INR Date Value Ref Range Status 04/12/2021 4.7 Final Current warfarin dose: 1mg daily Description HOLD warfarin x2 days. Then CONTINUE 1mg daily. Recheck INR in 1 week. Patient has been very sensitive to warfarin dose adjustments. She has been on 1mg daily since 10/22/20 and INR has been mostly stable. Last INR was therapeutic on 03/20. INR is now elevated. The patient noticed a large bruise on right forearm with no identifiable cause. She has also had some blood when blowing her nose for the last week and this morning she thought she saw a small amount of blood after urinating. This prompted her to go for INR today. She reports she had been out of her multivitamin over the last week. Suspect that the multivitamin contains vitamin K. If this is the case, this would explain elevated INR. Patient is not home now and cannot check the bottle. She is unsure of the brand, so unable to look it up. She does have the vitamin on hand at home and plans to resume it. Since INR is elevated, will hold warfarin x2 days. Since she is resuming the multivitamin, will resume warfarin at current dose of 1mg daily (assuming the vitamin contains vitamin K). Patient will continue monitoring for bleeding and agrees to seek immediate medical attention if this continues or worsens. She will contact the clinic on 04/15 to report the vitamin K content of the multivitamin. If the multivitamin does not contain vitamin K, will need to decrease warfarin dose since there is no other cause of elevated INR identified. Patient will go back to the lab to check INR in 1 week. Discussed with patient on the phone who read back instructions and verbalized understanding. Funmi Suresh RPh 04/15/2021 10:18 AM Signed Patient contacted the clinic this morning. Her multivitamin does contain 30 mcg of vitamin K. Elevated INR last week likely due to skipping her multivitamin. She held warfarin on 04/12 and 04/13 and then took 0.5mg on 04/14. Bleeding has resolved. Since she has resumed her multivitamin, instructed her to resume usual dose of warfarin 1mg daily. Will reassess later this week as planned. 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 If you experience an episode of palpitations that is persistent for more than 5 to 10 minutes take 1 to 2 tablets of the 50 mg strength. If you have any additional symptoms seek medical attention. If the episode last for an hour you can take a third tablet. Do not take more than 3 tablets in 24 hours - ipratropium bromide (ATROVENT) 42 mcg (0.06 %) nasal spray SPRAY 2 SPRAYS INTO EACH NOSTRIL TWICE A DAY - citalopram hydrobromide (CELEXA) 10 mg tablet - warfarin (COUMADIN) 1 mg tablet Take 1 tablet by mouth daily as directed. - amoxicillin (POLYMOX, AMOXIL) 500 mg capsule 4 capsules by mouth one hour before the dentist - simvastatin (ZOCOR) 10 mg tablet Take 10 mg by mouth daily at bedtime. - metoprolol tartrate, short acting, (LOPRESSOR) 25 mg tablet Take 1 tablet by mouth every 12 hours. - ascorbic acid, vitamin C, (VITAMIN C) 500 mg tablet Take 1 tablet by mouth twice daily. - pramipexole (MIRAPEX) 0.25 mg tablet Take 1 tablet by mouth daily at bedtime. - cholestyramine (QUESTRAN) 4 gram packet Take 1 Packet by mouth once daily. - alendronate (FOSAMAX) 70 mg tablet Take 1 tablet by mouth once each week. (more content not included)... Normal [facility] - Coagulationon 1 06-13-2020 PT Coag (PPP) [Time] 41.6 s 11.7-14.9 [facility] Work Phone: Jose 04-04-2021 REBEKA Telephone (SHARON) GLORIA MATHEW ([id number]) 1940 F CHT Date Time Provider Department 04/04/21 DESMOND ACOSTA During your visit today, we recorded the following information about you: Desmond Acosta MD 04/04/2021 2:23 PM Signed Reviewed information from patient Visit to [place] 03/30 with palpitations due to AF, took a dose of Flecainide. In ED K 3.7 S Cr 1.0 ECG confirmed AF, TnI high senstivity 83 ( ULN 54) Underwent DCCV with moravian of NSR and discharged. Desmond Acosta MD Allergies As of Date: 04/04/2021 Noted Allergy Reaction ZOLOFT (SERTRALINE) 10/14/2019 14 - Other: See Comments Comments: palpitations Date Reviewed: 03/06/2021 Reviewed by: Desmond Acosta MD - Fully Assessed Reason for Visit: Results [95] Prescriptions as of 04/04/2021 - flecainide (TAMBOCOR) 50 mg tablet Take 1 tablet by mouth as needed for up to 16 doses. If you experience an episode of palpitations that is persistent for more than 5 to 10 minutes take 1 to 2 tablets of the 50 mg strength. If you have any additional symptoms seek medical attention. If the episode last for an hour you can take a third tablet. Do not take more than 3 tablets in 24 hours - ipratropium bromide (ATROVENT) 42 mcg (0.06 %) nasal spray SPRAY 2 SPRAYS INTO EACH NOSTRIL TWICE A DAY - citalopram hydrobromide (CELEXA) 10 mg tablet - warfarin (COUMADIN) 1 mg tablet Take 1 tablet by mouth daily as directed. - amoxicillin (POLYMOX, AMOXIL) 500 mg capsule 4 capsules by mouth one hour before the dentist - simvastatin (ZOCOR) 10 mg tablet Take 10 mg by mouth daily at bedtime. - metoprolol tartrate, short acting, (LOPRESSOR) 25 mg tablet Take 1 tablet by mouth every 12 hours. - ascorbic acid, vitamin C, (VITAMIN C) 500 mg tablet Take 1 tablet by mouth twice daily. - pramipexole (MIRAPEX) 0.25 mg tablet Take 1 tablet by mouth daily at bedtime. - cholestyramine (QUESTRAN) 4 gram packet Take 1 Packet by mouth once daily. - alendronate (FOSAMAX) 70 mg tablet Take 1 tablet by mouth once each week. - Cyanocobalamin (VITAMIN B-12) 1,000 mcg subl Dissolve 1 tablet under the tongue once daily. - calcium carbonate (CALTRATE) 600 mg calcium (1,500 mg) tab Take 600 mg by mouth once daily. - gabapentin (NEURONTIN) 100 mg capsule Take 200 mg by mouth daily at bedtime. - Biotin-Silicon Yibp-Y-Xcdmpqba 5,000 mcg-100 mg- 50 mg tab Take 1 tablet by mouth once daily. - Cholecalciferol, Vitamin D3, 1,000 unit cap Take 1,000 Units by mouth once daily. 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] 04/06/2018 04/18/2018 Mitral regurgitation [I34.0] 04/06/2018 04/18/2018 S/P mitral valve replacement with bioprosthetic* 018 S/P Maze operation for atrial fibrillation [Z98*04/18/2018 Hypotension [I95.9] 04/18/2018 S/P left atrial appendage ligation [Z98.890] 04/18/2018 Stress hyperglycemia [R73.9] 04/18/2018 Anemia associated with acute blood loss [D62] 04/18/2018 Leukocytosis [D72.829] 04/18/2018 Malnutrition of mild degree (HCC) [E44.1] 04/21/2018 Prolonged Q-T interval on ECG [R94.31] 05/31/2018 Lung nodules [R91.8] 06/03/2018 Paroxysmal ventricular tachycardia (HCC) [I47.2]06/24/2018 Encounter Status:Closed by [facility] GLORIA MATHEW ([id number]) 1940 F T Date Time Provider Department 04/02/21 DESMOND ACOSTA AGCARDPOB During your visit today, we recorded the following information about you: Donald Cunningham RN 04/02/2021 2:01 PM Signed Patient called to let us know that she went into atrial fibrillation. Patient took two Flecainide and fell asleep. Patient went to [place] ER and was cardioverted to sinus rhythm from atrial fibrillation heart rate of 120's. Patient remains in sinus rhythm and will have ER information faxed to our office for review. Donald Cunningham RN Allergies As of Date: 04/02/2021 Noted Allergy Reaction ZOLOFT (SERTRALINE) 10/14/2019 14 - Other: See Comments Comments: palpitations Date Reviewed: 03/06/2021 Reviewed by: Desmond Acosta MD - Fully Assessed Reason for Visit: Patient Update [1234] Prescriptions as of 04/02/2021 - flecainide (TAMBOCOR) 50 mg tablet Take 1 tablet by mouth as needed for up to 16 doses. If you experience an episode of palpitations that is persistent for more than 5 to 10 minutes take 1 to 2 tablets of the 50 mg strength. If you have any additional symptoms seek medical attention. If the episode last for an hour you can take a third tablet. Do not take more than 3 tablets in 24 hours - ipratropium bromide (ATROVENT) 42 mcg (0.06 %) nasal spray SPRAY 2 SPRAYS INTO EACH NOSTRIL TWICE A DAY - citalopram hydrobromide (CELEXA) 10 mg tablet - warfarin (COUMADIN) 1 mg tablet Take 1 tablet by mouth daily as directed. - amoxicillin (POLYMOX, AMOXIL) 500 mg capsule 4 capsules by mouth one hour before the dentist - simvastatin (ZOCOR) 10 mg tablet Take 10 mg by mouth daily at bedtime. - metoprolol tartrate, short acting, (LOPRESSOR) 25 mg tablet Take 1 tablet by mouth every 12 hours. - ascorbic acid, vitamin C, (VITAMIN C) 500 mg tablet Take 1 tablet by mouth twice daily. - pramipexole (MIRAPEX) 0.25 mg tablet Take 1 tablet by mouth daily at bedtime. - cholestyramine (QUESTRAN) 4 gram packet Take 1 Packet by mouth once daily. - alendronate (FOSAMAX) 70 mg tablet Take 1 tablet by mouth once each week. - Cyanocobalamin (VITAMIN B-12) 1,000 mcg subl Dissolve 1 tablet under the tongue once daily. - calcium carbonate (CALTRATE) 600 mg calcium (1,500 mg) tab Take 600 mg by mouth once daily. - gabapentin (NEURONTIN) 100 mg capsule Take 200 mg by mouth daily at bedtime. - Biotin-Silicon Fouh-K-Cfdayvye 5,000 mcg-100 mg- 50 mg tab Take 1 tablet by mouth once daily. - Cholecalciferol, Vitamin D3, 1,000 unit cap Take 1,000 Units by mouth once daily. 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] 04/06/2018 04/18/2018 Mitral regurgitation [I34.0] 04/06/2018 04/18/2018 S/P mitral valve replacement with bioprosthetic* 018 S/P Maze operation for atrial fibrillation [Z98*04/18/2018 Hypotension [I95.9] 04/18/2018 S/P left atrial appendage ligation [Z98.890] 04/18/2018 Stress hyperglycemia [R73.9] 04/18/2018 Anemia associated with acute blood loss [D62] 04/18/2018 Leukocytosis [D72.829] 04/18/2018 Malnutrition of mild degree (HCC) [E44.1] 04/21/2018 Prolonged Q-T interval on ECG [R94.31] 05/31/2018 Lung nodules [R91.8] 06/03/2018 Paroxysmal ventricular tachycardia (HCC) [I47.2]06/24/2018 Encounter Status:Closed by DONALD CUNNINGHAM on 04/02/21 [facility] 03-20-2021 CNPN Telephone ([employer]) GLORIA MATHEW ([id number]) 1940 F Date Time Provider Department 03/20/21 [facility] [employer] During your visit today, we recorded the following information about you: Aniya Shankar [facility] 03/20/2021 4:28 PM Signed Referred by: Dr. Perez Indication: [...] PT INR Date Value Ref Range Status 03/20/2021 2.1 Final Current warfarin dose: 1mg daily Description CONTINUE 1mg daily. Recheck INR in 4 weeks. Patient has been very sensitive to warfarin dose adjustments. She has been on 1mg daily since 6/21/21 and INR has been mostly stable. Her INR was then slightly elevated at 3.1 on 01/16. Did not make an adjustment. INR was back into range on 02/19 and is therapeutic again today. Will continue this dose. Left detailed message for patient. 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 If you experience an episode of palpitations that is persistent for more than 5 to 10 minutes take 1 to 2 tablets of the 50 mg strength. If you have any additional symptoms seek medical attention. If the episode last for an hour you can take a third tablet. Do not take more than 3 tablets in 24 hours - ipratropium bromide (ATROVENT) 42 mcg (0.06 %) nasal spray SPRAY 2 SPRAYS INTO EACH NOSTRIL TWICE A DAY - citalopram hydrobromide (CELEXA) 10 mg tablet - warfarin (COUMADIN) 1 mg tablet Take 1 tablet by mouth daily as directed. - amoxicillin (POLYMOX, AMOXIL) 500 mg capsule 4 capsules by mouth one hour before the dentist - simvastatin (ZOCOR) 10 mg tablet Take 10 mg by mouth daily at bedtime. - metoprolol tartrate, short acting, (LOPRESSOR) 25 mg tablet Take 1 tablet by mouth every 12 hours. - ascorbic acid, vitamin C, (VITAMIN C) 500 mg tablet Take 1 tablet by mouth twice daily. - pramipexole (MIRAPEX) 0.25 mg tablet Take 1 tablet by mouth daily at bedtime. - cholestyramine (QUESTRAN) 4 gram packet Take 1 Packet by mouth once daily. - alendronate (FOSAMAX) 70 mg tablet Take 1 tablet by mouth once each week. - Cyanocobalamin (VITAMIN B-12) 1,000 mcg subl Dissolve 1 tablet under the tongue once daily. - calcium carbonate (CALTRATE) 600 mg calcium (1,500 mg) tab Take 600 mg by mouth once daily. - gabapentin (NEURONTIN) 100 mg capsule Take 200 mg by mouth daily at bedtime. - Biotin-Silicon Ygxr-Q-Enzihxzy 5,000 mcg-100 mg- 50 mg tab Take 1 tablet by mouth once daily. - Cholecalciferol, Vitamin D3, 1,000 unit cap Take 1,000 Units by mouth once daily. 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] 04/06/2018 04/18/2018 Mitral regurgitation [I34.0] 04/06/2018 04/18/2018 S/P mitral valve replacement with bioprosthetic* 018 S/P Maze operation for atrial fibrillation [Z98*04/18/2018 Hypotension [I95.9] 04/18/2018 S/P left atrial appendage ligation [Z98.890] 04/18/2018 Stress hyperglycemia [R73.9] 04/18/2018 Anemia associated with acute blood loss [D62] 04/18/2018 Leukocytosis [D72.829] 04/18/2018 Malnutrition of mild degree (HCC) [E44.1] 04/21/2018 Prolonged Q-T interval on ECG [R94.31] 05/31/2018 Lung nodules [R91.8] 06/03/2018 Paroxysmal ventricular tachycardia (HCC) [I47.2]06/24/2018 Encounter Status:Closed by ANIYA SHANKAR on 03/20/21 [facility] CNOVon 03-06-2021 CNOV Office Visit (AGCARDPOB) GLORIA MATHEW ([id number]) 1940 F Date Time Provider Department 03/06/21 8:20 AM DESMOND ACOSTA AGCARDPOB During your visit today, we recorded the following information about you: Pulse Blood pressure Weight Height 61/minute 122/72 65.8 kg 1.575 m Lena Pitt MA 03/06/2021 8:07 AM Signed No cardiac concerns Desmond Acosta MD 03/06/2021 9:17 AM Addendum Heart and Vascular [facility] SECTION OF CARDIAC PACING and ELECTROPHYSIOLOGY PRIMARY CARE PHYSICIAN: Loree Vallecillo [address] [place] [address] REFERRING PHYSICIAN: Dr Aan JACKSON CHIEF COMPLAINT: PAF management HISTORY OF PRESENT ILLNESS: Ms. Mathew is a 80 year old female who presents today to discuss options for management of atrial fibrillation. 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 May 21 2018 started on Amio for AF, was on 200 tid and on May 27 2018 MEERA guided DCV. May 31 admitted for LT PLef and Polymorphic VT/Torsades Prolonged QTc 520ms, Amio stopped, BB held for bradycardia. December 2020 presented to [place] with dizziness and was in AF, given Amiodarone and underwent DCCV. From prior records she had H.o Torsades de pointes when on Amiodarone and BB for AF in 2019. Her TTe 09/2020 EF 65%, severely dilated LA and well functioning MV. She had done well until this past December when she experienced episode of atrial fibrillation needing emergency room visit. She since then has been on metoprolol. She wore a monitor for 14 days which showed a burden of A. fib of 1%. Subsequently on 23 February she had another episode of palpitations which woke her up at 5:30 in the morning. She felt uncomfortable in her chest. There was no dizziness shortness of breath. She came into the [place] emergency room with the help of her sister. She underwent DC cardioversion after that she was increased to 50 mg twice a day of metoprolol Since then to now no further episodes. She is able to climb up 3 flights of steps without stopping. She is able to do all her activities of daily living. No bleeding on the warfarin. She is tolerating the 50 mg bid of metoprolol without any obvious side effects PMH - TRISH IBS Lt renal calculi Family history -father had bradycardia needing a pacemaker. He had a pacemaker from [id number] and lived to [facility]. Prior Cardiac Testing ECG 01/30/21 - NSR/Ectopic low RAsite P inv 3., aVf AK 200 QRS 92 QTc 436 01/24/2021-sinus rhythm/low RAsite heart rate 64 bpm T wave inversions V1 and 2 not new normal QT QTc interval 03/04/2019-normal sinus rhythm, occasional PAC.?QTc 415 msec,Heart rate 64 bpm 06/01/2018 - Sinus 70 QTc 470 No U waves. 05/31/2018 - Sinus 55bpm QT 542 Tinv V1 V2 U wave V3-V6 05/27/2018 1527- AF 113bpm QTc 518 ? Holter 02/20/21 13 days - HR 50 - 113 AF burden 0.26% Longest episode 53mins max HR 140bpm 01/31/21 at 9 26AM No pause PAC 0.14% PVC 0.01% 30 day event monitor 08/21/18 through 07/06/2018: Sinus rhythm, sinus bradycardia, heart rate 53-67?bpm ? Echocardiogram 09/07/2020-EF 65%, mild LVH, severely dilated left atrium, mildly dilated right atrium, #29 [facility] bioprosthetic mitral valve with peak and mean gradients of 20 and 7 mmHg respectively, 1+ TR, 1+ AI ?06/14/18: EF 59%, right ventricle mildly dilated, RV systolic function normal, LAD severely dilated, RA mildly dilated, status post mitral valve replacement [facility] Zenon medical prosthetic mitral valve size #29, no mitral regurgitation, no mitral stenosis, mean gradient 6 mmHg, no stenosis or regurgitation, mild AI. 05/23/17: EF 55-60%, 3-4+ MR, moderate to severe mitral stenosis, 1-2+ TR, RVSP = 61 mmHg. ? Cardiac catheterization right and left 03/31/2018: EF 60%, on MEERA. Severe mitral valve calcification noted, left main normal, LAD normal, diag?1 and diag2?normal, circumflex normal, OM1-?3,?normal, ramus intermediate artery present, normal, right coronary artery dominant to posterior circulation, moderate size vessel, normal. Pulmonary capillary wedge pressure 24 mmHg, LV EDP 4 mmHg, gradient from wedge to LVEDP 20-25 mmHg consistent with ?severe mitral stenosis. ? PAST MEDICAL HISTORY Diagnosis Date - Atrial fibrillation (HCC) - Atrial fibrillation with RVR (HCC) - Breast mass, right - H/O maze procedure 04/16/2018 maze procedure with left and right atrial lesion sets (radiofrequency clamp and cryo) - H/O mitral valve replacement 04/16/2018 29-mm [facility] Epic bioprosthesis - IBS (irritable bowel syndrome) - Lung nodules 06/03/2018 - Mitral valve regurgitation - Mitral valve stenosis - Prolonged QT interval - Pulmonary (more content not included)... Normal [facility] 02-24-2021 [facility] Telephone (AGCARDPOB ) GLORIA MATHEW ([id number]) 1940 F Date Time Provider Department 02/24/21 JEAN-PIERRE PEREZ During your visit today, we recorded the following information about you: Jean-Pierre Perez MD 02/24/2021 12:48 PM Signed Patient was documented to have some A. fib in [place]. Management tricky because previously had torsade the point I believe on amiodarone so not sure that we want to do rhythm management. If the A. fib is pretty well controlled rate palmer I would be inclined to just follow her on current medicines. I think it would also be worth having her see one of the EP docs at some point: I would suggest that we make an appointment for her to see Dr. Acosta but she would have to come up to [place] because I do not believe there are any EP docs in [place]. Thx MD Mariah Lazcano RN 02/25/2021 9:05 AM Signed Spoke with pt. She reiterates her 2 trips to ER 02/23/21. She reports presently she feels well and denies present symptoms of afib. Pt is agreeable to see Dr Acosta in [place]. Mariah Hou RN Allergies As of Date: 02/24/2021 Noted Allergy Reaction ZOLOFT (SERTRALINE) 10/14/2019 14 - Other: See Comments Comments: palpitations Date Reviewed: 01/24/2021 Reviewed by: Arnold Carlson APRN.MOLD DUMPER - Fully Assessed Reason for Visit: Patient Update [1234] Primary Visit Diagnosis:Persistent atrial fibrillation (HCC) [I48.19] Order(s):CONSULT TO ELECTROPHYSIOLOGY [[id number]] Order #: [id number]: 1 FUTURE Prescriptions as of 02/27/2021 - ipratropium bromide (ATROVENT) 42 mcg (0.06 %) nasal spray SPRAY 2 SPRAYS INTO EACH NOSTRIL TWICE A DAY - citalopram hydrobromide (CELEXA) 10 mg tablet - warfarin (COUMADIN) 1 mg tablet Take 1 tablet by mouth daily as directed. - amoxicillin (POLYMOX, AMOXIL) 500 mg capsule 4 capsules by mouth one hour before the dentist - simvastatin (ZOCOR) 10 mg tablet Take 10 mg by mouth daily at bedtime. - metoprolol tartrate, short acting, (LOPRESSOR) 25 mg tablet Take 1 tablet by mouth every 12 hours. - ascorbic acid, vitamin C, (VITAMIN C) 500 mg tablet Take 1 tablet by mouth twice daily. - pramipexole (MIRAPEX) 0.25 mg tablet Take 1 tablet by mouth daily at bedtime. - cholestyramine (QUESTRAN) 4 gram packet Take 1 Packet by mouth once daily. - alendronate (FOSAMAX) 70 mg tablet Take 1 tablet by mouth once each week. - Cyanocobalamin (VITAMIN B-12) 1,000 mcg subl Dissolve 1 tablet under the tongue once daily. - calcium carbonate (CALTRATE) 600 mg calcium (1,500 mg) tab Take 600 mg by mouth once daily. - gabapentin (NEURONTIN) 100 mg capsule Take 200 mg by mouth daily at bedtime. - Biotin-Silicon Cegl-L-Bsnvniyb 5,000 mcg-100 mg- 50 mg tab Take 1 tablet by mouth once daily. - Cholecalciferol, Vitamin D3, 1,000 unit cap Take 1,000 Units by mouth once daily. 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] 04/06/2018 04/18/2018 Mitral regurgitation [I34.0] 04/06/2018 04/18/2018 S/P mitral valve replacement with bioprosthetic* 018 S/P Maze operation for atrial fibrillation [Z98*04/18/2018 Hypotension [I95.9] 04/18/2018 S/P left atrial appendage ligation [Z98.890] 04/18/2018 Stress hyperglycemia [R73.9] 04/18/2018 Anemia associated with acute blood loss [D62] 04/18/2018 Leukocytosis [D72.829] 04/18/2018 Malnutrition of mild degree (HCC) [E44.1] 04/21/2018 Prolonged Q-T interval on ECG [R94.31] 05/31/2018 Lung nodules [R91.8] 06/03/2018 Paroxysmal ventricular tachycardia (HCC) [I47.2]06/24/2018 Encounter Status:Closed by JEAN-PIERRE PEREZ [facility]27/[facility] Tele[facility] (AGINTMAC) QUINCYGLORIA Merly ([id number]) 1940 F Date Time Provider Department 02/19/21 [facility] During your visit today, we recorded the following information about you: Aniya Shankar RPh 02/20/2021 9:19 AM Signed Referred by: Dr. Perez Indication: New [...] PT INR Date Value Ref Range Status 02/19/2021 2.9 Final Current warfarin dose: 1mg daily Description CONTINUE 1mg daily. Recheck INR in 4 weeks. Patient has been very sensitive to warfarin dose adjustments. She has been on 1mg daily since 10/22/20 and INR has been mostly stable. Her last INR was then slightly elevated at 3.1 on 01/16. Did not make an adjustment. INR is now therapeutic. Will continue this dose. Discussed with patient on the phone who read back instructions and verbalized understanding. 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 - amoxicillin (POLYMOX, AMOXIL) 500 mg capsule 4 capsules by mouth one hour before the dentist - simvastatin (ZOCOR) 10 mg tablet Take 10 mg by mouth daily at bedtime. - metoprolol tartrate, short acting, (LOPRESSOR) 25 mg tablet Take 1 tablet by mouth every 12 hours. - ascorbic acid, vitamin C, (VITAMIN C) 500 mg tablet Take 1 tablet by mouth twice daily. - pramipexole (MIRAPEX) 0.25 mg tablet Take 1 tablet by mouth daily at bedtime. - cholestyramine (QUESTRAN) 4 gram packet Take 1 Packet by mouth once daily. - alendronate (FOSAMAX) 70 mg tablet Take 1 tablet by mouth once each week. - Cyanocobalamin (VITAMIN B-12) 1,000 mcg subl Dissolve 1 tablet under the tongue once daily. - calcium carbonate (CALTRATE) 600 mg calcium (1,500 mg) tab Take 600 mg by mouth once daily. - gabapentin (NEURONTIN) 100 mg capsule Take 200 mg by mouth daily at bedtime. - Biotin-Silicon Qwic-E-Tsjehecn 5,000 mcg-100 mg- 50 mg tab Take 1 tablet by mouth once daily. - Cholecalciferol, Vitamin D3, 1,000 unit cap Take 1,000 Units by mouth once daily. 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] 04/06/2018 04/18/2018 Mitral regurgitation [I34.0] 04/06/2018 04/18/2018 S/P mitral valve replacement with bioprosthetic* 018 S/P Maze operation for atrial fibrillation [Z98*04/18/2018 Hypotension [I95.9] 04/18/2018 S/P left atrial appendage ligation [Z98.890] 04/18/2018 Stress hyperglycemia [R73.9] 04/18/2018 Anemia associated with acute blood loss [D62] 04/18/2018 Leukocytosis [D72.829] 04/18/2018 Malnutrition of mild degree (HCC) [E44.1] 04/21/2018 Prolonged Q-T interval on ECG [R94.31] 05/31/2018 Lung nodules [R91.8] 06/03/2018 Paroxysmal ventricular tachycardia (HCC) [I47.2]06/24/2018 Encounter Status:Closed by ANIYA SHANKAR on 02/20/21 [facility] 01-28-2021 [facility] Telephone (AAKASHMAC) GLORIA MATHEW ([id number]) 1940 F Date Time Provider Department 01/28/21 MELLISA UDTTA During your visit today, we recorded the following information about you: Mellisa Dutta RPh 01/28/2021 11:48 AM Signed Patient was to have her INR drawn in lab on 01/16 but we have not received results. Please check with patient. Funmi Flood LPN 01/28/2021 3:56 PM Signed Called and spoke with pt and she stated she did go to lab on 01/16 (at [facility]) and the INR was 3.1 CALLIE [facility] 01/28/2021 4:13 PM Signed Referred by: Dr. Perez Indication: [...] PT INR Date Value Ref Range Status 01/16/2021 3.1 Final Current warfarin dose: 1mg daily Description CONTINUE 1mg daily. Recheck INR in 3 weeks. Patient has been very sensitive to warfarin dose adjustments. Her INR was just above goal at 3.1 on 10/03. Did not make a dose adjustment. The patient then contacted the clinic on 10/23 with complaint of bloodshot eye. She denied pain or vision changes. She decreased warfarin to 1mg on 10/22. Gave instructions to continue lower dose of 1mg daily until next INR. INR has been therapeutic since. INR on 01/16 was slightly elevated but this is now over 1 1/2 weeks old. Will continue current dose at this time and recheck on 02/06. Left detailed message for patient. Mellisa Dutta RPh Allergies As of Date: 01/28/2021 Noted Allergy Reaction ZOLOFT (SERTRALINE) 10/14/2019 14 - Other: See Comments Comments: palpitations Date Reviewed: 01/24/2021 Reviewed by: Arnold Carlson APRN.MOLD DUMPER - Fully Assessed Reason for Visit: Anticoagulation [8] Visit Diagnoses:senior living current use of anticoagulant [Z79.01] Paroxysmal atrial fibrillation (HCC) [I48.0] Order(s):PROTHROMBIN TIME/PT [SQPT] Order #: [id number] Prescriptions as of 01/28/2021 - ipratropium bromide (ATROVENT) 42 mcg (0.06 %) nasal spray SPRAY 2 SPRAYS INTO EACH NOSTRIL TWICE A DAY - citalopram hydrobromide (CELEXA) 10 mg tablet - warfarin (COUMADIN) 1 mg tablet Take 1 tablet by mouth daily as directed. - amoxicillin (POLYMOX, AMOXIL) 500 mg capsule 4 capsules by mouth one hour before the dentist - simvastatin (ZOCOR) 10 mg tablet Take 10 mg by mouth daily at bedtime. - metoprolol tartrate, short acting, (LOPRESSOR) 25 mg tablet Take 1 tablet by mouth every 12 hours. - ascorbic acid, vitamin C, (VITAMIN C) 500 mg tablet Take 1 tablet by mouth twice daily. - pramipexole (MIRAPEX) 0.25 mg tablet Take 1 tablet by mouth daily at bedtime. - cholestyramine (QUESTRAN) 4 gram packet Take 1 Packet by mouth once daily. - alendronate (FOSAMAX) 70 mg tablet Take 1 tablet by mouth once each week. - Cyanocobalamin (VITAMIN B-12) 1,000 mcg subl Dissolve 1 tablet under the tongue once daily. - calcium carbonate (CALTRATE) 600 mg calcium (1,500 mg) tab Take 600 mg by mouth once daily. - gabapentin (NEURONTIN) 100 mg capsule Take 200 mg by mouth daily at bedtime. - Biotin-Silicon Rgli-R-Crrjgunw 5,000 mcg-100 mg- 50 mg tab Take 1 tablet by mouth once daily. - Cholecalciferol, Vitamin D3, 1,000 unit cap Take 1,000 Units by mouth once daily. 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] 04/06/2018 04/18/2018 Mitral regurgitation [I34.0] 04/06/2018 04/18/2018 S/P mitral valve replacement with bioprosthetic* 018 S/P Maze operation for atrial fibrillation [Z98*04/18/2018 Hypotension [I95.9] 04/18/2018 S/P left atrial appendage ligation [Z98.890] 04/18/2018 Stress hyperglycemia [R73.9] 04/18/2018 Anemia associated with acute blood loss [D62] 04/18/2018 Leukocytosis [D72.829] 04/18/2018 Malnutrition of mild degree (HCC) [E44.1] 04/21/2018 Prolonged Q-T interval on ECG [R94.31] 05/31/2018 Lung nodules [R91.8] 06/03/2018 Paroxysmal ventricular tachycardia (HCC) [I47.2]06/24/2018 Encounter Status:Closed by MELLISA DUTTA on 01/28/21 [facility] NURSING PROGon 01-28-2021 NURSING PROG HNO ID: [id number] Author: Yazmin Mccartney Dining Host Service: ? Author Type: Dining Host Type: Nursing Progress Note Filed: 01/28/2021 11:32 AM Note Text: Applied 14 day extended wear EKG patch. Pt verbalized understanding of monitor use / diary. [facility] CNPNon 01-25-2021 CNPN Telephone (AGCARDPOKirill ) GLORIA MATHEW ([id number]) 1940 F Date Time Provider Department 01/25/21 ARNOLD CARLSON During your visit today, we recorded the following information about you: Arnold Carlson APRN.MOLD DUMPER 01/25/2021 2:58 PM Signed Pt was seen in office yesterday. She signed release of records to obtain records from [place] [facility]. Please call and see if they have sent records. She was in the ER in Dec 2020. Need all ER records Arnold Carlson APRN.MOLD DUMPER Allergies As of Date: 01/25/2021 Noted Allergy Reaction ZOLOFT (SERTRALINE) 10/14/2019 14 - Other: See Comments Comments: palpitations Date Reviewed: 01/24/2021 Reviewed by: Arnold Carlson APRN.MOLD DUMPER - Fully Assessed Reason for Visit: Follow Up [171] Prescriptions as of 01/29/2021 - ipratropium bromide (ATROVENT) 42 mcg (0.06 %) nasal spray SPRAY 2 SPRAYS INTO EACH NOSTRIL TWICE A DAY - citalopram hydrobromide (CELEXA) 10 mg tablet - warfarin (COUMADIN) 1 mg tablet Take 1 tablet by mouth daily as directed. - amoxicillin (POLYMOX, AMOXIL) 500 mg capsule 4 capsules by mouth one hour before the dentist - simvastatin (ZOCOR) 10 mg tablet Take 10 mg by mouth daily at bedtime. - metoprolol tartrate, short acting, (LOPRESSOR) 25 mg tablet Take 1 tablet by mouth every 12 hours. - ascorbic acid, vitamin C, (VITAMIN C) 500 mg tablet Take 1 tablet by mouth twice daily. - pramipexole (MIRAPEX) 0.25 mg tablet Take 1 tablet by mouth daily at bedtime. - cholestyramine (QUESTRAN) 4 gram packet Take 1 Packet by mouth once daily. - alendronate (FOSAMAX) 70 mg tablet Take 1 tablet by mouth once each week. - Cyanocobalamin (VITAMIN B-12) 1,000 mcg subl Dissolve 1 tablet under the tongue once daily. - calcium carbonate (CALTRATE) 600 mg calcium (1,500 mg) tab Take 600 mg by mouth once daily. - gabapentin (NEURONTIN) 100 mg capsule Take 200 mg by mouth daily at bedtime. - Biotin-Silicon Lpye-V-Fdnebzvt 5,000 mcg-100 mg- 50 mg tab Take 1 tablet by mouth once daily. - Cholecalciferol, Vitamin D3, 1,000 unit cap Take 1,000 Units by mouth once daily. 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] 04/06/2018 04/18/2018 Mitral regurgitation [I34.0] 04/06/2018 04/18/2018 S/P mitral valve replacement with bioprosthetic* 018 S/P Maze operation for atrial fibrillation [Z98*04/18/2018 Hypotension [I95.9] 04/18/2018 S/P left atrial appendage ligation [Z98.890] 04/18/2018 Stress hyperglycemia [R73.9] 04/18/2018 Anemia associated with acute blood loss [D62] 04/18/2018 Leukocytosis [D72.829] 04/18/2018 Malnutrition of mild degree (HCC) [E44.1] 04/21/2018 Prolonged Q-T interval on ECG [R94.31] 05/31/2018 Lung nodules [R91.8] 06/03/2018 Paroxysmal ventricular tachycardia (HCC) [I47.2]06/24/2018 Encounter Status:Closed by ARNOLD CARLSON on 01/29/21 [facility] 01-24-2021 [facility] Office Visit (AGCARDPOB) GLORIA MATHEW ([id number]) 1940 F Date Time Provider Department 01/24/21 10:00 AM ARNOLD CARLSON During your visit today, we recorded the following information about you: Pulse Blood pressure Weight Height 67/minute 126/76 64.4 kg 1.575 m Lena Pitt MA 01/24/2021 10:16 AM Signed No cardiac concerns today Arnold Carlson APRN.HANNAH 01/24/2021 11:54 AM Signed Chief Complaint: Patient presents with: Cardiology Follow Up : Hispital follow up History of Present Illness: Gloria Mathew is a 80 year old female with history of mitral regurg and stenosis status post bioprosthetic mitral valve replacement, number [address] [facility] April 2018, paroxysmal atrial fibrillation hyperlipidemia, depression. At the time of the mitral valve replacement she did undergo left atrial appendage ligation with a atrial clip. She was last seen and evaluated October [address] Perez at that time she was doing well. She presented to [place] emergency room due to complaints of lightheadedness and dizziness the end of December. According to patient and her power of sports attorney she was in atrial fibrillation she did not respond to medical therapy the power of sports attorney states she received amiodarone therapy and therefore she underwent cardioversion restoring sinus rhythm. I do have no records to review at the time of this visit. Patient does have a history of polymorphic ventricular tachycardia and torsades when she had been previously treated with amiodarone and beta-edson therapy for the A. fib in 2018. Dr. Lyons's notes and previous review and Dr. Perez's notes state that if she had recurrence of the atrial fibrillation she would likely need AV karin ablation and pacemaker implant. To patient's knowledge this has been the first occurrence where she was lightheaded and dizzy she had no chest complaints. She presents today in follow-up. She is denying any complaints of chest pain, palpitations tach palpitations syncope nor near syncope. . PAST MEDICAL HISTORY Diagnosis Date - Atrial fibrillation (HCC) - Atrial fibrillation with RVR (HCC) - Breast mass, right - H/O maze procedure 04/16/2018 maze procedure with left and right atrial lesion sets (radiofrequency clamp and cryo) - H/O mitral valve replacement 04/16/2018 29-mm [facility] Epic bioprosthesis - IBS (irritable bowel syndrome) - Lung nodules 06/03/2018 - Mitral valve regurgitation - Mitral valve stenosis - Prolonged QT interval - Pulmonary HTN (HCC) - S/P left atrial appendage ligation 04/16/2018 exclusion of left atrial appendage with a 45 mm atrial clip. - Torsades de pointes (HCC) - Tricuspid regurgitation - Ventricular tachycardia (HCC) PAST SURGICAL HISTORY Procedure Laterality Date - ATRIAL APPENDAGE LIGATION 04/16/2018 exclusion of left atrial appendage with a 45 mm atrial clip. - BREAST BIOPSY - CARDIOVERSION 05/27/2018 - CHOLECYSTECTOMY HX 10/02/2011 - ECHO TRANSESOPHAGEAL 05/27/2018 - HYSTERECTOMY HX MARYELLEN/BLO - LEG SURGERY [...] uncle - Stroke Maternal Grandfather Social History Tobacco Use - Smoking status: Never Smoker - Smokeless tobacco: Never Used Vaping Use - Vaping Use: Never used Substance Use Topics - Alcohol use: No - Drug use: No Current Outpatient Medications Medication Sig - ipratropium bromide (ATROVENT) 42 mcg (0.06 %) nasal spray SPRAY 2 SPRAYS INTO EACH NOSTRIL TWICE A DAY - citalopram hydrobromide (CELEXA) 10 mg tablet - warfarin (COUMADIN) 1 mg tablet Take 1 tablet by mouth daily as directed. - simvastatin (ZOCOR) 10 mg tablet Take 10 mg by mouth daily at bedtime. - metoprolol tartrate, short acting, (LOPRESSOR) 25 mg tablet Take 1 tablet by mouth every 12 hours. - ascorbic acid, vitamin C, (VITAMIN C) 500 mg tablet Take 1 tablet by mouth twice daily. - pramipexole (MIRAPEX) 0.25 mg tablet Take 1 tablet by mouth daily at bedtime. - cholestyramine (QUESTRAN) 4 gram packet Take 1 Packet by mouth once daily. - alendronate (FOSAMAX) 70 mg tablet Take 1 tablet by mouth once each week. - Cyanocobalamin (VITAMIN B-12) 1,000 mcg subl Dissolve 1 tablet under the tongue once daily. - calcium carbonate (CALTRATE) 600 mg calcium (1,500 mg) tab Take 600 mg by mouth once daily. - gabapentin (NEURONTIN) 100 mg capsule Take 200 mg by mouth daily at bedtime. - Cholecalciferol, Vitamin D3, 1,000 un (more content not included)... [facility] CNPNon 01-01-2021 CNPN Telephone (AGCARDHWG ) MATHEWGLORIA NASH ([id number]) 1940 F Date Time Provider Department 01/01/21 JEAN-PIERRE PEREZ AGCARDHWG During your visit today, we recorded the following information about you: Melinda Redd LPN 01/01/2021 3:01 PM Signed Ms Mathew called. She went to [facility] last evening for a fib with RVR. She said she had heart rate above 200 and had DCC done which restored sinus rhythm. She was discharged this am and currently her B/P is 119/61 with heart rate 60. They made no changes in her current medications and INR was therapeutic at that time. She will have discharge summary note fax to Dr Perez for his records. She currently is not scheduled to see you until 11-22-2021. 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 She will see Arnold Carlson NP on 01-24-2021. Melinda Redd LPN Allergies As of Date: 01/01/2021 Noted Allergy Reaction ZOLOFT (SERTRALINE) 10/14/2019 14 - Other: See Comments Comments: palpitations Date Reviewed: 10/25/2020 Reviewed by: Carey Kidd LPN - Fully Assessed Reason for Visit: Patient Update [1234] Prescriptions as of 01/01/2021 - citalopram hydrobromide (CELEXA) 10 mg tablet - warfarin (COUMADIN) 1 mg tablet Take 1 tablet by mouth daily as directed. - amoxicillin (POLYMOX, AMOXIL) 500 mg capsule 4 capsules by mouth one hour before the dentist - simvastatin (ZOCOR) 10 mg tablet Take 10 mg by mouth daily at bedtime. - metoprolol tartrate, short acting, (LOPRESSOR) 25 mg tablet Take 1 tablet by mouth every 12 hours. - furosemide (LASIX) 40 mg tablet Take 0.5 tablets by mouth once daily as needed. For weight gain or leg swelling. - acetaminophen (TYLENOL) 325 mg tablet Take 2 tablets by mouth every 4 hours as needed. - ferrous sulfate 325 mg (65 mg iron) tablet Take 1 tablet by mouth twice daily with meals. - melatonin 3 mg tablet Take 1 tablet by mouth at bedtime as needed (insomnia). - ascorbic acid, vitamin C, (VITAMIN C) 500 mg tablet Take 1 tablet by mouth twice daily. - pramipexole (MIRAPEX) 0.25 mg tablet Take 1 tablet by mouth daily at bedtime. - PROAIR HFA 90 mcg/actuation inhaler Inhale 2 Puffs as instructed every 6 hours as needed for Wheezing/Shortness of Breath. - cholestyramine (QUESTRAN) 4 gram packet Take 1 Packet by mouth once daily. - alendronate (FOSAMAX) 70 mg tablet Take 1 tablet by mouth once each week. - Cyanocobalamin (VITAMIN B-12) 1,000 mcg subl Dissolve 1 tablet under the tongue once daily. - calcium carbonate (CALTRATE) 600 mg calcium (1,500 mg) tab Take 600 mg by mouth once daily. - gabapentin (NEURONTIN) 100 mg capsule Take 200 mg by mouth daily at bedtime. - Biotin-Silicon Lndy-K-Hlbonjpx 5,000 mcg-100 mg- 50 mg tab Take 1 tablet by mouth once daily. - Cholecalciferol, Vitamin D3, 1,000 unit cap Take 1,000 Units by mouth once daily. 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] 04/06/2018 04/18/2018 Mitral regurgitation [I34.0] 04/06/2018 04/18/2018 S/P mitral valve replacement with bioprosthetic* 018 S/P Maze operation for atrial fibrillation [Z98*04/18/2018 Hypotension [I95.9] 04/18/2018 S/P left atrial appendage ligation [Z98.890] 04/18/2018 Stress hyperglycemia [R73.9] 04/18/2018 Anemia associated with acute blood loss [D62] 04/18/2018 Leukocytosis [D72.829] 04/18/2018 Malnutrition of mild degree (HCC) [E44.1] 04/21/2018 Prolonged Q-T interval on ECG [R94.31] 05/31/2018 Lung nodules [R91.8] 06/03/2018 Paroxysmal ventricular tachycardia (HCC) [I47.2]06/24/2018 Encounter Status:Closed by MELINDA REDD on 01/01/21 [facility] 12-24-2020 CNPN Telephone (AGQualMetrix) GLORIA MATHEW ([id number]) 1940 F Date Time Provider Department 12/24/20 [facility] During your visit today, we recorded the following information about you: Renny Morris LPN 12/24/2020 2:58 PM Signed Pt called into coumadin clinic today, stated she did do her INR last 12/19 and it was 2.8, she stated she forgot to call it in and has been doing her regular dosing CALLIE [facility] 12/24/2020 3:46 PM Signed Referred by: Dr. Perez Indication: [...] PT INR Date Value Ref Range Status 12/19/2020 2.8 Final Current warfarin dose: 1mg daily Description CONTINUE 1mg daily. Recheck INR in 4 weeks. Patient has been very sensitive to warfarin dose adjustments. Her INR was just above goal at 3.1 on 10/03. Did not make a dose adjustment. The patient then contacted the clinic on 10/23 with complaint of bloodshot eye. She denied pain or vision changes. She decreased warfarin to 1mg on 10/22. Gave instructions to continue lower dose of 1mg daily until next INR. INR was therapeutic on 10/31 and 11/21 and remains stable today. Will continue this dose. Left detailed message for patient. 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 - amoxicillin (POLYMOX, AMOXIL) 500 mg capsule 4 capsules by mouth one hour before the dentist - simvastatin (ZOCOR) 10 mg tablet Take 10 mg by mouth daily at bedtime. - metoprolol tartrate, short acting, (LOPRESSOR) 25 mg tablet Take 1 tablet by mouth every 12 hours. - furosemide (LASIX) 40 mg tablet Take 0.5 tablets by mouth once daily as needed. For weight gain or leg swelling. - acetaminophen (TYLENOL) 325 mg tablet Take 2 tablets by mouth every 4 hours as needed. - ferrous sulfate 325 mg (65 mg iron) tablet Take 1 tablet by mouth twice daily with meals. - melatonin 3 mg tablet Take 1 tablet by mouth at bedtime as needed (insomnia). - ascorbic acid, vitamin C, (VITAMIN C) 500 mg tablet Take 1 tablet by mouth twice daily. - pramipexole (MIRAPEX) 0.25 mg tablet Take 1 tablet by mouth daily at bedtime. - PROAIR HFA 90 mcg/actuation inhaler Inhale 2 Puffs as instructed every 6 hours as needed for Wheezing/Shortness of Breath. - cholestyramine (QUESTRAN) 4 gram packet Take 1 Packet by mouth once daily. - alendronate (FOSAMAX) 70 mg tablet Take 1 tablet by mouth once each week. - Cyanocobalamin (VITAMIN B-12) 1,000 mcg subl Dissolve 1 tablet under the tongue once daily. - calcium carbonate (CALTRATE) 600 mg calcium (1,500 mg) tab Take 600 mg by mouth once daily. - gabapentin (NEURONTIN) 100 mg capsule Take 200 mg by mouth daily at bedtime. - Biotin-Silicon Mrod-Y-Vlgzhqwb 5,000 mcg-100 mg- 50 mg tab Take 1 tablet by mouth once daily. - Cholecalciferol, Vitamin D3, 1,000 unit cap Take 1,000 Units by mouth once daily. 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 Normal [facility] CNCMeghann 11-21-2020 CNCO HNO ID: [id number] Author: Mammography Coordinator Service: ? Author Type: Physician Type: Letter Filed: 11/22/2020 11:31 PM Note Text: [facility] [id number] [address] [place] [address] November 21, 2020 PID: [id number] Gloria Mathew [address] [place] [address] Dear Mrs. Mathew, We are pleased to inform you that the results of your recent breast imaging exam on 11/20/2020 are normal. Early detection of cancer is very important. We also understand recommendations regarding breast cancer screening are controversial. Please discuss with your primary care provider which strategy is best for you and whether a mammogram is right for you. Your imaging studies and report will be kept on file at [facility] as part of your permanent medical record and are available for your continuing care. Thank you for allowing us to help in meeting your health care needs. Sincerely, Dr. Gasca Interpreting Radiologist [facility] Breast [facility] [employer] (Normal over 40) Normal [facility] CNPElizabeth 11-21-2020 CNPN Telephone ([email or web address]) GLORIA MATHEW ([id number]) 1940 F Date Time Provider Department 11/21/20 [facility] AGINTMAC During your visit today, we recorded the following information about you: Hanna VelascoFunmi 11/21/2020 1:59 PM Signed Referred by: Dr. Perez Indication: [...] PT INR Date Value Ref Range Status 11/21/2020 2.6 Final Current warfarin dose: 1mg daily since 10/22 Description CONTINUE 1mg daily. Recheck INR in 4 weeks. Patient has been very sensitive to warfarin dose adjustments. Warfarin was previously decreased 07/16/20 and INR had been stable. INR was slightly above goal at 3.1 on 10/03. As previous INRs had been at goal, did not make dose adjustment. The patient then contacted the clinic on 10/23 with complaint of bloodshot eye. She denied pain or vision changes. She decreased warfarin to 1mg on 10/22. Gave instructions to continue lower dose of 1mg daily until next INR. Last INR was therapeutic at 2.6 on 10/31. INR today remains therapeutic at 2.6. She has been on 1mg daily for ~1 month. Will continue with same dose with INR re-check in 4 weeks. Reviewed with patient on the phone, patient verbalized understanding. 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 - amoxicillin (POLYMOX, AMOXIL) 500 mg capsule 4 capsules by mouth one hour before the dentist - simvastatin (ZOCOR) 10 mg tablet Take 10 mg by mouth daily at bedtime. - metoprolol tartrate, short acting, (LOPRESSOR) 25 mg tablet Take 1 tablet by mouth every 12 hours. - furosemide (LASIX) 40 mg tablet Take 0.5 tablets by mouth once daily as needed. For weight gain or leg swelling. - acetaminophen (TYLENOL) 325 mg tablet Take 2 tablets by mouth every 4 hours as needed. - ferrous sulfate 325 mg (65 mg iron) tablet Take 1 tablet by mouth twice daily with meals. - melatonin 3 mg tablet Take 1 tablet by mouth at bedtime as needed (insomnia). - ascorbic acid, vitamin C, (VITAMIN C) 500 mg tablet Take 1 tablet by mouth twice daily. - pramipexole (MIRAPEX) 0.25 mg tablet Take 1 tablet by mouth daily at bedtime. - PROAIR HFA 90 mcg/actuation inhaler Inhale 2 Puffs as instructed every 6 hours as needed for Wheezing/Shortness of Breath. - cholestyramine (QUESTRAN) 4 gram packet Take 1 Packet by mouth once daily. - alendronate (FOSAMAX) 70 mg tablet Take 1 tablet by mouth once each week. - Cyanocobalamin (VITAMIN B-12) 1,000 mcg subl Dissolve 1 tablet under the tongue once daily. - calcium carbonate (CALTRATE) 600 mg calcium (1,500 mg) tab Take 600 mg by mouth once daily. - gabapentin (NEURONTIN) 100 mg capsule Take 200 mg by mouth daily at bedtime. - Biotin-Silicon Qygl-R-Hqbdxikt 5,000 mcg-100 mg- 50 mg tab Take 1 tablet by mouth once daily. - Cholecalciferol, Vitamin D3, 1,000 unit cap Take 1,000 Units by mouth once daily. 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 Normal [facility] SCREENING W TOMOon 11-20 [facility] SCREENING W ADINA * * *Final Report* * * DATE OF EXAM: Nov 20 2020 2:32PM [id number] [id number] - [facility] SCREENING W ADINA / PROCEDURE REASON: SCREENING * * * * Physician Interpretation * * * * #[id number] - [facility] SCREENING W ADINA BILATERAL DIGITAL SCREENING MAMMOGRAM TOMOSYNTHESIS WITH CAD: 11/20/2020 HISTORY: Screening / Screening Mammogram-Patient reports NO symptoms. RESULT: TECHNIQUE: The study was acquired using full field digital technology and interpreted from soft copy. Digital Breast Tomosynthesis (DBT) images were obtained and used to assist in the interpretation of this examination. Current study was also evaluated with a Computer Aided Detection (CAD). Comparison is made to exams dated: 09/27/2019 mammogram, 09/22/2018 mammogram, and 08/12/2017 mammogram - [facility]. There are scattered fibroglandular elements in both breasts. There is a biopsy clip in the right breast. No significant masses, calcifications, or other findings are seen in either breast. There has been no significant interval change. IMPRESSION: NEGATIVE There is no mammographic evidence of malignancy. A 1 year screening mammogram is recommended. Cayla hector/hema:11/21/2020 08:02:24 Metalworking Instructor(s): Manuel Mckeon, [facility] letter sent: Normal over 40 Mammogram BI-RADS: 1 Negative Multiple national specialty organizations have released breast cancer screening guidelines for women at average risk for developing breast cancer - guidelines that are based on both evidence and opinion, yet differ on when to start and how often to screen for breast cancer. With representation from Breast Imaging, Internal Medicine, Women's Health, Family Medicine, and Medical/Surgical Oncology, the [facility] has carefully reviewed the data and reached the following consensus: 1) All women should engage in shared decision-making with their providers to decide when to start and how often to screen; 2) All women should have the opportunity to start screening mammography at age 40; 3) For women ages 45-55, we recommend annual screening mammograms; 4) For women ages 55 and over, we support both the transition from an annual to a biennial interval if this aligns more with patient's values and preferences, or continuation with annual screening; 5) All women should discuss with their providers when to stop screening mammograms. 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: Hema Transcribe Date/Time: Nov 20 2020 2:03P Dictated by : CAYLA GASCA MD This examination was interpreted and the report reviewed and electronically signed by: CAYLA GASCA MD on Nov 21 2020 8:02AM EST [id number] Normal [facility] SCREENING W TOMOon 09-26 [facility] SCREENING W ADINA * * *Final Report* * * DATE OF EXAM: Sep 27 2019 2:12PM [id number] - [facility] SCREENING W ADINA / PROCEDURE REASON: mammogram * * * * Physician Interpretation * * * * #[id number] - [facility] SCREENING W ADINA BILATERAL DIGITAL SCREENING MAMMOGRAM TOMOSYNTHESIS WITH CAD: 09/27/2019 HISTORY: Mammogram /Screening Mammogram-patient reports no symptoms. RESULT: TECHNIQUE: The study was acquired using full field digital technology and interpreted from soft copy. Digital Breast Tomosynthesis (DBT) images were obtained and used to assist in the interpretation of this examination. Current study was also evaluated with a Computer Aided Detection (CAD). Comparison is made to exams dated: 09/22/2018 mammogram, 08/12/2017 mammogram - [facility], and 08/11/2016 mammogram - [facility]. There are scattered fibroglandular elements in both breasts. There is a biopsy clip in the right breast. No significant masses, calcifications, or other findings are seen in either breast. There has been no significant interval change. IMPRESSION: NEGATIVE There is no mammographic evidence of malignancy. A 1 year screening mammogram is recommended. Cayla hector/hema:09/27/2019 14:26:35 Metalworking Instructor(s): Manuel Mckeon, [employer] letter sent: Normal over 40 Mammogram BI-RADS: 1 Negative Multiple national specialty organizations have released breast cancer screening guidelines for women at average risk for developing breast cancer - guidelines that are based on both evidence and opinion, yet differ on when to start and how often to screen for breast cancer. With representation from Breast Imaging, Internal Medicine, Women's Health, Family Medicine, and Medical/Surgical Oncology, the [facility] has carefully reviewed the data and reached the following consensus: 1) All women should engage in shared decision-making with their providers to decide when to start and how often to screen; 2) All women should have the opportunity to start screening mammography at age 40; 3) For women ages 45-55, we recommend annual screening mammograms; 4) For women ages 55 and over, we support both the transition from an annual to a biennial interval if this aligns more with patient's values and preferences, or continuation with annual screening; 5) All women should discuss with their providers when to stop screening mammograms. 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: Hema Transcribe Date/Time: Sep 27 2019 1:45P Dictated by : CAYLA GASCA MD This examination was interpreted and the report reviewed and electronically signed by: CAYLA GASCA MD on Sep 27 2019 2:26PM EST Normal [facility] Vital Signs Date Time Vital Sign Value Performing Clinician Facility 12-01-2024 11:25-0400 Body height 157.48 cm LOREE PENAGLIIF Work Phone: [facility] 12-01-2024 11:18-0400 Body weight 60.32 kg LOREE PENARO Work Phone: [facility] 12-01-2024 11:18-0400 Diastolic blood pressure 75 mm[Hg] LOREE KENYETTAAURO Work Phone: [facility] 12-01-2024 11:18-0400 Heart rate 65 /min LOREE KENYETTAAURO Work Phone: [facility] 12-01-2024 11:18-0400 Respiratory rate 16 /min LOREE KUMARIAURO Work Phone: [facility] 12-01-2024 11:18-0400 Systolic blood pressure 130 mm[Hg] LOREE KENYETTAAURO Work Phone: [facility] 09-14-2024 10:11-0400 Body temperature 97.1 [degF] Samantha Anglin MD Work Phone: [facility] 09-14-2024 10:11-0400 Diastolic blood pressure 66 mm[Hg] Samantha Anglin MD Work Phone: [facility] 09-14-2024 10:11-0400 Heart rate 62 /min Samantha Anglin MD Work Phone: [facility] 09-14-2024 10:11-0400 Respiratory rate 16 /min Samantha Anglin MD Work Phone: [facility] 09-14-2024 10:11-0400 SaO2% (BldA) [Mass fraction] 97 % Samantha Anglin MD Work Phone: [facility] 09-14-2024 10:11-0400 Systolic blood pressure 141 mm[Hg] Samantha Anglin MD Work Phone: [facility] 09-14-2024 06:47-0400 Body height 157.48 cm Samantha Anglin MD Work Phone: [facility] 09-14-2024 06:47-0400 Body mass index (BMI) [Ratio] 24.4 kg/m2 Samantha Anglin MD Work Phone: [facility] 09-14-2024 06:47-0400 Body weight 60.6 kg Samantha Anglin MD Work Phone: [facility] 08-31-2024 22:02-0400 Body mass index (BMI) [Ratio] 26.7 kg/m2 Samantha Anglin MD Work Phone: [facility] 08-01-2024 22:43-0400 Body mass index (BMI) [Ratio] 26.7 kg/m2 Samantha Anglin MD Work Phone: [facility] 08-01-2024 08:09-0400 Body height 157.48 cm Samantha Anglin MD Work Phone: [facility] 08-01-2024 08:09-0400 Body mass index (BMI) [Ratio] 25.7 kg/m2 Samantha Anglin MD Work Phone: [facility] 08-01-2024 08:09-0400 Body temperature 97.4 [degF] Samantha Anglin MD Work Phone: [facility] 08-01-2024 08:09-0400 Body weight 63.67 kg Samantha Anglin MD Work Phone: [facility] 08-01-2024 08:09-0400 Diastolic blood pressure 73 mm[Hg] Samantha Anglin MD Work Phone: [facility] 08-01-2024 08:09-0400 Heart rate 69 /min Samantha Anglin MD Work Phone: [facility] 08-01-2024 08:09-0400 Respiratory rate 18 /min Samantha Anglin MD Work Phone: [facility] 08-01-2024 08:09-0400 SaO2% (BldA) [Mass fraction] 98 % Samantha Anglin MD Work Phone: [facility] 08-01-2024 08:09-0400 Systolic blood pressure 138 mm[Hg] Samantha Anglin MD Work Phone: [facility] 07-02-2024 07:29-0500 Body mass index (BMI) [Ratio] 26.7 kg/m2 Samantha Anglin MD Work Phone: [facility] 06-04-2024 04:37-0500 Body mass index (BMI) [Ratio] 26.7 kg/m2 Samantha Anglin MD Work Phone: [facility] 06-02-2024 10:24-0500 Body mass index (BMI) [Ratio] 25.4 kg/m2 Samantha Anglin MD Work Phone: [facility] 06-02-2024 10:24-0500 Body weight 63.04 kg Samantha Anglin MD Work Phone: [facility] 06-02-2024 10:24-0500 Diastolic blood pressure 82 mm[Hg] Samantha Anglin MD Work Phone: [facility] 06-02-2024 10:24-0500 Heart rate 80 /min Samantha Anglin MD Work Phone: [facility] 06-02-2024 10:24-0500 Respiratory rate 18 /min Samantha Anglin MD Work Phone: [facility] 06-02-2024 10:24-0500 SaO2% (BldA) [Mass fraction] 96 % Samantha Anglin MD Work Phone: [facility] 06-02-2024 10:24-0500 Systolic blood pressure 131 mm[Hg] Samantha Anglin MD Work Phone: [facility] 05-04-2024 04:45-0500 Body mass index (BMI) [Ratio] 26.7 kg/m2 Samantha Anglin MD Work Phone: [facility] 04-03-2024 01:14-0500 Body mass index (BMI) [Ratio] 26.7 kg/m2 Samantha Anglin MD Work Phone: [facility] 09-10-2023 10:35-0400 Body temperature 97 [degF] Dr. Denise Vallecillo Work Phone: [facility] 09-10-2023 10:35-0400 Diastolic blood pressure 65 mm[Hg] Dr. Denise Vallecillo Work Phone: [facility] 09-10-2023 10:35-0400 Heart rate 62 /min Dr. Denise Vallecillo Work Phone: [facility] 09-10-2023 10:35-0400 Respiratory rate 16 /min Dr. Denise Vallecillo Work Phone: [facility] 09-10-2023 10:35-0400 SaO2% (BldA) [Mass fraction] 98 % Dr. Denise Vallecillo Work Phone: [facility] 09-10-2023 10:35-0400 Systolic blood pressure 117 mm[Hg] Dr. Denise Vallecillo Work Phone: [facility] 09-10-2023 08:51-0400 Body height 157.[address] Denise Vallecillo Work Phone: [facility] 09-10-2023 08:51-0400 Body mass index (BMI) [Ratio] 25.9 kg/m2 Dr. Denise Vallecillo Work Phone: [facility] 09-10-2023 08:51-0400 Body weight 64.[address] Denise Vallecillo Work Phone: [facility] 08-05-2023 09:22-0400 Body height 157.[address] Denise Vallecillo Work Phone: [facility] 08-05-2023 09:22-0400 Body mass index (BMI) [Ratio] 26.6 kg/m2 Dr. Denise Vallecillo Work Phone: [facility] 08-05-2023 09:22-0400 Body weight 66.[address] Denise Vallecillo Work Phone: [facility] 08-05-2023 09:22-0400 Diastolic blood pressure 78 mm[Hg] Dr. Denise Vallecillo Work Phone: [facility] 08-05-2023 09:22-0400 Heart rate 67 /min Dr. Denise Vallecillo Work Phone: [facility] 08-05-2023 09:22-0400 Respiratory rate 17 /min Dr. Denise Vallecillo Work Phone: [facility] 08-05-2023 09:22-0400 SaO2% (BldA) [Mass fraction] 93 % Dr. Denise Vallecillo Work Phone: [facility] 08-05-2023 09:22-0400 Systolic blood pressure 122 mm[Hg] Dr. Denise Vallecillo Work Phone: [facility] 08-02-2023 01:13-0400 Body mass index (BMI) [Ratio] 26.7 kg/m2 Dr. Denise Vallecillo Work Phone: [facility] 07-03-2023 15:06-0500 Body height 157.[address] Denise Vallecillo Work Phone: [facility] 07-03-2023 15:06-0500 Body weight 67.[address] Denise Vallecillo Work Phone: [facility] 07-03-2023 10:07-0500 Body temperature 98.7 [degF] Dr. Denise Valleclilo Work Phone: [facility] 07-03-2023 10:07-0500 Diastolic blood pressure 45 mm[Hg] Dr. Denise Vallecillo Work Phone: [facility] 07-03-2023 10:07-0500 Heart rate 62 /min Dr. Denise Vallecillo Work Phone: [facility] 07-03-2023 10:07-0500 Respiratory rate 16 /min Dr. Denise Vallecillo Work Phone: [facility] 07-03-2023 10:07-0500 SaO2% (BldA) [Mass fraction] 97 % Dr. Denise Vallecillo Work Phone: [facility] 07-03-2023 10:07-0500 Systolic blood pressure 123 mm[Hg] Dr. Denise Vallecillo Work Phone: [facility] 07-03-2023 00:08-0500 Body mass index (BMI) [Ratio] 26.7 kg/m2 Dr. Denise Vallecillo Work Phone: [facility] 07-02-2023 23:41-0500 Body temperature 98.2 [degF] Dr. Denise Vallecillo Work Phone: 1(929)[phone] [place] [address] 07-02-2023 23:41-0500 Diastolic blood pressure 60 mm[Hg] Dr. Denise Vallecillo Work Phone: [facility] 07-02-2023 23:41-0500 Heart rate 66 /min Dr. Denise Vallecillo Work Phone: [facility] 07-02-2023 23:41-0500 Respiratory rate 18 /min Dr. Denise Vallecillo Work Phone: [facility] 07-02-2023 23:41-0500 SaO2% (BldA) [Mass fraction] 98 % Dr. Denise Vallecillo Work Phone: [facility] 07-02-2023 23:41-0500 Systolic blood pressure 108 mm[Hg] Dr. Denise Vallecillo Work Phone: [facility] 07-02-2023 16:29-0500 Body height 157.[address] Denise Vallecillo Work Phone: [facility] 07-02-2023 16:29-0500 Body mass index (BMI) [Ratio] 27 kg/m2 Dr. Denise Vallecillo Work Phone: [facility] 07-02-2023 16:29-0500 Body weight 67.[address] Denise Vallecillo Work Phone: [facility] 07-02-2023 15:39-0500 Diastolic blood pressure 63 mm[Hg] Dr. Denise Vallecillo Work Phone: [facility] 07-02-2023 15:39-0500 Heart rate 64 /min Dr. Denise Vallecillo Work Phone: [facility] 07-02-2023 15:39-0500 Respiratory rate 18 /min Dr. Denise Vallecillo Work Phone: [facility] 07-02-2023 15:39-0500 SaO2% (BldA) [Mass fraction] 98 % Dr. Denise Vallecillo Work Phone: [facility] 07-02-2023 15:39-0500 Systolic blood pressure 116 mm[Hg] Dr. Denise Vallecillo Work Phone: [facility] 07-02-2023 14:18-0500 Body temperature 98.3 [degF] Dr. Denise Vallecillo Work Phone: [facility] 07-02-2023 11:39-0500 Body height 157.[address] Denise Vallecillo Work Phone: [facility] 07-02-2023 11:39-0500 Body mass index (BMI) [Ratio] 27.3 kg/m2 Dr. Denise Vallecillo Work Phone: [facility] 07-02-2023 11:39-0500 Body weight 67.[address] Denise Vallecillo Work Phone: [facility] 06-03-2023 23:29-0500 Body mass index (BMI) [Ratio] 26.7 kg/m2 Dr. Denise Vallecillo Work Phone: 4(145)[phone] [place] [address] 05-03-2023 23:17-0500 Body mass index (BMI) [Ratio] 26.7 kg/m2 Dr. Denise Vallecillo Work Phone: 1(253)877-460099 [place] [address] 04-06-2023 09:17-0500 Body height 157.[address] Denise Vallecillo Work Phone: 0(327)748-554199 [place] [address] 04-06-2023 09:17-0500 Body mass index (BMI) [Ratio] 26.9 kg/m2 Dr. Denise Vallecillo Work Phone: 4(649)659-545399 [place] [address] 04-06-2023 09:17-0500 Body weight 66.[address] Denise Vallecillo Work Phone: 2(790)695-177999 [place] [address] 04-06-2023 09:17-0500 Diastolic blood pressure 68 mm[Hg] Dr. Denise Vallecillo Work Phone: 9(830)499-176099 [place] [address] 04-06-2023 09:17-0500 Heart rate 72 /min Dr. Denise Vallecillo Work Phone: 5(800)810-834999 [place] [address] 04-06-2023 09:17-0500 Respiratory rate 18 /min Dr. Denise Vallecillo Work Phone: 1(197)858-408899 [place] [address] 04-06-2023 09:17-0500 Systolic blood pressure 122 mm[Hg] Dr. Denise Vallecillo Work Phone: 6(451)440-603899 [place] [address] 04-03-2023 04:00-0500 Body mass index (BMI) [Ratio] 26.7 kg/m2 Dr. Denise Vallecillo Work Phone: 0(189)896-239799 [place] [address] 03-03-2023 22:39-0400 Body mass index (BMI) [Ratio] 26.7 kg/m2 Dr. Denise [place] Work Phone: [phone] [place] [address] 02-01-2023 04:17-0400 Body mass index (BMI) [Ratio] 26.7 kg/m2 Dr. Real Gibson Work Phone: [facility] 01-01-2023 23:25-0400 Body mass index (BMI) [Ratio] 26.7 kg/m2 Dr. Real Gibson Work Phone: [facility] 12-02-2022 01:06-0400 Body mass index (BMI) [Ratio] 26.7 kg/m2 [facility] 10-31-2022 22:45-0400 Body mass index (BMI) [Ratio] 26.7 kg/m2 [facility] 10-02-2022 14:31-0400 Body height 157.48 cm [facility] 10-02-2022 14:31-0400 Body mass index (BMI) [Ratio] 26.2 kg/m2 [facility] 10-02-2022 14:31-0400 Body weight 65.03 kg [facility] 10-02-2022 14:31-0400 Diastolic blood pressure 66 mm[Hg] [facility] 10-02-2022 14:31-0400 Heart rate 64 /min [facility] 10-02-2022 14:31-0400 Respiratory rate 16 /min [facility] 10-02-2022 14:31-0400 Systolic blood pressure 123 mm[Hg] [facility] 10-02-2022 08:21-0400 Body mass index (BMI) [Ratio] 26.7 kg/m2 [facility] 08-31-2022 02:14-0400 Body mass index (BMI) [Ratio] 26.7 kg/m2 [facility] 08-02-2022 00:01-0400 Body mass index (BMI) [Ratio] 26.7 kg/m2 [facility] 07-01-2022 22:46-0500 Body mass index (BMI) [Ratio] 26.7 kg/m2 No Primary Care Physician [facility] 06-10-2022 13:05-0500 Body weight 67.59 kg Cameron Coyle MD Work Phone: [facility] 06-10-2022 13:05-0500 Diastolic blood pressure 72 mm[Hg] Cameron Coyle MD Work Phone: [facility] 06-10-2022 13:05-0500 Heart rate 79 /min Cameron Coyle MD Work Phone: [facility] 06-10-2022 13:05-0500 Systolic blood pressure 122 mm[Hg] Cameron Coyle MD Work Phone: [facility] 06-04-2022 08:28-0500 Body mass index (BMI) [Ratio] 26.7 kg/m2 No Primary Care Physician [facility] 05-04-2022 05:19-0500 Body mass index (BMI) [Ratio] 26.7 kg/m2 No Primary Care Physician [facility] 04-24-2022 14:00-0500 Diastolic blood pressure 91 mm[Hg] No Primary Care Physician [facility] 04-24-2022 14:00-0500 Heart rate 95 /min No Primary Care Physician [facility] 04-24-2022 14:00-0500 Respiratory rate 14 /min No Primary Care Physician [facility] 04-24-2022 14:00-0500 SaO2% (BldA) [Mass fraction] 94 % No Primary Care Physician [facility] 04-24-2022 14:00-0500 Systolic blood pressure 146 mm[Hg] No Primary Care Physician [facility] 04-18-2022 09:26-0500 Body height 157.48 cm No Primary Care Physician [facility] 04-18-2022 09:26-0500 Body mass index (BMI) [Ratio] 27.4 kg/m2 No Primary Care Physician [facility] 04-18-2022 09:26-0500 Body weight 68.03 kg No Primary Care Physician [facility] 04-18-2022 09:26-0500 Diastolic blood pressure 64 mm[Hg] No Primary Care Physician [facility] 04-18-2022 09:26-0500 Heart rate 89 /min No Primary Care Physician [facility] 04-18-2022 09:26-0500 Respiratory rate 18 /min No Primary Care Physician [facility] 04-18-2022 09:26-0500 SaO2% (BldA) [Mass fraction] 94 % No Primary Care Physician [facility] 04-18-2022 09:26-0500 Systolic blood pressure 117 mm[Hg] No Primary Care Physician [facility] 04-03-2022 00:47-0500 Body mass index (BMI) [Ratio] 26.7 kg/m2 No Primary Care Physician [facility] 03-04-2022 10:01-0400 Body mass index (BMI) [Ratio] 26.7 kg/m2 No Primary Care Physician [facility] 01-31-2022 23:27-0400 Body mass index (BMI) [Ratio] 26.7 kg/m2 Dr. Polo Falk Work Phone: [facility] 01-02-2022 00:19-0400 Body mass index (BMI) [Ratio] 26.7 kg/m2 Dr. Polo Ruiz Work Phone: [facility] Work Phone: 12-16-2021 11:19-0400 Body height 157.[address] Polo Ruiz Work Phone: [facility] Work Phone: 12-16-2021 11:19-0400 Body mass index (BMI) [Ratio] 29.8 kg/m2 Dr. Polo Ruiz Work Phone: [facility] Work Phone: 12-16-2021 11:19-0400 Body weight 73.[address] Polo Ruiz Work Phone: [facility] Work Phone: 12-16-2021 11:19-0400 Diastolic blood pressure 74 mm[Hg] Dr. Polo Ruiz Work Phone: [facility] Work Phone: 12-16-2021 11:19-0400 Heart rate 80 /min Dr. Polo Ruiz Work Phone: [facility] Work Phone: 12-16-2021 11:19-0400 Respiratory rate 18 /min Dr. Polo Ruiz Work Phone: [facility] Work Phone: 12-16-2021 11:19-0400 SaO2% (BldA) [Mass fraction] 97 % Dr. Polo Ruiz Work Phone: [facility] Work Phone: 12-16-2021 11:19-0400 Systolic blood pressure 120 mm[Hg] Dr. Polo Ruiz Work Phone: [facility] Work Phone: 12-01-2021 02:59-0400 Body mass index (BMI) [Ratio] 26.7 kg/m2 Dr. Polo Ruzi Work Phone: [facility] Work Phone: 11-01-2021 07:42-0400 Body mass index (BMI) [Ratio] 26.7 kg/m2 Dr. Polo Ruiz Work Phone: [facility] Work Phone: 10-21-2021 16:27-0400 Body temperature 96.3 [degF] MEDICINE ASSISTANT-C Brittany Cunha MEDICINE ASSISTANT Work Phone: [facility] Work Phone: 10-21-2021 16:27-0400 Diastolic blood pressure 42 mm[Hg] MEDICINE ASSISTANT-C Brittany Cunha MEDICINE ASSISTANT Work Phone: [facility] Work Phone: 10-21-2021 16:27-0400 Heart rate 74 /min MEDICINE ASSISTANT-Mela Cunha MEDICINE ASSISTANT Work Phone: [facility] Work Phone: 10-21-2021 16:27-0400 Respiratory rate 18 /min MEDICINE ASSISTANT-Mela Cunha MEDICINE ASSISTANT Work Phone: [facility] Work Phone: 10-21-2021 16:27-0400 SaO2% (BldA) [Mass fraction] 97 % MEDICINE ASSISTANT-C Brittany Cunha MEDICINE ASSISTANT Work Phone: [facility] Work Phone: 10-21-2021 16:27-0400 Systolic blood pressure 107 mm[Hg] MEDICINE ASSISTANT-C Brittany Cunha MEDICINE ASSISTANT Work Phone: [facility] Work Phone: 10-21-2021 05:29-0400 Inhaled oxygen concentration 21 % MEDICINE ASSISTANT-C Brittany Cunha MEDICINE ASSISTANT Work Phone: [facility] Work Phone: 10-16-2021 14:18-0400 Body height 157.48 cm MEDICINE ASSISTANT-C Brittany Cunha MEDICINE ASSISTANT Work Phone: [facility] Work Phone: 10-16-2021 14:18-0400 Body weight 142.24 kg MEDICINE ASSISTANT-C Brittany Cunha MEDICINE ASSISTANT Work Phone: [facility] Work Phone: 10-14-2021 10:00-0400 Heart rate 87 /min MEDICINE ASSISTANT-C Brittany Cunha MEDICINE ASSISTANT Work Phone: [facility] Work Phone: 10-14-2021 10:00-0400 Respiratory rate 18 /min MEDICINE ASSISTANT-C Brittany Cunha MEDICINE ASSISTANT Work Phone: [facility] Work Phone: 10-14-2021 04:48-0400 Inhaled oxygen concentration 21 % MEDICINE ASSISTANT-C Brittany Cunha MEDICINE ASSISTANT Work Phone: [facility] Work Phone: 10-13-2021 23:00-0400 SaO2% (BldA) [Mass fraction] 98 % MEDICINE ASSISTANT-C Brittany Cunha MEDICINE ASSISTANT Work Phone: [facility] Work Phone: 10-13-2021 14:58-0400 Body temperature 97.2 [degF] MEDICINE ASSISTANT-C Brittany Cunha MEDICINE ASSISTANT Work Phone: [facility] Work Phone: 10-13-2021 14:58-0400 Diastolic blood pressure 46 mm[Hg] MEDICINE ASSISTANT-C Brittany Cunha MEDICINE ASSISTANT Work Phone: [facility] Work Phone: 10-13-2021 14:58-0400 Systolic blood pressure 99 mm[Hg] MEDICINE ASSISTANT-C Brittany Cunha MEDICINE ASSISTANT Work Phone: [facility] Work Phone: 10-09-2021 12:24-0400 Body height 157.48 cm MEDICINE ASSISTANT-C Brittany Cunha MEDICINE ASSISTANT Work Phone: [facility] Work Phone: 10-09-2021 12:24-0400 Body weight 73.48 kg MEDICINE ASSISTANT-C Brittany Cunha MEDICINE ASSISTANT Work Phone: [facility] Work Phone: 10-08-2021 18:53-0400 Body mass index (BMI) [Ratio] 29.6 kg/m2 MEDICINE ASSISTANT-C Brittany Cunha MEDICINE ASSISTANT Work Phone: [facility] Work Phone: 10-08-2021 13:59-0400 Body temperature 98.3 [degF] MEDICINE ASSISTANT-C Brittany Cunha MEDICINE ASSISTANT Work Phone: [facility] Work Phone: 10-08-2021 13:59-0400 Diastolic blood pressure 55 mm[Hg] MEDICINE ASSISTANT-C Brittany Cunha MEDICINE ASSISTANT Work Phone: [facility] Work Phone: 10-08-2021 13:59-0400 Heart rate 88 /min MEDICINE ASSISTANT-C Brittany Cunha MEDICINE ASSISTANT Work Phone: [facility] Work Phone: 10-08-2021 13:59-0400 Respiratory rate 16 /min MEDICINE ASSISTANT-C Brittany Cunha MEDICINE ASSISTANT Work Phone: [facility] Work Phone: 10-08-2021 13:59-0400 SaO2% (BldA) [Mass fraction] 98 % MEDICINE ASSISTANT-C Brittany Cunha MEDICINE ASSISTANT Work Phone: [facility] Work Phone: 10-08-2021 13:59-0400 Systolic blood pressure 115 mm[Hg] MEDICINE ASSISTANT-C Brittany Cunha MEDICINE ASSISTANT Work Phone: [facility] Work Phone: 10-08-2021 06:00-0400 Body weight 73.9 kg MEDICINE ASSISTANT-C Brittany Cunha MEDICINE ASSISTANT Work Phone: [facility] Work Phone: 10-08-2021 03:15-0400 Inhaled oxygen concentration 21 % MEDICINE ASSISTANT-C Brittany Cunha MEDICINE ASSISTANT Work Phone: [facility] Work Phone: 10-05-2021 23:09-0400 Body mass index (BMI) [Ratio] 28.8 kg/m2 MEDICINE ASSISTANT-C Brittany Cunha MEDICINE ASSISTANT Work Phone: [facility] Work Phone: 10-05-2021 22:57-0400 Body temperature 98 [degF] MEDICINE ASSISTANT-C Brittany Cunha MEDICINE ASSISTANT Work Phone: [facility] Work Phone: 10-05-2021 22:57-0400 Diastolic blood pressure 67 mm[Hg] MEDICINE ASSISTANT-C Brittany Cunha MEDICINE ASSISTANT Work Phone: [facility] Work Phone: 10-05-2021 22:57-0400 Heart rate 77 /min MEDICINE ASSISTANT-C Brittany Cunha MEDICINE ASSISTANT Work Phone: [facility] Work Phone: 10-05-2021 22:57-0400 Respiratory rate 18 /min MEDICINE ASSISTANT-C Brittany Cunha MEDICINE ASSISTANT Work Phone: [facility] Work Phone: 10-05-2021 22:57-0400 SaO2% (BldA) [Mass fraction] 99 % MEDICINE ASSISTANT-C Brittany Cunha MEDICINE ASSISTANT Work Phone: [facility] Work Phone: 10-05-2021 22:57-0400 Systolic blood pressure 134 mm[Hg] MEDICINE ASSISTANT-C Brittany Cunha MEDICINE ASSISTANT Work Phone: [facility] Work Phone: 10-05-2021 19:58-0400 Body height 157.48 cm MEDICINE ASSISTANT-C Brittany Cunha MEDICINE ASSISTANT Work Phone: [facility] Work Phone: 10-05-2021 19:58-0400 Body mass index (BMI) [Ratio] 28.3 kg/m2 MEDICINE ASSISTANT-C Brittany Cunha MEDICINE ASSISTANT Work Phone: [facility] Work Phone: 10-05-2021 19:58-0400 Body weight 70.3 kg MEDICINE ASSISTANT-C Brittany Cunha MEDICINE ASSISTANT Work Phone: [facility] Work Phone: 10-01-2021 21:20-0400 Body mass index (BMI) [Ratio] 26.7 kg/m2 MEDICINE ASSISTANT-C Brittany Cunha MEDICINE ASSISTANT Work Phone: [facility] Work Phone: 09-01-2021 04:45-0400 Body mass index (BMI) [Ratio] 26.7 kg/m2 Karla Hong [facility] Work Phone: 08-05-2021 10:07-0400 Body temperature 97.2 [degF] Lucía Barraza APRN.[employer] Work Phone: [facility] 08-05-2021 10:07-0400 Body weight 70.31 kg Lucía Barraza APRN.[employer] Work Phone: [facility] 08-05-2021 10:07-0400 Diastolic blood pressure 68 mm[Hg] Lucía Barraza APRN.[employer] Work Phone: [facility] 08-05-2021 10:07-0400 Heart rate 84 /min Lucía Barraza APRN.[employer] Work Phone: [facility] 08-05-2021 10:07-0400 Respiratory rate 16 /min Lucía Barraza INSURANCE SALES SUPERVISOR.[employer] Work Phone: [facility] 08-05-2021 10:07-0400 SaO2% (BldA) [Mass fraction] 99 % Lucía Barraza INSURANCE SALES SUPERVISOR.[employer] Work Phone: [facility] 08-05-2021 10:07-0400 Systolic blood pressure 110 mm[Hg] Lucía Barraza INSURANCE SALES SUPERVISOR.[employer] Work Phone: [facility] 08-02-2021 03:37-0400 Body mass index (BMI) [Ratio] 26.7 kg/m2 Karla Hong [facility] Work Phone: 07-09-2021 11:09-0500 Body mass index (BMI) [Ratio] 28.5 kg/m2 MEDICINE ASSISTANT-C Brittany Cunha MEDICINE ASSISTANT Work Phone: [facility] Work Phone: 07-09-2021 11:09-0500 Body weight 70.76 kg MEDICINE ASSISTANT-C Brittany Cunha MEDICINE ASSISTANT Work Phone: [facility] Work Phone: 07-09-2021 11:09-0500 Diastolic blood pressure 64 mm[Hg] MEDICINE ASSISTANT-C Brittany Cunha MEDICINE ASSISTANT Work Phone: [facility] Work Phone: 07-09-2021 11:09-0500 Heart rate 77 /min MEDICINE ASSISTANT-C Brittany Cunha MEDICINE ASSISTANT Work Phone: [facility] Work Phone: 07-09-2021 11:09-0500 Respiratory rate 18 /min MEDICINE ASSISTANT-C Brittany Cunha MEDICINE ASSISTANT Work Phone: [facility] Work Phone: 07-09-2021 11:09-0500 SaO2% (BldA) [Mass fraction] 95 % MEDICINE ASSISTANT-C Brittany Cunha MEDICINE ASSISTANT Work Phone: [facility] Work Phone: 07-09-2021 11:09-0500 Systolic blood pressure 105 mm[Hg] TAN Cunha MEDICINE ASSISTANT Work Phone: [facility] Work Phone: 07-09-2021 10:09-0500 Body height 157.48 cm [facility] Work Phone: 07-09-2021 10:09-0500 Body mass index (BMI) [Ratio] 28.5 kg/m2 [facility] Work Phone: 07-09-2021 10:09-0500 Body weight 70.76 kg [facility] Work Phone: 07-09-2021 10:09-0500 Diastolic blood pressure 64 mm[Hg] [facility] Work Phone: 07-09-2021 10:09-0500 Heart rate 77 /min [facility] Work Phone: 07-09-2021 10:09-0500 Respiratory rate 18 /min [facility] Work Phone: 07-09-2021 10:09-0500 SaO2% (BldA) [Mass fraction] 95 % [facility] Work Phone: 07-09-2021 10:09-0500 Systolic blood pressure 105 mm[Hg] [facility] Work Phone: 07-02-2021 10:26-0500 Body mass index (BMI) [Ratio] 26.7 kg/m2 TAN Cunha MEDICINE ASSISTANT Work Phone: [facility] Work Phone: 07-02-2021 09:26-0500 Body mass index (BMI) [Ratio] 26.7 kg/m2 [facility] Work Phone: 06-06-2021 12:28-0500 Body mass index (BMI) [Ratio] 28.5 kg/m2 [facility] Work Phone: 06-06-2021 12:28-0500 Body weight 70.76 kg [facility] Work Phone: 06-06-2021 12:28-0500 Diastolic blood pressure 72 mm[Hg] [facility] Work Phone: 06-06-2021 12:28-0500 Heart rate 88 /min [facility] Work Phone: 06-06-2021 12:28-0500 Respiratory rate 18 /min [facility] Work Phone: 06-06-2021 12:28-0500 SaO2% (BldA) [Mass fraction] 95 % [facility] Work Phone: 06-06-2021 12:28-0500 Systolic blood pressure 115 mm[Hg] [facility] Work Phone: 06-04-2021 02:18-0500 Body mass index (BMI) [Ratio] 26.7 kg/m2 TAN Cunha NP Work Phone: [facility] Work Phone: 06-04-2021 01:18-0500 Body mass index (BMI) [Ratio] 26.7 kg/m2 [facility] Work Phone: 05-18-2021 19:29-0500 Diastolic blood pressure 64 mm[Hg] [facility] Work Phone: 05-18-2021 19:29-0500 Heart rate 89 /min [facility] Work Phone: 05-18-2021 19:29-0500 Systolic blood pressure 115 mm[Hg] [facility] Work Phone: 05-18-2021 19:21-0500 Body temperature 97.7 [degF] [facility] Work Phone: 05-18-2021 19:21-0500 Respiratory rate 18 /min [facility] Work Phone: 05-18-2021 19:21-0500 SaO2% (BldA) [Mass fraction] 97 % [facility] Work Phone: 05-18-2021 04:13-0500 Body weight 73.1 kg [facility] Work Phone: 05-18-2021 03:20-0500 Body mass index (BMI) [Ratio] 29.5 kg/m2 [facility] Work Phone: 05-09-2021 09:46-0500 Body temperature 97.5 [degF] [facility] Work Phone: 05-09-2021 09:46-0500 Diastolic blood pressure 47 mm[Hg] [facility] Work Phone: 05-09-2021 09:46-0500 Heart rate 59 /min [facility] Work Phone: 05-09-2021 09:46-0500 Respiratory rate 16 /min [facility] Work Phone: 05-09-2021 09:46-0500 SaO2% (BldA) [Mass fraction] 98 % [facility] Work Phone: 05-09-2021 09:46-0500 Systolic blood pressure 105 mm[Hg] [facility] Work Phone: 05-06-2021 15:39-0500 Body mass index (BMI) [Ratio] 27.8 kg/m2 [facility] Work Phone: 05-06-2021 15:39-0500 Body weight 69.1 kg [facility] Work Phone: 05-06-2021 01:29-0500 Body mass index (BMI) [Ratio] 26.7 kg/m2 [facility] Work Phone: 05-06-2021 00:24-0500 Diastolic blood pressure 62 mm[Hg] [facility] Work Phone: 05-06-2021 00:24-0500 Heart rate 60 /min [facility] Work Phone: 05-06-2021 00:24-0500 Respiratory rate 15 /min [facility] Work Phone: 05-06-2021 00:24-0500 SaO2% (BldA) [Mass fraction] 100 % [facility] Work Phone: 05-06-2021 00:24-0500 Systolic blood pressure 110 mm[Hg] [facility] Work Phone: 05-05-2021 17:47-0500 Body mass index (BMI) [Ratio] 28.3 kg/m2 [facility] Work Phone: 05-05-2021 17:47-0500 Body temperature 97.8 [degF] [facility] Work Phone: 05-05-2021 17:47-0500 Body weight 70.3 kg [facility] Work Phone: 04-03-2021 02:44-0500 Body mass index (BMI) [Ratio] 26.7 kg/m2 [facility] Work Phone: Encounters Encounter Date Encounter Type Care Provider Facility Start: [facility] Start: 03-04-2025 ambulatory [facility] Facility:[facility] Start: 02-15-2025 End: 02-15-2025 ambulatory [facility] Facility:[facility] Start: 01-24-2025 End: 01-24-2025 ambulatory LOREE DILAURO Work Phone: -[facility] Start: 01-24-2025 End: 01-24-[address] Real Gibson MD -[facility] Work Phone: Start: 01-18-2025 End: 01-31-[address] Real Gibson MD -Laboratory Work Phone: Start: 01-18-2025 End: 01-31-2025 ambulatory LOREE DILAURO Work Phone: -Laboratory Start: 12-23-2024 End: 12-23-[address] Real Gibson MD -Laboratory Work Phone: Start: 12-23-2024 End: 12-23-2024 ambulatory Samantha Anglin MD Work Phone: -Laboratory Start: 12-01-2024 End: 12-01-2024 ambulatory LOREE DILAURO Work Phone: -Laboratory Start: 12-01-2024 End: 12-01-[address] Real Gibson MD -Laboratory Work Phone: Start: 12-01-2024 End: 12-01-2024 ambulatory LOREE DILAURO Work Phone: -[facility] Start: 12-01-2024 End: 12-01-[address] Real Gibson MD -[facility] Work Phone: Start: 11-09-[address] Real Gibson MD -Laboratory Work Phone: Start: 10-25-2024 End: 10-25-2024 ambulatory Samantha Anglin MD Work Phone: -[facility] Start: 10-25-2024 End: 10-25-[address] Real Gibson MD -[facility] Work Phone: Start: 10-07-2024 End: 10-07-[address] Real Gibson MD -Laboratory Work Phone: Start: 10-07-[address] Real Gibson MD -Laboratory Work Phone: Start: 10-07-2024 End: 10-07-2024 ambulatory Samantha Anglin MD Work Phone: -Laboratory Start: 09-14-2024 ambulatory Chalon Derrek Facility:[facility] Start: 09-14-2024 Non-patient / Non-visit Dr. Avtar Desir MD -[facility] Start: 09-14-2024 ambulatory Chalon Derrek Facility:[facility] Start: 09-14-2024 Non-patient / Non-visit [facility]. Avtar Desir MD -[facility] Start: 09-14-2024 End: 09-14-2024 Admission to same day surgery center Dr. Avtar Desir MD -Endoscopy Work Phone: Start: 09-14-2024 End: 09-14-2024 ambulatory Samantha Anglin MD Work Phone: [facility] Work Phone: Start: 08-25-2024 End: 08-31-2024 ambulatory SHELLY DEBORAH Facility:[facility] Start: 08-25-2024 End: 08-31-[address] Real Gibson MD -Laboratory Work Phone: Start: 08-25-2024 ambulatory Chalon Derrek Facility:[facility] Start: 08-01-2024 End: 08-01-[address] Avtar Desir MD -[facility] Work Phone: Start: 08-01-2024 End: 08-01-2024 ambulatory Chalon Derrek Facility:[facility] Start: 07-29-2024 End: 07-29-2024 ambulatory Samantha Anglin MD Work Phone: [facility] Work Phone: Start: 07-29-2024 End: 07-29-[address] Real Gibson MD -Laboratory Work Phone: Start: 07-25-2024 End: 07-25-2024 ambulatory Real Gibson Facility:[facility] Start: 07-25-2024 End: 07-25-[address] Real Gibson MD -[facility] Work Phone: Start: 06-17-2024 End: 07-01-[address] Real Gibson MD -Laboratory Work Phone: Start: 06-17-2024 End: 07-01-2024 ambulatory Chalon Derrek Facility:[facility] Start: 06-17-2024 Non-patient / Non-visit Dr. Glenda WARD -[facility] Start: 06-17-2024 End: 06-17-2024 Patient encounter procedure Speedy MADDOX -Cardiovascular Services Work Phone: Start: 06-17-2024 End: 06-17-2024 ambulatory Chalon Derrek Facility:[facility] Start: 06-02-2024 End: 06-02-2024 Patient encounter procedure Speedy MADDOX -[facility] Work Phone: Start: 06-02-2024 End: 06-02-2024 ambulatory Chalon Derrek Facility:[facility] Start: 06-02-2024 End: 06-02-[address] Real Gibson MD -Laboratory Work Phone: Start: 05-18-2024 ambulatory Chalon Derrek Facility:[facility] Start: 05-17-2024 End: 05-17-2024 Patient encounter procedure SHELLY CABRERA MD -Laboratory Work Phone: Start: 05-17-2024 End: 05-17-2024 ambulatory Chalon Derrek Facility:[facility] Start: 05-03-2024 End: 05-03-[address] Samantha Anglin MD -Laboratory Work Phone: Start: 05-03-2024 End: 05-03-2024 ambulatory Chalon Derrek Facility:[facility] Start: 04-28-2024 End: 04-28-[address] Real Gibson MD -Laboratory Work Phone: Start: 04-28-2024 End: 04-28-2024 ambulatory Chalon Derrek Facility:[facility] Start: 04-26-2024 End: 04-26-2024 ambulatory Chalon Derrek Facility:[facility] Start: 04-26-2024 End: 04-26-[address] Real Gibson MD -[facility] Work Phone: Start: 04-07-2024 End: 04-07-2024 ambulatory Chalon Derrek Facility:[facility] Start: 04-07-2024 End: 04-07-[address] Samantha Anglin MD -Physical Therapy Work Phone: Start: 03-30-2024 End: 04-02-2024 ambulatory Chalon Derrek Facility:[facility] Start: 03-21-2024 End: 03-21-2024 ambulatory [facility] Facility:[facility] Start: 10-26-2023 End: 10-26-2023 ambulatory RANDI ESCOBAR Not Available Start: 09-10-2023 Non-patient / Non-visit Dr. Jono Vallecillo Work Phone: [facility] Start: 09-10-2023 End: 09-10-2023 Admission to same day surgery center Dr. Denise Vallecillo Work Phone: [facility]-Endoscopy Work Phone: Start: 09-10-2023 End: 09-10-[address] Denise Vallecillo Work Phone: [facility] Work Phone: Start: 08-27-2023 End: 09-01-[address] Denise Vallecillo Work Phone: [facility] Work Phone: Start: 08-27-2023 End: 09-01-[address] Denise Vallecillo [facility]: Start: 08-05-2023 End: 08-05-[address] Denise Vallecillo Work Phone: [facility] Work Phone: Start: 07-30-2023 End: 07-30-[address] Denise Vallecillo Work Phone: [place] [facility] Work Phone: Start: 07-27-2023 End: 08-02-[address] Denise Vallecillo Work Phone: [facility] Work Phone: Start: 07-27-2023 End: 08-02-[address] Denise Vallecillo [facility] Phone: [facility] Work [facility]: Start: 07-13-[address] Cherrie Vallecillo Work Phone: [facility] Work [facility]: Start: 07-09-2023 End: 07-09-[address] Denise Vallecillo Work Phone: [facility] Work Phone: Start: 07-09-2023 End: 07-09-[address] Denise Vallecillo Work Phone: [facility] Start: 07-03-2023 Non-patient / Non-visit Dr. Jono Vallecillo Work Phone: [facility] Work Phone: Start: 07-02-2023 Non-patient / Non-visit Dr. Jono Vallecillo Work Phone: [facility] Work Phone: Start: 07-02-2023 End: 07-03-2023 Evaluation and management of inpatient Dr. Denise Vallecillo Work Phone: [facility] Work Phone: Start: 06-30-2023 End: 07-02-[address] Denise Vallecillo Work Phone: [facility] Work Phone: Start: 06-30-2023 End: 07-02-[address] Denise Vallecillo Work Phone: [facility] Work [facility]: Start: 06-30-[address] Cherrie Vallecillo Work Phone: [facility] Work Phone: Start: 06-02-2023 End: 06-02-[address] Denise Vallecillo Work Phone: [facility] Work Phone: Start: 06-02-2023 End: 06-02-[address] Denise Vallecillo Work Phone: [facility] Work Phone: Start: 04-13-2023 End: 05-03-[address] Denise Vallecillo Work Phone: [facility] Work Phone: Start: 04-13-2023 End: 05-03-[address] Denise Vallecillo Work Phone: [facility] Work [facility]: Start: 04-06-2023 End: 04-07-2023 ambulatory [facility] Start: 04-06-2023 End: 04-06-[address] Denise Vallecillo Work Phone: [facility] Work Phone: Start: 03-25-2023 End: 03-25-[address] Denise Vallecillo Work Phone: [facility] Work Phone: Start: 03-23-2023 End: 04-02-[address] Denise Vallecillo Work Phone: [facility] Work [facility]: Start: 03-02-2023 End: 03-02-[address] Real Gibson Work Phone: [facility] Work Phone: Start: 03-02-2023 End: 03-02-[address] Real Gibson Work Phone: [facility] Work [facility]: Start: 01-29-2023 End: 01-29-[address] Real Gibson Work Phone: [facility] Work Phone: Start: 01-29-2023 End: 01-29-[address] Real Gibson Work Phone: [facility] Work [facility]: Start: 01-29-2023 End: 01-29-[address] Denise Vallecillo Work Phone: [facility] Work Phone: Start: 01-22-2023 End: 01-22-[address] Real Gibson Work Phone: [facility]-Outpatient Bone Densitometry Work Phone: Start: 12-22-2022 End: 12-22-2022 ambulatory [facility] Work Phone: Start: 12-22-2022 End: 12-22-2022 Discharged Recurring [facility] Work Phone: Start: 12-22-2022 Registered Recurring [facility] Work Phone: Start: 12-22-2022 End: 12-22-2022 ambulatory [facility] Work Phone: Start: 12-22-2022 End: 12-22-2022 Patient encounter procedure [facility]-Outpatient Breast Imaging Work Phone: Start: 11-27-2022 End: 12-01-2022 ambulatory [facility] Work Phone: Start: 11-27-2022 End: 12-01-2022 Discharged Recurring [facility] Work Phone: Start: 11-27-2022 Non-patient / Non-visit SAROJ WAYNE BERNARDA [facility] Start: 11-27-2022 End: 11-27-2022 ambulatory [facility] Work Phone: Start: 11-27-2022 End: 11-27-2022 Patient encounter procedure [facility]-Cardiovascular Services Work Phone: Start: 10-27-2022 End: 10-27-2022 Discharged Recurring [facility] Work Phone: Start: 10-24-2022 End: 10-24-2022 Patient encounter procedure [facility] Work Phone: Start: 10-02-2022 End: 10-02-2022 Patient encounter procedure SAROJADRIÁN VALLECILLO [facility] Work Phone: Start: 09-26-2022 End: 09-26-2022 ambulatory [facility] Work Phone: Start: 09-26-2022 End: 09-26-2022 Discharged Recurring [facility] Start: 08-29-2022 End: 08-31-2022 ambulatory [facility] Work Phone: Start: 08-29-2022 End: 08-31-2022 Discharged Recurring [facility] Start: 08-01-2022 End: 08-02-2022 ambulatory No Primary Care Physician [facility] Work Phone: Start: 08-01-2022 End: 08-02-2022 Discharged Recurring No Primary Care Physician [facility]Laboratory Start: 07-14-2022 End: 07-14-2022 Patient encounter procedure No Primary Care Physician [facility] Start: 07-11-2022 Registered Recurring No Primar y Care Physician [facility] Start: 06-27-2022 End: 06-27-2022 ambulatory No Primary Care Physician [facility] Work Phone: Start: 06-27-2022 End: 06-27-2022 Discharged Recurring No Primary Care Physician [facility]Labor[facility] Start: 06-10-2022 End: 06-10-2022 ambulatory CAMERON COYLE [facility] Start: 06-10-2022 End: 06-10-2022 Office outpatient new 45 minutes Cameron Coyle MD Work Phone: [facility] Comment on above: Lumbar stenosis with neurogenic claudication (Primary Dx) Start: 05-30-2022 End: 05-30-2022 ambulatory No Primary Care Physician [facility] Work Phone: Start: 05-30-2022 End: 05-30-2022 Discharged Recurring No Primary Care Physician [facility] Start: 05-06-2022 Registered Recurring No Primar y Care Physician [facility] Start: 05-01-2022 End: 05-01-2022 ambulatory No Primary Care Physician [facility] Work Phone: Start: 05-01-2022 End: 05-01-2022 Patient encounter procedure No Primary Care Physician [facility]-Laboratory, Specimen Start: 04-30-2022 End: 04-30-2022 ambulatory No Primary Care Physician [facility] Work Phone: Start: 04-30-2022 End: 04-30-2022 Patient encounter procedure No Primary Care Physician [facility]-Laboratory, [place] Start: 04-30-2022 End: 04-30-2022 Patient encounter procedure No Primary Care Physician [facility] Start: 04-29-2022 Non-patient / Non-visit No Carmina john Care Physician [facility] Start: 04-24-2022 End: 04-24-2022 ambulatory No Primary Care Physician [facility] Work Phone: Start: 04-24-2022 End: 04-24-2022 Patient encounter procedure No Primary Care Physician [facility] Start: 04-22-2022 End: 04-22-2022 ambulatory No Primary Care Physician [facility] Work Phone: Start: 04-22-2022 End: 04-22-2022 Discharged Recurring No Primary Care Physician [facility]-Laboratory Start: 04-18-2022 End: 04-18-2022 Patient encounter procedure No Primary Care Physician [facility] Start: 04-11-2022 End: 04-11-2022 ambulatory No Primary Care Physician [facility] Work Phone: Start: 04-11-2022 End: 04-11-2022 Discharged Recurring No Primary Care Physician [facility]-Physical Therapy Start: 04-08-2022 Registered Recurring No Primar y Care Physician [facility]Laboratory Start: 04-02-2022 End: 04-02-2022 Discharged Recurring No Primary Care Physician [facility]Labor[facility] Start: 03-03-2022 Registered Recurring No Primar y Care Physician [facility]-Physical Therapy Start: 02-28-2022 End: 03-03-2022 ambulatory No Primary Care Physician [facility] Work Phone: Start: 02-28-2022 End: 03-03-2022 Discharged Recurring No Primary Care Physician [facility]Labor[facility] Start: 02-24-2022 Registered Recurring No Primar y Care Physician [facility]-Physical Therapy Start: 02-19-2022 Registered Recurring No Primar y Care Physician [facility]Laboratory Start: 02-18-[address] Polo Falk Work Phone: [facility]-Physical Therapy Start: 02-18-2022 End: 02-18-2022 ambulatory No Primary Care Physician [facility] Work Phone: Start: 02-18-2022 End: 02-18-[address] Polo Falk Work Phone: [facility]-Outpatient Breast Imaging Start: 02-12-[address] Polo Falk Work Phone: [facility]-Laboratory Start: 01-28-2022 End: 01-28-[address] Polo Ruiz Work Phone: [facility] Work Phone: Start: 01-28-2022 End: 01-28-[address] Polo Ruiz Work Phone: [facility]-Laboratory Start: 01-22-2022 End: 01-22-[address] Polo Ruiz Work Phone: [facility] Start: 12-16-2021 End: 12-16-[address] Polo Ruiz Work Phone: [facility] Start: 12-16-2021 End: 12-16-[address] Polo Ruiz Work Phone: [facility] Work Phone: Start: 12-16-2021 End: 12-16-[address] Polo Ruiz Work Phone: [facility]Laboratory Start: 12-09-2021 End: 12-09-[address] Polo Falk Work Phone: [facility] Work Phone: Start: 12-09-2021 End: 12-09-[address] Polo Ruiz Work Phone: [facility]-Ultrasound, [facility] Start: 11-20-2021 End: 12-01-[address] Polo Ruiz Work Phone: [facility]-Laboratory Start: 10-31-2021 Telephone encounter Aniya Domzeus [facility] Work Phone: [facility] ([facility]) Comment on above: Coumadin/INR Start: 2021 Telephone encounter Jean-Pierre estrella MD Work Phone: [facility] Cardiology [place] Comment on above: Orders Start: 2021 End: 2021 Discharged Recurring MEDICINE ASSISTANT-C Brittany Cunha MEDICINE ASSISTANT Work Phone: [facility]-Laboratory Start: 10-21-2021 End: 10-21-[address] Polo Ruiz Work Phone: [facility] Start: 10-18-2021 End: 10-18-2021 Patient encounter procedure MEDICINE ASSISTANT-Mela Cunha MEDICINE ASSISTANT Work Phone: [facility] Start: 10-14-2021 End: 10-14-2021 Patient encounter procedure MEDICINE ASSISTANT-Mela Cunha MEDICINE ASSISTANT Work Phone: [facility]-Cardiovascular Services Start: 10-08-2021 End: 10-21-2021 Evaluation and management of inpatient MEDICINE ASSISTANT-Mela Cunha MEDICINE ASSISTANT Work Phone: [facility]-Transitional Care Unit Start: 10-08-2021 Non-patient / Non-visit MEDICINE ASSISTANT-C Yana Cunha MEDICINE ASSISTANT Work Phone: [facility] Start: 10-07-2021 Non-patient / Non-visit MEDICINE ASSISTANT-C Yana Cunha MEDICINE ASSISTANT Work Phone: [facility] Start: 10-06-2021 Non-patient / Non-visit MEDICINE ASSISTANT-C Yana Cunha MEDICINE ASSISTANT Work Phone: [facility] Start: 10-05-2021 End: 10-08-2021 Evaluation and management of inpatient MEDICINE ASSISTANT-Mela Cunha MEDICINE ASSISTANT Work Phone: [facility] Start: 09-25-2021 Telephone encounter Coumadin C linic Ag Imca Work Phone: [facility] ([facility]) Comment on above: Results (inr ) Start: 09-25-2021 End: 09-25-2021 Discharged Recurring [facility]Labor[facility] Start: 08-28-2021 End: 08-28-2021 Discharged Recurring [facility] Start: 08-05-2021 End: 08-05-2021 Patient encounter procedure Lucía Barraza APRN.MOLD DUMPER Work Phone: [facility] Comment on above: Close exposure to [place] VID-19 virus (Primary Dx) Start: 07-30-2021 Telephone encounter Coumadin C linic Ag Imca Work Phone: [facility] ([facility]) Comment on above: Coumadin/INR Start: 07-29-2021 End: 08-01-2021 Discharged Recurring [facility] Start: 07-09-2021 End: 07-09-2021 Patient encounter procedure [facility] Start: 07-01-2021 End: 07-01-2021 Discharged Recurring [facility] Start: 06-06-2021 End: 06-06-2021 Patient encounter procedure [facility] Start: 06-06-2021 End: 06-06-2021 Patient encounter procedure [facility] Start: 05-31-2021 End: 06-03-2021 Discharged Recurring [facility] Start: 05-18-2021 Non-patient / [facility] Start: 05-18-2021 End: 05-18-2021 [facility] Start: 05-09-2021 Non-patient / Non-visit [facility] Start: 05-09-2021 Non-patient / Non-visit [facility] Start: 05-08-2021 Non-patient / Non-visit [facility] Start: 05-07-2021 [facility] Start: 05-07-2021 Non-patient / Non-visit [facility] Start: 05-06-2021 Non-patient / Non-visit [facility] Start: 05-06-2021 End: 05-09-2021 [facility] Start: 05-05-2021 End: 05-06-2021 Emergency department patient visit [facility] Start: 04-19-2021 End: 05-04-2021 Discharged Recurring [facility] Start: 10-28-2017 Ambulatory UNKNOWN PROVIDER [facility] Procedures Date Procedure Procedure Detail Performing Clinician Start: 09-14-2024 Colonoscopy Samantha vargas MD Work Phone: Start: 05-17-2024 Measurement of renal function Samantha Anglin MD Work Phone: Comment on above: GFR Calc Start: 05-17-2024 Vitamin D, 25-hydrox y measurement Samantha Anglin MD Work Phone: Comment on above: Vitamin D 25(OH) Sta tus Range Deficiency <20 ng/mL (50nmol/L) Insufficiency 20 - 30 ng/mL (50 - 75 nmol/L) Sufficiency 30 - 100 ng/mL (75 - 250 nmol/L) Toxicity >100 ng/mL (>250 nmol/L) Start: 09-10-[address] Denise Vallecillo Work Phone: Start: 07-02-2023 Computed tomography of abdomen and pelvis with intravenous contrast Dr. Denise Vallecillo Work Phone: Start: 01-22-2023 Dual energy X-ray absorptiometry Dr. Real Gibson Work Phone: Start: 12-22-2022 Bilateral mammography R YOHAN VALLECILLO Start: 04-24-2022 MRI of joint of lowe r extremity No Primary Care Physician Start: 04-24-2022 MRI of lumbar spine No Primary Care Physician Start: 02-18-2022 Screening mammography Danuta Falk Work Phone: Start: 12-09-[address] Polo Ruiz Work Phone: Start: 2021 PROTHROMBIN TIME/PT [facility] Provider Start: 10-08-2021 End: 10-08-2021 Viral antigen assay MEDICINE ASSISTANT-C Brittany Cunha N P Work Phone: Start: 10-05-2021 Plain chest X-ray MEDICINE ASSISTANT-C Brittany Cunha MEDICINE ASSISTANT Work Phone: Start: 10-05-2021 Plain x-ray of pelvi s and lower extremity MEDICINE ASSISTANT-C Brittany Cunha MEDICINE ASSISTANT Work Phone: Start: 10-05-2021 X-ray of both feet MEDICINE ASSISTANT-C Brittany Cunha MEDICINE ASSISTANT Work Phone: Start: 09-25-2021 PROTHROMBIN TIME/PT [facility] Provider Start: 07-29-2021 PROTHROMBIN TIME/PT [facility] Provider Start: 05-18-2021 SARS-CoV-2 Antigen (Rapid) KEYLA VALLECILLO Start: 05-18-2021 Plain chest X-ray CHRISTINA PENARO Start: 05-06-2021 SARS-CoV-2 Antigen (Rapid) KEYLA VALLECILLO Start: 05-05-2021 Plain chest X-ray CHRISTINA VALLECILLO Viral antigen assay MEDICINE ASSISTANT-C Eleuterio Cunha MEDICINE ASSISTANT Work Phone: Plan of Treatment Date Care Activity Detail Author Start: 09-14-2024 Colonoscopy w/biopsy single/multiple COLONOSCOPY AND BIOPSY [facility] Start: 09-14-2024 Egd removal tumor polyp/other lesion snare tech EGD REMOVE LESION SNARE [facility] Start: 09-14-2024 Egd transoral biopsy single/multiple EGD BIOPSY SINGLE/MULTIPLE [facility] Start: 09-14-2024 Patient discharge [facility] Start: 05-21-2024 DIABETES SCREEN DIABETES SCREEN [facility] Start: 09-10-2023 Patient discharge [facility] Start: 07-03-2023 Patient discharge [facility] Start: 07-03-2023 Prothrombin time [facility] Start: 07-02-2023 End: 07-02-2023 [facility] Start: 07-02-2023 Following clinical pathway protocol [facility] Start: 07-02-2023 Ambulation without limitation [facility] Start: 07-02-2023 Assessment of risk o f venous thromboembolism [facility] Start: 07-02-2023 Insertion of cathete r into peripheral vein [facility] Start: 07-02-2023 Providing care accor ding to standard [facility] Start: 07-02-2023 Verification routine [facility] Start: 07-02-[address] [facility] Start: 07-02-2023 [facility] Start: 05-01-[address] [facility] Work Phone: Start: 12-10-2021 COVID-19 Vaccine (5 - Booster for Pfizer series) COVID-19 Vaccine (5 - Booster for Pfizer series) [facility] Start: 11-11-2021 Prothrombin time [facility] Work Phone: Start: 11-07-2021 Prothrombin time [facility] Work Phone: Start: 11-06-2021 Blood chemistry [facility] Work Phone: Start: 11-04-2021 [facility] Work Phone: Start: 10-31-2021 Prothrombin time [facility] Work Phone: Start: 10-30-2021 Blood chemistry [facility] Work Phone: Start: 10-28-2021 Prothrombin time [facility] Work Phone: Start: 10-27-2021 Development of care plan [facility] Work Phone: Start: 10-27-2021 SARS-CoV-2 (COVID-19 ) Ag [Presence] in Respiratory specimen by Rapid immunoassay [facility] Work Phone: Start: 10-24-2021 Prothrombin time [facility] Work Phone: Start: 2021 Blood chemistry [facility] Work Phone: Start: 10-21-2021 Patient discharge [facility] Work Phone: Start: 10-19-2021 [facility] Work Phone: Start: 10-16-2021 Referral to service [facility] Work Phone: Start: 10-11-2021 [facility] Work Phone: Start: 10-10-2021 [facility] Work Phone: Start: 10-09-2021 Development of care plan [facility] Work Phone: Start: 10-09-2021 [facility] Work Phone: Start: 10-09-2021 Developing a treatme nt plan [facility] Work Phone: Start: 10-08-2021 Verification routine [facility] Work Phone: Start: 10-08-2021 Continuous positive airway pressure ventilation treatment [facility] Work Phone: Start: 10-08-2021 Continuous pulse oximetry [facility] Work Phone: Start: 10-08-[address] [facility] Work Phone: Start: 10-08-2021 Measuring intake and output [facility] Work Phone: Start: 10-08-2021 Patient referral to dietitian [facility] Work Phone: Start: 10-08-2021 Referral to occupati onal therapist [facility] Work Phone: Start: 10-08-2021 Referral to service [facility] Work Phone: Start: 10-08-2021 Vital signs measurements [facility] Work Phone: Start: 10-08-2021 [facility] Work Phone: Start: 10-08-2021 Patient discharge [facility] Work Phone: Start: 10-07-2021 [facility] Work Phone: Start: 10-06-2021 Following clinical pathway protocol [facility] Work Phone: Start: 10-06-2021 Continuous pulse oximetry [facility] Work Phone: Start: 10-05-2021 Following clinical pathway protocol [facility] Work Phone: Start: 10-05-2021 Application of elast ic bandage [facility] Work Phone: Start: 10-05-2021 Application of ice collar, cap or bag [facility] Work Phone: Start: 10-05-2021 Application of intermittent pneumatic compression device [facility] Work Phone: Start: 10-05-2021 Aspiration precautions [facility] Work Phone: Start: 10-05-2021 Assessment of risk o f venous thromboembolism [facility] Work Phone: Start: 10-05-2021 Continuous positive airway pressure ventilation treatment [facility] Work Phone: Start: 10-05-2021 Fall prevention [facility] Work Phone: Start: 10-05-2021 Incentive spirometry [facility] Work Phone: Start: 10-05-2021 Inhalation therapy procedure [facility] Work Phone: Start: 10-05-2021 Insertion of cathete r into peripheral vein [facility] Work Phone: Start: 10-05-2021 Introduction of urin hai catheter [facility] Work Phone: Start: 10-05-2021 Measuring intake and output [facility] Work Phone: Start: 10-05-2021 Oxygen therapy [facility] Work Phone: Start: 10-05-2021 Providing care accor ding to standard [facility] Work Phone: Start: 10-05-2021 Provision of activit y privileges [facility] Work Phone: Start: 10-05-2021 Referral to occupati onal therapist [facility] Work Phone: Start: 10-05-2021 Referral to service [facility] Work Phone: Start: 10-05-2021 Skin care [facility] Work Phone: Start: 10-05-2021 [facility] Work Phone: Start: 10-05-[address] [facility] Work Phone: Start: 08-05-2021 End: 08-19-2021 Influenza virus A and B RNA and SARS-CoV-2 (COVID-19) N gene panel - Respiratory specimen by DWAYNE with probe detection [facility] Work Phone: Comment on above: Expected: 08/05/2021 , Expires: 08/19/2021 Start: 05-04-2021 ADVANCE DIRECTIVE DISCUSSION ADVANCE DIRECTIVE DISCUSSION [facility] Start: 07-03-2011 Pneumococcal Vaccine : 65+ Years (2 - PCV) Pneumococcal Vaccine: 65+ Years (2 - PCV) [facility] Start: 10-24-2007 PNEUMOCOCCAL: 65+ (1 - PCV) PNEUMOCOCCAL: 65+ (1 - PCV) [facility] [facility] Start: 10-24-2007 PNEUMOVAX AGE 65 AND OVER WITH 5YR LOOKBACK (#1) PNEUMOVAX AGE 65 AND OVER WITH 5YR LOOKBACK (#1) [facility] Start: 1992 SHINGRIX VACCINE (1 of 2) RAMOS GRIX VACCINE (1 of 2) [facility] Start: 1992 Zoster Vaccines (1 of 2) Zoste r Vaccines (1 of 2) [facility] Start: 1961 DTaP/Tdap/Td Vaccine s (1 - Tdap) DTaP/Tdap/Td Vaccines (1 - Tdap) [facility] Start: 1961 Urine microalbumin profile DTAP,TDAP,TD (1 - Tdap) [facility] Start: 1960 Diabetes mellitus screening Diabetes Screening [facility] Start: 1960 HEPATITIS C SCREENING HEPATITIS C [facility] Start: 1960 Hepatitis C screening Hepatitis C [facility] Start: 1954 Adult depression screening assessment DEPRESSION SCREENING [facility] Start: 1942 Hepatitis B Vaccines (1 of 3 - 3-dose series) Hepatitis B Vaccines (1 of 3 - 3-dose series) [facility] Start: 1942 Screening for osteoporosis Bone Density Scan [facility] Anion gap measurement [facility] Work Phone: BUN/Creatinine ratio [facility] Work Phone: Calcium [Mass/volume ] in Serum or Plasma [facility] Work Phone: Carbon dioxide, tota l [Moles/volume] in Serum or Plasma [facility] Work Phone: Chloride [Moles/volu me] in Serum or Plasma [facility] Work Phone: Colonoscopy [facility] Creatinine [Moles/vo lume] in Serum or Plasma [facility] Work Phone: Erythrocyte mean corpuscular volume determination [facility] Glucose [Mass/volume ] in Serum or Plasma [facility] Work Phone: Hematocrit [Volume Fraction] of Blood [facility] Work Phone: Hematocrit [Volume Fraction] of Blood [facility] Hematocrit [Volume Fraction] of Blood [facility] Hemoglobin [Mass/vol ume] in Blood [facility] Work Phone: Hemoglobin [Mass/vol ume] in Blood [facility] Hemoglobin [Mass/vol ume] in Blood [facility] INR in Blood by Coagulation assay [facility] Work Phone: INR in Blood by Coagulation assay [facility] Leukocytes [#/volume ] in Blood [facility] Work Phone: Leukocytes [#/volume ] in Blood [facility] Mean corpuscular hemoglobin concentration determination [facility] Work Phone: Mean corpuscular hemoglobin concentration determination [facility] Mean corpuscular hemoglobin determination [facility] Work Phone: Mean corpuscular hemoglobin determination [facility] Measurement of renal function [facility] Work Phone: Neutrophil count [facility] Work Phone: Neutrophil count [facility] Neutrophil percent differential count [facility] Work Phone: Neutrophil percent differential count [facility] Patient Education ED AFIB [facility] Work Phone: Patient referral [facility] Work Phone: Platelets [#/volume] in Blood [facility] Work Phone: Platelets [#/volume] in Blood [facility] Potassium [Moles/vol ume] in Serum or Plasma [facility] Work Phone: Protein measurement [facility] Work Phone: Prothrombin time [facility] Work Phone: End: 10-29-2022 PT panel - Platelet poor plasma by Coagulation assay PROTHROMBIN TIME/PT Lab Routine Atrial fibrillation, chronic (HCC) Once per week for 52 Occurrences starting 10/29/2021 until 10/29/2022 [facility] Work Phone: Comment on above: Once per week for 52 Occurrences starting 10/29/2021 until 10/29/2022 Red blood cell count [facility] Work Phone: Red blood cell count [facility] Red cell distributio n width determination [facility] Work Phone: Red cell distributio n width determination [facility] Sodium [Moles/volume ] in Serum or Plasma [facility] Work Phone: Urea nitrogen [Mass/volume] in Serum or Plasma [facility] Work Phone: [facility] Immunizations Immunization Date Immunization Notes Care Provider [facility] 02-03-2024 tetanus toxoid, redu tonio diphtheria toxoid, and acellular pertussis vaccine, adsorbed Samantha Anglin MD Work Phone: [facility] 02-05-2022 influenza, high dose seasonal, preservative-free Cameron Coyle MD Work Phone: [facility] 10-15-2021 Covid (Pfizer) MEDICINE ASSISTANT-C Brittany argueta MEDICINE ASSISTANT Work Phone: [facility] 04-19-2021 Covid (Pfizer) MEDICINE ASSISTANT-Mela argueta MEDICINE ASSISTANT Work Phone: [facility] 01-28-2021 influenza, high dose seasonal, preservative-free Lucía Barraza APRN.MOLD DUMPER Work Phone: [facility] Work Phone: 07-11-2020 COVID-19 vaccine, ag e 12+ yr ([employer]-BIONTHomesnap - [facility]) Lucía Lawson INSURANCE SALES SUPERVISOR.MOLD DUMPER Work Phone: [facility] 07-02-2020 Covid (Pfizer) KEYLA [facility] Work Phone: 06-20-2020 COVID-19 vaccine, ag e 12+ yr (PFIZER-BIONTHomesnap - PURPLE TOP) Lucía Barraza APRN.MOLD DUMPER Work Phone: [facility] 02-01-2020 influenza, injectabl e, quadrivalent, preservative free Lucía Barraza APRN.MOLD DUMPER Work Phone: [facility] Work Phone: 03-28-2019 influenza, injectabl e, quadrivalent, preservative free Lucía Barraza INSURANCE SALES SUPERVISOR.MOLD DUMPER Work Phone: [facility] Work Phone: 02-05-2018 influenza, high dose seasonal, preservative-free Lucía Barraza APRN.MOLD DUMPER Work Phone: [facility] 02-01-2018 influenza, injectabl e, quadrivalent, preservative free Dr. Craftori Work Phone: [facility] 02-01-2018 influenza, seasonal, injectable KEYLA KUMARIGLEN [facility] 02-01-2018 influenza, seasonal, injectable, preservative free Lucía Barraza APRN.MOLD DUMPER Work Phone: [facility] Work Phone: 07-02-2010 pneumococcal polysaccharide vaccine, 23 valent Cameron Coyle MD Work Phone: [facility] Payers Date Payer Category Payer Self-pay [id number] 2023 Medicare [id number] 2022 Medicare [employer] MEDICARE ADVANTAGE HU[employer] MEDICARE [id number] 2022-Present [address] [address] [place] [address] Medicare O [id number] 2019 Medicare HUMANA MEDICARE HU[employer]NA GOLD PLUS [id number] 2019-Present [phone] [address] [address] [place] [address] [facility] [place] [facility] [id number] 1959 Private Health Insurance [id number] 1942 Unknown [id number] 2.16.840.1.297981.3.579. 2.598 1942 Unknown [id number] 2.16840.1.831239.3.579. 2.1259 Private Health Insurance [facility] [id number] Unknown Unknown [id number] 2.16.840.1.027015.3.579. 2.462 Unknown [id number] 2.16.840.1.050103.3.579. 2.462 Unknown [id number] 2.16.840.1.262460.3.579. 2.462 Unknown [id number] 2.16.840.1.261940.3.579. 2.462 Unknown [id number] 2.16.840.1.968618.3.579. 2.462 Unknown [id number] 2.16.840.1.069276.3.579. 2.462 Unknown [id number] 2.16.840.1.577607.3.579. 2.462 Unknown [id number] 2.16.840.1.133724.3.579. 2.462 Unknown [id number] 2.16.840.1.243712.3.579. 2.462 Unknown [id number] 2.16.840.1.921916.3.579. 2.462 Unknown [id number] 2.16.840.1.762546.3.579. 2.462 Unknown [id number] 2.16.840.1.963734.3.579. 2.462 Unknown [id number] 2.16.840.1.189534.3.579. 2.462 Unknown [id number] 2.16.840.1.411819.3.579. 2.462 Unknown [id number] 2.16.840.1.955277.3.579. 2.462 Unknown [id number] 2.16840.1.646132.3.579. 2.462 Unknown [id number] 2.840.1.209675.3.579. 2.462 Unknown [id number] 2.840.1.699754.3.579. 2.462 Unknown [id number] 2.840.1.272179.3.579. 2.462 Unknown [id number] 2.840.1.242223.3.579. 2.462 Unknown [id number] 2.840.1.700678.3.579. 2.462 Unknown [id number] 2.840.1.330963.3.579. 2.462 Unknown [id number] 2.840.1.788043.3.579. 2.462 Unknown [id number] 2.840.1.992062.3.579. 2.462 Unknown [id number] 2.840.1.667169.3.579. 2.462 Unknown [id number] 2.16840.1.569549.3.579. 2.462 Unknown [id number] 2.16840.1.629511.3.579. 2.462 Unknown [id number] 2.840.1.990874.3.579. 2.462 Unknown [id number] 2.16840.1.006337.3.579. 2.462 Unknown [id number] 2.16840.1.157358.3.579. 2.462 Unknown [id number] 2.16.840.1.301812.3.579. 2.462 Unknown [id number] 2.16.840.1.024066.3.579. 2.462 Unknown [id number] 2.16840.1.524790.3.579. 2.462 Unknown [id number] 2.0.1.992980.3.579. 2.462 Social History Date Type Detail Facility Start: 07-09-2021 End: 09-09-2023 Tobacco smoking status [facility] Unknown if ever smoked [facility] Start: 05-31-2018 None [facility] Start: 05-24-2018 Non-smoker [facility] Start: 1940 Sex Assigned At Female [facility] Start: 07-06-2015 End: 09-12-2024 Tobacco smoking status MIIS Never smoked tobacco [facility] Start: 07-06-2015 End: 06-10-2022 Tobacco use and exposure Smokeless tobacco non-user [facility] Start: 07-04-2021 End: 08-05-2021 Alcohol intake Current non-drinker of alcohol (finding) [facility] Start: 07-26-2021 End: 08-05-2021 Exposure to SARS-CoV-2 (event) Yes [facility] Work Phone: Start: 06-10-2022 Alcohol intake Lifetime non-d no (finding) [facility] Start: 1940 Sex Assigned At Not on file [facility] Start: 05-31-2022 End: 06-10-2022 Exposure to SARS-CoV-2 (event) Not sure [facility] Start: 08-01-2024 Sex Female (finding) [facility] Not [facility] NEGATED: Highlighted row [facility] NEGATED: Highlighted row Not [facility] Medical Equipment Procedure Code Equipment Code Equipment Origin al Text Equipment Identifier Dates Valve Epic Flexf it 29mm 27mm Low Profile Porcine Pericardial 19mm Mitral - [id number] Start: 04-16-2018 Goals Date Patient Goal Desired Activity /State Functional Status Date Assessment Result Facility 07-03-2023 Functional status Patient Activi ty Ambulates;Up ad sma [facility] Work Phone: 07-02-2023 Functional status Ambulates;Up ad sam [facility] Work Phone: 10-21-2021 Functional status Chair [facility] Work Phone: 10-14-2021 Functional status Ambulates;Bathroom Priv ilege [facility] Work Phone: 10-08-2021 Functional status Ambulates [facility] Work Phone: 05-18-2021 Functional status Chair [facility] Work Phone: 05-09-2021 Functional status Ambulates;Up ad sam [facility] Work Phone: Mental Status Date Assessment Result Facility 09-14-2024 Cognitive function Voice/Name [facility] Work Phone: 09-14-2024 Cognitive function Patient Orien tation Person;Place;Time [facility] Work Phone: 09-10-2023 Cognitive function Level Of Cons ciousness Awake;Alert;Appropriate;Follow s Commands [facility] Work Phone: 09-10-2023 Cognitive function Voice/Name [facility] Work Phone: 07-03-2023 Cognitive function Voice/Name [facility] Work Phone: 07-03-2023 Cognitive function Appropriate;[facility] Work Phone: 07-02-2023 Cognitive function Voice/Name [facility] Work Phone: 10-21-2021 Cognitive function Voice/Name [facility] Work Phone: 10-20-2021 Cognitive function Appropriate;[facility] Work Phone: 10-14-2021 Cognitive function Voice/Name [facility] Work Phone: 10-12-2021 Cognitive function Appropriate;[facility] Work Phone: 10-08-2021 Cognitive function Voice/Name [facility] Work Phone: 10-07-2021 Cognitive function Appropriate;[facility] Work Phone: 05-18-2021 Cognitive function Voice/Name [facility] Work Phone: 05-18-2021 Cognitive function Level Of Cons ciousness Awake;Alert;Appropriate;Follow s Commands [facility] Work Phone: 05-09-2021 Cognitive function Voice/Name [facility] Work Phone: 05-05-2021 Cognitive function [facility]/Name [facility] Work Phone: Clinical Notes 04-06-2018 to 12-01-2024 Note Date & Type Note Facility 12-01-2024 Procedure note [facility] 12-01-2024 Evaluation note Diagnosis Onset Date Resolution Atrial fibrillation chronic December 01, 2024 10:22am Presence of permanent cardiac pacemaker May, chronic December 01, 2024 10:22am S/P MVR (mitral valve replacement) acute December 01, 2024 10:27am Atrial fibrillation chronic December 01, 2024 10:27am Presence of permanent cardiac pacemaker May, chronic December 01, 2024 10:27am Hx of atrioventricular node ablation inactive December 01, 2024 10:27am Hyperlipidemia inactive December 01, 2024 10:27am [facility] Work Phone: 1(880) 402-987005-14-2025 Procedure note [facility] Medical Records Department [address] [place] [address] Colonoscopy Report MR#: [id number] Acct: [id number] Name: GLORIA MATHEW Rep #:[id number] : 1940 83 From: Avtar Tipton PCP: Dr. Samantha Anglin MD Status:REG SD C Patient Name: Gloria Mathew Procedure Date: 09/14/2024 9:02 AM Date of : 1940 Age: 83 Procedure: Colonoscopy Indications: Hematochezia, Melena, Iron deficiency anemia Providers: Avtar Desir MD Referring MD: Samantha Anglin Md Medicines: See the Anesthesia note for documentation of the administered medications Patient Profile: Refer to note in patient chart for documentation of history and physical. Last Colonoscopy: 1 year ago. Complications: No immediate complications. Estimated blood loss: Minimal. Procedure: Pre-Anesthesia Assessment: - The heart rate, respiratory rate, oxygen saturations, blood pressure, adequacy of pulmonary ventilation, and response to care were monitored throughout the procedure. After I obtained informed consent, the scope was passed under direct vision. Throughout the procedure, the patient's blood pressure, pulse, and oxygen saturations were monitored continuously. The was introduced through the anus and advanced to the cecum, identified by the appendiceal orifice, IC valve and transillumination. The colonoscopy was technically difficult and complex due to multiple diverticula in the colon. Successful completion of the procedure was aided by withdrawing and reinserting the scope. The patient tolerated the procedure fairly well. The quality of the bowel preparation was adequate to identify polyps greater than 5 mm in size. Scope In: 9:03:41 AM Scope Withdrawal Time 0 hours 32 minutes 55 seconds Scope Out: 9:49:56 AM Total Procedure Duration Time 0 hours 46 minutes 15 seconds Findings: The perianal and digital rectal examinations were normal. A 3 mm polyp was found in the ascending colon. The polyp was semi-sessile. Biopsies were taken with a cold forceps for histology. Estimated blood loss: 3 mL requiring treatment with electrocautery. Many small and large-mouthed diverticula were found in the entire colon. There was no evidence of diverticular bleeding. No biopsies or other specimens were collected for this exam. A 3 mm, non-bleeding polyp was found in the sigmoid colon. The polyp was semi-sessile. Biopsies were taken with a cold forceps for histology. Estimated blood loss was minimal. Anal papilla(e) were hypertrophied. No biopsies or other specimens were collected for this exam. Impression: - One 3 mm polyp in the ascending colon. Biopsied. - Severe diverticulosis in the entire examined colon. There was no evidence of diverticular bleeding. No specimens collected. - One 3 mm, non-bleeding polyp in the sigmoid colon. Biopsied. - Anal papilla(e) were hypertrophied. No specimens collected. Recommendation: - Discharge patient to home (via wheelchair). - Full liquid diet today. - Resume Coumadin (warfarin) at prior dose in 2 days. Refer to managing physician for further adjustment of therapy. - Await pathology results. - Telephone my office for pathology results in 1 week. - Repeat colonoscopy is recommended. The colonoscopy date will be determined after pathology results from today's exam become available for review. Procedure Code(s): --- Professional --- 41965, Colonoscopy, flexible; with biopsy, single or multiple Diagnosis Code(s): --- Professional --- D12.2, Benign neoplasm of ascending colon D12.5, Benign neoplasm of sigmoid colon K62.89, Other specified diseases of anus and rectum K92.1, Melena (includes Hematochezia) D50.9, Iron deficiency anemia, unspecified K57.30, Diverticulosis of large intestine without perforation or abscess without bleeding CPT copyright 2021 [employer]. All rights reserved. The codes documented in this report are preliminary and upon senior staff psychologist review may be revised to meet current compliance requirements. Avtar Desir MD 09/14/2024 10:08:16 AM This report has been signed electronically. Number of Addenda: 0 Note Initiated On: 09/14/2024 9:02 AM 09/14/24 1008 Date _ Avtar Desir MD Cosigner Signature: Date (if indicated) CC: Dr. Samantha Anglin MD; Dr. Avtar Desir MD ~ Date Dictated: 09/14/24 0902 Date Transcribed: 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: LORRIE Signed [facility]05-14-2025 Procedure note [facility] Medical Records Department [address] [place] [address] Operative Report - CC Letter MR#: [id number] Acct: [id number] Name: GLORIA MATHEW Rep #:[id number] : 1940 83 From: Avtar Tipton PCP: Dr. Samantha Anglin MD Status:REG SD C 09/14/2024 Samantha Anglin Md Re : Colonoscopy procedure for Gloria Mathew Dear Derrek This procedure was performed on Saturday, September 14, 2024. My impressions and recommendations are as follows: Impressions : - One 3 mm polyp in the ascending colon. Biopsied. - Severe diverticulosis in the entire examined colon. There was no evidence of diverticular bleeding. No specimens collected. - One 3 mm, non-bleeding polyp in the sigmoid colon. Biopsied. - Anal papilla(e) were hypertrophied. No specimens collected. Recommendations : - Discharge patient to home (via wheelchair). - Full liquid diet today. - Resume Coumadin (warfarin) at prior dose in 2 days. Refer to managing physician for further adjustment of therapy. - Await pathology results. - Telephone my office for pathology results in 1 week. - Repeat colonoscopy is recommended. The colonoscopy date will be determined after pathology results from today's exam become available for review. My findings are described in the full procedure note, which is enclosed. If I can be of further assistance, please feel free to contact me at Doctor phone number(s): , Work: . Sincerely, Avtar Desir MD 09/14/2024 10:08:16 AM This report has been signed electronically. 09/14/24 1008 Date _ Avtar Flores Signature: Date (if indicated) CC: Dr. Samantha Anglin MD; Dr. Avtar Desir MD ~ Date Dictated: 09/14/24901 Date Transcribed: 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: MB Signed [facility]05-14-2025 Consult note [facility] Medical Records Department [address] [place] [address] Anesthesia Postop Eval I 09/14/24 1001 MR#: [id number] Acct: [id number] Name: GLORIA MATHEW Rep #:[id number] : 1940 83 From: Bud FELDMAN PCP: Dr. Samantha Anglin MD Status:REG SD C Y Race: C Location: [place] [address] Anesthesia: Postop Eval I Current Vital Signs Temperature: 97.1 F Pulse Rate: 60 Blood Pressure: 143/67 Respiratory Rate: 16 Pulse Ox: 99 Assessment Airway patent: Yes Spontaneous unlabored respirations: Yes nausea: No Vomiting: No Anesthesia Complication: No Fluid Hydration Crystalloid volume administer (ml): 800 Total IV fluid infused: 800 Progress Note Anesthesia document: Postop Eval 1 completed: Yes 09/14/24 1002 [facility]> Date _ [facility] Cosigner Signature: Date CC: ~ Signed [facility]05-14-2025 Procedure note [facility] Medical Records Department [address] [place] [address] EGD Report MR#: [id number] Acct: [id number] Name: GLORIA MATHEW Rep #:[id number] : 1940 83 From: Avtar Tipton PCP: Dr. Samantha Anglin MD Status:REG SD C Patient Name: Gloria Mathew Procedure Date: 09/14/2024 7:48 AM Date of : 1940 Age: 83 Procedure: Upper GI endoscopy Indications: Iron deficiency anemia, Suspected esophageal reflux Providers: Avtar Desir MD Referring MD: Samantha Anglin Md Medicines: See the Anesthesia note for documentation of the administered medications Patient Profile: Refer to note in patient chart for documentation of history and physical. Complications: No immediate complications. Estimated blood loss: Minimal. Procedure: Pre-Anesthesia Assessment: - The heart rate, respiratory rate, oxygen saturations, blood pressure, adequacy of pulmonary ventilation, and response to care were monitored throughout the procedure. After obtaining informed consent, the endoscope was passed under direct vision. Throughout the procedure, the patient's blood pressure, pulse, and oxygen saturations were monitored continuously. The Endoscope was introduced through the mouth, and advanced to the second part of duodenum. The upper GI endoscopy was somewhat difficult due to excessive bleeding. Successful completion of the procedure was aided by controlling the bleeding. The patient tolerated the procedure fairly well. Scope In: 8:22:34 AM Scope Out: 8:59:49 AM Total Procedure Duration Time 0 hours 37 minutes 15 seconds Findings: A few 2 to 4 mm semi-sessile polyps with no bleeding were found in the duodenal bulb. Biopsies were taken with a cold forceps for histology. Estimated blood loss: 3 mL requiring treatment with placement of hemostatic clip(s). Localized erythematous mucosa without bleeding was found in the gastric antrum. No biopsies or other specimens were collected for this exam. Multiple 2 to 5 mm pedunculated and sessile polyps with no bleeding and no stigmata of recent bleeding were found in the gastric fundus. The polyp was removed with a hot snare. Resection and retrieval were complete using a suction (via the working channel). [Clip Device]. The Z-line was irregular and was found 41 cm from the incisors. No biopsies or other specimens were collected for this exam. A medium-sized hiatal hernia was present. No biopsies or other specimens were collected for this exam. The cardia and gastric fundus were normal on retroflexion. Impression: - A few duodenal polyps. Biopsied. - Erythematous mucosa in the antrum. No specimens collected. - Multiple gastric polyps. Resected and retrieved. - Z-line irregular, 41 cm from the incisors. No specimens collected. - Medium-sized hiatal hernia. No specimens collected. Recommendation: - Discharge patient to home (via wheelchair). - Full liquid diet for 2 days. - Resume in 2 days at prior dose in 2 days. Refer to managing physician for further adjustment of therapy. - Await pathology results. - Telephone my office for pathology results in 1 week. Procedure Code(s): --- Professional --- 03304, Esophagogastroduodenoscopy, flexible, transoral; with removal of tumor(s), polyp(s), or other lesion(s) by snare technique 31745, 59, Esophagogastroduodenoscopy, flexible, transoral; with biopsy, single or multiple Diagnosis Code(s): --- Professional --- K31.7, Polyp of stomach and duodenum K31.89, Other diseases of stomach and duodenum K22.89, Other specified disease of esophagus K44.9, Diaphragmatic hernia without obstruction or gangrene D50.9, Iron deficiency anemia, unspecified CPT copyright 2021 [employer]. All rights reserved. The codes documented in this report are preliminary and upon senior staff psychologist review may be revised to meet current compliance requirements. Avtar Desir MD 09/14/2024 10:01:12 AM This report has been signed electronically. Number of Addenda: 0 Note Initiated On: 09/14/2024 7:48 AM 09/14/24 1001 Date _ Avtar Desir MD Cosigner Signature: Date (if indicated) CC: Dr. Samantha Anglin MD; Dr. Avtar Desir MD ~ Date Dictated: 09/14/24 0748 Date Transcribed: 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: LORRIE Signed [facility]05-14-2025 Procedure note [facility] Medical Records Department [address] [place] [address] Operative Report - CC Letter MR#: [id number] Acct: [id number] Name: GLORIA MATHEW Rep #:[id number] : 1940 83 From: Avtar Tipton PCP: Dr. Samantha Anglin MD Status:REG STEWART C 09/14/2024 Samantha nAglin Md Re : Upper GI endoscopy procedure for Gloria Mathew Dear Derrek This procedure was performed on Saturday, September 14, 2024. My impressions and recommendations are as follows: Impressions : - A few duodenal polyps. Biopsied. - Erythematous mucosa in the antrum. No specimens collected. - Multiple gastric polyps. Resected and retrieved. - Z-line irregular, 41 cm from the incisors. No specimens collected. - Medium-sized hiatal hernia. No specimens collected. Recommendations : - Discharge patient to home (via wheelchair). - Full liquid diet for 2 days. - Resume in 2 days at prior dose in 2 days. Refer to managing physician for further adjustment of therapy. - Await pathology results. - Telephone my office for pathology results in 1 week. My findings are described in the full procedure note, which is enclosed. If I can be of further assistance, please feel free to contact me at Doctor phone number(s): , Work: . Sincerely, Avtar Desir MD 09/14/2024 10:01:12 AM This report has been signed electronically. 09/14/24 1001 Date _ Avtar Desir MD Cosigner Signature: Date (if indicated) CC: Dr. Samantha Anglin MD; Dr. Avtar Desir MD ~ Date Dictated: 09/14/24 0748 Date Transcribed: 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: LORRIE Signed [facility]05-14-2025 History and physical note Author Avtar Desir [facility] Note Date/Time September 14, 2024 7:50a m [facility] Medical Records Department [address] [facility] [place] [address] History & Physical Exam 09/14/24 0746 MR#: [id number] Acct: [id number] Name: GLORIA MATHEW Rep #:[id number] : 1940 83 From: Avtar Tipton PCP: Dr. Samantha Anglin MD Status:REG SD C Location: [place] [address] History and Physical Date of Admission: 09/14/24 MR#: [id number] Acct: [id number] Name: GLORIA MATHEW Rep #: [id number] : 1940 Provider: Dr. Avtar Desir MD Age/Sex: 83/F Location: [facility] Status: Signed Intake Vital Signs 06/02/2509:24 08/02/2507:09 Height 5 ft 2 in 5 ft 2 in Weight: 140 lb 6 oz BMI 25.7 BP 138/73 H Blood Pressure Location Rt brachial Position Sitting Respiration 18 Pulse 69 Pulse Source Monitor Temp 97.4 F L Temp Source Temporal Pulse Oximetry (%) 98 Oxygen Delivery Method room air Intake Visit Reasons: RECALL LETTER/RECTAL BLEEDING Chief Complaint: recall letter/ rectal bleeding Accompanied by: Sister Is patient in pain?: No Allergies sertraline (From Zoloft) Adverse Reaction (Verified 08/01/24 08:10) Other Medications ?Medication ?Instructions ?Recorded ?Confirmed ?Type cholecalciferol (vitamin D3) 25 1,000 unit PO DAILY REPLACEMENT 05/21/18 08/01/24 History mcg (1,000 unit) tablet (Vitamin D3) cyanocobalamin (vitamin B-12) 1,000 mcg sublingual DAILY 05/21/1807/04 History 1,000 mcg sublingual tablet replacement citalopram 10 mg tablet 10 mg PO QHS depression 12/31/20 5 History biotin 1,000 mcg chewable tablet 1,000 mcg PO DAILY SUPPLEMENT 05/06/21 0 08/01/24 History ipratropium bromide 42 mcg (0.06 2 spray intranasal BID PRN NASAL 2 08/01/24 History %) nasal spray pramipexole 0.5 mg tablet 0.75 mg PO QHS RLS 05/06/21 08/01/24 His tory fexofenadine 180 mg tablet 180 mg PO DAILY PRN allergy 07/09/21 History (Allergy Relief (fexofenadine)) acetaminophen 500 mg tablet 1,000 mg (2 x 500 mg) PO Q6H PRN 2 08/01/24 Rx PRN Pain Score 1-3 #0 tabs ascorbic acid (vitamin C) 500 mg 500 mg PO DAILY supplement 04/06/2307/04 History tablet calcium 600 mg-D3 800 unit-mag11 1 tab PO DAILY REPLACEMENT 04/06/2307/04 History 50 dh-qumd-elsqkd-stephanie-s.borat tablet (Caltrate 600-D Plus Minerals) gabapentin 300 mg capsule 600 mg PO QHS 07/02/23 08/01/24 History lactase 3,000 unit tablet (Dairy 9,000 unit PO TID PRN lactose 09/09/23 0 08/01/24 History Relief) intolerance ferrous sulfate [Iron (ferrous 325 mg PO TID 11/26/23 08/01/24 History sulfate)] folic acid 50 mg PO DAILY 11/26/23 08/01/24 History gabapentin 300 mg capsule 300 mg PO DAILY 11/26/23 08/01/24 Histor y multivitamin 1 tab PO DAILY 11/26/23 08/01/24 History simvastatin 10 mg tablet 10 mg PO QHS cholesterol #90 tabs 08/01/24 Rx warfarin 1 mg tablet 1 mg PO .COMPLEX #120 TABLETS 06/02/24 0 08/01/24 Rx Have you fallen in the past year?: No PFSH Medical History Hematoma Skin ulcer of hip with fat layer exposed Loss of hearing Wears hearing aid Wears glasses Cancer High cholesterol Restless legs History of IBS Diverticulosis History of diverticulitis History of echocardiogram History of pacemaker Cardiology follow-up encounter Osteopenia GI bleed Non-smoker CPAP (continuous positive airway pressure) dependence Pacemaker 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, left senior living current use of anticoagulant Atrial fibrillation Neuropathic pain Restless leg syndrome Allergic rhinitis Depression Vitamin B12 deficiency Hyperlipidemia Vitamin D deficiency Osteoporosis 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 Presence of permanent cardiac pacemaker (~05/20/21) Depression GERD (gastroesophageal reflux disease) Sleep apnea Anticoagulated on warfarin Acute non-ST elevation myocardial infarction (NSTEMI) Hernia Endometrial cancer Neuropathy Mitral and aortic valve disease Atrial fibrillation Atrial fibrillation with RVR Surgical History S/P MVR (mitral valve replacement) History of cardiac catheterization History of hernia surgery History of ankle surgery Hx of atrioventricular node ablation S/P left atrial appendage ligation S/P Maze operation for atrial fibrillation S/P left atrial appendage ligation History of hysterectomy for cancer History of cholecystectomy S/P ablation operation for arrhythmia History of maze procedure History of mitral valve replacement Family History Mother Heart disease CAD (coronary artery disease) Hypertension Breast cancerFather Heart disease Bradycardia Bradycardia requiring pacemaker placement. Colon cancer Social History household members: none Smoking Status: Never smoker alcohol intake: current alcohol intake frequency: holidays/special occasions only substance use type: does not use HPI HPI HPI: Patient 83-year-old female who presents on recall notice for repeat colonoscopy after last colonoscopy 09/11/2023 with me showed rectal tubular adenoma. She presents today with her sister. She reports that she had another episode of bright red blood per rectum last month which she recalls began on 06/16/2024. She does note that this was bright red in character and shows me several pictures of the clots that were expelled. She insists that her bowel movements during this time were soft every time and of the diarrhea type. Associated with this manifestation of bleeding she notes some generalized lower abdominal cramping. During this experience she saw her primary care provider who ordered lab testing and found some anemia. She also reports that her provider recommended she consider an upper scope in conjunction with a repeat colonoscopyafter reviewing one of her pictures that seem to show possible melanic change. Patient now shares that her bowel movements have returned to her normal which she reports is 3-4 stools in the morning consisting of soupy consistency withlittle clumps. Her sister questions whether or not Ms. 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 For her part Ms. Mathew denies any persistent lightheadedness, weakness, tiredness, or dizziness. She denies any general major health updates. Specifically she denies any onset of reflux or epigastric discomfort. Below is recapitulated from patient's prior visit for ease of review: Patient is a 82-year-old female who presents for need to schedule diagnostic colonoscopy secondary to recent admission for suspected diverticulitis and acutelower GI bleed. Specifically, patient follows up from an inpatient admission that included 07/02/2023. She is referred from Dr. Anglin. She notes that her symptoms of vomiting and bleeding remitted spontaneously through conservative measures. She shares she is uncertain about any abdominal pain complaints, but according to her PCP she did have some abdominal pain that resolved with outpatient Levaquin therapy for diverticulitis. She also shares she is unsure whether this was connected to a bout of what she terms food poisoning couple weeks prior to admission where she experienced uncontrollable diarrhea. She confirms that her bowel movements now are nonbloody and occur 1-3 times per day. She denies any straining. Total toilet time is less than 5 minutes. She is not using any fiber supplements but her diet is mild to moderately high in fiberincluding foods such as fruits and dry cereals. She also shares that she is making intentional effort at consuming more water. She denies constipation but has had some intermittent diarrhea. Patient has had prior colonoscopy. She brings a transcript of the results from 2013 where she underwent a polypectomy and biopsy, but is unable to recall results of procedures even further remotely. Patient has a family history of colon cancer in her father (who is diagnosed at the age of 90) and her aunt (who also was diagnosed late in life). The patient's weight is stable. The patient is prescribed anticoagulants/blood thinners. Specifically she is prescribed warfarin for history of A-fib and mitral valve replacement. Mrs. Mathew also has a history of uterine cancer that was treated with radiationtherapy in 1990. She shares that she has had some off target effects of the radiation with respect to her GI habits. Relevant prior abdominal surgical history includes: Laparoscopic cholecystectomyand umbilical hernia repair. Patient does not have a significant history of GERD/heartburn. ROS General General: No weight change, appetite, fatigue, colon cancer, breast cancer or weakness HEENT HEENT: No difficulty swallowing, eye injury, eye surgery, swollen glands or hoarseness Endo Endocrine: No thyroid disease, diabetes mellitus, thyroid cancer, Hair loss, heat intolerance or cold intolerance Skin Skin: No rash or changing moles Musc Musculoskeletal: Yes arthritis; No back problems, rheumatoid arthritis, gout or joint pain Cardio Cardiovascular: Yes pacemaker and heart disease; No murmur, atrial fibrillation, high blood pressure, heart attack, heart stent, palpitations, shortness of breath with exertion or chest pain Psych Psychiatric: No depression, anxiety or hearing voices Resp Respiratory: No shortness of breath, Yes sleep apnea, No cough, No COPD, No asthma, No emphysema and No wheezing Gastro Gastrointestinal: Yes abdominal pain, No nausea or vomiting, Yes diarrhea, No constipation, No blood in stool, No acid reflux, Yes hemorrhoids, No ulcers, No gallbladder problem and No black,tarry stools [place] Hematologic: Yes blood thinners, No blood disorders, No bleeding, No anemia and No blood clots Neuro Neurologic: No system reviewed and no additional complaints, except as documented, No as per HPI, No abnormal gait, No abnormal hearing, No abnormal movements, No abnormal speech, No behavioral changes, No burning sensations, No confusion, No convulsions, No disequilibrium, No dizziness, No localized weakness, No frequent falls, No headache(s), No lack of coordination, No loss of vision, No memory loss, Yes numbness, No other visual disturbances, No radicularpain, No restless legs, No sensory deficit, No syncope, Yes tingling, No tremor(s), No weakness and No other Exam Const General: cooperative, comfortable and no acute distress Other: Slight pallor to complexion Resp Effort & Inspection: normal respiratory effort GI Other: Well-healed midline laparotomy scar, no visible herniation, nondistended, soft, nontender to palpation x 4 quadrants Assessment and Plan Assessment and Plan (1) Bright red blood per rectum: Status: Acute Comment: Patient with recent complaints of hematochezia. Based on her history it is unclear to me whether this represents likely bleeding from diverticular disease or from hemorrhoids (as patient admits that she has had some itching in bleedingwhen scratching her anus) thus I have recommended proceeding for diagnostic colonoscopy as above, but suggested we consented her for possible endoscopic banding at the same time. After the procedure was described along with its risks she states that she is in agreement. As above, we will need to make sure patient's warfarin is held in anticipation of this possibility as well. Update 08/01/2024: Once again patient had an experience of hematochezia that was self-limited in June of this year. The pictures patient shows are clearly those of hematochezia with bright red clots depicted. Based on this, my own encounter with patient's severe diverticulosis at her colonoscopy last year, andher descriptions of generalized lower abdominal quadrant cramping I am most suspicious for recurrent diverticular bleed. However, patient relates that her PCP is interested in EGD as 1 picture he was shown appeared to demonstrate melena. Plan: Colonoscopy with standard prep to evaluate for source of bleeding, patient warned that many times if due to a diverticular source no etiology is found at the time of endoscopy. (2) History of adenomatous polyp of colon: Status: Acute Comment: Patient with history of rectosigmoid polyp that was 2 cm in size and pathologically reported as a tubular adenoma. Interested in revisiting this area that was previously tattooed to ensure completeness of resection. Plan: Colonoscopy with standard prep to reevaluate side of rectal sigmoid polyp removal last scope September 2023. Patient will require a hold of warfarin prior to procedure. Will see clearance through cardiology. (3) History of melena: Status: Acute Comment: Per history patient had some darker stools with recent bleeding episode. This was not demonstrated in the pictures provided to me, but given the significant drop in patient's hemoglobin and the concerns from another provider I am happy to oblige the request for EGD. Notably, patient does deny any history of refluxor heartburn. Plan: EGD in conjunction with colonoscopy as above. Once again we will need to hold warfarin for probable H. pylori biopsy and any others that are indicated. I have examined the patient and the H&P has been reviewed. There are no clinicalchanges since date of exam. Patient reports no further issues with anemia and denies any symptoms. Confirms she completed prep for today's procedure. She also confirms she held her Coumadin appropriately but we are still awaiting a formal INR check for proceeding. Her abdominal exam is benign. I discussed adding possible hemorrhoid banding to her consent and she states that she would like anything done as indicated provides this additional consent. Provided her INR is reasonable we will plan to proceed to endoscopy suite. 09/14/24 9960 <Electronically signed by Avtar Desir MD> Cosigner Signature (if applicable): CC: Dr. Samantha Anglin MD; Dr. Avtar Desir MD~ Signed [facility] Work Phone: [phone] 560-965805-14-2025 Consult note Author Isabelle Lo [facility] Note Date/Time September 14, 2024 7:37a m [facility] Medical Records Department [address] [place] [address] Pre-Anesthesia Evaluation 09/14/24 0731 MR#: [id number] Acct: [id number] Name: GLORIA MATHEW Rep #:[id number] : 1940 83 From: Isabelel Lo PCP: Dr. Samantha Anglin MD Status:REG SD C Y Race: C Location: [place] [address] ASA Classification* ASA Classification ASA Classification: 3 Assessment & Plan Anesthesia* Anesthesia Assessment Anesthesia Assessment: Discussed sedation and/or anesthesia options, risks, benefits, and alternatives with patient/parents/legal guardian/POA. Questions invited. The patient/parents/legal guardian/POA seems to understand and agrees to proceedwith anesthesia plan. Reviewed the physical assessment, medical history, allergy history and patient home medications list prior to surgery/procedure/anesthetic and documented any changes. Performed airway and anesthesia risk assessments. Anesthesia Type Anesthesia Type: MAC History Source History Obtained from:: Patient and Chart Anesthesia Focused Assessment* Temperature: 97.6 F Pulse Rate: 62 Blood Pressure: 138/61 Respiratory Rate: 17 Pulse Ox: 97 Oxygen Delivery Method: Room Air Airway Assessment Mouth opens: >3 cm Mallampati Score: II Teeth Condition: Intact Focused Labs Anesthesia Preop lab: CBC WBC 6.3 K/mm3 (4.4-11.0) 07/14/24 11:07/14/24 RBC 4.04 M/mm3 (4.2-5.4) L 07/14/24 11:07/14/24 Hgb 11.9 g/dL (12.0-15.0) L 07/14/24 11: 5 Hct 35.8 % (37-47) L 07/14/24 11:07/14/24 Plt Count 226 K/mm3 (150-450) 07/14/24 11:07/14/24 CHEMISTRY Potassium 3.9 mmol/L (3.5-5.1) 05/17/24 11:10 05/17/24 Sodium 141 mmol/L (136-145) 05/17/24 11:10 05/17/24 Magnesium 1.8 mg/dL (1.6-2.6) 10/05/21 20:30 10/05/21 BUN 22 mg/dL (7-18) H 05/17/24 11:10 05/17/24 Creatinine 1.05 mg/dL (0.55-1.02) H 05/17/24 11:10 Glucose 108 mg/dL (74-106) H 05/17/24 11:10 05/17/24 TSH 0.99 uIU/mL (0.358-3.74) 05/18/21 00:20 COAG PT 23.1 SECONDS (11.7-14.9) H 08/25/24 15:42 08/03 08/26 Pre-Assessment Diagnosis/Proposed Procedure Planned Operative Procedure(s): EGD, COLONOSCOPY Anesthesia History Anesthesia History - lump room supervisor: Anesthesia History - lump room supervisor Hx Hospitalization No 09/12/24 09:27 Any Problems With Anesthesia No 09/12/24 09:27 Cholinesterase deficiency No 09/12/24 09:27 You/Your Family Experience No 09/12/24 09:27 fever (hyperthermia) with Relationship Recent Exposure to Contagious No 09/14/24 06:47 Disease Does patient have nerve No 09/12/24 09:27 stimulator Patient instructed to have device shut off --Does patient have Pacemaker Yes 09/14/24 06:47 or ICD? When Was Last Pacemaker Check QUESTION #4 FULL TEXT: You/Your Family Experience fever (hyperthermia) with Anesthesia Any additional information?: No Last Oral Intake Last Oral intake: Last Oral Intake NPO since 22:00 09/14/24 06:47 Meds taken in AM with sips of No 09/14/24 06:47 water? Meds patient instructed to take am of surgery Any additional information?: No PONV PONV - lump room supervisor: PONV - lump room supervisor Female Yes 09/12/24 09:27 HX of Motion Sickness No 09/12/24 09:27 HX of N/V After Surgery No 09/12/24 09:27 Non-Smoker Yes 09/12/24 09:27 Duration of Surgery greater No 09/12/24 09:27 than 60 minutes Number of Risk Factors 2 09/12/24 09:27 PONV Score Moderate Risk 09/12/24 09:27 Any additional information?: No Height & Weight Height & Weight: Anesthesia: Height & Weight Height 5 ft 2 in 09/14/24 06:47 Weight: 60.6 kg 09/14/24 06:47 Body Mass Index (BMI) 24.4 09/14/24 06:47 Respiratory Assessment Respiratory Assessment - lump room supervisor: Respiratory Tract Infection Hx - lump room supervisor Hx Respiratory Tract Infection No 09/12/24 09:27 Any additional information?: No STOP Sleep Apnea STOP Sleep Apnea - lump room supervisor: STOP Sleep Apnea - lump room supervisor Hx Hypertension No 09/12/24 09:27 Hx Sleep Apnea Yes 09/12/24 09:27 CPAP Yes 09/12/24 09:27 BIPAP No 09/12/24 09:27 Do you snore loudly (louder than talking or can be heard Do you often feel tired/ fatigued/ sleepy during daytime? Has anyone observed you stop breathing during sleep? STOP Results Positive 09/12/24 09:27 QUESTION #5 FULL TEXT : Do you snore loudly (louder than talking or can be heard through closed doors)? Any additional information?: No Tobacco Use History Tobacco Use History - lump room supervisor: Tobacco Use History - lump room supervisor Tobacco Use Smoking Status Never smoker 09/12/24 09:27 Hx Tobacco Use No 09/12/24 09:27 Years Smoking Packs Smoked per Day Smoking Cessation Date was within the last 15 years Hx Smoking Cessation Date Hx Smoking Cessation Counseling Any additional information?: No Hematologic Medial History Hematologic Hx - lump room supervisor: Hematologic Medical Hx - ward maid Hx of Blood Transfusion Yes 09/12/24 09:27 Hx of Transfusion in last 3 No 09/12/24 09:27 Months Date of Last Transfusion (if within last 3 months) Ever experience any problems No 09/12/24 09:27 with transfusion(s)? Specify any problems Hx of Preganancy in last 3 No 09/12/24 09:27 Months Nurse Filling Out Transfusion MGRIFFITH 09/12/24 09:27 & Questions: Date: 09/12/24 09/12/24 09:27 Time: 09:29 09/12/24 09:27 Patient unable to answer at this time (ie. confused, unrespo Any additional information?: No /Reproduction History /Reproductive History - lump room supervisor: /Reproductive Hx- lump room supervisor Hx Now No 09/12/24 09:27 Gestational Age (in weeks): EDC: Hx Hx Para Hx Section SAB No 09/12/24 09:27 Any additional information?: No Active Medications Active Medications: Current Medications Generic Name Dose Route Start Last Admin Trade Name Freq PRN Reason Stop Dose Admin Lactated Ringer's 1,000 mls @ 30 mls/hr 09/14/24 06:30 09/14/24 06:58 IV 30 mls/hr .[id number] CARMEL Administration PFSH Medical History Hematoma Skin ulcer of hip with fat layer exposed Loss of hearing Wears hearing aid Wears glasses Cancer High cholesterol Restless legs History of IBS Diverticulosis History of diverticulitis History of echocardiogram History of pacemaker Cardiology follow-up encounter Osteopenia GI bleed Non-smoker CPAP (continuous positive airway pressure) dependence Pacemaker 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, 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 Atrial fibrillation Neuropathic pain Restless leg syndrome Allergic rhinitis Depression Vitamin B12 deficiency Hyperlipidemia Vitamin D deficiency Osteoporosis 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 Presence of permanent cardiac pacemaker (~05/20/21) Depression GERD (gastroesophageal reflux disease) Sleep apnea Anticoagulated on warfarin Acute non-ST elevation myocardial infarction (NSTEMI) Hernia Endometrial cancer Neuropathy Mitral and aortic valve disease Atrial fibrillation Atrial fibrillation with RVR Home Medications ?Medication ?Instructions ?Recorded ?Last Taken ?Type cholecalciferol (vitamin D3) 25 1,000 unit PO DAILY RE PLACEMENT 05/21/18 09:00 History mcg (1,000 unit) tablet (Vitamin D3) cyanocobalamin (vitamin B-12) 1,000 mcg sublingual MIRTA LY 05/21/18 09/13/24 History 1,000 mcg sublingual tablet replacement citalopram 10 mg tablet 10 mg PO QHS depression 08/3 0/21 09/13/24 History biotin 1,000 mcg chewable tablet 1,000 mcg PO DAILY ALVAREZ PPLEMENT 05/06/21 09/13/24 History ipratropium bromide 42 mcg (0.06 2 spray intranasal BI D PRN NASAL 05/06/21 09/13/24 History %) nasal spray pramipexole 0.5 mg tablet 0.75 mg PO QHS RLS 05/06/21 09/13/24 History fexofenadine 180 mg tablet 180 mg PO DAILY PRN allergy 07/09/21 10/05/21 09:00 History (Allergy Relief (fexofenadine)) ascorbic acid (vitamin C) 500 mg 500 mg PO DAILY suppl ement 04/06/23 09/13/24 History tablet calcium 600 mg-D3 800 unit-mag11 1 tab PO DAILY REPLAC EMENT 04/06/23 09/13/24 History 50 pz-uysq-tovkae-stephanie-s.borat tablet (Caltrate 600-D Plus Minerals) gabapentin 300 mg capsule 600 mg PO QHS 07/02/2309/13 History lactase 3,000 unit tablet (Dairy 9,000 unit PO TID PRN lactose 09/09/23 09/13/24 History Relief) intolerance gabapentin 300 mg capsule 300 mg PO DAILY 11/26/23 History multivitamin 1 tab PO DAILY 11/26/2309/01 History simvastatin 10 mg tablet 10 mg PO QHS cholesterol #90 tabs 06/02/24 09/13/24 Rx warfarin 1 mg tablet 1 mg PO .COMPLEX 09/12/24 History Allergy/AdvReac Type Severity Reaction Status Date / Time sertraline (From Zoloft) AdvReac Other Verified 09/12/24 09:18 Family History Mother Heart disease CAD (coronary artery disease) Hypertension Breast cancer Father Heart disease Bradycardia Bradycardia requiring pacemaker placement. Colon cancer Surgical History History of hysterectomy History of colonoscopy History of cardiac catheterization History of hernia surgery History of ankle surgery Hx of atrioventricular node ablation S/P MVR (mitral valve replacement) S/P left atrial appendage ligation S/P Maze operation for atrial fibrillation S/P left atrial appendage ligation History of hysterectomy for cancer History of cholecystectomy S/P ablation operation for arrhythmia History of maze procedure History of mitral valve replacement Social History household members: none Smoking Status: Never smoker alcohol intake: current alcohol intake frequency: holidays/special occasions only substance use type: does not use Review of Systems (Anesthesia) ROS Narrative System reviewed and no additional complaints, except as documented. 09/14/24 0737 <Electronically signed by Isabelle beltran> Date _ Isabelle Lo Cosigner Signature: Date CC: ~ Signed [facility] Work Phone: [phone] History and physical note [facility] Medical Records Department [address] [place] [id number] History & Physical Exam 09/14/24 0746 MR#: [id number] Acct: [id number] Name: GLORIA MATHEW Rep #:[id number] : 1940 83 From: Avtar Tipton PCP: Dr. Samantha Anglin MD Status:REG SD C Location: [place] [address] History and Physical Date of Admission: 09/14/24 MR#: [id number] Acct: [id number] Name: CARLO MATHEWA YUMI Rep #: [id number] : 1940 Provider: Dr. Avtar Desir MD Age/Sex: 83/F Location: [facility] Status: Signed Intake Vital Signs 06/02/2509:24 08/02/2507:09 Height 5 ft 2 in 5 ft 2 in Weight: 140 lb 6 oz BMI 25.7 BP 138/73 H Blood Pressure Location Rt brachial Position Sitting Respiration 18 Pulse 69 Pulse Source Monitor Temp 97.4 F L Temp Source Temporal Pulse Oximetry (%) 98 Oxygen Delivery Method room air Intake Visit Reasons: RECALL LETTER/RECTAL BLEEDING Chief Complaint: recall letter/ rectal bleeding Accompanied by: Sister Is patient in pain?: No Allergies sertraline (From Zoloft) Adverse Reaction (Verified 08/01/24 08:10) Other Medications ?Medication ?Instructions ?Recorded ?Confirmed ?Type cholecalciferol (vitamin D3) 25 1,000 unit PO DAILY REPLACEMENT 05/21/18 08/01/24 History mcg (1,000 unit) tablet (Vitamin D3) cyanocobalamin (vitamin B-12) 1,000 mcg sublingual DAILY 05/21/1807/04 History 1,000 mcg sublingual tablet replacement citalopram 10 mg tablet 10 mg PO QHS depression 12/31/20 5 History biotin 1,000 mcg chewable tablet 1,000 mcg PO DAILY SUPPLEMENT 05/06/21 0 08/01/24 History ipratropium bromide 42 mcg (0.06 2 spray intranasal BID PRN NASAL 2 08/01/24 History %) nasal spray pramipexole 0.5 mg tablet 0.75 mg PO QHS RLS 05/06/21 08/01/24 His tory fexofenadine 180 mg tablet 180 mg PO DAILY PRN allergy 07/09/21 History (Allergy Relief (fexofenadine)) acetaminophen 500 mg tablet 1,000 mg (2 x 500 mg) PO Q6H PRN 2 08/01/24 Rx PRN Pain Score 1-3 #0 tabs ascorbic acid (vitamin C) 500 mg 500 mg PO DAILY supplement 04/06/2307/04 History tablet calcium 600 mg-D3 800 unit-mag11 1 tab PO DAILY REPLACEMENT 04/06/2307/04 History 50 qk-zrwy-tscsty-stephanie-s.borat tablet (Caltrate 600-D Plus Minerals) gabapentin 300 mg capsule 600 mg PO QHS 07/02/23 08/01/24 History lactase 3,000 unit tablet (Dairy 9,000 unit PO TID PRN lactose 09/09/23 0 08/01/24 History Relief) intolerance ferrous sulfate [Iron (ferrous 325 mg PO TID 11/26/23 08/01/24 History sulfate)] folic acid 50 mg PO DAILY 11/26/23 08/01/24 History gabapentin 300 mg capsule 300 mg PO DAILY 11/26/23 08/01/24 Histor y multivitamin 1 tab PO DAILY 11/26/23 08/01/24 History simvastatin 10 mg tablet 10 mg PO QHS cholesterol #90 tabs 08/01/24 Rx warfarin 1 mg tablet 1 mg PO .COMPLEX #120 TABLETS 06/02/24 0 08/01/24 Rx Have you fallen in the past year?: No PFSH Medical History Hematoma Skin ulcer of hip with fat layer exposed Loss of hearing Wears hearing aid Wears glasses Cancer High cholesterol Restless legs History of IBS Diverticulosis History of diverticulitis History of echocardiogram History of pacemaker Cardiology follow-up encounter Osteopenia GI bleed Non-smoker CPAP (continuous positive airway pressure) dependence Pacemaker 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, 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 Atrial fibrillation Neuropathic pain Restless leg syndrome Allergic rhinitis Depression Vitamin B12 deficiency Hyperlipidemia Vitamin D deficiency Osteoporosis 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 Presence of permanent cardiac pacemaker (~05/20/21) Depression GERD (gastroesophageal reflux disease) Sleep apnea Anticoagulated on warfarin Acute non-ST elevation myocardial infarction (NSTEMI) Hernia Endometrial cancer Neuropathy Mitral and aortic valve disease Atrial fibrillation Atrial fibrillation with RVR Surgical History S/P MVR (mitral valve replacement) History of cardiac catheterization History of hernia surgery History of ankle surgery Hx of atrioventricular node ablation S/P left atrial appendage ligation S/P Maze operation for atrial fibrillation S/P left atrial appendage ligation History of hysterectomy for cancer History of cholecystectomy S/P ablation operation for arrhythmia History of maze procedure History of mitral valve replacement Family History Mother Heart disease CAD (coronary artery disease) Hypertension Breast cancerFather Heart disease Bradycardia Bradycardia requiring pacemaker placement. Colon cancer Social History household members: none Smoking Status: Never smoker alcohol intake: current alcohol intake frequency: holidays/special occasions only substance use type: does not use HPI HPI HPI: Patient 83-year-old female who presents on recall notice for repeat colonoscopy after last colonoscopy 09/11/2023 with me showed rectal tubular adenoma. She presents today with her sister. She reportsthat she had another episode of bright red blood per rectum last month which she recalls began on 06/16/2024. She does note that this was bright red in character and shows me several pictures of the clots that were expelled. She insists that her bowel movements during this time were soft every time and of the diarrhea type. Associated with this manifestation of bleeding she notes some generalized lower abdominal cramping. During this experience she saw her primary care provider who ordered labtesting and found some anemia. She also reports that her provider recommended she consider an upperscope in conjunction with a repeat colonoscopyafter reviewing one of her pictures that seem to showpossible melanic change. Patient now shares that her bowel movements have returned to her normal which she reports is 3-4 stools in the morning consisting of soupy consistency withlittle clumps. Her sister questions whether or not Ms. 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 For her part Ms. Mathew denies any persistent lightheadedness, weakness, tiredness, or dizziness. She denies any general major health updates. Specifically she denies any onset of reflux or epigastric discomfort. Below is recapitulated from patient's prior visit for ease of review: Patient is a 82-year-old female who presents for need to schedule diagnostic colonoscopy secondary to recent admission for suspected diverticulitis and acutelower GI bleed. Specifically, patient follows up from an inpatient admission that included 07/02/2023. She is referred from Dr. Anglin. She notesthat her symptoms of vomiting and bleeding remitted spontaneously through conservative measures. She shares she is uncertain about any abdominal pain complaints, but according to her PCP she did havesome abdominal pain that resolved with outpatient Levaquin therapy for diverticulitis. She also shares she is unsure whether this was connected to a bout of what she terms food poisoning couple weeks prior to admission where she experienced uncontrollable diarrhea. She confirms that her bowel movements now are nonbloody and occur 1-3 times per day. She denies any straining. Total toilet time isless than 5 minutes. She is not using any fiber supplements but her diet is mild to moderately highin fiberincluding foods such as fruits and dry cereals. She also shares that she is making intentional effort at consuming more water. She denies constipation but has had some intermittent diarrhea. Patient has had prior colonoscopy. She brings a transcript of the results from 2013 where she underwent a polypectomy and biopsy, but is unable to recall results of procedures even further remotely. Patient has a family history of colon cancer in her father (who is diagnosed at the age of 90) and her aunt (who also was diagnosed late in life). The patient's weight is stable. The patient is prescribed anticoagulants/blood thinners. Specifically she is prescribed warfarin for history of A-fib and mitral valve replacement. Mrs. Mathew also has a history of uterine cancer that was treated with radiationtherapy in 1990. She shares that she has had some off target effects of the radiation with respect to her GI habits. Relevant prior abdominal surgical history includes: Laparoscopic cholecystectomyand umbilical hernia repair. Patient does not have a significant history of GERD/heartburn. ROS General General: No weight change, appetite, fatigue, colon cancer, breast cancer or weakness HEENT HEENT: No difficulty swallowing, eye injury, eye surgery, swollen glands or hoarseness Endo Endocrine: No thyroid disease, diabetes mellitus, thyroid cancer, Hair loss, heat intolerance or cold intolerance Skin Skin: No rash or changing moles Musc Musculoskeletal: Yes arthritis; No back problems, rheumatoid arthritis, gout or joint pain Cardio Cardiovascular: Yes pacemaker and heart disease; No murmur, atrial fibrillation, high blood pressure, heart attack, heart stent, palpitations, shortness of breath with exertion or chest pain Psych Psychiatric: No depression, anxiety or hearing voices Resp Respiratory: No shortness of breath, Yes sleep apnea, No cough, No COPD, No asthma, No emphysema and No wheezing Gastro Gastrointestinal: Yes abdominal pain, No nausea or vomiting, Yes diarrhea, No constipation, No blood in stool, No acid reflux, Yes hemorrhoids, No ulcers, No gallbladder problem and No black,tarry stools [place] Hematologic: Yes blood thinners, No blood disorders, No bleeding, No anemia and No blood clots Neuro Neurologic: No system reviewed and no additional complaints, except as documented, No as per HPI, No abnormal gait, No abnormal hearing, No abnormal movements, No abnormal speech, No behavioral changes, No burning sensations, No confusion, No convulsions, No disequilibrium, No dizziness, No localized weakness, No frequent falls, No headache(s), No lack of coordination, No loss of vision, No memory loss, Yes numbness, No other visual disturbances, No radicularpain, No restless legs, No sensory deficit, No syncope, Yes tingling, No tremor(s), No weakness and No other Exam Const General: cooperative, comfortable and no acute distress Other: Slight pallor to complexion Resp Effort & Inspection: normal respiratory effort GI Other: Well-healed midline laparotomy scar, no visible herniation, nondistended, soft, nontender to palpation x 4 quadrants Assessment and Plan Assessment and Plan (1) Bright red blood per rectum: Status: Acute Comment: Patient with recent complaints of hematochezia. Based on her history it is unclear to me whether this represents likely bleeding from diverticular disease or from hemorrhoids (as patient admits that she has had some itching in bleedingwhen scratching her anus) thus I have recommended proceeding for diagnostic colonoscopy as above, but suggested we consented her for possible endoscopic banding at the same time. After the procedure was described along with its risks she states that she is in agreement. As above, we will need to make sure patient's warfarin is held in anticipation of this possibility as well. Update 08/01/2024: Once again patient had an experience of hematochezia that was self-limited in June of this year. The pictures patient shows are clearly those of hematochezia with bright red clots depicted. Based on this, my own encounter with patient's severe diverticulosis at her colonoscopylast year, andher descriptions of generalized lower abdominal quadrant cramping I am most suspicious for recurrent diverticular bleed. However, patient relates that her PCP is interested in EGD as 1 picture he was shown appeared to demonstrate melena. Plan: Colonoscopy with standard prep to evaluate for source of bleeding, patient warned that many times if due to a diverticular source no etiology is found at the time of endoscopy. (2) History of adenomatous polyp of colon: Status: Acute Comment: Patient with history of rectosigmoid polyp that was 2 cm in size and pathologically reported as a tubular adenoma. Interested in revisiting this area that was previously tattooed to ensure completeness of resection. Plan: Colonoscopy with standard prep to reevaluate side of rectal sigmoid polyp removal last scope September 2023. Patient will require a hold of warfarin prior to procedure. Will see clearance through cardiology. (3) History of melena: Status: Acute Comment: Per history patient had some darker stools with recent bleeding episode. This was not demonstrated in the pictures provided to me, but given the significant drop in patient's hemoglobin and the concerns from another provider I am happy to oblige the request for EGD. Notably, patient does deny any history of refluxor heartburn. Plan: EGD in conjunction with colonoscopy as above. Once again we will need to hold warfarin for probableH. pylori biopsy and any others that are indicated. I have examined the patient and the H&P has been reviewed. There are no clinicalchanges since date of exam. Patient reports no further issues with anemia and denies any symptoms. Confirms she completed prep for today's procedure. She also confirms she held her Coumadin appropriately but we are s till awaiting a formal INR check for proceeding. Her abdominal exam is benign. I discussed adding possible hemorrhoid banding to her consent and she states that she would like anything done as indicated provides this additional consent. Provided her INR is reasonable we will plan to proceed to endoscopy suite. 09/14/24 0750 Cosigner Signature (if applicable): CC: Dr. Samantha Anglin MD; Dr. Avtar Desir MD~ Signed [facility]05-14-2025 [facility] Medical Records Department [address] [place] [address] History Physical Exam 09/14/24 0746 MR#: [id number] Acct: [id number] Name: GLORIA MATHEW Rep #: [id number] : 1940 83 From: Avtar Desir MD PCP: Dr. Samantha Anglin MD Status:[facility] Location: [place] [address] History and Physical Date of Admission: 09/14/24 MR#: [id number] Acct: [id number] Name: QUINCYGLORIA YUMI Rep #: [id number] : 1940 Provider: Dr. Avtar Desir MD Age/Sex: 83/F Location: [facility] Status: Signed Intake Vital Signs 06/02/2509:24 08/02/2507:09 Height 5 ft 2 in 5 ft 2 in Weight: 140 lb 6 oz BMI 25.7 BP 138/73 H Blood Pressure Location Rt brachial Position Sitting Respiration 18 Pulse 69 Pulse Source Monitor Temp 97.4 F L Temp Source Temporal Pulse Oximetry (%) 98 Oxygen Delivery Method room air Intake Visit Reasons: RECALL LETTER/RECTAL BLEEDING Chief Complaint: recall letter/ rectal bleeding Accompanied by: Sister Is patient in pain?: No Allergies sertraline (From Zoloft) Adverse Reaction (Verified 08/01/24 08:10) Other Medications ???Medication ???Instructions ???Recorded ???Confirmed ???Type cholecalciferol (vitamin D3) 25 1,000 unit PO DAILY REPLACEMENT 05/21/18 08/01/24 History mcg (1,000 unit) tablet (Vitamin D3) cyanocobalamin (vitamin B-12) 1,000 mcg sublingual DAILY 05/21/18 08/01/24 Histo ry 1,000 mcg sublingual tablet replacement citalopram 10 mg tablet 10 mg PO QHS depression 12/31/20 08/01/24 History biotin 1,000 mcg chewable tablet 1,000 mcg PO DAILY SUPPLEMENT 05/06/21 08/01/24 Hi story ipratropium bromide 42 mcg (0.06 2 spray intranasal BID PRN NASAL 05/06/21 08/01/24 History %) nasal spray pramipexole 0.5 mg tablet 0.75 mg PO QHS RLS 05/06/21 08/01/24 History fexofenadine 180 mg tablet 180 mg PO DAILY PRN allergy 07/09/21 08/01/24 Hist ory (Allergy Relief (fexofenadine)) acetaminophen 500 mg tablet 1,000 mg (2 x 500 mg) PO Q6H PRN 10/16/21 08/01/24 Rx PRN Pain Score 1-3 #0 tabs ascorbic acid (vitamin C) 500 mg 500 mg PO DAILY supplement 04/06/23 08/01/24 Histo ry tablet calcium 600 mg-D3 800 unit-mag11 1 tab PO DAILY REPLACEMENT 04/06/23 08/01/24 Histo ry 50 ro-zlko-fxbrmv-stephanie-s.borat tablet (Caltrate 600-D Plus Minerals) gabapentin 300 mg capsule 600 mg PO QHS 07/02/23 08/01/24 History lactase 3,000 unit tablet (Dairy 9,000 unit PO TID PRN lactose 09/09/23 08/01/24 Hi story Relief) intolerance ferrous sulfate [Iron (ferrous 325 mg PO TID 11/26/23 08/01/24 History sulfate)] folic acid 50 mg PO DAILY 11/26/23 08/01/24 History gabapentin 300 mg capsule 300 mg PO DAILY 11/26/23 08/01/24 History multivitamin 1 tab PO DAILY 11/26/23 08/01/24 History simvastatin 10 mg tablet 10 mg PO QHS cholesterol #90 tabs 06/02/24 5 Rx warfarin 1 mg tablet 1 mg PO .COMPLEX #120 TABLETS 06/02/24 08/01/24 Rx Have you fallen in the past year?: No PFSH Medical History Hematoma Skin ulcer of hip with fat layer exposed Loss of hearing Wears hearing aid Wears glasses Cancer High cholesterol Restless legs History of IBS Diverticulosis History of diverticulitis History of echocardiogram History of pacemaker Cardiology follow-up encounter Osteopenia GI bleed Non-smoker CPAP (continuous positive airway pressure) dependence Pacemaker 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, left senior living current use of anticoagulant Atrial fibrillation Neuropathic pain Restless leg syndrome Allergic rhinitis Depression Vitamin B12 deficiency Hyperlipidemia Vitamin D deficiency Osteoporosis 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 Presence of permanent cardiac pacemaker ( 05/20/21) Depression GERD (gastroesophageal reflux disease) Sleep apnea Anticoagulated on warfarin Acute non-ST elevation myocardial infarction (NSTEMI) Hernia Endometrial cancer Neuropathy Mitral and aortic valve disease Atrial fibrillation Atrial fibrillation with RVR Surgical History S/P MVR (mitral valve replacement) History of cardiac catheterization History of hernia surgery History of ankle surgery Hx of atrioventricular node ablation S/P left atrial appendage ligation S/P Maze operation for atrial fibrillation S/P left atrial appendage ligation History of hysterectomy for cancer History of cholecystectomy S/P ablation operation for arrhythmia History of maze procedure History of mitral valve replacement Family History (Reviewed 08/01/24 @ 08:09 (more content not included)...[facility]05-14-2025 Consult note [facility] Medical Records Department [address] [place] [address] Pre-Anesthesia Evaluation 09/14/24 0731 MR#: [id number] Acct: [id number] Name: GLORIA MATHEW Rep #:[id number] : 1940 83 From: Isabelle Lo PCP: Dr. Samantha Anglin MD Status:REG SD C Y Race: C Location: [place] [address] ASA Classification* ASA Classification ASA Classification: 3 Assessment & Plan Anesthesia* Anesthesia Assessment Anesthesia Assessment: Discussed sedation and/or anesthesia options, risks, benefits, and alternatives with patient/parents/legal guardian/POA. Questions invited. The patient/parents/legal guardian/POA seems to understand and agrees to proceedwith anesthesia plan. Reviewed the physical assessment, medical history, allergy history and patient home medications list prior to surgery/procedure/anesthetic and documented any changes. Performed airway and anesthesia risk assessments. Anesthesia Type Anesthesia Type: MAC History Source History Obtained from:: Patient and Chart Anesthesia Focused Assessment* Temperature: 97.6 F Pulse Rate: 62 Blood Pressure: 138/61 Respiratory Rate: 17 Pulse Ox: 97 Oxygen Delivery Method: Room Air Airway Assessment Mouth opens: >3 cm Mallampati Score: II Teeth Condition: Intact Focused Labs Anesthesia Preop lab: CBC WBC 6.3 K/mm3 (4.4-11.0) 07/14/24 11:32 07/14/24 RBC 4.04 M/mm3 (4.2-5.4) L 07/14/24 11:32 07/14/24 Hgb 11.9 g/dL (12.0-15.0) L 07/14/24 11:32 5 Hct 35.8 % (37-47) L 07/14/24 11:32 07/14/24 Plt Count 226 K/mm3 (150-450) 07/14/24 11:32 07/14/24 CHEMISTRY Potassium 3.9 mmol/L (3.5-5.1) 05/17/24 11:10 05/17/24 Sodium 141 mmol/L (136-145) 05/17/24 11:10 05/17/24 Magnesium 1.8 mg/dL (1.6-2.6) 10/05/21 20:30 10/05/21 BUN 22 mg/dL (7-18) H 05/17/24 11:10 05/17/24 Creatinine 1.05 mg/dL (0.55-1.02) H 05/17/24 11:10 Glucose 108 mg/dL (74-106) H 05/17/24 11:10 05/17/24 TSH 0.99 uIU/mL (0.358-3.74) 05/18/21 00:20 COAG PT 23.1 SECONDS (11.7-14.9) H 08/25/24 15:42 08/03 08/26 Pre-Assessment Diagnosis/Proposed Procedure Planned Operative Procedure(s): EGD, COLONOSCOPY Anesthesia History Anesthesia History - lump room supervisor: Anesthesia History - lump room supervisor Hx Hospitalization No 09/12/24 09:27 Any Problems With Anesthesia No 09/12/24 09:27 Cholinesterase deficiency No 09/12/24 09:27 You/Your Family Experience No 09/12/24 09:27 fever (hyperthermia) with Relationship Recent Exposure to Contagious No 09/14/24 06:47 Disease Does patient have nerve No 09/12/24 09:27 stimulator Patient instructed to have device shut off --Does patient have Pacemaker Yes 09/14/24 06:47 or ICD? When Was Last Pacemaker Check QUESTION #4 FULL TEXT: You/Your Family Experience fever (hyperthermia) with Anesthesia Any additional information?: No Last Oral Intake Last Oral intake: Last Oral Intake NPO since 22:00 09/14/24 06:47 Meds taken in AM with sips of No 09/14/24 06:47 water? Meds patient instructed to take am of surgery Any additional information?: No PONV PONV - lump room supervisor: PONV - lump room supervisor Female Yes 09/12/24 09:27 HX of Motion Sickness No 09/12/24 09:27 HX of N/V After Surgery No 09/12/24 09:27 Non-Smoker Yes 09/12/24 09:27 Duration of Surgery greater No 09/12/24 09:27 than 60 minutes Number of Risk Factors 2 09/12/24 09:27 PONV Score Moderate Risk 09/12/24 09:27 Any additional information?: No Height & Weight Height & Weight: Anesthesia: Height & Weight Height 5 ft 2 in 09/14/24 06:47 Weight: 60.6 kg 09/14/24 06:47 Body Mass Index (BMI) 24.4 09/14/24 06:47 Respiratory Assessment Respiratory Assessment - lump room supervisor: Respiratory Tract Infection Hx - lump room supervisor Hx Respiratory Tract Infection No 09/12/24 09:27 Any additional information?: No STOP Sleep Apnea STOP Sleep Apnea - lump room supervisor: STOP Sleep Apnea - lump room supervisor Hx Hypertension No 09/12/24 09:27 Hx Sleep Apnea Yes 09/12/24 09:27 CPAP Yes 09/12/24 09:27 BIPAP No 09/12/24 09:27 Do you snore loudly (louder than talking or can be heard Do you often feel tired/ fatigued/ sleepy during daytime? Has anyone observed you stop breathing during sleep? STOP Results Positive 09/12/24 09:27 QUESTION #5 FULL TEXT : Do you snore loudly (louder than talking or can be heard through closeddoors)? Any additional information?: No Tobacco Use History Tobacco Use History - lump room supervisor: Tobacco Use History - lump room supervisor Tobacco Use Smoking Status Never smoker 09/12/24 09:27 Hx Tobacco Use No 09/12/24 09:27 Years Smoking Packs Smoked per Day Smoking Cessation Date was within the last 15 years Hx Smoking Cessation Date Hx Smoking Cessation Counseling Any additional information?: No Hematologic Medial History Hematologic Hx - lump room supervisor: Hematologic Medical Hx - ward maid Hx of Blood Transfusion Yes 09/12/24 09:27 Hx of Transfusion in last 3 No 09/12/24 09:27 Months Date of Last Transfusion (if within last 3 months) Ever experience any problems No 09/12/24 09:27 with transfusion(s)? Specify any problems Hx of Preganancy in last 3 No 09/12/24 09:27 Months Nurse Filling Out Transfusion MGRIFFITH 09/12/24 09:27 & Questions: Date: 09/12/24 09/12/24 09:27 Time: 09/12/24 09:27 Patient unable to answer at this time (ie. confused, unrespo Any additional information?: No /Reproduction History /Reproductive History - lump room supervisor: /Reproductive Hx- lump room supervisor Hx Now No 09/12/24 09:27 Gestational Age (in weeks): EDC: Hx Hx Para Hx Section SAB No 09/12/24 09:27 Any additional information?: No Active Medications Active Medications: Current Medications Generic Name Dose Route Start Last Admin Trade Name Freq PRN Reason Stop Dose Admin Lactated Ringer's 1,000 mls @ 30 mls/hr 09/14/24 06:30 09/14/24 06:58 IV 30 mls/hr .[id number] CARMEL Administration PFSH Medical History Hematoma Skin ulcer of hip with fat layer exposed Loss of hearing Wears hearing aid Wears glasses Cancer High cholesterol Restless legs History of IBS Diverticulosis History of diverticulitis History of echocardiogram History of pacemaker Cardiology follow-up encounter Osteopenia GI bleed Non-smoker CPAP (continuous positive airway pressure) dependence Pacemaker 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, left senior living current use of anticoagulant Atrial fibrillation Neuropathic pain Restless leg syndrome Allergic rhinitis Depression Vitamin B12 deficiency Hyperlipidemia Vitamin D deficiency Osteoporosis 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 Presence of permanent cardiac pacemaker (~05/20/21) Depression GERD (gastroesophageal reflux disease) Sleep apnea Anticoagulated on warfarin Acute non-ST elevation myocardial infarction (NSTEMI) Hernia Endometrial cancer Neuropathy Mitral and aortic valve disease Atrial fibrillation Atrial fibrillation with RVR Home Medications ?Medication ?Instructions ?Recorded ?Last Taken ?Type cholecalciferol (vitamin D3) 25 1,000 unit PO DAILY RE PLACEMENT 05/21/18 09:00 History mcg (1,000 unit) tablet (Vitamin D3) cyanocobalamin (vitamin B-12) 1,000 mcg sublingual MIRTA LY 05/21/18 09/13/24 History 1,000 mcg sublingual tablet replacement citalopram 10 mg tablet 10 mg PO QHS depression 08/3 009/13/24 History biotin 1,000 mcg chewable tablet 1,000 mcg PO DAILY ALVAREZ PPLEMENT 05/06/21 09/13/24 History ipratropium bromide 42 mcg (0.06 2 spray intranasal BI D PRN NASAL 05/06/21 09/13/24 History %) nasal spray pramipexole 0.5 mg tablet 0.75 mg PO QHS RLS 05/06/21 09/13/24 History fexofenadine 180 mg tablet 180 mg PO DAILY PRN allergy 07/09/21 10/05/21 09:00 History (Allergy Relief (fexofenadine)) ascorbic acid (vitamin C) 500 mg 500 mg PO DAILY suppl ement 04/06/23 09/13/24 History tablet calcium 600 mg-D3 800 unit-mag11 1 tab PO DAILY REPLAC EMENT 04/06/23 09/13/24 History 50 rf-bdhq-qcesvh-stephanie-s.borat tablet (Caltrate 600-D Plus Minerals) gabapentin 300 mg capsule 600 mg PO QHS 07/02/2309/13 History lactase 3,000 unit tablet (Dairy 9,000 unit PO TID PRN lactose 09/09/23 09/13/24 History Relief) intolerance gabapentin 300 mg capsule 300 mg PO DAILY 11/26/23 History multivitamin 1 tab PO DAILY 11/26/2309/01 History simvastatin 10 mg tablet 10 mg PO QHS cholesterol #90 tabs 06/02/24 09/13/24 Rx warfarin 1 mg tablet 1 mg PO .COMPLEX 09/12/24 History Allergy/AdvReac Type Severity Reaction Status Date / Time sertraline (From Zoloft) AdvReac Other Verified 09/12/24 09:18 Family History Mother Heart disease CAD (coronary artery disease) Hypertension Breast cancer Father Heart disease Bradycardia Bradycardia requiring pacemaker placement. Colon cancer Surgical History History of hysterectomy History of colonoscopy History of cardiac catheterization History of hernia surgery History of ankle surgery Hx of atrioventricular node ablation S/P MVR (mitral valve replacement) S/P left atrial appendage ligation S/P Maze operation for atrial fibrillation S/P left atrial appendage ligation History of hysterectomy for cancer History of cholecystectomy S/P ablation operation for arrhythmia History of maze procedure History of mitral valve replacement Social History household members: none Smoking Status: Never smoker alcohol intake: current alcohol intake frequency: holidays/special occasions only substance use type: does not use Review of Systems (Anesthesia) ROS Narrative System reviewed and no additional complaints, except as documented. 09/14/24 0737 a> Date _ Isabelle Flores Signature: Date CC: ~ Signed [facility]03-31-2025 Evaluation note* Diagnosis Onset Date Resolution Status Admit Date Bright red blood per rectum acute August 01, 2024 7:50am History of adenomatous polyp of colon acute August 01, 2024 7:50am History of melena acute July 042024 7:50am [facility] Work Phone: 1(489) 101-179901-30-2025 Evaluation note* Diagnosis Onset Date Resolution Status Admit Date S/P MVR (mitral valve replacement) acute June 02 10:21am Atrial fibrillation chronic 2024 10:21am Presence of permanent cardia c pacemaker May, chronic June 02 10:21am Hx of atrioventricular node ablation inactive June 02 10:21am Hyperlipidemia inactive June 022024 10:21am Bright red blood per rectum acute August 01, 2024 7:50am History of adenomatous polyp of colon acute August 01, 2024 7:50am History of melena acute July 042024 7:50am [facility] Work Phone: 1(209) 425-540805-09-2024 History and physical note Author Avtar Desir [facility] September 10, 2023 9:17am Note Date/Time September 10, 2023 9:18am [facility] Medical Records Department [address] [place] [address] History & Physical Exam 09/10/23915 MR#: [id number] Acct: [id number] Name: GLORIA MATHEW Rep #:[id number] : 1940 82 From: Avtar Tipton PCP: Dr. Samantha Anglin MD Status:REG SD C Location: [place] [address] History and Physical Date of Admission: 09/10/23 Date of Service: 08/05/23 MR#: [id number] Acct: [id number] Name: GLORIA MATHEW Rep #: [id number] : 1940 Provider: Dr. Avtar Desir MD Age/Sex: 82/F Location: [facility] Status: Signed with Addenda ADDENDUM by Dr. Avtar Desir MD on 08/05/23 at 1601 Intake Chief Complaint: blood in stool Allergies sertraline [From Zoloft] Adverse Reaction (Verified 08/05/23 09:23) Other Medications cholecalciferol (vitamin D3) 25 mcg (1,000 unit) tablet (Vitamin D3) 1,000 unit PO DAILY REPLACEMENT 05/21/18 [History Confirmed 08/05/23] cyanocobalamin (vitamin B-12) 1,000 mcg sublingual tablet 1,000 mcg sublingual DAILY replacement 05/21/18 [History Confirmed 08/05/23] citalopram 10 mg tablet 10 mg PO QHS depression 12/31/20 [History Confirmed 08/05/23] simvastatin 10 mg tablet 10 mg PO QHS cholesterol 02/23/21 [History Confirmed 08/05/23] biotin 1,000 mcg chewable tablet 1,000 mcg PO DAILY SUPPLEMENT 05/06/21 [History Confirmed 08/05/23] ipratropium bromide 42 mcg (0.06 %) nasal spray 2 spray intranasal BID NASAL 05/06/21 [History Confirmed 08/05/23] pramipexole 0.5 mg tablet 0.75 mg PO QHS RLS 05/06/21 [History Confirmed 08/05/23] fexofenadine 180 mg tablet (Allergy Relief (fexofenadine)) 180 mg PO DAILY allergy 07/09/21 [History Confirmed 08/05/23] acetaminophen 500 mg tablet 1,000 mg (2 x 500 mg) PO Q6H PRN PRN Pain Score 1-3 #0 tabs 10/16/21 [Rx Confirmed 08/05/23] warfarin 1 mg tablet See Rx Instructions .Route .COMPLEX #90 tabs 03/30/23 [Rx Confirmed 08/05/23] ascorbic acid (vitamin C) 500 mg tablet 500 mg PO DAILY supplement 04/06/23 [History Confirmed 08/05/23] calcium 600 mg-D3 800 unit-mag11 50 ng-wygg-ykejtu-stephanie-s.borat tablet (Ohipdtsw776-B Plus Minerals) 1 tab PO DAILY REPLACEMENT 04/06/23 [History Confirmed 08/05/23] gabapentin 300 mg capsule 300 mg PO DAILY 07/02/23 [History Confirmed 08/05/23] gabapentin 300 mg capsule 600 mg PO QHS 07/02/23 [History Confirmed 08/05/23] Assessment and Plan Assessment and Plan (1) Acute diverticulitis: Status: Acute Comment: Patient 82-year-old female who follows up after a reported bout of acute diverticulitis at occasioned a brief inpatient stay the end of June. She has recovered after application of conservative measures and denies any persistent symptoms. Her abdominal exam, further, is benign. I did review patient's CT imaging from 07/02/2023 and her inflammation of the colon is mild atbest. Still, I agree with proceeding with a diagnostic colonoscopy since it hasbeen 10 years since her last investigative endoscopy which noted the presence ofcolonic polyps, mild colitis, and severe pancolonic diverticulosis. Patient'ángela, who accompanies her shares that there is significant longevity within her family tree and a number of family members that have lived into their late 90s/early 100s. Until this colonoscopy I have advised increasing fiber and water intake as a means of hopefully decreasing patient's diarrhea and constipation concerns. She will require a hold of her warfarin ahead of this procedure and we will seek approval from the heart group. (2) Bright red blood per rectum: Status: Acute Comment: Patient with recent complaints of hematochezia. Based on her history it is unclear to me whether this represents likely bleeding from diverticular disease or from hemorrhoids (as patient admits that she has had some itching in bleedingwhen scratching her anus) thus I have recommended proceeding for diagnostic colonoscopy as above, but suggested we consented her for possible endoscopic banding at the same time. After the procedure was described along with its risks she states that she is in agreement. As above, we will need to make sure patient's warfarin is held in anticipation of this possibility as well. Orders: Orders Colonoscopy 09/10/23 Plan Details Additional Comments: Following patient's clinical visit we obtained records from a interval colonoscopy in 2018 where random colon biopsies were performed and the final pathology for these biopsies showed colonic mucosa with no significant pathologic changes. Notably, the endoscopist did not find any evidence of polyps. Unfortunately, the pathology from the biopsies obtained during patient's 2014 exam are no longer available. 08/05/23 1601 <Electronically signed by Avtar Deisr MD> Date Avtar Desir MD cc: Dr. Samantha Anglin MD ~* Signed Intake Vital Signs 07/02/2414:06 08/04/2408:22 Height 5 ft 2 in 5 ft 2 in Weight: 146 lb BMI 26.6 BP 122/78 H Blood Pressure Location Rt brachial Position Sitting Respiration 17 Pulse 67 Pulse Source Monitor Pulse Oximetry (%) 93 Oxygen Delivery Method room air Intake Visit Reasons: BLOOD IN STOOL Chief Complaint: blood in stool Is patient in pain?: No Allergies sertraline [From Zoloft] Adverse Reaction (Verified 08/05/23 09:23) Other Medications cholecalciferol (vitamin D3) 25 mcg (1,000 unit) tablet (Vitamin D3) 1,000 unit PO DAILY REPLACEMENT 05/21/18 [History Confirmed 08/05/23] cyanocobalamin (vitamin B-12) 1,000 mcg sublingual tablet 1,000 mcg sublingual DAILY replacement 05/21/18 [History Confirmed 08/05/23] citalopram 10 mg tablet 10 mg PO QHS depression 12/31/20 [History Confirmed 08/05/23] simvastatin 10 mg tablet 10 mg PO QHS cholesterol 02/23/21 [History Confirmed 08/05/23] biotin 1,000 mcg chewable tablet 1,000 mcg PO DAILY SUPPLEMENT 05/06/21 [History Confirmed 08/05/23] ipratropium bromide 42 mcg (0.06 %) nasal spray 2 spray intranasal BID NASAL 05/06/21 [History Confirmed 08/05/23] pramipexole 0.5 mg tablet 0.75 mg PO QHS RLS 05/06/21 [History Confirmed 08/05/23] fexofenadine 180 mg tablet (Allergy Relief (fexofenadine)) 180 mg PO DAILY allergy 07/09/21 [History Confirmed 08/05/23] acetaminophen 500 mg tablet 1,000 mg (2 x 500 mg) PO Q6H PRN PRN Pain Score 1-3 #0 tabs 10/16/21 [Rx Confirmed 08/05/23] warfarin 1 mg tablet See Rx Instructions .Route .COMPLEX #90 tabs 03/30/23 [Rx Confirmed 08/05/23] ascorbic acid (vitamin C) 500 mg tablet 500 mg PO DAILY supplement 04/06/23 [History Confirmed 08/05/23] calcium 600 mg-D3 800 unit-mag11 50 tl-cahl-pbpckg-stephanie-s.borat tablet (Ufhdkmtr760-V Plus Minerals) 1 tab PO DAILY REPLACEMENT 04/06/23 [History Confirmed 08/05/23] gabapentin 300 mg capsule 300 mg PO DAILY 07/02/23 [History Confirmed 08/05/23] gabapentin 300 mg capsule 600 mg PO QHS 07/02/23 [History Confirmed 08/05/23] PFSH Medical History Acute non-ST elevation myocardial infarction (NSTEMI) Allergic rhinitis Anticoagulated on warfarin Atrial fibrillation Atrial fibrillation Atrial fibrillation with RVR 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 CPAP (continuous positive airway pressure) dependence Depression Depression Endometrial cancer GERD (gastroesophageal reflux disease) GI bleed Hernia Hyperlipidemia senior living current use of anticoagulant Mitral and aortic valve disease Neuropathic pain Neuropathy Non-smoker Osteopenia Osteoporosis Pacemaker 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, left Presence of permanent cardiac pacemaker (~05/20/21) Restless leg syndrome Sleep apnea Vitamin B12 deficiency Vitamin D deficiency Surgical History History of cholecystectomy History of hysterectomy for cancer History of maze procedure History of mitral valve replacement Hx of atrioventricular node ablation S/P ablation operation for arrhythmia S/P left atrial appendage ligation S/P left atrial appendage ligation S/P Maze operation for atrial fibrillation S/P MVR (mitral valve replacement) Family History Mother Heart disease CAD (coronary artery disease) Hypertension Breast cancerFather Heart disease Bradycardia Bradycardia requiring pacemaker placement. Colon cancer Social History household members: none Smoking Status: Never smoker alcohol intake: current alcohol intake frequency: holidays/special occasions only substance use type: does not use HPI HPI HPI: Patient is a 82-year-old female who presents for need to schedule diagnostic colonoscopy secondary to recent admission for suspected diverticulitis and acutelower GI bleed. Specifically, patient follows up from an inpatient admission that included 07/02/2023. She is referred from Dr. Anglin. She notes that her symptoms of vomiting and bleeding remitted spontaneously through conservative measures. She shares she is uncertain about any abdominal pain complaints, but according to her PCP she did have some abdominal pain that resolved with outpatient Levaquin therapy for diverticulitis. She also shares she is unsure whether this was connected to a bout of what she terms food poisoning couple weeks prior to admission where she experienced uncontrollable diarrhea. She confirms that her bowel movements now are nonbloody and occur 1-3 times per day. She denies any straining. Total toilet time is less than 5 minutes. She is not using any fiber supplements but her diet is mild to moderately high in fiberincluding foods such as fruits and dry cereals. She also shares that she is making intentional effort at consuming more water. She denies constipation but has had some intermittent diarrhea. Patient has had prior colonoscopy. She brings a transcript of the results from 2013 where she underwent a polypectomy and biopsy, but is unable to recall results of procedures even further remotely. Patient has a family history of colon cancer in her father (who is diagnosed at the age of 90) and her aunt (who also was diagnosed late in life). The patient's weight is stable. The patient is prescribed anticoagulants/blood thinners. Specifically she is prescribed warfarin for history of A-fib and mitral valve replacement. Mrs. Mathew also has a history of uterine cancer that was treated with radiationtherapy in 1990. She shares that she has had some off target effects of the radiation with respect to her GI habits. Relevant prior abdominal surgical history includes: Laparoscopic cholecystectomyand umbilical hernia repair. Patient does not have a significant history of GERD/heartburn. ROS General General: No weight change, appetite, fatigue, colon cancer, breast cancer or weakness HEENT HEENT: No difficulty swallowing, eye injury, eye surgery, swollen glands or hoarseness Endo Endocrine: No thyroid disease, diabetes mellitus, thyroid cancer, Hair loss, heat intolerance or cold intolerance Skin Skin: No rash or changing moles Musc Musculoskeletal: Yes arthritis; No back problems, rheumatoid arthritis, gout or joint pain Cardio Cardiovascular: Yes pacemaker and heart disease; No murmur, atrial fibrillation, high blood pressure, heart attack, heart stent, palpitations, shortness of breat with exertion or chest pain Psych Psychiatric: No depression, anxiety or hearing voices Resp Respiratory: No shortness of breath, Yes sleep apnea, No cough, No COPD, No asthma, No emphysema and No wheezing Gastro Gastrointestinal: Yes abdominal pain, No nausea or vomiting, Yes diarrhea, No constipation, No blood in stool, No acid reflux, Yes hemorrhoids, No ulcers, No gallbladder problem and No black,tarry stools [place] Hematologic: Yes blood thinners, No blood disorders, No bleeding, No anemia and No blood clots Neuro Neurologic: No system reviewed and no additional complaints, except as documented, No as per HPI, No abnormal gait, No abnormal hearing, No abnormal movements, No abnormal speech, No behavioral changes, No burning sensations, No confusion, No convulsions, No disequilibrium, No dizziness, No localized weakness, No frequent falls, No headache(s), No lack of coordination, No loss ofvision, No memory loss, Yes numbness, No other visual disturbances, No radicularpain, No restless legs, No sensory deficit, No syncope, Yes tingling, No tremor(s), No weakness and No other Exam Const General: cooperative and comfortable Orientation: alert, awake and oriented x3 Resp Effort & Inspection: normal respiratory effort GI Other: Nondistended, well-healed laparotomy incision from prior hysterectomy, well- healed port site incisions from prior cholecystectomy, no visible herniation, soft, nontender to palpation x 4 quadrants Assessment and Plan Assessment and Plan (1) Acute diverticulitis: Status: Acute Comment: Patient 82-year-old female who follows up after a reported bout of acute diverticulitis at occasioned a brief inpatient stay the end of June. She has recovered after application of conservative measures and denies any persistent symptoms. Her abdominal exam, further, is benign. I did review patient's CT imaging from 07/02/2023 and her inflammation of the colon is mild atbest. Still, I agree with proceeding with a diagnostic colonoscopy since it hasbeen 10 years since her last investigative endoscopy which noted the presence ofcolonic polyps, mild colitis, and severe pancolonic diverticulosis. Patient'sdaughter, who accompanies her shares that there is significant longevity within her family tree and a number of family members that have lived into their late 90s/early 100s. Until this colonoscopy I have advised increasing fiber and water intake as a means of hopefully decreasing patient's diarrhea and constipation concerns. She will require a hold of her warfarin ahead of this procedureand we will seek approval from the heart group. Plan: Plan will be to complete colonoscopy on first mutually agreeable date under local MAC. Pre-procedure prep discussed and paper instructions provided. Patient is also made aware that she will need to have a four horse hitch driver with her the day of the procedure. (2) Bright red blood per rectum: Status: Acute Comment: Patient with recent complaints of hematochezia. Based on her history it is unclear to me whether this represents likely bleeding from diverticular disease or from hemorrhoids (as patient admits that she has had some itching in bleedingwhen scratching her anus) thus I have recommended proceeding for diagnostic colonoscopy as above, but suggested we consented her for possible endoscopic banding at the same time. After the procedure was described along with its risks she states that she is in agreement. As above, we will need to make sure patient's warfarin is held in anticipation of this possibility as well. Plan: Consent for possible hemorrhoid banding at the time of diagnostic colonoscopy I have examined the patient and the H&P has been reviewed. There are no clinicalchanges since date of exam. Patient confirms that she has not had any further abdominal discomfort or bleeding. She confirms that she completed her prep successfully and her output is now clear. She has held her Coumadin for today'sprocedure and her INR is 1.6 today. Given that this is mildly elevated I sharedwe would do judicious biopsying and only band her hemorrhoids if appearing clinically significant. I also suggested that she wait 48 hours before resumingher Coumadin if either of these 2 things are done to mitigate her risk for postprocedural bleeding. She expressed understanding and will now proceed to the endoscopy suite for planned procedure. 09/10/23916 <Electronically signed by Avtar Desir MD> Cosigner Signature (if applicable): CC: Dr. Samantha Anglin MD; Dr. Avtar Desir MD~ Signed [facility] Work Phone: 1(742) 826-756605-09-2024 Procedure [facility] 09-10-2023 Procedure [facility]03-01-2024 Discharge summary [facility] July 03, 2023 1:33pm Note Date/Time July 03, 2023 1:29 pm [facility] Medical Records Department [address] [place] [address] Discharge Summary 07/03/23 1327 MR#: [id number] Acct: [id number] Name: GLORIA MATHEW Rep #:[id number] : 1940 82 From: Jaciel Sesay DO PCP: Dr. Denise Vallecillo MD Status:ADM IN Location: [id number] Providers Date of Admission: 07/02/23 Primary Care Physician: Dr. Denise Vallecillo MD Reason For Visit: GI BLEED Diagnosis Discharge Diagnosis (1) Acute lower gastrointestinal bleeding: Status: Acute Code(s): K92.2 - Gastrointestinal hemorrhage, unspecified Plan Acute diverticulitis of the sigmoid colon * abx w amp/SB in the hospital. Will transition her to Augmentin pleated 7-day course of antibiotics. * Patient tolerated diet with transitional diet. GI bleed * Likely diverticular etiology exacerbated by warfarin * Resolved. Due to diverticulosis complicated by diverticulitis while being on warfarin. Will have patient hold the warfarin for 48 hours and then resume. Patient advised to return if she has recurrent bleeding. Chronic conditions: * chronic atrial fibrillation with paced rhythm-patient will remain off Coumadin for now due to her hematochezia * chronic depression-patient is on citalopram * hyperlipidemia-patient is on simvastatin VTE prophylaxis: not indicated Medications at Discharge Home Medications cholecalciferol (vitamin D3) 25 mcg (1,000 unit) tablet (Vitamin D3) 1,000 unit PO DAILY REPLACEMENT 05/21/18 cyanocobalamin (vitamin B-12) 1,000 mcg sublingual tablet 1,000 mcg sublingual DAILY replacement 05/21/18 citalopram 10 mg tablet 10 mg PO QHS depression 12/31/20 simvastatin 10 mg tablet 10 mg PO QHS cholesterol 02/23/21 biotin 1,000 mcg chewable tablet 1,000 mcg PO DAILY SUPPLEMENT 05/06/21 ipratropium bromide 42 mcg (0.06 %) nasal spray 2 spray intranasal BID NASAL 05/06/21 pramipexole 0.5 mg tablet 0.75 mg PO QHS RLS 05/06/21 fexofenadine 180 mg tablet (Allergy Relief (fexofenadine)) 180 mg PO DAILY allergy 07/09/21 acetaminophen 500 mg tablet 1,000 mg (2 x 500 mg) PO Q6H PRN PRN Pain Score 1-3 #0 tabs 10/16/21 warfarin 1 mg tablet See Rx Instructions .Route .COMPLEX #90 tabs 03/30/23 ascorbic acid (vitamin C) 500 mg tablet 500 mg PO DAILY supplement 04/06/23 calcium 600 mg-D3 800 unit-mag11 50 pm-kmns-yisevn-stephanie-s.borat tablet (Xexxtejp949-W Plus Minerals) 1 tab PO DAILY REPLACEMENT 04/06/23 gabapentin 300 mg capsule 300 mg PO DAILY 07/02/23 gabapentin 300 mg capsule 600 mg PO QHS 07/02/23 warfarin 1 mg tablet 2 mg PO MO 07/02/23 amoxicillin 875 mg-potassium clavulanate 125 mg tablet 1 tab PO BID #14 tabs 07/03/23 Hospital Course Operations None Procedures None Summary of Care Provided Hospital Course: Patient presented with GI bleed. CAT scan showed diverticulitis. Patient was started on antibiotics. Bleeding is stopped. Likely due to the diverticulitis/diverticulosis while being on warfarin. INR though was therapeutic. Patient hold her warfarin for the next 48 hours. Patient will be discharged with antibiotics with Augmentin. Weight / BMI Weight Weight: 67.1 kg Body Mass Index (BMI) 27.0 ABG / Lab / Microbiology Data 07/03/23 06:08 07/02/23 12:10 Laboratory: Laboratory Results - last 24 hr 07/02/23 12:10: Blood Type O NEGATIVE, Antibody Screen NEGATIVE 07/02/23 17:43: Hgb 12.5, Hct 36.0 L 07/03/23 06:08: WBC 5.1, RBC 3.84 L, Hgb 11.8 L, Hct 34.9 L, MCV 90.9, MCH 30.7,MCHC 33.8, RDW Std Deviation 42.4, RDW Coeff of Zulma 12.8, Plt Count 174, MPV 8.9, Immature Gran % (Auto) 0.400, Neut % (Auto) 61.8, Lymph % (Auto) 23.8, Amite% (Auto) 8.3, Eos % (Auto) 4.3, Baso % (Auto) 1.4 H, Absolute Neuts (auto) 3.1, Absolute Lymphs (auto) 1.21, Nucleated RBC % 0, PT 31.2 H, INR 3.0 Radiography Diagnostic Testing: Radiology Impression Abdomen/Pelvis CT 07/02/23 11:58 IMPRESSION: Sigmoid diverticulosis and mild degree of sigmoid diverticulitis. Status post cholecystectomy. Fatty liver. Bilateral renal cysts more prominent on the right side. Nonobstructive calculus in the left kidney. Electronically Signed: Franky Grimes MD at 13:50 EST , D/C Instructions Discharge Diet: - (Hudson diet. Advance as tolerated.) Meaningful Use Info Meaningful Use Diagnoses (Choose all that apply): None applicable Discharge Plan Admission Admit Date/Time: 07/02/23 15:14 Primary Reason for Your Visit: Diverticulitis. GI bleed. Attending Provider: Jaciel Sesay Primary Care Provider: Denise Vallecillo Consulting Providers: Piter Perdomo Instructions Additional Instructions / Restrictions: You have acute diverticulitis, which is an infection of the diverticulosis in your colon. Treatment is antibiotics. With this, you have blood complicated bybeing on Coumadin. Do recommend holding off on your Coumadin for the next 48 hours and then to resume that as normally. Do recommend that you follow-up [facility] doctor in the coming week to have your INR rechecked to make sure that it is in therapeutic range. Discharge Orders/Prescriptions Prescriptions: New amoxicillin-pot clavulanate 875-125 mg tablet 1 tab PO BID Qty: 14 0RF Continued fexofenadine [Allergy Relief (fexofenadine)] 180 mg tablet 180 mg PO DAILY cyanocobalamin (vitamin B-12) 1,000 MCG tablet, sublingual 1,000 mcg sublingual DAILY cholecalciferol (vitamin D3) [Vitamin D3] 1,000 UNIT tablet 1,000 unit PO DAILY Caltrate 600-D Plus Minerals 600 mg calcium- 800 unit-50 mg tablet 1 tab PO DAILY citalopram 10 mg tablet 10 mg PO QHS simvastatin 10 mg tablet 10 mg PO QHS pramipexole 0.5 mg tablet 0.75 mg PO QHS ipratropium bromide 42 mcg (0.06 %) spray,non-aerosol 2 spray INTRANASAL BID biotin 1,000 mcg Tablet,Chewable 1,000 mcg PO DAILY acetaminophen 500 mg Tablet 1,000 mg PO Q6H PRN PRN (Reason: Pain Score 1-3) Qty: 0 0RF gabapentin 300 mg capsule 600 mg PO QHS gabapentin 300 mg capsule 300 mg PO DAILY warfarin 1 mg tablet 2 mg PO MO ascorbic acid (vitamin C) 500 mg tablet 500 mg PO DAILY Held warfarin 1 mg tablet See Rx Instructions .ROUTE .COMPLEX Qty: 90 3RF Hold Instructions: Resume on 07/05/23. Protocol: Dose Management Condition: Thursday Dose/Route: 1 mg Instruction: 1 x 1 mg tablet Condition: Thursday Dose/Route: 2 mg Instruction: 2 x 1 mg tablets Condition: Thursday Dose/Route: 1 mg Instruction: 1 x 1 mg tablet Condition: Thursday Dose/Route: 1 mg Instruction: 1 x 1 mg tablet Condition: Dose/Route: 1 mg Instruction: 1 x 1 mg tablet Condition: Thursday Dose/Route: 1 mg Instruction: 1 x 1 mg tablet Condition: Thursday Dose/Route: 1 mg Instruction: 1 x 1 mg tablet Protocol Text: Adjustment Start Date: Thursday06/30/23 INR Value: 2.7 INR Date: 06/30/23 Recheck Date: 07/30/23 Dose Instruction: TAKE 1 TABLET AT BEDTIME FOR BLOOD THINNER Rx Instructions: TAKE 1 TABLET AT BEDTIME FOR BLOOD THINNER Referrals / Follow Up: Denise Vallecillo MD [Primary Care Provider] - Within 1 Week Disposition Disposition (needs filled in before D/C Order can be placed): Home, Self Care Charges/Coding Visit Charges Inpatient E&M: 54619 Disch Hosp >30min 07/03/23 1333 <Electronically signed by Jaciel Sesay DO> Cosigner Signature (if applicable): CC: Dr. Jaciel Sesay DO; Dr. Denise Vallecillo MD~ Signed [facility] Work Phone: [phone]) 553-722803-01-2024 Progress note Author Jaciel Sesay [facility] July 03, 2023 1:27pm Note Date/Time July 03, 2023 7:42 am [facility] Medical Records Department [address] [place] [address] Progress Note - Hospitalist 07/03/23 0738 MR#: [id number] Acct: [id number] Name: GLORIA MATHEW Rep #:[id number] : 1940 82 From: Jaciel Sesay DO PCP: Dr. Denise Vallecillo MD Status:ADM IN [place]: [facility] [place] [id number] Reason for Visit Reason for Visit: Diagnoses Gastrointestinal hemorrhage, unspecified (07/02/23) Subjective Subjective Feeling well. Did have some suprapubic abdominal pain but that seems to be resolving. No further bleeding since she has been here. Objective Data Objective Data Vital Signs: Vital Signs Temp Pulse Resp BP Pulse Ox O2 Del Method 36.3 C L 74 18 127/64 H 98 Room Air 07/03/23 05:48 07/03/23 05:48 07/03/23 05:48 07/03/23 05:48 07/03/23 05:48 07/03/23 05:48 Oxygen Delivery Method Room Air Weight: 67.1 kg Body Mass Index (BMI) 27.0 Intake & Output: Intake and Output for Last 24 Hours 07/01/23 07/02/23 07/03/23 23:59 23:59 23:59 Intake Total 2314.58 / 3608.33 1405.75 / 1405.75 Output Total 100 / 100 Balance 2314.58 / 3608.33 1305.75 / 1305.75 Lab / Micro Data 07/03/23 06:08 07/02/23 12:10 Labs: Laboratory Results - last 24 hr 07/02/23 12:10: WBC 5.1, RBC 4.39, Hgb 13.4, Hct 39.4, MCV 89.7, MCH 30.5, MCHC 34.0, RDW Std Deviation 41.0, RDW Coeff of Zulma 12.4, Plt Count 187, MPV 8.6, Immature Gran % (Auto) 0.200, Neut % (Auto) 69.5, Lymph % (Auto) 18.2 L, Amite % (Auto) 7.6, Eos % (Auto) 3.3, Baso % (Auto) 1.2 H, Absolute Neuts (auto) 3.5, Absolute Lymphs (auto) 0.93, Nucleated RBC % 0, PT 28.3 H, INR 2.7, Sodium 141, Potassium 3.8, Chloride 112 H, Carbon Dioxide 27.0, Anion Gap 2 L, BUN 12, Creatinine 0.92, Estim Creat Clear Calc 43.99, Est GFR (MDRD) Af Amer 75, Est GFR (MDRD) Non-Af 62, BUN/Creatinine Ratio 13.0, Glucose 92, Lactic Acid 1.5, Calcium 8.2 L, Total Bilirubin 1.20 H, AST 23, ALT 26, Alkaline Phosphatase 65, Total Protein 6.3 L, Albumin 3.3, Globulin 3.0, Albumin/Globulin Ratio 1.1, Blood Type O NEGATIVE, Antibody Screen NEGATIVE 07/02/23 17:43: Hgb 12.5, Hct 36.0 L 07/03/23 06:08: WBC 5.1, RBC 3.84 L, Hgb 11.8 L, Hct 34.9 L, MCV 90.9, MCH 30.7,MCHC 33.8, RDW Std Deviation 42.4, RDW Coeff of Zulma 12.8, Plt Count 174, MPV 8.9, Immature Gran % (Auto) 0.400, Neut % (Auto) 61.8, Lymph % (Auto) 23.8, Amite% (Auto) 8.3, Eos % (Auto) 4.3, Baso % (Auto) 1.4 H, Absolute Neuts (auto) 3.1, Absolute Lymphs (auto) 1.21, Nucleated RBC % 0, PT 31.2 H, INR 3.0 Radiography Diagnostic Testing: Radiology Impression Abdomen/Pelvis CT 07/02/23 11:58 IMPRESSION: Sigmoid diverticulosis and mild degree of sigmoid diverticulitis. Status post cholecystectomy. Fatty liver. Bilateral renal cysts more prominent on the right side. Nonobstructive calculus in the left kidney. Electronically Signed: Franky Grimes MD at 13:50 EST , Physical Exam Const alert and no apparent distress HEENT head/scalp atraumatic Resp normal respiratory effort and no retractions Cardio regular rate, regular rhythm, S1 normal heart sound and S2 normal heart sound GI normal to inspection, nondistended, normoactive bowel sounds and soft to palpation Neuro Sensorium / Orientation: awake and alert Assessment & Plan Assessment/Plan (1) Acute lower gastrointestinal bleeding: PLAN: Plan Acute diverticulitis of the sigmoid colon * abx w amp/SB in the hospital. Will transition her to Augmentin pleated 7-day course of antibiotics. * Patient tolerated diet with transitional diet. GI bleed * Likely diverticular etiology exacerbated by warfarin * Resolved. Due to diverticulosis complicated by diverticulitis while being on warfarin. Will have patient hold the warfarin for 48 hours and then resume. Patient advised to return if she has recurrent bleeding. Chronic conditions: * chronic atrial fibrillation with paced rhythm-patient will remain off Coumadin for now due to her hematochezia * chronic depression-patient is on citalopram * hyperlipidemia-patient is on simvastatin VTE prophylaxis: not indicated 07/03/23 1327 <Electronically signed by Jaciel Sesay DO> Cosigner Signature (if applicable): CC: ~ Signed [facility] Work Phone: [phone]) 723-897303-01-2024 Discharge summary Author Reyna Sanders [facility] July 02, 2023 10:15pm Note Date/Time July 02, 2023 12:04pm [facility] Medical Records Department [address] [place] [id number] Emergency Department Summary 07/02/23 MR#: [id number] Acct: [id number] Name: GLORIA MATHEW Rep #:[id number] : 1940 82 From: Reyna Sanders DO PCP: Dr. Denise Vallecillo MD Status:ADM IN Location: [facility] [place] [id number] HPI <Dr. Reyna Sanders DO - Last Filed: 07/02/23 22:15> HPI - GI History of Present Illness Chief Complaint: GI Bleed <DIANE Laws - Last Filed: 07/02/23 17:05> HPI - GI Narrative Narrative: Patient presenting today due to hematochezia that she had this morning. She reports that she had multiple bowel movements with bright red blood. Shorts that this happened once last week but then went away. She reports that over thepast 5 days she has had a, GI bug. Reports that she has had intermittent abdominal cramping, nausea, and diarrhea. It seems to be getting better until today. She reports that a few days ago she did insert her finger in her rectum due to a feeling of irritation and is not sure if she may have cut herself or not. She denies any history of GI bleed. She does have history of diverticulosis. She denies fevers, chills, vomiting, and urinary symptoms. Previous abdominal surgeries include umbilical hernia repair, hysterectomy, and cholecystectomy. She does take warfarin due to history of A- fib. [facility] <Dr. Reyna Sanders, DO - Last Filed: 07/02/23 22:15> [facility] Medical History (Updated 07/02/23 @ 16:38 by Amy Jordan) Acute non-ST elevation myocardial infarction (NSTEMI) Anticoagulated on warfarin Atrial fibrillation Atrial fibrillation with RVR 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 CPAP (continuous positive airway pressure) dependence Depression Endometrial cancer GERD (gastroesophageal reflux disease) GI bleed Hernia Mitral and aortic valve disease Neuropathy Non-smoker Osteopenia Pacemaker 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, left Presence of permanent cardiac pacemaker (~05/20/21) Sleep apnea Home Medications cholecalciferol (vitamin D3) 25 mcg (1,000 unit) tablet (Vitamin D3) 1,000 unit PO DAILY REPLACEMENT 05/21/18 [History Last Taken 10/05/21 09:00] cyanocobalamin (vitamin B-12) 1,000 mcg sublingual tablet 1,000 mcg sublingual DAILY replacement 05/21/18 [History Last Taken 10/05/21 09:00] citalopram 10 mg tablet 10 mg PO QHS depression 12/31/20 [History Last Taken 10/04/21 21:00] simvastatin 10 mg tablet 10 mg PO QHS cholesterol 02/23/21 [History Last Taken 10/04/21 21:00] biotin 1,000 mcg chewable tablet 1,000 mcg PO DAILY SUPPLEMENT 05/06/21 [History Last Taken 10/04/21 20:00] ipratropium bromide 42 mcg (0.06 %) nasal spray 2 spray intranasal BID NASAL 05/06/21 [History Last Taken 10/05/21 09:00] pramipexole 0.5 mg tablet 0.75 mg PO QHS RLS 05/06/21 [History Last Taken 10/04/21 21:00] fexofenadine 180 mg tablet (Allergy Relief (fexofenadine)) 180 mg PO DAILY allergy 07/09/21 [History Last Taken 10/05/21 09:00] acetaminophen 500 mg tablet 1,000 mg (2 x 500 mg) PO Q6H PRN PRN Pain Score 1-3 #0 tabs 10/16/21 [Rx Last Taken Unknown] warfarin 1 mg tablet See Rx Instructions .Route .COMPLEX #90 tabs 03/30/23 [Rx Last Taken Unknown] ascorbic acid (vitamin C) 500 mg tablet 500 mg PO DAILY supplement 04/06/23 [History Last Taken Unknown] calcium 600 mg-D3 800 unit-mag11 50 og-alfw-rnjlth-stephanie-s.borat tablet (Xfdqcfsm557-D Plus Minerals) 1 tab PO DAILY REPLACEMENT 04/06/23 [History Last Taken Unknown] gabapentin 300 mg capsule 300 mg PO DAILY 07/02/23 [History Last Taken Unknown] gabapentin 300 mg capsule 600 mg PO QHS 07/02/23 [History Last Taken Unknown] warfarin 1 mg tablet 2 mg PO MO 07/02/23 [History Last Taken Unknown] Allergy/AdvReac Type Severity Reaction Status Date / Time sertraline [From Zoloft] AdvReac Other Verified 07/02/23 11:39 Family History Mother Heart disease CAD (coronary artery disease) Hypertension Father Heart disease Bradycardia Bradycardia requiring pacemaker placement. Surgical History History of cholecystectomy History of hysterectomy for cancer History of maze procedure History of mitral valve replacement Hx of atrioventricular node ablation S/P ablation operation for arrhythmia S/P left atrial appendage ligation S/P left atrial appendage ligation S/P Maze operation for atrial fibrillation S/P MVR (mitral valve replacement) Social History household members: none Smoking Status: Never smoker alcohol intake: current alcohol intake frequency: holidays/special occasions only substance use type: does not use ROS <DIANE Laws - Last Filed: 07/02/23 17:05> ROS ED Constitutional Constitutional ED: Denies chills or fever(s) Cardiovascular Cardiovascular: Denies chest pain Respiratory/Chest Respiratory/Chest: Denies cough or dyspnea Gastrointestinal Gastrointestinal: Reports abdominal pain, diarrhea, hematochezia and nausea; Denies constipation or vomiting Genitourinary Genitourinary ED: Denies dysuria, hematuria or urinary urgency Musculoskeletal Musculoskeletal: Denies arthralgias or myalgias Integumentary Denies rash Neurologic Neurologic: Denies weakness EXAM <Dr. Reyna Sanders DO - Last Filed: 07/02/23 22:15> Physical Exam Const Vital Signs: 07/02/23 11:39 07/02/23 12:18 07/02/23 13:17 Temperature 96.3 F L Temperature Source Temporal Pulse Rate 83 62 60 Respiratory Rate 18 16 17 Blood Pressure 112/74 85/60 L 120/66 Blood Pressure Mean 86 68 84 Pulse Ox 96 97 98 Oxygen Delivery Method Nasal Cannula Room Air Room Air 07/02/23 14:18 Temperature 98.3 F Temperature Source Pulse Rate 63 Respiratory Rate 18 Blood Pressure 137/57 H Blood Pressure Mean 83 Pulse Ox 94 Oxygen Delivery Method <DIANE Laws - Last Filed: 07/02/23 17:05> Physical Exam Const Vital Signs: 07/02/23 11:39 07/02/23 12:18 07/02/23 13:17 Temperature 96.3 F L Temperature Source Temporal Pulse Rate 83 62 60 Respiratory Rate 18 16 17 Blood Pressure 112/74 85/60 L 120/66 Blood Pressure Mean 86 68 84 Pulse Ox 96 97 98 Oxygen Delivery Method Nasal Cannula Room Air Room Air 07/02/23 14:18 Temperature 98.3 F Temperature Source Pulse Rate 63 Respiratory Rate 18 Blood Pressure 137/57 H Blood Pressure Mean 83 Pulse Ox 94 Oxygen Delivery Method Positive well nourished, well developed and no apparent distress General Appearance ED: well developed HEENT Reports normocephalic and head/scalp atraumatic Mouth ED: Yes moist mucous membranes normal Eyes PERRL and EOMs intact bilaterally Neck full ROM and supple Chest Wall inspection of chest normal Resp normal respiratory effort and clear to auscultation bilaterally Cardio regular rate and regular rhythm GI soft to palpation, non-distended and no masses GI Narrative: Minimal tenderness to the left lower quadrant without rigidity, guarding, or peritoneal signs. Negative McBurney's point tenderness. Rectal exam: This was performed with nurse in the room. No external hemorrhoidsvisualized, normal sphincter tone. Bright red blood visualized on ELVI. Back/Spine normal ROM and normal to inspection Extremity normal to inspection and full ROM Neuro oriented x3, CN's II-XII intact bilaterally, moves all extremities, no focal motor deficits and no sensory deficits noted Sensorium / Orientation: awake and alert Psych mental status grossly normal and thought process normal Skin no rashes or lesions noted and no wounds [facility] <Dr. Reyna Sanders, DO - Last Filed: 07/02/23 22:15> [facility] Narrative Medical decision making narrative: Patient is nontoxic-appearing and in no acute distress, she is presenting due torectal bleeding that started today. She did have 1 episode last week that went away. She is mild cramping in her left lower quadrant. His colonoscopy was 2013 which showed diverticulosis. Labs will be obtained to rule out anemia, leukocytosis, electrolyte abnormality, BG, and hepatobiliary etiology. CT of the abdomen and pelvis will be obtained to rule out diverticulitis and other etiology. I have personally performed a face to face assessment of the patient and have reviewed the ELISE Note. I performed a substantive portion of the visit including all aspects of the following. My rg findings include: History is [patient presents to the emergency department with complaint of rectal bleeding that started this morning. Patient states that she has had 3 episodes of bright red blood per rectum and did pass a clot initially. She describes some just mild discomfort to the left lower abdomen. Patient states that last week she had what she thought was a stomach flu with some nausea and vomiting and diarrhea. That seem to be getting better day-to-day. Patient does have history of diverticulosis and her last colonoscopy was in 2013. She is currently on Coumadin for history of A-fib. She denies any fevers or chills or sweats. She denies vomiting blood.] Exam is [HEENT-PERRLA, EOMI. Cranial nerves II through XII grossly intact. TMs clear. Mucous membranes moist. No adenopathy. Cardiovascular-regular rate and rhythm without murmur or ectopy Lungs-clear to auscultation, chest wall stable without crepitus or subcu emphysema Abdomen-normoactive bowel sounds, soft, nontender, no rebound or rigidity, no peritoneal signs. Extremities-intact ?4, normal range of motion, normal pulses, atraumatic] Medical Decison Making [patient presents with bright red blood per rectum on Coumadin with history of diverticulosis. In the differential would be diverticulosis or diverticulitis versus ischemic colitis versus internal hemorrhoid or polyp or colon mass. IV line will be established basic labs will be obtained. Will obtain a CT scan of the abdomen pelvis with contrast to evaluate further. Will obtain an INR.] CBC with differential obtained showing a 5.1 with hemoglobin 13.4 and platelet count of 187. Chemistries unremarkable. LFTs unremarkable. INR was 2.7. Lactate was normal at 1.5. CT scan of the abdomen pelvis showed diverticulosis with some mild diverticulitis. Patient wasstarted on ciprofloxacin and Flagyl IV. Will discuss with hospitalist to evaluate for admission for lower GI bleed and diverticulitis and suspected diverticular hemorrhage. Other additions or changes: [None] Lab Data Attestation: I reviewed the patient's lab results. Labs: Laboratory Results - last 24 hr 07/02/23 12:10 WBC 5.1 RBC 4.39 Hgb 13.4 Hct 39.4 MCV 89.7 MCH 30.5 MCHC 34.0 RDW Std Deviation 41.0 RDW Coeff of Zulma 12.4 Plt Count 187 MPV 8.6 Immature Gran % (Auto) 0.200 Neut % (Auto) 69.5 Lymph % (Auto) 18.2 L Amite % (Auto) 7.6 Eos % (Auto) 3.3 Baso % (Auto) 1.2 H Absolute Neuts (auto) 3.5 Absolute Lymphs (auto) 0.93 Nucleated RBC % 0 PT 28.3 H INR 2.7 Sodium 141 Potassium 3.8 Chloride 112 H Carbon Dioxide 27.0 Anion Gap 2 L BUN 12 Creatinine 0.92 Estim Creat Clear Calc 43.99 Est GFR (MDRD) Af Amer 75 Est GFR (MDRD) Non-Af 62 BUN/Creatinine Ratio 13.0 Glucose 92 Lactic Acid 1.5 Calcium 8.2 L Total Bilirubin 1.20 H AST 23 ALT 26 Alkaline Phosphatase 65 Total Protein 6.3 L Albumin 3.3 Globulin 3.0 Albumin/Globulin Ratio 1.1 Blood Type O NEGATIVE Antibody Screen NEGATIVE Radiography Diagnostic Testing: Clinical Impression(s) from Imaging Studies Abdomen/Pelvis CT 07/02/23 11:58 IMPRESSION: Sigmoid diverticulosis and mild degree of sigmoid diverticulitis. Status post cholecystectomy. Fatty liver. Bilateral renal cysts more prominent on the right side. Nonobstructive calculus in the left kidney. Electronically Signed: Franky Grimes MD at 13:50 EST , <DIANE Laws - Last Filed: 07/02/23 17:05> [facility] MDM Narrative Medical decision making narrative: Patient is nontoxic-appearing and in no acute distress, she is presenting due to rectal bleeding that started today. She did have 1 episode last week that went away. She is mild cramping in her left lower quadrant. His colonoscopy was 2013 which showed diverticulosis. Labs will be obtained to rule out anemia, leukocytosis, electrolyte abnormality, BG, and hepatobiliary etiology. CT of the abdomen and pelvis will be obtained to rule out diverticulitis and other etiology. CT does show mild diverticulitis, she will be started on Cipro and Flagyl. Did discuss patient with hospitalist due to concerns for GI bleed and she will be admitted in stable condition. She is comfortable with plan. I have personally performed a face to face assessment of the patient and have reviewed the ELISE Note. I performed a substantive portion of the visit including all aspects of the following. My rg findings include: History is [patient presents to the emergency department with complaint of rectal bleeding that started this morning. Patient states that she has had 3 episodes of bright red blood per rectum and did pass a clot initially. She describes some just mild discomfort to the left lower abdomen. Patient states that last week she had what she thought was a stomach flu with some nausea and vomiting and diarrhea. That seem to be getting better day-to-day. Patient does have history of diverticulosis and her last colonoscopy was in 2013. She is currently on Coumadin for history of A-fib. She denies any fevers or chills or sweats. She denies vomiting blood.] Exam is [HEENT-PERRLA, EOMI. Cranial nerves II through XII grossly intact. TMs clear. Mucous membranes moist. No adenopathy. Cardiovascular-regular rate and rhythm without murmur or ectopy Lungs-clear to auscultation, chest wall stable without crepitus or subcu emphysema Abdomen-normoactive bowel sounds, soft, nontender, no rebound or rigidity, no peritoneal signs. Extremities-intact ?4, normal range of motion, normal pulses, atraumatic] Medical Decison Making [patient presents with bright red blood per rectum on Coumadin with history of diverticulosis. In the differential would be diverticulosis or diverticulitis versus ischemic colitis versus internal hemorrhoid or polyp or colon mass. IV line will be established basic labs will be obtained. Will obtain a CT scan of the abdomen pelvis with contrast to evaluate further. Will obtain an INR.] CBC with differential obtained showing a 5.1 with hemoglobin 13.4 and platelet count of 187. Chemistries unremarkable. LFTs unremarkable. INR was 2.7. Lactate was normal at 1.5. CT scan of the abdomen pelvis showed diverticulosis with some mild diverticulitis. Patient wasstarted on ciprofloxacin and Flagyl IV. Will discuss with hospitalist to evaluate for admission for lower GI bleed and diverticulitis and suspected diverticular hemorrhage. Other additions or changes: [None] Lab Data Labs: Laboratory Results - last 24 hr 07/02/23 12:10 WBC 5.1 RBC 4.39 Hgb 13.4 Hct 39.4 MCV 89.7 MCH 30.5 MCHC 34.0 RDW Std Deviation 41.0 RDW Coeff of Zulma 12.4 Plt Count 187 MPV 8.6 Immature Gran % (Auto) 0.200 Neut % (Auto) 69.5 Lymph % (Auto) 18.2 L Amite % (Auto) 7.6 Eos % (Auto) 3.3 Baso % (Auto) 1.2 H Absolute Neuts (auto) 3.5 Absolute Lymphs (auto) 0.93 Nucleated RBC % 0 PT 28.3 H INR 2.7 Sodium 141 Potassium 3.8 Chloride 112 H Carbon Dioxide 27.0 Anion Gap 2 L BUN 12 Creatinine 0.92 Estim Creat Clear Calc 43.99 Est GFR (MDRD) Af Amer 75 Est GFR (MDRD) Non-Af 62 BUN/Creatinine Ratio 13.0 Glucose 92 Lactic Acid 1.5 Calcium 8.2 L Total Bilirubin 1.20 H AST 23 ALT 26 Alkaline Phosphatase 65 Total Protein 6.3 L Albumin 3.3 Globulin 3.0 Albumin/Globulin Ratio 1.1 Blood Type O NEGATIVE Antibody Screen NEGATIVE Radiography Diagnostic Testing: Clinical Impression(s) from Imaging Studies Abdomen/Pelvis CT 07/02/23 11:58 IMPRESSION: Sigmoid diverticulosis and mild degree of sigmoid diverticulitis. Status post cholecystectomy. Fatty liver. Bilateral renal cysts more prominent on the right side. Nonobstructive calculus in the left kidney. Electronically Signed: Franky Grimes MD at 13:50 EST Reading Location ID and State: [facility] / [place] , Service support , Discharge Plan Dx/Rx/DC Orders Clinical Impression: Transient hypotension, Acute diverticulitis, Acute lower gastrointestinal bleeding Disposition Disposition: Acute Care Hospital [facility] Discharge Date/Time: 07/02/23 16:18 What to do if you have Problems For any increased pain, shortness of breath, bleeding, nausea or vomiting, chest pain, or any unexpected problems, contact your Primary Care Provider. Call [facility] ([phone]) or report to the closest Emergency Room. Call 911 if necessary. 07/02/23 2215 <Electronically signed by Reyna Sanders DO> Cosigner Signature (if applicable): 07/02/23 1705 <Electronically signed by Cherelle CONTRERAS> CC: Dr. Denise Vallecillo MD ~ Signed [facility] Work Phone: [phone] 726-252502-29-2024 History and physical note Author Piter Perdomo [facility] July 02, 2023 7:47pm Note Date/Time July 02, 2023 7:35pm [facility] Medical Records Department [address] [place] [address] H&P Exam - Hospitalist 07/02/23 193 MR#: [id number] Acct: [id number] Name: GLORIA MATHEW Rep #:[id number] : 1940 82 From: Piter Perdomo DO PCP: Dr. Denise Vallecillo MD Status:ADM IN Location: [facility] [id number] HPI - General General Date of Admission: 07/02/23 Date of Service: 07/02/23 Chief Complaint: Rectal bleeding HPI Narrative GLORIA MATHEW, is a 82 F who presents to the emergency room at [facility] with complaints of rectal bleeding this morning, she also complained ofrectal bleeding last week but it resolved. It was only on 1 day approximately aweek ago. Patient is on Coumadin chronically for A-fib. Patient denies any melanotic stools, she denies any hematemesis. She complains of mild abdominal discomfort in the left lower quadrant. Workup in the emergency room showed a normal CBC, chemistry profile was unremarkable, patient's CT of the abdomen and pelvis showed sigmoid diverticulitis and diverticular disease in the sigmoid. Patient will be admitted to [facility], she will be given IV antibiotics, and labs will be monitored. Patient will need outpatient colonoscopy performed, I feel that the red rectal bleeding is due to diverticular bleeding. [facility] Medical History (Updated 07/02/23 @ 16:38 by Amy Jordan) Acute non-ST elevation myocardial infarction (NSTEMI) Anticoagulated on warfarin Atrial fibrillation Atrial fibrillation with RVR 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 CPAP (continuous positive airway pressure) dependence Depression Endometrial cancer GERD (gastroesophageal reflux disease) GI bleed Hernia Mitral and aortic valve disease Neuropathy Non-smoker Osteopenia Pacemaker 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, left Presence of permanent cardiac pacemaker (~05/20/21) Sleep apnea Home Medications cholecalciferol (vitamin D3) 25 mcg (1,000 unit) tablet (Vitamin D3) 1,000 unit PO DAILY REPLACEMENT 05/21/18 [History Last Taken 10/05/21 09:00] cyanocobalamin (vitamin B-12) 1,000 mcg sublingual tablet 1,000 mcg sublingual DAILY replacement 05/21/18 [History Last Taken 10/05/21 09:00] citalopram 10 mg tablet 10 mg PO QHS depression 12/31/20 [History Last Taken 10/04/21 21:00] simvastatin 10 mg tablet 10 mg PO QHS cholesterol 02/23/21 [History Last Taken 10/04/21 21:00] biotin 1,000 mcg chewable tablet 1,000 mcg PO DAILY SUPPLEMENT 05/06/21 [History Last Taken 10/04/21 20:00] ipratropium bromide 42 mcg (0.06 %) nasal spray 2 spray intranasal BID NASAL 05/06/21 [History Last Taken 10/05/21 09:00] pramipexole 0.5 mg tablet 0.75 mg PO QHS RLS 05/06/21 [History Last Taken 10/04/21 21:00] fexofenadine 180 mg tablet (Allergy Relief (fexofenadine)) 180 mg PO DAILY allergy 07/09/21 [History Last Taken 10/05/21 09:00] acetaminophen 500 mg tablet 1,000 mg (2 x 500 mg) PO Q6H PRN PRN Pain Score 1-3 #0 tabs 10/16/21 [Rx Last Taken Unknown] warfarin 1 mg tablet See Rx Instructions .Route .COMPLEX #90 tabs 03/30/23 [Rx Last Taken Unknown] ascorbic acid (vitamin C) 500 mg tablet 500 mg PO DAILY supplement 04/06/23 [History Last Taken Unknown] calcium 600 mg-D3 800 unit-mag11 50 ju-rdlv-numjms-stephanie-s.borat tablet (Wiioisgt726-G Plus Minerals) 1 tab PO DAILY REPLACEMENT 04/06/23 [History Last Taken Unknown] gabapentin 300 mg capsule 300 mg PO DAILY 07/02/23 [History Last Taken Unknown] gabapentin 300 mg capsule 600 mg PO QHS 07/02/23 [History Last Taken Unknown] warfarin 1 mg tablet 2 mg PO MO 07/02/23 [History Last Taken Unknown] Allergy/AdvReac Type Severity Reaction Status Date / Time sertraline [From Zoloft] AdvReac Other Verified 07/02/23 11:39 Family History Mother Heart disease CAD (coronary artery disease) Hypertension Father Heart disease Bradycardia Bradycardia requiring pacemaker placement. Surgical History History of cholecystectomy History of hysterectomy for cancer History of maze procedure History of mitral valve replacement Hx of atrioventricular node ablation S/P ablation operation for arrhythmia S/P left atrial appendage ligation S/P left atrial appendage ligation S/P Maze operation for atrial fibrillation S/P MVR (mitral valve replacement) Social History household members: none Smoking Status: Never smoker alcohol intake: current alcohol intake frequency: holidays/special occasions only substance use type: does not use ROS Constitutional Constitutional: Denies anorexia, change in weight, chills, fatigue, fever(s), malaise, night sweats or weakness Eyes Eyes: Denies blurry vision, change in vision, discharge from eye(s) or eye pain Cardiovascular Cardiovascular: Denies chest pain, claudication, dyspnea on exertion, edema or palpitations Respiratory/Chest Respiratory/Chest: Denies cough, hemoptysis, shortness of breath at rest or shortness of breath with exertion Gastrointestinal Gastrointestinal: Reports hematochezia; Denies abdominal pain, coffee ground emesis, constipation, diarrhea, hematemesis, melena, nausea or vomiting Genitourinary Genitourinary: Denies dysuria, hematuria, urinary frequency, urinary hesitancy, urinary incontinence or urinary urgency Musculoskeletal Musculoskeletal: Denies back pain, joint pain, joint stiffness, joint swelling, myalgias or neck pain Neurologic Neurologic: Denies abnormal gait, abnormal speech, dizziness, focal weakness, headache(s), loss of vision, numbness, other visual disturbances, paresthesias, syncope or tingling Psychiatric Psychiatric: Denies anxiety, cognitive impairment, depression, irritability, mood swings or suicidal ideation Endocrine Endocrinology: Denies change in body appearance, cold intolerance, excessive sweating, heat intolerance, polydipsia or polyuria Hematologic/Lymphatic Hematologic/Lymphatic: Denies none, anemia, easy bleeding, easy bruising or lymphadenopathy Allergic/Immunologic Allergic/Immunologic: Denies rhinitis, urticaria, eczemia or asthma Vital Signs Vital Signs Vital Signs: 07/02/23 11:39 07/02/23 12:18 07/02/23 13:17 Temperature 96.3 F L Temperature Source Temporal Pulse Rate 83 62 60 Respiratory Rate 18 16 17 Respiratory Effort Respiratory Depth Respiratory Pattern Blood Pressure 112/74 85/60 L 120/66 Blood Pressure Mean 86 68 84 Blood Pressure Source Blood Pressure Position Blood Pressure Location Pulse Ox 96 97 98 Oxygen Delivery Method Nasal Cannula Room Air Room Air 07/02/23 14:18 07/02/23 15:39 07/02/23 17:00 Temperature 98.3 F Temperature Source Pulse Rate 63 64 Respiratory Rate 18 18 Respiratory Effort Normal Non-Labored Respiratory Depth Normal Respiratory Pattern Normal Blood Pressure 137/57 H 116/63 Blood Pressure Mean 83 80 Blood Pressure Source Blood Pressure Position Blood Pressure Location Pulse Ox 94 98 Oxygen Delivery Method Room Air Room Air 07/02/23 17:14 Temperature 97.7 F L Temperature Source Oral Pulse Rate 63 Respiratory Rate 16 Respiratory Effort Respiratory Depth Respiratory Pattern Blood Pressure 110/55 L Blood Pressure Mean 73 Blood Pressure Source Monitor Blood Pressure Position Semi-Fowlers Blood Pressure Location Right Arm Pulse Ox 98 Oxygen Delivery Method Room Air Weight Weight: 67.1 kg Body Mass Index (BMI) 27.0 Physical Exam Const alert, oriented x3, no apparent distress, average body habitus and healthy appearing General Appearance: cooperative, well kempt and well developed Orientation / Consciousness: awake, oriented to person, oriented to place and oriented to time HEENT normocephalic, head/scalp atraumatic, hearing grossly normal bilaterally and moist oral mucous membranes Eyes PERRL, EOMs intact bilaterally and conjunctivae normal Neck supple, no JVD, thyroid normal and no carotid bruits General: trachea midline Resp normal respiratory effort, no retractions, no use of accessory muscles and clearto auscultation bilaterally Auscultation: Negative for rales, rhonchi or wheezes Cardio regular rate, regular rhythm, S1 normal heart sound, S2 normal heart sound, no murmurs, no rub and no gallops GI normal to inspection, nondistended, normoactive bowel sounds, soft to palpation and non-distended GI Narrative: Mild abdominal tenderness to palpation in the left lower quadrant, no rebound abdominal tenderness is noted Extremity normal to inspection and no clubbing, cyanosis or edema Skin no rashes or lesions noted General Skin Exam: no breakdown Neuro oriented x3, CN's II-XII intact bilaterally, no focal motor deficits and no sensory deficits noted Sensorium / Orientation: awake and alert Speech: speech normal Psych affect normal Results Lab / Micro Data 07/02/23 17:43 07/02/23 12:10 Labs: Laboratory Results - last 24 hr 07/02/23 12:10: WBC 5.1, RBC 4.39, Hgb 13.4, Hct 39.4, MCV 89.7, MCH 30.5, MCHC 34.0, RDW Std Deviation 41.0, RDW Coeff of Zulma 12.4, Plt Count 187, MPV 8.6, Immature Gran % (Auto) 0.200, Neut % (Auto) 69.5, Lymph % (Auto) 18.2 L, Amite % (Auto) 7.6, Eos % (Auto) 3.3, Baso % (Auto) 1.2 H, Absolute Neuts (auto) 3.5, Absolute Lymphs (auto) 0.93, Nucleated RBC % 0, PT 28.3 H, INR 2.7, Sodium 141, Potassium 3.8, Chloride 112 H, Carbon Dioxide 27.0, Anion Gap 2 L, BUN 12, Creatinine 0.92, Estim Creat Clear Calc 43.99, Est GFR (MDRD) Af Amer 75, Est GFR (MDRD) Non-Af 62, BUN/Creatinine Ratio 13.0, Glucose 92, Lactic Acid 1.5, Calcium 8.2 L, Total Bilirubin 1.20 H, AST 23, ALT 26, Alkaline Phosphatase 65, Total Protein 6.3 L, Albumin 3.3, Globulin 3.0, Albumin/Globulin Ratio 1.1, Blood Type O NEGATIVE, Antibody Screen NEGATIVE 07/02/23 17:43: Hgb 12.5, Hct 36.0 L Imaging Radiology Impression Abdomen/Pelvis CT 07/02/23 11:58 IMPRESSION: Sigmoid diverticulosis and mild degree of sigmoid diverticulitis. Status post cholecystectomy. Fatty liver. Bilateral renal cysts more prominent on the right side. Nonobstructive calculus in the left kidney. Electronically Signed: Franky Grimes MD at 13:50 EST Reading Location ID and State: [address] [place] [address] , Service support , Assessment & Plan Assessment/Plan (1) Acute lower gastrointestinal bleeding: PLAN: Plan 1. Acute diverticulitis of the sigmoid colon-patient will be admitted to [facility] 3, labs will be monitored, she was placed on IV Unasyn, I have chosen not to have general surgery see the patient at this time 2. Hematochezia-I feel this is probably secondary to diverticular bleeding, patient will be admitted to [facility] 3, labs will be monitored, I have chosen notto have gastroenterology see the patient at this time, and outpatient colonoscopy will have to be performed #3 chronic atrial fibrillation with paced rhythm-patient will remain off Coumadin for now due to her hematochezia, INR will be repeated tomorrow #4 chronic depression-patient is on citalopram #5 hyperlipidemia-patient is on simvastatin Total clinical time spent by myself addressing the patient's medical issues, reviewing all of her data, and collaborating with patient's care team: 55- minutes Charges/Coding Visit Charges Inpatient E&M: 06911 Init Hosp L2 07/02/231946 <Electronically signed by Piter Perdomo DO> Cosigner Signature (if applicable): CC: Dr. Piter Perdomo DO; Dr. Denise Vallecillo MD~ Signed [facility] Work Phone: [phone]) 941-339502-07-2023 History of Present illness Narrative* Cameron Coyle MD - 06/10/2022 1:15 PM EST NEUROSURGERY CONSULT NOTE Patient Name: Gloria Mathew Patient : 1940 PCP: Saroj Vallecillo MD History of Present Ilness: 81 y.o. presents with low back pain. States the back pain is worse with weightbearing and weightbearing activities. She was having difficulty ambulating. She went through astint using a walker and cane. She has been weaned off these. She is ambulating well at this time. She did physical therapy, which helped her symptoms. States her back pain is minimal at this time. She is having some right hip pain after she fell. She has been seeing her PCP for this. She had an MRI done over a month ago and was told she has stenosis and to see a surgeon. Chief Complaint Patient presents with New Patient Possible spinal fracture Past Medical History: No past medical history on file. Past Surgical History: No past surgical history on file. Home Medications: Prior to Admission medications Medication Sig Start Date End Date Taking? Authorizing Provider alendronate (Fosamax) 70 MG tablet 04/30/22 Yes Historical Provider, amoxicillin (Amoxil) 500 MG tablet Take 500 mg by mouth. 03/17/22 Yes Historical Provider, Biotin 1000 MCG chewable tablet Chew 1,000 mcg. 05/06/21 Yes Historical Provider, calcium carbonate 1500 (600 Ca) MG tablet Take 600 mg by mouth in the morning. Yes Historical Provider, cholecalciferol (Vitamin D-3) 25 MCG (1000 UT) capsule Take 1,000 Units by mouth in the morning. Yes Historical Provider, cholestyramine (Questran) 4 g packet 03/22/22 Yes Historical Provider, citalopram (CeleXA) 10 MG tablet 06/04/22 Yes Historical Provider, Cyanocobalamin [address] 1 tablet under the tongue in the morning. Yes Historical Provider, fexofenadine (Brigitte) 180 MG tablet Take 180 mg by mouth. 05/06/21 Yes Historical Provider, gabapentin (Neurontin) 300 MG capsule Take 300 mg by mouth in the morning and 300 mg in the evening. Yes Historical Provider, ipratropium (Atrovent) 0.06 % nasal spray SPRAY 2 SPRAYS INTO EACH NOSTRIL TWICE A DAY 01/11/21 Yes Historical Provider, Multiple Vitamin (multivitamin) tablet Take 1 tablet by mouth daily. Yes Historical Provider, pramipexole (Mirapex) 0.5 MG tablet 06/04/22 Yes Historical Provider, simvastatin (Zocor) 10 MG tablet 04/16/22 Yes Historical Provider, warfarin (Coumadin) 1 MG tablet 06/04/22 Yes Historical Provider, methylPREDNISolone (Medrol Dospak) 4 MG tablets TAKE 6 TABLETS ON DAY 1 DIRECTED ON PACKAGE AND DECREASE BY 1 TAB EACH DAY FOR A TOTAL OF 6 DAYS 03/12/22 Historical Provider, Specialty Vitamins Products (Avawam Matrix 5000) tablet Take 1 tablet by mouth in the morning. Historical Provider, sulfamethoxazole-trimethoprim (Bactrim DS) 800-160 MG tablet Take 1 tablet by mouth 2 times daily. 06/13/21 Historical Provider, traMADol (Ultram) 50 MG tablet TAKE 1 TABLET BY MOUTH 3 TIMES A DAY NEEDED FOR PAIN FOR 30 DAYS 03/04/22 Historical Provider, Allergies: Sertraline Social History: TOBACCO: reports that she has never smoked. She has never used smokeless tobacco. ETOH: reports no history of alcohol use. RECREATIONAL DRUG USE: Social History Substance and Sexual Activity Drug Use Never Family History: No family history on file. Review of Systems Constitutional: Negative for chills and fever. HENT: Negative for congestion, rhinorrhea and sore throat. Eyes: Negative for photophobia and visual disturbance. Respiratory: Negative for cough and shortness of breath. Cardiovascular: Negative for chest pain and palpitations. Gastrointestinal: Negative for abdominal pain, nausea and vomiting. Genitourinary: Negative for decreased urine volume and difficulty urinating. Musculoskeletal: Negative for back pain, gait problem and neck pain. Skin: Negative for rash and wound. Neurological: Negative for dizziness, seizures, speech difficulty, weakness, numbness and headaches. Psychiatric/Behavioral: Negative for behavioral problems and confusion. Physical Examination: Vitals: 06/10/22 1305 BP: 122/72 Pulse: 79 Physical Exam Vitals reviewed. Constitutional: Appearance: Normal appearance. HENT: Head: Normocephalic and atraumatic. Nose: Nose normal. Mouth/Throat: Pharynx: Oropharynx is clear. Eyes: Extraocular Movements: Extraocular movements intact. Conjunctiva/sclera: Conjunctivae normal. Cardiovascular: Rate and Rhythm: Normal rate and regular rhythm. Pulses: Normal pulses. Pulmonary: Effort: Pulmonary effort is normal. No respiratory distress. Abdominal: General: There is no distension. Palpations: Abdomen is soft. Tenderness: There is no abdominal tenderness. Musculoskeletal: General: No tenderness. Normal range of motion. Cervical back: Normal range of motion and neck supple. No rigidity. Skin: General: Skin is warm and dry. Neurological: General: No focal deficit present. Mental Status: She is alert and oriented to person, place, and time. Cranial Nerves: No cranial nerve deficit. Sensory: No sensory deficit. Motor: No weakness. Gait: Gait normal. Deep Tendon Reflexes: Reflexes normal. Psychiatric: Mood and Affect: Mood normal. Behavior: Behavior normal. Neurologic Exam Mental Status Oriented to person, place, and time. Gait normal Results Labs: Last 24hrs No results found for this or any previous visit (from the past 24 hour(s)). Radiology Personal review: MRI of the lumbar spine was reviewed. She has some facet arthropathy generalized spondylosis but nohigh-grade stenosis and no neural compression ASSESSMENT / PLAN : She has had resolution of her proximal left lower extremity radicular symptoms. She responded well to conservative management. She is nearly pain-free at this time. She has resumed her normal functional baseline. I discussed additional conservative treatment options. I do not recommend any surgicalintervention. She understands signs and symptoms that would suggest deterioration. Answered her questions. She is here today with her sister. They understand all of the above. No diagnosis found. documented in this [facility]06-30-2022 Miscellaneous Notes* Telephone Encounter - Aniya Shankar, [facility] - 10/31/2021 10:51 AM EDT Referred by: Dr. Perez Indication: New onset [...] daily. Recheck INR on 11/06 with new straw hat brim raiser operator in [place]. The patient's INR was elevated on 09/25. She had missed her multivitamin for several days that week.The vitamin contains vitamin K which would explain [...] was in the hospital and then a custodial facility. She was discharged home on 10/21 and has been taking warfarin 1mg daily. Since INR was therapeutic on 10/23, recommended that she continue this dose and have an INR check on 11/06 to ensure she is stable. She reports today that she has transferred care from Dr. Perez to a new straw hat brim raiser operator in [place]. She has been to see the new straw hat brim raiser operator once so is now established there. Instructed the patient to call the new straw hat brim raiser operator office to see how they monitor warfarin. This Coumadin clinic can no longer manage, as the referring provider needs to be part of [facility]. The patient plans to call her straw hat brim raiser operator office today for guidance and to set up next INR. Coumadin clinic will sign off at this time. Discussed with patient on the phone who read back instructions and verbalized understanding. Aniya Shankar RPh [facility] this [facility] Miscellaneous Notes* Telephone Encounter - Mellisa Dutta RPh - 10/29/2021 12:15 PM EDT [facility] coumadin clinic already manages this patient's INRs. She has her INRs checked at the [facility]. I think they just need a new standing order for INRs. I have placed the order and faxed as requested. Mellisa Dutta RPh * Telephone Encounter - Jean-Pierre Perez MD - 10/29/2021 11:47 AM EDT I signed the form and did approve VIt K but the form is for [facility], not [facility] William C * Telephone Encounter - Donald Cunningham RN - 10/29/2021 11:37 AM EDT I found the form in [facility] will complete for you just need to know if you want him to have Vit K for INR over 9.0? Donald Cunningham, MARCELLA * Telephone Encounter - Jean-Pierre Perez MD - 10/28/2021 11:39 AM EDT INR 2-3; I do not see any form in Epic William C * Telephone Encounter - Donald Cunnignham RN - 10/28/2021 9:40 AM EDT A standing order for the [place] coumadin clinic for the next year. Wasn't sure of the parameters for the INR levels? Donald Cunningham RN * Telephone Encounter - Jean-Pierre Perez MD - 10/24/2021 7:37 PM EDT What do I need to fill out? William C * Telephone Encounter - Donald Cunningham RN - 2021 9:29 AM EDT Received a call from [facility] clinic at [facility] requesting a new standing order for Coumadin clinic for the upcoming year. Requesting it be faxed to Karli at [phone]. Donald Cunningham RN documented in this encounter[facility]05-25-2022 Miscellaneous Notes* Telephone Encounter - Aniya Shankar [facility] - 09/25/2021 4:09 PM EDT Referred by: Dr. Perez Indication: New onset [...] pillbox. Since the cause of elevated INR isidentified and INR has been stable, will hold warfarin today and then continue the same weekly doseas above. Discussed with patient on the phone who read back instructions and verbalized understanding. Aniya Shankar RPh * Telephone Encounter - Cassie Adams - 09/25/2021 4:03 PM EDT Pt reports of 3.4 on 09/25/2021. documented in this encounterSelect [facility]04-04-2022 Influenza virus A and B RNA and SARS-CoV-2 (COVID-19) N gene panel WDAYNE+probe (Resp)COVID 19 RESULT: SARS-CoV-2 (Agent of COVID-19) Not Detected by RT-PCR or equivalent method. This test was developed and its performance characteristics determined by [facility] [place]. This test has been authorized by FDA under an Emergency Use Authorization (EUA). This test has been validated in accordance with the FDA's Guidance Document Policy for DiagnosticsTesting in Laboratories Certified to Perform High Complexity Testing under CLIA prior to Emergency use Authorization for Coronavirus Disease 2019 during the Public Health Emergency issued on July 02, 2019. Test performed by [facility], [facility]ology and Laboratory [facility] [place], [facility] [place] [address]. INFLUENZA A PCR: Negative for Influenza A by RT-PCR INFLUENZA B PCR: Negative for Influenza B by RT-PCRChildren's Hospital for Rehabilitationment on above: Performed By: #### [id number] #### [facility] CLIA [id number] [address] [place] [address] [place] [id number] NoteHNO ID: [id number] Author: Lucía Barraza APRN.MOLD DUMPER Service: ? Author Type: Nurse Practitioner Type: Progress Notes Filed: 08/05/2021 10:27 AM Note Text: Subjective Patient came in with complaints of being exposed to covid Five days ago. Patient does not have any symptoms at this time. Had covid in April of 2020 and is vaccinated. The history is provided by the patient. No hot stick worker was used. Review of Systems Constitutional: Negative. Skin: Negative. Objective Physical Exam Constitutional: Appearance: Normal appearance. Cardiovascular: Rate and Rhythm: Normal rate and regular rhythm. Heart sounds: Normal heart sounds. Pulmonary: Effort: Pulmonary effort is normal. Breath sounds: Normal breath sounds. Neurological: Mental Status: She is alert. 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 Epic bioprosthesis - IBS (irritable bowel syndrome) - Lung nodules 06/03/2018 - Mitral valve regurgitation - Mitral valve stenosis - 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m insufficient to support life - Presence of cardiac pacemaker Medtronic dual-chamber pacemaker implanted 05/20/2021; indication: complete heart block from AV node catheter ablation; system will be MRI conditional after 6 weeks post implant - Prolonged QT interval - Pulmonary HTN ([facility]) - S/P left atrial appendage ligation 04/16/2018 exclusion of left atrial appendage with a 45 mm atrial clip. - Torsades de pointes (HCC) - Tricuspid regurgitation - Ventricular tachycardia (HCC) PAST SURGICAL HISTORY Procedure Laterality Date - ATRIAL APPENDAGE LIGATION 04/16/2018 exclusion of left atrial appendage with a 45 mm atrial clip. - BASIC PACEMAKER DUAL CHAMBER Left 05/20/2021 Medtronic dual-chamber pacemaker; indication: complete heart block from AV node catheter ablation; system will be MRI conditional after 6 weeks post implant; [facility] Dr. Lechuga - BREAST BIOPSY - CARDIOVERSION 05/27/2018 - CARDIOVERSION 01/01/2021 - CHEST X-RAY 12/31/2020 - CHOLECYSTECTOMY HX 10/02/2011 - ECHO TRANSESOPHAGEAL 05/27/2018 - EKG 01/01/2021 - HYSTERECTOMY HX MARYELLEN/BLO - ICAR CATHETER ABLATION ATRIOVENTR NODE FUNCTION 05/20/2021 AV node radiofrequency catheter ablation; indication: drug refractory atrial fibrillation; [facility] Dr. Lechuga - LEG SURGERY HX - MAZE PROCEDURE 04/16/2018 maze procedure with left and right atrial lesion sets (radiofrequency clamp and cryo) - PICC LINE INSERTION (PICC TEAM) ([place]) 04/21/2018 - REPLACEMENT OF MITRAL VALVE 04/16/2018 29-mm [employer] Epic bioprosthesis ALLERGIES Zoloft [Sertraline] MEDICATIONS gabapentin (NEURONTIN) 300 mg capsule Take 300 mg by mouth twice daily. Can up titrate to max daily dose of 1,200 mg fexofenadine (BRIGITTE) 180 mg tablet Take 180 mg by mouth daily at bedtime. ipratropium bromide (ATROVENT) 42 mcg (0.06 %) nasal spray SPRAY 2 SPRAYS INTO EACH NOSTRIL TWICE A DAY citalopram hydrobromide (CELEXA) 10 mg tablet Take 10 mg by mouth once daily. warfarin (COUMADIN) 1 mg tablet Take 1 tablet by mouth daily as directed. simvastatin (ZOCOR) 10 mg tablet Take 10 mg by mouth daily at bedtime. ascorbic acid, vitamin C, (VITAMIN C) 500 mg tablet Take 1 tablet by mouth twice daily. pramipexole (MIRAPEX) 0.25 mg tablet Take 1 tablet by mouth daily at bedtime. cholestyramine (QUESTRAN) 4 gram packet Take 1 Packet by mouth once daily. calcium carbonate (CALTRATE) 600 mg calcium (1,500 mg) tab Take 600 mg by mouth once daily. Biotin-Silicon Sxhh-S-Qammixpt 5,000 mcg-100 mg- 50 mg tab Take 1 tablet by mouth once daily. Cholecalciferol, Vitamin D3, 1,000 unit cap Take 1,000 Units by mouth once daily. alendronate (FOSAMAX) 70 mg tablet Take 1 tablet by mouth once each week. Cyanocobalamin (VITAMIN B-12) 1,000 mcg subl Dissolve 1 tablet under the tongue once daily. FAMILY HISTORY Problem Relation Age of Onset - Breast Cancer Mother stage III - Coronary Artery Disease Mother mother, uncle - Cancer Paternal Grandfather - Colon Cancer Maternal Grandmother - Diabetes Other uncle - Stroke Maternal Grandfather Social History Tobacco Use - Smoking status: Never Smoker - Smokeless tobacco: Never Used Vaping Use - Vaping Use: Never used Substance Use Topics - Alcohol use: No - Drug use: No ASSESSMENT/PLAN: 1. Close exposure to COVID-19 virus - ICD9: V01.79, ICD10: Z20.822 - COVID WITH FLUA+B, ROUTINE Awaiting covid test results. Lucía Barraza APRN.[facility]04-04-2022 History of Present illness Narrative* Lucía Barraza APRN.[facility] - 08/05/2021 10:18 AM EDT Subjective Patient came in with complaints of being exposed to covid Five days ago. Patient does not have any symptoms at this time. Had covid in April of 2020 and is vaccinated. The history is provided by the patient. No hot stick worker was used. Review of Systems Constitutional: Negative. Skin: Negative. Objective Physical Exam Constitutional: Appearance: Normal appearance. Cardiovascular: Rate and Rhythm: Normal rate and regular rhythm. Heart sounds: Normal heart sounds. Pulmonary: Effort: Pulmonary effort is normal. Breath sounds: Normal breath sounds. Neurological: Mental Status: She is alert. 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 Zen[employer] Epic bioprosthesis IBS (irritable bowel syndrome) Lung nodules 06/03/2018 Mitral valve regurgitation Mitral valve stenosis 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m insufficient to support life Presence of cardiac pacemaker Medtronic dual-chamber pacemaker implanted 05/20/2021; indication: complete heart block from AV node catheter ablation; system will be MRI conditional after 6 weeks post implant Prolonged QT interval Pulmonary HTN (HCC) S/P left atrial appendage ligation 04/16/2018 exclusion of left atrial appendage with a 45 mm atrial clip. Torsades de pointes (HCC) Tricuspid regurgitation Ventricular tachycardia (HCC) PAST SURGICAL HISTORY Procedure Laterality Date ATRIAL APPENDAGE LIGATION 04/16/2018 exclusion of left atrial appendage with a 45 mm atrial clip. BASIC PACEMAKER DUAL CHAMBER Left 05/20/2021 Medtronic dual-chamber pacemaker; indication: complete heart block from AV node catheter ablation; system will be MRI conditional after 6 weeks post implant; [facility] Dr. Lechuga BREAST BIOPSY CARDIOVERSION 05/27/2018 CARDIOVERSION 01/01/2021 CHEST X-RAY 12/31/2020 CHOLECYSTECTOMY HX 10/02/2011 ECHO TRANSESOPHAGEAL 05/27/2018 EKG 01/01/2021 HYSTERECTOMY HX MARYELLEN/BLO ICAR CATHETER ABLATION ATRIOVENTR NODE FUNCTION 05/20/2021 AV node radiofrequency catheter ablation; indication: drug refractory atrial fibrillation; [facility] LEG SURGERY HX MAZE PROCEDURE 04/16/2018 maze procedure with left and right atrial lesion sets (radiofrequency clamp and cryo) PICC LINE INSERTION (PICC TEAM) ([place]) 04/21/2018 REPLACEMENT OF MITRAL VALVE 04/16/2018 29-mm [employer] Epic bioprosthesis ALLERGIES Zoloft [Sertraline] MEDICATIONS gabapentin (NEURONTIN) 300 mg capsule Take 300 mg by mouth twice daily. Can up titrate to max dailydose of 1,200 mg fexofenadine (BRIGITTE) 180 mg tablet Take 180 mg by mouth daily at bedtime. ipratropium bromide (ATROVENT) 42 mcg (0.06 %) nasal spray SPRAY 2 SPRAYS INTO EACH NOSTRIL TWICE ADAY citalopram hydrobromide (CELEXA) 10 mg tablet Take 10 mg by mouth once daily. warfarin (COUMADIN) 1 mg tablet Take 1 tablet by mouth daily as directed. simvastatin (ZOCOR) 10 mg tablet Take 10 mg by mouth daily at bedtime. ascorbic acid, vitamin C, (VITAMIN C) 500 mg tablet Take 1 tablet by mouth twice daily. pramipexole (MIRAPEX) 0.25 mg tablet Take 1 tablet by mouth daily at bedtime. cholestyramine (QUESTRAN) 4 gram packet Take 1 Packet by mouth once daily. calcium carbonate (CALTRATE) 600 mg calcium (1,500 mg) tab Take 600 mg by mouth once daily. Biotin-Silicon Lpyu-Y-Mehfcndz 5,000 mcg-100 mg- 50 mg tab Take 1 tablet by mouth once daily. Cholecalciferol, Vitamin D3, 1,000 unit cap Take 1,000 Units by mouth once daily. alendronate (FOSAMAX) 70 mg tablet Take 1 tablet by mouth once each week. Cyanocobalamin (VITAMIN B-12) 1,000 mcg subl Dissolve 1 tablet under the tongue once daily. FAMILY HISTORY Problem Relation Age of Onset Breast Cancer Mother stage III Coronary Artery Disease Mother mother, uncle Cancer Paternal Grandfather Colon Cancer Maternal Grandmother Diabetes Other uncle Stroke Maternal Grandfather Social History Tobacco Use Smoking status: Never Smoker Smokeless tobacco: Never Used Vaping Use Vaping Use: Never used Substance Use Topics Alcohol use: No Drug use: No ASSESSMENT/PLAN: 1. Close exposure to COVID-19 virus - ICD9: V01.79, ICD10: Z20.822 - COVID WITH FLUA+B, ROUTINE Awaiting covid test results. Lucía Barraza APRN.[facility] documented in this encounterSelect [facility]-29-[facility]22 Miscellaneous Notes* Telephone Encounter - Mellisa Dutta [facility] - 07/30/2021 9:49 AM EDT Referred by: Dr. Perez Indication: New onset [...] PT INR Date Value Ref Range Status 07/29/2021 2.9 Final Current warfarin dose: 1mg daily Description CONTINUE 1mg daily. Recheck INR in 4 [...] current dose. INR has been therapeutic since including today. Left detailed message for patient. Mellisa Dutta RPh documented in this encounterSelect Medical [facility]03-02-2022 NoteHNO ID: [id number] Author: Jean-Pierre Perez MD Service: ? Author Type: Physician Type: Progress Notes Filed: 07/04/2021 8:27 AM Note Text: Chief Complaint No chief complaint on file. History of Present Illness: Gloria Mathew is a 80 year old female here for follow-up of valve disease and A. fib. She has had recurrent A. fib over the last year and we did refer her to the EP service. She had a cardioversion done down in [place]. She ended up having AV node ablation and permanent dual-chamber pacer placed in May. She is now living down in [place]. She says she has not felt quite as well since the pacemaker procedure as she has a little bit more shortness of breath than she did. She has had no syncope near syncope palpitations stroke or TIA. She has had no upper or lower GI bleeding she has had no bruising she has had no chest pain she has had no edema she has no claudication she has little bit of chronic fatigue. She also says however that she has not been as active and she think that is playing a role and she would like to try to get back into exercise and she is planning on doing cardiac rehab. 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 Epic bioprosthesis - IBS (irritable bowel syndrome) - Lung nodules 06/03/2018 - Mitral valve regurgitation - Mitral valve stenosis - 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m insufficient to support life - Presence of cardiac pacemaker Medtronic dual-chamber pacemaker implanted 05/20/2021; indication: complete heart block from AV node catheter ablation; system will be MRI conditional after 6 weeks post implant - Prolonged QT interval - Pulmonary HTN (HCC) - S/P left atrial appendage ligation 04/16/2018 exclusion of left atrial appendage with a 45 mm atrial clip. - Torsades de pointes (HCC) - Tricuspid regurgitation - Ventricular tachycardia (HCC) PAST SURGICAL HISTORY Procedure Laterality Date - ATRIAL APPENDAGE LIGATION 04/16/2018 exclusion of left atrial appendage with a 45 mm atrial clip. - BASIC PACEMAKER DUAL CHAMBER Left 05/20/2021 Medtronic dual-chamber pacemaker; indication: complete heart block from AV node catheter ablation; system will be MRI conditional after 6 weeks post implant; [facility] Dr. Lechuga - BREAST BIOPSY - CARDIOVERSION 05/27/2018 - CARDIOVERSION 01/01/2021 - CHEST X-RAY 12/31/2020 - CHOLECYSTECTOMY HX 10/02/2011 - ECHO TRANSESOPHAGEAL 05/27/2018 - EKG 01/01/2021 - HYSTERECTOMY HX MARYELLEN/BLO - ICAR CATHETER ABLATION ATRIOVENTR NODE FUNCTION 05/20/2021 AV node radiofrequency catheter ablation; indication: drug refractory atrial fibrillation; [facility] Dr. Lechuga - LEG SURGERY HX - MAZE PROCEDURE [...] uncle - Stroke Maternal Grandfather Social History Tobacco Use - Smoking status: Never Smoker - Smokeless tobacco: Never Used Vaping Use - Vaping Use: Never used Substance Use Topics - Alcohol use: No - Drug use: No ALLERGIES Allergen Reactions - Zoloft [Sertraline] Other: See Comments palpitations Medications: Current Outpatient Medications Medication Sig Dispense Refill - metoprolol tartrate, short acting, (LOPRESSOR) 50 mg tablet Take 1 tablet by mouth every 12 hours. 60 tablet 0 - gabapentin (NEURONTIN) 300 mg capsule Take 300 mg by mouth twice daily. Can up titrate to max daily dose of 1,200 mg - fexofenadine (BRIGITTE) 180 mg tablet Take 180 mg by mouth daily at bedtime. - ipratropium bromide (ATROVENT) 42 mcg (0.06 %) nasal spray SPRAY 2 SPRAYS INTO EACH NOSTRIL TWICE A DAY - citalopram hydrobromide (CELEXA) 10 mg tablet - warfarin (COUMADIN) 1 mg tablet Take 1 tablet by mouth daily as directed. 100 tablet 1 - simvastatin (ZOCOR) 10 mg tablet Take 10 mg by mouth daily at bedtime. - ascorbic acid, vitamin C, (VITAMIN C) 500 mg tablet Take 1 tablet by mouth twice daily. - pramipexole (MIRAPEX) 0.25 mg tablet Take 1 tablet by mouth daily at bedtime. 30 tablet 1 - cholestyramine (QUESTRAN) 4 gram packet Take 1 Packet by mouth once daily. 30 Packet 0 - alendronate (FOSAMAX) 70 mg tablet Take 1 tablet by mouth once each week. 4 tablet 0 - Cyanocobalamin (VITAM (more content not included)...[facility]01-18-2022 NoteHNO ID: [id number] Author: Pacheco Lechuga MD Service: Electrophysiology Author Type: Physician Type: Progress Notes Filed: 05/21/2021 1:34 PM Note Text: PROGRESS NOTE ELECTROPHYSIOLOGY SERVICE SERVICE DATE: 05/21/2021 SERVICE TIME: 12:44 PM Subjective Patient reports some mild discomfort to left upper chest but otherwise feeling well. INTERIM HISTORY: 80-year-old female known to Dr. Acosta with history of mitral valve replacement and atrial fibrillation with difficult to control ventricular rate resulting in multiple hospital admissions. Several antiarrhythmics, including amiodarone, were either not effective or not tolerated. She was admitted with [facility] with yet another episode of atrial fibrillation with RVR and transferred to [facility] for consideration of pacemaker implantation and AV node ablation. She is anticoagulated with warfarin. Ms. Mathew reports feeling tired and having irregular heartbeat, but less so today than yesterday. Her ECG shows what is likely sinus rhythm at 94 bpm, although atypical atrial flutter with 2: 1 conduction cannot be entirely excluded. Overnight telemetry is suggestive of the same. Echocardiogram in September 2020 showed preserved LV systolic function. Apparently the patient had another echo at [place] very recently. Patient underwent AV karin ablation with permanent pacemaker placement on 05/[address] Lechuga. Procedure was tolerated well and this afternoon patient reports other than some mild discomfort she feels good. Chest x-ray on 05/21 was negative for pneumothorax. Device check on 05/21 was also within normal limits. Left upper chest pacer site appears clean, dry, and intact. Review of Systems Constitutional: Negative for chills, fever and weight loss. Respiratory: Negative for cough and shortness of breath. Cardiovascular: Negative for chest pain and palpitations. Gastrointestinal: Negative for nausea and vomiting. Genitourinary: Negative for dysuria. Neurological: Negative for dizziness and headaches. Psychiatric/Behavioral: Negative. Objective PHYSICAL EXAM: Body mass index is 26.52 kg/m?. O2 Therapy: Room Air Patient Vitals for the past 24 hrs: BP Temp Temp src Pulse Resp SpO2 05/21/21 0800 135/77 36.6 ?C (97.9 ?F) ? 80 18 97 % 05/20/21 2109 139/76 36.7 ?C (98.1 ?F) ? 83 18 ? 05/20/21 1809 123/78 36.7 ?C (98.1 ?F) Oral 80 18 97 % Pleasant, comfortable, not in acute distress. SKIN: warm AND dry; normal color. HEENT: Normocephalic. NECK: Supple, no JVD, no carotid bruits auscultated. LUNGS: Clear to auscultation bilaterally. Respirations unlabored at rest. CARDIAC: Normal S1 and S2; no rubs, murmurs, or gallops. Left upper chest permanent pacemaker site clean, dry, and intact. ABDOMEN: Soft, nontender to superficial palpation, bowel sounds auscultated. EXTREMITIES: No edema lower extremities. NEURO: awake, alert, oriented X 3, moves all 4 extremities. PULSES: bilateral radial AND posterior tibial pulses palpable. MEDICATIONS: Current Facility-Administered Medications Medication Dose Route Frequency - simvastatin 10 mg tab(s) (ZOCOR) 10 mg ORAL AT BEDTIME - metoprolol tartrate (short acting) 50 mg tab(s) (LOPRESSOR) 50 mg ORAL q 12 H - sodium chloride 0.9 % (flush) 3-5 mL (BD POSIFLUSH) 3-5 mL INTRAVENOUS q 12 H - NaCl 0.9% iv flush bag 20 mL INTRAVENOUS PRN - citalopram hydrobromide 10 mg tablet (CeleXA) 10 mg ORAL DAILY - cholestyramine 4 g packet (QUESTRAN) 1 Packet ORAL DAILY - gabapentin 300 mg cap(s) (NEURONTIN) 300 mg ORAL DAILY - gabapentin 600 mg cap(s) (NEURONTIN) 600 mg ORAL AT BEDTIME - pramipexole (MIRAPEX) tab(s) 0.75 mg 0.75 mg ORAL AT BEDTIME - ondansetron orally disintegrating 4 mg tab(s) (ZOFRAN ODT) 4 mg ORAL q 6 H PRN Or - ondansetron (PF) 4 mg injection (ZOFRAN) 4 mg INTRAVENOUS q 6 H PRN - metoclopramide HCl 5 mg (REGLAN) 5 mg ORAL q 6 H PRN Or - metoclopramide HCl 10 mg injection (REGLAN) 10 mg INTRAVENOUS q 6 H PRN - acetaminophen 650 mg tab(s) (TYLENOL) 650 mg ORAL q 6 H PRN - morphine 1 mg injection 1 mg INTRAVENOUS q 2 H PRN - oxyCODONE-acetaminophen 5-325 mg 1 tablet (PERCOCET) 1 tablet ORAL q 6 H PRN - WARFARIN DOSING PER PHARMACY 1 Each OTHER DAILY - WARFARIN DATA: Diagnostic tests reviewed for today's visit: Chest x-ray (05/21/2021): Status post left-sided cardiac pacing device. Leads in expected position. No pneumothorax. Most recent device check (05/21/2021): Atrial fibrillation ongoing ventricular paced at 80 bpm. Dependent RA. Amp 1.4. Impedance 399. RV paced. Impedance 532. THT 0.5/0.5. 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 Past 72 Hour Labs: Recent Labs 05/21/21 0420 WBC 6.63 RBC 3.99 HB 12.3 HCT 36.4 MCV 91.2 MCH 30.8 MCHC 33.8 RDWCV 12.8 PLT 160 MPV 9.0 GLUC 88 BUN 15 CREAT 0.96 NA 141 K 4.1 CHLOR 108* CO2 24 TPROT 5.4* ALB 3.3* CA 8.8 ALKPHO (more content not included)...[facility]01-18-2022 Note HNO ID: [id number] Author: Donald Cool, RN Service: Electrophysiology Author Type: Registered Nurse Type: Progress Notes Filed: 05/21/2021 12:06 PM Note Text: POD1 s/p PPM implant, AVN ablation interrogation/testing completed. Mode switch ongoing. Testing stable. Teaching done with pt and sister via speaker phone. Preliminary report on chart; full report to follow in Chart Review, cardiac tab.[facility]01-17-2022 NoteHNO ID: [id number] Author: Pacheco Lechuga MD Service: Electrophysiology Author Type: Physician Type: Progress Notes Filed: 05/20/2021 5:59 PM Note Text: [facility] Electrophysiology (EP) EP Attending Pacemaker and AV node ablation procedures completed without incident. See procedure reports for details. Please no heparin IV or SQ for the next 48 hours due to risk for postoperative bleeding. Ok from EP standpoint to resume warfarin, even today, if primary service desires. I contacted Ms. Mathew's sister, Mrs. Harrison, and updated her on the successful and uneventful procedures. Pacheco Lechuga MD May 20, 2021 5:59 PM EP group [phone] NoteHNO ID: [id number] Author: Adalid Duvall DO Service: Hospital Medicine Author Type: Physician Type: Progress Notes Filed: 05/20/2021 3:57 PM Note Text: DEPARTMENT OF HOSPITAL MEDICINE PROGRESS NOTE Hospital Medicine/Primary Attending: Adalid Duvall DO NIGHT AND WEEKEND COVERAGE: After 7pm please page [phone] SUBJECTIVE: Pt seen and examined. In bed in no acute distress. Reports continued palpitations. She is awaiting EP lab. She denies any other complaint at this time she denies any chest pain, nausea, vomiting, fever, chills, dysuria, hematuria, headache, weakness, shortness of breath, cough. OBJECTIVE: PHYSICAL EXAM: BP 114/84 Pulse 123 Temp (Src) 98.1 (Oral) Resp 16 Ht 5' 2 (1.58m) SpO2 95% O2 Therapy: Room Air General - AANDOx3, NAD, Calm CV -irregular, S1 S2, No M/R/G RESP - CTA B/L No wheezes, ronchi, rales ABD - soft, NT, ND +BS EXT - no gross joint deformity, no clubbing, cyanosis, edema NEURO - CN II-XII grossly intact, no focal deficits MEDICATIONS: Current Facility-Administered Medications Medication Dose Route Frequency - [MAR Hold due to Transfer] simvastatin 10 mg tab(s) (ZOCOR) 10 mg ORAL AT BEDTIME - [JUL Hold due to Transfer] metoprolol tartrate (short acting) 50 mg tab(s) (LOPRESSOR) 50 mg ORAL q 12 H - [MAR Hold due to Transfer] sodium chloride 0.9 % (flush) 3-5 mL (BD POSIFLUSH) 3-5 mL INTRAVENOUS q 12 H - [MAR Hold due to Transfer] NaCl 0.9% iv flush bag 20 mL INTRAVENOUS PRN - [JUL Hold due to Transfer] citalopram hydrobromide 10 mg tablet (CeleXA) 10 mg ORAL DAILY - [MAR Hold due to Transfer] cholestyramine 4 g packet (QUESTRAN) 1 Packet ORAL DAILY - [JUL Hold due to Transfer] gabapentin 300 mg cap(s) (NEURONTIN) 300 mg ORAL DAILY - [MAR Hold due to Transfer] gabapentin 600 mg cap(s) (NEURONTIN) 600 mg ORAL AT BEDTIME - [MAR Hold due to Transfer] pramipexole (MIRAPEX) tab(s) 0.75 mg 0.75 mg ORAL AT BEDTIME Facility-Administered Medications Ordered in Other Encounters Medication Dose Route Frequency - propofol infusion (DIPRIVAN) INTRAVENOUS X (ONE-STEP ONLY) CONTINUOUS PRN - lidocaine (PF) 20 mg/mL (2 %) injection (XYLOCAINE) INTRAVENOUS PRN - lactated ringers iv infusion INTRAVENOUS X (ONE-STEP ONLY) CONTINUOUS PRN - vancomycin 1 g in D5W 250 mL INTRAVENOUS X (ONE-STEP ONLY) CONTINUOUS PRN - fentaNYL 50 mcg/mL injection (SUBLIMAZE) INTRAVENOUS PRN - propofol injection (DIPRIVAN) INTRAVENOUS PRN - PHENYLephrine iv infusion 10 mg in NaCl 0.9% 250 mL (YOHANNES-SYNEPHRINE) INTRAVENOUS X (ONE-STEP ONLY) CONTINUOUS PRN DATA: Diagnostic tests reviewed for today's visit: CBC: No results for input(s): WBC, RBC, HB, HCT, PLT, MCV, MCH, MPV, RDW in the last 24 hours. Coags: Recent Labs 05/20/21 0455 INR 1.3 BMP: Recent Labs 05/20/21 0455 NA 141 K 4.0 CHLOR 110* CO2 23 BUN 14 CREAT 0.88 GLUC 86 CMP: Recent Labs 05/20/21 0455 NA 141 K 4.0 CHLOR 110* CO2 23 BUN 14 CREAT 0.88 GLUC 86 TPROT 5.6* CA 8.8 MG 1.8 TBILI 0.6 ALKPHOS 74 ALT 22 AST 17 ANION 8* Cardiac Enzymes: No results for input(s): CK, MB, CKMB, TROPT in the last 24 hours. Liver Function, Amylase, Lipase: Recent Labs 05/20/21 0455 TPROT 5.6* ALB 3.5* ALT 22 AST 17 ALKPHOS 74 TBILI 0.6 MG/PHOS: Recent Labs 05/20/21 0455 MG 1.8 Renal Panel: Recent Labs 05/20/21 0455 CREAT 0.88 BUN 14 GLUC 86 CA 8.8 CHLOR 110* K 4.0 CO2 23 NA 141 Heme: No results for input(s): RETICP, ABSRETIC, LD, JOHNIE, FE, TIBC, TRANSFERSAT in the last 24 hours. No results found for: UALBCR CrCl cannot be calculated (Unknown ideal weight.). Assessment/Plan A. fib with RVR Follows with EP as an outpatient Transferred to our facility for potential AV node ablation, dual-chamber place maker implantation -Telemetry -Continue Toprol -EP lab today for AVN ablation -Nursing will obtain echo report from [place] (they are closed today) -EP following Hyperlipidemia -Continue simvastatin Neuropathy Denies symptoms -Continue gabapentin Restless leg Denies current symptoms -Continue Mirapex Medication and Non-Pharmacologic VTE Prophylaxis/Anticoagulants 05/19/21 0215 vte current anticoag therapy (ar,oh) Lines, Drains, and Airways Line Peripheral 05/18/21 2300 Admission to Hospital Left Antecubital 20 Gauge 1 day Peripheral 05/18/21 2300 Right Antecubital 20 Gauge 1 day Patient does not currently have any lines, drains or airways. VTE Prophylaxis: Patient is already anti-coagulated. Disposition: Home Functional Status Prior to Admit: Medical Necessity for Continued Hospitalization potential AV node ablation, pacemaker Plan of care discussed with: Provider, RN, Patient SIGNATURE: Adalid Duvall DO PATIENT NAME: Gloria Mathew PAGER/CONTACT #: Team color pager Disclaimer: Portions of this note may have been generated using [employer] (more content not included)...[facility] 05-20-2021 NoteHNO ID: [id number] Author: Lili Costa RN Service: Care Management Author Type: Registered Nurse Type: Care Mgt Progress Note Filed: 05/20/2021 1:31 PM Note Text: CARE MANAGEMENT PROGRESS NOTE SERVICE DATE: 05/20/2021 SERVICE TIME: 1:31 PM LOS: 1 day This patient has been screened for Care Management Transitional Planning Services. At this time, it does not appear this patient will require transition planning services. Should this change, and the patient require transition/discharge planning services during this admission, please call [phone]. Lili Costa RN May 20, 2021 1:31 PM SIGNATURE: Lili Costa RN PATIENT NAME: Gloria Mathew DATE: May 20, 2021 TIME: 1:31 PM PAGER/CONTACT #: [phone] NoteHNO ID: [id number] Author: Adalid Duvall DO Service: Hospital Medicine Author Type: Physician Type: Progress Notes Filed: 05/19/2021 3:17 PM Note Text: DEPARTMENT OF HOSPITAL MEDICINE PROGRESS NOTE Hospital Medicine/Primary Attending: Adalid Duvall DO NIGHT AND WEEKEND COVERAGE: After 7pm please page [phone] SUBJECTIVE: Pt seen and examined. In bed in no acute distress. Reports continued palpitations although improved from yesterday. She is awaiting EP visit. Last dose of Coumadin yesterday. She denies any other complaint at this time she denies any chest pain, nausea, vomiting, fever, chills, dysuria, hematuria, headache, weakness, shortness of breath, cough. OBJECTIVE: PHYSICAL EXAM: BP 112/62 Pulse 93 Temp (Src) 98.1 (Oral) Resp 16 Ht 5' 2 (1.58m) SpO2 98% O2 Therapy: Room Air General - AANDOx3, NAD, Calm CV -irregular, S1 S2, No M/R/G RESP - CTA B/L No wheezes, ronchi, rales ABD - soft, NT, ND +BS EXT - no gross joint deformity, no clubbing, cyanosis, edema NEURO - CN II-XII grossly intact, no focal deficits MEDICATIONS: Current Facility-Administered Medications Medication Dose Route Frequency - simvastatin 10 mg tab(s) (ZOCOR) 10 mg ORAL AT BEDTIME - metoprolol tartrate (short acting) 50 mg tab(s) (LOPRESSOR) 50 mg ORAL q 12 H - pramipexole 0.375 mg tab(s) (MIRAPEX) 0.375 mg ORAL AT BEDTIME - gabapentin 200 mg cap(s) (NEURONTIN) 200 mg ORAL AT BEDTIME - gabapentin 100 mg cap(s) (NEURONTIN) 100 mg ORAL DAILY - sodium chloride 0.9 % (flush) 3-5 mL (BD POSIFLUSH) 3-5 mL INTRAVENOUS q 12 H - NaCl 0.9% iv flush bag 20 mL INTRAVENOUS PRN - phytonadione (vitamin K1) 5 mg tab(s) (MEPHYTON) 5 mg ORAL ONCE DATA: Diagnostic tests reviewed for today's visit: CBC: Recent Labs 05/19/21353 WBC 5.46 RBC 4.01 HB 12.2 HCT 36.8 PLT 150 MCV 91.8 MCH 30.4 MPV 8.6* Coags: Recent Labs 05/19/21 035 INR 2.6* BMP: Recent Labs 05/19/21 035 NA 140 K 3.9 CHLOR 110* CO2 22 BUN 16 CREAT 0.84 GLUC 83 CMP: Recent Labs 05/19/21353 NA 140 K 3.9 CHLOR 110* CO2 22 BUN 16 CREAT 0.84 GLUC 83 CA 8.4* MG 1.8 ANION 8* Cardiac Enzymes: No results for input(s): CK, MB, CKMB, TROPT in the last 24 hours. Liver Function, Amylase, Lipase: No results for input(s): TPROT, ALB, ALT, AST, ALKPHOS, TBILI, AMYLASE, LIPASE, LACTATE in the last 24 hours. MG/PHOS: Recent Labs 05/19/21 035 MG 1.8 Renal Panel: Recent Labs 05/19/21353 CREAT 0.84 BUN 16 GLUC 83 CA 8.4* CHLOR 110* K 3.9 CO2 22 NA 140 Heme: No results for input(s): RETICP, ABSRETIC, LD, JOHNIE, FE, TIBC, TRANSFERSAT in the last 24 hours. No results found for: UALBCR CrCl cannot be calculated (Unknown ideal weight.). Assessment/Plan A. fib with RVR Follows with EP as an outpatient Transferred to our facility for potential AV node ablation, dual-chamber place maker implantation -Telemetry -Continue Toprol -Hold Coumadin -P.o. vitamin K 5 mg -N.p.o. at midnight -Nursing will obtain echo report from [place] (they are closed today) -EP following Hyperlipidemia -Continue simvastatin Neuropathy Denies symptoms -Continue gabapentin Restless leg Denies current symptoms -Continue Mirapex Medication and Non-Pharmacologic VTE Prophylaxis/Anticoagulants 05/19/21 0215 vte current anticoag therapy (fl,oh) Lines, Drains, and Airways Line Peripheral 05/18/21 2300 Admission to Hospital Left Antecubital 20 Gauge <1 day Peripheral 05/18/21 2300 Right Antecubital 20 Gauge <1 day Patient does not currently have any lines, drains or airways. VTE Prophylaxis: Patient is already anti-coagulated. Disposition: Home Functional Status Prior to Admit: Medical Necessity for Continued Hospitalization potential AV node ablation, pacemaker Plan of care discussed with: Provider, RN, Patient SIGNATURE: Adalid Duvall DO PATIENT NAME: Gloria Moreland Quincy PAGER/CONTACT #: Team color pager Disclaimer: Portions of this note may have been generated using [employer] voice recognition software. Reasonable efforts were made to correct any dictation errors that resulted due to the programming of this software but some may still be present. Please note, the time of this note does not reflect the time I saw this patient today, but the time of this documentation.[facility] 05-04-2021 Evaluation note* Diagnosis Onset Date Resolution Status Atrial fibrillation acute 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 acute Hx of atrioventricular node ablation acute Presence of permanent cardiac pacemaker May, acute Atrial fibrillation acute 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 acute Fatigue acute Hx of atrioventricular node ablation acute Presence of permanent cardiac pacemaker May, acute S/P MVR (mitral valve replacement) acute Atrial fibrillation acute 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 acute Hx of atrioventricular node ablation acute Presence of permanent cardiac pacemaker May, acute Atrial fibrillation acute 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 acute Hx of atrioventricular node ablation acute Presence of permanent cardiac pacemaker May, acute S/P MVR (mitral valve replacement) acute [facility] Work Phone: 1(604) 327-662001-01-2022 Evaluation note* Diagnosis Onset Date Resolution Status Atrial fibrillation acute 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 acute Hx of atrioventricular node ablation acute Presence of permanent cardiac pacemaker May, acute Atrial fibrillation acute 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 acute Hx of atrioventricular node ablation acute Presence of permanent cardiac pacemaker May, acute S/P MVR (mitral valve replacement) acute Contusion of hip acute Fall acute FTT (failure to thrive) in adult acute [facility] Work Phone: 1(962) 614-846601-01-2022 Evaluation note* Diagnosis Onset Date Resolution Status Atrial fibrillation acute 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 acute Hx of atrioventricular node ablation acute Presence of permanent cardiac pacemaker May, acute Atrial fibrillation acute 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 acute Hx of atrioventricular node ablation acute Presence of permanent cardiac pacemaker May, acute S/P MVR (mitral valve replacement) acute Contusion of hip acute Fall acute FTT (failure to thrive) in adult acute Allergic rhinitis acute Atrial fibrillation acute Contusion of hip acute Debility acute Depression acute Hyperlipidemia acute Hypokalemia acute Neuropathic pain acute Osteoporosis acute Restless leg syndrome acute Right foot pain acute Vitamin B12 deficiency acute Vitamin D deficiency acute [facility] Work Phone: 1([phone]) 489-765901-01-2022 Evaluation note* Diagnosis Onset Date Resolution Status Atrial fibrillation acute 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 acute Hx of atrioventricular node ablation acute Presence of permanent cardiac pacemaker May, acute Atrial fibrillation acute 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 acute Hx of atrioventricular node ablation acute Presence of permanent cardiac pacemaker May, acute S/P MVR (mitral valve replacement) acute Contusion of hip acute Fall acute FTT (failure to thrive) in adult acute Allergic rhinitis acute Atrial fibrillation acute Contusion of hip acute Debility acute Depression acute Hyperlipidemia acute Hypokalemia acute Neuropathic pain acute Osteoporosis acute Restless leg syndrome acute Right foot pain acute Vitamin B12 deficiency acute Vitamin D deficiency acute Atrial fibrillation acute 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 acute Hx of atrioventricular node ablation acute Presence of permanent cardiac pacemaker May, acute [facility] Work Phone: 1(308) 424-208001-01-2022 Evaluation note* Diagnosis Onset Date Resolution Status Atrial fibrillation acute 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 acute Hx of atrioventricular node ablation acute Presence of permanent cardiac pacemaker May, acute Atrial fibrillation acute 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 acute Hx of atrioventricular node ablation acute Presence of permanent cardiac pacemaker May, acute S/P MVR (mitral valve replacement) acute Fall acute FTT (failure to thrive) in adult acute Contusion of hip resolved Allergic rhinitis acute Atrial fibrillation acute Debility acute Depression acute Hyperlipidemia acute Hypokalemia acute Neuropathic pain acute Osteoporosis acute Restless leg syndrome acute Vitamin B12 deficiency acute Vitamin D deficiency acute Contusion of hip resolved Right foot pain resolved Atrial fibrillation acute 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 acute Hx of atrioventricular node ablation acute Presence of permanent cardiac pacemaker May, acute [facility] Work Phone: 1(321) 614-711601-01-2022 Evaluation note* Diagnosis Onset Date Resolution Status Atrial fibrillation acute 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 acute Hx of atrioventricular node ablation acute Presence of permanent cardiac pacemaker May, acute S/P MVR (mitral valve replacement) acute Atrial fibrillation acute 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 acute Hx of atrioventricular node ablation acute Presence of permanent cardiac pacemaker May, acute [facility] Work Phone: 1(140) 852-473001-01-2022 Evaluation note* Diagnosis Onset Date Resolution Status Atrial fibrillation chronic 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 chronic Hx of atrioventricular node ablation chronic Presence of permanent cardiac pacemaker May, chronic Atrial fibrillation chronic 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 chronic Hx of atrioventricular node ablation chronic Hyperlipidemia chronic Presence of permanent cardiac pacemaker May, chronic S/P MVR (mitral valve replacement) chronic Cardiogenic shock acute Atrial fibrillation chronic 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 chronic Hx of atrioventricular node ablation chronic Presence of permanent cardiac pacemaker May, [facility] Work Phone: 1([phone]) 258-923601-01-2022 Evaluation note* Diagnosis Onset Date Resolution Status Atrial fibrillation chronic 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 chronic Hx of atrioventricular node ablation chronic Hyperlipidemia chronic Presence of permanent cardiac pacemaker May, chronic S/P MVR (mitral valve replacement) chronic Cardiogenic shock acute Atrial fibrillation chronic 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 chronic Hx of atrioventricular node ablation chronic Presence of permanent cardiac pacemaker May, [facility] Work Phone: 1(279) [phone] Evaluation note* Diagnosis Onset Date Resolution Status Atrial fibrillation chronic 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 chronic Hx of atrioventricular node ablation chronic Hyperlipidemia chronic Presence of permanent cardiac pacemaker May, chronic S/P MVR (mitral valve replacement) chronic Cardiogenic shock acute Atrial fibrillation chronic 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 chronic Hx of atrioventricular node ablation chronic Presence of permanent cardiac pacemaker May, chronic 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 chronic Hx of atrioventricular node ablation chronic Presence of permanent cardiac pacemaker May, [facility] Work Phone: 1([phone] 382-246901-01-2022 Evaluation note* Diagnosis Onset Date Resolution Status 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 chronic Hx of atrioventricular node ablation chronic Presence of permanent cardiac pacemaker May, [facility] Work Phone: 1(761) 772-172301-01-2022 Evaluation note* Diagnosis Onset Date Resolution Status Atrial fibrillation chronic 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 chronic Hx of atrioventricular node ablation chronic Hyperlipidemia chronic Presence of permanent cardiac pacemaker May, chronic S/P MVR (mitral valve replacement) chronic Atrial fibrillation chronic 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 chronic Hx of atrioventricular node ablation chronic Presence of permanent cardiac pacemaker May, [facility] Work Phone: [phone]) [phone] Evaluation note* Diagnosis Onset Date Resolution Status Atrial fibrillation chronic 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 chronic Hx of atrioventricular node ablation chronic Presence of permanent cardiac pacemaker May, [facility] Work Phone: 1([phone]) 729-333401-01-2022 Evaluation note* Diagnosis Onset Date Resolution Status Atrial fibrillation chronic 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 chronic Hx of atrioventricular node ablation chronic Hyperlipidemia chronic Presence of permanent cardiac pacemaker May, chronic S/P MVR (mitral valve replacement) chronic [facility] Work Phone: 1([phone]) 416-442301-01-2022 Evaluation note* Diagnosis Onset Date Resolution Status Atrial fibrillation chronic 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 chronic Hx of atrioventricular node ablation chronic Hyperlipidemia chronic Presence of permanent cardiac pacemaker May, chronic S/P MVR (mitral valve replacement) chronic Acute diverticulitis acute Acute lower gastrointestinal bleeding acute Transient hypotension acute [facility] Work Phone: 1([phone]) 373-532011-03-2021 NoteHNO ID: [id number] Author: Desmond Acosta MD Service: ? Author Type: Physician Type: Progress Notes Filed: 03/06/2021 9:17 AM Note Text: Heart and Vascular [facility] SECTION OF CARDIAC PACING and ELECTROPHYSIOLOGY PRIMARY CARE PHYSICIAN: Loree Vallecillo [address] [place] [id number] REFERRING PHYSICIAN: MANUEL, Dr Perez CHIEF COMPLAINT: PAF management HISTORY OF PRESENT ILLNESS: Ms. Mathew is a 80 year old female who presents today to discuss options for management of atrial fibrillation. 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 May 21 2018 started on Amio for AF, was on 200 tid and on May 27 2018 MEERA guided DCV. May 31 admitted for LT PLef and Polymorphic VT/Torsades Prolonged QTc 520ms, Amio stopped, BB held for bradycardia. December 2020 presented to [place] with dizziness and was in AF, given Amiodarone and underwent DCCV. From prior records she had H.o Torsades de pointes when on Amiodarone and BB for AF in 2018. Her TTe 09/2020 EF 65%, severely dilated LA and well functioning MV. She had done well until this past December when she experienced episode of atrial fibrillation needing emergency room visit. She since then has been on metoprolol. She wore a monitor for 14 days which showed a burden of A. fib of 1%. Subsequently on 23 February she had another episode of palpitations which woke her up at 5:30 in the morning. She felt uncomfortable in her chest. There was no dizziness shortness of breath. She came into the [place] emergency room with the help of her sister. She underwent DC cardioversion after that she was increased to 50 mg twice a day of metoprolol Since then to now no further episodes. She is able to climb up 3 flights of steps without stopping. She is able to do all her activities of daily living. No bleeding on the warfarin. She is tolerating the 50 mg bid of metoprolol without any obvious side effects PMH - TRISH IBS Lt renal calculi Family history -father had bradycardia needing a pacemaker. He had a pacemaker from [id number] and lived to [facility]. Prior Cardiac Testing ECG 01/30/21 - NSR/Ectopic low RAsite P inv 3., aVf AK 200 QRS 92 QTc 436 01/24/2021-sinus rhythm/low RAsite heart rate 64 bpm T wave inversions V1 and 2 not new normal QT QTc interval 03/04/2019-normal sinus rhythm, occasional PAC.?QTc 415 msec,Heart rate 64 bpm 06/01/2018 - Sinus 70 QTc 470 No U waves. 05/31/2018 - Sinus 55bpm QT 542 Tinv V1 V2 U wave V3-V6 05/27/2018 1527- AF 113bpm QTc 518 ? Holter 02/20/21 13 days - HR 50 - 113 AF burden 0.26% Longest episode 53mins max HR 140bpm 01/31/21 at 9 26AM No pause PAC 0.14% PVC 0.01% 30 day event monitor 08/21/18 through 07/06/2018: Sinus rhythm, sinus bradycardia, heart rate 53-67?bpm ? Echocardiogram 09/07/2020-EF 65%, mild LVH, severely dilated left atrium, mildly dilated right atrium, #29 [employer] bioprosthetic mitral valve with peak and mean gradients of 20 and 7 mmHg respectively, 1+ TR, 1+ AI ?06/14/18: EF 59%, right ventricle mildly dilated, RV systolic function normal, LAD severely dilated, RA mildly dilated, status post mitral valve replacement St. Zenon medical prosthetic mitral valve size #29, no mitral regurgitation, no mitral stenosis, mean gradient 6 mmHg, no stenosis or regurgitation, mild AI. 05/23/17: EF 55-60%, 3-4+ MR, moderate to severe mitral stenosis, 1-2+ TR, RVSP = 61 mmHg. ? Cardiac catheterization right and left 03/31/2018: EF 60%, on MEERA. Severe mitral valve calcification noted, left main normal, LAD normal, diag?1 and diag2?normal, circumflex normal, OM1-?3,?normal, ramus intermediate artery present, normal, right coronary artery dominant to posterior circulation, moderate size vessel, normal. Pulmonary capillary wedge pressure 24 mmHg, LV EDP 4 mmHg, gradient from wedge to LVEDP 20-25 mmHg consistent with ?severe mitral stenosis. ? PAST MEDICAL HISTORY Diagnosis Date - Atrial fibrillation (HCC) - Atrial fibrillation with RVR (HCC) - Breast mass, right - H/O maze procedure 04/16/2018 maze procedure with left and right atrial lesion sets (radiofrequency clamp and cryo) - H/O mitral valve replacement 04/16/2018 29-mm [facility] Zenon Epic bioprosthesis - IBS (irritable bowel syndrome) - Lung nodules 06/03/2018 - Mitral valve regurgitation - Mitral valve stenosis - Prolonged QT interval - Pulmonary HTN (HCC) - S/P left atrial appendage ligation 04/16/2018 exclusion of left atrial appendage with a 45 mm atrial clip. - Torsades de pointes (HCC) - Tricuspid regurgitation - Ventricular tachycardia (HCC) PAST SURGICAL HISTORY Procedure Laterality Date - ATRIAL APPENDAGE LIGATION 04/16/2018 exclusion of left a (more content not included)...[facility] 01-24-2021 NoteHNO ID: [id number] Author: Arnold Carlson APRN.MOLD DUMPER Service: ? Author Type: Nurse Practitioner Type: Progress Notes Filed: 01/24/2021 11:54 AM Note Text: Chief Complaint: Patient presents with: Cardiology Follow Up : Hispital follow up History of Present Illness: Gloria Mathew is a 80 year old female with history of mitral regurg and stenosis status post bioprosthetic mitral valve replacement, number [address] Zenon April 2018, paroxysmal atrial fibrillation hyperlipidemia, depression. At the time of the mitral valve replacement she did undergo left atrial appendage ligation with a atrial clip. She was last seen and evaluated October [address] Perez at that time she was doing well. She presented to [place] emergency room due to complaints of lightheadedness and dizziness the end of December. According to patient and her power of sports attorney she was in atrial fibrillation she did not respond to medical therapy the power of sports attorney states she received amiodarone therapy and therefore she underwent cardioversion restoring sinus rhythm. I do have no records to review at the time of this visit. Patient does have a history of polymorphic ventricular tachycardia and torsades when she had been previously treated with amiodarone and beta-edson therapy for the A. fib in 2019. Dr. Lyons's notes and previous review and Dr. Perez's notes state that if she had recurrence of the atrial fibrillation she would likely need AV karin ablation and pacemaker implant. To patient's knowledge this has been the first occurrence where she was lightheaded and dizzy she had no chest complaints. She presents today in follow-up. She is denying any complaints of chest pain, palpitations tach palpitations syncope nor near syncope. . PAST MEDICAL HISTORY Diagnosis Date - Atrial fibrillation (HCC) - Atrial fibrillation with RVR (HCC) - Breast mass, right - H/O maze procedure 04/16/2018 maze procedure with left and right atrial lesion sets (radiofrequency clamp and cryo) - H/O mitral valve replacement 04/16/2018 29-mm [facility] Zenon Epic bioprosthesis - IBS (irritable bowel syndrome) - Lung nodules 06/03/2018 - Mitral valve regurgitation - Mitral valve stenosis - Prolonged QT interval - Pulmonary HTN (HCC) - S/P left atrial appendage ligation 04/16/2018 exclusion of left atrial appendage with a 45 mm atrial clip. - Torsades de pointes (HCC) - Tricuspid regurgitation - Ventricular tachycardia (HCC) PAST SURGICAL HISTORY Procedure Laterality Date - ATRIAL APPENDAGE LIGATION 04/16/2018 exclusion of left atrial appendage with a 45 mm atrial clip. - BREAST BIOPSY - CARDIOVERSION 05/27/2018 - CHOLECYSTECTOMY HX 10/02/2011 - ECHO TRANSESOPHAGEAL 05/27/2018 - HYSTERECTOMY HX MARYELLEN/BLO - LEG SURGERY [...] uncle - Stroke Maternal Grandfather Social History Tobacco Use - Smoking status: Never Smoker - Smokeless tobacco: Never Used Vaping Use - Vaping Use: Never used Substance Use Topics - Alcohol use: No - Drug use: No Current Outpatient Medications Medication Sig - ipratropium bromide (ATROVENT) 42 mcg (0.06 %) nasal spray SPRAY 2 SPRAYS INTO EACH NOSTRIL TWICE A DAY - citalopram hydrobromide (CELEXA) 10 mg tablet - warfarin (COUMADIN) 1 mg tablet Take 1 tablet by mouth daily as directed. - simvastatin (ZOCOR) 10 mg tablet Take 10 mg by mouth daily at bedtime. - metoprolol tartrate, short acting, (LOPRESSOR) 25 mg tablet Take 1 tablet by mouth every 12 hours. - ascorbic acid, vitamin C, (VITAMIN C) 500 mg tablet Take 1 tablet by mouth twice daily. - pramipexole (MIRAPEX) 0.25 mg tablet Take 1 tablet by mouth daily at bedtime. - cholestyramine (QUESTRAN) 4 gram packet Take 1 Packet by mouth once daily. - alendronate (FOSAMAX) 70 mg tablet Take 1 tablet by mouth once each week. - Cyanocobalamin (VITAMIN B-12) 1,000 mcg subl Dissolve 1 tablet under the tongue once daily. - calcium carbonate (CALTRATE) 600 mg calcium (1,500 mg) tab Take 600 mg by mouth once daily. - gabapentin (NEURONTIN) 100 mg capsule Take 200 mg by mouth daily at bedtime. - Cholecalciferol, Vitamin D3, 1,000 unit cap Take 1,000 Units by mouth once daily. - amoxicillin (POLYMOX, AMOXIL) 500 mg capsule 4 capsules by mouth one hour before the dentist - Biotin-Silicon Wbeo-F-Cbtnqovn 5,000 mcg-100 mg- 50 mg tab Take 1 tablet by mouth once daily. No current facility-administered medications for this visit. ALLERGIES (more content not included)...[facility]07-20-2021 NoteHNO ID: [id number] Author: RT Linda(R) Service: Radiology Author Type: [employer] Conservation Laborer Type: Progress Notes Filed: 11/20/2020 2:03 PM Note Text: Radiology Service Progress Note PATIENT NAME: Gloria Mathew DATE OF SERVICE: November 20, 2020 TIME: 2:03 PM PATIENT IDENTITY VERIFICATION COMPLETED USING TWO (2) IDENTIFIERS: Name and Date of confirmed by patient verbally. FALL SCREENING: Has the patient had 2 falls in the last year or 1 fall with injury or currently using an Ambulatory Assistive Device (Walker, Cane, Wheelchair, Crutches, etc.)? No PATIENT GENDER DATA: Female. status: : No status: NO. PATIENT RELEVANT IMPLANT DATA REVIEWED: Yes RADIOLOGY DEPARTMENT: Mammography PERIPHERAL IV DATA: Not applicable SIGNED BY: RT Linda(R) November 20, 2020 2:03 [facility]12-04-2018 History of Past illness Narrative* Problem Noted Date Resolved Date Rheumatic mitral stenosis 04/06/20182017 Overview: Added automatically from request for surgery [id number] Mitral regurgitation 04/06/2018 04/18/2018 Overview: Added automatically from request for surgery [id number] Fibrocystic breast changes 07/11/201507/10 documented as of this encounter (statuses as of 08/05/2021) [facility]12-04-2018 History of Past illness Narrative* Problem Noted Date Resolved Date Rheumatic mitral stenosis 04/06/20182017 Overview: Added automatically from request for surgery [id number] Mitral regurgitation 04/06/2018 04/18/2018 Overview: Added automatically from request for surgery [id number] Fibrocystic breast changes 07/11/201507/10 documented as of this encounter (statuses as of 08/07/2021) [facility]12-04-2018 History of Past illness Narrative* Problem Noted Date Resolved Date Rheumatic mitral stenosis 04/06/20182017 Overview: Added automatically from request for surgery [id number] Mitral regurgitation 04/06/2018 04/18/2018 Overview: Added automatically from request for surgery [id number] Fibrocystic breast changes 07/11/201507/10 documented as of this encounter (statuses as of 09/25/2021) [facility]12-04-2018 History of Past illness Narrative* Problem Noted Date Resolved Date Rheumatic mitral stenosis 04/06/20182017 Overview: Added automatically from request for surgery [id number] Mitral regurgitation 04/06/2018 04/18/2018 Overview: Added automatically from request for surgery [id number] Fibrocystic breast changes 07/11/201507/10 documented as of this encounter (statuses as of 10/29/2021) [facility]12-04-2018 History of Past illness Narrative* Problem Noted Date Resolved Date Rheumatic mitral stenosis 04/06/20182017 Overview: Added automatically from request for surgery [id number] Mitral regurgitation 04/06/2018 04/18/2018 Overview: Added automatically from request for surgery [id number] Fibrocystic breast changes 07/11/201507/10 documented as of this encounter (statuses as of 10/31/2021) [facility] note Author Bud Mckee [facility] Note Date/Time September 14, 2024 10:02 am [facility] Medical Records Department [address] [place] [address] Anesthesia Postop Eval I 09/14/24 1001 MR#: [id number] Acct: [id number] Name: GLORIA MATHEW Rep #:[id number] : 1940 83 From: Bud FELDMAN PCP: Dr. Samantha Anglin MD Status:REG SD C Y Race: C Location: [place] [address] Anesthesia: Postop Eval I Current Vital Signs Temperature: 97.1 F Pulse Rate: 60 Blood Pressure: 143/67 Respiratory Rate: 16 Pulse Ox: 99 Assessment Airway patent: Yes Spontaneous unlabored respirations: Yes nausea: No Vomiting: No Anesthesia Complication: No Fluid Hydration Crystalloid volume administer (ml): 800 Total IV fluid infused: 800 Progress Note Anesthesia document: Postop Eval 1 completed: Yes 09/14/24 1002 <Electronically signed by Bud Mckee CRNA> Date _ Bud Mckee CRNA Cosigner Signature: Date CC: ~ Signed [facility] Work Phone: Evaluation note* Diagnosis Onset Date Resolution Status Chest pain resolved Atrial fibrillation with rapid ventricular response acute Cardiogenic shock acute S/P left atrial appendage ligation acute S/P Maze operation for atrial fibrillation acute S/P MVR (mitral valve replacement) acute Atrial fibrillation acute 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 acute Hx of atrioventricular node ablation acute Presence of permanent cardiac pacemaker May, acute Atrial fibrillation acute 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 acute Fatigue acute Hx of atrioventricular node ablation acute Presence of permanent cardiac pacemaker May, acute S/P MVR (mitral valve replacement) acute Atrial fibrillation acute 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 acute Hx of atrioventricular node ablation acute Presence of permanent cardiac pacemaker May, acute Atrial fibrillation acute 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 acute Hx of atrioventricular node ablation acute Presence of permanent cardiac pacemaker May, acute S/P MVR (mitral valve replacement) acute [facility] Work Phone: Evaluation note* Diagnosis Close exposure to COVID-19 virus- [facility] Diagnosis [facility] living current use of anticoagulant Long-term (current) use of 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s Paroxysmal atrial fibrillation (HCC) Atrial fibrillation documented in this encounter [facility] note* Diagnosis senior living current use of anticoagulant Long-term (current) use of 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s Paroxysmal atrial fibrillation (HCC) Atrial fibrillation documented in this encounter [facility] note* Diagnosis Atrial fibrillation, chronic (HCC)- Primary Atrial fibrillation documented in this encounter [facility] note* Diagnosis senior living current use of anticoagulant Long-term (current) use of 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s Paroxysmal atrial fibrillation (HCC) Atrial [facility] Diagnosis Onset Date Resolution Status Fall acute FTT (failure to thrive) in adult acute Contusion of hip resolved Allergic rhinitis acute Atrial fibrillation acute Debility acute Depression acute Hyperlipidemia acute Hypokalemia acute Neuropathic pain acute Osteoporosis acute Restless leg syndrome acute Vitamin B12 deficiency acute Vitamin D deficiency acute Contusion of hip resolved Right foot pain resolved Atrial fibrillation acute 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 acute Hx of atrioventricular node ablation acute Presence of permanent cardiac pacemaker May, acute Atrial fibrillation acute Atrial fibrillation with rapid ventricular response acute Presence of permanent cardiac pacemaker May, acute [facility] Work Phone: Evaluation note* Diagnosis Onset Date Resolution Status Fall acute FTT (failure to thrive) in adult acute Contusion of hip resolved Allergic rhinitis acute Atrial fibrillation acute Debility acute Depression acute Hyperlipidemia acute Hypokalemia acute Neuropathic pain acute Osteoporosis acute Restless leg syndrome acute Vitamin B12 deficiency acute Vitamin D deficiency acute Contusion of hip resolved Right foot pain resolved Atrial fibrillation acute 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 acute Hx of atrioventricular node ablation acute Presence of permanent cardiac pacemaker May, acute Atrial fibrillation acute Atrial fibrillation with rapid ventricular response acute Presence of permanent cardiac pacemaker May, acute Atrial fibrillation acute 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 acute Hx of atrioventricular node ablation acute Presence of permanent cardiac pacemaker May, acute S/P MVR (mitral valve replacement) acute [facility] Work Phone: Evaluation note* Diagnosis Onset Date Resolution Status Fall acute FTT (failure to thrive) in adult acute Contusion of hip resolved Allergic rhinitis acute Atrial fibrillation acute Debility acute Depression acute Hyperlipidemia acute Hypokalemia acute Neuropathic pain acute Osteoporosis acute Restless leg syndrome acute Vitamin B12 deficiency acute Vitamin D deficiency acute Contusion of hip resolved Right foot pain resolved Atrial fibrillation acute 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 acute Hx of atrioventricular node ablation acute Presence of permanent cardiac pacemaker May, acute Atrial fibrillation acute Atrial fibrillation with rapid ventricular response acute Presence of permanent cardiac pacemaker May, acute Atrial fibrillation acute 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 acute Hx of atrioventricular node ablation acute Presence of permanent cardiac pacemaker May, acute S/P MVR (mitral valve replacement) acute Atrial fibrillation acute 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 acute Hx of atrioventricular node ablation acute Presence of permanent cardiac pacemaker May, acute [facility] Work Phone: Evaluation note* Diagnosis Onset Date Resolution Status Allergic rhinitis acute Atrial fibrillation acute Debility acute Depression acute Hyperlipidemia acute Hypokalemia acute Neuropathic pain acute Osteoporosis acute Restless leg syndrome acute Vitamin B12 deficiency acute Vitamin D deficiency acute Contusion of hip resolved Right foot pain resolved Atrial fibrillation acute Atrial fibrillation with rapid ventricular response acute Presence of permanent cardiac pacemaker May, acute Atrial fibrillation acute 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 acute Hx of atrioventricular node ablation acute Presence of permanent cardiac pacemaker May, acute S/P MVR (mitral valve replacement) acute Atrial fibrillation acute 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 acute Hx of atrioventricular node ablation acute Presence of permanent cardiac pacemaker May, acute [facility] Work Phone: Evaluation noteNo assessment information available [facility] Work Phone: Evaluation note* Diagnosis Onset Date Resolution Status 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 resolved Acute diverticulitis acute Acute lower gastrointestinal bleeding resolved Transient hypotension resolv ed [facility] Work Phone: Evaluation note* Diagnosis Onset Date Resolution Status Acute diverticulitis acute Acute lower gastrointestinal bleeding resolved Transient hypotension resolv ed Acute diverticulitis acute Bright red blood per rectum acute [facility] Work Phone: Evaluation note* Diagnosis Lumbar stenosis with neurogenic claudication- [facility]No reason for referral information [facility] Work Phone: Summary Purpose Family History No Family History Records Found Relationship Condition Age at Onset Recorded Date/T yehuda mother Cardiac disease Unknown Coronary artery disease Unknown Hypertension Unknown father Cardiac disease Unknown Bradycardia Unknown Relationship Condition Age at Onset Recorded Date/T yehuda mother Cardiac disease Unknown Coronary artery disease Unknown Hypertension Unknown Malignant neoplasm of breast Unknown father Cardiac disease Unknown Bradycardia Unknown Malignant neoplasm of colon Unknown Advance Directives No Advanced Directives Records Found Advance Directive Response Recorded Date/ Time Name of Medical Power of Cigarette Inspector sister May 05, 2021 10:17pm Name of Medical Power of Cigarette Inspector Naina jaeger May 06, 2021 5:39pm Living Will Yes May 18 5:20am Power of Cigarette Inspector Yes May 18, 2021 5:20am Documents on File Type Date Recorded Patient Director Of Strategic Initiatives Expl anation Advance Directive(s) 05/23/2021 3:18 PM Advance Directive(s) 06/02/2018 4:21 PM Advance Directive Response Recorded Date/ Time Living Will Yes May 18 5:20am Power of Cigarette Inspector Yes May 18, 2021 5:20am Advance Directive Response Recorded Date/ Time Living Will Yes October 05, 2021 8 :14pm Power of Cigarette Inspector Yes October 05, 2021 8:14pm Advance Directive Response Recorded Date/ Time Name of Medical Power of Cigarette Inspector Naina jaeger October 05, 2021 11:09pm Living Will Yes October 09, 2021 1 2:58pm Power of Cigarette Inspector Yes October 09, 2021 12:58pm Advance Directive Response Recorded Date/ Time Name of Medical Power of Cigarette Inspector Naina jaeger October 05, 2021 11:09pm Name of Medical Power of Cigarette Inspector Naina jaeger, sister October 09, 2021 12:58pm Living Will Yes October 09, 2021 1 2:58pm Power of Cigarette Inspector Yes October 09, 2021 12:58pm Documents on File Type Date Recorded Patient Director Of Strategic Initiatives Expl anation Advance Directive(s) 05/23/2021 3:18 PM Advance Directive(s) 06/02/2018 4:21 PM Advance Directive Response Recorded Date/ Time Name of Medical Power of Cigarette Inspector Naina jaeger sister October 09, 2021 12:58pm Living Will Yes October 09, 2021 1 2:58pm Power of Cigarette Inspector Yes October 09, 2021 12:58pm Advance Directive Response Recorded Date/ Time Living Will Yes October 09, 2021 1 2:58pm Power of Cigarette Inspector Yes October 09, 2021 12:58pm Advance Directive Response Recorded Date/ Time Living Will Yes October 09, 2021 1 1:58am Power of Cigarette Inspector Yes October 09, 2021 11:58am Advance Directive Response Recorded Date/ Time Name of Medical Power of Cigarette Inspector sister present , POA July 02, 2023 11:54am Living Will Yes June 11:54am Power of Cigarette Inspector Yes July 02, 2023 11:54am Advance Directive Response Recorded Date/ Time Name of Medical Power of Cigarette Inspector sister present , POA July 02, 2023 4:33pm Living Will Yes June, 024 4:33pm Power of Cigarette Inspector Yes July 02, 2023 4:33pm Advance Directive Response Recorded Date/ Time Name of Medical Power of Cigarette Inspector sister present , POA July 02, 2023 5:33pm Living Will Yes June, 024 5:33pm Power of Cigarette Inspector Yes July 02, 2023 5:33pm Advance Directive Response Recorded Date/ Time Name of Medical Power of Cigarette Inspector sister present , POA July 02, 2023 5:33pm Name of Medical Power of Cigarette Inspector ON FILE September 09, 2023 11:25am Living Will Yes September 09, 2023 11 :25am Power of Cigarette Inspector Yes September 09, 2023 11:25am Advance Directive Response Recorded Date/ Time Living Will Yes October 28, 2023 6:42pm Do you have a Healthcare Power of Cigarette Inspector? Yes October 28, 2023 6:42pm Living Will Yes February 02 12:07pm Do you have a Healthcare Power of Cigarette Inspector? Yes February 03, 2024 12:07pm Living Will Yes April 03 2:14am Do you have a Healthcare Power of Cigarette Inspector? Yes April 03, 2024 2:14am Living Will Yes May 04 5:45am Do you have a Healthcare Power of Cigarette Inspector? Yes May 04, 2024 5:45am Living Will Yes June 04 5:37am Do you have a Healthcare Power of Cigarette Inspector? Yes June 04, 2024 5:37am Living Will Yes July 02, 2024 8:29am Do you have a Healthcare Power of Cigarette Inspector? Yes July 02, 2024 8:29am Advance Directive Response Recorded Date/ Time Living Will Yes October 28, 2023 6:42pm Do you have a Healthcare Power of Cigarette Inspector? Yes October 28, 2023 6:42pm Do you have a Healthcare Power of Cigarette Inspector? Yes September 12, 2024 9:27am Living Will Yes May 04 5:45am Do you have a Healthcare Power of Cigarette Inspector? Yes May 04, 2024 5:45am Living Will Yes June 04 5:37am Do you have a Healthcare Power of Cigarette Inspector? Yes June 04, 2024 5:37am Living Will Yes July 02, 2024 8:29am Do you have a Healthcare Power of Cigarette Inspector? Yes July 02, 2024 8:29am Living Will Yes August 01, 2024 10:43pm Do you have a Healthcare Power of Cigarette Inspector? Yes August 01, 2024 10:43pm Advance Directive Response Recorded Date/ Time Do you have a Healthcare Power of Cigarette Inspector? Yes September 12, 2024 9:27am Living Will Yes July 02, 2024 8:29am Do you have a Healthcare Power of Cigarette Inspector? Yes July 02, 2024 8:29am Living Will Yes August 01, 2024 10:43pm Do you have a Healthcare Power of Cigarette Inspector? Yes August 01, 2024 10:43pm Living Will Yes August 31, 2024 10:02pm Do you have a Healthcare Power of Cigarette Inspector? Yes August 31, 2024 10:02pm Advance Directive Response Recorded Date/ Time Living Will Yes October 28, 2023 6:42pm Do you have a Healthcare Power of Cigarette Inspector? Yes October 28, 2023 6:42pm Do you have a Healthcare Power of Cigarette Inspector? Yes September 12, 2024 9:27am Living Will Yes August 01, 2024 10:43pm Do you have a Healthcare Power of Cigarette Inspector? Yes August 01, 2024 10:43pm Living Will Yes August 31, 2024 10:02pm Do you have a Healthcare Power of Cigarette Inspector? Yes August 31, 2024 10:02pm Advance Directive Response Recorded Date/ Time Living Will Yes October 28, 2023 6:42pm Do you have a Healthcare Power of Cigarette Inspector? Yes October 28, 2023 6:42pm Do you have a Healthcare Power of Cigarette Inspector? Yes September 12, 2024 9:27am Living Will Yes August 31, 2024 10:02pm Do you have a Healthcare Power of Cigarette Inspector? Yes August 31, 2024 10:02pm Advance Directive Response Recorded Date/ Time Living Will Yes October 28, 2023 6:42pm Do you have a Healthcare Power of Cigarette Inspector? Yes October 28, 2023 6:42pm Living Will Yes August 31, 2024 10:02pm Do you have a Healthcare Power of Cigarette Inspector? Yes August 31, 2024 10:02pm Chief Complaint and Reason for Visit Chief Complaint S/O CHEST PAIN, AFIB/RVR AFIB RVR PALPITATIONS AFIB RVR AFIB RVR AFIB RVR AFIB RVR AFIB RVR PAF WITH RVR, CARDIOGENIC SHOCK PAF WITH RVR, CARDIOGENIC SHOCK S/O new implant [facility]/KR 2:00 post [facility]/JAH 1:30 S/O 4WK FU/JAH 11:30 S/O Reason for Visit Chest pain Atrial fibrillation with rapid ventricular response Cardiogenic shock S/P left atrial appendage ligation S/P Maze operation for atrial fibrillation S/P MVR (mitral valve replacement) Atrial fibrillation 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 Hx of atrioventricular node ablation Presence of permanent cardiac pacemaker Atrial fibrillation 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 Fatigue Hx of atrioventricular node ablation Presence of permanent cardiac pacemaker S/P MVR (mitral valve replacement) Atrial fibrillation 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 Hx of atrioventricular node ablation Presence of permanent cardiac pacemaker Atrial fibrillation 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 Hx of atrioventricular node ablation Presence of permanent cardiac pacemaker S/P MVR (mitral valve replacement) Chief Complaint new implant [facility]/KR 2:00 post [facility]/JAH 1:30 S/O 4WK FU/JAH 11:30 S/O S/O S/O Reason for Visit Atrial fibrillation 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 Hx of atrioventricular node ablation Presence of permanent cardiac pacemaker Atrial fibrillation 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 Fatigue Hx of atrioventricular node ablation Presence of permanent cardiac pacemaker S/P MVR (mitral valve replacement) Atrial fibrillation 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 Hx of atrioventricular node ablation Presence of permanent cardiac pacemaker Atrial fibrillation 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 Hx of atrioventricular node ablation Presence of permanent cardiac pacemaker S/P MVR (mitral valve replacement) Chief Complaint S/O 4WK FU/JAH 11:30 S/O S/O S/O FALL / INTRACTABLE PAIN / FTT ADULT Reason for Visit Atrial fibrillation 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 Hx of atrioventricular node ablation Presence of permanent cardiac pacemaker Atrial fibrillation 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 Hx of atrioventricular node ablation Presence of permanent cardiac pacemaker S/P MVR (mitral valve replacement) Contusion of hip Fall FTT (failure to thrive) in adult Chief Complaint S/O 4WK FU/JAH 11:30 S/O S/O S/O FALL / INTRACTABLE PAIN / FTT ADULT FALL / INTRACTABLE PAIN / FTT ADULT FALL / INTRACTABLE PAIN / FTT ADULT FALL / INTRACTABLE PAIN / FTT ADULT FALLS AND INTRACTABLE PAIN, FAILURE TO THRIVE SWELLING Reason for Visit Atrial fibrillation 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 Hx of atrioventricular node ablation Presence of permanent cardiac pacemaker Atrial fibrillation 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 Hx of atrioventricular node ablation Presence of permanent cardiac pacemaker S/P MVR (mitral valve replacement) Contusion of hip Fall FTT (failure to thrive) in adult Allergic rhinitis Atrial fibrillation Contusion of hip Debility Depression Hyperlipidemia Hypokalemia Neuropathic pain Osteoporosis Restless leg syndrome Right foot pain Vitamin B12 deficiency Vitamin D deficiency Chief Complaint S/O 4WK FU/JAH 11:30 S/O S/O S/O FALL / INTRACTABLE PAIN / FTT ADULT FALL / INTRACTABLE PAIN / FTT ADULT FALL / INTRACTABLE PAIN / FTT ADULT FALL / INTRACTABLE PAIN / FTT ADULT FALLS AND INTRACTABLE PAIN, FAILURE TO THRIVE SWELLING 3 mos remote PPM f/u Reason for Visit Atrial fibrillation 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 Hx of atrioventricular node ablation Presence of permanent cardiac pacemaker Atrial fibrillation 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 Hx of atrioventricular node ablation Presence of permanent cardiac pacemaker S/P MVR (mitral valve replacement) Contusion of hip Fall FTT (failure to thrive) in adult Allergic rhinitis Atrial fibrillation Contusion of hip Debility Depression Hyperlipidemia Hypokalemia Neuropathic pain Osteoporosis Restless leg syndrome Right foot pain Vitamin B12 deficiency Vitamin D deficiency Atrial fibrillation 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 Hx of atrioventricular node ablation Presence of permanent cardiac pacemaker Chief Complaint 4WK FU/JAH 11:30 S/O S/O S/O FALL / INTRACTABLE PAIN / FTT ADULT FALL / INTRACTABLE PAIN / FTT ADULT FALL / INTRACTABLE PAIN / FTT ADULT FALL / INTRACTABLE PAIN / FTT ADULT FALLS AND INTRACTABLE PAIN, FAILURE TO THRIVE SWELLING 3 mos remote PPM f/u S/O Reason for Visit Atrial fibrillation 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 Hx of atrioventricular node ablation Presence of permanent cardiac pacemaker Atrial fibrillation 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 Hx of atrioventricular node ablation Presence of permanent cardiac pacemaker S/P MVR (mitral valve replacement) Fall FTT (failure to thrive) in adult Contusion of hip Allergic rhinitis Atrial fibrillation Debility Depression Hyperlipidemia Hypokalemia Neuropathic pain Osteoporosis Restless leg syndrome Vitamin B12 deficiency Vitamin D deficiency Contusion of hip Right foot pain Atrial fibrillation 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 Hx of atrioventricular node ablation Presence of permanent cardiac pacemaker Chief Complaint S/O S/O FALL / INTRACTABLE PAIN / FTT ADULT FALL / INTRACTABLE PAIN / FTT ADULT FALL / INTRACTABLE PAIN / FTT ADULT FALL / INTRACTABLE PAIN / FTT ADULT FALLS AND INTRACTABLE PAIN, FAILURE TO THRIVE SWELLING 3 mos remote PPM f/u remote PPM f/u S/O S/O Reason for Visit Fall FTT (failure to thrive) in adult Contusion of hip Allergic rhinitis Atrial fibrillation Debility Depression Hyperlipidemia Hypokalemia Neuropathic pain Osteoporosis Restless leg syndrome Vitamin B12 deficiency Vitamin D deficiency Contusion of hip Right foot pain Atrial fibrillation 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 Hx of atrioventricular node ablation Presence of permanent cardiac pacemaker Atrial fibrillation Atrial fibrillation with rapid ventricular response Presence of permanent cardiac pacemaker Chief Complaint S/O FALL / INTRACTABLE PAIN / FTT ADULT FALL / INTRACTABLE PAIN / FTT ADULT FALL / INTRACTABLE PAIN / FTT ADULT FALL / INTRACTABLE PAIN / FTT ADULT FALLS AND INTRACTABLE PAIN, FAILURE TO THRIVE SWELLING 3 mos remote PPM f/u remote PPM f/u S/O S/O PANCREATIC CYST S/O DR FALK 5 MO F/U Reason for Visit Fall FTT (failure to thrive) in adult Contusion of hip Allergic rhinitis Atrial fibrillation Debility Depression Hyperlipidemia Hypokalemia Neuropathic pain Osteoporosis Restless leg syndrome Vitamin B12 deficiency Vitamin D deficiency Contusion of hip Right foot pain Atrial fibrillation 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 Hx of atrioventricular node ablation Presence of permanent cardiac pacemaker Atrial fibrillation Atrial fibrillation with rapid ventricular response Presence of permanent cardiac pacemaker Atrial fibrillation 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 Hx of atrioventricular node ablation Presence of permanent cardiac pacemaker S/P MVR (mitral valve replacement) Chief Complaint FALL / INTRACTABLE P AIN / FTT ADULT FALL / INTRACTABLE PAIN / FTT ADULT FALL / INTRACTABLE PAIN / FTT ADULT FALL / INTRACTABLE PAIN / FTT ADULT FALLS AND INTRACTABLE PAIN, FAILURE TO THRIVE SWELLING 3 mos remote PPM f/u remote PPM f/u S/O S/O PANCREATIC CYST S/O DR FALK 5 MO F/U 3 mos remote PPM f/u S/O DR FALK Reason for Visit Fall FTT (failure to thrive) in adult Contusion of hip Allergic rhinitis Atrial fibrillation Debility Depression Hyperlipidemia Hypokalemia Neuropathic pain Osteoporosis Restless leg syndrome Vitamin B12 deficiency Vitamin D deficiency Contusion of hip Right foot pain Atrial fibrillation 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 Hx of atrioventricular node ablation Presence of permanent cardiac pacemaker Atrial fibrillation Atrial fibrillation with rapid ventricular response Presence of permanent cardiac pacemaker Atrial fibrillation 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 Hx of atrioventricular node ablation Presence of permanent cardiac pacemaker S/P MVR (mitral valve replacement) Atrial fibrillation 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 Hx of atrioventricular node ablation Presence of permanent cardiac pacemaker Chief Complaint FALLS AND INTRACTABL E PAIN, FAILURE TO THRIVE remote PPM f/u S/O S/O PANCREATIC CYST S/O DR FALK 5 MO F/U 3 mos remote PPM f/u S/O DR FALK S/O DR FALK SCREENING RT VENTRICULAR BACK PAIN/PAIN IN BUTTOCK-RX HERE Reason for Visit Allergic rhinitis Atrial fibrillation Debility Depression Hyperlipidemia Hypokalemia Neuropathic pain Osteoporosis Restless leg syndrome Vitamin B12 deficiency Vitamin D deficiency Contusion of hip Right foot pain Atrial fibrillation Atrial fibrillation with rapid ventricular response Presence of permanent cardiac pacemaker Atrial fibrillation 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 Hx of atrioventricular node ablation Presence of permanent cardiac pacemaker S/P MVR (mitral valve replacement) Atrial fibrillation 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 Hx of atrioventricular node ablation Presence of permanent cardiac pacemaker Chief Complaint S/O PANCREATIC CYST S/O DR FALK 5 MO F/U 3 mos remote PPM f/u S/O DR FALK SCREENING S/O DR FALK RT VENTRICULAR BACK PAIN/PAIN IN BUTTOCK-RX HERE Reason for Visit Atrial fibrillation 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 Hx of atrioventricular node ablation Presence of permanent cardiac pacemaker S/P MVR (mitral valve replacement) Atrial fibrillation 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 Hx of atrioventricular node ablation Presence of permanent cardiac pacemaker Chief Complaint S/O DR FALK 5 MO F/U 3 mos remote PPM f/u S/O DR FALK SCREENING S/O DR FALK S/O DR FALK S/O DR FALK RT VENTRICULAR BACK PAIN/PAIN IN BUTTOCK-RX HERE Reason for Visit Atrial fibrillation 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 Hx of atrioventricular node ablation Presence of permanent cardiac pacemaker S/P MVR (mitral valve replacement) Atrial fibrillation 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 Hx of atrioventricular node ablation Presence of permanent cardiac pacemaker Chief Complaint 3 mos remote PPM f/u S/O DR FALK SCREENING S/O DR FALK S/O DR FALK RT VENTRICULAR BACK PAIN/PAIN IN BUTTOCK-RX HERE 4 m fu S/O DR FALK LT HIP PAIN 3 mos remote PPM f/u Diarrhea STOOL SAMPLE ONLY Reason for Visit Atrial fibrillation 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 Hx of atrioventricular node ablation Presence of permanent cardiac pacemaker Atrial fibrillation 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 Hx of atrioventricular node ablation Hyperlipidemia Presence of permanent cardiac pacemaker S/P MVR (mitral valve replacement) Cardiogenic shock Atrial fibrillation 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 Hx of atrioventricular node ablation Presence of permanent cardiac pacemaker Chief Complaint 3 mos remote PPM f/u S/O DR FALK SCREENING S/O DR FALK S/O DR FALK RT VENTRICULAR BACK PAIN/PAIN IN BUTTOCK-RX HERE 4 m fu S/O DR FALK LT HIP PAIN 3 mos remote PPM f/u Diarrhea STOOL SAMPLE ONLY S/O DR FALK Reason for Visit Atrial fibrillation 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 Hx of atrioventricular node ablation Presence of permanent cardiac pacemaker Atrial fibrillation 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 Hx of atrioventricular node ablation Hyperlipidemia Presence of permanent cardiac pacemaker S/P MVR (mitral valve replacement) Cardiogenic shock Atrial fibrillation 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 Hx of atrioventricular node ablation Presence of permanent cardiac pacemaker Chief Complaint SCREENING S/O DR FALK S/O DR FALK RT VENTRICULAR BACK PAIN/PAIN IN BUTTOCK-RX HERE 4 m fu S/O DR FALK LT HIP PAIN 3 mos remote PPM f/u 3 mos remote PPM f/u Diarrhea STOOL SAMPLE ONLY S/O DR FALK Reason for Visit Atrial fibrillation 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 Hx of atrioventricular node ablation Hyperlipidemia Presence of permanent cardiac pacemaker S/P MVR (mitral valve replacement) Cardiogenic shock Atrial fibrillation 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 Hx of atrioventricular node ablation Presence of permanent cardiac pacemaker Chief Complaint S/O DR FALK RT VENTRICULAR BACK PAIN/PAIN IN BUTTOCK-RX HERE 4 m fu S/O DR FALK LT HIP PAIN 3 mos remote PPM f/u 3 mos remote PPM f/u Diarrhea STOOL SAMPLE ONLY S/O DR FALK S/O Reason for Visit Atrial fibrillation 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 Hx of atrioventricular node ablation Hyperlipidemia Presence of permanent cardiac pacemaker S/P MVR (mitral valve replacement) Cardiogenic shock Atrial fibrillation 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 Hx of atrioventricular node ablation Presence of permanent cardiac pacemaker Chief Complaint S/O DR FALK RT VENTRICULAR BACK PAIN/PAIN IN BUTTOCK-RX HERE 4 m fu S/O DR AFLK LT HIP PAIN 3 mos remote PPM f/u 3 mos remote PPM f/u Diarrhea STOOL SAMPLE ONLY S/O DR FALK S/O S/O 1 YR IN CLINIC CK Reason for Visit Atrial fibrillation 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 Hx of atrioventricular node ablation Hyperlipidemia Presence of permanent cardiac pacemaker S/P MVR (mitral valve replacement) Cardiogenic shock Atrial fibrillation 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 Hx of atrioventricular node ablation Presence of permanent cardiac pacemaker 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 Hx of atrioventricular node ablation Presence of permanent cardiac pacemaker Chief Complaint RT VENTRICULAR BACK PAIN/PAIN IN BUTTOCK-RX HERE 4 m fu S/O DR FALK LT HIP PAIN 3 mos remote PPM f/u 3 mos remote PPM f/u Diarrhea STOOL SAMPLE ONLY S/O DR FALK S/O 1 YR IN CLINIC CK S/O Reason for Visit Atrial fibrillation 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 Hx of atrioventricular node ablation Hyperlipidemia Presence of permanent cardiac pacemaker S/P MVR (mitral valve replacement) Cardiogenic shock Atrial fibrillation 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 Hx of atrioventricular node ablation Presence of permanent cardiac pacemaker 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 Hx of atrioventricular node ablation Presence of permanent cardiac pacemaker Chief Complaint S/O DR MOODISPAW S/O 1 YR IN CLINIC CK S/O S/O Reason for Visit 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 Hx of atrioventricular node ablation Presence of permanent cardiac pacemaker Chief Complaint S/O 1 YR IN CLINIC CK S/O S/O S/O Reason for Visit 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 Hx of atrioventricular node ablation Presence of permanent cardiac pacemaker Chief Complaint S/O S/O 6 M FU 3 mos remote PPM f/u S/O POST MITRAL VALVE REPLACEMENT S/O Reason for Visit Atrial fibrillation 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 Hx of atrioventricular node ablation Hyperlipidemia Presence of permanent cardiac pacemaker S/P MVR (mitral valve replacement) Atrial fibrillation 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 Hx of atrioventricular node ablation Presence of permanent cardiac pacemaker Chief Complaint S/O S/O 6 M FU 3 mos remote PPM f/u S/O POST MITRAL VALVE REPLACEMENT S/O RIGHT BREAST PAIN S/O Reason for Visit Atrial fibrillation 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 Hx of atrioventricular node ablation Hyperlipidemia Presence of permanent cardiac pacemaker S/P MVR (mitral valve replacement) Atrial fibrillation 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 Hx of atrioventricular node ablation Presence of permanent cardiac pacemaker Chief Complaint S/O 6 M FU 3 mos remote PPM f/u S/O POST MITRAL VALVE REPLACEMENT S/O RIGHT BREAST PAIN S/O Reason for Visit Atrial fibrillation 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 Hx of atrioventricular node ablation Hyperlipidemia Presence of permanent cardiac pacemaker S/P MVR (mitral valve replacement) Atrial fibrillation 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 Hx of atrioventricular node ablation Presence of permanent cardiac pacemaker Chief Complaint 3 mos remote PPM f/u S/O POST MITRAL VALVE REPLACEMENT S/O RIGHT BREAST PAIN S/O OSTEOPOROSIS S/O Reason for Visit Atrial fibrillation 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 Hx of atrioventricular node ablation Presence of permanent cardiac pacemaker Chief Complaint POST MITRAL VALVE RE PLACEMENT S/O RIGHT BREAST PAIN S/O OSTEOPOROSIS S/O S/O Chief Complaint OSTEOPOROSIS Pacer Check Remote S/O S/O S/O Pacer Check Remote 6 M FU S/O Reason for Visit Atrial fibrillation 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 Hx of atrioventricular node ablation Hyperlipidemia Presence of permanent cardiac pacemaker S/P MVR (mitral valve replacement) Chief Complaint S/O S/O Pacer Check Remote 6 M FU S/O S/O Reason for Visit Atrial fibrillation 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 Hx of atrioventricular node ablation Hyperlipidemia Presence of permanent cardiac pacemaker S/P MVR (mitral valve replacement) Chief Complaint S/O Pacer Check Remote 6 M FU S/O S/O S/O GI BLEED Reason for Visit Atrial fibrillation 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 Hx of atrioventricular node ablation Hyperlipidemia Presence of permanent cardiac pacemaker S/P MVR (mitral valve replacement) Acute diverticulitis Acute lower gastrointestinal bleeding Transient hypotension Chief Complaint S/O Pacer Check Remote 6 M FU S/O S/O S/O GI BLEED GI BLEED Reason for Visit Atrial fibrillation 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 Hx of atrioventricular node ablation Hyperlipidemia Presence of permanent cardiac pacemaker S/P MVR (mitral valve replacement) Acute diverticulitis Acute lower gastrointestinal bleeding Transient hypotension Chief Complaint S/O Pacer Check Remote 6 M FU S/O S/O S/O GI BLEED GI BLEED GI BLEED Reason for Visit Atrial fibrillation 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 Hx of atrioventricular node ablation Hyperlipidemia Presence of permanent cardiac pacemaker S/P MVR (mitral valve replacement) Acute diverticulitis Acute lower gastrointestinal bleeding Transient hypotension Chief Complaint S/O Pacer Check Remote 6 M FU S/O S/O S/O GI BLEED GI BLEED GI BLEED S/O Reason for Visit 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 Acute diverticulitis Acute lower gastrointestinal bleeding Transient hypotension Chief Complaint 6 M FU S/O S/O S/O GI BLEED GI BLEED GI BLEED S/O Reason for Visit 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 Acute diverticulitis Acute lower gastrointestinal bleeding Transient hypotension Chief Complaint S/O S/O GI BLEED GI BLEED GI BLEED S/O Pacer Check Remote BLOOD IN STOOL S/O Reason for Visit Acute diverticulitis Acute lower gastrointestinal bleeding Transient hypotension Acute diverticulitis Bright red blood per rectum Chief Complaint S/O S/O GI BLEED GI BLEED GI BLEED S/O Pacer Check Remote BLOOD IN STOOL S/O stat fingerstick PT/INR stat fingerstick PT/INR Reason for Visit Acute diverticulitis Acute lower gastrointestinal bleeding Transient hypotension Acute diverticulitis Bright red blood per rectum Chief Complaint Admit Date Repeated Falls April 07, 2024 1 :00pm Pacer Check Remote April 26, 2024 8:33pm S/O April 28, 2024 9:24am PT WANTS LAB RESULTS FAXED TO DR CABRERA May 03, 2024 12:18pm NEED ORDER May 17, 2024 1 0:25am S/O June 02, 2024 1 0:01am 6 M FU June 02, 2024 1 0:21am AFIB June 17, 2024 12:50pm S/O June 17, 2024 1:45pm S/O July 29, 2024 1:1 9pm RECALL LETTER/RECTAL BLEEDING July 7:50am Reason for Visit Admit Date S/P MVR (mitral valve replacement) Alexy ry 2024 10:21am Atrial fibrillation June 02, 2024 1 0:21am Presence of permanent cardiac pacemaker June 02, 2024 10:21am Hx of atrioventricular node ablation Torres uary 2024 10:21am Hyperlipidemia June 02, 2024 1 0:21am Bright red blood per rectum August 01, 2024 7:50am History of adenomatous polyp of colon [facility] 2024 7:50am History of melena August 01, 2024 7:5 0am Chief Complaint Admit Date NEED ORDER May 17, 2024 1 0:25am S/O June 02, 2024 1 0:01am 6 M FU June 02, 2024 1 0:21am AFIB June 17, 2024 12:50pm S/O June 17, 2024 1:45pm Pacer Check Remote July 25, 2024 10: 11pm S/O July 29, 2024 1:1 9pm RECALL LETTER/RECTAL BLEEDING July 7:50am S/O August 25, 2024 3:3 3pm Chief Complaint Admit Date Pacer Check Remote July 25, 2024 10: 11pm S/O July 29, 2024 1:1 9pm RECALL LETTER/RECTAL BLEEDING July 7:50am S/O August 25, 2024 3:3 3pm S/O October 07, 2024 12:13 pm Pacer Check Remote October 25, 2024 5:09 am Reason for Visit Admit Date Bright red blood per rectum August 01, 2024 7:50am History of adenomatous polyp of colon [facility] 2024 7:50am History of melena August 01, 2024 7:5 0am Chief Complaint Admit Date S/O August 25, 2024 3:3 3pm S/O October 07, 2024 12:13 pm Pacer Check Remote October 25, 2024 5:09 am S/O November 09, 2024 12:39 pm ANNUAL IN CLINIC CHECK / 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 @ 11:15 Nov 10:22am 1 y fu / JAH @ 10:30 December 01, 2024 10: 27am Chief Complaint Admit Date S/O August 25, 2024 3:3 3pm S/O October 07, 2024 12:13 pm Pacer Check Remote October 25, 2024 5:09 am ANNUAL IN CLINIC CHECK / MOLD DESIGNER @ 11:15 Nov 10:22am 1 y fu / JAH @ 10:30 December 01, 2024 10: 27am S/O December 01, 2024 11:5 3am Reason for Visit Admit Date Atrial fibrillation December 01, 2024 10:2 2am Presence of permanent cardiac pacemaker December 01, 2024 10:22am S/P MVR (mitral valve replacement) December 01, 2024 10:27am Atrial fibrillation December 01, 2024 10:2 7am Presence of permanent cardiac pacemaker December 01, 2024 10:27am Hx of atrioventricular node ablation Nov 10:27am Hyperlipidemia December 01, 2024 10:2 7am Chief Complaint Admit Date S/O August 25, 2024 3:3 3pm S/O October 07, 2024 12:13 pm Pacer Check Remote October 25, 2024 5:09 am Pacer Check Remote December 01, 2024 9:00 am ANNUAL IN CLINIC CHECK / MOLD DESIGNER @ 11:15 Nov 10:22am 1 y fu / JAH @ 10:30 December 01, 2024 10: 27am S/O December 01, 2024 11:5 3am Chief Complaint Admit Date S/O October 07, 2024 12:13 pm Pacer Check Remote October 25, 2024 5:09 am Pacer Check Remote December 01, 2024 9:00 am ANNUAL IN CLINIC CHECK / 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 @ 11:15 Nov 10:22am 1 y fu / JAH @ 10:30 December 01, 2024 10: 27am S/O December 01, 2024 11:5 3am S/O December 23, 2024 2: 20pm Chief Complaint Admit Date S/O October 07, 2024 12:13 pm Pacer Check Remote October 25, 2024 5:09 am Pacer Check Remote December 01, 2024 9:00 am ANNUAL IN CLINIC CHECK / MOLD DESIGNER @ 11:15 Nov 10:22am 1 y fu / JAH @ 10:30 December 01, 2024 10: 27am S/O December 01, 2024 11:5 3am S/O December 23, 2024 2: 20pm S/O January 18, 2025 10:18am Pacer Check Remote January 24, 2025 5:52am Health Concerns Infection Onset Date Last Indicated Resolved Time COVID-19 Rule-Out 08/05/2021 08/05/2021 Infection Onset Date Last Indicated Resolved Time COVID-19 Rule-Out 08/05/2021 08/05/2021 08/05/2021 9:36 PM EDT Reason for Referral Specialty Diagnoses / Procedures Referred By Barbara santiago Referred To Contact Diagnoses Atrial fibrillation, chronic (HCC) Procedures CONSULT TO [facility] Jean-Pierre Perez MD [address] [place] [address] Referral ID Status Reason Start Date Expiration Date Visits Requested Visits Authorized [id number] Ref Not Required PCP Requested Referral 10/29/2021 01/27/2022 1 1 Additional Source Comments INFORMATION SOURCE (unrecogn ized section and content) DATE CREATED AUTHOR 11/05/2017 [facility] DATE CREATED AUTHOR AUTHOR'S ORGANIZ ATION 09/16/2020 [facility] DATE CREATED AUTHOR AUTHOR'S ORGANIZ ATION 08/06/[address] [facility] DATE CREATED AUTHOR AUTHOR'S ORGANIZ ATION 11/01/2021 [facility] DATE CREATED AUTHOR AUTHOR'S ORGANIZ ATION 06/11/2022 [facility] DATE CREATED AUTHOR AUTHOR'S ORGANIZ ATION 05/07/2023 [facility] DATE CREATED AUTHOR AUTHOR'S ORGANIZ ATION 10/26/2023 [facility] DATE CREATED AUTHOR AUTHOR'S ORGANIZ ATION 03/14/2025 [facility] Goals (unrecognized section and content) Goals may be documented in a n alternate sectionGoals may be documented in an alternate sectionGoals may be documented in an alternate sectionGoals may be documented in an alternate sectionGoals may be documented in an alternate sectionGoals may be documented in an alternate sectionGoals may be documented in an alternate sectionGoals may be documented in an alternate sectionGoals may be documented in an alternate sectionGoals may be documented in an alternate sectionGoals may be documented in an alternate sectionGoals may be documented in an alternate sectionGoals may be documented in an alternate sectionGoals may be documented in an alternate sectionGoals may be documented in an alternate sectionGoals may be documented in an alternate sectionGoals may be documented in an alternate sectionGoals may be documented in an alternate sectionGoals may be documented in an alternate sectionGoals may be documented in an alternate sectionGoals may be documented in an alternate sectionGoals may be documented in an alternate sectionGoals may be documented in an alternate sectionGoals may be documented in an alternate sectionGoals may be documented in an alternate sectionGoals may be documented in an alternate sectionGoals may be documented in an alternate sectionGoals may be documented in an alternate section Source Comments (unrecognize d section and content) In the event this informatio n is protected by the Federal Confidentiality of Alcohol and Drug Abuse Patient Records regulations: The Federal rules restrict any use of the information to criminally investigate or prosecute any alcohol or drug abuse patient.[facility] the event this information is protected by the Federal Confidentiality of Alcohol and Drug Abuse Patient Records regulations: The Federal rules restrict any use of the information to criminally investigate or prosecute any alcohol or drug abuse patient.[facility] the event this information is protected by the Federal Confidentiality of Alcohol and Drug Abuse Patient Records regulations: The Federal rules restrict any use of the information to criminally investigate or prosecute any alcohol or drug abuse patient.[facility] the event this information is protected by the Federal Confidentiality of Alcohol and Drug Abuse Patient Records regulations: The Federal rules restrict any use of the information to criminally investigate or prosecute any alcohol or drug abuse patient.[facility] the event this information is protected by the Federal Confidentiality of Alcohol and Drug Abuse Patient Records regulations: The Federal rules restrict any use of the information to criminally investigate or prosecute any alcohol or drug abuse patient.[facility] Reason for Visit (unrecogniz ed section and content) Reason Comments Exposure covid x 5 days Reason Comments Coumadin/INR Reason Comments Results inr Reason Comments Orders Reason Comments New Patient Possible spinal frac ture Specialty Diagnoses / Procedures Referred By Contac t Referred To Contact Neurosurgery Diagnoses Abnormal findings on diagnostic imaging of other parts of musculoskeletal system Procedures Evaluate and treat Saroj Vallecillo MD [address] [place] [address] Cameron Coyle MD [address] [place] [address] Referral ID Status Reason Start Date Expiration Date Visits Re quested Visits Authorized [id number] Closed 05/15/2022 11/11/2022 1 1 Care Teams (unrecognized sec tion and content) Processor Inspector Relationship Specialty Start Date End Date Saroj Avelar MD [address] [place] [address] PCP - General Internal Medicine 07/11/15 Jean-Pierre Perez MD [address] [address] Cardiology 04/30/18 Processor Inspector Relationship Specialty Start Date End Date Di Saroj Hills MD [address] [place] [address] PCP - General Internal Medicine 07/11/15 Jean-Pierre Perez MD [address] [address] Cardiology 04/30/18 Processor Inspector Relationship Specialty Start Date End Date Saroj Avelar MD [address] [place] [address] PCP - General Internal Medicine 07/11/15 Jean-Pierre Perez MD [address] [address] Cardiology 04/30/18 Processor Inspector Relationship Specialty Start Date End Date Saroj Avelar MD [address] [place] [address] PCP - General Internal Medicine 07/11/15 Jean-Pierre Perez MD [address] [place] [address] Cardiology 04/30/18 Processor Inspector Relationship Specialty Start Date End Date Saroj Avelar MD [address] [facility] [place] [address] PCP - General Internal Medicine 07/11/15 Jean-Pierre Perez MD [address] [place] [address] Cardiology 04/30/18 Team Status: Active Member Role Status Apolinar VALLECILLO Family Provider Active Saroj Vallecillo Primary Care Provider Active Team Status: Inactive Member Role Status Dates Hermelinda Primary Care Physician Referring Provider Active Speedy Bacon MEDICINE ASSISTANT, MEDICINE ASSISTANT-C Attending Provider Active Team Status: Inactive Member Role Status Apolinar Hong Attending Provider Active Ruth Ann Kyle Primary Care Provider Active Team Status: Active Member Role Status Dates Dr. Polo Falk MD Attending Provider Active Team Status: Inactive Member Role Status RUTH ANN Fiore Family Provider Active Dr. Polo Falk MD Attending Provider, Referring Provider Active RUTH ANN KYLE Primary Care Provider Active Team Status: Inactive Member Role Status RUTH ANN Whittaker Primary Care Provide r, Attending Provider, Referring Provider Active Team Status: Inactive Member Role Status RUTH ANN Whittaker Primary Care Provider, Attending Prov ider Active Team Status: Active Member Role Status Ruth Ann Whittaker Primary Care Provide r, Attending Provider, Referring Provider Active Team Status: Inactive Member Role Status RUTH ANN Fiore Family Provider Active Dr. Polo Falk MD Attending Provider, Referring Provider Active Team Status: Inactive Member Role Status Ruth Ann Whittaker Primary Care Provider Active Dr. John Mello MD Attending Provider, Referring Provider Active Team Status: Inactive Member Role Status RUTH ANN Fiore Family Provider Active Dr. Polo Falk MD Attending Provider, Referring Provider Active Ruth Ann Kyle Primary Care Provider Active Team Status: Active Member Role Status Apolinar LOREE VALLECILLO Family Provider Active Team Status: Inactive Member Role Status Ruth Ann Kyle Primary Care Provider Active Dr. Polo Falk MD Attending Provider Active Team Status: Inactive Member Role Status Dates Ruth Ann Kyle Primary Care Provider, Referring Prov ider Active JORGE KYLE Attending Provider Active Team Status: Active Member Role Status RUTH ANN ARMENDARIZ Family Provider Active Dr. Polo Falk MD Attending Provider, Referring Provider Active Ruth Ann Kyle Primary Care Provider Active Team Status: Active Member Role Status Dates LOREE VALLECILLO Family Provider Active SAROJ VALLECILLO Primary Care Provider Active Team Status: Active Member Role Status LOREE VALLECILLO Family Provider Active Dr. Denise Vallecillo MD Primary Care Provider Active Team Status: Inactive Member Role Status Karla Hong Attending Provider Active Team Status: Inactive Member Role Status Speedy Bacon MEDICINE ASSISTANT, MEDICINE ASSISTANT-C Attending Provider Active RUTH ANN KYLE Primary Care Provider, Referring Prov ider Active Team Status: Active Member Role Status Dates Dr. Real Gibson MD Attending Provider Active Team Status: Inactive Member Role Status RUTH ANN ARMENDARIZ Family Provider Active Dr. Polo Falk MD Other Provider Active Dr. Denise Vallecillo MD Primary Care Provider Active Dr. Real Gibson MD Attending Provider, Referring Pro vider Active Team Status: Active Member Role Status RUTH ANN KYLE Primary Care Provide r, Attending Provider, Referring Provider Active Team Status: Active Member Role Status RUTH ANN Fiore Family Provider Active Dr. Denise Vallecillo MD Primary Care Provider Active Dr. Real Gibson MD Attending Provider, Referring Pro vider Active Team Status: Active Member Role Status Dates Dr. Denise Vallecillo MD Primary Care Provider Active RUTH ANN KYLE Attending Provider, Referring Provide r Active Team Status: Inactive Member Role Status Dates Dr. Denise Vallecillo MD Primary Care Provider Active RUTH ANN KYLE Attending Provider, Referring Provide r Active Team Status: Inactive Member Role Status RUTH ANN Fiore Family Provider Active Dr. Denise Vallecillo MD Primary Care Provider Active Dr. Real Gibson MD Attending Provider, Referring Pro vider Active Team Status: Inactive Member Role Status Dates Karla Hong Active Dr. Real Gibson MD Attending Provider Active Team Status: Inactive Member Role Status Speedy Bacon MEDICINE ASSISTANT, MEDICINE ASSISTANT-C Attending Provider Active Dr. Denise Vallecillo MD Primary Care Provider, Referri ng Provider Active Team Status: Inactive Member Role Status Dates Dr. Denise Vallecillo MD Primary Care Provider Active Dr. Real Gibson MD Attending Provider Active Team Status: Active Member Role Status Dates Dr. Denise Vallecillo MD Primary Care Provider Active Dr. Reyna Sanders DO Emergency Provider Active Dr. Piter Perdomo DO Admit Provider, Attending Pro vider Active Team Status: Active Member Role Status Dates Dr. Denise Vallecillo MD Primary Care Provider Active Dr. Reyna Sanders DO Emergency Provider Active Dr. Piter Perdomo DO Admit Provider, Attending Provider, Other Provider Active Team Status: Active Member Role Status Dates Dr. Denise Vallecillo MD Primary Care Provider Active Dr. Reyna Sanders DO Emergency Provider Active Dr. Piter Perdomo DO Admit Provider, Other Provide r Active Dr. Jaciel Sesay DO Attending Provider, Other Provid er Active Team Status: Inactive Member Role Status Dates Dr. Reyna Sanders DO Emergency Provider Active Dr. Piter Perdomo DO Admit Provider, Other Provide r Active Dr. Jaciel Sesay DO Attending Provider Active RUTH ANN KYLE Primary Care Provider Active Team Status: Inactive Member Role Status Dates RUTH ANN KYLE Primary Care Provider Active Samantha Anglin MD Attending Provider Active Team Status: Active Member Role Status Dates LOREE VALLECILLO Family Provider Active Samantha Anglin MD Primary Care Provider Active Team Status: Inactive Member Role Status Dates Dr. Avtar Desir MD Attending Provider Active Samantha Anglin MD Primary Care Provider, Referring Prov ider Active Team Status: Inactive Member Role Status Apolinar Anglin MD Primary Care Provider Active Dr. Real Gibson MD Attending Provider Active Team Status: Inactive Member Role Status RUTH ANN Fiore Family Provider Active Dr. Real Gibson MD Attending Provider, Referring Pro vider Active Samantha Anglin MD Primary Care Provider Active Team Status: Active Member Role Status Apolinar Anglin MD Primary Care Provider, Referring Prov ider Active Dr. Avtar Desir MD Attending Provider, Other Provi aleisha Active Team Status: Inactive Member Role Status Dates Samantha Anglin MD Primary Care Provider, Referring Prov ider Active Dr. Avtar Desir MD Attending Provider Active Processor Inspector Relationship Specialty Start Date End Date Saroj Vallecillo MD [address] [facility] [place] [address] PCP - General 10/28/17 Team Status: Inactive Member Role Status Dates Samantha Anglin MD Primary Care Provider Active St art: April 07, 2024 End: April 07, 2024 Samantha Anglin MD Attending Provider Active Start : April 07, 2024 End: April 07, 2024 Samantha Anglin MD Referring Provider Active Start : April 07, 2024 End: April 07, 2024 Team Status: Inactive Member Role Status Apolinar Anglin MD Primary Care Provider Active St art: April 26, 2024 End: April 26, 2024 Dr. Real Gibson MD Attending Provider Active S tart: April 26, 2024 End: April 26, 2024 Team Status: Inactive Member Role Status Dates RUTH ANN ARMENDARIZ Family Provider Active Start: April 28, 2024 End: April 28, 2024 Dr. Real Gibson MD Attending Provider Active S tart: April 28, 2024 End: April 28, 2024 Dr. Real Gibson MD Referring Provider Active S tart: April 28, 2024 End: April 28, 2024 Samantha Anglin MD Primary Care Provider Active St art: April 28, 2024 End: April 28, 2024 SHELLY CABRERA MD Other Provider Active Start: April 28, 2024 End: April 28, 2024 Team Status: Inactive Member Role Status Apolinar Anglin MD Primary Care Provider Active St art: May 03, 2024 End: May 03, 2024 Samantha Anglin MD Attending Provider Active Start : May 03, 2024 End: May 03, 2024 Samantha Anglin MD Referring Provider Active Start : May 03, 2024 End: May 03, 2024 SHELLY CABRERA MD Other Provider Active Start: May 03, 2024 End: May 03, 2024 Team Status: Inactive Member Role Status Apolinar Anglin MD Primary Care Provider Active St art: May 17, 2024 End: May 17, 2024 SHELLY CABRERA MD Attending Provider Active St art: May 17, 2024 End: May 17, 2024 SHELLY CABRERA MD Referring Provider Active St art: May 17, 2024 End: May 17, 2024 Team Status: Inactive Member Role Status RUTH ANN Fiore Family Provider Active Start: June 02, 2024 End: June 02, 2024 Dr. Real Gibson MD Attending Provider Active S tart: June 02, 2024 End: June 02, 2024 Dr. Real Gibson MD Referring Provider Active S tart: June 02, 2024 End: June 02, 2024 Samantha Anglin MD Primary Care Provider Active St art: June 02, 2024 End: June 02, 2024 SHELLY CABRERA MD Other Provider Active Start: June 02, 2024 End: June 02, 2024 Team Status: Inactive Member Role Status Apolinar Anglin MD Primary Care Provider Active St art: June 02, 2024 End: June 02, 2024 Samantha Anglin MD Referring Provider Active Start : June 02, 2024 End: June 02, 2024 Speedy Bacon MEDICINE ASSISTANT, MEDICINE ASSISTANT-C Attending Provider Active S tart: June 02, 2024 End: June 02, 2024 Team Status: Inactive Member Role Status Apolinar Anglin MD Primary Care Provider Active St art: June 17, 2024 End: June 17, 2024 Speedy Bacon MEDICINE ASSISTANT, MEDICINE ASSISTANT-C Attending Provider Active S tart: June 17, 2024 End: June 17, 2024 Speedy Bacon MEDICINE ASSISTANT, MEDICINE ASSISTANT-C Referring Provider Active S tart: June 17, 2024 End: June 17, 2024 Team Status: Active Member Role Status Apolinar Anglin MD Primary Care Provider Active St art: June 17, 2024 Dr. Real Gibson MD Attending Provider Active S tart: June 17, 2024 Team Status: Inactive Member Role Status RUTH ANN Fiore Family Provider Active Start: June 17, 2024 End: July 01, 2024 Dr. Real Gibson MD Attending Provider Active S tart: June 17, 2024 End: July 01, 2024 Dr. Real Gibson MD Referring Provider Active S tart: June 17, 2024 End: July 01, 2024 Samantha Anglin MD Primary Care Provider Active St art: June 17, 2024 End: July 01, 2024 SHELLY CABRERA MD Other Provider Active Start: June 17, 2024 End: July 01, 2024 Team Status: Inactive Member Role Status Dates RUTH ANN ARMENDARIZ Family Provider Active Start: July 29, 2024 End: July 29, 2024 Dr. Real Gibson MD Attending Provider Active S tart: July 29, 2024 End: July 29, 2024 Dr. Real Gibson MD Referring Provider Active S tart: July 29, 2024 End: July 29, 2024 Samantha Anglin MD Primary Care Provider Active St art: July 29, 2024 End: July 29, 2024 SHELLY CABRERA MD Other Provider Active Start: July 29, 2024 End: July 29, 2024 Team Status: Inactive Member Role Status Apolinar Anglin MD Primary Care Provider Active St art: August 01, 2024 End: August 01, 2024 Samantha Anglin MD Referring Provider Active Start : August 01, 2024 End: August 01, 2024 Dr. Avtar Desir MD Attending Provider Active Start: August 01, 2024 End: August 01, 2024 Team Status: Active Member Role Status Apolinar Anglin MD Primary Care Provider Active Team Status: Inactive Member Role Status Apolinar Anglin MD Primary Care Provider Active St art: July 25, 2024 End: July 25, 2024 Dr. Real Gibson MD Attending Provider Active S tart: July 25, 2024 End: July 25, 2024 Team Status: Inactive Member Role Status RUTH ANN Fiore Family Provider Active Start: August 25, 2024 End: August 31, 2024 Dr. Real Gibson MD Attending Provider Active S tart: August 25, 2024 End: August 31, 2024 Dr. Real Gibson MD Referring Provider Active S tart: August 25, 2024 End: August 31, 2024 Samantha Anglin MD Primary Care Provider Active St art: August 25, 2024 End: August 31, 2024 SHELLY CABRERA MD Other Provider Active Start: August 25, 2024 End: August 31, 2024 Dr. Pacheco Rodriguez MD Other Provider Active Start: August 25, 2024 End: August 31, 2024 Team Status: Inactive Member Role Status Apolinar Anglin MD Primary Care Provider Active St art: September 14, 2024 End: September 14, 2024 Samantha Anglin MD Referring Provider Active Start : September 14, 2024 End: September 14, 2024 Dr. Avtar Desir MD Attending Provider Active Start: September 14, 2024 End: September 14, 2024 Team Status: Active Member Role Status Apolinar Anglin MD Primary Care Provider Active St art: September 14, 2024 Samantha Anglin MD Referring Provider Active Start : September 14, 2024 Dr. Avtar Desir MD Attending Provider Active Start: September 14, 2024 Dr. Avtar Desir MD Other Provider Active Sta rt: September 14, 2024 Team Status: Active Member Role Status Apolinar Anglin MD Primary Care Provider Active St art: September 14, 2024 Dr. Avtar Desir MD Attending Provider Active Start: September 14, 2024 Team Status: Active Member Role/Relationship Status Apolinar VALLECILLO Family Provider Active Samantha Anglin MD Primary Care Provider Active Team Status: Inactive Member Role/Relationship Status Apolinar Anglin MD Primary Care Provider Active St art: July 25, 2024 End: July 25, 2024 Dr. Real Gibson MD Attending Provider Active S tart: July 25, 2024 End: July 25, 2024 Team Status: Inactive Member Role/Relationship Status RUTH ANN Fiore Family Provider Active Start: July 29, 2024 End: July 29, 2024 Dr. Real Gibson MD Attending Provider Active S tart: July 29, 2024 End: July 29, 2024 Dr. Real Gibson MD Referring Provider Active S tart: July 29, 2024 End: July 29, 2024 Samantha Anglin MD Primary Care Provider Active St art: July 29, 2024 End: July 29, 2024 SHELLY CABRERA MD Other Provider Active Start: July 29, 2024 End: July 29, 2024 Team Status: Inactive Member Role/Relationship Status Dates Samantha Anglin MD Primary Care Provider Active St art: August 01, 2024 End: August 01, 2024 Samantha Anglin MD Referring Provider Active Start : August 01, 2024 End: August 01, 2024 Dr. Avtar Desir MD Attending Provider Active Start: August 01, 2024 End: August 01, 2024 Team Status: Inactive Member Role/Relationship Status Dates LOREERUTH ANN Family Provider Active Start: August 25, 2024 End: August 31, 2024 Dr. Real Gibson MD Attending Provider Active S tart: August 25, 2024 End: August 31, 2024 Dr. Real Gibson MD Referring Provider Active S tart: August 25, 2024 End: August 31, 2024 Samantha Anglin MD Primary Care Provider Active St art: August 25, 2024 End: August 31, 2024 SHELLY CABRERA MD Other Provider Active Start: August 25, 2024 End: August 31, 2024 Dr. Pacheco Rodriguez MD Other Provider Active Start: August 25, 2024 End: August 31, 2024 Team Status: Inactive Member Role/Relationship Status Dates Samantha Anglin MD Primary Care Provider Active St art: September 14, 2024 End: September 14, 2024 Samantha Anglin MD Referring Provider Active Start : September 14, 2024 End: September 14, 2024 Dr. Avtar Desir MD Attending Provider Active Start: September 14, 2024 End: September 14, 2024 Team Status: Active Member Role/Relationship Status Apolinar Anglin MD Primary Care Provider Active St art: September 14, 2024 Samantha Anglin MD Referring Provider Active Start : September 14, 2024 Dr. Avtar Desir MD Attending Provider Active Start: September 14, 2024 Dr. Avtar Desir MD Other Provider Active Sta rt: September 14, 2024 Team Status: Active Member Role/Relationship Status Dates Samantha Anglin MD Primary Care Provider Active St art: September 14, 2024 Dr. Avtar Desir MD Attending Provider Active Start: September 14, 2024 Team Status: Active Member Role/Relationship Status Dates BECKY ARMENDARIZ Family Provider Active Start: October 07, 2024 Dr. Real Gibson MD Attending Provider Active S tart: October 07, 2024 Dr. Real Gibson MD Referring Provider Active S tart: October 07, 2024 Samantha Anglin MD Primary Care Provider Active St art: October 07, 2024 SHELLY CABRERA MD Other Provider Active Start: October 07, 2024 Dr. Pacheco Rodriguez MD Other Provider Active Start: October 07, 2024 Team Status: Inactive Member Role/Relationship Status Dates Samantha Anglin MD Primary Care Provider Active St art: October 25, 2024 End: October 25, 2024 Dr. Real Gibson MD Attending Provider Active S tart: October 25, 2024 End: October 25, 2024 Team Status: Inactive Member Role/Relationship Status Dates RUTH ANN ARMENDARIZ [facility] Provider Active Start: October 07, 2024 End: October 07, 2024 Dr. Real Gibson MD Attending Provider Active S tart: October 07, 2024 End: October 07, 2024 Dr. Real Gibson MD Referring Provider Active S tart: October 07, 2024 End: October 07, 2024 Samantha Anglin MD Primary Care Provider Active St art: October 07, 2024 End: October 07, 2024 SHELLY CABRERA MD Other Provider Active Start: October 07, 2024 End: October 07, 2024 Dr. Pacheco Rodriguez MD Other Provider Active Start: October 07, 2024 End: October 07, 2024 Team Status: Active Member Role/Relationship Status Dates Samantha Anglin MD Primary Care Provider Active Team Status: Inactive Member Role/Relationship Status Dates RUTH ANN ARMENDARIZ Family Provider Active Start: August 25, 2024 End: August 31, 2024 Dr. Real Gibson MD Attending Provider Active S tart: August 25, 2024 End: August 31, 2024 Dr. Real Gibson MD Referring Provider Active S tart: August 25, 2024 End: August 31, 2024 Samantha Anglin MD Primary Care Provider Active St art: August 25, 2024 End: August 31, 2024 SHELLY CABRERA MD Other Provider Active Start: August 25, 2024 End: August 31, 2024 Dr. Pacheco Rodriguez MD Other Provider Active Start: August 25, 2024 End: August 31, 2024 Team Status: Inactive Member Role/Relationship Status Dates Samantha Anglin MD Primary Care Provider Active St art: September 14, 2024 End: September 14, 2024 Samantha Anglin MD Referring Provider Active Start : September 14, 2024 End: September 14, 2024 Dr. Avtar Desir MD Attending Provider Active Start: September 14, 2024 End: September 14, 2024 Team Status: Active Member Role/Relationship Status Dates Samantha Anglin MD Primary Care Provider Active St art: September 14, 2024 Samantha Anglin MD Referring Provider Active Start : September 14, 2024 Dr. Avtar Desir MD Attending Provider Active Start: September 14, 2024 Dr. Avtar Desir MD Other Provider Active Sta rt: September 14, 2024 Team Status: Active Member Role/Relationship Status Dates Samantha Anglin MD Primary Care Provider Active St art: September 14, 2024 Dr. Avtar Desir MD Attending Provider Active Start: September 14, 2024 Team Status: Inactive Member Role/[facility]hip Status [facility] Active Start: October 07, 2024 End: October 07, 2024 Dr. Real Gibson MD Attending Provider Active S tart: October 07, 2024 End: October 07, 2024 Dr. Real Gibson MD Referring Provider Active S tart: October 07, 2024 End: October 07, 2024 Samantha Anglin MD Primary Care Provider Active St art: October 07, 2024 End: October 07, 2024 SHELLY CABRERA MD Other Provider Active Start: October 07, 2024 End: October 07, 2024 Dr. Pacheco Rodriguez MD Other Provider Active Start: October 07, 2024 End: October 07, 2024 Team Status: Inactive Member Role/Relationship Status Dates Samantha Anglin MD Primary Care Provider Active St art: October 25, 2024 End: October 25, 2024 Dr. Real Gibson MD Attending Provider Active S tart: October 25, 2024 End: October 25, 2024 Team Status: Active Member Role/Relationship Status Dates RUTH ANN ARMENDARIZ Family Provider Active Start: November 09, 2024 Dr. Real Gibson MD Attending Provider Active S tart: November 09, 2024 Dr. Real Gibson MD Referring Provider Active S tart: November 09, 2024 Samantha Anglin MD Primary Care Provider Active St art: November 09, 2024 SHELLY CABRERA MD Other Provider Active Start: November 09, 2024 Dr. Pacheco Rodriguez MD Other Provider Active Start: November 09, 2024 Team Status: Active Member Role/Relationship Status Dates Samantha Anglin MD Primary Care Provider Active St art: December 01, 2024 Samantha Anglin MD Referring Provider Active Start : December 01, 2024 Karla Hong Attending Provider Active Start: 2024 Team Status: Inactive Member Role/Relationship Status Dates Samantha Anglin MD Primary Care Provider Active St art: December 01, 2024 End: December 01, 2024 Samantha Anglin MD Referring Provider Active Start : December 01, 2024 End: December 01, 2024 Dr. Real Gibsno MD Attending Provider Active S tart: December 01, 2024 End: December 01, 2024 Team Status: Active Member Role/Relationship Status Dates Samantha Anglin MD Primary Care Provider Active St art: December 01, 2024 Samantha Anglin MD Referring Provider Active Start : December 01, 2024 Karla Hong Attending Provider Active Start: 2024 Team Status: Inactive Member Role/Relationship Status Dates Samantha Anglin MD Primary Care Provider Active St art: December 01, 2024 End: December 01, 2024 Samantha Anglin MD Referring Provider Active Start : December 01, 2024 End: December 01, 2024 Dr. Real Gibson MD Attending Provider Active S tart: December 01, 2024 End: December 01, 2024 Team Status: Inactive Member Role/Relationship Status Dates RUTH ANN ARMENDARIZ Family Provider Active Start: December 01, 2024 End: December 01, 2024 Dr. Real Gibson MD Attending Provider Active S tart: December 01, 2024 End: December 01, 2024 Dr. Real Gibson MD Referring Provider Active S tart: December 01, 2024 End: December 01, 2024 Samantha Anglin MD Primary Care Provider Active St art: December 01, 2024 End: December 01, 2024 SHELLY CABRERA MD Other Provider Active Start: December 01, 2024 End: December 01, 2024 Dr. Pacheco Rodriguez MD Other Provider Active Start: December 01, 2024 End: December 01, 2024 Team Status: Inactive Member Role/Relationship Status Apolinar Anglin MD Primary Care Provider Active St art: December 01, 2024 End: December 01, 2024 Samantha Anglin MD Referring Provider Active Start : December 01, 2024 End: December 01, 2024 Karla Hong Attending Provider Active Start: [facility]2024 End: December 01, 2024 Team Status: Inactive Member Role/Relationship Status Apolinar Anglin MD Primary Care Provider Active St art: December 01, 2024 End: December 01, 2024 Dr. Real Gibson MD Attending Provider Active S tart: December 01, 2024 End: December 01, 2024 Team Status: Inactive Member Role/Relationship Status Dates LOREE, DILAU Family Provider Active Start: December 01, 2024 End: December 01, 2024 Dr. Real Gibson MD Attending Provider Active S tart: December 01, 2024 End: December 01, 2024 Dr. Real Gibson MD Referring Provider Active S tart: December 01, 2024 End: December 01, 2024 Samantha Anglin MD Primary Care Provider Active St art: December 01, 2024 End: December 01, 2024 SHELLY CABRERA MD Other Provider Active Start: December 01, 2024 End: December 01, 2024 Dr. Pacheco Rodriguez MD Other Provider Active Start: December 01, 2024 End: December 01, 2024 Team Status: Inactive Member Role/Relationship Status Apolinar Anglin , MD Primary Care Provider Active St art: September 14, 2024 End: September 14, 2024 Samantha Anglin MD Referring Provider Active Start : September 14, 2024 End: September 14, 2024 Dr. Avtar Desir MD Attending Provider Active Start: September 14, 2024 End: September 14, 2024 Team Status: Active Member Role/Relationship Status Dates Samantha Anglin MD Primary Care Provider Active St art: September 14, 2024 Samantha Anglin MD Referring Provider Active Start : September 14, 2024 Dr. Avtar Desir MD Attending Provider Active Start: September 14, 2024 Dr. Avtar Desir MD Other Provider Active Sta rt: September 14, 2024 Team Status: Active Member Role/Relationship Status Dates Samantha Anglin MD Primary Care Provider Active St art: September 14, 2024 Dr. Avtar Desir MD Attending Provider Active Start: September 14, 2024 Team Status: Inactive Member Role/Relationship Status Dates RUTH ANN ARMENDARIZ Family Provider Active Start: October 07, 2024 End: October 07, 2024 Dr. Real Gibson MD Attending Provider Active S tart: October 07, 2024 End: October 07, 2024 Dr. Real Gibson MD Referring Provider Active S tart: October 07, 2024 End: October 07, 2024 Samantha Anglin MD Primary Care Provider Active St art: October 07, 2024 End: October 07, 2024 SHELLY CABRERA MD Other Provider Active Start: October 07, 2024 End: October 07, 2024 Dr. Pacheco Rodriguez MD Other Provider Active Start: October 07, 2024 End: October 07, 2024 Team Status: Inactive Member Role/Relationship Status Dates Samantha Anglin MD Primary Care Provider Active St art: October 25, 2024 End: October 25, 2024 Dr. Real Gibson MD Attending Provider Active S tart: October 25, 2024 End: October 25, 2024 Team Status: Inactive Member Role/Relationship Status Dates Samantha Anglin MD Primary Care Provider Active St art: December 01, 2024 End: December 01, 2024 Dr. Real Gibson MD Attending Provider Active S tart: December 01, 2024 End: December 01, 2024 Team Status: Inactive Member Role/Relationship Status Dates Samantha Anglin MD Primary Care Provider Active St art: December 01, 2024 End: December 01, 2024 Samantha Anglin MD Referring Provider Active Start : December 01, 2024 End: December 01, 2024 Dr. Real Gibson MD Attending Provider Active S tart: December 01, 2024 End: December 01, 2024 Team Status: Inactive Member Role/Relationship Status Dates RUTH ANN ARMENDARIZ Family Provider Active Start: December 23, 2024 End: December 23, 2024 Dr. Real Gibson MD Attending Provider Active S tart: December 23, 2024 End: December 23, 2024 Dr. Real Gibson MD Referring Provider Active S tart: December 23, 2024 End: December 23, 2024 Samantha Anglin MD Primary Care Provider Active St art: December 23, 2024 End: December 23, 2024 SHELLY CABRERA MD Other Provider Active Start: December 23, 2024 End: December 23, 2024 Dr. Pacheco Rodriguez MD Other Provider Active Start: December 23, 2024 End: December 23, 2024 Team Status: Active Member Role/Relationship Status Dates LOREE VALLECILLO Primary care physician Active Samantha Anglin MD Primary care physician Active Team Status: Inactive Member Role/Relationship Status Dates RUTH ANN ARMENDARIZ Primary care physician Active Start: October 07, 2024 End: October 07, 2024 Dr. Real Gibson MD Attending physician Active Start: October 07, 2024 End: October 07, 2024 Dr. Real Gibson MD Referring Provider Active S tart: October 07, 2024 End: October 07, 2024 Samantha Anglin MD Primary care physician Active S tart: October 07, 2024 End: October 07, 2024 SHELLY CABRERA MD Nurse Practitioner Active St art: October 07, 2024 End: October 07, 2024 Dr. Pacheco Rodriguez MD Nurse Practitioner Active Start: October 07, 2024 End: October 07, 2024 Team Status: Inactive Member Role/Relationship Status Dates Samantha nAglin MD Primary care physician Active S tart: October 25, 2024 End: October 25, 2024 Dr. Real Gibson MD Attending physician Active Start: October 25, 2024 End: October 25, 2024 Team Status: Inactive Member Role/Relationship Status Dates Samantha Anglin MD Primary care physician Active S tart: December 01, 2024 End: December 01, 2024 Dr. Real Gibson MD Attending physician Active Start: December 01, 2024 End: December 01, 2024 Team Status: Inactive Member Role/Relationship Status Dates Samantha Anglin MD Primary care physician Active S tart: December 01, 2024 End: December 01, 2024 Samantha Anglin MD Referring Provider Active Start : December 01, 2024 End: December 01, 2024 Dr. Real Gibson MD Attending physician Active Start: December 01, 2024 End: December 01, 2024 Team Status: Inactive Member Role/Relationship Status Dates Samantha Anglin MD Primary care physician Active S tart: December 01, 2024 End: December 01, 2024 Samantha Anglin MD Referring Provider Active Start : December 01, 2024 End: December 01, 2024 Dr. Real Gibson MD Attending physician Active Start: December 01, 2024 End: December 01, 2024 Team Status: Inactive Member Role/Relationship Status Dates RUTH ANN ARMENDARIZ Primary care physician Active Start: December 01, 2024 End: December 01, 2024 Dr. Real Gibson MD Attending physician Active Start: December 01, 2024 End: December 01, 2024 Dr. Real Gibson MD Referring Provider Active S tart: December 01, 2024 End: December 01, 2024 Samantha Anglin MD Primary care physician Active S tart: December 01, 2024 End: December 01, 2024 SHELLY CABRERA MD Nurse Practitioner Active St art: December 01, 2024 End: December 01, 2024 Dr. Pacheco Rodriguez MD Nurse Practitioner Active Start: December 01, 2024 End: December 01, 2024 Team Status: Inactive Member Role/Relationship Status Dates RUTH ANN ARMENDARIZ Primary care physician Active Start: December 23, 2024 End: December 23, 2024 Dr. Real Gibson MD Attending physician Active Start: December 23, 2024 End: December 23, 2024 Dr. Real Gibson MD Referring Provider Active S tart: December 23, 2024 End: December 23, 2024 Samantha Anglin MD Primary care physician Active S tart: December 23, 2024 End: December 23, 2024 SHELLY CABRERA MD Nurse Practitioner Active St art: December 23, 2024 End: December 23, 2024 Dr. Pacheco Rodriguez MD Nurse Practitioner Active Start: December 23, 2024 End: December 23, 2024 Team Status: Inactive Member Role/Relationship Status Dates RUTH ANN ARMENDARIZ Primary care physician Active Start: January 18, 2025 End: January 31, 2025 Dr. Real Gibson MD Attending physician Active Start: January 18, 2025 End: January 31, 2025 Dr. Real Gibson MD Referring Provider Active S tart: January 18, 2025 End: January 31, 2025 Samantha Anglin MD Primary care physician Active S tart: January 18, 2025 End: January 31, 2025 SHELLY CABRERA MD Nurse Practitioner Active St art: January 18, 2025 End: January 31, 2025 Dr. Pacheco Rodriguez MD Nurse Practitioner Active Start: January 18, 2025 End: January 31, 2025 Team Status: Active Member Role/Relationship Status Apolinar Anglin MD Primary care physician Active S tart: January 24, 2025 Dr. Real Gibson MD Attending physician Active Start: January 24, 2025 Team Status: Inactive Member Role/Relationship Status Apolinar Anglin MD Primary care physician Active S tart: January 24, 2025 End: January 24, 2025 Dr. Real Gibson MD Attending physician Active Start: January 24, 2025 End: January 24, 2025 FOR RECORDS PERTAINING TO PATIENTS WHO ARE [...] BE BASED ON THE PRIMARY CLINICAL RECORDS. [facility]. provides no warranty or guarantee of the accuracy or completeness of information in this document.
[2025-03-26 14:20] LABS: Prothrombin Time (Protime)PT. 26.5 SECONDS (11.7-14.9)
[2025-03-26 14:32] VITALS: BP 115/60; PULSE 52; RESP 16; TEMP 36.8; O2SAT 96
--- NOTE | 2025-03-26 14:34 | CM.ED ---
Social Work Date of referral: 03/26/25 Reason for referral: No Living Will on file. Referred by: Social Work Identification Patient provided consent to social work visit. Applications System Analyst requested a copy of Living Will which patient agreed to bring in. Heidy Wasserman, INTERMEDIATE TEACHER, LAMINATOR
== END 2025-03-26 14:35 | disposition home or self-care (01) ==
PROVIDERS: Emergency Provider Surgery; PCP Family Medicine; Visit Provider Surgery
DX: Z51.81 Encounter for therapeutic drug level monitoring (principal); I48.91 Unspecified atrial fibrillation; Z95.0 Presence of cardiac pacemaker; Z95.2 Presence of prosthetic heart valve; Z79.01 Long term (current) use of 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s
CPT/HCPCS: 36415; 85610; 99282

== ENCOUNTER → 2025-04-03 | Outpatient (CLI) | payer MEDICARE, SELFPAY ==
--- NOTE | 2025-04-03 15:35 | BI_ITS ---
EXAM: SCRN MAMM (CAD)W/ADINA BILAT DATE: 04/03/2025 CLINICAL HISTORY: F, Age 84 y/o , SCREENING TECHNIQUE: Procedure Code: [id number] Modality: MG Procedure: SCRN MAMM (CAD)W/ADINA BILAT COMPARISON: Prior exam(s) dated 03/21/2024, 12/22/2022, and 02/18/2022. FINDINGS: TISSUE DENSITY: There are scattered areas of fibroglandular density. Bilateral Breast Mammographic Findings: Benign-appearing round and punctate calcifications are seen in both breasts. Benign-appearing secretory type calcifications are seen in both breasts. Stable nodular densities are seen in both breasts. No suspicious masses, suspicious cluster of microcalcifications, architectural distortion or secondary signs of malignancy is identified in either breast. BI/SCRN MAMM (CAD)W/ADINA BILAT IMPRESSION: Benign screening mammogram OVERALL FINAL ASSESSMENT BI-RADS 2: BENIGN RECOMMENDATION: Routine annual follow-up in 1 Year Additional Recommendation none A letter with findings and recommendations will be mailed to the patient. Reading Location: [id number]
--- OUTSIDE RECORDS SUMMARY | 2025-04-03 19:53 | XMS RPT_ITS | CCD ---
Author Organization [facility] Care Team Providers Care Licensed Funeral Director And Embalmer Name Role Phone PROVIDER, UNKNOWN Unavailable Unavailable [...] VALLECILLO Primary Care Provider Unavailab steve Cunha AIR ANALYST, RICOC Brittany Attending Provider SAROJ VALLECILLO Referring Provider Unavailable Saroj Avelar MD Primary Care Provider Ana WARD, Jean-Pierre Beltran Unavailable Alphonse AIR ANALYST, AIR ANALYST-C Brittany Attending Provider Dr. Polo Ruiz Emergency [...] Polo Falk Referring Provider [phone] Alphonse AIR ANALYST, AIR ANALYST-C Brittany Attending Provider Care Physician, No Primary Primary Care Provider Unavailable Care Physician, No Primary Referring Provider Un available Karla Hong Attending Provider Unavailable Alphonse AIR ANALYST, AIR ANALYST-C Brittany Attending Provider Care Physician, No Primary Primary Care Provider Unavailable Care Physician, No Primary Referring Provider Un available Dr. Polo Falk Attending Provider Care Physician, No Primary Primary Care Provider Unavailable Care Physician, No Primary Referring Provider Un available Arleen AIR ANALYST, AIR ANALYST-C Speedy Núñez Attending Provider Karla Hong Attending Provider Unavailable Saroj Vallecillo Primary Care Provider Unavailab Dr. Polo Peace Attending Provider [phone] CAMERON COYLE Attending Unavailable SAROJ VALLECILLO Referring Unavailable SAROJ VALLECILLO Primary Care Unavailable Care Physician, No Primary Referring Provider Un available Roof AIR ANALYST, AIR ANALYST-C Speedy Núñez Attending Provider Dr. Polo Falk Attending Provider [phone] Karla Hong Attending Provider Unavailable Saroj Vallecillo Primary Care Provider Unavailab Saroj Armijo Primary Care Provider Unavailab Dr. Polo Peace Attending Provider Roof AIR ANALYST, AIR ANALYST-Mela Núñez Attending Provider SAROJ VALLECILLO Primary Care Provider Unavailab le SAROJ VALLECILLO Referring Provider Unavailable Karla Hong Attending Provider Unavailable Dr. Real Gibson Attending Provider [phone] Real Gibson Attending Provider [phone] Denise Vallecillo Primary Care Provider Dr. Real Gibson Attending Provider [phone] Roof AIR ANALYST, JENAE-Mela Núñez Attending Provider Dr. Denise Vallecillo Referring Provider RUSS PLUMMER Attending Unavailable RUSS PLUMMER Admitting Unavailable SAROJ VALLECILLO MD [facility] Care Unavailabl e Dr. Denise Vallecillo Primary Care Provider Dr. Real Gibson Attending Provider [phone] Reyna Sanders Emergency Provider Dr. Piter Perdomo Admit Provider Dr. Piter Perdomo Attending Provider Dr. Piter Perdomo Other Provider Dr. Jaciel Sesay Attending Provider Dr. Jaciel Sesay Other Provider Dr. Denise Vallecillo Primary Care Provider Dr. Real Gibson Attending Provider [phone] Roof AIR ANALYST, JENAE-Mela Núñez Attending Provider Dr. Denise Vallecillo [...] Provider SHELLY CABRERA MD Referring Provider Roof AIR ANALYST-C, Speedy Núñez Attending Provider Roof AIR ANALYST-C, Speedy Núñez Referring Provider Dr. Avtar Desir MD Attending Provider Derrek AWRD, Samantha Primary Care Provider LOREE VALLECILLO Family [...] Karla Hong Attending Provider Unavailable Derrek WARD, [facility] Primary Care Provider LOREE VALLECILLO Family Provider Dr. Real Gibson MD Attending Provider Dr. Real Gibson MD Referring Provider SHELLY CABRERA MD Other Provider Dr. Pacheco Rodriguez MD, V Other Provider LOREE VALLECILLO Primary Care Physician Dr. Real Gibson MD Attending Physician Derrek WARD, Samantha Primary Care Physician SHELLY CABRERA MD Nurse Practitioner Dr. Pacheco Rodriguez MD, V Nurse Practitioner [phone] Derrek WARD, Samantha Referring Provider Derrek, Chalon Primary Care Unavailable DEBORAH, SHELLY Attending Unavailable Derrek, Chalon Primary Care Unavailable DEBORAH, SHELLY Attending Unavailable DEBORAH, SHELLY Referring Unavailable Derrek, Chalon Primary Care Unavailable Paige, Real Attending Unavailable Derrek, Chalon Primary Care Unavailable Derrek, Chalon Attending Unavailable Derrek, Chalon Referring Unavailable DEBORAHSHELLY Consulting Unavailable Derrek, Chalon Primary Care Unavailable DEBORAH, SHELLY Consulting Unavailable Paige, Real Attending Unavailable Paige, Real Referring Unavailable DEBORAHSHELLY VALADEZ Consulting Unavailable Paige, Hazen Referring Unavailable Paige, Real Attending Unavailable Derrek, Chalon Primary Care Unavailable Sibilia Pacheco V Consulting Unavailable Derrek, Chalon Referring Unavailable Derrek, Chalon Primary Care Unavailable Avtar Desir Attending Unavailable Derrek, Chalon Primary Care Unavailable Derrek, Chalon Referring Unavailable Roof AIR ANALYST, Speedy Núñez Attending Unavailable Derrek, Chalon Referring Unavailable Derrek, Chalon Primary Care Unavailable Avtar Desir Attending Unavailable Paige, Real Attending Unavailable Derrek, Chalon Primary Care Unavailable Derrek, Chalon Primary Care Unavailable Paige, Hazen Attending Unavailable Derrek, Chalon Primary Care Unavailable SHELLY CABRERA Consulting Unavailable Paige, Hazen Referring Unavailable Paige, Hazen Attending Unavailable Sibilia Pacheco Ellie Consulting Unavailable SHELLY CABRERA Consulting Unavailable Derrek, Chalon Primary Care Unavailable Paige, Real Referring Unavailable Paige, Real Attending Unavailable Sibilia Pacheco V Consulting Unavailable Derrek, Chalon Primary Care Unavailable SHELLY CABRERA Consulting Unavailable Paige, Hazen Attending Unavailable Paige, Real Referring Unavailable Derrek, Chalon Primary Care Unavailable Roof AIR ANALYST, Speedy H Attending Unavailable Roof AIR ANALYST, Speedy H Referring Unavailable Derrek, Chalon Primary Care Unavailable Derrek, Chalon Referring Unavailable Paige, Real Attending Unavailable Derrek, Chalon Primary Care Unavailable Derrek, Chalon Referring Unavailable Paige, Real Attending Unavailable Derrek, Chalon Primary Care Unavailable SHELLY CABRERA Consulting Unavailable Paige, Hazen Referring Unavailable Paige, Real Attending Unavailable Sibilia, Pacheco V Consulting Unavailable Derrek, Chalon Primary Care Unavailable SHELLY CABRERA Consulting Unavailable Paige, Hazen Referring Unavailable Paige, Real Attending Unavailable Derrek, Chalon Referring Unavailable Bortz, Avtar Consulting Unavailable Bortz, Avtar Attending Unavailable Derrek, Chalon Primary Care Unavailable Derrek, Chalon Primary Care Unavailable SHELLY CABRERA Consulting Unavailable Paige, Hazen Attending Unavailable Paige, Hazen Referring Unavailable Derrek, Chalon Primary Care Unavailable Paige, Real Attending Unavailable Derrek, Chalon Primary Care Unavailable Bortz, Avtar Attending Unavailable Derrek, Chalon Primary Care Unavailable Paige, Hazen Attending Unavailable Derrek, Chalon Primary Care Unavailable Paige, Real Attending Unavailable Derrek, Chalon Primary Care Unavailable SHELLY CABRERA Consulting Unavailable Paige, Real Referring Unavailable Paige, Real Attending Unavailable Sibilia, Pacheco V Consulting Unavailable Derrek, Chalon Primary Care Unavailable SHELLY CABRERA Consulting Unavailable Paige, Hazen Referring Unavailable Paige, Hazen Attending Unavailable Sibilia, Pacheco V Consulting Unavailable Derrek, Chalon Primary Care Unavailable Derrek, Chalon Attending Unavailable Derrek, Chalon Referring Unavailable Derrek, Chalon Primary Care Unavailable SHELLY CABRERA Consulting Unavailable Paige, Real Referring Unavailable Paige, Hazen Attending Unavailable Derrek, Chalon Primary Care Unavailable SHELLY CABRERA Consulting Unavailable Paige, Real Attending Unavailable Paige, Real Referring Unavailable Sibilia, Pacheco V Consulting Unavailable Derrek, Chalon Primary Care Unavailable Derrek, Chalon Attending Unavailable Derrek, Chalon Referring Unavailable Derrek, Chalon Primary Care Unavailable Derrek, Chalon Attending Unavailable Derrek, Chalon Referring Unavailable Derrek, Chalon Primary Care Unavailable Sibilia, Pacheco V Attending Unavailable Allergies Allergy Classification Reported Allergen(s) Allergy Type Date of Onset Reaction(s) Facility (20 sources) Sertraline Drug Allergy 0 Other: See Comments [facility] (1 source) Sertraline Drug Allergy 5 [facility] Repository Medications Current Medications Medication Drug Class(es) [...] NERVE PAIN take 1 capsule by mo [facility] in [facility] morning gabapentin (Neurontin) 300 MG [...] mouth in the morning Specialty Vitamins Products (Paco Matrix 5000) tablet Take 1 tablet by [...] 2023 1:00am August 05, 2023 9:24am Biotin-Silicon Yrqj-R-Proomrrn 5,000 mcg-100 mg- 50 mg tab (5 sources) take 1 tablet by mouth once daily Biotin-Silicon Kogz-M-Gpqaqwvo 5,000 mcg-100 mg- 50 mg tab Take 1 tablet by mouth once daily. 0 Active Comment on above: Take 1 tablet by [facility] once daily. cholestyramine resin 4000 mg [...] ablation on 05/20/2021 Medjenelle Osman [id number] @ [facility] 05/20/21 Diseases of white blood [...] sources) Long-term current use of anticoagulant; Translations: [meterman (current) use of 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s] Onset: 8 04-18-2018 Episodic Other aftercare (16 sources) Anticoagulant effect; Translations: [meterman (current) use of 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s] Onset: 2 05-20-2021 [...] 6 07-11-2015 Episodic Other aftercare (1 source) meterman (current) use of 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s; Translations: [meterman (current) use of 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s] Onset: 5 Episodic [...] Coag (PPP) [Relative time] 2.2 {INR} Normal [facility] Comment on above: Result Comment: Crit ical Value > 4.0 Performed By: #### L 500.2500, L506.1000 #### [facility] [address] [place], [place], [phone] Protime Coagsen 24.3 SEC High 11.7-14.9 [facility] Comment on above: Performed By: #### L 500.2500, L506.1000 #### [facility] [address] [place], [place], [phone] International normalized rat io (INR) measurement by fingerstickOrdered By: Real Gibson on 01-18-2025 INR Coag (BldC) [Relative time] 3.0 [facility] Comment on above: Critical Value > 4.0 Protime w/INR Fingerstickon 01-18-2025 INR Coag (PPP) [Relative time] 3.0 {INR} Normal [facility] Comment on above: Result Comment: Crit ical Value > 4.0 Performed By: #### L 9200.0000 #### [facility] [address] [place], [place], [phone] Protime [place]agsen 31.2 SEC High 11.7-14.9 [facility] Comment on above: Performed By: #### L 9200.0000 #### [facility] [address] [place], [address] Whole blood prothrombin time Ordered By: Real Gibson on 01-18-2025 PT Coag (Bld) [Time] 31.2 s High 11.7-14.9 [facility] International normalized rat io (INR) measurement by fingerstickOrdered By: Real Gibson on 12-23-2024 INR Coag (BldC) [Relative time] 2.9 [facility] Comment on above: Critical Value > 4.0 Protime w/INR Fingerstickon 12-23-2024 INR Coag (PPP) [Relative time] 2.9 {INR} Normal [facility] Comment on above: Result Comment: Crit ical Value > 4.0 Performed By: #### L 9200.0000 #### [facility] [address] [place], [address] Protime Coagsen 29.9 SEC High 11.7-14.9 [facility] Comment on above: Performed By: #### L 9200.0000 #### [facility] [address] [place], [address] Whole blood prothrombin time Ordered By: Real Gibson on 12-23-2024 PT Coag (Bld) [Time] 29.9 s High 11.7-14.9 [facility] Cardiology Visit Reporton Cardiology Visit Report [facility] [address] [place] [address] OFFICE VISIT Date of Service: 12/01/24 MR#: [id number] Acct: [id number] Name: GLORIA MATHEW Rep #: [id number] : 1940 Provider: Dr. Real Gibson MD Age/Sex: 84/F Location: [facility] Status: Signed HPI HPI History of Present Illness Details: GLORIA MATHEW, is a 84 year old white female who presents for cardiovascular follow up visit. The patient was evaluated at [facility] on 05-07-2021 for concerns of her recurrent atrial dysrhythmia/fibrillat ion with RVR and concerns of abnormal cardiac enzymes. She underwent diagnostic cardiac catheterization at that time. She was not found to have angiographically significant CAD and required no revascularization therapy. Again, she presented to [facility] on 05/18/2021 for evaluation based upon recurrent [...] IV amiodarone. She was then transferred to [facility] for an electrophysiology evaluation on 05-24-2021. She [...] 1 y fu / JAH @ 10:30 Library Attendant Required: No Accompanied by: Sister Is patient [...] PO DAILY REPLACEMENT 3 12/01/24 History 50 vq-eywx-snaksf-stephanie-s .borat tablet (Caltrate 600-D Plus Minerals) gabapentin [...] past year?: Yes (5- gets tripped up) [facility] Medical History Hematoma Skin ulcer of hip with fat layer exposed Loss of hearing Wears hearing aid Wears glasses Cancer High cholesterol Restless legs History of IBS Diverticulosis History of diverticulitis History of echocardiogram History of pacemaker Cardiology follow-up encounter Osteopenia GI bleed Non-smoker CPAP (puneet (more content not included)... Normal [facility] International normalized rat io (INR) measurement by fingerstickOrdered By: Real Gibson on 12-01-2024 INR Coag (BldC) [Relative time] 3.0 [facility] Comment on above: Critical Value > 4.0 Pacemaker Checkon 12-01-2024 Pacemaker Check [facility] [address] [place] [address]. [address] [place] [address] Pacemaker Check Date of Service: 12/01/241715 MR#: [id number] Acct: [id number] Name: GLORIA MATHEW Rep #: [id number] : 1940 From: Karla Hong Age/Sex: 84/F Location: [facility] Status: Signed Billing Codes PM Device Codes: 83915 PM Dev Prog Eval, Dual Assessment and Plan Assessment and Plan (1) Presence of permanent cardiac pacemaker: Status: Chronic Comment: [employer] Evelin XT DR SAME[id number] 05/20[facility] (2) Atrial fibrillation: Status: Chronic Qualifiers: Atrial fibrillation type: paroxysmal Qualified Code(s): I48.0 - Paroxysmal atrial fibrillation 12/01/241716 Date Karla Flores Signature: Date (if applicable) CC: Normal [facility] Protime w/INR Fingerstickon 12-01-2024 INR Coag (PPP) [Relative time] 3.0 {INR} Normal [facility] Comment on above: Result Comment: Crit ical Value > 4.0 Performed By: #### L 300.3900 #### [facility] [address] [place], [address] Protime Coagsen 31.6 SEC High 11.7-14.9 [facility] Comment on above: Performed By: #### L 300.3900 #### [facility] [address] [place], [address] Whole blood prothrombin time Ordered By: Real Gibson on 12-01-2024 PT Coag (Bld) [Time] 31.6 s High 11.7-14.9 [facility] International normalized rat io (INR) measurement by fingerstickOrdered By: Real Gibson on 11-09-2024 INR Coag (BldC) [Relative time] 2.0 [facility] Comment on above: Critical Value > 4.0 Prothrombin Time w/INRon INR Normal [facility] Comment on above: Order Comment: Comme nts: STANDING ORDER Result Comment: PT I S A FINGERSTICK Performed By: #### L 500.2500, L506.1000 #### [facility] [address] [place], [address] PROTIME Normal 11.7-14.9 [facility] Comment on above: Order Comment: Comme nts: STANDING ORDER Result Comment: PT I S A FINGERSTICK Performed By: #### L 500.2500, L506.1000 #### [facility] [address] [place], [address] Protime w/INR Fingerstickon 11-09-2024 INR Coag (PPP) [Relative time] 2.0 {INR} Normal [facility] Comment on above: Result Comment: Crit ical Value > 4.0 Performed By: #### L 9200.0000 #### [facility] [address] [place], [place], [phone] Protime Coagsen 21.8 SEC High 11.7-14.9 [facility] Comment on above: Performed By: #### L 9200.0000 #### [facility] [address] [place], [place], [phone] Whole blood prothrombin time Ordered By: Realheide Gibson on 11-09-2024 PT Coag (Bld) [Time] 21.8 s High 11.7-14.9 [facility] Prothrombin Time w/INRon INR Coag (PPP) [Relative time] 1.6 {INR} Normal [facility] Comment on above: Performed By: #### L 300.3900 #### [facility] [address] [place], [address] PT Coag (PPP) [Time] 19.1 s High 11.7-14.9 [facility] Comment on above: Performed By: #### L 300.3900 #### [facility] [address] [place], [address] Prothrombin timeOrdered By: Real Gibson on 11-02-2024 PT Coag (PPP) [Time] 19.1 s High 11.7-14.9 [facility] International normalized rat io (INR) calculationOrdered By: Real Gibson on 10-07-2024 INR Coag (Bld) [Relative time] 1.8 {INR} [facility] Prothrombin Time w/INRon INR Coag (PPP) [Relative time] 1.8 {INR} Normal [facility] Comment on above: Performed By: #### L 300.3900 #### [facility] [address] [place], [address] PT Coag (PPP) [Time] 21.2 s High 11.7-14.[address] [facility] Comment on above: Performed By: #### L 300.3900 #### [facility] [address] [place], [address] Prothrombin timeOrdered By: Real Gibson on 10-07-2024 PT Coag (PPP) [Time] 21.2 s High 11.7-14.9 [facility] Colonoscopy Reporton 025 Colonoscopy Report [facility] Medical Records Department [address] [place] [address] Colonoscopy Report MR#: [id number] Acct: [id number] Name: GLORIA MATHEW Rep #: [id number] : 1940 83 From: Avtar Desir MD PCP: Dr. Samantha Anglin MD Status:[facility] Patient Name: Gloria Mathew Procedure Date: 09/14/2024 [...] for review. Procedure Code(s): --- Professional --- 35748, Colonoscopy, flexible; with biopsy, single or multiple Diagnosis Code(s): --- Professional --- D12.2, Benign neoplasm of ascending colon D12.5, Benign neoplasm of sigmoid colon K62.89, Other specified diseases of anus and rectum K92.1, Melena (includes Hematochezia) D50.9, Iron deficiency anemia, unspecified K57.30, Diverticulosis of large intestine without perforation or abscess without bleeding CPT copyright 2021 [employer]. All rights reserved. The codes documented in this report are preliminary and upon outpatient coder review may be revised to meet current compliance requirements. Avtar Desir MD 09/14/2024 10:08:16 AM This report has been signed electronically. Number of Addenda: 0 Note Initiated On: 09/14/2024 9:02 AM 09/14/24 1008 Date Avtar Desir MD Cosigner Signature: Date (if indicated) CC: Dr. Samantha Anglin MD; Dr. Avtar Desir MD Date Dictated: 09/14/24 0902 Date Transcribed: Termite Helper: LORRIE Signed Normal [facility] EGD Reporton 09-14-2024 EGD Report [facility] Medical Records Department [address] [place] [address] EGD Report MR#: [id number] Acct: [id number] Name: GLORIA MATHEW Rep #: [id number] : 1940 83 From: Avtar Desir MD PCP: Dr. Samantha Anglin MD Status:[facility] Patient Name: Gloria Mathew Procedure Date: 09/14/2024 [...] 1 week. Procedure Code(s): --- Professional --- 36116, Esophagogastroduodeno scopy, flexible, transoral; with removal of tumor(s), polyp(s), or other lesion(s) by snare technique 16166, 59, Esophagogastroduodeno scopy, flexible, transoral; with biopsy, single or multiple Diagnosis Code(s): --- Professional --- K31.7, Polyp of stomach and duodenum K31.89, Other diseases of stomach and duodenum K22.89, Other specified disease of esophagus K44.9, Diaphragmatic hernia without obstruction or gangrene D50.9, Iron deficiency anemia, unspecified CPT copyright 2022 [employer]. All rights reserved. The codes documented in this report are preliminary and upon outpatient coder review may be revised to meet current compliance requirements. Avtar Desir MD 09/14/2024 10:01:12 AM This report has been signed electronically. Number of Addenda: 0 Note Initiated On: 09/14/2024 7:48 AM 09/14/24 1001 Date Avtar Desir MD Cosigner Signature: Date (if indicated) CC: Dr. Samantha Anglin MD; Dr. Avtar Desir MD Date Dictated: 09/14/24 0748 Date Transcribed: Termite Helper: LORRIE Signed Normal [facility] International normalized rat io (INR) calculationOrdered By: Salomón Kay on 09-14-2024 INR Coag (Bld) [Relative time] 1.5 {INR} [facility] MR/POSTOP.ANEon 09-14-2024 MR/POSTOP.[facility] Medical Records Department [address] [place] [address] Anesthesia Postop Eval I 09/14/24 1001 MR#: [id number] Acct: [id number] Name: GLORIA MATHEW Rep #: [id number] : 1940 83 From: Bud Mckee CRNA PCP: Dr. Samantha Anglin MD Status:REG SDC Y Race: C Location: [facility]04-03 Anesthesia: Postop Eval I Current Vital [...] completed: Yes 09/14/24 1002 Date Bud Mckee THERAPIST RESPIRATORY Jenigner Signature: Date CC: Signed Normal [facility] MR/[id number] 09-14-2024 MR/POSTOPAN2 [facility] Medical Records Department [address] [place] [address] Anesthesia Postop Eval II 09/14/24 1142 MR#: [id number] Acct: [id number] Name: GLORIA MATHEW Rep #: [id number] : 1940 83 From: Harry Albright MD PCP: Dr. Samantha Anglin MD Status:[facility] Y Race: C Location: [place] Anesthesia Postop Eval I Sum Postop Eval Completion status Anesthesia document: Postop Eval 1 completed: Yes Anesthesia Postop Eval I Summary Anesthesia Postop Eval I Summary: Anesthesia Postop Eval I: Assessment Summary Airway patent Yes 09/14/24 10:01 THERAPIST RESPIRATORY.TNES Spontaneous unlabored Yes 09/14/24 10:01 THERAPIST RESPIRATORY.TNES respirations Mental status nausea No 09/14/24 10:01 THERAPIST RESPIRATORY.TNES Vomiting No 09/14/24 10:01 THERAPIST RESPIRATORY.TNES Anesthesia Postop Eval I: Fluid Summary Crystalloid volume administer 800 09/14/24 10:01 THERAPIST RESPIRATORY.TNES (ml) Colloids volume administered ( ml) Blood Product volume administered (ml) Total IV fluid infused 800 09/14/24 10:01 THERAPIST RESPIRATORY.TNES Anesthesia Postop Eval I: Summary Notes Anesthesia Complication No 09/14/24 10:01 THERAPIST RESPIRATORY.TNES Anesthesia Complication Comment: Post-operative progress note Anesthesia: Postop Eval II Evaluation Mental status: Awake Pain Level: 0 nausea: No Vomiting: No 09/14/24 1142 Date Harry Flores Signature: Date CC: Signed Normal [facility] Prothrombin Time w/INRon INR Coag (PPP) [Relative time] 1.5 {INR} Normal [facility] Comment on above: Performed By: #### L 300.3900 #### [facility] [address] [place], [place], [address] PT Coag (PPP) [Time] 18.2 s High 11.7-14.9 [facility] Comment on above: Performed By: #### L 300.3900 #### [facility] [address] [place], [address] Prothrombin timeOrdered By: Salomón Kay on 09-14-2024 PT Coag (PPP) [Time] 18.2 s High 11.7-14.9 [facility] Protime w/INR Fingerstickon 09-14-2024 INR Coag (PPP) [Relative time] 1.6 {INR} Normal [facility] Comment on above: Result Comment: Crit ical Value > 4.0 Performed By: #### L 9200.0000 #### [facility] Laboratory [address] [place], [place], [address] Protime Coagsen 17.9 SEC High 11.7-14.9 [facility] Comment on above: Performed By: #### L 9200.0000 #### [facility] Laboratory [address] [place], [place], [address] Surgery Specimen Level Christin 09-14-2024 Surgery Specimen Level IV -------- Patient Age/Sex Location Account Attending Physician -------- GLORIA MATHEW 83/F EN [id number] Dr. Avtar Desir MD -------- Specimen: [id number] Received: 09/14/24 Status: ALLISON Dupont Num: [id number] Spec Type: COLON BX Subm Dr: Dr. [...] 0.2 cm. Submitted in toto in D1. [facility] 09-14-2024 -------- Patient Age/Sex Location Account Attending Physician -------- GLORIA MATHEW 83/F EN [id number] Dr. Avtar Desir MD -------- [facility]:[id number] -------- Patient Age/Sex Location Account Attending Physician -------- GLORIA MATHEW EN [id number] Dr. Avtar Desir MD -------- Signed (signature on file) Dr. Ciera Del Angel MD 09/20/24 1612 -------- Normal [facility] Comment on above: Performed By: #### L 300.3900 #### [facility] Laboratory [address] [facility] [place], [address] Whole blood prothrombin time Ordered By: Avtar Desir on 09-14-2024 PT Coag (Bld) [Time] 17.9 s High 11.7-14.9 [facility] MR/PAT.Ellen 09-12-2024 MR/PAT.[facility] Medical Records Department [address] [place] [address] PAT - Anesthesia 09/12/24 1649 MR#: [id number] Acct: [id number] Name: GLORIA MATHEW Rep #: [id number] : 1940 83 From: Salomón Kay MD PCP: Dr. Samantha Anglin MD Status:PRE [facility] Race: C Location: EN Pre-Assessment Diagnosis/Proposed Procedure Planned Operative Procedure(s): EGD, COLONOSCOPY Anesthesia History Anesthesia History - book agent: Anesthesia History - book agent Hx Hospitalization No 09/12/24 09:27 Any Problems [...] take am of surgery PONV PONV - book agent: PONV - book agent Female Yes 09/12/24 09:27 HX of Motion [...] 08/01/24 08:09 Respiratory Assessment Respiratory Assessment - book agent: Respiratory Tract Infection 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 Hx Respiratory Tract Infection No 09/12/24 09:27 STOP Sleep Apnea STOP Sleep Apnea - book agent: STOP Sleep Apnea - book agent Hx Hypertension No 09/12/24 09:27 Hx Sleep [...] Tobacco Use History Tobacco Use History - book agent: Tobacco Use History - book agent Tobacco Use Smoking Status Never smoker 09/12/24 09:27 Hx Tobacco Use No 09/12/24 09:27 Years Smoking Packs Smoked per Day Smoking Cessation Date was within the last 15 years Hx Smoking Cessation Date Hx Smoking Cessation Counseling Hematologic Medial History Hematologic 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: 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 Hx of Blood Transfusion Yes 09/12/24 09:27 [...] /Reproductio n History /Reproductiv e History - book agent: /Reproductiv e Hx- book agent Hx Now No 09/12/24 09:27 Gestational Age (in weeks): EDC: Hx Hx Para Hx Section SAB No 09/12/24 09:27 [facility]LY [facility] Medical History (Updated 09/12/24 @ 09:41 by Patito Haines) Hematoma Skin ulcer of hip with fat layer exposed Loss of hearing Wears hearing aid Wears glasses Cancer High cholesterol Restless legs History of IBS Diverticulosis History of diverticulitis History of echocardiogram History of pacemaker Cardiology follow-up encounter Osteopenia GI bleed Non-smoker CPAP (continuous positive airway pressure) dependence Pacemaker 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, left meterman current use of anticoagulant Atrial fibrillation Neuropathic pain Restless leg syndrome Allergic rhinitis Depression Vitamin B12 deficiency Hyperlipidemia Vitamin D deficiency Osteoporosis 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 Presence of permanent cardiac pacemaker ( 05/20/21) Depression GERD (gastroesophageal reflux disease) Sleep apnea Anticoagulated on warfarin Acute non-ST elevation myocardial infarction (NSTEMI) Hernia Endometrial cancer Neuropathy Mitral and aortic valv (more content not included)... Normal [facility] Ferritinon 08-25-2024 Ferritin [Mass/Vol] 96 ng/mL Normal 22-378 [facility] Comment on above: Performed By: #### L 485.6550, L300.3900 #### [facility] Laboratory [address] [place], [place], [id number] International normalized rat io (INR) calculationOrdered By: Real Gibson on 08-25-2024 INR Coag (Bld) [Relative time] 2.0 {INR} [facility] Prothrombin Time w/INRon INR Coag (PPP) [Relative time] 2.0 {INR} Normal [facility] Comment on above: Performed By: #### L 368.6579, L300.3900 #### [facility] [address] [place], [place], [id number] PT Coag (PPP) [Time] 23.1 s High 11.7-14.9 [facility] Comment on above: Performed By: #### L 5036550, L300.3900 #### [facility] [address] [place], [place], [address] Prothrombin timeOrdered By: Real Paige on 08-25-2024 PT Coag (PPP) [Time] 23.1 s High 11.7-14.9 [facility] Serum or plasma ferritin marianne surement (mass/volume)Ordered By: Real Paige on 08-25-2024 Ferritin [Mass/Vol] 96 ng/mL 22-378 [facility] Protime w/INR Fingerstickon 08-15-2024 INR Coag (PPP) [Relative time] 2.2 {INR} Normal [facility] Comment on above: Result Comment: Crit ical Value > 4.0 Performed By: #### L 9200.0000 ####[facility] [address] [place], [place], [address] Protime Coagsen 24.0 SEC High 11.7-14.9 [facility] Comment on above: Performed By: #### L 9200.0000 ####[facility] [address] [place], [place], [address] Whole blood prothrombin time Ordered By: Real Paige on 08-15-2024 PT Coag (Bld) [Time] 24.0 s High 11.7-14.9 [facility] Surgery Visit Reporton 08-01 Surgery Visit Report [facility] [address] [place], [place] [address] OFFICE VISIT Date of Service: 08/01/24 MR#: [id number] Acct: [id number] Name: GLORIA MATHEW Rep #: [id number] : 1940 Provider: Dr. Avtar painting MD Age/Sex: 83/F Location: [facility] Status: Signed Intake Vital Signs 06/02/24 10:24 [...] PO DAILY REPLACEMENT 3 08/01/24 History 50 xf-exsx-rvztvl-stephanie-s .borat tablet (Caltrate 600-D Plus Minerals) gabapentin [...] airway pressure) dependence Pacemaker 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, left halfway current use of anticoagulant Atrial fibrillation Neuropathic [...] smoker alcohol (more content not included)... Normal [facility] INR Coag (BldC) [Relative ti me]Ordered By: Hazen Paige on 07-29-2024 INR Coag (Bld) [Relative time] 2.1 {INR} [facility] Comment on above: Critical Value > 4.0 International normalized rat io (INR) measurement by fingerstickOrdered By: Real Paige on 07-29-2024 INR Coag (BldC) [Relative time] 2.1 [facility] Comment on above: Critical Value > 4.0 PT Coag (Bld) [Time]Ordered By: Hazen Paige on 07-29-2024 Bedside Prothrombin Time 23.0 SEC High 11.7-14.9 [facility] Protime w/INR Fingerstickon 07-29-2024 INR Coag (PPP) [Relative time] 2.1 {INR} Normal [facility] Comment on above: Result Comment: Crit ical Value > 4.0 Performed By: #### L 500.2500, L506.1000 #### [facility] Laboratory [address] [place], [address] Protime Coagsen 23.0 SEC High 11.7-14.9 [facility] Comment on above: Performed By: #### L 500.2500, L506.1000 #### [facility] [address] [place], [address] Whole blood prothrombin time Ordered By: Real Paige on 07-29-2024 PT Coag (Bld) [Time] 23.0 s High 11.7-14.9 [facility] Prothrombin Time w/INRon INR Coag (PPP) [Relative time] 3.9 {INR} Normal [facility] Comment on above: Order Comment: MICK Simon STICK WAS 4.0 Performed By: #### L 500.2500, L506.1000 #### [facility] [address] [place], [address] PT Coag (PPP) [Time] 38.7 s High 11.7-14.9 [facility] Comment on above: Order Comment: BOONEE R STICK WAS 4.0 Performed By: #### L 500.2500, L506.1000 #### [facility] [address] [place], [address] Prothrombin timeOrdered By: Hazen Paige on 07-21-2024 PT Coag (PPP) [Time] 38.7 s High 11.7-14.9 [facility] Protime w/INR Fingerstickon 07-21-2024 INR Coag (PPP) [Relative time] 4.0 {INR} Invalid Interpretation Code [facility] Comment on above: Result Comment: Crit ical Value > 4.0 Performed By: #### L 500.2500, L506.1000 #### [facility] [address] [place], [address] Protime Coagsen 40.1 SEC High 11.7-14.9 [facility] Comment on above: Performed By: #### L 500.2500, L506.1000 #### [facility] [address] [place], [address] Absolute lymphocyte countOrd ered By: Hazen Paige on 07-14-2024 Lymphocytes Auto (Unsp spec) [#/Vol] 0.98 10*3/uL 0.83-4.51 [facility] Absolute neutrophil countOrd ered By: Real Paige on 07-14-2024 Neutrophils (Bld) [#/Vol] 4.4 10*3/uL 2.0-7.7 [facility] Automated lymphocyte count a s percentage of total leukocytesOrdered By: Hazen Paige on 07-14-2024 Lymphocytes/100 WBC Auto (Unsp spec) 15.7 % Low 19-41 [facility] Basophil percentageOrdered B y: Real Paige on 07-14-2024 Basophils/100 WBC (Bld) 1.1 % High 0-1 [facility] CBC W/Diff, Automatedon 07-02 Absolute Lymph 0.98 X10 3/uL Normal 0.83-4.51 [facility] Comment on above: Performed By: #### L 100.0100, L300.3900 ####[facility] [address] [place], [address] Absolute Neut 4.4 X10 3/uL Normal 2.0-7.7 [facility] Comment on above: Performed By: #### L 100.0100, L300.3900 ####[facility] [address] [place], [address] Basophils/100 WBC (Bld) 1.1 % High 0-1 [facility] Comment on above: Performed By: #### L 100.0100, L300.3900 ####[facility] [address] [place], [address] Eosinophils/100 WBC (Bld) 4.5 % Normal 0-5 [facility] Comment on above: Performed By: #### L 100.0100, L300.3900 ####[facility] [address] [place], [address] Erythrocyte distribution width (RBC) [Ratio] 13.7 % Normal 11.6-14.6 [facility] Comment on above: Performed By: #### L 100.0100, L300.3900 ####[facility] [address] [place], [address] Hematocrit (Bld) [Volume fraction] 35.8 % Low 37-47 [facility] Comment on above: Performed By: #### L 100.0100, L300.3900 ####[facility] [address] [place], [address] Hemoglobin (Bld) [Mass/Vol] 11.9 g/dL Low 12.0-15.0 [facility] Comment on above: Performed By: #### L 100.0100, L300.3900 ####[facility] [address] [place], [address] IG% 0.300 Normal 0.0-0.9 [facility] Comment on above: Result Comment: IG% - Immature Granulocytes (promyelocytes, myelocytes and metamyelocytes) > 1% indicates that a LEFT SHIFT is Present. Performed By: #### L 100.0100, L300.3900 ####[facility] [address] [place], [address] Lymphocytes/100 WBC (Bld) 15.7 % Low 19-41 [facility] Comment on above: Performed By: #### L 100.0100, L300.3900 ####[facility] [address] [place], [address] MCH (RBC) [Entitic mass] 29.5 pg Normal 27.0-32.0 [facility] Comment on above: Performed By: #### L 100.0100, L300.3900 ####[facility] [address] [place], [address] MCHC (RBC) [Mass/Vol] 33.2 g/dL Normal 32-36 [facility] Comment on above: Performed By: #### L 100.0100, L300.3900 ####[facility] [address] [place], [address] MCV (RBC) [Entitic vol] 88.6 fL Normal 81-99 [facility] Comment on above: Performed By: #### L 100.0100, L300.3900 ####[facility] [address] [place], [address] Monocytes/100 WBC (Bld) 8.0 % Normal 0-10 [facility] Comment on above: Performed By: #### L 100.0100, L300.3900 ####[facility] [address] [place], [address] Neutrophils/100 WBC (Bld) 70.4 % High 47-70 [facility] Comment on above: Performed By: #### L 100.0100, L300.3900 ####[facility] [address] [place], [address] Nucleated RBC (Bld) [#/Vol] 0 10*3/uL Normal 0-5 [facility] Comment on above: Performed By: #### L 100.0100, L300.3900 ####[facility] [address] [place], [address] Platelet mean volume (Bld) [Entitic vol] 9.2 fL Normal 6.2-12.0 [facility] Comment on above: Performed By: #### L 100.0100, L300.3900 ####[facility] [address] [place], [address] Platelets (Bld) [#/Vol] 226 10*3/uL Normal 150-450 [facility] Comment on above: Performed By: #### L 100.0100, L300.3900 ####[facility] [address] [place], [address] RBC (Bld) [#/Vol] 4.04 10*6/uL Low 4.2-5.4 [facility] Comment on above: Performed By: #### L 100.0100, L300.3900 ####[facility] [address] [place], [address] RDW SD 44.8 fl High 35.1-43.9 [facility] Comment on above: Performed By: #### L 100.0100, L300.3900 ####[facility] [address] [place], [address] WBC (Bld) [#/Vol] 6.3 10*3/uL Normal 4.4-11.0 [facility] Comment on above: Performed By: #### L 100.0100, L300.3900 ####[facility] [address] [place], [place], [id number] Eosinophil percentageOrdered By: Real Paige on 07-14-2024 Eosinophils/100 WBC (Bld) 4.5 % 0-5 [facility] Erythrocyte distribution wid th ratioOrdered By: [facility] on 07-14-2024 Erythrocyte distribution width (RBC) [Ratio] 13.7 % 11.6-14.6 [facility] Erythrocyte distribution wid th standard deviationOrdered By: RealJefferson Healthori on 07-14-2024 Erythrocyte distribution width (RBC) [Entitic vol] 44.8 fL High 35.1-43.9 [facility] Erythrocyte distribution width (RBC) [Ratio] 44.8 fl High 35.1-43.9 [facility] Hematocrit Auto (Bld) [Volum e fraction]Ordered By: Real Paige on 07-14-2024 Hematocrit (Bld) [Volume fraction] 35.8 % Low 37-47 [facility] Hemoglobin measurementOrdere d By: Real Paige on 07-14-2024 Hemoglobin (Bld) [Mass/Vol] 11.9 g/dL Low 12.0-15.0 [facility] Immature granulocytes/100 WB C Auto (Bld)Ordered By: Real Paige on 07-14-2024 Immature granulocytes/100 WBC (Bld) 0.300 % 0.0-0.9 [facility] Comment on above: IG% - Immature Granu locytes (promyelocytes, myelocytes and metamyelocytes) > 1% indicates that a LEFT SHIFT is Present. Lymphocytes Auto (Unsp spec) [#/Vol]Ordered By: Hazen Paige on 07-14-2024 Lymphocytes (Bld) [#/Vol] 0.98 10*3/uL 0.83-4.51 [facility] Lymphocytes/100 WBC Auto (Un sp spec)Ordered By: Hazen Paige on 07-14-2024 Lymphocytes/100 WBC (Bld) 15.7 % Low 19-41 [facility] MCV (mean corpuscular volume ) determinationOrdered By: Real Paige on 07-14-2024 MCV (RBC) [Entitic vol] 88.6 fL 81-99 [facility] Mean corpuscular hemoglobin (MCH) determinationOrdered By: Real Paige on 07-14-2024 MCH (RBC) [Entitic mass] 29.5 pg 27.0-32.0 [facility] Mean corpuscular hemoglobin concentration (MCHC) determinationOrdered By: Hazen Paige on 07-14-2024 MCHC (RBC) [Mass/Vol] 33.2 g/dL 32-36 [facility] Mean platelet volume determi nationOrdered By: Real Paige on 07-14-2024 Platelet mean volume (Bld) [Entitic vol] 9.2 fL 6.2-12.0 [facility] Monocyte percentageOrdered B y: Real Paige on 07-14-2024 Monocytes/100 WBC (Bld) 8.0 % 0-10 [facility] Neutrophil percentageOrdered By: Hazen Paige on 07-14-2024 Neutrophils/100 WBC (Bld) 70.4 % High 47-70 [facility] Nucleated red blood cell per centageOrdered By: Hazen Paige on 07-14-2024 Nucleated RBC/100 WBC (Bld) [Ratio] 0 % 0-5 [facility] Platelet countOrdered By: Cy ril Paige on 07-14-2024 Platelets (Bld) [#/Vol] 226 10*3/uL 150-450 [facility] Prothrombin Time w/INRon INR Coag (PPP) [Relative time] 3.1 {INR} Normal [facility] Comment on above: Performed By: #### L 100.0100, L300.3900 ####[facility] [address] [place], [address] PT Coag (PPP) [Time] 32.4 s High 11.7-14.9 [facility] Comment on above: Performed By: #### L 100.0100, L300.3900 ####[facility] [address] [place], [address] RBC Auto (Bld) [#/Vol]Ordere d By: Real Gibson on 07-14-2024 RBC (Bld) [#/Vol] 4.04 10*6/uL Low 4.2-5.4 [facility] White blood cell (WBC) count Ordered By: Real Gibson on 07-14-2024 WBC (Bld) [#/Vol] 6.3 10*3/uL 4.4-11.0 [facility] Protime w/INR Fingerstickon 06-20-2024 INR Coag (PPP) [Relative time] 2.6 {INR} Normal [facility] Comment on above: Result Comment: Crit ical Value > 4.0 Performed By: #### L 9200.0000 ####[facility] [address] [place], [place], [address] Protime Coagsen 26.2 SEC High 11.7-14.9 [facility] Comment on above: Performed By: #### L 9200.0000 ####[facility] [address] [place], [address] Echo Complete W/ Contraston 06-17-2024 Echo Complete W/ Contrast [facility] [address] [place] [address] Echo Complete W/ Contrast 06/17/24 1257 MR#: [id number] Acct: [id number] Name: GLORIA MATHEW Rep #: [id number] : 1940 83 From: Real Gibson MD Attending Dr: Speedy Bacon NP-C Status: REG CLI Ordering Dr: Speedy Bacon NP AIR ANALYST-C Date: 06/17/24 Location: [facility] Sex: F C Admitted: Reason For Study [...] Date Dictated: 06/17/24 1257 Date Transcribed: 06/17/241657 Termite Helper: Signed Normal [facility] INR Coag (BldC) [Relative ti me]Ordered By: Real Gibson on 06-17-2024 INR Coag (Bld) [Relative time] 2.6 {INR} [facility] Comment on above: Critical Value > 4.0 International normalized rat io (INR) measurement by fingerstickOrdered By: Real Gibson on 06-17-2024 INR Coag (BldC) [Relative time] 2.6 [facility] Comment on above: Critical Value > 4.0 PT Coag (Bld) [Time]Ordered By: Real Gibson on 06-17-2024 Bedside Prothrombin Time 26.2 SEC High 11.7-14.9 [facility] Whole blood prothrombin time Ordered By: Real Gibson on 06-17-2024 PT Coag (Bld) [Time] 26.2 s High 11.7-14.9 [facility] Cardiology Visit Reporton Cardiology Visit Report [facility] [address] [place], [place] [address] OFFICE VISIT Date of Service: 06/02/24 MR#: [id number] Acct: [id number] Name: GLORIA MATHEW Rep #: [id number] : 1940 Provider: TAN bundy Age/Sex: 83/F Location: [facility] Status: Signed HPI HPI History of Present Illness Details: GLORIA MATHEW, is a 83 year old white female who presents for cardiovascular follow up visit. The patient was evaluated at [facility] on 05-07-2021 for concerns of her recurrent atrial dysrhythmia/fibrillat ion with RVR and concerns of abnormal cardiac enzymes. She underwent diagnostic cardiac catheterization at that time. She was not found to have angiographically significant CAD and required no revascularization therapy. Again, she presented to [facility] on 05/18/2021 for evaluation based upon recurrent [...] IV amiodarone. She was then transferred to [facility] for an electrophysiology evaluation on 05-24-2021. She [...] 96 Intake Visit Reasons: 6 M FU Library Attendant Required: No Is patient in pain?: No [...] PO DAILY REPLACEMENT 3 06/02/24 History 50 zc-qlxj-puaqiy-stephanie-s .borat tablet (Caltrate 600-D Plus Minerals) gabapentin [...] you fallen in the past year?: Yes [facility] Medical History (Updated 02/11/24 @ 00:02 by Background Daemon) Hematoma Skin ulcer of hip with fat layer exposed Loss of hearing Wears hearing aid Wears glasses Cancer High cholesterol Restless legs History of IBS Diverti (more content not included)... Normal [facility] INR Coag (BldC) [Relative ti me]Ordered By: Real Gibson on 06-02-2024 INR Coag (Bld) [Relative time] 2.2 {INR} [facility] Comment on above: Critical Value > 4.0 International normalized rat io (INR) measurement by fingerstickOrdered By: Real Gibson on 06-02-2024 INR Coag (BldC) [Relative time] 2.2 [facility] Comment on above: Critical Value > 4.0 PT Coag (Bld) [Time]Ordered By: Real Gibson on 06-02-2024 Bedside Prothrombin Time 22.7 SEC High 11.7-14.9 [facility] Protime w/INR Fingerstickon 06-02-2024 INR Coag (PPP) [Relative time] 2.2 {INR} Normal [facility] Comment on above: Result Comment: Crit ical Value > 4.0 Performed By: #### L 500.2500, L506.1000 #### [facility] [address] [place], [place], [id number] Protime Coagsen 22.7 SEC High 11.7-14.9 [facility] Comment on above: Performed By: #### L 500.2500, L506.1000 #### [facility] [address] [place], [address] Whole blood prothrombin time Ordered By: Real Gibson on 06-02-2024 PT Coag (Bld) [Time] 22.7 s High 11.7-14.9 [facility] Protime w/INR Fingerstickon 05-20-2024 INR Coag (PPP) [Relative time] 3.6 {INR} Normal [facility] Comment on above: Result Comment: Crit ical Value > 4.0 Performed By: #### L 500.2500, L506.1000 #### [facility] [address] [place], [address] Protime Coagsen 35.4 SEC High 11.7-14.9 [facility] [facility] Comment on above: Performed By: #### L 500.2500, L506.1000 #### [facility] [address] [place], [address] 10-PA-Mtkfvga DOrdered By: Alfred CABRERA on 05-17-2024 Vitamin D 25-Hydroxy 64.1 ng/mL [facility] Comment on above: Vitamin D 25(OH) Sta tus Range Deficiency <20 ng/mL (50nmol/L) Insufficiency 20 - 30 ng/mL (50 - 75 nmol/L) Sufficiency 30 - 100 ng/mL (75 - 250 nmol/L) Toxicity >100 ng/mL (>250 nmol/L) Basic Metabolic Profile (BMP )on 05-17-2024 BUN/CRE 21.0 RATIO High 10-20 [facility] Comment on above: Performed By: #### L 500.2500, L506.1000 #### [facility] [address] [place], [address] CA,Total 9.2 mg/dL Normal 8.5-10.1 [facility] Comment on above: Performed By: #### L 500.2500, L506.1000 #### [facility] [address] [place], [address] Chloride [Moles/Vol] 107 mmol/L Normal 98-107 [facility] Comment on above: Performed By: #### L 500.2500, L506.1000 #### [facility] [address] [place], [address] CO2 [Moles/Vol] 32.0 mmol/L Normal 21.0-32.0 [facility] Comment on above: Performed By: #### L 500.2500, L506.1000 #### [facility] [address] [place], [address] Creatinine [Mass/Vol] 1.05 mg/dL High 0.55-1.02 [facility] Comment on above: Result Comment: The validity of the calculated GFR GFRAA in patients over 70 years has not been determined. Clinical correlation is essential. Performed By: #### L 500.2500, L506.1000 #### [facility] [address] [place], [address] EST GFR - AA 65 mL/min Normal >60 [facility] Comment on above: Result Comment: Afri can Kenyan GFR Calc Performed By: #### L 500.2500, L506.1000 #### [facility] [address] [place], [address] GAP 2 Low 5-15 [facility] Comment on above: Performed By: #### L 500.2500, L506.1000 #### [facility] [address] [place], [address] GFR/1.73 sq M.predicted among non-blacks MDRD (S/P/Bld) [Vol rate/Area] 53 mL/min/{1.73_m2} Low >60 [facility] Comment on above: Result Comment: Non- GFR Calc Performed By: #### L 500.2500, L506.1000 #### [facility] [address] [place], [address] Glucose [Mass/Vol] 108 mg/dL High 74-106 [facility] Comment on above: Result Comment: Fast ing Glucose result from 100 to 125 mg/dL suggests IMPAIRED HOMEOSTASIS per A.D.A. criteria. Performed By: #### L 500.2500, L506.1000 #### [facility] [address] [place], [address] Potassium [Moles/Vol] 3.9 mmol/L Normal 3.5-5.1 [facility] Comment on above: Performed By: #### L 500.2500, L506.1000 #### [facility] [address] [place], [address] Sodium [Moles/Vol] 141 mmol/L Normal 136-145 [facility] Comment on above: Performed By: #### L 500.2500, L506.1000 #### [facility] [address] [place], [address] Urea nitrogen [Mass/Vol] 22 mg/dL High 7-18 [facility] Comment on above: Performed By: #### L 500.2500, L506.1000 #### [facility] [address] [place], [address] Blood urea nitrogen (BUN)/cr eatinine ratioOrdered By: SHELLY CABRERA on 05-17-2024 Urea nitrogen/Creatinine [Mass ratio] 21.0 mg/mg High 10-20 [facility] Carbon dioxide measurementOr dered By: SHELLY CABRERA on 05-17-2024 CO2 [Moles/Vol] 32.0 mmol/L 21.0-32.0 [facility] Chloride measurementOrdered By: SHELLY CABRERA on 05-17-2024 Chloride [Moles/Vol] 107 mmol/L 98-107 [facility] Estimated glomerular filtrat ion rate (GFR) AmericanOrdered By: SHELLY CABRERA on 05-17-2024 Estimated GFR (MDRD) Amer 65 mL/min >60 [facility] Comment on above: GFR Calc Glomerular filtration rate ( GFR) estimationOrdered By: SHELLY CABRERA on 05-17-2024 Estimated GFR (MDRD) Non-Af Amer 53 mL/min Low >60 [facility] Comment on above: Non- GFR Calc GFR/1.73 sq M.predicted among non-blacks MDRD (S/P/Bld) [Vol rate/Area] 53 mL/min/{1.73_m2} Low >60 [facility] Comment on above: Non- GFR Calc Glucose measurementOrdered B y: SHELLY CABRERA on 05-17-2024 Glucose [Mass/Vol] 108 mg/dL High 74-106 [facility] Comment on above: Fasting Glucose resu lt from 100 to 125 mg/dL suggests IMPAIRED HOMEOSTASIS per A.D.A. criteria. Potassium measurementOrdered By: SHELLY CABRERA on 05-17-2024 Potassium [Moles/Vol] 3.9 mmol/L 3.5-5.1 [facility] Serum anion gap measurementO rdered By: SHELLY CABRERA on 05-17-2024 Anion gap [Moles/Vol] 2 mmol/L Low 5-15 [facility] Serum or plasma calcium lashawn urement (mass/volume)Ordered By: SHELLY CABRERA on 05-17-2024 Calcium [Mass/Vol] 9.2 mg/dL 8.5-10.1 [facility] Serum or plasma creatinine m easurement (mass/volume)Ordered By: SHELLY CABRERA on 05-17-2024 Creatinine [Mass/Vol] 1.05 mg/dL High 0.55-1.02 [facility] Comment on above: The validity of the calculated GFR & GFRAA in patients over 70 years has not been determined. Clinical correlation is essential. Serum or plasma urea nitroge n measurement (mass/volume)Ordered By: SHELLY CABRERA on 05-17-2024 Urea nitrogen [Mass/Vol] 22 mg/dL High 7-18 [facility] Sodium levelOrdered By: JULIÁN CABRERA on 05-17-2024 Sodium [Moles/Vol] 141 mmol/L 136-145 [facility] Vitamin D,25 Hydroxyon 05-17 Vitamin D 25-OH 64.1 ng/mL Normal [facility] Comment on above: Result Comment: Amita min D 25(OH) Status Range Deficiency <20 ng/mL (50nmol/L) Insufficiency 20 - 30 ng/mL (50 - 75 nmol/L) Sufficiency 30 - 100 ng/mL (75 - 250 nmol/L) Toxicity >100 ng/mL (>250 nmol/L) Performed By: #### L 500.2500, L506.1000 #### [facility] [address] [place], [address] Absolute neutrophil countOrd ered By: Samantha Anglin on 05-03-2024 Neutrophils (Bld) [#/Vol] 4.5 10*3/uL 2.0-7.7 [facility] Basophil percentageOrdered B y: Samantha Anglin on 05-03-2024 Basophils/100 WBC (Bld) 1.3 % High 0-1 [facility] CBC W/Diff, Automatedon 04-05 Absolute Lymph 1.01 X10 3/uL Normal 0.83-4.51 [facility] Comment on above: Order Comment: Order Date: 04/18/24Order Info: 183- - CBCD Performed By: #### L 500.2500, L506.1000 #### [facility] [address] [place], [address] Absolute Neut 4.5 X10 3/uL Normal 2.0-7.7 [facility] Comment on above: Order Comment: Order Date: 04/18/24Order Info: 183- - CBCD Performed By: #### L 500.2500, L506.1000 #### [facility] [address] [place], [address] Basophils/100 WBC (Bld) 1.3 % High 0-1 [facility] Comment on above: Order Comment: Order Date: 04/18/24Order Info: 0184-1 - CBCD Performed By: #### L 500.2500, L506.1000 #### [facility] [address] [place], [address] Eosinophils/100 WBC (Bld) 2.7 % Normal 0-5 [facility] Comment on above: Order Comment: Order Date: 04/18/24Order Info: 0184-1 - CBCD Performed By: #### L 500.2500, L506.1000 #### [facility] [address] [place], [address] Erythrocyte distribution width (RBC) [Ratio] 13.1 % Normal 11.6-14.6 [facility] Comment on above: Order Comment: Order Date: 04/18/24Order Info: 183- - CBCD Performed By: #### L 500.2500, L506.1000 #### [facility] [address] [place], [address] Hematocrit (Bld) [Volume fraction] 41.0 % Normal 37-47 [facility] Comment on above: Order Comment: Order Date: 04/18/24Order Info: 183- - CBCD Performed By: #### L 500.2500, L506.1000 #### [facility] [address] [place], [address] Hemoglobin (Bld) [Mass/Vol] 13.5 g/dL Normal 12.0-15.0 [facility] Comment on above: Order Comment: Order Date: 04/18/24Order Info: 183- - CBCD Performed By: #### L 500.2500, L506.1000 #### [facility] [address] [place], [address] IG% 0.300 Normal 0.0-0.9 [facility] Comment on above: Order Comment: Order Date: 04/18/24Order Info: 183- - CBCD Result Comment: IG% - Immature Granulocytes (promyelocytes, myelocytes and metamyelocytes) > 1% indicates that a LEFT SHIFT is Present. Performed By: #### L 500.2500, L506.1000 #### [facility] [address] [place], [address] Lymphocytes/100 WBC (Bld) 16.3 % Low 19-41 [facility] Comment on above: Order Comment: Order Date: 04/18/24Order Info: 018-1 - CBCD Performed By: #### L 500.2500, L506.1000 #### [facility] [address] [place], [address] MCH (RBC) [Entitic mass] 29.5 pg Normal 27.0-32.0 [facility] Comment on above: Order Comment: Order Date: 04/18/24Order Info: 4-1 - CBCD Performed By: #### L 500.2500, L506.1000 #### [facility] [address] [place], [address] MCHC (RBC) [Mass/Vol] 32.9 g/dL Normal 32-36 [facility] Comment on above: Order Comment: Order Date: 04/18/24Order Info: 183- - CBCD Performed By: #### L 500.2500, L506.1000 #### [facility] [address] [place], [address] MCV (RBC) [Entitic vol] 89.5 fL Normal 81-99 [facility] Comment on above: Order Comment: Order Date: 04/18/24Order Info: 183- - CBCD Performed By: #### L 500.2500, L506.1000 #### [facility] [address] [place], [address] Monocytes/100 WBC (Bld) 7.1 % Normal 0-10 [facility] Comment on above: Order Comment: Order Date: 04/18/24Order Info: 4-1 - CBCD Performed By: #### L 500.2500, L506.1000 #### [facility] [address] [place], [address] Neutrophils/100 WBC (Bld) 72.3 % High 47-70 [facility] Comment on above: Order Comment: Order Date: 04/18/24Order Info: 0184-1 - CBCD Performed By: #### L 500.2500, L506.1000 #### [facility] [address] [place], [address] Nucleated RBC (Bld) [#/Vol] 0 10*3/uL Normal 0-5 [facility] Comment on above: Order Comment: Order Date: 04/18/24Order Info: 0184-1 - CBCD Performed By: #### L 500.2500, L506.1000 #### [facility] [address] [place], [address] Platelet mean volume (Bld) [Entitic vol] 8.5 fL Normal 6.2-12.0 [facility] Comment on above: Order Comment: Order Date: 04/18/24Order Info: 018- - CBCD Performed By: #### L 500.2500, L506.1000 #### [facility] [address] [place], [address] Platelets (Bld) [#/Vol] 246 10*3/uL Normal 150-450 [facility] Comment on above: Order Comment: Order Date: 04/18/24Order Info: 018- - CBCD Performed By: #### L 500.2500, L506.1000 #### [facility] [address] [place], [address] RBC (Bld) [#/Vol] 4.58 10*6/uL Normal 4.2-5.4 [facility] Comment on above: Order Comment: Order Date: 04/18/24Order Info: 018- - CBCD Performed By: #### L 500.2500, L506.1000 #### [facility] [address] [place], [address] RDW SD 42.5 fl Normal 35.1-43.9 [facility] Comment on above: Order Comment: Order Date: 04/18/24Order Info: 018-1 - CBCD Performed By: #### L 500.2500, L506.1000 #### [facility] [address] [place], [address] WBC (Bld) [#/Vol] 6.2 10*3/uL Normal 4.4-11.0 [facility] Comment on above: Order Comment: Order Date: 04/18/24Order Info: 0184-1 - CBCD Performed By: #### L 500.2500, L506.1000 #### [facility] [address] [place], [address] Eosinophil percentageOrdered By: [facility] on 05-03-2024 Eosinophils/100 WBC (Bld) 2.7 % 0-5 [facility] Erythrocyte distribution wid th ratioOrdered By: [facility] Derrek on 05-03-2024 Erythrocyte distribution width (RBC) [Ratio] 13.1 % 11.6-14.6 [facility] Erythrocyte distribution wid th standard deviationOrdered By: [facility] on 05-03-2024 Erythrocyte distribution width (RBC) [Entitic vol] 42.5 fL 35.1-43.9 [facility] Hematocrit Auto (Bld) [Volum e fraction]Ordered By: [facility] Derrek on 05-03-2024 Hematocrit (Bld) [Volume fraction] 41.0 % 37-47 [facility] Hemoglobin measurementOrdere d By: [facility] on 05-03-2024 Hemoglobin (Bld) [Mass/Vol] 13.5 g/dL 12.0-15.0 [facility] Immature granulocytes/100 WB C Auto (Bld)Ordered By: [facility] Derrek on 05-03-2024 Immature granulocytes/100 WBC (Bld) 0.300 % 0.0-0.9 [facility] Comment on above: IG% - Immature Granu locytes (promyelocytes, myelocytes and metamyelocytes) > 1% indicates that a LEFT SHIFT is Present. Lymphocytes Auto (Unsp spec) [#/Vol]Ordered By: [facility] Der[facility] on 05-03-2024 Lymphocytes (Bld) [#/Vol] 1.01 10*3/uL 0.83-4.51 [facility] Lymphocytes/100 WBC Auto (Un sp spec)Ordered By: Samantha Anglin on 05-03-2024 Lymphocytes/100 WBC (Bld) 16.3 % Low 19-41 [facility] MCV (mean corpuscular volume ) determinationOrdered By: Samantha Anglin on 05-03-2024 MCV (RBC) [Entitic vol] 89.5 fL 81-99 [facility] Mean corpuscular hemoglobin (MCH) determinationOrdered By: Samantha Derrek on 05-03-2024 MCH (RBC) [Entitic mass] 29.5 pg 27.0-32.0 [facility] Mean corpuscular hemoglobin concentration (MCHC) determinationOrdered By: Ivananjelica Derrek on 05-03-2024 MCHC (RBC) [Mass/Vol] 32.9 g/dL 32-36 [facility] Mean platelet volume determi nationOrdered By: Samantha Anglin on 05-03-2024 Platelet mean volume (Bld) [Entitic vol] 8.5 fL 6.2-12.0 [facility] Monocyte percentageOrdered B y: Ivananjelica Derrek on 05-03-2024 Monocytes/100 WBC (Bld) 7.1 % 0-10 [facility] Neutrophil percentageOrdered By: Samantha Anglin on 05-03-2024 Neutrophils/100 WBC (Bld) 72.3 % High 47-70 [facility] Nucleated red blood cell per centageOrdered By: Samantha Anglin on 05-03-2024 Nucleated RBC/100 WBC (Bld) [Ratio] 0 % 0-5 [facility] Platelet countOrdered By: Anna Anglin on 05-03-2024 Platelets (Bld) [#/Vol] 246 10*3/uL 150-450 [facility] RBC Auto (Bld) [#/Vol]Ordere d By: Samantha Anglin on 05-03-2024 RBC (Bld) [#/Vol] 4.58 10*6/uL 4.2-5.4 [facility] White blood cell (WBC) count Ordered By: Samantha Anglin on 05-03-2024 WBC (Bld) [#/Vol] 6.2 10*3/uL 4.4-11.0 [facility] INR Coag (BldC) [Relative ti me]Ordered By: Real Gibson on 04-28-2024 INR Coag (Bld) [Relative time] 3.3 {INR} [facility] Comment on above: Critical Value > 4.0 PT Coag (Bld) [Time]Ordered By: Real Gibson on 04-28-2024 Bedside Prothrombin Time 33.7 SEC High 11.7-14.9 [facility] Protime w/INR Fingerstickon 04-28-2024 INR Coag (PPP) [Relative time] 3.3 {INR} Normal [facility] Comment on above: Result Comment: Crit ical Value > 4.0 Performed By: #### L 500.2500, L506.1000 #### [facility] [address] [place], [address] Protime Coagsen 33.7 SEC High 11.7-14.9 [facility] Comment on above: Performed By: #### L 500.2500, L506.1000 #### [facility] [address] [place], [address] PT D/C Summary (1)on 024 PT D/C Summary (1) [facility] Physical Therapy [facility] [address] [place] [address]. [address] [place] [address] / REHABILITATION SERVICES DISCHARGE SUMMARY MR#: [id number] Acct: [id number] Name: GLORIA MATHEW Rep #: [id number] : 1940 83 From: Jaciel Garcia DPT, OCS, CSCS Referring Dr.: Dr. Samantha Anglin MD Status: REG R Insurance[facility] 03/04/18 SELF PAY INSURANCE Discharge Summary [...] please feel free to call me at [phone]. Thank you for the referral of this patient. Sincerely, Jaciel Garcia, DPT, OCS, CSCS Balance/Gait/Function al tests Balance/Special Test Scores Functional Gait Assessment Score: 30 % Disability: 0 CATSIB Score (Max score 120 seconds): 100 Lower Extremity Functional Score: 56 Improvement % Improvement: 90 04/07/24 1339 CC: Dr. Samantha Anglin MD EBG Signed Normal [facility] Protime w/INR Fingerstickon 03-30-2024 INR Coag (PPP) [Relative time] 3.0 {INR} Normal [facility] Comment on above: Result Comment: Crit ical Value > 4.0 Performed By: #### L 500.2500, L506.1000 #### [facility] [address] [place], [place], [id number] Protime Coagsen 31.0 SEC High 11.7-14.9 [facility] Comment on above: Performed By: #### L 500.2500, L506.1000 #### [facility] [address] [place] [address], [id number] SCRN MAMM (CAD)W/ADINA BILATo n 03-21-2024 SCRN MAMM (CAD)W/ADINA BILAT [facility] [address] [place], [place] [address] SCRN MAMM (CAD)W/ADINA BILAT MR#: [id number] Acct: [id number] Name: GLORIA MATHEW Rep #: [id number] : 1940 F 83 From: Franky morrissey MD PCP: Dr. Samantha Anglin MD Status: REG [facility] Study: SCRN MAMM (CAD)W/ADINA BILAT Date of Exam: 03/04 12/25 Exam# [id number] Ordering Dr: Samantha Anglin MD [id number] MAMMOGRAPHY - BILATERAL SCREENING REASON FOR EXAM: [...] delay biopsy of a clinically suspicious abnormality. [id number] Electronically Signed: Franky Grimes MD at 10:16 EST , CC: Dr. Samantha Anglin MD Termite Helper: Signed Normal [facility] - CoagulationOrde red By: Avtar Desir on 09-10-2023 INR Coag (Bld) [Relative time] 1.6 {INR} [facility] PT Coag (PPP) [Time] 19.1 s 11.7-14.9 [facility] Whole blood prothrombin time Ordered By: Avtar Desir on 09-10-2023 PT Coag (Bld) [Time] 17.1 s 11.7-14.9 [facility] Capillary blood internationa l normalized ratio (INR)Ordered By: Real Gibson on 08-27-2023 INR Coag (BldC) [Relative time] 2.2 [facility] Comment on above: Critical Value > 4.0 Whole blood prothrombin time Ordered By: Real Gibson on 08-27-2023 PT Coag (Bld) [Time] 22.7 s 11.7-14.9 [facility] Capillary blood internationa l normalized ratio (INR)Ordered By: Real Gibson on 07-27-2023 INR Coag (BldC) [Relative time] 2.2 [facility] Comment on above: Critical Value > 4.0 Whole blood prothrombin time Ordered By: Real Gibson on 07-27-2023 PT Coag (Bld) [Time] 22.8 s 11.7-14.9 [facility] Capillary blood internationa l normalized ratio (INR)Ordered By: Real Gibson on 07-13-2023 INR Coag (BldC) [Relative time] 2.2 [facility] Comment on above: Critical Value > 4.0 Whole blood prothrombin time Ordered By: Real Gibson on 07-13-2023 PT Coag (Bld) [Time] 23.0 s 11.7-14.9 [facility] Absolute lymphocyte countOrd ered By: Samantha Anglin on 07-09-2023 Lymphocytes Auto (Unsp spec) [#/Vol] 1.29 10*3/uL 0.83-4.51 [facility] Automated lymphocyte count a s percentage of total leukocytesOrdered By: Samantha Anglin on 07-09-2023 Lymphocytes/100 WBC Auto (Unsp spec) 19.5 % 19-41 [facility] Basophil percentageOrdered B y: Samantha Anglni on 07-09-2023 Basophils/100 WBC (Bld) 1.4 % 0-1 [facility] Eosinophils/100 WBC (Bld) 2.7 % 0-5 [facility] Hemoglobin (Bld) [Mass/Vol] 13.3 g/dL 12.0-15.0 [facility] Monocytes/100 WBC (Bld) 7.9 % 0-10 [facility] Neutrophils (Bld) [#/Vol] 4.5 10*3/uL 2.0-7.7 [facility] Neutrophils/100 WBC (Bld) 68.2 % 47-70 [facility] WBC (Bld) [#/Vol] 6.6 10*3/uL 4.4-11.0 [facility] Determination of erythrocyte mean corpuscular volume (MCV)Ordered By: Samantha Anglin on 07-09-2023 MCV (RBC) [Entitic vol] 87.7 fL 81-99 [facility] Erythrocyte distribution wid th ratioOrdered By: Samantha Anglin on 07-09-2023 Erythrocyte distribution width (RBC) [Ratio] 13.0 % 11.6-14.6 [facility] Erythrocyte distribution wid th standard deviationOrdered By: [facility] Hospital[facility] on 07-09-2023 Erythrocyte distribution width (RBC) [Entitic vol] 41.0 fL 35.1-43.9 [facility] Hematocrit Auto (Bld) [Volum e fraction]Ordered By: Samantha Anglin on 07-09-2023 Hematocrit (Bld) [Volume fraction] 38.5 % 37-47 [facility] Immature granulocytes/100 WB C Auto (Bld)Ordered By: Samantha Anglin on 07-09-2023 Immature granulocytes/100 WBC (Bld) 0.300 % 0.0-0.9 [facility] Comment on above: IG% - Immature Granu locytes (promyelocytes, myelocytes and metamyelocytes) > 1% indicates that a LEFT SHIFT is Present. Laboratory - Hematology and Cell countsOrdered By: Samantha Anglin on 07-09-2023 MCH (RBC) [Entitic mass] 30.3 pg 27.0-32.0 [facility] MCHC (RBC) [Mass/Vol] 34.5 g/dL 32-36 [facility] Nucleated RBC/100 WBC (Bld) [Ratio] 0 % 0-5 [facility] Platelet mean volume (Bld) [Entitic vol] 9.1 fL 6.2-12.0 [facility] Platelets (Bld) [#/Vol] 206 10*3/uL 150-450 [facility] RBC Auto (Bld) [#/Vol]Ordere d By: Samantha Anglin on 07-09-2023 RBC (Bld) [#/Vol] 4.39 10*6/uL 4.2-5.4 [facility] Absolute lymphocyte countOrd ered By: Piter Perdomo on 07-03-2023 Lymphocytes Auto (Unsp spec) [#/Vol] 1.21 10*3/uL 0.83-4.51 [facility] Automated lymphocyte count a s percentage of total leukocytesOrdered By: Piter Perdomo on 07-03-2023 Lymphocytes/100 WBC Auto (Unsp spec) 23.8 % 19-41 [facility] Basophil percentageOrdered B y: Piter Perdomo on 07-03-2023 Basophils/100 WBC (Bld) 1.4 % 0-1 [facility] Eosinophils/100 WBC (Bld) 4.3 % 0-5 [facility] [facility] Hemoglobin (Bld) [Mass/Vol] 11.8 g/dL 12.0-15.0 [facility] Monocytes/100 WBC (Bld) 8.3 % 0-10 [facility] Neutrophils (Bld) [#/Vol] 3.1 10*3/uL 2.0-7.7 [facility] Neutrophils/100 WBC (Bld) 61.8 % 47-70 [facility] WBC (Bld) [#/Vol] 5.1 10*3/uL 4.4-11.0 [facility] Determination of erythrocyte mean corpuscular volume (MCV)Ordered By: Piter Perdomo on 07-03-2023 MCV (RBC) [Entitic vol] 90.9 fL 81-99 [facility] Erythrocyte distribution wid th ratioOrdered By: Piter Perdomo on 07-03-2023 Erythrocyte distribution width (RBC) [Ratio] 12.8 % 11.6-14.6 [facility] Erythrocyte distribution wid th standard deviationOrdered By: Piter Perdomo on 07-03-2023 Erythrocyte distribution width (RBC) [Entitic vol] 42.4 fL 35.1-43.9 [facility] Hematocrit Auto (Bld) [Volum e fraction]Ordered By: Piter Perdomo on 07-03-2023 Hematocrit (Bld) [Volume fraction] 34.9 % 37-47 [facility] Immature granulocytes/100 WB C Auto (Bld)Ordered By: Piter Perdomo on 07-03-2023 Immature granulocytes/100 WBC (Bld) 0.400 % 0.0-0.9 [facility] Comment on above: IG% - Immature Granu locytes (promyelocytes, myelocytes and metamyelocytes) > 1% indicates that a LEFT SHIFT is Present. Laboratory - CoagulationOrde red By: Piter Perdomo on 07-03-2023 INR Coag (Bld) [Relative time] 3.0 {INR} [facility] PT Coag (PPP) [Time] 31.2 s 11.7-14.9 [facility] Laboratory - Hematology and Cell countsOrdered By: Piter Perdomo on 07-03-2023 MCH (RBC) [Entitic mass] 30.7 pg 27.0-32.0 [facility] MCHC (RBC) [Mass/Vol] 33.8 g/dL 32-36 [facility] Nucleated RBC/100 WBC (Bld) [Ratio] 0 % 0-5 [facility] Platelet mean volume (Bld) [Entitic vol] 8.9 fL 6.2-12.0 [facility] Platelets (Bld) [#/Vol] 174 10*3/uL 150-450 [facility] RBC Auto (Bld) [#/Vol]Ordere d By: Piter Perdomo on 07-03-2023 RBC (Bld) [#/Vol] 3.84 10*6/uL 4.2-5.4 [facility] Absolute lymphocyte countOrd ered By: Cherelle Tuttle on 07-02-2023 Lymphocytes Auto (Unsp spec) [#/Vol] 0.93 10*3/uL 0.83-4.51 [facility] Automated lymphocyte count a s percentage of total leukocytesOrdered By: Cherelle Tuttle on 07-02-2023 Lymphocytes/100 WBC Auto (Unsp spec) 18.2 % 19-41 [facility] Basophil percentageOrdered B y: Piter Perdomo on 07-02-2023 Hemoglobin (Bld) [Mass/Vol] 12.5 g/dL 12.0-15.0 [facility] Basophil percentageOrdered B y: Cherelle Tuttle on 07-02-2023 Basophils/100 WBC (Bld) 1.2 % 0-1 [facility] Bilirubin [Mass/Vol] 1.20 mg/dL 0.20-1.00 [facility] Comment on above: For patients on eltr ombopag therapy, use of Dimension [place] TBIL is not recommended. Chloride [Moles/Vol] 112 mmol/L 98-107 [facility] Eosinophils/100 WBC (Bld) 3.3 % 0-5 [facility] Glucose [Mass/Vol] 92 mg/dL 74-106 [facility] Hemoglobin (Bld) [Mass/Vol] 13.4 g/dL 12.0-15.0 [facility] Lactate [Moles/Vol] 1.5 mmol/L 0.4-2.0 [facility] Monocytes/100 WBC (Bld) 7.6 % 0-10 [facility] Neutrophils (Bld) [#/Vol] 3.5 10*3/uL 2.0-7.7 [facility] Neutrophils/100 WBC (Bld) 69.5 % 47-70 [facility] Potassium [Moles/Vol] 3.8 mmol/L 3.5-5.1 [facility] Comment on above: Slight Hemolysis, Re sult may be falsely increased. Protein [Mass/Vol] 6.3 g/dL 6.4-8.2 [facility] Sodium [Moles/Vol] 141 mmol/L 136-145 [facility] WBC (Bld) [#/Vol] 5.1 10*3/uL 4.4-11.0 [facility] Determination of erythrocyte mean corpuscular volume (MCV)Ordered By: Cherelle Tuttle on 07-02-2023 MCV (RBC) [Entitic vol] 89.7 fL 81-99 [facility] Erythrocyte distribution wid th ratioOrdered By: Cherelle Tuttle on 07-02-2023 Erythrocyte distribution width (RBC) [Ratio] 12.4 % 11.6-14.6 [facility] Erythrocyte distribution wid th standard deviationOrdered By: Cherelle Tuttle on 07-02-2023 Erythrocyte distribution width (RBC) [Entitic vol] 41.0 fL 35.1-43.9 [facility] Hematocrit Auto (Bld) [Volum e fraction]Ordered By: Piter Perdomo on 07-02-2023 Hematocrit (Bld) [Volume fraction] 36.0 % 37-47 [facility] Hematocrit Auto (Bld) [Volum e fraction]Ordered By: Cherelle Tuttle on 07-02-2023 Hematocrit (Bld) [Volume fraction] 39.4 % 37-47 [facility] Immature granulocytes/100 WB C Auto (Bld)Ordered By: Cherelle Tuttle on 07-02-2023 Immature granulocytes/100 WBC (Bld) 0.200 % 0.0-0.9 [facility] Comment on above: IG% - Immature Granu locytes (promyelocytes, myelocytes and metamyelocytes) > 1% indicates that a LEFT SHIFT is Present. Laboratory - Chemistry and C hemistry - challengeOrdered By: Cherelle Tuttle on 07-02-2023 Albumin/Globulin [Mass ratio] 1.1 {ratio} 0.9-2.4 [facility] ALP [Catalytic activity/Vol] 65 U/L 45-117 [facility] ALT [Catalytic activity/Vol] 26 U/L 13-56 [facility] CO2 [Moles/Vol] 27.0 mmol/L 21.0-32.0 [facility] Globulin (S) [Mass/Vol] 3.0 g/dL 2.2-4.2 [facility] Urea nitrogen/Creatinine [Mass ratio] 13.0 mg/mg 10-20 [facility] Laboratory - CoagulationOrde red By: Cherelle Tuttle on 07-02-2023 INR Coag (Bld) [Relative time] 2.7 {INR} [facility] PT Coag (PPP) [Time] 28.3 s 11.7-14.9 [facility] Laboratory - Hematology and Cell countsOrdered By: Cherelle Tuttle on 07-02-2023 MCH (RBC) [Entitic mass] 30.5 pg 27.0-32.0 [facility] MCHC (RBC) [Mass/Vol] 34.0 g/dL 32-36 [facility] Nucleated RBC/100 WBC (Bld) [Ratio] 0 % 0-5 [facility] Platelet mean volume (Bld) [Entitic vol] 8.6 fL 6.2-12.0 [facility] Platelets (Bld) [#/Vol] 187 10*3/uL 150-450 [facility] No Panel InformationOrdered By: Cherelle Tuttle on 07-02-2023 Estimated Creatinine Clearance Calc 43.99 ml/min [facility] Estimated GFR (MDRD) Amer 75 mL/min >60 [facility] Comment on above: GFR Calc Estimated GFR (MDRD) Non-Af Amer 62 mL/min >60 [facility] Comment on above: Non- GFR Calc RBC Auto (Bld) [#/Vol]Ordere d By: Cherelle Tuttle on 07-02-2023 RBC (Bld) [#/Vol] 4.39 10*6/uL 4.2-5.4 [facility] Serum or plasma calcium lashawn urement (mass/volume)Ordered By: Cherelle Tuttle on 07-02-2023 Calcium [Mass/Vol] 8.2 mg/dL 8.5-10.1 [facility] Serum or plasma creatinine m easurement (mass/volume)Ordered By: Cherelle Tuttle on 07-02-2023 Creatinine [Mass/Vol] 0.92 mg/dL 0.55-1.02 [facility] Comment on above: The validity of the calculated GFR & GFRAA in patients over 70 years has not been determined. Clinical correlation is essential. Serum or plasma urea nitroge n measurement (mass/volume)Ordered By: Cherelle Tuttle on 07-02-2023 Urea nitrogen [Mass/Vol] 12 mg/dL 7-18 [facility] Thin prep Papanicolaou smear with manual screeningOrdered By: Cherelle Tuttle on 07-02-2023 Thin prep Papanicolaou smear with manual screening 3.3 g/dL 3.2-5.0 [facility] Thin prep Papanicolaou smear with manual screening 23 U/L 15-37 [facility] Comment on above: Slight Hemolysis, Re sult may be falsely increased. Thin prep Papanicolaou smear with manual screening 2 5-15 [facility] Capillary blood internationa l normalized ratio (INR)Ordered By: Real Gibson on 06-30-2023 INR Coag (BldC) [Relative time] 2.7 [facility] Comment on above: Critical Value > 4.0 Whole blood prothrombin time Ordered By: Real Gibson on 06-30-2023 PT Coag (Bld) [Time] 27.3 s 11.7-14.9 [facility] Capillary blood internationa l normalized ratio (INR)Ordered By: Real Gibson on 06-02-2023 INR Coag (BldC) [Relative time] 2.2 [facility] Comment on above: Critical Value > 4.0 Whole blood prothrombin time Ordered By: Real Gibson on 06-02-2023 PT Coag (Bld) [Time] 22.5 s 11.7-14.9 [facility] Laboratory - CoagulationOrde red By: Real Gibson on 04-13-2023 INR Coag (Bld) [Relative time] 2.1 {INR} [facility] Comment on above: Critical Value > 4.0 Whole blood prothrombin time Ordered By: Real Gibson on 04-13-2023 PT Coag (Bld) [Time] 23.3 s 11.7-14.9 [facility] Basic Metabolic Panelon 12 Anion gap [Moles/Vol] 8 mmol/L Normal 8-15 [facility] Comment on above: Performed By: #### B MP #### [facility] [address] [place] [address] Calcium [Mass/Vol] 10.0 mg/dL Normal 8.6-10.6 [facility] Comment on above: Performed By: #### B MP #### [facility] [address] [place] [address] Chloride [Moles/Vol] 105 mmol/L Normal 98-107 [facility] Comment on above: Performed By: #### B MP #### [facility] [address] [place] [address] CO2 [Moles/Vol] 26 mmol/L Normal 22-29 [facility] Comment on above: Performed By: #### B MP #### [facility] [address] [place] [address] Creatinine [Mass/Vol] 0.9 mg/dL Normal 0.5-1.2 [facility] Comment on above: Performed By: #### B MP #### [facility] [address] [place] [address] eGFR -Amer >=60 Normal >=60 [facility] Comment on above: Performed By: #### B MP #### [facility] [address] [place] [address] GFR/1.73 sq M.predicted among non-blacks MDRD (S/P/Bld) [Vol rate/Area] mL/min/{1.73_m2} Normal >=60 [facility] Comment on above: Performed By: #### B MP #### [facility] [address] [place] [address] Glucose [Mass/Vol] 80 mg/dL Normal 74-109 [facility] Comment on above: Performed By: #### B MP #### [facility] [address] [place] [address] Potassium [Moles/Vol] 4.2 mmol/L Normal 3.4-5.1 [facility] Comment on above: Performed By: #### B MP #### [facility] [address] [place] [address] Sodium [Moles/Vol] 139 mmol/L Normal 136-145 [facility] Comment on above: Performed By: #### B MP #### [facility] [address] [place] [address] Urea nitrogen [Mass/Vol] 18 mg/dL Normal 10-24 [facility] Comment on above: Performed By: #### B MP #### [facility] [address] [place], [place] [id number] Vitamin D 25-Hydroxyon 04-06 Biotin Interference Samples should not b e taken from patients receiving therapy with high biotin doses (i.e. >5mg/day) until at least 8 hours following the last biotin administration. Normal [facility] Comment on above: Performed By: #### V ITD #### [facility] [address] [place] [address] Vitamin D 36.8 ng/mL Normal >=30.0 [facility] Comment on above: Performed By: #### V ITD #### [facility] [address] [place] [address] Laboratory - CoagulationOrde red By: Real Gibson on 03-23-2023 INR Coag (Bld) [Relative time] 2.2 {INR} [facility] Comment on above: Critical Value > 4.0 Whole blood prothrombin time Ordered By: Real Paige on 03-23-2023 PT Coag (Bld) [Time] 24.1 s 11.7-14.9 [facility] Laboratory - CoagulationOrde red By: Real Paige on 03-02-2023 INR Coag (Bld) [Relative time] 1.5 {INR} [facility] Comment on above: Critical Value > 4.0 Whole blood prothrombin time Ordered By: Hazen Paige on 03-02-2023 PT Coag (Bld) [Time] 17.1 s 11.7-14.9 [facility] Laboratory - CoagulationOrde red By: Hazen Paige on 01-29-2023 INR Coag (Bld) [Relative time] 2.3 {INR} [facility] Comment on above: Critical Value > 4.0 Whole blood prothrombin time Ordered By: Real Paige on 01-29-2023 PT Coag (Bld) [Time] 24.6 s 11.7-14.9 [facility] Laboratory - CoagulationOrde red By: Real Gibson on 12-22-2022 INR Coag (Bld) [Relative time] 2.1 {INR} [facility] Comment on above: Critical Value > 4.0 Whole blood prothrombin time Ordered By: Real Gibson on 12-22-2022 PT Coag (Bld) [Time] 23.1 s 11.7-14.9 [facility] Laboratory - CoagulationOrde red By: Real Gibson on 11-27-2022 INR Coag (Bld) [Relative time] 3.1 {INR} [facility] Comment on above: Critical Value > 4.0 Whole blood prothrombin time Ordered By: Real Gibson on 11-27-2022 PT Coag (Bld) [Time] 33.6 s 11.7-14.9 [facility] Laboratory - CoagulationOrde red By: Real Gibson on 10-27-2022 INR Coag (Bld) [Relative time] 2.3 {INR} [facility] Comment on above: Critical Value > 4.0 Whole blood prothrombin time Ordered By: Real Gibson on 10-27-2022 PT Coag (Bld) [Time] 24.6 s 11.7-14.9 [facility] Laboratory - CoagulationOrde red By: Dr. Falk on 09-26-2022 INR Coag (Bld) [Relative time] 2.7 {INR} [facility] Comment on above: Critical Value > 4.0 Whole blood prothrombin time Ordered By: Dr. Falk on 09-26-2022 PT Coag (Bld) [Time] 29.4 s 11.7-14.9 [facility] Laboratory - CoagulationOrde red By: Dr. Falk on 08-29-2022 INR Coag (Bld) [Relative time] 1.8 {INR} [facility] Comment on above: Critical Value > 4.0 Whole blood prothrombin time Ordered By: Dr. Falk on 08-29-2022 PT Coag (Bld) [Time] 20.2 s 11.7-14.9 [facility] Laboratory - CoagulationOrde red By: Dr. Falk on 08-01-2022 INR Coag (Bld) [Relative time] 2.1 {INR} [facility] Comment on above: Critical Value > 4.0 Whole blood prothrombin time Ordered By: Dr. Falk on 08-01-2022 PT Coag (Bld) [Time] 23.0 s 11.7-14.9 [facility] Laboratory - CoagulationOrde red By: Dr. Falk on 07-11-2022 INR Coag (Bld) [Relative time] 2.2 {INR} [facility] Comment on above: Critical Value > 4.0 Whole blood prothrombin time Ordered By: Dr. Falk on 07-11-2022 PT Coag (Bld) [Time] 25.8 s 11.7-14.9 [facility] Laboratory - CoagulationOrde red By: Dr. Falk on 06-27-2022 INR Coag (Bld) [Relative time] 1.8 {INR} [facility] Comment on above: Critical Value > 4.0 Whole blood prothrombin time Ordered By: Dr. Falk on 06-27-2022 PT Coag (Bld) [Time] 21.6 s 11.7-14.9 [facility] Office Visiton 06-10-2022 Follow-up visit [id number] Carlo Mathew lisa 1940 F Date Provider Department Center 06/10/2022 30671-MQISNUCAMERON COYLE MG NROSURG None No family history on file Level of Service:01085 [place] OFFICE/OUTPATIENT NEW MODERATE MDM 45-59 MINUTES Reason for Visit and Comments: New Patient [542] - Possible spinal fracture Normal [facility] Progress Noteon 06-10-2022 Progress Note NEUROSURGERY [...] DAYS 03/12/22 Historical Provider, [employer] ([place] Matrix 5000) tablet Take 1 tablet by [...] No focal (more content not included)... Normal [facility] Laboratory - CoagulationOrde red By: Dr. Falk on 05-30-2022 INR Coag (Bld) [Relative time] 2.1 {INR} [facility] Comment on above: Critical Value > 4.0 Whole blood prothrombin time Ordered By: Dr. Falk on 05-30-2022 PT Coag (Bld) [Time] 24.9 s 11.7-14.9 [facility] Laboratory - Coagulationon 0 05-06-2022 INR Coag (Bld) [Relative time] 2.5 {INR} [facility] Work Phone: Comment on above: Critical Value > 4.0 Whole blood prothrombin time on 05-06-2022 PT Coag (Bld) [Time] 28.6 s 11.7-14.9 [facility] Work Phone: No Panel InformationOrdered By: Dr. Mello on 05-01-2022 Stool Calprotectin 63 ug/g 0-120 [facility] Comment on above: Concentration Interp retation Follow-Up<16 - 50 ug/g Normal None>50 -120 ug/g Borderline Re-evaluate in 4-6 weeks >120 ug/g Abnormal Repeat as clinically indicatedPerformed at: - [facility] [address] [id number] Director: Tarsha Lawton MD, Phone: [phone] No Panel InformationOrdered By: Dr. Mello on 04-30-2022 Endomysial IgA Antibody Negative Negative [facility] Serum IgA measurement (units /volume)Ordered By: Dr. Mello on 04-30-2022 IgA Qn (S) 326 mg/dL 64-422 [facility] Comment on above: Performed at: [facility] [address] [id number] Director: John Ibanez PhD, Phone: [phone] Serum or plasma C reactive p rotein measurement (mass/volume)Ordered By: Dr. Mello on 04-30-2022 CRP [Mass/Vol] mg/L 0.0-3.0 [facility] Comment on above: C-Reactive Protein ( CRP) provides useful information for thediagnosis, therapy and monitoring of inflammatory processesand associated diseases. For the evaluation of Relative Riskfor Cardiovascular Disease, a High Sensitivity CRP (HSCRP)should be ordered. Serum tissue transglutaminas e IgA antibody assay (units/volume)Ordered By: Dr. Mello on 04-30-2022 tTG IgA Qn (S) <2 U/mL 0-3 [facility] Comment on above: Negative 0 - 3 Weak Positive 4 - 10 Positive >10 Tissue Transglutaminase (tTG) has been identified as the endomysial antigen. Studies have demonstr- ated that endomysial IgA antibodies have over 99% specificity for gluten sensitive enteropathy. Laboratory - CoagulationOrde red By: Dr. Falk on 04-22-2022 INR Coag (Bld) [Relative time] 1.8 {INR} [facility] Comment on above: Critical Value > 4.0 Whole blood prothrombin time Ordered By: Dr. Falk on 04-22-2022 PT Coag (Bld) [Time] 21.3 s 11.7-14.9 [facility] Laboratory - Coagulationon 1 06-09-2021 INR Coag (Bld) [Relative time] 2.0 {INR} [facility] Work Phone: Comment on above: Critical Value > 4.0 Whole blood prothrombin time on 04-08-2022 PT Coag (Bld) [Time] 23.3 s 11.7-14.9 [facility] Work Phone: Laboratory - CoagulationOrde red By: Dr. Falk on 04-02-2022 INR Coag (Bld) [Relative time] 1.6 {INR} [facility] Comment on above: Critical Value > 4.0 Whole blood prothrombin time Ordered By: Dr. Falk on 04-02-2022 PT Coag (Bld) [Time] 19.5 s 11.7-14.9 [facility] Laboratory - CoagulationOrde red By: Dr. Falk on 02-28-2022 INR Coag (Bld) [Relative time] 1.8 {INR} [facility] Comment on above: Critical Value > 4.0 Whole blood prothrombin time Ordered By: Dr. Falk on 02-28-2022 PT Coag (Bld) [Time] 21.0 s 11.7-14.9 [facility] Laboratory - Coagulationon 1 INR Coag (Bld) [Relative time] 3.4 {INR} [facility] Work Phone: Comment on above: Critical Value > 4.0 Whole blood prothrombin time on 02-19-2022 PT Coag (Bld) [Time] 38.5 s 11.7-14.9 [facility] Work Phone: [phone] Laboratory - Coagulationon 1 INR Coag (Bld) [Relative time] 3.8 {INR} [facility] Work Phone: [phone] Comment on above: Critical Value > 4.0 Whole blood prothrombin time on 02-12-2022 PT Coag (Bld) [Time] 42.2 s 11.7-14.9 [facility] Work Phone: Laboratory - Coagulationon 0 01-28-2022 INR Coag (Bld) [Relative time] 3.1 {INR} [facility] Work Phone: [phone] Comment on above: Critical Value > 4.0 Whole blood prothrombin time on 01-28-2022 PT Coag (Bld) [Time] 35.7 s 11.7-14.9 [facility] Work Phone: [phone] Laboratory - Coagulationon 0 12-16-2021 INR Coag (Bld) [Relative time] 2.4 {INR} [facility] Work Phone: [phone] Comment on above: Critical Value > 4.0 Whole blood prothrombin time on 12-16-2021 PT Coag (Bld) [Time] 27.5 s 11.7-14.9 [facility] Work Phone: Laboratory - Coagulationon 0 11-20-2021 INR Coag (Bld) [Relative time] 2.7 {INR} [facility] Work Phone: [phone] Comment on above: Critical Value > 4.0 Whole blood prothrombin time on 11-20-2021 PT Coag (Bld) [Time] 30.9 s 11.7-14.9 [facility] Work Phone: Jose 10-31-2021 CNPN Telephone (AGKRISTINAMAC) GLORIA MATHEW ([id number]) 1940 F T Date Time Provider Department 10/31/21 ANIYA SHANKAR During your visit today, we recorded the following information about you: Aniya Shankar [facility] 10/31/2021 11:08 AM Signed Referred [...] daily. Recheck INR on 11/06 with new bench assembler electrical in [place]. The patient's INR was elevated on 09/25. [...] was in the hospital and then a detention facility. She was discharged home on 10/21 and has been taking warfarin 1mg daily. Since INR was therapeutic on 10/23, recommended that she continue this dose and have an INR check on 11/06 to ensure she is stable. She reports today that she has transferred care from Dr. Perez to a new bench assembler electrical in [place]. She has been to see the new bench assembler electrical once so is now established there. Instructed the patient to call the new bench assembler electrical office to see how they monitor warfarin. This Coumadin clinic can no longer manage, as the referring provider needs to be part of [facility]. The patient plans to call her bench assembler electrical office today for guidance and to set up next INR. Coumadin clinic will sign off at this time. Discussed with patient on the phone who read back instructions and verbalized understanding. Aniya Shankar [facility] Renny Morris LPN 11/01/2021 10:53 [...] Assessed Reason for Visit: Coumadin/INR [1207] Visit Diagnoses:meterman current use of anticoagulant [Z79.01] Paroxysmal atrial fibrillation (HCC) [I48.0] Order(s):PROTHROMBIN TIME/PT [SQPT] Order #: [id number] Prescriptions as of 11/01/2021 - gabapentin (NEURONTIN) [...] mg by mouth once daily. - Biotin-Silicon Fnyo-B-Clqzrzft 5,000 mcg-100 mg- 50 mg tab Take 1 tablet by mouth once daily. - Cholecalciferol, Vitamin D3, 1,000 unit cap Take 1,000 Units by mouth once daily. 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 Normal [facility] Jose 2021 HANNAHN Telephone (AGCARDPOB ) GLORIA MATHEW ([id number]) 1940 F CHT Date Time Provider Department 10/23/21 JEAN-PIERRE PEREZ During your visit today, we recorded the following information about you: Donald Cunningham RN 2021 9:33 AM Signed Received a call from [facility] clinic at [facility] requesting a new standing order for Coumadin clinic for the upcoming year. Requesting it be faxed to Karli at [phone]. MARCELLA Sarmiento MD 10/24/2021 7:37 PM Signed What do I need to fill out? William Cunningham RN 10/28/2021 9:42 AM Signed A standing order for the [place] coumadin clinic for the next year. Wasn't sure of the parameters for the INR levels? MARCELLA Sarmiento MD 10/28/2021 11:39 AM Signed INR 2-3; I do not see any form in [facility] William Cunningham RN 10/29/2021 11:39 AM Signed I found the form in [facility] will complete for you just need to know if you want him to have Vit K for INR over 9.0? MARCELLA Sarmiento MD 10/29/2021 11:48 AM Signed I signed the form and did approve VIt K but the form is for [facility], not [facility] William Dutta RPh 10/29/2021 12:20 PM Signed [facility] already manages this patient's INRs. She has her INRs checked at the [facility]. I think they just need a [...] Diagnosis:Atrial fibrillation, chronic (HCC) [I48.20] Order(s):CONSULT TO [facility] [[id number]] Order #: [id number]: 1 PROTHROMBIN TIME/PT [SQPT] Order #: [id number] STANDING Prescriptions as of 10/29/2021 - gabapentin [...] mg by mouth once daily. - Biotin-Silicon Sfnq-G-Coderswf 5,000 mcg-100 mg- 50 mg tab Take 1 tablet by mouth once daily. - Cholecalciferol, Vitamin D3, 1,000 unit cap Take 1,000 Units by mouth once daily. 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] 05/20/2021 Obstructive sleep apnea syndrome [G47.33] 05/20/2021 Neuropathy [G62.9] 05/20/2021 Anticoagulated on warfarin [Z79.01] 05/20/2021 Encounter Status:Closed by MELLISA DUTTA on 10/29/21 Normal [facility] Laboratory - Coagulationon 0 2021 INR Coag (Bld) [Relative time] 2.9 {INR} [facility] Comment on above: Critical Value > 4.0 Whole blood prothrombin time on 2021 PT Coag (Bld) [Time] 33.4 s 11.7-14.9 [facility] Work Phone: INR in Blood by Coagulation assayon 10-21-2021 INR Coag (Bld) [Relative time] 3.1 {INR} [facility] Work Phone: Laboratory - Coagulationon 0 10-21-2021 PT Coag (PPP) [Time] 31.7 s 11.7-14.9 [facility] Work Phone: Absolute lymphocyte counton 10-16-2021 Lymphocytes Auto (Unsp spec) [#/Vol] 0.78 10*3/uL 0.83-4.51 [facility] Work Phone: Basophil percentageon 2021 Chloride [Moles/Vol] 109 mmol/L 98-107 [facility] Work Phone: Glucose [Mass/Vol] 85 mg/dL 74-106 [facility] Work Phone: Potassium [Moles/Vol] 4.5 mmol/L 3.5-5.1 [facility] Work Phone: Sodium [Moles/Vol] 140 mmol/L 136-145 [facility] Work Phone: Basophils/100 WBC (Bld) 0.9 % 0-1 [facility] Work Phone: Eosinophils/100 WBC (Bld) 4.0 % 0-5 [facility] Work Phone: Neutrophils (Bld) [#/Vol] 3.2 10*3/uL 2.0-7.7 [facility] Work Phone: Neutrophils/100 WBC (Bld) 68.1 % 47-70 [facility] Work Phone: WBC (Bld) [#/Vol] 4.7 10*3/uL 4.4-11.0 [facility] Work Phone: Blood erythrocytes count (nu mber/volume)on 10-16-2021 RBC (Bld) [#/Vol] 3.17 10*6/uL 4.2-5.4 [facility] Work Phone: Blood hemoglobin measurement (mass/volume)on 10-16-2021 Hemoglobin (Bld) [Mass/Vol] 9.9 g/dL 12.0-15.0 [facility] Work Phone: Blood lymphocytes/100 leukoc yteson 10-16-2021 Lymphocytes/100 WBC (Bld) 16.6 % 19-41 [facility] Work Phone: Blood monocytes/100 leukocyt eson 10-16-2021 Monocytes/100 WBC (Bld) 10.0 % 0-10 [facility] Work Phone: Blood platelet mean volumeon 10-16-2021 Platelet mean volume (Bld) [Entitic vol] 8.8 fL 6.2-12.0 [facility] Work Phone: Determination of erythrocyte mean corpuscular volume (MCV)on 10-16-2021 MCV (RBC) [Entitic vol] 93.7 fL 81-99 [facility] Work Phone: [phone] Hematocrit Auto (Bld) [Volum e fraction]on 10-16-2021 Hematocrit (Bld) [Volume fraction] 29.7 % 37-47 [facility] Work Phone: Laboratory - Chemistry and C hemistry - challengeon 10-16-2021 CO2 [Moles/Vol] 27.0 mmol/L 21.0-32.0 [facility] Work Phone: Urea nitrogen/Creatinine [Mass ratio] 29.6 mg/mg 10-20 [facility] Work Phone: [phone] Laboratory - Hematology and Cell countson 10-16-2021 Erythrocyte distribution width (RBC) [Entitic vol] 45.9 fL 35.1-43.9 [facility] Work Phone: [phone] Erythrocyte distribution width (RBC) [Ratio] 13.6 % 11.6-14.6 [facility] Work Phone: [phone] Immature granulocytes/100 WBC (Bld) 0.400 % 0.0-0.9 [facility] Work Phone: Comment on above: IG% - Immature Granu locytes (promyelocytes, myelocytes and metamyelocytes) > 1% indicates that a LEFT SHIFT is Present. MCH (RBC) [Entitic mass] 31.2 pg 27.0-32.0 [facility] Work Phone: Nucleated RBC/100 WBC (Bld) [Ratio] 0 % 0-5 [facility] Work Phone: [phone] MCHC Auto (RBC) [Mass/Vol]on 10-16-2021 MCHC (RBC) [Mass/Vol] 33.3 g/dL 32-36 [facility] Work Phone: No Panel Informationon 10-16 Estimated Creatinine Clearance Calc 45.27 ml/min [facility] Work Phone: [phone] Estimated GFR (MDRD) Amer 88 mL/min >60 [facility] Work Phone: Comment on above: GFR Calc Estimated GFR (MDRD) Non-Af Amer 72 mL/min >60 [facility] Work Phone: Comment on above: Non- GFR Calc Platelets bldon 10-16-2021 Platelets (Bld) [#/Vol] 215 10*3/uL 150-450 [facility] Work Phone: Serum or plasma calcium lashawn urement (mass/volume)on 10-16-2021 Calcium [Mass/Vol] 9.0 mg/dL 8.5-10.1 [facility] Work Phone: Serum or plasma creatinine m easurement (mass/volume)on 10-16-2021 Creatinine [Mass/Vol] 0.81 mg/dL 0.55-1.02 [facility] Work Phone: Comment on above: The validity of the calculated GFR & GFRAA in patients over 70 years has not been determined. Clinical correlation is essential. Serum or plasma urea nitroge n measurement (mass/volume)on 10-16-2021 Urea nitrogen [Mass/Vol] 24 mg/dL 7-18 [facility] Work Phone: Thin prep Papanicolaou smear with manual screeningon 10-16-2021 Thin prep Papanicolaou smear with manual screening 4 5-15 [facility] Work Phone: INR in Blood by Coagulation assayon 10-14-2021 INR Coag (Bld) [Relative time] 2.4 {INR} [facility] Work Phone: Laboratory - Coagulationon 0 10-14-2021 PT Coag (PPP) [Time] 25.7 s 11.7-14.9 [facility] Work Phone: Absolute lymphocyte counton 10-09-2021 Lymphocytes Auto (Unsp spec) [#/Vol] 1.04 10*3/uL 0.83-4.51 [facility] Work Phone: Basophil percentageon 2021 Basophils/100 WBC (Bld) 0.7 % 0-1 [facility] Work Phone: Chloride [Moles/Vol] 109 mmol/L 98-107 [facility] Work Phone: Eosinophils/100 WBC (Bld) 3.1 % 0-5 [facility] Work Phone: Glucose [Mass/Vol] 103 mg/dL 74-106 [facility] Work Phone: Comment on above: Fasting Glucose resu lt from 100 to 125 mg/dL suggests IMPAIRED HOMEOSTASIS per A.D.A. criteria. Neutrophils (Bld) [#/Vol] 3.6 10*3/uL 2.0-7.7 [facility] Work Phone: Neutrophils/100 WBC (Bld) 64.5 % 47-70 [facility] Work Phone: Potassium [Moles/Vol] 4.0 mmol/L 3.5-5.1 [facility] Work Phone: Sodium [Moles/Vol] 138 mmol/L 136-145 [facility] Work Phone: WBC (Bld) [#/Vol] 5.6 10*3/uL 4.4-11.0 [facility] Work Phone: Blood erythrocytes count (nu mber/volume)on 10-09-2021 RBC (Bld) [#/Vol] 3.32 10*6/uL 4.2-5.4 [facility]: Blood hemoglobin measurement (mass/volume)on 10-09-2021 Hemoglobin (Bld) [Mass/Vol] 10.3 g/dL 12.0-15.0 [facility] Work Phone: Blood lymphocytes/100 leukoc yteson 10-09-2021 Lymphocytes/100 WBC (Bld) 18.7 % 19-41 [facility] Work Phone: Blood monocytes/100 leukocyt eson 10-09-2021 Monocytes/100 WBC (Bld) 12.8 % 0-10 [facility] Work Phone: Blood platelet mean volumeon 10-09-2021 Platelet mean volume (Bld) [Entitic vol] 9.2 fL 6.2-12.0 [facility] Work Phone: Determination of erythrocyte mean corpuscular volume (MCV)on 10-09-2021 MCV (RBC) [Entitic vol] 93.4 fL 81-99 [facility] Work Phone: Hematocrit Auto (Bld) [Volum e fraction]on 10-09-2021 Hematocrit (Bld) [Volume fraction] 31.0 % 37-47 [facility] Work Phone: Laboratory - Chemistry and C hemistry - challengeon 10-09-2021 CO2 [Moles/Vol] 28.0 mmol/L 21.0-32.0 [facility] Work Phone: Urea nitrogen/Creatinine [Mass ratio] 21.6 mg/mg 10-20 [facility] Work Phone: [phone] Laboratory - Hematology and Cell countson 10-09-2021 Erythrocyte distribution width (RBC) [Entitic vol] 44.6 fL 35.1-43.9 [facility] Work Phone: [phone] Erythrocyte distribution width (RBC) [Ratio] 13.1 % 11.6-14.6 [facility] Work Phone: Immature granulocytes/100 WBC (Bld) 0.200 % 0.0-0.9 [facility] Work Phone: Comment on above: IG% - Immature Granu locytes (promyelocytes, myelocytes and metamyelocytes) > 1% indicates that a LEFT SHIFT is Present. MCH (RBC) [Entitic mass] 31.0 pg 27.0-32.0 [facility] Work Phone: Nucleated RBC/100 WBC (Bld) [Ratio] 0 % 0-5 [facility] Work Phone: [phone] MCHC Auto (RBC) [Mass/Vol]on 10-09-2021 MCHC (RBC) [Mass/Vol] 33.2 g/dL 32-36 [facility] Work Phone: No Panel Informationon 10-09 Estimated GFR (MDRD) Amer 91 mL/min >60 [facility] Work Phone: Comment on above: GFR Calc Estimated GFR (MDRD) Non-Af Amer 75 mL/min >60 [facility] Work Phone: Comment on above: Non- GFR Calc Platelets bldon 10-09-2021 Platelets (Bld) [#/Vol] 158 10*3/uL 150-450 [facility] Work Phone: [phone] Serum or plasma calcium lashawn urement (mass/volume)on 10-09-2021 Calcium [Mass/Vol] 8.5 mg/dL 8.5-10.1 [facility] Work Phone: [phone] Serum or plasma creatinine m easurement (mass/volume)on 10-09-2021 Creatinine [Mass/Vol] 0.79 mg/dL 0.55-1.02 [facility] Work Phone: Comment on above: The validity of the calculated GFR & GFRAA in patients over 70 years has not been determined. Clinical correlation is essential. Serum or plasma urea nitroge n measurement (mass/volume)on 10-09-2021 Urea nitrogen [Mass/Vol] 17 mg/dL 7-18 [facility] Work Phone: Thin prep Papanicolaou smear with manual screeningon 10-09-2021 Thin prep Papanicolaou smear with manual screening 1 5-15 [facility] Work Phone: [phone] Absolute lymphocyte counton 10-08-2021 Lymphocytes Auto (Unsp spec) [#/Vol] 0.89 10*3/uL 0.83-4.51 [facility] Work Phone: Basophil percentageon 2021 Basophils/100 WBC (Bld) 0.8 % 0-1 [facility] Work Phone: Chloride [Moles/Vol] 108 mmol/L 98-107 [facility] Work Phone: Eosinophils/100 WBC (Bld) 2.0 % 0-5 [facility] Work Phone: Glucose [Mass/Vol] 111 mg/dL 74-106 [facility] Work Phone: Comment on above: Fasting Glucose resu lt from 100 to 125 mg/dL suggests IMPAIRED HOMEOSTASIS per A.D.A. criteria. Neutrophils (Bld) [#/Vol] 4.3 10*3/uL 2.0-7.7 [facility] Work Phone: Neutrophils/100 WBC (Bld) 70.8 % 47-70 [facility] Work Phone: Potassium [Moles/Vol] 3.9 mmol/L 3.5-5.1 [facility] Work Phone: Sodium [Moles/Vol] 138 mmol/L 136-145 [facility] Work Phone: WBC (Bld) [#/Vol] 6.1 10*3/uL 4.4-11.0 [facility] Work Phone: Blood erythrocytes count (nu mber/volume)on 10-08-2021 RBC (Bld) [#/Vol] 3.54 10*6/uL 4.2-5.4 [facility] Work Phone: Blood hemoglobin measurement (mass/volume)on 10-08-2021 Hemoglobin (Bld) [Mass/Vol] 10.9 g/dL 12.0-15.0 [facility] Work Phone: Blood lymphocytes/100 leukoc yteson 10-08-2021 Lymphocytes/100 WBC (Bld) 14.6 % 19-41 [facility] Work Phone: Blood monocytes/100 leukocyt eson 10-08-2021 Monocytes/100 WBC (Bld) 11.5 % 0-10 [facility] Work Phone: Blood platelet mean volumeon 10-08-2021 Platelet mean volume (Bld) [Entitic vol] 9.4 fL 6.2-12.0 [facility] Work Phone: Determination of erythrocyte mean corpuscular volume (MCV)on 10-08-2021 MCV (RBC) [Entitic vol] 94.6 fL 81-99 [facility] Work Phone: Hematocrit Auto (Bld) [Volum e fraction]on 10-08-2021 Hematocrit (Bld) [Volume fraction] 33.5 % 37-47 [facility] Work Phone: INR in Blood by Coagulation assayon 10-08-2021 INR Coag (Bld) [Relative time] 2.4 {INR} [facility] Work Phone: Laboratory - Chemistry and C hemistry - challengeon 10-08-2021 CO2 [Moles/Vol] 24.0 mmol/L 21.0-32.0 [facility] Work Phone: Urea nitrogen/Creatinine [Mass ratio] 20.2 mg/mg 10-20 [facility] Work Phone: Laboratory - Coagulationon 0 10-08-2021 PT Coag (PPP) [Time] 25.5 s 11.7-14.9 [facility] Work Phone: Laboratory - Hematology and Cell countson 10-08-2021 Erythrocyte distribution width (RBC) [Entitic vol] 44.9 fL 35.1-43.9 [facility] Work Phone: [phone] Erythrocyte distribution width (RBC) [Ratio] 13.0 % 11.6-14.6 [facility] Work Phone: [phone] Immature granulocytes/100 WBC (Bld) 0.300 % 0.0-0.9 [facility] Work Phone: [phone] Comment on above: IG% - Immature Granu locytes (promyelocytes, myelocytes and metamyelocytes) > 1% indicates that a LEFT SHIFT is Present. MCH (RBC) [Entitic mass] 30.8 pg 27.0-32.0 [facility] Work Phone: [phone] Nucleated RBC/100 WBC (Bld) [Ratio] 0 % 0-5 [facility] Work Phone: [phone] MCHC Auto (RBC) [Mass/Vol]on 10-08-2021 MCHC (RBC) [Mass/Vol] 32.5 g/dL 32-36 [facility] Work Phone: No Panel Informationon 10-08 Estimated Creatinine Clearance Calc 35.26 ml/min [facility] Work Phone: [phone] Estimated GFR (MDRD) Amer 66 mL/min >60 [facility] Work Phone: [phone] Comment on above: GFR Calc Estimated GFR (MDRD) Non-Af Amer 54 mL/min >60 [facility] Work Phone: [phone] Comment on above: Non- GFR Calc Platelets bldon 10-08-2021 Platelets (Bld) [#/Vol] 158 10*3/uL 150-450 [facility] Work Phone: [phone] Serum or plasma calcium lashawn urement (mass/volume)on 10-08-2021 Calcium [Mass/Vol] 7.9 mg/dL 8.5-10.1 [facility] Work Phone: [phone] Serum or plasma creatinine m easurement (mass/volume)on 10-08-2021 Creatinine [Mass/Vol] 1.04 mg/dL 0.55-1.02 [facility] Work Phone: Comment on above: The validity of the calculated GFR & GFRAA in patients over 70 years has not been determined. Clinical correlation is essential. Serum or plasma urea nitroge n measurement (mass/volume)on 10-08-2021 Urea nitrogen [Mass/Vol] 21 mg/dL 7-18 [facility] Work Phone: Thin prep Papanicolaou smear with manual screeningon 10-08-2021 Thin prep Papanicolaou smear with manual screening 6 5-15 [facility] Work Phone: Basophil percentageon 2021 Bilirubin [Mass/Vol] 0.60 mg/dL 0.20-1.00 [facility] Work Phone: Comment on above: For patients on eltr ombopag therapy, use of Dimension [place] TBIL is not recommended. Protein [Mass/Vol] 5.6 g/dL 6.4-8.2 [facility] Work Phone: Laboratory - Chemistry and C hemistry - challengeon 10-06-2021 ALP [Catalytic activity/Vol] 67 U/L 45-117 [facility] Work Phone: [phone] ALT [Catalytic activity/Vol] 25 U/L 13-56 [facility] Work Phone: [phone] Globulin (S) [Mass/Vol] 2.7 g/dL 2.2-4.2 [facility] Work Phone: [phone] Serum or plasma albumin lashawn urement (mass/volume)on 10-06-2021 Albumin [Mass/Vol] 2.9 g/dL 3.2-5.0 [facility] Work Phone: [phone] Serum or plasma albumin/glob ulin mass ratioon 10-06-2021 Albumin/Globulin [Mass ratio] 1.1 {ratio} 0.9-2.4 [facility] Work Phone: Thin prep Papanicolaou smear with manual screeningon 10-06-2021 Thin prep Papanicolaou smear with manual screening 16 U/L 15-37 [facility] Work Phone: Absolute lymphocyte counton 10-05-2021 Lymphocytes Auto (Unsp spec) [#/Vol] 1.20 10*3/uL 0.83-4.51 [facility] Work Phone: Basophil percentageon 2021 Basophils/100 WBC (Bld) 1.1 % 0-1 [facility] Work Phone: Bilirubin [Mass/Vol] 0.90 mg/dL 0.20-1.00 [facility] Work Phone: Comment on above: For patients on eltr ombopag therapy, use of Dimension [place] TBIL is not recommended. Chloride [Moles/Vol] 111 mmol/L 98-107 [facility] Work Phone: Eosinophils/100 WBC (Bld) 2.8 % 0-5 [facility] Work Phone: Glucose [Mass/Vol] 121 mg/dL 74-106 [facility] Work Phone: Comment on above: Fasting Glucose resu lt from 100 to 125 mg/dL suggests IMPAIRED HOMEOSTASIS per A.D.A. criteria. Neutrophils (Bld) [#/Vol] 3.6 10*3/uL 2.0-7.7 [facility] Work Phone: Neutrophils/100 WBC (Bld) 64.5 % 47-70 [facility] Work Phone: Potassium [Moles/Vol] 3.3 mmol/L 3.5-5.1 [facility] Work Phone: Protein [Mass/Vol] 6.3 g/dL 6.4-8.2 [facility] Work Phone: Sodium [Moles/Vol] 142 mmol/L 136-145 [facility] Work Phone: WBC (Bld) [#/Vol] 5.6 10*3/uL 4.4-11.0 [facility] Work Phone: Blood erythrocytes count (nu mber/volume)on 10-05-2021 RBC (Bld) [#/Vol] 3.99 10*6/uL 4.2-5.4 [facility] Work Phone: Blood hemoglobin measurement (mass/volume)on 10-05-2021 Hemoglobin (Bld) [Mass/Vol] 12.4 g/dL 12.0-15.0 [facility] Work Phone: [phone] Blood lymphocytes/100 leukoc yteson 10-05-2021 Lymphocytes/100 WBC (Bld) 21.3 % 19-41 [facility] Work Phone: [phone] Blood monocytes/100 leukocyt eson 10-05-2021 Monocytes/100 WBC (Bld) 10.1 % 0-10 [facility] Work Phone: Blood platelet mean volumeon 10-05-2021 Platelet mean volume (Bld) [Entitic vol] 8.9 fL 6.2-12.0 [facility] Work Phone: Determination of erythrocyte mean corpuscular volume (MCV)on 10-05-2021 MCV (RBC) [Entitic vol] 90.5 fL 81-99 [facility] Work Phone: Hematocrit Auto (Bld) [Volum e fraction]on 10-05-2021 Hematocrit (Bld) [Volume fraction] 36.1 % 37-47 [facility] Work Phone: INR in Blood by Coagulation assayon 10-05-2021 INR Coag (Bld) [Relative time] 3.1 {INR} [facility] Work Phone: Laboratory - Chemistry and C hemistry - challengeon 10-05-2021 ALP [Catalytic activity/Vol] 73 U/L 45-117 [facility] Work Phone: ALT [Catalytic activity/Vol] 28 U/L 13-56 [facility] Work Phone: CO2 [Moles/Vol] 25.0 mmol/L 21.0-32.0 [facility] Work Phone: Globulin (S) [Mass/Vol] 3.0 g/dL 2.2-4.2 [facility] Work Phone: [phone] Magnesium [Mass/Vol] 1.8 mg/dL 1.6-2.6 [facility] Work Phone: [phone] Urea nitrogen/Creatinine [Mass ratio] 23.2 mg/mg 10-20 [facility] Work Phone: [phone] Laboratory - Coagulationon 0 10-05-2021 PT Coag (PPP) [Time] 31.5 s 11.7-14.9 [facility] Work Phone: [phone] Laboratory - Hematology and Cell countson 10-05-2021 Erythrocyte distribution width (RBC) [Entitic vol] 42.7 fL 35.1-43.9 [facility] Work Phone: [phone] Erythrocyte distribution width (RBC) [Ratio] 13.0 % 11.6-14.6 [facility] Work Phone: [phone] Immature granulocytes/100 WBC (Bld) 0.200 % 0.0-0.9 [facility] Work Phone: [phone] Comment on above: IG% - Immature Granu locytes (promyelocytes, myelocytes and metamyelocytes) > 1% indicates that a LEFT SHIFT is Present. MCH (RBC) [Entitic mass] 31.1 pg 27.0-32.0 [facility] Work Phone: [phone] Nucleated RBC/100 WBC (Bld) [Ratio] 0 % 0-5 [facility] Work Phone: [phone] MCHC Auto (RBC) [Mass/Vol]on 10-05-2021 MCHC (RBC) [Mass/Vol] 34.3 g/dL 32-36 [facility] Work Phone: [phone] No Panel Informationon 10-05 Estimated Creatinine Clearance Calc 38.60 ml/min [facility] Work Phone: [phone] Estimated GFR (MDRD) Amer 73 mL/min >60 [facility] Work Phone: [phone] Comment on above: GFR Calc Estimated GFR (MDRD) Non-Af Amer 61 mL/min >60 [facility] Work Phone: Comment on above: Non- GFR Calc Platelets bldon 10-05-2021 Platelets (Bld) [#/Vol] 175 10*3/uL 150-450 [facility] Work Phone: Serum or plasma albumin lashawn urement (mass/volume)on 10-05-2021 Albumin [Mass/Vol] 3.3 g/dL 3.2-5.0 [facility] Work Phone: Serum or plasma albumin/glob ulin mass ratioon 10-05-2021 Albumin/Globulin [Mass ratio] 1.1 {ratio} 0.9-2.4 [facility] Work Phone: Serum or plasma calcium lashawn urement (mass/volume)on 10-05-2021 Calcium [Mass/Vol] 8.5 mg/dL 8.5-10.1 [facility] Work Phone: Serum or plasma creatinine m easurement (mass/volume)on 10-05-2021 Creatinine [Mass/Vol] 0.95 mg/dL 0.55-1.02 [facility] Work Phone: Comment on above: The validity of the calculated GFR & GFRAA in patients over 70 years has not been determined. Clinical correlation is essential. Serum or plasma urea nitroge n measurement (mass/volume)on 10-05-2021 Urea nitrogen [Mass/Vol] 22 mg/dL 7-18 [facility] Work Phone: Thin prep Papanicolaou smear with manual screeningon 10-05-2021 Thin prep Papanicolaou smear with manual screening 17 U/L 15-37 [facility] Work Phone: Thin prep Papanicolaou smear with manual screening 6 5-15 [facility] Work Phone: CNPNon 09-25-2021 CNPN Telephone ([facility]) QUINCYGLORIA ([id number]) 1940 F CHT Date Time Provider Department 09/25/21 [facility] [...] back instructions and verbalized understanding. Aniya Shankar [facility] Allergies As of Date: 09/25/2021 Noted Allergy Reaction ZOLOFT (SERTRALINE) 10/14/2019 14 - Other: See Comments Comments: palpitations Date Reviewed: 08/05/2021 Reviewed by: Randi Lee - Fully Assessed Reason for Visit: Results [95] Cmt: inr Visit Diagnoses:meterman current use of anticoagulant [Z79.01] Paroxysmal atrial fibrillation (HCC) [I48.0] Order(s):PROTHROMBIN TIME/PT [SQPT] Order #: [id number] Prescriptions as of 09/25/2021 - gabapentin (NEURONTIN) [...] mg by mouth once daily. - Biotin-Silicon Vrpe-W-Zebbpdzh 5,000 mcg-100 mg- 50 mg tab Take 1 tablet by mouth once daily. - Cholecalciferol, Vitamin D3, 1,000 unit cap Take 1,000 Units by mouth once daily. 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 Normal [facility] - Coagulationon 0 09-25-2021 INR Coag (Bld) [Relative time] 3.4 {INR} [facility] Comment on above: Critical Value > 4.0 Whole blood prothrombin time on 09-25-2021 PT Coag (Bld) [Time] 38.0 s 11.7-14.9 [facility] Work Phone: CNPElizabeth 08-29-2021 CNPN Telephone ([place]) GLORIA MATHEW ([id number]) 1940 F CHT Date Time Provider Department 08/29/21 [facility] During your visit today, we recorded the [...] Assessed Reason for Visit: Coumadin/INR [1207] Visit Diagnoses:halfway current use of anticoagulant [Z79.01] Paroxysmal atrial fibrillation (HCC) [I48.0] Order(s):PROTHROMBIN TIME/PT [SQPT] Order #: [id number] Prescriptions as of 08/29/2021 - gabapentin (NEURONTIN) [...] mg by mouth once daily. - Biotin-Silicon Jagt-A-Mqklgbls 5,000 mcg-100 mg- 50 mg tab Take 1 tablet by mouth once daily. - Cholecalciferol, Vitamin D3, 1,000 unit cap Take 1,000 Units by mouth once daily. 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/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] 05/20/2021 Obstructive sleep apnea syndrome [G47.33] 05/20/2021 Neuropathy [G62.9] 05/20/2021 Anticoagulated on warfarin [Z79.01] 05/20/2021 Encounter Status:Closed by MELLISA DUTTA on 08/29/21 Normal [facility] - Coagulationon 0 08-28-2021 INR Coag (Bld) [Relative time] 2.4 {INR} [facility] Work Phone: Comment on above: Critical Value > 4.0 Whole blood prothrombin time on 08-28-2021 PT Coag (Bld) [Time] 28.2 s 11.7-14.9 [facility] Work Phone: CNOVon 08-05-2021 CNOV Office Visit (UCWSTR ) GLORIA MATHEW ([id number]) 1940 F [facility] Date Time Provider Department 08/05/21 10:15 AM LUCÍA BARRAZA UCWSTR During your visit today, we recorded the following information about you: Temperature Pulse Respiration Blood pressure 97.2 degrees 84/minute 16/minute 110/68 Weight 70.3 kg Lucía Barraza APRN.[facility] 08/05/2021 10:27 AM Signed Subjective Patient came in with complaints of being exposed to covid Five days ago. Patient does not have any symptoms at this time. Had covid in April of 2020 and is vaccinated. The history is provided by the patient. No park interpreter was used. Review of Systems Constitutional: Negative. 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 Biotin-Silicon Usgg-K-Aydrmpqi 5,000 mcg-100 mg- 50 mg tab Take [...] No - (more content not included)... Normal [facility] 07-30-2021 CNPN Telephone (AGINTMAC) GLORIA MATHEW ([id number]) 1940 F T Date Time Provider Department 07/30/21 [facility] [...] Left detailed message for patient. Mellisa Dutta [facility] Allergies As of Date: 07/30/2021 Noted Allergy Reaction ZOLOFT (SERTRALINE) 10/14/2019 14 - Other: See Comments Comments: palpitations Date Reviewed: 07/04/2021 Reviewed by: Jean-Pierre Perez MD - Fully Assessed Reason for Visit: Coumadin/INR [1207] Visit Diagnoses:halfway current use of anticoagulant [Z79.01] Paroxysmal atrial fibrillation (HCC) [I48.0] Order(s):PROTHROMBIN TIME/PT [SQPT] Order #: [id number] Prescriptions as of 08/07/2021 - gabapentin (NEURONTIN) [...] mg by mouth once daily. - Biotin-Silicon Ixii-N-Webykuea 5,000 mcg-100 mg- 50 mg tab Take 1 tablet by mouth once daily. - Cholecalciferol, Vitamin D3, 1,000 unit cap Take 1,000 Units by mouth once daily. 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*05/20/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] 05/20/2021 Obstructive sleep apnea syndrome [G47.33] 05/20/2021 Neuropathy [G62.9] 05/20/2021 Anticoagulated on warfarin [Z79.01] 05/20/2021 Encounter Status:Closed by RENNY MORRIS on 4/6/22 Normal [facility] - Coagulationon 0 07-29-2021 INR Coag (Bld) [Relative time] 2.9 {INR} [facility] Work Phone: Comment on above: Critical Value > 4.0 PT panel Coag (PPP)on 2021 INR Coag (Bld) [Relative time] 2.9 {INR} [facility] Whole blood prothrombin time on 07-29-2021 PT Coag (Bld) [Time] 32.9 s 11.7-14.9 [facility] Work Phone: CNPNon 07-17-2021 CNPN Telephone (AGINTMAC) GLORIA MATHEW ([id number]) 1940 F T Date Time Provider Department 07/17/21 MELLISA DUTTA During your visit today, we recorded the following information about you: Mellisa Dutta RPh 07/17/2021 9:51 AM Signed Patient was due to have INR drawn in lab on 07/01. We have not received results. Please remind patient to check INR. Mellisa Dutta [facility] Renny Morris LPN 07/17/2021 10:53 [...] mg by mouth once daily. - Biotin-Silicon Nnyq-P-Zxpklryj 5,000 mcg-100 mg- 50 mg tab Take 1 tablet by mouth once daily. - Cholecalciferol, Vitamin D3, 1,000 unit cap Take 1,000 Units by mouth once daily. 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/20/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] 05/20/2021 Obstructive sleep apnea syndrome [G47.33] 05/20/2021 Neuropathy [G62.9] 05/20/2021 Anticoagulated on warfarin [Z79.01] 05/20/2021 Encounter Status:Closed by MELLISA DUTTA on 07/17/21 [facility] CNOVanjelica 07-04-2021 CNOV Office Visit (AGCARDHWW) GLORIA MATHEW ([id number]) 1940 F T Date Time Provider Department 07/04/21 8:00 AM JEAN-PIERRE PEREZ AGCARDHWW During your visit today, we recorded the following information about you: Pulse Respiration Blood pressure Weight 84/minute 18/minute 110/70 71.7 kg Height 1.575 m Jean-Pierre Perez MD 07/04/2021 8:27 AM Signed Chief Complaint No chief complaint on file. History of Present Illness: Golria Mathew is a 80 year old female here for follow-up of valve disease and A. fib. She has had recurrent A. fib over the last year and we did refer her to the EP service. She had a cardioversion done down in [place]. She ended up having AV node ablation and permanent dual-chamber pacer placed in May. She is now living down in [place]. 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 Lechuga - BREAST BIOPSY - CARDIOVERSION 05/27/2018 - CARDIOVERSION 01/01/2021 - CHEST X-RAY 12/31/2020 - CHOLECYSTECTOMY HX 10/02/2011 - ECHO TRANSESOPHAGEAL 05/27/2018 - EKG 01/01/2021 - HYSTERECTOMY HX MARYELLEN/BLO - ICAR CATHETER ABLATION ATRIOVENTR NODE FUNCTION 05/20/2021 AV node radiofrequency catheter ablation; indication: drug refractory atrial fibrillation; [facility] Dr. Lechuga - LEG SURGERY HX [...] - pramipexo (more content not included)... Normal [facility] - Coagulationon 0 07-01-2021 INR Coag (Bld) [Relative time] 2.3 {INR} [facility] Work Phone: Comment on above: Critical Value > 4.0 Whole blood prothrombin time on 07-01-2021 PT Coag (Bld) [Time] 26.9 s 11.9-14.4 [facility] Work Phone: CNPElizabeth 06-17-2021 CNPN Telephone ([employer]) GLORIA MATHEW ([id number]) 1940 F [facility] Date Time Provider Department 06/17/21 [facility] During your visit today, we recorded the following information about you: Ligia Bloom LPN 06/17/2021 2:31 PM Signed Pt LVM with her in home test result. INR 2.5. CALLIE Abad [facility] 06/17/2021 2:42 PM Signed Referred [...] Visit: Coumadin/INR [1207] Cmt: result 2.5 Visit Diagnoses:meterman current use of anticoagulant [Z79.01] Paroxysmal atrial fibrillation (HCC) [I48.0] Order(s):PROTHROMBIN TIME/PT [SQPT] Order #: [id number] Prescriptions as of 06/17/2021 - acetaminophen (TYLENOL) [...] mg by mouth once daily. - Biotin-Silicon Tbqn-O-Dhyuvvos 5,000 mcg-100 mg- 50 mg tab Take 1 tablet by mouth once daily. - Cholecalciferol, Vitamin D3, 1,000 unit cap Take 1,000 Units by mouth once daily. 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 Normal [facility] Absolute lymphocyte counton 06-06-2021 Lymphocytes Auto (Unsp spec) [#/Vol] 1.35 10*3/uL 0.83-4.51 [facility] Work Phone: Basophil percentageon 2021 Basophils/100 WBC (Bld) 1.7 % 0-1 [facility] Work Phone: Eosinophils/100 WBC (Bld) 3.0 % 0-5 [facility] Work Phone: Neutrophils (Bld) [#/Vol] 4.7 10*3/uL 2.0-7.7 [facility] Work Phone: Neutrophils/100 WBC (Bld) 65.9 % 47-70 [facility] Work Phone: WBC (Bld) [#/Vol] 7.1 10*3/uL 4.4-11.[address] [facility] [facility] Work Phone: Blood erythrocytes count (nu mber/volume)on 06-06-2021 RBC (Bld) [#/Vol] 4.39 10*6/uL 4.2-5.4 [facility] Work Phone: Blood hemoglobin measurement (mass/volume)on 06-06-2021 Hemoglobin (Bld) [Mass/Vol] 13.9 g/dL 12.0-15.0 [facility] Work Phone: Blood lymphocytes/100 leukoc yteson 06-06-2021 Lymphocytes/100 WBC (Bld) 19.1 % 19-41 [facility] Work Phone: Blood monocytes/100 leukocyt eson 06-06-2021 Monocytes/100 WBC (Bld) 9.9 % 0-10 [facility] Work Phone: Blood platelet mean volumeon 06-06-2021 Platelet mean volume (Bld) [Entitic vol] 8.6 fL 6.2-12.0 [facility] Work Phone: Determination of erythrocyte mean corpuscular volume (MCV)on 06-06-2021 MCV (RBC) [Entitic vol] 92.7 fL 81-99 [facility] Work Phone: [phone] Hematocrit Auto (Bld) [Volum e fraction]on 06-06-2021 Hematocrit (Bld) [Volume fraction] 40.7 % 37-47 [facility] Work Phone: Laboratory - Hematology and Cell countson 06-06-2021 Erythrocyte distribution width (RBC) [Entitic vol] 44.4 fL 35.1-43.9 [facility] Work Phone: [phone] Erythrocyte distribution width (RBC) [Ratio] 13.2 % 11.6-14.6 [facility] Work Phone: Immature granulocytes/100 WBC (Bld) 0.400 % 0.0-0.9 [facility] Work Phone: Comment on above: IG% - Immature Granu locytes (promyelocytes, myelocytes and metamyelocytes) > 1% indicates that a LEFT SHIFT is Present. MCH (RBC) [Entitic mass] 31.7 pg 27.0-32.0 [facility] Work Phone: Nucleated RBC/100 WBC (Bld) [Ratio] 0 % 0-5 [facility] Work Phone: [phone] MCHC Auto (RBC) [Mass/Vol]on 06-06-2021 MCHC (RBC) [Mass/Vol] 34.2 g/dL 32-36 [facility] Work Phone: Platelets bldon 06-06-2021 Platelets (Bld) [#/Vol] 236 10*3/uL 150-534 [facility] Work Phone: Jose 05-31-2021 CNPN Telephone ([employer]) GLORIA MATHEW ([id number]) 1940 F CHT Date Time Provider Department 05/31/21 [facility] During your visit today, we recorded the following information about you: Ligia Bloom LPN 05/31/2021 1:20 PM Signed Pt LVM with her in home test result. INR 2.4 CALLIE Abad [facility] 06/03/2021 3:38 PM Signed Referred [...] at 2.9. She was then admitted to [facility] 05/06-05/09. She held warfarin in preparation for [...] current dose. Left detailed message. Mellisa Dutta [facility] Allergies As of Date: 05/31/2021 Noted Allergy Reaction ZOLOFT (SERTRALINE) 10/14/2019 14 - Other: See Comments Comments: palpitations Date Reviewed: 05/21/2021 Reviewed by: Priya Schmitz RN - Fully Assessed Reason for Visit: Coumadin/INR [1207] Cmt: results Visit Diagnoses:halfway current use of anticoagulant [Z79.01] Paroxysmal atrial fibrillation (HCC) [I48.0] Order(s):PROTHROMBIN TIME/PT [SQPT] Order #: [id number] Prescriptions as of 06/03/2021 - acetaminophen (TYLENOL) [...] mg by mouth once daily. - Biotin-Silicon Txlv-P-Leydidqb 5,000 mcg-100 mg- 50 mg tab Take 1 tablet by mouth once daily. - Cholecalciferol, Vitamin D3, 1,000 unit cap Take 1,000 Units by mouth once daily. 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 Normal [facility] - Coagulationon 0 05-31-2021 INR Coag (Bld) [Relative time] 2.4 {INR} [facility] Work Phone: Comment on above: Critical Value > 4.0 Whole blood prothrombin time on 05-31-2021 PT Coag (Bld) [Time] 27.4 s 11.9-14.4 [facility] Work Phone: Jose 05-28-2021 CNPN Telephone (PODCCP) GLORIA MATHEW ([id number]) 1940 F CHT Date Time Provider Department 05/28/21 LUISA LYON During your visit today, we recorded the following information about you: Luisa Lyon RN 05/28/2021 11:20 AM Signed PATIENT INFORMATION Record ID: [id number] Patient Name: Gloria Jeffersyder [facility]: [facility] [place] Attending: Adalid Duvall Center: General Radiology INSTRUCTIONS All Clear SN to remind patient of next upcoming appointment date, time, location All Clear All Clear All Clear SURVEY INFORMATION Medical/Nurse Campaign Advisor: Luisa Lyon 1. Your discharge instructions are [...] Reason for Visit: Follow Up Phone Call [[phone]] Cmt: All Clear. Prescriptions as of 05/28/2021 [...] daily dose of 1,200 mg - fexofenadine (RBIGITTE) 180 mg tablet Take 180 mg by [...] mg by mouth once daily. - Biotin-Silicon Twmk-L-Qldwszjp 5,000 mcg-100 mg- 50 mg tab Take 1 tablet by mouth once daily. - Cholecalciferol, Vitamin D3, 1,000 unit cap Take 1,000 Units by mouth once daily. 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*05/20/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] 05/20/2021 Obstructive sleep apnea syndrome [G47.33] 05/20/2021 Neuropathy [G62.9] 05/20/2021 Anticoagulated on warfarin [Z79.01] 05/20/2021 Encounter Status:Closed by LUISA LYON on 05/28/21 [facility] Jose 05-24-2021 REBEKA Telephone ([employer]words) GLORIA MATHEW ([id number]) 1940 F CHT Date Time Provider Department 05/24/21 [facility] During your visit today, we recorded the following information about you: Ligia Bloom LPN 05/24/2021 2:07 PM Signed Pt LVM with her in home test result.INR 1.5. Pt was in hospital earlier this week for pacer implant. Ligia Bloom LPN Mellisa Dutta, [facility] 05/24/2021 2:31 PM Signed Referred [...] at 2.9. She was then admitted to [facility] 05/06-05/09. She held warfarin in preparation for [...] back instructions and verbalized understanding. Mellisa Dutta [facility] Allergies As of Date: 05/24/2021 Noted Allergy Reaction ZOLOFT (SERTRALINE) 10/14/2019 14 - Other: See Comments Comments: palpitations Date Reviewed: 05/21/2021 Reviewed by: Priya Schmitz RN - Fully Assessed Reason for Visit: Coumadin/INR [1207] Visit Diagnoses:halfway current use of anticoagulant [Z79.01] Paroxysmal atrial fibrillation (HCC) [I48.0] Order(s):PROTHROMBIN TIME/PT [SQPT] Order #: [id number] Prescriptions as of 05/24/2021 - acetaminophen (TYLENOL) [...] mg by mouth once daily. - Biotin-Silicon Zbrf-A-Sqyyzaiq 5,000 mcg-100 mg- 50 mg tab Take 1 tablet by mouth once daily. - Cholecalciferol, Vitamin D3, 1,000 unit cap Take 1,000 Units by mouth once daily. 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 [facility] ALLIED HEALTHon 05-21-2021 ALLIED HEALTH HNO ID: [id number] Author: Randi Gomez RT(R) Service: Radiology Author [...] RT Dyan(R) May 21, 2021 7:38 AM [facility] ANES POSTPROC EVALon 022 ANES POSTPROC EVAL HNO ID: [id number] Author: Todd Rodriguez MD Service: Anesthesiology Author Type: Physician Type: Anesthesia Postprocedure Evaluation Filed: 05/21/2021 10:20 AM Note Text: POST ANESTHESIA EVALUATION NOTE : 1940 Procedure Summary Date: 05/20/21 Room / Location: [place] EP 01 / EP LAB Anesthesia Start: [...] May 21, 2021 TIME: 10:19 AM CSN: [id number] Normal [facility] CBC panel Auto (Bld)on 05-21 Erythrocyte distribution width (RBC) [Ratio] 12.8 % Normal 11.5-15.0 [facility] Comment on above: Order Comment: Speci men Type: BLOOD SPECIMEN Performed By: #### 5 8410-2 ####[facility] [id number] [address] Hematocrit (Bld) [Volume fraction] 36.4 % Normal 36.0-46.0 [facility] Comment on above: Order Comment: Speci men Type: BLOOD SPECIMEN Performed By: #### 5 8410-2 ####[facility] [id number] [address] Hemoglobin (Bld) [Mass/Vol] 12.3 g/dL Normal 11.5-15.5 [facility] Comment on above: Order Comment: Speci men Type: BLOOD SPECIMEN Performed By: #### 5 8410-2 ####[facility] [id number] [address] MCH (RBC) [Entitic mass] 30.8 pg Normal 26.0-34.0 [facility] Comment on above: Order Comment: Speci men Type: BLOOD SPECIMEN Performed By: #### 5 8410-2 ####[facility] [id number] [address] MCHC (RBC) [Mass/Vol] 33.8 g/dL Normal 30.5-36.0 [facility] Comment on above: Order Comment: Speci men Type: BLOOD SPECIMEN Performed By: #### 5 8410-2 ####[facility] [id number] [address] MCV (RBC) [Entitic vol] 91.2 fL Normal 80.0-100.0 [facility] Comment on above: Order Comment: Speci men Type: BLOOD SPECIMEN Performed By: #### 5 8410-2 ####[facility] [id number] [address] Nucleated RBC (Bld) [#/Vol] 10*3/uL Normal <0.01 [facility] Comment on above: Order Comment: Speci men Type: BLOOD SPECIMEN Performed By: #### 5 8410-2 ####[facility]ORYCLIA [id number] [place] [address] [facility] Platelet mean volume (Bld) [Entitic vol] 9.0 fL Normal 9.0-12.7 [facility] Comment on above: Order Comment: Speci men Type: BLOOD SPECIMEN Performed By: #### 5 8410-2 ####[facility] [id number] [place] [id number] [facility] Platelets (Bld) [#/Vol] 160 10*3/uL Normal 150-400 [facility] Comment on above: Order Comment: Speci men Type: BLOOD SPECIMEN Performed By: #### 5 8410-2 ####[facility]ORYCLIA [id number] [place] [id number] [facility] RBC (Bld) [#/Vol] 3.99 10*6/uL Normal 3.90-5.20 [facility] Comment on above: Order Comment: Speci men Type: BLOOD SPECIMEN Performed By: #### 5 8410-2 ####[facility]CL[facility] [id number] [place] [id number] [facility] WBC (Bld) [#/Vol] 6.63 10*3/uL Normal 3.70-11.00 [facility] Comment on above: Order Comment: Speci men Type: BLOOD SPECIMEN Performed By: #### 5 8410-2 ####[facility]ORYCLIA [id number] [place] [id number] [facility] CNDSon 05-21-2021 CNDS HNO ID: [id number] Author: Adalid Duvall DO Service: Hospital Medicine [...] Problem: Presence of cardiac pacemaker Active Problems: halfway current use of anticoagulant [Z79.01] Atrial fibrillation [...] call for appointment?: Yes Desmond Acosta MD [phone] [address] [facility] [place] [address] [facility] [address] PCP Requested Referral Follow-Up Appointment Follow up with PCP and coumadin clinic to ensure INR is 2-3 When: In 1 week Patient/Parents to call for appointment?: Yes Saroj Avelar MD [phone] [facility] [address] PCP Requested Referral Follow-Up Appointment With: Coumadin [...] with pac (more content not included)... Normal [facility] Jose 05-21-2021 REBEKA Telephone (AGCARDPOB ) QUINCYGLORIA Merly ([id number]) 1940 F T Date Time Provider Department 05/21/21 MERRITT ROUSE During your visit today, we recorded the following information about you: Vicky Ruiz RN 05/22/2021 9:43 AM Signed Merritt Rouse APRN.ORDER DESK CLERK You 17 hours ago (4:16 PM) DL [...] elevated temperatures. Patient will be following in [facility] and has appointment with [facility] next week. Vicky Ruiz RN [...] mg by mouth once daily. - Biotin-Silicon Gfcw-Z-Excmjjbt 5,000 mcg-100 mg- 50 mg tab Take 1 tablet by mouth once daily. - Cholecalciferol, Vitamin D3, 1,000 unit cap Take 1,000 Units by mouth once daily. 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 (can increase bleed risk, but [...] patient received education: No Signature: Kourtney Tineo [facility] Pager/Extension: Ext # [phone] Normal [facility] Comprehensive metabolic 2000 panelon 05-21-2021 Albumin [Mass/Vol] 3.3 g/dL Low 3.9-4.9 [facility] Comment on above: Order Comment: Speci men Type: BLOOD SPECIMEN Performed By: #### 2 432-8, #### [facility] CLIA [id number] [address] ALP [Catalytic activity/Vol] 71 U/L Normal 34-123 [facility] Comment on above: Order Comment: Speci men Type: BLOOD SPECIMEN Performed By: #### 2 4322-, #### [facility] CLIA [id number] [address] ALT With P-5'-P [Catalytic activity/Vol] 20 U/L Normal 7-38 [facility] Comment on above: Order Comment: Speci men Type: BLOOD SPECIMEN Performed By: #### 2 8, #### [facility] CLIA [id number] [address] Anion gap [Moles/Vol] 9 mmol/L Normal 9-18 [facility] Comment on above: Order Comment: Speci men Type: BLOOD SPECIMEN Performed By: #### 2 4328, #### [facility] CLIA [id number] [address] AST With P-5'-P [Catalytic activity/Vol] 20 U/L Normal 13-35 [facility] Comment on above: Order Comment: Speci men Type: BLOOD SPECIMEN Performed By: #### 2 4322-12, #### [facility] CLIA [id number] [address] Bilirubin [Mass/Vol] 1.0 mg/dL Normal 0.2-1.3 [facility] Comment on above: Order Comment: Speci men Type: BLOOD SPECIMEN Performed By: #### 2 4322-12, #### [facility] CLIA [id number] [address] Calcium [Mass/Vol] 8.8 mg/dL Normal 8.5-10.2 [facility] Comment on above: Order Comment: Speci men Type: BLOOD SPECIMEN Performed By: #### 2 4322-12, #### [facility] CLIA [id number] [address] STATES OF [facility] Chloride [Moles/Vol] 108 mmol/L High 97-105 [facility] Comment on above: Order Comment: Speci men Type: BLOOD SPECIMEN Performed By: #### 2 4322-12, #### [facility] CLIA [id number] [address] [place] [facility] CO2 [Moles/Vol] 24 mmol/L Normal 22-30 [facility] Comment on above: Order Comment: Speci men Type: BLOOD SPECIMEN Performed By: #### 2 4322-12, #### [facility] CLIA [id number] [address] [place] Creatinine [Mass/Vol] 0.96 mg/dL Normal 0.58-0.96 [facility] Comment on above: Order Comment: Speci men Type: BLOOD SPECIMEN Performed By: #### 2 4322-12, #### [facility] CLIA [id number] [address] [place] GFR/1.73 sq M.predicted MDRD (S/P/Bld) [Vol rate/Area] mL/min/{1.73_m2} Normal [facility] Comment on above: Order [...] By: #### 2 43207-09, #### [facility] CLIA [id number] 1 [place] [address] [place] Glucose [Mass/Vol] 88 mg/dL Normal 74-99 [facility] Comment on above: Order Comment: Speci men Type: BLOOD SPECIMEN Result Comment: The [place] Diabetes Association (ADA) provides guidance for cutoff [...] Standards of Medical Care in Diabetes 2016, [place] [employer]. Diabetes Care. 2016.39(Suppl 1). Performed By: #### 2 4323-, #### [facility] CLIA [id number] 1 [place] [address] [place] Potassium [Moles/Vol] 4.1 mmol/L Normal 3.7-5.1 [facility] Comment on above: Order Comment: Speci men Type: BLOOD SPECIMEN Performed By: #### 2 4322-12, #### [facility] CLIA [id number] [address] Protein [Mass/Vol] 5.4 g/dL Low 6.3-8.0 [facility] Comment on above: Order Comment: Speci men Type: BLOOD SPECIMEN Performed By: #### 2 4328, #### [facility] CLIA [id number] [address] Sodium [Moles/Vol] 141 mmol/L Normal 136-144 [facility] Comment on above: Order Comment: Speci men Type: BLOOD SPECIMEN Performed By: #### 2 43207-09, #### [facility] CLIA [id number] [address] Urea nitrogen [Mass/Vol] 15 mg/dL Normal 7-21 [facility] Comment on above: Order Comment: Speci men Type: BLOOD SPECIMEN Performed By: #### 2 4322-12, #### [facility] CLIA [id number] [address] Magnesium SerPl-mCncon 05-21 Magnesium [Mass/Vol] 1.7 mg/dL Normal 1.7-2.3 [facility] Comment on above: Order Comment: Speci men Type: BLOOD SPECIMEN Performed By: #### 2 4328, #### [facility] CLIA [id number] [address] NURSING PROGon 05-21-2021 NURSING PROG HNO ID: [id number] Author: Priya Schmitz RN Service: Nursing Author [...] all personal belongings and discharge instructions. Normal [facility] PT panel Coag (PPP)on 2021 INR Coag (PPP) [Relative time] 1.1 {INR} Normal 0.9-1.3 [facility] Comment on above: Order Comment: Speci men Type: BLOOD SPECIMEN Result Comment: Amita min K Antagonist (VKA) Therapeutic Range: INR 2 to 3 (Target INR of 2.5) Note: For patients treated with VKA drugs, such as warfarin, the [place] [employer] 2012 Guideline recommends [...] [phone] Performed By: #### 3 4528-0 #### [facility] CLIA [id number] [address] PT Coag (PPP) [Time] 12.1 s Normal 9.7-13.0 [facility] Comment on above: Order Comment: Speci men Type: BLOOD SPECIMEN Performed By: #### 3 4528-0 #### [facility] CLIA [id number] [address] XR CHEST 2V FRONTAL/LATon XR CHEST [...] appendage clip. Intact median sternotomy wires. Overlying carton catcher leads. Lungs and pleura: No pneumothorax. Trace bilateral pleural effusions. Lungs are otherwise clear. Cardiomediastinal silhouette: Widening of the superior mediastinum appears to be due to tortuous brachiocephalic vessels and is stable since 2019 chest x-ray. Bones and soft tissues: Unremarkable. IMPRESSION: Status post left-sided cardiac pacing device. Leads in expected position. No pneumothorax. Termite Helper: PSCB Transcribe Date/Time: May 21 2021 7:57A Dictated by : TRINITY AMADOR MD This examination was interpreted and the report reviewed and electronically signed by: TRINITY AMADOR MD on May 21 2021 7:59AM EST [id number] Normal [facility] ANES PRE-OPon 05-20-2021 ANES PRE-OP HNO ID: [id number] Author: Jaciel Hines MD Service: Anesthesiology Author [...] mg by mouth once daily. - Biotin-Silicon Qfmm-M-Qhbzdaac 5,000 mcg-100 mg- 50 mg tab Take 1 tablet by mouth once daily. - Cholecalciferol, Vitamin D3, 1,000 unit ca (more content not included)... Normal [facility] Comprehensive metabolic 2000 panelon 05-20-2021 Albumin [Mass/Vol] 3.5 g/dL Low 3.9-4.9 [facility] Comment on above: Order Comment: Speci men Type: BLOOD SPECIMEN Performed By: #### 2 4322-12, #### [facility] CLIA [id number] [address] ALP [Catalytic activity/Vol] 74 U/L Normal 34-123 [facility] Comment on above: Order Comment: Speci men Type: BLOOD SPECIMEN Performed By: #### 2 4322-12, #### [facility] CLIA [id number] [address] ALT With P-5'-P [Catalytic activity/Vol] 22 U/L Normal 7-38 [facility] Comment on above: Order Comment: Speci men Type: BLOOD SPECIMEN Performed By: #### 2 4322-12, #### [facility] CLIA [id number] [address] Anion gap [Moles/Vol] 8 mmol/L Low 9-18 [facility] Comment on above: Order Comment: Speci men Type: BLOOD SPECIMEN Performed By: #### 2 8, #### [facility] CLIA [id number] [address] AST With P-5'-P [Catalytic activity/Vol] 17 U/L Normal 13-35 [facility] Comment on above: Order Comment: Speci men Type: BLOOD SPECIMEN Performed By: #### 2 8, #### [facility] CLIA [id number] [address] Bilirubin [Mass/Vol] 0.6 mg/dL Normal 0.2-1.3 [facility] Comment on above: Order Comment: Speci men Type: BLOOD SPECIMEN Performed By: #### 2 4322-12, #### [facility] CLIA [id number] [address] [place] [facility] Calcium [Mass/Vol] 8.8 mg/dL Normal 8.5-10.2 [facility] Comment on above: Order Comment: Speci men Type: BLOOD SPECIMEN Performed By: #### 2 4322-12, #### [facility] CLIA [id number] [address] [place] [facility] Chloride [Moles/Vol] 110 mmol/L High 97-105 [facility] Comment on above: Order Comment: Speci men Type: BLOOD SPECIMEN Performed By: #### 2 4322-12, #### [facility] CLIA [id number] [address] [place] CO2 [Moles/Vol] 23 mmol/L Normal 22-30 [facility] Comment on above: Order Comment: Speci men Type: BLOOD SPECIMEN Performed By: #### 2 4322-12, #### [facility] CLIA [id number] [address] [place] Creatinine [Mass/Vol] 0.88 mg/dL Normal 0.58-0.96 [facility] Comment on above: Order Comment: Speci men Type: BLOOD SPECIMEN Performed By: #### 2 4323-8, 76137-0 #### [facility] CLIA [id number] 1 [place] [address] [place] GFR/1.73 sq M.predicted MDRD (S/P/Bld) [Vol rate/Area] mL/min/{1.73_m2} Normal [facility] Comment on above: Order [...] actual GFR. Performed By: #### 2 4323-8, 46216-8 #### [facility] CLIA [id number] 1 [place] [id number] [place] Glucose [Mass/Vol] 86 mg/dL Normal 74-99 [facility] Comment on above: Order Comment: Speci men Type: BLOOD SPECIMEN Result Comment: The [place] Diabetes Association (ADA) provides guidance for cutoff [...] Standards of Medical Care in Diabetes 2016, [place] [employer]. Diabetes Care. 2016.39(Suppl 1). Performed By: #### 2 4323-8, #### [facility] CLIA [id number] [address] STATES [facility] Potassium [Moles/Vol] 4.0 mmol/L Normal 3.7-5.1 [facility] Comment on above: Order Comment: Speci men Type: BLOOD SPECIMEN Performed By: #### 2 8, #### [facility] CLIA [id number] [address] Protein [Mass/Vol] 5.6 g/dL Low 6.3-8.0 [facility] Comment on above: Order Comment: Speci men Type: BLOOD SPECIMEN Performed By: #### 2 8, #### [facility] CLIA [id number] [address] Sodium [Moles/Vol] 141 mmol/L Normal 136-144 [facility] Comment on above: Order Comment: Speci men Type: BLOOD SPECIMEN Performed By: #### 2 4322-12, #### [facility] CLIA [id number] [address] Urea nitrogen [Mass/Vol] 14 mg/dL Normal 7-21 [facility] Comment on above: Order Comment: Speci men Type: BLOOD SPECIMEN Performed By: #### 2 8, #### [facility] CLIA [id number] [address] Magnesium SerPl-mCncon 05-20 Magnesium [Mass/Vol] 1.8 mg/dL Normal 1.7-2.3 [facility] Comment on above: Order Comment: Speci men Type: BLOOD SPECIMEN Performed By: #### 2 4328, 01466-6 #### [facility] CLIA [id number] [address] PT panel Coag (PPP)on 2021 INR Coag (PPP) [Relative time] 1.3 {INR} Normal 0.9-1.3 [facility] Comment on above: Order Comment: Speci men Type: BLOOD SPECIMEN Result Comment: Amita min K Antagonist (VKA) Therapeutic Range: INR 2 to 3 (Target INR of 2.5) Note: For patients treated with VKA drugs, such as warfarin, the [place] [employer] 2012 Guideline recommends [...] Chest 2012, 141:7S-47S Marbella RA, et al. [facility] 2017, 70: 252-289 Performed By: #### 3 4528-0 #### [facility] CLIA [id number] [address] [place] PT Coag (PPP) [Time] 14.6 s High 9.7-13.0 [facility] Comment on above: Order Comment: Speci men Type: BLOOD SPECIMEN Performed By: #### 3 4528-0 #### [facility] CLIA [id number] 1 [place] [address] [place] Basic metabolic 2000 panelon 05-19-2021 Anion gap [Moles/Vol] 8 mmol/L Low 9-18 [facility] Comment on above: Order Comment: Speci men Type: BLOOD SPECIMEN Performed By: #### 2 4321-2, 16969-3 #### [facility] CLIA [id number] [address] [place] Calcium [Mass/Vol] 8.4 mg/dL Low 8.5-10.2 [facility] Comment on above: Order Comment: Speci men Type: BLOOD SPECIMEN Performed By: #### 2 2, #### [facility] CLIA [id number] [address] Chloride [Moles/Vol] 110 mmol/L High 97-105 [facility] Comment on above: Order Comment: Speci men Type: BLOOD SPECIMEN Performed By: #### 2 4320-06, #### [facility] CLIA [id number] [address] CO2 [Moles/Vol] 22 mmol/L Normal 22-30 [facility] Comment on above: Order Comment: Speci men Type: BLOOD SPECIMEN Performed By: #### 2 4320-06, #### [facility] CLIA [id number] [address] Creatinine [Mass/Vol] 0.84 mg/dL Normal 0.58-0.96 [facility] Comment on above: Order Comment: Speci men Type: BLOOD SPECIMEN Performed By: #### 2 4320-06, #### [facility] CLIA [id number] [address] GFR/1.73 sq M.predicted MDRD (S/P/Bld) [Vol rate/Area] mL/min/{1.73_m2} Normal [facility] Comment on above: Order [...] Performed By: #### 2 #### [facility] CLIA [id number] 1 [place] [address] [place] Glucose [Mass/Vol] 83 mg/dL Normal 74-99 [facility] Comment on above: Order Comment: Speci men Type: BLOOD SPECIMEN Result Comment: The [place] Diabetes Association (ADA) provides guidance for cutoff [...] Standards of Medical Care in Diabetes 2016, [place] [employer]. Diabetes Care. 2016.39(Suppl 1). Performed By: #### 2 #### [facility] CLIA [id number] [address] [place] Potassium [Moles/Vol] 3.9 mmol/L Normal 3.7-5.1 [facility] Comment on above: Order Comment: Speci men Type: BLOOD SPECIMEN Performed By: #### 2 #### [facility] CLIA [id number] [address] [place] Sodium [Moles/Vol] 140 mmol/L Normal 136-144 [facility] Comment on above: Order Comment: Speci men Type: BLOOD SPECIMEN Performed By: #### 2 #### [facility] CLIA [id number] [address] [place] Urea nitrogen [Mass/Vol] 16 mg/dL Normal 7-21 [facility] Comment on above: Order Comment: Speci men Type: BLOOD SPECIMEN Performed By: #### 2 #### [facility] CLIA [id number] [address] CBC panel Auto (Bld)on 05-19 Erythrocyte distribution width (RBC) [Ratio] 12.9 % Normal 11.5-15.0 [facility] Comment on above: Order Comment: Speci men Type: BLOOD SPECIMEN Performed By: #### 5 8410-2 #### [facility] CLIA [id number] [address] Hematocrit (Bld) [Volume fraction] 36.8 % Normal 36.0-46.0 [facility] Comment on above: Order Comment: Speci men Type: BLOOD SPECIMEN Performed By: #### 5 8410-2 #### [facility] CLIA [id number] [address] Hemoglobin (Bld) [Mass/Vol] 12.2 g/dL Normal 11.5-15.5 [facility] Comment on above: Order Comment: Speci men Type: BLOOD SPECIMEN Performed By: #### 5 8410-2 #### [facility] CLIA [id number] [address] MCH (RBC) [Entitic mass] 30.4 pg Normal 26.0-34.0 [facility] Comment on above: Order Comment: Speci men Type: BLOOD SPECIMEN Performed By: #### 5 8410-2 #### [facility] CLIA [id number] [address] MCHC (RBC) [Mass/Vol] 33.2 g/dL Normal 30.5-36.0 [facility] Comment on above: Order Comment: Speci men Type: BLOOD SPECIMEN Performed By: #### 5 8410-2 #### [facility] CLIA [id number] [address] MCV (RBC) [Entitic vol] 91.8 fL Normal 80.0-100.0 [facility] Comment on above: Order Comment: Speci men Type: BLOOD SPECIMEN Performed By: #### 5 8410-2 #### [facility] CLIA [id number] [address] Nucleated RBC (Bld) [#/Vol] 10*3/uL Normal <0.01 [facility] Comment on above: Order Comment: Speci men Type: BLOOD SPECIMEN Performed By: #### 5 8410-2 #### [facility] CLIA [id number] [address] Platelet mean volume (Bld) [Entitic vol] 8.6 fL Low 9.0-12.7 [facility] Comment on above: Order Comment: Speci men Type: BLOOD SPECIMEN Performed By: #### 5 8410-2 #### [facility] CLIA [id number] [address] Platelets (Bld) [#/Vol] 150 10*3/uL Normal 150-400 [facility] Comment on above: Order Comment: Speci men Type: BLOOD SPECIMEN Performed By: #### 5 8410-2 #### [facility] CLIA [id number] [address] RBC (Bld) [#/Vol] 4.01 10*6/uL Normal 3.90-5.20 [facility] Comment on above: Order Comment: Speci men Type: BLOOD SPECIMEN Performed By: #### 5 8410-2 #### [facility] CLIA [id number] [address] WBC (Bld) [#/Vol] 5.46 10*3/uL Normal 3.70-11.00 [facility] Comment on above: Order Comment: Speci men Type: BLOOD SPECIMEN Performed By: #### 5 8410-2 #### [facility] CLIA [id number] [address] CONSULTon 05-19-2021 CONSULT HNO ID: [id number] Author: Luisito Murphy MD Service: Electrophysiology Author [...] or not tolerated. She was admitted with [facility] with yet another episode of atrial fibrillation with RVR and transferred to [facility] for consideration of pacemaker implantation and [...] Apparently the patient had another echo at [facility] very recently. FUNCTIONAL STATUS: Independent PAST MEDICAL [...] by amanda (more content not included)... Normal [facility] HISTORY PHYSICALon HISTORY PHYSICAL HNO ID: [id number] Author: Dewayne Cifuentes II, MD Service: Hospital Medicine Author Type: Physician Type: HANDP Filed: 05/19/2021 2:07 AM Note Text: DEPARTMENT OF HOSPITAL MEDICINE HISTORY AND PHYSICAL EXAM SERVICE DATE: 05/18/2021 SERVICE TIME: 11:39 PM Primary Care Physician: Loree Vallecillo MD NIGHT AND WEEKEND COVERAGE: From 7am - 7pm, please call Sound attending After 7pm, please call cross cover pager #[phone] Subjective CHIEF COMPLAINT: Rapid heartrate and lightheadedness HPI: This is a 80 year old female mated from the [facility] for refractory A. fib with RVR. Patient states that she was admitted to [facility] on Thursday due to rapid heart rate and dizziness. The patient has an extensive history with this problem starting around December 2019. She has been admitted multiple times and has been managed conservatively with metoprolo. Since the first of the year she has been seen multiple times at [facility] due to recurrent bouts of A. fib with RVR. During the previous admission it was to her she had a heart cath and an echo, and she was told both were unchanged. She was discharged and instructed to take flecainide when her heart races. When this failed on Thursday she decided to go back to [facility]. Upon presentation to [facility] on Thursday she was found to be hypotensive/cardiogen ic shock with a heart rate above 200s. Adenosine 6, 12, 12 was attempted without effect. Several attempts at electrical cardioversion were also made, without success. The patient was placed on an amio drip with gradual improvement of tachycardia. Decision was made the following day to transfer the patient to [facility] for AV karin ablation and pacer [...] cryo) - PICC LINE INSERTION (PICC TEAM) ([place]) 04/21/2018 - REPLACEMENT OF MITRAL VALVE 04/16/2018 [...] Last Dose Informant Patient Reported? Taking? Biotin-Silicon Bfjr-S-Xnbbqyrn 5,000 mcg-100 mg- 50 mg tab 05/17/2021 [...] Take 1 (more content not included)... Normal [facility] Magnesium SerPl-mCncon 05-19 Magnesium [Mass/Vol] 1.8 mg/dL Normal 1.7-2.3 [facility] Comment on above: Order Comment: Speci men Type: BLOOD SPECIMEN Performed By: #### 2 4321-2, 76649-3 ####[facility] [id number] [place] [address] [place] PT panel Coag (PPP)on 2021 INR Coag (PPP) [Relative time] 2.6 {INR} High 0.9-1.3 [facility] Comment on above: Order Comment: Speci men Type: BLOOD SPECIMEN Result Comment: Amita min K Antagonist (VKA) Therapeutic Range: INR 2 to 3 (Target INR of 2.5) Note: For patients treated with VKA drugs, such as warfarin, the [place] [employer] 2012 Guideline recommends [...] 2.5 to 3.5 (target INR of 3). Junayatt GH, et al. Chest 2012, 141:7S-47S Marbella RA, et al. [facility] 2017, 70: 252-289 Performed By: #### 3 4528-0 ####[facility] [id number] [place] [address] [place] PT Coag (PPP) [Time] 27.7 s High 9.7-13.0 [facility] Comment on above: Order Comment: Speci men Type: BLOOD SPECIMEN Performed By: #### 3 4528-0 ####[facility] [id number] [place] [id number] [place] Absolute lymphocyte counton 05-18-2021 Lymphocytes Auto (Unsp spec) [#/Vol] 1.09 10*3/uL 0.83-4.51 [facility] Work Phone: Basophil percentageon 2021 Basophils/100 WBC (Bld) 0.9 % 0-1 [facility] Work Phone: Eosinophils/100 WBC (Bld) 1.1 % 0-5 [facility] Work Phone: Neutrophils (Bld) [#/Vol] 3.8 10*3/uL 2.0-7.7 [facility] Work Phone: Neutrophils/100 WBC (Bld) 68.5 % 47-70 [facility] Work Phone: WBC (Bld) [#/Vol] 5.6 10*3/uL 4.4-11.0 [facility] Work Phone: Bilirubin [Mass/Vol] 0.40 mg/dL 0.20-1.00 [facility] Work Phone: Comment on above: For patients on eltr ombopag therapy, use of Dimension [place] TBIL is not recommended. Chloride [Moles/Vol] 111 mmol/L 98-107 [facility] Work Phone: Glucose [Mass/Vol] 118 mg/dL 74-106 [facility] Work Phone: Comment on above: Fasting Glucose resu lt from 100 to 125 mg/dL suggests IMPAIRED HOMEOSTASIS per A.D.A. criteria. Potassium [Moles/Vol] 3.7 mmol/L 3.5-5.1 [facility] Work Phone: [phone] Protein [Mass/Vol] 6.6 g/dL 6.4-8.2 [facility] Work Phone: Sodium [Moles/Vol] 141 mmol/L 136-145 [facility] Work Phone: Blood erythrocytes count (nu mber/volume)on 05-18-2021 RBC (Bld) [#/Vol] 3.89 10*6/uL 4.2-5.4 [facility] Work Phone: [phone] Blood hemoglobin measurement (mass/volume)on 05-18-2021 Hemoglobin (Bld) [Mass/Vol] 11.9 g/dL 12.0-15.0 [facility] Work Phone: Blood lymphocytes/100 leukoc yteson 05-18-2021 Lymphocytes/100 WBC (Bld) 19.6 % 19-41 [facility] Work Phone: Blood monocytes/100 leukocyt eson 05-18-2021 Monocytes/100 WBC (Bld) 9.5 % 0-10 [facility] Work Phone: Blood platelet mean volumeon 05-18-2021 Platelet mean volume (Bld) [Entitic vol] 8.5 fL 6.2-12.0 [facility] Work Phone: Determination of erythrocyte mean corpuscular volume (MCV)on 05-18-2021 MCV (RBC) [Entitic vol] 92.3 fL 81-99 [facility] Work Phone: Hematocrit Auto (Bld) [Volum e fraction]on 05-18-2021 Hematocrit (Bld) [Volume fraction] 35.9 % 37-47 [facility] Work Phone: INR in Blood by Coagulation assayon 05-18-2021 INR Coag (Bld) [Relative time] 2.3 {INR} [facility] Work Phone: Laboratory - Chemistry and C hemistry - challengeon 05-18-2021 ALP [Catalytic activity/Vol] 99 U/L 45-117 [facility] Work Phone: ALT [Catalytic activity/Vol] 56 U/L 13-56 [facility] Work Phone: CO2 [Moles/Vol] 22.0 mmol/L 21.0-32.0 [facility] Work Phone: Globulin (S) [Mass/Vol] 3.4 g/dL 2.2-4.2 [facility] Work Phone: Urea nitrogen/Creatinine [Mass ratio] 26.9 mg/mg 10-20 [facility] Work Phone: Magnesium [Mass/Vol] 2.3 mg/dL 1.6-2.6 [facility] Work Phone: Laboratory - Coagulationon 0 05-18-2021 aPTT Coag (Bld) [Time] 39.7 s 24.1-36.2 [facility] Work Phone: PT Coag (PPP) [Time] 24.7 s 11.7-14.9 [facility] Work Phone: Laboratory - Hematology and Cell countson 05-18-2021 Erythrocyte distribution width (RBC) [Entitic vol] 43.6 fL 35.1-43.9 [facility] Work Phone: Erythrocyte distribution width (RBC) [Ratio] 13.0 % 11.6-14.6 [facility] Work Phone: [phone] Immature granulocytes/100 WBC (Bld) 0.400 % 0.0-0.9 [facility] Work Phone: Comment on above: IG% - Immature Granu locytes (promyelocytes, myelocytes and metamyelocytes) > 1% indicates that a LEFT SHIFT is Present. MCH (RBC) [Entitic mass] 30.6 pg 27.0-32.0 [facility] Work Phone: Nucleated RBC/100 WBC (Bld) [Ratio] 0 % 0-5 [facility] Work Phone: MCHC Auto (RBC) [Mass/Vol]on 05-18-2021 MCHC (RBC) [Mass/Vol] 33.1 g/dL 32-36 [facility] Work Phone: No Panel Informationon 05-18 Troponin I High Sensitivity 4476 pg/mL 3.0-54.0 [facility] Work Phone: Comment on above: Critical Result(s) C alled at: 07:10:01 05/18/2021 by: Sherrell Webb. Results read back by same. Please Note: New Test Units and Gender Specific Reference Ranges. For more information see Policy Stat Procedure [place] High Sensitivity Troponin (TNIH) and attachments. Estimated Creatinine Clearance Calc 36.67 ml/min [facility] Work Phone: Estimated GFR (MDRD) Amer 92 mL/min >60 [facility] Work Phone: Comment on above: GFR Calc Estimated GFR (MDRD) Non-Af Amer 76 mL/min >60 [facility] Work Phone: Comment on above: Non- GFR Calc SARS-CoV-2 Antigen (Rapid) [facility] Work Phone: [phone] Thyroid Stimulating Hormone (TSH) 0.99 uIU/mL 0.358-3.74 [facility] Work Phone: [phone] Platelets bldon 05-18-2021 Platelets (Bld) [#/Vol] 138 10*3/uL 150-450 [facility] Work Phone: [phone] Serum or plasma albumin lashawn urement (mass/volume)on 05-18-2021 Albumin [Mass/Vol] 3.2 g/dL 3.2-5.0 [facility] Work Phone: Serum or plasma albumin/glob ulin mass ratioon 05-18-2021 Albumin/Globulin [Mass ratio] 0.9 {ratio} 0.9-2.4 [facility] Work Phone: [phone] Serum or plasma calcium lashawn urement (mass/volume)on 05-18-2021 Calcium [Mass/Vol] 7.9 mg/dL 8.5-10.1 [facility] Work Phone: [phone] Serum or plasma creatinine m easurement (mass/volume)on 05-18-2021 Creatinine [Mass/Vol] 0.78 mg/dL 0.55-1.02 [facility] Work Phone: Comment on above: The validity of the calculated GFR & GFRAA in patients over 70 years has not been determined. Clinical correlation is essential. Serum or plasma urea nitroge n measurement (mass/volume)on 05-18-2021 Urea nitrogen [Mass/Vol] 21 mg/dL 7-18 [facility] Work Phone: [phone] Thin prep Papanicolaou smear with manual screeningon 05-18-2021 Thin prep Papanicolaou smear with manual screening 40 U/L 15-37 [facility] Work Phone: Thin prep Papanicolaou smear with manual screening 8 5-15 [facility] Work Phone: Absolute lymphocyte counton 05-09-2021 Lymphocytes Auto (Unsp spec) [#/Vol] 1.06 10*3/uL 0.83-4.51 [facility] Work Phone: Basophil percentageon 2021 Basophils/100 WBC (Bld) 1.5 % 0-1 [facility] Work Phone: Eosinophils/100 WBC (Bld) 4.4 % 0-5 [facility] Work Phone: Neutrophils (Bld) [#/Vol] 2.9 10*3/uL 2.0-7.7 [facility] Work Phone: Neutrophils/100 WBC (Bld) 61.2 % 47-70 [facility] Work Phone: WBC (Bld) [#/Vol] 4.8 10*3/uL 4.4-11.0 [facility] Work Phone: Bilirubin [Mass/Vol] 0.90 mg/dL 0.20-1.00 [facility] Work Phone: Comment on above: For patients on eltr ombopag therapy, use of Dimension [place] TBIL is not recommended. Chloride [Moles/Vol] 110 mmol/L 98-107 [facility] Work Phone: Glucose [Mass/Vol] 77 mg/dL 74-106 [facility] Work Phone: Comment on above: Please note revised GLUCOSE reference range effective 2017. Potassium [Moles/Vol] 4.3 mmol/L 3.5-5.1 [facility] Work Phone: Protein [Mass/Vol] 7.0 g/dL 6.4-8.2 [facility] Work Phone: Sodium [Moles/Vol] 138 mmol/L 136-145 [facility] Work Phone: Blood erythrocytes count (nu mber/volume)on 05-09-2021 RBC (Bld) [#/Vol] 4.04 10*6/uL 4.2-5.4 [facility] Work [facility]: Blood hemoglobin measurement (mass/volume)on 05-09-2021 Hemoglobin (Bld) [Mass/Vol] 12.5 g/dL 12.0-15.0 [facility] Work Phone: Blood lymphocytes/100 leukoc yteson 05-09-2021 Lymphocytes/100 WBC (Bld) 22.2 % 19-41 [facility] Work Phone: Blood monocytes/100 leukocyt eson 05-09-2021 Monocytes/100 WBC (Bld) 10.5 % 0-10 [facility] Work Phone: Blood platelet mean volumeon 05-09-2021 Platelet mean volume (Bld) [Entitic vol] 8.5 fL 6.2-12.0 [facility] Work Phone: Determination of erythrocyte mean corpuscular volume (MCV)on 05-09-2021 MCV (RBC) [Entitic vol] 89.6 fL 81-99 [facility] Work Phone: Hematocrit Auto (Bld) [Volum e fraction]on 05-09-2021 Hematocrit (Bld) [Volume fraction] 36.2 % 37-47 [facility] Work Phone: INR in Blood by Coagulation assayon 05-09-2021 INR Coag (Bld) [Relative time] 1.4 {INR} [facility] Work Phone: Laboratory - Chemistry and C hemistry - challengeon 05-09-2021 ALP [Catalytic activity/Vol] 69 U/L 45-117 [facility] Work Phone: ALT [Catalytic activity/Vol] 32 U/L 13-56 [facility] Work Phone: [phone] CO2 [Moles/Vol] 21.0 mmol/L 21.0-32.0 [facility] Work Phone: [phone] Globulin (S) [Mass/Vol] 4.2 g/dL 2.2-4.2 [facility] Work Phone: [phone] Urea nitrogen/Creatinine [Mass ratio] 26.6 mg/mg 10-20 [facility] Work Phone: [phone] Laboratory - Coagulationon 0 05-09-2021 PT Coag (PPP) [Time] 16.7 s 11.7-14.9 [facility] Work Phone: [phone] Laboratory - Hematology and Cell countson 05-09-2021 Erythrocyte distribution width (RBC) [Entitic vol] 40.2 fL 35.1-43.9 [facility] Work Phone: [phone] Erythrocyte distribution width (RBC) [Ratio] 12.4 % 11.6-14.6 [facility] Work Phone: [phone] Immature granulocytes/100 WBC (Bld) 0.200 % 0.0-0.9 [facility] Work Phone: [phone] Comment on above: IG% - Immature Granu locytes (promyelocytes, myelocytes and metamyelocytes) > 1% indicates that a LEFT SHIFT is Present. MCH (RBC) [Entitic mass] 30.9 pg 27.0-32.0 [facility] Work Phone: [phone] Nucleated RBC/100 WBC (Bld) [Ratio] 0 % 0-5 [facility] Work Phone: [phone] MCHC Auto (RBC) [Mass/Vol]on 05-09-2021 MCHC (RBC) [Mass/Vol] 34.5 g/dL 32-36 [facility] Work Phone: [phone] Panel Informationon 05-09 Estimated Creatinine Clearance Calc 36.67 ml/min [facility] Work Phone: [phone] Estimated GFR (MDRD) Amer 102 mL/min >60 [facility] Work Phone: [phone] Comment on above: GFR Calc Estimated GFR (MDRD) Non-Af Amer 84 mL/min >60 [facility] Work Phone: Comment on above: Non- GFR Calc Platelets bldon 05-09-2021 Platelets (Bld) [#/Vol] 159 10*3/uL 150-450 [facility] Work Phone: [phone] Serum or plasma albumin lashawn urement (mass/volume)on 05-09-2021 Albumin [Mass/Vol] 2.8 g/dL 3.2-5.0 [facility] Work Phone: [phone] Serum or plasma albumin/glob ulin mass ratioon 05-09-2021 Albumin/Globulin [Mass ratio] 0.7 {ratio} 0.9-2.4 [facility] Work Phone: [phone] Serum or plasma calcium lashawn urement (mass/volume)on 05-09-2021 Calcium [Mass/Vol] 8.7 mg/dL 8.5-10.1 [facility] Work Phone: [phone] Serum or plasma creatinine m easurement (mass/volume)on 05-09-2021 Creatinine [Mass/Vol] 0.71 mg/dL 0.55-1.02 [facility] Work Phone: Comment on above: The validity of the calculated GFR & GFRAA in patients over 70 years has not been determined. Clinical correlation is essential. Serum or plasma urea nitroge n measurement (mass/volume)on 05-09-2021 Urea nitrogen [Mass/Vol] 19 mg/dL 7-18 [facility] Work Phone: [phone] Thin prep Papanicolaou smear with manual screeningon 05-09-2021 Thin prep Papanicolaou smear with manual screening 23 U/L 15-37 [facility] Work Phone: [phone] Thin prep Papanicolaou smear with manual screening 7 5-15 [facility] Work Phone: [phone] No Panel Informationon 05-07 Thyroid Stimulating Hormone (TSH) 0.76 uIU/mL 0.358-3.74 [facility] Work Phone: Jose 05-06-2021 CNPN Telephone (AGCARDPOB ) QUINCYGLORIA Merly ([id number]) 1940 F CHT Date Time Provider Department 05/06/21 JEAN-PIERRE PEREZ AGCARDPOKirill During your visit today, we recorded the following information about you: Jean-Pierre Perez MD 05/06/2021 1:20 PM Signed Mellisa/Mart/Albert-receive d a call on mutual patient from [place] [facility] today that patient was back in [...] to try to get her admitted to [facility] to cardiac telemetry and transfer up [...] possible. There is no EP down in [place] so it really requires EP to manage appear in [place]. Thanks your help on this complex lady. [...] by mouth daily at bedtime. - Biotin-Silicon Kzdp-Q-Eumikuru 5,000 mcg-100 mg- 50 mg tab Take 1 tablet by mouth once daily. - Cholecalciferol, Vitamin D3, 1,000 unit cap Take 1,000 Units by mouth once daily. 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] 07/11/2015 Mitral valve stenosis [I05.0] Mitral valve regurgitation [I34.0] Paroxysmal atrial fibrillation (HCC) [I48.0] 03/16/2018 halfway (current) use of 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s [Z79.*03/16/2018 halfway current use of anticoagulant [Z79.01]*03/19/2018 A-fib (HCC) [...] Encounter Status:Closed by JEAN-PIERRE PEREZ on 05/08/21 [facility] CNPN Telephone ([place]) GLORIA MATHEW ([id number]) 1940 F CHT Date Time Provider Department 05/06/21 [facility] During your visit today, we recorded the following information about you: Aniya Shankar RP 05/06/2021 1:16 PM Signed Received an INR of 2.9 from [facility]. Called and spoke with patient. She is currently in the ED for atrial fibrillation. Patient agrees to contact the clinic when she is discharged for follow up. Aniya Shankar [facility] Aniya Shankar [facility] 05/10/2021 10:51 AM Signed Patient remained at [place] through 05/09. Plan was to be transferred to [facility], however, there was no bed available. While at [place], she held warfarin in preparation for a [...] back instructions and verbalized understanding. Aniya Shankar [facility] Allergies As of Date: 05/06/2021 Noted Allergy Reaction ZOLOFT (SERTRALINE) 10/14/2019 14 - Other: See Comments Comments: palpitations Date Reviewed: 03/06/2021 Reviewed by: Desmond Acosta MD - Fully Assessed Reason for Visit: Coumadin/INR [1207] Visit Diagnoses:halfway current use of anticoagulant [Z79.01] Paroxysmal atrial fibrillation (HCC) [I48.0] Order(s):PROTHROMBIN TIME/PT [SQPT] Order #: [id number] Prescriptions as of 05/10/2021 - flecainide (TAMBOCOR) [...] by mouth daily at bedtime. - Biotin-Silicon Lpvb-F-Ycrwahfj 5,000 mcg-100 mg- 50 mg tab Take 1 tablet by mouth once daily. - Cholecalciferol, Vitamin D3, 1,000 unit cap Take 1,000 Units by mouth once daily. 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] 07/11/2015 Mitral valve stenosis [I05.0] Mitral valve regurgitation [I34.0] Paroxysmal atrial fibrillation (HCC) [I48.0] 03/16/2018 halfway (current) use of 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s [Z79.*03/16/2018 halfway current use of anticoagulant [Z79.01]*03/19/2018 A-fib (HCC) [...] Encounter Status:Closed by ANIYA SHANKAR on 05/10/21 [facility] CNPN Telephone (AGCARDPOB ) GLORIA MATHEW ([id number]) 1940 F CHT Date Time Provider Department 05/06/21 DESMOND ACOSTA During your visit today, we recorded the following information about you: Mariah Hou RN 05/06/2021 9:42 AM Signed Pt calls to update out office that she experienced afib last night (HR 188 bpm). Pt took tambocor 100mg at home but did not convert. She went to [facility] ER. She received an additional tambocor 200mg. [...] mg by mouth once daily. - Biotin-Silicon Aetd-R-Tvqizsnj 5,000 mcg-100 mg- 50 mg tab Take 1 tablet by mouth once daily. - Cholecalciferol, Vitamin D3, 1,000 unit cap Take 1,000 Units by mouth once daily. 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] 07/11/2015 Mitral valve stenosis [I05.0] Mitral valve regurgitation [I34.0] Paroxysmal atrial fibrillation (HCC) [I48.0] 03/16/2018 meterman (current) use of 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s [Z79.*03/16/2018 meterman current use of anticoagulant [Z79.01]*03/19/2018 A-fib (HCC) [...] Status:Closed by MARIAH HOU on 06/18/21 [facility] Laboratory - Chemistry and C hemistry - challengeon 05-06-2021 Magnesium [Mass/Vol] 2.4 mg/dL 1.6-2.6 [facility] Work Phone: No Panel Informationon 05-06 Troponin I High Sensitivity 2201 pg/mL 3.0-54.0 [facility] Work Phone: Comment on above: Critical Result(s) C alled at: 19:20:40 05/06/2021 by: Stephanie Clements. Results read back by same. Please Note: New Test Units and Gender Specific Reference Ranges. For more information see Policy Stat Procedure [place] High Sensitivity Troponin (TNIH) and attachments. SARS-CoV-2 Antigen (Rapid) [facility] Work Phone: Absolute lymphocyte counton 05-05-2021 Lymphocytes Auto (Unsp spec) [#/Vol] 1.57 10*3/uL 0.83-4.51 [facility] Work Phone: Basophil percentageon 2021 Basophils/100 WBC (Bld) 1.9 % 0-1 [facility] Work Phone: Chloride [Moles/Vol] 112 mmol/L 98-107 [facility] Work Phone: Eosinophils/100 WBC (Bld) 2.8 % 0-5 [facility] Work Phone: Glucose [Mass/Vol] 105 mg/dL 74-106 [facility] Work Phone: Comment on above: Fasting Glucose resu lt from 100 to 125 mg/dL suggests IMPAIRED HOMEOSTASIS per A.D.A. criteria.Please note revised GLUCOSE reference range effective 2017. Neutrophils (Bld) [#/Vol] 3.0 10*3/uL 2.0-7.7 [facility] Work Phone: Neutrophils/100 WBC (Bld) 56.6 % 47-70 [facility] Work Phone: Potassium [Moles/Vol] 3.9 mmol/L 3.5-5.1 [facility] Work Phone: Sodium [Moles/Vol] 141 mmol/L 136-145 [facility] Work Phone: WBC (Bld) [#/Vol] 5.3 10*3/uL 4.4-11.0 [facility] Work Phone: [phone] Blood erythrocytes count (nu mber/volume)on 05-05-2021 RBC (Bld) [#/Vol] 4.57 10*6/uL 4.2-5.4 [facility] Work Phone: Blood hemoglobin measurement (mass/volume)on 05-05-2021 Hemoglobin (Bld) [Mass/Vol] 14.0 g/dL 12.0-15.0 [facility] Work Phone: Blood lymphocytes/100 leukoc yteson 05-05-2021 Lymphocytes/100 WBC (Bld) 29.5 % 19-41 [facility] Work Phone: Blood monocytes/100 leukocyt eson 05-05-2021 Monocytes/100 WBC (Bld) 9.0 % 0-10 [facility] Work Phone: Blood platelet mean volumeon 05-05-2021 Platelet mean volume (Bld) [Entitic vol] 8.7 fL 6.2-12.0 [facility] Work Phone: Determination of erythrocyte mean corpuscular volume (MCV)on 05-05-2021 MCV (RBC) [Entitic vol] 87.1 fL 81-99 [facility] Work Phone: Hematocrit Auto (Bld) [Volum e fraction]on 05-05-2021 Hematocrit (Bld) [Volume fraction] 39.8 % 37-47 [facility] Work Phone: INR in Blood by Coagulation assayon 05-05-2021 INR Coag (Bld) [Relative time] 2.9 {INR} [facility] Work Phone: Laboratory - Chemistry and C hemistry - challengeon 05-05-2021 CO2 [Moles/Vol] 24.0 mmol/L 21.0-32.0 [facility] Work Phone: Magnesium [Mass/Vol] 1.8 mg/dL 1.6-2.6 [facility] Work Phone: Urea nitrogen/Creatinine [Mass ratio] 19.0 mg/mg 10-20 [facility] Work Phone: Laboratory - Coagulationon 0 05-05-2021 PT Coag (PPP) [Time] 29.8 s 11.7-14.9 [facility] Work Phone: Laboratory - Hematology and Cell countson 05-05-2021 Erythrocyte distribution width (RBC) [Entitic vol] 40.2 fL 35.1-43.9 [facility] Work Phone: Erythrocyte distribution width (RBC) [Ratio] 12.7 % 11.6-14.6 [facility] Work Phone: Immature granulocytes/100 WBC (Bld) 0.200 % 0.0-0.9 [facility] Work Phone: Comment on above: IG% - Immature Granu locytes (promyelocytes, myelocytes and metamyelocytes) > 1% indicates that a LEFT SHIFT is Present. MCH (RBC) [Entitic mass] 30.6 pg 27.0-32.0 [facility] Work Phone: Nucleated RBC/100 WBC (Bld) [Ratio] 0 % 0-5 [facility] Work Phone: [phone] MCHC Auto (RBC) [Mass/Vol]on 05-05-2021 MCHC (RBC) [Mass/Vol] 35.2 g/dL 32-36 [facility] Work Phone: No Panel Informationon 05-05 Estimated Creatinine Clearance Calc 43.66 ml/min [facility] Work Phone: Estimated GFR (MDRD) Amer 84 mL/min >60 [facility] Work Phone: Comment on above: GFR Calc Estimated GFR (MDRD) Non-Af Amer 70 mL/min >60 [facility] Work Phone: Comment on above: Non- GFR Calc Troponin I High Sensitivity 76 pg/mL 3.0-54.0 [facility] Work Phone: Comment on above: Please Note: New [place] t Units and Gender Specific Reference Ranges. For more information see Policy Stat Procedure [place] High Sensitivity Troponin (TNIH) and attachments. Platelets bldon 05-05-2021 Platelets (Bld) [#/Vol] 194 10*3/uL 150-450 [facility] Work Phone: [phone] Serum or plasma calcium lashawn urement (mass/volume)on 05-05-2021 Calcium [Mass/Vol] 8.9 mg/dL 8.5-10.1 [facility] Work Phone: [phone] Serum or plasma creatinine m easurement (mass/volume)on 05-05-2021 Creatinine [Mass/Vol] 0.84 mg/dL 0.55-1.02 [facility] Work Phone: [phone] Comment on above: The validity of the calculated GFR & GFRAA in patients over 70 years has not been determined. Clinical correlation is essential. Serum or plasma urea nitroge n measurement (mass/volume)on 05-05-2021 Urea nitrogen [Mass/Vol] 16 mg/dL 7-18 [facility] Work Phone: Thin prep Papanicolaou smear with manual screeningon 05-05-2021 Thin prep Papanicolaou smear with manual screening 5 5-15 [facility] Work Phone: [facility] GLORIA MATHEW ([id number]) 1940 F T Date Time Provider Department 04/19/21 [facility] During your visit today, we recorded the following information about you: Ligia Bloom LPN 04/19/2021 3:36 PM Signed Pt LVM with her in home test result. INR 1.8. CALLIE Abad [facility] 04/19/2021 3:59 PM Signed Referred [...] back instructions and verbalized understanding. Aniya Shankar [facility] Allergies As of Date: 04/19/2021 Noted Allergy Reaction ZOLOFT (SERTRALINE) 10/14/2019 14 - Other: See Comments Comments: palpitations Date Reviewed: 03/06/2021 Reviewed by: Desmond Acosta MD - Fully Assessed Reason for Visit: Coumadin/INR [1207] Cmt: result Visit Diagnoses:halfway current use of anticoagulant [Z79.01] Paroxysmal atrial fibrillation (HCC) [I48.0] Order(s):PROTHROMBIN TIME/PT [SQPT] Order #: [id number] Prescriptions as of 04/19/2021 - flecainide (TAMBOCOR) [...] by mouth daily at bedtime. - Biotin-Silicon Vqmw-H-Mbixowdc 5,000 mcg-100 mg- 50 mg tab Take 1 tablet by mouth once daily. - Cholecalciferol, Vitamin D3, 1,000 unit cap Take 1,000 Units by mouth once daily. 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 Normal [facility] - Coagulationon 1 06-20-2020 INR Coag (Bld) [Relative time] 1.8 {INR} [facility] Work Phone: Comment on above: Critical Value > 4.0 Whole blood prothrombin time on 04-19-2021 PT Coag (Bld) [Time] 20.4 s 11.9-14.4 [facility] Work Phone: Jose 04-12-2021 CNPN Telephone (AGINTYoung Innovations) GLORIA MATHEW ([id number]) 1940 F CHT Date Time Provider Department 04/12/21 [facility] During your visit today, we recorded the following information about you: Do Anaya, MEDICAL TECHNOLOGIST CLINICAL 04/12/2021 3:38 PM [facility] called with critical results for this patient. Her INR ws 4.7. They had the lab do a confirmation as well. Do Anaya MEDICAL TECHNOLOGIST CLINICAL 04/12/21 3:38 PM Mellisa Dutta [facility] 04/12/2021 3:48 PM Addendum Referred [...] Critical Results [1705] Cmt: INR 4.7 Visit Diagnoses:meterman current use of anticoagulant [Z79.01] Paroxysmal atrial fibrillation (HCC) [I48.0] Order(s):PROTHROMBIN TIME/PT [SQPT] Order #: [id number] Prescriptions as of 04/15/2021 - flecainide (TAMBOCOR) [...] each week. (more content not included)... Normal [facility] - Coagulationon 1 06-13-2020 PT Coag (PPP) [Time] 41.6 s 11.7-14.9 [facility] Work Phone: Jose 04-04-2021 REBEKA Telephone (SHARON) GLORIA MATHEW ([id number]) 1940 F CHT Date Time Provider Department 04/04/21 DESMOND ACOSTA During your visit today, we recorded the following information about you: Desmond Acosta MD 04/04/2021 2:23 PM Signed Reviewed information from patient Visit to [facility] 03/30 with palpitations due to AF, took a dose of Flecainide. In ED K 3.7 S Cr 1.0 ECG confirmed AF, TnI high senstivity 83 ( ULN 54) Underwent DCCV with spiritism of NSR and discharged. Desmond Acosta MD [...] by mouth daily at bedtime. - Biotin-Silicon Unzt-Y-Lfjoaraw 5,000 mcg-100 mg- 50 mg tab Take 1 tablet by mouth once daily. - Cholecalciferol, Vitamin D3, 1,000 unit cap Take 1,000 Units by mouth once daily. 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] 07/11/2015 Mitral valve stenosis [I05.0] Mitral valve regurgitation [I34.0] Paroxysmal atrial fibrillation (HCC) [I48.0] 03/16/2018 meterman (current) use of 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s [Z79.*03/16/2018 meterman current use of anticoagulant [Z79.01]*03/19/2018 A-fib (HCC) [...] Encounter Status:Closed by DESMOND [facility]COSTA [facility] GLORIA MATHEW ([id number]) 1940 F T Date Time Provider Department 04/02/21 DESMOND ACOSTA AGCARDPOB During your visit today, we recorded the following information about you: Donald Cunningham RN 04/02/2021 2:01 PM Signed Patient called to let us know that she went into atrial fibrillation. Patient took two Flecainide and fell asleep. Patient went to [facility] and was cardioverted to sinus rhythm from atrial fibrillation heart rate of 120's. Patient remains in sinus rhythm and will have ER information faxed to our office for review. Donald Cunningham RN Allergies As of Date: 04/02/2021 Noted Allergy Reaction ZOLOFT (SERTRALINE) 10/14/2019 14 - Other: See Comments Comments: palpitations Date Reviewed: 03/06/2021 Reviewed by: Desmond Aocsta MD - Fully Assessed Reason for Visit: [...] by mouth daily at bedtime. - Biotin-Silicon Jzcf-A-Dhwgpxdk 5,000 mcg-100 mg- 50 mg tab Take 1 tablet by mouth once daily. - Cholecalciferol, Vitamin D3, 1,000 unit cap Take 1,000 Units by mouth once daily. 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] 07/11/2015 Mitral valve stenosis [I05.0] Mitral valve regurgitation [I34.0] Paroxysmal atrial fibrillation (HCC) [I48.0] 03/16/2018 meterman (current) use of 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s [Z79.*03/16/2018 meterman current use of anticoagulant [Z79.01]*03/19/2018 A-fib (HCC) [...] Encounter Status:Closed by DONALD CUNNINGHAM on 04/02/21 [facility] 03-20-2021 CNPN Telephone (AGGenwords) GLORIA MATHEW ([id number]) 1940 F Date Time Provider Department 03/20/21 [facility] AGGenwords During your visit today, we recorded the following information about you: Aniya Shankar [facility] 03/20/2021 4:28 PM Signed Referred [...] Left detailed message for patient. Aniya Shankar [facility] Allergies As of Date: 03/20/2021 Noted Allergy Reaction ZOLOFT (SERTRALINE) 10/14/2019 14 - Other: See Comments Comments: palpitations Date Reviewed: 03/06/2021 Reviewed by: Desmond Acosta MD - Fully Assessed Reason for Visit: Coumadin/INR [1207] Visit Diagnoses:meterman current use of anticoagulant [Z79.01] Paroxysmal atrial fibrillation (HCC) [I48.0] Order(s):PROTHROMBIN TIME/PT [SQPT] Order #: [id number] Prescriptions as of 03/20/2021 - flecainide (TAMBOCOR) [...] by mouth daily at bedtime. - Biotin-Silicon Anms-S-Gqzlbbae 5,000 mcg-100 mg- 50 mg tab Take 1 tablet by mouth once daily. - Cholecalciferol, Vitamin D3, 1,000 unit cap Take 1,000 Units by mouth once daily. 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] 07/11/2015 Mitral valve stenosis [I05.0] Mitral valve regurgitation [I34.0] Paroxysmal atrial fibrillation (HCC) [I48.0] 03/16/2018 meterman (current) use of 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s [Z79.*03/16/2018 halfway current use of anticoagulant [Z79.01]*03/19/2018 A-fib (HCC) [...] Status:Closed by ANIYA SHANKAR on 03/20/21 Normal [facility] CNOVon 03-06-2021 CNOV Office Visit (AGCARDPOB) GLORIA MATHEW ([id number]) 1940 F Date Time Provider Department 03/06/21 8:20 AM DESMOND ACOSTA AGCARDPOB During your visit today, we recorded the following information about you: Pulse Blood pressure Weight Height 61/minute 122/72 65.8 kg 1.575 m Lena Pitt MA 03/06/2021 8:07 AM Signed No cardiac concerns Desmond Acosta MD 03/06/2021 9:17 AM Addendum Heart and Vascular [place] [facility] SECTION OF CARDIAC PACING and ELECTROPHYSIOLOGY PRIMARY CARE PHYSICIAN: Loree Vallecillo [address] [place] [address] REFERRING PHYSICIAN: Dr Ana JACKSON CHIEF COMPLAINT: PAF management HISTORY OF [...] held for bradycardia. December 2020 presented to [facility] with dizziness and was in AF, given [...] shortness of breath. She came into the [place] emergency room with the help of her [...] a pacemaker. He had a pacemaker from [id number] and lived to [facility]. Prior Cardiac Testing ECG 01/30/21 - NSR/Ectopic low RAsite P inv 3., aVf [place] 200 QRS 92 QTc 436 01/24/2021-sinus rhythm/low [...] - Pulmonary (more content not included)... Normal [facility] 02-24-2021 [facility] Telephone (AGCARDPOB ) GLORIA MATHEW ([id number]) 1940 F Date Time Provider Department 02/24/21 [...] she would have to come up to [place] because I do not believe there are any EP docs in [place]. Thx MD Mariah Lazcano RN 02/25/2021 9:05 AM Signed Spoke with pt. She reiterates her 2 trips to ER 02/23/21. She reports presently she feels well and denies present symptoms of afib. Pt is agreeable to see Dr Acosta in [place]. Mariah Hou RN Allergies As of Date: 02/24/2021 Noted Allergy Reaction ZOLOFT (SERTRALINE) 10/14/2019 14 - Other: See Comments Comments: palpitations Date Reviewed: 01/24/2021 Reviewed by: Arnold Carlson APRN.ORDER DESK CLERK - Fully Assessed Reason for Visit: Patient Update [1234] Primary Visit Diagnosis:Persistent atrial fibrillation (HCC) [I48.19] Order(s):CONSULT TO ELECTROPHYSIOLOGY [4395217] Order #: [id number]: 1 FUTURE Prescriptions as of 02/27/2021 - [...] by mouth daily at bedtime. - Biotin-Silicon Vjae-A-Dnvrrnce 5,000 mcg-100 mg- 50 mg tab Take 1 tablet by mouth once daily. - Cholecalciferol, Vitamin D3, 1,000 unit cap Take 1,000 Units by mouth once daily. 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/11/2015 Mitral valve stenosis [I05.0] Mitral valve regurgitation [I34.0] Paroxysmal atrial fibrillation (HCC) [I48.0] 03/16/2018 meterman (current) use of 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s [Z79.*03/16/2018 halfway current use of anticoagulant [Z79.01]*03/19/2018 A-fib (HCC) [...] Encounter Status:Closed by JEAN-PIERRE PEREZ on 02/27/21 [facility] CNPN Telephone (AGINTMAC) QUINCYGLORIA Merly ([id number]) 1940 F Date Time Provider Department 02/19/21 [facility] During your visit today, we recorded [...] Date Reviewed: 01/24/2021 Reviewed by: Arnold Carlson APRN.ORDER DESK CLERK - Fully Assessed Reason for Visit: Coumadin/INR [1207] Visit Diagnoses:meterman current use of anticoagulant [Z79.01] Paroxysmal atrial fibrillation (HCC) [I48.0] Order(s):PROTHROMBIN TIME/PT [SQPT] Order #: [id number] Prescriptions as of 02/20/2021 - ipratropium bromide [...] by mouth daily at bedtime. - Biotin-Silicon Ccwi-N-Nhzptnwh 5,000 mcg-100 mg- 50 mg tab Take 1 tablet by mouth once daily. - Cholecalciferol, Vitamin D3, 1,000 unit cap Take 1,000 Units by mouth once daily. 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] 07/11/2015 Mitral valve stenosis [I05.0] Mitral valve regurgitation [I34.0] Paroxysmal atrial fibrillation (HCC) [I48.0] 03/16/2018 meterman (current) use of 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s [Z79.*03/16/2018 halfway current use of anticoagulant [Z79.01]*03/19/2018 A-fib (HCC) [...] Encounter Status:Closed by ANIYA SHANKAR on 02/20/21 [facility] 01-28-2021 [facility] Telephone (AAKASHMAC) GLORIA MATHEW ([id number]) 1940 F Date Time Provider Department 01/28/21 MELLISA DUTTA During your visit today, we [...] did go to lab on 01/16 (at [facility]) and the INR was 3.1 CALLIE Sauer [facility] 01/28/2021 4:13 PM Signed Referred [...] Date Reviewed: 01/24/2021 Reviewed by: Arnold Carlson APRN.ORDER DESK CLERK - Fully Assessed Reason for Visit: Anticoagulation [8] Visit Diagnoses:meterman current use of anticoagulant [Z79.01] Paroxysmal atrial fibrillation (HCC) [I48.0] Order(s):PROTHROMBIN TIME/PT [SQPT] Order #: [id number] Prescriptions as of 01/28/2021 - ipratropium bromide [...] by mouth daily at bedtime. - Biotin-Silicon Bfjj-F-Epsyprme 5,000 mcg-100 mg- 50 mg tab Take 1 tablet by mouth once daily. - Cholecalciferol, Vitamin D3, 1,000 unit cap Take 1,000 Units by mouth once daily. 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 Author Type: Polymerization Kettle Operator Type: Nursing Progress Note Filed: 01/28/2021 11:32 AM Note Text: Applied 14 day extended wear EKG patch. Pt verbalized understanding of monitor use / diary. [facility] CNPNon 01-25-2021 CNPN Telephone (AGCARDPOKirill ) GLORIA MATHEW ([id number]) 1940 F Date Time Provider Department 01/25/21 ARNOLD CARLSON During your visit today, we recorded the following information about you: Arnold Carlson APRN.ORDER DESK CLERK 01/25/2021 2:58 PM Signed Pt was seen in office yesterday. She signed release of records to obtain records from [facility]. Please call and see if they have sent records. She was in the ER in Dec 2020. Need all ER records Arnold Carlson APRN.ORDER DESK CLERK Allergies As of Date: 01/25/2021 Noted Allergy Reaction ZOLOFT (SERTRALINE) 10/14/2019 14 - Other: See Comments Comments: palpitations Date Reviewed: 01/24/2021 Reviewed by: Arnold Carlson APRN.ORDER DESK CLERK - Fully Assessed Reason for Visit: Follow [...] by mouth daily at bedtime. - Biotin-Silicon Hisc-A-Eovslqte 5,000 mcg-100 mg- 50 mg tab Take 1 tablet by mouth once daily. - Cholecalciferol, Vitamin D3, 1,000 unit cap Take 1,000 Units by mouth once daily. 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 She presented to [facility] emergency room due to complaints of lightheadedness and dizziness the end of December. According to patient and her power of attorney lawyer she was in atrial fibrillation she did not respond to medical therapy the power of attorney lawyer states she received amiodarone therapy and therefore [...] 1,000 un (more content not included)... Normal [facility] CNPNon 01-01-2021 CNPN Telephone (AGCARDHWG ) MATHEWGLORIA NASH ([id number]) 1940 F Date Time Provider Department 01/01/21 JEAN-PIERRE PEREZ AGCARDHWG During your visit today, we recorded the following information about you: Melinda Redd LPN 01/01/2021 3:01 PM Signed Ms Mathew called. She went to [facility] last evening for a fib with RVR. [...] Pond MD 01/01/2021 3:09 PM Signed Suggest SULFONATION EQUIPMENT OPERATOR visit 2-4 weeks dac Melinda Redd LPN [...] by mouth daily at bedtime. - Biotin-Silicon Lkjs-D-Ouwfjztb 5,000 mcg-100 mg- 50 mg tab Take 1 tablet by mouth once daily. - Cholecalciferol, Vitamin D3, 1,000 unit cap Take 1,000 Units by mouth once daily. 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] 07/11/2015 Mitral valve stenosis [I05.0] Mitral valve regurgitation [I34.0] Paroxysmal atrial fibrillation (HCC) [I48.0] 03/16/2018 meterman (current) use of 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s [Z79.*03/16/2018 halfway current use of anticoagulant [Z79.01]*03/19/2018 A-fib (HCC) [...] Encounter Status:Closed by MELINDA REDD on 01/01/21 [facility] Jose 12-24-2020 CNPN Telephone (AGGenwords) GLORIA MATHEW ([id number]) 1940 F Date Time Provider Department 12/24/20 [facility] During your visit today, we recorded the following information about you: Renny Morris LPN 12/24/2020 2:58 PM Signed Pt called into coumadin clinic today, stated she did do her INR last 12/19 and it was 2.8, she stated she forgot to call it in and has been doing her regular dosing CALLIE Sauer [facility] 12/24/2020 3:46 PM Signed Referred [...] Left detailed message for patient. Aniya Shankar [facility] Allergies As of Date: 12/24/2020 Noted Allergy Reaction ZOLOFT (SERTRALINE) 10/14/2019 14 - Other: See Comments Comments: palpitations Date Reviewed: 10/25/2020 Reviewed by: Carey Kidd LPN - Fully Assessed Reason for Visit: Coumadin/INR [1207] Visit Diagnoses:halfway current use of anticoagulant [Z79.01] Paroxysmal atrial fibrillation (HCC) [I48.0] Order(s):PROTHROMBIN TIME/PT [SQPT] Order #: [id number] Prescriptions as of 12/24/2020 - citalopram hydrobromide [...] by mouth daily at bedtime. - Biotin-Silicon Ffyn-V-Fjlqtvjn 5,000 mcg-100 mg- 50 mg tab Take 1 tablet by mouth once daily. - Cholecalciferol, Vitamin D3, 1,000 unit cap Take 1,000 Units by mouth once daily. 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 Normal [facility] CNCMeghann 11-21-2020 CNCO HNO ID: [id number] Author: Mammography Coordinator Service: ? Author Type: Physician Type: Letter Filed: 11/22/2020 11:31 PM Note Text: [facility] [employer] [address] [place] [address] November 21, 2020 PID: [id number] Golria Mathew [address] [place] [address] Dear Mrs. Mathew, We are pleased to [...] report will be kept on file at [facility] as part of your permanent medical record and are available for your continuing care. Thank you for allowing us to help in meeting your health care needs. Sincerely, Dr. Gasca Interpreting Radiologist [facility] Breast [facility] (Normal over 40) Normal [facility] CNPElizabeth 11-21-2020 CNPN Telephone (AGFIRE1MAC) GLORIA MATHEW ([id number]) 1940 F Date Time Provider Department 11/21/20 [facility] AGINTMAC During your visit today, [...] Assessed Reason for Visit: Coumadin/INR [1207] Visit Diagnoses:meterman current use of anticoagulant [Z79.01] Paroxysmal atrial fibrillation (HCC) [I48.0] Order(s):PROTHROMBIN TIME/PT [SQPT] Order #: [id number] Prescriptions as of 11/21/2020 - citalopram hydrobromide [...] by mouth daily at bedtime. - Biotin-Silicon Ohlc-V-Khfzyrob 5,000 mcg-100 mg- 50 mg tab Take 1 tablet by mouth once daily. - Cholecalciferol, Vitamin D3, 1,000 unit cap Take 1,000 Units by mouth once daily. 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 Normal [facility] SCREENING W TOMOon 11-20 [facility] SCREENING W ADINA * * *Final Report* * * DATE OF EXAM: Nov 20 2020 2:32PM [id number] - [facility] SCREENING W ADINA / PROCEDURE REASON: SCREENING * * * * Physician Interpretation * * * * #[id number] - [facility] SCREENING W ADINA BILATERAL DIGITAL SCREENING MAMMOGRAM [...] mammogram, 09/22/2018 mammogram, and 08/12/2017 mammogram - [facility] Per [facility]. There are scattered fibroglandular elements in both breasts. There is a biopsy clip in the right breast. No significant masses, calcifications, or other findings are seen in either breast. There has been no significant interval change. IMPRESSION: NEGATIVE There is no mammographic evidence of malignancy. A 1 year screening mammogram is recommended. Cayla hector/hema:11/21/2020 08:02:24 Track Laying Machine Operator(s): Manuel Mckeon, [facility] Per [facility] letter sent: Normal over [...] Health, Family Medicine, and Medical/Surgical Oncology, the [facility] has carefully reviewed the data and [...] their providers when to stop screening mammograms. Termite Helper: Hema Transcribe Date/Time: Nov 20 2020 2:03P Dictated by : CAYLA GASCA MD This examination was interpreted and the report reviewed and electronically signed by: CAYLA GASCA MD on Nov 21 2020 8:02AM EST [id number] Normal [facility] RADAMES SCREENING W TOMOon 09-26 RADAMES SCREENING W ADINA * * *Final Report* * * DATE OF EXAM: Sep 27 2019 2:12PM [id number] - RADAMES SCREENING W ADINA / PROCEDURE REASON: mammogram * * * * Physician Interpretation * * * * #[id number] - RADAMES SCREENING W ADINA BILATERAL DIGITAL [...] exams dated: 09/22/2018 mammogram, 08/12/2017 mammogram - [facility], and 08/11/2016 mammogram - [facility]. There are scattered fibroglandular elements in both breasts. There is a biopsy clip in the right breast. No significant masses, calcifications, or other findings are seen in either breast. There has been no significant interval change. IMPRESSION: NEGATIVE There is no mammographic evidence of malignancy. A 1 year screening mammogram is recommended. Cayla hector/hema:09/27/2019 14:26:35 Track Laying Machine Operator(s): Manuel Mckeon, [employer] letter sent: Normal over 40 Mammogram BI-RADS: [...] Health, Family Medicine, and Medical/Surgical Oncology, the [facility] has carefully reviewed the data and [...] their providers when to stop screening mammograms. Termite Helper: Hema Transcribe Date/Time: Sep 27 2019 1:45P Dictated by : CAYLA GASCA MD This examination was interpreted and the report reviewed and electronically signed by: CAYLA GASCA MD on Sep 27 2019 2:26PM EST Normal [facility] Vital Signs Date Time Vital Sign Value Performing Clinician Facility 12-01-2024 11:25-0400 Body height 157.48 cm LOREE PENABIMA Work Phone: [facility] 12-01-2024 11:18-0400 Body weight 60.32 kg LOREE PENARO Work Phone: [facility] 12-01-2024 11:18-0400 Diastolic blood pressure 75 mm[Hg] LOREE KENYETTAAURO Work Phone: [facility] 12-01-2024 11:18-0400 Heart rate 65 /min LOREE KENYETTAAURO Work Phone: [facility] 12-01-2024 11:18-0400 Respiratory rate 16 /min LOREE KUMARIAURO Work Phone: [facility] 12-01-2024 11:18-0400 Systolic blood pressure 130 mm[Hg] LOREE KENYETTAAURO Work Phone: [facility] 09-14-2024 10:11-0400 Body temperature 97.1 [degF] Samantha Anglin MD Work Phone: [facility] 09-14-2024 10:11-0400 Diastolic blood pressure 66 mm[Hg] Samantha Anglin MD Work Phone: [facility] 09-14-2024 10:11-0400 Heart rate 62 /min Samantha Anglin MD Work Phone: [facility] 09-14-2024 10:11-0400 Respiratory rate 16 /min Samantha Anglin MD Work Phone: [facility] 09-14-2024 10:11-0400 SaO2% (BldA) [Mass fraction] 97 % Samantha Anglin MD Work Phone: [facility] 09-14-2024 10:11-0400 Systolic blood pressure 141 mm[Hg] Samantha Anglin MD Work Phone: [facility] 09-14-2024 06:47-0400 Body height 157.48 cm Samantha Anglin MD Work Phone: [facility] 09-14-2024 06:47-0400 Body mass index (BMI) [Ratio] 24.4 kg/m2 Samantha Anglin MD Work Phone: [facility] 09-14-2024 06:47-0400 Body weight 60.6 kg Samantha Anglin MD Work Phone: [facility] 08-31-2024 22:02-0400 Body mass index (BMI) [Ratio] 26.7 kg/m2 Samantha Anglin MD Work Phone: [facility] 08-01-2024 22:43-0400 Body mass index (BMI) [Ratio] 26.7 kg/m2 Samantha Anglin MD Work Phone: [facility] 08-01-2024 08:09-0400 Body height 157.48 cm Samantha Anglin MD Work Phone: [facility] 08-01-2024 08:09-0400 Body mass index (BMI) [Ratio] 25.7 kg/m2 Samantha Anglin MD Work Phone: [facility] 08-01-2024 08:09-0400 Body temperature 97.4 [degF] Samantha Anglin MD Work Phone: [facility] 08-01-2024 08:09-0400 Body weight 63.67 kg Samantha Anglin MD Work Phone: [facility] 08-01-2024 08:09-0400 Diastolic blood pressure 73 mm[Hg] Samantha Anglin MD Work Phone: [facility] 08-01-2024 08:09-0400 Heart rate 69 /min Samantha Anlgin MD Work Phone: [facility] 08-01-2024 08:09-0400 Respiratory rate 18 /min Samantha Anglin MD Work Phone: [facility] 08-01-2024 08:09-0400 SaO2% (BldA) [Mass fraction] 98 % Samantha Anglin MD Work Phone: [facility] 08-01-2024 08:09-0400 Systolic blood pressure 138 mm[Hg] Samantha Anglin MD Work Phone: [facility] 07-02-2024 07:29-0500 Body mass index (BMI) [Ratio] 26.7 kg/m2 Samantha Anglin MD Work Phone: [facility] 06-04-2024 04:37-0500 Body mass index (BMI) [Ratio] 26.7 kg/m2 Samantha Anglin MD Work Phone: [facility] 06-02-2024 10:24-0500 Body mass index (BMI) [Ratio] 25.4 kg/m2 Samantha Anglin MD Work Phone: [facility] 06-02-2024 10:24-0500 Body weight 63.04 kg Samantha Anglin MD Work Phone: [facility] 06-02-2024 10:24-0500 Diastolic blood pressure 82 mm[Hg] Samantha Anglin MD Work Phone: [facility] 06-02-2024 10:24-0500 Heart rate 80 /min Samantha Anglin MD Work Phone: [facility] 06-02-2024 10:24-0500 Respiratory rate 18 /min Samantha Anglin MD Work Phone: [facility] 06-02-2024 10:24-0500 SaO2% (BldA) [Mass fraction] 96 % Samantha Anglin MD Work Phone: [facility] 06-02-2024 10:24-0500 Systolic blood pressure 131 mm[Hg] Samantha Anglin MD Work Phone: [facility] 05-04-2024 04:45-0500 Body mass index (BMI) [Ratio] 26.7 kg/m2 Samantha Anglin MD Work Phone: [facility] 04-03-2024 01:14-0500 Body mass index (BMI) [Ratio] 26.7 kg/m2 Samantha Anglin MD Work Phone: [facility] 09-10-2023 10:35-0400 Body temperature 97 [degF] Dr. Denise Vallecillo Work Phone: [facility] 09-10-2023 10:35-0400 Diastolic blood pressure 65 mm[Hg] Dr. Denise Valleclilo Work Phone: [facility] 09-10-2023 10:35-0400 Heart rate 62 /min Dr. Denise Vallecillo Work Phone: [facility] 09-10-2023 10:35-0400 Respiratory rate 16 /min Dr. Denise Vallecillo Work Phone: [facility] 09-10-2023 10:35-0400 SaO2% (BldA) [Mass fraction] 98 % Dr. Denise Vallecillo Work Phone: [facility] 09-10-2023 10:35-0400 Systolic blood pressure 117 mm[Hg] Dr. Denise Vallecillo Work Phone: [facility] 09-10-2023 08:51-0400 Body height 157.[address] Denise Vallecillo Work Phone: [facility] 09-10-2023 08:51-0400 Body mass index (BMI) [Ratio] 25.9 kg/m2 Dr. Denise Vallecillo Work Phone: [facility] 09-10-2023 08:51-0400 Body weight 64.[address] Denise Vallecillo Work Phone: [facility] 08-05-2023 09:22-0400 Body height 157.[address] Denise Vallecillo Work Phone: [facility] 08-05-2023 09:22-0400 Body mass index (BMI) [Ratio] 26.6 kg/m2 Dr. Denise Vallecillo Work Phone: [facility] 08-05-2023 09:22-0400 Body weight 66.[address] Denise Vallecillo Work Phone: [facility] 08-05-2023 09:22-0400 Diastolic blood pressure 78 mm[Hg] Dr. Denise Vallecillo Work Phone: [facility] 08-05-2023 09:22-0400 Heart rate 67 /min Dr. Denise Vallecillo Work Phone: [facility] 08-05-2023 09:22-0400 Respiratory rate 17 /min Dr. Denise Vallecillo Work Phone: [facility] 08-05-2023 09:22-0400 SaO2% (BldA) [Mass fraction] 93 % Dr. Denise Vallecillo Work Phone: [facility] 08-05-2023 09:22-0400 Systolic blood pressure 122 mm[Hg] Dr. Denise Vallecillo Work Phone: [facility] 08-02-2023 01:13-0400 Body mass index (BMI) [Ratio] 26.7 kg/m2 Dr. Denise Vallecillo Work Phone: [facility] 07-03-2023 15:06-0500 Body height 157.[address] Denise Vallecillo Work Phone: [facility] 07-03-2023 15:06-0500 Body weight 67.[address] Denise Vallecillo Work Phone: [facility] 07-03-2023 10:07-0500 Body temperature 98.7 [degF] Dr. Denise Vallecillo Work Phone: [facility] 07-03-2023 10:07-0500 Diastolic blood pressure 45 mm[Hg] Dr. Denise Vallecillo Work Phone: [facility] 07-03-2023 10:07-0500 Heart rate 62 /min Dr. Denise Vallecillo Work Phone: [facility] 07-03-2023 10:07-0500 Respiratory rate 16 /min Dr. Denise Vallecillo Work Phone: [facility] 07-03-2023 10:07-0500 SaO2% (BldA) [Mass fraction] 97 % Dr. eDnise Vallecillo Work Phone: [facility] 07-03-2023 10:07-0500 Systolic blood pressure 123 mm[Hg] Dr. Denise Vallecillo Work Phone: [facility] 07-03-2023 00:08-0500 Body mass index (BMI) [Ratio] 26.7 kg/m2 Dr. Denise Vallecillo Work Phone: [facility] 07-02-2023 23:41-0500 Body temperature 98.2 [degF] Dr. Denise Vallecillo Work Phone: 8(570)868-[address] [place] [address] 07-02-2023 23:41-0500 Diastolic blood pressure 60 mm[Hg] Dr. Denise Vallecillo Work Phone: [facility] 07-02-2023 23:41-0500 Heart rate 66 /min Dr. Denise Vallecillo Work Phone: [facility] 07-02-2023 23:41-0500 Respiratory rate 18 /min Dr. Denise Vallecillo Work Phone: [facility] 07-02-2023 23:41-0500 SaO2% (BldA) [Mass fraction] 98 % Dr. Denise Vallecillo Work Phone: [facility] 07-02-2023 23:41-0500 Systolic blood pressure 108 mm[Hg] Dr. Denise Vallecillo Work Phone: [facility] 07-02-2023 16:29-0500 Body height 157.[address] Denise Vallecillo Work Phone: [facility] 07-02-2023 16:29-0500 Body mass index (BMI) [Ratio] 27 kg/m2 Dr. Denise Vallecillo Work Phone: [facility] 07-02-2023 16:29-0500 Body weight 67.[address] Denise Vallecillo Work Phone: [facility] 07-02-2023 15:39-0500 Diastolic blood pressure 63 mm[Hg] Dr. Denise Vallecillo Work Phone: [facility] 07-02-2023 15:39-0500 Heart rate 64 /min Dr. Denise Vallecillo Work Phone: [facility] 07-02-2023 15:39-0500 Respiratory rate 18 /min Dr. Denise Vallecillo Work Phone: [facility] 07-02-2023 15:39-0500 SaO2% (BldA) [Mass fraction] 98 % Dr. Denise Vallecillo Work Phone: [facility] 07-02-2023 15:39-0500 Systolic blood pressure 116 mm[Hg] Dr. Denise Vallecillo Work Phone: [facility] 07-02-2023 14:18-0500 Body temperature 98.3 [degF] Dr. Denise Vallecillo Work Phone: [facility] 07-02-2023 11:39-0500 Body height 157.[address] Denise Vallecillo Work Phone: [facility] 07-02-2023 11:39-0500 Body mass index (BMI) [Ratio] 27.3 kg/m2 Dr. Denise Vallecillo Work Phone: [facility] 07-02-2023 11:39-0500 Body weight 67.[address] Denise Vallecillo Work Phone: [facility] 06-03-2023 23:29-0500 Body mass index (BMI) [Ratio] 26.7 kg/m2 Dr. Denise Vallecillo Work Phone: 9(510)706-241621 [place] [address] 05-03-2023 23:17-0500 Body mass index (BMI) [Ratio] 26.7 kg/m2 Dr. Denise Vallecillo Work Phone: 9(591)215-422319 [place] [address] 04-06-2023 09:17-0500 Body height 157.[address] Denise Vallecillo Work Phone: 1(415)544-443819 [place] [address] 04-06-2023 09:17-0500 Body mass index (BMI) [Ratio] 26.9 kg/m2 Dr. Denise Vallecillo Work Phone: 5(151)262-193619 [place] [address] 04-06-2023 09:17-0500 Body weight 66.[address] Denise Vallecillo Work Phone: 5(403)721-821519 [place] [address] 04-06-2023 09:17-0500 Diastolic blood pressure 68 mm[Hg] Dr. Denise Vallecillo Work Phone: 9(913)808-121419 [place] [address] 04-06-2023 09:17-0500 Heart rate 72 /min Dr. Denise Vallecillo Work Phone: 3(881)423-156319 [place] [address] 04-06-2023 09:17-0500 Respiratory rate 18 /min Dr. Denise Vallecillo Work Phone: 8(786)919-486719 [place] [address] 04-06-2023 09:17-0500 Systolic blood pressure 122 mm[Hg] Dr. Denise Vallecillo Work Phone: 0(511)712-536319 [place] [address] 04-03-2023 04:00-0500 Body mass index (BMI) [Ratio] 26.7 kg/m2 Dr. Denise Vallecillo Work Phone: 6(850)326-949919 [place] [address] 03-03-2023 22:39-0400 Body mass index (BMI) [Ratio] 26.7 kg/m2 Dr. Denise Vallecillo Work Phone: 4(866)575-500619 [place] [address] 02-01-2023 04:17-0400 Body mass index (BMI) [Ratio] 26.7 kg/m2 Dr. Real Gibson Work Phone: [facility] 01-01-2023 23:25-0400 Body mass index (BMI) [Ratio] 26.7 kg/m2 Dr. Real Gibson Work Phone: [facility] 12-02-2022 01:06-0400 Body mass index (BMI) [Ratio] 26.7 kg/m2 [facility] 10-31-2022 22:45-0400 Body mass index (BMI) [Ratio] 26.7 kg/m2 [facility] 10-02-2022 14:31-0400 Body height 157.48 cm [facility] 10-02-2022 14:31-0400 Body mass index (BMI) [Ratio] 26.2 kg/m2 [facility] 10-02-2022 14:31-0400 Body weight 65.03 kg [facility] 10-02-2022 14:31-0400 Diastolic blood pressure 66 mm[Hg] [facility] 10-02-2022 14:31-0400 Heart rate 64 /min [facility] 10-02-2022 14:31-0400 Respiratory rate 16 /min [facility] 10-02-2022 14:31-0400 Systolic blood pressure 123 mm[Hg] [facility] 10-02-2022 08:21-0400 Body mass index (BMI) [Ratio] 26.7 kg/m2 [facility] 08-31-2022 02:14-0400 Body mass index (BMI) [Ratio] 26.7 kg/m2 [facility] 08-02-2022 00:01-0400 Body mass index (BMI) [Ratio] 26.7 kg/m2 [facility] 07-01-2022 22:46-0500 Body mass index (BMI) [Ratio] 26.7 kg/m2 No Primary Care Physician [facility] 06-10-2022 13:05-0500 Body weight 67.59 kg Cameron Coyle MD Work Phone: [facility] 06-10-2022 13:05-0500 Diastolic blood pressure 72 mm[Hg] Cameron Coyle MD Work Phone: [facility] 06-10-2022 13:05-0500 Heart rate 79 /min Cameron Coyle MD Work Phone: [facility] 06-10-2022 13:05-0500 Systolic blood pressure 122 mm[Hg] Cameron Coyle MD Work Phone: [facility] 06-04-2022 08:28-0500 Body mass index (BMI) [Ratio] 26.7 kg/m2 No Primary Care Physician [facility] 05-04-2022 05:19-0500 Body mass index (BMI) [Ratio] 26.7 kg/m2 No Primary Care Physician [facility] 04-24-2022 14:00-0500 Diastolic blood pressure 91 mm[Hg] No Primary Care Physician [facility] 04-24-2022 14:00-0500 Heart rate 95 /min No Primary Care Physician [facility] 04-24-2022 14:00-0500 Respiratory rate 14 /min No Primary Care Physician [facility] 04-24-2022 14:00-0500 SaO2% (BldA) [Mass fraction] 94 % No Primary Care Physician [facility] 04-24-2022 14:00-0500 Systolic blood pressure 146 mm[Hg] No Primary Care Physician [facility] 04-18-2022 09:26-0500 Body height 157.48 cm No Primary Care Physician [facility] 04-18-2022 09:26-0500 Body mass index (BMI) [Ratio] 27.4 kg/m2 No Primary Care Physician [facility] 04-18-2022 09:26-0500 Body weight 68.03 kg No Primary Care Physician [facility] 04-18-2022 09:26-0500 Diastolic blood pressure 64 mm[Hg] No Primary Care Physician [facility] 04-18-2022 09:26-0500 Heart rate 89 /min No Primary Care Physician [facility] 04-18-2022 09:26-0500 Respiratory rate 18 /min No Primary Care Physician [facility] 04-18-2022 09:26-0500 SaO2% (BldA) [Mass fraction] 94 % No Primary Care Physician [facility] 04-18-2022 09:26-0500 Systolic blood pressure 117 mm[Hg] No Primary Care Physician [facility] 04-03-2022 00:47-0500 Body mass index (BMI) [Ratio] 26.7 kg/m2 No Primary Care Physician [facility] 03-04-2022 10:01-0400 Body mass index (BMI) [Ratio] 26.7 kg/m2 No Primary Care Physician [facility] 01-31-2022 23:27-0400 Body mass index (BMI) [Ratio] 26.7 kg/m2 Dr. Polo Falk Work Phone: [facility] 01-02-2022 00:19-0400 Body mass index (BMI) [Ratio] 26.7 kg/m2 Dr. Polo Ruiz Work Phone: [facility] Work Phone: 12-16-2021 11:19-0400 Body height 157.[address] Polo Ruiz Work Phone: [facility] Work Phone: 12-16-2021 11:19-0400 Body mass index (BMI) [Ratio] 29.8 kg/m2 Dr. Polo Ruiz Work Phone: [facility] Work Phone: 12-16-2021 11:19-0400 Body weight 73.[address] Polo Ruiz Work Phone: [facility] Work Phone: 12-16-2021 11:19-0400 Diastolic blood pressure 74 mm[Hg] Dr. Polo Ruiz Work Phone: [facility] Work Phone: 12-16-2021 11:19-0400 Heart rate 80 /min Dr. Polo Ruiz Work Phone: [facility] Work Phone: 12-16-2021 11:19-0400 Respiratory rate 18 /min Dr. Polo Ruiz Work Phone: [facility] Work Phone: 12-16-2021 11:19-0400 SaO2% (BldA) [Mass fraction] 97 % Dr. Polo Ruiz Work Phone: [facility] Work Phone: 12-16-2021 11:19-0400 Systolic blood pressure 120 mm[Hg] Dr. Polo Ruiz Work Phone: [facility] Work Phone: 12-01-2021 02:59-0400 Body mass index (BMI) [Ratio] 26.7 kg/m2 Dr. Polo Ruiz Work Phone: [facility] Work Phone: 11-01-2021 07:42-0400 Body mass index (BMI) [Ratio] 26.7 kg/m2 Dr. Polo Ruiz Work Phone: [facility] Work Phone: 10-21-2021 16:27-0400 Body temperature 96.3 [degF] [employer] ANALYST-C Brittany Cunha AIR ANALYST Work Phone: [facility] Work Phone: 10-21-2021 16:27-0400 Diastolic blood pressure 42 mm[Hg] AIR ANALYST-C Brittany Cunha AIR ANALYST Work Phone: [facility] Work Phone: 10-21-2021 16:27-0400 Heart rate 74 /min AIR ANALYST-Mela Cunha AIR ANALYST Work Phone: [facility] Work Phone: 10-21-2021 16:27-0400 Respiratory rate 18 /min AIR ANALYST-Mela Cunha AIR ANALYST Work Phone: [facility] Work Phone: 10-21-2021 16:27-0400 SaO2% (BldA) [Mass fraction] 97 % [employer] ANALYST-C Brittany Cunha AIR ANALYST Work Phone: [facility] Work Phone: 10-21-2021 16:27-0400 Systolic blood pressure 107 mm[Hg] [employer] ANALYST-C Brittany Cunha AIR ANALYST Work Phone: [facility] Work Phone: 10-21-2021 05:29-0400 Inhaled oxygen concentration 21 % AIR ANALYST-C Brittany Cunha AIR ANALYST Work Phone: [facility] Work Phone: 10-16-2021 14:18-0400 Body height 157.48 cm AIR ANALYST-C Brittany Cunha AIR ANALYST Work Phone: [facility] Work Phone: 10-16-2021 14:18-0400 Body weight 142.24 kg AIR ANALYST-C Brittany Cunha AIR ANALYST Work Phone: [facility] Work Phone: 10-14-2021 10:00-0400 Heart rate 87 /min AIR ANALYST-C Brittany Cunha AIR ANALYST Work Phone: [facility] Work Phone: 10-14-2021 10:00-0400 Respiratory rate 18 /min AIR ANALYST-C Brittany Cunha AIR ANALYST Work Phone: [facility] Work Phone: 10-14-2021 04:48-0400 Inhaled oxygen concentration 21 % AIR ANALYST-C Brittany Cunha AIR ANALYST Work Phone: [facility] Work Phone: 10-13-2021 23:00-0400 SaO2% (BldA) [Mass fraction] 98 % [employer] ANALYST-C Brittany Cunha AIR ANALYST Work Phone: [facility] Work Phone: 10-13-2021 14:58-0400 Body temperature 97.2 [degF] [employer] ANALYST-C Brittany Cunha AIR ANALYST Work Phone: [facility] Work Phone: 10-13-2021 14:58-0400 Diastolic blood pressure 46 mm[Hg] AIR ANALYST-C Brittany Cunha AIR ANALYST Work Phone: [facility] Work Phone: 10-13-2021 14:58-0400 Systolic blood pressure 99 mm[Hg] AIR ANALYST-C Brittany Cunha AIR ANALYST Work Phone: [facility] Work Phone: 10-09-2021 12:24-0400 Body height 157.48 cm AIR ANALYST-C Brittany Cunha AIR ANALYST Work Phone: [facility] Work Phone: 10-09-2021 12:24-0400 Body weight 73.48 kg AIR ANALYST-C Brittany Cunha AIR ANALYST Work Phone: [facility] Work Phone: 10-08-2021 18:53-0400 Body mass index (BMI) [Ratio] 29.6 kg/m2 [employer] ANALYST-C Brittany Cunha AIR ANALYST Work Phone: [facility] Work Phone: 10-08-2021 13:59-0400 Body temperature 98.3 [degF] AIR ANALYST-C Brittany Cunha AIR ANALYST Work Phone: [facility] Work Phone: 10-08-2021 13:59-0400 Diastolic blood pressure 55 mm[Hg] AIR ANALYST-C Brittany Cunha AIR ANALYST Work Phone: [facility] Work Phone: 10-08-2021 13:59-0400 Heart rate 88 /min AIR ANALYST-C Brittany Cunha AIR ANALYST Work Phone: [facility] Work Phone: 10-08-2021 13:59-0400 Respiratory rate 16 /min AIR ANALYST-C Brittany Cunha AIR ANALYST Work Phone: [facility] Work Phone: 10-08-2021 13:59-0400 SaO2% (BldA) [Mass fraction] 98 % AIR ANALYST-C Brittany Cunha AIR ANALYST Work Phone: [facility] Work Phone: 10-08-2021 13:59-0400 Systolic blood pressure 115 mm[Hg] AIR ANALYST-C Brittany Cunha AIR ANALYST Work Phone: [facility] Work Phone: 10-08-2021 06:00-0400 Body weight 73.9 kg AIR ANALYST-C Brittany Cunha AIR ANALYST Work Phone: [facility] Work Phone: 10-08-2021 03:15-0400 Inhaled oxygen concentration 21 % AIR ANALYST-C Brittany Cunha AIR ANALYST Work Phone: [facility] Work Phone: 10-05-2021 23:09-0400 Body mass index (BMI) [Ratio] 28.8 kg/m2 [employer] ANALYST-C Brittany Cunha AIR ANALYST Work Phone: [facility] Work Phone: 10-05-2021 22:57-0400 Body temperature 98 [degF] AIR ANALYST-C Brittany Cunha AIR ANALYST Work Phone: [facility] Work Phone: 10-05-2021 22:57-0400 Diastolic blood pressure 67 mm[Hg] AIR ANALYST-C Brittany Cunha AIR ANALYST Work Phone: [facility] Work Phone: 10-05-2021 22:57-0400 Heart rate 77 /min AIR ANALYST-C Brittany Cunha AIR ANALYST Work Phone: [facility] Work Phone: 10-05-2021 22:57-0400 Respiratory rate 18 /min AIR ANALYST-C Brittany Cunha AIR ANALYST Work Phone: [facility] Work Phone: 10-05-2021 22:57-0400 SaO2% (BldA) [Mass fraction] 99 % AIR ANALYST-C Brittany Cunha AIR ANALYST Work Phone: [facility] Work Phone: 10-05-2021 22:57-0400 Systolic blood pressure 134 mm[Hg] AIR ANALYST-C Brittany Cunha AIR ANALYST Work Phone: [facility] Work Phone: 10-05-2021 19:58-0400 Body height 157.48 cm AIR ANALYST-C Brittany Cunha AIR ANALYST Work Phone: [facility] Work Phone: 10-05-2021 19:58-0400 Body mass index (BMI) [Ratio] 28.3 kg/m2 [employer] ANALYST-C Brittany Cunha AIR ANALYST Work Phone: [facility] Work Phone: 10-05-2021 19:58-0400 Body weight 70.3 kg AIR ANALYST-C Brittany Cunha AIR ANALYST Work Phone: [facility] Work Phone: 10-01-2021 21:20-0400 Body mass index (BMI) [Ratio] 26.7 kg/m2 [employer] ANALYST-C Brittany Cunha AIR ANALYST Work Phone: [facility] Work Phone: 09-01-2021 04:45-0400 Body mass index (BMI) [Ratio] 26.7 kg/m2 Karla Hong [facility] Work Phone: 08-05-2021 10:07-0400 Body temperature 97.2 [degF] Lucía Barraza APRN.ORDER DESK CLERK Work Phone: [facility] 08-05-2021 10:07-0400 Body weight 70.31 kg Lucía Barraza APRN.ORDER DESK CLERK Work Phone: [facility] 08-05-2021 10:07-0400 Diastolic blood pressure 68 mm[Hg] Lucía Barraza APRN.ORDER DESK CLERK Work Phone: [facility] 08-05-2021 10:07-0400 Heart rate 84 /min Lucía Barraza APRN.ORDER DESK CLERK Work Phone: [facility] 08-05-2021 10:07-0400 Respiratory rate 16 /min Lucía Barraza DRIER.ORDER DESK CLERK Work Phone: [facility] 08-05-2021 10:07-0400 SaO2% (BldA) [Mass fraction] 99 % Lucía Barraza DRIER.ORDER DESK CLERK Work Phone: [facility] 08-05-2021 10:07-0400 Systolic blood pressure 110 mm[Hg] Lucía Barraza DRIER.ORDER DESK CLERK Work Phone: [facility] 08-02-2021 03:37-0400 Body mass index (BMI) [Ratio] 26.7 kg/m2 Karla Hong [facility] Work Phone: 07-09-2021 11:09-0500 Body mass index (BMI) [Ratio] 28.5 kg/m2 AIR ANALYST-C Brittany Cunha AIR ANALYST Work Phone: [facility] Work Phone: 07-09-2021 11:09-0500 Body weight 70.76 kg AIR ANALYST-C Brittany Cunha AIR ANALYST Work Phone: [facility] Work Phone: 07-09-2021 11:09-0500 Diastolic blood pressure 64 mm[Hg] AIR ANALYST-C Brittany Cunha AIR ANALYST Work Phone: [facility] Work Phone: 07-09-2021 11:09-0500 Heart rate 77 /min AIR ANALYST-C Brittany Cunha AIR ANALYST Work Phone: [facility] Work Phone: 07-09-2021 11:09-0500 Respiratory rate 18 /min AIR ANALYST-C Brittany Cunha AIR ANALYST Work Phone: [facility] Work Phone: 07-09-2021 11:09-0500 SaO2% (BldA) [Mass fraction] 95 % AIR ANALYST-C Brittany Cunha AIR ANALYST Work Phone: [facility] Work Phone: 07-09-2021 11:09-0500 Systolic blood pressure 105 mm[Hg] TAN Cunha AIR ANALYST Work Phone: [facility] Work Phone: 07-09-2021 10:09-0500 Body height 157.48 cm [facility] Work Phone: 07-09-2021 10:09-0500 Body mass index (BMI) [Ratio] 28.5 kg/m2 [facility] Work Phone: 07-09-2021 10:09-0500 Body weight 70.76 kg [facility] Work Phone: 07-09-2021 10:09-0500 Diastolic blood pressure 64 mm[Hg] [facility] Work Phone: 07-09-2021 10:09-0500 Heart rate 77 /min [facility] Work Phone: 07-09-2021 10:09-0500 Respiratory rate 18 /min [facility] Work Phone: 07-09-2021 10:09-0500 SaO2% (BldA) [Mass fraction] 95 % [facility] Work Phone: 07-09-2021 10:09-0500 Systolic blood pressure 105 mm[Hg] [facility] Work Phone: 07-02-2021 10:26-0500 Body mass index (BMI) [Ratio] 26.7 kg/m2 TAN Cunha AIR ANALYST Work Phone: [facility] Work Phone: 07-02-2021 09:26-0500 Body mass index (BMI) [Ratio] 26.7 kg/m2 [facility] Work Phone: 06-06-2021 12:28-0500 Body mass index (BMI) [Ratio] 28.5 kg/m2 [facility] Work Phone: 06-06-2021 12:28-0500 Body weight 70.76 kg [facility] Work Phone: 06-06-2021 12:28-0500 Diastolic blood pressure 72 mm[Hg] [facility] Work Phone: 06-06-2021 12:28-0500 Heart rate 88 /min [facility] Work Phone: 06-06-2021 12:28-0500 Respiratory rate 18 /min [facility] Work Phone: 06-06-2021 12:28-0500 SaO2% (BldA) [Mass fraction] 95 % [facility] Work Phone: 06-06-2021 12:28-0500 Systolic blood pressure 115 mm[Hg] [facility] Work Phone: 06-04-2021 02:18-0500 Body mass index (BMI) [Ratio] 26.7 kg/m2 TAN Cunha NP Work Phone: [facility] Work Phone: 06-04-2021 01:18-0500 Body mass index (BMI) [Ratio] 26.7 kg/m2 [facility] Work Phone: 05-18-2021 19:29-0500 Diastolic blood pressure 64 mm[Hg] [facility] Work Phone: 05-18-2021 19:29-0500 Heart rate 89 /min [facility] Work Phone: 05-18-2021 19:29-0500 Systolic blood pressure 115 mm[Hg] [facility] Work Phone: 05-18-2021 19:21-0500 Body temperature 97.7 [degF] [facility] Work Phone: 05-18-2021 19:21-0500 Respiratory rate 18 /min [facility] Work Phone: 05-18-2021 19:21-0500 SaO2% (BldA) [Mass fraction] 97 % [facility] Work Phone: 05-18-2021 04:13-0500 Body weight 73.1 kg [facility] Work Phone: 05-18-2021 03:20-0500 Body mass index (BMI) [Ratio] 29.5 kg/m2 [facility] Work Phone: 05-09-2021 09:46-0500 Body temperature 97.5 [degF] [facility] Work Phone: 05-09-2021 09:46-0500 Diastolic blood pressure 47 mm[Hg] [facility] Work Phone: 05-09-2021 09:46-0500 Heart rate 59 /min [facility] Work Phone: 05-09-2021 09:46-0500 Respiratory rate 16 /min [facility] Work Phone: 05-09-2021 09:46-0500 SaO2% (BldA) [Mass fraction] 98 % [facility] Work Phone: 05-09-2021 09:46-0500 Systolic blood pressure 105 mm[Hg] [facility] Work Phone: 05-06-2021 15:39-0500 Body mass index (BMI) [Ratio] 27.8 kg/m2 [facility] Work Phone: 05-06-2021 15:39-0500 Body weight 69.1 kg [facility] Work Phone: 05-06-2021 01:29-0500 Body mass index (BMI) [Ratio] 26.7 kg/m2 [facility] Work Phone: 05-06-2021 00:24-0500 Diastolic blood pressure 62 mm[Hg] [facility] Work Phone: 05-06-2021 00:24-0500 Heart rate 60 /min [facility] Work Phone: 05-06-2021 00:24-0500 Respiratory rate 15 /min [facility] Work Phone: 05-06-2021 00:24-0500 SaO2% (BldA) [Mass fraction] 100 % [facility] Work Phone: 05-06-2021 00:24-0500 Systolic blood pressure 110 mm[Hg] [facility] Work Phone: 05-05-2021 17:47-0500 Body mass index (BMI) [Ratio] 28.3 kg/m2 [facility] Work Phone: 05-05-2021 17:47-0500 Body temperature 97.8 [degF] [facility] Work Phone: 05-05-2021 17:47-0500 Body weight 70.3 kg [facility] Work Phone: 04-03-2021 02:44-0500 Body mass index (BMI) [Ratio] 26.7 kg/m2 [facility] Work Phone: Encounters Encounter Date Encounter Type Care Provider Facility Start: [facility]03[facility] Start: 03-04-2025 ambulatory [facility] Facility:[facility] Start: 02-15-2025 End: 02-15-2025 ambulatory [facility] Facility:[facility] Start: 01-24-2025 End: 01-24-2025 ambulatory LOREE DILAURO Work Phone: -[facility] Start: 01-24-2025 End: 01-24-[address] Real Gibson MD -[facility] Work Phone: Start: 01-18-2025 End: [...] End: 12-01-2024 ambulatory LOREE DILAURO Work Phone: -[facility] Start: 12-01-2024 End: 12-01-[address] Real Gibson MD -[facility] Work Phone: Start: 11-09-[address] Real Gibson MD -Laboratory Work Phone: Start: 10-25-2024 End: 10-25-2024 ambulatory Samantha Anglin MD Work Phone: -[facility] Start: 10-25-2024 End: 10-25-[address] Real Gibson MD -[facility] Work Phone: Start: 10-07-2024 End: 10-07-[address] Real Gibson MD -Laboratory Work Phone: Start: 10-07-[address] Real Gibson MD -Laboratory Work Phone: Start: 10-07-2024 End: 10-07-2024 ambulatory Samantha Anglin MD Work Phone: -Laboratory Start: 09-14-2024 ambulatory Chalon Derrek Facility:[facility] Start: 09-14-2024 Non-patient / Non-visit Dr. Avtar Desir MD -[facility] Start: 09-14-2024 ambulatory Chalon Derrek Facility:[facility] Start: 09-14-2024 Non-patient / Non-visit Dr. Avtar Desir MD -[facility] Start: 09-14-2024 End: 09-14-2024 Admission to same day surgery center Dr. Avtar Desir MD -Endoscopy Work Phone: Start: 09-14-2024 End: 09-14-2024 ambulatory Samantha Anglin MD Work Phone: [facility] Work Phone: Start: 08-25-2024 End: 08-31-2024 ambulatory SHELLY DEBORAH Facility:[facility] Start: 08-25-2024 End: 08-31-[address] Real Gibson MD -Laboratory Work Phone: Start: 08-25-2024 ambulatory Chalon Derrek Facility:[facility] Start: 08-01-2024 End: 08-01-[address] Avtar Desir MD -[facility] Work Phone: Start: 08-01-2024 End: 08-01-2024 ambulatory Chalon Derrek Facility:[facility] Start: 07-29-2024 End: 07-29-2024 ambulatory Samantha Anglin MD Work Phone: [facility] Work Phone: Start: 07-29-2024 End: 07-29-[address] Real Gibson MD -Laboratory Work Phone: Start: 07-25-2024 End: 07-25-2024 ambulatory Real Gibson Facility:[facility] Start: 07-25-2024 End: 07-25-[address] Real Gibson MD -[facility] Work Phone: Start: 06-17-2024 End: 07-01-[address] Real Gibson MD -Laboratory Work Phone: Start: 06-17-2024 End: 07-01-2024 ambulatory Chalon Derrek Facility:[facility] Start: 06-17-2024 Non-patient / Non-visit Dr. Glenda WARD -[facility] Start: 06-17-2024 End: 06-17-2024 Patient encounter procedure Speedy MADDOX -Cardiovascular Services Work Phone: Start: 06-17-2024 End: 06-17-2024 ambulatory Chalon Derrek Facility:[facility] Start: 06-02-2024 End: 06-02-2024 Patient encounter procedure Speedy MADDOX -[facility] Work Phone: Start: 06-02-2024 End: 06-02-2024 ambulatory Chalon Derrek Facility:[facility] Start: 06-02-2024 End: 06-02-[address] Real Gibson MD -Laboratory Work Phone: Start: 05-18-2024 ambulatory Chalon Derrek Facility:[facility] Start: 05-17-2024 End: 05-17-2024 Patient encounter procedure SHELLY CABRERA MD -Laboratory Work Phone: Start: 05-17-2024 End: 05-17-2024 ambulatory Chalon Derrek Facility:[facility] Start: 05-03-2024 End: 05-03-[address] Samantha Anglin MD -Laboratory Work Phone: Start: 05-03-2024 End: 05-03-2024 ambulatory Chalon Derrek Facility:[facility] Start: 04-28-2024 End: 04-28-[address] Real Gibson MD -Laboratory Work Phone: Start: 04-28-2024 End: 04-28-2024 ambulatory Chalon Derrek Facility:[facility] Start: 04-26-2024 End: 04-26-2024 ambulatory Chalon Derrek Facility:[facility] Start: 04-26-2024 End: 04-26-[address] Real Gibson MD -[facility] Work Phone: Start: 04-07-2024 End: 04-07-2024 ambulatory Chalon Derrek Facility:[facility] Start: 04-07-2024 End: 04-07-[address] Samantha Anglin MD -Physical Therapy Work Phone: Start: 03-30-2024 End: 04-02-2024 ambulatory Chalon Derrek Facility:[facility] Start: 03-21-2024 End: 03-21-2024 ambulatory [facility] Facility:[facility] Start: 10-26-2023 End: 10-26-2023 ambulatory RANDI ESCOBAR Not Available Start: 09-10-2023 Non-patient / Non-visit Dr. Jono Vallecillo Work Phone: [facility] Start: 09-10-2023 End: 09-10-2023 Admission to same day surgery center Dr. Denise Vallecillo Work Phone: [facility]-Endoscopy Work Phone: Start: 09-10-2023 End: 09-10-[address] Denise Vallecillo Work Phone: [facility] Work Phone: Start: 08-27-2023 End: 09-01-[address] Denise Vallecillo Work Phone: [facility] Work Phone: Start: 08-27-2023 End: 09-01-[address] [facility] Start: 08-05-2023 End: 08-05-[address] Denise Vallecillo Work Phone: [facility] Work Phone: Start: 07-30-2023 End: 07-30-[address] Denise Vallecillo Work Phone: [facility] Work Phone: Start: 07-27-2023 End: 08-02-[address] Denise Vallecillo Work Phone: [facility] Work Phone: Start: 07-27-2023 End: 08-02-[address] Denise [facility]cillo [facility]: Start: 07-13-[address] Cherrie Vallecillo [facility]: Start: 07-09-2023 End: 07-09-[address] Denise Vallecillo Work Phone: [facility] Work Phone: Start: 07-09-2023 End: 07-09-[address] Denise Vallecillo Work Phone: [facility] Start: 07-03-2023 Non-patient / Non-visit Dr. Jono Vallecillo Work Phone: [facility] Work Phone: Start: 07-02-2023 Non-patient / Non-visit Dr. Jono Vallecillo Work Phone: [facility] Work Phone: Start: 07-02-2023 End: 07-03-2023 Evaluation and management of inpatient Dr. Denise Vallecillo [facility]: [facility] Work Phone: Start: 06-30-2023 End: 07-02-[address] Denise Vallecillo Work Phone: [facility] Work Phone: Start: 06-30-2023 End: 07-02-[address] Denise Vallecillo [facility]: Start: 06-30-[address] Cherrie Vallecillo Work Phone: [facility]-Laboratory Work Phone: Start: 06-02-2023 End: 06-02-[address] Denise Vallecillo Work Phone: [facility] Work Phone: Start: 06-02-2023 End: 06-02-[address] Denise Vallecillo Work Phone: [facility]-Laboratory Work Phone: Start: 04-13-2023 End: 05-03-[address] Denise Vallecillo Work Phone: [facility] Work Phone: Start: 04-13-2023 End: 05-03-[address] Denise Vallecillo [facility]: Start: 04-06-2023 End: 04-07-2023 ambulatory [facility] Start: 04-06-2023 End: 04-06-[address] Denise Vallecillo Work Phone: [facility] Work Phone: Start: 03-25-2023 End: 03-25-[address] Denise Vallecillo Work Phone: [facility] Work Phone: Start: 03-23-2023 End: 04-02-[address] Denise Vallecillo [facility]: Start: 03-02-2023 End: 03-02-[address] Real Gibson Work Phone: [facility] Work Phone: Start: 03-02-2023 End: 03-02-[address] Real Gibson [facility]: Start: 01-29-2023 End: 01-29-[address] Real Gibson Work Phone: [facility] Work Phone: Start: 01-29-2023 End: 01-29-[address] Real Gibson [facility]: Start: 01-29-2023 End: 01-29-[address] Denise Vallecillo Work Phone: [facility] Work Phone: Start: 01-22-2023 End: 01-22-[address] Real Gibson Work Phone: [facility]-Outpatient Bone Densitometry Work Phone: Start: 12-22-2022 End: 12-22-2022 ambulatory [facility] Work Phone: Start: 12-22-2022 End: 12-22-2022 Discharged Recurring [facility]-Laboratory Work Phone: Start: 12-22-2022 Registered Recurring [facility]-Laboratory Work Phone: Start: 12-22-2022 End: 12-22-2022 ambulatory [facility] Work Phone: Start: 12-22-2022 End: 12-22-2022 Patient encounter procedure [facility]-Outpatient Breast Imaging Work Phone: Start: 11-27-2022 End: 12-01-2022 ambulatory [facility] Work Phone: Start: 11-27-2022 End: 12-01-2022 Discharged Recurring [facility]-Laboratory Work Phone: Start: 11-27-2022 Non-patient / Non-visit SAROJ WAYNE BERNARDA [facility] Start: 11-27-2022 End: 11-27-2022 ambulatory [facility] Work Phone: Start: 11-27-2022 End: 11-27-2022 Patient encounter procedure [facility]-Cardiovascular Services Work Phone: Start: 10-27-2022 End: 10-27-2022 Discharged Recurring [facility]-Laboratory Work Phone: Start: 10-24-2022 End: 10-24-2022 Patient encounter procedure [facility] Work Phone: Start: 10-02-2022 End: 10-02-2022 Patient encounter procedure SAROJADRIÁN VALLECILLO [facility] Work Phone: Start: 09-26-2022 End: 09-26-2022 ambulatory [facility] Work Phone: Start: 09-26-2022 End: 09-26-2022 Discharged Recurring [facility]-Laboratory Start: 08-29-2022 End: 08-31-2022 ambulatory [facility] Work Phone: Start: 08-29-2022 End: 08-31-2022 Discharged Recurring [facility]-Laboratory Start: 08-01-2022 End: 08-02-2022 ambulatory No Primary Care Physician [facility] Work Phone: Start: 08-01-2022 End: 08-02-2022 Discharged Recurring No Primary Care Physician [facility]-Laboratory Start: 07-14-2022 End: 07-14-2022 Patient encounter procedure No Primary Care Physician [facility] Start: 07-11-2022 Registered Recurring No Primar y Care Physician [facility]-Laboratory Start: 06-27-2022 End: 06-27-2022 ambulatory No Primary Care Physician [facility] Work Phone: Start: 06-27-2022 End: 06-27-2022 Discharged Recurring No Primary Care Physician [facility]-Laboratory Start: 06-10-2022 End: 06-10-2022 ambulatory CAMERON COYLE [facility] Start: 06-10-2022 End: 06-10-2022 Office outpatient new 45 minutes Cameron Coyle MD Work Phone: [facility] Comment on above: Lumbar stenosis with neurogenic claudication (Primary Dx) Start: 05-30-2022 End: 05-30-2022 ambulatory No Primary Care Physician [facility] Work Phone: Start: 05-30-2022 End: 05-30-2022 Discharged Recurring No Primary Care Physician [facility]-Laboratory Start: 05-06-2022 Registered Recurring No Primar y Care Physician [facility]-Laboratory Start: 05-01-2022 End: 05-01-2022 ambulatory No Primary Care Physician [facility] Work Phone: Start: 05-01-2022 End: 05-01-2022 Patient encounter procedure No Primary Care Physician [facility]-Laboratory, Specimen Start: 04-30-2022 End: 04-30-2022 ambulatory No Primary Care Physician [facility] Work Phone: Start: 04-30-2022 End: 04-30-2022 Patient encounter procedure No Primary Care Physician [facility]-Laboratory, [place] Start: 04-30-2022 End: 04-30-2022 Patient encounter procedure No Primary Care Physician [facility] Start: 04-29-2022 Non-patient / Non-visit No Carmina john Care Physician [facility] Start: 04-24-2022 End: 04-24-2022 ambulatory No Primary Care Physician [facility] Work Phone: Start: 04-24-2022 End: 04-24-2022 Patient encounter procedure No Primary Care Physician [facility] Start: 04-22-2022 End: 04-22-2022 ambulatory No Primary Care Physician [facility] Work Phone: Start: 04-22-2022 End: 04-22-2022 Discharged Recurring No Primary Care Physician [facility]-Laboratory Start: 04-18-2022 End: 04-18-2022 Patient encounter procedure No Primary Care Physician [facility] Start: 04-11-2022 End: 04-11-2022 ambulatory No Primary Care Physician [facility] Work Phone: Start: 04-11-2022 End: 04-11-2022 Discharged Recurring No Primary Care Physician [facility]-Physical Therapy Start: 04-08-2022 Registered Recurring No Primar y Care Physician [facility]-Laboratory Start: 04-02-2022 End: 04-02-2022 Discharged Recurring No Primary Care Physician [facility]-Laboratory Start: 03-03-2022 Registered Recurring No Primar y Care Physician [facility]-Physical Therapy Start: 02-28-2022 End: 03-03-2022 ambulatory No Primary Care Physician [facility] Work Phone: Start: 02-28-2022 End: 03-03-2022 Discharged Recurring No Primary Care Physician [facility]-Laboratory Start: 02-24-2022 Registered Recurring No Primar y Care Physician [facility]-Physical Therapy Start: 02-19-2022 Registered Recurring No Primar y Care Physician [facility]-Laboratory Start: 02-18-[address] Polo Falk Work Phone: [facility]-Physical Therapy Start: 02-18-2022 End: 02-18-2022 ambulatory No Primary Care Physician [facility] Work Phone: Start: 02-18-2022 End: 02-18-[address] Polo Falk Work Phone: [facility]-Outpatient Breast Imaging Start: 02-12-[address] Polo Falk Work Phone: [facility]-Laboratory Start: 01-28-2022 End: 01-28-[address] Polo Ruiz Work Phone: [facility] Work Phone: Start: 01-28-2022 End: 01-28-[address] Polo Ruiz Work Phone: [facility]-Laboratory Start: 01-22-2022 End: 01-22-[address] Polo Ruiz Work Phone: [facility] Start: 12-16-2021 End: 12-16-[address] Polo Ruiz Work Phone: [facility] Start: 12-16-2021 End: 12-16-[address] Polo Ruiz Work Phone: [facility] Work Phone: Start: 12-16-2021 End: 12-16-[address] Polo Ruiz Work Phone: [facility]-Laboratory Start: 12-09-2021 End: 12-09-[address] Polo Falk Work Phone: [facility] Work Phone: Start: 12-09-2021 End: 12-09-[address] Polo Ruiz Work Phone: [facility]-Ultrasound, [facility] Start: 11-20-2021 End: 12-01-[address] Polo Ruiz Work Phone: [facility]-Laboratory Start: 10-31-2021 Telephone encounter Aniya Domzeus [facility] Work Phone: [facility] Internal Medicine [facility] ([facility]) Comment on above: Coumadin/INR Start: 2021 Telephone encounter Jean-Pierre estrella MD Work Phone: [facility] Cardiology [place] Comment on above: Orders Start: 2021 End: 2021 Discharged Recurring AIR ANALYST-C Brittany Cunha AIR ANALYST Work Phone: [facility]-Laboratory Start: 10-21-2021 End: 10-21-[address] Polo Ruiz Work Phone: [facility] Start: 10-18-2021 End: 10-18-2021 Patient encounter procedure AIR ANALYST-Mela Cunha AIR ANALYST Work Phone: [facility] Start: 10-14-2021 End: 10-14-2021 Patient encounter procedure AIR ANALYST-Mela Cunha AIR ANALYST Work Phone: [facility]-Cardiovascular Services Start: 10-08-2021 End: 10-21-2021 Evaluation and management of inpatient AIR ANALYST-Mela Cunha AIR ANALYST Work Phone: [facility]-Transitional Care Unit Start: 10-08-2021 Non-patient / Non-visit AIR ANALYST-C Yana Cunha AIR ANALYST Work Phone: [facility] Inpatient Physicians Start: 10-07-2021 Non-patient / Non-visit AIR ANALYST-C Yana Cunha AIR ANALYST Work Phone: [facility] Inpatient [facility]icians Start: 10-06-2021 Non-patient / Non-visit AIR ANALYST-C Yana Cunha AIR ANALYST Work Phone: [facility]patient [facility]icians Start: 10-05-2021 End: 10-08-2021 Evaluation and management of inpatient AIR ANALYST-Mela Cunha AIR ANALYST [facility]: [facility] Start: 09-25-2021 Telephone encounter Coumadin C linic Ag Imca Work Phone: [facility] Internal [facility] ([facility]) Comment on above: Results (inr ) Start: 09-25-2021 End: 09-25-2021 Discharged Recurring [facility]-Laboratory Start: 08-28-2021 End: 08-28-2021 Discharged Recurring [facility]-Laboratory Start: 08-05-2021 End: 08-05-2021 Patient encounter procedure Lcuía Barraza APRN.ORDER DESK CLERK Work Phone: [facility] Comment on above: Close exposure to [place] VID-19 virus (Primary Dx) Start: 07-30-2021 Telephone encounter Coumadin C linic Ag Imca Work Phone: [facility] Internal [facility] ([facility] [facility] Comment on above: Coumadin/INR Start: 07-29-2021 End: 08-01-2021 Discharged Recurring [facility] Start: 07-09-2021 End: 07-09-2021 Patient encounter procedure [facility] Start: 07-01-2021 End: 07-01-2021 Discharged Recurring [facility] Start: 06-06-2021 End: 06-06-2021 Patient encounter procedure [facility] Start: 06-06-2021 End: 06-06-2021 Patient encounter procedure [facility] Start: 05-31-2021 End: 06-03-2021 Discharged Recurring [facility] Start: 05-18-2021 [facility] Start: 05-18-2021 End: 05-18-2021 [facility] Start: 05-09-2021 Non-patient / Non-visit [facility] Start: 05-09-2021 Non-patient / Non-visit [facility] Start: 05-08-2021 Non-patient / Non-visit [facility] Start: 05-07-2021 [facility] Start: 05-07-2021 Non-patient / Non-visit [facility] Start: 05-06-2021 Non-patient / Non-visit [facility] Start: 05-06-2021 End: 05-09-2021 [facility] Start: 05-05-2021 End: 05-06-2021 Emergency department patient visit [facility] Start: 04-19-2021 End: 05-04-2021 Discharged Recurring [facility] Start: 10-28-2017 Ambulatory UNKNOWN PROVIDER [facility] Procedures Date Procedure Procedure Detail Performing Clinician [...] Start: 10-08-2021 End: 10-08-2021 Viral antigen assay AIR ANALYST-C Brittany Cunha N P Work Phone: Start: 10-05-2021 Plain chest X-ray AIR ANALYST-C Brittany Cunha AIR ANALYST Work Phone: Start: 10-05-2021 Plain x-ray of pelvi s and lower extremity AIR ANALYST-C Brittany Cunha AIR ANALYST Work Phone: Start: 10-05-2021 X-ray of both feet AIR ANALYST-C Brittany Cunha AIR ANALYST Work Phone: Start: 09-25-2021 PROTHROMBIN TIME/PT [facility] Provider Start: 07-29-2021 PROTHROMBIN TIME/PT [facility] Provider Start: 05-18-2021 SARS-CoV-2 Antigen (Rapid) KEYLA VALLECILLO Start: 05-18-2021 Plain chest X-ray CHRISTINA PENARO Start: 05-06-2021 SARS-CoV-2 Antigen (Rapid) KEYLA VALLECILLO Start: 05-05-2021 Plain chest X-ray CHRISTINA VALLECILLO Viral antigen assay AIR ANALYST-C Eleuterio Cunha AIR ANALYST Work Phone: Plan of Treatment Date Care Activity Detail Author Start: 09-14-2024 Colonoscopy w/biopsy single/multiple COLONOSCOPY AND BIOPSY [facility] Start: 09-14-2024 Egd removal tumor polyp/other lesion snare tech EGD REMOVE LESION SNARE [facility] Start: 09-14-2024 Egd transoral biopsy single/multiple EGD BIOPSY SINGLE/MULTIPLE [facility] Start: 09-14-2024 Patient discharge [facility] Start: 05-21-2024 DIABETES SCREEN DIABETES SCREEN [facility] Start: 09-10-2023 Patient discharge [facility] Start: 07-03-2023 Patient discharge [facility] Start: 07-03-2023 Prothrombin time [facility] Start: 07-02-2023 End: 07-02-2023 [facility] Start: 07-02-2023 Following clinical pathway protocol [facility] Start: 07-02-2023 Ambulation without limitation [facility] Start: 07-02-2023 Assessment of risk o f venous thromboembolism [facility] Start: 07-02-2023 Insertion of cathete r into peripheral vein [facility] Start: 07-02-2023 Providing care accor ding to standard [facility] Start: 07-02-2023 Verification routine [facility] Start: 07-02-2023 Admission procedure [facility] Start: 07-02-2023 [facility] Start: 05-01-2022 Protein measurement [facility] Work Phone: Start: 12-10-2021 COVID-19 Vaccine (5 - Booster for Pfizer series) COVID-19 Vaccine (5 - Booster for Pfizer series) [facility] Start: 11-11-2021 Prothrombin time [facility] Work Phone: Start: 11-07-2021 Prothrombin time [facility] Work Phone: Start: 11-06-2021 Blood chemistry [facility] Work Phone: Start: 11-04-[address] [facility] [facility] Work Phone: Start: 10-31-2021 Prothrombin time [facility] Work Phone: Start: 10-30-2021 Blood chemistry [facility] Work Phone: Start: 10-28-2021 Prothrombin time [facility] Work Phone: Start: 10-27-2021 Development of care plan [facility] Work Phone: Start: 10-27-2021 SARS-CoV-2 (COVID-19 ) Ag [Presence] in Respiratory specimen by Rapid immunoassay [facility] Work Phone: Start: 10-24-2021 Prothrombin time [facility] Work Phone: Start: 2021 Blood chemistry [facility] Work Phone: Start: 10-21-2021 Patient discharge [facility] Work Phone: Start: 10-19-2021 [facility] Work Phone: Start: 10-16-2021 Referral to service [facility] Work Phone: Start: 10-11-2021 [facility] Work Phone: Start: 10-10-2021 [facility] Work Phone: Start: 10-09-2021 Development of care plan [facility] Work Phone: Start: 10-09-2021 [facility] Work Phone: Start: 10-09-2021 Developing a treatme nt plan [facility] Work Phone: Start: 10-08-2021 Verification routine [facility] Work Phone: Start: 10-08-2021 Continuous positive airway pressure ventilation treatment [facility] Work Phone: Start: 10-08-2021 Continuous pulse oximetry [facility] Work Phone: Start: 10-08-2021 Admission procedure [facility] Work Phone: Start: 10-08-2021 Measuring intake and output [facility] Work Phone: Start: 10-08-2021 Patient referral to dietitian [facility] Work Phone: Start: 10-08-2021 Referral to occupati onal therapist [facility] Work Phone: Start: 10-08-2021 Referral to service [facility] Work Phone: Start: 10-08-2021 Vital signs measurements [facility] Work Phone: Start: 10-08-2021 [facility] Work Phone: Start: 10-08-2021 Patient discharge [facility] Work Phone: Start: 10-07-2021 [facility] Work Phone: Start: 10-06-2021 Following clinical pathway protocol [facility] Work Phone: Start: 10-06-2021 Continuous pulse oximetry [facility] Work Phone: Start: 10-05-2021 Following clinical pathway protocol [facility] Work Phone: Start: 10-05-2021 Application of elast ic bandage [facility] Work Phone: Start: 10-05-2021 Application of ice collar, cap or bag [facility] Work Phone: Start: 10-05-2021 Application of intermittent pneumatic compression device [facility] Work Phone: Start: 10-05-2021 Aspiration precautions [facility] Work Phone: Start: 10-05-2021 Assessment of risk o f venous thromboembolism [facility] Work Phone: Start: 10-05-2021 Continuous positive airway pressure ventilation treatment [facility] Work Phone: Start: 10-05-2021 Fall prevention [facility] Work Phone: Start: 10-05-2021 Incentive spirometry [facility] Work Phone: Start: 10-05-2021 Inhalation therapy procedure [facility] Work Phone: Start: 10-05-2021 Insertion of cathete r into peripheral vein [facility] Work Phone: Start: 10-05-2021 Introduction of urin hai catheter [facility] Work Phone: Start: 10-05-2021 Measuring intake and output [facility] Work Phone: Start: 10-05-2021 Oxygen therapy [facility] Work Phone: Start: 10-05-2021 Providing care accor ding to standard [facility] Work Phone: Start: 10-05-2021 Provision of activit y privileges [facility] Work Phone: Start: 10-05-2021 Referral to occupati onal therapist [facility] Work Phone: Start: 10-05-2021 Referral to service [facility] Work Phone: Start: 10-05-2021 Skin care [facility] Work Phone: Start: 10-05-2021 [facility] Work Phone: Start: 10-05-2021 Admission procedure [facility] Work Phone: Start: 08-05-2021 End: 08-19-2021 Influenza virus A and B RNA and SARS-CoV-2 (COVID-19) N gene panel - Respiratory specimen by DWAYNE with probe detection [facility] Work Phone: Comment on above: Expected: 08/05/2021 , Expires: 08/19/2021 Start: 05-04-2021 ADVANCE DIRECTIVE DISCUSSION ADVANCE DIRECTIVE DISCUSSION [facility] Start: 07-03-2011 Pneumococcal Vaccine : 65+ Years (2 - PCV) Pneumococcal Vaccine: 65+ Years (2 - PCV) [facility] Start: 10-24-2007 PNEUMOCOCCAL: 65+ (1 - PCV) PNEUMOCOCCAL: 65+ (1 - PCV) [facility] Start: 10-24-2007 PNEUMOVAX AGE 65 AND OVER WITH 5YR LOOKBACK (#1) PNEUMOVAX AGE 65 AND OVER WITH 5YR LOOKBACK (#1) [facility] Start: 1992 SHINGRIX VACCINE (1 of 2) RAMOS GRIX VACCINE (1 of 2) [facility] Start: 1992 Zoster Vaccines (1 of 2) Zoste r Vaccines (1 of 2) [facility] Start: 1961 DTaP/Tdap/Td Vaccine s (1 - Tdap) DTaP/Tdap/Td Vaccines (1 - Tdap) [facility] Start: 1961 Urine microalbumin profile DTAP,TDAP,TD (1 - Tdap) [facility] Start: 1960 Diabetes mellitus screening Diabetes Screening [facility] Start: 1960 HEPATITIS C SCREENING HEPATITIS C [facility] Start: 1960 Hepatitis C screening Hepatitis C [facility] Start: 1954 Adult depression screening assessment DEPRESSION SCREENING [facility] Start: 1942 Hepatitis B Vaccines (1 of 3 - 3-dose series) Hepatitis B Vaccines (1 of 3 - 3-dose series) [facility] Start: 1942 Screening for osteoporosis Bone Density Scan [facility]ion gap [facility] Work Phone: BUN/Creatinine ratio [facility] Work Phone: Calcium [Mass/volume ] in Serum or Plasma [facility] Work Phone: Carbon dioxide, tota l [Moles/volume] in Serum or Plasma [facility] Work Phone: Chloride [Moles/volu me] in Serum or Plasma [facility] Work Phone: Colonoscopy [facility] Creatinine [Moles/vo lume] in Serum or Plasma [facility] Work Phone: Erythrocyte mean corpuscular volume determination [facility] Glucose [Mass/volume ] in Serum or Plasma [facility] Work Phone: Hematocrit [Volume Fraction] of Blood [facility] Work Phone: Hematocrit [Volume Fraction] of Blood [facility] Hematocrit [Volume Fraction] of Blood [facility] Hemoglobin [Mass/vol ume] in Blood [facility] Work Phone: Hemoglobin [Mass/vol ume] in Blood [facility] Hemoglobin [Mass/vol ume] in Blood [facility] INR in Blood by Coagulation assay [facility] Work Phone: INR in Blood by Coagulation assay [facility] Leukocytes [#/volume ] in Blood [facility] Work Phone: Leukocytes [#/volume ] in Blood [facility] Mean corpuscular hemoglobin concentration determination [facility] Work Phone: Mean corpuscular hemoglobin concentration determination [facility] Mean corpuscular hemoglobin determination [facility] Work Phone: Mean corpuscular hemoglobin determination [facility] Measurement of renal function [facility] Work Phone: Neutrophil count [facility] Work Phone: Neutrophil count [facility] Neutrophil percent differential count [facility] Work Phone: Neutrophil percent differential count [facility] Patient Education ED AFIB [facility] Work Phone: Patient referral [facility] Work Phone: Platelets [#/volume] in Blood [facility] Work Phone: Platelets [#/volume] in Blood [facility] Potassium [Moles/vol ume] in Serum or Plasma [facility] Work Phone: Protein measurement [facility] Work Phone: Prothrombin time [facility] Work Phone: End: 10-29-2022 PT panel - Platelet poor plasma by Coagulation assay PROTHROMBIN TIME/PT Lab Routine Atrial fibrillation, chronic (HCC) Once per week for 52 Occurrences starting 10/29/2021 until 10/29/2022 [facility] Work Phone: Comment on above: Once per week for 52 Occurrences starting 10/29/2021 until 10/29/2022 Red blood cell count [facility] Work Phone: Red blood cell count [facility] Red cell distributio n width determination [facility] Work Phone: Red cell distributio n width determination [facility] Sodium [Moles/volume ] in Serum or Plasma [facility] Work Phone: Urea nitrogen [Mass/volume] in Serum or Plasma [facility] Work Phone: [facility] Immunizations Immunization Date Immunization Notes Care Provider [facility] 02-03-2024 tetanus toxoid, redu tonio diphtheria toxoid, and acellular pertussis vaccine, adsorbed Samantha Anglin MD Work Phone: [facility] 02-05-2022 influenza, high dose seasonal, preservative-free Cameron Coyle MD Work Phone: [facility] 10-15-2021 Covid (Pfizer) AIR ANALYST-C Brittany argueta AIR ANALYST Work Phone: [facility] 04-19-2021 Covid (Pfizer) AIR ANALYST-Mela argueta AIR ANALYST Work Phone: [facility] 01-28-2021 influenza, high dose seasonal, preservative-free Lucía Barraza APRN.ORDER DESK CLERK Work Phone: [facility] Work Phone: 07-11-2020 COVID-19 vaccine, ag e 12+ yr (BioCurity-BIONTcitysocializer - [facility]) Lucía Lawson DRIER.ORDER DESK CLERK Work Phone: [facility] 07-02-2020 Covid (Pfizer) KEYLA [facility] Work Phone: 06-20-2020 COVID-19 vaccine, ag e 12+ yr (PFIZER-BIONTcitysocializer - PURPLE TOP) Lucía Barraza APRN.ORDER DESK CLERK Work Phone: [facility] 02-01-2020 influenza, injectabl e, quadrivalent, preservative free Lucía Barraza APRN.ORDER DESK CLERK Work Phone: [facility] Work Phone: 03-28-2019 influenza, injectabl e, quadrivalent, preservative free Lucía Barraza DRIER.ORDER DESK CLERK Work Phone: [facility] Work Phone: 02-05-2018 influenza, high dose seasonal, preservative-free Lucía Barraza APRN.ORDER DESK CLERK Work Phone: [facility] 02-01-2018 influenza, injectabl e, quadrivalent, preservative free Dr. Craftori Work Phone: [facility] 02-01-2018 influenza, seasonal, injectable KEYLA KUMARIGLEN [facility] 02-01-2018 influenza, seasonal, injectable, preservative free Lucía Barraza APRN.ORDER DESK CLERK Work Phone: [facility] Work Phone: 07-02-2010 pneumococcal polysaccharide vaccine, 23 valent Cameron Coyle MD Work Phone: [facility] Payers Date Payer Category Payer Self-pay [id number] 2023 Medicare [id number] 2022 Medicare [employer] MEDICARE ADVANTAGE HU[employer] MEDICARE [id number] 2022-Present [address] [address] [place] [address] Medicare O [id number] 2019 Medicare HU[employer]NA MEDICARE HU[employer]NA GOLD PLUS [id number] 2019-Present [phone] [address] [address] [place] [address] [facility] [id number] 1959 Private Health Insurance [id number] 1940 Unknown [id number] 2.16.840.1.643104.3.579. 2.598 1942 Unknown [id number] 2.16840.1.763569.3.579. 2.1259 Private Health Insurance [facility] [id number] Unknown Unknown [id number] 2.16.840.1.241791.3.579. 2.462 Unknown [id number] 2.16.840.1.249091.3.579. 2.462 Unknown [id number] 2.16.840.1.857273.3.579. 2.462 Unknown [id number] 2.16.840.1.847026.3.579. 2.462 Unknown [id number] 2.16.840.1.138689.3.579. 2.462 Unknown [id number] 2.16.840.1.202298.3.579. 2.462 Unknown [id number] 2.16.840.1.720044.3.579. 2.462 Unknown [id number] 2.16.840.1.456695.3.579. 2.462 Unknown [id number] 2.16.840.1.338110.3.579. 2.462 Unknown [id number] 2.16.840.1.697123.3.579. 2.462 Unknown [id number] 2.16.840.1.596816.3.579. 2.462 Unknown [id number] 2.16.840.1.916331.3.579. 2.462 Unknown [id number] 2.16.840.1.965670.3.579. 2.462 Unknown [id number] 2.16.840.1.704036.3.579. 2.462 Unknown [id number] 2.16.840.1.623034.3.579. 2.462 Unknown [id number] 2.16840.1.602358.3.579. 2.462 Unknown [id number] 2.840.1.015119.3.579. 2.462 Unknown [id number] 2.840.1.366369.3.579. 2.462 Unknown [id number] 2.840.1.014580.3.579. 2.462 Unknown [id number] 2.840.1.328582.3.579. 2.462 Unknown [id number] 2.840.1.725801.3.579. 2.462 Unknown [id number] 2.840.1.174950.3.579. 2.462 Unknown [id number] 2.840.1.719031.3.579. 2.462 Unknown [id number] 2.840.1.982376.3.579. 2.462 Unknown [id number] 2.840.1.230994.3.579. 2.462 Unknown [id number] 2.16840.1.877455.3.579. 2.462 Unknown [id number] 2.16840.1.033788.3.579. 2.462 Unknown [id number] 2.840.1.525500.3.579. 2.462 Unknown [id number] 2.16840.1.662755.3.579. 2.462 Unknown [id number] 2.16840.1.600160.3.579. 2.462 Unknown [id number] 2.16.840.1.562546.3.579. 2.462 Unknown [id number] 2.16.840.1.934334.3.579. 2.462 Unknown [id number] 2.16840.1.004127.3.579. 2.462 Unknown [id number] 2.0.1.952117.3.579. 2.462 Social History Date Type Detail Facility Start: 07-09-2021 End: 09-09-2023 Tobacco smoking status [facility] Unknown if ever smoked [facility] Start: 05-31-2018 None [facility] Start: 05-24-2018 Non-smoker [facility] Start: 1940 Sex Assigned At Female [facility] Start: 07-06-2015 End: 09-12-2024 Tobacco smoking status KYIS Never smoked tobacco [facility] Start: 07-06-2015 End: 06-10-2022 Tobacco use and exposure Smokeless tobacco non-user [facility] Start: 07-04-2021 End: 08-05-2021 Alcohol intake Current non-drinker of alcohol (finding) [facility] Start: 07-26-2021 End: 08-05-2021 Exposure to SARS-CoV-2 (event) Yes [facility] Work Phone: Start: 06-10-2022 Alcohol intake Lifetime non-d no (finding) [facility] Start: 1940 Sex Assigned At Not on file [facility] Start: 05-31-2022 End: 06-10-2022 Exposure to SARS-CoV-2 (event) Not sure [facility] Start: 08-01-2024 Sex Female (finding) [facility] Not [facility] NEGATED: Highlighted row [facility] NEGATED: Highlighted row Not [facility] Medical Equipment Procedure Code Equipment Code Equipment Origin al Text Equipment Identifier Dates Valve Epic Flexf it 29mm 27mm Low Profile Porcine Pericardial 19mm Mitral - [id number] Start: 04-16-2018 Goals Date Patient Goal Desired Activity /State Functional Status Date Assessment Result Facility 07-03-2023 Functional status Patient Activi ty Ambulates;Up ad sam [facility] Work Phone: 07-02-2023 Functional status Ambulates;Up ad sam [facility] Work Phone: 10-21-2021 Functional status Chair [facility] Work Phone: 10-14-2021 Functional status Ambulates;Bathroom Priv ilege [facility] Work Phone: 10-08-2021 Functional status Ambulates [facility] Work Phone: 05-18-2021 Functional status Chair [facility] Work Phone: 05-09-2021 Functional status Ambulates;Up ad sam [facility] Work Phone: Mental Status Date Assessment Result Facility 09-14-2024 Cognitive function Voice/Name [facility] Work Phone: 09-14-2024 Cognitive function Patient Orien tation Person;Place;Time [facility] Work Phone: 09-10-2023 Cognitive function Level Of Cons ciousness Awake;Alert;Appropriate;Follow s Commands [facility] Work Phone: 09-10-2023 Cognitive function Voice/Name [facility] Work Phone: 07-03-2023 Cognitive function Voice/Name [facility] Work Phone: 07-03-2023 Cognitive function Appropriate;[facility] Work Phone: 07-02-2023 Cognitive function Voice/Name [facility] Work Phone: 10-21-2021 Cognitive function Voice/Name [facility] Work Phone: 10-20-2021 Cognitive function Appropriate;[facility] Work Phone: 10-14-2021 Cognitive function Voice/Name [facility] Work Phone: 10-12-2021 Cognitive function Appropriate;[facility] Work Phone: 10-08-2021 Cognitive function Voice/Name [facility] Work Phone: 10-07-2021 Cognitive function Appropriate;[facility] Work Phone: 05-18-2021 Cognitive function Voice/Name [facility] Work Phone: 05-18-2021 Cognitive function Level Of Cons ciousness Awake;Alert;Appropriate;Follow s Commands [facility] Work Phone: 05-09-2021 Cognitive function Voice/Name [facility] Work Phone: 05-05-2021 Cognitive function [facility]/Name [facility] Work Phone: Clinical Notes 04-06-2018 to 12-01-2024 Note Date & Type Note Facility 12-01-2024 Procedure note [facility] 12-01-2024 Evaluation note Diagnosis Onset Date [...] 10:27am Hyperlipidemia inactive December 01, 2024 10:27am [facility] Work Phone: 1(655) 872-248005-14-2025 Procedure note [facility] Medical Records Department [address] [place] [address] Colonoscopy Report MR#: [id number] Acct: [id number] Name: GLORIA MATHEW Rep #:[id number] : 1940 83 From: [place] [place] [...] for review. Procedure Code(s): --- Professional --- 62844, Colonoscopy, flexible; with biopsy, single or multiple Diagnosis Code(s): --- Professional --- D12.2, Benign neoplasm of ascending colon D12.5, Benign neoplasm of sigmoid colon K62.89, Other specified diseases of anus and rectum K92.1, Melena (includes Hematochezia) D50.9, Iron deficiency anemia, unspecified K57.30, Diverticulosis of large intestine without perforation or abscess without bleeding CPT copyright 2021 [employer]. All rights reserved. The codes documented in this report are preliminary and upon outpatient coder review may be revised to meet current compliance requirements. Avtar Desir MD 09/14/2024 10:08:16 AM This report has been signed electronically. Number of Addenda: 0 Note Initiated On: 09/14/2024 9:02 AM 09/14/24 1008 Date _ Avtar Desir MD Cosigner Signature: Date (if indicated) CC: Dr. Samantha Anglin MD; Dr. vAtar Desir MD ~ Date Dictated: 09/14/24 0902 Date Transcribed: Termite Helper: LORRIE Signed [facility]05-14-2025 Procedure note [facility] Medical Records Department [address] [place] [address] Operative Report - CC Letter MR#: [id number] Acct: [id number] Name: GLORIA MATHEW Rep #:[id number] : 1940 83 From: Avtar Tipton [...] MD ~ Date Dictated: 09/14/24901 Date Transcribed: Termite Helper: MB Signed [facility]05-14-2025 Consult note [facility] Medical Records Department [address] [place] [address] Anesthesia Postop Eval I 09/14/24 1001 MR#: [id number] Acct: [id number] Name: GLORIA MATHEW Rep #:[id number] : 1940 83 From: Bud FELDMAN PCP: Dr. Samantha Anglin MD Status:REG SD C Y Race: C Location: [place] [address] Anesthesia: Postop Eval I Current Vital Signs Temperature: 97.1 F Pulse Rate: 60 Blood Pressure: 143/67 Respiratory Rate: 16 Pulse Ox: 99 Assessment Airway patent: Yes Spontaneous unlabored respirations: Yes nausea: No Vomiting: No Anesthesia Complication: No Fluid Hydration Crystalloid volume administer (ml): 800 Total IV fluid infused: 800 Progress Note Anesthesia document: Postop Eval 1 completed: Yes 09/14/24 1002 THERAPIST RESPIRATORY> Date _ Bud Mckee THERAPIST RESPIRATORY Cosigner Signature: Date CC: ~ Signed [facility]05-14-2025 Procedure note [facility] Medical Records Department [address] [place] [address] EGD Report MR#: [id number] Acct: [id number] Name: GLORIA MATHEW Rep #:[id number] : 1940 83 From: Avtar Tipton [...] 1 week. Procedure Code(s): --- Professional --- 56365, Esophagogastroduodenoscopy, flexible, transoral; with removal of tumor(s), polyp(s), or other lesion(s) by snare technique 28875, 59, Esophagogastroduodenoscopy, flexible, transoral; with biopsy, single or multiple Diagnosis Code(s): --- Professional --- K31.7, Polyp of stomach and duodenum K31.89, Other diseases of stomach and duodenum K22.89, Other specified disease of esophagus K44.9, Diaphragmatic hernia without obstruction or gangrene D50.9, Iron deficiency anemia, unspecified CPT copyright 2021 [employer]. All rights reserved. The codes documented in this report are preliminary and upon outpatient coder review may be revised to meet current compliance requirements. Avtar Desir MD 09/14/2024 10:01:12 AM This report has been signed electronically. Number of Addenda: 0 Note Initiated On: 09/14/2024 7:48 AM 09/14/24 1001 Date _ Avtar Desir MD Cosigner Signature: Date (if indicated) CC: Dr. Samantha Anglin MD; Dr. Avtar Desir MD ~ Date Dictated: 09/14/24 0748 Date Transcribed: Termite Helper: LORRIE Signed [facility]05-14-2025 Procedure note [facility] Medical Records Department [address] [place] [address] Operative Report - CC Letter MR#: [id number] Acct: [id number] Name: GLORIA MATHEW Rep #:[id number] : 1940 83 From: Avtar Tipton PCP: Dr. Samantha Anglin MD Status:REG STEWART C 09/14/2024 Samantha Anglin Md Re : Upper GI endoscopy procedure [...] ~ Date Dictated: 09/14/24 0748 Date Transcribed: Termite Helper: LORRIE Signed [facility]05-14-2025 History and physical note Author Avtar Desir [facility] Note Date/Time September 14, 2024 7:50a m [facility] Medical Records Department [address] [facility] [place] [address] History & Physical Exam 09/14/24 0746 MR#: [id number] Acct: [id number] Name: GLORIA MATHEW Rep #:[id number] : 1940 83 From: Avtar Tipton PCP: Dr. Samantha Anglin MD Status:REG SD C Location: [place] [address] History and Physical Date of Admission: 09/14/24 MR#: [id number] Acct: [id number] Name: GLORIA MATHEW Rep #: [id number] : 1940 Provider: Dr. Avtar Desir MD Age/Sex: 83/F Location: [facility] Status: Signed Intake Vital Signs 06/02/2509:24 08/02/2507:09 [...] tab PO DAILY REPLACEMENT 04/06/2307/04 History 50 wq-xvzg-nnkeqv-stephanie-s.borat tablet (Caltrate 600-D Plus Minerals) gabapentin 300 [...] airway pressure) dependence Pacemaker 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, left meterman current use of anticoagulant Atrial fibrillation Neuropathic [...] plan to proceed to endoscopy suite. 09/14/24 6370 <Electronically signed by Avtar Desir MD> Cosigner Signature (if applicable): CC: Dr. Samantha Anglin MD; Dr. Avtar Desir MD~ Signed [facility] Work Phone: 1(609) 458-906405-14-2025 Consult note Author Isabelle Lo [facility] Note Date/Time September 14, 2024 7:37a m [facility] Medical Records Department [address] [place] [address] Pre-Anesthesia Evaluation 09/14/24 0731 MR#: [id number] Acct: [id number] Name: GLORIA MATHEW Rep #:[id number] : 1940 83 From: Isabelle Lo PCP: Dr. Samantha Anglin MD Status:REG SD C Y Race: C Location: [place] [address] ASA Classification* ASA Classification ASA Classification: 3 [...] EGD, COLONOSCOPY Anesthesia History Anesthesia History - book agent: Anesthesia History - book agent Hx Hospitalization No 09/12/24 09:27 Any Problems [...] Any additional information?: No PONV PONV - book agent: PONV - book agent Female Yes 09/12/24 09:27 HX of Motion [...] 09/14/24 06:47 Respiratory Assessment Respiratory Assessment - book agent: Respiratory Tract Infection 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 Hx Respiratory Tract Infection No 09/12/24 09:27 Any additional information?: No STOP Sleep Apnea STOP Sleep Apnea - book agent: STOP Sleep Apnea - book agent Hx Hypertension No 09/12/24 09:27 Hx Sleep [...] Tobacco Use History Tobacco Use History - book agent: Tobacco Use History - book agent Tobacco Use Smoking Status Never smoker 09/12/24 09:27 Hx Tobacco Use No 09/12/24 09:27 Years Smoking Packs Smoked per Day Smoking Cessation Date was within the last 15 years Hx Smoking Cessation Date Hx Smoking Cessation Counseling Any additional information?: No Hematologic Medial History Hematologic 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: 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 Hx of Blood Transfusion Yes 09/12/24 09:27 [...] information?: No /Reproduction History /Reproductive History - book agent: /Reproductive Hx- book agent Hx Now No 09/12/24 09:27 Gestational Age (in weeks): EDC: Hx Hx Para Hx Section SAB No 09/12/24 09:27 Any additional information?: No Active Medications Active Medications: Current Medications Generic Name Dose Route Start Last Admin Trade Name Freq PRN Reason Stop Dose Admin Lactated Ringer's 1,000 mls @ 30 mls/hr 09/14/24 06:30 09/14/24 06:58 IV 30 mls/hr .[id number] CARMEL Administration PFSH Medical History Hematoma Skin ulcer of hip with fat layer exposed Loss of hearing Wears hearing aid Wears glasses Cancer High cholesterol Restless legs History of IBS Diverticulosis History of diverticulitis History of echocardiogram History of pacemaker Cardiology follow-up encounter Osteopenia GI bleed Non-smoker CPAP (continuous positive airway pressure) dependence Pacemaker 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, left meterman current use of anticoagulant Atrial fibrillation Neuropathic [...] DAILY REPLAC EMENT 04/06/23 09/13/24 History 50 ry-rspo-prmbwn-stephanie-s.borat tablet (Caltrate 600-D Plus Minerals) gabapentin 300 [...] Lo Cosigner Signature: Date CC: ~ Signed [facility] Work Phone: 1(897) 496-453905-14-2025 History and physical note [facility] Medical Records Department [address] [place] [address] History & Physical Exam 09/14/24 0746 MR#: [id number] Acct: [id number] Name: GLORIA MATHEW Rep #:[id number] : 1940 83 From: Avtar Tipton PCP: Dr. Samantha Anglin MD Status:REG SD C Location: [place] [address] History and Physical Date of Admission: 09/14/24 MR#: [id number] Acct: [id number] Name: CARLO MATHEWA YUMI Rep #: [id number] : 1940 Provider: Dr. Avtar Desir MD Age/Sex: 83/F Location: [facility] Status: Signed Intake Vital Signs 06/02/2509:24 08/02/2507:09 [...] tab PO DAILY REPLACEMENT 04/06/2307/04 History 50 mf-bzvk-pbbivq-stephanie-s.borat tablet (Caltrate 600-D Plus Minerals) gabapentin 300 [...] airway pressure) dependence Pacemaker 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, left meterman current use of anticoagulant Atrial fibrillation Neuropathic [...] Anglin MD; Dr. Avtar Desir MD~ Signed [facility]05-14-2025 [facility] Medical Records Department [address] [place] [address] History Physical Exam 09/14/24 0746 MR#: [id number] Acct: [id number] Name: GLORIA MATHEW Rep #: [id number] : 1940 83 From: Avtar Desir MD PCP: Dr. Samantha Anglin MD Status:[facility] Location: [place] [address] History and Physical Date of Admission: 09/14/24 MR#: [id number] Acct: [id number] Name: QUINCYGLORIA YUMI Rep #: [id number] : 1940 Provider: Dr. Avtar Desir MD Age/Sex: 83/F Location: [facility] Status: Signed Intake Vital Signs 06/02/2509:24 08/02/2507:09 [...] DAILY REPLACEMENT 04/06/23 08/01/24 Histo ry 50 ez-masa-jdkccu-stephanie-s.borat tablet (Caltrate 600-D Plus Minerals) gabapentin 300 [...] airway pressure) dependence Pacemaker 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, left meterman current use of anticoagulant Atrial fibrillation Neuropathic [...] (Reviewed 08/01/24 @ 08:09 (more content not included)...[facility]05-14-2025 Consult note [facility] Medical Records Department [address] [place] [address] Pre-Anesthesia Evaluation 09/14/24 0731 MR#: [id number] Acct: [id number] Name: GLORIA MATHEW Rep #:[id number] 7 : 1940 83 From: Isabelle Lo PCP: Dr. Samantha Anglin MD Status:REG SD C Y Race: C Location: [place] [address] ASA Classification* ASA Classification ASA Classification: 3 [...] EGD, COLONOSCOPY Anesthesia History Anesthesia History - book agent: Anesthesia History - book agent Hx Hospitalization No 09/12/24 09:27 Any Problems [...] Any additional information?: No PONV PONV - book agent: PONV - book agent Female Yes 09/12/24 09:27 HX of Motion [...] 09/14/24 06:47 Respiratory Assessment Respiratory Assessment - book agent: Respiratory Tract Infection 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 Hx Respiratory Tract Infection No 09/12/24 09:27 Any additional information?: No STOP Sleep Apnea STOP Sleep Apnea - book agent: STOP Sleep Apnea - book agent Hx Hypertension No 09/12/24 09:27 Hx Sleep [...] Tobacco Use History Tobacco Use History - book agent: Tobacco Use History - book agent Tobacco Use Smoking Status Never smoker 09/12/24 09:27 Hx Tobacco Use No 09/12/24 09:27 Years Smoking Packs Smoked per Day Smoking Cessation Date was within the last 15 years Hx Smoking Cessation Date Hx Smoking Cessation Counseling Any additional information?: No Hematologic Medial History Hematologic 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: 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 Hx of Blood Transfusion Yes 09/12/24 09:27 [...] information?: No /Reproduction History /Reproductive History - book agent: /Reproductive Hx- book agent Hx Now No 09/12/24 09:27 Gestational Age (in weeks): EDC: Hx Hx Para Hx Section SAB No 09/12/24 09:27 Any additional information?: No Active Medications Active Medications: Current Medications Generic Name Dose Route Start Last Admin Trade Name Freq PRN Reason Stop Dose Admin Lactated Ringer's 1,000 mls @ 30 mls/hr 09/14/24 06:30 09/14/24 06:58 IV 30 mls/hr .[id number] CARMEL Administration PFSH Medical History Hematoma Skin ulcer of hip with fat layer exposed Loss of hearing Wears hearing aid Wears glasses Cancer High cholesterol Restless legs History of IBS Diverticulosis History of diverticulitis History of echocardiogram History of pacemaker Cardiology follow-up encounter Osteopenia GI bleed Non-smoker CPAP (continuous positive airway pressure) dependence Pacemaker 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, left meterman current use of anticoagulant Atrial fibrillation Neuropathic [...] DAILY REPLAC EMENT 04/06/23 09/13/24 History 50 io-eqcn-sozwuz-stephanie-s.borat tablet (Caltrate 600-D Plus Minerals) gabapentin 300 [...] Isabelle Flores Signature: Date CC: ~ Signed [facility]03-31-2025 Evaluation note* Diagnosis Onset Date Resolution Status Admit Date Bright red blood per rectum acute August 01, 2024 7:50am History of adenomatous polyp of colon acute August 01, 2024 7:50am History of melena acute July 042024 7:50am [facility] Work Phone: 1(882) 511-125401-30-2025 Evaluation note* Diagnosis Onset Date Resolution Status [...] History of melena acute July 042024 7:50am [facility] Work Phone: 1(920) 255-829505-09-2024 History and physical note Author Avtar Desir [facility] September 10, 2023 9:17am Note Date/Time September 10, 2023 9:18am [facility] Medical Records Department [address] [place] [address] History & Physical Exam 09/10/23915 MR#: [id number] Acct: [id number] Name: GLORIA MATHEW Rep #:[id number] : 1940 82 From: Avtar Tipton PCP: Dr. Samantha Anglin MD Status:REG SD C Location: [place] [address] History and Physical Date of Admission: 09/10/23 Date of Service: 08/05/23 MR#: [id number] Acct: [id number] Name: GLORIA MATHEW Rep #: [id number] : 1940 Provider: Dr. Avtar Desir MD Age/Sex: 82/F Location: [facility] Status: Signed with Addenda ADDENDUM by Dr. [...] 08/05/23] calcium 600 mg-D3 800 unit-mag11 50 dt-lmxe-hhrndu-stephanie-s.borat tablet (Tkvtepkx292-L Plus Minerals) 1 tab PO DAILY REPLACEMENT [...] available. 08/05/23 1601 <Electronically signed by Avtar Desir MD> Date Avtar Desir MD cc: Dr. [...] 08/05/23] calcium 600 mg-D3 800 unit-mag11 50 qp-kqzq-xqtwes-stephanie-s.borat tablet (Aaloofej670-A Plus Minerals) 1 tab PO DAILY REPLACEMENT [...] (gastroesophageal reflux disease) GI bleed Hernia Hyperlipidemia meterman current use of anticoagulant Mitral and aortic [...] that she will need to have a driver's license reviewing officer with her the day of the procedure. [...] Anglin MD; Dr. Avtar Desir MD~ Signed [facility] Work Phone: 1(638) 135-851105-09-2024 Procedure [facility] 09-10-2023 Procedure [facility]03-01-2024 Discharge summary [facility] July 03, 2023 1:33pm Note Date/Time July 03, 2023 1:29 pm [facility] Medical Records Department [address] [place] [address] Discharge Summary 07/03/23 1327 MR#: [id number] Acct: [id number] Name: GLORIA MATHEW Rep #:[id number] : 1940 82 From: Jaciel Sesay DO PCP: Dr. Denise Vallecillo MD Status:ADM IN Location: [facility] JO561-3 Providers Date of Admission: 07/02/23 Primary Care [...] 04/06/23 calcium 600 mg-D3 800 unit-mag11 50 bs-uzoh-cskjgq-stephanie-s.borat tablet (Ukfjwzep405-C Plus Minerals) 1 tab PO DAILY REPLACEMENT [...] % (Auto) 61.8, Lymph % (Auto) 23.8, Greene% (Auto) 8.3, Eos % (Auto) 4.3, Baso [...] EST , D/C Instructions Discharge Diet: - ([place] diet. Advance as tolerated.) Meaningful Use Info [...] as normally. Do [facility] to [...] Self Care Charges/Coding Visit Charges Inpatient E&M: 41008 Disch Hosp >30min 07/03/23 1333 <Electronically signed by Jaciel Sesay DO> Cosigner Signature (if applicable): CC: Dr. Jaciel Sesay DO; Dr. Denise Vallecillo MD~ Signed [facility] Work Phone: 1(527) 280-283603-01-2024 Progress note Author Jaciel Sesay [facility] July 03, 2023 1:27pm Note Date/Time July 03, 2023 7:42 am [facility] Medical Records Department [address] [place] [address] Progress Note - Hospitalist 07/03/23 0738 MR#: [id number] Acct: [id number] Name: GLORIA MATHEW Rep #:[id number] : 1940 82 From: Jaciel Sesay DO PCP: Dr. Denise Vallecillo MD Status:ADM IN Location: [facility] KV700-8 Reason for Visit Reason for Visit: Diagnoses [...] (Auto) 69.5, Lymph % (Auto) 18.2 L, Greene % (Auto) 7.6, Eos % (Auto) 3.3, [...] % (Auto) 61.8, Lymph % (Auto) 23.8, Greene% (Auto) 8.3, Eos % (Auto) 4.3, Baso [...] Cosigner Signature (if applicable): CC: ~ Signed [facility] Work Phone: 1(488) 923-120003-01-2024 Discharge summary Author Reyna Sanders [facility] July 02, 2023 10:15pm Note Date/Time July 02, 2023 12:04pm [facility] Medical Records Department [address] [place] [address] Emergency Department Summary 07/02/23 MR#: [id number] Acct: [id number] Name: GLORIA MATHEW Rep #:[id number] : 1940 82 From: Reyna Sanders DO PCP: Dr. Denise Vallecillo MD Status:ADM IN Location: [facility] LA954-1 HPI <Dr. Reyna Sanders DO - Last [...] warfarin due to history of A- fib. [facility] <Dr. Reyna Sanders, DO - Last Filed: 07/02/23 22:15> [facility] Medical History (Updated 07/02/23 @ 16:38 by [...] Unknown] calcium 600 mg-D3 800 unit-mag11 50 dt-lmhm-bcdsxh-stephanie-s.borat tablet (Opauvfyp878-X Plus Minerals) 1 tab PO DAILY REPLACEMENT [...] rashes or lesions noted and no wounds [facility] <Dr. Reyna Sanders, DO - Last Filed: 07/02/23 22:15> [facility] Narrative Medical decision making narrative: Patient is [...] (Auto) 69.5 Lymph % (Auto) 18.2 L Greene % (Auto) 7.6 Eos % (Auto) 3.3 [...] <DIANE Laws - Last Filed: 07/02/23 17:05> [facility] MDM Narrative Medical decision making [...] (Auto) 69.5 Lymph % (Auto) 18.2 L Greene % (Auto) 7.6 Eos % (Auto) 3.3 [...] 13:50 EST Reading Location ID and State: [facility] / [place] , Service support , Discharge Plan Dx/Rx/DC Orders Clinical Impression: Transient hypotension, Acute diverticulitis, Acute lower gastrointestinal bleeding Disposition Disposition: Acute Care Hospital [facility] Discharge Date/Time: 07/02/23 16:18 What to do if you have Problems For any increased pain, shortness of breath, bleeding, nausea or vomiting, chest pain, or any unexpected problems, contact your Primary Care Provider. Call [facility] ([phone]) or report to the closest Emergency Room. Call 911 if necessary. 07/02/23 2215 <Electronically signed by Reyna Sanders DO> Cosigner Signature (if applicable): 07/02/23 1705 <Electronically signed by Cherelle CONTRERAS> CC: Dr. Denise Vallecillo MD ~ Signed [facility] Work Phone: 1(573) 344-411502-29-2024 History and physical note Author Piter Perdomo [facility] July 02, 2023 7:47pm Note Date/Time July 02, 2023 7:35pm [facility] Medical Records Department [address] [place] [address] H&P Exam - Hospitalist 07/02/23 193 MR#: [id number] Acct: [id number] Name: GLORIA MATHEW Rep #:[id number] : 1940 82 From: Piter Perdomo DO PCP: Dr. Denise Vallecillo MD Status:ADM IN Location: [facility] ZA656-2 HPI - General General Date of Admission: 07/02/23 Date of Service: 07/02/23 Chief Complaint: Rectal bleeding HPI Narrative GLORIA MATHEW, is a 82 F who presents to the emergency room at [facility] with complaints of rectal bleeding this morning, [...] the sigmoid. Patient will be admitted to [facility], she will be given IV antibiotics, and labs will be monitored. Patient will need outpatient colonoscopy performed, I feel that the red rectal bleeding is due to diverticular bleeding. [facility] Medical History (Updated 07/02/23 @ 16:38 by [...] Unknown] calcium 600 mg-D3 800 unit-mag11 50 nd-ypsu-fztifo-stephanie-s.borat tablet (Wojpalfm196-O Plus Minerals) 1 tab PO DAILY REPLACEMENT [...] (Auto) 69.5, Lymph % (Auto) 18.2 L, Greene % (Auto) 7.6, Eos % (Auto) 3.3, [...] 13:50 EST Reading Location ID and State: [address] [place] [address] , Service support , Assessment & Plan Assessment/Plan (1) Acute lower gastrointestinal bleeding: PLAN: Plan 1. Acute diverticulitis of the sigmoid colon-patient will be admitted to [facility] 3, labs will be monitored, she was placed on IV Unasyn, I have chosen not to have general surgery see the patient at this time 2. Hematochezia-I feel this is probably secondary to diverticular bleeding, patient will be admitted to [facility] 3, labs will be monitored, I [...] 55- minutes Charges/Coding Visit Charges Inpatient E&M: 95927 Init Hosp L2 07/02/231946 <Electronically signed by Piter Perdomo DO> Cosigner Signature (if applicable): CC: Dr. Piter Perdomo DO; Dr. Denise Vallecillo MD~ Signed [facility] Work Phone: 1([phone]) 358-673302-07-2023 History of Present illness Narrative* Cameron Coyle [...] DAYS 03/12/22 Historical Provider, [employer] ([place] Matrix 5000) tablet Take 1 tablet by [...] above. No diagnosis found. documented in this [facility]06-30-2022 Miscellaneous Notes* Telephone Encounter - Aniya Shankar, [facility] - 10/31/2021 10:51 AM EDT [...] daily. Recheck INR on 11/06 with new bench assembler electrical in [place]. The patient's INR was elevated on 09/25. [...] was in the hospital and then a detention facility. She was discharged home on 10/21 and has been taking warfarin 1mg daily. Since INR was therapeutic on 10/23, recommended that she continue this dose and have an INR check on 11/06 to ensure she is stable. She reports today that she has transferred care from Dr. Perez to a new bench assembler electrical in [place]. She has been to see the new bench assembler electrical once so is now established there. Instructed the patient to call the new bench assembler electrical office to see how they monitor warfarin. This Coumadin clinic can no longer manage, as the referring provider needs to be part of [employer]. The patient plans to call her bench assembler electrical office today for guidance and to set up next INR. Coumadin clinic will sign off at this time. Discussed with patient on the phone who read back instructions and verbalized understanding. Aniya Shankar RPh [facility] Miscellaneous Notes* Telephone Encounter - Mellisa Dutta RPh - 10/29/2021 12:15 PM EDT [facility] coumadin clinic already manages this patient's INRs. She has her INRs checked at the [place] lab. I think they just need a new standing order for INRs. I have placed the order and faxed as requested. Mellisa Dutta RPh * Telephone Encounter - Jean-Pierre Perez MD - 10/29/2021 11:47 AM EDT I signed the form and did approve VIt K but the form is for [facility], not [place] William C * Telephone Encounter - Donald Cunningham RN - 10/29/2021 11:37 AM EDT I found the form in [facility] will complete for you just need to know if you want him to have Vit K for INR over 9.0? Donald Cunningham, MARCELLA * Telephone Encounter - Jean-Pierre Perez MD - 10/28/2021 11:39 AM EDT INR 2-3; I do not see any form in Epic William C * Telephone Encounter - Donald Cunningham RN - 10/28/2021 9:40 AM EDT A standing order for the [place] [facility] for the next year. Wasn't sure of the parameters for the INR levels? Donald Cunningham RN * Telephone Encounter - Jean-Pierre Perez MD - 10/24/2021 7:37 PM EDT What do I need to fill out? William C * Telephone Encounter - Donald Cunningham RN - 2021 9:29 AM EDT Received a call from [facility] at [facility] requesting a new standing order for Coumadin clinic for the upcoming year. Requesting it be faxed to Karli at [phone]. Donald Cunningham RN documented in [facility]05-25-[facility]22 Miscellaneous Notes* Telephone Encounter - Aniya Shankar [facility] - 09/25/2021 4:09 PM EDT [...] of 3.4 on 09/25/2021. documented in this encounterPomerene Hospital04-04-2022 Influenza virus A and B RNA and SARS-CoV-2 (COVID-19) N gene panel DWAYNE+probe (Resp)COVID 19 RESULT: SARS-CoV-2 (Agent of COVID-19) Not Detected by RT-PCR or equivalent method. This test was developed and its performance characteristics determined by [facility] Pathology and Laboratory Medicine [place]. This test has been authorized by FDA under an Emergency Use Authorization (EUA). This test has been validated in accordance with the FDA's Guidance Document Policy for DiagnosticsTesting in Laboratories Certified to Perform High Complexity Testing under CLIA prior to Emergency use Authorization for Coronavirus Disease 2019 during the Public Health Emergency issued on July 02, 2019. Test performed by [facility], [facility] Pathology and Laboratory Medicine [place], [facility] [place] [address]. INFLUENZA A PCR: Negative for Influenza A by RT-PCR INFLUENZA B PCR: Negative for Influenza B by RT-PCRSalem City Hospitalment on above: Performed By: #### [id number] #### [facility] CLIA [id number] [address] [place] [address] [place] [id number] NoteHNO ID: [id number] Author: Lucía Barraza APRN.ORDER DESK CLERK Service: ? Author Type: Nurse Practitioner Type: Progress Notes Filed: 08/05/2021 10:27 AM Note Text: Subjective Patient came in with complaints of being exposed to covid Five days ago. Patient does not have any symptoms at this time. Had covid in April of 2020 and is vaccinated. The history is provided by the patient. No park interpreter was used. Review of Systems Constitutional: Negative. Skin: Negative. Objective Physical Exam Constitutional: Appearance: Normal appearance. Cardiovascular: Rate and Rhythm: Normal rate and regular rhythm. Heart sounds: Normal heart sounds. Pulmonary: Effort: Pulmonary effort is normal. Breath sounds: Normal breath sounds. Neurological: Mental Status: She is alert. 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 Biotin-Silicon Tuez-P-Oceepgpq 5,000 mcg-100 mg- 50 mg tab Take [...] ROUTINE Awaiting covid test results. Lucía Barraza APRN.[facility]04-04-2022 History of Present illness Narrative* Lucía Barraza APRN.[facility] - 08/05/2021 10:18 AM EDT Subjective Patient came in with complaints of being exposed to covid Five days ago. Patient does not have any symptoms at this time. Had covid in April of 2020 and is vaccinated. The history is provided by the patient. No park interpreter was used. Review of Systems Constitutional: Negative. 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 Biotin-Silicon Xrrf-B-Euzhurju 5,000 mcg-100 mg- 50 mg tab Take [...] ROUTINE Awaiting covid test results. Lucía Barraza APRN.ORDER DESK CLERK documented in this encounterPomerene Hospital03-29-2022 Miscellaneous Notes* Telephone Encounter - Mellisa Dutta [facility] - 07/30/2021 9:49 AM EDT [...] patient. Mellisa Dutta RPh documented in this encounterPomerene Hospital03-02-2022 NoteHNO ID: [id number] Author: Jean-Pierre Perez MD Service: ? Author [...] She had a cardioversion done down in [place]. She ended up having AV node ablation and permanent dual-chamber pacer placed in May. She is now living down in [place]. 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 Lechuga - LEG SURGERY HX [...] 0 - Cyanocobalamin (VITAM (more content not included)...[facility]01-18-2022 NoteHNO ID: [id number] Author: [place] Lechuga MD Service: Electrophysiology Author [...] or not tolerated. She was admitted with [facility] with yet another episode of atrial fibrillation with RVR and transferred to [facility] for consideration of pacemaker implantation and [...] Apparently the patient had another echo at [place] very recently. Patient underwent AV karin ablation [...] 399. RV paced. Impedance 532. THT 0.5/0.5. 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 Past 72 Hour Labs: Recent Labs 05/21/21 0420 WBC 6.63 RBC 3.99 HB 12.3 HCT 36.4 MCV 91.2 MCH 30.8 MCHC 33.8 RDWCV 12.8 PLT 160 MPV 9.0 GLUC 88 BUN 15 CREAT 0.96 NA 141 K 4.1 CHLOR 108* CO2 24 TPROT 5.4* ALB 3.3* CA 8.8 ALKPHO (more content not included)...[facility]01-18-2022 Note HNO ID: [id number] Author: Donald Cool, RN Service: Electrophysiology Author Type: Registered Nurse Type: Progress Notes Filed: 05/21/2021 12:06 PM Note Text: POD1 s/p PPM implant, AVN ablation interrogation/testing completed. Mode switch ongoing. Testing stable. Teaching done with pt and sister via speaker phone. Preliminary report on chart; full report to follow in Chart Review, cardiac tab.[facility]01-17-2022 NoteHNO ID: [id number] Author: [place] Lechuga MD Service: Electrophysiology Author Type: Physician Type: Progress Notes Filed: 05/20/2021 5:59 PM Note Text: [facility] Electrophysiology (EP) EP Attending Pacemaker and AV [...] 20, 2021 5:59 PM EP group [phone] NoteHNO ID: [id number] Author: Adalid Duvall DO Service: Hospital Medicine Author Type: Physician Type: Progress Notes Filed: 05/20/2021 3:57 PM Note Text: DEPARTMENT OF HOSPITAL MEDICINE PROGRESS NOTE Hospital Medicine/Primary Attending: Adalid Duvall DO NIGHT AND WEEKEND COVERAGE: After 7pm please page [phone] SUBJECTIVE: Pt seen and examined. In bed [...] ablation -Nursing will obtain echo report from [place] (they are closed today) -EP following Hyperlipidemia -Continue simvastatin Neuropathy Denies symptoms -Continue gabapentin Restless leg Denies current symptoms -Continue Mirapex Medication and Non-Pharmacologic VTE Prophylaxis/Anticoagulants 05/19/21 0215 vte current anticoag therapy (hi,oh) Lines, Drains, and Airways Line Peripheral 05/18/21 [...] this note may have been generated using [employer] (more content not included)...[facility] 05-20-2021 NoteHNO ID: [id number] Author: Lili Costa RN Service: Care Management [...] planning services during this admission, please call [phone]. Lili Costa RN May 20, 2021 1:31 PM SIGNATURE: Lili Costa RN PATIENT NAME: Gloria Mathew DATE: May 20, 2021 TIME: 1:31 PM PAGER/CONTACT #: [phone] Hospital 05-19-2021 NoteHNO ID: [id number] Author: Adalid Duvall DO Service: Hospital Medicine Author Type: Physician Type: Progress Notes Filed: 05/19/2021 3:17 PM Note Text: DEPARTMENT OF HOSPITAL MEDICINE PROGRESS NOTE Hospital Medicine/Primary Attending: Adalid Duvall DO NIGHT AND WEEKEND COVERAGE: After 7pm please page [phone] SUBJECTIVE: Pt seen and examined. In bed [...] midnight -Nursing will obtain echo report from [place] (they are closed today) -EP following Hyperlipidemia [...] this note may have been generated using Readz voice recognition software. Reasonable efforts were made to correct any dictation errors that resulted due to the programming of this software but some may still be present. Please note, the time of this note does not reflect the time I saw this patient today, but the time of this documentation.[facility] 05-04-2021 Evaluation note* Diagnosis Onset Date Resolution [...] acute S/P MVR (mitral valve replacement) acute [facility] Work Phone: 1(962) 131-158701-01-2022 Evaluation note* Diagnosis Onset Date Resolution Status [...] FTT (failure to thrive) in adult acute [facility] Work Phone: 1(116) 362-443501-01-2022 Evaluation note* Diagnosis Onset Date Resolution Status [...] B12 deficiency acute Vitamin D deficiency acute [facility] Work Phone: 1(160) 808-959201-01-2022 Evaluation note* Diagnosis Onset Date Resolution Status [...] Presence of permanent cardiac pacemaker May, acute [facility] Work Phone: 1(311) 274-187601-01-2022 Evaluation note* Diagnosis Onset Date Resolution Status [...] Presence of permanent cardiac pacemaker May, acute [facility] Work Phone: 1(841) 366-610701-01-2022 Evaluation note* Diagnosis Onset Date Resolution Status Atrial fibrillation acute 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 acute Hx of atrioventricular node ablation acute Presence of permanent cardiac pacemaker May, acute S/P MVR (mitral valve replacement) acute Atrial fibrillation acute 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 acute Hx of atrioventricular node ablation acute Presence of permanent cardiac pacemaker May, acute [facility] Work Phone: 1(550) 115-755901-01-2022 Evaluation note* Diagnosis Onset Date Resolution Status [...] chronic Presence of permanent cardiac pacemaker May, [facility] Work Phone: 1(659) 770-469801-01-2022 Evaluation note* Diagnosis Onset Date Resolution Status Atrial fibrillation chronic 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 chronic Hx of atrioventricular node ablation chronic Hyperlipidemia chronic Presence of permanent cardiac pacemaker May, chronic S/P MVR (mitral valve replacement) chronic Cardiogenic shock acute Atrial fibrillation chronic 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 chronic Hx of atrioventricular node ablation chronic Presence of permanent cardiac pacemaker May, [facility] Work Phone: 1(870) 399-869401-01-2022 Evaluation note* Diagnosis Onset Date Resolution Status [...] chronic Presence of permanent cardiac pacemaker May, [facility] Work Phone: 1(924) 793-946501-01-2022 Evaluation note* Diagnosis Onset Date Resolution Status 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 chronic Hx of atrioventricular node ablation chronic Presence of permanent cardiac pacemaker May, [facility] Work Phone: 1(852) 537-617501-01-2022 Evaluation note* Diagnosis Onset Date Resolution Status Atrial fibrillation chronic 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 chronic Hx of atrioventricular node ablation chronic Hyperlipidemia chronic Presence of permanent cardiac pacemaker May, chronic S/P MVR (mitral valve replacement) chronic Atrial fibrillation chronic 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 chronic Hx of atrioventricular node ablation chronic Presence of permanent cardiac pacemaker May, [facility] Work Phone: 1([phone]) 214-463001-01-2022 Evaluation note* Diagnosis Onset Date Resolution Status Atrial fibrillation chronic 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 chronic Hx of atrioventricular node ablation chronic Presence of permanent cardiac pacemaker May, [facility] Work Phone: 1([phone]) 224-832001-01-2022 Evaluation note* Diagnosis Onset Date Resolution Status Atrial fibrillation chronic 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 chronic Hx of atrioventricular node ablation chronic Hyperlipidemia chronic Presence of permanent cardiac pacemaker May, chronic S/P MVR (mitral valve replacement) chronic [facility] Work Phone: 1([phone]) 892-121201-01-2022 Evaluation note* Diagnosis Onset Date Resolution Status Atrial fibrillation chronic 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 chronic Hx of atrioventricular node ablation chronic Hyperlipidemia chronic Presence of permanent cardiac pacemaker May, chronic S/P MVR (mitral valve replacement) chronic Acute diverticulitis acute Acute lower gastrointestinal bleeding acute Transient hypotension acute [facility] Work Phone: 1(193) 251-220711-03-2021 NoteHNO ID: [id number] Author: Desmond Acosta MD Service: ? Author Type: Physician Type: Progress Notes Filed: 03/06/2021 9:17 AM Note Text: Heart and Vascular [place] [facility] SECTION OF CARDIAC PACING and ELECTROPHYSIOLOGY PRIMARY CARE PHYSICIAN: Loree Vallecillo [address] [place] [id number] REFERRING PHYSICIAN: MANUEL, Dr Perez CHIEF COMPLAINT: [...] held for bradycardia. December 2020 presented to [place] with dizziness and was in AF, given [...] shortness of breath. She came into the [place] emergency room with the help of her [...] a pacemaker. He had a pacemaker from [phone] and lived to [facility]. Prior Cardiac Testing ECG 01/30/21 - NSR/Ectopic low RAsite P inv 3., aVf [place] 200 QRS 92 QTc 436 01/24/2021-sinus rhythm/low [...] exclusion of left a (more content not included)...[facility] 01-24-2021 NoteHNO ID: [id number] Author: Arnold Carlson APRN.ORDER DESK CLERK Service: ? Author Type: Nurse Practitioner Type: [...] she was doing well. She presented to [place] emergency room due to complaints of lightheadedness and dizziness the end of December. According to patient and her power of attorney lawyer she was in atrial fibrillation she did not respond to medical therapy the power of attorney lawyer states she received amiodarone therapy and therefore [...] one hour before the dentist - Biotin-Silicon Hqch-I-Yvdognfb 5,000 mcg-100 mg- 50 mg tab Take 1 tablet by mouth once daily. No current facility-administered medications for this visit. 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 Overview: Added automatically from request for surgery [id number] Mitral regurgitation 04/06/2018 04/18/2018 Overview: Added automatically from request for surgery [id number] Fibrocystic breast changes 07/11/201507/10 documented as of this encounter (statuses as of 08/05/2021) [facility]12-04[facility] History of Past illness Narrative* Problem Noted Date Resolved Date Rheumatic mitral stenosis 04/06/20182017 Overview: Added automatically from request for surgery [id number] Mitral regurgitation 04/06/2018 04/18/2018 Overview: Added automatically from request for surgery [id number] Fibrocystic breast changes 07/11/201507/10 documented as of this encounter (statuses as of 08/07/2021) [facility]12-04[facility] History of Past illness Narrative* Problem Noted Date Resolved Date Rheumatic mitral stenosis 04/06/20182017 Overview: Added automatically from request for surgery [id number] Mitral regurgitation 04/06/2018 04/18/2018 Overview: Added automatically from request for surgery [id number] Fibrocystic breast changes 07/11/201507/10 documented as of this encounter (statuses as of 09/25/2021) [facility] of Past illness Narrative* Problem Noted Date Resolved Date Rheumatic mitral stenosis 04/06/20182017 Overview: Added automatically from request for surgery [id number] Mitral regurgitation 04/06/2018 04/18/2018 Overview: Added automatically from request for surgery [id number] Fibrocystic breast changes 07/11/201507/10 documented as of this encounter (statuses as of 10/29/2021) [facility] History of Past illness Narrative* Problem Noted Date Resolved Date Rheumatic mitral stenosis 04/06/20182017 Overview: Added automatically from request for surgery [id number] Mitral regurgitation 04/06/2018 04/18/2018 Overview: Added automatically from request for surgery [id number] Fibrocystic breast changes 07/11/201507/10 documented as of this encounter (statuses as of 10/31/2021) [facility] note Author Bud Mckee [facility] Note Date/Time September 14, 2024 10:02 am [facility] Medical Records Department [address] [place] [address] Anesthesia Postop Eval I 09/14/24 1001 MR#: [id number] Acct: [id number] Name: GLORIA MATHEW Rep #:[id number] 8 : 1940 83 From: Bud FELDMAN PCP: Dr. Samantha Anglin MD Status:REG SD C Y Race: C Location: [place] [address] Anesthesia: Postop Eval I Current Vital Signs [...] CRNA Cosigner Signature: Date CC: ~ Signed [facility] Work Phone: Evaluation note* Diagnosis Onset Date [...] acute S/P MVR (mitral valve replacement) acute [facility] Work Phone: Evaluation note* Diagnosis Close exposure to COVID-19 virus- Primary [facility]* Diagnosis halfway current use of anticoagulant Long-term (current) use of 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s Paroxysmal atrial fibrillation (HCC) Atrial fibrillation documented in this encounter [facility] note* Diagnosis halfway current use of anticoagulant Long-term (current) use of 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s Paroxysmal atrial fibrillation (HCC) Atrial fibrillation documented in this encounter [facility] note* Diagnosis Atrial fibrillation, chronic (HCC)- Primary Atrial fibrillation documented in this encounter [facility] note* Diagnosis halfway current use of anticoagulant Long-term (current) use of 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s Paroxysmal atrial fibrillation (HCC) Atrial fibrillation [facility]* Diagnosis Onset Date Resolution Status Fall [...] Presence of permanent cardiac pacemaker May, acute [facility] Work Phone: Evaluation note* Diagnosis Onset Date [...] acute S/P MVR (mitral valve replacement) acute [facility] Work Phone: Evaluation note* Diagnosis Onset Date [...] Presence of permanent cardiac pacemaker May, acute [facility] Work Phone: Evaluation note* Diagnosis Onset Date [...] Presence of permanent cardiac pacemaker May, acute [facility] Work Phone: Evaluation noteNo assessment information available [facility] Work Phone: Evaluation note* Diagnosis Onset Date Resolution Status 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 resolved Acute diverticulitis acute Acute lower gastrointestinal bleeding resolved Transient hypotension resolv ed [facility] Work Phone: Evaluation note* Diagnosis Onset Date Resolution Status Acute diverticulitis acute Acute lower gastrointestinal bleeding resolved Transient hypotension resolv ed Acute diverticulitis acute Bright red blood per rectum acute [facility] Work Phone: Evaluation note* Diagnosis Lumbar stenosis with neurogenic claudication- Primary [facility]No reason for referral information availableWSamaritan [facility] Work Phone: Summary Purpose Family History No Family History Records Found Relationship Condition Age at Onset Recorded Date/T yehuda mother Cardiac disease Unknown Coronary artery disease Unknown Hypertension Unknown father Cardiac disease Unknown Bradycardia Unknown Relationship Condition Age at Onset Recorded Date/T yheuda mother Cardiac disease Unknown Coronary artery disease Unknown Hypertension Unknown Malignant neoplasm of breast Unknown father Cardiac disease Unknown Bradycardia Unknown Malignant neoplasm of colon Unknown Advance Directives No Advanced Directives Records Found Advance Directive Response Recorded Date/ Time Name of Medical Power of Respiratory Support Technician sister May 05, 2021 10:17pm Name of Medical Power of Respiratory Support Technician Naina jaeger May 06, 2021 5:39pm Living Will Yes May 18 5:20am Power of Respiratory Support Technician Yes May 18, 2021 5:20am Documents on File Type Date Recorded Patient 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 Export 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 anation Advance Directive(s) 05/23/2021 3:18 PM Advance Directive(s) 06/02/2018 4:21 PM Advance Directive Response Recorded Date/ Time Living Will Yes May 18 5:20am Power of Respiratory Support Technician Yes May 18, 2021 5:20am Advance Directive Response Recorded Date/ Time Living Will Yes October 05, 2021 8 :14pm Power of Respiratory Support Technician Yes October 05, 2021 8:14pm Advance Directive Response Recorded Date/ Time Name of Medical Power of Respiratory Support Technician Naina jaeger October 05, 2021 11:09pm Living Will Yes October 09, 2021 1 2:58pm Power of Respiratory Support Technician Yes October 09, 2021 12:58pm Advance Directive Response Recorded Date/ Time Name of Medical Power of Respiratory Support Technician Naina jaeger October 05, 2021 11:09pm Name of Medical Power of Respiratory Support Technician Naina jaeger, sister October 09, 2021 12:58pm Living Will Yes October 09, 2021 1 2:58pm Power of Respiratory Support Technician Yes October 09, 2021 12:58pm Documents on File Type Date Recorded Patient Air Export Agent Expl anation Advance Directive(s) 05/23/2021 3:18 PM Advance Directive(s) 06/02/2018 4:21 PM Advance Directive Response Recorded Date/ Time Name of Medical Power of Respiratory Support Technician Naina jaeger sister October 09, 2021 12:58pm Living Will Yes October 09, 2021 1 2:58pm Power of Respiratory Support Technician Yes October 09, 2021 12:58pm Advance Directive Response Recorded Date/ Time Living Will Yes October 09, 2021 1 2:58pm Power of Respiratory Support Technician Yes October 09, 2021 12:58pm Advance Directive Response Recorded Date/ Time Living Will Yes October 09, 2021 1 1:58am Power of Respiratory Support Technician Yes October 09, 2021 11:58am Advance Directive Response Recorded Date/ Time Name of Medical Power of Respiratory Support Technician sister present , POA July 02, 2023 11:54am Living Will Yes June 11:54am Power of Respiratory Support Technician Yes July 02, 2023 11:54am Advance Directive Response Recorded Date/ Time Name of Medical Power of Respiratory Support Technician sister present , POA July 02, 2023 4:33pm Living Will Yes June, 024 4:33pm Power of Respiratory Support Technician Yes July 02, 2023 4:33pm Advance Directive Response Recorded Date/ Time Name of Medical Power of Respiratory Support Technician sister present , POA July 02, 2023 5:33pm Living Will Yes June, 024 5:33pm Power of Respiratory Support Technician Yes July 02, 2023 5:33pm Advance Directive Response Recorded Date/ Time Name of Medical Power of Respiratory Support Technician sister present , POA July 02, 2023 5:33pm Name of Medical Power of Respiratory Support Technician ON FILE September 09, 2023 11:25am Living Will Yes September 09, 2023 11 :25am Power of Respiratory Support Technician Yes September 09, 2023 11:25am Advance Directive Response Recorded Date/ Time Living Will Yes October 28, 2023 6:42pm Do you have a Healthcare Power of Respiratory Support Technician? Yes October 28, 2023 6:42pm Living Will Yes February 02 12:07pm Do you have a Healthcare Power of Respiratory Support Technician? Yes February 03, 2024 12:07pm Living Will Yes April 03 2:14am Do you have a Healthcare Power of Respiratory Support Technician? Yes April 03, 2024 2:14am Living Will Yes May 04 5:45am Do you have a Healthcare Power of Respiratory Support Technician? Yes May 04, 2024 5:45am Living Will Yes June 04 5:37am Do you have a Healthcare Power of Respiratory Support Technician? Yes June 04, 2024 5:37am Living Will Yes July 02, 2024 8:29am Do you have a Healthcare Power of Respiratory Support Technician? Yes July 02, 2024 8:29am Advance Directive Response Recorded Date/ Time Living Will Yes October 28, 2023 6:42pm Do you have a Healthcare Power of Respiratory Support Technician? Yes October 28, 2023 6:42pm Do you have a Healthcare Power of Respiratory Support Technician? Yes September 12, 2024 9:27am Living Will Yes May 04 5:45am Do you have a Healthcare Power of Respiratory Support Technician? Yes May 04, 2024 5:45am Living Will Yes June 04 5:37am Do you have a Healthcare Power of Respiratory Support Technician? Yes June 04, 2024 5:37am Living Will Yes July 02, 2024 8:29am Do you have a Healthcare Power of Respiratory Support Technician? Yes July 02, 2024 8:29am Living Will Yes August 01, 2024 10:43pm Do you have a Healthcare Power of Respiratory Support Technician? Yes August 01, 2024 10:43pm Advance Directive Response Recorded Date/ Time Do you have a Healthcare Power of Respiratory Support Technician? Yes September 12, 2024 9:27am Living Will Yes July 02, 2024 8:29am Do you have a Healthcare Power of Respiratory Support Technician? Yes July 02, 2024 8:29am Living Will Yes August 01, 2024 10:43pm Do you have a Healthcare Power of Respiratory Support Technician? Yes August 01, 2024 10:43pm Living Will Yes August 31, 2024 10:02pm Do you have a Healthcare Power of Respiratory Support Technician? Yes August 31, 2024 10:02pm Advance Directive Response Recorded Date/ Time Living Will Yes October 28, 2023 6:42pm Do you have a Healthcare Power of Respiratory Support Technician? Yes October 28, 2023 6:42pm Do you have a Healthcare Power of Respiratory Support Technician? Yes September 12, 2024 9:27am Living Will Yes August 01, 2024 10:43pm Do you have a Healthcare Power of Respiratory Support Technician? Yes August 01, 2024 10:43pm Living Will Yes August 31, 2024 10:02pm Do you have a Healthcare Power of Respiratory Support Technician? Yes August 31, 2024 10:02pm Advance Directive Response Recorded Date/ Time Living Will Yes October 28, 2023 6:42pm Do you have a Healthcare Power of Respiratory Support Technician? Yes October 28, 2023 6:42pm Do you have a Healthcare Power of Respiratory Support Technician? Yes September 12, 2024 9:27am Living Will Yes August 31, 2024 10:02pm Do you have a Healthcare Power of Respiratory Support Technician? Yes August 31, 2024 10:02pm Advance Directive Response Recorded Date/ Time Living Will Yes October 28, 2023 6:42pm Do you have a Healthcare Power of Respiratory Support Technician? Yes October 28, 2023 6:42pm Living Will Yes August 31, 2024 10:02pm Do you have a Healthcare Power of Respiratory Support Technician? Yes August 31, 2024 10:02pm Chief Complaint [...] (mitral valve replacement) Chief Complaint new implant [facility]/KR 2:00 post [facility]/JAH 1:30 S/O 4WK FU/JAH [...] 7:50am History of adenomatous polyp of colon [facility] 2024 7:50am History of melena August [...] 7:50am History of adenomatous polyp of colon [facility] 2024 7:50am History of melena August 01, 2024 7:5 0am Chief Complaint Admit Date S/O August 25, 2024 3:3 3pm S/O October 07, 2024 12:13 pm Pacer Check Remote October 25, 2024 5:09 am S/O November 09, 2024 12:39 pm ANNUAL IN CLINIC CHECK / POLE INSPECTOR @ 11:15 Nov 10:22am 1 y fu / JAH @ 10:30 December 01, 2024 10: 27am Chief Complaint Admit Date S/O August 25, 2024 3:3 3pm S/O October 07, 2024 12:13 pm Pacer Check Remote October 25, 2024 5:09 am ANNUAL IN CLINIC CHECK / POLE INSPECTOR @ 11:15 Nov 10:22am 1 y fu [...] 9:00 am ANNUAL IN CLINIC CHECK / POLE INSPECTOR @ 11:15 Nov 10:22am 1 y fu / JAH @ 10:30 December 01, 2024 10: 27am S/O December 01, 2024 11:5 3am Chief Complaint Admit Date S/O October 07, 2024 12:13 pm Pacer Check Remote October 25, 2024 5:09 am Pacer Check Remote December 01, 2024 9:00 am ANNUAL IN CLINIC CHECK / POLE INSPECTOR @ 11:15 Nov 10:22am 1 y fu / JAH @ 10:30 December 01, 2024 10: 27am S/O December 01, 2024 11:5 3am S/O December 23, 2024 2: 20pm Chief Complaint Admit Date S/O October 07, 2024 12:13 pm Pacer Check Remote October 25, 2024 5:09 am Pacer Check Remote December 01, 2024 9:00 am ANNUAL IN CLINIC CHECK / POLE INSPECTOR @ 11:15 Nov 10:22am 1 y fu [...] Atrial fibrillation, chronic (HCC) Procedures CONSULT TO [facility] Jean-Pierre Perez MD [address] [place] [address] Referral ID Status Reason Start Date Expiration Date Visits Requested Visits Authorized [id number] Ref Not Required PCP Requested Referral 10/29/2021 01/27/2022 1 1 Additional Source Comments INFORMATION SOURCE (unrecogn ized section and content) DATE CREATED AUTHOR 11/05/2017 [facility] DATE CREATED AUTHOR AUTHOR'S ORGANIZ ATION 09/16/2020 [facility] DATE CREATED AUTHOR AUTHOR'S ORGANIZ ATION 08/06/2021 [facility] DATE CREATED AUTHOR AUTHOR'S ORGANIZ ATION 11/01/2021 [facility] DATE CREATED AUTHOR AUTHOR'S ORGANIZ ATION 06/11/2022 [facility] DATE CREATED AUTHOR AUTHOR'S ORGANIZ ATION 05/07/2023 [facility] DATE CREATED AUTHOR AUTHOR'S ORGANIZ ATION 10/26/2023 [facility] EPIC DATE CREATED AUTHOR AUTHOR'S [...] or prosecute any alcohol or drug abuse patient.[facility] Hospital[facility] the event this information is protected by the Federal Confidentiality of Alcohol and Drug Abuse Patient Records regulations: The Federal rules restrict any use of the information to criminally investigate or prosecute any alcohol or drug abuse patient.[facility] HospitalIn the event this information is protected by the Federal Confidentiality of Alcohol and Drug Abuse Patient Records regulations: The Federal rules restrict any use of the information to criminally investigate or prosecute any alcohol or drug abuse patient.[facility] HospitalIn the event this information is protected by the Federal Confidentiality of Alcohol and Drug Abuse Patient Records regulations: The Federal rules restrict any use of the information to criminally investigate or prosecute any alcohol or drug abuse patient.[facility] HospitalIn the event this information is protected by the Federal Confidentiality of Alcohol and Drug Abuse Patient Records regulations: The Federal rules restrict any use of the information to criminally investigate or prosecute any alcohol or drug abuse patient.[facility] Reason for Visit (unrecogniz ed section [...] treat Saroj Vallecillo MD [address] [place] [address] Cameron Coyle MD [address] [place] [address] Referral ID Status Reason Start Date Expiration Date Visits Re quested Visits Authorized [id number] Closed 05/15/2022 11/11/2022 1 1 Care Teams (unrecognized sec tion and content) Licensed Funeral Director And Embalmer Relationship Specialty Start Date End Date Saroj Avelar MD [address] [place] [address] PCP - General Internal Medicine 07/11/15 Jean-Pierre Perez MD [address] [id number] Cardiology 04/30/18 Licensed Funeral Director And Embalmer Relationship Specialty Start Date End Date Di Saroj Hills MD [address] [place] [address] PCP - General Internal Medicine 07/11/15 Jean-Pierre Perez MD [address] [address] Cardiology 04/30/18 Licensed Funeral Director And Embalmer Relationship Specialty Start Date End Date Saroj Avelar MD [address] [place] [address] PCP - General Internal Medicine 07/11/15 Jean-Pierre Perez MD [address] [id number] Cardiology 04/30/18 Licensed Funeral Director And Embalmer Relationship Specialty Start Date End Date Saroj Avelar MD [address] [place] [address] PCP - General Internal Medicine 07/11/15 Jean-Pierre Perez MD [address] [place] [address] Cardiology 04/30/18 Licensed Funeral Director And Embalmer Relationship Specialty Start Date End Date Saroj Avelar MD [address] [facility] [place] [address] PCP - General Internal Medicine 07/11/15 Jean-Pierre Perez MD [address] [place] [address] Cardiology 04/30/18 Team Status: Active Member Role Status Apolinar VALLECILLO Family Provider Active Saroj Vallecillo Primary Care Provider Active Team Status: Inactive Member Role Status Dates Hermelinda Primary Care Physician Referring Provider Active Speedy Bacon AIR ANALYST, AIR ANALYST-C Attending Provider Active Team Status: Inactive Member [...] Status: Inactive Member Role Status Speedy Bacon AIR ANALYST, AIR ANALYST-C Attending Provider Active RUTH ANN KYLE Primary [...] Status: Inactive Member Role Status Speedy Bacon AIR ANALYST, AIR ANALYST-C Attending Provider Active Dr. Denise Vallecillo MD [...] Dr. Avtar Desir MD Attending Provider Active Licensed Funeral Director And Embalmer Relationship Specialty Start Date End Date Saroj Vallecillo MD [address] [facility] [place] [address] PCP - General 10/28/17 Team Status: Inactive [...] 2024 End: June 02, 2024 Speedy Bacon AIR ANALYST, AIR ANALYST-C Attending Provider Active S tart: June 02, 2024 End: June 02, 2024 Team Status: Inactive Member Role Status Apolinar Anglin MD Primary Care Provider Active St art: June 17, 2024 End: June 17, 2024 Speedy Bacon AIR ANALYST, AIR ANALYST-C Attending Provider Active S tart: June 17, 2024 End: June 17, 2024 Speedy Bacon AIR ANALYST, AIR ANALYST-C Referring Provider Active S tart: June 17, [...] Member Role/Relationship Status Dates RUTH ANN ARMENDARIZ [facility] Provider Active Start: October 07, 2024 End: [...] Team Status: Inactive Member Role/Relationship Status Dates [facility] Family Provider Active Start: October 07, [...] 2024 Karla Hong Attending Provider Active Start: [id number] End: December 01, 2024 Team Status: Inactive [...] BE BASED ON THE PRIMARY CLINICAL RECORDS. [facility] [facility]. provides no warranty or guarantee of the accuracy or completeness of information in this document.
== END | disposition home or self-care (01) ==
LOC: OPBI 15:34
PROVIDERS: PCP Family Medicine; Referring Provider Family Medicine; Visit Provider Family Medicine
DX: Z12.31 Encounter for screening mammogram for malignant neoplasm of breast (principal)
CPT/HCPCS: 77063; 77067

== ENCOUNTER 2025-05-01 15:29 | Outpatient (RCR) | payer MEDICARE, SELFPAY ==
[2025-04-06 16:52] LABS: INR Fingerstick 2.4
[2025-05-01 15:38] LABS: INR Fingerstick 2.6
== END 2025-05-01 18:00 | disposition home or self-care (01) ==
LOC: LAB 15:29
PROVIDERS: PCP Family Medicine; Referring Provider Internal Medicine Cardiovascular Disease; Visit Provider Internal Medicine Cardiovascular Disease
DX: Z79.01 Long term (current) use of 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s (principal)
CPT/HCPCS: 36416; 85610